=== PATIENT | female | born 1965 | race Caucasian/White ===

== ENCOUNTER 2020-12-08 13:04 | Emergency (ER) | payer SELFPAY ==
--- OUTSIDE RECORDS SUMMARY | 2020-12-08 13:06 | XMS REPORT | Continuity of Care Document ---
:1965 Author Organization [facility] t Address [address] [place] [address] Care Team Providers Name Role Phone Asked, Pcp Primary Care Physician Unavailable Doctor Unassigned, Name Attending Clinician Unavailable Terrence NULL, E Attending Clinician Aquiles NULL Attending Clinician Patricia FRANZ Attending Clinician Problems Condition Condition Condition Status Onset Resolution Last Treating Co mments Source Name Details Category Date Date Treatment Clinician Date Cirrhosis Cirrhosis Disease Active [facility] 8-14 [facility] 00:00: st 00 Hepatitis Hepatitis Disease Active [facility] B B 01-13 [facility] 00:00: st 00 Hepatitis Hepatitis Disease Active [facility] C C 01-13 [facility] 00:00: st 00 Right Right Disease Active [facility] lower lower 01-11 [facility] quadrant quadrant 00:00: st abdominal abdominal 00 pain pain Type 2 Type 2 Disease Active [facility] diabetes diabetes 01-11 [facility] i mellitus mellitus 00:00: st without without 00 complicati complicati on on Allergies, Adverse Reactions, Alerts This patient has no known allergies or adverse reactions. Social History Social Habit Start Date Stop Date Quantity Comments Source History of tobacco Cigarette Smoker [facility] use [facility] Cigarettes smoked 2016-01-12 2016-01-12 [facility] current (pack per 00:00:00 00:00:[address] ) - Reported Cigarette 2016-01-12 2016-01-12 [facility] pack-years 00:00:00 00:00:00 [facility] Alcohol intake 2016-01-12 2016-01-12 Current [facility] 00:00:00 00:00:00 non-drinker of [facility] alcohol (finding) Sex Ass[birth year] At [birth year] [facility] 00:00:00 00:00:00 [facility] Smoking Status Start Date Stop Date Source Current every day smoker 2016-01-12 00:00:00 Norman Lopezist Medications Ordered Filled Start Stop Current Ordering Indication Dosage Frequency Signature Comments Components Source Medication Medication Date Date Medication? Clinician (SIG) Name Name metFORMIN Yes 1000mg Q.5D Take 1,000 [place] (GLUCOPHAGE 8-14 mg by [facility] ) 1000 MG 11:59: mouth 2 st tablet 10 (two) times a day with meals. gabapentin Yes 300mg QD Take 300 [place] (NEURONTIN) 8-14 mg by [facility] 300 MG 11:59: mouth st capsule 10 daily. gabapentin Yes 600mg QD Take 600 [place] (NEURONTIN) 8-14 mg by [facility] 600 MG 11:59: mouth st tablet 10 nightly. methocarbam Yes 750mg Q.5D Take 750 [place] ol 8-14 mg by [facility] (ROBAXIN) 11:59: mouth 2 st 750 MG 10 (two) tablet times a day. insulin NPH Yes 40U Q.5D Inject 40 [place] and regular 8-14 Units [facility] human 11:59: under the st (HumuLIN 10 skin 2 70/30) 100 (two) unit/mL times a (70-30) day with injection meals. lactulose Yes 10g [id number] Take 10 g [place] 10 gram/15 8-14 [id number] by mouth 3 [facility] mL solution 11:59: 3D (three) st 10 times a day. omeprazole Yes 20mg QD Take 20 mg [place] (PriLOSEC) 8-14 by mouth Metho di 20 MG 11:59: daily. st capsule 10 multivitami 2015- Yes 1{tbl} QD Take 1 [place] n 8-14 tablet by [facility] (THERAGRAN) 11:59: mouth st tablet 10 daily. ibuprofen Yes 800mg Q6H Take 800 [facility] (ADVIL,MOTR 8-14 mg by [facility] IN) 800 MG 11:59: mouth st tablet 10 every 6 (six) hours as needed for mild pain. traMADol Yes 50mg Q6H Take 50 mg [facility] (ULTRAM) 50 8-14 by mouth Meth selin mg tablet 11:59: every 6 st 10 (six) hours as needed for moderate pain. UNKNOWN TO Yes 1{tbl} QD Take 1 [facility] PATIENT 8-14 tablet by [facility] 11:59: mouth st 10 nightly. Cholestero l Medication Immunizations Ordered Immunization Filled Immunization Date Status Commen ts Source Name Name [employer] SARS-CoV-2 2020-08-12 Completed MD And erson Vaccination 00:00:00 Procedures This patient has no known procedures. Plan of Care Planned Activity Planned Date Details Comments Source Future Scheduled 2020-12-31 INFLUENZA VACCINE [place] [facility] 00:00:00 [code = INFLUENZA VACCINE] Future Scheduled 2017-12-23 BREAST CANCER [facility] Test 00:00:00 SCREENING [code = BREAST CANCER SCREENING] Future Scheduled 2017-12-23 COLONOSCOPY SCREENING [place] [facility] Test 00:00:00 [code = COLONOSCOPY SCREENING] Future Scheduled 2017-12-23 SHINGLES VACCINES [place] [facility] 00:00:00 (#1) [code = SHINGLES VACCINES (#1)] Future Scheduled 1988-12-23 Screening for [facility] Test 00:00:00 malignant neoplasm of cervix (procedure) [code = 374603725] Future Scheduled 1979 COVID-19 VACCINE (1) [facility] Test 00:00:00 [code = COVID-19 VACCINE (1)] Encounters Start End Encounter Admission Attending Care Care Encounter Source Date/Time Date/Time Type Type Clinicians Facility Department ID 2020-12-01 2020-12-01 Orders Doctor ELODIA [id number] 00:00:00 00:00:00 Only Unassigned, MAGGIE [id number] [place] [facility] [id number] 2020-11-21 2020-11-21 [facility] [id number] 00:00:00 00:00:00 Management Jourdan E PRIMARY [id number] CARE [id number] [facility] [id number] 2020-11-19 2020-11-19 [facility] [id number] 08:18:00 08:50:00 Yazan Kapoor [id number] [place] [id number] [place] [id number] 2020-11-19 2020-11-19 Orders Doctor ELODIA [id number] 00:00:00 00:00:00 Only Unassigned, MAGGIE [id number] [place] [facility] [id number] 2020-11-18 2020-11-18 [facility] [id number] 00:00:00 00:00:00 Management Jourdan E PRIMARY [id number] CARE [id number] [facility] [id number] 2020-11-06 2020-11-06 Transition Erin Gomez [id number] 00:00:00 00:00:00 of Care Leti Sharma [id number] [place] [id number] 2020-08-12 2020-08-12 Outpatient [facility] [id number] 12:07:04 12:07:04 Fred o n Results This patient has no known results.
[2020-12-08 15:07] LABS: Basophils % 0.4 % (0-1.3); Hematocrit 27.4 % (36.0-45.0); Lymphocytes % 15.9 % (15.3-44.8); MPV 10.1 fL (7.6-11.3); RBC Red Blood Cell Count 3.36 M/uL (3.86-4.86)
[2020-12-08] MEDS ORDERED: MORPHINE 4 MG/ML SYR ONE ×2 (15:20→20:40)
[2020-12-08] MEDS ORDERED: ONDANSETRON 4 MG/2 ML VIAL ONE ×2 (15:20→16:32)
[2020-12-08] MEDS ORDERED: PANTOPRAZOLE 40 MG INJ ONE ×2 (15:21→16:52)
[2020-12-08 15:44] LABS: Albumin 3.4 g/dL (3.4-5.0); Bilirubin Direct 0.1 mg/dL (0-0.2); Bilirubin Total 0.4 mg/dL (0.2-1.0)
[2020-12-08 16:37] LABS: Anisocytosis 2+; Blood Morphology Comment NOTED (NOT SEEN); Platelet Estimate ADEQ; Polychromasia 1+; White Blood Cell Scan OK (OK)
[2020-12-08] MEDS ORDERED: NA CHLORIDE 0.9% 1,000 ML ONE (16:42)
[2020-12-08] MEDS ORDERED: NA CHLORIDE 0.9% 250 ML ONE ×2 (16:52→19:06)
--- NOTE | 2020-12-08 18:32 | EDPHYS ---
Physician Documentation [facility] Name: Cheeynne Mcgill Age: 54 yrs Sex: Female : 1965 Arrival Date: 12/08/2020 Time: 13:11 Bed 3 Private MD: ED Physician Michael Perkins HPI: 12/08 13:32 This 54 yrs old Female presents to ER via EMS with complaints of Vomiting - jmm blood. 13:32 The patient presents to the emergency department with nausea, vomiting. Onset: The jmm symptoms/episode began/occurred acutely, today. Possible causes: flare up of bowel problem. The symptoms are aggravated by nothing. The symptoms are alleviated by nothing. This is a 54 year old female with a history of DM, cirrhosis, that presents to the ED with an episode of vomiting blood. This has happened once before. Denies dark stool. Patient is also complains of lower back pain after the episode of vomiting. . Historical: - Allergies: 13:14 No Known Allergies; zb - Home Meds: 13:14 metformin 1,000 mg Oral tr24 2 tabs once daily [Active]; Humulin 70/30 100 unit/mL zb (70-30) Sub-Q susp 80 unit twice a day [Active]; - PMHx: 13:14 Diabetes - NIDDM; Hepatitis; low platelets; splenomegaly; Cirrhosis of liver; zb - Immunization history:: Adult Immunizations up to date, Client reports receiving the 2nd dose of the Covid vaccine, Date received: October 2020 Received [facility] . - Social history:: Smoking status: Reported history of juuling and/or vaping. ROS: 13:32 Constitutional: Negative for fever, chills, and weight loss, Cardiovascular: Negative jmm for chest pain, palpitations, and edema, Respiratory: Negative for shortness of breath, cough, wheezing, and pleuritic chest pain. 13:32 Abdomen/GI: Positive for vomiting, hematemesis. 13:32 Back: Positive for pain with movement. 13:32 All other systems are negative. Exam: 13:32 Constitutional: This is a well developed, well nourished patient who is awake, alert, jmm and in no acute distress. Head/Face: atraumatic. Eyes: EOMI, no conjunctival erythema appreciated ENT: Moist Mucus Membranes Neck: Trachea midline, Supple Chest/axilla: Normal chest wall appearance and motion. Cardiovascular: Regular rate and rhythm. No edema appreciated Respiratory: Normal respirations, no respiratory distress appreciated Abdomen/GI: Non distended, soft Back: Normal ROM Skin: General appearance color normal MS/ Extremity: Moves all extremities, no obvious deformities appreciated, no edema noted to the lower extremities Neuro: Awake and alert, normal gait Psych: Behavior is normal, Mood is normal, Patient is cooperative and pleasant Vital Signs: 13:11 BP 105 / 62; Pulse 82; Resp 18; Temp 97.2; Pulse Ox 100% on R/A; Weight 61.23 kg; zb Height 4 ft. 10 in. (147.32 cm); Pain 8/10; 13:30 BP 105 / 62; Pulse 81; Resp 18; Pulse Ox 100% on R/A; zb 14:30 BP 125 / 80; Pulse 84; Resp 18; Pulse Ox 100% on R/A; zb 15:20 BP 122 / 89; Pulse 87; Resp 16; Pulse Ox 100% ; zb 16:00 BP 96 / 69 Supine; Pulse 85; Resp 16; Pulse Ox 100% ; zb 16:04 BP 73 / 51 Sitting; Pulse 89; Resp 16; Pulse Ox 100% on R/A; zb 16:07 BP 80 / 64 Standing; Pulse 86; Resp 16; Pulse Ox 99% on R/A; zb 17:56 BP 99 / 88; Pulse 94; Resp 16; Pulse Ox 100% on R/A; zb 19:00 BP 149 / 99; Pulse 88; Resp 18; Pulse Ox 99% on R/A; zb 20:00 BP 114 / 83; Pulse 86; Resp 16; Pulse Ox 99% on R/A; zb 07/10 00:00 BP 119 / 86; Pulse 97; Resp 16; Pulse Ox 99% on R/A; rr5 01:06 BP 126 / 90; Pulse 89; Resp 16; Pulse Ox 98% on R/A; rr5 03:07 BP 117 / 66; Pulse 85; Resp 16; Pulse Ox 98% on R/A; ak2 06:07 BP 125 / 75; Pulse 93; Resp 14; Pulse Ox 97% on R/A; ak2 08:23 BP 113 / 63; Pulse 96; Resp 19; Pulse Ox 98% on R/A; ae4 10:51 BP 121 / 70; Pulse 95; Resp 14; Pulse Ox 98% on R/A; Pain 0/10; ap3 11:34 BP 112 / 85; Pulse 96; Pulse Ox 98% on R/A; ap3 12/08 13:11 Body Mass Index 28.21 (61.23 kg, 147.32 cm) zb Procedures: 12/08 18:33 Central Line: the site was prepped with Betadine, a triple lumen catheter was inserted, jackson in the right femoral vein, in 1 attempts. placement was verified, by blood return, the site was dressed with using sterile technique, the patient tolerated the procedure, well. MDM: 13:34 Patient medically screened. jackson 16:17 Data reviewed: vital signs, nurses notes. Counseling: I had a detailed discussion with jackson the patient and/or guardian regarding: the historical points, exam findings, and any diagnostic results supporting the discharge/admit diagnosis, lab results, the need to transfer to another facility. 18:30 ED course: I discussed the patient with Dr. Wilson whom accepted transfer. . [facility] 12/09 01:45 ED course: Transfer was initially accepted by Dr. Rivera out of [facility]. I jackson then received a call approx 3 hours later by another hospitalist Dr. Amos whom declined admission due to no nephrology. FORMERLY [facility], [facility], [facility], and [facility] ICU's. . 01:53 Transition of care: After a detail discussion of the patient's case, care is [facility] transferred to Michael Perkins MD. 02:27 ED course: Report given to Delfina Cardoza NP at [facility] in [address] Asked to initiate Bicarb drip which has been ordered. Now awaiting admin approval, then to arrange for transportation. . 12/08 13:26 Order name: Basic Metabolic Panel [facility] 12/08 13:26 Order name: CBC with Diff [facility] 12/08 13:26 Order name: Hepatic Function [facility] 12/08 13:26 Order name: Lipase [facility] 12/08 13:26 Order name: Type And Screen [facility] 12/08 13:27 Order name: Basic Metabolic Panel; Complete Time: 15:59 EDMS 12/08 13:27 Order name: Liver (Hepatic) Function; Complete Time: 15:59 EDMS 12/08 13:27 Order name: CBC with Automated Diff; Complete Time: 16:42 EDMS 12/08 13:27 Order name: Lipase; Complete Time: 15:59 EDMS 12/08 15:12 Order name: Guiac; Complete Time: 18:19 em1 12/08 16:37 Order name: CBC Smear Scan; Complete Time: 16:42 EDMS 12/08 17:48 Order name: Packed RBC Leukored EDTN 12/08 21:10 Order name: BMP; Complete Time: 22:34 m 12/08 21:42 Order name: SARS-COV-2 RT PCR; Complete Time: 21:48 EDMS 12/09 01:55 Order name: CBC with Diff; Complete Time: 06:17 rr5 12/09 02:20 Order name: CBC Smear Scan; Complete Time: 06:17 EDMS 12/09 05:37 Order name: CBC with Diff; Complete Time: 06:17 rr5 12/09 06:24 Order name: Chem 7; Complete Time: 07:43 em 12/09 07:48 Order name: Blood Culture Adult (2) jr8 12/08 13:26 Order name: IV Saline Lock; Complete Time: 14:57 [facility] 12/08 13:26 Order name: Labs collected and sent; Complete Time: 14:57 [facility] 12/08 13:26 Order name: Misc. Order: gown patient; Complete Time: 15:19 [facility] 12/08 15:46 Order name: Orthostatic Blood Pressure; Complete Time: 16:06 [facility] 12/08 17:28 Order name: Central Line Kit; Complete Time: 18:13 [facility] 12/08 17:37 Order name: Transfuse; Complete Time: 17:56 ss 12/09 02:27 Order name: NPO; Complete Time: 02:44 la1 Administered Medications: 12/08 15:11 Drug: morphine 4 mg {Note: RASS +1.} Route: IVP; Site: right wrist; zb 15:30 Follow up: Response: No adverse reaction; No change in condition; Pain is decreased; zb RASS: Alert and Calm (0) 15:11 Drug: Zofran (Ondansetron) 4 mg Route: IVP; Site: right wrist; zb 15:30 Follow up: Response: No adverse reaction; Marked relief of symptoms; Nausea is decreasedzb 15:11 Drug: ProTONIX (pantoprazole) 40 mg Route: IVP; Site: right wrist; zb 15:30 Follow up: Response: No adverse reaction; Marked relief of symptoms zb 16:24 Drug: NS 0.9% 1000 ml Route: IV; Rate: 1 bolus; Site: right wrist; zb 18:41 Follow up: Response: No adverse reaction; IV Status: Completed infusion; IV Intake: zb 1000ml 16:24 Drug: Zofran (Ondansetron) 4 mg Route: IVP; Site: right wrist; zb 16:55 Follow up: Response: No adverse reaction; Marked relief of symptoms; Nausea is decreasedzb 16:30 Drug: ProTONIX (pantoprazole) 8 mg/hr Route: IV; Rate: 25 ml/hr; Site: right wrist; zb 12/09 12:09 Follow up: IV Status: Infusion continued upon transfer ap3 12/08 20:21 Drug: morphine 4 mg {Note: RASS +1.} Route: IVP; Site: right femoral; zb 21:57 Follow up: Response: No adverse reaction; Marked relief of symptoms; Pain is decreased; zb RASS: Alert and Calm (0) 21:10 CANCELLED (Duplicate Order): Kayexalate (polystyrene) 60 grams PO once jmm 22:57 Drug: Calcium Gluconate 1 grams Route: IVPB; Infused Over: 60 mins; Site: right femoral;zb 12/09 00:01 Follow up: Response: No adverse reaction; IV Status: Completed infusion; IV Intake: 50mlzb 12/08 22:57 Drug: Albuterol 2.5 mg Route: Inhalation; zb 22:57 Drug: Insulin Regular Human 10 units {Co-Signature: em (Syed Portillo RN).} Route: IVP; zb Site: right femoral; 23:44 Follow up: Response: No adverse reaction zb 22:57 Drug: D50W 50 ml Route: IVP; Site: right femoral; zb 23:44 Follow up: Response: No adverse reaction zb 23:27 Drug: Kayexalate (polystyrene) 60 grams Route: PO; zb 23:44 Follow up: Response: No adverse reaction zb 07/10 00:02 Drug: Albuterol 2.5 mg Route: Inhalation; zb 00:02 Follow up: Response: No adverse reaction; No change in condition zb : Follow up: Response: No adverse reaction zb 00:02 Follow up: Response: No adverse reaction zb 00:02 Drug: Albuterol 2.5 mg Route: Inhalation; zb 00:20 Drug: Zofran (Ondansetron) 4 mg Route: IVP; Site: right femoral; em 01:29 Follow up: Response: No adverse reaction; Marked relief of symptoms; Pain is decreased em 02:05 Drug: Octreotide Infusion (50 mcg/hr) - (Octreotide 500 mcg, NS 0.9% 500 ml) Route: IV; ak2 Rate: 50 ml/hr; Site: right femoral; 02:05 Drug: Octreotide Infusion (50 mcg/hr) - (Octreotide 500 mcg, NS 0.9% 500 ml) Route: IV; ae4 Rate: 50 ml/hr; Site: right femoral; 12:09 Follow up: IV Status: Infusion continued upon transfer ap3 02:43 Drug: D5W 1000 ml, Sodium Bicarbonate 150 mEq Route: IV; Rate: 100 calculated rate; rr5 Site: right forearm; 03:06 Drug: Octreotide 50 mcg Route: IV; Rate: calculated rate; Site: right femoral; ak2 08:06 Drug: Rocephin (cefTRIAXone) 1 grams Route: IV; Rate: calculated rate; Site: right ap3 wrist; 08:07 Follow up: IV Status: Completed infusion ap3 Disposition: 12/10 00:03 Co-signature as Attending Physician, Michael Perkins MD. [email or web address] Disposition Summary: 12/08/20 18:31 Transfer Ordered Transfer Location: Other Acute Care Facility [facility] Reason: Higher level of care jmm Condition: Stable jmm Problem: new jmm Symptoms: are unchanged jmm Accepting Physician: Delfina Cardoza STRAIGHT LINE EDGER(12/09/20 12:09) ap3 Diagnosis - Hematemesis jmm - Acute Kidney Injury jmm Forms: - Medication Reconciliation Form jmm - SBAR form jmm Signatures: Dispatcher [employer] Andrew Alaniz PA PA jmm Munoz, Edgar, RN RN Elida Yanes RN RN ss Luis Aguilar PA PA jr8 Saurabh Mayes, [employer]-C [employer]-Cla1 Nancy Allen, RN RN ap3 Carlos Monge, RN RN rr5 Gabriel Gordillo, MARIA M RN ae4 Michael Perkins MD MD 7 Carolina Medina RN RN zb Aris Hargrove [facility] Syed Portillo RN em Corrections: (The following items were deleted from the chart) 12/08 17:48 17:33 PACKED RBC LEUKORED -1+BB.LAB.BRZ ordered. EDMS EDMS 17:48 17:33 ABO/RH typing ordered. EDMS EDMS 17:48 17:33 Antibody Screen ordered. EDMS EDMS 18:32 18:31 Dr. Sheik paz [facility] 18:38 18:30 PACKED RBC LEUKORED -1+BB.LAB.BRZ ordered. EDMS EDMS 18:38 18:30 ABO/RH typing ordered. EDMS EDMS 18:38 18:30 Antibody Screen ordered. EDMS EDMS 20:35 16:34 CORONAVIRUS+MR.LAB.BRZ ordered. EDMS EDMS 21:10 21:07 Kayexalate (polystyrene) 60 grams PO once ordered. jackson paz 12/09 01:39 01:32 PACKED RBC LEUKORED -1+BB.LAB.BRZ ordered. EDMS EDMS 01:39 01:32 ABO/RH typing ordered. EDMS EDMS 01:39 01:32 Antibody Screen ordered. EDMS EDMS 02:28 12/08 18:32 Dr. Sheik paz la1 12/09 12:09 02:28 Delfina Cardoza NP la1 ap3
--- NOTE | 2020-12-08 18:32 | ER ---
Nurse's Notes [facility] Name: Cheyenne Mcgill Age: 54 yrs Sex: Female : 1965 Arrival Date: 12/08/2020 Time: 13:11 Bed 3 Private MD: Diagnosis: Hematemesis;Acute Kidney Injury Presentation: 12/08 13:11 Chief complaint: EMS states: Patient started vomiting blood about 1 hours ago. Called [facility] EMS. patient states this has happen before unsure of what cause it before. Not currently vomiting at this time. Coronavirus screen: At this time, the client does not indicate any symptoms associated with coronavirus-19. Ebola Screen: No symptoms or risks identified at this time. Initial Sepsis Screen: Does the patient meet any 2 criteria? No. Patient's initial sepsis screen is negative. Does the patient have a suspected source of infection? No. Patient's initial sepsis screen is negative. Risk Assessment: Do you want to hurt yourself or someone else? Patient reports no desire to harm self or others. Onset of symptoms was December 08, 2020. 13:11 Acuity: ABDULKADIR 3 zb 13:11 Method Of Arrival: EMS: [facility] zb 13:23 Chief complaint: spoke to family patient has history of vomiting blood. patient is zb suppose to have an endoscopy next week for some time of banding. last episode of vomiting blood was a couple mths ago. Patient PCP is Dr. Jourdan Ocampo. 12/09 02:26 Acuity: ABDULKADIR 2 em Triage Assessment: 12/08 13:24 General: Appears in no apparent distress. uncomfortable, Behavior is calm, cooperative, zb appropriate for age. Pain: Complains of pain in back and abdomen Pain currently is 8 out of 10 on a pain scale. Quality of pain is described as aching, tender, Pain began 2-weeks ago Alleviated by nothing. EENT: No deficits noted. Neuro: Level of Consciousness is awake, alert, obeys commands, Oriented to person, place, time, situation. Cardiovascular: Patient's skin is warm and dry. Respiratory: Airway is patent. GI: Abdomen is round Bowel sounds present X 4 quads. Abdomen is tender to palpation in right upper quadrant and right lower quadrant Reports lower abdominal pain, upper abdominal pain, diarrhea, bloody stool, nausea, vomiting. : No signs and/or symptoms were reported regarding the genitourinary system. Derm: Bruising that is dark purple, on abdomen. Musculoskeletal: Range of motion: intact in all extremities. Historical: - Allergies: 13:14 No Known Allergies; zb - Home Meds: 13:14 metformin 1,000 mg Oral tr24 2 tabs once daily [Active]; Humulin 70/30 100 unit/mL zb (70-30) Sub-Q susp 80 unit twice a day [Active]; - PMHx: 13:14 Diabetes - NIDDM; Hepatitis; low platelets; splenomegaly; Cirrhosis of liver; zb - Immunization history:: Adult Immunizations up to date, Client reports receiving the 2nd dose of the Covid vaccine, Date received: October 2020 Received [employer] . - Social history:: Smoking status: Reported history of juuling and/or vaping. Screenin:26 Abuse screen: Denies threats or abuse. Denies injuries from another. Nutritional zb screening: No deficits noted. Tuberculosis screening: No symptoms or risk factors identified. Fall Risk None identified. Assessment: 14:00 Reassessment: Patient appears in no apparent distress at this time. Patient and/or zb family updated on plan of care and expected duration. Pain level reassessed. Patient is alert, oriented x 3, equal unlabored respirations, skin warm/dry/pink. 15:00 Reassessment: Patient appears in no apparent distress at this time. Patient and/or zb family updated on plan of care and expected duration. Pain level reassessed. Patient is alert, oriented x 3, equal unlabored respirations, skin warm/dry/pink. 16:00 Reassessment: Patient appears in no apparent distress at this time. Patient and/or zb family updated on plan of care and expected duration. Pain level reassessed. Patient is alert, oriented x 3, equal unlabored respirations, skin warm/dry/pink. family at bedside. 17:00 Reassessment: Patient appears in no apparent distress at this time. Patient and/or zb family updated on plan of care and expected duration. Pain level reassessed. Patient is alert, oriented x 3, equal unlabored respirations, skin warm/dry/pink. family at bedside. Reassessment: family at bedside. 17:57 Reassessment: Patient appears in no apparent distress at this time. Patient and/or zb family updated on plan of care and expected duration. Pain level reassessed. Patient is alert, oriented x 3, equal unlabored respirations, skin warm/dry/pink. family at bedside. ecp at bedside placing central line. patient signed consent for for blood and central line. 18:30 Reassessment: Patient appears in no apparent distress at this time. Patient and/or zb family updated on plan of care and expected duration. Pain level reassessed. Patient is alert, oriented x 3, equal unlabored respirations, skin warm/dry/pink. IV medication infusing. 19:31 Reassessment: Patient appears in no apparent distress at this time. Patient and/or zb family updated on plan of care and expected duration. Pain level reassessed. Patient is alert, oriented x 3, equal unlabored respirations, skin warm/dry/pink. IV medication and blood infusing at this time. 20:15 Reassessment: Patient appears in no apparent distress at this time. Patient and/or zb family updated on plan of care and expected duration. Pain level reassessed. Patient is alert, oriented x 3, equal unlabored respirations, skin warm/dry/pink. blood infusing c/o pain. notified ecp. medication given. 21:15 Reassessment: Patient appears in no apparent distress at this time. Patient and/or zb family updated on plan of care and expected duration. Pain level reassessed. Patient is alert, oriented x 3, equal unlabored respirations, skin warm/dry/pink. family at bedside. blood infusing. 22:30 Reassessment: Patient appears in no apparent distress at this time. Patient and/or zb family updated on plan of care and expected duration. Pain level reassessed. Patient is alert, oriented x 3, equal unlabored respirations, skin warm/dry/pink. family remains at bedside. 23:48 Reassessment: Patient appears in no apparent distress at this time. Patient and/or zb family updated on plan of care and expected duration. Pain level reassessed. Patient is alert, oriented x 3, equal unlabored respirations, skin warm/dry/pink. family remains at bedside. IV protonix drip continues to infuse. no c/o pain at this time. waiting for transfer. 12/09 00:15 Reassessment: pt had an episode of vomiting, dark blood noted, provider notified. em 01:20 Reassessment: Patient and/or family updated on plan of care and expected duration. Pain em level reassessed. Patient is alert, oriented x 3, equal unlabored respirations, skin warm/dry/pink. Patient states feeling better. 03:07 Reassessment: Patient and/or family updated on plan of care and expected duration. Pain ak2 level reassessed. 03:56 General: [facility], maria m bahena. ak2 05:35 Reassessment: charge nurse relayed the Hgb to hospitalist with order to hold for now rr5 the 2nd unit, will repeat the CBC 4 hours from the last CBC result. 06:07 Reassessment: Patient and/or family updated on plan of care and expected duration. Pain ak2 level reassessed. 08:28 Reassessment: nurse attempted report to receiving facility. Nurse spoke to MARIA M Cheema for ap3 the report. [place] through the report, the receiving nurse stated that they do not receive patients with femoral lines and would have to call me back. Charge nurse updated. 08:52 Reassessment: Nurse Piece Dyer[facility] called via telephone to report ae4 that "hopefully within the next 30 minutes" there will be a new room assignment for the patient and that she will call back when the room is assigned. 11:25 General: report called to [facility]. ap3 Vital Signs: 12/08 13:11 BP 105 / 62; Pulse 82; Resp 18; Temp 97.2; Pulse Ox 100% on R/A; Weight 61.23 kg; zb Height 4 ft. 10 in. (147.32 cm); Pain 8/10; 13:30 BP 105 / 62; Pulse 81; Resp 18; Pulse Ox 100% on R/A; zb 14:30 BP 125 / 80; Pulse 84; Resp 18; Pulse Ox 100% on R/A; zb 15:20 BP 122 / 89; Pulse 87; Resp 16; Pulse Ox 100% ; zb 16:00 BP 96 / 69 Supine; Pulse 85; Resp 16; Pulse Ox 100% ; zb 16:04 BP 73 / 51 Sitting; Pulse 89; Resp 16; Pulse Ox 100% on R/A; zb 16:07 BP 80 / 64 Standing; Pulse 86; Resp 16; Pulse Ox 99% on R/A; zb 17:56 BP 99 / 88; Pulse 94; Resp 16; Pulse Ox 100% on R/A; zb 19:00 BP 149 / 99; Pulse 88; Resp 18; Pulse Ox 99% on R/A; zb 20:00 BP 114 / 83; Pulse 86; Resp 16; Pulse Ox 99% on R/A; zb 12/09 00:00 BP 119 / 86; Pulse 97; Resp 16; Pulse Ox 99% on R/A; rr5 01:06 BP 126 / 90; Pulse 89; Resp 16; Pulse Ox 98% on R/A; rr5 03:07 BP 117 / 66; Pulse 85; Resp 16; Pulse Ox 98% on R/A; ak2 06:07 BP 125 / 75; Pulse 93; Resp 14; Pulse Ox 97% on R/A; ak2 08:23 BP 113 / 63; Pulse 96; Resp 19; Pulse Ox 98% on R/A; ae4 10:51 BP 121 / 70; Pulse 95; Resp 14; Pulse Ox 98% on R/A; Pain 0/10; ap3 11:34 BP 112 / 85; Pulse 96; Pulse Ox 98% on R/A; ap3 12/08 13:11 Body Mass Index 28.21 (61.23 kg, 147.32 cm) zb ED Course: 12/08 13:11 Patient arrived in ED. zb 13:14 Triage completed. zb 13:22 Andrew Ghotra PA is PHCP. [facility] 13:22 Juan A Lamb MD is Attending Physician. [facility] 13:26 Carolina Medina, MARIA M is Primary Nurse. zb 13:30 Patient has correct armband on for positive identification. Bed in low position. Call zb light in reach. Adult w/ patient. Pulse ox on. NIBP on. Door closed. Noise minimized. 14:45 Inserted saline lock: 22 gauge in right ,using aseptic technique. wrist/thumb Blood sv collected. Flushed right with 2 ml normal saline. 15:20 Arm band placed on. zb 15:45 Notified Nurse Practitioner and/or Physician Pelota Maker of a critical lab result(s), sv potassium-6.0, CO2-13, creatinine-7.21. 19:01 Isabelle from [facility] transfer center called to inform that this pt transfer is now on hold em1 and to not transport until contacted further. 21:[address] [facility] transfer center called and denied the transfer request due to not tt3 having services needed. 21:54 Initiated transfer at [facility] with Yariel Petty. Was informed the request would be tt3 denied due to capacity. 22:03 Initiated transfer at [facility]. Was informed the only campus with an ICU bed was [place] [address] but did not have the services needed ultimately. 22:25 Initiated transfer at [facility] with Sofía. Stated that the [facility], [address], [facility], [facility] and [place] were all at capacity and did not have the services needed pest control worker. 22:59 Initiated transfer at [facility]. Was informed the request would be denied due to holding tt3 in the ER. 23:22 Called [facility] to initiate transfer and was on hold. tt3 23:38 Connected with Patito Mariscal at [facility] and stated they are on ICU saturation so tt3 the request would be denied. 23:45 Sue Fregoso RN, Pump Mechanic, called [facility] to initiate transfer tt3 and was informed that they were at capacity. 23:47 Sue Fregoso RN, Pump Mechanic stated she would try [facility] tt3 Center. Waiting for results. 23:50 Sue Fregoso RN, Pump Mechanic passed on that [facility] had tt3 to deny due to not having GI services. 23:52 Sue Fregoso RN, Pump Mechanic spoke with and received information from MARIA M Hurd, tt3 Pump Mechanic with [facility] in [place] and stated they had beds available. Vannessa asked for pt demographics to be faxed to [phone]. 12/09 00:00 Sue Fregoso RN, Pump Mechanic tried to initiate transfer with [facility] in [address], was informed they were at capacity. 00:30 Faxed pt demographics and chart to [facility] to darrel Hurd RN, Pump Mechanic to per her request. Will follow up in 15-20 minutes to verify that she received the pts chart. 01:30 Followed up with Vannessa at [facility] and was informed she tt3 did not receive the fax. Fax was resent and Sue Fregoso RN, Pump Mechanic sent the fax as well. Sue stated her fax went through and discovered the fax from ER did not go through. 01:53 Attending Physician role handed off by Juan A Lamb MD [facility] 01:53 Michael Perkins MD is Attending Physician. [facility] 02:00 Called [facility] to initiate transfer. Spoke tt3 with MARIA M Maza, Pump Mechanic and was told they had no beds, that they were holding in the ER. 02:05 Tried to follow up with Vannessa at [facility] and got no tt3 answer. Voicemail was left and requested for her to call back at [phone]. 02:12 Vannessa called back and stated that she had the [employer] pest control worker's number and name for us to tt3 call for Doc to Doc. If accepted, Vannessa will call back with admin approval. 02:20 Saurabh Mayes NP, Hospitalist, called to do Doc to Doc with Delfina Cardoza NP. Was tt3 informed after consultation that they would call back with admin approval. 03:36 Vannessa called back and gave admin approval. The accepting provider is Delfina Cardoza, tt3 [employer]. Nani accepted at 02:52. Nurse to call report to . The pt is going to [facility] to [facility] Bed 2. 04:00 Called depict, informed by Francheska that they are not flying due to tt3 weather. 04:02 Spoke with Elida at [facility]. Was informed they were not flying due to weather. tt3 04:05 Per Richard with [facility] "would not have be able to until after 06:00.", per tt3 Duyen with [facility] "[place] and [place] trucks are out of service today.", per [facility] "they have no trucks available.". 04:12 Per Elida at [facility], they can recheck weather at 06:00. Provided [facility] tt3 number. When called, just constant ringing, no answer. Information was passed on to Sue Fregoso RN, Pump Mechanic. 04:21 Updated MARIA M Hurd, Pump Mechanic at [facility] on the tt3 delay of transfer due to no life flight services flying and no ground ems trucks available until around 06:00. Stated she would pass on the information to the day shift. Information passed on to Saurabh Mayes NP, Hospitalist. 05:53 Followed up and had [facility] and [facility] recheck weather to request tt3 flight. Both declined again due to weather. 06:23 Per [facility], the closest eta would be in between 08:00 - 09:00. Working on tt3 getting volunteers to keep all 3 trucks locally to send one out. If they aren't able to get volunteers to come in, then they will do what they can. 06:[address] [facility] Transfer Center called and stated that administration was tt3 involved with the transfer request. Stated she told RAMON Marques, pt provider to have someone call back if we had issues after initiating at [facility]. Staff was not informed of that. Isabelle re-initiated the transfer. 07:10 Yumiko Villalobos from [facility] transfer center called for updated vitals and lab values. em1 07:48 [facility] transfer center called to conduct doc to doc with our provider and their em1 hospitalist and product support manager; acceptance and admin approval given at this time also. 08:05 PHCP role handed off by Andrew Ghotra PA jr8 08:05 Luis Aguilar PA is PHCP. jr8 08:08 Primary Nurse role handed off by Carolina Medina, MARIA M jl7 08:08 Nancy Allen, MARIA M is Primary Nurse. jl7 08:45 report attempted with [facility]; reporting nurse told by receiving nurse that she was not em1 able to take this pt due to the central line access. [facility] transfer center notified, transfer center asks if we can continue to hold this pt until a more appropriate bed is arranged, approximately 1 to 2 hours. 12:08 No provider procedures requiring assistance completed. Patient transferred, IV remains ap3 in place. Administered Medications: 07/09 15:11 Drug: morphine 4 mg {Note: RASS +1.} Route: IVP; Site: right wrist; zb 15:30 Follow up: Response: No adverse reaction; No change in condition; Pain is decreased; zb RASS: Alert and Calm (0) 15:11 Drug: Zofran (Ondansetron) 4 mg Route: IVP; Site: right wrist; zb 15:30 Follow up: Response: No adverse reaction; Marked relief of symptoms; Nausea is decreasedzb 15:11 Drug: ProTONIX (pantoprazole) 40 mg Route: IVP; Site: right wrist; zb 15:30 Follow up: Response: No adverse reaction; Marked relief of symptoms zb 16:24 Drug: NS 0.9% 1000 ml Route: IV; Rate: 1 bolus; Site: right wrist; zb 18:41 Follow up: Response: No adverse reaction; IV Status: Completed infusion; IV Intake: zb 1000ml 16:24 Drug: Zofran (Ondansetron) 4 mg Route: IVP; Site: right wrist; zb 16:55 Follow up: Response: No adverse reaction; Marked relief of symptoms; Nausea is decreasedzb 16:30 Drug: ProTONIX (pantoprazole) 8 mg/hr Route: IV; Rate: 25 ml/hr; Site: right wrist; zb 12/09 12:09 Follow up: IV Status: Infusion continued upon transfer ap3 12/08 20:21 Drug: morphine 4 mg {Note: RASS +1.} Route: IVP; Site: right femoral; zb 21:57 Follow up: Response: No adverse reaction; Marked relief of symptoms; Pain is decreased; zb RASS: Alert and Calm (0) 21:10 CANCELLED (Duplicate Order): Kayexalate (polystyrene) 60 grams PO once jmm 22:57 Drug: Calcium Gluconate 1 grams Route: IVPB; Infused Over: 60 mins; Site: right femoral;zb 12/09 00:01 Follow up: Response: No adverse reaction; IV Status: Completed infusion; IV Intake: 50mlzb 12/08 22:57 Drug: Albuterol 2.5 mg Route: Inhalation; zb 22:57 Drug: Insulin Regular Human 10 units {Co-Signature: em (Syed Portillo RN).} Route: IVP; zb Site: right femoral; 23:44 Follow up: Response: No adverse reaction zb 22:57 Drug: D50W 50 ml Route: IVP; Site: right femoral; zb 23:44 Follow up: Response: No adverse reaction zb 23:27 Drug: Kayexalate (polystyrene) 60 grams Route: PO; zb 23:44 Follow up: Response: No adverse reaction zb 12/09 00:02 Drug: Albuterol 2.5 mg Route: Inhalation; zb 00:02 Follow up: Response: No adverse reaction; No change in condition zb 00:02 Follow up: Response: No adverse reaction zb 00:02 Follow up: Response: No adverse reaction zb 00:02 Drug: Albuterol 2.5 mg Route: Inhalation; zb 00:20 Drug: Zofran (Ondansetron) 4 mg Route: IVP; Site: right femoral; em 01:29 Follow up: Response: No adverse reaction; Marked relief of symptoms; Pain is decreased em 02:05 Drug: Octreotide Infusion (50 mcg/hr) - (Octreotide 500 mcg, NS 0.9% 500 ml) Route: IV; ak2 Rate: 50 ml/hr; Site: right femoral; 02:05 Drug: Octreotide Infusion (50 mcg/hr) - (Octreotide 500 mcg, NS 0.9% 500 ml) Route: IV; ae4 Rate: 50 ml/hr; Site: right femoral; 12:09 Follow up: IV Status: Infusion continued upon transfer ap3 02:43 Drug: D5W 1000 ml, Sodium Bicarbonate 150 mEq Route: IV; Rate: 100 calculated rate; rr5 Site: right forearm; 03:06 Drug: Octreotide 50 mcg Route: IV; Rate: calculated rate; Site: right femoral; ak2 08:06 Drug: Rocephin (cefTRIAXone) 1 grams Route: IV; Rate: calculated rate; Site: right ap3 wrist; 08:07 Follow up: IV Status: Completed infusion ap3 Intake: 12/08 18:41 IV: 1000ml; Total: 1000ml. zb 12/09 00:01 IV: 50ml; Total: 1050ml. zb Outcome: 12/08 18:31 ER care complete, transfer ordered by MD. paz 12/09 12:08 Transferred by ground EMS to [facility]. ap3 Condition: stable Instructed on the need for transfer, Demonstrated understanding of Transfer 12:09 Patient left the ED. ap3 Signatures: Kerry Ibrahim, RN Andrew Castillo PA PA jmm Munoz, Edgar, RN MARIA M em Isaac Gill em1 Luis Aguilar PA PA jr8 Daniel Bhakta RN RN jl7 Nancy Allen RN RN ap3 Carlos Monge RN RN rr5 Gabriel Gordillo RN RN ae4 Sachin Reddy tt3 Carolina Medina RN RN zAris Hayes2 Syed Portillo RN em Corrections: (The following items were deleted from the chart) 12/08 21:18 21:15 Reassessment: Patient appears in no apparent distress at this time. Patient zb and/or family updated on plan of care and expected duration. Pain level reassessed. Patient is alert, oriented x 3, equal unlabored respirations, skin warm/dry/pink. family at bedside. zb 21:18 20:15 Reassessment: Patient appears in no apparent distress at this time. Patient zb and/or family updated on plan of care and expected duration. Pain level reassessed. Patient is alert, oriented x 3, equal unlabored respirations, skin warm/dry/pink. zb 23:42 23:41 Connected with Patito Mariscal at [facility] and stated they are on ICU tt3 saturation so the request would be denied. tt3 12/09 03:59 03:56 General: report called to [facility] icu, rn. ak2 ak2 08:10 04:00 Octreotide Infusion (50 mcg/hr) - (Octreotide 500 mcg, NS 0.9% 500 ml) IV at 50 ae4 ml/hr in right femoral ae4 08:54 08:52 Reassessment: Nurse Piece Dyer called via telephone to report that "hopefully ae4 within the next 30 minutes" there will be a new room assignment for the patient and that she will call back when the room is assigned. ae4
[2020-12-08 22:26] LABS: Potassium 5.7 mmol/L (3.5-5.1)
[2020-12-08] MEDS ORDERED: ALBUTEROL 2.5 MG/3 ML NEB SOL ONE ×2 (23:07→23:10)
[2020-12-08] MEDS ORDERED: INSULIN -REGULAR HUMAN 50 UNIT/0.5 ML ML ONE (23:08)
[2020-12-08] MEDS ORDERED: D50W 25 GM/50 ML SYRINGE IV ONE (23:09)
[2020-12-08] MEDS ORDERED: CALCIUM GLUCONATE 1 GM IVPB 1 GM/50 ML BAG IV ONE (23:09)
[2020-12-08] MEDS ORDERED: SOD POLYSTYREN SUL 15 GM/60 ML UCUP ONE (23:09)
[2020-12-09] MEDS ORDERED: ONDANSETRON 4 MG/2 ML VIAL ONE ×2 (00:41→02:35)
[2020-12-09 02:12] LABS: Absolute Lymphocytes (CBC) 1.8 K/uL (0.7-4.9); Basophils % 0.3 % (0-1.3); Hematocrit 31.9 % (36.0-45.0); Lymphocytes % 15.6 % (15.3-44.8); MPV 9.9 fL (7.6-11.3); RBC Red Blood Cell Count 3.88 M/uL (3.86-4.86)
[2020-12-09] MEDS ORDERED: OCTREOTIDE ACETATE 100 MCG/ML ONE (02:21)
[2020-12-09] MEDS ORDERED: NA CHLORIDE 0.9% 500 ML ONE (02:21)
[2020-12-09] MEDS ORDERED: NA CHLORIDE 0.9% 250 ML ONE (02:26)
[2020-12-09] MEDS ORDERED: PANTOPRAZOLE 40 MG INJ ONE (02:26)
[2020-12-09 02:40] LABS: Anisocytosis 1+; Blood Morphology Comment NOTED (NOT SEEN); Hypochromasia 1+; Macrocytosis 1+; Platelet Estimate DECR; Polychromasia 1+; White Blood Cell Scan OK (OK)
[2020-12-09 02:41] LABS: Ovalocytes 1+
[2020-12-09] MEDS ORDERED: SODIUM BICARB 50 MEQ/50ML VIAL ONE (02:54)
[2020-12-09] MEDS ORDERED: D5W 1,000 ML IV ONE (02:54)
[2020-12-09] MEDS ORDERED: METOCLOPRAMIDE 10 MG/2mL INJ ONE (02:56)
[2020-12-09 06:07] LABS: Absolute Lymphocytes (CBC) 1.5 K/uL (0.7-4.9); Basophils % 0.1 % (0-1.3); Hematocrit 28.7 % (36.0-45.0); Lymphocytes % 13.6 % (15.3-44.8); MPV 9.1 fL (7.6-11.3); RBC Red Blood Cell Count 3.54 M/uL (3.86-4.86)
[2020-12-09 07:11] LABS: Potassium 4.3 mmol/L (3.5-5.1)
[2020-12-09] MEDS ORDERED: CEFTRIAXONE/SWI 1gm 1 GM/10 ML SYR ONE (08:19)
[2020-12-09 12:15] VITALS: TEMP 97.2
[2020-12-09 12:37] VITALS: O2SAT 98
[2020-12-09 12:40] VITALS: BP 112/85
--- NOTE | 2020-12-11 16:12 | EKG ---
Test Date: 2020-12-08 Test Time: 22:01:44 Cpc: ROZINA MEASUREMENT RESULTS: Intervals: Rate: 85 KS: 142 QRSD: 96 QT: 404 QTc: 480 [place]: P: 70 KS: 142 QRS: 69 T: 37 INTERPRETIVE STATEMENTS: Normal sinus rhythm Cannot rule out Anterior infarct, age undetermined Abnormal ECG Compared to ECG 01/10/2015 14:51:55 Myocardial infarct finding now present Sinus tachycardia no longer present Electronically Signed On 12-11-20 16:05:29 CDT by Misael Flores
== END 2020-12-09 12:09 ==
LOC: ER 13:04
PROC: 06HM33Z Insertion of Infusion Device into Right Femoral Vein, Percutaneous Approach (ICD-10-PCS; principal; 2020-12-09)
DX: N17.9 Acute kidney failure, unspecified (principal); E11.9 Type 2 diabetes mellitus without complications; K74.60 Unspecified cirrhosis of liver; Z79.4 Long term (current) use of insulin
CPT/HCPCS: 36415; 80048; 80076; 82272; 83690; 85025; 86850; 86900; 86901; 87040; 93005; 99285; C9113; J0610; J0696; J2354; J2405; J2765; J7030; J7040; J7050; P9016; U0003

== ENCOUNTER 2021-01-12 11:27 | Emergency (ER) | payer OTHER, SELFPAY ==
--- OUTSIDE RECORDS SUMMARY | 2021-01-12 11:34 | XMS REPORT | Continuity of Care Document ---
:1965 Author Organization [facility] t Address [address] [place] [address] Care Team Providers Name Role Phone Asked, Pcp Primary Care Physician Unavailable Tanya Lilly Attending Clinician Addison Muñiz Attending Clinician Unavailable ENRIQUE ANTON Attending Clinician Unavailable Enrique Anton MD Attending Clinician Otis NULL Attending Clinician Jessee Brewer MD Attending Clinician Rachel BERNARD Attending Clinician Timothy Spencer MD Attending Clinician Debbie Vila PA-C Attending Clinician Germán Attending Clinician Unavailable Alvino Smalls MD Attending Clinician ALVINO SMALLS Attending Clinician Unavailable Oracio NULL Attending Clinician Saba Ortiz Attending Clinician Unavailable KEITH Attending Clinician Unavailable Keith NULL Attending Clinician Jasmine Canseco MD Attending Clinician Halle NULL Attending Clinician Odilia NULL Attending Clinician Richard Hernandez MD Attending Clinician Adi NULL, Jojo Attending Clinician Nam Mcmahan MD Attending Clinician Madelin NULL, Cecilia Attending Clinician Sheikh CHAKA, Jessi Attending Clinician Lenin NULL Attending Clinician CIVUNLEATHANTPedro Admitting Clinician Unavailable JASMINE CANSECO Admitting Clinician Unavailable Payers Payer Name Policy Type Policy Effective Date Expiration Date Sour ce Number HUMANA - MEDICARE [id number] [address] [facility] CAREHUMANA 00:00:00 - Medical MEDICARE Center [id number] 021-PresentMaps Contracted Problems Condition Condition Condition Status Onset Resolution Last Treating Co mments Source Name Details Category Date Date Treatment Clinician Date 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[facility] hypertensi 12-28 [facility] on [facility] Medical 00 Center 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 12-28 [facility] - varices varices 00:00: Medical without without 00 Center bleeding bleeding Cirrhosis Cirrhosis Disease Active [facility] Anemia Anemia Disease Active [facility] 00 Center GI bleed GI bleed Disease [facility] - [facility] Medical 00 Center Hepatitis Hepatitis Disease Active [facility] C 12-22 [facility] - 00:00: Medical 00 Center Hematochez Hematochez Disease Active [facility] ia ia 12-21 [facility] - 00:00: Medical 00 Center Acute Acute Disease Active [facility] blood loss blood loss - [facility] - anemia anemia 00:00: Medical 00 Center Acute Acute Disease Active [facility] hepatic hepatic 12-10 [facility] - encephalop encephalop 00:00: Me dical athy athy 00 Center NATACHA (acute NATACHA (acute Disease Active [facility] kidney kidney 7-11 [facility] - injury) injury) 00:00: Medical 00 Center Gastrointe Gastrointe Disease Active [facility] stinal stinal 7-10 [facility] - hemorrhage hemorrhage 00:00: Me dical with with 00 Center hematemesi hematemesi s s Cirrhosis Cirrhosis Disease Active [facility] 00:[facility]: Hospita 00 l Hepatitis Hepatitis Disease Active [facility] B B [facility] 00:00: Hospita 00 l Hepatitis Hepatitis Disease Active [facility] C C [facility] 00:00: Hospita 00 l Right Right Disease Active [facility] lower lower 8-12 st quadrant quadrant 00:00: Hospit a abdominal abdominal 00 l pain pain Type 2 Type 2 Disease Active [facility] diabetes diabetes 812 st mellitus mellitus 00:00: Hospit a without without 00 l complicati complicati on on Allergies, Adverse Reactions, Alerts This patient has no known allergies or adverse reactions. Family History Family Member Diagnosis Comments Start Date Stop Date Source Natural father No Known Problem [facility] Natural mother No Known Problem [facility] Social History Social Habit Start Date Stop Date Quantity Comments Source History of tobacco Cigarette Smoker [facility] Sex Assigned At [facility] Exposure to Not sure [facility] - SARS-CoV-2 (event) [facility] Tobacco use and 2020-12-25 2020-12-25 Never used [facility] - exposure 00:00:00 00:00:00 [facility] Alcohol intake 2020-12-25 2020-12-25 Ex-drinker [facility] es - 00:00:00 00:00:00 (finding) [facility] Cigarettes smoked 2016-01-12 2016-01-[address] current (pack per 00:00:00 00:00:00 [facility] day) - Reported Cigarette 2016-01-12 2016-01-12 [facility] pack-years 00:00:00 00:00:00 Hospital Smoking Status Start Date Stop Date Source Current every day smoker 2020-12-25 00:00:[address] [facility] Medications Ordered Filled Start Stop Current Ordering Indication Dosage Frequency Signature Comments Components Source Medication Medication Date Date Medication? Clinician (SIG) Name Name rifAXIMin Yes 550mg Q.5D Take 1 [facility] Tab 8-09 tablet [facility] - 00:00: (550 mg Medical 00 total) by Center mouth 2 (two) times daily. simvastatin Yes 20mg QD Take [address] (ZOCOR) 20 7-25 by mouth [facility] - MG tablet 14:17: nightly. Medi iglesia 07 Center metFORMIN Yes 1000mg Take 1,[address] (GLUCOPHAGE 7-25 mg by [facility]ukes - ) 1000 MG 14:17: mouth 2 Medic al tablet 07 (two) Center times daily with breakfast and dinner. lactulose Yes 10g Q.[id number] Take [address] (CHRONULAC) 7-25 [id number] by mouth 3 [facility] - 10 gram/15 14:17: 3D (three) Medi iglesia mL (15 mL) 07 times Center solution daily. gabapentin Yes 300mg Q.37899016 Take [address] (NEURONTIN) 7-25 [id number] mg by L ukes - 300 MG 14:17: 3D mouth 3 Medical capsule 07 (three) Center times daily. propranoloL Yes 20mg Q.5D Take [address] (INDERAL) 7-25 by mouth 2 Luke s - 20 MG 14:17: (two) Medical tablet 07 times Center daily. FLUoxetine Yes 40mg QD Take [address] (PROzac) 40 7-25 by mouth Luke s - MG capsule 14:17: daily . Medi iglesia 07 Center diphenhydrA Yes 25mg Q.[id number] Take [address] MINE 7-25 [id number] by mouth 3 Tom es - (BENADRYL) 14:17: 3D (three) Medi iglesia 25 mg 07 times Center capsule daily. buPROPion Yes 100mg Q.5D Take [address] (WELLBUTRIN 7-25 mg by [facility]ukes - ) 100 MG 14:17: mouth 2 Medica l tablet 07 (two) Center times daily. promethazin Yes 25mg Take [address] e 7-25 by mouth [facility]ukes - (PHENERGAN) 14:17: every 6 Med ical 25 MG 07 (six) Center tablet hours as needed for Nausea. esomeprazol 2020- No 40mg QD Take [address] e (NexIUM) 12-24 by mouth Luke s - 40 MG 08:30: 00:00 daily. Medical capsule 42 :00 Center esomeprazol Yes 40mg QD Take [address] e (NexIUM) 12-24 capsule [facility]ukes - 40 MG 00:00: (40 mg Medical capsule 00 total) by Center mouth daily. traMADoL No 50mg Take [address] (ULTRAM) 50 12-24 tablet (50 L ukes - mg tablet 00:00: 23:59 mg total) Me dical 00 :00 by mouth Center every 6 (six) hours as needed for Pain for up to 10 days. Max Daily Amount: 200 mg rifAXIMin 2020- No 550mg Q.5D Take [address] 550 mg Tab 12-2109 tablet Lukes - 00:00: 00:00 (550 mg Medical 00 :00 total) by Center mouth 2 (two) times daily. cefdinir 2020- No 300mg Q.5D Take 1 [facility] (OMNICEF) 12-14 capsule [facility]ukes - 300 MG 00:00: 23:59 (300 mg Medical capsule 00 :00 total) by Center mouth 2 (two) times daily for 2 days Antibiotic s to prevent infection. furosemide 2020- No 40mg Q.5D Take [address] (LASIX) 40 12-13 by mouth 2 [facility] - MG tablet 14:30: 00:00 (two) Medica l 08 :00 times Center daily. spironolact 2020- No 50mg QD Take [address] one 12-13 by mouth [facility]ukes - (ALDACTONE) 14:30: 00:00 daily. Med ical 50 MG 08 :00 Center tablet bisacodyL 2020- No 5mg Take [address] (DULCOLAX) 12-13 by mouth 2 [facility] - 5 mg EC 14:26: 00:00 (two) Medical tablet 10 :00 times Center daily as needed for Constipati on. traMADoL 2020- No 50mg Take [address] (ULTRAM) 50 12-13 tablet (50 L ukes - mg tablet 00:00: 00:00 mg total) Me dical 00 :00 by mouth Center every 6 (six) hours as needed for Pain. Max Daily Amount: 200 mg rifAXIMin 2020- No 550mg Q.5D Take [address] 550 mg Tab 12-13 tablet Lukes - 00:00: 00:00 (550 mg Medical 00 :00 total) by Center mouth 2 (two) times daily To prevent confusion sec to liver disease. metFORMIN Yes 1000mg Q.5D Take 1,000 [facility] (GLUCOPHAGE 8-[address] ) 1000 MG 16:59: mouth 2 Hospi ta tablet 10 (two) l times a day with meals. gabapentin Yes 300mg QD Take 300 Me [facility]odi (NEURONTIN) 8-[address] 300 MG 16:59: mouth Hospita capsule 10 daily. l gabapentin 0 Yes 600mg QD Take 600 [facility] (NEURONTIN) 8-[address] 600 MG 16:59: mouth Hospita tablet 10 nightly. l methocarbam Yes 750mg Q.5D Take 750 M ethodi ol 8-[address] (ROBAXIN) 16:59: mouth 2 Hospi ta 750 MG 10 (two) l tablet times a day. insulin NPH Yes 40U Q.5D Inject 40 M ethodi and regular 8-[address] 16:59: under the Hospita (HumuLIN 10 skin 2 l 70/30) 100 (two) unit/mL times a (70-30) day with injection meals. lactulose 0 Yes 10g Q.[id number] Take 10 g [facility] 10 gram/15 [id number] mouth [address] mL solution 16:59: 3D (three) Hos iban 10 times a l day. omeprazole Yes 20mg QD Take 20 mg M ethodi (PriLOSEC) 8-[address] 20 MG 16:59: daily. Hospita capsule 10 l multivitami 2016-0 Yes 1{tbl} QD Take 1 Me thodi n 8-[address] (THERAGRAN) 16:59: mouth Hospi ta tablet 10 daily. l ibuprofen Yes 800mg Q6H Take 800 Met [facility]odi (ADVIL,MOTR 8-[address] IN) 800 MG 16:59: mouth Hospit a tablet 10 every 6 l (six) hours as needed for mild pain. traMADol Yes 50mg Q6H Take 50 mg Met [facility]odi (ULTRAM) 50 8-[address] mg tablet 16:59: every 6 Hospi ta 10 (six) l hours as needed for moderate pain. UNKNOWN TO Yes 1{tbl} QD Take 1 [facility] PATIENT 8-[address] 16:59: mouth Hospita 10 nightly. l Cholestero l Medication Immunizations Ordered Immunization Filled Immunization Date Status Commen ts Source Name Name [employer] SARS-CoV-2 2020-08-12 Completed MD And erson Vaccination 00:00:00 Vital Signs Vital Name Observation Time Observation Value Comments Source Systolic blood 2020 11:18:00 129 mm[Hg] [facility] Diastolic blood 2020 11:18:00 68 mm[Hg] [facility] Body temperature 2020 11:18:00 36.39 Mihaela [facility] Respiratory rate 2020 11:18:00 86 /min [facility] Oxygen saturation in 2020 11:18:00 99 /min [facility] Arterial blood by Medical Ce nter Pulse oximetry Heart rate 2020 07:22:00 93 /min [facility] Body height 2020-12-21 14:23:00 147.3 cm [facility] Body weight 2020-12-21 14:23:00 57.153 kg [facility] BMI 2020-12-21 14:23:00 26.33 kg/m2 [facility] Procedures Procedure Date / Time Performing Source Performed Clinician PREPARE LEUKO-REDUCED PLATELETS 2020 Marcelino Goyal [facility] - 23:54:00 [facility] PREPARE LEUKO-REDUCED RBC [address] [facility] - 14:17:00 [facility] CBC W/PLT COUNT & AUTO DIFFERENTIAL [address] [facility] - 05:50:00 [facility] COMPREHENSIVE METABOLIC PANEL [address] [facility] - 05:50:00 [facility] PROTHROMBIN TIME/INR [address] [facility] - 05:50:00 [facility] POCT-GLUCOSE METER 2020-12-23 [facility] - 21:16:00 [facility] POCT-GLUCOSE METER 2020[facility]12-[facility] - 16:20:00 [facility] REPORT OF PROCEDURE - ENDOSCOPY URL 2020-12-[address] [facility] - 15:42:28 [facility] REPORT OF PROCEDURE - ENDOSCOPY URL 2020-12-[address] [facility] - 15:19:48 [facility] COLONOSCOPY 2020-12-[address] [facility] - 13:35:00 [facility] ESOPHAGOGASTRODUODENOSCOPY 2020-12-[address] [facility] - (EGD),REMOVAL FOREIGN BODY 13:35:00 [facility] TRANSFUSE LEUKO-REDUCED PLATELETS 2020-12-[address] [facility] - 12:42:33 [facility] TYPE AND SCREEN, AUTOMATED 2020-12-23 Marcelino [facility]oyal [facility] - 08:04:00 [facility] HEMOGLOBIN AND HEMATOCRIT 2020-12-[address] [facility] - 05:00:00 [facility] CBC W/PLT COUNT & AUTO DIFFERENTIAL 2020-12-[address] [facility] - 05:00:00 [facility] COMPREHENSIVE METABOLIC PANEL 2020-12-[address] [facility] - 05:00:00 [facility] PROTHROMBIN TIME/INR 2020-12-[address] [facility] - 05:00:00 [facility] MAGNESIUM 2020-12-[address] [facility] - 05:00:00 [facility] HEMOGLOBIN AND HEMATOCRIT 2020-12-[address] [facility] - 18:17:00 [facility] POCT-GLUCOSE METER 2020-12-[address] [facility] - 05:27:00 [facility] SARS-COV2/RT-PCR ([facility] REF LABS) 2020-12-[address] [facility] - 05:26:00 [facility] CBC W/PLT COUNT & AUTO DIFFERENTIAL 2020-12-22 Tommie Garcia [facility] - 03:59:00 [facility] BASIC METABOLIC PANEL (7) 2020-12-22 Jose, Macey [facility] - 03:59:00 [facility] HEPATIC FUNCTION PANEL 2020-12-22 Jose, Macey ARCINIEGA [facility] - 03:59:00 [facility] PHOSPHORUS 2020-12-22 Jose, [facility] - 03:59:00 [facility] MAGNESIUM 2020-12-22 Jose, [facility] - 03:59:00 [facility] POCT-GLUCOSE METER 2020-12-[address] [facility] - 01:12:00 [facility] LACTIC ACID, VENOUS 2020-12-[address] [facility] - 19:03:00 [facility] PROTHROMBIN TIME/INR 2020-12-[address] [facility] - 19:03:00 [facility] APTT 2020-12-[address] [facility] - 19:03:00 [facility] AMMONIA 2020-12-[address] [facility] - 19:03:00 [facility] BLOOD CULTURE 2020-12-[address] [facility] - 19:02:00 [facility] BASIC METABOLIC PANEL (7) 2020-12-21 [facility] - 15:52:00 [facility] HEPATIC FUNCTION PANEL 2020-12-[address] [facility] - 15:52:00 [facility] CBC W/PLT COUNT & AUTO DIFFERENTIAL 2020-12-[address] [facility] - 15:52:00 [facility] BASIC METABOLIC PANEL (7) 2020-12-20 Plaza, Line [facility] - 11:59:00 [facility] HEPATIC FUNCTION PANEL 2020-12-20 Plaza, Line [facility] - 11:59:00 [facility] CBC W/PLT COUNT & AUTO DIFFERENTIAL 2020-12-[address] [facility] - 11:59:00 [facility] PROTHROMBIN TIME/INR 2020-12-20 Plaza, Line [facility] - 11:59:00 [facility] POCT-GLUCOSE METER 2020-12-[address] [facility] - 16:31:00 [facility] POCT-GLUCOSE METER 2020-12-[address] [facility] - 11:41:00 [facility] POCT-GLUCOSE METER 2020-12-13 Cleveland Nerig-Courtney [facility] - 07:14:00 [facility] CALCIUM, IONIZED 2020-12-[address] [facility] - 03:35:00 [facility] COMPREHENSIVE METABOLIC PANEL 2020-12-[address] [facility] - 03:35:00 [facility] MAGNESIUM 2020-12-[address] [facility] - 03:35:00 [facility] Center PHOSPHORUS 2020-12-[address] [facility] - 03:35:00 [facility] Center CBC W/PLT COUNT & AUTO DIFFERENTIAL 2020-12-[address] [facility] - 03:35:00 [facility] POCT-GLUCOSE METER 2020-12-[address] [facility] - 22:16:00 [facility] POCT-GLUCOSE METER 2020-12-[address] [facility] - 16:51:00 [facility] HEMOGLOBIN AND HEMATOCRIT 2020-12-[address] [facility] - 15:58:00 [facility] POCT-GLUCOSE METER 2020-12-[address] [facility] - 11:39:00 [facility] POCT-GLUCOSE METER 2020-12-[address] [facility] - 08:06:00 [facility] CALCIUM, IONIZED 2020-12-[address] [facility] - 03:34:00 [facility] COMPREHENSIVE METABOLIC PANEL 2020-12-[address] [facility] - 03[facility]34:00 Medical Center MAGNESIUM 2020-12-[address] [facility] - 03:34:00 [facility] Center PHOSPHORUS 2020-12-[address] [facility] - 03:34:00 [facility] CBC W/PLT COUNT & AUTO DIFFERENTIAL 2020-12-[address] [facility] - 03:34:00 [facility] PREPARE LEUKO-REDUCED RBC 2020-12-[address] [facility] - 23:54:00 [facility] PREPARE LEUKO-REDUCED PLATELETS 2020-12-[address] [facility] - 23:54:00 [facility] POCT-GLUCOSE METER 2020-12-[address] [facility] - 21:46:00 [facility] HEMOGLOBIN AND HEMATOCRIT 2020-12-[address] [facility] - 18:15:00 [facility] POCT-GLUCOSE METER 2020-12-[address] [facility] - 17:50:00 [facility] HEPATITIS B E ANTIGEN 2020-12-[address] [facility] - 14:50:00 [facility] HEPATITIS B E ANTIBODY 2020-12-[address] [facility] - 14:49:00 [facility] HEPATITIS B SURFACE ANTIBODY 2020-12-[address] [facility] - 14:49:00 [facility] POCT-GLUCOSE METER 2020-12-[address] [facility] - 12:02:00 [facility] POCT-GLUCOSE METER 2020-12-[address] [facility] - 07:59:00 [facility] ACTIN (SMOOTH MUSCLE) ANTIBODY, IGG 2020-12-[address] [facility] - 05:11:00 [facility] ANTI-MITOCHONDRIAL AB, REFLEX TO 2020-12-[address] [facility] - TITER 05:11:00 [facility] CALCIUM, IONIZED 2020-12-[address] [facility] - 05:11:00 [facility] COMPREHENSIVE METABOLIC PANEL 2020-12-[address] [facility] - 05:11:00 [facility] MAGNESIUM 2020-12-[address] [facility] - 05:11:00 [facility] PHOSPHORUS 2020-12-[address] [facility] - 05:11:00 [facility] CBC W/PLT COUNT & AUTO DIFFERENTIAL 2020-12-[address] [facility] - 05:11:00 [facility] MITOCHONDRIAL AB SCREEN 2020-12-[address] [facility] - 05:11:00 [facility] MITOCHONDRIAL AB TITER 2020-12-[address] [facility] - 05:11:00 [facility] TRANSFUSE LEUKO-REDUCED PLATELETS 2020-12-[address] [facility] - 01:55:57 [facility] PREPARE LEUKO-REDUCED PLATELETS 2020-12-[address] [facility] - 23:54:00 [facility] HEMOGLOBIN AND HEMATOCRIT 2020-12-[address] [facility] - 23:37:00 [facility] POCT-GLUCOSE METER 2020-12-[address] [facility] - 21:39:00 [facility] POCT-GLUCOSE METER 2020-12-[address] [facility] - 16:25:00 [facility] REPORT OF PROCEDURE - ENDOSCOPY URL 2020-12-[address] [facility] - 16:01:18 [facility] UPPER ENDOSCOPY,BANDING 2020-12-[address] [facility] - 15:28:00 [facility] CBC W/PLT COUNT & AUTO DIFFERENTIAL 2020-12-[address] [facility] - 13:31:00 [facility] TRANSFUSE LEUKO-REDUCED RED BLOOD 2020-12-[address] [facility] - CELLS 13:23:55 [facility] POCT-GLUCOSE METER 2020-12-[address] [facility] - 11:33:00 [facility] POCT-GLUCOSE METER 2020-12-[address] [facility] - 07:09:00 [facility] PROTHROMBIN TIME/INR 2020-12-[address] [facility] - 05:12:00 [facility] COMPREHENSIVE METABOLIC PANEL 2020-12-[address] [facility] - 05:12:00 [facility] HEMOGLOBIN A1C 2020-12-[address] [facility] - 05:12:00 [facility] CALCIUM, IONIZED 2020-12-[address] [facility] - 05:12:00 [facility] Center MAGNESIUM 2020-12-[address] [facility] - 05:12:00 [facility] Center PHOSPHORUS 2020-12-[address] [facility] - 05:12:00 [facility] Center CBC W/PLT COUNT & AUTO DIFFERENTIAL 2020-12-[address] [facility] - 05:12:00 [facility] Center TRANSFUSE LEUKO-REDUCED PLATELETS 2020-12-[address] [facility] - 01:43:15 [facility] POCT-GLUCOSE METER 2020-12-[address] [facility] - 23:28:00 [facility] US ABDOMINAL WITH DOPPLER 2020-12-[address] [facility] - 23:15:00 [facility] ABORH, MANUAL 2020-12-[address] [facility] - 20:12:00 [facility] HEMOGLOBIN AND HEMATOCRIT 2020-12-09 [facility] - 19:09[facility]00 [facility] Center TYPE AND SCREEN, AUTOMATED 2020-12-09 Amaliaagus, Asha [facility] - 19:01:00 [facility] BLOOD CULTURE 2020-12-09 Joesph, Garryi [facility] - 17:17:00 [facility] URINALYSIS W/ REFLEX URINE CULTURE 2020-12-09 Joesph, Garryi [facility] - 17:13:00 [facility] URINE CULTURE 2020-12-09 Joesph, Garryi [facility] - 17:13:00 [facility] AMMONIA 2020-12-09 Zindani, Asha [facility] - 17:10:00 [facility] HC LAB HIV-1 AG W/HIV-1&2 AB 2020-12-09 Joesph, Garryi [facility] - 17:09:00 [facility] [id number]\, SERUM 2020-12-09 Joesph, Garryi [facility] - 17:09:00 [facility] ANTI-NUCLEAR ANTIBODY (AARON) 2020-12-09 Joesph, Garryi [facility] - 17:09:00 [facility] HEPATITIS A ANTIBODY, IGG 2020-12-09 Joesph, Garryi [facility] - 17:09:00 [facility] BLOOD CULTURE 2020-12-09 Joesph, Garryi [facility] - 17:09:00 [facility] DRUG SCREEN, URINE, TRANSPLANT 2020-12-09 Joesph, Alisontanvi [facility] - 15:30:00 [facility] MISCELLANEOUS LAB ORDER 2020-12-[address] [facility] - 15:22:00 [facility] FERRITIN 2020-12-09 Joesph, Garryi [facility] - 15:21:00 [facility] ACETAMINOPHEN LEVEL 2020-12-09 Joesph, Tesfai [facility] - 15:21:00 [facility] ALPHA FETOPROTEIN (AFP), TUMOR 2020-12-09 Joesph, Alisondaniellei [facility] - MARKER 15:21:00 [facility] CARBOHYDRATE ANTIGEN 19-9 (CA 19-9) 2020-12-09 Joesph, Garry i [facility] - 15:21:00 [facility] VITAMIN D, 25-HYDROXY 2020-12-09 Joesph, Juan [facility]CIN[facility] - 15:21:00 [facility] ZINC 2020-12-09 Joesph, Tesfai [facility] - 15:21:00 [facility] IRON, TIBC, % SAT. (WITHOUT 2020-12-09 Joesph, Alisonfai [facility] - FERRITIN) 15:21:00 [facility] CBC W/PLT COUNT & AUTO DIFFERENTIAL 2020-12-[address] [facility] - 15:21:00 [facility] COMPREHENSIVE METABOLIC PANEL 2020-12-[address] [facility] - 15:21:00 [facility] HEPATITIS B CORE ANTIBODY, TOTAL 2020-12-09 Joesph, Juan [facility] - 15:21:00 [facility] HEPATITIS C PCR, QUANTITATIVE 2020-12-09 [address] [facility] - 15:21:00 [facility] HEPATITIS PANEL, ACUTE 2020-12-09 Joesph, Juan [facility]IN[facility] - 15:21:00 [facility] HEPATITIS B PCR, QUANTITATIVE 2020-12-[address] [facility] - 15:21:00 [facility] CARCINOEMBRYONIC ANTIGEN (CEA) 2020-12-09 [address]es[address] garrido[address] [facility] - 15:21:00 [facility] CERULOPLASMIN 2020-12-09 Joesph, Garryi [facility] - 15:21:00 [facility] COPPER 2020-12-09 Joesph, Tesfai [facility] - 15:21:00 [facility] Plan of Care Planned Activity Planned Date Details Comments Source Future Scheduled 2030-12-[address] [facility] - Test 00:00:00 malignant neoplasm of Medica l Center colon (procedure) [code = 702713901] Future Scheduled 2021-01-31 INFLUENZA VACCINE (#1) [facility] Test 00:00:00 [code = INFLUENZA Medical Ce nter VACCINE (#1)] Future Scheduled 2020-10-[address] [facility] - Test 00:00:00 (procedure) [code = [facility] [id number]] Future Scheduled 2020-09-30 Medicare IPPE (WELCOME [facility] - Test 00:00:00 TO MEDICARE) [code = Medical Center Medicare IPPE (WELCOME TO MEDICARE)] Future Scheduled 2017-12-23 SHINGLES VACCINES ([address] [facility] - Test 00:00:00 of 2) [code = SHINGLES Medic al Center VACCINES (1 of 2)] Future Scheduled 1988-12-[address] [facility] cervix (procedure) [code = 651053962] Future Scheduled 1986-12-23 DTAP/TDAP/TD [facility]ACCINES [facility] Test 00:[facility]:00 (1 - Tdap) [code = Medical C enter DTAP/TDAP/TD VACCINES (1 - Tdap)] Future Scheduled 1973-12-[address] [facility] - Test 00:00:00 0-64 YRS (1 of 1 - Medical C enter PPSV23) [code = PNEUMOCOCCAL VACCINE 0-64 YRS (1 of 1 - PPSV23)] Future Scheduled [address] [facility] Test 00:00:00 [facility] breast (procedure) [code = 037933482] Future Scheduled COVID-19 [facility]ACCINE (1) [facility] [code = COVID-19 VACCINE (1)] Future Scheduled Screening for [facility] Test malignant neoplasm of cervix (procedure) [code = 099346094] Future Scheduled BREAST CANCER [facility] Test SCREENING [code = BREAST CANCER SCREENING] Future Scheduled [facility] [code = COLONOSCOPY SCREENING] Future Scheduled SHINGLES [facility]ACCINES (#[facility]) [facility] [code = SHINGLES VACCINES (#1)] Future Scheduled [facility] [code = INFLUENZA VACCINE] Encounters Start End Encounter Admission Attending Care Care Encounter Source Date/Time Date/Time Type Type Clinicians Facility Department ID 2020-12-01 2020-12-01 MARLENA Drake [id number] 08:35:38 11:02:59 Visit Sp [address] [id number] [id number] [place] [id number] [facility] 2020-08-12 2020-08-12 Outpatient [facility] [id number] 774 12:07:04 12:07:04 Fred o n Results Test Description Test Time Test Comments Results Result Comments Source Blood Culture #2 2020-12-26 20:01:00 Test Item Value Reference Range Interpretation Comme nts Result (test code = 6463-4) No growth [facility] 5 days [id number] 20:01:00 Test Item Value Reference Range Interpretation Comments CULTURE (BEAKER) (test No growth in 5 days code = 1095) BLOOD [id number] 20:01:00 Test Item Value Reference Range Interpretation Comments CULTURE (BEAKER) (test No growth in 5 days code = 1095) Drug screen, urine, [id number] 14:34:00See scanned report[facility] HospitalPrepare Leuko-Red [id number] 23:54:00 Test Item Value Reference Range Interpretation Comments Unit ABO (test code = 3545398) A Pos UNIT NUMBER (test code = [id number] 934-0) Status (test code = 9014653) [place]_TIMEINCHART Blood Bank Product (test code PLATELETS = 2263) PRODUCT CODE (test code = J4999U30 933-2) [facility] [id number] 14:17:00 Test Item Value Reference Range Interpretation Comments CROSSMATCH (test code = COMPATIBLE 2264) Unit ABO (test code = A Pos 1595022) UNIT NUMBER (test code = [id number] 934-0) Status (test code = 4281074) WORK IN PROGRESS Blood Bank Product (test RED BLOOD CELLS code = 2263) PRODUCT CODE (test code = H2846U49 933-2) [facility] [id number] 06:58:00 Test Item Value Reference Range Interpretation Comments Protein, Total (test 6.1 See_Comment [Autom ated code = 2885-2) message] The system which generated this result transmit gaby reference range : 6.0 - 8.3 gm/dL . The reference range was not u sed to interpret th is result as normal/abnormal . Albumin (test code = 3.0 g/dL 3.5-5 L 05571-4) Alkaline Phosphatase 94 U/L 40-150 (test code = 6768-6) Total Bilirubin (test 0.5 mg/dL 0.2-1.2 code = 1974-2) Sodium (test code = 140 meq/L 546-836 3493-2) Potassium (test code 4.2 meq/L 3.5-5.1 = 2823-3) Chloride (test code = 107 meq/L 98-107 2075-0) CO2 (test code = 24 meq/L 22-29 2028-9) BUN (test code = 4 mg/dL 7-21 L 3094-0) Creatinine (test code 0.97 mg/dL 0.57-1.25 = 2160-0) Glucose (test code = 175 mg/dL 70-105 H 2345-7) Calcium (test code = 8.0 mg/dL 8.4-10.2 L 21292-9) AST (test code = 19 U/L 5-34 1920-8) ALT (test code = 16 U/L 6-55 1742-6) EGFR (test code = 60 mL/min/1.73 [place] [address]-6) NOT ACCURATE CREATININE CLEARANCE IN PREDICTING GLOMERULAR FILTRATION RATE . ESTIMATED GFR I S NOT APPLICABLE FOR DIALYSIS PATIEN JULIAN (test code = JULIAN) Rn Surgical Pcu ID - MARCUS W Lab Interpretation Abnormal (test code = 10730-0) [facility] [id number] 06:58:00 Test Item Value Reference Range Interpretation Comments TOTAL PROTEIN 6.1 gm/dL 6.0-8.3 (BEAKER) (test code = 770) ALBUMIN (BEAKER) 3.0 g/dL 3.5-5.0 L (test code = 1145) ALKALINE PHOSPHATASE 94 U/L 40-150 (BEAKER) (test code = 346) BILIRUBIN TOTAL 0.5 mg/dL 0.2-1.2 (BEAKER) (test code = 377) SODIUM (BEAKER) (test 140 meq/L 136-145 code = 381) POTASSIUM (BEAKER) 4.2 meq/L 3.5-5.1 (test code = 379) CHLORIDE (BEAKER) 107 meq/L 98-107 (test code = 382) CO2 (BEAKER) (test 24 meq/L 22-29 code = 355) BLOOD UREA NITROGEN 4 mg/dL 7-21 L (BEAKER) (test code = 354) CREATININE (BEAKER) 0.97 mg/dL 0.57-1.25 (test code = 358) GLUCOSE RANDOM 175 mg/dL 70-105 H (BEAKER) (test code = 652) CALCIUM (BEAKER) 8.0 mg/dL 8.4-10.2 L (test code = 697) AST (SGOT) (BEAKER) 19 U/L 5-34 (test code = 353) ALT (SGPT) (BEAKER) 16 U/L 6-55 (test code = 347) EGFR (BEAKER) (test 60 mL/min/1.73 ESTIMA GABY GFR IS code = 1092) sq m NOT ACCURATE CREATININE CLEARANCE IN PREDICTING GLOMERULAR FILTRATION RATE . ESTIMATED GFR I S NOT APPLICABLE FOR DIALYSIS PATIEN TS. Rn Surgical Pcu ID - MARCUS WProthrombin time/[id number] 06:30:00 Test Item Value Reference Interpretation Comments Range Protime (test code = 16.1 See_Comment H [Autom ated 3072-2) message] The system which generated this result transmitted reference range : 11.9 - 14.2 seconds. The reference range was not used to interpret this result as normal/abnormal . INR (test code = 1.31 See_Comment [Automated 8171-6) message] The system which generated this result transmitted reference range : <=5.90. The reference range was not used to interpret this result as normal/abnormal . JULIAN (test code = RECOMMENDED JULIAN) COUMADIN/WARFARIN INR THERAPY RANGESSTANDARD DOSE: 2.0 - 3.0 Includes: PROPHYLAXIS for venous thrombosis, systemic embolization; TREATMENT for venous thrombosis and/or pulmonary embolus.HIGH RISK: Target INR is 2.5-3.5 for patients with mechanical heart valves. Lab Interpretation Abnormal (test code = 67907-7) [facility]PROT[facility] TIME/[id number] 06:30:00 Test Item Value Reference Range Interpretation Comments PROTIME (BEAKER) 16.1 seconds 11.9-14.2 H (test code = 759) INR (BEAKER) (test 1.31 See_Comment [Automat ed message] code = 370) The system [employer] generated this result transmitted ref erence range: <=5.90. The reference range was not used to int erpret this result as normal/abnormal . RECOMMENDED COUMADIN/WARFARIN INR THERAPY RANGESSTANDARD DOSE: 2.0 - 3.0 Includes: PROPHYLAXIS forvenous thrombosis, systemic embolization; TREATMENT for venous thrombosis and/or pulmonary embolus.HIGH RISK: Target INR is 2.5-3.5 for patients with mechanical heart valves.CBC with platelet count + automated diff 2020 06:19:00 Test Item Value Reference Range Interpretation Comments WBC (test code = 6690-2) 3.0 See_Comment L [A utomated message] The system [employer] [facility] generated this result transmitted ref erence range: 3.5 - 10 .5 K/L. The refe rence range was not u sed to interpret this result as normal/abnor mal. RBC (test code = 789-8) 2.52 See_Comment L [Au tomated message] The system [employer] [facility] generated this result transmitted ref erence range: 3.93 - 5 .22 M/L. The refe rence range was not u sed to interpret this result as normal/abnor mal. MCHC (test code = 786-4) 31.0 See_Comment L [A utomated message] The system [employer] [facility] generated this result transmitted ref erence range: 32.2 - 3 5.5 GM/DL. The refe rence range was not u sed to interpret this result as normal/abnor mal. Hematocrit (test code = 22.6 % 34.1-44.9 L 4544-3) MCV (test code = 787-2) 89.7 fL 79.4-94.8 MCH (test code = 785-6) 27.8 pg 25.6-32.2 RDW (test code = 788-0) 19.5 % 11.7-14.4 H Platelets (test code = 50 See_Comment L [Aut omated message] 207-3) The system [employer] [facility] generated this result transmitted ref erence range: 150 - 45 0 K/CU MM. The referen ce range was not u sed to interpret this result as normal/abnor mal. MPV (test code = 11.3 fL 9.4-12.3 98905-7) nRBC (test code = 413) 0 See_Comment [Aut omated message] The system [employer] [facility] generated this result transmitted ref erence range: 0 - 0 /1 00 WBC. The refere nce range was not u sed to interpret this result as normal/abnor mal. % Neutros (test code = 63 % 429) % Lymphs (test code = 21 % 430) % Monos (test code = 12 % 431) % Eos (test code = 432) 4 % % Baso (test code = 437) 0 % # Neutros (test code = 1.87 See_Comment [Aut omated message] 670) The system [employer] generated this result transmitted ref erence range: 1.56 - 6 .13 K/L. The refe rence range was not u sed to interpret this result as normal/abnor mal. # Lymphs (test code = 0.62 See_Comment L [Auto mated message] 414) The system [employer] [facility] generated this result transmitted ref erence range: 1.18 - 3 .74 K/L. The refe rence range was not u sed to interpret this result as normal/abnor mal. # Monos (test code = 0.35 See_Comment [Autom ated message] 415) The system [employer] [facility] generated this result transmitted ref erence range: 0.24 - 0 .36 K/L. The refe rence range was not u sed to interpret this result as normal/abnor mal. # Eos (test code = 416) 0.11 See_Comment [Au tomated message] The system [employer] [facility] generated this result transmitted ref erence range: 0.04 - 0 .36 K/L. The refe rence range was not u sed to interpret this result as normal/abnor mal. # Baso (test code = 417) 0.01 See_Comment [A utomated message] The system [employer] [facility] generated this result transmitted ref erence range: 0.01 - 0 .08 K/L. The refe rence range was not u sed to interpret this result as normal/abnor mal. Immature 0 % 0-1 Granulocytes-Relative (test code = 2801) Lab Interpretation (test Abnormal code = 09705-5) [facility] W/PLT COUNT & AUTO [id number] 06:19:00 Test Item Value Reference Range Interpretation Comments WHITE BLOOD CELL COUNT (BEAKER) 3.0 K/ L 3.5-10.5 L (test code = 775) RED BLOOD CELL COUNT (BEAKER) 2.52 M/ L 3.93-5.22 L (test code = 761) HEMOGLOBIN (BEAKER) (test code = 7.0 GM/DL 11.2-15.7 L 410) HEMATOCRIT (BEAKER) (test code = 22.6 % 34.1-44.9 L 411) MEAN CORPUSCULAR VOLUME (BEAKER) 89.7 fL 79.4-94.8 (test code = 753) MEAN CORPUSCULAR HEMOGLOBIN 27.8 pg 25.6-32.2 (BEAKER) (test code = 751) MEAN CORPUSCULAR HEMOGLOBIN CONC 31.0 GM/DL 32.2-35.5 L (BEAKER) (test code = 752) RED CELL DISTRIBUTION WIDTH 19.5 % 11.7-14.4 H (BEAKER) (test code = 412) PLATELET COUNT (BEAKER) (test code 50 K/CU MM 150-450 L = 756) MEAN PLATELET VOLUME (BEAKER) 11.3 fL 9.4-12.3 (test code = 754) NUCLEATED RED BLOOD CELLS (BEAKER) 0 /100 WBC 0-0 (test code = 413) NEUTROPHILS RELATIVE PERCENT 63 % (BEAKER) (test code = 429) LYMPHOCYTES RELATIVE PERCENT 21 % (BEAKER) (test code = 430) MONOCYTES RELATIVE PERCENT 12 % (BEAKER) (test code = 431) EOSINOPHILS RELATIVE PERCENT 4 % (BEAKER) (test code = 432) BASOPHILS RELATIVE PERCENT 0 % (BEAKER) (test code = 437) NEUTROPHILS ABSOLUTE COUNT 1.87 K/ L 1.56-6.13 (BEAKER) (test code = 670) LYMPHOCYTES ABSOLUTE COUNT 0.62 K/ L 1.18-3.74 L (BEAKER) (test code = 414) MONOCYTES ABSOLUTE COUNT (BEAKER) 0.35 K/ L 0.24-0.36 (test code = 415) EOSINOPHILS ABSOLUTE COUNT 0.11 K/ L 0.04-0.36 (BEAKER) (test code = 416) BASOPHILS ABSOLUTE COUNT (AKER) 0.01 K/ L 0.01-0.08 (test code = 417) IMMATURE GRANULOCYTES-RELATIVE 0 % 0-1 PERCENT (AKER) (test code = 2801) POC-Glucose [id number] 21:39:00 Test Item Value Reference Range Interpretation Comments POC-Glucose Meter (test 319 mg/dL 70-110 H : TE STED AT [facility] code = 1538) [address] [facility], 770 30: Rn Surgical Pcu/Techni sanjeev ID = [id number] for OCTAVIA MAGAÑA Lab Interpretation (test Abnormal code = 28901-8) [facility] [id number] 21:39:00 Test Item Value Reference Range Interpretation Comments POC-GLUCOSE METER 319 mg/dL 70-110 H : [facility] (test code = [facility], 1538) [address]: Rn Surgical Pcu/Techni sanjeev ID = [id number] for OCTAVIA HOPKINS RA POCT-GLUCOSE [id number] 16:32:00 Test Item Value Reference Range Interpretation Comments POC-GLUCOSE METER 145 mg/dL 70-110 H : [facility] ([facility]) (test code = [facility], 1538) [address]: Rn Surgical Pcu/Techni sanjeev ID = [id number] for KE ITH (V), ROMINA Type and screen, [id number] 08:50:00 Test Item Value Reference Range Interpretation Comments ABO/RH AUTOMATED ([facility]) (test A POSITIVE code = 2260) Ab Scrn (test code = 890-4) NEGATIVE [facility] [id number] 06:07:00 Test Item Value Reference Range Interpretation Comments TOTAL PROTEIN 5.7 gm/dL 6.0-8.3 L ([facility]) (test code = 770) ALBUMIN ([facility]) 2.9 g/dL 3.5-5.0 L (test code = 1145) ALKALINE PHOSPHATASE 102 U/L 40-150 ([facility]) (test code = 346) BILIRUBIN TOTAL 0.5 mg/dL 0.2-1.2 (BEAKER) (test code = 377) SODIUM (BEAKER) (test 139 meq/L 136-145 code = 381) POTASSIUM (BEAKER) 4.6 meq/L 3.5-5.1 (test code = 379) CHLORIDE (BEAKER) 112 meq/L 98-107 H (test code = 382) CO2 (BEAKER) (test 20 meq/L 22-29 L code = 355) BLOOD UREA NITROGEN 5 mg/dL 7-21 L (BEAKER) (test code = 354) CREATININE (BEAKER) 0.92 mg/dL 0.57-1.25 (test code = 358) GLUCOSE RANDOM 177 mg/dL 70-105 H (BEAKER) (test code = 652) CALCIUM (BEAKER) 7.7 mg/dL 8.4-10.2 L (test code = 697) AST (SGOT) (BEAKER) 21 U/L 5-34 (test code = 353) ALT (SGPT) (BEAKER) 19 U/L 6-55 (test code = 347) EGFR (BEAKER) (test 64 mL/min/1.73 ESTIMA GABY GFR IS code = 1092) sq m NOT ACCURATE CREATININE CLEARANCE IN PREDICTING GLOMERULAR FILTRATION RATE . ESTIMATED GFR I S NOT APPLICABLE FOR DIALYSIS PATIEN TS. Rn Surgical Pcu YOSEF VELOZ [id number] 05:52:00 Test Item Value Reference Range Interpretation Comments Magnesium (test code = 1.4 mg/dL 1.6-2.6 L 45284-8) JULIAN (test code = JULIAN) Rn Surgical Pcu YOSEF VELOZ M Lab Interpretation (test Abnormal code = 04958-3) [id number] 05:52:00 Test Item Value Reference Range Interpretation Comments MAGNESIUM (BEAKER) (test code = 1.4 mg/dL 1.6-2.6 L 627) Rn Surgical Pcu YOSEF VELOZ MPROTHROMBIN TIME/[id number] 05:27:00 Test Item Value Reference Range Interpretation Comments PROTIME (BEAKER) 16.8 seconds 11.9-14.2 H (test code = 759) INR (BEAKER) (test 1.38 See_Comment [Automat ed message] code = 370) The system [employer] [facility] generated this result transmitted ref erence range: <=5.90. The reference range was not used to int erpret this result as normal/abnormal . RECOMMENDED COUMADIN/WARFARIN INR THERAPY RANGESSTANDARD DOSE: 2.0 - 3.0 Includes: PROPHYLAXIS forvenous thrombosis, systemic embolization; TREATMENT for venous thrombosis and/or pulmonary embolus.HIGH RISK: Target INR is 2.5-3.5 for patients with mechanical heart valves.Hemoglobin and [id number] 05:23:00 Test Item Value Reference Range Interpretation Comments Hemoglobin (test code = 7.0 See_Comment L [Au tomated message] 786-4) The system [facility] generated this result transmitted ref erence range: 11.2 - 1 5.7 GM/DL. The refe rence range was not u sed to interpret this result as normal/abnor mal. Hematocrit (test code = 23.8 % 34.1-44.9 L 4544-3) Lab Interpretation (test Abnormal code = 16145-0) [facility] W/PLT COUNT & AUTO [id number] 05:23:00 Test Item Value Reference Range Interpretation Comments WHITE BLOOD CELL COUNT (BEAKER) 3.4 K/ L 3.5-10.5 L (test code = 775) RED BLOOD CELL COUNT (BEAKER) 2.59 M/ L 3.93-5.22 L (test code = 761) HEMOGLOBIN (BEAKER) (test code = 7.0 GM/DL 11.2-15.7 L 410) HEMATOCRIT (BEAKER) (test code = 23.8 % 34.1-44.9 L 411) MEAN CORPUSCULAR VOLUME (BEAKER) 91.9 fL 79.4-94.8 (test code = 753) MEAN CORPUSCULAR HEMOGLOBIN 27.0 pg 25.6-32.2 (BEAKER) (test code = 751) MEAN CORPUSCULAR HEMOGLOBIN CONC 29.4 GM/DL 32.2-35.5 L (BEAKER) (test code = 752) RED CELL DISTRIBUTION WIDTH 19.6 % 11.7-14.4 H (BEAKER) (test code = 412) PLATELET COUNT (BEAKER) (test code 34 K/CU MM 150-450 L = 756) MEAN PLATELET VOLUME (BEAKER) 10.8 fL 9.4-12.3 (test code = 754) NUCLEATED RED BLOOD CELLS (BEAKER) 0 /100 WBC 0-0 (test code = 413) NEUTROPHILS RELATIVE PERCENT 66 % (BEAKER) (test code = 429) LYMPHOCYTES RELATIVE PERCENT 18 % (BEAKER) (test code = 430) MONOCYTES RELATIVE PERCENT 12 % (BEAKER) (test code = 431) EOSINOPHILS RELATIVE PERCENT 4 % (BEAKER) (test code = 432) BASOPHILS RELATIVE PERCENT 0 % (BEAKER) (test code = 437) NEUTROPHILS ABSOLUTE COUNT 2.25 K/ L 1.56-6.13 (BEAKER) (test code = 670) LYMPHOCYTES ABSOLUTE COUNT 0.63 K/ L 1.18-3.74 L (BEAKER) (test code = 414) MONOCYTES ABSOLUTE COUNT (BEAKER) 0.41 K/ L 0.24-0.36 H (test code = 415) EOSINOPHILS ABSOLUTE COUNT 0.12 K/ L 0.04-0.36 (BEAKER) (test code = 416) BASOPHILS ABSOLUTE COUNT (BEAKER) 0.01 K/ L 0.01-0.08 (test code = 417) IMMATURE GRANULOCYTES-RELATIVE 0 % 0-1 PERCENT (BEAKER) (test code = 2801) HEMOGLOBIN AND [id number] 05:23:00 Test Item Value Reference Range Interpretation Comments HEMOGLOBIN (BEAKER) (test code = 7.0 GM/DL 11.2-15.7 L 410) HEMATOCRIT (BEAKER) (test code = 23.8 % 34.1-44.9 L 411) HEMOGLOBIN AND [id number] 18:32:00 Test Item Value Reference Range Interpretation Comments HEMOGLOBIN (BEAKER) (test code = 8.5 GM/DL 11.2-15.7 L 410) HEMATOCRIT (BEAKER) (test code = 28.2 % 34.1-44.9 L 411) Rn Surgical Pcu ID - [id number]-CoV2/RT-PCR (Asymptomatic ONLY)2020-12-22 11:29:00 Test Item Value Reference Range Interpretation Comments SARS-COV2/RT-PCR Negative Not Detected, (test code = Negative, See 67001-1) external report for linked test SARS-COV-2 [facility] PERFORMING LAB (test code = 82906-9) JULIAN (test code = Negative result for this JULIAN) test determines that SARS-CoV-2 RNA was not present in the specimen above the Limit of Detection (LOD). However, Negative results do not preclude SARS-CoV-2 infection and should not be used as the sole basis for treatment or patient management decisions. Negative results must be combined with clinical observations, patient history, and epidemiological information. A false negative result may occur if a specimen is improperly collected, transported or handled. A false negative result should be considered if patient's recent exposures or clinical presentation indicate that COVID-19 (SARS-CoV-2) is likely and diagnostic tests for other causes of illness are negative. Re-testing should be considered in cases of suspected false negatives. The limit of detection for this assay is 800 copies/mL. This SARS CoV-2 test is a real-time RT-PCR test intended for the qualitative detection of nucleic acid from SARS-CoV-2 in a nasopharyngeal swab specimen collected from individuals suspected of COVID-19 by their healthcare provider. This test has not been Food and Drug Administration (FDA) cleared or approved. This is a modified version of an approved Emergency Use Authorization (EUA) and is in the process of review by the FDA. Once authorized by the FDA, the issued EUA will be effective until the declaration that circumstances exist justifying the authorization of the emergency use of in vitro diagnostic tests for detection and/or diagnosis of COVID-19 is terminated under Section 564(b)(2) of the Act or the EUA is revoked under Section 564(g) of the Act. Fact Sheet for Healthcare Providers:https://www.[employer]/sites/default/f raeann/product/documents/F act_Sheet_HC_Providers_L thw_WHCV-TxG-1.pdf Fact Sheet for Healthcare Patients:https://www.[employer]/sites/default/fi les/product/documents/Fa ct_Sheet_Patients_Lyra_S ARS-CoV-2.pdf Performing Laboratory:[facility] [place] [address] [facility])2020-12-22 11:29:00 Test Item Value Reference Range Interpretation Comments SARS-COV2/RT-PCR (test Negative Not Detected, Negative, code = 1825778) See external report for linked test SARS-COV-2 PERFORMING LAB [facility] (test code = 5050484) Negative result for this test determines that SARS-CoV-2 RNA was not present in the specimen above the Limit of Detection (LOD). However, Negative results do not preclude SARS-CoV-2 infection and should not be used as the sole basis for treatment or patient management decisions. Negative results mustbe combined with clinical observations, patient history, and epidemiological information. A false negative result may occur if a specimen is improperly collected, transported or handled. A false negative result should be considered if patient's recent exposures or clinical presentation indicate that COVID-19 (SARS-CoV-2) is likely and diagnostic tests for other causes of illness are negative. Re-testing should be considered in cases of suspected false negatives.The limit of detection for this assay is 800 copies/mL.This SARS CoV-2 test is a real-time RT-PCR test intended for the qualitative detection of nucleic acid from SARS-CoV-2 in a nasopharyngeal swab specimen collected from individuals susp ected of COVID-19 by their healthcare provider.This test has not been Food and Drug Administration (FDA) cleared or approved. This is a modified version of an approved Emergency Use Authorization (EUA) and is in the process of review by the FDA. Once authorized by the FDA, the issued EUA will be effective until the declaration that circumstances exist justifying the authorization of the emergency use of in vitro diagnostic tests for detection and/or diagnosis of COVID-19 is terminated under Section 564(b)(2) of the Act or the EUA is revoked under Section 564(g) of the Act.Fact Sheet for Healthcare Providers:https://www.[employer].com/sites/default/files/product/documents/Fact_Shee c_CO_Nxjvmgmik_Zlhi_HNVL-KxB-1.pdfFact Sheet for Healthcare Patients:https://www.[employer].com/sites/default/files/product/ documents/Akqz_Gxprj_Hptjvzal_Kftq_AQLX-GgL-9.pdfPerforming Laboratory:[facility], [place] [address]VZAQ-SMXWIQE METER 2020-12-22 05:38:00 Test Item Value Reference Range Interpretation Comments POC-GLUCOSE METER 142 mg/dL 70-110 H : TESTED A T [facility] 6720 (BEAKER) (test code = MICHEL [place], 1538) [address]: Rn Surgical Pcu/Techni sanjeev ID = [id number] for Kaylynn Dill Basic metabolic [id number] 04:34:00 Test Item Value Reference Range Interpretation Comments Sodium (test code = 137 meq/L 472-471 1645-2) Potassium (test code = 5.1 meq/L 3.5-5.1 2823-3) Chloride (test code = 111 meq/L 98-107 H 2075-0) CO2 (test code = 19 meq/L 22-29 L 2028-9) BUN (test code = 6 mg/dL 7-21 L 3094-0) Creatinine (test code 1.06 mg/dL 0.57-1.25 = 2160-0) Glucose (test code = 138 mg/dL 70-105 H 2345-7) Calcium (test code = 8.3 mg/dL 8.4-10.2 L 11563-8) EGFR (test code = 54 mL/min/1.73 [place] [address]-1) NOT ACCURATE CREATININE CLEARANCE IN PREDICTING GLOMERULAR FILTRATION RATE . ESTIMATED GFR I S NOT APPLICABLE FOR DIALYSIS PATIENTS. JULIAN (test code = JULIAN) Rn Surgical Pcu ID - MARCUS Niño Lab Interpretation Abnormal (test code = 88568-9) [facility] [id number] 04:34:00 Test Item Value Reference Range Interpretation Comments Protein, Total (test 6.2 See_Comment [Autom ated code = 2885-2) message] The system which generated this result transmit gaby reference range : 6.0 - 8.3 gm/dL . The reference range was not u sed to interpret th is result as normal/abnormal . Albumin (test code = 3.0 g/dL 3.5-5 L 08764-0) Total Bilirubin (test 0.7 mg/dL 0.2-1.2 code = 1974-2) Bilirubin, Direct 0.4 mg/dL 0.1-0.5 (test code = 1967-7) Alkaline Phosphatase 105 U/L 40-150 (test code = 6768-6) AST (test code = 34 U/L 5-34 1920-8) ALT (test code = 26 U/L 6-55 1742-6) JULIAN (test code = JULIAN) Rn Surgical Pcu ID Joaquin VELAZQUEZ W Lab Interpretation Abnormal (test code = 01099-6) [facility]00 Test Item Value Reference Range Interpretation Comments Phosphorus (test code = 3.3 mg/dL 2.3-4.7 2777-1) JULIAN (test code = JULIAN) Rn Surgical Pcu ID Joaquin VELAZQUEZ W Lab Interpretation (test Normal code = 92833-4) [facility] [id number] 04:34:00 Test Item Value Reference Range Interpretation Comments SODIUM (BEAKER) 137 meq/L 136-145 (test code = 381) POTASSIUM (BEAKER) 5.1 meq/L 3.5-5.1 (test code = 379) CHLORIDE (BEAKER) 111 meq/L 98-107 H (test code = 382) CO2 (BEAKER) (test 19 meq/L 22-29 L code = 355) BLOOD UREA NITROGEN 6 mg/dL 7-21 L (BEAKER) (test code = 354) CREATININE (BEAKER) 1.06 mg/dL 0.57-1.25 (test code = 358) GLUCOSE RANDOM 138 mg/dL 70-105 H (BEAKER) (test code = 652) CALCIUM (BEAKER) 8.3 mg/dL 8.4-10.2 L (test code = 697) EGFR (BEAKER) (test 54 mL/min/1.73 ESTIMA GABY GFR IS code = 1092) sq m NOT ACCURATE CREATININE CLEARANCE IN PREDICTING GLOMERULAR FILTRATION RATE . ESTIMATED GFR I S NOT APPLICABLE FOR DIALYSIS PATIEN TS. Rn Surgical Pcu ID - MARCUS [id number] 04:34:00 Test Item Value Reference Range Interpretation Comments MAGNESIUM (BEAKER) (test code = 1.3 mg/dL 1.6-2.6 L 627) Rn Surgical Pcu ID - MARCUS [id number] 04:34:00 Test Item Value Reference Range Interpretation Comments PHOSPHORUS (BEAKER) (test code = 3.3 mg/dL 2.3-4.7 604) Rn Surgical Pcu ID - MARCUS WHEPATIC FUNCTION [id number] 04:34:00 Test Item Value Reference Range Interpretation Comments TOTAL PROTEIN (BEAKER) (test code = 6.2 gm/dL 6.0-8.3 770) ALBUMIN (BEAKER) (test code = 1145) 3.0 g/dL 3.5-5.0 L BILIRUBIN TOTAL (BEAKER) (test code 0.7 mg/dL 0.2-1.2 = 377) BILIRUBIN DIRECT (BEAKER) (test 0.4 mg/dL 0.1-0.5 code = 706) ALKALINE PHOSPHATASE (BEAKER) (test 105 U/L 40-150 code = 346) AST (SGOT) (BEAKER) (test code = 34 U/L 5-34 353) ALT (SGPT) (BEAKER) (test code = 26 U/L 6-55 347) Rn Surgical Pcu ID - MARCUS WCBC W/PLT COUNT & AUTO [id number] 04:18:00 Test Item Value Reference Range Interpretation Comments WHITE BLOOD CELL COUNT (BEAKER) 3.7 K/ L 3.5-10.5 (test code = 775) RED BLOOD CELL COUNT (BEAKER) 2.67 M/ L 3.93-5.22 L (test code = 761) HEMOGLOBIN (BEAKER) (test code = 7.3 GM/DL 11.2-15.7 L 410) HEMATOCRIT (BEAKER) (test code = 23.6 % 34.1-44.9 L 411) MEAN CORPUSCULAR VOLUME (BEAKER) 88.4 fL 79.4-94.8 (test code = 753) MEAN CORPUSCULAR HEMOGLOBIN 27.3 pg 25.6-32.2 (BEAKER) (test code = 751) MEAN CORPUSCULAR HEMOGLOBIN CONC 30.9 GM/DL 32.2-35.5 L (BEAKER) (test code = 752) RED CELL DISTRIBUTION WIDTH 19.8 % 11.7-14.4 H (BEAKER) (test code = 412) PLATELET COUNT (BEAKER) (test code 31 K/CU MM 150-450 L = 756) MEAN PLATELET VOLUME (BEAKER) 11.4 fL 9.4-12.3 (test code = 754) NUCLEATED RED BLOOD CELLS (BEAKER) 0 /100 WBC 0-0 (test code = 413) NEUTROPHILS RELATIVE PERCENT 66 % (BEAKER) (test code = 429) LYMPHOCYTES RELATIVE PERCENT 18 % (BEAKER) (test code = 430) MONOCYTES RELATIVE PERCENT 12 % (BEAKER) (test code = 431) EOSINOPHILS RELATIVE PERCENT 3 % (BEAKER) (test code = 432) BASOPHILS RELATIVE PERCENT 0 % (BEAKER) (test code = 437) NEUTROPHILS ABSOLUTE COUNT 2.45 K/ L 1.56-6.13 (BEAKER) (test code = 670) LYMPHOCYTES ABSOLUTE COUNT 0.67 K/ L 1.18-3.74 L (BEAKER) (test code = 414) MONOCYTES ABSOLUTE COUNT (BEAKER) 0.45 K/ L 0.24-0.36 H (test code = 415) EOSINOPHILS ABSOLUTE COUNT 0.10 K/ L 0.04-0.36 (BEAKER) (test code = 416) BASOPHILS ABSOLUTE COUNT (BEAKER) 0.01 K/ L 0.01-0.08 (test code = 417) IMMATURE GRANULOCYTES-RELATIVE 0 % 0-1 PERCENT (BEAKER) (test code = 2801) POCT-GLUCOSE [id number] 01:24:00 Test Item Value Reference Range Interpretation Comments POC-GLUCOSE METER 121 mg/dL 70-110 H : TESTED A T [facility] 6720 (BEAKER) (test code = [place], 1538) [address]: Rn Surgical Pcu/Techni sanjeev ID = [id number] for Kaylynn Dill [id number] 19:21:00 Test Item Value Reference Range Interpretation Comments PTT (test code = 07968-7) 29.1 See_Comment [ Automated message] The system [employer] generated this result transmitted ref erence range: 22.5 - 3 6.0 seconds. The re ference range was not u sed to interpret this result as normal/abnor mal. Lab Interpretation (test Normal code = 44274-3) [facility] 19:21:00 Test Item Value Reference Range Interpretation Comments PARTIAL THROMBOPLASTIN TIME 29.1 seconds 22.5-36.0 (BEAKER) (test code = 760) Lactic acid, venous [id number] 19:20:00 Test Item Value Reference Range Interpretation Comments Lactate, Venous (test 1.18 mmol/L 0.5-2.2 Specim en code = 2872) markedly hemolyzed JULIAN (test code = JULIAN) Rn Surgical Pcu ID - DB Lab Interpretation Normal (test code = 46003-7) [facility]LACT[facility] ACID, [id number] 19:20:00 Test Item Value Reference Range Interpretation Comments LACTATE BLOOD VENOUS 1.18 mmol/L 0.50-2.20 Specime n markedly (2) (BEAKER) (test hemolyzed code = 2872) Rn Surgical Pcu ID - DBPROTHROMBIN TIME/[id number] 19:19:00 Test Item Value Reference Range Interpretation Comments PROTIME (BEAKER) 15.4 seconds 11.9-14.2 H (test code = 759) INR (BEAKER) (test 1.24 See_Comment [Automat ed message] code = 370) The system [facility] generated this result transmitted ref erence range: <=5.90. The reference range was not used to int erpret this result as normal/abnormal . RECOMMENDED COUMADIN/WARFARIN INR THERAPY RANGESSTANDARD DOSE: 2.0 - 3.0 Includes: PROPHYLAXIS forvenous thrombosis, systemic embolization; TREATMENT for venous thrombosis and/or pulmonary embolus.HIGH RISK: Target INR is 2.5-3.5 for patients with mechanical heart valves.[id number] 19:16:00 Test Item Value Reference Range Interpretation Comments Ammonia (test code = 21 See_[place] [address]-0) moderately hemolyzed [Automated message] The system which generated this result transmit gaby reference range : 18 - 72 mol/L . The reference range was not u sed to interpret th is result as normal/abnormal . JULIAN (test code = JULIAN) Rn Surgical Pcu ID - DB Lab Interpretation Normal (test code = 23805-2) [facility] 19:16:00 Test Item Value Reference Range Interpretation Comments AMMONIA (BEAKER) 21 mol/L 18-72 Specimen mo derately (test code = 348) hemolyzed Rn Surgical Pcu ID - DBBASIC METABOLIC [id number] 16:19:00 Test Item Value Reference Range Interpretation Comments SODIUM (BEAKER) 141 meq/L 136-145 (test code = 381) POTASSIUM (BEAKER) 4.9 meq/L 3.5-5.1 (test code = 379) CHLORIDE (BEAKER) 113 meq/L 98-107 H (test code = 382) CO2 (BEAKER) (test 18 meq/L 22-29 L code = 355) BLOOD UREA NITROGEN 7 mg/dL 7-21 (BEAKER) (test code = 354) CREATININE (BEAKER) 1.12 mg/dL 0.57-1.25 (test code = 358) GLUCOSE RANDOM 120 mg/dL 70-105 H (BEAKER) (test code = 652) CALCIUM (BEAKER) 8.6 mg/dL 8.4-10.2 (test code = 697) EGFR (BEAKER) (test 51 mL/min/1.73 ESTIMA GABY GFR IS code = 1092) sq m NOT ACCURATE CREATININE CLEARANCE IN PREDICTING GLOMERULAR FILTRATION RATE . ESTIMATED GFR I S NOT APPLICABLE FOR DIALYSIS PATIEN TS. Rn Surgical Pcu ID - DBHEPATIC FUNCTION [id number] 16:19:00 Test Item Value Reference Range Interpretation Comments TOTAL PROTEIN (BEAKER) (test code = 7.0 gm/dL 6.0-8.3 770) ALBUMIN (BEAKER) (test code = 1145) 3.5 g/dL 3.5-5.0 BILIRUBIN TOTAL (BEAKER) (test code 0.7 mg/dL 0.2-1.2 = 377) BILIRUBIN DIRECT (BEAKER) (test 0.4 mg/dL 0.1-0.5 code = 706) ALKALINE PHOSPHATASE (BEAKER) (test 124 U/L 40-150 code = 346) AST (SGOT) (BEAKER) (test code = 55 U/L 5-34 H 353) ALT (SGPT) (BEAKER) (test code = 36 U/L 6-55 347) Rn Surgical Pcu ID - DBCBC W/PLT COUNT & AUTO [id number] 16:00:00 Test Item Value Reference Range Interpretation Comments WHITE BLOOD CELL COUNT (BEAKER) 5.7 K/ L 3.5-10.5 (test code = 775) RED BLOOD CELL COUNT (BEAKER) 3.19 M/ L 3.93-5.22 L (test code = 761) HEMOGLOBIN (BEAKER) (test code = 8.6 GM/DL 11.2-15.7 L 410) HEMATOCRIT (BEAKER) (test code = 28.6 % 34.1-44.9 L 411) MEAN CORPUSCULAR VOLUME (BEAKER) 89.7 fL 79.4-94.8 (test code = 753) MEAN CORPUSCULAR HEMOGLOBIN 27.0 pg 25.6-32.2 (BEAKER) (test code = 751) MEAN CORPUSCULAR HEMOGLOBIN CONC 30.1 GM/DL 32.2-35.5 L (BEAKER) (test code = 752) RED CELL DISTRIBUTION WIDTH 19.9 % 11.7-14.4 H (BEAKER) (test code = 412) PLATELET COUNT (BEAKER) (test code 55 K/CU MM 150-450 L = 756) MEAN PLATELET VOLUME (BEAKER) 11.7 fL 9.4-12.3 (test code = 754) NUCLEATED RED BLOOD CELLS (BEAKER) 0 /100 WBC 0-0 (test code = 413) NEUTROPHILS RELATIVE PERCENT 73 % (BEAKER) (test code = 429) LYMPHOCYTES RELATIVE PERCENT 14 % (BEAKER) (test code = 430) MONOCYTES RELATIVE PERCENT 10 % (BEAKER) (test code = 431) EOSINOPHILS RELATIVE PERCENT 2 % (BEAKER) (test code = 432) BASOPHILS RELATIVE PERCENT 0 % (BEAKER) (test code = 437) NEUTROPHILS ABSOLUTE COUNT 4.12 K/ L 1.56-6.13 (BEAKER) (test code = 670) LYMPHOCYTES ABSOLUTE COUNT 0.79 K/ L 1.18-3.74 L (BEAKER) (test code = 414) MONOCYTES ABSOLUTE COUNT (BEAKER) 0.59 K/ L 0.24-0.36 H (test code = 415) EOSINOPHILS ABSOLUTE COUNT 0.13 K/ L 0.04-0.36 (BEAKER) (test code = 416) BASOPHILS ABSOLUTE COUNT (BEAKER) 0.02 K/ L 0.01-0.08 (test code = 417) IMMATURE GRANULOCYTES-RELATIVE 0 % 0-1 PERCENT (BEAKER) (test code = 2801) BASIC METABOLIC [id number] 14:31:00 Test Item Value Reference Range Interpretation Comments SODIUM (BEAKER) 141 meq/L 136-145 (test code = 381) POTASSIUM (BEAKER) 3.8 meq/L 3.5-5.1 (test code = 379) CHLORIDE (BEAKER) 110 meq/L 98-107 H (test code = 382) CO2 (BEAKER) (test 22 meq/L 22-29 code = 355) BLOOD UREA NITROGEN 6 mg/dL 7-21 L (BEAKER) (test code = 354) CREATININE (BEAKER) 1.19 mg/dL 0.57-1.25 (test code = 358) GLUCOSE RANDOM 122 mg/dL 70-105 H (BEAKER) (test code = 652) CALCIUM (BEAKER) 9.2 mg/dL 8.4-10.2 (test code = 697) EGFR (BEAKER) (test 48 mL/min/1.73 ESTIMA GABY GFR IS code = 1092) sq m NOT ACCURATE CREATININE CLEARANCE IN PREDICTING GLOMERULAR FILTRATION RATE . ESTIMATED GFR I S NOT APPLICABLE FOR DIALYSIS PATIEN TS. Rn Surgical Pcu ID - PIAYA LHEPATIC FUNCTION [id number] 14:31:00 Test Item Value Reference Range Interpretation Comments TOTAL PROTEIN (BEAKER) (test code = 7.0 gm/dL 6.0-8.3 770) ALBUMIN (BEAKER) (test code = 1145) 3.5 g/dL 3.5-5.0 BILIRUBIN TOTAL (BEAKER) (test code 0.5 mg/dL 0.2-1.2 = 377) BILIRUBIN DIRECT (BEAKER) (test 0.3 mg/dL 0.1-0.5 code = 706) ALKALINE PHOSPHATASE (BEAKER) (test 121 U/L 40-150 code = 346) AST (SGOT) (BEAKER) (test code = 38 U/L 5-34 H 353) ALT (SGPT) (BEAKER) (test code = 31 U/L 6-55 347) Rn Surgical Pcu ID - PIAYA LPROTHROMBIN TIME/[id number] 14:12:00 Test Item Value Reference Range Interpretation Comments PROTIME (BEAKER) 15.2 seconds 11.9-14.2 H (test code = 759) INR (BEAKER) (test 1.22 See_Comment [Automat ed message] code = 370) The system [facility] generated this result transmitted ref erence range: <=5.90. The reference range was not used to int erpret this result as normal/abnormal . RECOMMENDED COUMADIN/WARFARIN INR THERAPY RANGESSTANDARD DOSE: 2.0 - 3.0 Includes: PROPHYLAXIS forvenous thrombosis, systemic embolization; TREATMENT for venous thrombosis and/or pulmonary embolus.HIGH RISK: Target INR is 2.5-3.5 for patients with mechanical heart valves.CBC W/PLT COUNT & AUTO DIFFERENTIAL 2020-12-20 14:08:00 Test Item Value Reference Range Interpretation Comments WHITE BLOOD CELL COUNT (BEAKER) 4.4 K/ L 3.5-10.5 (test code = 775) RED BLOOD CELL COUNT (BEAKER) 3.05 M/ L 3.93-5.22 L (test code = 761) HEMOGLOBIN (BEAKER) (test code = 8.3 GM/DL 11.2-15.7 L 410) HEMATOCRIT (BEAKER) (test code = 26.7 % 34.1-44.9 L 411) MEAN CORPUSCULAR VOLUME (BEAKER) 87.5 fL 79.4-94.8 (test code = 753) MEAN CORPUSCULAR HEMOGLOBIN 27.2 pg 25.6-32.2 (BEAKER) (test code = 751) MEAN CORPUSCULAR HEMOGLOBIN CONC 31.1 GM/DL 32.2-35.5 L (BEAKER) (test code = 752) RED CELL DISTRIBUTION WIDTH 19.7 % 11.7-14.4 H (BEAKER) (test code = 412) PLATELET COUNT (BEAKER) (test code 42 K/CU MM 150-450 L = 756) MEAN PLATELET VOLUME (BEAKER) 12.8 fL 9.4-12.3 H (test code = 754) NUCLEATED RED BLOOD CELLS (BEAKER) 0 /100 WBC 0-0 (test code = 413) NEUTROPHILS RELATIVE PERCENT 64 % (BEAKER) (test code = 429) LYMPHOCYTES RELATIVE PERCENT 19 % (BEAKER) (test code = 430) MONOCYTES RELATIVE PERCENT 13 % (BEAKER) (test code = 431) EOSINOPHILS RELATIVE PERCENT 4 % (BEAKER) (test code = 432) BASOPHILS RELATIVE PERCENT 0 % (BEAKER) (test code = 437) NEUTROPHILS ABSOLUTE COUNT 2.84 K/ L 1.56-6.13 (BEAKER) (test code = 670) LYMPHOCYTES ABSOLUTE COUNT 0.83 K/ L 1.18-3.74 L (BEAKER) (test code = 414) MONOCYTES ABSOLUTE COUNT (BEAKER) 0.55 K/ L 0.24-0.36 H (test code = 415) EOSINOPHILS ABSOLUTE COUNT 0.16 K/ L 0.04-0.36 (BEAKER) (test code = 416) BASOPHILS ABSOLUTE COUNT (BEAKER) 0.01 K/ L 0.01-0.08 (test code = 417) IMMATURE GRANULOCYTES-RELATIVE 1 % 0-1 PERCENT (BEAKER) (test code = 2801) please check [id number] 12:14:00Scan ResultQUEST NON- INTERFACED LABCHI [facility] CenterZinc2021-07-17 19:10:00 Test Item Value Reference Interpretation Comments Range Zinc (test code = 47 See_Comment L This test was 4254220) developed and i ts analytical performance characteristics have been determined by [employer]. It has not been cleared or appr salty by theFDA. This assay has been validated pursu ant to the CLIA regulations and is used for clinic al purposes. [Auto mated message] The sy stem which generated this result transmit gaby reference range : 60 - 130 mcg/dL. T he reference range was not used to interpret this result as normal/abnormal . JULIAN (test code = Performing Lab JULIAN) *[employer] [place], [address] [place] [phone] Sheri Mccall MD Lab Interpretation Abnormal (test code = 46342-0) [facility] 11:43:00 Test Item Value Reference Range Interpretation Comments Copper (test 118 See_Comment This test was code = developed and i ts 7041493) analytical perf ormance characteristics have been determined by [employer] [facility]. It has not been cl eared or approved by theFDA. This assay has been validated pursu ant to the CLIA regula tions and is used for clinical purpos es. [Automated mess age] The system whic h generated this result transmitted ref erence range: 70 - 175 mcg/dL. The ref erence range was not u sed to interpret this result as normal/abnor mal. JULIAN (test code Performing Lab = JULIAN) *[employer] [employer] [place], [address] [place] [address] Sheri Mccall MD [facility] HospitalANTI-MITOCHONDRIAL AB, REFLEX TO [id number] 07:43:00 Test Item Value Reference Range Interpretation Comments SCAN RESULT (test code = 9728674) Anti-Mitochondrial Ab, reflex to [id number] 07:43:00Scan ResultQUEST DIAGNOSTIC INCORPORATEDCoalinga State HospitalHepatitis B e antibody 2020-12-14 20:25:00 Test Item Value Reference Range Interpretation Comments Hep Be NONREACTIVE REFERENCE RANG E: Ab(Anti-Hbe) NONREACTIVE For (test code = additional 7181278) information, pl ease refer tohttp://educat ion.3CLogic .BedyCasa/ faq/XFP977(This link is being provid ed for informational/e ducat ional purposes only.) JULIAN (test code Performing Lab = JULIAN) *[facility] [address] [place] [address] Chalo Burnham MD [facility] HospitalBLOOD [id number] 20:01:00 Test Item Value Reference Range Interpretation Comments CULTURE (BEAKER) (test No growth in 5 days code = 1095) BLOOD [id number] 20:01:00 Test Item Value Reference Range Interpretation Comments CULTURE (BEAKER) (test No growth in 5 days code = 1095) Mitochondrial Ab [id number] 12:49:00 Test Item Value Reference Range Interpretation Comments Anti-Mitocho NEGATIVE NEGATIVE This test was developed nd Abs (test and its analyti iglesia code = performance 5168210) characteristics havebeen determined by [employer] [facility].It h as not been cleared or approved by FDA. This as say has been validatedp ursuant to the CLIA reg ulations and is used for clinical purposes. JULIAN (test Performing Lab code = JULIAN) [facility] [address] [place] [address] Gab Mckeon MD, PhD, DEBI [facility] HospitalMitochondrial Ab [id number] 12:49:00 Test Item Value Reference Range Interpretation Comments Mitochondrial Ab TNP See_Comment Test Not Titer (test code = Performed . 1565772) Screening test Negative or Not Detected. Titer notperformed. [Automated message] The system which generated this result transmitted reference range : <1:20. The reference range was not used to interpret this result as normal/abnormal . JULIAN (test code = Performing Lab JULIAN) [facility] [place] [address] [place] [address] Gab Mckeon MD, PhD, DEBI [facility] HospitalActin (Smooth Muscle) Antibody, [id number] 22:22:00 Test Item Value Reference Range Interpretation Comments Anti-Smooth <20 See Note: U Reference Range :<20 Muscle Ab NEGATIVE> O R = 20 (test code = POSITIVE Antibo dies ) recognizing act in are the main compon entof smooth muscle antibodies asso ciated withautoimmune liver disease. Actin antibodies aref ound in approximatel y 75% of patients withautoimmune hepatitis (AIH) type 1, approximatel y65% of patients wit h autoimmune cholangitis,annabella roxima tely 30% of pat ients with primary biliarycirrhosi s, and approximately 2 % of healthy people. High values are clos rachel correlated with AIH type 1. JULIAN (test code Performing Lab = JULIAN) [facility] [employer] [facility] [address] [place] [address] Gab Mckeon MD, PhD, DEBI [facility] HospitalPOCT-GLUCOSE [id number] 16:42:00 Test Item Value Reference Range Interpretation Comments POC-GLUCOSE METER 195 mg/dL 70-110 H : TESTED A T [facility] 6720 (BEAKER) (test code [facility], = 1538) 10243: Rn Surgical Pcu/Techni sanjeev ID = [id number] for JAK S LATMARCELARIA Hepatitis B e [id number] 16:32:00 Test Item Value Reference Range Interpretation Comments Hep Be Ag NONREACTIVE REFERENCE RANG ES: (Antigen) NONREACTIVE For (test code = additional 2221167) information, pl ease refer tohttp://educat ion.3CLogic .BedyCasa/ faq/NST172(This link is being provid ed for informational/e ducat ional purposes only.) JULIAN (test code Performing Lab = JULIAN) *[facility] [address] [place] [address] Chalo Burnham MD [facility] HospitalCarbohydrate antigen 19-9 (CA 19-9)2020-12-13 14:29:00 Test Item Value Reference Range Interpretation Comments CA 19-9 26 U/mL <34 This test was (test code = performed using the 17268-2) Siemens Chemiluminescen t method.Values o btained from different assay methods cannot be used interchangeably .CA19-9 levels, regardl ess of value, should n ot be interpreted as absoluteevidenc e of the presence or abs ence of disease. JULIAN (test Performing Lab code = JULIAN) EZ [employer] [place] [address] [place] [address] Gab Mckeon MD, PhD, DEBI [facility] HospitalCeruloplasmin2021-07-14 14:13:00 Test Item Value Reference Range Interpretation Comments Ceruloplasmin (test code 28 mg/dL 18-53 = 6795187) JULIAN (test code = JULIAN) Performing Lab *MI[facility], [address] [place] [address] Sheri Mccall MD [facility] HospitalPOCT-GLUCOSE [id number] 11:53:00 Test Item Value Reference Range Interpretation Comments POC-GLUCOSE METER 308 mg/dL 70-110 H : TESTED A T [facility] 6720 (BEAKER) (test code [facility], = 1538) [address]: Rn Surgical Pcu/Techni sanjeev ID = [id number] for LEWI S, LATANDRIA POCT-GLUCOSE [id number] 07:27:00 Test Item Value Reference Range Interpretation Comments POC-GLUCOSE METER 271 mg/dL 70-110 H : TESTED A T [facility] 6720 (BEAKER) (test code [facility], = 1538) 585[address]: Rn Surgical Pcu/Techni sanjeev ID = [id number] for LEWI S, LATANDRI[place] Calcium, [id number] 05:41:00 Test Item Value Reference Range Interpretation Comments Calcium, Ion (test code = 1993-3) 1.09 mmol/L 1.12-1.27 L pH, Blood (test code = 11124-2) 7.40 Lab Interpretation (test code = Abnormal 44669-9) [facility] HospitalCALCIUM, [id number] 05:41:00 Test Item Value Reference Range Interpretation Comments CALCIUM IONIZED (BEAKER) (test 1.09 mmol/L 1.12-1.27 L code = 698) PH, BLOOD (BEAKER) (test code = 7.40 1810) COMPREHENSIVE METABOLIC [id number] 04:31:00 Test Item Value Reference Range Interpretation Comments TOTAL PROTEIN 5.8 gm/dL 6.0-8.3 L (BEAKER) (test code = 770) ALBUMIN (BEAKER) 3.0 g/dL 3.5-5.0 L (test code = 1145) ALKALINE PHOSPHATASE 61 U/L 40-150 (BEAKER) (test code = 346) BILIRUBIN TOTAL 0.5 mg/dL 0.2-1.2 (BEAKER) (test code = 377) SODIUM (BEAKER) (test 140 meq/L 136-145 code = 381) POTASSIUM (BEAKER) 3.2 meq/L 3.5-5.1 L (test code = 379) CHLORIDE (BEAKER) 109 meq/L 98-107 H (test code = 382) CO2 (BEAKER) (test 21 meq/L 22-29 L code = 355) BLOOD UREA NITROGEN 10 mg/dL 7-21 (BEAKER) (test code = 354) CREATININE (BEAKER) 1.11 mg/dL 0.57-1.25 (test code = 358) GLUCOSE RANDOM 201 mg/dL 70-105 H (BEAKER) (test code = 652) CALCIUM (BEAKER) 7.9 mg/dL 8.4-10.2 L (test code = 697) AST (SGOT) (BEAKER) 29 U/L 5-34 (test code = 353) ALT (SGPT) (BEAKER) 26 U/L 6-55 (test code = 347) EGFR (BEAKER) (test 52 mL/min/1.73 ESTIMA GABY GFR IS code = 1092) sq m NOT ACCURATE CREATININE CLEARANCE IN PREDICTING GLOMERULAR FILTRATION RATE . ESTIMATED GFR I S NOT APPLICABLE FOR DIALYSIS PATIEN TS. Rn Surgical Pcu ID - MAGDIEL [id number] 04:25:00 Test Item Value Reference Range Interpretation Comments MAGNESIUM (BEAKER) (test code = 1.5 mg/dL 1.6-2.6 L 627) Rn Surgical Pcu ID - MAGDIEL [id number] 04:25:00 Test Item Value Reference Range Interpretation Comments PHOSPHORUS (BEAKER) (test code = 2.4 mg/dL 2.3-4.7 604) [facility] ID - MAGDIEL MCBC W/PLT COUNT & AUTO [id number] 03:59:00 Test Item Value Reference Range Interpretation Comments WHITE BLOOD CELL COUNT (BEAKER) 2.9 K/ L 3.5-10.5 L (test code = 775) RED BLOOD CELL COUNT (BEAKER) 2.79 M/ L 3.93-5.22 L (test code = 761) HEMOGLOBIN (BEAKER) (test code = 7.6 GM/DL 11.2-15.7 L 410) HEMATOCRIT (BEAKER) (test code = 23.6 % 34.1-44.9 L 411) MEAN CORPUSCULAR VOLUME (BEAKER) 84.6 fL 79.4-94.8 (test code = 753) MEAN CORPUSCULAR HEMOGLOBIN 27.2 pg 25.6-32.2 (BEAKER) (test code = 751) MEAN CORPUSCULAR HEMOGLOBIN CONC 32.2 GM/DL 32.2-35.5 (BEAKER) (test code = 752) RED CELL DISTRIBUTION WIDTH 19.1 % 11.7-14.4 H (BEAKER) (test code = 412) PLATELET COUNT (BEAKER) (test code 34 K/CU MM 150-450 L = 756) MEAN PLATELET VOLUME (BEAKER) 9.7 fL 9.4-12.3 (test code = 754) NUCLEATED RED BLOOD CELLS (BEAKER) 1 /100 WBC 0-0 H (test code = 413) NEUTROPHILS RELATIVE PERCENT 63 % (BEAKER) (test code = 429) LYMPHOCYTES RELATIVE PERCENT 21 % (BEAKER) (test code = 430) MONOCYTES RELATIVE PERCENT 12 % (BEAKER) (test code = 431) EOSINOPHILS RELATIVE PERCENT 4 % (BEAKER) (test code = 432) BASOPHILS RELATIVE PERCENT 0 % (BEAKER) (test code = 437) NEUTROPHILS ABSOLUTE COUNT 1.81 K/ L 1.56-6.13 (BEAKER) (test code = 670) LYMPHOCYTES ABSOLUTE COUNT 0.60 K/ L 1.18-3.74 L (BEAKER) (test code = 414) MONOCYTES ABSOLUTE COUNT (BEAKER) 0.34 K/ L 0.24-0.36 (test code = 415) EOSINOPHILS ABSOLUTE COUNT 0.10 K/ L 0.04-0.36 (BEAKER) (test code = 416) BASOPHILS ABSOLUTE COUNT (BEAKER) 0.01 K/ L 0.01-0.08 (test code = 417) IMMATURE GRANULOCYTES-RELATIVE 1 % 0-1 PERCENT (BEAKER) (test code = 2801) POCT-GLUCOSE [id number] 22:27:00 Test Item Value Reference Range Interpretation Comments POC-GLUCOSE METER 329 mg/dL 70-110 H : TESTED A T BSC 6720 (BEAKER) (test code = [facility] [place] [facility], 1537) [id number]: Rn Surgical Pcu/Techni sanjeev ID = [id number] for JAMILA YOUNGER POCT-GLUCOSE [id number] 17:02:00 Test Item Value Reference Range Interpretation Comments POC-GLUCOSE METER 295 mg/dL 70-110 H : Notified RN/MD: ([facility]) (test code = TESTED AT [facility] 6720 1537) [facility], [address]: Rn Surgical Pcu/Techni sanjeev ID = [id number] for Ricco BUNDY HEMOGLOBIN AND [id number] 16:35:00 Test Item Value Reference Range Interpretation Comments HEMOGLOBIN (BEAKER) (test code = 7.9 GM/DL 11.2-15.7 L 410) HEMATOCRIT (BEAKER) (test code = 25.0 % 34.1-44.9 L 411) Rn Surgical Pcu ID - 6000POCT-GLUCOSE [id number] 11:51:00 Test Item Value Reference Range Interpretation Comments POC-GLUCOSE METER 300 mg/dL 70-110 H : TESTED A T [facility] 6720 (BEAKER) (test code [facility], = 1538) [address]: Rn Surgical Pcu/Techni sanjeev ID = [id number] for HEATHER DUNLAP POCT-GLUCOSE [id number] 08:17:00 Test Item Value Reference Range Interpretation Comments POC-GLUCOSE METER 229 mg/dL 70-110 H : TESTED A T [facility] 6720 (BEAKER) (test code [facility], = 1538) [address]: Rn Surgical Pcu/Techni sanjeev ID = [id number] for HEATHER DUNLAP [id number] 06:36:00 Test Item Value Reference Range Interpretation Comments PHOSPHORUS (BEAKER) (test code = 1.5 mg/dL 2.3-4.7 LL 604) Rn Surgical Pcu ID - MAGDIEL MOperator ID - DENA LCOMPREHENSIVE METABOLIC [id number] 04:26:00 Test Item Value Reference Range Interpretation Comments TOTAL PROTEIN 5.9 gm/dL 6.0-8.3 L (BEAKER) (test code = 770) ALBUMIN (BEAKER) 3.1 g/dL 3.5-5.0 L (test code = 1145) ALKALINE PHOSPHATASE 63 U/L 40-150 (BEAKER) (test code = 346) BILIRUBIN TOTAL 0.5 mg/dL 0.2-1.2 (BEAKER) (test code = 377) SODIUM (BEAKER) (test 142 meq/L 136-145 code = 381) POTASSIUM (BEAKER) 3.3 meq/L 3.5-5.1 L (test code = 379) CHLORIDE (BEAKER) 110 meq/L 98-107 H (test code = 382) CO2 (BEAKER) (test 22 meq/L 22-29 code = 355) BLOOD UREA NITROGEN 18 mg/dL 7-21 (BEAKER) (test code = 354) CREATININE (BEAKER) 1.28 mg/dL 0.57-1.25 H (test code = 358) GLUCOSE RANDOM 211 mg/dL 70-105 H (BEAKER) (test code = 652) CALCIUM (BEAKER) 8.0 mg/dL 8.4-10.2 L (test code = 697) AST (SGOT) (BEAKER) 29 U/L 5-34 (test code = 353) ALT (SGPT) (BEAKER) 26 U/L 6-55 (test code = 347) EGFR (BEAKER) (test 44 mL/min/1.73 ESTIMA GABY GFR IS code = 1092) sq m NOT ACCURATE CREATININE CLEARANCE IN PREDICTING GLOMERULAR FILTRATION RATE . ESTIMATED GFR I S NOT APPLICABLE FOR DIALYSIS PATIEN TS. Rn Surgical Pcu ID - MAGDIEL [id number] 04:26:00 Test Item Value Reference Range Interpretation Comments MAGNESIUM (BEAKER) (test code = 1.7 mg/dL 1.6-2.6 627) Rn Surgical Pcu ID - MAGDIEL MCALCIUM, [id number] 04:18:00 Test Item Value Reference Range Interpretation Comments CALCIUM IONIZED (BEAKER) (test 1.10 mmol/L 1.12-1.27 L code = 698) PH, BLOOD (BEAKER) (test code = 7.41 1810) CBC W/PLT COUNT & AUTO [id number] 03:57:00 Test Item Value Reference Range Interpretation Comments WHITE BLOOD CELL COUNT (BEAKER) 3.8 K/ L 3.5-10.5 (test code = 775) RED BLOOD CELL COUNT (BEAKER) 2.74 M/ L 3.93-5.22 L (test code = 761) HEMOGLOBIN (BEAKER) (test code = 7.4 GM/DL 11.2-15.7 L 410) HEMATOCRIT (BEAKER) (test code = 23.4 % 34.1-44.9 L 411) MEAN CORPUSCULAR VOLUME (BEAKER) 85.4 fL 79.4-94.8 (test code = 753) MEAN CORPUSCULAR HEMOGLOBIN 27.0 pg 25.6-32.2 (BEAKER) (test code = 751) MEAN CORPUSCULAR HEMOGLOBIN CONC 31.6 GM/DL 32.2-35.5 L (BEAKER) (test code = 752) RED CELL DISTRIBUTION WIDTH 18.6 % 11.7-14.4 H (BEAKER) (test code = 412) PLATELET COUNT (BEAKER) (test code 39 K/CU MM 150-450 L = 756) MEAN PLATELET VOLUME (BEAKER) 10.0 fL 9.4-12.3 (test code = 754) NUCLEATED RED BLOOD CELLS (BEAKER) 1 /100 WBC 0-0 H (test code = 413) NEUTROPHILS RELATIVE PERCENT 63 % (BEAKER) (test code = 429) LYMPHOCYTES RELATIVE PERCENT 24 % (BEAKER) (test code = 430) MONOCYTES RELATIVE PERCENT 11 % (BEAKER) (test code = 431) EOSINOPHILS RELATIVE PERCENT 1 % (BEAKER) (test code = 432) BASOPHILS RELATIVE PERCENT 0 % (BEAKER) (test code = 437) NEUTROPHILS ABSOLUTE COUNT 2.41 K/ L 1.56-6.13 (BEAKER) (test code = 670) LYMPHOCYTES ABSOLUTE COUNT 0.90 K/ L 1.18-3.74 L (BEAKER) (test code = 414) MONOCYTES ABSOLUTE COUNT (BEAKER) 0.41 K/ L 0.24-0.36 H (test code = 415) EOSINOPHILS ABSOLUTE COUNT 0.05 K/ L 0.04-0.36 (BEAKER) (test code = 416) BASOPHILS ABSOLUTE COUNT (BEAKER) 0.01 K/ L 0.01-0.08 (test code = 417) IMMATURE GRANULOCYTES-RELATIVE 1 % 0-1 PERCENT (BEAKER) (test code = 2801) POCT-GLUCOSE [id number] 21:58:00 Test Item Value Reference Range Interpretation Comments POC-GLUCOSE METER 139 mg/dL 70-110 H : TESTED A T [facility] 6720 (BEAKER) (test code = [place], 1538) [address]: Rn Surgical Pcu/Techni sanjeev ID = [id number] for ERIC FREGOSO Hepatitis B surface [id number] 18:57:00 Test Item Value Reference Range Interpretation Comments Hep B S Ab (test code <8.0 See_Comment [Auto mated = 11533-6) message] The system which generated this result transmit gaby reference range : <8.0 mIU/mL. Th e reference range was not used to interpret this result as normal/abnormal . JULIAN (test code = JULIAN) Rn Surgical Pcu ID - DB Lab Interpretation Normal (test code = 43953-7) [facility] [id number] 18:57:00 Test Item Value Reference Range Interpretation Comments HEPATITIS B SURFACE ANTIBODY < mIU/mL <8.0 (BEAKER) (test code = 647) Rn Surgical Pcu ID - DBHEMOGLOBIN AND [id number] 18:30:00 Test Item Value Reference Range Interpretation Comments HEMOGLOBIN (BEAKER) (test code = 7.6 GM/DL 11.2-15.7 L 410) HEMATOCRIT (BEAKER) (test code = 24.3 % 34.1-44.9 L 411) Rn Surgical Pcu ID - 6000Operator ID - 6000POCT-GLUCOSE [id number] 18:02:00 Test Item Value Reference Range Interpretation Comments POC-GLUCOSE METER 331 mg/dL 70-110 H : TESTED A T [facility] 6720 (BEAKER) (test code [facility], = 1538) [address]: Rn Surgical Pcu/Techni sanjeev ID = [id number] for HEATHER DUNLAP Hepatitis C PCR, [id number] 15:48:00 Test Item Value Reference Range Interpretation Comments HCV PCR, Quantitative HCV RNA not detected HCV RNA not (test code = 06454-2) detected JULIAN (test code = JULIAN) This test uses a Real-Time Polymerase Chain Reaction (RT-PCR) methodology and was performed using [employer] Ampliprep/KEZIA TaqMan HCV test kit version 2.0 ([employer] Reportable range for this assay is 15 - 100,000,000 IU per mL (1.18 - 8.00 Log IU/mL).This test uses a Real-Time Polymerase Chain Reaction (RT-PCR) methodology and was performed using [employer] Ampliprep/KEZIA TaqMan HCV test kit version 2.0 ([employer]). Reportable range for this assay is 15 - 100,000,000 IU per mL (1.18 - 8.00 Log IU/mL). Lab Interpretation Normal (test code = 67644-6) [facility], [id number] 15:48:00 Test Item Value Reference Range Interpretation Comments HCV RESULT COMPONENT HCV RNA not detected HCV RNA not detected (MITA) (test code = 2699) This test uses a Real-Time Polymerase Chain Reaction (RT-PCR) methodology and was performed using [employer] Ampliprep/KEZIA TaqMan HCV test kit version 2.0 ([employer]).Reportable range for this assay is 15 - 100,000,000 IU per mL (1.18 - 8.00 Log IU/mL).This test uses a Real-Time Poly merase Chain Reaction (RT-PCR) methodology and was performed using [employer] Ampliprep/KEZIA TaqMan HCV test kit version 2.0 ([employer]).Reportable range for this assay is 15 - 100,000,000 IU per mL (1.18 - 8.00 Log IU/mL).Hepatitis B PCR, [id number] 13:54:00 Test Item Value Reference Range Interpretation Comments HBV PCR, Quantitative HBV DNA not detected HBV DNA not (test code = 43960-7) detected JULIAN (test code = JULIAN) This test uses a Real-Time Polymerase Chain Reaction (RT-PCR) methodology and was performed using [employer] AmpliPrep/KEZIA TaqMan HBV Test, v2.0 ([employer] Reportable range for this assay is 20 - 170,000,000 IU per mL (1.30 - 8.23 Log IU/mL). Lab Interpretation Normal (test code = 84214-1) [facility], [id number] 13:54:00 Test Item Value Reference Range Interpretation Comments HBV RESULT COMPONENT HBV DNA not detected HBV DNA not detected (BEAKER) (test code = 2701) This test uses a Real-Time Polymerase Chain Reaction (RT-PCR) methodology and was performed using [employer] AmpliPrep/KEZIA TaqMan HBV Test, v2.0 ([employer]Reportable range for this assay is 20 - 170,000,000 IU per mL (1.30 - 8.23 Log IU/mL).POCT-GLUCOSE [id number] 12:15:00 Test Item Value Reference Range Interpretation Comments POC-GLUCOSE METER 195 mg/dL 70-110 H : TESTED A T [facility] 6720 (BEAKER) (test code [facility], = 1538) [address]: Rn Surgical Pcu/Techni sanjeev ID = [id number] for JAK Lopez PABLOOLINDA Anti-Nuclear Antibody (AARON)2020-12-11 10:19:00 Test Item Value Reference Range Interpretation Comments AARON (test code = 26566-8) Negative Negative JULIAN (test code = JULIAN) Test performed by IFA method.Test performed by IFA method. Lab Interpretation (test Normal code = 56141-3) [facility] (AARON)2020-12-11 10:19:00 Test Item Value Reference Range Interpretation Comments ANTI-NUCLEAR ANTIBODY (AARON) (BEAKER) Negative Negative (test code = 418) Test performed by IFA method.Test performed by IFA method.Urine culture 2020-12-11 08:28:00 Test Item Value Reference Range Interpretation Comments Result (test code = 6463-4) No growth [facility] [id number] 08:12:00 Test Item Value Reference Range Interpretation Comments POC-GLUCOSE METER 262 mg/dL 70-110 H : TESTED A T [facility] 6720 (BEAKER) (test code [facility], = 1538) [address]: Rn Surgical Pcu/Techni sanjeev ID = [id number] for HEATHER DUNLAP CALCIUM, [id number] 06:45:00 Test Item Value Reference Range Interpretation Comments CALCIUM IONIZED (BEAKER) (test 1.10 mmol/L 1.12-1.27 L code = 698) PH, BLOOD (BEAKER) (test code = 7.35 1810) COMPREHENSIVE METABOLIC [id number] 06:28:00 Test Item Value Reference Range Interpretation Comments TOTAL PROTEIN 6.4 gm/dL 6.0-8.3 (BEAKER) (test code = 770) ALBUMIN (BEAKER) 3.3 g/dL 3.5-5.0 L (test code = 1145) ALKALINE PHOSPHATASE 63 U/L 40-150 (BEAKER) (test code = 346) BILIRUBIN TOTAL 0.5 mg/dL 0.2-1.2 (BEAKER) (test code = 377) SODIUM (BEAKER) (test 146 meq/L 136-145 H code = 381) POTASSIUM (BEAKER) 3.5 meq/L 3.5-5.1 (test code = 379) CHLORIDE (BEAKER) 111 meq/L 98-107 H (test code = 382) CO2 (BEAKER) (test 22 meq/L 22-29 code = 355) BLOOD UREA NITROGEN 29 mg/dL 7-21 H (BEAKER) (test code = 354) CREATININE (BEAKER) 1.80 mg/dL 0.57-1.25 H (test code = 358) GLUCOSE RANDOM 295 mg/dL 70-105 H (BEAKER) (test code = 652) CALCIUM (BEAKER) 8.0 mg/dL 8.4-10.2 L (test code = 697) AST (SGOT) (BEAKER) 29 U/L 5-34 (test code = 353) ALT (SGPT) (BEAKER) 26 U/L 6-55 (test code = 347) EGFR (BEAKER) (test 30 mL/min/1.73 ESTIMA GABY GFR IS code = 1092) sq m NOT ACCURATE CREATININE CLEARANCE IN PREDICTING GLOMERULAR FILTRATION RATE . ESTIMATED GFR I S NOT APPLICABLE FOR DIALYSIS PATIEN TS. Rn Surgical Pcu ID - MARCUS [id number] 06:28:00 Test Item Value Reference Range Interpretation Comments MAGNESIUM (BEAKER) (test code = 1.5 mg/dL 1.6-2.6 L 627) Rn Surgical Pcu ID - MARCUS [id number] 06:28:00 Test Item Value Reference Range Interpretation Comments PHOSPHORUS (BEAKER) (test code = 2.6 mg/dL 2.3-4.7 604) Rn Surgical Pcu ID - MARCUS WCBC W/PLT COUNT & AUTO [id number] 05:30:00 Test Item Value Reference Range Interpretation Comments WHITE BLOOD CELL COUNT (BEAKER) 4.5 K/ L 3.5-10.5 (test code = 775) RED BLOOD CELL COUNT (BEAKER) 2.83 M/ L 3.93-5.22 L (test code = 761) HEMOGLOBIN (BEAKER) (test code = 7.6 GM/DL 11.2-15.7 L 410) HEMATOCRIT (BEAKER) (test code = 23.8 % 34.1-44.9 L 411) MEAN CORPUSCULAR VOLUME (BEAKER) 84.1 fL 79.4-94.8 (test code = 753) MEAN CORPUSCULAR HEMOGLOBIN 26.9 pg 25.6-32.2 (BEAKER) (test code = 751) MEAN CORPUSCULAR HEMOGLOBIN CONC 31.9 GM/DL 32.2-35.5 L (BEAKER) (test code = 752) RED CELL DISTRIBUTION WIDTH 18.3 % 11.7-14.4 H (BEAKER) (test code = 412) PLATELET COUNT (BEAKER) (test code 48 K/CU MM 150-450 L = 756) MEAN PLATELET VOLUME (BEAKER) 10.7 fL 9.4-12.3 (test code = 754) NUCLEATED RED BLOOD CELLS (BEAKER) 1 /100 WBC 0-0 H (test code = 413) NEUTROPHILS RELATIVE PERCENT 73 % (BEAKER) (test code = 429) LYMPHOCYTES RELATIVE PERCENT 17 % (BEAKER) (test code = 430) MONOCYTES RELATIVE PERCENT 9 % (BEAKER) (test code = 431) EOSINOPHILS RELATIVE PERCENT 0 % (BEAKER) (test code = 432) BASOPHILS RELATIVE PERCENT 0 % (BEAKER) (test code = 437) NEUTROPHILS ABSOLUTE COUNT 3.25 K/ L 1.56-6.13 (BEAKER) (test code = 670) LYMPHOCYTES ABSOLUTE COUNT 0.75 K/ L 1.18-3.74 L (BEAKER) (test code = 414) MONOCYTES ABSOLUTE COUNT (BEAKER) 0.42 K/ L 0.24-0.36 H (test code = 415) EOSINOPHILS ABSOLUTE COUNT 0.00 K/ L 0.04-0.36 L (BEAKER) (test code = 416) BASOPHILS ABSOLUTE COUNT (BEAKER) 0.00 K/ L 0.01-0.08 L (test code = 417) IMMATURE GRANULOCYTES-RELATIVE 1 % 0-1 PERCENT (BEAKER) (test code = 2801) HEMOGLOBIN AND [id number] 23:46:00 Test Item Value Reference Range Interpretation Comments HEMOGLOBIN (BEAKER) (test code = 7.9 GM/DL 11.2-15.7 L 410) HEMATOCRIT (BEAKER) (test code = 24.4 % 34.1-44.9 L 411) Rn Surgical Pcu ID - 6000POCT-GLUCOSE [id number] 21:51:00 Test Item Value Reference Range Interpretation Comments POC-GLUCOSE METER 330 mg/dL 70-110 H : TESTED A T [facility] 6720 (BEAKER) (test code = [facility], 153) [address]: Rn Surgical Pcu/Techni sanjeev ID = [id number] for ASHLYN ERIC POCT-GLUCOSE [id number] 16:37:00 Test Item Value Reference Range Interpretation Comments POC-GLUCOSE METER 215 mg/dL 70-110 H : TESTED A T [facility] 6720 (BEAKER) (test code = [facility], 153) [address]: Rn Surgical Pcu/Techni sanjeev ID = [id number] for Yolie Feliciano CBC W/PLT COUNT & AUTO [id number] 13:45:00 Test Item Value Reference Range Interpretation Comments WHITE BLOOD CELL COUNT (BEAKER) 4.3 K/ L 3.5-10.5 (test code = 775) RED BLOOD CELL COUNT (BEAKER) 2.90 M/ L 3.93-5.22 L (test code = 761) HEMOGLOBIN (BEAKER) (test code = 7.8 GM/DL 11.2-15.7 L 410) HEMATOCRIT (BEAKER) (test code = 24.1 % 34.1-44.9 L 411) MEAN CORPUSCULAR VOLUME (BEAKER) 83.1 fL 79.4-94.8 (test code = 753) MEAN CORPUSCULAR HEMOGLOBIN 26.9 pg 25.6-32.2 (BEAKER) (test code = 751) MEAN CORPUSCULAR HEMOGLOBIN CONC 32.4 GM/DL 32.2-35.5 (BEAKER) (test code = 752) RED CELL DISTRIBUTION WIDTH 18.3 % 11.7-14.4 H (BEAKER) (test code = 412) PLATELET COUNT (BEAKER) (test code 34 K/CU MM 150-450 L = 756) MEAN PLATELET VOLUME (BEAKER) 10.2 fL 9.4-12.3 (test code = 754) NUCLEATED RED BLOOD CELLS (BEAKER) 1 /100 WBC 0-0 H (test code = 413) NEUTROPHILS RELATIVE PERCENT 68 % (BEAKER) (test code = 429) LYMPHOCYTES RELATIVE PERCENT 19 % (BEAKER) (test code = 430) MONOCYTES RELATIVE PERCENT 12 % (BEAKER) (test code = 431) EOSINOPHILS RELATIVE PERCENT 1 % (BEAKER) (test code = 432) BASOPHILS RELATIVE PERCENT 0 % (BEAKER) (test code = 437) NEUTROPHILS ABSOLUTE COUNT 2.94 K/ L 1.56-6.13 (BEAKER) (test code = 670) LYMPHOCYTES ABSOLUTE COUNT 0.80 K/ L 1.18-3.74 L (BEAKER) (test code = 414) MONOCYTES ABSOLUTE COUNT (BEAKER) 0.50 K/ L 0.24-0.36 H (test code = 415) EOSINOPHILS ABSOLUTE COUNT 0.02 K/ L 0.04-0.36 L (BEAKER) (test code = 416) BASOPHILS ABSOLUTE COUNT (BEAKER) 0.01 K/ L 0.01-0.08 (test code = 417) IMMATURE GRANULOCYTES-RELATIVE 1 % 0-1 PERCENT (BEAKER) (test code = 2801) POCT-GLUCOSE [id number] 12:00:00 Test Item Value Reference Range Interpretation Comments POC-GLUCOSE METER 293 mg/dL 70-110 H : TESTED A T [facility] 6720 (BEAKER) (test code = [place], 1538) [address]: Rn Surgical Pcu/Techni sanjeev ID = [id number] for CLAUDOI FU Hemoglobin [id number] 07:57:00 Test Item Value Reference Range Interpretation Comments Hemoglobin A1C (test code = 4548-4) 7.7 % 4.3-6.1 H Lab Interpretation (test code = Abnormal 95087-2) [facility] [id number] 07:57:00 Test Item Value Reference Range Interpretation Comments HEMOGLOBIN A1C (BEAKER) (test code = 7.7 % 4.3-6.1 H 368) POCT-GLUCOSE [id number] 07:28:00 Test Item Value Reference Range Interpretation Comments POC-GLUCOSE METER 253 mg/dL 70-110 H : TESTED A T [facility] 6720 (BEAKER) (test code = [facility], 1538) [address]: Rn Surgical Pcu/Techni sanjeev ID = [id number] for CLAUDIO FU COMPREHENSIVE METABOLIC [id number] 06:23:00 Test Item Value Reference Range Interpretation Comments TOTAL PROTEIN 6.0 gm/dL 6.0-8.3 Specimen sligh tly (BEAKER) (test code = hemoly zed 770) ALBUMIN (BEAKER) 3.1 g/dL 3.5-5.0 L Specimen sl ightly (test code = 1145) hemolyzed ALKALINE PHOSPHATASE 60 U/L 40-150 (BEAKER) (test code = 346) BILIRUBIN TOTAL 0.6 mg/dL 0.2-1.2 Specimen sli ghtly (BEAKER) (test code = hemoly zed 377) SODIUM (BEAKER) (test 146 meq/L 136-145 H code = 381) POTASSIUM (BEAKER) 3.2 meq/L 3.5-5.1 L Specimen slightly (test code = 379) hemolyzed CHLORIDE (BEAKER) 111 meq/L 98-107 H (test code = 382) CO2 (BEAKER) (test 21 meq/L 22-29 L code = 355) BLOOD UREA NITROGEN 54 mg/dL 7-21 H (BEAKER) (test code = 354) CREATININE (BEAKER) 2.82 mg/dL 0.57-1.25 H Specimen slightly (test code = 358) hemolyzed GLUCOSE RANDOM 266 mg/dL 70-105 H (BEAKER) (test code = 652) CALCIUM (BEAKER) 7.2 mg/dL 8.4-10.2 L (test code = 697) AST (SGOT) (BEAKER) 33 U/L 5-34 Specimen slightly (test code = 353) hemolyzed ALT (SGPT) (BEAKER) 24 U/L 6-55 Specimen slightly (test code = 347) hemolyzed EGFR (BEAKER) (test 18 mL/min/1.73 ESTIMA GABY GFR IS code = 1092) sq m NOT ACCURATE CREATININE CLEARANCE IN PREDICTING GLOMERULAR FILTRATION RATE . ESTIMATED GFR I S NOT APPLICABLE FOR DIALYSIS PATIEN TS. Rn Surgical Pcu ID - MARCUS [id number] 06:12:00 Test Item Value Reference Range Interpretation Comments MAGNESIUM (BEAKER) 1.7 mg/dL 1.6-2.6 Specimen slightly (test code = 627) hemolyzed Rn Surgical Pcu ID - MARCUS [id number] 06:12:00 Test Item Value Reference Range Interpretation Comments PHOSPHORUS (BEAKER) 2.8 mg/dL 2.3-4.7 Specimen slightly (test code = 604) hemolyzed Rn Surgical Pcu ID - MARCUS WCBC W/PLT COUNT & AUTO [id number] 06:09:00 Test Item Value Reference Range Interpretation Comments WHITE BLOOD CELL COUNT 4.0 K/ L 3.5-10.5 (BEAKER) (test code = 775) RED BLOOD CELL COUNT 2.52 M/ L 3.93-5.22 L (BEAKER) (test code = 761) HEMOGLOBIN (BEAKER) 6.7 GM/DL 11.2-15.7 L Discorda nt result (test code = 410) compared t o previous result. Clinica l correlation req uired HEMATOCRIT (BEAKER) 20.9 % 34.1-44.9 L (test code = 411) MEAN CORPUSCULAR 82.9 fL 79.4-94.8 VOLUME (BEAKER) (test code = 753) MEAN CORPUSCULAR 26.6 pg 25.6-32.2 HEMOGLOBIN (BEAKER) (test code = 751) MEAN CORPUSCULAR 32.1 GM/DL 32.2-35.5 L HEMOGLOBIN CONC (BEAKER) (test code = 752) RED CELL DISTRIBUTION 19.0 % 11.7-14.4 H WIDTH (BEAKER) (test code = 412) PLATELET COUNT 38 K/CU MM 150-450 L (BEAKER) (test code = 756) MEAN PLATELET VOLUME 10.3 fL 9.4-12.3 (BEAKER) (test code = 754) NUCLEATED RED BLOOD 1 /100 WBC 0-0 H CELLS (BEAKER) (test code = 413) NEUTROPHILS RELATIVE 63 % PERCENT (BEAKER) (test code = 429) LYMPHOCYTES RELATIVE 24 % PERCENT (BEAKER) (test code = 430) MONOCYTES RELATIVE 12 % PERCENT (BEAKER) (test code = 431) EOSINOPHILS RELATIVE 1 % PERCENT (BEAKER) (test code = 432) BASOPHILS RELATIVE 0 % PERCENT (BEAKER) (test code = 437) NEUTROPHILS ABSOLUTE 2.52 K/ L 1.56-6.13 COUNT (BEAKER) (test code = 670) LYMPHOCYTES ABSOLUTE 0.94 K/ L 1.18-3.74 L COUNT (BEAKER) (test code = 414) MONOCYTES ABSOLUTE 0.47 K/ L 0.24-0.36 H COUNT (BEAKER) (test code = 415) EOSINOPHILS ABSOLUTE 0.04 K/ L 0.04-0.36 COUNT (BEAKER) (test code = 416) BASOPHILS ABSOLUTE 0.01 K/ L 0.01-0.08 COUNT (BEAKER) (test code = 417) IMMATURE 1 % 0-1 GRANULOCYTES-RELATIVE PERCENT (BEAKER) (test code = 2801) Patient actively bleeding as per NODPROTHROMBIN TIME/[id number] 06:00:00 Test Item Value Reference Range Interpretation Comments PROTIME (BEAKER) 16.5 seconds 11.9-14.2 H (test code = 759) INR (BEAKER) (test 1.35 See_Comment [Automat ed message] code = 370) The system [employer] generated this result transmitted ref erence range: <=5.90. The reference range was not used to int erpret this result as normal/abnormal . RECOMMENDED COUMADIN/WARFARIN INR THERAPY RANGESSTANDARD DOSE: 2.0 - 3.0 Includes: PROPHYLAXIS forvenous thrombosis, systemic embolization; TREATMENT for venous thrombosis and/or pulmonary embolus.HIGH RISK: Target INR is 2.5-3.5 for patients with mechanical heart valves.U/S, ABDOMINAL, WITH [id number] 05:50:00cirrhosis history with acute bleed. please check liver dopplers Reason for exam:->cirrhosis history with acute bleed. please check liver dopplers [facility]ENTER[facility]YLEEN GLEASON : 1965 Sex: FFINAL REPORT TECHNIQUE: Grayscale ultrasound of the abdomen with color Doppler and spectral Doppler ultrasound of the portal/hepatic vasculature. INDICATION: cirrhosis history with acute bleed. Please check liver dopplers. COMPARISON: None. FINDINGS: LIVER: Nodular liver contour. No focal liver lesions. HEPATIC VASCULATURE: Portal veins are patent with normal waveformand directionality. Flow velocity in the main portal vein is within normal limits. The hepatic arteries are patent with normal flow velocities, resistive indices, and waveforms. The hepatic veins and confluence are patent. The main portal vein measures 1.8 cm. BILIARY:Gallbladder: No gallstones or sludge. Trace pericholecystic fluid. No gallbladder wall thickening, or distention. Negative sonographicMurphy sign.Common bile duct measures 1.1 cm, slightly distended. No intrahepatic biliary ductal dilatation. PANCREAS: Incompletely visualized due to overlying bowel gas. SPLEEN: Mild splenomegaly. Thespleen measures 13.1 cm PERITONEUM: No free fluid. KIDNEYS: Normal in size bilaterally. No hydronephr osis. No sonographically evident solid mass lesion. MIDLINE VASCULATURE: The visualized inferior vena cava is unremarkable. The maximum visualized aortic diameter is 1.5 cm. Splenic artery and vein are patent. IMPRESSION: 1. Cirrhotic liver. 2. Trace pericholecystic fluid favored to be related to liver disease. Common bile duct is mildly distended. If concern for choledocholithiasis or other distal biliary obstruction, consider further evaluation with MRCP. 3. Normal patency and flow directionality of the hepatic and portal vasculature. Signed: Steven Green MDReport Verified Date/Time: 12/10/2020 05:50:47 US abdominal with [id number] 05:50:00Interface, External Ris In - 12/10/2020 5:53 AM CDTFINAL REPORT TECHNIQUE: Grayscale ultrasound of the abdomen with color Doppler and spectral Doppler ultrasound of the portal/hepatic vasculature. INDICATION: cirrhosis history with acute bleed. Please check liver dopplers. COMPARISON: None. FINDINGS: LIVER: Nodular liver contour. No focal liver lesions. HEPATIC VASCULATURE: Portal veins are patent with normal waveform and directionality. Flow velocity in the main portal vein is within normal limits. The hepatic arteries are patent with normal flow velocities, resistive indices, and waveforms. The hepatic veins and confluence are patent. The main portal vein measures 1.8 cm. BILIARY:Gallbladder: No gallstones or sludge. Trace pericholecystic fluid. No gallbladder wall thickening, or distention. Negative sonographic Tariq sign.Common bile duct measures 1.1 cm, slightly distended. No intrahepatic biliary ductal dilatation. PANCREAS: Incompletely visualized due to overlying bowel gas. SPLEEN: Mild splenomegaly. The spleen measures 13.1 cm PERITONEUM: No free fluid. KIDNEYS: Normal in size bilaterally. No hydronephrosis. No sonographically evident solid mass lesion. MIDLINE VASCULATURE: The visualized inferior vena cava is unremarkable. The maximum visualized aortic diameter is 1.5 cm. Splenic artery and vein are patent. IMPRESSION: 1. Cirrhotic liver. 2. Trace pericholecystic fluid favored to be related to liver disease. Common bile duct is mildly distended. If concern for choledocholithiasis or other distal biliary obstruction, consider further evaluation with MRCP. 3. Normal patency and flow directionality of the hepatic and portal vasculature. Signed: Steven Greenort Verified Date/Time: 12/10/2020 05:50:47 [facility], [id number] 05:36:00 Test Item Value Reference Range Interpretation Comments CALCIUM IONIZED (BEAKER) (test 0.96 mmol/L 1.12-1.27 L code = 698) PH, BLOOD (BEAKER) (test code = 7.39 1810) POCT-GLUCOSE [id number] 23:40:00 Test Item Value Reference Range Interpretation Comments POC-GLUCOSE METER 296 mg/dL 70-110 H : TESTED A T [facility] 6720 (BEAKER) (test code = [place], 1538) [address]: Rn Surgical Pcu/Techni sanjeev ID = [id number] for MICK BROWN, [id number] 20:39:00 Test Item Value Reference Range Interpretation Comments ABO Grouping (test code = 2588) A Rh Factor (test code = 2589) [facility] [id number] 19:15:00 Test Item Value Reference Range Interpretation Comments HEMOGLOBIN (BEAKER) (test code = 10.0 GM/DL 11.2-15.7 L 410) HEMATOCRIT (BEAKER) (test code = 31.1 % 34.1-44.9 L 411) Rn Surgical Pcu ID - 6000HIV-1 Antigen with HIV-1/2 [id number] 19:10:00 Test Item Value Reference Range Interpretation Comments HIV-1 Antigen with HIV 1&2 Nonreactive Nonreactive Antibody (test code = 83913-2) JULIAN (test code = JULIAN) Rn Surgical Pcu ID - EO Lab Interpretation (test Normal code = 53306-8) [facility], [id number] 19:10:00 Test Item Value Reference Range Interpretation Comments Hep A IgG (test code = Nonreactive Nonreactive 97316-3) JULIAN (test code = JULIAN) Rn Surgical Pcu ID - EO Lab Interpretation (test Normal code = 66629-8) [facility] ANTIGEN WITH HIV-1/2 [id number] 19:10:00 Test Item Value Reference Range Interpretation Comments HIV-1 ANTIGEN WITH HIV 1\T\2 Nonreactive Nonreactive ANTIBODY (2) (BEAKER) (test code = 2586) Rn Surgical Pcu ID - EOHEPATITIS A ANTIBODY, [id number] 19:10:00 Test Item Value Reference Range Interpretation Comments HEPATITIS A IGG ANTIBODY (BEAKER) Nonreactive Nonreactive (test code = 2797) Rn Surgical Pcu ID - EOHepatitis panel, [id number] 18:50:00 Test Item Value Reference Range Interpretation Comments Hep A IgM (test code = Nonreactive Nonreactive 60889-8) Hep B C IgM (test code = Nonreactive Nonreactive 20681-3) Hepatitis C Ab (test code = Reactive Nonreactive A 64172-7) HBsAg Screen (test code = Nonreactive Nonreactive 5195-3) JULIAN (test code = JULIAN) Rn Surgical Pcu ID - EO Lab Interpretation (test Abnormal code = 88206-7) [facility], [id number] 18:50:00 Test Item Value Reference Range Interpretation Comments HEPATITIS A IGM ANTIBODY (BEAKER) Nonreactive Nonreactive (test code = 498) HEPATITIS B CORE IGM ANTIBODY Nonreactive Nonreactive (BEAKER) (test code = 645) HEPATITIS C ANTIBODY (BEAKER) Reactive Nonreactive A (test code = 367) HEPATITIS B SURFACE ANTIGEN (2) Nonreactive Nonreactive (BEAKER) (test code = 2585) Rn Surgical Pcu ID - EOHepatitis B core antibody, [id number] 18:49:00 Test Item Value Reference Range Interpretation Comments Hep B Core Total Ab (test Reactive Nonreactive A code = 38139-5) JULIAN (test code = JULIAN) Rn Surgical Pcu ID - EO Lab Interpretation (test Abnormal code = 89803-8) [facility] CORE [facility]TIBODY, [id number] 18:49:00 Test Item Value Reference Range Interpretation Comments HEPATITIS B CORE TOTAL ANTIBODY Reactive Nonreactive A (BEAKER) (test code = 497) Rn Surgical Pcu ID - EOCarcinoembryonic Antigen (CEA)2020-12-09 18:42:00 Test Item Value Reference Range Interpretation Comments CEA, SERUM (test code = 11.8 ng/mL 0-5 H 2038-6) JULIAN (test code = JULIAN) Rn Surgical Pcu ID - EO Lab Interpretation (test Abnormal code = 53019-4) [facility] fet[facility] (AFP), tumor [id number] 18:42:00 Test Item Value Reference Range Interpretation Comments Alpha-Fetoprotein (test code 3.4 ng/mL <10.0 = 1834-1) JULIAN (test code = JULIAN) Rn Surgical Pcu ID - EO Lab Interpretation (test Normal code = 86640-9) [facility]CARCINOEMBRYONIC ANTIGEN (CEA)2020-12-09 18:42:00 Test Item Value Reference Range Interpretation Comments CARCINOEMBRYONIC ANTIGEN (BEAKER) 11.8 ng/mL 0.0-5.0 H (test code = 685) Rn Surgical Pcu ID - EOALPHA FETOPROTEIN (AFP), TUMOR [id number] 18:42:00 Test Item Value Reference Range Interpretation Comments ALPHA-FETOPROTEIN (BEAKER) (test 3.4 ng/mL <10.0 code = 1094) Rn Surgical Pcu ID - EOVitamin D, [id number] 18:39:00 Test Item Value Reference Range Interpretation Comments Vitamin D 25-Hydroxy 9.7 ng/mL 6.6-49.9 (test code = 2764) JULIAN (test code = JULIAN) Effective 03/12/2017: Reference Range ChangeNew: 6.6-49.9 ng/mL Previous: 13.0-47.8 ng/mL Recommended Vitamin D Target Range: 30.0-40.0 ng/mLOperator ID - EO Lab Interpretation (test Normal code = 27924-1) [facility]IT[facility] D, [id number] 18:39:00 Test Item Value Reference Range Interpretation Comments VITAMIN D 25-OH (BEAKER) (test code 9.7 ng/mL 6.6-49.9 = 2764) Effective 03/12/2017: Reference Range ChangeNew: 6.6-49.9 ng/mL Previous: 13.0-47.8 ng/mLRecommended Vitamin D Target Range: 30.0-40.0 ng/mLOperator ID - [id number] 18:22:00 Test Item Value Reference Range Interpretation Comments A-1 Antitrypsin (test code = 127.60 mg/dL 90-200 1825-9) JULIAN (test code = JULIAN) Rn Surgical Pcu ID - EO Lab Interpretation (test Normal code = 12781-7) [facility]ALPHA-1-[id number] 18:22:00 Test Item Value Reference Range Interpretation Comments ALPHA-1 ANTITRYPSIN (BEAKER) 127.60 mg/dL 90.00-200.00 (test code = 502) Rn Surgical Pcu ID - [id number] 17:32:00 Test Item Value Reference Range Interpretation Comments AMMONIA (BEAKER) (test code = 348) 97 mol/L 18-72 H Rn Surgical Pcu ID - DBUrinalysis w/Microscopic + Reflex to [id number] 17:27:00 Test Item Value Reference Range Interpretation Comments Color, UA (test code Light Yellow = 5778-6) Clarity, UA (test Clear code = 5767-9) Specific [place], UA 1.017 1.001-1.035 (test code = 5811-5) pH, UA (test code = 6.0 5.0-8.0 5803-2) Protein, UA (test 20 mg/dL Negative A code = 94763-0) Glucose, UA (test Negative Negative code = 365) Ketones, UA (test 10 mg/dL Negative A code = 2514-8) Bilirubin, UA (test Negative Negative code = 83474-2) Blood, UA (test code Moderate Negative A = 20005-3) Nitrite, UA (test Negative Negative code = 5802-4) Leukocytes, UA (test Moderate Negative A code = 5799-2) Urobilinogen, UA 0.2 mg/dL 0.2-1 (test code = 79526-0) RBC, UA (test code = 137 See_Comment [Autom ated 11357-4) message] The system which generated this result transmitted reference range : /HPF. The reference range was not used to interpret this result as normal/abnormal . WBC, UA (test code = 20 See_Comment [Autom ated 5821-4) message] The system which generated this result transmitted reference range : /HPF. The reference range was not used to interpret this result as normal/abnormal . Bacteria, UA (test Few code = 03032-2) Mucus (test code = Rare 8247-9) Squam Epithel, UA <1 See_Comment [Automate d (test code = 54919-4) messag e] The system which generated this result transmitted reference range : /HPF. The reference range was not used to interpret this result as normal/abnormal . Hyaline Casts, UA 4 See_Comment [Automate d (test code = 30222-8) messag e] The system which generated this result transmitted reference range : /LPF. The reference range was not used to interpret this result as normal/abnormal . Crystals, Urine (test Occasional code = 18578-0) Specimen Source (test code = 2795) JULIAN (test code = JULIAN) Rn Surgical Pcu ID - [auto]Rn Surgical Pcu ID - tech Lab Interpretation Abnormal (test code = 77548-3) [facility]/ [facility]FLEX URINE [id number] 17:27:00 Test Item Value Reference Range Interpretation Comments COLOR (BEAKER) (test code = 470) Light Yellow CLARITY (BEAKER) (test code = Clear 469) SPECIFIC GRAVITY UA (BEAKER) 1.017 1.001-1.035 (test code = 468) PH UA (BEAKER) (test code = 467) 6.0 5.0-8.0 PROTEIN UA (BEAKER) (test code = 20 mg/dL Negative A 464) GLUCOSE UA (BEAKER) (test code = Negative Negative 365) KETONES UA (BEAKER) (test code = 10 mg/dL Negative A 371) BILIRUBIN UA (BEAKER) (test code Negative Negative = 462) BLOOD UA (BEAKER) (test code = Moderate Negative A 461) NITRITE UA (BEAKER) (test code = Negative Negative 465) LEUKOCYTE ESTERASE UA (BEAKER) Moderate Negative A (test code = 466) UROBILINOGEN UA (BEAKER) (test 0.2 mg/dL 0.2-1.0 code = 463) RBC UA (BEAKER) (test code = 137 /HPF 519) WBC UA (BEAKER) (test code = 20 /HPF 520) BACTERIA (BEAKER) (test code = Few 517) MUCUS (BEAKER) (test code = Rare 1574) SQUAMOUS EPITHELIAL (BEAKER) < /HPF (test code = 516) HYALINE CASTS (BEAKER) (test 4 /LPF code = 514) CRYSTALS, URINE (BEAKER) (test Occasional code = 1521) SOURCE(BEAKER) (test code = 2795) Rn Surgical Pcu ID - [auto]Rn Surgical Pcu ID - [id number] 16:11:00 Test Item Value Reference Range Interpretation Comments Ferritin (test code = 30.15 ng/mL 5-275 2276-4) JULIAN (test code = JULIAN) Rn Surgical Pcu ID - DB Lab Interpretation (test Normal code = 53244-6) [id number] 16:11:00 Test Item Value Reference Range Interpretation Comments FERRITIN (BEAKER) (test code = 30.15 ng/mL 5.00-275.00 361) Rn Surgical Pcu ID - DBAcetaminophen [id number] 15:52:00 Test Item Value Reference Range Interpretation Comments Acetaminophen Level <5.7 10-30 L (test code = 3298-7) JULIAN (test code = JULIAN) Therapeutic Range: 10.0-30.0 g/mLToxic Levels: >200.0 g/mL Rn Surgical Pcu ID - DB Lab Interpretation (test Abnormal code = 33441-3) [facility]ACETAMINOPHEN [id number] 15:52:00 Test Item Value Reference Range Interpretation Comments ACETAMINOPHEN LEVEL (BEAKER) (test < ug/mL 10.0-30.0 L code = 344) Therapeutic Range: 10.0-30.0 g/mLToxic Levels: >200.0 g/mLOperator ID - DBCOMPREHENSIVE METABOLIC [id number] 15:52:00 Test Item Value Reference Range Interpretation Comments TOTAL PROTEIN 6.0 gm/dL 6.0-8.3 (BEAKER) (test code = 770) ALBUMIN (BEAKER) 3.2 g/dL 3.5-5.0 L (test code = 1145) ALKALINE PHOSPHATASE 64 U/L 40-150 (BEAKER) (test code = 346) BILIRUBIN TOTAL 0.3 mg/dL 0.2-1.2 (BEAKER) (test code = 377) SODIUM (BEAKER) (test 143 meq/L 136-145 code = 381) POTASSIUM (BEAKER) 3.5 meq/L 3.5-5.1 (test code = 379) CHLORIDE (BEAKER) 108 meq/L 98-107 H (test code = 382) CO2 (BEAKER) (test 17 meq/L 22-29 L code = 355) BLOOD UREA NITROGEN 69 mg/dL 7-21 H (BEAKER) (test code = 354) CREATININE (BEAKER) 4.61 mg/dL 0.57-1.25 H (test code = 358) GLUCOSE RANDOM 256 mg/dL 70-105 H (BEAKER) (test code = 652) CALCIUM (BEAKER) 7.1 mg/dL 8.4-10.2 L (test code = 697) AST (SGOT) (BEAKER) 29 U/L 5-34 (test code = 353) ALT (SGPT) (BEAKER) 25 U/L 6-55 (test code = 347) EGFR (BEAKER) (test 10 mL/min/1.73 ESTIMA GABY GFR IS code = 1092) sq m NOT ACCURATE CREATININE CLEARANCE IN PREDICTING GLOMERULAR FILTRATION RATE . ESTIMATED GFR I S NOT APPLICABLE FOR DIALYSIS PATIEN TS. Rn Surgical Pcu ID - DBIron, TIBC, % sat. (without ferritin)2020-12-09 15:51:00 Test Item Value Reference Range Interpretation Comments Iron (test code = 2498-4) 160.0 ug/dL 40-160 TIBC (test code = 2500-7) 355 ug/dL 250-450 Iron % Saturation (test code 45 % 20-55 = 2502-3) JULIAN (test code = JULIAN) Rn Surgical Pcu ID - DB Lab Interpretation (test Normal code = 43713-4) [facility]IR[facility], TIBC, % SAT. (WITHOUT FERRITIN)2020-12-09 15:51:00 Test Item Value Reference Range Interpretation Comments IRON (BEAKER) (test code = 547) 160.0 ug/dL 40.0-160.0 TOTAL IRON BINDING CAPACITY 355 ug/dL 250-450 (BEAKER) (test code = 769) IRON % SATURATION (2) (BEAKER) 45 % 20-55 (test code = 2590) Rn Surgical Pcu ID - DBCBC W/PLT COUNT & AUTO [id number] 15:32:00 Test Item Value Reference Range Interpretation Comments WHITE BLOOD CELL COUNT (BEAKER) 7.3 K/ L 3.5-10.5 (test code = 775) RED BLOOD CELL COUNT (BEAKER) 3.09 M/ L 3.93-5.22 L (test code = 761) HEMOGLOBIN (BEAKER) (test code = 8.1 GM/DL 11.2-15.7 L 410) HEMATOCRIT (BEAKER) (test code = 25.0 % 34.1-44.9 L 411) MEAN CORPUSCULAR VOLUME (BEAKER) 80.9 fL 79.4-94.8 (test code = 753) MEAN CORPUSCULAR HEMOGLOBIN 26.2 pg 25.6-32.2 (BEAKER) (test code = 751) MEAN CORPUSCULAR HEMOGLOBIN CONC 32.4 GM/DL 32.2-35.5 (BEAKER) (test code = 752) RED CELL DISTRIBUTION WIDTH 19.4 % 11.7-14.4 H (BEAKER) (test code = 412) PLATELET COUNT (BEAKER) (test code 28 K/CU MM 150-450 L = 756) MEAN PLATELET VOLUME (BEAKER) 11.0 fL 9.4-12.3 (test code = 754) NUCLEATED RED BLOOD CELLS (BEAKER) 0 /100 WBC 0-0 (test code = 413) NEUTROPHILS RELATIVE PERCENT 76 % (BEAKER) (test code = 429) LYMPHOCYTES RELATIVE PERCENT 13 % (BEAKER) (test code = 430) MONOCYTES RELATIVE PERCENT 10 % (BEAKER) (test code = 431) EOSINOPHILS RELATIVE PERCENT 0 % (BEAKER) (test code = 432) BASOPHILS RELATIVE PERCENT 0 % (BEAKER) (test code = 437) NEUTROPHILS ABSOLUTE COUNT 5.55 K/ L 1.56-6.13 (BEAKER) (test code = 670) LYMPHOCYTES ABSOLUTE COUNT 0.95 K/ L 1.18-3.74 L (BEAKER) (test code = 414) MONOCYTES ABSOLUTE COUNT (BEAKER) 0.76 K/ L 0.24-0.36 H (test code = 415) EOSINOPHILS ABSOLUTE COUNT 0.02 K/ L 0.04-0.36 L (BEAKER) (test code = 416) BASOPHILS ABSOLUTE COUNT (BEAKER) 0.01 K/ L 0.01-0.08 (test code = 417) IMMATURE GRANULOCYTES-RELATIVE 0 % 0-1 PERCENT (BEAKER) (test code = 9431)
[2021-01-12 15:12] LABS: Absolute Lymphocytes (CBC) 1.3 K/uL (0.7-4.9); Basophils % 0.5 % (0-1.3); Lymphocytes % 23.7 % (15.3-44.8); RBC Red Blood Cell Count 3.31 M/uL (3.86-4.86)
[2021-01-12 15:56] LABS: Albumin 3.5 g/dL (3.4-5.0); Bilirubin Direct 0.2 mg/dL (0-0.2); Bilirubin Total 0.4 mg/dL (0.2-1.0); Potassium 4.6 mmol/L (3.5-5.1); Protein, Total 7.5 g/dL (6.4-8.2)
[2021-01-12] MEDS ORDERED: NA CHLORIDE 0.9% 1,000 ML ONE (16:30)
[2021-01-12] MEDS ORDERED: ONDANSETRON 4 MG/2 ML VIAL ONE (16:30)
[2021-01-12] MEDS ORDERED: FENTANYL CITR 100 MCG/2 ML ONE (16:30)
--- NOTE | 2021-01-12 17:26 | RAD REPORT ---
EXAM DESCRIPTION: CTAbdomen Pelvis W Contrast - 01/12/2021 5:09 pm CLINICAL HISTORY: Abdominal pain. ABD PAIN COMPARISON: CTSTONE PROTOCOL dated 09/25/2013 TECHNIQUE: Biphasic CT imaging of the abdomen and pelvis was performed with 100 ml non-ionic IV cont rast. All CT scans are performed using dose optimization technique as appropriate and may include automated exposure control or mA/KV adjustment according to patient size. FINDINGS: The lung bases are clear. Cirrhotic liver morphology. There is a possible mass in the left hepatic lobe measuring 5.1 centimete rs. There is heterogeneous enhancement with areas of capsular retraction. Portal vein is patent. Chol elithiasis. Gallbladder wall thickening is nonspecific may be related underlying liver disease. Splen omegaly. Lower paraesophageal varices. The pancreas is unremarkable. No stones or hydronephrosis. No bowel obstruction is identified. The ascending colon through the proximal descending colon are thicke anatoliy and hyperenhancing. There is also some small bowel wall thickening centrally as well. Reactive si zed retroperitoneal lymph nodes. Atherosclerosis per Age indeterminate L1 and L3 compression fracture s. The L1 compression fracture has up to 90% loss of height centrally as well as a component of bony retropulsion. This results in at least mild central spinal stenosis. There is a mild inferior endplat e deformity at L3. IMPRESSION: 1. Colonic and small bowel wall thickening concerning for colitis and/or portal colopath y. 2. Cholelithiasis with gallbladder wall thickening that is probably related to underlying liver disea se. 3. Hypoattenuating area in the left hepatic lobe which may reflect focal fatty infiltration. A mass i s difficult to exclude. A nonemergent hepatic protocol MRI could better evaluate. 4. Age indeterminate L1 and L3 compression fractures.
[2021-01-12 17:27] LABS: Blood Morphology Comment NOT SEEN (NOT SEEN); Platelet Estimate DECR; White Blood Cell Scan OK (OK)
--- NOTE | 2021-01-12 18:45 | RAD REPORT ---
EXAM DESCRIPTION: US - Abdomen Exam Limited - 01/12/2021 6:31 pm CLINICAL HISTORY: ABD PAIN COMPARISON: Abdomen Pelvis W Contrast dated 01/12/2021 FINDINGS: Cholelithiasis noted. The gallbladder is contracted. The common bile duct is nondilated me asuring 2 millimeters. There is some trace pericholecystic fluid. Cirrhotic liver morphology. The liver demonstrates no findings of intrahepatic biliary dilatation. IMPRESSION: Cholelithiasis without sonographic evidence of acute cholecystitis. No biliary ductal di latation.
[2021-01-12] MEDS ORDERED: MORPHINE 4 MG/ML SYR ONE (18:55)
[2021-01-12 19:04] LABS: Hematocrit 24.8 % (36.0-45.0)
[2021-01-12] MEDS ORDERED: NA CHLORIDE 0.9% 250 ML ONE (20:09)
[2021-01-12] MEDS ORDERED: NA CHLORIDE 0.9% 500 ML ONE (20:09)
[2021-01-12 20:43] LABS: Protime INR 1.05
--- NOTE | 2021-01-12 20:46 | EDPHYS ---
[facility] Cheyenne [facility] Age: 55 yrs Sex: Female : 1965 Arrival Date: 01/12/2021 Time: 11:29 Bed 12 Private MD: ED Physician Juan A Lamb HPI: 01/12 18:07 This 55 yrs old Female presents to ER via EMS with complaints of GI Bleeding. kb 18:07 The patient presents to the emergency department vomiting blood, 2 times since symptom kb onset, with rectal bleeding. Onset: The symptoms/episode began/occurred yesterday. Abdominal pain: described as achy, located in the right upper quadrant and left upper quadrant, that does not radiate. Modifying factors: The symptoms are alleviated by nothing, the symptoms are aggravated by nothing. Associated signs and symptoms: The patient has no apparent associated signs or symptoms. Severity of symptoms: At their worst the symptoms were moderate in the emergency department the symptoms have improved. The patient has not experienced similar symptoms in the past. The patient has not recently seen a physician. 18:08 Patient states she vomited blood twice yesterday. Today she had some blood in her stool kb so she came in to be evaluated. Last symptoms happened was in November she was transferred to [facility] and had bands placed in the esophagus.. VENEER GLUER: 17:36 LMP N/A - Post-menopause ap3 Historical: - Allergies: 11:29 No Known Allergies; iw - Home Meds: 11:29 Humulin 70/30 100 unit/mL (70-30) Sub-Q susp 80 unit twice a day [Active]; metformin iw 1,000 mg Oral tr24 2 tabs once daily [Active]; - PMHx: 11:29 cirrhosis of liver; Diabetes - NIDDM; Hepatitis; low platelets; splenomegaly; iw - Immunization history:: Adult Immunizations up to date, Client reports receiving the 1st dose of the Covid vaccine, July 2020 J\T\J. - Social history:: Smoking status: Patient reports the use of cigarette tobacco products, smokes one-half pack cigarettes per day. ROS: 18:05 Constitutional: Negative for fever, chills, and weight loss. kb 18:05 Abdomen/GI: Positive for abdominal pain, hematemesis, rectal bleeding, Negative for diarrhea, constipation. 18:05 All other systems are negative. Exam: 18:06 Constitutional: This is a well developed, well nourished patient who is awake, alert, kb and in no acute distress. Head/Face: Normocephalic, atraumatic. ENT: Moist Mucous membranes Cardiovascular: Regular rate and rhythm with a normal S1 and S2. No gallops, murmurs, or rubs. No pulse deficits. Respiratory: Respirations even and unlabored. No increased work of breathing, no retractions or nasal flaring. Skin: Warm, dry with normal turgor. Normal color. MS/ Extremity: Pulses equal, no cyanosis. Neurovascular intact. Full, normal range of motion. Neuro: Awake and alert, GCS 15, oriented to person, place, time, and situation. Moves all extremities. Normal gait. Psych: Awake, alert, with orientation to person, place and time. Behavior, mood, and affect are within normal limits. 18:06 Abdomen/GI: Inspection: abdomen appears normal, Bowel sounds: normal, in all quadrants, Palpation: soft, in all quadrants, mild abdominal tenderness, in the right upper quadrant and left upper quadrant, Rectal exam: rectal tone normal, Stool: guaiac negative, hemorrhoid(s), external, with pain, tenderness. Vital Signs: 14:26 BP 126 / 81; Pulse 98; Resp 16; Temp 97.8; Pulse Ox 100% ; lm7 15:55 BP 116 / 81 Supine; Pulse 91; ap3 16:00 BP 125 / 74 Sitting; Pulse 89; ap3 16:04 BP 114 / 75 Standing; Pulse 92; ap3 17:35 BP 110 / 65; Pulse 85; Pulse Ox 100% on R/A; ap3 20:05 BP 111 / 71; Pulse 87; Resp 16; Pulse Ox 99% on R/A; em MDM: 14:51 Patient medically screened. 18:03 Data reviewed: vital signs, nurses notes. Data interpreted: Pulse oximetry: on room air kb is 100 %. Interpretation: normal. 18:27 ED course: Pt reports upper abd pain is chronic due to her liver. kb 19:33 ED course: Hgb 9.1 to 7.8. No episodes of bleeding since arrival. Transfer initiated to [facility]. 20:15 ED course: Dr Phelps, GI, accepts pt for consult at [facility].. kb 20:43 Counseling: I had a detailed discussion with the patient and/or guardian regarding: the kb historical points, exam findings, and any diagnostic results supporting the discharge/admit diagnosis, lab results, radiology results, the need to transfer to another facility. ED course: Dr Moore, hospitalist, accepts pt for transfer to [facility]. Requests Rocephin 1gm be given now.. 01/12 14:42 Order name: Basic Metabolic Panel ap3 01/12 14:42 Order name: CBC with Diff ap3 01/12 14:42 Order name: Hepatic Function; Complete Time: 15:58 ap3 01/12 14:42 Order name: Lipase; Complete Time: 15:58 ap3 01/12 14:42 Order name: Basic Metabolic Panel; Complete Time: 15:58 EDMS 01/12 14:51 Order name: Type And Screen kb 01/12 15:59 Order name: CT Abd/Pelvis - IV Contrast Only; Complete Time: 17:32 kb 01/12 17:27 Order name: CBC Smear Scan EDMS 01/12 17:40 Order name: Hematocrit; Complete Time: 19:15 kb 01/12 17:40 Order name: Hemoglobin; Complete Time: 19:15 kb 01/12 20:14 Order name: Protime (+inr); Complete Time: 20:58 kb 01/12 20:14 Order name: Ptt, Activated; Complete Time: 20:58 kb 01/12 22:33 Order name: SARS-COV-2 RT PCR EDGA 01/12 14:42 Order name: IV Saline Lock; Complete Time: 14:56 ap3 01/12 14:42 Order name: Labs collected and sent; Complete Time: 14:56 ap3 01/12 15:46 Order name: Orthostatics; Complete Time: 16:03 kb 01/12 17:33 Order name: US Abdomen Limited; Complete Time: 18:47 kb Administered Medications: 16:12 Drug: fentaNYL (PF) 25 mcg {Note: RASS0.} Route: IVP; Site: right antecubital; ap3 18:29 Follow up: Response: No adverse reaction ap3 16:12 Drug: Zofran (Ondansetron) 4 mg Route: IVP; Site: right antecubital; ap3 18:29 Follow up: Response: No adverse reaction ap3 16:12 Drug: NS 0.9% 1000 ml Route: IV; Rate: 1000 ml; Site: right antecubital; ap3 18:34 Drug: morphine 2 mg Route: IVP; Site: right antecubital; ap3 20:00 Drug: ProTONIX (pantoprazole) 80 mg Route: IVP; Site: right antecubital; em 20:00 Drug: ProTONIX (pantoprazole) 8 mg/hr Route: IV; Rate: 25 ml/hr; Site: right em antecubital; 20:03 Not Given (Physician Discretion): Octreotide 50 mcg IV at calculated rate once em 20:03 Drug: Octreotide Infusion (50 mcg/hr) - (Octreotide 500 mcg, NS 0.9% 500 ml) Route: IV; em Rate: 50 ml/hr; Site: right antecubital; 21:43 Drug: morphine 2 mg Route: IVP; Site: left forearm; em 21:43 Drug: Rocephin (cefTRIAXone) 1 grams Route: IV; Rate: calculated rate; Site: left em forearm; Disposition Summary: 01/12/21 20:45 Transfer Ordered Transfer Location: [facility] kb Reason: Higher level of care kb Condition: Stable kb Problem: new kb Symptoms: are unchanged kb Accepting Physician: Dr Moore(01/13/21 01:52) em Diagnosis - GI Bleed/ Gastrointestinal hemorrhage, unspecified kb Forms: - Medication Reconciliation Form kb - SBAR form kb Addendum: 01/15/2021 07:13 Co-signature as Attending Physician, Juan A Lamb MD I agree with the assessment and k dr plan of care. 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 Pt reported 2 episodes of kb vomiting with blood yesterday, as well as blood in stool today. No vomiting today. Pt is in no apparent distress. A\T\Ox3. Stool guiac negative. No rectal bleeding since arrival. Pt has GI at [facility] to follow up with. . kb 21:41 19:28 CORONAVIRUS+MR.LAB.BRZ ordered. EDMS EDMS 01/13 01:52 01/12 20:45 Dr Moore [facility]
--- NOTE | 2021-01-12 20:46 | ER ---
Nurse's Notes [facility] Name: Cheyenne Mcgill Age: 55 yrs Sex: Female : 1965 Arrival Date: 01/12/2021 Time: 11:29 Bed 12 Private MD: Diagnosis: GI Bleed/ Gastrointestinal hemorrhage, unspecified Presentation: 01/12 11:29 Chief complaint: EMS states: vomited blood yesterday and had blood in her stool this iw morning. Ebola Screen: Patient negative for fever greater than or equal to 101.5 degrees Fahrenheit, and additional compatible Ebola Virus Disease symptoms Patient denies exposure to infectious person. Patient denies travel to an Ebola-affected area in the 21 days before illness onset. No symptoms or risks identified at this time. Onset of symptoms was January 12, 2021. 11:29 Method Of Arrival: EMS: [facility] iw 11:29 Acuity: ABDULKADIR 3 iw 14:57 Coronavirus screen: At this time, the client does not indicate any symptoms associated ap3 with coronavirus-19. Initial Sepsis Screen: Does the patient meet any 2 criteria? No. Patient's initial sepsis screen is negative. Does the patient have a suspected source of infection? No. Patient's initial sepsis screen is negative. Risk Assessment: Do you want to hurt yourself or someone else? Patient reports no desire to harm self or others. HAND PACKER: 17:36 LMP N/A - Post-menopause ap3 Historical: - Allergies: 11:29 No Known Allergies; iw - Home Meds: 11:29 Humulin 70/30 100 unit/mL (70-30) Sub-Q susp 80 unit twice a day [Active]; metformin iw 1,000 mg Oral tr24 2 tabs once daily [Active]; - PMHx: 11:29 cirrhosis of liver; Diabetes - NIDDM; Hepatitis; low platelets; splenomegaly; iw - Immunization history:: Adult Immunizations up to date, Client reports receiving the 1st dose of the Covid vaccine, July 2020 J\T\J. - Social history:: Smoking status: Patient reports the use of cigarette tobacco products, smokes one-half pack cigarettes per day. Screenin:57 Abuse screen: Denies threats or abuse. Nutritional screening: No deficits noted. ap3 Tuberculosis screening: No symptoms or risk factors identified. Fall Risk None identified. Assessment: 14:56 General: Appears in no apparent distress. comfortable, Behavior is calm, cooperative, ap3 appropriate for age. Pain: Complains of pain in abdomen. Neuro: Level of Consciousness is awake, alert, obeys commands, Oriented to person, place, time, situation, Appropriate for age. Respiratory: Airway is patent Respiratory effort is even, unlabored, Respiratory pattern is regular, symmetrical. GI: Reports rectal bleeding, vomiting. : No signs and/or symptoms were reported regarding the genitourinary system. EENT: No signs and/or symptoms were reported regarding the EENT system. 20:05 Reassessment: Patient appears in no apparent distress at this time. Patient and/or em family updated on plan of care and expected duration. Pain level reassessed. Patient is alert, oriented x 3, equal unlabored respirations, skin warm/dry/pink. 23:55 Reassessment: report given to MARIA M Isaac at [facility], pending EMS transportation.em 01/13 01:41 Reassessment: report given to [facility] Cinder Snapper. em Vital Signs: 01/12 14:26 BP 126 / 81; Pulse 98; Resp 16; Temp 97.8; Pulse Ox 100% ; lm7 15:55 BP 116 / 81 Supine; Pulse 91; ap3 16:00 BP 125 / 74 Sitting; Pulse 89; ap3 16:04 BP 114 / 75 Standing; Pulse 92; ap3 17:35 BP 110 / 65; Pulse 85; Pulse Ox 100% on R/A; ap3 20:05 BP 111 / 71; Pulse 87; Resp 16; Pulse Ox 99% on R/A; em ED Course: 11:29 Patient arrived in ED. iw 11:29 Triage completed. iw 11:30 Arm band placed on. iw 14:41 Nancy Allen RN is Primary Nurse. ap3 14:51 Zina Muñiz FNP-C is PHCP. kb 14:51 Juan A Lamb MD is Attending Physician. kb 14:57 Inserted saline lock: 20 gauge in right antecubital area, using aseptic technique. ap3 Blood collected. 14:58 Patient has correct armband on for positive identification. Placed in gown. Pulse ox ap3 on. NIBP on. Door closed. Noise minimized. 17:09 CT Abd/Pelvis - IV Contrast Only In Process Unspecified. EDMS 18:31 US Abdomen Limited In Process Unspecified. EDMS 19:23 Initiated transfer at [facility] with Marta Blank. Stated she would check for beds tt3 and call back. DULCE Persaud, pt provider was informed. 20:11 Cynthia Delacruz called from [facility] transfer center with Dr. Phelps to speak with tt3 DULCE Persaud, provider of pt regarding the transfer request. 20:37 Cynthia Delacruz called from [facility] transfer center with Dr. Moore to speak with Zina ttDULCE Berrios, provider of pt regarding the transfer request. Was informed by Zina that the pt was accepted. Bed assignment and admin approval pending - waiting for covid result. 22:34 Updated [facility] Transfer Center on pt covid results. tt3 22:37 Marta Blank gave admin approval. The accepting physician is Dr. Moore. Dr. Moore tt3 accepted at 20:42. Nurse to call report to . Facesheet and covid results to be faxed to [phone]. 01/13 01:42 No provider procedures requiring assistance completed. Patient transferred, IV remains em in place. Administered Medications: 01/12 16:12 Drug: fentaNYL (PF) 25 mcg {Note: RASS0.} Route: IVP; Site: right antecubital; ap3 18:29 Follow up: Response: No adverse reaction ap3 16:12 Drug: Zofran (Ondansetron) 4 mg Route: IVP; Site: right antecubital; ap3 18:29 Follow up: Response: No adverse reaction ap3 16:12 Drug: NS 0.9% 1000 ml Route: IV; Rate: 1000 ml; Site: right antecubital; ap3 18:34 Drug: morphine 2 mg Route: IVP; Site: right antecubital; ap3 20:00 Drug: ProTONIX (pantoprazole) 80 mg Route: IVP; Site: right antecubital; em 20:00 Drug: ProTONIX (pantoprazole) 8 mg/hr Route: IV; Rate: 25 ml/hr; Site: right em antecubital; 20:03 Not Given (Physician Discretion): Octreotide 50 mcg IV at calculated rate once em 20:03 Drug: Octreotide Infusion (50 mcg/hr) - (Octreotide 500 mcg, NS 0.9% 500 ml) Route: IV; em Rate: 50 ml/hr; Site: right antecubital; 21:43 Drug: morphine 2 mg Route: IVP; Site: left forearm; em 21:43 Drug: Rocephin (cefTRIAXone) 1 grams Route: IV; Rate: calculated rate; Site: left em forearm; Outcome: 20:45 ER care complete, transfer ordered by MD. hrae 01/13 01:42 Transferred by ground EMS to [facility], [facility], Transfer form completed. em X-rays sent w/ patient. Condition: stable Instructed on the need for transfer, Demonstrated understanding of instructions. 01:52 Patient left the ED. em Signatures: Dispatcher [employer] Zina Rushing, BALANCE WHEEL ARM BURNISHER-C BALANCE WHEEL ARM BURNISHER-Syed Carrillo RN RN em Williams, Irene, RN RN iw Minter, Laura [id number] Nancy Allen RN RN ap3 Sachin Reddy tt3
[2021-01-12] MEDS ORDERED: MORPHINE 2 MG/ML SYR ONE (21:53)
[2021-01-12] MEDS ORDERED: CEFTRIAXONE/SWI 1gm 1 GM/10 ML SYR ONE (21:54)
[2021-01-13 01:59] VITALS: TEMP 97.8
[2021-01-13 02:06] VITALS: BP 111/71; O2SAT 99
== END 2021-01-13 01:52 | disposition short-term general hospital (02) ==
LOC: ER 11:27
DX: K92.2 Gastrointestinal hemorrhage, unspecified (principal); Z20.822 Contact with and (suspected) exposure to COVID-19; E11.9 Type 2 diabetes mellitus without complications; K74.60 Unspecified cirrhosis of liver; F17.210 Nicotine dependence, cigarettes, uncomplicated; Z79.4 Long term (current) use of insulin
CPT/HCPCS: 85025; 80048; 36415; 86900; 86850; 85610; 86901; 80076; 85730; 85018; 85014; 83690; 74177; 76705; 99285; U0003; Q9967; J3010; J2270; J0696; J7050; J7040; J7030; J2405

== ENCOUNTER 2021-06-12 19:22 | Emergency (ER) | payer MEDICARE, OTHER ==
--- OUTSIDE RECORDS SUMMARY | 2021-06-12 19:26 | XMS REPORT | Clinical Summary ---
:1965 Author Organization [facility] MD [facility] Address [address] [place] [id number] Care Team Providers Name Role Phone Unavailable Primary Care Provider Unavailable Allergies Not on File Medications Not on file Active Problems Not on file Encounters Date Type Specialty Care Team Description 08/12/2020 Immunization Infectious Diseases SARS-CoV -2 vaccination (Primary Dx) after 06/12/2020 Immunizations Name Administration Dates Next Due Feliz SARS-CoV-2 Vaccination 08/12/2020 Social History Tobacco Use Types Packs/Day Years Used Date Never Assessed Sex Assigned at Date Recorded Not on file Last Filed Vital Signs Not on file Plan of Treatment Not on file Results Not on fileafter 06/12/2020
--- OUTSIDE RECORDS SUMMARY | 2021-06-12 19:34 | XMS REPORT | Continuity of Care Document ---
:1965 Author Organization [facility] t Address [address] [place] [address] Care Team Providers Name Role Phone Asked, Pcp Primary Care Physician Unavailable JADE JAIN Attending Clinician Unavailable LENIN Attending Clinician Unavailable LUIS ENRIQUE Attending Clinician Unavailable KEITH Attending Clinician Unavailable MARIA A QUEVEDO Attending Clinician Unavailable ENRIQUE ANTON Attending Clinician Unavailable Leoncio WATTS Attending Clinician Unavailable Lele PRICE Attending Clinician Unavailable NICK HERNANDEZ Attending Clinician Unavailable PRIYANKA Attending Clinician Unavailable ROSE Attending Clinician Unavailable Lashell MTZ Attending Clinician Unavailable MARIAN MEDINA Attending Clinician Unavailable Lele CHOW Attending Clinician Unavailable PRATIK SCHAEFER Attending Clinician Unavailable Tanya Lilly Attending Clinician Addison Muñiz Attending Clinician Unavailable Enrique Anton MD Attending Clinician Crispin NULL Attending Clinician Jessee Brewer MD Attending Clinician Rachel BERNARD Attending Clinician Timothy Spencer MD Attending Clinician Cadence SANTOS, Debbie Attending Clinician Germán Attending Clinician Unavailable Serina NULL, Alvino Attending Clinician Oracio NULL Attending Clinician Saba Ortiz Attending Clinician Unavailable Keith NULL Attending Clinician Ajith NULL, Jasmine Attending Clinician Halle NULL Attending Clinician Odilia NULL Attending Clinician Nick Hernandez MD Attending Clinician Adi NULL, Jojo Attending Clinician Martir NULL, Nam Attending Clinician Madelin NULL, Cecilia Attending Clinician JEISON SPENCER Attending Clinician Unavailable Lenin NULL Attending Clinician KAMLA RASCON Attending Clinician Unavailable Lia INGRAM Attending Clinician Unavailable Jessica TELLES Attending Clinician Unavailable LANCE MARTIN Attending Clinician Unavailable MITZI Attending Clinician Unavailable Dinesh HURTADO Attending Clinician Unavailable JADE JAIN Admitting Clinician Unavailable LENIN Admitting Clinician Unavailable LUIS ENRIQUE Admitting Clinician Unavailable KEITH Admitting Clinician Unavailable PAULINA LOVE Admitting Clinician Unavailable JASMINE THOMPSON Admitting Clinician Unavailable MARIAN MEDINA Admitting Clinician Unavailable ROMERO BATEMAN Admitting Clinician Unavailable CRISPIN Admitting Clinician Unavailable JEISON SPENCER Admitting Clinician Unavailable URSULA RASCON Admitting Clinician Unavailable Lia INGRAM Admitting Clinician Unavailable LANCE MARTIN Admitting Clinician Unavailable MITZI Admitting Clinician Unavailable Dinesh HURTADO Admitting Clinician Unavailable Payers Payer Name Policy Type Policy Number Effective Date Expiration Date S nader [employer] MEDICARE [id number] 2020 ADV 00:00:00 [employer] MEDICARE [id number] 2020 00:00:00 MEDICAID SSI PENDING 2019 PENDING 00:00:00 MEDICARE A B [id number] 2020 00:00:00 MEDICAID 365 [id number] 2019 2019 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 00:00:00 00:00:00 Problems Condition Condition Condition Status Onset Resolution Last Treating Co mments Source Name Details Category Date Date Treatment Clinician Date 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[facility] hypertensi 7-29 [facility] - on on 00:[facility] 00 Center 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 7-29 [facility] - varices varices 00:00: Medical without without 00 Center bleeding bleeding Anemia Anemia Disease [facility] GI bleed GI bleed Disease [facility] Hepatitis Hepatitis Disease Active [facility] 00 Center Hematochez Hematochez Disease Active [facility] - [facility] Acute Acute Disease Active [facility] blood loss blood loss 7-11 N[facility] k[facility] - anemia anemia 00:00: Medical 00 Center Acute Acute Disease Active [facility] hepatic hepatic 7-11 [facility] - encephalop encephalop 00:00: Me dical athy athy 00 Center NATACHA (acute NATACHA (acute Disease Active [facility] kidney kidney 7-11 [facility] - injury) injury) 00:00: Medical 00 Center Gastrointe Gastrointe Disease Active [facility] stinal stinal 7-10 [facility] - hemorrhage hemorrhage 00:00: Me dical with with 00 Center hematemesi hematemesi s s M54.14 - Diagnosis Active 2021-01-11 M emoria RADICULOPA 11-29 15:43:00 l THY, M54.14 - 00:01: Abdi yoo THORACIC RADICULOPA 00 REGION THY, THORACIC REGION Active 11/29/[address] R41.3 - Diagnosis Active 2020-12-29 Me moria OTHER 11-16 15:43:00 l AMNESIA R41.3 - 00:01: Abdi n G25.3 - OTHER 00 MYOCLONUS AMNESIA G25.3 - MYOCLONUS Active 11/16/[address] R10.9 - Diagnosis Active 2020-10-12 Me moria UNSPECIFIE 08-30 15:27:00 l D R10.9 - 00:01: [place] ABDOMINAL UNSPECIFIE 00 PAIN M54.5 D ABDOMINAL PAIN M54.5 Active 08/30/[address] LOW BACK Diagnosis Active 2020-10-03 M emoria PAIN 08-29 15:31:00 l LOW BACK 08:00: Abdi n PAIN 00 Active 08/29/2020 [facility] Hepatitis Hepatitis Disease Active [facility] 00:00: Hospita 00 l Hepatitis Hepatitis Disease Active [facility] 00[facility]ospita 00 l Right Right Disease Active [facility] lower lower 8[facility] st quadrant quadrant 00:00: Hospit a abdominal abdominal 00 l pain pain Type 2 Type 2 Disease Active [facility] diabetes diabetes 812 st mellitus mellitus 00:00: Hospit a without without 00 l complicati complicati on on Transient Problem Resolve 2021-02-17 M emoria ischemic d 21:58:10 l attack [place] (disorder) Transient ischemic attack (disorder) Resolved Problem 02/17/2021 [facility], OPID Alma Rosa Cirrhosis Problem Active 2021-02-17 Me moria of liver 21:58:10 l (disorder) Abdi n Cirrhosis of liver (disorder) Active Problem 02/17/2021 [facility], OPID [place] Knee pain Problem Active 2021-02-17 Me moria (finding) 21:58:10 l Knee [place] pain (finding) Active Problem 02/17/2021 [facility] Neuro, OPID [place] Recurrent Problem Active 2021-02-17 Me moria falls 21:58:10 l (finding) García Recurrent falls (finding) Active Problem 02/17/2021 [facility], OPID [place] Abdominal Problem Active 2021-02-17 Me moria pain 21:58:10 l (finding) [place] Abdominal pain (finding) Active Problem 02/17/2021 [facility] her Neuro, OPID [place] Amnesia Problem Active 2021-02-17 José Miguel licha (finding) 21:58:10 l Amnesia García (finding) Active Problem 02/17/2021 [facility] her Neuro, OPID [place] Chronic Problem Active 2021-02-17 José Miguel licha hepatitis 21:58:10 l C Chronic García (disorder) hepatitis C (disorder) Active Problem 02/17/2021 [facility] her Neuro, OPID [place] Diabetes Problem Active 2021-02-17 Mem oria mellitus 21:58:10 l (disorder) Diabetes He rmann mellitus (disorder) Active Problem 02/17/2021 [facility] Neuro, OPID [place] Headache Problem Active 2021-02-17 Mem oria (finding) 21:58:10 l Headache Abdi n (finding) Active Problem 02/17/2021 [facility] Neuro, OPID [place] Hyperlipid Problem Active 2021-02-17 M emoria emia 21:58:10 l (disorder) Abdi n Hyperlipid emia (disorder) Active Problem 02/17/2021 [facility] her Neuro, OPID [place] Low back Problem Active 2021-02-17 Mem oria pain 21:58:10 l (disorder) Low back He rmann pain (disorder) Active Problem 02/17/2021 [facility] Neuro, OPID [place] Myoclonus Problem Active 2021-02-17 Me moria (finding) 21:58:10 l [place] Myoclonus (finding) Active Problem 02/17/2021 [facility] Neuro, OPID [place] Compressio Problem Active 2021-02-17 M emoria n fracture 21:58:10 l of [place] thoracic Compressio spine n fracture (disorder) of thoracic spine (disorder) Active Problem 02/17/2021 [facility] Neuro, OPID [place] Type II Problem Active 2021-02-17 José Miguel licha diabetes 21:58:10 l mellitus Type II Corine nn uncontroll diabetes ed mellitus (finding) uncontroll ed (finding) Active Problem 02/17/2021 Medical Group,[facility] her Neuro, [facility] Allergies, Adverse Reactions, Alerts Allergy Allergy Status Severity Reaction(s) Onset Inactive Treating Comm ents Source Name Type Date Date Clinician NO KNOWN Drug Active [facility] ALLERGIE Class it[facility] of [facility] NO KNOWN Allergy Active [facility] Family History Family Member Diagnosis Comments Start Date Stop Date Source Natural father No Known Problem [facility] Natural mother No Known Problem [facility] Social History Social Habit Start Date Stop Date Quantity Comments Source History of tobacco Cigarette Smoker [facility] use [facility] Exposure to Not sure [facility] - SARS-CoV-2 (event) [facility] Tobacco use and 2020-12-25 2020-12-25 Never used [facility] - exposure 00:00:00 00:00:00 [facility] Alcohol intake 2020-12-25 2020-12-25 Ex-drinker [facility]3] es - 00:00:00 00:00:00 (finding) [facility] Social History 2020-08-23 2020-08-[address] [facility] 20:12:29 20:12:29 Cigarettes smoked 2016-01-12 2016-01-[address] current (pack per 00:00:00 00:00:00 Hospita l day) - Reported Cigarette 2016-01-12 2016-01-12 [facility]ist pack-years 00:00:00 00:00:00 Hospital Sex Assigned At [birth year] MD Ibarra on 00:00:00 00:00:00 Smoking Status Start Date Stop Date Source Current every day smoker 2020-12-25 00:00:00 [facility] Medications Ordered Filled Start Stop Current Ordering Indication Dosage Frequency Signature Comments Components Source Medication Medication Date Date Medication? Clinician (SIG) Name Name Methocarbam Yes 750 mg = 1 Memoria ol 750 MG 8-23 tab, PO, l Oral Tablet 21:56: BID, PRN He rmann [Robaxin] 00 Spasms, X 30 day, # 60 tab, 2 Refill(s), Pharmacy: [facility], 136.32, cm, 12/27/20 11:32:00 CDT, Height, 54.545, kg, 12/27/20 11:32:00 CDT, Weight Methocarbam 2021-0 Yes 750 mg = 1 Memoria ol 750 MG 8-23 tab, PO, l Oral Tablet 21:56: BID, PRN He rmann [Robaxin] 00 Spasms, X 30 day, # 60 tab, 2 Refill(s), Pharmacy: [facility], 147.32, cm, 12/27/20 11:32:00 CDT, Height, 54.545, kg, 12/27/20 11:32:00 CDT, Weight Methocarbam 2021-0 Yes 750 mg = 1 Memoria ol 750 MG 8-23 tab, PO, l Oral Tablet 21:56: BID, PRN He rmann [Robaxin] 00 Spasms, X 30 day, # 60 tab, 2 Refill(s), Pharmacy: [facility], 147.32, cm, 12/27/20 11:32:00 CDT, Height, 54.545, kg, 12/27/20 11:32:00 CDT, Weight Hydroxyzine 2021-0 Yes 25 mg = 1 M emoria Hydrochlori 8-23 cap, PO, l de 25 MG 21:55: TID, PRN Corine nn Oral 00 Itching, X Capsule 10 day, # 30 cap, 2 Refill(s), Pharmacy: [facility], 147.32, cm, 12/27/20 11:32:00 CDT, Height, 54.545, kg, 12/27/20 11:32:00 CDT, Weight Hydroxyzine 2021-0 Yes 25 mg = 1 M emoria Hydrochlori 8-23 cap, PO, l de 25 MG 21:55: TID, PRN Corine nn Oral 00 Itching, X Capsule 10 day, # 30 cap, 2 Refill(s), Pharmacy: [facility], 147.32, cm, 12/27/20 11:32:00 CDT, Height, 54.545, kg, 12/27/20 11:32:00 CDT, Weight Hydroxyzine 2021-0 Yes 25 mg = 1 M emoria Hydrochlori 8-23 cap, PO, l de 25 MG 21:55: TID, PRN Corine nn Oral 00 Itching, X Capsule 10 day, # 30 cap, 2 Refill(s), Pharmacy: [facility], 147.32, cm, 12/27/20 11:32:00 CDT, Height, 54.545, kg, 12/27/20 11:32:00 CDT, Weight rifAXIMin 2020-0 Yes 550mg Q.5D Take 1 [facility] Tab 8-09 tablet [facility] - 00:00: (550 mg Medical 00 total) by Center mouth 2 (two) times daily. simvastatin 2020-0 Yes 20mg QD Take [address] (ZOCOR) 20 7-25 by mouth [facility] - MG tablet 14:17: nightly. Medi iglesia 07 Center metFORMIN 0 Yes 1000mg Take 1,[address] (GLUCOPHAGE 7-25 mg by [facility] - ) 1000 MG 14:17: mouth 2 Medic al tablet 07 (two) Center times daily with breakfast and dinner. lactulose 0 Yes 10g Q.[id number] Take [address] (CHRONULAC) 7-25 [id number] by mouth 3 [facility] - 10 gram/15 14:17: 3D (three) Medi iglesia mL (15 mL) 07 times Center solution daily. gabapentin 2020-0 Yes 300mg Q.[id number] Take [address] (NEURONTIN) 7-25 [id number] mg by L ukes - 300 MG 14:17: 3D mouth 3 Medical capsule 07 (three) Center times daily. propranoloL 2020-0 Yes 20mg Q.5D Take [address] (INDERAL) 7-25 by mouth 2 Luke s - 20 MG 14:17: (two) Medical tablet 07 times Center daily. FLUoxetine 2020-0 Yes 40mg QD Take [address] (PROzac) 40 7-25 by mouth Luke s - MG capsule 14:17: daily . Medi iglesia 07 Center diphenhydrA 2020-0 Yes 25mg Q.[id number] Take [address] MINE 7-25 [id number] by mouth 3 Tom es - (BENADRYL) [...] Take [address] e (NexIUM) 12-24-25 by mouth Luke s - 40 MG 08:30: 00:00 daily. Medical capsule 42 :00 Center esomeprazol Yes 40mg QD Take [address] e (NexIUM) -25 capsule [facility] - 40 MG 00:00: (40 mg Medical capsule 00 total) by Center mouth daily. traMADoL 2020- No 50mg Take [address] (ULTRAM) 50 12-2404 tablet (50 L ukes - mg tablet 00:00: 23:59 mg total) Me dical 00 :00 by mouth Center every 6 (six) hours as needed for Pain for up to 10 days. Max Daily Amount: 200 mg rifAXIMin 2020- No 550mg Q.5D Take [address] 550 mg Tab 12-21 08-09 tablet [facility] - 00:00: 00:00 (550 mg Medical 00 :00 total) by Center mouth 2 (two) times daily. cefdinir 2020- No 300mg Q.5D Take 1 [facility] (OMNICEF) 12-1417 capsule [facility] - 300 MG 00:00: 23:59 (300 mg Medical capsule 00 :00 total) by Center mouth 2 (two) times daily for 2 days Antibiotic s to prevent infection. furosemide 2020- No 40mg Q.5D Take [address] (LASIX) 40 12-13-14 by mouth 2 Ning kes - MG [...] To prevent confusion sec to liver disease. rifaximin 0 Yes 0 Memoria 550 MG Oral 6-16 Refill(s) l Tablet 15:08: García [XIFAXAN] rifaximin 0 Yes 0 Memoria 550 MG Oral 6-16 Refill(s) l Tablet 15:08: García [XIFAXAN] rifaximin 0 Yes 0 Memoria 550 MG Oral 6-16 Refill(s) l Tablet 15:08: García [XIFAXAN] rifaximin 0 Yes 0 Memoria 550 MG Oral 6-16 Refill(s) l Tablet 15:08: García [XIFAXAN] Methocarbam Yes 750 mg = 1 Memoria ol 750 MG 5-24 tab, PO, l Oral Tablet 19:24: BID, PRN He vianey [Robaxin] 00 Spasms, X 14 day, # 28 tab, 1 Refill(s), Pharmacy: [facility], 149.86, cm, 10/23/20 14:04:00 CDT, Height, 60.483, kg, 10/23/20 14:04:00 CDT, Weight Methocarbam 2020-0 Yes 750 mg = 1 Memoria ol 750 MG 5-24 tab, PO, l Oral Tablet 19:24: BID, PRN He rmann [Robaxin] 00 Spasms, X 14 day, # 28 tab, 1 Refill(s), Pharmacy: [facility], 149.86, cm, 10/23/20 14:04:00 CDT, Height, 60.483, kg, 10/23/20 14:04:00 CDT, Weight Methocarbam 2020-0 Yes 750 mg = 1 Memoria ol 750 MG 5-24 tab, PO, l Oral Tablet 19:24: BID, PRN He rmann [Robaxin] 00 Spasms, X 14 day, # 28 tab, 1 Refill(s), Pharmacy: [facility], 149.86, cm, 10/23/20 14:04:00 CDT, Height, 60.483, kg, 10/23/20 14:04:00 CDT, Weight Methocarbam 2020-0 Yes 750 mg = 1 Memoria ol 750 MG 5-24 tab, PO, l Oral Tablet 19:24: BID, PRN He rmann [Robaxin] 00 Spasms, X 14 day, # 28 tab, 1 Refill(s), Pharmacy: [facility], 149.86, cm, 10/23/20 14:04:00 CDT, Height, 60.483, kg, 10/23/20 14:04:00 CDT, Weight buPROPion 2020-0 Yes 100 mg = 1 Me moria 100 mg oral 3-29 tab, PO, l tablet 16:37: BID, # 180 Corine nn 00 tab, 0 Refill(s) Bisacodyl 5 2020-0 Yes 10 mg = 2 M emoria MG Enteric 3-29 tab, PO, l Coated 16:37: Daily, PRN Corine nn Tablet 00 Constipati [Dulcolax] on, # 20 tab, 0 Refill(s) buPROPion 2020-0 Yes 100 mg = 1 Me moria 100 mg oral 3-29 tab, PO, l tablet 16:37: BID, # 180 Corine nn 00 tab, 0 Refill(s) Bisacodyl 5 2020-0 Yes 10 mg = 2 M emoria MG Enteric 3-29 tab, PO, l Coated 16:37: Daily, PRN Corine nn Tablet 00 Constipati [Dulcolax] on, # 20 tab, 0 Refill(s) buPROPion 0 Yes 100 mg = 1 Me moria 100 mg oral 3-29 tab, PO, l tablet 16:37: BID, # 180 Corine nn 00 tab, 0 Refill(s) Bisacodyl 5 0 Yes 10 mg = 2 M emoria MG Enteric 3-29 tab, PO, l Coated 16:37: Daily, PRN Corine nn Tablet 00 Constipati [Dulcolax] on, # 20 tab, 0 Refill(s) buPROPion Yes 100 mg = 1 Me moria 100 mg oral 3-29 tab, PO, l tablet 16:37: BID, # 180 Corine nn 00 tab, 0 Refill(s) Bisacodyl 5 Yes 10 mg = 2 M emoria MG Enteric 3-29 tab, PO, l Coated 16:37: Daily, PRN Corine nn Tablet 00 Constipati [Dulcolax] on, # 20 tab, 0 Refill(s) Nexium 0 Yes PO, BID, 0 Memor ia 3-24 Refill(s) l 19:30: Benadryl 0 Yes 25 mg, PO, Mem oria 3-24 TID, 0 l 19:30: Refill(s) Nexium 2020-0 Yes PO, BID, 0 Memor ia 3-24 Refill(s) l 19:30: Benadryl 0 Yes 25 mg, PO, Mem oria 3-24 TID, 0 l 19:30: Refill(s) Nexium 2020-0 Yes PO, BID, 0 Memor ia 3-24 Refill(s) l 19:30: Benadryl 2020-0 Yes 25 mg, PO, Mem oria 3-24 TID, 0 l 19:30: Refill(s) Nexium 2020-0 Yes PO, BID, 0 Memor ia 3-24 Refill(s) l 19:30: Benadryl Yes 25 mg, PO, Mem oria 3-24 TID, 0 l 19:30: Refill(s) García 00 simvastatin Yes 20 mg = 1 M emoria 20 mg oral 2-25 tab, PO, l tablet 19:45: Bedtime, # Corine nn 00 90 tab, 1 Refill(s) Metformin Yes 1,000 mg, Mem oria 2-25 PO, BID, 0 l 19:45: Refill(s) García 00 gabapentin Yes 300 mg = 1 M emoria 300 MG Oral 2-25 cap, PO, l Capsule 19:45: TID, # 90 Coirne nn 00 cap, 0 Refill(s) Furosemide Yes 40 mg = 1 Me moria 40 MG Oral 2-25 tab, PO, l Tablet 19:45: BID, # 30 Abdi n 00 tab, 0 Refill(s) spironolact Yes 50 mg = 1 M emoria one 50 mg 2-25 tab, PO, l oral tablet 19:45: Daily, # He rmann 00 30 tab, 1 Refill(s) Omeprazole Yes 40 mg, PO, M emoria 2-25 Daily, 0 l 19:45: Refill(s) García 00 propranolol Yes 20 mg = 1 M emoria 20 mg oral 2-25 tab, PO, l tablet 19:45: BID, # 180 Corine nn 00 tab, 1 Refill(s) FLUoxetine Yes 20 mg = 1 Me moria 20 mg oral 2-25 tab, PO, l tablet 19:45: Daily, # [place] 00 90 tab, 0 Refill(s) Diphenhydra Yes 25 mg = 1 M emoria mine 2-25 tab, PO, l Hydrochlori 19:45: TID, 0 Herm derik de 25 MG 00 Refill(s) Oral Tablet [Benadryl] Methocarbam Yes 750 mg = 1 Memoria ol 750 MG 2-25 tab, PO, l Oral Tablet 19:45: Q8H, PRN He rmann [Robaxin] 00 Spasms, # 60 tab, 0 Refill(s) tramadol Yes 50 mg = 1 José Miguel licha hydrochlori 2-25 tab, PO, l de 50 MG 19:45: Q8H, PRN Corine nn Oral Tablet 00 Pain, # 60 tab, 0 Refill(s) lactulose Yes 0 Memoria 10 g/15 mL 2-25 Refill(s) l oral and 19:45: [place] rectal 00 liquid Amylases Yes 3 cap, PO, Mem oria 82619 UNT / 2-25 TID, 0 l Endopeptida 19:45: Refill(s) H ermann ses 11937 00 UNT / Lipase 07081 UNT Enteric Coated Capsule [Creon 12] simvastatin Yes 20 mg = 1 M emoria 20 mg oral 2-25 tab, PO, l tablet 19:45: Bedtime, # Corine nn 00 90 tab, 1 Refill(s) Metformin Yes 1,000 mg, Mem oria 2-25 PO, BID, 0 l 19:45: Refill(s) [place] 00 gabapentin Yes 300 mg = 1 M emoria 300 MG Oral 2-25 cap, PO, l Capsule 19:45: TID, # 90 Corine nn 00 cap, 0 Refill(s) Furosemide Yes 40 mg = 1 Me moria 40 MG Oral 2-25 tab, PO, l Tablet 19:45: BID, # 30 Abdi n 00 tab, 0 Refill(s) spironolact Yes 50 mg = 1 M emoria one 50 mg 2-25 tab, PO, l oral tablet 19:45: Daily, # He rmann 00 30 tab, 1 Refill(s) Omeprazole Yes 40 mg, PO, M emoria 2-25 Daily, 0 l 19:45: Refill(s) García 00 propranolol Yes 20 mg = 1 M emoria 20 mg oral 2-25 tab, PO, l tablet 19:45: BID, # 180 Corine nn 00 tab, 1 Refill(s) FLUoxetine Yes 20 mg = 1 Me moria 20 mg oral 2-25 tab, PO, l tablet 19:45: Daily, # García 00 90 tab, 0 Refill(s) Diphenhydra Yes 25 mg = 1 M emoria mine 2-25 tab, PO, l Hydrochlori 19:45: TID, 0 Herm derik de 25 MG 00 Refill(s) Oral Tablet [Benadryl] Methocarbam Yes 750 mg = 1 Memoria ol 750 MG 2-25 tab, PO, l Oral Tablet 19:45: Q8H, PRN He rmann [Robaxin] 00 Spasms, # 60 tab, 0 Refill(s) tramadol Yes 50 mg = 1 José Miguel licha hydrochlori 2-25 tab, PO, l de 50 MG 19:45: Q8H, PRN Corine nn Oral Tablet 00 Pain, # 60 tab, 0 Refill(s) lactulose Yes 0 Memoria 10 g/15 mL 2-25 Refill(s) l oral and 19:45: García rectal 00 liquid Amylases Yes 3 cap, PO, Mem oria 89514 UNT / 2-25 TID, 0 l Endopeptida 19:45: Refill(s) H ermann ses 05916 00 UNT / Lipase 42428 UNT Enteric Coated Capsule [Creon 12] simvastatin Yes 20 mg = 1 M emoria 20 mg oral 2-25 tab, PO, l tablet 19:45: Bedtime, # Corine nn 00 90 tab, 1 Refill(s) Metformin Yes 1,000 mg, Mem oria 2-25 PO, BID, 0 l 19:45: Refill(s) [place] 00 gabapentin Yes 300 mg = 1 M emoria 300 MG Oral 2-25 cap, PO, l Capsule 19:45: TID, # 90 Corine nn 00 cap, 0 Refill(s) Furosemide Yes 40 mg = 1 Me moria 40 MG Oral 2-25 tab, PO, l Tablet 19:45: BID, # 30 Abdi n 00 tab, 0 Refill(s) spironolact Yes 50 mg = 1 M emoria one 50 mg 2-25 tab, PO, l oral tablet 19:45: Daily, # He rmann 00 30 tab, 1 Refill(s) Omeprazole 2021-0 Yes 40 mg, PO, M emoria 2-25 Daily, 0 l 19:45: Refill(s) [place] 00 propranolol Yes 20 mg = 1 M emoria 20 mg oral 2-25 tab, PO, l tablet 19:45: BID, # 180 Corine nn 00 tab, 1 Refill(s) FLUoxetine Yes 20 mg = 1 Me moria 20 mg oral 2-25 tab, PO, l tablet 19:45: Daily, # García 00 90 tab, 0 Refill(s) Diphenhydra Yes 25 mg = 1 M emoria mine 2-25 tab, PO, l Hydrochlori 19:45: TID, 0 Herm derik de 25 MG 00 Refill(s) Oral Tablet [Benadryl] Methocarbam Yes 750 mg = 1 Memoria ol 750 MG 2-25 tab, PO, l Oral Tablet 19:45: Q8H, PRN rmann [Robaxin] 00 Spasms, # 60 tab, 0 Refill(s) tramadol Yes 50 mg = 1 José Miguel licha hydrochlori 2-25 tab, PO, l de 50 MG 19:45: Q8H, PRN Corine nn Oral Tablet 00 Pain, # 60 tab, 0 Refill(s) lactulose Yes 0 Memoria 10 g/15 mL 2-25 Refill(s) l oral and 19:45: García rectal 00 liquid Amylases Yes 3 cap, PO, Mem oria 68051 UNT / 2-25 TID, 0 l Endopeptida 19:45: Refill(s) H ermann ses 53095 00 UNT / Lipase 13381 UNT Enteric Coated Capsule [Creon 12] simvastatin Yes 20 mg = 1 M emoria 20 mg oral 2-25 tab, PO, l tablet 19:45: Bedtime, # Corine nn 00 90 tab, 1 Refill(s) Metformin Yes 1,000 mg, Mem oria 2-25 PO, BID, 0 l 19:45: Refill(s) [place] 00 gabapentin Yes 300 mg = 1 M emoria 300 MG Oral 2-25 cap, PO, l Capsule 19:45: TID, # 90 Corine nn 00 cap, 0 Refill(s) Furosemide Yes 40 mg = 1 Me moria 40 MG Oral 2-25 tab, PO, l Tablet 19:45: BID, # 30 Abdi n 00 tab, 0 Refill(s) spironolact Yes 50 mg = 1 M emoria one 50 mg 2-25 tab, PO, l oral tablet 19:45: Daily, # He rmann 00 30 tab, 1 Refill(s) Omeprazole Yes 40 mg, PO, M emoria 2-25 Daily, 0 l 19:45: Refill(s) [place] 00 propranolol Yes 20 mg = 1 M emoria 20 mg oral 2-25 tab, PO, l tablet 19:45: BID, # 180 Corine nn 00 tab, 1 Refill(s) FLUoxetine Yes 20 mg = 1 Me moria 20 mg oral 2-25 tab, PO, l tablet 19:45: Daily, # García 00 90 tab, 0 Refill(s) Diphenhydra Yes 25 mg = 1 M emoria mine 2-25 tab, PO, l Hydrochlori 19:45: TID, 0 Herm derik de 25 MG 00 Refill(s) Oral Tablet [Benadryl] Methocarbam Yes 750 mg = 1 Memoria ol 750 MG 2-25 tab, PO, l Oral Tablet 19:45: Q8H, PRN He rmann [Robaxin] 00 Spasms, # 60 tab, 0 Refill(s) tramadol Yes 50 mg = 1 José Miguel licha hydrochlori 2-25 tab, PO, l de 50 MG 19:45: Q8H, PRN Corine nn Oral Tablet 00 Pain, # 60 tab, 0 Refill(s) lactulose Yes 0 Memoria 10 g/15 mL 2-25 Refill(s) l oral and 19:45: García rectal 00 liquid Amylases Yes 3 cap, PO, Mem oria 71273 UNT / 2-25 TID, 0 l Endopeptida 19:45: Refill(s) H ermann ses 76666 00 UNT / Lipase 19250 UNT Enteric Coated Capsule [Creon 12] lactulose 2016-0 Yes 10g Q.17192414 Take 10 g Methodi 10 gram/15 8-14 [id number] mouth [address] mL solution 16:59: 3D (three) Hos iban 10 times a l day. omeprazole 2016-0 Yes 20mg QD Take 20 mg M ethodi (PriLOSEC) 8-[address] 20 MG 16:59: daily. Hospita capsule 10 l multivitami 2016-0 Yes 1{tbl} QD Take 1 Me thodi n 8-[address] (THERAGRAN) 16:59: mouth Hospi ta tablet 10 daily. l ibuprofen 2016-0 Yes 800mg Q6H Take 800 Met hodi (ADVIL,MOTR 8-[address] [place]) 800 MG 16:59: mouth Hospit a tablet 10 every 6 l (six) hours as needed for mild pain. traMADol 2015-0 Yes 50mg Q6H Take 50 mg Met hodi (ULTRAM) 50 8-[address] mg tablet 16:59: every 6 Hospi ta 10 (six) l hours [place]. [place] [address] Yes 1{tbl} QD Take 1 Met hodi PATIENT 8-[address] 16:59: mouth [facility]ospita 10 nightly. l Cholestero l Medication metFORMIN 2015-0 Yes 1000mg Q.5D Take 1,000 Methodi (GLUCOPHAGE 8-[address] ) 1000 MG 16:59: mouth 2 Hospi ta tablet 10 (two) l times a day with meals. gabapentin 2016-0 Yes 300mg QD Take 300 Me thodi (NEURONTIN) 8-[address] 300 MG 16:59: mouth [facility]ospita capsule 10 daily. l gabapentin 2016-0 Yes 600mg QD Take 600 Me th[facility] (NEURONTIN) 8-[address] 600 MG 16:59: mouth [facility]ospita tablet 10 nightly. l methocarbam 2016-0 Yes 750mg Q.5D Take 750 M ethodi ol 8-[address] (ROBAXIN) 16:59: mouth 2 Hospi ta 750 MG 10 (two) l tablet times a day. insulin NPH 2016-0 Yes 40U Q.5D Inject 40 M ethodi and regular 8-[address] human 16:59: under the Hospita (HumuLIN 10 skin 2 l 70/30) 100 (two) unit/mL times a (70-30) day with injection meals. Immunizations Ordered Immunization Filled Immunization Date Status Commen ts Source Name Name Feliz SARS-CoV-2 2020-08-12 Completed And tyrese Vaccination 00:00:00 Vital Signs Vital Name Observation Time Observation Value Comments Source HEIGHT 2021-04-12 22:00:00 147.3 cm WEIGHT 2021-04-12 22:00:00 57.153 kg HEIGHT 2021-04-12 16:10:00 147.3 cm WEIGHT 2021-04-12 16:10:00 56.7 kg HEIGHT 2021-04-12 22:00:00 147.3 cm WEIGHT 2021-04-12 22:00:00 57.153 kg HEIGHT 2021-04-12 16:10:00 147.3 cm WEIGHT 2021-04-12 16:10:00 56.7 kg HEIGHT 2021-04-11 11:40:00 148.8 cm WEIGHT 2021-04-11 11:40:00 56.7 kg HEIGHT 2021-04-11 08:02:00 148.8 cm WEIGHT 2021-04-11 08:02:00 56.745 kg HEIGHT 2021-03-23 20:05:00 147.3 cm WEIGHT 2021-03-23 20:05:00 57.607 kg HEIGHT 2021-03-23 13:34:00 147.3 cm WEIGHT 2021-03-23 13:34:00 58.06 kg HEIGHT 2021-03-23 20:05:00 147.3 cm WEIGHT 2021-03-23 20:05:00 57.607 kg HEIGHT 2021-03-23 13:34:00 147.3 cm WEIGHT 2021-03-23 13:34:00 58.06 kg WEIGHT 2021-03-23 11:41:00 58.151 kg HEIGHT 2021-03-07 17:18:00 147.3 cm WEIGHT 2021-03-07 17:18:00 58.968 kg HEIGHT 2021-03-07 17:18:00 147.3 cm WEIGHT 2021-03-07 17:18:00 58.968 kg WEIGHT 2021-02-07 15:41:00 58.605 kg HEIGHT 2020-12-21 14:23:00 147.3 cm WEIGHT 2020-12-21 14:23:00 57.153 kg HEIGHT 2020-12-21 14:23:00 147.3 cm WEIGHT 2020-12-21 14:23:00 57.153 kg HEIGHT 2020-12-20 10:37:00 147.3 cm WEIGHT 2020-12-20 10:37:00 57.153 kg HEIGHT 2020-12-20 10:37:00 147.3 cm WEIGHT 2020-12-20 10:37:00 57.153 kg Systolic (mm Hg) 2020-12-27 16:28:00 José Migueldaniel mendez García Diastolic (mm Hg) 2020-12-27 16:28:00 [facility] chandrakant García Heart Rate 2020-12-27 16:28:00 [facility] Respitory Rate 2020-12-27 16:28:00 Franciscogiovanna Swannann Height 2020-12-27 16:28:00 147.32 cm [facility] Weight 2020-12-27 16:28:00 [facility] BMI Calculated 2020-12-27 16:28:00 [facility] brendan Saltillo Systolic blood 2020 11:18:00 129 mm[Hg] [facility] Diastolic blood 2020 11:18:00 68 mm[Hg] [facility] Body temperature 2020 11:18:00 36.39 Mihaela [facility] Respiratory rate 2020 11:18:00 86 /min [facility] Oxygen saturation in 2020 11:18:00 99 /min [facility] - Arterial blood by Medical Ce nter Pulse oximetry Heart rate 2020 07:22:00 93 /min [facility] Body height 2020-12-21 14:23:00 147.3 cm [facility] Body weight 2020-12-21 14:23:00 57.153 kg [facility] BMI 2020-12-21 14:23:00 26.33 kg/m2 [facility] Systolic (mm Hg) 2020-11-15 15:02:00 José Migueldaniel mendez García Diastolic (mm Hg) 2020-11-15 15:02:00 Mem orial Saltillo Heart Rate 2020-11-15 15:02:00 [facility] Respitory Rate 2020-11-15 15:02:00 Mem[facility] al [facility] Height 2020-11-15 15:02:00 147.32 cm [facility] Weight 2020-11-15 15:02:00 [facility] BMI Calculated 2020-11-15 15:02:00 Memori al García Systolic (mm Hg) 2020-10-23 19:04:00 José Miguel rial Saltillo Diastolic (mm Hg) 2020-10-23 19:04:00 Mem o[facility] Heart Rate 2020-10-23 19:04:00 [facility] Height 2020-10-23 19:04:00 149.86 cm [facility] Weight 2020-10-23 19:04:00 [facility] BMI Calculated 2020-10-23 19:04:00 [facility] Height 2020-08-28 16:36:00 147.32 cm [facility] Weight 2020-08-28 16:36:00 [facility] BMI Calculated 2020-08-28 16:36:00 Memori al García Systolic (mm Hg) 2020-08-28 16:36:00 José Miguel rial Saltillo Diastolic (mm Hg) 2020-08-28 16:36:00 Mem orial García Heart Rate 2020-08-28 16:36:00 [facility] Systolic (mm Hg) 2020-08-23 19:19:00 José Migeul rial García Diastolic (mm Hg) 2020-08-23 19:19:00 Mem orial García Heart Rate 2020-08-23 19:19:00 [facility] Respitory Rate 2020-08-23 19:19:00 [facility]ori al [facility] Height 2020-08-23 19:19:00 147.32 cm [facility] Weight 2020-08-23 19:19:00 [facility] BMI Calculated 2020-08-23 19:19:00 Memori al [facility] Procedures Procedure Date / Time Performing Source Performed Clinician PREPARE LEUKO-REDUCED PLATELETS 2020 Marcelino Goyal [facility] - 23:54:00 [facility] PREPARE LEUKO-REDUCED RBC [address] [facility] - 14:17:00 [facility] CBC W/PLT COUNT & AUTO [address] [facility] - DIFFERENTIAL 05:50:00 [facility] COMPREHENSIVE METABOLIC PANEL [address] [facility] - 05:50:00 [facility] PROTHROMBIN TIME/INR [address] [facility] - 05:50:00 [facility] POCT-GLUCOSE METER 2020-12-[facility] - 21:16:00 [facility] POCT-GLUCOSE METER 2020-12-[address] [facility] [address] - 16:20:00 [facility] REPORT OF PROCEDURE - ENDOSCOPY 2020-12-[address] [facility] - URL 15:42:28 [facility] REPORT OF PROCEDURE - ENDOSCOPY 2020-12-[address] [facility] - URL 15:19:48 [facility] COLONOSCOPY 2020-12-[address] [facility] - 13:35:00 [facility] ESOPHAGOGASTRODUODENOSCOPY 2020-12-[address] [facility] - (EGD),REMOVAL FOREIGN BODY 13:35:00 [facility] TRANSFUSE LEUKO-REDUCED PLATELETS 2020-12-[address] [facility] - 12:42:33 [facility] TYPE AND SCREEN, AUTOMATED 2020-12-23 [facility] - 08:04:00 [facility] HEMOGLOBIN AND HEMATOCRIT 2020-12-[address] [facility] - 05:00:00 [facility] CBC W/PLT COUNT & AUTO 2020-12-[address] [facility] - DIFFERENTIAL 05:00:00 [facility] COMPREHENSIVE METABOLIC PANEL 2020-12-[address] [facility] - 05:00:00 [facility] PROTHROMBIN TIME/INR 2020-12-23 [facility] - 05:00:00 [facility] MAGNESIUM 2020-12-[address] [facility] - 05:00:00 [facility] HEMOGLOBIN AND HEMATOCRIT 2020-12-[address] [facility] - 18:17:00 [facility] POCT-GLUCOSE METER 2020-12-[address] [facility] - 05:27:00 [facility] SARS-COV2/RT-PCR ([facility]) 2020-12-[address] [facility] - 05:26:00 [facility] CBC W/PLT COUNT & AUTO 2020-12-22 Jose, [facility] - DIFFERENTIAL 03:59:00 [facility] BASIC METABOLIC PANEL (7) 2020-12-22 Jose[facility] - 03:59:00 [facility] HEPATIC FUNCTION PANEL 2020-12-22 Jose, [facility] - 03:59:00 [facility] PHOSPHORUS 2020-12-22 Jose[facility] - 03:59:00 [facility] MAGNESIUM 2020-12-22 Jose, [facility] - 03:59:00 [facility] POCT-GLUCOSE METER 2020-12-[address] [facility] - 01:12:00 [facility] LACTIC ACID, VENOUS 2020-12-[address] [facility] - 19:03:00 [facility] PROTHROMBIN TIME/INR 2020-12-[address] [facility] - 19:03:00 [facility] APTT 2020-12-[address] [facility] - 19:03:00 [facility] AMMONIA 2020-12-[address] [facility] - 19:03:00 [facility] BLOOD CULTURE 2020-12-[address] [facility] - 19:02:00 [facility] BASIC METABOLIC PANEL (7) 2020-12-21 [facility] - 15:52:00 [facility] HEPATIC FUNCTION PANEL 2020-12-[address] [facility] - 15:52:00 [facility] CBC W/PLT COUNT & AUTO 2020-12-[address] [facility] - DIFFERENTIAL 15:52:00 [facility] BASIC METABOLIC PANEL (7) 2020-12-20 Plaza, Line [facility] - 11:59:00 [facility] HEPATIC FUNCTION PANEL 2020-12-20 [facility] - 11:59:00 [facility] CBC W/PLT COUNT & AUTO 2020-12-20 [facility] - DIFFERENTIAL 11:59:00 [facility] PROTHROMBIN TIME/INR 2020-12-20 [facility] Line [facility] - 11:59:00 [facility] POCT-GLUCOSE METER 2020-12-13 [place] N[address]quinCourtney [facility] - 16:31:00 [facility] POCT-GLUCOSE METER 2020-12-[address] [facility] - 11:41:00 [facility] POCT-GLUCOSE METER 2020-12-[address] [facility] - 07:14:00 [facility] CALCIUM, IONIZED 2020-12-[address] [facility] - 03:35:00 [facility] COMPREHENSIVE METABOLIC PANEL 2020-12-[address] [facility] - 03:35:00 [facility] MAGNESIUM 2020-12-[address] [facility] - 03:35:00 [facility] PHOSPHORUS 2020-12-[address] [facility] - 03:35:00 [facility] CBC W/PLT COUNT & AUTO 2020-12-[address] [facility] - DIFFERENTIAL 03:35:00 [facility] POCT-GLUCOSE METER 2020-12-[address] [facility] - 22:16:00 [facility] POCT-GLUCOSE METER 2020-12-[address] [facility] - 16:51:00 [facility] HEMOGLOBIN AND HEMATOCRIT 2020-12-[address] [facility] - 15:58:00 [facility] POCT-GLUCOSE METER 2020-12-[address] [facility] - 11:39:00 [facility] POCT-GLUCOSE METER 2020-12-[address] [facility] - 08:06:00 [facility] CALCIUM, IONIZED 2020-12-[address] [facility] - 03:34:00 [facility] COMPREHENSIVE METABOLIC PANEL 2020-12-[address] [facility] - 03:34:00 [facility] MAGNESIUM 2020-12-[address] [facility] - 03:34:00 [facility] PHOSPHORUS 2020-12-[address] [facility] - 03:34:00 [facility] CBC W/PLT COUNT & AUTO 2020-12-[address] [facility] - DIFFERENTIAL 03:34:00 [facility] PREPARE LEUKO-REDUCED RBC 2020-12-[address] [facility] - 23:54:00 [facility] PREPARE LEUKO-REDUCED PLATELETS 2020-12-[address] [facility] - 23:54:00 [facility] POCT-GLUCOSE METER 2020-12-[address] [facility] - 21:46:00 [facility] HEMOGLOBIN AND HEMATOCRIT 2020-12-[address] [facility] - 18:15:00 [facility] POCT-GLUCOSE METER 2020-12-[address] [facility] - 17:50:00 [facility] HEPATITIS B E ANTIGEN 2020-12-[address] [facility] - 14:50:00 [facility] HEPATITIS B E ANTIBODY 2020-12-[address] [facility] - 14:49:00 [facility] HEPATITIS B SURFACE ANTIBODY 2020-12-[address] [facility] - 14:49:00 [facility] POCT-GLUCOSE METER 2020-12-[address] [facility] - 12:02:00 [facility] POCT-GLUCOSE METER 2020-12-[address] [facility] - 07:59:00 [facility] ACTIN (SMOOTH MUSCLE) ANTIBODY, 2020-12-[address] [facility] - IGG 05:11:00 [facility] ANTI-MITOCHONDRIAL AB, REFLEX TO 2020-12-[address] [facility] - TITER 05:11:00 [facility] CALCIUM, IONIZED 2020-12-[address] [facility] - 05:11:00 [facility] COMPREHENSIVE METABOLIC PANEL 2020-12-[address] [facility] - 05:11:00 [facility] MAGNESIUM 2020-12-[address] [facility] - 05:11:00 [facility] PHOSPHORUS 2020-12-[address] [facility] - 05:11:00 [facility] CBC W/PLT COUNT & AUTO 2020-12-[address] [facility] - DIFFERENTIAL 05:11:00 [facility] MITOCHONDRIAL AB SCREEN 2020-12-[address] [facility] - 05:11:00 [facility] MITOCHONDRIAL AB TITER 2020-12-[address] [facility] - 05:11:00 [facility] TRANSFUSE LEUKO-REDUCED PLATELETS 2020-12-[address] [facility] - 01:55:57 [facility] PREPARE LEUKO-REDUCED PLATELETS 2020-12-[address] [facility] - 23:54:00 [facility] HEMOGLOBIN AND HEMATOCRIT 2020-12-[address] [facility] - 23:37:00 [facility] POCT-GLUCOSE METER 2020-12-[address] [facility] - 21:39:00 [facility] POCT-GLUCOSE METER 2020-12-[address] [facility] - 16:25:00 [facility] REPORT OF PROCEDURE - ENDOSCOPY 2020-12-[address] [facility] - URL 16:01:18 [facility] UPPER ENDOSCOPY,BANDING 2020-12-[address] [facility] - 15:28:00 [facility] CBC W/PLT COUNT & AUTO 2020-12-[address] [facility] - DIFFERENTIAL 13:31:00 [facility] TRANSFUSE LEUKO-REDUCED RED BLOOD 2020-12-[address] [facility] - CELLS 13:23:55 [facility] POCT-GLUCOSE METER 2020-12-[address] [facility] - 11:33:00 [facility] POCT-GLUCOSE METER 2020-12-[address] [facility] - 07:09:00 [facility] PROTHROMBIN TIME/INR 2020-12-[address] [facility] - 05:12:00 [facility] COMPREHENSIVE METABOLIC PANEL 2020-12-[address] [facility] - 05:12:00 [facility] HEMOGLOBIN A1C 2020-12-[address] [facility] - 05:12:00 [facility] CALCIUM, IONIZED 2020-12-[address] [facility] - 05:12:00 [facility] MAGNESIUM 2020-12-[address] [facility] - 05:12:00 [facility] PHOSPHORUS 2020-12-[address] [facility] - 05:12:00 [facility] CBC W/PLT COUNT & AUTO 2020-12-[address] - DIFFERENTIAL 05:12:00 [facility] TRANSFUSE LEUKO-REDUCED PLATELETS 2020-12-[address] [facility] - 01:43:15 [facility] POCT-GLUCOSE METER 2020-12-[address] [facility] - 23:28:00 [facility] US ABDOMINAL WITH DOPPLER 2020-12-[address] [facility] - 23:15:00 [facility] ABORH, MANUAL 2020-12-[address] [facility] - 20:12:00 [facility] HEMOGLOBIN AND HEMATOCRIT 2020-12-09 [facility] - 19:09:00 [facility] TYPE AND SCREEN, AUTOMATED 2020-12-[address] [facility] - 19:01:00 [facility] BLOOD CULTURE 2020-12-09 Joesph, [facility] - 17:17:00 [facility] URINE CULTURE 2020-12-09 Joesph, Garryi [facility] - 17:13:00 [facility] URINALYSIS W/ REFLEX URINE CULTURE 2020-12-09 Joesph, [facility] - 17:13:00 [facility] AMMONIA 2020-12-09 Zindagus, Asha [facility] - 17:10:00 [facility] BLOOD CULTURE 2020-12-09 Joesph, Juan [facility] - 17:09:00 [facility] HC LAB HIV-1 AG W/HIV-1&2 AB 2020-12-09 Joesph, [facility] - 17:09:00 [facility] BTESC-0-ETUIYEHBLYO\, SERUM 2020-12-09 Joesph, [facility] - 17:09:00 [facility] ANTI-NUCLEAR ANTIBODY (AARON) 2020-12-09 Joesph, [facility] - 17:09:00 [facility] HEPATITIS A ANTIBODY, IGG 2020-12-09 Joesph, [facility] - 17:09:00 [facility] DRUG SCREEN, URINE, TRANSPLANT 2020-12-09 Joesph, Juan [facility] - 15:30:00 [facility] MISCELLANEOUS LAB ORDER 2020-12-09 Joesph, Juan [facility] - 15:22:00 [facility] CBC W/PLT COUNT & AUTO 2020-12-09 Odilia, Asha [facility] - DIFFERENTIAL 15:21:00 [facility] COMPREHENSIVE METABOLIC PANEL 2020-12-[address] [facility] - 15:21:00 [facility] HEPATITIS B CORE ANTIBODY, TOTAL 2020-12-09 Joesph, Juan [facility] - 15:21:00 [facility] HEPATITIS C PCR, QUANTITATIVE 2020-12-[address] [facility] - 15:21:00 [facility] HEPATITIS PANEL, ACUTE 2020-12-[address] [facility] - 15:21:00 [facility] HEPATITIS B PCR, QUANTITATIVE 2020-12-09 Joesph, Alisonfai [facility] - 15:21:00 [facility] CARCINOEMBRYONIC ANTIGEN (CEA) 2020-12-09 [address] [facility] - 15:21:00 [facility] CERULOPLASMIN 2020-12-09 Joesph, Tesfai [facility] - 15:21:00 [facility] COPPER 2020-12-09 Joesph, Tesfai [facility] - 15:21:00 [facility] FERRITIN 2020-12-09 Joesph, Tesfai [facility] - 15:21:00 [facility] ACETAMINOPHEN LEVEL 2020-12-09 Joesph, Tesfai [facility] - 15:21:00 [facility] ALPHA FETOPROTEIN (AFP), TUMOR 2020-12-09 [address] [facility] - MARKER 15:21:00 [facility] CARBOHYDRATE ANTIGEN 19-9 (CA 2020-12-09 Joesph, Tesfai [facility] - 19-9) 15:21:00 [facility] VITAMIN D, 25-HYDROXY 2020-12-09 Joesph, [facility]ryi [facility] - 15:21:00 [facility] ZINC 2020-12-09 Joesph, Tesfai [facility] - 15:21:00 [facility] IRON, TIBC, % SAT. (WITHOUT 2020-12-09 Joesph, Alisonfai [facility] - FERRITIN) 15:21:00 [facility] Arthroscopy [facility] section [facility] Plan of Care Planned Activity Planned Date Details Comments Source Future Scheduled 2030-12-[address] [facility] Test 00:00[facility]00 malignant ne[facility] colon (procedure) [code = 082586800] Future Scheduled 2021-01-31 INFLUENZA VACCINE (#1) [facility] Test 00:00:00 [code = INFLUENZA Medical Ce nter VACCINE (#1)] Future Scheduled 2020-10-[address] [facility] - Test 00:00:00 (procedure) [code = Medical Center 64407946] Future Scheduled 2020-09-30 Medicare IPPE (WELCOME C [...] Medica l Center cervix (procedure) [code = 477839281] Future Scheduled 1986-12-23 DTAP/TDAP/TD VACCINES [facility] I [...] es - Test 00:00:00 [facility] breast (procedure) [code = 670289692] Future Scheduled COVID-19 [facility]INE ([facility] [code = COVID-19 VACCINE (1)] Future Scheduled Screening for [facility] Test malignant neoplasm of cervix (procedure) [code = 173749346] Future Scheduled BREAST CANCER [facility] Test SCREENING [code = BREAST CANCER [...] Date/Time Type Type Clinicians Facility Department ID 2021-04-17 [facility] [id number] [facility] 09:20:49 [facility] 2021-04-02 Outpatient MARLENA FOREMAN [id number] [facility] 07:49:43 SP woods [facility] 2021-04-02 Emergency [facility] [id number] [facility] 02:23:15 ity of [facility] 2021-04-01 Emergency [facility] [id number] Univers 23:18:10 ity of [facility] 2021-04-01 Emergency [facility] [id number] Univers 19:20:57 ity of [facility] 2021-03-31 Emergency [facility] [id number] Univers 07:39:48 ity of [facility] 2021-03-31 Emergency [facility] [id number] Univers 06:08:00 ity [facility] 2021-03-11 Inpatient ER LUIS ENRIQUE [facility] Gastro [id number] [facility] 08:43:11 MERE 2020-12-09 Inpatient ER [facility] [id number] [facility] 13:19:00 LYNDSEY 2021-06-29 2021-06-29 Outpatient MHIE MHIE [id number] [facility] 15:00:00 15:00:00 12 l García 2021-04-12 2021-04-14 Outpatient ER EMY [facility] Emergency [id number] [facility] 17:00:00 13:56:00 URBAN 2021-04-12 2021-04-12 Outpatient [facility] [id number] [facility] 00:00:00 23:59:00 Mayte 2021-04-12 2021-04-12 Outpatient EL STEFANIE, [facility] [id number] [facility] 12:58:25 16:59:00 [facility] 2021-04-12 2021-04-12 Outpatient EL STEFANIE, [facility] [id number] [facility] 08:01:59 12:57:00 RISE 2021-04-12 2021-04-12 Outpatient EL STEFNAIE, [facility] [id number] [facility] 08:01:49 12:57:00 RISE 2021-04-12 2021-04-12 [id number] [facility] 08:01:39 12:57:00 RISE 2021-04-12 2021-04-12 [id number] [facility] 08:01:30 08:00:00 RISE 2021-04-11 2021-04-11 Outpatient EL STEFANIE, [facility] [id number] [facility] 12:47:22 23:59:00 RISE 2021-04-11 2021-04-11 Outpatient EL STEFANIE, [facility] [id number] [facility] 12:47:08 23:59:00 RISE 2021-04-11 2021-04-11 Outpatient EL DEE [facility] [id number] [facility] 11:37:08 11:37:08 ANNMARIE 2021-04-11 2021-04-11 Outpatient EL [facility] [id number] [facility] 11:19:24 11:19:24 2021-04-11 2021-04-11 Outpatient EL [facility] [id number] [facility] 07:15:14 07:15:14 2021-04-11 2021-04-11 Outpatient EL [facility] [id number] [facility] 07:14:55 07:14:55 2021-04-11 2021-04-11 Outpatient EL [facility] [id number] [facility] 07:14:31 07:14:31 2021-04-11 2021-04-11 Outpatient EL ELODIA HERNANDEZ [facility] [id number] [facility] 07:14:11 07:14:11 2021-04-11 2021-04-11 Outpatient EL [facility] [id number] [facility] 07:13:49 07:13:49 2021-04-11 2021-04-11 Outpatient EL STEFANIE, [facility] [id number] [facility] 00:00:00 00:00:00 RISE 2021-03-23 2021-03-25 Outpatient ER PRIYANKA, [facility] Emergency [id number] [facility] 13:26:00 11:59:00 BEV 2021-03-23 2021-03-23 Outpatient EL PRASHANTRACHEL, [facility] SLEH [id number] [facility] 11:33:16 11:33:16 ZAINAB 2021-03-07 2021-03-10 Inpatient ER ADAM, SLE Emergency [id number] [facility] 18:46:00 14:03:00 IGOR 2021-03-09 2021-03-09 Outpatient R LENIN, [facility] [id number] Univers 16:00:00 16[facility]00[facility]00 SP [id number] 2021-[facility] 2021-03-08 Outpatient EL [facility] [id number] SLE 00:00:00 00:00:00 2021-03-07 2021-03-07 Outpatient BCM [facility] [id number] [facility] 00:00:00 23:59:00 Elliot lofton of Medicin e 2021-03-07 2021-03-07 Outpatient EL SILVANO, [facility] [id number] SLE 12:14:44 18:45:00 ELODIA 2021-03-05 2021-03-05 Outpatient R [facility] [id number] [facility] 12:00:00 12:00:00 [id number] [facility] 2021-02-19 2021-02-19 [id number] 00:00:00 00:00:00 2021-02-14 2021-02-15 Between nullFlavo [facility] [id number] [facility] 18:53:37 18:53:37 Visit r Primary 03 l [facility] 2021-02-07 2021-02-07 [id number] 00:00:00 00:00:00 2021-01-30 2021-01-31 Between nullFlavo [facility] [id number] [facility] 21:46:37 21:46:37 Visit r Primary 02 l [facility] 2021-01-22 2021-01-23 Between nullFlavo [facility] [id number] [facility] 14:35:17 14:35:17 Visit r Primary 01 [facility] 2021-01-22 2021-01-23 Outpatient nullFlavo [facility] [id number] Memoria 21:00:00 04:59:59 r Primary 13 [facility] 2021-01-01 2021-01-03 Phone nullFlavo [facility] [id number] Memoria 17:46:17 04:59:59 Message r Primary 00 [facility] 2020-12-27 2020-12-28 Outpatient nullFlavo MNA [id number] Memoria 16:15:00 04:59:59 r Neurology 09 l Nela Mariano 2020-12-21 2020-12-21 Emergency ER [facility] Emergency [id number] SLE 14:14:00 14:14:00 2020-12-20 2020-12-21 Outpatient nullFlavo MNA [id number] Memoria 21:00:00 04:59:59 r Neurology 11 l eNla Mariano 2020-12-20 2020-12-20 Outpatient [facility] [id number] SLE 00:00:00 00:00:00 2020-12-08 2020-12-08 [facility] ICU [id number] [facility] 00:00:00 00:00:00 Encounter [facility] 2020-12-06 2020-12-07 Outpt Diag nullFlavo [facility] [id number] Memoria 22:19:00 04:59:00 Services r Outpatient 03 l Imaging [facility] 2020-12-06 2020-12-06 Ambulatory nullFlavo MNA [id number] Memoria 15:00:00 15:00:00 Pre-Reg r Neurology 10 l Nela García 2020-12-01 2020-12-01 [facility] [id number] 08:35:38 11:02:59 Visit Sp ARORA [id number] IAY [id number] [place] [id number] [facility] 2020-12-01 2020-12-01 Outpatient R [facility] [id number] Univers 08:45:00 08:45:00 [id number] 2020-12[facility]01 2020-12-01 Outpatient R [facility] [id number] Univers 08:45:00 08:45:00 [facility] 2020-11-15 2020-11-16 Outpatient nullFlavo MNA [id number] Memoria 14:30:00 04:59:59 r Neurology 08 l Nela Grigsbyann 2020-10-23 2020-10-24 Outpatient [facility] [id number] Memoria 19:00:00 04:59:59 r Primary 06 l [facility] 2020-10-18 2020-10-18 Ambulatory nullFlavo MNA [id number] Memoria 19:00:00 19:00:00 Pre-Reg r Neurology 07 l Nela Grigsbyann 2020-10-11 2020-10-11 Ambulatory nullFlavo MNA [id number] Memoria 19:15:00 19:15:00 Pre-Reg r Neurology 05 l Nela Grigsbyann 2020-09-06 2020-09-06 Ambulatory nullFlavo MNA [id number] Memoria 18:00:00 18:00:00 Pre-Reg r Neurology 04 l Nela Saltillo 2020-08-28 2020-08-29 Outpatient [facility] [id number] Memoria 16:30:00 04:59:59 r Primary 03 l [facility] 2020-08-26 2020-08-26 Outpatient [facility] [id number] Univers 00:00:00 00:00:00 [facility] 2020-08-23 2020-08-24 Outpatient nullFlavo MNA [id number] Memoria 19:15:00 04:59:59 r Neurology 02 l Nela Saltillo 2020-08-12 2020-08-12 Outpatient [facility] [id number] 12:07:04 12:07:04 Fred yoo 2020-07-27 2020-07-28 Outpatient [facility] [id number] Memoria 19:30:00 05:59:59 r Primary 01 l [facility] 2020-07-27 2020-07-27 Ambulatory [facility] [id number] Memoria 19:30:00 19:30:00 Pre-Reg r Primary 00 l [facility] 2019-07-16 2019-07-18 Outpatient Bronwyn [facility] [id number] Univers 13:36:00 12:15:00 VIC [facility] 2019-06-30 2019-07-04 Inpatient César INGRAM [facility] NO [id number] Univers 17:39:25 13:45:00 MARIVEL [facility] 2019-04-20 2019-04-21 Emergency X ELFEGO [facility] ERT [id number] Univers 19:26:38 00:10:00 NISHA [facility] 2019-02-14 2019-02-19 Inpatient X HASEEB MARTIN [facility] [place] [id number] Univers 13:52:02 12:14:00 [facility] 2019-01-21 2019-01-22 Outpatient X MITZI [facility] NO [id number] Univers 18:13:19 12:17:00 ISAAC [facility] 2018-09-05 2018-09-05 Emergency X GENESIS [facility] ERT [id number] Univers 15:33:18 23:07:00 STEVEN [facility] 2007-04-06 2007-04-06 Outpatient [facility] [id number] Univers 00:00:00 14:24:00 4 [facility] 2007-03-05 2007-03-05 Outpatient [facility] [id number] Univers 00:00:00 16:59:00 6 [facility] Results Test Description Test Time Test Comments Results Result Comments Source DRUG SCREEN, URINE, TRANSPLANT 2021-04-19 09:02:51 Test Item Value Reference Range Interpretation Comme nts SCAN RESULT (test code = 5607671) See scanned result See scanned resultMR, ABDOMEN, [id number] 14:20:00Unlisted Reason for Exam - Click Yes and Enter Reason Below->YesUnlisted Reason for Exam->cirrhosis [facility] A[facility]EN GLEASON : 1965 Sex: FFINAL REPORT TECHNIQUE: MRI of the abdomen WITHOUT and WITH intravenou s contrast. INDICATION: Unlisted Reason for Examcirrhosis. COMPARISON: CTs dating back to 01/14/2021FINDINGS: LOWER THORAX: Unremarkable. LIVER: Nodular, cirrhotic liver. There are a few scattered areas of arterial phase hyperenhancement the periphery of the liver. A couple of more rounded areas of arterial phase hyperenhancement the periphery of the liver measure up to 0.5 cm in segment on axialarterial phase image 57. LI-RADS 3. BILIARY: Sludge and/or stones in the gallbladder. The gallbladder wall is mildly thickened. The common bile duct is normal in diameter 0.5 cm. The common hepatic duct is dilated at 1.1 cm. No biliary ductal dilatation or filling defect.SPLEEN: 16.7 cm splenomegaly.PANCREAS: No focal masses or ductal dilatation. ADRENALS: No adrenal nodules.KIDNEYS/URETERS: No hydronephrosis or solid mass lesions. PERITONEUM/RETROPERITONEUM: Trace free fluid in the pelvis.LYMPH NODES: No lymphadenopathy. There are a few prominent left periaortic lymph nodes and what is likely a prominent celiac plexus in the left. The largest left retroperitoneal lymph node measures 0.9 cm and isunchanged from 03/07/2021 and 01/14/2021. VESSELS: The right hepatic artery originates directly from the celiac axis. The left hepatic artery originates from the common hepatic artery. The main portal vein is patent and measures 1.5 cm in diameter. Small esophageal varices. GI TRACT: No distention or wall thickening. BONES AND SOFT TISSUES: The compression deformity of the L1 vertebral body is unchanged. IMPRESSION: 1.No suspicious focal hepatic lesion. 2.A few arterially hyperenhancing observations without washout or pseudocapsule formation measure up to 0.5 cm. LI-RADS 3 3.Cirrhosis with sequelae of portal hypertension including splenomegaly and small esophageal varices 4.Sludge and/or stones in the gallbladder. The gallbladder wall thickening is nonspecific but most likely due to the portal hypertension. 5.The dilation of the common hepatic duct is similar to the CT from 01/14/2021. No definitedistal obstruction is seen. If the patient has an obstructive pattern of liver function tests, consider further evaluation with ERCP. Signed: Jesus Cormier MDReport Verified Date/Time: 04/18/2021 14:20:11 Reading Location: [facility] Diagnostic Imaging Reading Room - [place] [address] ELLANEOUS LAB [id number] 08:34:53 Test Item Value Reference Range Interpretation Comments SCAN RESULT (test code = see scanned result [id number]) see scanned resultPOCT-GLUCOSE [id number] 12:24:48 Test Item Value Reference Range Interpretation Comments POC-GLUCOSE METER 225 mg/dL 70-110 H : TESTED A T [facility] 6720 (BEAKER) (test code = [facility], 1538) [id number]: Shop Hand/Techni sanjeev ID = [id number] for KASSANDRA REGALADO POCT-GLUCOSE [id number] 07:31:47 Test Item Value Reference Range Interpretation Comments POC-GLUCOSE METER 254 mg/dL 70-110 H : TESTED A T [facility] 6720 (BEAKER) (test code = [facility], 1538) [id number]: Shop Hand/Techni sanjeev ID = [id number] for KASSANDRA REGALADO [id number] 05:54:17 Test Item Value Reference Range Interpretation Comments MAGNESIUM (BEAKER) (test code = 1.7 mg/dL 1.6-2.6 627) Shop Hand ID - ASTRID [id number] 05:54:17 Test Item Value Reference Range Interpretation Comments PHOSPHORUS (BEAKER) (test code = 3.3 mg/dL 2.3-4.7 604) Shop Hand ID - ASTRID GCOMPREHENSIVE METABOLIC [id number] 05:54:16 Test Item Value Reference Range Interpretation Comments TOTAL PROTEIN 6.6 gm/dL 6.0-8.3 (BEAKER) (test code = 770) ALBUMIN (BEAKER) 3.4 g/dL 3.5-5.0 L (test code = 1145) ALKALINE PHOSPHATASE 95 U/L 40-150 (BEAKER) (test code = 346) BILIRUBIN TOTAL 0.4 mg/dL 0.2-1.2 (BEAKER) (test code = 377) SODIUM (BEAKER) (test 137 meq/L 136-145 code = 381) POTASSIUM (BEAKER) 4.3 meq/L 3.5-5.1 (test code = 379) CHLORIDE (BEAKER) 107 meq/L 98-107 (test code = 382) CO2 (BEAKER) (test 20 meq/L 22-29 L code = 355) BLOOD UREA NITROGEN 14 mg/dL 7-21 (BEAKER) (test code = 354) CREATININE (BEAKER) 1.11 mg/dL 0.57-1.25 (test code = 358) GLUCOSE RANDOM 241 mg/dL 70-105 H (BEAKER) (test code = 652) CALCIUM (BEAKER) 8.6 mg/dL 8.4-10.2 (test code = 697) AST (SGOT) (BEAKER) 26 U/L 5-34 (test code = 353) ALT (SGPT) (BEAKER) 23 U/L 6-55 (test code = 347) EGFR (BEAKER) (test 51 mL/min/1.73 ESTIMA GABY GFR IS code = 1092) sq m NOT ACCURATE CREATININE CLEARANCE IN PREDICTING GLOMERULAR FILTRATION RATE . ESTIMATED GFR I S NOT APPLICABLE FOR DIALYSIS PATIEN TS. Shop Hand ID - ASTRID GPROTHROMBIN TIME/[id number] 05:24:25 Test Item Value Reference Range Interpretation Comments PROTIME (BEAKER) 15.5 seconds 11.9-14.2 H (test code = 759) INR (BEAKER) (test 1.25 See_Comment [Automat ed message] code = 370) The system [employer] generated this result transmitted ref erence range: <=5.90. The reference range was not used to int erpret this result as normal/abnormal . RECOMMENDED COUMADIN/WARFARIN INR THERAPY RANGESSTANDARD DOSE: 2.0 - 3.0 Includes: PROPHYLAXIS forvenous thrombosis, systemic embolization; TREATMENT for venous thrombosis and/or pulmonary embolus.HIGH RISK: Target INR is 2.5-3.5 for patients with mechanical heart valves.CBC W/PLT COUNT & AUTO DIFFERENTIAL 2021-04-14 05:13:34 Test Item Value Reference Range Interpretation Comments WHITE BLOOD CELL COUNT (BEAKER) 3.0 K/ L 3.5-10.5 L (test code = 775) RED BLOOD CELL COUNT (BEAKER) 3.52 M/ L 3.93-5.22 L (test code = 761) HEMOGLOBIN (BEAKER) (test code = 10.8 GM/DL 11.2-15.7 L 410) HEMATOCRIT (BEAKER) (test code = 33.1 % 34.1-44.9 L 411) MEAN CORPUSCULAR VOLUME (BEAKER) 94.0 fL 79.4-94.8 (test code = 753) MEAN CORPUSCULAR HEMOGLOBIN 30.7 pg 25.6-32.2 (BEAKER) (test code = 751) MEAN CORPUSCULAR HEMOGLOBIN CONC 32.6 GM/DL 32.2-35.5 (BEAKER) (test code = 752) RED CELL DISTRIBUTION WIDTH 15.0 % 11.7-14.4 H (BEAKER) (test code = 412) PLATELET COUNT (BEAKER) (test code 26 K/CU MM 150-450 L = 756) MEAN PLATELET VOLUME (BEAKER) 11.3 fL 9.4-12.3 (test code = 754) NUCLEATED RED BLOOD CELLS (BEAKER) 0 /100 WBC 0-0 (test code = 413) NEUTROPHILS RELATIVE PERCENT 55 % (BEAKER) (test code = 429) LYMPHOCYTES RELATIVE PERCENT 26 % (BEAKER) (test code = 430) MONOCYTES RELATIVE PERCENT 14 % (BEAKER) (test code = 431) EOSINOPHILS RELATIVE PERCENT 4 % (BEAKER) (test code = 432) BASOPHILS RELATIVE PERCENT 0 % (BEAKER) (test code = 437) NEUTROPHILS ABSOLUTE COUNT 1.67 K/ L 1.56-6.13 (BEAKER) (test code = 670) LYMPHOCYTES ABSOLUTE COUNT 0.78 K/ L 1.18-3.74 L (BEAKER) (test code = 414) MONOCYTES ABSOLUTE COUNT (BEAKER) 0.42 K/ L 0.24-0.36 H (test code = 415) EOSINOPHILS ABSOLUTE COUNT 0.13 K/ L 0.04-0.36 (BEAKER) (test code = 416) BASOPHILS ABSOLUTE COUNT (BEAKER) 0.01 K/ L 0.01-0.08 (test code = 417) IMMATURE GRANULOCYTES-RELATIVE 0 % 0-1 PERCENT (BEAKER) (test code = 2802) POCT-GLUCOSE [id number] 20:54:45 Test Item Value Reference Range Interpretation Comments POC-GLUCOSE METER 369 mg/dL 70-110 H : TESTED A T [facility] 6720 (BEAKER) (test code = [facility], 1538) [id number]: Shop Hand/Techni sanjeev ID = [id number] for Co Niki salter POCT-GLUCOSE [id number] 17:44:33 Test Item Value Reference Range Interpretation Comments POC-GLUCOSE METER 73 mg/dL 70-110 : TESTED A T [facility] 6720 (BEAKER) (test code = [facility], 1538) 82276: Shop Hand/Techni sanjeev ID = [id number] for FAIT Chalo QUETA POCT-GLUCOSE [id number] 12:23:38 Test Item Value Reference Range Interpretation Comments POC-GLUCOSE METER 175 mg/dL 70-110 H : TESTED A T [facility] 6720 (BEAKER) (test code = [facility], 1538) [id number]: Shop Hand/Techni sanjeev ID = [id number] for FA HANK QUETA POCT-GLUCOSE [id number] 08:14:03 Test Item Value Reference Range Interpretation Comments POC-GLUCOSE METER 173 mg/dL 70-110 H : TESTED A T [facility] 6720 (BEAKER) (test code = [facility], 1538) [id number]: Shop Hand/Techni sanjeev ID = [id number] for FA HANK, QUETA COMPREHENSIVE METABOLIC [id number] 04:34:04 Test Item Value Reference Range Interpretation Comments TOTAL PROTEIN 7.0 gm/dL 6.0-8.3 Specimen sligh tly (BEAKER) (test code = hemoly zed 770) ALBUMIN (BEAKER) 3.6 g/dL 3.5-5.0 Specimen sl ightly (test code = 1145) hemolyzed ALKALINE PHOSPHATASE 91 U/L 40-150 (BEAKER) (test code = 346) BILIRUBIN TOTAL 0.6 mg/dL 0.2-1.2 Specimen sli ghtly (BEAKER) (test code = hemoly zed 377) SODIUM (BEAKER) (test 135 meq/L 136-145 L code = 381) POTASSIUM (BEAKER) 5.1 meq/L 3.5-5.1 Specimen slightly (test code = 379) hemolyzed CHLORIDE (BEAKER) 106 meq/L 98-107 (test code = 382) CO2 (BEAKER) (test 20 meq/L 22-29 L code = 355) BLOOD UREA NITROGEN 13 mg/dL 7-21 (BEAKER) (test code = 354) CREATININE (BEAKER) 1.06 mg/dL 0.57-1.25 Specimen slightly (test code = 358) hemolyzed GLUCOSE RANDOM 208 mg/dL 70-105 H (BEAKER) (test code = 652) CALCIUM (BEAKER) 9.4 mg/dL 8.4-10.2 (test code = 697) AST (SGOT) (BEAKER) 32 U/L 5-34 Specimen slightly (test code = 353) hemolyzed ALT (SGPT) (BEAKER) 27 U/L 6-55 Specimen slightly (test code = 347) hemolyzed EGFR (BEAKER) (test 54 mL/min/1.73 ESTIMA GABY GFR IS code = 1092) sq m NOT ACCURATE CREATININE CLEARANCE IN PREDICTING GLOMERULAR FILTRATION RATE . ESTIMATED GFR I S NOT APPLICABLE FOR DIALYSIS PATIEN TS. Shop Hand ID - ASTRID [id number] 04:34:03 Test Item Value Reference Range Interpretation Comments MAGNESIUM (BEAKER) 1.7 mg/dL 1.6-2.6 Specimen slightly (test code = 627) hemolyzed Shop Hand ID - ASTRID [id number] 04:34:03 Test Item Value Reference Range Interpretation Comments PHOSPHORUS (BEAKER) 4.3 mg/dL 2.3-4.7 Specimen slightly (test code = 604) hemolyzed Shop Hand ID - ASTRID GPROTHROMBIN TIME/[id number] 04:23:20 Test Item Value Reference Range Interpretation Comments PROTIME (BEAKER) 14.9 seconds 11.9-14.2 H (test code = 759) INR (BEAKER) (test 1.18 See_Comment [Automat ed message] code = 370) The system [employer] generated this result transmitted ref erence range: <=5.90. The reference range was not used to int erpret this result as normal/abnormal . RECOMMENDED COUMADIN/WARFARIN INR THERAPY RANGESSTANDARD DOSE: 2.0 - 3.0 Includes: PROPHYLAXIS forvenous thrombosis, systemic embolization; TREATMENT for venous thrombosis and/or pulmonary embolus.HIGH RISK: Target INR is 2.5-3.5 for patients with mechanical heart valves.CBC W/PLT COUNT & AUTO DIFFERENTIAL 2021-04-13 04:08:50 Test Item Value Reference Range Interpretation Comments WHITE BLOOD CELL COUNT (BEAKER) 3.2 K/ L 3.5-10.5 L (test code = 775) RED BLOOD CELL COUNT (BEAKER) 3.62 M/ L 3.93-5.22 L (test code = 761) HEMOGLOBIN (BEAKER) (test code = 11.2 GM/DL 11.2-15.7 410) HEMATOCRIT (BEAKER) (test code = 33.9 % 34.1-44.9 L 411) MEAN CORPUSCULAR VOLUME (BEAKER) 93.6 fL 79.4-94.8 (test code = 753) MEAN CORPUSCULAR HEMOGLOBIN 30.9 pg 25.6-32.2 (BEAKER) (test code = 751) MEAN CORPUSCULAR HEMOGLOBIN CONC 33.0 GM/DL 32.2-35.5 (BEAKER) (test code = 752) RED CELL DISTRIBUTION WIDTH 15.0 % 11.7-14.4 H (BEAKER) (test code = 412) PLATELET COUNT (BEAKER) (test code 35 K/CU MM 150-450 L = 756) MEAN PLATELET VOLUME (BEAKER) 11.9 fL 9.4-12.3 (test code = 754) NUCLEATED RED BLOOD CELLS (BEAKER) 0 /100 WBC 0-0 (test code = 413) NEUTROPHILS RELATIVE PERCENT 62 % (BEAKER) (test code = 429) LYMPHOCYTES RELATIVE PERCENT 22 % (BEAKER) (test code = 430) MONOCYTES RELATIVE PERCENT 11 % (BEAKER) (test code = 431) EOSINOPHILS RELATIVE PERCENT 4 % (BEAKER) (test code = 432) BASOPHILS RELATIVE PERCENT 0 % (BEAKER) (test code = 437) NEUTROPHILS ABSOLUTE COUNT 2.00 K/ L 1.56-6.13 (BEAKER) (test code = 670) LYMPHOCYTES ABSOLUTE COUNT 0.72 K/ L 1.18-3.74 L (BEAKER) (test code = 414) MONOCYTES ABSOLUTE COUNT (BEAKER) 0.36 K/ L 0.24-0.36 (test code = 415) EOSINOPHILS ABSOLUTE COUNT 0.14 K/ L 0.04-0.36 (BEAKER) (test code = 416) BASOPHILS ABSOLUTE COUNT (BEAKER) 0.01 K/ L 0.01-0.08 (test code = 417) IMMATURE GRANULOCYTES-RELATIVE 0 % 0-1 PERCENT (BEAKER) (test code = 2801) POCT-GLUCOSE [id number] 22:28:39 Test Item Value Reference Range Interpretation Comments POC-GLUCOSE METER 133 mg/dL 70-110 H : TESTED A T [facility] 6720 (BEAKER) (test code = MIC[facility] [place], 1538) 46996: Shop Hand/Techni sanjeev ID = [id number] for CA ANGELINA BLACKBURN SARS-COV2/RT-PCR ([facility])2021-04-12 21:36:05 Test Item Value Reference Range Interpretation Comments SARS-COV2/RT-PCR Negative Negative The SARS-Co V-2 target (test code = nucleic acids a re not [id number]) detected in thi s specimen. Negative result s do not preclude SARS-C oV-2 infection and s hould not be used as the dinora e basis for patient managem ent decisions. Nega tive results must be combine d with clinical observ ations, patient history , and epidemiological information. A false negativ e result may occur if a spec imen is improperly ha ected, transported or handled. This SARS CoV-2 test is a rapid, real-sukhdev e RT-PCR test intended for th e qualitative detection of nu cleic acid from SARS-CoV-2 in a nasopharyngeal swab specimen collected from individuals suspected of CO VID-19 by their healthcar e provider. This test has been authorized by FDA under an EUA for use by authorized laboratories. This test is only authorized for the duration of the declaration that circumstances exist justifying the authorization of emergency use of in vitro diagnostic tests for detection and/or diagnosis of COVID-19 under Section 564(b)(1) of the Federal Food, Drug and Cosmetic Act, 21 U.S.C. 360bbb- 3(b)(1), unless the authorization is terminated or revoked sooner. Fact Sheet for Healthcare Providers: https://www.[employer].com/Documents/Xpert%20Xpress%20SARS%20CoV-2/Fact%20Sheets/302-3802%20SARS-COV -2%20HEALTHCARE%20PROVIDERS%20FACT%20SHEET.pdf Fact Sheet for Healthcare Patients: https://www.[employer]!/Documents/Xpert %20Xpress%20SARS%20CoV-2/Fact%20Sheets/302-3801%64UJXX-JRX-3%20PATIENT%20FACT%20 SHEET.pdfCOMPREHENSIVE METABOLIC [id number] 18:32:37 Test Item Value Reference Range Interpretation Comments TOTAL PROTEIN 7.3 gm/dL 6.0-8.3 Specimen sligh tly (BEAKER) (test code = hemoly zed 770) ALBUMIN (BEAKER) 3.8 g/dL 3.5-5.0 Specimen sl ightly (test code = 1145) hemolyzed ALKALINE PHOSPHATASE 98 U/L 40-150 (BEAKER) (test code = 346) BILIRUBIN TOTAL 0.7 mg/dL 0.2-1.2 Specimen sli ghtly (BEAKER) (test code = hemoly zed 377) SODIUM (BEAKER) (test 139 meq/L 136-145 code = 381) POTASSIUM (BEAKER) 3.8 meq/L 3.5-5.1 Specimen slightly (test code = 379) hemolyzed CHLORIDE (BEAKER) 109 meq/L 98-107 H (test code = 382) CO2 (BEAKER) (test 18 meq/L 22-29 L code = 355) BLOOD UREA NITROGEN 13 mg/dL 7-21 (BEAKER) (test code = 354) CREATININE (BEAKER) 0.99 mg/dL 0.57-1.25 Specimen slightly (test code = 358) hemolyzed GLUCOSE RANDOM 142 mg/dL 70-105 H (BEAKER) (test code = 652) CALCIUM (BEAKER) 10.0 mg/dL 8.4-10.2 (test code = 697) AST (SGOT) (BEAKER) 33 U/L 5-34 Specimen slightly (test code = 353) hemolyzed ALT (SGPT) (BEAKER) 30 U/L 6-55 Specimen slightly (test code = 347) hemolyzed EGFR (BEAKER) (test 59 mL/min/1.73 ESTIMA GABY GFR IS code = 1092) sq m NOT ACCURATE CREATININE CLEARANCE IN PREDICTING GLOMERULAR FILTRATION RATE . ESTIMATED GFR I S NOT APPLICABLE FOR DIALYSIS PATIEN TS. Shop Hand ID - DBOperator ID - DBHIGH SENSITIVITY TROPONIN [id number] 18:25:54 Test Item Value Reference Range Interpretation Comments HIGH SENSITIVITY < pg/ml See_Comment [Automated message] TROPONIN I (test code = The system which [id number]) generated this result transmitted ref erence range: <=17. Th e reference range was not used to interpr et this result as normal/abnormal . Shop Hand ID - DBThe CIRCULAR KNITTER HELPER STAT High Sensitivity Troponin-I results should be used in conjunctionwith other diagnostic information such as ECG, clinical observations and information, and patient symptoms to aid in the diagnosis of [place].[id number] 18:21:14 Test Item Value Reference Range Interpretation Comments LIPASE (BEAKER) (test code = 749) 102 U/L 8-78 H Shop Hand ID - DBPROTHROMBIN TIME/[id number] 18:16:11 Test Item Value Reference Range Interpretation Comments PROTIME (BEAKER) 15.2 seconds 11.9-14.2 H (test code = 759) INR (BEAKER) (test 1.22 See_Comment [Automat ed message] code = 370) The system whic h generated this result [...] heart valves.CBC W/PLT COUNT & AUTO DIFFERENTIAL 2021-04-12 18:02:09 Test Item Value Reference Range Interpretation Comments WHITE BLOOD CELL COUNT (BEAKER) 5.2 K/ L 3.5-10.5 (test code = 775) RED BLOOD CELL COUNT (BEAKER) 3.95 M/ L 3.93-5.22 (test code = 761) HEMOGLOBIN (BEAKER) (test code = 11.8 GM/DL 11.2-15.7 410) HEMATOCRIT (BEAKER) (test code = 36.2 % 34.1-44.9 411) MEAN CORPUSCULAR VOLUME (BEAKER) 91.6 fL 79.4-94.8 (test code = 753) MEAN CORPUSCULAR HEMOGLOBIN 29.9 pg 25.6-32.2 (BEAKER) (test code = 751) MEAN CORPUSCULAR HEMOGLOBIN CONC 32.6 GM/DL 32.2-35.5 (BEAKER) (test code = 752) RED CELL DISTRIBUTION WIDTH 15.1 % 11.7-14.4 H (BEAKER) (test code = 412) PLATELET COUNT (BEAKER) (test code 40 K/CU MM 150-450 L = 756) MEAN PLATELET VOLUME (BEAKER) 11.8 fL 9.4-12.3 (test code = 754) NUCLEATED RED BLOOD CELLS (BEAKER) 0 /100 WBC 0-0 (test code = 413) NEUTROPHILS RELATIVE PERCENT 63 % (BEAKER) (test code = 429) LYMPHOCYTES RELATIVE PERCENT 20 % (BEAKER) (test code = 430) MONOCYTES RELATIVE PERCENT 13 % (BEAKER) (test code = 431) EOSINOPHILS RELATIVE PERCENT 4 % (BEAKER) (test code = 432) BASOPHILS RELATIVE PERCENT 0 % (BEAKER) (test code = 437) NEUTROPHILS ABSOLUTE COUNT 3.26 K/ L 1.56-6.13 (BEAKER) (test code = 670) LYMPHOCYTES ABSOLUTE COUNT 1.04 K/ L 1.18-3.74 L (BEAKER) (test code = 414) MONOCYTES ABSOLUTE COUNT (BEAKER) 0.65 K/ L 0.24-0.36 H (test code = 415) EOSINOPHILS ABSOLUTE COUNT 0.22 K/ L 0.04-0.36 (BEAKER) (test code = 416) BASOPHILS ABSOLUTE COUNT (BEAKER) 0.02 K/ L 0.01-0.08 (test code = 417) IMMATURE GRANULOCYTES-RELATIVE 0 % 0-1 PERCENT (BEAKER) (test code = 2801) [facility], MULTI, PHARM, [id number] 16:04:00Unlisted Reason for Exam - Click Yes and Enter Reason Below->YesUnlisted Reason for Exam->[facility]iver [facility] AYLEEN GLEASON : 1965 Sex: FFINAL REPORT PROCEDURE: MYOCARDIAL PERFUSION SPECT IMAGING (Rest/Stres s)CPT CODE: 34582 INDICATION: Cardiac evaluation prior to liver transplant CARDIOVASCULAR PROFILE:CAD History: NoneRisk Factors: Diabetes, hyperlipidemiaBMI: 25.6Medications: propanolol STRESS PROTOCOL:Pharmacologic stress was achieved with a 10-second intravenous infusion of regadenoson 0.4 mg. The radiopharmaceutical was administered 30 seconds after the start of the regadenoson infusion. IMAGING PROTOCOL:10.5 mCi of Tc-99m sestamibi was injected intravenously at rest, and non-gated SPECT images were obtained. Then, 32.4 mCi of Tc-99m sestamibi was injected intravenously at peak stress, and gatedSPECT images were obtained. REST FINDINGS:HR: 66/minBP: 158/80 mmHgPrelim. EKG: Normal sinus rhythm.Perfusion: Normal. STRESS FINDINGS:HR: 94/min (56% of MPHR)BP: 153/77 mmHgPrelim. EKG: No ischemic changes.Symptoms: Nausea, shortness of breath (treated with aminophylline 125 mg IV).Perfusion: Normal.Wall Motion: Normal (LVEF 70%).LV Volume:Normal IMPRESSION:1. Normal study.2. Normal myocardial perfusion. 3. Normal LVEF with rest4. Normal extracardiac tracer distribution.5. There is no prior study for comparison. Signed: Ricky Hendrix MDReport Verified Date/Time: 04/12/2021 16:04:45 Reading Location: [address] Reading [facility] [id number] 10:43:26 Test Item Value Reference Range Interpretation Comments T3 TOTAL (BEAKER) (test code = 0.94 ng/mL 0.60-1.81 656) Shop Hand ID - [id number] 14:22:58 Test Item Value Reference Range Interpretation Comments RPR SCREEN (BEAKER) (test code = Nonreactive Nonreactive 420) CRYPTOCOCCAL [id number] 14:21:41 Test Item Value Reference Range Interpretation Comments CRYPTOCOCCAL ANTIGEN, SERUM Negative Negative, Interference (BEAKER) (test code = 1828) RAD, MANDIBLE, MIN 4 [id number] 13:53:00Reason for Exam:->[facility] 1965 Sex: FFINAL REPORT MANDIBLE 5 VIEWS HISTORY: Liver transplant evaluation COM PARISON: No comparison mandibular imaging FINDINGS: Mitul, PA, bilateral oblique, and lateral images of the mandible were obtained. No mandibular fracture is visualized. No bony destruction is visualized in the mandible. No periapical abscess or dental caries are visualized in the mandible. No mandibu lar molars are present. No air-fluid levels are visualized in the paranasal sinuses. Asymmetric opacity overlying the left maxillary antrum relative to the right on the Mitul view, nonspecific and possibly just due to overlying soft tissues. Signed: Urban Aparicio MDReport Verified Date/Time: 04/11/2021 13:53:12 Reading Location: [facility] Radiology Reading Room RUBELLA ANTIBODY, [id number] 13:46:29 Test Item Value Reference Range Interpretation Comments RUBELLA IGG QUANTITATION (BEAKER) 53.0 IU/mL <8.0 H (test code = 572) Rubella IgG Result Interpretation: </= 7.0 IU/mL Negative - Presumed non- immune 8.0 - 9.9 IU/mL Equivocal >= 10.0 IU/mL Positive - Presumed immune VARICELLA ZOSTER ANTIBODY, [id number] 13:46:29 Test Item Value Reference Range Interpretation Comments VARICELLA ZOSTER IGG (AL) (BEAKER) 5.6 (test code = 3197) VARICELLA ZOSTER RESULT INTERPRETATIONS: <=0.8 Al Nonreactive: Presumed non-immune to VZV 0.9-1.0 Al Equivocal >=1.1 Al Reactive: Presumed immune to VZVCYTOMEGALOVIRUS ANTIBODY, [id number] 13:46:22 Test Item Value Reference Range Interpretation Comments CYTOMEGALOVIRUS, IGG (BEAKER) Positive Negative, Equivocal A (test code = 3429) CMV IgG Result Interpretation: </= 0.8 Al Negative 0.9-1.0 Al Equivocal >/=1.1 Al PositiveEBV ANTIBODY, [id number] 13:46:22 Test Item Value Reference Range Interpretation Comments SHAYY LAMAS VIRAL CAPSID Positive Negative, Equivocal A ANTIGEN IGG (BEAKER) (test code = 3415) Shayy Lamas Viral Capsid Antigen IgG Result Interpretation: </= 0.8 Al Negative 0.9-1.0 Al Equivocal >/= 1.1 Al PositiveEBV ANTIBODY, IGM 2021-04-11 13:46:22 Test Item Value Reference Range Interpretation Comments SHAYY LAMAS VIRAL CAPSID Negative Negative, Equivocal ANTIGEN IGM (BEAKER) (test code = 3418) Shayy Lamas Viral Capsid Antigen IgM Result Interpretation: </= 0.8 Al Negative 0.9-1.0 Al Equivocal >/= 1.1 Al PositiveRAD, CHEST, 2 VIEWS 2021-04-11 13:37:00Reason for Exam:->[facility] 1965 Sex: FFINAL REPORT HISTORY: Liver transplant evaluation COMPARISON: Danna frankel reformatted images of the lumbar spine and lower thoracic spine from a CT abdomen and pelvis of 03/07/2021 FINDINGS: The lungs are clear. No pleural effusions or pneumothorax. The heart shadow is normal in size. The thoracic aorta is normal caliber. Severe chronic L1 compression fracture. Mild to mod erate T4 compression fracture. No comparison thoracic spine imaging is available to determine the acuity of this. IMPRESSION: 1. No evidence of acute cardiopulmonary disease. 2. T4 and L1 compression fractures. Signed: Urban Aparicio MDReport Verified Date/Time: 04/11/2021 13:37:16 Reading Location: [facility] Radiology Reading Room BLOOD GAS, [id number] 11:39:39 Test Item Value Reference Range Interpretation Comments PH ARTERIAL (BEAKER) (test code = 7.40 7.35-7.45 383) PCO2 ARTERIAL (BEAKER) (test code 41 mm Hg 35-45 = 384) PO2 ARTERIAL (BEAKER) (test code = 47 mm Hg 80-90 L 385) O2 SATURATION ARTERIAL (BEAKER) 83.1 % 96.0-97.0 L (test code = 386) HCO3 ARTERIAL (BEAKER) (test code 25 mmol/L 21-29 = 388) BASE EXCESS ARTERIAL (BEAKER) 0.0 mmol/L -2.0-3.0 (test code = 387) PATIENT TEMPERATURE (BEAKER) (test 37.0 code = 1818) FIO2 (BEAKER) (test code = 1819) 21.0 VITAMIN D, [id number] 10:29:34 Test Item Value Reference Range Interpretation Comments VITAMIN D 25-OH (BEAKER) (test 13.1 ng/mL 6.6-49.9 code = 2764) Effective 03/12/2017: Reference Range ChangeNew: 6.6-49.9 ng/mL Previous: 13.0-47.8 ng/mLRecommended Vitamin D Target Range: 30.0-40.0 ng/mLOperator ID - DENA LHEMOGLOBIN [id number] 10:20:10 Test Item Value Reference Range Interpretation Comments HEMOGLOBIN A1C (BEAKER) (test code = 6.7 % 4.3-6.1 H 368) CARCINOEMBRYONIC ANTIGEN (CEA)2021-04-11 10:03:38 Test Item Value Reference Range Interpretation Comments CARCINOEMBRYONIC ANTIGEN (BEAKER) 14.5 ng/mL 0.0-5.0 H (test code = 685) Shop Hand ID - DENA LALPHA FETOPROTEIN (AFP), TUMOR [id number] 10:03:38 Test Item Value Reference Range Interpretation Comments ALPHA-FETOPROTEIN (BEAKER) (test 5.4 ng/mL <10.0 code = 1094) Shop Hand ID - DENA LURINALYSIS W/ [id number] 09:49:36 Test Item Value Reference Range Interpretation Comments COLOR (BEAKER) (test code = 470) Yellow CLARITY (BEAKER) (test code = 469) Clear SPECIFIC GRAVITY UA (BEAKER) (test 1.022 1.001-1.035 code = 468) PH UA (BEAKER) (test code = 467) 5.5 5.0-8.0 PROTEIN UA (BEAKER) (test code = 20 mg/dL Negative A 464) GLUCOSE UA (BEAKER) (test code = Negative Negative 365) KETONES UA (BEAKER) (test code = Negative Negative 371) BILIRUBIN UA (BEAKER) (test code = Negative Negative 462) BLOOD UA (BEAKER) (test code = 461) Trace Negative A NITRITE UA (BEAKER) (test code = Negative Negative 465) LEUKOCYTE ESTERASE UA (BEAKER) Negative Negative (test code = 466) UROBILINOGEN UA (BEAKER) (test code 0.2 mg/dL 0.2-1.0 = 463) RBC UA (BEAKER) (test code = 519) 0 /HPF WBC UA (BEAKER) (test code = 520) 2 /HPF BACTERIA (BEAKER) (test code = 517) None Seen MUCUS (BEAKER) (test code = 1574) Rare SQUAMOUS EPITHELIAL (BEAKER) (test 5 /HPF code = 516) HYALINE CASTS (BEAKER) (test code = 2 /LPF 514) CRYSTALS, URINE (BEAKER) (test code None Seen = 1521) SOURCE(BEAKER) (test code = 2795) Shop Hand ID - [auto]Shop Hand ID - [id number] 09:08:39 Test Item Value Reference Range Interpretation Comments T4 TOTAL (BEAKER) (test code = 895) 5.9 ug/dL 4.9-11.7 Shop Hand ID - DENA [id number] 09:08:39 Test Item Value Reference Range Interpretation Comments THYROID STIMULATING HORMONE 2.023 uIU/mL 0.350-4.940 (BEAKER) (test code = 772) Shop Hand ID - DENA LPREGNANCY SCREEN, [id number] 08:59:02 Test Item Value Reference Range Interpretation Comments TEST URINE (BEAKER) (test Negative code = 583) [id number] 08:53:55 Test Item Value Reference Range Interpretation Comments TRANSFERRIN (BEAKER) (test code = 248 mg/dL 174-382 541) Shop Hand ID - DENA LBILIRUBIN, [id number] 08:50:00 Test Item Value Reference Range Interpretation Comments BILIRUBIN DIRECT (BEAKER) (test 0.3 mg/dL 0.1-0.5 code = 706) Shop Hand ID - DENA LGAMMA GLUTAMYL TRANSFERASE (GGT)2021-04-11 08:50:00 Test Item Value Reference Range Interpretation Comments GAMMA GLUTAMYL TRANSFERASE (BEAKER) 106 U/L 9-64 H (test code = 364) Shop Hand ID - DENA LURIC [id number] 08:49:55 Test Item Value Reference Range Interpretation Comments URIC ACID (BEAKER) (test code = 3.6 mg/dL 2.6-7.2 773) Shop Hand ID - PICRISTINA LLIPID [id number] 08:49:55 Test Item Value Reference Range Interpretation Comments TRIGLYCERIDES (BEAKER) (test code = 148 mg/dL 540) CHOLESTEROL (BEAKER) (test code = 173 mg/dL 631) HDL CHOLESTEROL (BEAKER) (test code 43 mg/dL = 976) LDL CHOLESTEROL CALCULATED (BEAKER) 100 mg/dL (test code = 633) Triglyceride Reference Range: Low Risk <150 Borderline 150-199 High Risk 200-499 Very High Risk >=500Cholesterol Reference Range: Low Risk <200 Borderline 200-239 High Risk >240HDL Cholesterol Reference Range: Low Risk >=60 High Risk <40LDL Cholesterol Reference Range: Optimal <100 Near Optimal 100-129 Borderline 130-159 High 160-189 Very High >=190 Shop Hand ID - PIAYALCOMPREHENSIVE METABOLIC [id number] 08:49:54 Test Item Value Reference Range Interpretation Comments TOTAL PROTEIN 7.2 gm/dL 6.0-8.3 (BEAKER) (test code = 770) ALBUMIN (BEAKER) 3.8 g/dL 3.5-5.0 (test code = 1145) ALKALINE PHOSPHATASE 109 U/L 40-150 (BEAKER) (test code = 346) BILIRUBIN TOTAL 0.8 mg/dL 0.2-1.2 (BEAKER) (test code = 377) SODIUM (BEAKER) (test 138 meq/L 136-145 code = 381) POTASSIUM (BEAKER) 4.0 meq/L 3.5-5.1 (test code = 379) CHLORIDE (BEAKER) 107 meq/L 98-107 (test code = 382) CO2 (BEAKER) (test 22 meq/L 22-29 code = 355) BLOOD UREA NITROGEN 15 mg/dL 7-21 (BEAKER) (test code = 354) CREATININE (BEAKER) 0.94 mg/dL 0.57-1.25 (test code = 358) GLUCOSE RANDOM 158 mg/dL 70-105 H (BEAKER) (test code = 652) CALCIUM (BEAKER) 9.7 mg/dL 8.4-10.2 (test code = 697) AST (SGOT) (BEAKER) 40 U/L 5-34 H (test code = 353) ALT (SGPT) (BEAKER) 35 U/L 6-55 (test code = 347) EGFR (BEAKER) (test 62 mL/min/1.73 ESTIMA GABY GFR IS code = 1092) sq m NOT ACCURATE CREATININE CLEARANCE IN PREDICTING GLOMERULAR FILTRATION RATE . ESTIMATED GFR I S NOT APPLICABLE FOR DIALYSIS PATIEN TS. Shop Hand ID - PIAYA [id number] 08:49:54 Test Item Value Reference Range Interpretation Comments MAGNESIUM (BEAKER) (test code = 1.8 mg/dL 1.6-2.6 627) Shop Hand ID - DENA [id number] 08:44:52 Test Item Value Reference Range Interpretation Comments ETHANOL (BEAKER) < mg/dL See_Comment [Automated message] The (test code = 400) system [employer] generated this result tra nsmitted reference range : <=10. The reference r mago was not used to int erpret this result as normal/abnormal . Shop Hand ID - DENA [id number] 08:32:06 Test Item Value Reference Range Interpretation Comments FIBRINOGEN LEVEL (BEAKER) (test 265 mg/dl 225-434 code = 658) [id number] 08:32:06 Test Item Value Reference Range Interpretation Comments PARTIAL THROMBOPLASTIN TIME 29.0 seconds 22.5-36.0 (BEAKER) (test code = 760) PROTHROMBIN [id number] 08:31:30 Test Item Value Reference Range Interpretation Comments PROTIME (BEAKER) 14.1 seconds 11.9-14.2 (test code = 759) INR (BEAKER) (test 1.11 See_Comment [Automat ed message] code = 370) The system [employer] h generated this result transmitted ref erence range: <=5.90. The reference range was not used to int erpret this result as normal/abnormal . RECOMMENDED COUMADIN/WARFARIN INR THERAPY RANGESSTANDARD DOSE: 2.0 - 3.0 Includes: PROPHYLAXIS forvenous thrombosis, systemic embolization; TREATMENT for venous thrombosis and/or pulmonary embolus.HIGH RISK: Target INR is 2.5-3.5 for patients with mechanical heart valves.CBC W/PLT COUNT & AUTO DIFFERENTIAL 2021-04-11 08:25:27 Test Item Value Reference Range Interpretation Comments WHITE BLOOD CELL COUNT (BEAKER) 3.5 K/ L 3.5-10.5 (test code = 775) RED BLOOD CELL COUNT (BEAKER) 3.85 M/ L 3.93-5.22 L (test code = 761) HEMOGLOBIN (BEAKER) (test code = 11.7 GM/DL 11.2-15.7 410) HEMATOCRIT (BEAKER) (test code = 35.8 % 34.1-44.9 411) MEAN CORPUSCULAR VOLUME (BEAKER) 93.0 fL 79.4-94.8 (test code = 753) MEAN CORPUSCULAR HEMOGLOBIN 30.4 pg 25.6-32.2 (BEAKER) (test code = 751) MEAN CORPUSCULAR HEMOGLOBIN CONC 32.7 GM/DL 32.2-35.5 (BEAKER) (test code = 752) RED CELL DISTRIBUTION WIDTH 15.2 % 11.7-14.4 H (BEAKER) (test code = 412) PLATELET COUNT (BEAKER) (test code 30 K/CU MM 150-450 L = 756) MEAN PLATELET VOLUME (BEAKER) 12.0 fL 9.4-12.3 (test code = 754) NUCLEATED RED BLOOD CELLS (BEAKER) 0 /100 WBC 0-0 (test code = 413) NEUTROPHILS RELATIVE PERCENT 61 % (BEAKER) (test code = 429) LYMPHOCYTES RELATIVE PERCENT 22 % (BEAKER) (test code = 430) MONOCYTES RELATIVE PERCENT 11 % (BEAKER) (test code = 431) EOSINOPHILS RELATIVE PERCENT 6 % (BEAKER) (test code = 432) BASOPHILS RELATIVE PERCENT 0 % (BEAKER) (test code = 437) NEUTROPHILS ABSOLUTE COUNT 2.15 K/ L 1.56-6.13 (BEAKER) (test code = 670) LYMPHOCYTES ABSOLUTE COUNT 0.76 K/ L 1.18-3.74 L (BEAKER) (test code = 414) MONOCYTES ABSOLUTE COUNT (BEAKER) 0.40 K/ L 0.24-0.36 H (test code = 415) EOSINOPHILS ABSOLUTE COUNT 0.20 K/ L 0.04-0.36 (BEAKER) (test code = 416) BASOPHILS ABSOLUTE COUNT (BEAKER) 0.01 K/ L 0.01-0.08 (test code = 417) IMMATURE GRANULOCYTES-RELATIVE 0 % 0-1 PERCENT (BEAKER) (test code = 2801) CALCIUM, [id number] 08:17:07 Test Item Value Reference Range Interpretation Comments CALCIUM IONIZED (BEAKER) (test 1.20 mmol/L 1.12-1.27 code = 698) PH, BLOOD (BEAKER) (test code = 7.38 1810) COMPREHENSIVE METABOLIC [id number] 09:52:02 Test Item Value Reference Range Interpretation Comments TOTAL PROTEIN 6.7 gm/dL 6.0-8.3 Specimen sligh tly (BEAKER) (test code = hemoly zed 770) ALBUMIN (BEAKER) 3.5 g/dL 3.5-5.0 Specimen sl ightly (test code = 1145) hemolyzed ALKALINE PHOSPHATASE 93 U/L 40-150 (BEAKER) (test code = 346) BILIRUBIN TOTAL 0.6 mg/dL 0.2-1.2 Specimen sli ghtly (BEAKER) (test code = hemoly zed 377) SODIUM (BEAKER) (test 138 meq/L 136-145 code = 381) POTASSIUM (BEAKER) 4.3 meq/L 3.5-5.1 Specimen slightly (test code = 379) hemolyzed CHLORIDE (BEAKER) 105 meq/L 98-107 (test code = 382) CO2 (BEAKER) (test 23 meq/L 22-29 code = 355) BLOOD UREA NITROGEN 11 mg/dL 7-21 (BEAKER) (test code = 354) CREATININE (BEAKER) 1.02 mg/dL 0.57-1.25 Specimen slightly (test code = 358) hemolyzed GLUCOSE RANDOM 156 mg/dL 70-105 H (BEAKER) (test code = 652) CALCIUM (BEAKER) 8.3 mg/dL 8.4-10.2 L (test code = 697) AST (SGOT) (BEAKER) 29 U/L 5-34 Specimen slightly (test code = 353) hemolyzed ALT (SGPT) (BEAKER) 26 U/L 6-55 Specimen slightly (test code = 347) hemolyzed EGFR (BEAKER) (test 57 mL/min/1.73 ESTIMA GABY GFR IS code = 1092) sq m NOT ACCURATE CREATININE CLEARANCE IN PREDICTING GLOMERULAR FILTRATION RATE . ESTIMATED GFR I S NOT APPLICABLE FOR DIALYSIS PATIEN TS. Shop Hand YOSEF - DENA NAVAS - DENA LPOCT-GLUCOSE [id number] 08:16:36 Test Item Value Reference Range Interpretation Comments POC-GLUCOSE METER 222 mg/dL 70-110 H : TESTED A T [facility] 67[facility] (BEAKER) (test code = [place], 1538) [id number]: Shop Hand/Techni sanjeev ID = [id number] for Bess Lares PROTHROMBIN [id number] 07:26:15 Test Item Value Reference Range Interpretation Comments PROTIME (BEAKER) 15.7 seconds 11.9-14.2 H (test code = 759) INR (BEAKER) (test 1.27 See_Comment [Automat ed message] code = 370) The system [employer] generated this result transmitted ref erence range: <=5.90. The reference range was not used to int erpret this result as normal/abnormal . RECOMMENDED COUMADIN/WARFARIN INR THERAPY RANGESSTANDARD DOSE: 2.0 - 3.0 Includes: PROPHYLAXIS forvenous thrombosis, systemic embolization; TREATMENT for venous thrombosis and/or pulmonary embolus.HIGH RISK: Target INR is 2.5-3.5 for patients with mechanical heart valves.CBC W/PLT COUNT & AUTO DIFFERENTIAL 2021-03-25 07:19:16 Test Item Value Reference Range Interpretation Comments WHITE BLOOD CELL COUNT (BEAKER) 3.1 K/ L 3.5-10.5 L (test code = 775) RED BLOOD CELL COUNT (BEAKER) 3.43 M/ L 3.93-5.22 L (test code = 761) HEMOGLOBIN (BEAKER) (test code = 10.5 GM/DL 11.2-15.7 L 410) HEMATOCRIT (BEAKER) (test code = 31.8 % 34.1-44.9 L 411) MEAN CORPUSCULAR VOLUME (BEAKER) 92.7 fL 79.4-94.8 (test code = 753) MEAN CORPUSCULAR HEMOGLOBIN 30.6 pg 25.6-32.2 (BEAKER) (test code = 751) MEAN CORPUSCULAR HEMOGLOBIN CONC 33.0 GM/DL 32.2-35.5 (BEAKER) (test code = 752) RED CELL DISTRIBUTION WIDTH 15.6 % 11.7-14.4 H (BEAKER) (test code = 412) PLATELET COUNT (BEAKER) (test code 34 K/CU MM 150-450 L = 756) MEAN PLATELET VOLUME (BEAKER) 12.3 fL 9.4-12.3 (test code = 754) NUCLEATED RED BLOOD CELLS (BEAKER) 0 /100 WBC 0-0 (test code = 413) NEUTROPHILS RELATIVE PERCENT 66 % (BEAKER) (test code = 429) LYMPHOCYTES RELATIVE PERCENT 20 % (BEAKER) (test code = 430) MONOCYTES RELATIVE PERCENT 10 % (BEAKER) (test code = 431) EOSINOPHILS RELATIVE PERCENT 4 % (BEAKER) (test code = 432) BASOPHILS RELATIVE PERCENT 0 % (BEAKER) (test code = 437) NEUTROPHILS ABSOLUTE COUNT 2.03 K/ L 1.56-6.13 (BEAKER) (test code = 670) LYMPHOCYTES ABSOLUTE COUNT 0.62 K/ L 1.18-3.74 L (BEAKER) (test code = 414) MONOCYTES ABSOLUTE COUNT (BEAKER) 0.31 K/ L 0.24-0.36 (test code = 415) EOSINOPHILS ABSOLUTE COUNT 0.11 K/ L 0.04-0.36 (BEAKER) (test code = 416) BASOPHILS ABSOLUTE COUNT (BEAKER) 0.01 K/ L 0.01-0.08 (test code = 417) IMMATURE GRANULOCYTES-RELATIVE 0 % 0-1 PERCENT (BEAKER) (test code = 2801) POCT-GLUCOSE [id number] 23:04:19 Test Item Value Reference Range Interpretation Comments POC-GLUCOSE METER 280 mg/dL 70-110 H : TESTED A T [facility] 6720 (BEAKER) (test code = [facility], 1538) [id number]: Shop Hand/Techni sanjeev ID = [id number] for ON UTRACY, JAROD POCT-GLUCOSE [id number] 16:00:21 Test Item Value Reference Range Interpretation Comments POC-GLUCOSE METER 166 mg/dL 70-110 H : TESTED A T [facility] 6720 (BEAKER) (test code = [facility], 1538) [id number]: Shop Hand/Techni sanjeev ID = [id number] for Bess Lares HEMOGLOBIN AND [id number] 13:22:38 Test Item Value Reference Range Interpretation Comments HEMOGLOBIN (BEAKER) (test code = 10.8 GM/DL 11.2-15.7 L 410) HEMATOCRIT (BEAKER) (test code = 32.9 % 34.1-44.9 L 411) Shop Hand ID - 6000HEMOGLOBIN [id number] 11:43:51 Test Item Value Reference Range Interpretation Comments HEMOGLOBIN A1C (BEAKER) (test code = 6.4 % 4.3-6.1 H 368) POCT-GLUCOSE [id number] 11:23:09 Test Item Value Reference Range Interpretation Comments POC-GLUCOSE METER 181 mg/dL 70-110 H : TESTED A T [facility] 6720 (BEAKER) (test code = [facility], 1538) [id number]: Shop Hand/Techni sanjeev ID = [id number] for Bess Lares POCT-GLUCOSE [id number] 07:28:05 Test Item Value Reference Range Interpretation Comments POC-GLUCOSE METER 189 mg/dL 70-110 H : TESTED A T [facility] 6720 (BEAKER) (test code = [facility], 1538) [id number]: Shop Hand/Techni sanjeev ID = [id number] for Bess Lares HEPATIC FUNCTION [id number] 06:10:18 Test Item Value Reference Range Interpretation Comments TOTAL PROTEIN (BEAKER) (test code = 6.5 gm/dL 6.0-8.3 770) ALBUMIN (BEAKER) (test code = 1145) 3.4 g/dL 3.5-5.0 L BILIRUBIN TOTAL (BEAKER) (test code 0.7 mg/dL 0.2-1.2 = 377) BILIRUBIN DIRECT (BEAKER) (test 0.4 mg/dL 0.1-0.5 code = 706) ALKALINE PHOSPHATASE (BEAKER) (test 101 U/L 40-150 code = 346) AST (SGOT) (BEAKER) (test code = 30 U/L 5-34 353) ALT (SGPT) (BEAKER) (test code = 26 U/L 6-55 347) Shop Hand ID - MAGDIEL [id number] 06:10:17 Test Item Value Reference Range Interpretation Comments MAGNESIUM (BEAKER) (test code = 1.5 mg/dL 1.6-2.6 L 627) Shop Hand ID - MAGDIEL MBASIC METABOLIC [id number] 06:10:16 Test Item Value Reference Range Interpretation Comments SODIUM (BEAKER) 136 meq/L 136-145 (test code = 381) POTASSIUM (BEAKER) 4.5 meq/L 3.5-5.1 (test code = 379) CHLORIDE (BEAKER) 107 meq/L 98-107 (test code = 382) CO2 (BEAKER) (test 24 meq/L 22-29 code = 355) BLOOD UREA NITROGEN 8 mg/dL 7-21 (BEAKER) (test code = 354) CREATININE (BEAKER) 1.07 mg/dL 0.57-1.25 (test code = 358) GLUCOSE RANDOM 180 mg/dL 70-105 H (BEAKER) (test code = 652) CALCIUM (BEAKER) 8.5 mg/dL 8.4-10.2 (test code = 697) EGFR (BEAKER) (test 54 mL/min/1.73 ESTIMA GABY GFR IS code = 1092) sq m NOT ACCURATE CREATININE CLEARANCE IN PREDICTING GLOMERULAR FILTRATION RATE . ESTIMATED GFR I S NOT APPLICABLE FOR DIALYSIS PATIEN TS. Shop Hand ID - MAGDIEL MPROTHROMBIN TIME/[id number] 05:40:00 Test Item Value Reference Range Interpretation Comments PROTIME (BEAKER) 15.9 seconds 11.9-14.2 H (test code = 759) INR (BEAKER) (test 1.30 See_Comment [Automat ed message] code = 370) The system [employer] generated this result transmitted ref erence range: <=5.90. The reference range was not used to int erpret this result as normal/abnormal . RECOMMENDED COUMADIN/WARFARIN INR THERAPY RANGESSTANDARD DOSE: 2.0 - 3.0 Includes: PROPHYLAXIS forvenous thrombosis, systemic embolization; TREATMENT for venous thrombosis and/or pulmonary embolus.HIGH RISK: Target INR is 2.5-3.5 for patients with mechanical heart valves.HEMOGLOBIN AND [id number] 05:35:58 Test Item Value Reference Range Interpretation Comments HEMOGLOBIN (BEAKER) (test code = 10.2 GM/DL 11.2-15.7 L 410) HEMATOCRIT (BEAKER) (test code = 32.0 % 34.1-44.9 L 411) CBC W/PLT COUNT & AUTO [id number] 05:35:56 Test Item Value Reference Range Interpretation Comments WHITE BLOOD CELL COUNT (BEAKER) 2.4 K/ L 3.5-10.5 L (test code = 775) RED BLOOD CELL COUNT (BEAKER) 3.37 M/ L 3.93-5.22 L (test code = 761) HEMOGLOBIN (BEAKER) (test code = 10.2 GM/DL 11.2-15.7 L 410) HEMATOCRIT (BEAKER) (test code = 32.0 % 34.1-44.9 L 411) MEAN CORPUSCULAR VOLUME (BEAKER) 95.0 fL 79.4-94.8 H (test code = 753) MEAN CORPUSCULAR HEMOGLOBIN 30.3 pg 25.6-32.2 (BEAKER) (test code = 751) MEAN CORPUSCULAR HEMOGLOBIN CONC 31.9 GM/DL 32.2-35.5 L (BEAKER) (test code = 752) RED CELL DISTRIBUTION WIDTH 15.9 % 11.7-14.4 H (BEAKER) (test code = 412) PLATELET COUNT (BEAKER) (test code 27 K/CU MM 150-450 L = 756) MEAN [...] (test code = 437) NEUTROPHILS ABSOLUTE COUNT 1.56 K/ L 1.56-6.13 (BEAKER) (test code = 670) LYMPHOCYTES ABSOLUTE COUNT 0.47 K/ L 1.18-3.74 L (BEAKER) (test code = 414) MONOCYTES ABSOLUTE COUNT (BEAKER) 0.27 K/ L 0.24-0.36 (test code = 415) EOSINOPHILS ABSOLUTE COUNT 0.10 K/ L 0.04-0.36 (BEAKER) (test code = 416) BASOPHILS ABSOLUTE COUNT (BEAKER) 0.01 K/ L 0.01-0.08 (test code = 417) IMMATURE GRANULOCYTES-RELATIVE 1 % 0-1 PERCENT (BEAKER) (test code = 2801) POCT-GLUCOSE [id number] 23:23:05 Test Item Value Reference Range Interpretation Comments POC-GLUCOSE METER 151 mg/dL 70-110 H : TESTED A T [facility] 6720 (BEAKER) (test code = MICHEL [place], 1538) [address]: Shop Hand/Techni sanjeev ID = [id number] for ON UOHA, JAROD HEMOGLOBIN AND [id number] 23:02:32 Test Item Value Reference Range Interpretation Comments HEMOGLOBIN (BEAKER) (test code = 10.9 GM/DL 11.2-15.7 L 410) HEMATOCRIT (BEAKER) (test code = 34.1 % 34.1-44.9 411) Shop Hand ID - [id number] [id number] 19:23:43 Test Item Value Reference Range Interpretation Comments POC-GLUCOSE METER 174 mg/dL 70-110 H : TESTED A T [facility] 6720 (BEAKER) (test code = MICHEL ENGEL [place], 1538) [address]: Shop Hand/Techni sanjeev ID = [id number] for Al Aisha diaz SARS-COV2/RT-PCR ([facility])2021-03-23 14:56:48 Test Item Value Reference Range Interpretation Comments SARS-COV2/RT-PCR Negative Negative The SARS-Co V-2 target (test code = nucleic acids a re not [id number]) detected in thi s specimen. Negative result s do not preclude SARS-C oV-2 infection and s hould not be used as the dinora e basis for patient managem ent decisions. Nega tive results must be combine d with clinical observ ations, patient history , and epidemiological information. A false negativ e result may occur if a spec imen is improperly ha ected, transported or handled. This SARS CoV-2 test is a rapid, real-sukhdev e RT-PCR test intended for th e qualitative detection of nu cleic acid from SARS-CoV-2 in a nasopharyngeal swab specimen collected from individuals suspected of CO VID-19 by their healthcar e provider. This test has been authorized by FDA under an EUA for use by authorized laboratories. This test is only authorized for the duration of the declaration that circumstances exist justifying the authorization of emergency use of in vitro diagnostic tests for detection and/or diagnosis of COVID-19 under Section 564(b)(1) of the Federal Food, Drug and Cosmetic Act, 21 U.S.C. 360bbb- 3(b)(1), unless the authorization is terminated or revoked sooner. Fact Sheet for Healthcare Providers: https://www.cephe id.com/Documents/Xpert%20Xpress%20SARS%20CoV-2/Fact%20Sheets/302-3802%20SARS-COV -2%20HEALTHCARE%20PROVIDERS%20FACT%20SHEET.pdf Fact Sheet for Healthcare Patients: https://www.[employer]Rec[employer]!/Documents/Xpert %20Xpress%20SARS%20CoV-2/Fact%20Sheets/302-3801%69GXBT-PUL-0%20PATIENT%20FACT%20 SHEET.[id number] 14:38:02 Test Item Value Reference Range Interpretation Comments LIPASE (BEAKER) (test code = 749) 89 U/L 8-78 H Shop Hand ID - EMERSONBASIC METABOLIC [id number] 14:38:01 Test Item Value Reference Range Interpretation Comments SODIUM (BEAKER) 143 meq/L 136-145 (test code = 381) POTASSIUM (BEAKER) 4.0 meq/L 3.5-5.1 (test code = 379) CHLORIDE (BEAKER) 112 meq/L 98-107 H (test code = 382) CO2 (BEAKER) (test 22 meq/L 22-29 code = 355) BLOOD UREA NITROGEN 9 mg/dL 7-21 (BEAKER) (test code = 354) CREATININE (BEAKER) 1.16 mg/dL 0.57-1.25 (test code = 358) GLUCOSE RANDOM 177 mg/dL 70-105 H (BEAKER) (test code = 652) CALCIUM (BEAKER) 9.2 mg/dL 8.4-10.2 (test code = 697) EGFR (BEAKER) (test 49 mL/min/1.73 ESTIMA GABY GFR IS code = 1092) sq m NOT ACCURATE CREATININE CLEARANCE IN PREDICTING GLOMERULAR FILTRATION RATE . ESTIMATED GFR I S NOT APPLICABLE FOR DIALYSIS PATIEN TS. Shop Hand ID - QuVISSONHEPATIC FUNCTION [id number] 14:38:01 Test Item Value Reference Range Interpretation Comments TOTAL PROTEIN (BEAKER) (test code = 6.9 gm/dL 6.0-8.3 770) ALBUMIN (BEAKER) (test code = 1145) 3.6 g/dL 3.5-5.0 BILIRUBIN TOTAL (BEAKER) (test code 0.6 mg/dL 0.2-1.2 = 377) BILIRUBIN DIRECT (BEAKER) (test 0.3 mg/dL 0.1-0.5 code = 706) ALKALINE PHOSPHATASE (BEAKER) (test 117 U/L 40-150 code = 346) AST (SGOT) (BEAKER) (test code = 35 U/L 5-34 H 353) ALT (SGPT) (BEAKER) (test code = 32 U/L 6-55 347) [facility] & AUTO [id number] 14:18:03 Test Item Value Reference Range Interpretation Comments WHITE BLOOD CELL COUNT 3.3 K/ L 3.5-10.5 L (BEAKER) (test code = 775) RED BLOOD CELL COUNT 3.75 M/ L 3.93-5.22 L (BEAKER) (test code = 761) HEMOGLOBIN (BEAKER) 11.3 GM/DL 11.2-15.7 (test code = 410) HEMATOCRIT (BEAKER) 34.8 % 34.1-44.9 (test code = 411) MEAN CORPUSCULAR VOLUME 92.8 fL 79.4-94.8 (BEAKER) (test code = 753) MEAN CORPUSCULAR 30.1 pg 25.6-32.2 HEMOGLOBIN (BEAKER) (test code = 751) MEAN CORPUSCULAR 32.5 GM/DL 32.2-35.5 HEMOGLOBIN CONC (BEAKER) (test code = 752) RED CELL DISTRIBUTION 15.9 % 11.7-14.4 H WIDTH (BEAKER) (test code = 412) PLATELET COUNT (BEAKER) 27 K/CU MM 150-450 L (test code = 756) MEAN PLATELET VOLUME Unable to report due (BEAKER) (test code = to abn ormal Platelet 754) population distribution. NUCLEATED RED BLOOD 0 /100 WBC 0-0 CELLS (BEAKER) (test code = 413) NEUTROPHILS RELATIVE 61 % PERCENT (BEAKER) (test code = 429) LYMPHOCYTES RELATIVE 21 % PERCENT (BEAKER) (test code = 430) MONOCYTES RELATIVE 12 % PERCENT (BEAKER) (test code = 431) EOSINOPHILS RELATIVE 5 % PERCENT (BEAKER) (test code = 432) BASOPHILS RELATIVE 0 % PERCENT (BEAKER) (test code = 437) NEUTROPHILS ABSOLUTE 2.02 K/ L 1.56-6.13 COUNT (BEAKER) (test code = 670) LYMPHOCYTES ABSOLUTE 0.70 K/ L 1.18-3.74 L COUNT (BEAKER) (test code = 414) MONOCYTES ABSOLUTE 0.41 K/ L 0.24-0.36 H COUNT (BEAKER) (test code = 415) EOSINOPHILS ABSOLUTE 0.16 K/ L 0.04-0.36 COUNT (BEAKER) (test code = 416) BASOPHILS ABSOLUTE 0.01 K/ L 0.01-0.08 COUNT (BEAKER) (test code = 417) IMMATURE 0 % 0-1 GRANULOCYTES-RELATIVE PERCENT (BEAKER) (test code = 2801) [id number] 14:12:16 Test Item Value Reference Range Interpretation Comments PROTIME (BEAKER) (test 15.4 seconds 11.9-14.2 H code = 759) INR (BEAKER) (test 1.24 See_Comment [Automat ed code = 370) message] The sy stem which generated this result transmitted reference range : <=5.90. The reference range was not used to interpret this result as normal/abnormal . PARTIAL THROMBOPLASTIN 29.0 seconds 22.5-36.0 TIME (BEAKER) (test code = 760) RECOMMENDED COUMADIN/WARFARIN INR THERAPY RANGESSTANDARD DOSE: 2.0 - 3.0 Includes: PROPHYLAXIS forvenous thrombosis, systemic embolization; TREATMENT for venous thrombosis and/or pulmonary embolus.HIGH RISK: Target INR is 2.5-3.5 for patients with mechanical heart valves.POCT-GLUCOSE [id number] 15:03:21 Test Item Value Reference Range Interpretation Comments POC-GLUCOSE METER 125 mg/dL 70-110 H : TESTED A T [facility] 6720 (BEAKER) (test code = [place]IN[place]UL [place], 1538) [address]: Shop Hand/Techni sanjeev ID = [id number] for [place] JOSEBIRDIESHELLEY BASIC METABOLIC [id number] 10:30:15 Test Item Value Reference Range Interpretation Comments SODIUM (BEAKER) 135 meq/L 136-145 L (test code = 381) POTASSIUM (BEAKER) 4.3 meq/L 3.5-5.1 (test code = 379) CHLORIDE (BEAKER) 103 meq/L 98-107 (test code = 382) CO2 (BEAKER) (test 24 meq/L 22-29 code = 355) BLOOD UREA NITROGEN 10 mg/dL 7-21 (BEAKER) (test code = 354) CREATININE (BEAKER) 0.88 mg/dL 0.57-1.25 (test code = 358) GLUCOSE RANDOM 183 mg/dL 70-105 H (BEAKER) (test code = 652) CALCIUM (BEAKER) 8.8 mg/dL 8.4-10.2 (test code = 697) EGFR (BEAKER) (test 67 mL/min/1.73 ESTIMA GABY GFR IS code = 1092) sq m NOT ACCURATE CREATININE CLEARANCE IN PREDICTING GLOMERULAR FILTRATION RATE . ESTIMATED GFR I S NOT APPLICABLE FOR DIALYSIS PATIEN TS. Shop Hand ID - PIAYA LCBC W/PLT COUNT & AUTO [id number] 10:18:28 Test Item Value Reference Range Interpretation Comments WHITE BLOOD CELL COUNT 3.0 K/ L 3.5-10.5 L (BEAKER) (test code = 775) RED BLOOD CELL COUNT 3.98 M/ L 3.93-5.22 (BEAKER) (test code = 761) HEMOGLOBIN (BEAKER) 11.9 GM/DL 11.2-15.7 (test code = 410) HEMATOCRIT (BEAKER) 34.1 % 34.1-44.9 (test code = 411) MEAN CORPUSCULAR VOLUME 85.7 fL 79.4-94.8 (BEAKER) (test code = 753) MEAN CORPUSCULAR 29.9 pg 25.6-32.2 HEMOGLOBIN (BEAKER) (test code = 751) MEAN CORPUSCULAR 34.9 GM/DL 32.2-35.5 HEMOGLOBIN CONC (BEAKER) (test code = 752) RED CELL DISTRIBUTION 16.2 % 11.7-14.4 H WIDTH (BEAKER) (test code = 412) PLATELET COUNT (BEAKER) 25 K/CU MM 150-450 L (test code = 756) MEAN PLATELET VOLUME Unable to report due (BEAKER) (test code = to abn ormal Platelet 754) population distribution. NUCLEATED RED BLOOD 0 /100 WBC 0-0 CELLS (BEAKER) (test code = 413) NEUTROPHILS RELATIVE 63 % PERCENT (BEAKER) (test code = 429) LYMPHOCYTES RELATIVE 22 % PERCENT (BEAKER) (test code = 430) MONOCYTES RELATIVE 12 % PERCENT (BEAKER) (test code = 431) EOSINOPHILS RELATIVE 3 % PERCENT (BEAKER) (test code = 432) BASOPHILS RELATIVE 0 % PERCENT (BEAKER) (test code = 437) NEUTROPHILS ABSOLUTE 1.87 K/ L 1.56-6.13 COUNT (BEAKER) (test code = 670) LYMPHOCYTES ABSOLUTE 0.64 K/ L 1.18-3.74 L COUNT (BEAKER) (test code = 414) MONOCYTES ABSOLUTE 0.35 K/ L 0.24-0.36 COUNT (BEAKER) (test code = 415) EOSINOPHILS ABSOLUTE 0.08 K/ L 0.04-0.36 COUNT (BEAKER) (test code = 416) BASOPHILS ABSOLUTE 0.01 K/ L 0.01-0.08 COUNT (BEAKER) (test code = 417) IMMATURE 0 % 0-1 GRANULOCYTES-RELATIVE PERCENT (BEAKER) (test code = 2801) CT, [id number] 18:39:00Unlisted Reason for Exam - Click Yes and Enter Reason Below->YesUnlisted Reason for Exam->TIPSplanningWill this procedure require oral contrast?->No [facility]LE[facility] : 1965 Sex: FFINAL REPORT ABDOMINAL AND PELVIS CT DATED 03/08/2021 COMPARISON: 2020 CLINICAL INFORMATION: Portal hypertensionTIPS planning TECHNIQUE: Axial images of the abdomen and pelvis were obtained from diaphragm to the pubic symphysis with intravenous contrast. This exam was performed according to our departmental dose-optimization program, which includes automated exposure control, adjustment of the mA and/or kV according to patient size and/or use of interactive reconstruction technique. COMMENT: Liver is cirrhotic in appearance with irregular margins. No abnormal enhancement or suspicious mass is seen in the liver. Spleen is enlarged measuring woimazgxajpji39.5 x 6.6 x 10.17. The splenic, spleen mesenteric, portal, and hepatic veins are patent. Main portal vein measures 1.7 cm. Gallbladder is distended. Several small gallstones are present. No biliary dilatation is noted. Pancreas and adrenals are unremarkable. Both kidneys are normal in size and functioning. No hydronephrosis, hydroureter, urolithiasis is seen. Diverticular disease is seen in the large bowel without diverticulitis. There is nonspecific wall thickening in the hepatic flexure and transverse colon secondary to nondistention. The small bowel is normal in caliber. Uterus is atrophic. The urinary bladder is contracted. No mass, adenopathy or ascites is present. IMPRESSION: 1. Cirrhosis with splenomegaly and portal hypertension.2. Cholelithiasis without biliary dilatation.3. Diverticulosis and nonspecific wall thickening in the hepatic flexure and transverse colon most likely secondary to nondistention. Signed: Steven Murilloeport Verified Date/Time: 03/08/2021 18:39:08 Reading Location: [address] Body Reading Room POCT-GLUCOSE [id number] 18:25:50 Test Item Value Reference Range Interpretation Comments POC-GLUCOSE METER 138 mg/dL 70-110 H : TESTED A [facility] 6720 (Sarta) (test code = [facility], 1538) [address]: Shop Hand/Techni sanjeev ID = [id number] for [place] LLIS, ANAYA POCT-GLUCOSE [id number] 14:11:45 Test Item Value Reference Range Interpretation Comments POC-GLUCOSE METER 207 mg/dL 70-110 H : TESTED A T [facility] 6720 (Sarta) (test code = [facility], 1538) [address]: Shop Hand/Techni sanjeev ID = [id number] for [place] LLIS, ANAYA CBC W/PLT COUNT & AUTO [id number] 05:09:37 Test Item Value Reference Range Interpretation Comments WHITE BLOOD CELL COUNT 2.9 K/ L 3.5-10.5 L (BEAKER) (test code = 775) RED BLOOD CELL COUNT 3.67 M/ L 3.93-5.22 L (BEAKER) (test code = 761) HEMOGLOBIN (BEAKER) 11.0 GM/DL 11.2-15.7 L (test code = 410) HEMATOCRIT (BEAKER) 33.6 % 34.1-44.9 L (test code = 411) MEAN CORPUSCULAR VOLUME 91.6 fL 79.4-94.8 (BEAKER) (test code = 753) MEAN CORPUSCULAR 30.0 pg 25.6-32.2 HEMOGLOBIN (BEAKER) (test code = 751) MEAN CORPUSCULAR 32.7 GM/DL 32.2-35.5 HEMOGLOBIN CONC (BEAKER) (test code = 752) RED CELL DISTRIBUTION 16.6 % 11.7-14.4 H WIDTH (BEAKER) (test code = 412) PLATELET COUNT (BEAKER) 19 K/CU MM 150-450 L (test code = 756) MEAN PLATELET VOLUME Unable to report due (BEAKER) (test code = to abn ormal Platelet 754) population distribution. NUCLEATED RED BLOOD 0 /100 WBC 0-0 CELLS (BEAKER) (test code = 413) NEUTROPHILS RELATIVE 64 % PERCENT (BEAKER) (test code = 429) LYMPHOCYTES RELATIVE 21 % PERCENT (BEAKER) (test code = 430) MONOCYTES RELATIVE 11 % PERCENT (BEAKER) (test code = 431) EOSINOPHILS RELATIVE 4 % PERCENT (BEAKER) (test code = 432) BASOPHILS RELATIVE 0 % PERCENT (BEAKER) (test code = 437) NEUTROPHILS ABSOLUTE 1.82 K/ L 1.56-6.13 COUNT (BEAKER) (test code = 670) LYMPHOCYTES ABSOLUTE 0.61 K/ L 1.18-3.74 L COUNT (BEAKER) (test code = 414) MONOCYTES ABSOLUTE 0.32 K/ L 0.24-0.36 COUNT (BEAKER) (test code = 415) EOSINOPHILS ABSOLUTE 0.10 K/ L 0.04-0.36 COUNT (BEAKER) (test code = 416) BASOPHILS ABSOLUTE 0.01 K/ L 0.01-0.08 COUNT (BEAKER) (test code = 417) IMMATURE 0 % 0-1 GRANULOCYTES-RELATIVE PERCENT (BEAKER) (test code = 2801) HEPATIC FUNCTION [id number] 05:06:54 Test Item Value Reference Range Interpretation Comments TOTAL PROTEIN (BEAKER) 6.8 gm/dL 6.0-8.3 Speci men slightly (test code = 770) hemolyzed ALBUMIN (BEAKER) (test 3.4 g/dL 3.5-5.0 L Speci men slightly code = 1145) hemolyzed BILIRUBIN TOTAL 0.6 mg/dL 0.2-1.2 Specimen sli ghtly (BEAKER) (test code = hemoly zed 377) BILIRUBIN DIRECT 0.2 mg/dL 0.1-0.5 Specimen sl ightly (BEAKER) (test code = hemoly zed 706) ALKALINE PHOSPHATASE 115 U/L 40-150 (BEAKER) (test code = 346) AST (SGOT) (BEAKER) 31 U/L 5-34 Specimen slightly (test code = 353) hemolyzed ALT (SGPT) (BEAKER) 30 U/L 6-55 Specimen slightly (test code = 347) hemolyzed Shop Hand ID - PIAYA LBASIC METABOLIC [id number] 05:06:53 Test Item Value Reference Range Interpretation Comments SODIUM (BEAKER) 133 meq/L 136-145 L (test code = 381) POTASSIUM (BEAKER) 4.4 meq/L 3.5-5.1 Specimen slightly (test code = 379) hemolyzed CHLORIDE (BEAKER) 106 meq/L 98-107 (test code = 382) CO2 (BEAKER) (test 20 meq/L 22-29 L code = 355) BLOOD UREA NITROGEN 9 mg/dL 7-21 (BEAKER) (test code = 354) CREATININE (BEAKER) 0.88 mg/dL 0.57-1.25 Specimen slightly (test code = 358) hemolyzed GLUCOSE RANDOM 191 mg/dL 70-105 H (BEAKER) (test code = 652) CALCIUM (BEAKER) 8.6 mg/dL 8.4-10.2 (test code = 697) EGFR (BEAKER) (test 67 mL/min/1.73 ESTIMA GABY GFR IS code = 1092) sq m NOT ACCURATE CREATININE CLEARANCE IN PREDICTING GLOMERULAR FILTRATION RATE . ESTIMATED GFR I S NOT APPLICABLE FOR DIALYSIS PATIEN TS. Shop Hand ID - PIAYA LPROTHROMBIN [id number] 04:58:22 Test Item Value Reference Range Interpretation Comments PROTIME (BEAKER) 14.7 seconds 11.9-14.2 H (test code = 759) INR (BEAKER) (test 1.17 See_Comment [Automat ed message] code = 370) The system [employer] generated this result transmitted ref erence range: <=5.90. The reference range was not used to int erpret this result as normal/abnormal . RECOMMENDED COUMADIN/WARFARIN INR THERAPY RANGESSTANDARD DOSE: 2.0 - 3.0 Includes: PROPHYLAXIS forvenous thrombosis, systemic embolization; TREATMENT for venous thrombosis and/or pulmonary embolus.HIGH RISK: Target INR is 2.5-3.5 for patients with mechanical heart valves.HIGH SENSITIVITY TROPONIN [id number] 22:25:04 Test Item Value Reference Range Interpretation Comments HIGH SENSITIVITY < pg/ml See_Comment [Automated message] TROPONIN I (test code = The system which [id number]) generated this result transmitted ref erence range: <=17. Th e reference range was not used to interpr et this result as normal/abnormal . Shop Hand ID - CDPThe CIRCULAR KNITTER HELPER STAT High Sensitivity Troponin-I results should be used in conjunction with other diagnostic information such as ECG, clinical observations and information, and patient symptoms to aid in the diagnosis of MN.RAD, CHEST, 1 VIEW, NON [id number] 22:13:00Reason for exam:->RECTAL BLEEDINGReason for exam:->HEMATEMESISShould this be performed [facility]?->Yes[facility] GLEASON : 1965 Sex: FFINAL REPORT Chest, 1 view. History: Rectal bleeding and hematemesis. Comparison: None available. Findings: The cardiomediastinal silhouette and pulmonary vasculature are within normal limits for a portable exam. The lungs are clear without evidence of consolidation oreffusion. The soft tissues and osseous structures are intact. IMPRESSION: No acute cardiopulmonaryabnormality. Signed: Violet Cook MDReport Verified Date/Time: 03/07/2021 22:13:00 [id number] 20:49:29 Test Item Value Reference Range Interpretation Comments AMMONIA (BEAKER) (test code = 348) 36 mol/L 18-72 Shop Hand ID - EMERSONSARS-COV2/RT-PCR ([facility])2021-03-07 20:32:21 Test Item Value Reference Range Interpretation Comments SARS-COV2/RT-PCR Negative Negative The SARS-Co V-2 target (test code = nucleic acids a re not [id number]) detected in thi s specimen. Negative result s do not preclude SARS-C oV-2 infection and s hould not be used as the dinora e basis for patient managem ent decisions. Nega tive results must be combine d with clinical observ ations, patient history , and epidemiological information. A false negativ e result may occur if a spec imen is improperly ha ected, transported or handled. This SARS CoV-2 test is a rapid, real-sukhdev e RT-PCR test intended for th e qualitative detection of nu cleic acid from SARS-CoV-2 in a nasopharyngeal swab specimen collected from individuals suspected of CO VID-19 by their healthcar e provider. This test has been authorized by FDA under an EUA for use by authorized laboratories. This test is only authorized for the duration of the declaration that circumstances exist justifying the authorization of emergency use of in vitro diagnostic tests for detection and/or diagnosis of COVID-19 under Section 564(b)(1) of the Federal Food, Drug and Cosmetic Act, 21 U.S.C. 360bbb- 3(b)(1), unless the authorization is terminated or revoked sooner. Fact Sheet for Healthcare Providers: https://www.cephe id.com/Documents/Xpert%20Xpress%20SARS%20CoV-2/Fact%20Sheets/302-3802%20SARS-COV -2%20HEALTHCARE%20PROVIDERS%20FACT%20SHEET.pdf Fact Sheet for Healthcare Patients: https://www.QReca!/Documents/Xpert %20Xpress%20SARS%20CoV-2/Fact%20Sheets/302-3801%04OYOG-JSH-8%20PATIENT%20FACT%20 SHEET.pdfCOMPREHENSIVE METABOLIC [id number] 19:51:17 Test Item Value Reference Range Interpretation Comments TOTAL PROTEIN 7.6 gm/dL 6.0-8.3 Specimen marksaba dly (BEAKER) (test code = hemoly zed 770) ALBUMIN (BEAKER) 3.7 g/dL 3.5-5.0 Specimen ma rkedly (test code = 1145) hemolyzed ALKALINE PHOSPHATASE 117 U/L 40-150 (BEAKER) (test code = 346) BILIRUBIN TOTAL 0.5 mg/dL 0.2-1.2 Specimen mar kedly (BEAKER) (test code = hemoly zed 377) SODIUM (BEAKER) (test 134 meq/L 136-145 L code = 381) POTASSIUM (BEAKER) 5.3 meq/L 3.5-5.1 H Specimen markedly (test code = 379) hemolyzed CHLORIDE (BEAKER) 107 meq/L 98-107 (test code = 382) CO2 (BEAKER) (test 19 meq/L 22-29 L code = 355) BLOOD UREA NITROGEN 11 mg/dL 7-21 (BEAKER) (test code = 354) CREATININE (BEAKER) 0.95 mg/dL 0.57-1.25 Specimen markedly (test code = 358) hemolyzed GLUCOSE RANDOM 118 mg/dL 70-105 H (BEAKER) (test code = 652) CALCIUM (BEAKER) 9.4 mg/dL 8.4-10.2 (test code = 697) AST (SGOT) (BEAKER) 55 U/L 5-34 H Specimen markedly (test code = 353) hemolyzed ALT (SGPT) (BEAKER) 39 U/L 6-55 Specimen markedly (test code = 347) hemolyzed EGFR (BEAKER) (test 62 mL/min/1.73 ESTIMA GABY GFR IS code = 1092) sq m NOT ACCURATE CREATININE CLEARANCE IN PREDICTING GLOMERULAR FILTRATION RATE . ESTIMATED GFR I S NOT APPLICABLE FOR DIALYSIS PATIEN TS. Shop Hand ID - [id number] 19:51:17 Test Item Value Reference Range Interpretation Comments LIPASE (BEAKER) (test code = 749) 120 U/L 8-78 H Shop Hand ID - EMERSONPT/[id number] 19:47:57 Test Item Value Reference Range Interpretation Comments PROTIME (BEAKER) (test 14.8 seconds 11.9-14.2 H code = 759) INR (BEAKER) (test 1.18 See_Comment [Automat ed code = 370) message] The sy stem which generated this result transmitted reference range : <=5.90. The reference range was not used to interpret this result as normal/abnormal . PARTIAL THROMBOPLASTIN 30.9 seconds 22.5-36.0 TIME (BEAKER) (test code = 760) RECOMMENDED COUMADIN/WARFARIN INR THERAPY RANGESSTANDARD DOSE: 2.0 - 3.0 Includes: PROPHYLAXIS forvenous thrombosis, systemic embolization; TREATMENT for venous thrombosis and/or pulmonary embolus.HIGH RISK: Target INR is 2.5-3.5 for patients with mechanical heart valves.CBC W/PLT COUNT & AUTO DIFFERENTIAL 2021-03-07 19:37:50 Test Item Value Reference Range Interpretation Comments WHITE BLOOD CELL COUNT 5.8 K/ L 3.5-10.5 (BEAKER) (test code = 775) RED BLOOD CELL COUNT 3.92 M/ L 3.93-5.22 L (BEAKER) (test code = 761) HEMOGLOBIN (BEAKER) 11.9 GM/DL 11.2-15.7 (test code = 410) HEMATOCRIT (BEAKER) 36.0 % 34.1-44.9 (test code = 411) MEAN CORPUSCULAR VOLUME 91.8 fL 79.4-94.8 (BEAKER) (test code = 753) MEAN CORPUSCULAR 30.4 pg 25.6-32.2 HEMOGLOBIN (BEAKER) (test code = 751) MEAN CORPUSCULAR 33.1 GM/DL 32.2-35.5 HEMOGLOBIN CONC (BEAKER) (test code = 752) RED CELL DISTRIBUTION 17.3 % 11.7-14.4 H WIDTH (BEAKER) (test code = 412) PLATELET COUNT (BEAKER) 34 K/CU MM 150-450 L (test code = 756) MEAN PLATELET VOLUME Unable to report due (BEAKER) (test code = to abn ormal Platelet 754) population distribution. NUCLEATED RED BLOOD 0 /100 WBC 0-0 CELLS (BEAKER) (test code = 413) NEUTROPHILS RELATIVE 71 % PERCENT (BEAKER) (test code = 429) LYMPHOCYTES RELATIVE 15 % PERCENT (BEAKER) (test code = 430) MONOCYTES RELATIVE 11 % PERCENT (BEAKER) (test code = 431) EOSINOPHILS RELATIVE 3 % PERCENT (BEAKER) (test code = 432) BASOPHILS RELATIVE 0 % PERCENT (BEAKER) (test code = 437) NEUTROPHILS ABSOLUTE 4.13 K/ L 1.56-6.13 COUNT (BEAKER) (test code = 670) LYMPHOCYTES ABSOLUTE 0.87 K/ L 1.18-3.74 L COUNT (BEAKER) (test code = 414) MONOCYTES ABSOLUTE 0.62 K/ L 0.24-0.36 H COUNT (BEAKER) (test code = 415) EOSINOPHILS ABSOLUTE 0.18 K/ L 0.04-0.36 COUNT (BEAKER) (test code = 416) BASOPHILS ABSOLUTE 0.01 K/ L 0.01-0.08 COUNT (BEAKER) (test code = 417) IMMATURE 0 % 0-1 GRANULOCYTES-RELATIVE PERCENT (BEAKER) (test code = 2801) [id number] 13:29:10 Test Item Value Reference Range Interpretation Comments POC-CREATININE 0.9 mg/dL 0.6-1.3 : [facility] (test [address], code = 1859) [facility] 7703 0: Shop Hand/Techni sanjeev ID = [id number] for Roasnna Edward POC-EGFR (BEAKER) 65 mL/min/1.73M2 (test code = 1860) POCT-GLUCOSE [id number] 12:21:00 Test Item Value Reference Range Interpretation Comments POC-GLUCOSE METER 259 mg/dL 70-110 H : TESTED A T [facility] 6720 (BEAKER) (test code = [facility], 1538) [address]: Shop Hand/Techni sanjeev ID = [id number] for ONELIA REGALADO BASIC METABOLIC [id number] 10:39:00 Test Item Value Reference Range Interpretation Comments SODIUM (BEAKER) 139 meq/L 136-145 (test code = 381) POTASSIUM (BEAKER) 4.3 meq/L 3.5-5.1 (test code = 379) CHLORIDE (BEAKER) 108 meq/L 98-107 H (test code = 382) CO2 (BEAKER) (test 22 meq/L 22-29 code = 355) BLOOD UREA NITROGEN 4 mg/dL 7-21 L (BEAKER) (test code = 354) CREATININE (BEAKER) 0.89 mg/dL 0.57-1.25 (test code = 358) GLUCOSE RANDOM 161 mg/dL 70-105 H (BEAKER) (test code = 652) CALCIUM (BEAKER) 8.5 mg/dL 8.4-10.2 (test code = 697) EGFR (BEAKER) (test 66 mL/min/1.73 ESTIMA GABY GFR IS code = 1092) sq m NOT ACCURATE CREATININE CLEARANCE IN PREDICTING GLOMERULAR FILTRATION RATE . ESTIMATED GFR I S NOT APPLICABLE FOR DIALYSIS PATIEN TS. Shop Hand ID - PIAYA LPOCT-GLUCOSE [id number] 07:22:00 Test Item Value Reference Range Interpretation Comments POC-GLUCOSE METER 208 mg/dL 70-110 H : TESTED A T [facility] 6720 (BEAKER) (test code = [facility], 1538) [address]: Shop Hand/Techni sanjeev ID = [id number] for ONELIA REGALADO PROTHROMBIN [id number] 06:25:00 Test Item Value Reference Range Interpretation Comments PROTIME (BEAKER) 16.9 seconds 11.9-14.2 H (test code = 759) INR (BEAKER) (test 1.40 See_Comment [Automat ed message] code = 370) The system [employer] generated this result transmitted ref erence range: <=5.90. The reference range was not used to int erpret this result as normal/abnormal . RECOMMENDED COUMADIN/WARFARIN INR THERAPY RANGESSTANDARD DOSE: 2.0 - 3.0 Includes: PROPHYLAXIS forvenous thrombosis, systemic embolization; TREATMENT for venous thrombosis and/or pulmonary embolus.HIGH RISK: Target INR is 2.5-3.5 for patients with mechanical heart valves.CBC W/PLT COUNT & AUTO DIFFERENTIAL 2021-01-16 06:18:00 Test Item Value Reference Range Interpretation Comments WHITE BLOOD CELL COUNT (BEAKER) 4.4 K/ L 3.5-10.5 (test code = 775) RED BLOOD CELL COUNT (BEAKER) 3.43 M/ L 3.93-5.22 L (test code = 761) HEMOGLOBIN (BEAKER) (test code = 9.3 GM/DL 11.2-15.7 L 410) HEMATOCRIT (BEAKER) (test code = 30.9 % 34.1-44.9 L 411) MEAN CORPUSCULAR VOLUME (BEAKER) 90.1 fL 79.4-94.8 (test code = 753) MEAN CORPUSCULAR HEMOGLOBIN 27.1 pg 25.6-32.2 (BEAKER) (test code = 751) MEAN CORPUSCULAR HEMOGLOBIN CONC 30.1 GM/DL 32.2-35.5 L (BEAKER) (test code = 752) RED CELL DISTRIBUTION WIDTH 17.5 % 11.7-14.4 H (BEAKER) (test code = 412) PLATELET COUNT (BEAKER) (test code 48 K/CU MM 150-450 L = 756) MEAN PLATELET VOLUME (BEAKER) 11.5 fL 9.4-12.3 (test code = 754) NUCLEATED RED BLOOD CELLS (BEAKER) 1 /100 WBC 0-0 H (test code = 413) NEUTROPHILS RELATIVE PERCENT 72 % (BEAKER) (test code = 429) LYMPHOCYTES RELATIVE PERCENT 13 % (BEAKER) (test code = 430) MONOCYTES RELATIVE PERCENT 11 % (BEAKER) (test code = 431) EOSINOPHILS RELATIVE PERCENT 3 % (BEAKER) (test code = 432) BASOPHILS RELATIVE PERCENT 0 % (BEAKER) (test code = 437) NEUTROPHILS ABSOLUTE COUNT 3.18 K/ L 1.56-6.13 (BEAKER) (test code = 670) LYMPHOCYTES ABSOLUTE COUNT 0.59 K/ L 1.18-3.74 L (BEAKER) (test code = 414) MONOCYTES ABSOLUTE COUNT (BEAKER) 0.49 K/ L 0.24-0.36 H (test code = 415) EOSINOPHILS ABSOLUTE COUNT 0.14 K/ L 0.04-0.36 (BEAKER) (test code = 416) BASOPHILS ABSOLUTE COUNT (BEAKER) 0.01 K/ L 0.01-0.08 (test code = 417) IMMATURE GRANULOCYTES-RELATIVE 1 % 0-1 PERCENT (AKER) (test code = 2801) POCT-GLUCOSE [id number] 21:27:00 Test Item Value Reference Range Interpretation Comments POC-GLUCOSE METER 308 mg/dL 70-110 H : Notified RN/MD: ([facility]) (test code = TESTED AT [facility] 6720 1538) [facility], [address]: Shop Hand/Techni sanjeev ID = [id number] for Kori flash Natasha POCT-GLUCOSE [id number] 18:07:00 Test Item Value Reference Range Interpretation Comments POC-GLUCOSE METER 294 mg/dL 70-110 H : [facility] ([facility] (test code = [facility], 153) [address]: Shop Hand/Techni sanjeev ID = [id number] for Jessica CABRERA POCT-GLUCOSE [id number] 13:24:00 Test Item Value Reference Range Interpretation Comments POC-GLUCOSE METER 156 mg/dL 70-110 H : [facility] ([facility]) (test code = [facility], 153) [address]: Shop Hand/Techni sanjeev ID = [id number] for RICK S DG CBC W/PLT COUNT & AUTO [id number] 06:50:00 Test Item Value Reference Range Interpretation Comments WHITE BLOOD CELL COUNT (BEAKER) 4.1 K/ L 3.5-10.5 (test code = 775) RED BLOOD CELL COUNT (BEAKER) 3.56 M/ L 3.93-5.22 L (test code = 761) HEMOGLOBIN (BEAKER) (test code = 9.9 GM/DL 11.2-15.7 L 410) HEMATOCRIT (BEAKER) (test code = 31.2 % 34.1-44.9 L 411) MEAN CORPUSCULAR VOLUME (BEAKER) 87.6 fL 79.4-94.8 (test code = 753) MEAN CORPUSCULAR HEMOGLOBIN 27.8 pg 25.6-32.2 (BEAKER) (test code = 751) MEAN CORPUSCULAR HEMOGLOBIN CONC 31.7 GM/DL 32.2-35.5 L (BEAKER) (test code = 752) RED CELL DISTRIBUTION WIDTH 17.5 % 11.7-14.4 H (BEAKER) (test code = 412) PLATELET COUNT (BEAKER) (test code 67 K/CU MM 150-450 L = 756) MEAN PLATELET VOLUME (BEAKER) 11.6 fL 9.4-12.3 (test code = 754) NUCLEATED RED BLOOD CELLS (BEAKER) 0 /100 WBC 0-0 (test code = 413) NEUTROPHILS RELATIVE PERCENT 63 % (BEAKER) (test code = 429) LYMPHOCYTES RELATIVE PERCENT 19 % (BEAKER) (test code = 430) MONOCYTES RELATIVE PERCENT 12 % (BEAKER) (test code = 431) EOSINOPHILS RELATIVE PERCENT 5 % (BEAKER) (test code = 432) BASOPHILS RELATIVE PERCENT 0 % (BEAKER) (test code = 437) NEUTROPHILS ABSOLUTE COUNT 2.58 K/ L 1.56-6.13 (BEAKER) (test code = 670) LYMPHOCYTES ABSOLUTE COUNT 0.79 K/ L 1.18-3.74 L (BEAKER) (test code = 414) MONOCYTES ABSOLUTE COUNT (BEAKER) 0.50 K/ L 0.24-0.36 H (test code = 415) EOSINOPHILS ABSOLUTE COUNT 0.20 K/ L 0.04-0.36 (BEAKER) (test code = 416) BASOPHILS ABSOLUTE COUNT (BEAKER) 0.01 K/ L 0.01-0.08 (test code = 417) IMMATURE GRANULOCYTES-RELATIVE 1 % 0-1 PERCENT (BEAKER) (test code = 2801) BASIC METABOLIC [id number] 06:20:00 Test Item Value Reference Range Interpretation Comments SODIUM (BEAKER) 136 meq/L 136-145 (test code = 381) POTASSIUM (BEAKER) 4.2 meq/L 3.5-5.1 (test code = 379) CHLORIDE (BEAKER) 105 meq/L 98-107 (test code = 382) CO2 (BEAKER) (test 22 meq/L 22-29 code = 355) BLOOD UREA NITROGEN 4 mg/dL 7-21 L (BEAKER) (test code = 354) CREATININE (BEAKER) 0.90 mg/dL 0.57-1.25 (test code = 358) GLUCOSE RANDOM 168 mg/dL 70-105 H (BEAKER) (test code = 652) CALCIUM (BEAKER) 8.7 mg/dL 8.4-10.2 (test code = 697) EGFR (BEAKER) (test 65 mL/min/1.73 ESTIMA GABY GFR IS code = 1092) sq m NOT ACCURATE CREATININE CLEARANCE IN PREDICTING GLOMERULAR FILTRATION RATE . ESTIMATED GFR I S NOT APPLICABLE FOR DIALYSIS PATIEN TS. Shop Hand ID - DBPROTHROMBIN TIME/[id number] 05:46:00 Test Item Value Reference Range Interpretation Comments PROTIME (BEAKER) 15.9 seconds 11.9-14.2 H (test code = 759) INR (BEAKER) (test 1.29 See_Comment [Automat ed message] code = 370) The system [employer] generated this result transmitted ref erence range: <=5.90. The reference range was not used to int erpret this result as normal/abnormal . RECOMMENDED COUMADIN/WARFARIN INR THERAPY RANGESSTANDARD DOSE: 2.0 - 3.0 Includes: PROPHYLAXIS forvenous thrombosis, systemic embolization; TREATMENT for venous thrombosis and/or pulmonary embolus.HIGH RISK: Target INR is 2.5-3.5 for patients with mechanical heart valves.POCT-GLUCOSE [id number] 05:45:00 Test Item Value Reference Range Interpretation Comments POC-GLUCOSE METER 179 mg/dL 70-110 H : TESTED A T [facility] 6720 (BEAKER) (test code = MICHEL Royal [place], 1538) [address]: Shop Hand/Techni sanjeev ID = [id number] for Nima avanidebpedro Brittni CT, [id number] 18:12:00Unlisted Reason for Exam - Click Yes and Enter Reason Below->NoWill this procedure require oral contrast?->No [facility]: JANETTE GLEASONPedro MARTIN : 1965 Sex: FFINAL REPORT CT of the abdomen and pelvis, without contrast Clinical H istory: Abdominal pain, acute, nonlocalized Technique: CT of the abdomen and pelvis is performed without intravenous contrast administration. This exam was performed according to our departmental doseoptimization program which includes automated exposure control, adjustment of the mA and/or kV according to patient's size and/or use of iterative reconstructive technique. Comparison Film: None Discussion: Visualized lower thorax is unremarkable. Liver is cirrhotic. No discrete liver lesion is identified on this noncontrast exam. There is vicariously excreted contrast within the gallbladder. Nonspecific gallbladder wall edema/thickening. A few small stones are also present. No ductal dilatation. Spleen is enlarged and measures 14.4 cm sagittally. The pancreas, and adrenal glands are normal. Kidneys demonstrate no hydronephrosis, contour deforming lesion, or radiopaque stone. No evidence of bowelobstruction, or abnormal bowel wall thickening. There is liquid content in colon which could reflectdiarrhea. Note bowel evaluation is suboptimal in the absence of IV and oral contrast. There is no pericecal inflammatory change. In the pelvis, the bladder, uterus and adnexa are unremarkable. There ismild vascular calcification. Increased number of upper abdomen lymph nodes are likely reactive. There is trace perihepatic ascites. No free air. There is a compression deformity of L1 vertebral body, with superior endplate retropulsion, age indeterminate. Impression: Liquid content in colon suggests diarrhea. Cirrhosis and splenomegaly. Trace ascites. Cholelithiasis. There is nonspecific gallbladder wall thickening, which could be related to portal hypertension, correlate clinically to exclude cholecystitis. Age indeterminate compression deformity of L1. Signed: Derik Gao Verified Date/Time: 01/14/2021 18:12:20 Reading Location: [facility] B1 [id number] Ortho Consult Reading Room POCT-GLUCOSE [id number] 17:52:00 Test Item Value Reference Range Interpretation Comments POC-GLUCOSE METER 239 mg/dL 70-110 H : [facility] (BEAKER) (test code = MICHEL Royal [place], 1538) [address]: Shop Hand/Techni sanjeev ID = [id number] for ONELIA REGALADO HEMOGLOBIN AND [id number] 13:32:00 Test Item Value Reference Range Interpretation Comments HEMOGLOBIN (BEAKER) (test code = 7.5 GM/DL 11.2-15.7 L 410) HEMATOCRIT (BEAKER) (test code = 24.7 % 34.1-44.9 L 411) Shop Hand ID - 6000Operator ID - 6000POCT-GLUCOSE [id number] 12:20:00 Test Item Value Reference Range Interpretation Comments POC-GLUCOSE METER 226 mg/dL 70-110 H : [facility] (MITA) (test code = MICHEL Royal [facility], 1538) [address]: Shop Hand/Techni sanjeev ID = [id number] for ONELIA REGALADO SARS-COV2/RT-PCR ([facility])2021-01-14 10:06:00 Test Item Value Reference Range Interpretation Comments SARS-COV2/RT-PCR (test Negative Not Detected, Negative, code = 4382388) See external report for linked test SARS-COV-2 PERFORMING LAB [facility] (test code = 6266514) Negative result for this test determines that [...] 564(g) of the Act.Fact Sheet for Healthcare Providers:https://www.TrackTik/sites/default/files/product/documents/Fact_Shee z_QK_Sznpdplbw_Exjo_QFLQ-LvF-8.pdfFact Sheet for Healthcare Patients:https://www.[employer]/sites/default/files/product/ documents/Qooz_Knfqd_Psnpshyr_Ccxj_FWHE-BfP-3.pdfPerforming Laboratory:[address], [place] [address]OPMP-DHCTPIG METER 2021-01-14 06:19:00 Test Item Value Reference Range Interpretation Comments POC-GLUCOSE METER 139 mg/dL 70-110 H : Notified RN/MD: (MITA) (test code = TESTED AT [facility] 6720 1538) [facility], [address]: Shop Hand/Techni sanjeev ID = [id number] for ANSON COSME [id number] 06:10:00 Test Item Value Reference Range Interpretation Comments FERRITIN (BEAKER) (test code = 14.20 ng/mL 5.00-275.00 361) Shop Hand ID - MAGDIEL MBASIC METABOLIC [id number] 05:50:00 Test Item Value Reference Range Interpretation Comments SODIUM (BEAKER) 135 meq/L 136-145 L (test code = 381) POTASSIUM (BEAKER) 4.2 meq/L 3.5-5.1 (test code = 379) CHLORIDE (BEAKER) 107 meq/L 98-107 (test code = 382) CO2 (BEAKER) (test 21 meq/L 22-29 L code = 355) BLOOD UREA NITROGEN 7 mg/dL 7-21 (BEAKER) (test code = 354) CREATININE (BEAKER) 0.78 mg/dL 0.57-1.25 (test code = 358) GLUCOSE RANDOM 128 mg/dL 70-105 H (BEAKER) (test code = 652) CALCIUM (BEAKER) 8.1 mg/dL 8.4-10.2 L (test code = 697) EGFR (BEAKER) (test 77 mL/min/1.73 ESTIMA GABY GFR IS code = 1092) sq m NOT ACCURATE CREATININE CLEARANCE IN PREDICTING GLOMERULAR FILTRATION RATE . ESTIMATED GFR I S NOT APPLICABLE FOR DIALYSIS PATIEN TS. Shop Hand ID - MAGDIEL DANTE, TIBC, % SAT. (WITHOUT FERRITIN)2021-01-14 05:49:00 Test Item Value Reference Range Interpretation Comments IRON (BEAKER) (test code = 547) 57.0 ug/dL 40.0-160.0 TOTAL IRON BINDING CAPACITY 351 ug/dL 250-450 (BEAKER) (test code = 769) IRON % SATURATION (2) (BEAKER) 16 % 20-55 L (test code = 2590) Shop Hand ID - MAGDIEL MCBC W/PLT COUNT & AUTO [id number] 05:25:00 Test Item Value Reference Range Interpretation Comments WHITE BLOOD CELL COUNT (BEAKER) 2.6 K/ L 3.5-10.5 L (test code = 775) RED BLOOD CELL COUNT (BEAKER) 2.62 M/ L 3.93-5.22 L (test code = 761) HEMOGLOBIN (BEAKER) (test code = 7.0 GM/DL 11.2-15.7 L 410) HEMATOCRIT (BEAKER) (test code = 23.4 % 34.1-44.9 L 411) MEAN CORPUSCULAR VOLUME (BEAKER) 89.3 fL 79.4-94.8 (test code = 753) MEAN CORPUSCULAR HEMOGLOBIN 26.7 pg 25.6-32.2 (BEAKER) (test code = 751) MEAN CORPUSCULAR HEMOGLOBIN CONC 29.9 GM/DL 32.2-35.5 L (BEAKER) (test code = 752) RED CELL DISTRIBUTION WIDTH 18.1 % 11.7-14.4 H (BEAKER) (test code = 412) PLATELET COUNT (BEAKER) (test code 38 K/CU MM 150-450 L = 756) MEAN PLATELET VOLUME (BEAKER) 11.4 fL 9.4-12.3 (test code = 754) NUCLEATED RED BLOOD CELLS (BEAKER) 0 /100 WBC 0-0 (test code = 413) NEUTROPHILS RELATIVE PERCENT 50 % (BEAKER) (test code = 429) LYMPHOCYTES RELATIVE PERCENT 31 % (BEAKER) (test code = 430) MONOCYTES RELATIVE PERCENT 13 % (BEAKER) (test code = 431) EOSINOPHILS RELATIVE PERCENT 5 % (BEAKER) (test code = 432) BASOPHILS RELATIVE PERCENT 0 % (BEAKER) (test code = 437) NEUTROPHILS ABSOLUTE COUNT 1.29 K/ L 1.56-6.13 L (BEAKER) (test code = 670) LYMPHOCYTES ABSOLUTE COUNT 0.79 K/ L 1.18-3.74 L (BEAKER) (test code = 414) MONOCYTES ABSOLUTE COUNT (BEAKER) 0.33 K/ L 0.24-0.36 (test code = 415) EOSINOPHILS ABSOLUTE COUNT 0.13 K/ L 0.04-0.36 (BEAKER) (test code = 416) BASOPHILS ABSOLUTE COUNT (BEAKER) 0.01 K/ L 0.01-0.08 (test code = 417) IMMATURE GRANULOCYTES-RELATIVE 0 % 0-1 PERCENT (BEAKER) (test code = 2801) POCT-GLUCOSE [id number] 00:46:00 Test Item Value Reference Range Interpretation Comments POC-GLUCOSE METER 197 mg/dL 70-110 H : TESTED A T [facility] 6720 (BEAKER) (test code = [facility], 1538) [address]: Shop Hand/Techni sanjeev ID = [id number] for ANSON COSME HEMOGLOBIN AND [id number] 20:51:00 Test Item Value Reference Range Interpretation Comments HEMOGLOBIN (BEAKER) (test code = 7.1 GM/DL 11.2-15.7 L 410) HEMATOCRIT (BEAKER) (test code = 23.7 % 34.1-44.9 L 411) Shop Hand ID - 6000Operator ID - 6000POCT-GLUCOSE [id number] 17:42:00 Test Item Value Reference Range Interpretation Comments POC-GLUCOSE METER 230 mg/dL 70-110 H : TESTED A T [facility] 6720 (BEAKER) (test code = [facility], 1538) [address]: Shop Hand/Techni sanjeev ID = [id number] for ONELIA REGALADO U/S, ABDOMINAL, [id number] 17:38:00Reason for exam:->cirrhosis, evaluate for ascites [facility] : 1965 Sex: FFINAL REPORT TECHNIQUE: Grayscale ultrasound of the four quadrants of the abdomen. INDICATION: cirrhosis, evaluate for ascites. COMPARISON: Ultrasound from 12/09/2020. FINDINGS: No ascites is visualized. Signed: Jesus Cormier Verified Date/Time: 01/13/2021 17:38:54 Reading Location: [address] Body Reading Room HEMOGLOBIN AND [id number] 14:37:00 Test Item Value Reference Range Interpretation Comments HEMOGLOBIN (BEAKER) (test code = 7.9 GM/DL 11.2-15.7 L 410) HEMATOCRIT (BEAKER) (test code = 26.0 % 34.1-44.9 L 411) Shop Hand ID - 6000POCT-GLUCOSE [id number] 12:56:00 Test Item Value Reference Range Interpretation Comments POC-GLUCOSE METER 175 mg/dL 70-110 H : TESTED A T [facility] 6720 (BEAKER) (test code = MICHEL [place], 1538) [address]: Shop Hand/Techni sanjeev ID = [id number] for ONELIA REGALADO POCT-GLUCOSE [id number] 11:47:00 Test Item Value Reference Range Interpretation Comments POC-GLUCOSE METER 176 mg/dL 70-110 H : TESTED A T [facility] 6720 (BEAKER) (test code SAMMY [place], = 1538) [address]: Shop Hand/Techni sanjeev ID = [id number] for Dianelys xiong (pca2)Arlette [id number] 07:14:00 Test Item Value Reference Range Interpretation Comments LIPASE (BEAKER) (test code = 749) 155 U/L 8-78 H Shop Hand ID - BSBASI METABOLIC [id number] 06:38:00 Test Item Value Reference Range Interpretation Comments SODIUM (BEAKER) 140 meq/L 136-145 (test code = 381) POTASSIUM (BEAKER) 5.0 meq/L 3.5-5.1 (test code = 379) CHLORIDE (BEAKER) 111 meq/L 98-107 H (test code = 382) CO2 (BEAKER) (test 21 meq/L 22-29 L code = 355) BLOOD UREA NITROGEN 8 mg/dL 7-21 (BEAKER) (test code = 354) CREATININE (BEAKER) 0.79 mg/dL 0.57-1.25 (test code = 358) GLUCOSE RANDOM 158 mg/dL 70-105 H (BEAKER) (test code = 652) CALCIUM (BEAKER) 7.7 mg/dL 8.4-10.2 L (test code = 697) EGFR (BEAKER) (test 76 mL/min/1.73 ESTIMA GABY GFR IS code = 1092) sq m NOT ACCURATE CREATININE CLEARANCE IN PREDICTING GLOMERULAR FILTRATION RATE . ESTIMATED GFR I S NOT APPLICABLE FOR DIALYSIS PATIEN TS. Shop Hand ID - MAGDIEL EPATIC FUNCTION [id number] 06:15:00 Test Item Value Reference Range Interpretation Comments TOTAL PROTEIN (BEAKER) (test code = 6.4 gm/dL 6.0-8.3 770) ALBUMIN (BEAKER) (test code = 1145) 3.3 g/dL 3.5-5.0 L BILIRUBIN TOTAL (BEAKER) (test code 0.5 mg/dL 0.2-1.2 = 377) BILIRUBIN DIRECT (BEAKER) (test 0.3 mg/dL 0.1-0.5 code = 706) ALKALINE PHOSPHATASE (BEAKER) (test 93 U/L 40-150 code = 346) AST (SGOT) (BEAKER) (test code = 28 U/L 5-34 353) ALT (SGPT) (BEAKER) (test code = 21 U/L 6-55 347) Shop Hand ID - MAGDIEL MPROTHROMBIN TIME/[id number] 05:42:00 Test Item Value Reference Range Interpretation Comments PROTIME (BEAKER) 15.2 seconds 11.9-14.2 H (test code = 759) INR (BEAKER) (test 1.22 See_Comment [Automat ed message] code = 370) The system [employer] / [employer] generated this result transmitted ref erence range: <=5.90. The reference range was not used to int erpret this result as normal/abnormal . RECOMMENDED COUMADIN/WARFARIN INR THERAPY RANGESSTANDARD DOSE: 2.0 - 3.0 Includes: PROPHYLAXIS forvenous thrombosis, systemic embolization; TREATMENT for venous thrombosis and/or pulmonary embolus.HIGH RISK: Target INR is 2.5-3.5 for patients with mechanical heart valves.CBC W/PLT COUNT & AUTO DIFFERENTIAL 2021-01-13 05:37:00 Test Item Value Reference Range Interpretation Comments WHITE BLOOD CELL COUNT (BEAKER) 4.3 K/ L 3.5-10.5 (test code = 775) RED BLOOD CELL COUNT (BEAKER) 2.97 M/ L 3.93-5.22 L (test code = 761) HEMOGLOBIN (BEAKER) (test code = 7.9 GM/DL 11.2-15.7 L 410) HEMATOCRIT (BEAKER) (test code = 26.2 % 34.1-44.9 L 411) MEAN CORPUSCULAR VOLUME (BEAKER) 88.2 fL 79.4-94.8 (test code = 753) MEAN CORPUSCULAR HEMOGLOBIN 26.6 pg 25.6-32.2 (BEAKER) (test code = 751) MEAN CORPUSCULAR HEMOGLOBIN CONC 30.2 GM/DL 32.2-35.5 L (BEAKER) (test code = 752) RED CELL DISTRIBUTION WIDTH 18.5 % 11.7-14.4 H (BEAKER) (test code = 412) PLATELET COUNT (BEAKER) (test code 26 K/CU MM 150-450 L = 756) MEAN PLATELET VOLUME (BEAKER) 11.9 fL 9.4-12.3 (test code = 754) NUCLEATED RED BLOOD CELLS (BEAKER) 0 /100 WBC 0-0 (test code = 413) NEUTROPHILS RELATIVE PERCENT 74 % (BEAKER) (test code = 429) LYMPHOCYTES RELATIVE PERCENT 13 % (BEAKER) (test code = 430) MONOCYTES RELATIVE PERCENT 11 % (BEAKER) (test code = 431) EOSINOPHILS RELATIVE PERCENT 2 % (BEAKER) (test code = 432) BASOPHILS RELATIVE PERCENT 0 % (BEAKER) (test code = 437) NEUTROPHILS ABSOLUTE COUNT 3.14 K/ L 1.56-6.13 (BEAKER) (test code = 670) LYMPHOCYTES ABSOLUTE COUNT 0.56 K/ L 1.18-3.74 L (BEAKER) (test code = 414) MONOCYTES ABSOLUTE COUNT (BEAKER) 0.45 K/ L 0.24-0.36 H (test code = 415) EOSINOPHILS ABSOLUTE COUNT 0.09 K/ L 0.04-0.36 (BEAKER) (test code = 416) BASOPHILS ABSOLUTE COUNT (BEAKER) 0.01 K/ L 0.01-0.08 (test code = 417) IMMATURE GRANULOCYTES-RELATIVE 0 % 0-1 PERCENT (BEAKER) (test code = 2801) Blood Culture # 20:01:00 Test Item Value Reference Range Interpretation Comments Result (test code = No growth in 5 days 6463-4) [facility] [id number] 20:01:00 Test Item Value Reference Range Interpretation Comments CULTURE (BEAKER) (test No growth in 5 days code = 1095) BLOOD [id number] 20:01:00 Test Item Value Reference Range Interpretation Comments CULTURE (BEAKER) (test No growth in 5 days code = 1095) Drug screen, urine, [id number] 14:34:00See scanned reportCHI Santa [facility] Cottage HospitalPrepare Leuko-Red [id number] 23:54:00 Test Item Value Reference Range Interpretation Comments Unit ABO (test code = 7805749) A Pos UNIT NUMBER (test code = [id number] 934-0) Status (test code = 4305645) [place]_TIMEINCHART Blood Bank Product (test code PLATELETS = 2263) PRODUCT CODE (test code = L3164B97 933-2) [facility] [id number] 14:17:00 Test Item Value Reference Range Interpretation Comments CROSSMATCH (test code = COMPATIBLE 2264) Unit ABO (test code = A Pos 3337187) UNIT NUMBER (test code = [id number] 934-0) Status (test code = 5044690) WORK IN PROGRESS Blood Bank Product (test RED BLOOD CELLS code = 2263) PRODUCT CODE (test code = N4194L94 933-2) [facility]Com[facility] [id number] 06:58:00 Test Item Value Reference Range Interpretation Comments Protein, Total (test 6.1 See_Comment [Autom ated code = 2885-2) message] The system which generated this result transmit gaby reference range : 6.0 - 8.3 gm/dL . The reference range was not u sed to interpret th is result as normal/abnormal . Albumin (test code = 3.0 g/dL 3.5-5 L 15609-7) Alkaline Phosphatase 94 U/L 40-150 (test code = 6768-6) Total Bilirubin (test 0.5 mg/dL 0.2-1.2 code = 1975-2) Sodium (test code = 140 meq/L 127-927 7836-2) Potassium (test code 4.2 meq/L 3.5-5.1 = 2823-3) Chloride (test code = 107 meq/L 98-107 2075-0) CO2 (test code = 24 meq/L 22-29 2028-9) BUN (test code = 4 mg/dL 7-21 L 3094-0) Creatinine (test code 0.97 mg/dL 0.57-1.25 = 2160-0) Glucose (test code = 175 mg/dL 70-105 H 2345-7) Calcium (test code = 8.0 mg/dL 8.4-10.2 L 69874-2) AST (test code = 19 U/L 5-34 1920-8) ALT (test code = 16 U/L 6-55 1742-6) EGFR (test code = 60 mL/min/1.73 [place] [address]-2) NOT ACCURATE CREATININE CLEARANCE IN PREDICTING GLOMERULAR FILTRATION RATE . ESTIMATED GFR I S NOT APPLICABLE FOR DIALYSIS PATIEN TS. JULIAN (test code = JULIAN) Shop Hand ID - MARCUS W Lab Interpretation Abnormal (test code = 70057-2) [facility] HospitalCOMPRE[facility]ENSIVE METABOLIC [id number] 06:58:00 Test Item Value Reference Range Interpretation [...] S NOT APPLICABLE FOR DIALYSIS PATIEN TS. Shop Hand ID Joaquin VELAZQUEZ WProthrombin time/[id number] 06:30:00 Test Item Value Reference Interpretation Comments Range Protime (test code = 16.1 See_Comment H [Autom ated 5902-2) message] The system which generated this result transmitted reference range : 11.9 - 14.2 seconds. The reference range was not used to interpret this result as normal/abnormal . INR (test code = 1.31 See_Comment [Automated 4411-6) message] The system which generated this result [...] valves. Lab Interpretation Abnormal (test code = 29041-1) [facility]/[id number] 06:30:00 Test Item Value Reference Range Interpretation Comments PROTIME (BEAKER) 16.1 seconds 11.9-14.2 H (test code = 759) INR (BEAKER) (test 1.31 See_Comment [Automat ed message] code = 370) The system [employer] / [employer] generated this result transmitted ref erence range: [...] See_Comment L [A utomated message] The system [employer] / [employer] generated this result transmitted ref erence range: 3.5 - 10 .5 K/L. The refe rence range was not u sed to interpret this result as normal/abnor mal. RBC (test code = 789-8) 2.52 See_Comment L [Au tomated message] The system [employer] / [employer] generated this result transmitted ref erence range: 3.93 - 5 .22 M/L. The refe rence range was not u sed to interpret this result as normal/abnor mal. MCHC (test code = 786-4) 31.0 See_Comment L [A utomated message] The system [employer] / [employer] generated this result transmitted ref erence range: [...] = 50 See_Comment L [Aut omated message] 777-3) The system [employer] / [employer] generated this result transmitted ref erence range: 150 - 45 0 K/CU MM. The referen ce range was not u sed to interpret this result as normal/abnor mal. MPV (test code = 11.3 fL 9.4-12.3 60688-0) nRBC (test code = 413) 0 See_Comment [Aut omated message] The system [employer] / [employer] generated this result transmitted ref erence range: [...] See_Comment [Aut omated message] 670) The system [employer] / [employer] generated this result transmitted ref erence range: 1.56 - 6 .13 K/L. The refe rence range was not u sed to interpret this result as normal/abnor mal. # Lymphs (test code = 0.62 See_Comment L [Auto mated message] 414) The system [employer] / [employer] generated this result transmitted ref erence range: 1.18 - 3 .74 K/L. The refe rence range was not u sed to interpret this result as normal/abnor mal. # Monos (test code = 0.35 See_Comment [Autom ated message] 415) The system [employer] / [employer] generated this result transmitted ref erence range: 0.24 - 0 .36 K/L. The refe rence range was not u sed to interpret this result as normal/abnor mal. # Eos (test code = 416) 0.11 See_Comment [Au tomated message] The system [employer] generated this result transmitted ref erence range: 0.04 - 0 .36 K/L. The refe rence range was not u sed to interpret this result as normal/abnor mal. # Baso (test code = 417) 0.01 See_Comment [A utomated message] The system [employer] generated this result transmitted ref erence range: 0.01 - 0 .08 K/L. The refe rence range was not u sed to interpret this result as normal/abnor mal. Immature 0 % 0-1 Granulocytes-Relative (test code = 2801) Lab Interpretation (test Abnormal code = 26394-8) [facility] W/PLT COUNT & AUTO [id number] 06:19:00 Test Item Value Reference Range Interpretation [...] 0-1 PERCENT (BEAKER) (test code = 2801) POC-Glucose [id number] 21:39:00 Test Item Value Reference Range Interpretation Comments POC-Glucose Meter (test 319 mg/dL 70-110 H : TE STED AT [facility] code = 1538) [address] [facility], [address]70 30: Shop Hand/Techni sanjeev ID = [id number] for OCTAVIA MAGAÑA Lab Interpretation (test Abnormal code = 53871-8) [facility] [id number] 21:39:00 Test Item Value Reference Range Interpretation Comments POC-GLUCOSE METER 319 mg/dL 70-110 H : [facility] (test code = [facility], 1538) [address]: Shop Hand/Techni sanjeev ID = [id number] for OCTAVIA HOPKINS RA POCT-GLUCOSE [id number] 16:32:00 Test Item Value Reference Range Interpretation Comments POC-GLUCOSE METER 145 mg/dL 70-110 H : [facility] [facility] (BEAKER) (test code = [facility], 1538) [address]: Shop Hand/Techni sanjeev ID = [id number] for NILDA MCKINNEY (V), NATASHA Type and screen, evaeqigfl4286-45-38 08:50:00 Test Item Value Reference Range Interpretation Comments ABO/RH AUTOMATED (BEAKER) (test A POSITIVE code = 2260) Ab Scrn (test code = 890-4) NEGATIVE [facility]COM[facility]OL[facility] [id number] 06:07:00 Test Item Value Reference Range Interpretation Comments TOTAL PROTEIN 5.7 gm/dL 6.0-8.3 L (BEAKER) (test code = 770) ALBUMIN (BEAKER) 2.9 g/dL 3.5-5.0 L (test code = 1145) ALKALINE PHOSPHATASE 102 U/L 40-150 (BEAKER) (test code = 346) [...] S NOT APPLICABLE FOR DIALYSIS PATIEN TS. Shop Hand ID - MAGDIEL YWejffxieo5642-08-49 05:52:00 Test Item Value Reference Range Interpretation Comments Magnesium (test code = 1.4 mg/dL 1.6-2.6 L 40252-8) JULIAN (test code = JULIAN) Shop Hand ID - MAGDIEL M Lab Interpretation (test Abnormal code = 29035-6) [facility] 05:52:00 Test Item Value Reference Range Interpretation Comments MAGNESIUM (BEAKER) (test code = 1.4 mg/dL 1.6-2.6 L 627) Shop Hand ID Joaquin VELOZ MPROTHROMBIN TIME/[id number] 05:27:00 Test Item Value Reference Range Interpretation Comments PROTIME (BEAKER) 16.8 seconds 11.9-14.2 H (test code = 759) INR (BEAKER) (test 1.38 See_Comment [Automat ed message] code = 370) The system [employer] / [employer] generated this result transmitted ref erence range: <=5.90. The reference range was not used to int erpret this result as normal/abnormal . RECOMMENDED COUMADIN/WARFARIN INR THERAPY RANGESSTANDARD DOSE: 2.0 - 3.0 Includes: PROPHYLAXIS forvenous thrombosis, systemic embolization; TREATMENT for venous thrombosis and/or pulmonary embolus.HIGH RISK: Target INR is 2.5-3.5 for patients with mechanical heart valves.Hemoglobin and mlllsqnwox9405-22-05 05:23:00 Test Item Value Reference Range Interpretation Comments Hemoglobin (test code = 7.0 See_Comment L [Au tomated message] 786-4) The system [employer] / [employer] generated this result transmitted ref erence range: 11.2 - 1 5.7 GM/DL. The refe rence range was not u sed to interpret this result as normal/abnor mal. Hematocrit (test code = 23.8 % 34.1-44.9 L 4544-3) Lab Interpretation (test Abnormal code = 21067-1) [facility]CBC [facility]T COUNT & AUTO [id number] 05:23:00 Test Item Value Reference Range Interpretation [...] (BEAKER) (test code = 2801) HEMOGLOBIN AND [id number] 05:23:00 Test Item Value Reference Range Interpretation Comments HEMOGLOBIN (BEAKER) (test code = 7.0 GM/DL 11.2-15.7 L 410) HEMATOCRIT (BEAKER) (test code = 23.8 % 34.1-44.9 L 411) HEMOGLOBIN AND [id number] 18:32:00 Test Item Value Reference Range Interpretation Comments HEMOGLOBIN (BEAKER) (test code = 8.5 GM/DL 11.2-15.7 L 410) HEMATOCRIT (BEAKER) (test code = 28.2 % 34.1-44.9 L 411) Shop Hand ID - [id number]-CoV2/RT-PCR (Asymptomatic ONLY)2020-12-22 11:29:00 Test Item Value Reference Range Interpretation Comments SARS-COV2/RT-PCR Negative Not Detected, (test code = Negative, See 28830-8) external report for linked test SARS-COV-2 [facility] (test code = 22501-6) JULIAN (test code = Negative result for [...] of the Act. Fact Sheet for Healthcare Providers:https://www.PaperShare.Melodeo/sites/default/f raeann/product/documents/F act_Sheet_HC_Providers_L ejt_QIRH-RxX-0.pdf Fact Sheet for Healthcare Patients:https://www.[employer]/sites/default/fi les/product/documents/Fa ct_Sheet_Patients_Lyra_S ARS-CoV-2.pdf Performing Laboratory:[facility] [place] [place] [address] [facility] ([facility])2020-12-22 11:29:00 Test Item Value Reference Range Interpretation Comments SARS-COV2/RT-PCR (test Negative Not Detected, Negative, code = 1722464) See external report for linked test SARS-COV-2 PERFORMING LAB [facility] GIN (test code = 8246502) Negative result for this test determines that [...] 564(g) of the Act.Fact Sheet for Healthcare Providers:https://www.TrackTik/sites/default/files/product/documents/Fact_Shee o_YR_Jtsmlmafv_Poxr_BJTI-OnU-1.pdfFact Sheet for Healthcare Patients:https://www.Track[employer]ik/sites/default/files/product/ documents/Pqyr_Lqwth_Zxqhyqku_Qyyq_RZQH-PoW-2.pdfPerforming Laboratory:[facility] [place], [place] [address]PDKG-CZZCKEQ METER 2020-12-22 05:38:00 Test Item Value Reference Range Interpretation Comments POC-GLUCOSE METER 142 mg/dL 70-110 H : TESTED A T [facility] 6720 (BEAKER) (test code = MICHEL Royal [facility], 1538) [address]: Shop Hand/Techni sanjeev ID = [id number] for Kaylynn Dill Basic metabolic wjwxd8941-08-21 04:34:00 Test Item Value Reference Range Interpretation Comments Sodium (test code = 137 meq/L 850-134 3588-2) Potassium (test code = 5.1 meq/L 3.5-5.1 2823-3) Chloride (test code = 111 meq/L 98-107 H 2075-0) CO2 (test code = 19 meq/L 22-29 L 2028-9) BUN (test code = 6 mg/dL 7-21 L 3094-0) Creatinine (test code 1.06 mg/dL 0.57-1.25 = 2160-0) Glucose (test code = 138 mg/dL 70-105 H 2345-7) Calcium (test code = 8.3 mg/dL 8.4-10.2 L 16455-2) EGFR (test code = 54 mL/min/1.73 [place] [address]-1) NOT ACCURATE CREATININE CLEARANCE IN PREDICTING GLOMERULAR FILTRATION RATE . ESTIMATED GFR I S NOT APPLICABLE FOR DIALYSIS PATIENTS. JULIAN (test code = JULIAN) Shop Hand ID - MARCUS Niño Lab Interpretation Abnormal (test code = 09989-2) [facility] HospitalHepatic function pgybj7903-79-92 04:34:00 Test Item Value Reference Range Interpretation Comments Protein, Total (test 6.2 See_Comment [Autom ated code = 2885-2) message] The system which generated this result transmit gaby reference range : 6.0 - 8.3 gm/dL . The reference range was not u sed to interpret th is result as normal/abnormal . Albumin (test code = 3.0 g/dL 3.5-5 L 51714-5) Total Bilirubin (test 0.7 mg/dL 0.2-1.2 code = 1975-2) Bilirubin, Direct 0.4 mg/dL 0.1-0.5 (test code = 1967-7) Alkaline Phosphatase 105 U/L 40-150 (test code = 6768-6) AST (test code = 34 U/L 5-34 1920-8) ALT (test code = 26 U/L 6-55 1742-6) JULIAN (test code = JULIAN) Shop Hand ID - MARCUS W Lab Interpretation Abnormal (test code = 11334-2) [facility] HospitalPhosphorus2021-07-23 04:34:00 Test Item Value Reference Range Interpretation Comments Phosphorus (test code = 3.3 mg/dL 2.3-4.7 2777-1) JULIAN (test code = JULIAN) Shop Hand ID - MARCUS W Lab Interpretation (test Normal code = 79175-2) [facility] HospitalBASIC METABOLIC [id number] 04:34:00 Test Item Value Reference Range Interpretation [...] S NOT APPLICABLE FOR DIALYSIS PATIEN TS. Shop Hand ID Joaquin VELAZQUEZ HQFHBUYKGE4518-53-56 04:34:00 Test Item Value Reference Range Interpretation Comments MAGNESIUM (BEAKER) (test code = 1.3 mg/dL 1.6-2.6 L 627) Shop Hand ID - MARCUS [id number] 04:34:00 Test Item Value Reference Range Interpretation Comments PHOSPHORUS (BEAKER) (test code = 3.3 mg/dL 2.3-4.7 604) Shop Hand ID Joaquin VELAZQUEZ WHEPATIC FUNCTION [id number] 04:34:00 Test Item Value Reference Range Interpretation [...] (test code = 26 U/L 6-55 347) Shop Hand ID Joaquin VELAZQUEZ WCBC W/PLT COUNT & AUTO [id number] 04:18:00 Test Item Value Reference Range Interpretation [...] PERCENT (BEAKER) (test code = 2801) POCT-GLUCOSE [id number] 01:24:00 Test Item Value Reference Range Interpretation Comments POC-GLUCOSE METER 121 mg/dL 70-110 H : TESTED Pedro Wade [facility] 6720 (BEAKER) (test code = MICHEL ENGEL [place], 1538) [address]: Shop Hand/Techni sanjeev ID = [id number] for Kaylynn Dill [id number] 19:21:00 Test Item Value Reference Range Interpretation Comments PTT (test code = 01801-6) 29.1 See_Comment [ Automated message] The system [employer] / [employer] generated this result transmitted ref erence range: 22.5 - 3 6.0 seconds. The re ference range was not u sed to interpret this result as normal/abnor mal. Lab Interpretation (test Normal code = 80495-9) [facility] HospitalAPTT2021-07-[facility] 19:21:00 Test Item Value Reference Range Interpretation Comments PARTIAL THROMBOPLASTIN TIME 29.1 seconds 22.5-36.0 (BEAKER) (test code = 760) Lactic acid, venous [id number] 19:20:00 Test Item Value Reference Range Interpretation Comments Lactate, Venous (test 1.18 mmol/L 0.5-2.2 Specim en code = 2872) markedly hemolyzed JULIAN (test code = JULIAN) Shop Hand ID - DB Lab Interpretation Normal (test code = 53273-9) [facility] HospitalLACTIC ACID, [id number] 19:20:00 Test Item Value Reference Range Interpretation Comments LACTATE BLOOD VENOUS 1.18 mmol/L 0.50-2.20 Specime n markedly (2) (BEAKER) (test hemolyzed code = 2872) Shop Hand ID - DBPROTHROMBIN TIME/[id number] 19:19:00 Test Item Value Reference Range Interpretation Comments PROTIME (BEAKER) 15.4 seconds 11.9-14.2 H (test code = 759) INR (BEAKER) (test 1.24 See_Comment [Automat ed message] code = 370) The system [employer] / [employer] generated this result transmitted ref erence range: <=5.90. The reference range was not used to int erpret this result as normal/abnormal . RECOMMENDED COUMADIN/WARFARIN INR THERAPY RANGESSTANDARD DOSE: 2.0 - 3.0 Includes: PROPHYLAXIS forvenous thrombosis, systemic embolization; TREATMENT for venous thrombosis and/or pulmonary embolus.HIGH RISK: Target INR is 2.5-3.5 for patients with mechanical heart valves.Nvvshqz3455-11-73 19:16:00 Test Item Value Reference Range Interpretation Comments Ammonia (test code = 21 See_Comment [place] n 52[address]-6) moderately hemolyzed [Automated message] The system which generated this result transmit gaby reference range : 18 - 72 mol/L . The reference range was not u sed to interpret th is result as normal/abnormal . JULIAN (test code = JULIAN) Shop Hand ID - DB Lab Interpretation Normal (test code = 36274-1) [facility] HospitalAMMONIA2021-07-22 19:16:00 Test Item Value Reference Range Interpretation Comments AMMONIA (BEAKER) 21 mol/L 18-72 Specimen mo derately (test code = 348) hemolyzed Shop Hand ID - DBBASIC METABOLIC [id number] 16:19:00 Test Item Value Reference Range Interpretation [...] S NOT APPLICABLE FOR DIALYSIS PATIEN TS. Shop Hand ID - DBHEPATIC FUNCTION [id number] 16:19:00 Test Item Value Reference Range Interpretation [...] (test code = 36 U/L 6-55 347) Shop Hand ID - DBCBC W/PLT COUNT & AUTO [id number] 16:00:00 Test Item Value Reference Range Interpretation [...] (BEAKER) (test code = 2801) BASIC METABOLIC [id number] 14:31:00 Test Item Value Reference Range Interpretation [...] S NOT APPLICABLE FOR DIALYSIS PATIEN TS. Shop Hand ID - PIAYA LHEPATIC FUNCTION [id number] 14:31:00 Test Item Value Reference Range Interpretation [...] (test code = 31 U/L 6-55 347) Shop Hand ID - DENA LPROTHROMBIN TIME/[id number] 14:12:00 Test Item Value Reference Range Interpretation Comments PROTIME (BEAKER) 15.2 seconds 11.9-14.2 H (test code = 759) INR (BEAKER) (test 1.22 See_Comment [Automat ed message] code = 370) The system [employer] / [employer] generated this result transmitted ref erence range: [...] (BEAKER) (test code = 2801) please check igjhgwnurgjvitzjcy4672-61-08 12:14:00Scan ResultQUEST NON- INTERFACED LABCHI [facility] HospitalZinc2021-07-17 19:10:00 Test Item Value Reference Interpretation Comments Range Zinc (test code = 47 See_Comment L This test was ) developed and i ts analytical performance characteristics have been determined by [facility] martha. It has not been cleared or appr [...] JULIAN (test code = Performing Lab JULIAN) *MIKE [employer] [facility], [address] [place] [address] Sheri Mccall MD Lab Interpretation Abnormal (test code = 40956-7) [facility] HospitalCopper2021-07-17 11:43:00 Test Item Value Reference Range Interpretation Comments Copper (test 118 See_Comment This test was code = developed and i ts ) analytical perf ormance characteristics have been determined by [employer]. It has not been cl eared or approved by theA. This assay has been validated pursu ant to the CLIA regula tions and is used for clinical purpos es. [Automated mess age] The system [employer] / [employer] generated this result transmitted ref erence range: 70 - 175 mcg/dL. The ref erence range was not u sed to interpret this result as normal/abnor mal. JULIAN (test code Performing Lab = JULIAN) *MIKE [employer] [facility], [address] [place] [id number] T Stefany NULL [facility] HospitalANTI-MITOCHONDRIAL AB, REFLEX TO [id number] 07:43:00 Test Item Value Reference Range Interpretation Comments SCAN RESULT (test code = 9835763) Anti-Mitochondrial Ab, reflex to [id number] 07:43:00Scan ResultQUEST DIAGNOSTIC INCORPORATEDLos [facility] Community HospitalHepatitis B e antibody 2020-12-14 20:25:00 Test Item Value Reference Range Interpretation Comments Hep Be NONREACTIVE REFERENCE RANG E: Ab(Anti-Hbe) NONREACTIVE For (test code = additional 5258354) information, pl ease refer tohttp://educat ion.q SyntensiaestMichelle Kaufmann Designss .Melodeo/ faq/YTK906(This link is being provid ed for informational/e ducat ional purposes only.) JULIAN (test code Performing Lab = JULIAN) *QDID [employer] [facility] [address] [place] [address] Chalo Burnham MD [facility] HospitalBLOOD [id number] 20:01:00 Test Item Value Reference Range Interpretation Comments CULTURE (BEAKER) (test No growth in 5 days code = 1095) BLOOD [id number] 20:01:00 Test Item Value Reference Range Interpretation Comments CULTURE (BEAKER) (test No growth in 5 days code = 1095) Mitochondrial Ab [id number] 12:49:00 Test Item Value Reference Range Interpretation Comments Anti-Mitocho NEGATIVE NEGATIVE This test was developed nd Abs (test and its analyti iglesia code = performance 4099781) characteristics havebeen determined by [facility] uaAntelope Valley Hospital Medical Centeristrsusan [facility]. [facility].It h as not been cleared or approved by FDA. This as say has been validatedp ursuant to the CLIA reg ulations and is used for clinical purposes. JULIAN (test Performing Lab code = JULIAN) EZ [employer] [facility] [address] [place] [address] Chip Mckeon MD, PhD, [facility] MedicineMitochondrial Ab [id number] 12:49:00 Test Item Value Reference Range Interpretation Comments Mitochondrial Ab TNP See_Comment Test Not Titer (test code = Performed . 3981211) Screening test Negative or Not Detected. Titer notperformed. [Automated message] The system which generated this result transmitted reference range : <1:20. The reference range was not used to interpret this result as normal/abnormal . JULIAN (test code = Performing Lab JULIAN) [employer] [facility] [address] [place] [address] Chip Mckeon MD, PhD, [facility] MedicineActin (Smooth Muscle) Antibody, [id number] 22:22:00 Test Item Value Reference Range Interpretation Comments Anti-Smooth <20 See Note: U Reference Range :<20 Muscle Ab NEGATIVE> O R = 20 (test code = POSITIVE Antibo dies 6245561) recognizing act in are the main compon [...] JULIAN (test code Performing Lab = JULIAN) [employer] [facility] [address] [place] [address] Chip Mckeon MD, PhD, [facility] MedicinePOCT-GLUCOSE [id number] 16:42:00 Test Item Value Reference Range Interpretation Comments POC-GLUCOSE METER 195 mg/dL 70-110 H : TESTED A T [facility] 6720 (BEAKER) (test code [facility], = 1538) [address]: Shop Hand/Techni sanjeev ID = [id number] for HEATHER DUNLAP Hepatitis B e [id number] 16:32:00 Test Item Value Reference Range Interpretation Comments Hep Be Ag NONREACTIVE REFERENCE RANG ES: (Antigen) NONREACTIVE For (test code = additional 9178399) information, pl ease refer tohttp://educat ion.Limecraft/ faq/HFA348(This link is being provid ed for informational/e ducat ional purposes only.) JULIAN (test code Performing Lab = JULIAN) *QDID [employer] [facility] [address] [place] [address] H Dinesh Burnham MD [facility] HospitalCarbohydrate antigen 19-9 (CA 19-9)2020-12-13 14:29:00 Test Item Value Reference Range Interpretation Comments CA 19-9 26 U/mL <34 This test was (test code = performed using the 92486-9) Siemens Chemiluminescen t method.Values o btained from different assay methods cannot be used interchangeably .CA19-9 levels, regardl ess of value, should n ot be interpreted as absoluteevidenc e of the presence or abs ence of disease. JULIAN (test Performing Lab code = JULIAN) EZ [facility] [employer] [facility] [address] [place] [address] Chip Mckeon MD, PhD, DEBI [facility] HospitalCeruloplasmin2021-07-14 14:13:00 Test Item Value Reference Range Interpretation Comments Ceruloplasmin (test code 28 mg/dL 18-53 = 4287129) JULIAN (test code = JULIAN) Performing Lab *MIKE [employer] [facility], [address] [place] [address] Sheri Mccall MD [facility] HospitalPOCT-GLUCOSE [id number] 11:53:00 Test Item Value Reference Range Interpretation Comments POC-GLUCOSE METER 308 mg/dL 70-110 H : TESTED A T [facility] 6720 (BEAKER) (test code [facility], = 1538) [address]: Shop Hand/Techni sanjeev ID = [id number] for JAK SBENEDICTORIA POCT-GLUCOSE [id number] 07:27:00 Test Item Value Reference Range Interpretation Comments POC-GLUCOSE METER 271 mg/dL 70-110 H : [facility] ([facility] (test code [facility], = 1538) [address]: Shop Hand/Techni sanjeev ID = [id number] for JAK SBENEDICTORIA Calcium, [id number] 05:41:00 Test Item Value Reference Range Interpretation Comments Calcium, Ion (test code = 1993-) 1.09 mmol/L 1.12-1.27 L pH, Blood (test code = 14777-3) 7.40 Lab Interpretation (test code = Abnormal 51463-9) [facility] HospitalCALCIUM, [id number] 05:41:00 Test Item Value Reference Range Interpretation Comments CALCIUM IONIZED (BEAKER) (test 1.09 mmol/L 1.12-1.27 L code = 698) PH, BLOOD (BEAKER) (test code = 7.40 1810) COMPREHENSIVE METABOLIC [id number] 04:31:00 Test Item Value Reference Range Interpretation [...] S NOT APPLICABLE FOR DIALYSIS PATIEN TS. Shop Hand ID - MAGDIEL [id number] 04:25:00 Test Item Value Reference Range Interpretation Comments MAGNESIUM (BEAKER) (test code = 1.5 mg/dL 1.6-2.6 L 627) Shop Hand ID - MAGDIEL [id number] 04:25:00 Test Item Value Reference Range Interpretation Comments PHOSPHORUS (BEAKER) (test code = 2.4 mg/dL 2.3-4.7 604) Shop Hand ID - MAGDIEL MCBC W/PLT COUNT & AUTO [id number] 03:59:00 Test Item Value Reference Range Interpretation [...] PERCENT (BEAKER) (test code = 2801) POCT-GLUCOSE [id number] 22:27:00 Test Item Value Reference Range Interpretation Comments POC-GLUCOSE METER 329 mg/dL 70-110 H : TESTED A T [facility] 67 ([facility]) (test code = [facility], 1537) [address]: Shop Hand/Techni sanjeev ID = [id number] for JAMILA YOUNGER POCT-GLUCOSE [id number] 17:02:00 Test Item Value Reference Range Interpretation Comments POC-GLUCOSE METER 295 mg/dL 70-110 H : Notified RN/MD: ([facility]) (test code = TESTED AT [place] [address] 1537) [facility], [address]: Shop Hand/Techni sanjeev ID = [id number] for Ricco BUNDY HEMOGLOBIN AND [id number] 16:35:00 Test Item Value Reference Range Interpretation Comments HEMOGLOBIN (AKER) (test code = 7.9 GM/DL 11.2-15.7 L 410) HEMATOCRIT (BEAKER) (test code = 25.0 % 34.1-44.9 L 411) Shop Hand ID - 6000POCT-GLUCOSE [id number] 11:51:00 Test Item Value Reference Range Interpretation Comments POC-GLUCOSE METER 300 mg/dL 70-110 H : TESTED A T [facility] 6720 (BEAKER) (test code [facility], = 1538) [address]: Shop Hand/Techni sanjeev ID = [id number] for LEWI S, LAT[place]RI[place] POCT-GLUCOSE [id number] 08:17:00 Test Item Value Reference Range Interpretation Comments POC-GLUCOSE METER 229 mg/dL 70-110 H : TESTED A T [facility] 6720 (BEAKER) (test code [facility], = 1538) [address]: Shop Hand/Techni sanjeev ID = [id number] for LEWI S, [place] [id number] 06:36:00 Test Item Value Reference Range Interpretation Comments PHOSPHORUS (BEAKER) (test code = 1.5 mg/dL 2.3-4.7 LL 604) Shop Hand ID - MAGDIEL MOperator ID - PIAYA LCOMPREHENSIVE METABOLIC [id number] 04:26:00 Test Item Value Reference Range Interpretation [...] S NOT APPLICABLE FOR DIALYSIS PATIEN TS. Shop Hand ID - MAGDIEL VGQGLZRUAQ0291-76-78 04:26:00 Test Item Value Reference Range Interpretation Comments MAGNESIUM (BEAKER) (test code = 1.7 mg/dL 1.6-2.6 627) Shop Hand ID - MAGDIEL MCALCIUM, [id number] 04:18:00 Test Item Value Reference Range Interpretation Comments CALCIUM IONIZED (BEAKER) (test 1.10 mmol/L 1.12-1.27 L code = 698) PH, BLOOD (BEAKER) (test code = 7.41 1810) CBC W/PLT COUNT & AUTO [id number] 03:57:00 Test Item Value Reference Range Interpretation [...] PERCENT (BEAKER) (test code = 2801) POCT-GLUCOSE [id number] 21:58:00 Test Item Value Reference Range Interpretation Comments POC-GLUCOSE METER 139 mg/dL 70-110 H : TESTED A T [facility] 6720 (BEAKER) (test code = MICHEL ENGEL [place], 1538) [address]: Shop Hand/Techni sanjeev ID = [id number] for ERIC FREGOSO Hepatitis B surface [id number] 18:57:00 Test Item Value Reference Range Interpretation Comments Hep B S Ab (test code <8.0 See_Comment [Auto mated = 87670-9) message] The system which generated this result transmit gaby reference range : <8.0 mIU/mL. e reference range was not used to interpret this result as normal/abnormal . JULIAN (test code = JULIAN) Shop Hand ID - DB Lab Interpretation Normal (test code = 49522-9) [facility]HE[facility] B SURFACE [id number] 18:57:00 Test Item Value Reference Range Interpretation Comments HEPATITIS B SURFACE ANTIBODY < mIU/mL <8.0 (PELONAKER) (test code = 647) Shop Hand ID - DBHEMOGLOBIN AND [id number] 18:30:00 Test Item Value Reference Range Interpretation Comments HEMOGLOBIN (BEAKER) (test code = 7.6 GM/DL 11.2-15.7 L 410) HEMATOCRIT (AKER) (test code = 24.3 % 34.1-44.9 L 411) Shop Hand ID - 6000Operator ID - 6000POCT-GLUCOSE [id number] 18:02:00 Test Item Value Reference Range Interpretation Comments POC-GLUCOSE METER 331 mg/dL 70-110 H : TESTED A T [facility] 6720 (MITA) (test code [facility], = 1538) [address]: Shop Hand/Techni sanjeev ID = [id number] for HEATHER DUNLAP Hepatitis C PCR, [id number] 15:48:00 Test Item Value Reference Range Interpretation Comments HCV PCR, Quantitative HCV RNA not detected HCV RNA not (test code = 20479-1) detected JULIAN (test code = JULIAN) This test uses a Real-Time Polymerase Chain Reaction (RT-PCR) methodology and was performed using [employer] Ampliprep/KEZIA TaqMan HCV test kit version 2.0 ([employer]). Reportable range for this assay is 15 - 100,000,000 IU per mL (1.18 - 8.00 Log IU/mL).This test uses a Real-Time Polymerase Chain Reaction (RT-PCR) methodology and was performed using [employer] Ampliprep/KE[employer]IA TaqMan HCV test kit version 2.0 ([employer]). Reportable range for this assay is 15 - 100,000,000 IU per mL (1.18 - 8.00 Log IU/mL). Lab Interpretation Normal (test code = 74713-4) [facility] C PCR, [id number] 15:48:00 Test Item Value Reference Range Interpretation Comments HCV RESULT COMPONENT HCV RNA not detected HCV RNA not detected (BEAKER) (test code = 2699) This test uses [...] TaqMan HCV test kit version 2.0 ([employer]).Reportable range for this assay is 15 - 100,000,000 IU per mL (1.18 - 8.00 Log IU/mL).Hepatitis B PCR, [id number] 13:54:00 Test Item Value Reference Range Interpretation Comments HBV PCR, Quantitative HBV DNA not detected HBV DNA not (test code = 76797-0) detected JULIAN (test code = JULIAN) This test uses a Real-Time Polymerase Chain Reaction (RT-PCR) methodology and was performed using [employer] AmpliPrep/KEZIA TaqMan HBV Test, v2.0 ([employer] Reportable range for this assay is 20 - 170,000,000 IU per mL (1.30 - 8.23 Log IU/mL). Lab Interpretation Normal (test code = 04893-2) [facility], [id number] 13:54:00 Test Item Value Reference Range Interpretation Comments HBV RESULT COMPONENT HBV DNA not detected HBV DNA not detected (BEAKER) (test code = 2701) This test uses a Real-Time Polymerase Chain Reaction (RT-PCR) methodology and was performed using [employer] AmpliPrep/KEZIA TaqMan HBV Test, v2.0 ([employer]Reportable range for this assay is 20 - 170,000,000 IU per mL (1.30 - 8.23 Log IU/mL).POCT-GLUCOSE [id number] 12:15:00 Test Item Value Reference Range Interpretation Comments POC-GLUCOSE METER 195 mg/dL 70-110 H : TESTED A T [facility] 6720 (BEAKER) (test code [facility], = 1538) 61777: Shop Hand/Techni sanjeev ID = [id number] for HEATHER DUNLAP Anti-Nuclear Antibody (AARON)2020-12-11 10:19:00 Test Item Value Reference Range Interpretation Comments AARON (test code = 01337-7) Negative Negative JULIAN (test code = JULIAN) Test performed by IFA method.Test performed by IFA method. Lab Interpretation (test Normal code = 36326-8) [facility] (AARON)2020-12-11 10:19:00 Test Item Value Reference Range Interpretation Comments ANTI-NUCLEAR ANTIBODY (AARON) (BEAKER) Negative Negative (test code = 418) Test performed by IFA method.Test performed by IFA method.Urine culture 2020-12-11 08:28:00 Test Item Value Reference Range Interpretation Comments Result (test code = 6463-4) No growth [facility] [id number] 08:12:00 Test Item Value Reference Range Interpretation Comments POC-GLUCOSE METER 262 mg/dL 70-110 H : TESTED A T [facility] 6720 (BEAKER) (test code [facility], = 1538) [address]393: Shop Hand/Techni sanjeev ID = [id number] for BENEDICTO DUNLAPRIA CALCIUM, [id number] 06:45:00 Test Item Value Reference Range Interpretation Comments CALCIUM IONIZED (BEAKER) (test 1.10 mmol/L 1.12-1.27 L code = 698) PH, BLOOD (BEAKER) (test code = 7.35 1810) COMPREHENSIVE METABOLIC [id number] 06:28:00 Test Item Value Reference Range Interpretation [...] S NOT APPLICABLE FOR DIALYSIS PATIEN TS. Shop Hand ID - MARCUS [id number] 06:28:00 Test Item Value Reference Range Interpretation Comments MAGNESIUM (BEAKER) (test code = 1.5 mg/dL 1.6-2.6 L 627) Shop Hand ID Joaquin VELAZQUEZ [id number] 06:28:00 Test Item Value Reference Range Interpretation Comments PHOSPHORUS (BEAKER) (test code = 2.6 mg/dL 2.3-4.7 604) Shop Hand ID Joaquin VELAZQUEZ WCBC W/PLT COUNT & AUTO [id number] 05:30:00 Test Item Value Reference Range Interpretation [...] (BEAKER) (test code = 2801) HEMOGLOBIN AND [id number] 23:46:00 Test Item Value Reference Range Interpretation Comments HEMOGLOBIN (BEAKER) (test code = 7.9 GM/DL 11.2-15.7 L 410) HEMATOCRIT (BEAKER) (test code = 24.4 % 34.1-44.9 L 411) Shop Hand ID - 6000POCT-GLUCOSE [id number] 21:51:00 Test Item Value Reference Range Interpretation Comments POC-GLUCOSE METER 330 mg/dL 70-110 H : TESTED A T [facility] 6720 (BEAKER) (test code = MICHEL [place], 1538) [address]: Shop Hand/Techni sanjeev ID = [id number] for ERIC FREGOSO POCT-GLUCOSE [id number] 16:37:00 Test Item Value Reference Range Interpretation Comments POC-GLUCOSE METER 215 mg/dL 70-110 H : TESTED A T [facility] 6720 (BEAKER) (test code = MICHEL Royal [place], 1538) 15661: Shop Hand/Techni sanjeev ID = [id number] for Yolie Feliciano CBC W/PLT COUNT & AUTO [id number] 13:45:00 Test Item Value Reference Range Interpretation [...] PERCENT (BEAKER) (test code = 2801) POCT-GLUCOSE [id number] 12:00:00 Test Item Value Reference Range Interpretation Comments POC-GLUCOSE METER 293 mg/dL 70-110 H : TESTED A T [facility] 6720 (BEAKER) (test code = [facility], 1538) 58049: Shop Hand/Techni sanjeev ID = [id number] for CLAUDIO FU Hemoglobin [id number] 07:57:00 Test Item Value Reference Range Interpretation Comments Hemoglobin A1C (test code = 4548-4) 7.7 % 4.3-6.1 H Lab Interpretation (test code = Abnormal 97883-3) [facility]MO[facility] [id number] 07:57:00 Test Item Value Reference Range Interpretation Comments HEMOGLOBIN A1C (BEAKER) (test code = 7.7 % 4.3-6.1 H 368) POCT-GLUCOSE [id number] 07:28:00 Test Item Value Reference Range Interpretation Comments POC-GLUCOSE METER 253 mg/dL 70-110 H : TESTED A T [facility] 6720 (BEAKER) (test code = [facility], 1538) 04847: Shop Hand/Techni sanjeev ID = [id number] for CLAUDIO FU COMPREHENSIVE METABOLIC [id number] 06:23:00 Test Item Value Reference Range Interpretation [...] S NOT APPLICABLE FOR DIALYSIS PATIEN TS. Shop Hand ID - MARCUS [id number] 06:12:00 Test Item Value Reference Range Interpretation Comments MAGNESIUM (BEAKER) 1.7 mg/dL 1.6-2.6 Specimen slightly (test code = 627) hemolyzed Shop Hand ID - MARCUS [id number] 06:12:00 Test Item Value Reference Range Interpretation Comments PHOSPHORUS (BEAKER) 2.8 mg/dL 2.3-4.7 Specimen slightly (test code = 604) hemolyzed Shop Hand ID - MARCUS WCBC W/PLT COUNT & AUTO [id number] 06:09:00 Test Item Value Reference Range Interpretation [...] 2801) Patient actively bleeding as per NODPROTHROMBIN TIME/[id number] 06:00:00 Test Item Value Reference Range Interpretation Comments PROTIME (MITA) 16.5 seconds 11.9-14.2 H (test code = 759) INR (MITA) (test 1.35 See_Comment [Automat ed message] code = 370) The system [employer] generated this result transmitted ref erence range: <=5.90. The reference range was not used to int erpret this result as normal/abnormal . RECOMMENDED COUMADIN/WARFARIN INR THERAPY RANGESSTANDARD DOSE: 2.0 - 3.0 Includes: PROPHYLAXIS forvenous thrombosis, systemic embolization; TREATMENT for venous thrombosis and/or pulmonary embolus.HIGH RISK: Target INR is 2.5-3.5 for patients with mechanical heart valves.U/S, ABDOMINAL, WITH [id number] 05:50:00cirrhosis history with acute bleed. please check liver dopplers Reason for exam:->cirrhosis history with acute bleed. please check liver dopplers [facility] CENTERName: AYLEEN GLEASON : 1965 [...] Verified Date/Time: 12/10/2020 05:50:47 US abdominal with [id number] 05:50:00Interface, External Ris In - 12/10/2020 5:53 [...] Steven Green MDReport Verified Date/Time: 12/10/2020 05:50:47 [facility] [id number] 05:36:00 Test Item Value Reference Range Interpretation Comments CALCIUM IONIZED (BEAKER) (test 0.96 mmol/L 1.12-1.27 L code = 698) PH, BLOOD (BEAKER) (test code = 7.39 1810) POCT-GLUCOSE [id number] 23:40:00 Test Item Value Reference Range Interpretation Comments POC-GLUCOSE METER 296 mg/dL 70-110 H : TESTED A T [facility] 6720 (BEAKER) (test code = [facility] Royal [facility], 1538) 69997: Shop Hand/Techni sanjeev ID = [id number] for MICK BROWN, [id number] 20:39:00 Test Item Value Reference Range Interpretation Comments ABO Grouping (test code = 2588) A Rh Factor (test code = 2589) POS [facility]HEMOGLOBIN AND [id number] 19:15:00 Test Item Value Reference Range Interpretation Comments HEMOGLOBIN (BEAKER) (test code = 10.0 GM/DL 11.2-15.7 L 410) HEMATOCRIT (BEAKER) (test code = 31.1 % 34.1-44.9 L 411) Shop Hand ID - 6000HIV-1 Antigen with HIV-1/2 Gsutsaic0191-11-31 19:10:00 Test Item Value Reference Range Interpretation Comments HIV-1 Antigen with HIV 1&2 Nonreactive Nonreactive Antibody (test code = 67410-7) JULIAN (test code = JULIAN) Shop Hand ID - EO Lab Interpretation (test Normal code = 07240-7) [facility] HospitalHepatitis A antibody, [id number] 19:10:00 Test Item Value Reference Range Interpretation Comments Hep A IgG (test code = Nonreactive Nonreactive 70614-9) JULIAN (test code = JULIAN) Shop Hand ID - EO Lab Interpretation (test Normal code = 77201-9) [facility]HIV[facility] ANTIGEN WITH HIV-1/2 [id number] 19:10:00 Test Item Value Reference Range Interpretation Comments HIV-1 ANTIGEN WITH HIV 1\T\2 Nonreactive Nonreactive ANTIBODY (2) (BEAKER) (test code = 2586) Shop Hand ID - EOHEPATITIS A ANTIBODY, [id number] 19:10:00 Test Item Value Reference Range Interpretation Comments HEPATITIS A IGG ANTIBODY (BEAKER) Nonreactive Nonreactive (test code = 2797) Shop Hand ID - [facility] hospitaltis [facility], [id number] 18:50:00 Test Item Value Reference Range Interpretation Comments Hep A IgM (test code = Nonreactive Nonreactive 49667-7) Hep B C IgM (test code = Nonreactive Nonreactive 00561-7) Hepatitis C Ab (test code = Reactive Nonreactive A 96686-3) HBsAg Screen (test code = Nonreactive Nonreactive 5195-3) JULIAN (test code = JULIAN) Shop Hand ID - EO Lab Interpretation (test Abnormal code = 15346-3) [facility]HEP[facility]IS PANEL, [id number] 18:50:00 Test Item Value Reference Range Interpretation Comments HEPATITIS A IGM ANTIBODY (BEAKER) Nonreactive Nonreactive (test code = 498) HEPATITIS B CORE IGM ANTIBODY Nonreactive Nonreactive (BEAKER) (test code = 645) HEPATITIS C ANTIBODY (BEAKER) Reactive Nonreactive A (test code = 367) HEPATITIS B SURFACE ANTIGEN (2) Nonreactive Nonreactive (BEAKER) (test code = 2585) Shop Hand ID - EOHepatitis B core antibody, [id number] 18:49:00 Test Item Value Reference Range Interpretation Comments Hep B Core Total Ab (test Reactive Nonreactive A code = 11196-6) JULIAN (test code = JULIAN) Shop Hand ID - EO Lab Interpretation (test Abnormal code = 25240-9) [facility] HospitalHEPAT[facility]IS [facility] CORE ANTIBODY, [id number] 18:49:00 Test Item Value Reference Range Interpretation Comments HEPATITIS B CORE TOTAL ANTIBODY Reactive Nonreactive A (BEAKER) (test code = 497) Shop Hand ID - EOCarcinoembryonic Antigen (CEA)2020-12-09 18:42:00 Test Item Value Reference Range Interpretation Comments CEA, SERUM (test code = 11.8 ng/mL 0-5 H 2038-) JULIAN (test code = JULIAN) Shop Hand ID - EO Lab Interpretation (test Abnormal code = 63137-5) [facility] HospitalAlpha fetoprotein (AFP), tumor [id number] 18:42:00 Test Item Value Reference Range Interpretation Comments Alpha-Fetoprotein (test code 3.4 ng/mL <10.0 = 1834-1) JULIAN (test code = JULIAN) Shop Hand ID - EO Lab Interpretation (test Normal code = 83114-4) [facility] HospitalCARCINOEMBRYONIC ANTIGEN (CEA)2020-12-09 18:42:00 Test Item Value Reference Range Interpretation Comments CARCINOEMBRYONIC ANTIGEN (BEAKER) 11.8 ng/mL 0.0-5.0 H (test code = 685) Shop Hand ID - EOALPHA FETOPROTEIN (AFP), TUMOR [id number] 18:42:00 Test Item Value Reference Range Interpretation Comments ALPHA-FETOPROTEIN (BEAKER) (test 3.4 ng/mL <10.0 code = 1094) Shop Hand ID - EOVitamin D, [id number] 18:39:00 Test Item Value Reference Range Interpretation Comments Vitamin D 25-Hydroxy 9.7 ng/mL 6.6-49.9 (test code = 2764) JUILAN (test code = JULIAN) Effective 03/12/2017: Reference Range ChangeNew: 6.6-49.9 ng/mL Previous: 13.0-47.8 ng/mL Recommended Vitamin D Target Range: 30.0-40.0 ng/mLOperator ID - EO Lab Interpretation (test Normal code = 70411-6) [facility] HospitalVITAMIN D, [id number] 18:39:00 Test Item Value Reference Range Interpretation Comments VITAMIN D 25-OH (BEAKER) (test code 9.7 ng/mL 6.6-49.9 = 2764) Effective 03/12/2017: Reference Range ChangeNew: 6.6-49.9 ng/mL Previous: 13.0-47.8 ng/mLRecommended Vitamin D Target Range: 30.0-40.0 ng/mLOperator ID - FXVgvdy-9-[id number] 18:22:00 Test Item Value Reference Range Interpretation Comments A-1 Antitrypsin (test code = 127.60 mg/dL 90-200 1825-9) JULIAN (test code = JULIAN) Shop Hand ID - EO Lab Interpretation (test Normal code = 15341-2) [facility] HospitalALPHA-1-[id number] 18:22:00 Test Item Value Reference Range Interpretation Comments ALPHA-1 ANTITRYPSIN (BEAKER) 127.60 mg/dL 90.00-200.00 (test code = 502) Shop Hand ID - [id number] 17:32:00 Test Item Value Reference Range Interpretation Comments AMMONIA (BEAKER) (test code = 348) 97 mol/L 18-72 H Shop Hand ID - DBUrinalysis w/Microscopic + Reflex to [id number] 17:27:00 Test Item Value Reference Range Interpretation Comments Color, UA (test code Light Yellow = 5778-6) Clarity, UA (test Clear code = 5767-9) Specific [place], UA 1.017 1.001-1.035 (test code = 5811-5) pH, UA (test code = 6.0 5.0-8.0 5803-2) Protein, UA (test 20 mg/dL Negative A code = 46549-3) Glucose, UA (test Negative Negative code = 365) Ketones, UA (test 10 mg/dL Negative A code = 2514-8) Bilirubin, UA (test Negative Negative code = 15584-1) Blood, UA (test code Moderate Negative A = 87769-0) Nitrite, UA (test Negative Negative code = 5802-4) Leukocytes, UA (test Moderate Negative A code = 5799-2) Urobilinogen, UA 0.2 mg/dL 0.2-1 (test code = 69543-2) RBC, UA (test code = 137 See_Comment [Autom ated 15252-9) message] The system which generated this result [...] . Bacteria, UA (test Few code = 34768-4) Mucus (test code = Rare 8247-9) Squam Epithel, UA <1 See_Comment [Automate d (test code = 19403-7) messag e] The system which generated this result transmitted reference range : /HPF. The reference range was not used to interpret this result as normal/abnormal . Hyaline Casts, UA 4 See_Comment [Automate d (test code = 29496-3) messag e] The system which generated this result transmitted reference range : /LPF. The reference range was not used to interpret this result as normal/abnormal . Crystals, Urine (test Occasional code = 06599-4) Specimen Source (test code = 2795) JULIAN (test code = JULIAN) Shop Hand ID - [auto]Shop Hand ID - tech Lab Interpretation Abnormal (test code = 62071-9) [facility] HospitalURINALYSIS W/ REFLEX URINE [id number] 17:27:00 Test Item Value Reference Range Interpretation [...] code = 1521) SOURCE(BEAKER) (test code = 4355) Shop Hand ID - [auto]Shop Hand ID - [id number] 16:11:00 Test Item Value Reference Range Interpretation Comments Ferritin (test code = 30.15 ng/mL 5-275 2276-4) JULINA (test code = JULIAN) Shop Hand ID - DB Lab Interpretation (test Normal code = 65091-1) [facility] HospitalFERRITIN2021-07-10 16:11:00 Test Item Value Reference Range Interpretation Comments FERRITIN (BEAKER) (test code = 30.15 ng/mL 5.00-275.00 361) Shop Hand ID - DBAcetaminophen [id number] 15:52:00 Test Item Value Reference Range Interpretation Comments Acetaminophen Level <5.7 10-30 L (test code = 3298-7) JULIAN (test code = JULIAN) Therapeutic Range: 10.0-30.0 g/mLToxic Levels: >200.0 g/mL Shop Hand ID - DB Lab Interpretation (test Abnormal code = 37567-4) [facility] HospitalACETAMINOPHEN [id number] 15:52:00 Test Item Value Reference Range Interpretation Comments ACETAMINOPHEN LEVEL (BEAKER) (test < ug/mL 10.0-30.0 L code = 344) Therapeutic Range: 10.0-30.0 g/mLToxic Levels: >200.0 g/mLOperator ID - DBCOMPREHENSIVE METABOLIC [id number] 15:52:00 Test Item Value Reference Range Interpretation [...] S NOT APPLICABLE FOR DIALYSIS PATIEN TS. Shop Hand ID - DBIron, TIBC, % sat. (without ferritin)2020-12-09 15:51:00 Test Item Value Reference Range Interpretation Comments Iron (test code = 2498-4) 160.0 ug/dL 40-160 TIBC (test code = 2500-7) 355 ug/dL 250-450 Iron % Saturation (test code 45 % 20-55 = 2502-3) JULIAN (test code = JULIAN) Shop Hand ID - DB Lab Interpretation (test Normal code = 24038-9) [facility] HospitalIRON, TIBC, % SAT. (WITHOUT FERRITIN)2020-12-09 15:51:00 Test Item Value Reference Range Interpretation Comments IRON (BEAKER) (test code = 547) 160.0 ug/dL 40.0-160.0 TOTAL IRON BINDING CAPACITY 355 ug/dL 250-450 (BEAKER) (test code = 769) IRON % SATURATION (2) (BEAKER) 45 % 20-55 (test code = 2590) Shop Hand ID - DBCBC W/PLT COUNT & AUTO [id number] 15:32:00 Test Item Value Reference Range Interpretation [...] 0-1 PERCENT (BEAKER) (test code = 2801) CHEM [id number] 19:53:39053Mngwzdyk HermannCHEM EMRWI7020-93-08 19:53:0018 [facility] QKWJD0355-70-32 19:53:001.37[facility]annCHEM PANEL 2020-10-23 19:53:0044[facility]annCHEM KDKWJ0151-50-06 19:53:0051[facility]annCHEM HWGWO0602-04-87 19:53:0013[facility]annCHEM [id number] 19:53:97606Dkhmjfzx HermannCHEM HMWCK1024-86-79 19:53:003.9[facility]annCHEM QGKLU6415-25-12 19:53:0099[facility]annCHEM CVFZX7343-52-17 19:53:0031 [facility]annCHEM EITKI5340-83-77 19:53:009.6[facility]annCHEM PANEL 2020-10-23 19:53:007.6[facility]annCHEM APPTR6668-90-51 19:53:003.9[facility]annCHEM IYCJN6623-86-05 19:53:003.7[facility]annCHEM KOTXM1005-98-92 19:53:001.1[facility]annCHEM CPATT2328-62-11 19:53:000.8[facility]annCHEM VGWLD0038-57-60 19:53:0095[facility]annCHEM BZTXM7398-05-28 19:53:0029 [facility]annCHEM SAMLZ4371-36-37 19:53:0027[facility]annCHEM PANEL 2020-10-23 19:53:26655Nsqloxzb HermannSPECIAL KJVILKBYK4394-30-89 19:53:009.5 [facility]annCHE[facility] ADRWW7267-43-39 19:53:99523Qniqstip HermannCHEM PANEL 2020-10-23 19:53:0018[facility] HermannCHEM OSKYL2742-93-94 19:53:001.37[facility]annCHEM UJIKD0366-77-57 19:53:0044[facility]annCHEM EANVE8610-35-30 19:53:0051[facility]annCHEM PJALM9479-32-60 19:53:0013[facility] HermannCHEM NSATO3489-51-94 19:53:79310Cqbioxag HermannCHEM OTDEW8857-63-48 19:53:003.9 [facility]annCHEM XIHNK7476-15-14 19:53:0099[facility]annCHEM PANEL 2020-10-23 19:53:0031[facility] HermannCHEM YUSTL7675-56-68 19:53:009.6[facility]annCHEM UNAEC8235-63-40 19:53:007.6[facility]annCHEM IMZVS4053-03-56 19:53:003.9[facility]annCHEM HZGCQ7933-80-68 19:53:003.7[facility]annCHEM YCSTN7744-08-00 19:53:001.1[facility]annCHEM UPYOU6867-90-74 19:53:000.8 [facility]annCHEM DDGZK6184-41-36 19:53:0095[facility]annCHEM PANEL 2020-10-23 19:53:0029[facility]annCHEM CXHRA4991-78-43 19:53:0027[facility]annCHEM CWHAA0051-18-00 19:53:16636Jzocoxha HermannSPECIAL CHEMISTRY 2020-10-23 19:53:009.5[facility]annCHEM SKHLG6666-89-51 19:53:98173Suixyeub HermannCHEM GAPKS3156-61-68 19:53:0018[facility]annCHEM IYCQH4501-40-67 19:53:001.37[facility]annCHEM WRIAX4045-60-66 19:53:0044[facility]annCHEM AJGBG9615-10-68 19:53:0051[facility]annCHEM ENOMU4521-21-47 19:53:0013 [facility]annCHEM MNCJB4121-49-66 19:53:45979Bixpsvqg HermannCHEM PANEL 2020-10-23 19:53:003.9[facility]annCHEM CSRUZ1464-77-08 19:53:0099[facility]annCHEM GXVKM5995-71-22 19:53:0031[facility]annCHEM TRIXH9621-39-40 19:53:009.6[facility]annCHEM VFXCU5019-04-95 19:53:007.6[facility]annCHEM NEBWF0340-81-37 19:53:003.9[facility]annCHEM NQZAO5283-83-08 19:53:003.7 [facility]annCHEM UYLUX1714-48-49 19:53:001.1[facility]annCHEM PANEL 2020-10-23 19:53:000.8[facility]annCHEM AGILE7628-68-47 19:53:0095[facility]annCHEM OAMJP2869-21-03 19:53:0029[facility]annCHEM FCMWL7230-09-61 19:53:0027[facility]annCHEM KGAYI5526-62-93 19:53:48621Vumjiyoy [place] SPECIAL KQYOXMBVV5180-81-21 19:53:009.5[facility] HermannCHEM HWYBN7098-41-32 19:53:63254Wmevedlu HermannCHEM NKOZO5512-26-64 19:53:0018[facility]annCHEM SDJBN4054-02-00 19:53:001.37[facility]annCHEM RJZMU4802-70-74 19:53:0044 [facility]annCHEM YESGF7260-01-61 19:53:0051[facility]annCHEM PANEL 2020-10-23 19:53:0013[facility] HermannCHEM GNIKR7647-68-23 19:53:02913Gpsudomc HermannCHEM HPPAF1318-03-11 19:53:003.9[facility]annCHEM XWYXG7294-26-07 19:53:0099[facility]annCHEM SGNKC6536-97-08 19:53:0031[facility]annCHEM XGTJC6347-09-95 19:53:009.6[facility]annCHEM PBGOB0363-52-37 19:53:007.6 [facility]annCHE[facility] YCDQC9889-65-11 19:53:003.9[facility]annCHEM PANEL 2020-10-23 19:53:003.7[facility]annCHEM VLVGL9691-60-49 19:53:001.1[facility]annCHEM YQEJD3926-35-66 19:53:000.8[facility]annCHEM DBGPG1092-94-97 19:53:0095[facility]annCHEM QOEQI5070-40-76 19:53:0029[facility]annCHEM KOGEA4644-44-42 19:53:0027[facility] HermannCHEM MTBVE0359-22-28 19:53:54553 [facility]annSPECIAL DCRMNISNP6713-51-33 19:53:009.5[facility] [place]
[2021-06-12 21:07] LABS: Absolute Lymphocytes (CBC) 0.9 K/uL (0.7-4.9); Hematocrit 34.8 % (36.0-45.0); Lymphocytes % 23.5 % (15.3-44.8); MPV 10.7 fL (7.6-11.3); RBC Red Blood Cell Count 3.73 M/uL (3.86-4.86)
[2021-06-12 21:08] LABS: Protime INR 1.1
[2021-06-12 21:21] LABS: Albumin 3.1 g/dL (3.4-5.0); Bilirubin Direct 0.1 mg/dL (0-0.2); Bilirubin Total 0.4 mg/dL (0.2-1.0); Potassium 4.6 mmol/L (3.5-5.1); Protein, Total 7.1 g/dL (6.4-8.2); Troponin High Sensitivity 5.6 pg/mL (<58.9)
[2021-06-12 22:17] LABS: Blood Morphology Comment NOT SEEN (NOT SEEN); Platelet Estimate DECR; White Blood Cell Scan OK (OK)
[2021-06-12] MEDS ORDERED: HYDROMORPHONE HCL 1 MG/ML INJ ONE (22:47)
[2021-06-12] MEDS ORDERED: ONDANSETRON 4 MG/2 ML VIAL ONE (22:47)
--- NOTE | 2021-06-12 23:43 | EDPHYS ---
Physician Documentation [facility] Name: Cheyenne Mcgill Age: 55 yrs Sex: Female : 1965 Arrival Date: 06/12/2021 Time: 19:26 Bed 24 Private MD: ED Physician Gregory Perez HPI: 06/12 20:01 This 55 yrs old Female presents to ER via Ambulatory with complaints of Numbness Of Arm sp3 - RIGHT, Back Pain, Rectal Bleeding, Mouth Problem - BLEEDING. 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 Patient also states that she had emesis x1 with "a blood tinge in it but nothing significant". Patient denies headache, neck pain, syncope, upper back pain, chest pain, shortness of breath, URI symptoms, cough, bleeding elsewhere including brushing teeth or urine, joint aches, rash, trauma, any other critical findings at this time.. Historical: - Allergies: 20:05 No Known Allergies; iw - PMHx: 20:05 cirrhosis of liver; Diabetes - NIDDM; Hepatitis; low platelets; splenomegaly; iw ROS: 20:18 Constitutional: Negative for fever, chills, and weight loss, Eyes: Negative for injury, sp3 pain, redness, and discharge, ENT: Negative for injury, pain, and discharge, Neck: Negative for injury, pain, and swelling, Cardiovascular: Negative for chest pain, palpitations, and edema, Respiratory: Negative for shortness of breath, cough, wheezing, and pleuritic chest pain, MS/Extremity: Negative for injury and deformity, Skin: Negative for injury, rash, and discoloration, Neuro: Negative for headache, weakness, numbness, tingling, and seizure, Psych: Negative for depression, anxiety, suicide ideation, homicidal ideation, and hallucinations, Allergy/Immunology: Negative for hives, rash, and allergies, Endocrine: Negative for neck swelling, polydipsia, polyuria, polyphagia, and marked weight changes. 20:18 All other systems are negative. Exam: 20:18 Constitutional: This is a well developed, well nourished patient who is awake, alert, sp3 and in no acute distress. Head/Face: Normocephalic, atraumatic. Eyes: Pupils equal round and reactive to light, extra-ocular motions intact. Lids and lashes normal. Conjunctiva and sclera are non-icteric and not injected. Cornea within normal limits. Periorbital areas with no swelling, redness, or edema. ENT: Nares patent. No nasal discharge, no septal abnormalities noted. External auditory canals are clear. Oropharynx with no redness, swelling, or masses, exudates, or evidence of obstruction, uvula midline. Mucous membranes moist. Neck: Trachea midline, no thyromegaly or masses palpated, and no cervical lymphadenopathy. Supple, full range of motion without nuchal rigidity, or vertebral point tenderness. No Meningismus. Chest/axilla: Normal chest wall appearance and motion. Nontender with no deformity. No lesions are appreciated. Cardiovascular: Regular rate and rhythm with a normal S1 and S2. No gallops, murmurs, or rubs. Normal PMI, no JVD. No pulse deficits. Respiratory: Lungs have equal breath sounds bilaterally, clear to auscultation and percussion. No rales, rhonchi or wheezes noted. No increased work of breathing, no retractions or nasal flaring. Back: No spinal tenderness. No costovertebral tenderness. Full range of motion. Skin: Warm, dry with normal turgor. Normal color with no rashes, no lesions, and no evidence of cellulitis. MS/ Extremity: Pulses equal, no cyanosis. Neurovascular intact. Full, normal range of motion. Neuro: Awake and alert, GCS 15, oriented to person, place, time, and situation. Cranial nerves II-XII grossly intact. Motor strength 5/5 in all extremities. Sensory grossly intact. Cerebellar exam normal. Normal gait. Psych: Awake, alert, with orientation to person, place and time. Behavior, mood, and affect are within normal limits. 20:18 Abdomen/GI: Abdomen is distended but at baseline per patient. No peritoneal signs or significant pain on palpation. Patient states mild discomfort on palpation. No CVA tenderness. Positive blood/melena on rectal exam.. 22:57 ECG was reviewed by the Attending Physician. EKG demonstrates normal sinus rhythm at 78 sp3 bpm normal intervals, normal QRS, normal axis, nonspecific diffuse ST/T changes without evidence of ischemia. Vital Signs: 19:57 BP 140 / 73; Pulse 78; Resp 16; Temp 98.5; Pulse Ox 98% ; Weight 68.04 kg; Height 4 ft. vc1 10 in. (147.32 cm); Pain 10/10; 21:02 BP 129 / 73; Pulse 77; Resp 16; Pulse Ox 98% on R/A; iw 22:26 BP 114 / 56; Pulse 74; Resp 16; Temp 98.7(O); Pulse Ox 97% ; iw 23:13 BP 141 / 85; Pulse 79; Resp 16; Pulse Ox 96% on R/A; iw 19:57 Body Mass Index 31.35 (68.04 kg, 147.32 cm) vc1 MDM: 20:08 Patient medically screened. sp3 20:19 Data reviewed: vital signs, nurses notes. ED course: 55-year-old female with possible sp3 probable GI bleed. Normal vital signs. Will assess with CT scan, laboratory values, and keep patient NPO. Disposition TBD based on data and patient course. At this time I am not highly suspicious for large GI hemorrhage, hemodynamic instability, shock, vascular compromise, mesenteric ischemia, bowel obstruction, SBP, sepsis, or any other critical findings at this time.. 23:41 ED course: CT scan shows mild inflammatory changes around the liver which are chronic sp3 and related to her cirrhosis. Laboratory values do not indicate any major abnormalities from her baseline including hemoglobin. There is no leukocytosis with left shift. Remainder of her labs are without significant abnormality. Pain appears to be her chronic symptoms and no acute intervention in the emergency department indicated at this time. Will discharge patient home to primary team follow-up as needed.. 06/12 20:08 Order name: Basic Metabolic Panel sp3 06/12 20:08 Order name: CBC with Diff 3 06/12 20:08 Order name: Hepatic Function; Complete Time: 21:46 sp3 06/12 20:08 Order name: Lipase; Complete Time: 21:46 sp3 06/12 20:08 Order name: PT-INR; Complete Time: 21:46 sp3 06/12 20:08 Order name: Type And Screen; Complete Time: 21:46 sp3 06/12 20:08 Order name: Troponin High Sensitivity; Complete Time: 21:46 sp3 06/12 20:08 Order name: Basic Metabolic Panel; Complete Time: 21:46 EDMS 06/12 20:08 Order name: CBC with Automated Diff; Complete Time: 23:41 EDMS 06/12 20:13 Order name: CT Abd/Pelvis - IV Contrast Only sp3 06/12 20:13 Order name: COVID-19 (Coronavirus) Document "Date of Onset" if Symptomatic sp3 06/12 20:14 Order name: CORONAVIRUS EDMS 06/12 21:11 Order name: CBC Smear Scan; Complete Time: 23:41 EDMS 06/12 20:08 Order name: IV Saline Lock; Complete Time: 20:39 sp3 06/12 20:08 Order name: Labs collected and sent; Complete Time: 20:39 sp3 06/12 20:08 Order name: NPO; Complete Time: 21:02 sp3 06/12 20:08 Order name: EKG - Nurse/Tech; Complete Time: 21:02 sp3 Administered Medications: 22:51 Drug: Dilaudid (HYDROmorphone) 1 mg Route: IVP; Site: right antecubital; iw 22:52 Drug: Zofran (Ondansetron) 4 mg Route: IVP; Site: right antecubital; iw Disposition Summary: 06/12/21 23:42 Discharge Ordered Location: Home sp3 Condition: Stable sp3 Diagnosis - Abdominal pain, Generalized sp3 Followup: sp3 - With: Private Physician - When: As needed - Reason: Continuance of care Discharge Instructions: - Discharge Summary Sheet sp3 - Abdominal Pain, Adult sp3 Forms: - Medication Reconciliation Form sp3 - Thank You Letter sp3 - Antibiotic Education sp3 - Prescription Opioid Use sp3 Prescriptions: - Zofran 4 mg Oral Tablet - take 1 tablet by ORAL route every 12 hours As needed; 20 tablet; Refills: 0, sp3 Product Selection Permitted Signatures: Dispatcher [employer] Miladis Ramsey RN RN Gregory Joya MD MD sp3
--- NOTE | 2021-06-12 23:43 | ER ---
Nurse's Notes [facility] Name: Cheyenne Mcgill Age: 55 yrs Sex: Female : 1965 Arrival Date: 06/12/2021 Time: 19:26 Bed 24 Private MD: Diagnosis: Abdominal pain, Generalized Presentation: 06/12 19:57 Chief complaint: Patient states: I'm having back back pain in two spots, I'm bleeding vc1 out my bottom and I threw up blood two times the day before yesterday. I was having tingling and pain down my right arm that started yesterday. Coronavirus screen: Vaccine status: Patient reports receiving the 2nd dose of the covid vaccine. Jaylen Client denies travel out of the [place] in the last 14 days. At this time, the client does not indicate any symptoms associated with coronavirus-19. Ebola Screen: No symptoms or risks identified at this time. Initial Sepsis Screen: Does the patient meet any 2 criteria? No. Patient's initial sepsis screen is negative. Does the patient have a suspected source of infection? No. Patient's initial sepsis screen is negative. Risk Assessment: Do you want to hurt yourself or someone else? Patient reports no desire to harm self or others. 19:57 Method Of Arrival: Ambulatory vc1 19:57 Acuity: ABDULKADIR 3 vc1 Triage Assessment: 21:00 General: Appears in no apparent distress. Behavior is calm, cooperative. Pain: iw Complains of pain in abdomen. Musculoskeletal: Range of motion: intact in all extremities. Historical: - Allergies: 20:05 No Known Allergies; iw - PMHx: 20:05 cirrhosis of liver; Diabetes - NIDDM; Hepatitis; low platelets; splenomegaly; iw Screenin/12 00:01 Abuse screen: Denies threats or abuse. Denies injuries from another. Nutritional iw screening: No deficits noted. Tuberculosis screening: No symptoms or risk factors identified. Fall Risk None identified. Assessment: 06/12 21:00 General: Appears in no apparent distress. Behavior is calm, cooperative. Pain: iw Complains of pain in abdomen. Neuro: Level of Consciousness is awake, alert, obeys commands, Oriented to person, place, time, situation, Appropriate for age. GI: Abdomen is distended. Derm: Skin is intact, is healthy with good turgor. 21:33 Reassessment: Patient appears in no apparent distress at this time. Patient and/or iw family updated on plan of care and expected duration. Pain level reassessed. Patient is alert, oriented x 3, equal unlabored respirations, skin warm/dry/pink. Vital Signs: 19:57 BP 140 / 73; Pulse 78; Resp 16; Temp 98.5; Pulse Ox 98% ; Weight 68.04 kg; Height 4 ft. vc1 10 in. (147.32 cm); Pain 10/10; 21:02 BP 129 / 73; Pulse 77; Resp 16; Pulse Ox 98% on R/A; iw 22:26 BP 114 / 56; Pulse 74; Resp 16; Temp 98.7(O); Pulse Ox 97% ; iw 23:13 BP 141 / 85; Pulse 79; Resp 16; Pulse Ox 96% on R/A; iw 19:57 Body Mass Index 31.35 (68.04 kg, 147.32 cm) vc1 ED Course: 19:26 Patient arrived in ED. wm 20:01 Triage completed. vc1 20:01 Gregory Perez MD is Attending Physician. sp3 20:12 Miladis Mcmahan, RN is Primary Nurse. iw 20:26 Inserted saline lock: 20 gauge in right antecubital area, using aseptic technique. iw 21:00 Arm band placed on. iw 21:11 Notified ED physician of a critical lab result(s). Plt 36 Dr Perez notified. bb 23:04 CT Abd/Pelvis - IV Contrast Only In Process Unspecified. EDMS 06/13 00:01 No provider procedures requiring assistance completed. IV discontinued, intact, iw bleeding controlled, No redness/swelling at site. Pressure dressing applied. Administered Medications: 06/12 22:51 Drug: Dilaudid (HYDROmorphone) 1 mg Route: IVP; Site: right antecubital; iw 22:52 Drug: Zofran (Ondansetron) 4 mg Route: IVP; Site: right antecubital; iw Outcome: 23:42 Discharge ordered by . sp3 06/13 00:01 Discharged to home with family. iw Condition: good Discharge instructions given to patient, Instructed on discharge instructions, follow up and referral plans. medication usage, Demonstrated understanding of instructions, follow-up care, medications, Prescriptions given X 1. 00:02 Patient left the ED. iw Signatures: Dispatcher [employer] EDMila Musa RN RN bb Williams, Irene, RN RN iw Marsh, Wendy wm Patel, Setul, MD MD sp3 CalcAide maldonado RN RN vc1
[2021-06-13 00:38] VITALS: TEMP 98.7
[2021-06-13 00:39] VITALS: BP 141/85; O2SAT 96
--- NOTE | 2021-06-13 07:47 | EKG ---
Test Date: 2021-06-12 Test Time: 20:58:46 Chief Compliance Officer: AMARA MEASUREMENT RESULTS: Intervals: Rate: 78 VA: 132 QRSD: 86 QT: 390 QTc: 444 [place]: P: 53 VA: 132 QRS: 68 T: 67 INTERPRETIVE STATEMENTS: Normal sinus rhythm Normal ECG Compared to ECG 12/08/2020 22:01:44 Myocardial infarct finding no longer present Electronically Signed On 06-13-21 07:45:37 CLINICAL INFORMATICS DIRECTOR by Misael Flores
--- NOTE | 2021-06-13 11:14 | RAD REPORT ---
EXAM DESCRIPTION: CT - Abdomen Pelvis W Contrast - 06/13/2021 6:01 am COMPARISON: CT abdomen pelvis January 12, 2021 CLINICAL HISTORY: Abdominal pain TECHNIQUE: Multiple helical axial images were obtained through the abdomen and pelvis using intraven ous contrast. Coronal and sagittal reformatted images were obtained. All CT scans at this facility use dose modulation, iterative reconstruction, and/or weight-based dosi ng when appropriate to reduce radiation dose to as low as reasonably achievable. FINDINGS: Lung bases: Appear unremarkable. Liver: Nodular contour is noted compatible with cirrhotic changes. Gallbladder/biliary: Small calcified stones in the dependent gallbladder are present. Gallbladder wal l appears mildly thickened. No evidence of localized pericholecystic inflammation. Mild nonspecific p rominence of the common bile duct is again noted appearing unchanged. Pancreas: Unremarkable. No evidence of ductal enlargement. Spleen: Appears enlarged measuring 14.5 cm longitudinally. Adrenals: Unremarkable. Kidneys and ureters: No evidence of hydronephrosis. Normal enhancement. Bladder: Unremarkable. Pelvic organs: Unremarkable. Bowel: Ascending colon and hepatic flexure of the colon appear mildly thickened with mild adjacent st randing. No evidence of bowel obstruction. Appendix appears unremarkable. Vasculature: Aortoiliac atherosclerosis is present. Paraesophageal varices are present. Varices in th e upper abdomen noted. Peritoneum: No free air. No significant free fluid. Lymph nodes: Mildly prominent nonspecific gastrohepatic ligament and retroperitoneal lymph nodes agai n noted. Soft tissues: Unremarkable. Bones: Chronic appearing compression fracture of L1 again noted with severe vertebral body height los s. IMPRESSION: 1. Mildly thickened appearance of the ascending colon and hepatic flexure which may be related to colitis versus edema related to cirrhosis. 2. Cirrhosis with splenomegaly and varices including periesophageal varices. 3. Cholelithiasis with nonspecific mild gallbladder wall thickening. Electronically signed by: Charles Fried MD 06/12/2021 11:34 PM CASINO FLOOR PERSON Due to temporary technical issues with the PACS/Fluency reporting system, reports are being signed by the in house radiologist without review as a courtesy to ensure prompt reporting. The interpreting r adiologist is fully responsible for the content of the report.
== END 2021-06-13 00:02 | disposition home or self-care (01) ==
LOC: ER 19:22
DX: R10.84 Generalized abdominal pain (principal); K74.60 Unspecified cirrhosis of liver; E11.9 Type 2 diabetes mellitus without complications; Z20.822 Contact with and (suspected) exposure to COVID-19
CPT/HCPCS: 36415; 74177; 80048; 80076; 83690; 84484; 85025; 85610; 86850; 86900; 86901; 93005; 96374; 96375; 99284; J1170; J2405; Q9967; U0002

== ENCOUNTER 2021-08-22 15:43 | Observation (INO) | payer BC ==
--- OUTSIDE RECORDS SUMMARY | 2021-08-22 15:45 | XMS REPORT | Clinical Summary ---
:1965 Author Organization [facility] MD [facility] Address [address] [place] [id number] Care Team Providers Name Role Phone Unavailable Primary Care Provider Unavailable Allergies Not on File Medications Not on file Active Problems Not on file Immunizations Name Administration Dates Next Due Feliz SARS-CoV-2 Vaccination 08/12/2020 Social History Tobacco Use Types Packs/Day Years Used Date Never Assessed Sex Assigned at Date Recorded Not on file Last Filed Vital Signs Not on file Plan of Treatment Not on file Results Not on fileafter 08/22/2020
--- OUTSIDE RECORDS SUMMARY | 2021-08-22 15:53 | XMS REPORT | Continuity of Care Document ---
:1965 Author Organization [facility] t Address [address] [place] [address] Care Team Providers Name Role Phone Asked, Pcp Primary Care Physician Unavailable Carlos Attending Clinician Unavailable JADE JAIN Attending Clinician Unavailable LENIN Attending Clinician Unavailable LUIS ENRIQUE Attending Clinician Unavailable KEITH Attending Clinician Unavailable MIKAYLA LITTLE Attending Clinician Unavailable MORELIA OSPINA Attending Clinician Unavailable JEB MEDRANO Attending Clinician Unavailable MARIA A QUEVEDO Attending [...] Clinician Unavailable Alvino Smalls MD Attending Clinician Oraico NULL Attending Clinician Saba Ortiz Attending Clinician Unavailable Keith NULL Attending Clinician Jasmine Thompson MD Attending Clinician Halle NULL Attending Clinician Odilia NULL Attending Clinician Nick Hernandez MD Attending Clinician Jojo Joshi MD Attending Clinician Nam Mcmahan MD Attending Clinician Cecilia Yusuf MD Attending Clinician JEISON SPENCER Attending Clinician Unavailable [...] Type Policy Number Effective Date Expiration Date Jessica doe [employer] MEDICARE [id number] 2020 ADV 00:00:00 [employer] MEDICARE [id number] 2020 00:00:00 MEDICAID SSI PENDING 2019 PENDING 00:00:00 BCBS MEDICARE [id number] 2021 ADVANTAGE 00:00:00 MEDICARE A B [id number] 2020 00:00:00 MEDICAID 365 [id number] 2019 2019 VENDOR 00:00:00 00:00:00 Problems Condition Condition Condition Status Onset Resolution Last Treating Co mments Source Name Details Category Date Date Treatment Clinician Date 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[facility]i hypertensi 12-28 [facility] - on on 00:00: Medical 00 [place] 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 -29 [facility] - varices varices 00:00: Medical without without 00 Center bleeding bleeding Anemia Anemia Disease [facility] 00 [place] GI bleed GI bleed Disease [facility] 00 [place] Hepatitis Hepatitis Disease Active [facility] 00:[facility]: Medical 00 [place] Hematochez Hematochez Disease Active [facility] ia 12[facility]21 [facility] - 00:00: Medical 00 [place] Acute Acute Disease Active [facility] blood [...] hematemesi s s M54.14 - Diagnosis Active 2021-0 2021-01-11 M emoria RADICULOPA 11-29 15:43:00 l THY, M54.14 - 00:01: Abdi yoo THORACIC RADICULOPA 00 REGION THY, THORACIC REGION Active 11/29/[address] R41.3 - Diagnosis Active 2020-12-29 Me moria OTHER 11-16 15:43:00 l AMNESIA R41.3 - 00:01: Abdi yoo G25.3 - OTHER 00 MYOCLONUS AMNESIA G25.3 - MYOCLONUS Active 11/16/[address] R10.9 - Diagnosis Active 2020-10-12 Me moria UNSPECIFIE 08-30 15:27:00 l D R10.9 - 00:01: García ABDOMINAL UNSPECIFIE 00 PAIN M54.5 D ABDOMINAL PAIN M54.5 Active 08/30/2020 [place]IO [place] LOW BACK Diagnosis Active 2020-10-03 M emoria PAIN 08-29 15:31:00 l LOW BACK 08:00: Abdi yoo PAIN 00 Active 08/29/2020 [facility] Hepatitis Hepatitis Disease Active [facility] 00:[facility] Hospita 00 l Hepatitis Hepatitis Disease Active [facility] 00[facility] Hospita 00 l Right Right Disease Active [facility] lower lower 8-12 st quadrant quadrant 00:00: Hospit a abdominal abdominal 00 l pain pain Type 2 Type 2 Disease Active [facility] diabetes diabetes 8-12 st mellitus mellitus 00:00: Hospit a without without 00 l complicati complicati on on Transient Problem Resolve 2021-02-17 M emoria ischemic d 21:58:10 l attack [place] (disorder) Transient ischemic attack (disorder) Resolved Problem 02/17/2021 [facility] her Neuro, [facility] [place] Cirrhosis Problem Active 2021-02-17 Me moria of liver 21:58:10 l (disorder) Abdi yoo Cirrhosis of liver (disorder) Active Problem 02/17/2021 [facility] her Neuro, [facility] [place] Knee pain Problem Active 2021-02-17 Me moria (finding) 21:58:10 l Knee García pain (finding) Active Problem 02/17/2021 Medical Group,[facility] her Neuro, [facility] [place] Recurrent Problem Active 2021-02-17 Me moria falls 21:58:10 l (finding) García Recurrent falls (finding) Active Problem 02/17/2021 Medical [facility] her Neuro, [facility] [place] Abdominal Problem Active 2021-02-17 Me moria pain 21:58:10 l (finding) [place] Abdominal pain (finding) Active Problem 02/17/2021 Medical Group,[facility] her Neuro, [facility] [place] Amnesia Problem Active 2021-02-17 José Miguel licha (finding) 21:58:10 l Amnesia [place] (finding) Active Problem 02/17/2021 Medical [facility] her Neuro, [facility] [place] Chronic Problem Active 2021-02-17 José Miguel licha hepatitis 21:58:10 l C Chronic [place] (disorder) hepatitis C (disorder) Active Problem 02/17/2021 Medical Group,[facility] her Neuro, [facility] [place] Diabetes Problem Active 2021-02-17 Mem oria mellitus 21:58:10 l (disorder) Diabetes He rmann mellitus (disorder) Active Problem 02/17/2021 Medical [facility] her Neuro, [facility] [place] Headache Problem Active 2021-02-17 Mem oria (finding) 21:58:10 l Headache Abdi n (finding) Active Problem 02/17/2021 Medical Group,[facility] her Neuro, [facility] [place] Hyperlipid Problem Active 2021-02-17 M emoria emia 21:58:10 l (disorder) Abdi n Hyperlipid emia (disorder) Active Problem 02/17/2021 Medical Group,[facility] her Neuro, [facility] [place] Low back Problem Active 2021-02-17 Mem oria pain 21:58:10 l (disorder) Low back He rmann pain (disorder) Active Problem 02/17/2021 Medical Group,[facility] her Neuro, [facility] [place] Myoclonus Problem Active 2021-02-17 Me moria (finding) 21:58:10 l García Myoclonus (finding) Active Problem 02/17/2021 Medical Group,[facility] her Neuro,[facility] [place] Compressio Problem Active 2021-02-17 M emoria n fracture 21:58:10 l of García thoracic Compressio spine n fracture (disorder) of thoracic spine (disorder) Active Problem 02/17/2021 Medical Group,[facility] her Neuro,[facility] [place] Type II Problem Active 2021-02-17 José Miguel licha diabetes 21:58:10 l mellitus Type II Corine nn uncontroll diabetes ed mellitus (finding) uncontroll ed (finding) Active Problem 02/17/2021 [facility] her Neuro, [facility] [place] Allergies, Adverse Reactions, Alerts Allergy Allergy Status Severity Reaction(s) Onset Inactive Treating Comm ents Source Name Type Date Date Clinician NO KNOWN Drug Active [facility] ALLERGIE Class ity of [facility] NO KNOWN Allergy Active [facility] Family History Family Member Diagnosis Comments Start Date Stop Date Source Natural father No Known Problem [facility] Natural mother No Known Problem [facility] Social History Social Habit Start Date Stop Date Quantity Comments Source History of tobacco Cigarette Smoker [facility] use [facility] Exposure to Not sure [facility] - SARS-CoV-2 (event) [facility] Tobacco use and 2020-12-25 2020-12-25 Never used [facility] - exposure 00:00:00 00:00:00 [facility] Alcohol intake 2020-12-25 2020-12-25 [facility]00 (finding) [facility] Social History 2020-08[facility]23 [facility] 20:12:29 Cigarettes smoked 2016-01-12 2016-01-[address] current (pack per 00:00:00 00:00:00 Hospita l day) - Reported Cigarette 2016-01-12 2016-01-12 [facility] pack-years 00:00:00 00:00:00 Hospital Sex Ass[birth year] At [birth year] MD Ibarra on 00:00:00 00:00:00 Smoking Status Start Date Stop Date Source Current every day smoker 2020-12-25 00:00:00 [facility] Medications Ordered Filled Start Stop Current Ordering Indication Dosage Frequency Signature Comments Components Source Medication Medication Date Date Medication? Clinician (SIG) Name Name Methocarbam 2020-0 Yes 750 mg = 1 Memoria ol 750 MG 8-23 tab, PO, l Oral Tablet 21:56: BID, PRN Delvis winters [Robaxin] 00 Spasms, X 30 day, # 60 tab, 2 Refill(s), Pharmacy: [facility], 147.32, cm, 12/27/20 11:32:00 CDT, Height, 54.545, kg, 12/27/20 11:32:00 CDT, Weight Methocarbam 2020-0 Yes 750 mg = 1 Memoria ol 750 MG 8-23 tab, PO, l Oral Tablet 21:56: BID, PRN Delvis vianey [Robaxin] 00 Spasms, X 30 day, # 60 tab, 2 Refill(s), Pharmacy: [facility], 147.32, cm, 12/27/20 11:32:00 CDT, Height, 54.545, kg, 12/27/20 11:32:00 CDT, Weight Methocarbam 2020-0 Yes 750 mg = 1 Memoria ol 750 MG 8-23 tab, PO, l Oral Tablet 21:56: BID, PRN Delvis vianey [Robaxin] 00 Spasms, X 30 day, # 60 tab, 2 Refill(s), Pharmacy: [facility], 147.32, cm, 12/27/20 11:32:00 CDT, Height, 54.545, kg, 12/27/20 11:32:00 CDT, Weight Hydroxyzine 2020-0 Yes 25 mg = 1 M emoria Hydrochlori 8-23 cap, PO, l de 25 MG 21:55: TID, PRN Corine nn Oral 00 Itching, X Capsule 10 day, # 30 cap, 2 Refill(s), Pharmacy: [facility], 147.32, cm, 12/27/20 11:32:00 CDT, Height, 54.545, kg, 12/27/20 11:32:00 CDT, Weight Hydroxyzine 1-0 Yes 25 mg = 1 M emoria Hydrochlori 8-23 cap, PO, l de 25 MG 21:55: TID, PRN Corine nn Oral 00 Itching, X Capsule 10 day, # 30 cap, 2 Refill(s), Pharmacy: [facility], 147.32, cm, 12/27/20 11:32:00 CDT, Height, 54.545, kg, 12/27/20 11:32:00 CDT, Weight Hydroxyzine 0 Yes 25 mg = 1 M emoria Hydrochlori 8-23 cap, PO, l de 25 MG 21:55: TID, PRN Corine nn Oral 00 Itching, X Capsule 10 day, # 30 cap, 2 Refill(s), Pharmacy: [facility], 147.32, cm, 12/27/20 11:32:00 CDT, Height, 54.545, kg, 12/27/20 11:32:00 CDT, Weight rifAXIMin 0 Yes 550mg Q.5D Take 1 [facility] 550 mg Tab 8-09 tablet [facility] - 00:00: (550 mg Medical 00 total) by Center mouth 2 (two) times daily. simvastatin 0 Yes 20mg QD Take [address] (ZOCOR) 20 7-25 by mouth [facility] - MG tablet 14:17: nightly. Medi iglesia 07 Center metFORMIN 0 Yes 1000mg Take 1,[address] (GLUCOPHAGE 7-25 mg by [facility] - ) 1000 MG 14:17: mouth 2 Medic al tablet 07 (two) Center times daily with breakfast and dinner. lactulose 0 Yes 10g Q.[id number] Take [address] (CHRONULAC) 7-25 [id number] by mouth 3 [facility] - 10 gram/15 14:17: 3D (three) Medi iglesia mL (15 mL) 07 times Center solution daily. gabapentin 2020-0 Yes 300mg Q.[id number] Take [address] (NEURONTIN) 7-25 [id number] mg by L ukes - 300 MG [...] Medi iglesia 07 Center diphenhydrA Yes 25mg Q.[id number] Take [address] MINE 7-25 [id number] by mouth 3 Tom es - (BENADRYL) [...] 50mg Take [address] (ULTRAM) 50 12-24-04 tablet (50 L ukes - mg tablet 00:00: 23:59 mg total) Me dical 00 :00 by mouth Center every 6 (six) hours as needed for Pain for up to 10 days. Max Daily Amount: 200 mg rifAXIMin 2020- No 550mg Q.5D Take [address] 550 mg Tab 12-21-09 tablet [facility] - 00:00: 00:00 (550 mg Medical 00 :00 total) by Center mouth 2 (two) times daily. cefdinir 2020- No 300mg Q.5D Take 1 [facility] (OMNICEF) -14 12- capsule [facility] - 300 MG 00:00: 23:59 [...] prevent confusion sec to liver disease. rifaximin Yes 0 Memoria 550 MG Oral 6-16 Refill(s) l Tablet 15:08: García [XIFAXAN] rifaximin Yes 0 Memoria 550 MG Oral 6-16 Refill(s) l Tablet 15:08: García [XIFAXAN] rifaximin 0 Yes 0 Memoria 550 MG Oral 6-16 Refill(s) l Tablet 15:08: García [XIFAXAN] rifaximin 0 Yes 0 Memoria 550 MG Oral 6-16 Refill(s) l Tablet 15:08: García [XIFAXAN] Methocarbam 2021-0 Yes 750 mg = 1 Memoria ol 750 MG 5-24 tab, PO, l Oral Tablet 19:24: BID, PRN He rmann [Robaxin] 00 Spasms, X 14 day, # 28 tab, 1 Refill(s), Pharmacy: [facility], 149.86, cm, 10/23/20 14:04:00 CDT, Height, 60.483, kg, 10/23/20 14:04:00 CDT, Weight Methocarbam 2020-0 Yes 750 mg = 1 Memoria ol 750 MG 5-24 tab, PO, l Oral Tablet 19:24: BID, PRN He rmann [Robaxin] 00 Spasms, X 14 day, # 28 tab, 1 Refill(s), Pharmacy: [facility], 149.86, cm, 10/23/20 14:04:00 CDT, Height, 60.483, kg, 10/23/20 14:04:00 CDT, Weight Methocarbam 2020-0 Yes 750 mg = 1 Memoria ol 750 MG 5-24 tab, PO, l Oral Tablet 19:24: BID, PRN He rmann [Robaxin] 00 Spasms, X 14 day, # 28 tab, 1 Refill(s), Pharmacy: [facility], 149.86, cm, 10/23/20 14:04:00 CDT, Height, 60.483, kg, 10/23/20 14:04:00 CDT, Weight Methocarbam 2020-0 Yes 750 mg = 1 Memoria ol 750 MG 5-24 tab, PO, l Oral Tablet 19:24: BID, PRN He rmann [Robaxin] 00 Spasms, X 14 day, # 28 tab, 1 Refill(s), Pharmacy: [facility], 149.86, cm, 10/23/20 14:04:00 CDT, [...] on, # 20 tab, 0 Refill(s) Nexium 2020-0 Yes PO, BID, 0 Memor ia 3-24 Refill(s) l 19:30: García Benadryl 2020-0 Yes 25 mg, PO, Mem oria 3-24 TID, 0 l 19:30: Refill(s) García Nexium 2020-0 Yes PO, BID, 0 Memor ia 3-24 Refill(s) l 19:30: García Benadryl 2020-0 Yes 25 mg, PO, Mem oria 3-24 TID, 0 l 19:30: Refill(s) García Nexium 0 Yes PO, BID, 0 Memor ia 3-24 Refill(s) l 19:30: Benadryl Yes 25 mg, PO, Mem oria 3-24 TID, 0 l 19:30: Refill(s) Nexium 0 Yes PO, BID, 0 Memor ia 3-24 Refill(s) l 19:30: Benadryl Yes 25 mg, PO, Mem oria 3-24 TID, 0 l 19:30: Refill(s) simvastatin Yes 20 mg = 1 M emoria 20 mg oral 2-25 tab, PO, l tablet 19:45: Bedtime, # Corine nn 00 90 tab, 1 Refill(s) Metformin Yes 1,000 mg, Mem oria 2-25 PO, BID, 0 l 19:45: Refill(s) gabapentin Yes 300 mg = 1 M [...] emoria 2-25 Daily, 0 l 19:45: Refill(s) propranolol Yes 20 mg = 1 M [...] mL 2-25 Refill(s) l oral and 19:45: [place] rectal 00 liquid Amylases Yes 3 cap, PO, Mem oria [id number] UNT / 2-25 TID, 0 l Endopeptida 19:45: Refill(s) [place] ermann [place] 36805 00 UNT / Lipase 68035 UNT Enteric Coated Capsule [Creon 12] simvastatin [...] mL 2-25 Refill(s) l oral and 19:45: [place] rectal 00 liquid Amylases Yes 3 cap, PO, Mem oria 64381 UNT / 2-25 TID, 0 l Endopeptida 19:45: Refill(s) H ermann [place] 35311 00 UNT / Lipase 45446 UNT Enteric Coated Capsule [Creon 12] simvastatin [...] Corine nn 00 cap, 0 Refill(s) Furosemide 2021-0 Yes 40 mg = 1 Me moria [...] emoria 2-25 Daily, 0 l 19:45: Refill(s) [place] 00 propranolol Yes 20 mg = 1 [...] Amylases Yes 3 cap, PO, Mem oria 58588 UNT / 2-25 TID, 0 l Endopeptida 19:45: Refill(s) H ermann [place] 30691 00 UNT / Lipase 89644 UNT Enteric Coated Capsule [Creon 12] simvastatin Yes 20 mg = 1 M emoria 20 mg oral 2-25 tab, PO, l tablet 19:45: Bedtime, # Corine nn 00 90 tab, 1 Refill(s) Metformin Yes 1,000 mg, Mem oria 2-25 PO, BID, 0 l 19:45: Refill(s) [place] 00 gabapentin Yes 300 mg = 1 [...] tab, PO, l tablet 19:45: Daily, # [place] 00 90 tab, 0 Refill(s) Diphenhydra Yes [...] mL 2-25 Refill(s) l oral and 19:45: [place] rectal 00 liquid Amylases Yes 3 cap, PO, Mem oria 12808 UNT / 2-25 TID, 0 l Endopeptida 19:45: Refill(s) H ermann [place] 52482 00 UNT / Lipase 13152 UNT Enteric Coated Capsule [Creon 12] metFORMIN 2015- Yes 1000mg Q.5D Take 1,000 Methodi (GLUCOPHAGE 8-[address] ) 1000 MG 16:59: mouth 2 Hospi ta tablet 10 (two) l times a day with meals. gabapentin Yes 300mg QD Take 300 Me thodi (NEURONTIN) 8-[address] 300 MG 16:59: mouth Hospita capsule 10 daily. l gabapentin 2015- Yes 600mg QD Take 600 Me thodi [...] day with injection meals. lactulose Yes 10g Q.52114643 Take 10 g [facility]i 10 gram/15 8-14 [id number] mouth [address] mL solution 16:59: 3D (three) Hos iban 10 times a l day. omeprazole 0 Yes 20mg QD Take 20 mg M ethodi (PriLOSEC) 8-[address] 20 MG 16:59: daily. Hospita capsule 10 l multivitami 0 Yes 1{tbl} QD Take 1 Me thodi n 8-[address] (THERAGRAN) 16:59: mouth Hospi ta tablet 10 daily. l ibuprofen 2015-0 Yes 800mg Q6H Take 800 Met hodi [...] Source Name Name Feliz SARS-CoV-2 2020-08-12 Completed MD And erson Vaccination 00:00:00 Vital Signs Vital Name Observation Time Observation Value Comments Source HEIGHT 2021-08-12 16:10:00 149.9 cm WEIGHT 2021-08-12 16:10:00 61.5 kg HEIGHT 2021-08-12 16:10:00 149.9 cm WEIGHT 2021-08-12 16:10:00 61.5 kg HEIGHT 2021-07-03 08:58:00 147.3 cm WEIGHT 2021-07-03 08:58:00 58.106 kg HEIGHT 2021-07-03 08:58:00 147.3 cm WEIGHT 2021-07-03 08:58:00 58.106 kg HEIGHT 2021-04-12 22:00:00 147.3 cm WEIGHT [...] kg Systolic (mm Hg) 2020-12-27 16:28:00 José Miguel Mariano Diastolic (mm Hg) 2020-12-27 16:28:00 Francisco stallings [place] Heart Rate 2020-12-27 16:28:00 [facility] García Respitory Rate 2020-12-27 16:28:00 Serg Chua Height 2020-12-27 16:28:00 147.32 cm [facility] García Weight 2020-12-27 16:28:00 Marta Mariano BMI Calculated 2020-12-27 16:28:00 Serg Chua Systolic blood 2020 11:18:00 129 mm[Hg] [facility] Diastolic blood 2020 11:18:00 68 mm[Hg] [facility] Body temperature 2020 11:18:00 36.39 Mihaela [facility] Respiratory rate 2020 11:18:00 86 /min [facility] Oxygen saturation in 2020 11:18:00 99 /min [facility] - Arterial blood by Medical Ce nter Pulse oximetry Heart rate 2020 07:22:00 93 /min [facility] Body height 2020-12-21 14:23:00 147.3 cm [facility] Body weight 2020-12-21 14:23:00 57.153 kg [facility] BMI 2020-12-21 14:23:00 26.33 kg/m2 [facility] Systolic (mm Hg) 2020-11-15 15:02:00 José Miguel rial García Diastolic (mm Hg) 2020-11-15 15:02:00 Mem orial [place] Heart Rate 2020-11-15 15:02:00 [facility] García Respitory Rate 2020-11-15 15:02:00 Memori al García Height 2020-11-15 15:02:00 147.32 cm [facility] [place] Weight 2020-11-15 15:02:00 [facility] García BMI Calculated 2020-11-15 15:02:00 Memori al García Systolic (mm Hg) 2020-10-23 19:04:00 José Miguel rial [place] Diastolic (mm Hg) 2020-10-23 19:04:00 Mem orial [place] Heart Rate 2020-10-23 19:04:00 [facility] García Height 2020-10-23 19:04:00 149.86 cm [facility] García Weight 2020-10-23 19:04:00 [facility] García BMI Calculated 2020-10-23 19:04:00 Memori al García Height 2020-08-28 16:36:00 147.32 cm [facility] [place] Weight 2020-08-28 16:36:00 [facility] [place] BMI Calculated 2020-08-28 16:36:00 Memori al [place] Systolic (mm Hg) 2020-08-28 16:36:00 José Miguel rial [place] Diastolic (mm Hg) 2020-08-28 16:36:00 Mem orial García Heart Rate 2020-08-28 16:36:00 [facility] García Systolic (mm Hg) 2020-08-23 19:19:00 José Miguel rial García Diastolic (mm Hg) 2020-08-23 19:19:00 [facility] orial [place] Heart Rate 2020-08-23 19:19:00 [facility] García Respitory Rate 2020-08-23 19:19:[facility] [place] Height 2020-08-23 19:19:00 147.32 cm [facility] [place] Weight 2020-08-23 19:19:00 [facility] García BMI Calculated 2020-08-23 19:19:00 [facility] Procedures Procedure Date / Time Performing Source Performed Clinician PREPARE LEUKO-REDUCED PLATELETS [address] [facility] - 23:54:00 [facility] PREPARE LEUKO-REDUCED RBC [address] [facility] - 14:17:00 [facility] CBC W/PLT COUNT & AUTO 2020 [facility] Ning kes - DIFFERENTIAL 05:50:00 [facility] COMPREHENSIVE METABOLIC PANEL [address] [facility] - 05:50:[address] [facility] PROTHROMBIN TIME/INR [address] [facility] - 05:[facility]:00 [facility] POCT-GLUCOSE METER 2020-12-23 [facility] - 21:[facility]:00 [facility] POCT-GLUCOSE [facility] REPORT OF PROCEDURE - ENDOSCOPY 2020-12-[address] [facility] - URL 15:42:28 [facility] REPORT OF PROCEDURE - ENDOSCOPY 2020-12-[address] [facility] - URL 15:19:48 [facility] COLONOSCOPY 2020-12-[address] [facility] - 13:35:00 [facility] ESOPHAGOGASTRODUODENOSCOPY 2020-12-23 Hernando [address] [facility] - (EGD),REMOVAL FOREIGN BODY 13:35:00 [facility] TRANSFUSE LEUKO-REDUCED PLATELETS 2020-12-[address] [facility] - 12:42:33 [facility] TYPE AND SCREEN, AUTOMATED 2020-12-23 [facility] - 08:04:00 [facility] HEMOGLOBIN AND HEMATOCRIT 2020-12-23 [facility]00 [facility] CBC W/PLT COUNT & AUTO 2020-12-[address] [facility] Ning kes - DIFFERENTIAL 05:00:00 [facility] COMPREHENSIVE METABOLIC PANEL 2020[facility]12-[facility]00 [facility] PROTHROMBIN TIME/INR 2020-12-23 [facility] - 05:00:00 [facility] MAGNESIUM 2020-12-23 [facility] - 05:00:00 [facility] HEMOGLOBIN AND HEMATOCRIT 2020-12-22 [facility] - 18:17:00 [facility] POCT-GLUCOSE METER 2020-12-[address] [facility] [address] [facility] - 05:27:00 [facility] SARS-COV2/RT-PCR ([facility]) 2020-12-22 Fransico Dudley [facility] - 05:26:00 [facility] CBC W/PLT COUNT & AUTO 2020-12-22 Jose, [facility] - DIFFERENTIAL 03:59:00 [facility] BASIC METABOLIC PANEL (7) 2020-12-22 Jose, [facility] - 03:59:00 [facility] HEPATIC FUNCTION PANEL 2020-12-22 Jose, [facility] N[facility] k[facility] - 03:59:00 [facility] PHOSPHORUS 2020-12-22 Jose, [facility] - 03:59:00 [facility] MAGNESIUM 2020-12-22 Jose, [place] [facility] - 03:59:00 [facility] POCT-GLUCOSE METER 2020-12-[address] [facility] - 01:12:00 [facility] LACTIC ACID, VENOUS 2020-12-[address] [facility] - 19:03:00 [facility] PROTHROMBIN TIME/INR 2020-12-[address] [facility] - 19:03:00 [facility] APTT 2020-12-[address] [facility] - 19:03:00 [facility] AMMONIA 2020-12-[address] [facility] - 19:03:00 [facility] BLOOD CULTURE 2020-12-[address] [facility] - 19:02:00 [facility] BASIC METABOLIC PANEL (7) 2020-12-21 [facility] - 15:52:00 [facility] HEPATIC FUNCTION PANEL 2020-12-[address] [facility] - 15:52:00 [facility] CBC W/PLT COUNT & AUTO 2020-12-[address] [facility] - DIFFERENTIAL 15:52:00 [facility] BASIC METABOLIC PANEL (7) 2020-12-20 Plaza, Line [facility] - 11:59:00 [facility] HEPATIC FUNCTION PANEL 2020-12-20 [facility] - 11:59:00 [facility] CBC W/PLT COUNT & AUTO 2020-12-20 [facility] - DIFFERENTIAL 11:59:00 [facility] PROTHROMBIN TIME/INR 2020-12-20 [facility] - 11:59:00 [facility] POCT-GLUCOSE METER 2020-12-[address] [facility] - 16:31:00 [facility] POCT-GLUCOSE METER 2020-12-[address] [facility] - 11:41:00 [facility] POCT-GLUCOSE METER 2020-12-[address] [facility] - 07:14:00 Medical Center CALCIUM, IONIZED 2020-12-[address] [facility] - 03:35:00 Medical Center COMPREHENSIVE METABOLIC PANEL 2020-12-[address] [facility] - 03:35:00 [facility] [place] MAGNESIUM 2020-12-[address] [facility] - 03:35:00 [facility] [place] PHOSPHORUS 2020-12-13 Dorian Junget [facility] - 03:35:00 [facility] CBC W/PLT COUNT & AUTO 2020-12-[address] [facility] - DIFFERENTIAL 03:35:00 [facility] POCT-GLUCOSE METER 2020-12-[address] [facility] - 22:16:00 [facility] POCT-GLUCOSE METER 2020-12-[address] [facility] - 16:51:00 [facility] HEMOGLOBIN AND HEMATOCRIT 2020-12-[address] [facility] - 15:58:00 [facility] POCT-GLUCOSE METER 2020-12-[address] [facility] - 11:39:00 [facility] POCT-GLUCOSE METER 2020-12-[address] [facility] - 08:06:00 [facility] CALCIUM, IONIZED 2020-12-[address] [facility] - 03:34:00 [facility] COMPREHENSIVE METABOLIC PANEL 2020-12-[address] [facility] MAGNESIUM 2020-12-[address] [facility] - 03:34:00 [facility] PHOSPHORUS 2020-12-[address] [facility] - 03:34:00 [facility] CBC W/PLT COUNT & AUTO 2020-12-[address] [facility] - DIFFERENTIAL 03:34:00 [facility] PREPARE LEUKO-REDUCED RBC 2020-12-[address] [facility] - 23:54:00 [facility] PREPARE LEUKO-REDUCED PLATELETS 2020-12-[address] [facility] - 23:54:00 [facility] POCT-GLUCOSE METER 2020-12-[address] [facility] - 21:46:00 [facility] HEMOGLOBIN AND HEMATOCRIT 2020-12-[address] [facility] - 18:15:00 [facility] POCT-GLUCOSE METER 2020-12-[address] [facility] - 17:50:00 [facility] HEPATITIS B E ANTIGEN 2020-12-[address] [facility] - 14:50:00 [facility] HEPATITIS B E ANTIBODY 2020-12-[address] [facility] - 14:49:00 [facility] HEPATITIS B SURFACE ANTIBODY 2020-12-[address] [facility] - 14:49:00 [facility] POCT-GLUCOSE METER 2020-12-[address] [facility] - 12:02:00 [facility] POCT-GLUCOSE METER 2020-12-[address] [facility] - 07:59:00 [facility] ACTIN (SMOOTH MUSCLE) ANTIBODY, 2020-12-[address] [facility] - IGG 05:11:00 [facility] ANTI-MITOCHONDRIAL AB, REFLEX TO 2020-12-[address] [facility] - TITER 05:11:00 [facility] CALCIUM, IONIZED 2020-12-[address] [facility] - 05:11:00 [facility] COMPREHENSIVE METABOLIC PANEL 2020-12-[address] [facility] - 05:11:00 [facility] MAGNESIUM 2020-12-[address] [facility] - 05:11:00 [facility] PHOSPHORUS 2020-12-[address] [facility] - 05:11:00 [facility] CBC W/PLT COUNT & AUTO 2020-12-[address] [facility] - DIFFERENTIAL 05:11:00 [facility] MITOCHONDRIAL AB SCREEN 2020-12-[address] [facility] - 05:11:00 [facility] MITOCHONDRIAL AB TITER 2020-12-11 Zindani[facility] Asha [facility] 05:11:00 [facility] TRANSFUSE LEUKO-REDUCED PLATELETS 2020-12-[address] [facility] - 01:55:57 [facility] PREPARE LEUKO-REDUCED PLATELETS 2020-12-[address] [facility] - 23:54:00 [facility] HEMOGLOBIN AND HEMATOCRIT 2020-12-[address] [facility] - 23:37:00 [facility] POCT-GLUCOSE METER 2020-12-[address] [facility] - 21:39:00 [facility] POCT-GLUCOSE METER 2020-12-[address] [facility] - 16:25:00 [facility] REPORT OF PROCEDURE - ENDOSCOPY 2020-12-[address] [facility] URL 16:01:18 [facility] UPPER ENDOSCOPY,BANDING 2020-12-[address] [facility] 15:28:00 [facility] CBC W/PLT COUNT & AUTO 2020-12-[address] [facility] [facility] - DIFFERENTIAL 13:31:00 [facility] TRANSFUSE LEUKO-REDUCED RED BLOOD 2020-12-[address] [facility] - CELLS 13:23:55 [facility] POCT-GLUCOSE METER 2020-12-[address] [facility] - 11:33:00 [facility] POCT-GLUCOSE METER 2020-12-[address] [facility] - 07:09:00 [facility] PROTHROMBIN TIME/INR 2020-12-[address] [facility] - 05:12:00 [facility] COMPREHENSIVE METABOLIC PANEL 2020-12-[address] [facility] - 05:12:00 [facility] HEMOGLOBIN A1C 2020-12-[address] [facility] - 05:12:00 [facility] CALCIUM, IONIZED 2020-12-[address] [facility] - 05:12:00 [facility] MAGNESIUM 2020-12-[address] [facility] - 05:12:00 [facility] PHOSPHORUS 2020-12-[address] [facility] - 05:12:00 [facility] CBC W/PLT COUNT & AUTO 2020-12-10 Erich Morgan [facility] - DIFFERENTIAL 05:12:00 [facility] TRANSFUSE LEUKO-REDUCED PLATELETS 2020-12-[address] [facility] - 01:43:15 [facility] POCT-GLUCOSE METER 2020-12-[address] [facility] - 23:28:00 [facility] US ABDOMINAL WITH DOPPLER 2020-12-09 Keith Lyndsey [facility] - 23:15:00 [facility] ABORH, MANUAL 2020-12-09 Doe Lucy [facility] - 20:12:00 [facility] HEMOGLOBIN AND HEMATOCRIT 2020-12-09 Odilia Asha [facility] - 19:09:00 [facility] TYPE AND SCREEN, AUTOMATED 2020-12-[address] [facility] - 19:01:00 [facility] BLOOD CULTURE 2020-12-09 Joesph, Juan [facility] - 17:17:00 [facility] URINE CULTURE 2020-12-09 Joesph, Juan [facility] - 17:13:00 [facility] URINALYSIS W/ REFLEX URINE CULTURE 2020-12-09 Joesph, Juan [facility] - 17:13:00 [facility] AMMONIA 2020-12-09 Odilia Asha [facility] - 17:10:00 [facility] BLOOD CULTURE 2020-12-09 [facility] 17:09[facility]00 [facility] HC LAB HIV-1 AG W/HIV-1&2 AB 2020-12-09 Joesph, Juan [facility] - 17:09:00 [facility] YORVL-7-BDZHDEMSBIO\, SERUM 2020-12-09 Joesph, Juan [facility] - 17:09:00 [facility] ANTI-NUCLEAR ANTIBODY (AARON) 2020-12-09 [facility]ph[facility] 17:09:00 [facility] HEPATITIS A ANTIBODY, IGG 2020-12-[address] [facility] - 17:09:00 [facility] DRUG SCREEN, URINE, TRANSPLANT 2020-12-[address] [facility] - 15:30:00 [facility] MISCELLANEOUS LAB ORDER 2020-12-[address] [facility] [facility] - 15:22:00 [facility] CBC W/PLT COUNT & AUTO 2020-12-[address] [facility] - DIFFERENTIAL 15:21:00 [facility] COMPREHENSIVE METABOLIC PANEL 2020-12-[address] [facility] - 15:21:00 [facility] HEPATITIS B CORE ANTIBODY, TOTAL 2020-12-[address] [facility] - 15:21:00 [facility] HEPATITIS C PCR, QUANTITATIVE 2020-12-[address] [facility] - 15:21:00 [facility] HEPATITIS PANEL, ACUTE 2020-12-[address] [facility] - 15:21:00 [facility] HEPATITIS B PCR, QUANTITATIVE 2020-12-09 Joesph[facility] - 15:21:00 [facility] CARCINOEMBRYONIC ANTIGEN (CEA) 2020-12-09 Jo[address] [facility] - 15:21:00 [facility] CERULOPLASMIN 2020-12-09 Joesph, Alisonfai [facility] - 15:21:00 [facility] COPPER 2020-12-09 Joesph, Alisonfai [facility] - 15:21:00 [facility] FERRITIN 2020-12-09 Joesph, Tesfai [facility] - 15:21:00 [facility] ACETAMINOPHEN LEVEL 2020-12-09 Joesph, Tesfai [facility] - 15:21:00 [facility] ALPHA FETOPROTEIN (AFP), TUMOR 2020-12-09 Joesph, Alisonfai [facility] - MARKER 15:21:00 [facility] CARBOHYDRATE ANTIGEN 19-9 (CA 2020-12-09 Joesph, Tesfai [facility] - 19-9) 15:21:00 [facility] VITAMIN D, 25-HYDROXY 2020-12-09 Joesph, Juan [facility] 15:21:00 [facility] ZINC 2020-12-09 Joesph, Alisonfai [facility] - 15:21:00 [facility] IRON, TIBC, % SAT. (WITHOUT 2020-12-09 Joesph, Alisonfai [facility] - FERRITIN) 15:21:00 [facility] Arthroscopy [facility] section [facility] Care Planned Activity Planned Date Details Comments Source Future Scheduled 2030-12-[address] [facility] Test 00:00:00 malignant neoplasm of Medica l Center colon (procedure) [code = 931435436] Future Scheduled 2021-01-31 INFLUENZA VACCINE (#1) [facility] 00:00:00 [code = INFLUENZA Medical Ce nter VACCINE (#1)] Future Scheduled 2020-10-[address] [facility] Test 00:00:00 (procedure) [code = [facility] [id number]] Future Scheduled 2020-09-30 Medicare IPPE (WELCOME [facility] Test 00:00:00 TO MEDICARE) [code = [facility] Medicare IPPE (WELCOME TO MEDICARE)] Future Scheduled 2017-12-23 SHINGLES VACCINES ([address] [facility] - Test 00:00:00 of 2) [code = SHINGLES Medic al Center VACCINES (1 of 2)] Future Scheduled 1988-12-[address] [facility] Test 00:00:00 [facility] cervix (procedure) [code = 421986990] Future Scheduled 1986-12-23 DTAP/TDAP/TD VACCINES [facility] I [...] Medica l Center breast (procedure) [code = 921738737] Future Scheduled COVID-19 [facility] ([facility] [code = COVID-19 VACCINE (1)] Future Scheduled Screening for [facility] Test malignant neoplasm of cervix (procedure) [code = 071196153] Future Scheduled BREAST CANCER [facility] Test SCREENING [code = BREAST CANCER [...] Date/Time Type Type Clinicians Facility Department ID 2021-08-14 [facility] [id number] 09[facility]17[facility]03 [facility] 2021-08-13 [facility] [id number] 15:16:01 Phylicia [id number] [facility] 2021-07-19 [facility] [id number] 17[facility]19:00 Phylicia 74461 [facility] 2021-07-18 [facility] [id number] 10[facility]01:04 Phylicia 91576 [facility] 2021-04-17 Outpatient SHAHID JAIN, [facility] Surgery [id number] [facility] 09:20:49 [facility] 2021-04-02 Outpatient Lele MAHMOOD [facility] GISaba [id number] Univers 07:49:43 SP ity o f [facility] 2021-04-02 Emergency [facility] [id number] Univers 02:23:15 ity [facility] 2021-04-01 Emergency [facility] [id number] Univers 23:18:10 ity [facility] 2021-04-01 Emergency [facility] [id number] Univers 19:20:57 ity [facility] 2021-03-31 Emergency [facility] [id number] Univers 07:39:48 ity [facility] 2021-03-31 Emergency [facility] [id number] Univers 06:08:00 ity [facility] 2021-03-11 Inpatient ER PHILLIP DUDLEY [facility] [id number] [facility] 08:43:11 MERE 2020-12-09 Inpatient ER PHILLIP PARKER [facility] [id number] [facility] 13:19:00 LYNDSEY 2021-10-02 2021-10-02 [id number] [facility] 00:00:00 00:00:00 2021-10-02 2021-10-02 Outpatient EL SIDNEY [facility] [id number] SLE 00:00:00 00:00:00 ANN 2021-08-15 2021-08-15 ambulatory [facility] [id number] [facility] 2021-08-15 2021-08-15 ambulatory [facility]LMLC [facility] [id number] [facility] 2021-08-12 2021-08-13 [facility] Emergency [id number] SLE 16:14:00 00:17:00 CJ 2021-08-12 2021-08-12 Outpatient BCM [facility] [id number] [facility] 00:00:00 23:59:00 Steven Medicin e 2021-08-10 2021-08-10 ambulatory [facility]LMLC [facility] [id number] [facility] 2021-07-18 2021-07-18 ambulatory [facility]LMLC [facility] [id number] [facility] 2021-07-03 2021-07-03 Outpatient EL [facility] [id number] SLE 11:04:13 11:04:13 2021-07-03 2021-07-03 Outpatient EL SIDNEY [facility] [id number] [facility] 08:52:29 08:52:29 ANN 2021-06-29 2021-06-29 [id number] Memoria 15:00:00 15:00:00 12 l García 2021-04-12 2021-04-14 Outpatient ER QUEVEDO, [facility] [id number] [facility] 17:00:00 13:56:00 URBAN 2021-04-12 2021-04-12 Outpatient [facility] [id number] [facility] 00:00:00 23:59:00 Steven Medicin saba 2021-04-12 2021-04-12 Outpatient EL STEFANIE, SLE SLE [id number] [facility] 12:58:25 16:59:00 RISE 2021-04-12 2021-04-12 Outpatient EL STEFANIE, [facility] SLE [id number] [facility] 08:01:59 12:57:00 RISE 2021-04-12 2021-04-12 Outpatient EL STEFANIE, [facility] SLE [id number] [facility] 08:01:49 12:57:00 RISE 2021-04-12 2021-04-12 Outpatient EL STEFANIE, [facility] SLE [id number] [facility] 08:01:39 12:57:00 RISE 2021-04-12 2021-04-12 Outpatient EL STEFANIE, [facility] SLE [id number] [facility] 08:01:30 08:00:00 RISE 2021-04-11 2021-04-11 Outpatient EL STEFANIE, [facility] SLE [id number] [facility] 12:47:22 23:59:00 RISE 2021-04-11 2021-04-11 Outpatient EL STEFANIE, [facility] SLE [id number] [facility] 12:47:08 23:59:00 RISE 2021-04-11 2021-04-11 Outpatient EL DEE, [facility] SLE [id number] [facility] 11:37:08 11:37:08 ANNMARIE 2021-04-11 2021-04-11 Outpatient EL SLEH [facility] [id number] [facility] 11:19:24 11:19:24 2021-04-11 2021-04-11 Outpatient EL [facility] SLE [id number] [facility] 07:15:14 07:15:14 2021-04-11 2021-04-11 Outpatient EL [facility]H [facility] [id number] [facility] 07:14:55 07:14:55 2021-04-11 2021-04-11 Outpatient EL SLEH [facility] [id number] [facility] 07:14:31 07:14:31 2021-04-11 2021-04-11 Outpatient EL ELODIA HERNANDEZ SLE [facility] [id number] [facility] 07:14:11 07:14:11 2021-04-11 2021-04-11 Outpatient EL SLE SLE [id number] [facility] 07:13:49 07:13:49 2021-04-11 2021-04-11 Outpatient EL STEFANIE SLE SLE [id number] [facility] 00:00:00 00:00:00 RISE 2021-03-23 2021-03-25 Outpatient ER PRIYANKA, [facility] Emergency [id number] [facility] 13:26:00 11:59:00 BEV 2021-03-23 2021-03-23 Outpatient EL BIBI [facility] SLE [id number] SLE[facility] 11:33:16 11:33:16 ZAINAB 2021-03-07 2021-03-10 Inpatient ER ADAM, [facility] Emergency 20 [id number] [facility] 18:46:00 14:03:00 IGOR 2021-03-09 2021-03-09 Outpatient R LENIN [facility] [id number] [facility] 16:00:00 16:00:00 SP [id number] [facility] 2021-03-08 2021-03-08 Outpatient EL SLE SLE [id number] SLE 00:00:00 00:00:00 2021-03-07 2021-03-07 Outpatient [facility] [id number] [facility] 00:00:00 23:59:00 Mayte 2021-03-07 2021-03-07 Outpatient EL SILVANO SLE SLE [id number] SLEH 12:14:44 18:45:00 ELODIA 2021-03-05 2021-03-05 Outpatient R [facility] [id number] Univers 12:00:00 12:00:00 [id number] ity of [facility] 2021-02-19 2021-02-19 Outpatient EL [facility] [id number] SLE 00:00:00 00:00:00 2021-02-14 2021-02-15 Between nullFlavo [facility] [id number] Memoria 18:53:37 18:53:37 Visit r Primary 03 [facility] 2021-02-07 2021-02-07 Outpatient [facility] [id number] SLE 00:00:00 00:00:00 2021-01-30 2021-01-31 Between nullFlavo MG [id number] Memoria 21:46:37 21:46:37 Visit r Primary 02 [facility] 2021-01-22 2021-01-23 Between nullFlavo [facility] [id number] Memoria 14:35:17 14:35:17 Visit r Primary 01 [facility] 2021-01-22 2021-01-23 [place] [id number] Memoria 21:00:00 04:59:59 r Primary 13 [facility] 2021-01-01 2021-01-03 Phone nullFlavo MG [id number] Memoria 17:46:17 04:59:59 Message r Primary 00 [facility] 2020-12-27 2020-12-28 Outpatient nullFlavo MNA [id number] Memoria 16:15:00 04:59:59 r Neurology 09 l Nela Mariano 2020-12-21 2020-12-21 Emergency ER [facility] Emergency [id number] SLE 14:14:00 14:14:00 2020-12-20 2020-12-21 Outpatient nullFlavo MNA [id number] Memoria 21:00:00 04:59:59 r Neurology 11 l Withams García 2020-12-20 2020-12-20 Outpatient [facility] [id number] SLE 00:00:00 00:00:00 2020-12-08 2020-12-08 [facility] ICU [id number] 00:00[facility]00 00:00:00 Encounter [facility] 2020-12-06 2020-12-07 Outpt Diag nullFlavo [facility] [id number] Memoria 22:19:00 04:59:00 Services r Outpatient 03 l Imaging [facility] 2020-12-06 2020-12-06 Ambulatory nullFlavo MNA [id number] Memoria 15:00:00 15:00:00 Pre-Reg r Neurology 10 l Nela Mariano 2020-12-01 2020-12-01 Office [facility], [facility] [id number] 08:35:38 11:02:59 Visit Sp ARORA [id number] IAY [id number] CENTER [id number] [facility] 2020-12-01 2020-12-01 Outpatient R [facility] [id number] Univers 08:45:00 08:45:00 [id number] [facility] 2020-12-01 2020-12-01 Outpatient R [facility] [id number] Univers 08:45:00 08:45:00 [facility] 2020-11-15 2020-11-16 Outpatient nullFlavo MNA [id number] Memoria 14:30:00 04:59:59 r Neurology 08 l Nela Mariano 2020-10-23 2020-10-24 Outpatient nullFlavo [facility] [id number] Memoria 19:00:00 04:59:59 r Primary 06 l [facility] 2020-10-18 2020-10-18 Ambulatory nullFlavo MNA [id number] Memoria 19:00:00 19:00:00 Pre-Reg r Neurology 07 l Nela Mariano 2020-10-11 2020-10-11 Ambulatory nullFlavo MNA [id number] Memoria 19:15:00 19:15:00 Pre-Reg r Neurology 05 l Nela Mariano 2020-09-06 2020-09-06 Ambulatory nullFlavo MNA [id number] Memoria 18:00:00 18:00:00 Pre-Reg r Neurology 04 l Nela aMriano 2020-08-28 2020-08-29 [place] [id number] Memoria 16:30:00 04:59:59 r Primary 03 l [facility] 2020-08-26 2020-08-26 [id number] 2020-08-24 Outpatient nullFlavo MNA [id number] Memoria 19:15:00 04:59:59 r Neurology 02 l [place] [place] 2020-08-12 2020-08-12 Outpatient EL MDA MDA [id number] MD 12:07:04 12:07:04 Fredyenny yoo 2020-07-27 2020-07-28 [place] [id number] Memoria 19:30:00 05:59:59 r Primary 01 l [facility] 2020-07-27 2020-07-27 [place] [id number] Memoria 19:30:00 19:30:00 Pre-Reg r Primary 00 l [facility] 2019-07-16 2019-07-18 Outpatient U TARAH [facility] NO [id number] Univers 13:36:00 12:15:00 VIC [facility] 2019-06-30 2019-07-04 Inpatient X JUAN JOSE [facility] NO [id number] Univers 17:39:25 13:45:00 MARIVEL [facility] 2019-04-20 2019-04-21 Emergency X ELFEGO [facility] ERT [id number] Univers 19:26:38 00:10:00 NISHA [facility] 2019-02-14 2019-02-19 Inpatient X MARIO HASEEB [facility] [place] [id number] Univers 13:52:02 12:14:00 [facility] 2019-01-21 2019-01-22 Outpatient X MITZI [facility] NO [id number] Univers 18:13:19 12:17:00 ISAAC [facility] 2018-09-05 2018-09-05 Emergency X GENESIS [facility] ERT [id number] Univers 15:33:18 23:07:00 STEVEN [facility] 2007-04-06 2007-04-06 Outpatient [facility] [id number] Univers 00:00:00 14:24:00 4 [facility] 2007-03-05 2007-03-05 Outpatient [facility] [id number] Univers 00:00:00 16:59:00 6 [facility] Results Test Description Test Time Test Comments Results Result Comments Source URINALYSIS W/ REFLEX URINE CULTURE 2021-08-12 21:37:32 Test Item Value Reference Range Interpretation Comme nts COLOR (BEAKER) (test code = 470) Light Yellow CLARITY (BEAKER) (test code = 469) Clear SPECIFIC GRAVITY UA (BEAKER) (test code = 468) 1.012 1.001-1 .035 PH UA (BEAKER) (test code = 467) 5.5 5.0-8.0 PROTEIN UA (BEAKER) (test code = 464) Negative Negative GLUCOSE UA (BEAKER) (test code = 365) Negative Negative KETONES UA (BEAKER) (test code = 371) Negative Negative BILIRUBIN UA (BEAKER) (test code = 462) Negative Negative BLOOD UA (BEAKER) (test code = 461) Negative Negative NITRITE UA (BEAKER) (test code = 465) Negative Negative LEUKOCYTE ESTERASE UA (BEAKER) (test code = 466) Negative Negat kimberly UROBILINOGEN UA (BEAKER) (test code = 463) 0.2 mg/dL 0.2-1.0 RBC UA (BEAKER) (test code = 519) 0 /HPF WBC UA (BEAKER) (test code = 520) 0 /HPF BACTERIA (BEAKER) (test code = 517) Rare SQUAMOUS EPITHELIAL (BEAKER) (test code = 516) < /HPF CRYSTALS, URINE (BEAKER) (test code = 1521) None Seen SOURCE(BEAKER) (test code = 2795) Water Pollution Control Inspector ID - [auto]Water Pollution Control Inspector ID - techCT, CHEST WITH IV CONTRAST- PE TEST DESIGN 2021-08-12 21:29:00Unlisted Reason for Exam - Click Yes and Enter Reason Below->NoSUZE [facility] : 1965 Sex: FFINAL REPORT CLINICAL HISTORY: PE suspected, intermediate prob, posit kimberly D-dimer FINDINGS: Multiple axial images of the chest were performed after the uncomplicated administration of IV contrast, utilizing a pulmonary embolism protocol. Post-processing coronal reformatswere created and interpreted. This exam was performed according to our departmental dose-optimization program, which includes automated exposure control, adjustment of the mA and/or kV according to patient size and/or use of the iterative reconstruction technique. Study quality:Adequate. Comparison:None. Pulmonary arteries: No pulmonary embolism. Lung parenchyma: No significant findings. Pleural effusion: None. Pneumothorax: None. Tracheobronchial tree: No significant findings. Pulmonary vasculature: No significant findings. Cardiac contours and great vessels: No significant findings. Mediastinum: No significant findings. Lymph Nodes: No adenopathy in the mediastinum or tom. Skeleton: Age indeterminant moderate compression deformity of the vertebral body of T4 Limited images of upper abdomen: Cirrhotic hepatic morphology. Partially visualized splenomegaly. IMPRESSION: No pulmonary embolism oracute cardiopulmonary abnormality. Age indeterminate moderate compression deformity of the vertebralbody of T4. Please correlate with clinical history. Cirrhotic hepatic morphology and partially visualized splenomegaly. Signed: Hi Crowley MDReport Verified Date/Time: 08/12/2021 21:29:40 HIGH SENSITIVITY TROPONIN [id number] 20:29:42 Test Item Value Reference Range Interpretation Comments HIGH SENSITIVITY < pg/ml See_Comment [Automated message] TROPONIN I (test code = The system which [id number]) generated this result transmitted ref erence range: <=17. Th e reference range was not used to interpr et this result as normal/abnormal . Water Pollution Control Inspector ID - [id number] ACCOUNTING GENERALIST STAT High Sensitivity Troponin-I results should be used in conjunctionwith other diagnostic information such as ECG, clinical observations and information, and patient symptoms to aid in the diagnosis of [place].SARS-COV2/RT-PCR ([facility])2021-08-12 18:48:38 Test Item Value Reference Range Interpretation Comments SARS-COV2/RT-PCR Negative Negative The SARS-Co V-2 target (test code = nucleic acids a re not [id number]) detected in thi s specimen. Negative result [...] revoked sooner. Fact Sheet for Healthcare Providers: https://www.[employer]/Documents/Xpert%20Xpress%20SARS%20CoV-2/Fact%20Sheets/236-4245%20SARS-COV -2%20HEALTHCARE%20PROVIDERS%20FACT%20SHEET.pdf Fact Sheet for Healthcare Patients: https://www.[employer]/Documents/Xpert %20Xpress%20SARS%20CoV-2/Fact%20Sheets/863-7010%85BAUX-GSF-1%20PATIENT%20FACT%20 SHEET.nviT-[id number] 17:19:51 Test Item Value Reference Range Interpretation Comments D-DIMER QUANTITATIVE (BEAKER) 3.72 MG/L FEU <0.50 H (test code = 671) Intended Use: The D-Dimer Assay can be used to aid in the diagnosis of Deep Vein Thrombosis (DVT) and Pulmonary Embolism Disease (PED).In patients with low pre- test probability, various studies concerning STA Liatest D-dimer test have reported that with a cutoff value of 0.50 MG/L FEU, the Negative Predictive Value (NPV) regarding the exclusion of thrombosis is within 95-100% range. PT/[id number] 17:17:52 Test Item Value Reference Range Interpretation Comments PROTIME (BEAKER) (test 14.5 seconds 11.9-14.2 H code = 759) INR (BEAKER) (test 1.15 See_Comment [Automat ed code = 370) message] The sy stem which generated this result transmitted reference range : <=5.90. The reference range was not used to interpret this result as normal/abnormal . PARTIAL THROMBOPLASTIN 29.1 seconds 22.5-36.0 TIME (BEAKER) (test code = 760) RECOMMENDED COUMADIN/WARFARIN INR THERAPY RANGESSTANDARD DOSE: 2.0 - 3.0 Includes: PROPHYLAXIS forvenous thrombosis, systemic embolization; TREATMENT for venous thrombosis and/or pulmonary embolus.HIGH RISK: Target INR is 2.5-3.5 for patients with mechanical heart valves.RAD, CHEST, 1 VIEW, NON [id number] 17:15:00Reason for exam:->CHEST PAINShould this be performed at the bedside?->YesSUZE [facility] : 1965 Sex: FFINAL REPORT INDICATION: CHEST PAIN COMPARISON: 04/11/21 TECHNIQUE: Si ngle frontal view of the chest. FINDINGS: Lungs and pleura: Clear lungs. No effusion.Heart and mediastinum: Normal heart size. Unremarkable mediastinal contours.Osseous structures: No acute abnormality.Other: None. IMPRESSION: No acute intrathoracic abnormality. Signed: Natasha Salamanca MDReport Verified Date/Time: 08/12/2021 17:15:07 B-TYPE NATRIURETIC FACTOR (BNP)2021-08-12 17:08:30 Test Item Value Reference Range Interpretation Comments B-TYPE NATRIURETIC PEPTIDE (BEAKER) 215 pg/mL 0-100 H (test code = 700) Water Pollution Control Inspector ID - PIAYA LHIGH SENSITIVITY TROPONIN [id number] 17:08:09 Test Item Value Reference Range Interpretation Comments HIGH SENSITIVITY < pg/ml See_Comment [Automated message] TROPONIN I (test code = The system which [id number]) generated this result transmitted ref erence range: <=17. Th e reference range was not used to interpr et this result as normal/abnormal . Water Pollution Control Inspector ID - PIAYA LThe ACCOUNTING GENERALIST STAT High Sensitivity Troponin-I results should be used in conjunction with other diagnostic information such as ECG, clinical observations and information, and patient symptoms to aid in the diagnosis of KS.COMPREHENSIVE METABOLIC [id number] 17:02:31 Test Item Value Reference Range Interpretation Comments TOTAL PROTEIN 7.3 gm/dL 6.0-8.3 (BEAKER) (test code = 770) ALBUMIN (BEAKER) 3.7 g/dL 3.5-5.0 (test code = 1145) ALKALINE PHOSPHATASE 104 U/L 40-150 (BEAKER) (test code = 346) BILIRUBIN TOTAL 0.5 mg/dL 0.2-1.2 (BEAKER) (test code = 377) SODIUM (BEAKER) (test 139 meq/L 136-145 code = 381) POTASSIUM (BEAKER) 4.4 meq/L 3.5-5.1 (test code = 379) CHLORIDE (BEAKER) 107 meq/L 98-107 (test code = 382) CO2 (BEAKER) (test 22 meq/L 22-29 code = 355) BLOOD UREA NITROGEN 16 mg/dL 7-21 (BEAKER) (test code = 354) CREATININE (BEAKER) 1.11 mg/dL 0.57-1.25 (test code = 358) GLUCOSE RANDOM 183 mg/dL 70-105 H (BEAKER) (test code = 652) CALCIUM (BEAKER) 9.6 mg/dL 8.4-10.2 (test code = 697) AST (SGOT) (BEAKER) 44 U/L 5-34 H (test code = 353) ALT (SGPT) (BEAKER) 31 U/L 6-55 (test code = 347) EGFR (BEAKER) (test 51 mL/min/1.73 ESTIMA GABY GFR IS code = 1092) sq m NOT ACCURATE CREATININE CLEARANCE IN PREDICTING GLOMERULAR FILTRATION RATE . ESTIMATED GFR I S NOT APPLICABLE FOR DIALYSIS PATIEN TS. Water Pollution Control Inspector ID - DENA [id number] 17:02:31 Test Item Value Reference Range Interpretation Comments MAGNESIUM (BEAKER) (test code = 1.7 mg/dL 1.6-2.6 627) Water Pollution Control Inspector ID - DENA [id number] 17:02:31 Test Item Value Reference Range Interpretation Comments LIPASE (BEAKER) (test code = 749) 119 U/L 8-78 H Water Pollution Control Inspector ID - DENA [id number] 16:59:45 Test Item Value Reference Range Interpretation Comments AMMONIA (BEAKER) 67 mol/L 18-72 Specimen sl ightly (test code = 348) hemolyzed Water Pollution Control Inspector ID - DENA LCBC W/PLT COUNT & AUTO [id number] 16:48:21 Test Item Value Reference Range Interpretation Comments WHITE BLOOD CELL COUNT (BEAKER) 3.1 K/ L 3.5-10.5 L (test code = 775) RED BLOOD CELL COUNT (BEAKER) 3.52 M/ L 3.93-5.22 L (test code = 761) HEMOGLOBIN (BEAKER) (test code = 10.4 GM/DL 11.2-15.7 L 410) HEMATOCRIT (BEAKER) (test code = 33.8 % 34.1-44.9 L 411) MEAN CORPUSCULAR VOLUME (BEAKER) 96.0 fL 79.4-94.8 H (test code = 753) MEAN CORPUSCULAR HEMOGLOBIN 29.5 pg 25.6-32.2 (BEAKER) (test code = 751) MEAN CORPUSCULAR HEMOGLOBIN CONC 30.8 GM/DL 32.2-35.5 L (BEAKER) (test code = 752) RED CELL DISTRIBUTION WIDTH 14.9 % 11.7-14.4 H (BEAKER) (test code = 412) PLATELET COUNT (BEAKER) (test code 37 K/CU MM 150-450 L = 756) MEAN PLATELET VOLUME (BEAKER) 12.1 fL 9.4-12.3 (test code = 754) NUCLEATED RED BLOOD CELLS (BEAKER) 0 /100 WBC 0-0 (test code = 413) NEUTROPHILS RELATIVE PERCENT 56 % (BEAKER) (test code = 429) LYMPHOCYTES RELATIVE PERCENT 19 % (BEAKER) (test code = 430) MONOCYTES RELATIVE PERCENT 14 % (BEAKER) (test code = 431) EOSINOPHILS RELATIVE PERCENT 10 % (BEAKER) (test code = 432) BASOPHILS RELATIVE PERCENT 0 % (BEAKER) (test code = 437) NEUTROPHILS ABSOLUTE COUNT 1.73 K/ L 1.56-6.13 (BEAKER) (test code = 670) LYMPHOCYTES ABSOLUTE COUNT 0.60 K/ L 1.18-3.74 L (BEAKER) (test code = 414) MONOCYTES ABSOLUTE COUNT (BEAKER) 0.43 K/ L 0.24-0.36 H (test code = 415) EOSINOPHILS ABSOLUTE COUNT 0.32 K/ L 0.04-0.36 (BEAKER) (test code = 416) BASOPHILS ABSOLUTE COUNT (BEAKER) 0.01 K/ L 0.01-0.08 (test code = 417) IMMATURE GRANULOCYTES-RELATIVE 0 % 0-1 PERCENT (BEAKER) (test code = 2801) CBC W/PLT COUNT & AUTO [id number] 13:19:26 Test Item Value Reference Range Interpretation Comments WHITE BLOOD CELL COUNT (BEAKER) 2.9 K/ L 3.5-10.5 L (test code = 775) RED BLOOD CELL COUNT (BEAKER) 3.87 M/ L 3.93-5.22 L (test code = 761) HEMOGLOBIN (BEAKER) (test code = 11.7 GM/DL 11.2-15.7 410) HEMATOCRIT (BEAKER) (test code = 36.0 % 34.1-44.9 411) MEAN CORPUSCULAR VOLUME (BEAKER) 93.0 fL 79.4-94.8 (test code = 753) MEAN CORPUSCULAR HEMOGLOBIN 30.2 pg 25.6-32.2 (BEAKER) (test code = 751) MEAN CORPUSCULAR HEMOGLOBIN CONC 32.5 GM/DL 32.2-35.5 (BEAKER) (test code = 752) RED CELL DISTRIBUTION WIDTH 14.4 % 11.7-14.4 (BEAKER) (test code = 412) PLATELET COUNT (BEAKER) (test code 26 K/CU MM 150-450 L = 756) MEAN PLATELET VOLUME (BEAKER) 12.5 fL 9.4-12.3 H (test code = 754) NUCLEATED RED BLOOD CELLS (BEAKER) 0 /100 WBC 0-0 (test code = 413) NEUTROPHILS RELATIVE PERCENT 60 % (BEAKER) (test code = 429) LYMPHOCYTES RELATIVE PERCENT 19 % (BEAKER) (test code = 430) MONOCYTES RELATIVE PERCENT 16 % (BEAKER) (test code = 431) EOSINOPHILS RELATIVE PERCENT 5 % (BEAKER) (test code = 432) BASOPHILS RELATIVE PERCENT 0 % (BEAKER) (test code = 437) NEUTROPHILS ABSOLUTE COUNT 1.75 K/ L 1.56-6.13 (BEAKER) (test code = 670) LYMPHOCYTES ABSOLUTE COUNT 0.55 K/ L 1.18-3.74 L (BEAKER) (test code = 414) MONOCYTES ABSOLUTE COUNT (BEAKER) 0.47 K/ L 0.24-0.36 H (test code = 415) EOSINOPHILS ABSOLUTE COUNT 0.14 K/ L 0.04-0.36 (BEAKER) (test code = 416) BASOPHILS ABSOLUTE COUNT (BEAKER) 0.00 K/ L 0.01-0.08 L (test code = 417) IMMATURE GRANULOCYTES-RELATIVE 0 % 0-1 PERCENT (BEAKER) (test code = 2801) BASIC METABOLIC [id number] 13:08:56 Test Item Value Reference Range Interpretation Comments SODIUM (BEAKER) 139 meq/L 136-145 (test code = 381) POTASSIUM (BEAKER) 4.2 meq/L 3.5-5.1 (test code = 379) CHLORIDE (BEAKER) 107 meq/L 98-107 (test code = 382) CO2 (BEAKER) (test 24 meq/L 22-29 code = 355) BLOOD UREA NITROGEN 14 mg/dL 7-21 (BEAKER) (test code = 354) CREATININE (BEAKER) 0.93 mg/dL 0.57-1.25 (test code = 358) GLUCOSE RANDOM 112 mg/dL 70-105 H (BEAKER) (test code = 652) CALCIUM (BEAKER) 9.9 mg/dL 8.4-10.2 (test code = 697) EGFR (BEAKER) (test 63 mL/min/1.73 ESTIMA GABY GFR IS code = 1092) sq m NOT ACCURATE CREATININE CLEARANCE IN PREDICTING GLOMERULAR FILTRATION RATE . ESTIMATED GFR I S NOT APPLICABLE FOR DIALYSIS PATIEN TS. Water Pollution Control Inspector ID Joaquin VELAZQUEZ WHEPATIC FUNCTION [id number] 13:08:56 Test Item Value Reference Range Interpretation Comments TOTAL PROTEIN (BEAKER) (test code = 7.4 gm/dL 6.0-8.3 770) ALBUMIN (BEAKER) (test code = 1145) 3.8 g/dL 3.5-5.0 BILIRUBIN TOTAL (BEAKER) (test code 0.9 mg/dL 0.2-1.2 = 377) BILIRUBIN DIRECT (BEAKER) (test 0.4 mg/dL 0.1-0.5 code = 706) ALKALINE PHOSPHATASE (BEAKER) (test 79 U/L 40-150 code = 346) AST (SGOT) (BEAKER) (test code = 38 U/L 5-34 H 353) ALT (SGPT) (BEAKER) (test code = 32 U/L 6-55 347) Water Pollution Control Inspector ID Joaquin VELAZQUEZ WPROTHROMBIN TIME/[id number] 13:08:35 Test Item Value Reference Range Interpretation Comments PROTIME (BEAKER) 14.9 seconds 11.9-14.2 H (test code = 759) INR (BEAKER) (test 1.19 See_Comment [Automat ed message] code = 370) The system [employer] generated this result transmitted ref erence range: <=5.90. The reference range was not used to int erpret this result as normal/abnormal . RECOMMENDED COUMADIN/WARFARIN INR THERAPY RANGESSTANDARD DOSE: 2.0 - 3.0 Includes: PROPHYLAXIS forvenous thrombosis, systemic embolization; TREATMENT for venous thrombosis and/or pulmonary embolus.HIGH RISK: Target INR is 2.5-3.5 for patients with mechanical heart valves.BLOOD GAS, [id number] 11:39:25 Test Item Value Reference Range Interpretation Comments PH ARTERIAL (BEAKER) (test code = 7.41 7.35-7.45 383) PCO2 ARTERIAL (BEAKER) (test code 38 mm Hg 35-45 = 384) PO2 ARTERIAL (BEAKER) (test code 86 mm Hg 80-90 = 385) O2 SATURATION ARTERIAL (BEAKER) 96.7 % 96.0-97.0 (test code = 386) HCO3 ARTERIAL (BEAKER) (test code 24 mmol/L 21-29 = 388) BASE EXCESS ARTERIAL (BEAKER) -0.5 mmol/L -2.0-3.0 (test code = 387) PATIENT TEMPERATURE (BEAKER) 37.0 (test code = 1818) FIO2 (BEAKER) (test code = 1819) 21.0 DRUG SCREEN, URINE, [id number] 09:02:51 Test Item Value Reference Range Interpretation Comments SCAN RESULT (test code = See scanned result [id number]) See scanned resultMR, ABDOMEN, [id number] 14:20:00Unlisted Reason for Exam - Click Yes and Enter Reason Below->YesUnlisted Reason for Exam->cirrhosis [facility] : 1965 Sex: FFINAL [...] further evaluation with ERCP. Signed: Jesus Cormier Verified Date/Time: 04/18/2021 14:20:11 Reading Location: [facility] Diagnostic Imaging Reading Room - [place] [address] ELLANEOUS LAB [id number] 08:34:53 Test Item Value Reference Range Interpretation Comments SCAN RESULT (test code = see scanned result [id number]) see scanned resultPOCT-GLUCOSE [id number] 12:24:48 Test Item Value Reference Range Interpretation Comments POC-GLUCOSE METER 225 mg/dL 70-110 H : TESTED A T [facility] 6720 (BEAKER) (test code = MICHEL Royal [facility], 1538) [address]: Water Pollution Control Inspector/Techni sanjeev ID = [id number] for KASSANDRA REGALADO POCT-GLUCOSE [id number] 07:31:47 Test Item Value Reference Range Interpretation Comments POC-GLUCOSE METER 254 mg/dL 70-110 H : TESTED A T [facility] 6720 (BEAKER) (test code = MICHEL Royal [facility], 1538) [address]: Water Pollution Control Inspector/Techni sanjeev ID = [id number] for KASSANDRA REGALADO [id number] 05:54:17 Test Item Value Reference Range Interpretation Comments MAGNESIUM (BEAKER) (test code = 1.7 mg/dL 1.6-2.6 627) Water Pollution Control Inspector ID - ASTRID [id number] 05:54:17 Test Item Value Reference Range Interpretation Comments PHOSPHORUS (BEAKER) (test code = 3.3 mg/dL 2.3-4.7 604) Water Pollution Control Inspector ID - ASTRID GCOMPREHENSIVE METABOLIC [id number] 05:54:16 Test Item Value Reference Range Interpretation [...] S NOT APPLICABLE FOR DIALYSIS PATIEN TS. Water Pollution Control Inspector ID - ASTRID GPROTHROMBIN TIME/[id number] 05:24:25 Test Item Value Reference Range Interpretation Comments PROTIME (BEAKER) 15.5 seconds 11.9-14.2 H (test code = 759) INR (BEAKER) (test 1.25 See_Comment [Automat ed message] code = 370) The system [employer] generated this result transmitted ref erence range: [...] PERCENT (BEAKER) (test code = 2801) POCT-GLUCOSE [id number] 20:54:45 Test Item Value Reference Range Interpretation Comments POC-GLUCOSE METER 369 mg/dL 70-110 H : TESTED Pedro T [facility] 6720 (BEAKER) (test code = MICHEL [place], 1538) 128[address]: Water Pollution Control Inspector/Techni sanjeev ID = [id number] for [place], Niki POCT-GLUCOSE [id number] 17:44:33 Test Item Value Reference Range Interpretation Comments POC-GLUCOSE METER 73 mg/dL 70-110 : TESTED A T [facility] 6720 (BEAKER) (test code = [facility], 1538) 25368: Water Pollution Control Inspector/Techni sanjeev ID = [id number] for FAQUETA MCKENNA POCT-GLUCOSE [id number] 12:23:38 Test Item Value Reference Range Interpretation Comments POC-GLUCOSE METER 175 mg/dL 70-110 H : TESTED A T [facility] 6720 (BEAKER) (test code = [facility], 1538) 677[address]: Water Pollution Control Inspector/Techni sanjeev ID = [id number] for FA QUETA MCKINNEY POCT-GLUCOSE [id number] 08:14:03 Test Item Value Reference Range Interpretation Comments POC-GLUCOSE METER 173 mg/dL 70-110 H : TESTED A T [facility] 6720 (BEAKER) (test code = [facility], 1538) 99586: Water Pollution Control Inspector/Techni sanjeev ID = [id number] for FA QUETA MCKINNEY COMPREHENSIVE METABOLIC [id number] 04:34:04 Test Item Value Reference Range Interpretation [...] S NOT APPLICABLE FOR DIALYSIS PATIEN TS. Water Pollution Control Inspector ID - ASTRID [id number] 04:34:03 Test Item Value Reference Range Interpretation Comments MAGNESIUM (BEAKER) 1.7 mg/dL 1.6-2.6 Specimen slightly (test code = 627) hemolyzed Water Pollution Control Inspector ID - ASTRID [id number] 04:34:03 Test Item Value Reference Range Interpretation Comments PHOSPHORUS (BEAKER) 4.3 mg/dL 2.3-4.7 Specimen slightly (test code = 604) hemolyzed Water Pollution Control Inspector ID - ASTRID GPROTHROMBIN TIME/[id number] 04:23:20 Test Item Value Reference Range Interpretation Comments PROTIME (BEAKER) 14.9 seconds 11.9-14.2 H (test code = 759) INR (BEAKER) (test 1.18 See_Comment [Automat ed message] code = 370) The system [employer] generated this result transmitted ref erence range: [...] PERCENT (BEAKER) (test code = 2801) POCT-GLUCOSE [id number] 22:28:39 Test Item Value Reference Range Interpretation Comments POC-GLUCOSE METER 133 mg/dL 70-110 H : TESTED Pedro Wade [facility] 6720 (MITA) (test code = MICHEL [place], 1538) [address]: Water Pollution Control Inspector/Techni sanjeev ID = [id number] for ANGELINA ROMERO SARS-COV2/RT-PCR ([facility])2021-04-12 21:36:05 Test Item Value Reference Range Interpretation Comments SARS-COV2/RT-PCR Negative Negative The SARS-Co V-2 target (test code = nucleic acids a re not [id number]) detected in thi s specimen. Negative result [...] revoked sooner. Fact Sheet for Healthcare Providers: https://www.[employer]/Documents/Xpert%20Xpress%20SARS%20CoV-2/Fact%20Sheets/860-0590%20SARS-COV -2%20HEALTHCARE%20PROVIDERS%20FACT%20SHEET.pdf Fact Sheet for Healthcare Patients: https://www.[employer]/Documents/Xpert %20Xpress%20SARS%20CoV-2/Fact%20Sheets/302-3801%38UYMX-ELI-8%20PATIENT%20FACT%20 SHEET.pdfCOMPREHENSIVE METABOLIC [id number] 18:32:37 Test Item Value Reference Range Interpretation [...] S NOT APPLICABLE FOR DIALYSIS PATIEN TS. Water Pollution Control Inspector ID - DBOperator ID - DBHIGH SENSITIVITY TROPONIN [id number] 18:25:54 Test Item Value Reference Range Interpretation Comments HIGH SENSITIVITY < pg/ml See_Comment [Automated message] TROPONIN I (test code = The system which [id number]) generated this result transmitted ref erence range: <=17. Th e reference range was not used to interpr et this result as normal/abnormal . Water Pollution Control Inspector ID - DBThe ACCOUNTING GENERALIST STAT High Sensitivity Troponin-I results should be used in conjunctionwith other diagnostic information such as ECG, clinical observations and information, and patient symptoms to aid in the diagnosis of KS.[id number] 18:21:14 Test Item Value Reference Range Interpretation Comments LIPASE (BEAKER) (test code = 749) 102 U/L 8-78 H Water Pollution Control Inspector ID - DBPROTHROMBIN TIME/[id number] 18:16:11 Test Item Value Reference Range Interpretation [...] code = 2801) MYOCARD IMAGING, MULTI, PHARM, [id number] 16:04:00Unlisted Reason for Exam - Click Yes and Enter Reason Below->YesUnlisted Reason for Exam->Liver [facility] 1965 Sex: FFINAL REPORT PROCEDURE: MYOCARDIAL PERFUSION SPECT IMAGING (Rest/Stres s)CPT CODE: 29923 INDICATION: Cardiac evaluation prior to liver transplant [...] MDReport Verified Date/Time: 04/12/2021 16:04:45 Reading Location: [address] Reading Room [id number] 10:43:26 Test Item Value Reference Range Interpretation Comments T3 TOTAL (MITA) (test code = 0.94 ng/mL 0.60-1.81 656) Water Pollution Control Inspector ID - [id number] 14:22:58 Test Item Value Reference Range Interpretation Comments RPR SCREEN (MITA) (test code = Nonreactive Nonreactive 420) CRYPTOCOCCAL [id number] 14:21:41 Test Item Value Reference Range Interpretation Comments CRYPTOCOCCAL ANTIGEN, SERUM Negative Negative, Interference (MITA) (test code = 1828) RAD, MANDIBLE, MIN 4 [id number] 13:53:00Reason for Exam:->Liver transplant evaluation [facility] : 1965 Sex: FFINAL [...] MDReport Verified Date/Time: 04/11/2021 13:53:12 Reading Location: [facility] Radiology Reading Room RUBELLA ANTIBODY, [id number] 13:46:29 Test Item Value Reference Range Interpretation Comments RUBELLA IGG QUANTITATION (MITA) 53.0 IU/mL <8.0 H (test code = 572) Rubella IgG Result Interpretation: </= 7.0 IU/mL Negative - Presumed non- immune 8.0 - 9.9 IU/mL Equivocal >= 10.0 IU/mL Positive - Presumed immune VARICELLA ZOSTER ANTIBODY, [id number] 13:46:29 Test Item Value Reference Range Interpretation Comments VARICELLA ZOSTER IGG (AL) (BEAKER) 5.6 (test code = 3197) VARICELLA ZOSTER RESULT INTERPRETATIONS: <=0.8 Al Nonreactive: Presumed non-immune to VZV 0.9-1.0 Al Equivocal >=1.1 Al Reactive: Presumed immune to VZVCYTOMEGALOVIRUS ANTIBODY, [id number] 13:46:22 Test Item Value Reference Range Interpretation Comments CYTOMEGALOVIRUS, IGG (BEAKER) Positive Negative, Equivocal A (test code = 3429) CMV IgG Result Interpretation: </= 0.8 Al Negative 0.9-1.0 Al Equivocal >/=1.1 Al PositiveEBV ANTIBODY, [id number] 13:46:22 Test Item Value Reference Range Interpretation [...] 2021-04-11 13:37:00Reason for Exam:->[facility] 1965 Sex: FFINAL [...] MDReport Verified Date/Time: 04/11/2021 13:37:16 Reading Location: [facility] Radiology Reading Room BLOOD GAS, [id number] 11:39:39 Test Item Value Reference Range Interpretation [...] (test code = 1819) 21.0 VITAMIN D, [id number] 10:29:34 Test Item Value Reference Range Interpretation Comments VITAMIN D 25-OH (BEAKER) (test 13.1 ng/mL 6.6-49.9 code = 2764) Effective 03/12/2017: Reference Range ChangeNew: 6.6-49.9 ng/mL Previous: 13.0-47.8 ng/mLRecommended Vitamin D Target Range: 30.0-40.0 ng/mLOperator ID - PIAYA LHEMOGLOBIN [id number] 10:20:10 Test Item Value Reference Range Interpretation Comments HEMOGLOBIN A1C (BEAKER) (test code = 6.7 % 4.3-6.1 H 368) CARCINOEMBRYONIC ANTIGEN (CEA)2021-04-11 10:03:38 Test Item Value Reference Range Interpretation Comments CARCINOEMBRYONIC ANTIGEN (BEAKER) 14.5 ng/mL 0.0-5.0 H (test code = 685) Water Pollution Control Inspector ID - DENA LALPHA FETOPROTEIN (AFP), TUMOR [id number] 10:03:38 Test Item Value Reference Range Interpretation Comments ALPHA-FETOPROTEIN (BEAKER) (test 5.4 ng/mL <10.0 code = 1094) Water Pollution Control Inspector ID - DENA LURINALYSIS W/ [id number] 09:49:36 Test Item Value Reference Range Interpretation [...] = 1521) SOURCE(BEAKER) (test code = 2795) Water Pollution Control Inspector ID - [auto]Water Pollution Control Inspector ID - [id number] 09:08:39 Test Item Value Reference Range Interpretation Comments T4 TOTAL (BEAKER) (test code = 895) 5.9 ug/dL 4.9-11.7 Water Pollution Control Inspector ID Joaquin FERNANDES [id number] 09:08:39 Test Item Value Reference Range Interpretation Comments THYROID STIMULATING HORMONE 2.023 uIU/mL 0.350-4.940 (BEAKER) (test code = 772) Water Pollution Control Inspector ID Joaquin FERNANDES LPREGNANCY SCREEN, [id number] 08:59:02 Test Item Value Reference Range Interpretation Comments TEST URINE (BEAKER) (test Negative code = 583) [id number] 08:53:55 Test Item Value Reference Range Interpretation Comments TRANSFERRIN (BEAKER) (test code = 248 mg/dL 174-382 541) Water Pollution Control Inspector ID Joaquin FERNANDES LBILIRUBIN, [id number] 08:50:00 Test Item Value Reference Range Interpretation Comments BILIRUBIN DIRECT (BEAKER) (test 0.3 mg/dL 0.1-0.5 code = 706) Water Pollution Control Inspector ID - DENA LGAMMA GLUTAMYL TRANSFERASE (GGT)2021-04-11 08:50:00 Test Item Value Reference Range Interpretation Comments GAMMA GLUTAMYL TRANSFERASE (BEAKER) 106 U/L 9-64 H (test code = 364) Water Pollution Control Inspector ID - DENA LURIC [id number] 08:49:55 Test Item Value Reference Range Interpretation Comments URIC ACID (BEAKER) (test code = 3.6 mg/dL 2.6-7.2 773) Water Pollution Control Inspector ID - DENA LLIPID [id number] 08:49:55 Test Item Value Reference Range Interpretation [...] Borderline 130-159 High 160-189 Very High >=190 Water Pollution Control Inspector ID - DENALCOMPREHENSIVE METABOLIC [id number] 08:49:54 Test Item Value Reference Range Interpretation [...] S NOT APPLICABLE FOR DIALYSIS PATIEN TS. Water Pollution Control Inspector ID - DENA [id number] 08:49:54 Test Item Value Reference Range Interpretation Comments MAGNESIUM (BEAKER) (test code = 1.8 mg/dL 1.6-2.6 627) Water Pollution Control Inspector ID - DENA [id number] 08:44:52 Test Item Value Reference Range Interpretation Comments ETHANOL (BEAKER) < mg/dL See_Comment [Automated message] The (test code = 400) system [employer] [facility] generated this result tra nsmitted reference range : <=10. The reference r mago was not used to int erpret this result as normal/abnormal . Water Pollution Control Inspector ID - PIAYA [id number] 08:32:06 Test Item Value Reference Range Interpretation Comments FIBRINOGEN LEVEL (BEAKER) (test 265 mg/dl 225-434 code = 658) [id number] 08:32:06 Test Item Value Reference Range Interpretation Comments PARTIAL THROMBOPLASTIN TIME 29.0 seconds 22.5-36.0 (BEAKER) (test code = 760) PROTHROMBIN [id number] 08:31:30 Test Item Value Reference Range Interpretation Comments PROTIME (BEAKER) 14.1 seconds 11.9-14.2 (test code = 759) INR (BEAKER) (test 1.11 See_Comment [Automat ed message] code = 370) The system [employer] [facility] generated this result transmitted ref erence [...] PERCENT (BEAKER) (test code = 2801) CALCIUM, [id number] 08:17:07 Test Item Value Reference Range Interpretation Comments CALCIUM IONIZED (BEAKER) (test 1.20 mmol/L 1.12-1.27 code = 698) PH, BLOOD (BEAKER) (test code = 7.38 1810) COMPREHENSIVE METABOLIC [id number] 09:52:02 Test Item Value Reference Range Interpretation [...] S NOT APPLICABLE FOR DIALYSIS PATIEN TS. Water Pollution Control Inspector ID - DENA Villedator ID Joaquin FERNANDES LPOCT-GLUCOSE [id number] 08:16:36 Test Item Value Reference Range Interpretation Comments POC-GLUCOSE METER 222 mg/dL 70-110 H : TESTED A T [facility] 6720 (BEAKER) (test code = MICHEL ENGEL [place], 1538) 15339: Water Pollution Control Inspector/Techni sanjeev ID = [id number] for Bess Lares PROTHROMBIN [id number] 07:26:15 Test Item Value Reference Range Interpretation Comments PROTIME (BEAKER) 15.7 seconds 11.9-14.2 H (test code = 759) INR (BEAKER) (test 1.27 See_Comment [Automat ed message] code = 370) The system Yopolis generated this result transmitted ref erence range: [...] PERCENT (BEAKER) (test code = 2801) POCT-GLUCOSE [id number] 23:04:19 Test Item Value Reference Range Interpretation Comments POC-GLUCOSE METER 280 mg/dL 70-110 H : TESTED A T [facility] 6720 (BEAKER) (test code = [facility], 1538) 48251: Water Pollution Control Inspector/Techni sanjeev ID = [id number] for ON UOHA, JAROD POCT-GLUCOSE [id number] 16:00:21 Test Item Value Reference Range Interpretation Comments POC-GLUCOSE METER 166 mg/dL 70-110 H : TESTED A T [facility] 6720 (BEAKER) (test code = [facility], 1538) 28939: Water Pollution Control Inspector/Techni sanjeev ID = [id number] for Bess Lares HEMOGLOBIN AND [id number] 13:22:38 Test Item Value Reference Range Interpretation Comments HEMOGLOBIN (BEAKER) (test code = 10.8 GM/DL 11.2-15.7 L 410) HEMATOCRIT (BEAKER) (test code = 32.9 % 34.1-44.9 L 411) Water Pollution Control Inspector ID - [id number] [id number] 11:43:51 Test Item Value Reference Range Interpretation Comments HEMOGLOBIN A1C (BEAKER) (test code = 6.4 % 4.3-6.1 H 368) POCT-GLUCOSE [id number] 11:23:09 Test Item Value Reference Range Interpretation Comments POC-GLUCOSE METER 181 mg/dL 70-110 H : TESTED A T [facility] 6720 (BEAKER) (test code = [facility], 1538) 40669: Water Pollution Control Inspector/Techni sanjeev ID = [id number] for Bess Lares POCT-GLUCOSE [id number] 07:28:05 Test Item Value Reference Range Interpretation Comments POC-GLUCOSE METER 189 mg/dL 70-110 H : TESTED Pedro T [facility] 6720 (BEAKER) (test code = MICHEL ENGEL [place], 1538) 883[address]: Water Pollution Control Inspector/Techni sanjeev ID = [id number] for Bess Lares HEPATIC FUNCTION [id number] 06:10:18 Test Item Value Reference Range Interpretation [...] (test code = 26 U/L 6-55 347) Water Pollution Control Inspector ID - MAGDIEL [id number] 06:10:17 Test Item Value Reference Range Interpretation Comments MAGNESIUM (BEAKER) (test code = 1.5 mg/dL 1.6-2.6 L 627) Water Pollution Control Inspector ID - MAGDIEL MBASIC METABOLIC [id number] 06:10:16 Test Item Value Reference Range Interpretation [...] S NOT APPLICABLE FOR DIALYSIS PATIEN TS. Water Pollution Control Inspector ID - MAGDIEL MPROTHROMBIN TIME/[id number] 05:40:00 Test Item Value Reference Range Interpretation Comments PROTIME (BEAKER) 15.9 seconds 11.9-14.2 H (test code = 759) INR (BEAKER) (test 1.30 See_Comment [Automat ed message] code = 370) The system Yopolis generated this result transmitted ref erence range: <=5.90. The reference range was not used to int erpret this result as normal/abnormal . RECOMMENDED COUMADIN/WARFARIN INR THERAPY RANGESSTANDARD DOSE: 2.0 - 3.0 Includes: PROPHYLAXIS forvenous thrombosis, systemic embolization; TREATMENT for venous thrombosis and/or pulmonary embolus.HIGH RISK: Target INR is 2.5-3.5 for patients with mechanical heart valves.HEMOGLOBIN AND [id number] 05:35:58 Test Item Value Reference Range Interpretation Comments HEMOGLOBIN (BEAKER) (test code = 10.2 GM/DL 11.2-15.7 L 410) HEMATOCRIT (BEAKER) (test code = 32.0 % 34.1-44.9 L 411) CBC W/PLT COUNT & AUTO [id number] 05:35:56 Test Item Value Reference Range Interpretation [...] PERCENT (BEAKER) (test code = 2801) POCT-GLUCOSE [id number] 23:23:05 Test Item Value Reference Range Interpretation Comments POC-GLUCOSE METER 151 mg/dL 70-110 H : TESTED A T [facility] 6720 (BEAKER) (test code = MICHEL ENGEL [place], 1538) 40122: Water Pollution Control Inspector/Techni sanjeev ID = [id number] for ON UOHA, JAROD HEMOGLOBIN AND [id number] 23:02:32 Test Item Value Reference Range Interpretation Comments HEMOGLOBIN (BEAKER) (test code = 10.9 GM/DL 11.2-15.7 L 410) HEMATOCRIT (BEAKER) (test code = 34.1 % 34.1-44.9 411) Water Pollution Control Inspector ID - [id number]-GLUCOSE [id number] 19:23:43 Test Item Value Reference Range Interpretation Comments POC-GLUCOSE METER 174 mg/dL 70-110 H : TESTED A T [facility] (MITA) (test code = MICHEL ENGEL [place], 1538) 12666: Water Pollution Control Inspector/Techni sanjeev ID = [id number] for Aisha Britt SARS-COV2/RT-PCR ([facility])2021-03-23 14:56:48 Test Item Value Reference Range Interpretation Comments SARS-COV2/RT-PCR Negative Negative The SARS-Co V-2 target (test code = nucleic acids a re not 9781488) detected in thi s specimen. Negative result [...] revoked sooner. Fact Sheet for Healthcare Providers: https://www.Vendavo.[employer]/Documents/Xpert%20Xpress%20SARS%20CoV-2/Fact%20Sheets/302-0888%20SARS-COV -2%20HEALTHCARE%20PROVIDERS%20FACT%20SHEET.pdf Fact Sheet for Healthcare Patients: https://www.[employer]/Documents/Xpert %20Xpress%20SARS%20CoV-2/Fact%20Sheets/302-3801%85DKVB-MCH-3%20PATIENT%20FACT%20 SHEET.[id number] 14:38:02 Test Item Value Reference Range Interpretation Comments LIPASE (BEAKER) (test code = 749) 89 U/L 8-78 H Water Pollution Control Inspector ID - EMERSONBASIC METABOLIC [id number] 14:38:01 Test Item Value Reference Range Interpretation [...] S NOT APPLICABLE FOR DIALYSIS PATIEN TS. Water Pollution Control Inspector ID - EMERSONHEPATIC FUNCTION [id number] 14:38:01 Test Item Value Reference Range Interpretation [...] (test code = 32 U/L 6-55 347) Water Pollution Control Inspector ID - NEDCBC W/PLT COUNT & AUTO [id number] 14:18:03 Test Item Value Reference Range Interpretation [...] GRANULOCYTES-RELATIVE PERCENT (BEAKER) (test code = 2801) [id number] 14:12:16 Test Item Value Reference Range Interpretation [...] 2.5-3.5 for patients with mechanical heart valves.POCT-GLUCOSE [id number] 15:03:21 Test Item Value Reference Range Interpretation Comments POC-GLUCOSE METER 125 mg/dL 70-110 H : TESTED A T [facility] 6720 (BEAKER) (test code = MICHEL Royal [place], 1538) 47774: Water Pollution Control Inspector/Techni sanjeev ID = [id number] for LASHELL SUTTON SHELLEY BASIC METABOLIC [id number] 10:30:15 Test Item Value Reference Range Interpretation [...] S NOT APPLICABLE FOR DIALYSIS PATIEN TS. Water Pollution Control Inspector ID - PIAYA LCBC W/PLT COUNT & AUTO [id number] 10:18:28 Test Item Value Reference Range Interpretation [...] PERCENT (BEAKER) (test code = 2801) CT, [id number] 18:39:00Unlisted Reason for Exam - Click Yes and Enter Reason Below->YesUnlisted Reason for Exam->TIPSplanningWill this procedure require oral contrast?->No [facility] 1965 Sex: FFINAL REPORT ABDOMINAL AND PELVIS CT DATED 03/08/2021 COMPARISON: [facility]2020 CLINICAL INFORMATION: Portal hypertensionTIPS planning TECHNIQUE: Axial [...] in the liver. Spleen is enlarged measuring tnpmvzvghorpq88.5 x 6.6 x 10.17. The splenic, spleen [...] most likely secondary to nondistention. Signed: Steven Murillo Verified Date/Time: 03/08/2021 18:39:08 Reading Location: [place] [id number] Body Reading Room POCT-GLUCOSE [id number] 18:25:50 Test Item Value Reference Range Interpretation Comments POC-GLUCOSE METER 138 mg/dL 70-110 H : TESTED A T [facility] 6720 ([facility]) (test code = [facility], 1538) 74004: Water Pollution Control Inspector/Techni sanjeev ID = [id number] for [place] LLIS, ANAYA POCT-GLUCOSE [id number] 14:11:45 Test Item Value Reference Range Interpretation Comments POC-GLUCOSE METER 207 mg/dL 70-110 H : TESTED A T [facility] 6720 ([employer]) (test code = [facility], 1538) 27519: Water Pollution Control Inspector/Techni sanjeev ID = [id number] for [place] LLIS, ANAYA CBC W/PLT COUNT & AUTO [id number] 05:09:37 Test Item Value Reference Range Interpretation Comments WHITE BLOOD CELL COUNT 2.9 K/ L 3.5-10.5 L ([facility]) (test code = 775) RED BLOOD CELL COUNT 3.67 M/ L 3.93-5.22 L ([facility]) (test code = 761) HEMOGLOBIN ([facility]) 11.0 GM/DL 11.2-15.7 L (test code = [...] (BEAKER) (test code = 2801) HEPATIC FUNCTION [id number] 05:06:54 Test Item Value Reference Range Interpretation [...] Specimen slightly (test code = 347) hemolyzed Water Pollution Control Inspector ID - PIAYA LBASIC METABOLIC [id number] 05:06:53 Test Item Value Reference Range Interpretation [...] S NOT APPLICABLE FOR DIALYSIS PATIEN TS. Water Pollution Control Inspector ID - PIAYA LPROTHROMBIN TIME/[id number] 04:58:22 Test Item Value Reference Range Interpretation [...] patients with mechanical heart valves.HIGH SENSITIVITY TROPONIN [id number] 22:25:04 Test Item Value Reference Range Interpretation Comments HIGH SENSITIVITY < pg/ml See_Comment [Automated message] TROPONIN I (test code = The system which 4291909) generated this result transmitted ref erence range: <=17. Th e reference range was not used to interpr et this result as normal/abnormal . Water Pollution Control Inspector ID - CDPThe ACCOUNTING GENERALIST STAT High Sensitivity Troponin-I results should be used in conjunction with other diagnostic information such as ECG, clinical observations and information, and patient symptoms to aid in the diagnosis of KS.RAD, CHEST, 1 VIEW, NON [id number] 22:13:00Reason for exam:->RECTAL BLEEDINGReason for exam:->HEMATEMESISShould this be performed at the [facility]?->[facility] : 1965 Sex: FFINAL REPORT Chest, 1 view. History: Rectal bleeding and hematemesis. Comparison: None available. Findings: The cardiomediastinal silhouette and pulmonary vasculature are within normal limits for a portable exam. The lungs are clear without evidence of consolidation oreffusion. The soft tissues and osseous structures are intact. IMPRESSION: No acute cardiopulmonaryabnormality. Signed: Violet Cook MDReport Verified Date/Time: 03/07/2021 22:13:00 [id number] 20:49:29 Test Item Value Reference Range Interpretation Comments AMMONIA (BEAKER) (test code = 348) 36 mol/L 18-72 Water Pollution Control Inspector ID - EMERSONSARS-COV2/RT-PCR ([facility])2021-03-07 20:32:21 Test Item Value Reference Range Interpretation Comments SARS-COV2/RT-PCR Negative Negative The SARS-Co V-2 target (test code = nucleic acids a re not 7302209) detected in thi s specimen. Negative result s do not preclude SARS-C oV-2 infection and s hould not be used as the dinroa e basis for patient managem ent decisions. [...] revoked sooner. Fact Sheet for Healthcare Providers: https://www.Vendavo.com/Documents/Xpert%20Xpress%20SARS%20CoV-2/Fact%20Sheets/302-4456%20SARS-COV -2%20HEALTHCARE%20PROVIDERS%20FACT%20SHEET.pdf Fact Sheet for Healthcare Patients: https://www.[employer]/Documents/Xpert %20Xpress%20SARS%20CoV-2/Fact%20Sheets/302-3801%26VHIH-XID-9%20PATIENT%20FACT%20 SHEET.pdfCOMPREHENSIVE METABOLIC [id number] 19:51:17 Test Item Value Reference Range Interpretation Comments TOTAL PROTEIN 7.6 gm/dL 6.0-8.3 Specimen stephon dly (BEAKER) (test code = hemoly zed 770) ALBUMIN (BEAKER) 3.7 g/dL 3.5-5.0 Specimen ma rkedly (test code = 1145) hemolyzed ALKALINE PHOSPHATASE 117 U/L 40-150 (BEAKER) (test code = 346) BILIRUBIN TOTAL 0.5 mg/dL 0.2-1.2 Specimen armen alcantara (BEAKER) (test code = hemoly zed 377) [...] S NOT APPLICABLE FOR DIALYSIS PATIEN TS. Water Pollution Control Inspector ID - [id number] 19:51:17 Test Item Value Reference Range Interpretation Comments LIPASE (BEAKER) (test code = 749) 120 U/L 8-78 H Water Pollution Control Inspector ID - KARINA/WFUJ1619-18-29 19:47:57 Test Item Value Reference Range Interpretation [...] GRANULOCYTES-RELATIVE PERCENT (BEAKER) (test code = 2801) [id number] 13:29:10 Test Item Value Reference Range Interpretation Comments POC-CREATININE 0.9 mg/dL 0.6-1.3 : TESTED AT [facility] (BEAKER) (test [address], code = 1859) [facility] 7703 0: Water Pollution Control Inspector/Techni sanjeev ID = [id number] for Rosanna Edward POC-EGFR (BEAKER) 65 mL/min/1.73M2 (test code = 1860) POCT-GLUCOSE [id number] 12:21:00 Test Item Value Reference Range Interpretation Comments POC-GLUCOSE METER 259 mg/dL 70-110 H : TESTED A T [facility] 6720 (BEAKER) (test code = MICHEL Royal [facility], 1538) 19367: Water Pollution Control Inspector/Techni sanjeev ID = [id number] for CHRISTINA ONELIA CRUZ BASIC METABOLIC [id number] 10:39:00 Test Item Value Reference Range Interpretation [...] S NOT APPLICABLE FOR DIALYSIS PATIEN TS. Water Pollution Control Inspector ID - PIAYA LPOCT-GLUCOSE [id number] 07:22:00 Test Item Value Reference Range Interpretation Comments POC-GLUCOSE METER 208 mg/dL 70-110 H : TESTED A T [facility] (BEAKER) (test code = MICHEL Royal [place], 1538) [address]: Water Pollution Control Inspector/Techni sanjeev ID = [id number] for ONELIA REGALADO PROTHROMBIN TIME/[id number] 06:25:00 Test Item Value Reference Range Interpretation Comments PROTIME (BEAKER) 16.9 seconds 11.9-14.2 H (test code = 759) INR (BEAKER) (test 1.40 See_Comment [Automat ed message] code = 370) The system Yopolis generated this result transmitted ref erence range: [...] PERCENT (BEAKER) (test code = 2801) POCT-GLUCOSE [id number] 21:27:00 Test Item Value Reference Range Interpretation Comments POC-GLUCOSE METER 308 mg/dL 70-110 H : Notified RN/MD: ([facility]) (test code = TESTED AT [place] [address] 1538) [facility], [address]: Water Pollution Control Inspector/Techni sanjeev ID = [id number] for Natasha Lomeli POCT-GLUCOSE [id number] 18:07:00 Test Item Value Reference Range Interpretation Comments POC-GLUCOSE METER 294 mg/dL 70-110 H : TESTED A [facility] 6720 ([facility]) (test code = [facility], 1538) 99878: Water Pollution Control Inspector/Techni sanjeev ID = [id number] for Jessica CABRERA POCT-GLUCOSE [id number] 13:24:00 Test Item Value Reference Range Interpretation Comments POC-GLUCOSE METER 156 mg/dL 70-110 H : TESTED A [place] [address]20 ([facility]) (test code = [facility], 1538) 76940: Water Pollution Control Inspector/Techni sanjeev ID = [id number] for Jessica CABRERA CBC W/PLT COUNT & AUTO [id number] 06:50:00 Test Item Value Reference Range Interpretation Comments WHITE BLOOD CELL COUNT (BEAKER) 4.1 K/ L 3.5-10.5 (test code = 775) RED BLOOD CELL COUNT (AKER) 3.56 M/ L 3.93-5.22 L (test code [...] (BEAKER) (test code = 2801) BASIC METABOLIC [id number] 06:20:00 Test Item Value Reference Range Interpretation [...] S NOT APPLICABLE FOR DIALYSIS PATIEN TS. Water Pollution Control Inspector ID - DBPROTHROMBIN TIME/[id number] 05:46:00 Test Item Value Reference Range Interpretation Comments PROTIME (MITA) 15.9 seconds 11.9-14.2 H (test code = 759) INR (MITA) (test 1.29 See_Comment [Automat ed message] code = 370) The system Yopolis generated this result transmitted ref erence range: <=5.90. The reference range was not used to int erpret this result as normal/abnormal . RECOMMENDED COUMADIN/WARFARIN INR THERAPY RANGESSTANDARD DOSE: 2.0 - 3.0 Includes: PROPHYLAXIS forvenous thrombosis, systemic embolization; TREATMENT for venous thrombosis and/or pulmonary embolus.HIGH RISK: Target INR is 2.5-3.5 for patients with mechanical heart valves.POCT-GLUCOSE [id number] 05:45:00 Test Item Value Reference Range Interpretation Comments POC-GLUCOSE METER 179 mg/dL 70-110 H : TESTED A T [facility] (BEAKER) (test code = MICHEL ENGEL [place], 1538) [address]: Water Pollution Control Inspector/Techni sanjeev ID = [id number] for Brittni Ly CT, [id number] 18:12:00Unlisted Reason for Exam - Click Yes and Enter Reason Below->NoWill this procedure require oral contrast?->No [facility] : 1965 Sex: FFINAL REPORT CT of [...] indeterminate compression deformity of L1. Signed: [facility] Verified Date/Time: 01/14/2021 18:12:20 Reading Location: [facility] B1 [id number] Ortho Consult Reading Room POCT-GLUCOSE [id number] 17:52:00 Test Item Value Reference Range Interpretation Comments POC-GLUCOSE METER 239 mg/dL 70-110 H : TESTED A T [facility] 6720 (BEAKER) (test code = MICHEL ENG[place], 1538) [address]: Water Pollution Control Inspector/Techni sanjeev ID = [id number] for ONELIA REGALADO HEMOGLOBIN AND [id number] 13:32:00 Test Item Value Reference Range Interpretation Comments HEMOGLOBIN ([facility]A) (test code = 7.5 GM/DL 11.2-15.7 L 410) HEMATOCRIT ([facility]) (test code = 24.7 % 34.1-44.9 L 411) Water Pollution Control Inspector ID - [id number] ID - [id number]-GLUCOSE [id number] 12:20:00 Test Item Value Reference Range Interpretation Comments POC-GLUCOSE METER 226 mg/dL 70-110 H : TESTED A T [facility] 6720 (MITA) (test code = EDVINPAUL [place], 1538) 186[address]: Water Pollution Control Inspector/Techni sanjeev ID = [id number] for ONELIA REGALADO SARS-COV2/RT-PCR ([facility])2021-01-14 10:06:00 Test Item Value Reference Range Interpretation Comments SARS-COV2/RT-PCR (test Negative Not Detected, Negative, code = 7821315) See external report for linked test SARS-COV-2 PERFORMING LAB [facility] GIN (test code = 7452346) Negative result for this test determines that [...] 564(g) of the Act.Fact Sheet for Healthcare Providers:https://www.[employer]/sites/default/files/product/documents/Fact_Shee z_CK_Knxdvdxxr_Lpej_XQSJ-ClR-2.pdfFact Sheet for Healthcare Patients:https://www.[employer]/sites/default/files/product/ documents/Ynfx_Wmfqi_Kubsqyba_Aqnq_EUQN-KhN-7.pdfPerforming Laboratory:[address] [address]FMYG-RTKKOXC METER 2021-01-14 06:19:00 Test Item Value Reference Range Interpretation Comments POC-GLUCOSE METER 139 mg/dL 70-110 H : Notified RN/MD: (MITA) (test code = TESTED AT [facility] 6720 1538) [facility], [address]: Water Pollution Control Inspector/Techni sanjeev ID = [id number] for ANSON COSME [id number] 06:10:00 Test Item Value Reference Range Interpretation Comments FERRITIN (BEAKER) (test code = 14.20 ng/mL 5.00-275.00 361) Water Pollution Control Inspector ID - MAGDIEL MBASIC METABOLIC [id number] 05:50:00 Test Item Value Reference Range Interpretation [...] S NOT APPLICABLE FOR DIALYSIS PATIEN TS. Water Pollution Control Inspector ID - MAGDIEL DANTE, TIBC, % SAT. (WITHOUT FERRITIN)2021-01-14 05:49:00 Test Item Value Reference Range Interpretation Comments IRON (BEAKER) (test code = 547) 57.0 ug/dL 40.0-160.0 TOTAL IRON BINDING CAPACITY 351 ug/dL 250-450 (BEAKER) (test code = 769) IRON % SATURATION (2) (BEAKER) 16 % 20-55 L (test code = 2590) Water Pollution Control Inspector ID - MAGDIEL MCBC W/PLT COUNT & AUTO [id number] 05:25:00 Test Item Value Reference Range Interpretation [...] PERCENT (BEAKER) (test code = 2801) POCT-GLUCOSE [id number] 00:46:00 Test Item Value Reference Range Interpretation Comments POC-GLUCOSE METER 197 mg/dL 70-110 H : TESTED A T [facility] 6720 (BEAKER) (test code = [facility], 1538) [address]656: Water Pollution Control Inspector/Techni sanjeev ID = [id number] for ANSON COSME HEMOGLOBIN AND [id number] 20:51:00 Test Item Value Reference Range Interpretation Comments HEMOGLOBIN (BEAKER) (test code = 7.1 GM/DL 11.2-15.7 L 410) HEMATOCRIT (BEAKER) (test code = 23.7 % 34.1-44.9 L 411) Water Pollution Control Inspector ID - [id number] ID - [id number]-GLUCOSE [id number] 17:42:00 Test Item Value Reference Range Interpretation Comments POC-GLUCOSE METER 230 mg/dL 70-110 H : TESTED A T [facility] 6720 (BEAKER) (test code = [facility], 1538) 38[address]: Water Pollution Control Inspector/Techni sanjeev ID = [id number] for ONELIA REGALADO U/S, ABDOMINAL, [id number] 17:38:00Reason for exam:->cirrhosis, evaluate for ascites [facility] : 1965 Sex: FFINAL REPORT TECHNIQUE: Grayscale ultrasound of the four quadrants of the abdomen. INDICATION: cirrhosis, evaluate for ascites. COMPARISON: Ultrasound from 12/09/2020. FINDINGS: No ascites is visualized. Signed: Jesus Cormier Verified Date/Time: 01/13/2021 17:38:54 Reading Location: [address] Body Reading Room HEMOGLOBIN AND [id number] 14:37:00 Test Item Value Reference Range Interpretation Comments HEMOGLOBIN (BEAKER) (test code = 7.9 GM/DL 11.2-15.7 L 410) HEMATOCRIT (BEAKER) (test code = 26.0 % 34.1-44.9 L 411) Water Pollution Control Inspector ID - [id number]-GLUCOSE [id number] 12:56:00 Test Item Value Reference Range Interpretation Comments POC-GLUCOSE METER 175 mg/dL 70-110 H : TESTED A T [facility] 6720 (BEAKER) (test code = MICHEL Royal [facility], 1538) [address]: Water Pollution Control Inspector/Techni sanjeev ID = [id number] for ONELIA REGALADO POCT-GLUCOSE [id number] 11:47:00 Test Item Value Reference Range Interpretation Comments POC-GLUCOSE METER 176 mg/dL 70-110 H : TESTED A T [facility] 6720 (BEAKER) (test code [facility], = 1538) [address]: Water Pollution Control Inspector/Techni sanjeev ID = [id number] for Dianelys xiong (pca2), Arlette [id number] 07:14:00 Test Item Value Reference Range Interpretation Comments LIPASE (BEAKER) (test code = 749) 155 U/L 8-78 H Water Pollution Control Inspector ID - BSBASIC METABOLIC [id number] 06:38:00 Test Item Value Reference Range Interpretation [...] S NOT APPLICABLE FOR DIALYSIS PATIEN TS. Water Pollution Control Inspector ID - MAGDIEL MHEPATIC FUNCTION [id number] 06:15:00 Test Item Value Reference Range Interpretation [...] (test code = 21 U/L 6-55 347) Water Pollution Control Inspector ID - MAGDIEL MPROTHROMBIN TIME/[id number] 05:42:00 Test Item Value Reference Range Interpretation Comments PROTIME (BEAKER) 15.2 seconds 11.9-14.2 H (test code = 759) INR (BEAKER) (test 1.22 See_Comment [Automat ed message] code = 370) The system [employer] generated this result transmitted ref erence range: [...] = No growth in 5 days 6463-4) [facility] [id number] 20:01:00 Test Item Value Reference Range Interpretation Comments CULTURE (BEAKER) (test No growth in 5 days code = 1095) BLOOD [id number] 20:01:00 Test Item Value Reference Range Interpretation Comments CULTURE (BEAKER) (test No growth in 5 days code = 1095) Drug screen, urine, [id number] 14:34:00See scanned reportKaiser Permanente San Francisco Medical CenterPrepare Leuko-Red [id number] 23:54:00 Test Item Value Reference Range Interpretation Comments Unit ABO (test code = 4985555) A Pos UNIT NUMBER (test code = [id number] 934-0) Status (test code = 4535754) TX_TIMEINCHART Blood Bank Product (test code PLATELETS = 2263) PRODUCT CODE (test code = M8475J35 933-2) [facility] CenterPrep[facility] Leuko-Red [id number] 14:17:00 Test Item Value Reference Range Interpretation Comments CROSSMATCH (test code = COMPATIBLE 2264) Unit ABO (test code = A Pos 4254095) UNIT NUMBER (test code = [id number] 934-0) Status (test code = 2099037) WORK IN PROGRESS Blood Bank Product (test RED BLOOD CELLS code = 2263) PRODUCT CODE (test code = T7934X70 933-2) [facility] CenterComprehensive metabolic [id number] 06:58:00 Test Item Value Reference Range Interpretation Comments Protein, Total (test 6.1 See_Comment [Autom ated code = 2885-2) message] The system which generated this result transmit gaby reference range : 6.0 - 8.3 gm/dL . The reference range was not u sed to interpret th is result as normal/abnormal . Albumin (test code = 3.0 g/dL 3.5-5 L 53001-6) Alkaline Phosphatase 94 U/L 40-150 (test code = 6768-6) Total Bilirubin (test 0.5 mg/dL 0.2-1.2 code = 1975-2) Sodium (test code = 140 meq/L 242-048 1049-2) Potassium (test code 4.2 meq/L 3.5-5.1 = 2823-3) Chloride (test code = 107 meq/L 98-107 2075-0) CO2 (test code = 24 meq/L 22-29 2028-9) BUN (test code = 4 mg/dL 7-21 L 3094-0) Creatinine (test code 0.97 mg/dL 0.57-1.25 = 2160-0) Glucose (test code = 175 mg/dL 70-105 H 2345-7) Calcium (test code = 8.0 mg/dL 8.4-10.2 L 13721-4) AST (test code = 19 U/L 5-34 1920-8) ALT (test code = 16 U/L 6-55 1742-6) EGFR (test code = 60 mL/min/1.73 [place] [address]-3) NOT ACCURATE CREATININE CLEARANCE IN PREDICTING GLOMERULAR FILTRATION RATE . ESTIMATED GFR I S NOT APPLICABLE FOR DIALYSIS PATIEN JULIAN (test code = JULIAN) Water Pollution Control Inspector ID - MARCUS Niño Lab Interpretation Abnormal (test code = 22899-4) [facility] CenterCOMPREHENSIVE METABOLIC [id number] 06:58:00 Test Item Value Reference Range Interpretation [...] S NOT APPLICABLE FOR DIALYSIS PATIEN TS. Water Pollution Control Inspector ID - MARCUS WProthrombin time/[id number] 06:30:00 Test Item Value Reference Interpretation Comments Range Protime (test code = 16.1 See_Comment H [Autom ated 7352-2) message] The system which generated this result transmitted reference range : 11.9 - 14.2 seconds. The reference range was not used to interpret this result as normal/abnormal . INR (test code = 1.31 See_Comment [Automated 4521-6) message] The system which generated this result [...] valves. Lab Interpretation Abnormal (test code = 95388-4) [facility] CenterPROTHROMBIN TIME/[id number] 06:30:00 Test Item Value Reference Range Interpretation Comments PROTIME (BEAKER) 16.1 seconds 11.9-14.2 H (test code = 759) INR (BEAKER) (test 1.31 See_Comment [Automat ed message] code = 370) The system [employer] generated this result transmitted ref erence range: [...] See_Comment L [A utomated message] The system [employer] generated this result transmitted ref erence range: 3.5 - 10 .5 K/L. The refe rence range was not u sed to interpret this result as normal/abnor mal. RBC (test code = 789-8) 2.52 See_Comment L [Au tomated message] The system [employer] generated this result transmitted ref erence range: 3.93 - 5 .22 M/L. The refe rence range was not u sed to interpret this result as normal/abnor mal. MCHC (test code = 786-4) 31.0 See_Comment L [A utomated message] The system [employer] generated this result transmitted ref erence range: [...] L [Aut omated message] 777-3) The system [employer] generated this result transmitted ref erence range: 150 - 45 0 K/CU MM. The referen ce range was not u sed to interpret this result as normal/abnor mal. MPV (test code = 11.3 fL 9.4-12.3 37352-9) nRBC (test code = 413) 0 See_Comment [Aut omated message] The system [employer] generated this result transmitted ref erence range: [...] See_Comment [Aut omated message] 670) The system [employer] generated this result transmitted ref erence range: 1.56 - 6 .13 K/L. The refe rence range was not u sed to interpret this result as normal/abnor mal. # Lymphs (test code = 0.62 See_Comment L [Auto mated message] 414) The system [employer] generated this result transmitted ref erence range: 1.18 - 3 .74 K/L. The refe rence range was not u sed to interpret this result as normal/abnor mal. # Monos (test code = 0.35 See_Comment [Autom ated message] 415) The system [employer] generated this result transmitted ref erence range: 0.24 - 0 .36 K/L. The refe rence range was not u sed to interpret this result as normal/abnor mal. # Eos (test code = 416) 0.11 See_Comment [Au tomated message] The system [employer] generated this result transmitted ref erence range: 0.04 - 0 .36 K/L. The refe rence range was not u sed to interpret this result as normal/abnor mal. # Baso (test code = 417) 0.01 See_Comment [A utomated message] The system [employer] generated this result transmitted ref erence range: 0.01 - 0 .08 K/L. The refe rence range was not u sed to interpret this result as normal/abnor mal. Immature 0 % 0-1 Granulocytes-Relative (test code = 2801) Lab Interpretation (test Abnormal code = 35901-8) [facility] W/PLT COUNT & AUTO [id number] 06:19:00 Test Item Value Reference Range Interpretation [...] PERCENT (BEAKER) (test code = 2801) POC-Glucose [id number] 21:39:00 Test Item Value Reference Range Interpretation Comments POC-Glucose Meter (test 319 mg/dL 70-110 H : TE STED AT [facility] code = 1538) [address] [facility], 770 30: Water Pollution Control Inspector/Techni sanjeev ID = [id number] for OCTAVIA MAGAÑA Lab Interpretation (test Abnormal code = 15962-2) [facility] CenterPOCT-GLUCOSE [id number] 21:39:00 Test Item Value Reference Range Interpretation Comments POC-GLUCOSE METER 319 mg/dL 70-110 H : [facility] ([facility]) (test code = [facility], 153) [address]: Water Pollution Control Inspector/Techni sanjeev ID = [id number] for OCTAVIA HOPKINS RA POCT-GLUCOSE [id number] 16:32:00 Test Item Value Reference Range Interpretation Comments POC-GLUCOSE METER 145 mg/dL 70-110 H : [facility] ([facility]) (test code = [facility], 153) [address]: Water Pollution Control Inspector/Techni sanjeev ID = [id number] for KE ITH (V), NATASHA Type and screen, [id number] 08:50:00 Test Item Value Reference Range Interpretation Comments ABO/RH AUTOMATED (BEAKER) (test A POSITIVE code = 2260) Ab Scrn (test code = 890-4) NEGATIVE [facility] CenterCOMPREHENSIVE METABOLIC [id number] 06:07:00 Test Item Value Reference Range Interpretation [...] S NOT APPLICABLE FOR DIALYSIS PATIEN TS. Water Pollution Control Inspector ID - MAGDIEL IKdesdhrhz2538-22-65 05:52:00 Test Item Value Reference Range Interpretation Comments Magnesium (test code = 1.4 mg/dL 1.6-2.6 L 80016-5) JULIAN (test code = JULIAN) Water Pollution Control Inspector ID - MAGDIEL M Lab Interpretation (test Abnormal code = 29368-6) [facility] CenterMAGNESIUM2021-07-24 05:52:00 Test Item Value Reference Range Interpretation Comments MAGNESIUM (BEAKER) (test code = 1.4 mg/dL 1.6-2.6 L 627) Water Pollution Control Inspector ID Joaquin VELOZ MPROTHROMBIN TIME/[id number] 05:27:00 Test Item Value Reference Range Interpretation Comments PROTIME (BEAKER) 16.8 seconds 11.9-14.2 H (test code = 759) INR (BEAKER) (test 1.38 See_Comment [Automat ed message] code = 370) The system [employer] generated this result transmitted ref erence range: <=5.90. The reference range was not used to int erpret this result as normal/abnormal . RECOMMENDED COUMADIN/WARFARIN INR THERAPY RANGESSTANDARD DOSE: 2.0 - 3.0 Includes: PROPHYLAXIS forvenous thrombosis, systemic embolization; TREATMENT for venous thrombosis and/or pulmonary embolus.HIGH RISK: Target INR is 2.5-3.5 for patients with mechanical heart valves.Hemoglobin and [id number] 05:23:00 Test Item Value Reference Range Interpretation Comments Hemoglobin (test code = 7.0 See_Comment L [Au tomated message] 786-4) The system [employer] generated this result transmitted ref erence range: 11.2 - 1 5.7 GM/DL. The refe rence range was not u sed to interpret this result as normal/abnor mal. Hematocrit (test code = 23.8 % 34.1-44.9 L 4544-3) Lab Interpretation (test Abnormal code = 89339-3) [facility] W/PLT COUNT & AUTO [id number] 05:23:00 Test Item Value Reference Range Interpretation [...] (BEAKER) (test code = 2801) HEMOGLOBIN AND [id number] 05:23:00 Test Item Value Reference Range Interpretation Comments HEMOGLOBIN (BEAKER) (test code = 7.0 GM/DL 11.2-15.7 L 410) HEMATOCRIT (BEAKER) (test code = 23.8 % 34.1-44.9 L 411) HEMOGLOBIN AND [id number] 18:32:00 Test Item Value Reference Range Interpretation Comments HEMOGLOBIN (BEAKER) (test code = 8.5 GM/DL 11.2-15.7 L 410) HEMATOCRIT (BEAKER) (test code = 28.2 % 34.1-44.9 L 411) Water Pollution Control Inspector ID - [id number]-CoV2/RT-PCR (Asymptomatic ONLY)2020-12-22 11:29:00 Test Item Value Reference Range Interpretation Comments SARS-COV2/RT-PCR Negative Not Detected, (test code = Negative, See 79997-3) external report for linked test SARS-COV-2 [facility] PERFORMING LAB (test code = 12814-8) JULIAN (test code = Negative result for [...] of the Act. Fact Sheet for Healthcare Providers:https://www.[employer]/sites/default/f raeann/product/documents/F act_Sheet_HC_Providers_L lzu_IYMX-LfL-0.pdf Fact Sheet for Healthcare Patients:https://www.ezNetPay.com/sites/default/fi les/product/documents/Fa ct_Sheet_Patients_Lyra_S ARS-CoV-2.pdf Performing Laboratory:[facility] [place] [address] [facility] ([facility])2020-12-22 11:29:00 Test Item Value Reference Range Interpretation Comments SARS-COV2/RT-PCR (test Negative Not Detected, Negative, code = 4233691) See external report for linked test SARS-COV-2 PERFORMING LAB [facility] GIN (test code = 4899256) Negative result for this test determines that [...] 564(g) of the Act.Fact Sheet for Healthcare Providers:https://www.[employer]/sites/default/files/product/documents/Fact_Shee v_RS_Nddpejgzh_Rcim_MSHH-ZrO-0.pdfFact Sheet for Healthcare Patients:https://www.[employer]/sites/default/files/product/ documents/Fhcx_Ohapm_Hcndrjhc_Uxsa_IIPC-LlM-4.pdfPerforming Laboratory:[facility], [place] [address]KFCD-MKNPCPT METER 2020-12-22 05:38:00 Test Item Value Reference Range Interpretation Comments POC-GLUCOSE METER 142 mg/dL 70-110 H : TESTED A T [facility] 67[address] (BEAKER) (test code = [facility], 1538) [address]: Water Pollution Control Inspector/Techni sanjeev ID = [id number] for Kaylynn Dill Basic metabolic [id number] 04:34:00 Test Item Value Reference Range Interpretation Comments Sodium (test code = 137 meq/L 115-090 7186-2) Potassium (test code = 5.1 meq/L 3.5-5.1 2823-3) Chloride (test code = 111 meq/L 98-107 H 2075-0) CO2 (test code = 19 meq/L 22-29 L 2028-9) BUN (test code = 6 mg/dL 7-21 L 3094-0) Creatinine (test code 1.06 mg/dL 0.57-1.25 = 2160-0) Glucose (test code = 138 mg/dL 70-105 H 2345-7) Calcium (test code = 8.3 mg/dL 8.4-10.2 L 29536-4) EGFR (test code = 54 mL/min/1.[place] [address]-7) NOT ACCURATE CREATININE CLEARANCE IN PREDICTING GLOMERULAR FILTRATION RATE . ESTIMATED GFR I S NOT APPLICABLE FOR DIALYSIS PATIENTS. JULIAN (test code = JULIAN) Water Pollution Control Inspector ID - MARCUS Niño Lab Interpretation Abnormal (test code = 82755-7) [facility] CenterHepatic function [id number] 04:34:00 Test Item Value Reference Range Interpretation Comments Protein, Total (test 6.2 See_Comment [Autom ated code = 2885-2) message] The system which generated this result transmit gaby reference range : 6.0 - 8.3 gm/dL . The reference range was not u sed to interpret th is result as normal/abnormal . Albumin (test code = 3.0 g/dL 3.5-5 L 14046-6) Total Bilirubin (test 0.7 mg/dL 0.2-1.2 code = 1974-2) Bilirubin, Direct 0.4 mg/dL 0.1-0.5 (test code = 1967-7) Alkaline Phosphatase 105 U/L 40-150 (test code = 6768-6) AST (test code = 34 U/L 5-34 1920-8) ALT (test code = 26 U/L 6-55 1742-6) JULIAN (test code = JULIAN) Water Pollution Control Inspector ID - MARCUS W Lab Interpretation Abnormal (test code = 59812-9) [facility] CenterPhosphorus2021-07-23 04:34:00 Test Item Value Reference Range Interpretation Comments Phosphorus (test code = 3.3 mg/dL 2.3-4.7 2777-1) JULIAN (test code = JULIAN) Water Pollution Control Inspector ID - MARCUS W Lab Interpretation (test Normal code = 57433-1) [facility] CenterBASIC METABOLIC [id number] 04:34:00 Test Item Value Reference Range Interpretation [...] S NOT APPLICABLE FOR DIALYSIS PATIEN TS. Water Pollution Control Inspector ID - MARCUS SEERKHEYTD2509-36-72 04:34:00 Test Item Value Reference Range Interpretation Comments MAGNESIUM (BEAKER) (test code = 1.3 mg/dL 1.6-2.6 L 627) Water Pollution Control Inspector ID - MARCUS [id number] 04:34:00 Test Item Value Reference Range Interpretation Comments PHOSPHORUS (BEAKER) (test code = 3.3 mg/dL 2.3-4.7 604) Water Pollution Control Inspector ID - MARCUS WHEPATIC FUNCTION [id number] 04:34:00 Test Item Value Reference Range Interpretation [...] (test code = 26 U/L 6-55 347) Water Pollution Control Inspector ID Joaquin VELAZQUEZ WCBC W/PLT COUNT & AUTO [id number] 04:18:00 Test Item Value Reference Range Interpretation [...] PERCENT (BEAKER) (test code = 2801) POCT-GLUCOSE [id number] 01:24:00 Test Item Value Reference Range Interpretation Comments POC-GLUCOSE METER 121 mg/dL 70-110 H : TESTED A T [facility] 6720 (BEAKER) (test code = [facility] [place], 1538) [address]: Water Pollution Control Inspector/Techni sanjeev ID = [id number] for Kaylynn Dill [id number] 19:21:00 Test Item Value Reference Range Interpretation Comments PTT (test code = 81684-8) 29.1 See_Comment [ Automated message] The system [employer] generated this result transmitted ref erence range: 22.5 - 3 6.0 seconds. The re ference range was not u sed to interpret this result as normal/abnor mal. Lab Interpretation (test Normal code = 06577-3) [facility] CenterAPTT2021-07-22 19:21:00 Test Item Value Reference Range Interpretation Comments PARTIAL THROMBOPLASTIN TIME 29.1 seconds 22.5-36.0 (BEAKER) (test code = 760) Lactic acid, venous [id number] 19:20:00 Test Item Value Reference Range Interpretation Comments Lactate, Venous (test 1.18 mmol/L 0.5-2.2 Specim en code = 2872) markedly hemolyzed JULIAN (test code = JULIAN) Water Pollution Control Inspector ID - DB Lab Interpretation Normal (test code = 70316-0) [facility] CenterLACTIC ACID, [id number] 19:20:00 Test Item Value Reference Range Interpretation Comments LACTATE BLOOD VENOUS 1.18 mmol/L 0.50-2.20 Specime n markedly (2) (BEAKER) (test hemolyzed code = 2872) Water Pollution Control Inspector ID - DBPROTHROMBIN TIME/[id number] 19:19:00 Test Item Value Reference Range Interpretation Comments PROTIME (BEAKER) 15.4 seconds 11.9-14.2 H (test code = 759) INR (BEAKER) (test 1.24 See_Comment [Automat ed message] code = 370) The system [employer] generated this result transmitted ref erence range: <=5.90. The reference range was not used to int erpret this result as normal/abnormal . RECOMMENDED COUMADIN/WARFARIN INR THERAPY RANGESSTANDARD DOSE: 2.0 - 3.0 Includes: PROPHYLAXIS forvenous thrombosis, systemic embolization; TREATMENT for venous thrombosis and/or pulmonary embolus.HIGH RISK: Target INR is 2.5-3.5 for patients with mechanical heart valves.[id number] 19:16:00 Test Item Value Reference Range Interpretation Comments Ammonia (test code = 21 See_Comment [place] n 74[address]-1) moderately hemolyzed [Automated message] The system which generated this result transmit gaby reference range : 18 - 72 mol/L . The reference range was not u sed to interpret th is result as normal/abnormal . JULIAN (test code = JULIAN) Water Pollution Control Inspector ID - DB Lab Interpretation Normal (test code = 24413-8) [facility] CenterAMMONIA2021-07-22 19:16:00 Test Item Value Reference Range Interpretation Comments AMMONIA (BEAKER) 21 mol/L 18-72 Specimen mo derately (test code = 348) hemolyzed Water Pollution Control Inspector ID - DBBASIC METABOLIC [id number] 16:19:00 Test Item Value Reference Range Interpretation [...] S NOT APPLICABLE FOR DIALYSIS PATIEN TS. Water Pollution Control Inspector ID - DBHEPATIC FUNCTION [id number] 16:19:00 Test Item Value Reference Range Interpretation [...] (test code = 36 U/L 6-55 347) Water Pollution Control Inspector ID - DBCBC W/PLT COUNT & AUTO [id number] 16:00:00 Test Item Value Reference Range Interpretation [...] (BEAKER) (test code = 2801) BASIC METABOLIC [id number] 14:31:00 Test Item Value Reference Range Interpretation [...] S NOT APPLICABLE FOR DIALYSIS PATIEN TS. Water Pollution Control Inspector ID - DENA LHEPATIC FUNCTION [id number] 14:31:00 Test Item Value Reference Range Interpretation [...] (test code = 31 U/L 6-55 347) Water Pollution Control Inspector ID - DENA LPROTHROMBIN TIME/[id number] 14:12:00 Test Item Value Reference Range Interpretation Comments PROTIME (BEAKER) 15.2 seconds 11.9-14.2 H (test code = 759) INR (BEAKER) (test 1.22 See_Comment [Automat ed message] code = 370) The system [employer] generated this result transmitted ref erence range: [...] (BEAKER) (test code = 2801) please check [id number] 12:14:00Scan ResultQUEST NON- INTERFACED LABCHI [facility] CenterZinc2021-07-17 19:10:00 Test Item Value Reference Interpretation Comments Range Zinc (test code = 47 See_Comment L This test was 1584650) developed and i ts analytical performance characteristics have been determined by [employer]. It has not been cleared or appr [...] (test code = Performing Lab JULIAN) *MIKE [employer] [facility], [address] [place] [phone] Sheri Mccall MD Lab Interpretation Abnormal (test code = 47051-4) [facility] CenterCopper2021-07-17 11:43:00 Test Item Value Reference Range Interpretation Comments Copper (test 118 See_Comment This test was code = developed and i ts 1928059) analytical perf ormance characteristics have been determined by [employer]. It has not been cl eared or approved by theFDA. This assay has been validated pursu ant to the CLIA regula tions and is used for clinical purpos es. [Automated mess age] The system [employer] generated this result transmitted ref erence range: 70 - 175 mcg/dL. The ref erence range was not u sed to interpret this result as normal/abnor mal. JULIAN (test code Performing Lab = JULIAN) *MIKE [employer] [facility], [address] [place] [phone] Sheri Mccall MD [facility] CenterANTI-MITOCHONDRIAL AB, REFLEX TO [id number] 07:43:00 Test Item Value Reference Range Interpretation Comments SCAN RESULT (test code = 2826734) Anti-Mitochondrial Ab, reflex to [id number] 07:43:00Scan ResultQUEST DIAGNOSTIC INCORPORATEDK[facility] CenterHepatitis B e antibody 2020-12-14 20:25:00 Test Item Value Reference Range Interpretation Comments Hep Be NONREACTIVE REFERENCE RANG E: Ab(Anti-Hbe) NONREACTIVE For (test code = additional 2729493) information, pl ease refer tohttp://educat ion.[employer] .[employer]/ faq/FXZ041(This link is being provid ed for informational/e ducat ional purposes only.) JULIAN (test code Performing Lab = JULIAN) *QDID [employer] [facility] [address] [place] [phone] Chalo Burnham MD [facility] CenterBLOOD [id number] 20:01:00 Test Item Value Reference Range Interpretation Comments CULTURE (BEAKER) (test No growth in 5 days code = 1095) BLOOD [id number] 20:01:00 Test Item Value Reference Range Interpretation Comments CULTURE (BEAKER) (test No growth in 5 days code = 1095) Mitochondrial Ab [id number] 12:49:00 Test Item Value Reference Range Interpretation Comments Anti-Mitocho NEGATIVE NEGATIVE This test was developed nd Abs (test and its analyti iglesia code = performance 9069895) characteristics havebeen determined by [facility].It h as not been cleared or approved by FDA. This as say has been validatedp ursuant to the CLIA reg ulations and is used for clinical purposes. JULIAN (test Performing Lab code = JULIAN) [employer] [place] [address] [place] [address] Gab Mckeon MD, PhD, [facility] HospitalMitochondrial Ab [id number] 12:49:00 Test Item Value Reference Range Interpretation Comments Mitochondrial Ab TNP See_Comment Test Not Titer (test code = Performed . 7423378) Screening test Negative or Not Detected. Titer notperformed. [Automated message] The system which generated this result transmitted reference range : <1:20. The reference range was not used to interpret this result as normal/abnormal . JULIAN (test code = Performing Lab JULIAN) [facility] [facility] [address] [place] [address] Gab Mckeon MD, PhD, [facility] HospitalActin (Smooth Muscle) Antibody, [id number] 22:22:00 Test Item Value Reference Range Interpretation [...] JULIAN (test code Performing Lab = JULIAN) [employer] [place] [address] [place] [address] Gab Mckeon MD, PhD, [facility] HospitalPOCT-GLUCOSE [id number] 16:42:00 Test Item Value Reference Range Interpretation Comments POC-GLUCOSE METER 195 mg/dL 70-110 H : TESTED A T [facility] 67[address] (BEAKER) (test code [facility], = 1538) [address]: Water Pollution Control Inspector/Techni sanjeev ID = [id number] for JOHNI S LATMARCELARIA Hepatitis B e [id number] 16:32:00 Test Item Value Reference Range Interpretation Comments Hep Be Ag NONREACTIVE REFERENCE RANG ES: (Antigen) NONREACTIVE For (test code = additional 3501971) information, pl ease refer tohttp://educat ion.TheReadingRoom/ faq/IXX214(This link is being provid ed for informational/e ducat ional purposes only.) JULIAN (test code Performing Lab = JULIAN) *QDID [employer] [facility] [address] [place] [address] H Dinesh Burnham MD [facility] CenterCarbohydrate antigen 19-9 (CA 19-9)2020-12-13 14:29:00 Test Item Value Reference Range Interpretation Comments CA 19-9 26 U/mL <34 This test was (test code = performed using the 31247-2) Siemens Chemiluminescen t method.Values o btained from different assay methods cannot be used interchangeably .CA19-9 levels, regardl ess of value, should n ot be interpreted as absoluteevidenc e of the presence or abs ence of disease. JULIAN (test Performing Lab code = JULIAN) [facility] [address] [place] [address] Gab Mckeon MD, PhD, DEBI [facility] CenterCeruloplasmin2021-07-14 14:13:00 Test Item Value Reference Range Interpretation Comments Ceruloplasmin (test code 28 mg/dL 18-53 = 4042847) JULIAN (test code = JULIAN) Performing Lab *MIKE [facility], [address] [place] [phone] Sheri Mccall MD [facility] CenterPOCT-GLUCOSE [id number] 11:53:00 Test Item Value Reference Range Interpretation Comments POC-GLUCOSE METER 308 mg/dL 70-110 H : TESTED A T [facility] 6720 (BEAKER) (test code [facility], = 1538) [address]: Water Pollution Control Inspector/Techni sanjeev ID = [id number] for HEATHER DUNLAP POCT-GLUCOSE [id number] 07:27:00 Test Item Value Reference Range Interpretation Comments POC-GLUCOSE METER 271 mg/dL 70-110 H : TESTED A T [facility] 6720 (BEAKER) (test code [facility], = 1538) [address]: Water Pollution Control Inspector/Techni sanjeev ID = [id number] for HEATHER DUNLAP Calcium, [id number] 05:41:00 Test Item Value Reference Range Interpretation Comments Calcium, Ion (test code = 1993-) 1.09 mmol/L 1.12-1.27 L pH, Blood (test code = 74110-6) 7.40 Lab Interpretation (test code = Abnormal 89717-5) [facility] CenterCALCIUM, [id number] 05:41:00 Test Item Value Reference Range Interpretation Comments CALCIUM IONIZED (BEAKER) (test 1.09 mmol/L 1.12-1.27 L code = 698) PH, BLOOD (BEAKER) (test code = 7.40 1810) COMPREHENSIVE METABOLIC [id number] 04:31:00 Test Item Value Reference Range Interpretation [...] S NOT APPLICABLE FOR DIALYSIS PATIEN TS. Water Pollution Control Inspector ID - MAGDIEL [id number] 04:25:00 Test Item Value Reference Range Interpretation Comments MAGNESIUM (BEAKER) (test code = 1.5 mg/dL 1.6-2.6 L 627) Water Pollution Control Inspector ID - MAGDIEL [id number] 04:25:00 Test Item Value Reference Range Interpretation Comments PHOSPHORUS (BEAKER) (test code = 2.4 mg/dL 2.3-4.7 604) Water Pollution Control Inspector ID - MAGDIEL MCBC W/PLT COUNT & AUTO [id number] 03:59:00 Test Item Value Reference Range Interpretation [...] PERCENT (BEAKER) (test code = 2801) POCT-GLUCOSE [id number] 22:27:00 Test Item Value Reference Range Interpretation Comments POC-GLUCOSE METER 329 mg/dL 70-110 H : TESTED A T [facility] ([facility]) (test code = [facility], 153) [address]: Water Pollution Control Inspector/Techni sanjeev ID = [id number] for JAMILA YOUNGER POCT-GLUCOSE [id number] 17:02:00 Test Item Value Reference Range Interpretation Comments POC-GLUCOSE METER 295 mg/dL 70-110 H : Notified RN/MD: ([facility]) (test code = TESTED AT [place] [address] 1538) [facility], [address]: Water Pollution Control Inspector/Techni sanjeev ID = [id number] for Ricco BUNDY EUGENIOJANE HEMOGLOBIN AND [id number] 16:35:00 Test Item Value Reference Range Interpretation Comments HEMOGLOBIN (BEAKER) (test code = 7.9 GM/DL 11.2-15.7 L 410) HEMATOCRIT (BEAKER) (test code = 25.0 % 34.1-44.9 L 411) Water Pollution Control Inspector ID - 6000POCT-GLUCOSE [id number] 11:51:00 Test Item Value Reference Range Interpretation Comments POC-GLUCOSE METER 300 mg/dL 70-110 H : TESTED A T [facility] 6720 (BEAKER) (test code [facility], = 1538) [address]: Water Pollution Control Inspector/Techni sanjeev ID = [id number] for HEATHER DUNLAP POCT-GLUCOSE [id number] 08:17:00 Test Item Value Reference Range Interpretation Comments POC-GLUCOSE METER 229 mg/dL 70-110 H : TESTED A T [facility] 6720 (BEAKER) (test code [facility], = 1538) [address]: Water Pollution Control Inspector/Techni sanjeev ID = [id number] for HEATHER DUNLAP [id number] 06:36:00 Test Item Value Reference Range Interpretation Comments PHOSPHORUS (BEAKER) (test code = 1.5 mg/dL 2.3-4.7 LL 604) Water Pollution Control Inspector ID - MAGDIEL MOperator ID - DENA LCOMPREHENSIVE METABOLIC [id number] 04:26:00 Test Item Value Reference Range Interpretation [...] S NOT APPLICABLE FOR DIALYSIS PATIEN TS. Water Pollution Control Inspector ID - MAGDIEL [id number] 04:26:00 Test Item Value Reference Range Interpretation Comments MAGNESIUM (BEAKER) (test code = 1.7 mg/dL 1.6-2.6 627) Water Pollution Control Inspector ID - MAGDIEL MCALCIUM, [id number] 04:18:00 Test Item Value Reference Range Interpretation Comments CALCIUM IONIZED (BEAKER) (test 1.10 mmol/L 1.12-1.27 L code = 698) PH, BLOOD (BEAKER) (test code = 7.41 1810) CBC W/PLT COUNT & AUTO [id number] 03:57:00 Test Item Value Reference Range Interpretation [...] PERCENT (BEAKER) (test code = 2801) POCT-GLUCOSE [id number] 21:58:00 Test Item Value Reference Range Interpretation Comments POC-GLUCOSE METER 139 mg/dL 70-110 H : TESTED A T [facility] (BEAKER) (test code = [facility], 1538) [address]: Water Pollution Control Inspector/Techni sanjeev ID = [id number] for ERIC FREGOSO Hepatitis B surface [id number] 18:57:00 Test Item Value Reference Range Interpretation Comments Hep B S Ab (test code <8.0 See_Comment [Auto mated = 04853-1) message] The system which generated this result transmit gaby reference range : <8.0 mIU/mL. e reference range was not used to interpret this result as normal/abnormal . JULIAN (test code = JULIAN) Water Pollution Control Inspector ID - DB Lab Interpretation Normal (test code = 17165-3) [facility] SURFACE [id number] 18:57:00 Test Item Value Reference Range Interpretation Comments HEPATITIS B SURFACE ANTIBODY < mIU/mL <8.0 (BEAKER) (test code = 647) Water Pollution Control Inspector ID - DBHEMOGLOBIN AND [id number] 18:30:00 Test Item Value Reference Range Interpretation Comments HEMOGLOBIN (MITA) (test code = 7.6 GM/DL 11.2-15.7 L 410) HEMATOCRIT (MITA) (test code = 24.3 % 34.1-44.9 L 411) Water Pollution Control Inspector ID - [id number] ID - 6000POCT-GLUCOSE [id number] 18:02:00 Test Item Value Reference Range Interpretation Comments POC-GLUCOSE METER 331 mg/dL 70-110 H : TESTED A T [facility] (MITA) (test [facility], = 1538) [address]: Water Pollution Control Inspector/Techni sanjeev ID = [id number] for HEATHER DUNLAP Hepatitis C PCR, [id number] 15:48:00 Test Item Value Reference Range Interpretation Comments HCV PCR, Quantitative HCV RNA not detected HCV RNA not (test code = 01120-7) detected JULIAN (test code = JULIAN) This test uses a Real-Time Polymerase Chain Reaction (RT-PCR) methodology and was performed using KE[employer]IA Ampliprep/KEZIA TaqMan HCV test kit version 2.0 ([employer] Reportable range for this assay is 15 - 100,000,000 IU per mL (1.18 - 8.00 Log IU/mL).This test uses a Real-Time Polymerase Chain Reaction (RT-PCR) methodology and was performed using [employer] Ampliprep/KEZIA TaqMan HCV test kit version 2.0 ([employer]). Reportable range for this assay is 15 - 100,000,000 IU per mL (1.18 - 8.00 Log IU/mL). Lab Interpretation Normal (test code = 47878-6) [facility] CenterHEPAT[facility]IS C PCR, [id number] 15:48:00 Test Item Value Reference Range Interpretation Comments HCV RESULT COMPONENT HCV RNA not detected HCV RNA not detected (MITA) (test code = 2699) This test uses a Real-Time Polymerase Chain Reaction (RT-PCR) methodology and was performed using [employer] Ampliprep/KEZIA TaqMan HCV test kit version 2.0 ([employer]).Reportable range for this assay is 15 - 100,000,000 IU per mL (1.18 - 8.00 Log IU/mL).This test uses a Real-Time Poly merase Chain Reaction (RT-PCR) methodology and was performed using [employer] Ampliprep/KEZIA TaqMan HCV test kit version 2.0 ([employer]).Reportable range for this assay is 15 - 100,000,000 IU per mL (1.18 - 8.00 Log IU/mL).Hepatitis B PCR, [id number] 13:54:00 Test Item Value Reference Range Interpretation Comments HBV PCR, Quantitative HBV DNA not detected HBV DNA not (test code = 39657-5) detected JULIAN (test code = JULIAN) This test uses a Real-Time Polymerase Chain Reaction (RT-PCR) methodology and was performed using [employer] AmpliPrep/KEZIA TaqMan HBV Test, v2.0 ([employer] Reportable range for this assay is 20 - 170,000,000 IU per mL (1.30 - 8.23 Log IU/mL). Lab Interpretation Normal (test code = 49252-8) [facility] CenterHEPAT[facility]IS B PCR, [id number] 13:54:00 Test Item Value Reference Range Interpretation Comments HBV RESULT COMPONENT HBV DNA not detected HBV DNA not detected (BEAKER) (test code = 2701) This test uses a Real-Time Polymerase Chain Reaction (RT-PCR) methodology and was performed using [employer] AmpliPrep/KEZIA TaqMan HBV Test, v2.0 ([employer]Reportable range for this assay is 20 - 170,000,000 IU per mL (1.30 - 8.23 Log IU/mL).POCT-GLUCOSE [id number] 12:15:00 Test Item Value Reference Range Interpretation Comments POC-GLUCOSE METER 195 mg/dL 70-110 H : TESTED A T [facility] 67[facility] (BEAKER) (test code [facility], = 1538) [address]: Water Pollution Control Inspector/Techni sanjeev ID = [id number] for HEATHER DUNLAP Anti-Nuclear Antibody (AARON)2020-12-11 10:19:00 Test Item Value Reference Range Interpretation Comments AARON (test code = 81442-3) Negative Negative JULIAN (test code = JULIAN) Test performed by IFA method.Test performed by IFA method. Lab Interpretation (test Normal code = 03951-6) [facility] CenterANTI-NUCLEAR ANTIBODY (AARON)2020-12-11 10:19:00 Test Item Value Reference Range Interpretation Comments ANTI-NUCLEAR ANTIBODY (AARON) (BEAKER) Negative Negative (test code = 418) Test performed by IFA method.Test performed by IFA method.Urine culture 2020-12-11 08:28:00 Test Item Value Reference Range Interpretation Comments Result (test code = 6463-4) No growth [facility] Center[facility] [id number] 08:12:00 Test Item Value Reference Range Interpretation Comments POC-GLUCOSE METER 262 mg/dL 70-110 H : TESTED A T [facility] (BEAKER) ([facility], = 1538) [address]: Water Pollution Control Inspector/Techni sanjeev ID = [id number] for HEATHER DUNLAP CALCIUM, [id number] 06:45:00 Test Item Value Reference Range Interpretation Comments CALCIUM IONIZED (BEAKER) (test 1.10 mmol/L 1.12-1.27 L code = 698) PH, BLOOD (BEAKER) (test code = 7.35 1810) COMPREHENSIVE METABOLIC [id number] 06:28:00 Test Item Value Reference Range Interpretation [...] S NOT APPLICABLE FOR DIALYSIS PATIEN TS. Water Pollution Control Inspector ID - MARCUS [id number] 06:28:00 Test Item Value Reference Range Interpretation Comments MAGNESIUM (BEAKER) (test code = 1.5 mg/dL 1.6-2.6 L 627) Water Pollution Control Inspector ID Joaquin VELAZQUEZ [id number] 06:28:00 Test Item Value Reference Range Interpretation Comments PHOSPHORUS (BEAKER) (test code = 2.6 mg/dL 2.3-4.7 604) Water Pollution Control Inspector ID - MARCUS WCBC W/PLT COUNT & AUTO [id number] 05:30:00 Test Item Value Reference Range Interpretation [...] (BEAKER) (test code = 2801) HEMOGLOBIN AND [id number] 23:46:00 Test Item Value Reference Range Interpretation Comments HEMOGLOBIN (BEAKER) (test code = 7.9 GM/DL 11.2-15.7 L 410) HEMATOCRIT (BEAKER) (test code = 24.4 % 34.1-44.9 L 411) Water Pollution Control Inspector ID - [id number]-GLUCOSE [id number] 21:51:00 Test Item Value Reference Range Interpretation Comments POC-GLUCOSE METER 330 mg/dL 70-110 H : TESTED A T [facility] 6720 (BEAKER) (test code = [facility], 1538) [address]: Water Pollution Control Inspector/Techni sanjeev ID = [id number] for ERIC FREGOSO POCT-GLUCOSE [id number] 16:37:00 Test Item Value Reference Range Interpretation Comments POC-GLUCOSE METER 215 mg/dL 70-110 H : TESTED A T [facility] 6720 (BEAKER) (test code = [facility], 1538) [address]: Water Pollution Control Inspector/Techni sanjeev ID = [id number] for Yolie Feliciano CBC W/PLT COUNT & AUTO [id number] 13:45:00 Test Item Value Reference Range Interpretation [...] PERCENT (BEAKER) (test code = 2801) POCT-GLUCOSE [id number] 12:00:00 Test Item Value Reference Range Interpretation Comments POC-GLUCOSE METER 293 mg/dL 70-110 H : TESTED A T [facility] 6720 (BEAKER) (test code = [facility], 153) [address]: Water Pollution Control Inspector/Techni sanjeev ID = [id number] for CLAUDIO FU Hemoglobin [id number] 07:57:00 Test Item Value Reference Range Interpretation Comments Hemoglobin A1C (test code = 4548-4) 7.7 % 4.3-6.1 H Lab Interpretation (test code = Abnormal 49574-0) [facility] CenterHEMOGLOBIN [id number] 07:57:00 Test Item Value Reference Range Interpretation Comments HEMOGLOBIN A1C (BEAKER) (test code = 7.7 % 4.3-6.1 H 368) POCT-GLUCOSE [id number] 07:28:00 Test Item Value Reference Range Interpretation Comments POC-GLUCOSE METER 253 mg/dL 70-110 H : TESTED A T [facility] 6720 (BEAKER) (test code = [facility], 153) [address]: Water Pollution Control Inspector/Techni sanjeev ID = [id number] for CLAUDIO FU COMPREHENSIVE METABOLIC [id number] 06:23:00 Test Item Value Reference Range Interpretation [...] S NOT APPLICABLE FOR DIALYSIS PATIEN TS. Water Pollution Control Inspector ID - MARCUS [id number] 06:12:00 Test Item Value Reference Range Interpretation Comments MAGNESIUM (BEAKER) 1.7 mg/dL 1.6-2.6 Specimen slightly (test code = 627) hemolyzed Water Pollution Control Inspector ID - MARCUS [id number] 06:12:00 Test Item Value Reference Range Interpretation Comments PHOSPHORUS (BEAKER) 2.8 mg/dL 2.3-4.7 Specimen slightly (test code = 604) hemolyzed Water Pollution Control Inspector ID - MARCUS WCBC W/PLT COUNT & AUTO [id number] 06:09:00 Test Item Value Reference Range Interpretation [...] 2801) Patient actively bleeding as per NODPROTHROMBIN TIME/[id number] 06:00:00 Test Item Value Reference Range Interpretation Comments PROTIME (BEAKER) 16.5 seconds 11.9-14.2 H (test code = 759) INR (MITA) (test 1.35 See_Comment [Automat ed message] code = 370) The system [employer] generated this result transmitted ref erence range: <=5.90. The reference range was not used to int erpret this result as normal/abnormal . RECOMMENDED COUMADIN/WARFARIN INR THERAPY RANGESSTANDARD DOSE: 2.0 - 3.0 Includes: PROPHYLAXIS forvenous thrombosis, systemic embolization; TREATMENT for venous thrombosis and/or pulmonary embolus.HIGH RISK: Target INR is 2.5-3.5 for patients with mechanical heart valves.U/S, ABDOMINAL, WITH [id number] 05:50:00cirrhosis history with acute bleed. please check liver dopplers Reason for exam:->cirrhosis history with acute bleed. please check liver dopplers [facility] CENTERName: AYLEEN GLEASON : 1965 Sex: [...] Verified Date/Time: 12/10/2020 05:50:47 US abdominal with [id number] 05:50:00Interface, External Ris In - 12/10/2020 5:53 [...] Steven Green MDReport Verified Date/Time: 12/10/2020 05:50:47 [facility] [id number] 05:36:00 Test Item Value Reference Range Interpretation Comments CALCIUM IONIZED (BEAKER) (test 0.96 mmol/L 1.12-1.27 L code = 698) PH, BLOOD (BEAKER) (test code = 7.39 1810) POCT-GLUCOSE [id number] 23:40:00 Test Item Value Reference Range Interpretation Comments POC-GLUCOSE METER 296 mg/dL 70-110 H : TESTED A T [facility] 67[facility] (BEAKER) (test code = [facility] [place], 1538) [address]: Water Pollution Control Inspector/Techni sanjeev ID = [id number] for MICK BROWN, [id number] 20:39:00 Test Item Value Reference Range Interpretation Comments ABO Grouping (test code = 2588) A Rh Factor (test code = 2589) POS [facility] CenterHEMOGLOBIN AND [id number] 19:15:00 Test Item Value Reference Range Interpretation Comments HEMOGLOBIN (BEAKER) (test code = 10.0 GM/DL 11.2-15.7 L 410) HEMATOCRIT (BEAKER) (test code = 31.1 % 34.1-44.9 L 411) Water Pollution Control Inspector ID - [id number]-1 Antigen with HIV-1/2 [id number] 19:10:00 Test Item Value Reference Range Interpretation Comments HIV-1 Antigen with HIV 1&2 Nonreactive Nonreactive Antibody (test code = 00826-7) JULIAN (test code = JULIAN) Water Pollution Control Inspector ID - EO Lab Interpretation (test Normal code = 82795-3) [facility] CenterHepatitis A antibody, [id number] 19:10:00 Test Item Value Reference Range Interpretation Comments Hep A IgG (test code = Nonreactive Nonreactive 20879-2) JULIAN (test code = JULIAN) Water Pollution Control Inspector ID - EO Lab Interpretation (test Normal code = 85275-6) [facility] CenterHIV-1 ANTIGEN WITH HIV-1/2 [id number] 19:10:00 Test Item Value Reference Range Interpretation Comments HIV-1 ANTIGEN WITH HIV 1\T\2 Nonreactive Nonreactive ANTIBODY (2) (BEAKER) (test code = 2586) Water Pollution Control Inspector ID - EOHEPATITIS A ANTIBODY, [id number] 19:10:00 Test Item Value Reference Range Interpretation Comments HEPATITIS A IGG ANTIBODY (BEAKER) Nonreactive Nonreactive (test code = 2797) Water Pollution Control Inspector ID - EOHepatitis panel, [id number] 18:50:00 Test Item Value Reference Range Interpretation Comments Hep A IgM (test code = Nonreactive Nonreactive 00588-5) Hep B C IgM (test code = Nonreactive Nonreactive 43993-8) Hepatitis C Ab (test code = Reactive Nonreactive A 85459-7) HBsAg Screen (test code = Nonreactive Nonreactive 5195-3) JULIAN (test code = JULIAN) Water Pollution Control Inspector ID - EO Lab Interpretation (test Abnormal code = 09645-9) [facility] CenterHEPATITIS PANEL, [id number] 18:50:00 Test Item Value Reference Range Interpretation Comments HEPATITIS A IGM ANTIBODY (BEAKER) Nonreactive Nonreactive (test code = 498) HEPATITIS B CORE IGM ANTIBODY Nonreactive Nonreactive (BEAKER) (test code = 645) HEPATITIS C ANTIBODY (BEAKER) Reactive Nonreactive A (test code = 367) HEPATITIS B SURFACE ANTIGEN (2) Nonreactive Nonreactive (BEAKER) (test code = 2585) Water Pollution Control Inspector ID - EOHepatitis B core antibody, [id number] 18:49:00 Test Item Value Reference Range Interpretation Comments Hep B Core Total Ab (test Reactive Nonreactive A code = 70325-5) JULIAN (test code = JULIAN) Water Pollution Control Inspector ID - EO Lab Interpretation (test Abnormal code = 61295-7) [facility] CenterHEPATITIS B CORE ANTIBODY, [id number] 18:49:00 Test Item Value Reference Range Interpretation Comments HEPATITIS B CORE TOTAL ANTIBODY Reactive Nonreactive A (BEAKER) (test code = 497) Water Pollution Control Inspector ID - EOCarcinoembryonic Antigen (CEA)2020-12-09 18:42:00 Test Item Value Reference Range Interpretation Comments CEA, SERUM (test code = 11.8 ng/mL 0-5 H 2038-10) JULIAN (test code = JULIAN) Water Pollution Control Inspector ID - EO Lab Interpretation (test Abnormal code = 52706-9) [facility] CenterAlpha fetoprotein (AFP), tumor [id number] 18:42:00 Test Item Value Reference Range Interpretation Comments Alpha-Fetoprotein (test code 3.4 ng/mL <10.0 = 1834-1) JULIAN (test code = JULIAN) Water Pollution Control Inspector ID - EO Lab Interpretation (test Normal code = 17030-4) [facility] CenterCARCINOEMBRYONIC ANTIGEN (CEA)2020-12-09 18:42:00 Test Item Value Reference Range Interpretation Comments CARCINOEMBRYONIC ANTIGEN (BEAKER) 11.8 ng/mL 0.0-5.0 H (test code = 685) Water Pollution Control Inspector ID - EOALPHA FETOPROTEIN (AFP), TUMOR [id number] 18:42:00 Test Item Value Reference Range Interpretation Comments ALPHA-FETOPROTEIN (BEAKER) (test 3.4 ng/mL <10.0 code = 1094) Water Pollution Control Inspector ID - EOVitamin D, [id number] 18:39:00 Test Item Value Reference Range Interpretation Comments Vitamin D 25-Hydroxy 9.7 ng/mL 6.6-49.9 (test code = 2764) JULIAN (test code = JULIAN) Effective 03/12/2017: Reference Range ChangeNew: 6.6-49.9 ng/mL Previous: 13.0-47.8 ng/mL Recommended Vitamin D Target Range: 30.0-40.0 ng/mLOperator ID - EO Lab Interpretation (test Normal code = 55327-0) [facility] CenterVITAMIN D, [id number] 18:39:00 Test Item Value Reference Range Interpretation Comments VITAMIN D 25-OH (BEAKER) (test code 9.7 ng/mL 6.6-49.9 = 2764) Effective 03/12/2017: Reference Range ChangeNew: 6.6-49.9 ng/mL Previous: 13.0-47.8 ng/mLRecommended Vitamin D Target Range: 30.0-40.0 ng/mLOperator ID - TXHryjm-6-yplwyqkquoo5068-07-10 18:22:00 Test Item Value Reference Range Interpretation Comments A-1 Antitrypsin (test code = 127.60 mg/dL 90-200 1825-9) JULIAN (test code = JULIAN) Water Pollution Control Inspector ID - EO Lab Interpretation (test Normal code = 14171-7) [facility] CenterALPHA-1-[id number] 18:22:00 Test Item Value Reference Range Interpretation Comments ALPHA-1 ANTITRYPSIN (BEAKER) 127.60 mg/dL 90.00-200.00 (test code = 502) Water Pollution Control Inspector ID - [id number] 17:32:00 Test Item Value Reference Range Interpretation Comments AMMONIA (BEAKER) (test code = 348) 97 mol/L 18-72 H Water Pollution Control Inspector ID - DBUrinalysis w/Microscopic + Reflex to [id number] 17:27:00 Test Item Value Reference Range Interpretation Comments Color, UA (test code Light Yellow = 5778-6) Clarity, UA (test Clear code = 5767-9) Specific [place], UA 1.017 1.001-1.035 (test code = 5811-5) pH, UA (test code = 6.0 5.0-8.0 5803-2) Protein, UA (test 20 mg/dL Negative A code = 56125-0) Glucose, UA (test Negative Negative code = 365) Ketones, UA (test 10 mg/dL Negative A code = 2514-8) Bilirubin, UA (test Negative Negative code = 09288-7) Blood, UA (test code Moderate Negative A = 53155-5) Nitrite, UA (test Negative Negative code = 5802-4) Leukocytes, UA (test Moderate Negative A code = 5799-2) Urobilinogen, UA 0.2 mg/dL 0.2-1 (test code = 30451-1) RBC, UA (test code = 137 See_Comment [Autom ated 28243-1) message] The system which generated this result [...] . Bacteria, UA (test Few code = 82130-0) Mucus (test code = Rare 8247-9) Squam Epithel, UA <1 See_Comment [Automate d (test code = 89128-7) messag e] The system which generated this result transmitted reference range : /HPF. The reference range was not used to interpret this result as normal/abnormal . Hyaline Casts, UA 4 See_Comment [Automate d (test code = 46411-1) messag e] The system which generated this result transmitted reference range : /LPF. The reference range was not used to interpret this result as normal/abnormal . Crystals, Urine (test Occasional code = 38313-8) Specimen Source (test code = 2795) JULIAN (test code = JULIAN) Water Pollution Control Inspector ID - [auto]Water Pollution Control Inspector ID - tech Lab Interpretation Abnormal (test code = 00181-7) [facility] CenterURINALYSIS W/ REFLEX URINE [id number] 17:27:00 Test Item Value Reference Range Interpretation [...] code = 1521) SOURCE(BEAKER) (test code = 9815) Water Pollution Control Inspector ID - [auto]Water Pollution Control Inspector ID - [id number] 16:11:00 Test Item Value Reference Range Interpretation Comments Ferritin (test code = 30.15 ng/mL 5-275 2276-4) JULIAN (test code = JULIAN) Water Pollution Control Inspector ID - DB Lab Interpretation (test Normal code = 18354-7) [facility] [id number] 16:11:00 Test Item Value Reference Range Interpretation Comments FERRITIN (BEAKER) (test code = 30.15 ng/mL 5.00-275.00 361) Water Pollution Control Inspector ID - DBAcetaminophen [id number] 15:52:00 Test Item Value Reference Range Interpretation Comments Acetaminophen Level <5.7 10-30 L (test code = 3298-7) JULIAN (test code = JULIAN) Therapeutic Range: 10.0-30.0 g/mLToxic Levels: >200.0 g/mL Water Pollution Control Inspector ID - DB Lab Interpretation (test Abnormal code = 55883-8) [facility] CenterACETAMINOPHEN [id number] 15:52:00 Test Item Value Reference Range Interpretation Comments ACETAMINOPHEN LEVEL (BEAKER) (test < ug/mL 10.0-30.0 L code = 344) Therapeutic Range: 10.0-30.0 g/mLToxic Levels: >200.0 g/mLOperator ID - DBCOMPREHENSIVE METABOLIC [id number] 15:52:00 Test Item Value Reference Range Interpretation [...] S NOT APPLICABLE FOR DIALYSIS PATIEN TS. Water Pollution Control Inspector ID - DBIron, TIBC, % sat. (without ferritin)2020-12-09 15:51:00 Test Item Value Reference Range Interpretation Comments Iron (test code = 2498-4) 160.0 ug/dL 40-160 TIBC (test code = 2500-7) 355 ug/dL 250-450 Iron % Saturation (test code 45 % 20-55 = 2502-3) JULIAN (test code = JULIAN) Water Pollution Control Inspector ID - DB Lab Interpretation (test Normal code = 93458-2) [facility] CenterIRON, TIBC, % SAT. (WITHOUT FERRITIN)2020-12-09 15:51:00 Test Item Value Reference Range Interpretation Comments IRON (BEAKER) (test code = 547) 160.0 ug/dL 40.0-160.0 TOTAL IRON BINDING CAPACITY 355 ug/dL 250-450 (BEAKER) (test code = 769) IRON % SATURATION (2) (BEAKER) 45 % 20-55 (test code = 2590) Water Pollution Control Inspector ID - DBCBC W/PLT COUNT & AUTO [id number] 15:32:00 Test Item Value Reference Range Interpretation [...] 417) IMMATURE GRANULOCYTES-RELATIVE 0 % 0-1 PERCENT (MITA) (test code = 2801) CHEM [id number] 19:53:00005Chknnoms HermannCHEM [id number] 19:53:0018 [facility]annCHEM [id number] 19:53:001.37[facility] HermannCHEM PANEL 2020-10-23 19:53:0044[facility] HermannCHEM [id number] 19:53:0051[facility] HermannCHEM [id number] 19:53:0013[facility] HermannCHEM [id number] 19:53:30861Ignyiyib HermannCHEM [id number] 19:53:003.9[facility]annCHEM [id number] 19:53:0099[facility]annCHEM [id number] 19:53:0031 [facility]ann[facility] [id number] 19:53:009.6[facility]annCHEM PANEL 2020-10-23 19:53:007.6[facility]annCHEM [id number] 19:53:003.9[facility]annCHEM [id number] 19:53:003.7[facility]annCHEM [id number] 19:53:001.1[facility]annCHEM [id number] 19:53:000.8[facility]annCHEM [id number] 19:53:0095[facility]annCHEM [id number] 19:53:0029 [facility] [id number] 19:53:0027[facility]annCHEM PANEL 2020-10-23 19:53:54150Mecfjvwp HermannSPECIAL DUUCCLKFB6818-51-75 19:53:009.5 [facility] [id number] 19:53:16668Aflnitjm HermannCHEM PANEL 2020-10-23 19:53:0018[facility]annCHEM [id number] 19:53:001.37[facility]annCHEM [id number] 19:53:0044[facility]annCHEM [id number] 19:53:0051[facility]annCHEM [id number] 19:53:0013[facility]annCHEM [id number] 19:53:69788Lgeayagc HermannCHEM KTQPI1900-24-09 19:53:003.9 [facility] [id number] 19:53:0099[facility]annCHEM PANEL 2020-10-23 19:53:0031[facility]annCHEM [id number] 19:53:009.6[facility]annCHEM [id number] 19:53:007.6[facility]ann[facility] [id number] 19:53:003.9[facility]annCHEM [id number] 19:53:003.7[facility]annCHEM [id number] 19:53:001.1[facility]ann[facility] ZJJOX0346-29-78 19:53:000.8 [facility] [id number] 19:53:0095[facility]annCHEM PANEL 2020-10-23 19:53:0029[facility]annCHEM UZBEC0713-08-09 19:53:0027[facility]ann[facility]M [id number] 19:53:00201Iotkopbd HermannSPECIAL CHEMISTRY 2020-10-23 19:53:009.5[facility]annCHEM [id number] 19:53:92669Xvpwiwra HermannCHEM [id number] 19:53:0018[facility]ann[facility] [id number] 19:53:001.37[facility]annCHEM [id number] 19:53:0044[facility]annCHEM [id number] 19:53:0051[facility]annCHEM [id number] 19:53:0013 [facility] LPLSZ5573-21-02 19:53:26071Xxqncrvq HermannCHEM PANEL 2020-10-23 19:53:003.9[facility]annCHEM CWUHP0280-90-12 19:53:0099[facility]ann[facility]M [id number] 19:53:0031[facility]annCHE[facility] [id number] 19:53:009.6[facility]annCHEM TRITZ6996-64-12 19:53:007.6[facility] HFOZS6471-05-35 19:53:003.9[facility]annCHEM VYBGY1175-41-34 19:53:003.7 [facility] [id number] 19:53:001.1[facility]annCHEM PANEL 2020-10-23 19:53:000.8[facility]annCHEM [id number] 19:53:0095[facility]annCHEM [id number] 19:53:0029[facility]annCHEM [id number] 19:53:0027[facility]annCHEM [id number] 19:53:37150Ptglkcul García SPECIAL PKSTETHXO8766-14-56 19:53:009.5[facility]annCHEM [id number] 19:53:000.8[facility]annCHEM PZQRT0050-14-45 19:53:0095[facility]annCHEM [id number] 19:53:0029[facility]annCHEM [id number] 19:53:0027 [facility]annCHEM [id number] 19:53:82190Lttojduo HermannSPECIAL BARADLTQC0400-42-44 19:53:009.5[facility]annCHEM [id number] 19:53:55560 [facility]CHE[facility] [id number] 19:53:0018[facility]annCHEM PANEL 2020-10-23 19:53:001.37[facility]annCHEM [id number] 19:53:0044[facility]annCHEM [id number] 19:53:0051[facility]annCHEM [id number] 19:53:0013[facility]annCHEM [id number] 19:53:64177Rpanrndj HermannCHEM DPHNV0008-52-21 19:53:003.9[facility]annCHEM [id number] 19:53:0099 [facility] [id number] 19:53:0031[facility]annCHEM PANEL 2020-10-23 19:53:009.6[facility]annCHEM [id number] 19:53:007.6[facility]annCHEM OQZJD5506-97-65 19:53:003.9[facility] HermannCHEM [id number] 19:53:003.7[facility] HermannCHEM [id number] 19:53:001.1[facility]ía
[2021-08-22] MEDS ORDERED: HYDROCORTISONE SUC 100 MG INJ ONE (17:25)
[2021-08-22 17:53] LABS: Absolute Lymphocytes (CBC) 0.8 K/uL (0.7-4.9); Hematocrit 31.7 % (36.0-45.0); Lymphocytes % 17.9 % (15.3-44.8); MPV 9.1 fL (7.6-11.3); RBC Red Blood Cell Count 3.55 M/uL (3.86-4.86)
[2021-08-22] MEDS ORDERED: HYDROCORTISONE SUC 100 MG INJ IV SCH (18:00)
[2021-08-22] MEDS ORDERED: WATER FOR INJ,STERILE 10 ML IV SCH (18:00)
[2021-08-22 18:02] LABS: Protime INR 1.13
[2021-08-22 18:23] LABS: Blood Morphology Comment NOT SEEN (NOT SEEN); Platelet Estimate DECR; White Blood Cell Scan OK (OK)
[2021-08-22 18:39] LABS: Albumin 3.3 g/dL (3.4-5.0); Bilirubin Direct 0.2 mg/dL (0-0.2); Bilirubin Total 0.7 mg/dL (0.2-1.0); Potassium 3.8 mmol/L (3.5-5.1); Protein, Total 7.5 g/dL (6.4-8.2)
--- NOTE | 2021-08-22 18:42 | ER ---
Nurse's Notes [facility] Name: Cheyenne Mcgill Age: 55 yrs Sex: Female : 1965 Arrival Date: 08/22/2021 Time: 16:01 Bed 13 Private MD: Diagnosis: Hypoglycemia, unspecified;Unspecified cirrhosis of liver Presentation: 08/22 16:01 Chief complaint: Patient states: AMD, blood glucose was initially 53. Coronavirus cb5 screen: Client denies travel out of the [place] in the last 14 days. At this time, the client does not indicate any symptoms associated with coronavirus-19. Ebola Screen: Patient denies travel to an Ebola-affected area in the 21 days before illness onset. Initial Sepsis Screen: Does the patient meet any 2 criteria? No. Patient's initial sepsis screen is negative. Does the patient have a suspected source of infection? No. Patient's initial sepsis screen is negative. Risk Assessment: Do you want to hurt yourself or someone else? Patient reports no desire to harm self or others. 16:01 Method Of Arrival: EMS: [facility] cb5 16:01 Acuity: ABDULKADIR 3 cb5 20:19 Onset of symptoms was August 22, 2021. ke1 Triage Assessment: 16:01 General: Appears comfortable, Behavior is calm, cooperative, appropriate for age. Pain: cb5 Denies pain. Historical: - PMHx: 16:10 cirrhosis of liver; Diabetes - NIDDM; Hepatitis; low platelets; splenomegaly; cb5 - Immunization history:: Adult Immunizations up to date. - Social history:: Smoking status: . - Family history:: not pertinent. - Hospitalizations: : No recent hospitalization is reported. Screenin:10 Abuse screen: Denies threats or abuse. Denies injuries from another. Nutritional cb5 screening: No deficits noted. Tuberculosis screening: No symptoms or risk factors identified. 16:14 Fall Risk None identified. cb5 Assessment: 16:12 General: Appears in no apparent distress. Behavior is calm, cooperative, appropriate cb5 for age. Pain: Denies pain. Neuro: Level of Consciousness is awake, alert, obeys commands, Oriented to person, place, time, situation, Appropriate for age. Cardiovascular: No deficits noted. Respiratory: No deficits noted. GI: Abdomen is noted to have ascites, bruised on right lower quadrant and left lower quadrant Bowel sounds present X 4 quads. : No deficits noted. EENT: No deficits noted. Derm: No deficits noted. Musculoskeletal: No deficits noted. 16:30 General: two nurses called lab and requested they obtain blood specimens.. cb5 17:25 General: mobile home technician is attempting to obtain blood specimens. cb5 20:18 Reassessment:. General: Appears in no apparent distress. comfortable, Behavior is calm, ke1 cooperative. Pain: Denies pain. Neuro: Level of Consciousness is awake, alert, obeys commands, Oriented to person, place, time, situation. Cardiovascular: Capillary refill < 3 seconds Patient's skin is warm and dry. Respiratory: Airway is patent Respiratory effort is even, unlabored. GI: Abdomen is obese, Bowel sounds present X 4 quads. : No deficits noted. EENT: No deficits noted. Derm: No deficits noted. Musculoskeletal: No deficits noted. 20:45 Reassessment: Called for report but nurse is passing meds, will call back. ke1 21:07 Reassessment: Report given to Isabelle FRANZ. ke1 Vital Signs: 16:01 BP 131 / 88; Pulse 84; Resp 16; Temp 98.4; Pulse Ox 99% ; Weight 86.18 kg; Height 5 ft. cb5 5 in. (165.10 cm); Pain 0/10; 20:15 BP 127 / 72; Pulse 83; Resp 16; Pulse Ox 98% on R/A; ke1 16:01 Body Mass Index 31.62 (86.18 kg, 165.10 cm) cb5 ED Course: 16:01 Patient arrived in ED. cb5 16:01 Tika Hdez, RN is Primary Nurse. cb5 16:07 Simón Washburn MD is Attending Physician. rn 16:08 Triage completed. cb5 16:10 Arm band placed on. cb5 16:10 No provider procedures requiring assistance completed. cb5 16:13 Bed in low position. Side rails up X2. cb5 17:02 CBC with Diff Sent. cb5 17:45 Initial lab(s) drawn, by me, sent to lab. em1 18:41 Damion Purcell is Hospitalizing Provider. rn 19:25 Report given to Kiet Jaime 5 19:29 COVID-19 SARS RT PCR (Document "Date of Onset" if Symptomatic) Sent. cs9 21:07 Patient admitted, IV remains in place. ke1 Administered Medications: 17:10 Drug: HydroCORTISONE 100 mg Route: IVP; Site: left hand; cb5 21:09 Follow up: Response: Marked relief of symptoms ke1 18:45 Drug: D5-1/2 NS 1000 ml Route: IV; Rate: 150 ml/hr; Site: left hand; ke1 18:55 Drug: traMADol 50 mg Route: PO; ke1 21:09 Follow up: Response: Marked relief of symptoms ke1 18:55 Drug: D50W 50 ml Route: IVP; Site: left antecubital; ke1 21:09 Follow up: Response: Marked relief of symptoms ke1 Outcome: 18:41 Decision to Hospitalize by Provider. rn 21:06 Admitted to Med/surg accompanied by tech. ke1 21:06 Condition: good 21:06 Instructed on the need for admit. 21:08 Patient left the ED. [facility] Signatures: Simón Washburn MD MD rn Martinez, Eric em1 Stanford, Christine cs9 Tika Hdez RN RN cb5 Addison Peraza RN RN ke1 Corrections: (The following items were deleted from the chart) 19:23 19:15 Report given to MARIA M Jaime ke1 ke1
--- NOTE | 2021-08-22 18:42 | EDPHYS ---
Physician Documentation [facility] Name: Cheyenne Mcgill Age: 55 yrs Sex: Female : 1965 Arrival Date: 08/22/2021 Time: 16:01 Bed 13 Private MD: ED Physician Simón Washburn HPI: 08/22 18:00 This 55 yrs old Female presents to ER via EMS with complaints of low blood sugar. rn 18:00 The patient or guardian reports hypoglycemia, that was potentially precipitated by no rn particular event. 18:02 Onset: The symptoms/episode began/occurred just prior to arrival. Associated signs and rn symptoms: Pertinent positives: None. Pertinent negatives: constipation, diarrhea, seizure activity, vomiting. Current symptoms: In the emergency department the patient's symptoms have improved. The patient has experienced similar episodes in the past. The patient has been recently seen by a physician:. EMS reports called out for AMS, noted to have low blood glucose, given glucose with resolution of symptoms, now back to baseline. Patient reports takes 3 diabetic medication including insulin and has had problems with high and low blood glucose numerous times in past. Reports sometimes compliant with her medication, and has not been taking her lactulose more than once a day. No head injury or syncope. No seizure activity. NO chest pain/abd pain.. Historical: - PMHx: 16:10 cirrhosis of liver; Diabetes - NIDDM; Hepatitis; low platelets; splenomegaly; cb5 - Immunization history:: Adult Immunizations up to date. - Social history:: Smoking status: . - Family history:: not pertinent. - Hospitalizations: : No recent hospitalization is reported. ROS: 18:05 Constitutional: Negative for fever, chills, and weight loss, Eyes: Negative for injury, rn pain, redness, and discharge, Neck: Negative for injury, pain, and swelling, Cardiovascular: Negative for chest pain, palpitations, and edema, Respiratory: Negative for shortness of breath, cough, wheezing, and pleuritic chest pain, Abdomen/GI: Negative for nausea, vomiting, diarrhea Back: Negative for injury and pain, : Negative for injury, bleeding, discharge, and swelling, MS/Extremity: Negative for injury and deformity, Skin: Negative for injury, rash, and discoloration, Neuro: Negative for headache, numbness, tingling, and seizure. Exam: 18:05 Constitutional: Patient who is awake, alert, and in no acute distress. Head/Face: rn Normocephalic, atraumatic. Eyes: Periorbital areas with no swelling, redness, or edema. ENT: MMM Cardiovascular: Regular rate and rhythm. No pulse deficits. Respiratory: No increased work of breathing, no retractions or nasal flaring. Abdomen/GI: soft, non-tender Skin: Warm, dry, no cyanosis or cellulitis MS/ Extremity: Pulses equal, no cyanosis. Neurovascular intact. Full, normal range of motion. Equal circumference. Neuro: Awake and alert, GCS 15, oriented to person, place, time, and situation. Cranial nerves II-XII grossly intact. Motor strength 5/5 in all extremities. Sensory grossly intact. Cerebellar exam normal. Vital Signs: 16:01 BP 131 / 88; Pulse 84; Resp 16; Temp 98.4; Pulse Ox 99% ; Weight 86.18 kg; Height 5 ft. cb5 5 in. (165.10 cm); Pain 0/10; 20:15 BP 127 / 72; Pulse 83; Resp 16; Pulse Ox 98% on R/A; ke1 16:01 Body Mass Index 31.62 (86.18 kg, 165.10 cm) cb5 MDM: 16:07 Patient medically screened. rn 18:39 Differential diagnosis: hypoglycemic episode. Data reviewed: vital signs, nurses notes, new grad rn test result(s), and as a result, I will admit patient. Counseling: I had a detailed discussion with the patient and/or guardian regarding: the historical points, exam findings, and any diagnostic results supporting the discharge/admit diagnosis, lab results, the need for further work-up and treatment in the hospital. Response to treatment: the patient's symptoms have mildly improved after treatment, and as a result, I will admit patient. Admission orders: after a detailed discussion of the patient's condition and case, the admit orders are written by me. ED course: Pt still with hypoglycemia, is 46 despite glucose administration by EMS. In addition, patient states did not take insulin today and ate chicken fried steak and macaroni and cheese. Ammonia normal. Will admit for observation.. 08/22 16:14 Order name: Basic Metabolic Panel; Complete Time: 18:43 rn 08/22 16:14 Order name: Protime (+inr); Complete Time: 18:02 rn 08/22 16:14 Order name: Ptt, Activated; Complete Time: 18:02 rn 08/22 16:14 Order name: LFT's; Complete Time: 18:43 rn 08/22 16:15 Order name: AMMONIA; Complete Time: 18:05 rn 08/22 16:15 Order name: CBC with Diff; Complete Time: 18:38 rn 08/22 18:24 Order name: CBC Smear Scan; Complete Time: 18:38 EDDC 08/22 19:20 Order name: COVID-19 SARS RT PCR (Document "Date of Onset" if Symptomatic) 08/22 20:19 Order name: SARS-COV-2 RT PCR EDDC 08/22 20:48 Order name: Glucose, Ancillary Testing EDDC 08/22 16:14 Order name: IV Start; Complete Time: 16:42 rn 08/22 16:15 Order name: Glucose Level; Complete Time: 17:02 rn Administered Medications: 17:10 Drug: HydroCORTISONE 100 mg Route: IVP; Site: left hand; cb5 21:09 Follow up: Response: Marked relief of symptoms ke1 18:45 Drug: D5-1/2 NS 1000 ml Route: IV; Rate: 150 ml/hr; Site: left hand; ke1 18:55 Drug: traMADol 50 mg Route: PO; ke1 21:09 Follow up: Response: Marked relief of symptoms ke1 18:55 Drug: D50W 50 ml Route: IVP; Site: left antecubital; ke1 21:09 Follow up: Response: Marked relief of symptoms ke1 Disposition Summary: 08/22/21 18:41 Hospitalization Ordered Hospitalization Status: Observation rn Provider: Damion Purcell rn Location: Telemetry/MedSurg (observation) rn Condition: Stable rn Problem: new rn Symptoms: have improved rn Bed/Room Type: Standard rn Room Assignment: 228(08/22/21 20:26) cg Diagnosis - Hypoglycemia, unspecified rn - Unspecified cirrhosis of liver rn Forms: - Medication Reconciliation Form rn - SBAR form rn Signatures: Dispatcher [employer] EDSimón Redd MD MD rn Garcia, Cindy, RN RN cg Boman, Colleen, RN RN Addison Zapien RN RN ke1 Corrections: (The following items were deleted from the chart) 20:26 18:41 rn cg
[2021-08-22] MEDS ORDERED: TRAMADOL HCL 50 MG TAB ONE (18:59)
[2021-08-22] MEDS ORDERED: D5 0.45 NS 1,000 ML IV ONE (19:01)
[2021-08-22] MEDS ORDERED: D10W 250 ML IV ONE (19:05)
--- NOTE | 2021-08-22 19:21 | P.HP ---
Certification for Inpatient Patient admitted to: Observation With expected LOS: <2 Midnights Patient will require the following post-hospital care: None Practitioner: I am a practitioner with admitting privileges, knowledge of patient current condition, hospital course, and medical plan of care. Services: Services provided to patient in accordance with Admission requirements found in Title 42 Section 412.3 of the Code of Federal Regulations Patient History Date of Service: 08/22/21 Primary Care Provider: Dr. Dubon Reason for admission: Hypoglycemia History of Present Illness: Patient is 37 year-old female with type 2 diabetesinsulin-dependent, cirrhosis, hepatitis, splenomegaly and chronic thrombocytopenia who presented to the ED via EMS after experiencing altered mental status secondary to hypoglycemia. Per patient's daughter, patient started acting very agitated, confused, and restless this afternoon. She thought her ammonia was elevated and called EMS because she could not get her to the hospital on her own. EMS checked her sugar and it was 53. They gave her glucose in route. In the ED, blood sugar on CMP was 46 despite glucose administration. Her ammonia was 45. Other labs within normal limits. Patient's daughter states that about 2 weeks ago her PCP changed insulin dose (humulin) in addition to her glipizide. Patient states her blood sugar has been running in the 50s the past couple of days despite eating regularly. She received 100 of hydrocortisone in the ED and was started on a D5 half NS drip. Upon my assessment, patient's daughter states she is acting appropriately and patient denies feeling abnormal. She is alert and oriented x4. We will admit for observation for further treatment of hypoglycemia. Allergies No Known Drug Allergies Allergy (Verified 09/28/14 22:06) Unknown No Known Allergies Allergy (Uncoded 08/10/15 02:19) Unknown Home medications list reviewed: Yes Home Medications: Biotin 1 tab PO DAILY 09/28/14 Gabapentin [Neurontin] 700 mg PO BEDTIME 09/28/14 Ibuprofen [Advil] 2 tab PO BID 09/28/14 Insulin 70/30 NPH/Reg Human [Novolin 70/30*] 30 unit SQ BID 09/28/14 Lactulose 10 gr PO DAILY 09/28/14 Metformin HCl [Glucophage] 1 tab PO DAILY 09/28/14 Multivitamin [Daily Multivitamin] 1 tab PO DAILY 09/28/14 Rifaximin [Xifaxan] 1 tab PO DAILY 09/28/14 Aspirin [Aspirin EC] 81 mg PO DAILY #30 tablet. 09/29/14 Atorvastatin Calcium [Lipitor] 10 mg PO BEDTIME #30 tab 09/29/14 Lactulose 20 gm PO DAILY #1000 ml 09/29/14 - Past Medical/Surgical History Diabetic: Yes -: DM -: PNEUMONIA -: HEP B -: HEP C -: DIABETES WITH HYPERGLYCEMIA -: ATYPICAL CHEST PAIN -: DEPENDENT EDEMA -: THROMBOCYTOPENIA -: KNEE SURGERY -: Psychosocial/ Personal History: Patient lives at home with her daughter. - Family History Father -: Heart disease Notes: heart attack Mother -: Diabetes, Stroke, Other (see notes) Notes: diverticulitis Sister -: Diabetes - Social History Smoking Status: Current every day smoker Alcohol use: No CD- Drugs: No Caffeine use: Yes Place of Residence: Home Review of Systems 10-point ROS is otherwise unremarkable Physical Examination - Physical Exam General: Alert, In no apparent distress, Oriented x3 HEENT: Atraumatic, PERRLA, Mucous membr. moist/pink, EOMI, Sclerae nonicteric Neck: Supple, 2+ carotid pulse no bruit, No LAD, Without JVD or thyroid abnormality Respiratory: Clear to auscultation bilaterally, Normal air movement Cardiovascular: Regular rate/rhythm, Normal S1 S2 Gastrointestinal: Normal bowel sounds, No tenderness Musculoskeletal: No tenderness Integumentary: No rashes Neurological: Normal speech, Normal strength at 5/5 x4 extr, Normal tone, Normal affect - Studies Laboratory Data (last 24 hrs) 08/22/21 17:40: WBC 4.40, Hgb 10.6 L, Hct 31.7 L, Plt Count 48 L* 08/22/21 17:40: PT 12.5, INR 1.13, APTT 25.8 08/22/21 17:40: Sodium 140, Potassium 3.8, BUN 13, Creatinine 1.01, Glucose 46 L*, Total Bilirubin 0.7, AST 41 H, ALT 37, Alkaline Phosphatase 92 Assessment and Plan - Problems (Diagnosis) (1) Type 2 diabetes mellitus with hypoglycemia Current Visit: Yes Status: Acute Qualifiers: Diabetes mellitus snf insulin use: with termite inspector use Diabetes mellitus complication detail: without coma Qualified Code(s): E11.649 - Type 2 diabetes mellitus with hypoglycemia without coma; Z79.4 - termite exterminator helper (current) use of insulin (2) Cirrhosis of liver Current Visit: Yes Status: Chronic Qualifiers: Hepatic cirrhosis type: unspecified hepatic cirrhosis Ascites presence: without ascites Qualified Code(s): K74.60 - Unspecified cirrhosis of liver (3) Hepatitis B Current Visit: Yes Status: Chronic Qualifiers: Viral hepatitis chronicity: chronic Hepatic coma status: without hepatic coma Hepatitis delta agent presence: without delta-agent Qualified Code(s): B18.1 - Chronic viral hepatitis B without delta-agent (4) Hepatitis C Current Visit: Yes Status: Chronic Qualifiers: Viral hepatitis chronicity: chronic Hepatic coma status: without hepatic coma Qualified Code(s): B18.2 - Chronic viral hepatitis C (5) Thrombocytopenia Current Visit: Yes Status: Chronic - Plan -Patient's hypoglycemia secondary to insulin use. Patient will likely need insulin dose adjusted and insulin education. -We will continue patient on D5 half NS at 100 mils an hour overnight -Blood sugar checks every 4 hours with mild sliding scale insulin if needed -Patient has cirrhosis. Ammonia was 45 in the ED. Will recheck in the morning. We will continue lactulose. -Patient reports feeling at her baseline and vitals have remained stable. We will continue to monitor overnight. DVT PPx: Lovenox Code: Full Discharge Plan: Home Plan to discharge in: 24 Hours - Advance Directives Does patient have a Living Will: No Does patient have a Durable POA for Healthcare: No - Code Status/Comfort Care Code Status Assessed: Yes (Full) Critical Care: No Time Spent Managing Pts Care (In Minutes): 70
[2021-08-22 21:14] VITALS: O2SAT 98
[2021-08-22] MEDS ORDERED: D5 0.45 NS 1,000 ML IV SCH (21:28)
[2021-08-22] MEDS ORDERED: DIPHENHYDRAMINE 25 MG TAB/CAP PO PRN (21:28)
[2021-08-22] MEDS ORDERED: ONDANSETRON 4 MG/2 ML VIAL IV PRN (21:28)
[2021-08-22] MEDS: INSULIN -REGULAR HUMAN 50 UNIT/0.5 ML ML SQ SCH (22:11)
[2021-08-23 04:27] LABS: Absolute Lymphocytes (CBC) 0.7 K/uL (0.7-4.9); Hematocrit 27.3 % (36.0-45.0); Lymphocytes % 21.6 % (15.3-44.8); MPV 9.2 fL (7.6-11.3); RBC Red Blood Cell Count 3.01 M/uL (3.86-4.86)
[2021-08-23 04:47] LABS: Albumin 2.8 g/dL (3.4-5.0); Bilirubin Total 0.4 mg/dL (0.2-1.0); Magnesium 1.7 mg/dL (1.8-2.4); Phosphorus 2.4 mg/dL (2.5-4.9); Potassium 3.7 mmol/L (3.5-5.1); Protein, Total 6.4 g/dL (6.4-8.2); Thyroid Stimulating Hormone 1.63 uIU/mL (0.360-3.740)
[2021-08-23] MEDS ORDERED: MAGNESIUM SULFATE 1 gm IVPB 1 GM/100 ML BAG IV ONE (05:43)
[2021-08-23] MEDS: D5 0.45 NS 1,000 ML IV SCH ×2 (06:00→18:16)
[2021-08-23 06:40] VITALS: BMI 27.0
[2021-08-23] MEDS: INSULIN -REGULAR HUMAN 50 UNIT/0.5 ML ML SQ SCH ×3 (07:30→16:30)
[2021-08-23] MEDS ORDERED: POTASSIUM PHOS IN 0.9 % NACL 15 MMOL/250 ML BAG IV ONE (09:00)
[2021-08-23] MEDS ORDERED: ENOXAPARIN 40 MG/0.4 ML SQ SCH (09:00)
[2021-08-23] MEDS ORDERED: CALCIUM CARB 500MG/VIT D 200 IU TAB PO SCH (09:00)
[2021-08-23] MEDS: ACETAMINOPHEN 500 MG TAB PO PRN ×2 (11:18→19:01)
--- NOTE | 2021-08-23 14:18 | P.DS ---
Admission Date: 08/22/21 Discharge Date: 08/23/21 Primary Care Provider: Dr. Dubon Disposition: DC HOME/HOME HEALTH CARE Discharge Condition: FAIR Reason for Admission: Hypoglycemia - Problems (1) Type 2 diabetes mellitus with hypoglycemia Current Visit: Yes Status: Acute Qualifiers: Diabetes mellitus technician terminal and repeater insulin use: with intermediate use Diabetes mellitus complication detail: without coma Qualified Code(s): E11.649 - Type 2 diabetes mellitus with hypoglycemia without coma; Z79.4 - intermodal dispatcher (current) use of insulin (2) Cirrhosis of liver Current Visit: Yes Status: Chronic Qualifiers: Hepatic cirrhosis type: unspecified hepatic cirrhosis Ascites presence: without ascites Qualified Code(s): K74.60 - Unspecified cirrhosis of liver (3) Hepatitis B Current Visit: Yes Status: Chronic Qualifiers: Viral hepatitis chronicity: chronic Hepatic coma status: without hepatic coma Hepatitis delta agent presence: without delta-agent Qualified Code(s): B18.1 - Chronic viral hepatitis B without delta-agent (4) Hepatitis C Current Visit: Yes Status: Chronic Qualifiers: Viral hepatitis chronicity: chronic Hepatic coma status: without hepatic coma Qualified Code(s): B18.2 - Chronic viral hepatitis C (5) Thrombocytopenia Current Visit: Yes Status: Chronic Brief History of Present Illness: Patient is 37 year-old female with type 2 diabetesinsulin-dependent, cirrhosis, hepatitis, splenomegaly and chronic thrombocytopenia who presented to the ED via EMS after experiencing altered mental status secondary to hypoglycemia. Per patient's daughter, patient started acting very agitated, confused, and restless this afternoon. She thought her ammonia was elevated and called EMS because she could not get her to the hospital on her own. EMS checked her sugar and it was 53. They gave her glucose in route. In the ED, blood sugar on CMP was 46 despite glucose administration. Her ammonia was 45. Other labs within normal limits. Patient's daughter states that about 2 weeks ago her PCP changed insulin dose (humulin) in addition to her glipizide. Patient states her blood sugar has been running in the 50s the past couple of days despite eating regularly. She received 100 of hydrocortisone in the ED and was started on a D5 half NS drip. Upon my assessment, patient's daughter states she is acting appropriately and patient denies feeling abnormal. She is alert and oriented x4. We will admit for observation for further treatment of hypoglycemia. Hospital Course: Patient placed on observation on the medical floor. NPH insulin and glipizide held. Patient treated with D5 half-normal saline briefly. Her blood glucose was stable during the hospital stay, mental status was at baseline. Patient tolerated her meals. Her blood glucose has been stable. Patient is deemed stable for discharge. Vital Signs/Physical Exam: Temp Pulse Resp BP Pulse Ox 98.7 F 86 22 H 107/51 L 96 08/23/21 12:00 08/23/21 12:00 08/23/21 12:00 08/23/21 12:00 08/23/21 12:00 General: Alert, In no apparent distress, Oriented x3 HEENT: Mucous membr. moist/pink Neck: JVD not distended Respiratory: Clear to auscultation bilaterally, Normal air movement Cardiovascular: No edema, Regular rate/rhythm, Normal S1 S2 Gastrointestinal: Normal bowel sounds, Soft and benign, Non-distended Musculoskeletal: No swelling Integumentary: No rashes, No cyanosis Neurological: Normal strength at 5/5 x4 extr Laboratory Data at Discharge: WBC 3.10 K/uL (4.3-10.9) L D 08/23/21 04:11 Hgb 9.1 g/dL (12.0-15.0) L 08/23/21 04:11 Hct 27.3 % (36.0-45.0) L 08/23/21 04:11 Plt Count 38 K/uL (152-406) L* D 08/23/21 04:11 PT 12.5 SECONDS (9.5-12.5) 08/22/21 17:40 INR 1.13 08/22/21 17:40 APTT 25.8 SECONDS (24.3-36.9) 08/22/21 17:40 Sodium 137 mmol/L (136-145) 08/23/21 04:11 Potassium 3.7 mmol/L (3.5-5.1) 08/23/21 04:11 BUN 12 mg/dL (7-18) 08/23/21 04:11 Creatinine 0.99 mg/dL (0.55-1.3) 08/23/21 04:11 Glucose 177 mg/dL (74-106) H 08/23/21 04:11 Phosphorus 2.4 mg/dL (2.5-4.9) L 08/23/21 04:11 Magnesium 1.7 mg/dL (1.8-2.4) L 08/23/21 04:11 Total Bilirubin 0.4 mg/dL (0.2-1.0) 08/23/21 04:11 AST 29 U/L (15-37) 08/23/21 04:11 ALT 30 U/L (12-78) 08/23/21 04:11 Alkaline Phosphatase 77 U/L (45-117) 08/23/21 04:11 Triglycerides 135 mg/dL (<150) 08/23/21 04:11 Cholesterol 143 mg/dL (<200) 08/23/21 04:11 HDL Cholesterol 31 mg/dL (40-60) L 08/23/21 04:11 Cholesterol/HDL Ratio 4.61 08/23/21 04:11 Home Medications: Biotin 1 tab PO DAILY 09/28/14 Gabapentin [Neurontin] 700 mg PO BEDTIME 09/28/14 Lactulose 10 gr PO DAILY 09/28/14 Metformin HCl [Glucophage] 1 tab PO DAILY 09/28/14 Multivitamin [Daily Multivitamin] 1 tab PO DAILY 09/28/14 Rifaximin [Xifaxan] 1 tab PO DAILY 09/28/14 Aspirin [Aspirin EC 81 MG] 81 mg PO DAILY #30 tablet. 09/29/14 Atorvastatin Calcium [Lipitor*] 10 mg PO BEDTIME #30 tab 09/29/14 Calcium Carbonate/Vitamin D3 [Oscal 500 + Vit D 200 Iu Tab*] 1 tab PO BID #60 tab 08/23/21 Insulin -Regular Human [Novolin -R*] See Protocol SQ ACHS #10 ml 08/23/21 New Medications: Insulin -Regular Human [Novolin -R*] See Protocol SQ ACHS #10 ml Calcium Carbonate/Vitamin D3 [Oscal 500 + Vit D 200 Iu Tab*] 1 tab PO BID #60 tab Diet: ADA Activity: Ad ilda Followup: NONE,NONE [Primary Care Provider] - 1 Week
[2021-08-23 17:28] VITALS: BP 119/70; TEMP 99.4
== END 2021-08-23 21:15 | disposition home health service (06) ==
LOC: ER 15:43 → ERHOLD 19:09 → 2ND 21:11
PROVIDERS: ADMIT Internal Medicine; ATTEND Internal Medicine
DX: E11.649 Type 2 diabetes mellitus with hypoglycemia without coma (principal); D69.6 Thrombocytopenia, unspecified; K74.60 Unspecified cirrhosis of liver; B18.1 Chronic viral hepatitis B without delta-agent; B18.2 Chronic viral hepatitis C; R16.1 Splenomegaly, not elsewhere classified; R60.9 Edema, unspecified; F17.200 Nicotine dependence, unspecified, uncomplicated; Z20.822 Contact with and (suspected) exposure to COVID-19; Z79.4 Long term (current) use of insulin; Z79.82 Long term (current) use of aspirin; Z79.899 Other long term (current) drug therapy; Z87.01 Personal history of pneumonia (recurrent); Z82.49 Family history of ischemic heart disease and other diseases of the circulatory system; Z83.3 Family history of diabetes mellitus; Z82.3 Family history of stroke; Z83.79 Family history of other diseases of the digestive system
CPT/HCPCS: 36415; 80048; 80053; 80061; 80076; 82140; 82947; 83540; 83735; 84100; 84439; 84443; 84466; 85025; 85610; 85730; 99285; G0378; J1720; J3475; J7799; U0003

== ENCOUNTER 2023-01-25 20:27 | Inpatient (IN) | payer BC ==
--- OUTSIDE RECORDS SUMMARY | 2023-01-25 20:31 | XMS REPORT | Clinical Summary ---
:1965 Author Organization [facility] Address [address] [place] [id number] Care Team Providers Name Role Phone Unavailable Primary Care Provider Unavailable Allergies Not on File Medications Not on file Active Problems Not on file Immunizations Name Administration Dates Next Due Feliz SARS-CoV-2 Vaccination 08/12/2020 Social History Tobacco Use Types Packs/Day Years Used Date Smoking Tobacco: Never Assessed Sex Assigned at Date Recorded Not on file Last Filed Vital Signs Not on file Plan of Treatment Not on file Results Not on fileafter 01/25/2022
--- OUTSIDE RECORDS SUMMARY | 2023-01-25 20:41 | XMS REPORT | Continuity of Care Document ---
:1965 Author Organization [facility] t Address [address] [place] [address] Care Team Providers Name Role Phone Asked, No Pcp Primary Care Physician Unavailable Phylicia Gonzalez Attending Clinician Unavailable KOMAL OWEN Attending Clinician Unavailable OLGA JIAN Attending Clinician Unavailable SP PHELPS Attending Clinician Unavailable MERE DONG Attending Clinician Unavailable LYNDSEY PARKER Attending Clinician Unavailable KHOI KWAN Attending Clinician Unavailable Khoi Kwan MD Attending Clinician Doctor Unassigned, [place] Attending Clinician Unavailable Haseeb Siddiqui MD Attending Clinician HASEEB SIDDIQUI Attending Clinician Unavailable Lauren Ortiz Attending Clinician Unavailable Michelle Medina Attending Clinician Unavailable Mason NULL, [place] Attending Clinician EVERTON CUEVAS Attending Clinician Unavailable Marcus Collins RN Attending Clinician Unavailable PAUL HARGROVE Attending Clinician Unavailable Zeynep Mcmahan DO Attending Clinician Hanny NULL, Paul Attending Clinician PERRI RODRIGUEZ Attending Clinician Unavailable Michael NULL, Perri Cotton Attending Clinician Brayden NULL, Komal Wood Attending Clinician [phone] Timothy NULL, Leonardo García Attending Clinician Raúl NULL, Kalia Royal Attending Clinician Reji NULL, Wendy Elizabeth Attending Clinician [phone] Verito NULL, Neela Smyth Attending Clinician Roseann Luna CRNA Attending Clinician ERNESTO ARIAS Attending Clinician Unavailable IRENE WATTS Attending Clinician Unavailable NAJMA COFFMAN Attending Clinician Unavailable ANN LITTLE Attending Clinician Unavailable ERIC MARTINEZ Attending Clinician Unavailable HAVEN DOLAN Attending Clinician Unavailable ROMINA ROBLES Attending Clinician Unavailable CJ OSPINA Attending Clinician Unavailable You Gordillo Attending Clinician ROSE MARIE MEDRANO Attending Clinician Unavailable URBAN QUEVEDO Attending Clinician Unavailable RACHEL SILVER Attending Clinician Unavailable ANNMARIE PRICE Attending Clinician Unavailable JAMEL HERNANDEZ Attending Clinician Unavailable BEV MATHEW Attending Clinician Unavailable DEBBIE ROSE Attending Clinician Unavailable ZAINAB MTZ Attending Clinician Unavailable IGOR MEDINA Attending Clinician Unavailable ALLAN CHOW Attending Clinician Unavailable JAMEL SCHAEFER Attending Clinician Unavailable Adela Jacobsen Attending Clinician Emily Lilly Attending Clinician [phone] Conchita Muñiz Attending Clinician Unavailable Sloane NULL, Rachel Page Attending Clinician [phone] Otis NULL, Bill Attending Clinician Osman NULL, Gunnar Hooks Attending Clinician [phone] Lawrence Ramos CRNA Attending Clinician Sheikh CHAKA, Hernando Aguirre Attending Clinician Cadence SANTOS, Yeni Lewis Attending Clinician [phone] José Luis Dunlap Attending Clinician Unavailable Serina NULL, Vandana De Oliveira Attending Clinician Oracio NULL, Zaida Attending Clinician Keith NULL, Lyndsey Attending Clinician Ajith NULL, Georgina Ferraro Attending Clinician [phone] Cinthia Neri MD Attending Clinician Odilia NULL, Asha Attending Clinician Jamel Hernandez MD Attending Clinician Adi NULL, Misael Uribe Attending Clinician [phone] Martir NULL, Maddy Browning Attending Clinician [phone] Rosa Elena Yusuf MD Attending Clinician [phone] GEORGE SPENCER Attending Clinician Unavailable Sp Phelps MD Attending Clinician VIC RASCON Attending Clinician Unavailable MARIVEL INGRAM Attending Clinician Unavailable NISHA TELLES Attending Clinician Unavailable HASEEB MARTIN Attending Clinician Unavailable ISAAC CARTAGENA Attending Clinician Unavailable STEVEN HURTADO Attending Clinician Unavailable KOMAL OWEN Admitting Clinician Unavailable OLGA JAIN Admitting Clinician Unavailable SP PHELPS Admitting Clinician Unavailable MERE DONG Admitting Clinician Unavailable LYNDSEY PARKER Admitting Clinician Unavailable KHOI KWAN Admitting Clinician Unavailable PAUL HARGROVE Admitting Clinician Unavailable Paul Hargrove MD Admitting Clinician NAJMA COFFMAN Admitting Clinician Unavailable HAVEN DOLAN Admitting Clinician Unavailable GREGORIO LOVE Admitting Clinician Unavailable GEORGINA THOMPSON Admitting Clinician Unavailable IGOR MEDINA MURALINJOSE F Admitting Clinician Unavailable KIM BATEMAN Admitting Clinician Unavailable BILL ROA Admitting Clinician Unavailable GEORGE SPENCER Admitting Clinician Unavailable JAC RASCON Admitting Clinician Unavailable MARIVEL INGRAM Admitting Clinician Unavailable HASEEB MARTIN Admitting Clinician Unavailable ISAAC CARTAGENA Admitting Clinician Unavailable STEVEN HURTADO Admitting Clinician Unavailable Payers Payer Name Policy Type Policy Number Effective Date Expiration Date S nader BC MEDICARE [id number] 2021 ADVANTAGE 00:00:00 [employer] MEDICARE [id number] 2020 ADV 00:00:00 [employer] MEDICARE [id number] 2020 00:00:00 MEDICAID SSI PENDING 2019 PENDING 00:00:00 [facility] [id number] 2021 MEDICARE ADV 00:00:00 [facility] 111 [id number] 2021 Common S pirit Advantage O 00:00:00 - [facility] MEDICARE A B [id number] 2020 00:00:00 MEDICAID 365 [id number] 2019 2019 VENDOR 00:00:00 00:00:00 Problems Condition Condition Condition Status Onset Resolution Last Treating Co mments Source Name Details Category Date Date Treatment Clinician Date Fall, Fall, Disease Active Univers initial initial 02-07 [place] Closed Closed Disease Active Univers fracture fracture 02-07 [place] of 00 Medical lumbar lumbar Branch spine, spine, sequela sequela Abdomen Abdomen Disease Active 2022-[address] [facility] firm on firm on 01-28 [facility] palpation palpation 00:00: [facility] 00 Center Screening Screening Disease Active [facility] for colon for colon 8 [facility] cancer cancer 00:00: Medical 00 [place] Abnormal Abnormal Disease Active [facility] liver liver 8 [facility] diagnostic diagnostic 00:00: Ia dical imaging imaging 00 Center Common Common Disease Active [facility] bile duct bile duct 6 [facility] stone stone 00:00: Medical Center Hepatitis Hepatitis Disease Active [facility] C virus C virus 5-10 [facility] infection infection 00:00: [facility] cured cured 00 Center after after antiviral antiviral drug drug therapy therapy Hematemesi Hematemesi Disease Active [facility] s with s with 4-07 [facility] nausea nausea 00:00: Medical 00 [place] Flank pain Flank pain Disease Active [facility] 4-06 [facility] 00:00: Medical 00 [place] Decompensa Decompensa Disease Recurre 2020-[address] gaby HCV gaby HCV nce 0-08 [facility] cirrhosis cirrhosis 00:00: [facility] 00 [place] Thrombocyt Thrombocyt Disease Recurre 2020-[address] openia openia nce 0-06 [facility] 00:00: Medical 00 [place] Rectal Rectal Disease Active 2020-[address] bleeding bleeding 0-06 [facility] 00:00: Medical 00 Center Portal Portal Disease Recurre [facility] hypertensi hypertensi nce 7-29 [facility] on on 00:00: Medical 00 Center Secondary Secondary Disease Recurre [facility] esophageal esophageal nce 7-29 [facility] varices varices 00:00: Medical without without 00 Center bleeding bleeding GI bleed GI bleed Disease Active [facility] 00:[facility]: Medical 00 Center Hepatitis Hepatitis Disease Active [facility] C 7-23 [facility] 00[facility]: Medical 00 Center Anemia Anemia Disease Active [facility] 7[facility]23 [facility] 00:[facility] Medical 00 Center Hematochez Hematochez Disease Active [facility] ia ia 7-22 [facility] 00:[facility]: Medical 00 Center Acute Acute Disease Active [facility] blood loss blood loss 7-11 [facility]es anemia anemia 00:00: Medical 00 Center Hepatic Hepatic Disease Recurre [facility] encephalop encephalop nce 12-10 [facility]es athy athy 00:00: Medical 00 Center NATACHA (acute NATACHA (acute Disease Recurre [facility] kidney kidney gae 12-10 [facility] injury) injury) 00:00: Medical 00 Center Gastrointe Gastrointe Disease Active C [facility] stinal stinal 12-09 [facility] hemorrhage hemorrhage 00:00: Me dical with with 00 Center hematemesi hematemesi s s Portal Portal Disease Active Overview: Univer s hypertensi hypertensi 12-04 Formattin ity of on on 00:00: g of this [place] 00 note Medical might be Branch different from the original. Added automatic ally from request for surgery [id number] Esophageal Esophageal Disease Active Overview : Univers varices varices 12-04 Formattin ity o f without without 00:00: g of this [place] bleeding, bleeding, 00 note Medi iglesia unspecifie unspecifie might be Branch d d different esophageal esophageal from the varices varices original. type type Added automatic ally from request for surgery [id number] Encounter Encounter Disease Active Overview: Univers for for 12-04 Formattin ity of screening screening 00:00: [place] other for other 00 note Medi iglesia viral viral might be Branch diseases diseases different from the original. Added automatic ally from request for surgery [id number] Other Other Disease Active Overview: Univer s abnormal abnormal 12-04 Formattin ity of tumor tumor 00:00: g of this [place] markers markers 00 note Medical might be Branch different from the original. 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 OPID [place] Acute Acute Disease Active Univers hepatic hepatic 6-04 ity of encephalop encephalop [place] at[place] Medical [place] Anxiety Anxiety Disease Active Univers 5-29 ity of 00:00: Medical Branch Pancreatic Pancreatic Disease Active U nivers insufficie insufficie 5-29 it y of ncy ncy 00:00: Medical Branch Hyperlipid Hyperlipid Disease Active U nivers emia emia 5-29 ity of associated associated [place] with type with type 00 Medi iglesia 2 diabetes 2 diabetes Br anch mellitus mellitus Hyperlipid Hyperlipid Disease Active U nivers emia emia 10-28 ity of associated associated [place] with type with type 00 Medi iglesia 2 diabetes 2 diabetes Br anch mellitus mellitus R10.9 - R10.9 - Diagnosis Active 2020-10-12 Memoria UNSPECIFIE UNSPECIFIE 3-31 15:27:00 l D D 00:01: García ABDOMINAL ABDOMINAL 00 PAIN M54.5 PAIN M54.5 Active 08/30/2020 OPILashell [place] LOW BACK LOW BACK Diagnosis Active 2020-10-03 Memoria PAIN PAIN 3-30 15:31:00 l Active 08:00: García 08/29/2020 00 SMR [facility] Periodonta Periodonta Disease Active 2019-0 U nivers l abscess l abscess 2-16 ity of 00:00: Medical Branch Hypokalemi Hypokalemi Disease Active 2019-0 U nivers a a 1-30 ity of 00:00: Medical Branch Lethargy Lethargy Disease Active 2019- Unive rs 1-29 ity of 00:00: Medical Branch Hematochez Hematochez Disease Active U nivers ia ia 9-15 ity of 00:00: Medical Branch Lower GI Lower GI Disease Active Overview: Un connor bleeding bleeding 9-15 Formattin ity of 00:00: g of this 00 note Medical might be Branch different from the original. Added automatic ally from request for surgery [id number] Gastrointe Gastrointe Disease Active Overview : Univers stinal stinal 9-15 Formattin ity of hemorrhage hemorrhage 00:00: g of this [place] , , 00 note Medical unspecifie unspecifie might be Branch d d different gastrointe gastrointe from the stinal stinal original. hemorrhage hemorrhage Added type type automatic ally from request for surgery [id number] Cirrhosis, Cirrhosis, Disease Active U nivers non-alcoho non-alcoho 3-12 it y of lic lic 00:00: [place] [facility] Altered Altered Disease Active Univers mental mental 6-06 ity of state state 00:00: [place] 00 Medical Branch Intractabl Intractabl Disease Active U nivers e nausea e nausea 1-20 ity of and and 00:00: [place] vomiting vomiting 00 Medica l Branch Nausea and Nausea and Disease Active Overview : Univers vomiting, vomiting, 1-20 Formattin i ty of intractabi intractabi 00:00: g of this [place] lity of lity of 00 note Medical vomiting vomiting might be Bran ch not not different specified, specified, from the unspecifie unspecifie original. d vomiting d vomiting Added type type automatic ally from request for surgery [id number] Hyperglyce Hyperglyce Disease Active U nivers socorro socorro 8-08 ity of 00:00: [place] 00 [facility] Branch Abdominal Abdominal Disease Active Uni vers pain pain 5-31 ity of 00:00: [place] 00 [facility] Branch Gallstone Gallstone Disease Active Uni vers pancreatit pancreatit 4-16 it y of is is 00:00: [place] 00 [facility] Branch Decompensa Decompensa Disease Active 2015-06 U anshu gaby gaby 0-29 ity of hepatic hepatic 00:00: [place] cirrhosis cirrhosis 00 [facility] Branch Type 2 Type 2 Disease Active 2015-06 Univers diabetes diabetes 0-06 ity of mellitus mellitus 00:00: [place] without without 00 Medical complicati complicati Br anch on on Chronic Chronic Disease Active 2015-06 Univers abdominal abdominal 0-06 ity of pain pain 00:00: [place] 00 Medical Branch 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 0-06 ity of 00:00: [place] 00 [facility] Branch Hepatitis Hepatitis Disease Active Uni vers C C 8-24 ity of 00:00: [place] 00 Medical Branch Hepatosple Hepatosple Disease Active U nivers nomegaly nomegaly 8 ity of 00:: Medical Branch Thrombocyt Thrombocyt Disease Active U nivers openia openia 824 ity of 00:00: [place] [facility] Cirrhosis Cirrhosis Disease Active [facility] 01-13 [facility] 00:00: Hospita 00 l Hepatitis Hepatitis Disease Active [facility] B B 01-13 st 00:00: Hospita 00 l Hepatitis Hepatitis Disease Active [facility] C C 01-13 st 00:00: Hospita 00 l Right Right Disease Active Methodi lower lower 01-11 st quadrant quadrant 00:00: Hospit a abdominal abdominal 00 l pain pain Type 2 Type 2 Disease Active [facility] diabetes diabetes 01-11 st mellitus mellitus 00:00: Hospit a without without 00 l complicati complicati on on [id number] Thrombocyt Problem Co mmon openia Spirit - [facility] [id number] Anemia in Problem Com mon other Spirit chronic - CHI diseases [facility] [id number] Mixed Problem Common hyperlipid Spirit emia - [facility] [id number] Esophageal Problem Com mon varices Spirit determined - [facility]I by [facility] [id number] Type 2 Problem Commo n 9102 diabetes Spirit mellitus - CHI with other [facility] kidney Medical complicati Center on Chronic Chronic Problem Common viral viral Spirit hepatitis hepatitis - CH I B without B without delta-agen delta [facility] t agent and Medical without Center coma [id number] Major Problem Common depression Spirit , - CHI recurrent, [facility] Tobacco Smokes 1 Problem Common user pack of Spirit cigarettes - CHI per day [facility] [id number] Other Problem Common chronic Spirit pain - [facility] Transient Transient Problem Resolve 2021-08-12 Memoria ischemic ischemic d 22:06:52 l attack attack García (disorder) (disorder) Resolved Problem 08/12/2021 Medical Group,Misc her Neuro, OPID Alma Rosa R41.3 - R41.3 - Diagnosis Active 2021-08-02 Memoria OTHER OTHER 11:26:00 l AMNESIA AMNESIA García K74.60 - K74.60 - UNSPECIFI UNSPECIFI Active [facility] [place] Knee pain Knee pain Problem Active 2021-08-12 Memoria (finding) (finding) 22:06:52 l Active [facility] Problem 08/12/2021 Medical Group,[facility] her Neuro, OPID [place] Recurrent Recurrent Problem Active 2021-08-12 Memoria falls falls 22:06:52 l (finding) (finding) Herm omid Active Problem 08/12/2021 Medical [facility] her Neuro, [facility] [place] Amnesia Amnesia Problem Active 2021-08-12 M emoria (finding) (finding) 22:06:52 l Active García Problem 08/12/2021 [facility] her Neuro, OP[facility] [place] Chronic Chronic Problem Active 2021-08-12 Me moria hepatitis hepatitis 22:06:52 l C C [facility] (disorder) (disorder) Active Problem 08/12/2021 [facility] her Neuro, [facility] [place] Headache Headache Problem Active 2021-08-12 Memoria (finding) (finding) 22:06:52 l Active [facility] Problem 08/12/2021 Medical [facility] her Neuro, [facility] [place] Low back Low back Problem Active 2021-08-12 Memoria pain pain 22:06:52 l (disorder) (disorder) He rmann Active Problem 08/12/2021 [facility] her Neuro, [facility] [place] Myoclonus Myoclonus Problem Active 2021-08-12 Memoria (finding) (finding) 22:06:52 l Active [facility] Problem 08/12/2021 Medical [facility] her Neuro, OPID [place] Compressio Compressi Problem Active 2021-08-12 Memoria n fracture on 22:06:52 l of fracture García thoracic of spine thoracic (disorder) spine (disorder) Active Problem 08/12/2021 [facility] her Neuro, [facility] [place] Type II Type II Problem Active 2021-08-12 Me moria diabetes diabetes 22:06:52 l mellitus mellitus Abdi n uncontroll uncontroll ed ed (finding) (finding) Active Problem 08/12/2021 [facility] her Neuro, OPID [place] Diabetes Diabetes Disease Recurre [facility] mellitus, mellitus, nce Lu s type 2 type 2 Medical Center Hepatitis Hepatitis Disease Active [facility] B core B core [facility] antibody antibody Medica l positive positive Center Smoking Smoking Disease Active [facility] Esophageal Esophageal Disease Active U nivers reflux reflux [facility] Diabetes Diabetes Disease Active Unive rs mellitus mellitus [facility] Depression Depression [facility] Marijuana Marijuana Disease Active Uni [facility] Allergies, Adverse Reactions, Alerts Allergy Allergy Status Severity Reaction(s) Onset Inactive Treating Comm ents Source Name Type Date Date Clinician NO KNOWN Allergy Active [facility] ALLERGIE [place] [facility] NO KNOWN Drug Active Univers ALLERGIE Class [facility] Family History Family Member Diagnosis Comments Start Date Stop Date Source Natural father No Known Problem [facility] Natural father Heart disease [facility] Natural mother No Known Problem [facility] Natural mother Diabetes [facility] Natural mother Pancreatitis [facility] Natural sister Diabetes [facility] Social History Social Habit Start Date Stop Date Quantity Comments Source History of Tobacco Current Smoker Co mmon Spirit - Use [facility] Gender identity [facility] Sexual orientation [facility] History [facility] Medical Ce nter Lived History [facility] o f Alcohol Frequency [facility] History [facility] o f Alcohol Std Drinks Formerly [facility] History [facility] o f Alcohol Binge [facility] Exposure to 2022-08-19 2022-08-29 Not sure University of SARS-CoV-2 (event) 00:00:00 11:52:00 [facility]ly [facility] Alcohol intake 2022-06-29 2022-06-29 Ex-drinker [facility] (finding) Medical Center History [facility] 2022-01-29 2022-01-29 2 [facility] Transport Med 00:00:00 00:00:[address] History [facility] 2022-01-29 2022-01-29 2 [facility] Unable to 00:00:00 00:00:00 Medical Center Pay History [facility] 2022-01-29 2022-01-29 2 [facility] [place] [facility] Homeless 00:00:00 00:00:00 Medical Center Last Year Tobacco use and 2021-07-03 2021-07-03 Smokeless tobacco [facility] [place] exposure 00:00:00 00:00:00 non-user [facility] Tobacco Comment 2021-07-03 2021-07-03 She states that [facility] [place] 00:00:00 00:00:00 she smokes 4 [facility] er cigarettes daily Education 2020-11-03 2020-11-[address] [place] [address] 00:00:00 00:00:00 [facility] Social History 2020-08-23 2020-08-23 [facility] [place] [facility] 20:12:29 20:12:29 Alcohol Comment 2016-01-24 2016-01-24 former Universit y of 00:00:00 00:00:00 [facility] Cigarettes smoked 2016-01-12 2016-01-[address] current (pack per 00:00:00 00:00:00 Hospita l day) - Reported Cigarette 2016-01-12 2016-01-12 Religious pack-years 00:00:00 00:00:00 Hospital History of Social 2016-01-11 2016-01-[address] function 00:00:00 00:00:00 Hospital Sex Ass[birth year] At [birth year] Universit y of 00:00:00 00:00:00 [place] [facility] Smoking Status Start Date Stop Date Source Smokes tobacco daily 2021-07-03 00:00:00 [facility] Medications Ordered Filled Start Stop Current Ordering Indication Dosage Frequency Signature Comments Components Source Medication Medication Date Date Medication? Clinician (SIG) Name Name NaCl 0.9% 2022- No 1000mL at 999 Uni vers (NS) bolus 3-30 03-30 mL/hr, ity of infusion 21:15: 21:36 1,000 mL, Shaun as 1,000 mL 00 :00 IV Medical Infusion, Branch ONCE, 1 dose, On Mirella 08/29/22 at 1615, STAT ondansetron 2022- No 4mg 4 mg, Slow Univers (ZOFRAN 3-30 03-30 IV Push, ity of (PF)) 18:30: 18:25 ONCE, 1 [place] injection 4 00 :00 dose, On iglesia mg Mirella Branch 08/29/22 at 1330, LILLI NaCl 0.9% 0 2022- No 1000mL at 999 Uni vers (NS) bolus 3-30 03-30 mL/hr, ity of infusion 18:30: 20:41 1,000 mL, Shaun as 1,000 mL 00 :00 IV Medical Infusion, Branch ONCE, 1 dose, On Mirella 08/29/22 at 1330, STAT ondansetron 0 Yes [id number] 4mg Take 1 Univers 4 mg 3-30 tablet by ity of disintegrat 00:00: mouth [place] ing tablet 00 every 4 Medica l (four) Branch hours as needed for Nausea and Vomiting (N/V). polyethylen 0 Yes [id number] 1{packe Take 1 Univers e glycol 3-30 t} Packet by ity of 3350 00:00: mouth [place] (MIRALAX) 00 every 24 Medica l 17 gram (twenty-fo Branch powder ur) hours as needed for Constipati on. magnesium 0 2022- No [id number] 300mL Take 300 Univers citrate 3-30 03-31 mL by ity of solution 00:00: 04:59 mouth [place] 00 :00 now for 1 Medical dose. Branch magnesium 0 Yes [id number] 400mg Take 400 Univers oxide 420 9-11 mg by ity of mg Tab 00:00: mouth [place] 00 daily. Medical Branch magnesium 2021-0 Yes [id number] 400mg Take 400 Univers oxide 420 9-11 mg by ity of mg Tab 00:00: mouth [place] 00 daily. Medical Branch magnesium 2021-0 Yes [id number] 400mg Take 400 Univers oxide 420 9-11 mg by ity of mg Tab 00:00: mouth [place] 00 daily. Medical Branch omeprazole 2021-0 Yes 20mg Take 20 mg U nivers 20 mg 9-10 by mouth ity of capsule 17:29: [place]. [place] 05 [place] traMADoL 50 2021-0 Yes 50mg Take 50 mg Univers mg tablet 9-10 by mouth ity of 17:29: as needed. [place] 05 Medical Branch methocarbam 2021-0 Yes 750mg Take 750 U nivers oL 750 mg 9-10 mg by ity of tablet 17:29: mouth as [place] 05 needed. Medical Branch lactulose 0 Yes 10g Take 10 g Uni vers 10 gram/15 9-10 by mouth. ity of mL solution 17:29: [place] [address] Medical Branch omeprazole 0 Yes 20mg Take 20 mg U nivers 20 mg 9-10 by mouth ity of capsule 17:29: as needed. [address] Branch traMADoL 50 0 Yes 50mg Take 50 mg [facility] mg tablet 9-10 by mouth ity of 17:29: as needed. [place] [address] Medical Branch methocarbam 0 Yes 750mg Take 750 U nivers oL 750 mg 9-10 mg by ity of tablet 17:29: mouth as [place] [address] needed. Medical Branch lactulose 0 Yes 10g Take 10 g Uni vers 10 gram/15 9-10 by mouth. ity of mL solution 17:29: [address] Branch omeprazole 0 Yes 20mg Take 20 mg U nivers 20 mg 9-10 by mouth ity of capsule 17:29: as needed. [address] Branch traMADoL 50 0 Yes 50mg Take 50 mg [facility] mg tablet 9-10 by mouth ity of 17:29: as needed. [address] Branch methocarbam 0 Yes 750mg Take 750 U nivers oL 750 mg 9-10 mg by ity of tablet 17:29: mouth as [place] [address] needed. Medical Branch lactulose 0 Yes 10g Take 10 g Uni vers 10 gram/15 9-10 by mouth. ity of mL solution 17:29: [address] Branch baclofen 5 2021-0 Yes [id number] 5mg Take 1 [facility] mg tablet 9-10 tablet by ity o f 00:00: mouth in [place] 00 the Medical morning Branch and 1 tablet at noon and 1 tablet in the evening. gabapentin 2021-0 Yes [id number] 300mg Take 1 [facility] 300 mg 9-10 capsule by ity of capsule 00:00: mouth [place] 00 every 8 Medical (eight) Branch hours. lidocaine 5 2021-0 Yes [id number] 1{patch Apply 1 [facility] % (700 9-10 } Patch to ity of mg/patch) 00:00: area(s) in [place] patch 00 the Medical morning. Branch 12 hours on, 12 hours off baclofen 5 2021-0 Yes [id number] 5mg Take 1 [facility] mg tablet 9-10 tablet by ity o f 00:00: mouth in [place] 00 the Medical morning Branch and 1 tablet at noon and 1 tablet in the evening. gabapentin 2-0 Yes [id number] 300mg Take 1 [facility] 300 mg 9-10 capsule by ity of capsule 00:00: mouth [place] 00 every 8 Medical (eight) Branch hours. lidocaine 5 2021-0 Yes [id number] 1{patch Apply 1 [facility] % (700 9-10 } Patch to ity of mg/patch) 00:00: area(s) in [place] patch 00 the Medical morning. Branch 12 hours on, 12 hours off baclofen 5 2021-0 Yes [id number] 5mg Take 1 [facility] mg tablet 9-10 tablet by ity o f 00:00: mouth in [place] 00 the Medical morning Branch and 1 tablet at noon and 1 tablet in the evening. gabapentin 2021-0 Yes [id number] 300mg Take 1 [facility] 300 mg 9-10 capsule by ity of capsule 00:00: mouth [place] [address] every 8 Medical (eight) Branch hours. lidocaine 5 2021-0 Yes [id number] 1{patch Apply 1 [facility] % (700 9-10 } Patch to ity of mg/patch) 00:00: area(s) in [place] patch 00 the Medical morning. Branch 12 hours on, 12 hours off lactulose 2021-0 Yes 20g Q.[id number] Take [address] [facility] (CHRONULAC) 02-01 [id number] by mouth 3 [facility] 10 gram/15 11:14: 3D (three) Medi iglesia mL (15 mL) 18 times Center solution daily. gabapentin 2021-0 Yes 300mg Q.[id number] Take [address] [facility] (NEURONTIN) 02-01 [id number] mg by L ukes 300 MG 11:14: 3D mouth 3 Medical capsule 18 (three) Center times daily. hydrOXYzine 2-0 Yes 25mg Take [address] [facility] (ATARAX) 25 02 by mouth 3 Ning kes MG tablet 11:14: (three) Medic al 18 times Center daily as needed for Itching. traMADoL 2021-0 Yes 50mg Take [address] [facility] (ULTRAM) 50 9-02 by mouth Luke [facility] mg tablet 11:14: every 6 Medic al 18 (six) Center hours as needed for Pain. methocarbam Yes 750mg Take [address] oL 9-02 mg by [facility] (Robaxin-75 11:14: mouth 2 Med ical 0) 750 MG 18 (two) Center tablet times daily as needed (Spasms). diphenhydrA Yes 25mg Take [address] [facility] MINE 9-02 by mouth [facility] (BENADRYL) 11:14: every Medica l 25 mg 18 night as Center tablet needed for Sleep. cholecalcif Yes 2000U QD Take 2,[address] [facility], 9-02 Units by [facility] vitamin D3, 11:14: mouth Medic al 2,000 unit 18 daily. Center Tab hydrocortis 0 2022- No Q.5D Place [facility] one 9- 09-12 rectally 2 [facility] (ANUSOL-HC) 00:00: 23:59 (two) Medi iglesia 2.5 % 00 :00 times Center rectal daily for cream 10 days. lisinopriL Yes 5mg QD Take [address] [facility] [address] [facility] (PRINIVIL,Z 6-16 by mouth Luke s ESTRIL) 5 00:00: daily. Medica l MG tablet 00 Center Cephalexin Cephalexin 2021- No 1{capsu BID Cephalexin 500 MG 500 MG 10-12 05-18 le} 500 MG 00:00: 00:00 00 :00 propranoloL 2021- Yes 20mg Q.5D Take [address] [facility] (INDERAL) 2-16 by mouth 2 Luke [facility] 20 MG 00:00: (two) Medical tablet 00 times Center daily. pantoprazol Yes 40mg Q.5D Take [address] [facility] e 2-16 by mouth 2 [facility] (PROTONIX) 00:00: (two) Medica l 40 MG 00 times Center tablet daily. glipiZIDE glipiZIDE 0 No 1{table BID glipiZIDE ER 10 MG ER 10 MG 2-16 t_with_ ER 10 MG 00:00: breakfa 00 st} traMADol traMADol 0 No 1{table QD traMADol HCl 50 MG HCl 50 MG 2-16 t_as_ne HCl 50 MG 00:00: eded} 00 HumuLIN HumuLIN No BID HumuLIN 70/30 70/30 2-16 70/30 KwikPen KwikPen 00:00: KwikPen (70-30) 100 (70-30) 100 00 (70-30) UNIT/ML UNIT/ML 100 UNIT/ML glipiZIDE glipiZIDE No 1{table BID glipiZIDE ER 10 MG ER 10 MG -16 t_with_ ER 10 MG 00:00: breakfa 00 st} traMADol traMADol No 1{table QD traMADol HCl 50 MG HCl 50 MG 2-16 t_as_ne HCl 50 MG 00:00: eded} 00 HumuLIN HumuLIN No BID HumuLIN 70/30 70/30 2-16 70/30 KwikPen KwikPen 00:00: KwikPen (70-30) 100 (70-30) 100 00 (70-30) UNIT/ML UNIT/ML 100 UNIT/ML rifAXIMin Yes Decompensat 550mg Q.5D Take [address] [facility] 550 mg Tab 2-01 ed hepatic tablet L ukes 00:00: cirrhosis (550 mg Medic al 00 (HCC) total) by Center mouth 2 (two) times daily. FLUoxetine Yes 40mg QD Take [address] (PROzac) 40 1-16 by mouth Luke s MG capsule 00:00: daily . Medi iglesia 00 Center hydrocortis 2020-06 Yes 1{appli Place [address] [facility] one 1-13 cation} applicatio Donna (Pro[employer] 00:00: n rectally Medical ) 1 % crpe 00 2 (two) Center rectal times cream daily as needed (for pain from hemorrhoid s). Methocarbam Yes 750 mg = 1 Memoria ol 750 MG 8-23 tab, PO, l Oral Tablet 21:56: BID, PRN He v[place]ey [Robaxin] 00 Spasms, X 30 day, # 60 tab, 2 Refill(s), Pharmacy: [facility], 147.32, cm, 12/27/20 11:32:00 CDT, Height, 54.545, kg, 12/27/20 11:32:00 CDT, Weight Methocarbam Yes 750 mg = 1 Memoria ol 750 MG 8-23 tab, PO, l Oral Tablet 21:56: BID, PRN Delvis winters [Robaxin] 00 Spasms, X 30 day, # 60 tab, 2 Refill(s), Pharmacy: [facility], 147.32, cm, 12/27/20 11:32:00 CDT, Height, 54.545, kg, 12/27/20 11:32:00 CDT, Weight Hydroxyzine Yes 25 mg = 1 M emoria Hydrochlori 8-23 cap, PO, l de 25 MG 21:55: TID, PRN Corine nn Oral 00 Itching, X Capsule 10 day, # 30 cap, 2 Refill(s), Pharmacy: [facility], 147.32, cm, 12/27/20 11:32:00 CDT, Height, 54.545, kg, 12/27/20 11:32:00 CDT, Weight Hydroxyzine Yes 25 mg = 1 M emoria Hydrochlori 8-23 cap, PO, l de 25 MG 21:55: TID, PRN Corine nn Oral 00 Itching, X Capsule 10 day, # 30 cap, 2 Refill(s), Pharmacy: [facility], 147.32, cm, 12/27/20 11:32:00 CDT, Height, 54.545, kg, 12/27/20 11:32:00 CDT, Weight rifAXIMin Yes 550mg Q.5D Take 1 [facility] mg Tab 8-09 tablet [facility] 00:00: (550 mg Medical 00 total) by Center mouth 2 (two) times daily. FLUOXETINE Yes [id number] Take 2 U nivers 20 mg 7-28 tablets by ity of tablet 00:00: mouth once [place] [address] daily Medical Branch FLUOXETINE Yes [id number] Take 2 U nivers 20 mg 7-28 tablets by ity of tablet 00:00: mouth once [place] [address] daily Medical Branch FLUOXETINE Yes [id number] Take 2 U nivers 20 mg 7-28 tablets by ity of tablet 00:00: mouth once [place] [address] daily Medical Branch simvastatin 2021-0 Yes 20mg QD Take [address] [facility] (ZOCOR) 20 7-25 by mouth [facility] MG tablet 14:17: nightly. Medi iglesia 07 Center metFORMIN 2020-0 Yes 1000mg Take 1,[address] [facility] (GLUCOPHAGE 7-25 mg by [facility] ) 1000 MG 14:17: mouth 2 Medic al tablet 07 (two) Center times daily with breakfast and dinner. lactulose 0 Yes 10g Q.[id number] Take [address] [facility] (CHRONULAC) 7-25 [id number] by mouth 3 [facility] 10 gram/15 14:17: 3D (three) Medi iglesia mL (15 mL) 07 times Center solution daily. gabapentin 0 Yes 300mg Q.[id number] Take [address] [facility] [address] (NEURONTIN) 7-25 [id number] mg by L ukes 300 MG 14:17: 3D mouth 3 Medical capsule 07 (three) Center times daily. propranoloL Yes 20mg Q.5D Take [address] [facility] (INDERAL) 7-25 by mouth 2 Luke s 20 MG 14:17: (two) Medical tablet 07 times Center daily. FLUoxetine Yes 40mg QD Take [address] (PROzac) 40 7-25 by mouth Luke s MG capsule 14:17: daily . Medi iglesia 07 [place] diphenhydrA 0 Yes 25mg Q.[id number] Take [address] [facility] MINE 7-25 [id number] by mouth 3 [place] es (BENADRYL) 14:17: 3D (three) Medi iglesia 25 mg 07 times Center capsule daily. buPROPion 0 Yes 100mg Q.5D Take [address] [facility] (WELLBUTRIN 7-25 mg by [facility] ) 100 MG 14:17: mouth 2 Medica l tablet 07 (two) Center times daily. promethazin 2020-0 Yes 25mg Take [address] [facility] e 7-25 by mouth [facility] (PHENERGAN) 14:17: every 6 Med ical 25 MG 07 (six) Center tablet hours as needed for Nausea. esomeprazol 2020-0 2021- No 40mg QD Take [address] [facility] e (NexIUM) 7-25 07-25 by mouth Luke s 40 MG 08:30: 00:00 daily. Medical capsule 42 :00 Center esomeprazol Yes 40mg QD Take [address] [facility] (NexIUM) - capsule [facility] 40 MG 00:00: (40 mg Medical capsule 00 total) by Center mouth daily. traMADoL 2020- No 50mg Take [address] [facility] (ULTRAM) 50 - 08-04 tablet (50 L ukes mg tablet 00:00: 23:59 mg total) Me dical 00 :00 by mouth Center every 6 (six) hours as needed for Pain for up to 10 days. Max Daily Amount: 200 mg rifAXIMin 2020- No 550mg Q.5D Take [address] [facility] 550 mg Tab 12-2109 tablet [facility] 00:00: 00:00 (550 mg Medical 00 :00 total) by Center mouth 2 (two) times daily. cefdinir 2020- No 300mg Q.5D Take 1 [facility] (OMNICEF) 12-14 capsule [facility] 300 MG 00:00: 23:59 (300 mg Medical capsule 00 :00 total) by Center mouth 2 (two) times daily for 2 days Antibiotic s to prevent infection. furosemide 2020- No 40mg Q.5D Take [address] [facility] (LASIX) 40 12-13 by mouth 2 Ning kes MG tablet 14:30: 00:00 (two) Medica l 08 :00 times Center daily. spironolact 2020- No 50mg QD Take [address] [facility] one 12-13 by mouth [facility] (ALDACTONE) 14:30: 00:00 daily. Med ical 50 MG 08 :00 Center tablet bisacodyL 2020- No 5mg Take [address] [facility] [address] [facility] (DULCOLAX) 12-13-14 by mouth 2 Ning kes 5 mg EC 14:26: 00:00 (two) Medical tablet 10 :00 times Center daily as needed for Constipati on. traMADoL 2020- No 50mg Take [address] [facility] (ULTRAM) 50 -13 12-25 tablet (50 L ukes mg tablet 00:00: 00:00 mg total) Me dical 00 :00 by mouth Center every 6 (six) hours as needed for Pain. Max Daily Amount: 200 mg rifAXIMin 2020-0 2021- No 550mg Q.5D Take [address] [facility] 550 mg Tab 714 -22 tablet [facility] 00:00: 00:00 (550 mg Medical 00 :00 total) by Center mouth 2 (two) times daily To prevent confusion sec to liver disease. SIMVASTATIN 2020-0 Yes [id number] 20mg TAKE 1 [facility] 20 mg 6-22 2 TABLET BY ity of tablet 00:00: MOUTH AT [place] [address] BEDTIME Medical Branch SIMVASTATIN 2020-0 Yes [id number] 20mg TAKE 1 [facility] 20 mg 6-22 TABLET BY ity of tablet 00:00: MOUTH AT [place] BEDTIME Medical Branch SIMVASTATIN 2020-0 Yes [id number] 20mg TAKE 1 [facility] 20 mg 6-22 TABLET BY ity of tablet 00:00: [address] [facility] ibuprofen 2020-0 Yes [id number] 600mg Take 1 [facility] 600 mg 6-20 tablet by ity of tablet 00:00: mouth [place] 00 every 6 Medical (six) Branch hours as needed for Pain (scale 4-6). diazePAM 0 Yes [id number] 5mg Take 1 [facility] (VALIUM) 5 6-20 tablet by ity of mg tablet 00:00: mouth [place] (three) Medical times Branch daily as needed for Muscle Spasms. ibuprofen 2020-0 Yes [id number] 600mg Take 1 [facility] 600 mg 6-20 tablet by ity of tablet 00:00: mouth [place] 00 every 6 Medical (six) Branch hours as needed for Pain (scale 4-6). diazePAM 2020-0 Yes [id number] 5mg Take 1 [facility] (VALIUM) 5 6-20 tablet by ity of mg tablet 00:00: mouth 3 [place] (three) Medical times Branch daily as needed for Muscle Spasms. ibuprofen 2020-0 Yes [id number] 600mg Take 1 [facility] 600 mg 6-20 tablet by ity of tablet 00:00: mouth [place] 00 every 6 Medical (six) Branch hours as needed for Pain (scale 4-6). diazePAM 2020-0 Yes [id number] 5mg Take 1 [facility] (VALIUM) 5 6-20 tablet by ity of mg tablet 00:00: mouth 3 [place] (three) Medical times Branch daily as needed for Muscle Spasms. rifaximin 0 Yes 0 Memoria 550 MG Oral 6-16 Refill(s) l Tablet 15:08: García [XIFAXAN] 00 rifaximin 0 Yes 0 Memoria 550 MG Oral 6-16 Refill(s) l Tablet 15:08: [facility] [XIFAXAN] metFORMIN [address] [facility] (GLUCOPHAGE 5-29 [facility] ) 1000 MG 00:00: Medical tablet 00 Center hydrOXYzine 0 Yes [id number] 50mg Take 1 Univ ers 50 mg 5-29 capsule by ity of capsule 00:00: mouth as [place] 00 needed for Medical Other Branch (nausea). Indication s: nausea spironolact 0 Yes [id number] 50mg Take 1 [facility] one 50 mg 5-29 tablet by ity o f tablet 00:00: mouth [place] 00 daily. Medical Branch metFORMIN 2020-0 Yes [id number] 1000mg Take 1 [facility] 1,000 mg 5-29 tablet by ity of tablet 00:00: mouth 2 (two) Medical times Branch daily with meals. esomeprazol 0 Yes [id number] 40mg Take 1 [facility] e 40 mg 5-29 capsule by ity of capsule 00:00: mouth [place] 00 daily with Medical breakfast. Branch hydrOXYzine 0 Yes [id number] 50mg Take 1 Univ ers 50 mg 5-29 capsule by ity of capsule 00:00: mouth as [place] 00 needed for Medical Other Branch (nausea). Indication s: nausea spironolact 2020-0 Yes [id number] 50mg Take 1 [facility] one 50 mg 5-29 tablet by ity o f tablet 00:00: mouth [place] 00 daily. Medical Branch metFORMIN 2020-0 Yes [id number] 1000mg Take 1 [facility] 1,000 mg 5-29 tablet by ity of tablet 00:00: mouth 2 [place] 00 (two) Medical times Branch daily with meals. esomeprazol 2020-0 Yes [id number] 40mg Take 1 [facility] e 40 mg 5-29 capsule by ity of capsule 00:00: mouth [place] 00 daily with Medical breakfast. Branch hydrOXYzine 2020-0 Yes [id number] 50mg Take 1 Univ ers 50 mg 5-29 capsule by ity of capsule 00:00: mouth as [place] 00 needed for Medical Other Branch (nausea). Indication s: nausea spironolact Yes [id number] 50mg Take 1 [facility] one 50 mg 5-29 tablet by ity o f tablet 00:00: mouth 00 daily. Medical Branch metFORMIN Yes [id number] 1000mg Take 1 [facility] 1,000 mg 5-29 tablet by ity of tablet 00:00: mouth 2 (two) Medical times Branch daily with meals. esomeprazol Yes [id number] 40mg Take 1 [facility] e 40 mg 5-29 capsule by ity of capsule 00:00: mouth 00 daily with Medical breakfast. Branch Methocarbam Yes 750 mg = 1 Memoria ol 750 MG 5-24 tab, PO, l Oral Tablet 19:24: BID, PRN He rmann [Robaxin] 00 Spasms, X 14 day, # 28 tab, 1 Refill(s), Pharmacy: [facility], 149.86, cm, 10/23/20 14:04:00 CDT, Height, 60.483, kg, 10/23/20 14:04:00 CDT, Weight Methocarbam Yes 750 mg = 1 Memoria ol 750 MG 5-24 tab, PO, l Oral Tablet 19:24: BID, PRN He rmann [Robaxin] 00 Spasms, X 14 day, # 28 tab, 1 Refill(s), Pharmacy: [facility] 527, 149.86, cm, 10/23/20 14:04:00 CDT, Height, 60.483, kg, 10/23/20 14:04:00 CDT, Weight furosemide 0 Yes [id number] 40mg Take 1 U nivers (LASIX) 40 5-14 tablet by ity of mg tablet 00:00: mouth 00 every Medical morning Branch and evening. furosemide Yes [id number] 40mg Take 1 U nivers (LASIX) 40 5-14 tablet by ity of mg tablet 00:00: mouth 00 every Medical morning Branch and evening. furosemide Yes [id number] 40mg Take 1 U nivers (LASIX) 40 5-14 tablet by ity of mg tablet 00:00: mouth 00 every Medical morning Branch and evening. simvastatin Yes 1{tbl} Take [address] (ZOCOR) 20 4-10 tablet by Luke s MG tablet 00:00: mouth. Medica l 00 Center buPROPion Yes 100 mg = 1 Me [...] # 20 tab, 0 Refill(s) buPROPion Yes [id number] 100mg Take 1 U nivers 100 mg 3-27 tablet by ity of tablet 00:00: mouth [facility] Medical times Branch daily. propranoloL Yes [id number] 20mg Take 1 [facility] 20 mg 3-27 tablet by ity of tablet 00:00: mouth (two) Medical times Branch daily. buPROPion Yes [id number] 100mg Take 1 U nivers 100 mg 3-27 tablet by ity of tablet 00:00: mouth (two) Medical times Branch daily. propranoloL Yes [id number] 20mg Take 1 [facility] 20 mg 3-27 tablet by ity of tablet 00:00: mouth (two) Medical times Branch daily. buPROPion Yes [id number] 100mg Take 1 U nivers 100 mg 3-27 tablet by ity of tablet 00:00: mouth 2 (two) Medical times Branch daily. propranoloL Yes [id number] 20mg Take 1 [facility] 20 mg 3-27 tablet by ity of tablet 00:00: mouth 2 [place] 00 (two) Medical times Branch daily. Nexium 0 Yes PO, BID, 0 Memor ia 3-24 Refill(s) l 19:30: [facility] Benadryl 0 Yes 25 mg, PO, Mem oria 3-24 TID, 0 l 19:30: Refill(s) [facility] 00 Nexium 0 Yes PO, BID, 0 Memor ia 3-24 Refill(s) l 19:30: García Benadryl Yes 25 mg, PO, Mem oria 3-24 TID, 0 l 19:30: Refill(s) [facility] 00 buPROPion Yes Oral for [facility] (WELLBUTRIN 3-12 90 [facility] ) 100 MG 00:00: Medical tablet 00 Center gabapentin Yes 300 mg = 1 M [...] emoria 2-25 Daily, 0 l 19:45: Refill(s) [facility] 00 propranolol Yes 20 mg = 1 [...] PO, l Hydrochlori 19:45: TID, 0 Herm omid de 25 MG 00 Refill(s) Oral Tablet [...] mL 2-25 Refill(s) l oral and 19:45: [facility] rectal 00 liquid Amylases Yes 3 cap, PO, Mem oria [id number] UNT / 2-25 TID, 0 l Endopeptida 19:45: Refill(s) [place] [id number] 00 UNT / Lipase [id number] UNT Enteric Coated Capsule [Creon 12] simvastatin [...] PO, l Hydrochlori 19:45: TID, 0 Herm omid de 25 MG 00 Refill(s) Oral Tablet [...] Amylases Yes 3 cap, PO, Mem oria [id number] UNT / 2-25 TID, 0 l Endopeptida 19:45: Refill(s) [place] ses 96730 00 UNT / Lipase [id number] UNT Enteric Coated Capsule [Creon 12] simvastatin Yes 20 mg = 1 M emoria 20 mg oral 2-25 tab, PO, l tablet 19:45: Bedtime, # Corine nn 00 90 tab, 1 Refill(s) Metformin Yes 1,000 mg, Mem oria 2-25 PO, BID, 0 l 19:45: Refill(s) [facility] 00 lipase-prot Yes [id number] 1{capsu Take 1 [facility] ease-amylas 9-23 le} capsule by it y of e (CREON) 00:00: mouth 3 [place] 12,000-38,0 00 (three) Medic al 00 -60,000 times Branch unit daily with capsule meals. lipase-prot Yes [id number] 1{capsu Take 1 [facility] ease-amylas 9-23 le} capsule by it y of e (CREON) 00:00: mouth 3 [place] 12,000-38,0 00 (three) Medic al 00 -60,000 times Branch unit daily with capsule meals. lipase-prot Yes [id number] 1{capsu Take 1 [facility] ease-amylas 9-23 le} capsule by it y of e (CREON) 00:00: mouth 3 [place] 12,000-38,0 00 (three) Medic al 00 -60,000 times Branch unit daily with capsule meals. ibuprofen Yes 800mg Q6H Take 800 Met [...] 10 nightly. l Cholestero l Medication metFORMIN Yes 1000mg Q.5D Take 1,000 Methodi [...] mouth Hospita tablet 10 nightly. l methocarbam 0 Yes 750mg Q.5D Take 750 M ethodi ol 8-[address] (ROBAXIN) 16:59: mouth 2 Hospi ta 750 MG 10 (two) l tablet times a day. insulin NPH Yes 40U Q.5D Inject 40 M ethodi and regular 8-[address] human 16:59: under the Hospita (HumuLIN 10 skin 2 l 70/30) 100 (two) unit/mL times a (70-30) day with injection meals. lactulose 2016-0 Yes 10g Q.[id number] Take 10 g Methodi 10 gram/15 8-[id number] mL solution 16:59: 3D (three) Hos iban 10 times a l day. omeprazole 2016-0 Yes 20mg QD Take 20 mg M ethodi (PriLOSEC) 8-[address] 20 MG 16:59: daily. Hospita capsule 10 l multivitami 2016-0 Yes 1{tbl} QD Take 1 Me thodi n 8-[address] (THERAGRAN) 16:59: mouth Hospi ta tablet 10 daily. l metFORMIN 2016-0 Yes 1000mg Q.5D Take 1,000 Methodi (GLUCOPHAGE 8-[address] ) 1000 MG 11:59: mouth 2 Hospi ta tablet 10 (two) l times a day with meals. gabapentin 2016-0 Yes 300mg QD Take 300 Me thodi (NEURONTIN) 8-[address] 300 MG 11:59: mouth [facility]ospita capsule 10 daily. l gabapentin 2016-0 Yes 600mg QD Take 600 Me thodi (NEURONTIN) 8-[address] 600 MG 11:59: mouth [facility]osp[facility] tablet 10 nightly. l methocarbam 2015-0 Yes 750mg Q.5D Take 750 M ethodi ol 8-[address] (ROBAXIN) 11:59: mouth 2 Hospi ta 750 MG 10 (two) l tablet times a day. insulin NPH 2015-0 Yes 40U Q.5D Inject 40 M ethodi and regular 8-[address] human 11:59: under the Hospita (HumuLIN 10 skin 2 l 70/30) 100 (two) unit/mL times a (70-30) day with injection meals. lactulose 2016-0 Yes 10g Q.[id number] Take 10 g Methodi 10 gram/15 8-[id number] mouth [address] mL solution 11:59: 3D (three) Hos iban 10 times a l day. omeprazole 2016-0 Yes 20mg QD Take 20 mg M ethodi (PriLOSEC) 8-[address] 20 MG 11:59: daily. Hospita capsule 10 l multivitami 2016-0 Yes 1{tbl} QD Take 1 Me thodi n 8-[address] (THERAGRAN) 11:59: mouth Hospi ta tablet 10 daily. l ibuprofen Yes 800mg Q6H Take 800 Met hodi (ADVIL,MOTR 8-[address] IN) 800 MG 11:59: mouth Hospit a tablet 10 every 6 l (six) hours as needed for mild pain. traMADol Yes 50mg Q6H Take 50 mg Met hodi (ULTRAM) 50 8-[address] mg tablet 11:59: every 6 Hospi ta 10 (six) l hours as needed for moderate pain. UNKNOWN TO Yes 1{tbl} QD Take 1 Met hodi PATIENT 8-[address] 11:59: mouth Hospita 10 nightly. l Cholestero l Medication FLUoxetine FLUoxetine No 1{capsu QD FLUoxetine HCl 40 MG HCl 40 MG le} HCl 40 MG Pantoprazol Pantoprazol No Pantoprazo e Sodium 40 e Sodium 40 le Sodium MG MG 40 MG Methocarbam Methocarbam No Methocarba ol 750 MG ol 750 MG mol 750 MG hydrOXYzine hydrOXYzine No QD hydrOXYzin Pamoate 25 Pamoate 25 e Pamoate MG MG 25 MG metFORMIN metFORMIN No metFORMIN HCl 1000 MG HCl 1000 MG HCl 1000 MG Lisinopril Lisinopril No Lisinopril 5 MG 5 MG 5 MG traMADol traMADol No 1{table QD traMADol HCl 50 MG HCl 50 MG t_as_ne HCl 50 MG eded} glipiZIDE glipiZIDE No 1{table QD glipiZIDE ER 10 MG ER 10 MG t_with_ ER [address]} Simvastatin Simvastatin No Simvastati 20 MG 20 MG n 20 MG hydrOXYzine hydrOXYzine No QD hydrOXYzin Pamoate 25 Pamoate 25 e Pamoate MG MG 25 MG MagOx 400 MagOx 400 No 1{table QD MagOx 400 400 (240 400 (240 t_with_ 400 (240 Mg) MG Mg) MG food} Mg) MG Gabapentin Gabapentin No Gabapentin 300 MG 300 MG 300 MG Lisinopril Lisinopril No 1{table QD Lisinopril 5 MG 5 MG t} 5 MG Lactulose Lactulose No 15{ml_a QD Lactulose 10 GM/15ML 10 GM/15ML s_neede 10 GM/15ML d} Propranolol Propranolol No 1{table BID Propranolo HCl 20 MG HCl 20 MG t} l HCl 20 MG buPROPion buPROPion No 1{table BID buPROPion HCl 100 MG HCl 100 MG t} HCl 100 MG FLUoxetine FLUoxetine No FLUoxetine HCl 40 MG HCl 40 MG HCl 40 MG glipiZIDE glipiZIDE No 1{table QD glipiZIDE ER 10 MG ER 10 MG t_with_ ER [address]} traMADol traMADol No 1{table QD traMADol HCl 50 MG HCl 50 MG t_as_ne HCl 50 MG eded} Methocarbam Methocarbam No Methocarba ol 750 MG ol 750 MG mol 750 MG Lisinopril Lisinopril No Lisinopril 5 MG 5 MG 5 MG Pantoprazol Pantoprazol No Pantoprazo e Sodium 40 e Sodium 40 le Sodium MG MG 40 MG metFORMIN metFORMIN No 1{table BID metFORMIN HCl 1000 MG HCl 1000 MG t_with_ HCl 1000 a_meal} MG FLUoxetine FLUoxetine No FLUoxetine HCl 40 MG HCl 40 MG HCl 40 MG Methocarbam Methocarbam No Methocarba ol 750 MG ol 750 MG mol 750 MG Simvastatin Simvastatin No QD Simvastati 20 MG 20 MG n 20 MG Lactulose Lactulose No 15{ml_a QD Lactulose 10 GM/15ML 10 GM/15ML s_neede 10 GM/15ML d} Gabapentin Gabapentin No Gabapentin 300 MG 300 MG 300 MG Lisinopril Lisinopril No Lisinopril 5 MG 5 MG 5 MG hydrOXYzine hydrOXYzine No QD hydrOXYzin Pamoate 25 Pamoate 25 e Pamoate MG MG 25 MG traMADol traMADol No 1{table QD traMADol HCl 50 MG HCl 50 MG t_as_ne HCl 50 MG eded} buPROPion buPROPion No 1{table BID buPROPion HCl 100 MG HCl 100 MG t} HCl 100 MG metFORMIN metFORMIN No 1{table BID metFORMIN HCl 1000 MG HCl 1000 MG t_with_ HCl 1000 a_meal} MG MagOx 400 MagOx 400 No 1{table QD MagOx 400 400 (240 400 (240 t_with_ 400 (240 Mg) MG Mg) MG food} Mg) MG glipiZIDE glipiZIDE No 1{table QD glipiZIDE ER 10 MG ER 10 MG t_with_ ER [address]} Propranolol Propranolol No 1{table BID Propranolo HCl 20 MG HCl 20 MG t} l HCl 20 MG Lisinopril Lisinopril No 1{table QD Lisinopril 5 MG 5 MG t} 5 MG Pantoprazol Pantoprazol No Pantoprazo e Sodium 40 e Sodium 40 le Sodium MG MG 40 MG FLUoxetine FLUoxetine No 1{capsu QD FLUoxetine HCl 40 MG HCl 40 MG le} HCl 40 MG glipiZIDE glipiZIDE No 1{table QD glipiZIDE ER 10 MG ER 10 MG t_with_ ER [address]} Lisinopril Lisinopril No Lisinopril 5 MG 5 MG 5 MG Lisinopril Lisinopril No 1{table QD Lisinopril 5 MG 5 MG t} 5 MG FLUoxetine FLUoxetine No FLUoxetine HCl 40 MG HCl 40 MG HCl 40 MG Gabapentin Gabapentin No TID Gabapentin 300 MG 300 MG 300 MG traMADol traMADol No 1{table QD traMADol HCl 50 MG HCl 50 MG t_as_ne HCl 50 MG eded} hydrOXYzine hydrOXYzine No 1{capsu hydrOXYzin Pamoate 25 Pamoate 25 le} e Pamoate MG MG 25 MG Methocarbam Methocarbam No Methocarba ol 750 MG ol 750 MG mol 750 MG metFORMIN metFORMIN No 1{table BID metFORMIN HCl 1000 MG HCl 1000 MG t_with_ HCl 1000 a_meal} MG Simvastatin Simvastatin No QD Simvastati 20 MG 20 MG n 20 MG Propranolol Propranolol No 1{table BID Propranolo HCl 20 MG HCl 20 MG t} l HCl 20 MG Pantoprazol Pantoprazol No 1{table QD Pantoprazo e Sodium 40 e Sodium 40 t} le Sodium MG MG 40 MG buPROPion buPROPion No 1{table BID buPROPion HCl 100 MG HCl 100 MG t} HCl 100 MG Simvastatin Simvastatin No QD Simvastati 20 MG 20 MG n 20 MG metFORMIN metFORMIN No 1{table BID metFORMIN HCl 1000 MG HCl 1000 MG t_with_ HCl 1000 a_meal} MG hydrOXYzine hydrOXYzine No 1{capsu hydrOXYzin Pamoate 25 Pamoate 25 le} e Pamoate MG MG 25 MG Pantoprazol Pantoprazol No 1{table QD Pantoprazo e Sodium 40 e Sodium 40 t} le Sodium MG MG 40 MG Lisinopril Lisinopril No 1{table QD Lisinopril 5 MG 5 MG t} 5 MG buPROPion buPROPion No 1{table BID buPROPion HCl 100 MG HCl 100 MG t} HCl 100 MG Methocarbam Methocarbam No Methocarba ol 750 MG ol 750 MG mol 750 MG glipiZIDE glipiZIDE No 1{table QD glipiZIDE ER 10 MG ER 10 MG t_with_ ER [address]} FLUoxetine FLUoxetine No FLUoxetine HCl 40 MG HCl 40 MG HCl 40 MG Gabapentin Gabapentin No TID Gabapentin 300 MG 300 MG 300 MG FLUoxetine FLUoxetine No 1{capsu QD FLUoxetine HCl 40 MG HCl 40 MG le} HCl 40 MG Propranolol Propranolol No 1{table BID Propranolo HCl 20 MG HCl 20 MG t} l HCl 20 MG traMADol traMADol No 1{table QD traMADol HCl 50 MG HCl 50 MG t_as_ne HCl 50 MG eded} Lisinopril Lisinopril No Lisinopril 5 MG 5 MG 5 MG Simvastatin Simvastatin No Simvastati 20 MG 20 MG n 20 MG buPROPion buPROPion No 1{table BID buPROPion HCl 100 MG HCl 100 MG t} HCl 100 MG MagOx 400 MagOx 400 No 1{table QD MagOx 400 400 (240 400 (240 t_with_ 400 (240 Mg) MG Mg) MG food} Mg) MG Gabapentin Gabapentin No Gabapentin 300 MG 300 MG 300 MG Lisinopril Lisinopril No 1{table QD Lisinopril 5 MG 5 MG t} 5 MG Lactulose Lactulose No 15{ml_a QD Lactulose 10 GM/15ML 10 GM/15ML s_neede 10 GM/15ML d} Propranolol Propranolol No 1{table BID Propranolo HCl 20 MG HCl 20 MG t} l HCl 20 MG FLUoxetine FLUoxetine No 1{capsu QD FLUoxetine HCl 40 MG HCl 40 MG le} HCl 40 MG Pantoprazol Pantoprazol No Pantoprazo e Sodium 40 e Sodium 40 le Sodium MG MG 40 MG Methocarbam Methocarbam No Methocarba ol 750 MG ol 750 MG mol 750 MG hydrOXYzine hydrOXYzine No QD hydrOXYzin Pamoate 25 Pamoate 25 e Pamoate MG MG 25 MG metFORMIN metFORMIN No metFORMIN HCl 1000 MG HCl 1000 MG HCl 1000 MG Lisinopril Lisinopril No Lisinopril 5 MG 5 MG 5 MG traMADol traMADol No 1{table QD traMADol HCl 50 MG HCl 50 MG t_as_ne HCl 50 MG eded} glipiZIDE glipiZIDE No 1{table QD glipiZIDE ER 10 MG ER 10 MG t_with_ ER [address]} Simvastatin Simvastatin No Simvastati 20 MG 20 MG n 20 MG buPROPion buPROPion No 1{table BID buPROPion HCl 100 MG HCl 100 MG t} HCl 100 MG MagOx 400 MagOx 400 No 1{table QD MagOx 400 400 (240 400 (240 t_with_ 400 (240 Mg) MG Mg) MG food} Mg) MG Gabapentin Gabapentin No Gabapentin 300 MG 300 MG 300 MG Lisinopril Lisinopril No 1{table QD Lisinopril 5 MG 5 MG t} 5 MG Lactulose Lactulose No 15{ml_a QD Lactulose 10 GM/15ML 10 GM/15ML s_neede 10 GM/15ML d} Propranolol Propranolol No 1{table BID Propranolo HCl 20 MG HCl 20 MG t} l HCl 20 MG FLUoxetine FLUoxetine No 1{capsu QD FLUoxetine HCl 40 MG HCl 40 MG le} HCl 40 MG Pantoprazol Pantoprazol No Pantoprazo e Sodium 40 e Sodium 40 le Sodium MG MG 40 MG Methocarbam Methocarbam No Methocarba ol 750 MG ol 750 MG mol 750 MG hydrOXYzine hydrOXYzine No QD hydrOXYzin Pamoate 25 Pamoate 25 e Pamoate MG MG 25 MG metFORMIN metFORMIN No metFORMIN HCl 1000 MG HCl 1000 MG HCl 1000 MG Lisinopril Lisinopril No Lisinopril 5 MG 5 MG 5 MG traMADol traMADol No 1{table QD traMADol HCl 50 MG HCl 50 MG t_as_ne HCl 50 MG eded} glipiZIDE glipiZIDE No 1{table QD glipiZIDE ER 10 MG ER 10 MG t_with_ ER [address]} Gabapentin Gabapentin No 1{capsu TID Gabapentin 300 MG 300 MG le} 300 MG metFORMIN metFORMIN No metFORMIN HCl 1000 MG HCl 1000 MG HCl 1000 MG Propranolol Propranolol No 1{table BID Propranolo HCl 20 MG HCl 20 MG t} l HCl 20 MG Methocarbam Methocarbam No 1{table BID Methocarba ol 750 MG ol 750 MG t} mol 750 MG FLUoxetine FLUoxetine No 1{capsu QD FLUoxetine HCl 40 MG HCl 40 MG le} HCl 40 MG hydrOXYzine hydrOXYzine No 1{capsu TID hydrOXYzin Pamoate 25 Pamoate 25 le_as_n e Pamoate MG MG eeded} 25 MG Hydrocortis Hydrocortis No 1{appli QD Hydrocorti one 1 % one 1 % cation} sone 1 % Pantoprazol Pantoprazol No 1{table BID Pantoprazo e Sodium 40 e Sodium 40 t} le Sodium MG MG 40 MG Ondansetron Ondansetron No 1{table QD Ondansetro HCl 4 MG HCl 4 MG t} n HCl 4 MG buPROPion buPROPion No buPROPion HCl 100 MG HCl 100 MG HCl 100 MG Gabapentin Gabapentin No 1{capsu TID Gabapentin 300 MG 300 MG le} 300 MG metFORMIN metFORMIN No metFORMIN HCl 1000 MG HCl 1000 MG HCl 1000 MG Propranolol Propranolol No 1{table BID Propranolo HCl 20 MG HCl 20 MG t} l HCl 20 MG Methocarbam Methocarbam No 1{table BID Methocarba ol 750 MG ol 750 MG t} mol 750 MG FLUoxetine FLUoxetine No 1{capsu QD FLUoxetine HCl 40 MG HCl 40 MG le} HCl 40 MG hydrOXYzine hydrOXYzine No 1{capsu TID hydrOXYzin Pamoate 25 Pamoate 25 le_as_n e Pamoate MG MG eeded} 25 MG Hydrocortis Hydrocortis No 1{appli QD Hydrocorti one 1 % one 1 % cation} sone 1 % Pantoprazol Pantoprazol No 1{table BID Pantoprazo e Sodium 40 e Sodium 40 t} le Sodium MG MG 40 MG Ondansetron Ondansetron No 1{table QD Ondansetro HCl 4 MG HCl 4 MG t} n HCl 4 MG buPROPion buPROPion No buPROPion HCl 100 MG HCl 100 MG HCl 100 MG traMADol traMADol No 1{table QD traMADol HCl 50 MG HCl 50 MG t_as_ne HCl 50 MG eded} Xifaxan 550 Xifaxan 550 No Xifaxan MG MG 550 MG FLUoxetine FLUoxetine No 1{capsu QD FLUoxetine HCl 40 MG HCl 40 MG le} HCl 40 MG Gabapentin Gabapentin No 1{capsu TID Gabapentin 300 MG 300 MG le} 300 MG Pantoprazol Pantoprazol No 1{table BID Pantoprazo e Sodium 40 e Sodium 40 t} le Sodium MG MG 40 MG HumuLIN HumuLIN No BID HumuLIN 70/30 70/30 70/30 KwikPen KwikPen KwikPen (70-30) 100 (70-30) 100 (70-30) UNIT/ML UNIT/ML 100 UNIT/ML glipiZIDE glipiZIDE No 1{table BID glipiZIDE ER 10 MG ER 10 MG t_with_ ER [address]} metFORMIN metFORMIN No metFORMIN HCl 1000 MG HCl 1000 MG HCl 1000 MG Propranolol Propranolol No 1{table BID Propranolo HCl 20 MG HCl 20 MG t} l HCl 20 MG traMADol traMADol No 1{table QD traMADol HCl 50 MG HCl 50 MG t_as_ne HCl 50 MG eded} Xifaxan 550 Xifaxan 550 No Xifaxan MG MG 550 MG FLUoxetine FLUoxetine No 1{capsu QD FLUoxetine HCl 40 MG HCl 40 MG le} HCl 40 MG Gabapentin Gabapentin No 1{capsu TID Gabapentin 300 MG 300 MG le} 300 MG Pantoprazol Pantoprazol No 1{table BID Pantoprazo e Sodium 40 e Sodium 40 t} le Sodium MG MG 40 MG HumuLIN HumuLIN No BID HumuLIN 70/30 70/30 70/30 KwikPen KwikPen KwikPen (70-30) 100 (70-30) 100 (70-30) UNIT/ML UNIT/ML 100 UNIT/ML glipiZIDE glipiZIDE No 1{table BID glipiZIDE ER 10 MG ER 10 MG t_with_ ER [address]} metFORMIN metFORMIN No metFORMIN HCl 1000 MG HCl 1000 MG HCl 1000 MG Propranolol Propranolol No 1{table BID Propranolo HCl 20 MG HCl 20 MG t} l HCl 20 MG traMADol traMADol No 1{table QD traMADol HCl 50 MG HCl 50 MG t_as_ne HCl 50 MG eded} Xifaxan 550 Xifaxan 550 No Xifaxan MG MG 550 MG FLUoxetine FLUoxetine No 1{capsu QD FLUoxetine HCl 40 MG HCl 40 MG le} HCl 40 MG Gabapentin Gabapentin No 1{capsu TID Gabapentin 300 MG 300 MG le} 300 MG Pantoprazol Pantoprazol No 1{table BID Pantoprazo e Sodium 40 e Sodium 40 t} le Sodium MG MG 40 MG HumuLIN HumuLIN No BID HumuLIN 70/30 70/30 70/30 KwikPen KwikPen KwikPen (70-30) 100 (70-30) 100 (70-30) UNIT/ML UNIT/ML 100 UNIT/ML glipiZIDE glipiZIDE No 1{table BID glipiZIDE ER 10 MG ER 10 MG t_with_ ER [address]} metFORMIN metFORMIN No metFORMIN HCl 1000 MG HCl 1000 MG HCl 1000 MG Propranolol Propranolol No 1{table BID Propranolo HCl 20 MG HCl 20 MG t} l HCl 20 MG traMADol traMADol No 1{table QD traMADol HCl 50 MG HCl 50 MG t_as_ne HCl 50 MG eded} Propranolol Propranolol No 1{table BID Propranolo HCl 20 MG HCl 20 MG t} l HCl 20 MG glipiZIDE glipiZIDE No 1{table QD glipiZIDE ER 10 MG ER 10 MG t_with_ ER [address]} metFORMIN metFORMIN No metFORMIN HCl 1000 MG HCl 1000 MG HCl 1000 MG Pantoprazol Pantoprazol No Pantoprazo e Sodium 40 e Sodium 40 le Sodium MG MG 40 MG hydrOXYzine hydrOXYzine No QD hydrOXYzin Pamoate 25 Pamoate 25 e Pamoate MG MG 25 MG FLUoxetine FLUoxetine No 1{capsu QD FLUoxetine HCl 40 MG HCl 40 MG le} HCl 40 MG Gabapentin Gabapentin No Gabapentin 300 MG 300 MG 300 MG Gabapentin Gabapentin No Gabapentin 300 MG 300 MG 300 MG Propranolol Propranolol No 1{table BID Propranolo HCl 20 MG HCl 20 MG t} l HCl 20 MG metFORMIN metFORMIN No metFORMIN HCl 1000 MG HCl 1000 MG HCl 1000 MG FLUoxetine FLUoxetine No 1{capsu QD FLUoxetine HCl 40 MG HCl 40 MG le} HCl 40 MG Pantoprazol Pantoprazol No Pantoprazo e Sodium 40 e Sodium 40 le Sodium MG MG 40 MG traMADol traMADol No 1{table QD traMADol HCl 50 MG HCl 50 MG t_as_ne HCl 50 MG eded} hydrOXYzine hydrOXYzine No QD hydrOXYzin Pamoate 25 Pamoate 25 e Pamoate MG MG 25 MG glipiZIDE glipiZIDE No 1{table QD glipiZIDE ER 10 MG ER 10 MG t_with_ ER [address]} Propranolol Propranolol No 1{table BID Propranolo HCl 20 MG HCl 20 MG t} l HCl 20 MG Gabapentin Gabapentin No Gabapentin 300 MG 300 MG 300 MG FLUoxetine FLUoxetine No 1{capsu QD FLUoxetine HCl 40 MG HCl 40 MG le} HCl 40 MG traMADol traMADol No 1{table QD traMADol HCl 50 MG HCl 50 MG t_as_ne HCl 50 MG eded} glipiZIDE glipiZIDE No 1{table QD glipiZIDE ER 10 MG ER 10 MG t_with_ ER [address]} metFORMIN metFORMIN No metFORMIN HCl 1000 MG HCl 1000 MG HCl 1000 MG hydrOXYzine hydrOXYzine No QD hydrOXYzin Pamoate 25 Pamoate 25 e Pamoate MG MG 25 MG Pantoprazol Pantoprazol No Pantoprazo e Sodium 40 e Sodium 40 le Sodium MG MG 40 MG Propranolol Propranolol No 1{table BID Propranolo HCl 20 MG HCl 20 MG t} l HCl 20 MG Pantoprazol Pantoprazol No Pantoprazo e Sodium 40 e Sodium 40 le Sodium MG MG 40 MG FLUoxetine FLUoxetine No 1{capsu QD FLUoxetine HCl 40 MG HCl 40 MG le} HCl 40 MG Gabapentin Gabapentin No Gabapentin 300 MG 300 MG 300 MG glipiZIDE glipiZIDE No 1{table QD glipiZIDE ER 10 MG ER 10 MG t_with_ ER [address]} metFORMIN metFORMIN No metFORMIN HCl 1000 MG HCl 1000 MG HCl 1000 MG hydrOXYzine hydrOXYzine No QD hydrOXYzin Pamoate 25 Pamoate 25 e Pamoate MG MG 25 MG traMADol traMADol No 1{table QD traMADol HCl 50 MG HCl 50 MG t_as_ne HCl 50 MG eded} Propranolol Propranolol No 1{table BID Propranolo HCl 20 MG HCl 20 MG t} l HCl 20 MG Methocarbam Methocarbam No Methocarba ol 750 MG ol 750 MG mol 750 MG Pantoprazol Pantoprazol No Pantoprazo e Sodium 40 e Sodium 40 le Sodium MG MG 40 MG FLUoxetine FLUoxetine No 1{capsu QD FLUoxetine HCl 40 MG HCl 40 MG le} HCl 40 MG Gabapentin Gabapentin No Gabapentin 300 MG 300 MG 300 MG glipiZIDE glipiZIDE No 1{table QD glipiZIDE ER 10 MG ER 10 MG t_with_ ER [address]} metFORMIN metFORMIN No metFORMIN HCl 1000 MG HCl 1000 MG HCl 1000 MG hydrOXYzine hydrOXYzine No QD hydrOXYzin Pamoate 25 Pamoate 25 e Pamoate MG MG 25 MG traMADol traMADol No 1{table QD traMADol HCl 50 MG HCl 50 MG t_as_ne HCl 50 MG eded} traMADol traMADol No 1{table QD traMADol HCl 50 MG HCl 50 MG t_as_ne HCl 50 MG eded} glipiZIDE glipiZIDE No 1{table QD glipiZIDE ER 10 MG ER 10 MG t_with_ ER [address]} Methocarbam Methocarbam No Methocarba ol 750 MG ol 750 MG mol 750 MG metFORMIN metFORMIN No metFORMIN HCl 1000 MG HCl 1000 MG HCl 1000 MG Propranolol Propranolol No 1{table BID Propranolo HCl 20 MG HCl 20 MG t} l HCl 20 MG Simvastatin Simvastatin No Simvastati 20 MG 20 MG n 20 MG Pantoprazol Pantoprazol No Pantoprazo e Sodium 40 e Sodium 40 le Sodium MG MG 40 MG hydrOXYzine hydrOXYzine No QD hydrOXYzin Pamoate 25 Pamoate 25 e Pamoate MG MG 25 MG Lisinopril Lisinopril No 1{table QD Lisinopril 5 MG 5 MG t} 5 MG FLUoxetine FLUoxetine No 1{capsu QD FLUoxetine HCl 40 MG HCl 40 MG le} HCl 40 MG Gabapentin Gabapentin No Gabapentin 300 MG 300 MG 300 MG traMADol traMADol No 1{table QD traMADol HCl 50 MG HCl 50 MG t_as_ne HCl 50 MG eded} Pantoprazol Pantoprazol No Pantoprazo e Sodium 40 e Sodium 40 le Sodium MG MG 40 MG metFORMIN metFORMIN No metFORMIN HCl 1000 MG HCl 1000 MG HCl 1000 MG glipiZIDE glipiZIDE No 1{table QD glipiZIDE ER 10 MG ER 10 MG t_with_ ER [address]} Methocarbam Methocarbam No Methocarba ol 750 MG ol 750 MG mol 750 MG Simvastatin Simvastatin No Simvastati 20 MG 20 MG n 20 MG Gabapentin Gabapentin No Gabapentin 300 MG 300 MG 300 MG hydrOXYzine hydrOXYzine No QD hydrOXYzin Pamoate 25 Pamoate 25 e Pamoate MG MG 25 MG Lisinopril Lisinopril No 1{table QD Lisinopril 5 MG 5 MG t} 5 MG FLUoxetine FLUoxetine No 1{capsu QD FLUoxetine HCl 40 MG HCl 40 MG le} HCl 40 MG Propranolol Propranolol No 1{table BID Propranolo HCl 20 MG HCl 20 MG t} l HCl 20 MG traMADol traMADol No 1{table QD traMADol HCl 50 MG HCl 50 MG t_as_ne HCl 50 MG eded} Pantoprazol Pantoprazol No Pantoprazo e Sodium 40 e Sodium 40 le Sodium MG MG 40 MG metFORMIN metFORMIN No metFORMIN HCl 1000 MG HCl 1000 MG HCl 1000 MG glipiZIDE glipiZIDE No 1{table QD glipiZIDE ER 10 MG ER 10 MG t_with_ ER [address]} Simvastatin Simvastatin No Simvastati 20 MG 20 MG n 20 MG FLUoxetine FLUoxetine No 1{capsu QD FLUoxetine HCl 40 MG HCl 40 MG le} HCl 40 MG Propranolol Propranolol No 1{table BID Propranolo HCl 20 MG HCl 20 MG t} l HCl 20 MG hydrOXYzine hydrOXYzine No QD hydrOXYzin Pamoate 25 Pamoate 25 e Pamoate MG MG 25 MG Lisinopril Lisinopril No 1{table QD Lisinopril 5 MG 5 MG t} 5 MG Gabapentin Gabapentin No Gabapentin 300 MG 300 MG 300 MG Methocarbam Methocarbam No Methocarba ol 750 MG ol 750 MG mol 750 MG glipiZIDE glipiZIDE No 1{table QD glipiZIDE ER 10 MG ER 10 MG t_with_ ER [address]} Lisinopril Lisinopril No 1{table QD Lisinopril 5 MG 5 MG t} 5 MG Simvastatin Simvastatin No Simvastati 20 MG 20 MG n 20 MG Methocarbam Methocarbam No Methocarba ol 750 MG ol 750 MG mol 750 MG hydrOXYzine hydrOXYzine No QD hydrOXYzin Pamoate 25 Pamoate 25 e Pamoate MG MG 25 MG FLUoxetine FLUoxetine No 1{capsu QD FLUoxetine HCl 40 MG HCl 40 MG le} HCl 40 MG Pantoprazol Pantoprazol No Pantoprazo e Sodium 40 e Sodium 40 le Sodium MG MG 40 MG Propranolol Propranolol No 1{table BID Propranolo HCl 20 MG HCl 20 MG t} l HCl 20 MG Gabapentin Gabapentin No Gabapentin 300 MG 300 MG 300 MG Lisinopril Lisinopril No Lisinopril 5 MG 5 MG 5 MG metFORMIN metFORMIN No metFORMIN HCl 1000 MG HCl 1000 MG HCl 1000 MG traMADol traMADol No 1{table QD traMADol HCl 50 MG HCl 50 MG t_as_ne HCl 50 MG eded} Simvastatin Simvastatin No Simvastati 20 MG 20 MG n 20 MG buPROPion buPROPion No 1{table BID buPROPion HCl 100 MG HCl 100 MG t} HCl 100 MG MagOx 400 MagOx 400 No 1{table QD MagOx 400 400 (240 400 (240 t_with_ 400 (240 Mg) MG Mg) MG food} Mg) MG Gabapentin Gabapentin No Gabapentin 300 MG 300 MG 300 MG Lisinopril Lisinopril No 1{table QD Lisinopril 5 MG 5 MG t} 5 MG Lactulose Lactulose No 15{ml_a QD Lactulose 10 GM/15ML 10 GM/15ML s_neede 10 GM/15ML d} Propranolol Propranolol No 1{table BID Propranolo HCl 20 MG HCl 20 MG t} l HCl 20 MG FLUoxetine FLUoxetine No 1{capsu QD FLUoxetine HCl 40 MG HCl 40 MG le} HCl 40 MG Pantoprazol Pantoprazol No Pantoprazo e Sodium 40 e Sodium 40 le Sodium MG MG 40 MG Methocarbam Methocarbam No Methocarba ol 750 MG ol 750 MG mol 750 MG hydrOXYzine hydrOXYzine No QD hydrOXYzin Pamoate 25 Pamoate 25 e Pamoate MG MG 25 MG metFORMIN metFORMIN No metFORMIN HCl 1000 MG HCl 1000 MG HCl 1000 MG Lisinopril Lisinopril No Lisinopril 5 MG 5 MG 5 MG traMADol traMADol No 1{table QD traMADol HCl 50 MG HCl 50 MG t_as_ne HCl 50 MG eded} glipiZIDE glipiZIDE No 1{table QD glipiZIDE ER 10 MG ER 10 MG t_with_ ER [address]} Simvastatin Simvastatin No Simvastati 20 MG 20 MG n 20 MG buPROPion buPROPion No 1{table BID buPROPion HCl 100 MG HCl 100 MG t} HCl 100 MG MagOx 400 MagOx 400 No 1{table QD MagOx 400 400 (240 400 (240 t_with_ 400 (240 Mg) MG Mg) MG food} Mg) MG Gabapentin Gabapentin No Gabapentin 300 MG 300 MG 300 MG Lisinopril Lisinopril No 1{table QD Lisinopril 5 MG 5 MG t} 5 MG Lactulose Lactulose No 15{ml_a QD Lactulose 10 GM/15ML 10 GM/15ML s_neede 10 GM/15ML d} Propranolol Propranolol No 1{table BID Propranolo HCl 20 MG HCl 20 MG t} l HCl 20 MG Lactulose Lactulose 2022- No 15{ml_a QD Lactulose 10 GM/15ML 10 GM/15ML 06-05 s_neede 10 GM/15ML 00:00 d} :00 MagOx 400 MagOx 400 2022- No 1{table QD MagOx 400 400 (240 400 (240 06-05 t_with_ 400 (240 Mg) MG Mg) MG 00:00 food} Mg) MG :00 Methocarbam Methocarbam 2022- No BID Methocarba ol 750 MG ol 750 MG 04 mol 750 MG 00:00 :00 Xifaxan 550 Xifaxan 550 2021- No Xifaxan MG MG -17 550 MG 00:00 :00 Xifaxan 550 Xifaxan 550 2021- No Xifaxan MG MG -17 550 MG 00:00 :00 Methocarbam Methocarbam 2021- No Methocarba ol 750 MG ol 750 MG 0512 mol 750 MG 00:00 :00 Methocarbam Methocarbam 2021- No Methocarba ol 750 MG ol 750 MG 05-12 mol 750 MG 00:00 :00 Immunizations Ordered Filled Immunization Date Status Comments [facility] e Immunization Name Name Flucelvax - Flucelvax - 2021-08-15 Completed [facility]ose [facility] multidose vial 14:35:00 [facility] Flucelvax - Flucelvax - 2021-08-15 Completed [facility] multidose vial multidose vial 14:35:00 [facility] Flucelvax - Flucelvax - 2021-08-15 Completed [facility] - multidose vial multidose vial 14:35:00 [facility] Flucelvax - Flucelvax - 2021-08-15 Completed [facility] - multidose vial multidose vial 14:35:00 [facility] Flucelvax - Flucelvax - 2021-08-15 Completed [facility] - multidose vial multidose vial 14:35:00 [facility] Flucelvax - Flucelvax - 2021-08-15 Completed [facility] - multidose vial multidose vial 14:35:00 [facility] Flucelvax - Flucelvax - 2021-08-15 Completed [facility] - multidose vial multidose vial 14:35:00 [facility] Flucelvax - Flucelvax - 2021-08-15 Completed [facility] - multidose vial multidose vial 14:35:00 [facility] Flucelvax - Flucelvax - 2021-08-15 Completed [facility] - multidose vial multidose vial 14:35:00 [facility] Flucelvax - Flucelvax - 2021-08-15 Completed [facility] - multidose vial multidose vial 14:35:00 [facility] Flucelvax - Flucelvax - 2021-08-15 Completed [facility] - multidose vial multidose vial 14:35:00 [facility] Flucelvax - Flucelvax - 2021-08-15 Completed [facility] - multidose vial multidose vial 14:35:00 [facility] Flucelvax - Flucelvax - 2021-08-15 Completed [facility] - multidose vial multidose vial 14:35:00 [facility] Flucelvax - Flucelvax - 2021-08-15 Completed [facility] - multidose vial multidose vial 14:35:00 [facility] Flucelvax - Flucelvax - 2021-08-15 Completed [facility] - multidose vial multidose vial 14:35:00 [facility] Flucelvax - Flucelvax - 2021-08-15 Completed [facility] - multidose vial multidose vial 14:35:00 [facility] Flucelvax - Flucelvax - 2021-08-15 Completed [facility] - multidose vial multidose vial 14:35:00 [facility] Flucelvax - Flucelvax - 2021-08-15 Completed [facility] - multidose vial multidose vial 14:35:00 [facility] Flucelvax - Flucelvax - 2021-08-15 Completed [facility] - multidose vial multidose vial 14:35:00 [facility] Flucelvax - Flucelvax - 2021-08-15 Completed [facility] - multidose vial multidose vial 14:35:00 [facility] Feliz SARS-CoV-2 2020-08-12 Completed [facility]-19 2020-08-12 Completed Unive rsity of FELIZ/J&J VACCINE 00:00:00 [facility] SARS-COV-2 COVID-19 2020-08-12 Completed Unive rsity of FELIZ/J&J VACCINE 00:00:00 [facility] SARS-COV-2 COVID-19 2020-08-12 Completed Unive rsity of FELIZ/J&J VACCINE 00:00:00 [facility] Influenza Virus 2016-02-15 Completed Universit y of Vaccine Quad IM 3+ 00:00:00 [facility] Influenza Virus 2016-02-15 Completed [facility]it y of Vaccine Quad IM 3+ 00:00:00 [facility] Influenza Virus 2016-02-15 Completed [facility]it y of Vaccine Quad IM 3+ 00:00:00 [facility] Branch Pneumococcal 13 2016-01-26 Completed Universit y of Conjugate, PCV13 00:00:[address] [facility] dical (Prevnar 13) Branch Pneumococcal 13 2016-01-26 Completed Universit y of Conjugate, PCV13 00:00:[address] [facility] dical (Prevnar 13) Branch Pneumococcal 13 2016-01-26 Completed Universit y of Conjugate, PCV13 00:00:[address] [facility] dical (Prevnar 13) Branch Vital Signs Vital Name Observation Time Observation Value Comments Source HEIGHT 2022-01-28 17:01:00 160 cm WEIGHT 2022-01-28 17:01:00 59.875 kg Systolic blood 2022-08-29 20:30:00 145 mm[Hg] Univer [facility]ity of pressure [facility] Diastolic blood 2022-08-29 20:30:00 88 mm[Hg] Unive rsity of pressure [facility] Heart rate 2022-08-29 20:30:00 75 /min [facility] Respiratory rate 2022-08-29 20:30:00 23 /min [facility] Oxygen saturation in 2022-08-29 20:30:00 99 /min [facility] Arterial blood by [facility] Pulse oximetry Branch Body temperature 2022-08-29 16:53:00 37.39 Mihaela [facility] height 2022-05-22 11:40:00 57.5 [in_i] [facility] weight 2022-05-22 11:40:00 132.6 [lb_av] [facility] temperature 2022-05-22 11:40:00 97.5 [degF] Common [facility] bmi 2022-05-22 11:40:00 28.19 kg/m2 [facility] oximetry 2022-05-22 11:40:00 94 % [facility] respiratory rate 2022-05-22 11:40:00 16 /min [facility] blood pressure 2022-05-22 11:40:00 123 mm[Hg] Common [facility] - systolic [facility] blood pressure 2022-05-22 11:40:00 78 mm[Hg] Common [facility] - diastolic [facility] height 2022-02-20 13:20:00 57.5 [in_i] [facility] weight 2022-02-20 13:20:00 132 [lb_av] [facility] temperature 2022-02-20 13:20:00 98.5 [degF] [facility] bmi 2022-02-20 13:20:00 28.07 kg/m2 [facility] oximetry 2022-02-20 13:20:00 96 % [facility] respiratory rate 2022-02-20 13:20:00 16 /min [facility] blood pressure 2022-02-20 13:20:00 126 mm[Hg] Common [facility] - systolic [facility] blood pressure 2022-02-20 13:20:00 72 mm[Hg] Common [facility] - diastolic [facility] HEIGHT 2022-01-28 17:01:00 160 cm WEIGHT 2022-01-28 17:01:00 59.875 kg HEIGHT 2022-01-28 17:01:00 160 cm WEIGHT 2022-01-28 17:01:00 59.875 kg height 2021-11-15 10:00:00 58 [in_i] [facility] weight 2021-11-15 10:00:00 134 [lb_av] [facility] temperature 2021-11-15 10:00:00 97.4 [degF] Common [facility] bmi 2021-11-15 10:00:00 28 kg/m2 [facility] oximetry 2021-11-15 10:00:00 97 % [facility] respiratory rate 2021-11-15 10:00:00 16 /min [facility] blood pressure 2021-11-15 10:00:00 126 mm[Hg] Common [facility] - systolic [facility] blood pressure 2021-11-15 10:00:00 70 mm[Hg] Common [facility] - diastolic [facility] height 2021-10-12 16:20:00 58 [in_i] Common [facility] weight 2021-10-12 16:20:00 128.8 [lb_av] [facility] temperature 2021-10-12 16:20:00 98.3 [degF] Common [facility] bmi 2021-10-12 16:20:00 26.92 kg/m2 [facility] oximetry 2021-10-12 16:20:00 96 % [facility] respiratory rate 2021-10-12 16:20:00 16 /min Comm on [facility] blood pressure 2021-10-12 16:20:00 128 mm[Hg] Common [facility] - systolic [facility] blood pressure 2021-10-12 16:20:00 62 mm[Hg] Common [facility] - diastolic [facility] HEIGHT 2021-10-02 10:40:00 147.3 cm WEIGHT 2021-10-02 10:40:00 60.238 kg HEIGHT 2021-10-02 10:40:00 147.3 cm WEIGHT 2021-10-02 10:40:00 60.238 kg height 2021-09-11 15:00:00 58 [in_i] [facility] weight 2021-09-11 15:00:00 135.8 [lb_av] Common [facility] temperature 2021-09-11 15:00:00 97.5 [degF] Common S pirit [facility] bmi 2021-09-11 15:00:00 28.38 kg/m2 Common S [facility] oximetry 2021-09-11 15:00:00 98 % [facility] 2021-09-11 15:00:00 16 /min [facility] blood pressure 2021-09-11 15:00:00 121 mm[Hg] Common [facility] - systolic [facility] blood pressure 2021-09-11 15:00:00 67 mm[Hg] Common [facility] - diastolic [facility] HEIGHT 2021-09-04 22:09:00 149.9 cm WEIGHT 2021-09-04 22:09:00 58.968 kg HEIGHT 2021-09-04 22:09:00 149.9 cm WEIGHT 2021-09-04 22:09:00 58.968 kg height 2021-08-15 13:00:00 58 [in_i] [facility] weight 2021-08-15 13:00:00 136.2 [lb_av] [facility] temperature 2021-08-15 13:00:00 97.8 [degF] Common [facility] bmi 2021-08-15 13:00:00 28.46 kg/m2 [facility] oximetry 2021-08-15 13:00:00 95 % Common S [facility] respiratory rate 2021-08-15 13:00:00 16 /min [facility] blood pressure 2021-08-15 13:00:00 126 mm[Hg] Common [facility] - systolic [facility] blood pressure 2021-08-15 13:00:00 67 mm[Hg] Common [facility] - diastolic [facility] height 2021-08-15 13:40:00 58 [in_i] [facility] weight 2021-08-15 13:40:00 136.2 [lb_av] Common [facility] temperature 2021-08-15 13:40:00 97.8 [degF] [facility] bmi 2021-08-15 13:40:00 28.46 kg/m2 [facility] blood pressure 2021-08-15 13:40:00 126 mm[Hg] Common [facility] - systolic [facility] blood pressure 2021-08-15 13:40:00 67 mm[Hg] Common [facility] - diastolic [facility] HEIGHT 2021-08-12 16:10:00 149.9 cm WEIGHT 2021-08-12 16:10:00 61.5 kg HEIGHT 2021-08-12 16:10:00 149.9 cm WEIGHT 2021-08-12 16:10:00 61.5 kg height 2021-07-18 10:40:00 58 [in_i] [facility] weight 2021-07-18 10:40:00 129.4 [lb_av] [facility] temperature 2021-07-18 10:40:00 97.2 [degF] [facility] bmi 2021-07-18 10:40:00 27.04 kg/m2 [facility] oximetry 2021-07-18 10:40:00 97 % [facility] respiratory rate 2021-07-18 10:40:00 18 /min [facility] blood pressure 2021-07-18 10:40:00 142 mm[Hg] Common [facility] - systolic [facility] blood pressure 2021-07-18 10:40:00 84 mm[Hg] Common [facility] - diastolic [facility] HEIGHT 2021-07-03 08:58:00 147.3 cm WEIGHT 2021-07-03 [...] cm WEIGHT 2020-12-20 10:37:00 57.153 kg Systolic blood 2022-06-29 19:30:00 120 mm[Hg] [facility] Diastolic blood 2022-06-29 19:30:00 92 mm[Hg] [facility] Heart rate 2022-06-29 19:30:00 87 /min [facility] Respiratory rate 2022-06-29 19:30:00 14 /min [facility] Oxygen saturation in 2022-06-29 19:30:00 97 /min [facility] Arterial blood by Medical Ce nter Pulse oximetry Body temperature 2022-06-29 14:50:00 36.94 Mihaela [facility] Body height 2022-06-29 14:50:00 149.9 cm [facility] Body weight 2022-06-29 14:50:00 61.236 kg [facility] BMI 2022-06-29 14:50:00 27.27 kg/m2 [facility] Systolic (mm Hg) 2021-06-29 20:55:00 José Miguel rial García Diastolic (mm Hg) 2021-06-29 20:55:00 [facility] Heart Rate 2021-06-29 20:55:00 [facility] Respitory Rate 2021-06-29 20:55:00 [facility] Height 2021-06-29 20:55:00 147.32 cm [facility] Weight 2021-06-29 20:55:00 [facility] BMI Calculated 2021-06-29 20:55:00 Mem[facility] al [facility] Systolic (mm Hg) 2020-12-27 16:28:00 José Miguel rial [facility] Diastolic (mm Hg) 2020-12-27 16:28:00 Mem [facility] Heart Rate 2020-12-27 16:28:00 [facility] Respitory Rate 2020-12-27 16:28:00 [facility] Height 2020-12-27 16:28:00 147.32 cm [facility] Weight 2020-12-27 16:28:00 [facility] BMI Calculated 2020-12-27 16:28:00 Memori al García Systolic blood 2020 11:18:00 129 mm[Hg] [facility] Diastolic blood 2020 11:18:00 68 mm[Hg] [facility] Body temperature 2020 11:18:00 36.39 Mihaela [facility] Respiratory rate 2020 11:18:00 86 /min [facility] Oxygen saturation in 2020 11:18:00 99 /min [facility] Arterial blood by Medical Ce [facility] Pulse oximetry Heart rate 2020 07:22:00 93 /min [facility] Body height 2020-12-21 14:23:00 147.3 cm [facility] Body weight 2020-12-21 14:23:00 57.153 kg [facility] BMI 2020-12-21 14:23:00 26.33 kg/m2 [facility] Systolic (mm Hg) 2020-11-15 15:02:00 José Miguel [facility] Diastolic (mm Hg) 2020-11-15 15:02:00 Mem [facility] Heart Rate 2020-11-15 15:02:00 [facility] Respitory Rate 2020-11-15 15:02:00 [facility] Height 2020-11-15 15:02:00 147.32 cm [facility] Weight 2020-11-15 15:02:00 [facility] BMI Calculated 2020-11-15 15:02:00 [facility] Systolic (mm Hg) 2020-10-23 19:04:00 José Miguel rial [facility] Diastolic (mm Hg) 2020-10-23 19:04:00 [facility] Heart Rate 2020-10-23 19:04:00 [facility] Height 2020-10-23 19:04:00 149.86 cm [facility] Weight 2020-10-23 19:04:00 [facility] BMI Calculated 2020-10-23 19:04:00 [facility] Height 2020-08-28 16:36:00 147.32 cm [facility] Weight 2020-08-28 16:36:00 [facility] BMI Calculated 2020-08-28 16:36:00 [facility] Systolic (mm Hg) 2020-08-28 16:36:00 José Miguel [facility] Diastolic (mm Hg) 2020-08-28 16:36:00 [facility] Heart Rate 2020-08-28 16:36:00 [facility] Systolic (mm Hg) 2020-08-23 19:19:00 José Miguel [facility] Diastolic (mm Hg) 2020-08-23 19:19:00 [facility] Heart Rate 2020-08-23 19:19:00 [facility] Respitory Rate 2020-08-23 19:19:00 [facility] Height 2020-08-23 19:19:00 147.32 cm [facility] Weight 2020-08-23 19:19:00 [facility] BMI Calculated 2020-08-23 19:19:00 [facility] Procedures Procedure Date / Time Performing Source Performed Clinician AC PANEL 21 + LACTIC ACID 2022-08-29 Khoi Kwan [facility] sity of 17:40:00 [facility] LIPASE 2022-08-29 Khoi Kwan [place] of 17:38:00 [facility] COMP. METABOLIC PANEL (78610) 2022-08-29 Khoi Kwan iversity of 17:38:00 [facility] CBC WITH DIFF 2022-08-29 Khoi Kwan [place] of 17:38:00 [facility] URINALYSIS 2022-08-29 Khoi Kwan [place] of 17:38:00 [facility] URINE DRUG (IMMUNOASSAY) - 2022-08-29 Khoi Kwan [facility] rsity of COMPREHENSIVE DRUG SCREEN W/O 17:38:00 Te [facility] CONSENT/REFUSAL FOR DIAGNOSIS AND 2022-08-29 [facility] 16:44:59 Unassigned, No [facility] COMPREHENSIVE METABOLIC PANEL 2022-06-29 [facility]iddiqui [facility]00 [facility] CBC W/PLT COUNT & AUTO 2022-06-[address] [facility] DIFFERENTIAL 16:28:00 [facility] PT/APTT 2022-06-29 Artur, Haseeb [facility] 16:28:00 [facility] CBC W/PLT COUNT & AUTO 2022-06-[address] [facility] DIFFERENTIAL 16:28:00 [facility] XR FOOT 3 VIEWS LEFT 2022-02-[address] [facility] 19:25:00 [facility] BASIC METABOLIC PANEL 2022-02-[address] [facility] 18:46:00 [facility] CBC W/PLT COUNT & AUTO 2022-02-[address] [facility] DIFFERENTIAL 18:46:00 [facility] B-TYPE NATRIURETIC FACTOR (BNP) 2022-02-[address] [facility] 18:46:00 [facility] HIGH SENSITIVITY TROPONIN I 2022-02-[address] [facility] 18:46:00 [facility] LIPASE 2022-02-[address] [facility] 18:46:00 [facility] HEPATIC FUNCTION PANEL 2022-02-[address] [facility] 18:46:00 [facility] PT/APTT 2022-02-[address] [facility] 18:46:00 [facility] PROTHROMBIN TIME/INR 2022-02-[address] [facility] 18:46:00 [facility] CBC W/PLT COUNT & AUTO 2022-02-[address] [facility] DIFFERENTIAL 18:46:00 [facility] ECG 12-LEAD 2022-02-[address] [facility] 18:39:22 [facility] EKG-SCANNED 2022-02-[address] [facility] 00:00:00 Scanning [facility] CBC W/PLT COUNT & AUTO 2022-02-01 Bassamio Titilola R [facility] DIFFERENTIAL 04:09:00 [facility] HEMOGLOBIN A1C 2022-02-01 Damian Olsenilbrown R [facility] 04:09:00 [facility] CBC W/PLT COUNT & AUTO 2022-02-01 Adsarbjit Titilola R [facility] DIFFERENTIAL 04:09:00 [facility] POCT-GLUCOSE METER 2022-01-[address] [facility] 22:09:00 [facility] CBC W/PLT COUNT & AUTO 2022-01-31 Adio, Titilola R [facility] DIFFERENTIAL 15:45:00 [facility] CBC W/PLT COUNT & AUTO 2022-01-31 Adio, Titilola R [facility] DIFFERENTIAL 15:45:00 [facility] REPORT OF PROCEDURE - ENDOSCOPY 2022-01-[address] [facility] URL 10:59:58 [facility] REPORT OF PROCEDURE - ENDOSCOPY 2022-01-[address] [facility] URL 10:50:17 [facility] EGD, WITH VARICEAL BANDING 2022-01-31 [facility] Wendy [facility] 09:53:00 [facility] SIGMOIDOSCOPY 2022-01-31 [facility] Wendy [facility] 09:53:00 [facility] POCT-GLUCOSE METER 2022-01-31 Raúl, Mcola R [facility] 09:52:00 [facility] US ABDOMEN LIMITED 2022-01-30 Ali, Hiba Ricky [facility] 15:44:00 [facility] CBC W/PLT COUNT & AUTO 2022-01-30 Ali, Hiba Ricky [facility] 04:56:00 [facility] COMPREHENSIVE METABOLIC PANEL 2022-01-30 Ali, Hiba Ricky [facility] 04:56:00 [facility] PROTHROMBIN TIME/INR 2022-01-30 Ali, Hiba [facility] 04:56:00 [facility] CBC W/PLT COUNT & AUTO 2022-01-30 Ali, Hiba Ricky [facility] DIFFER[facility] 04:56:00 [facility] BLOOD CULTURE 2022-01-29 Dadlani, Apaar [facility] 20:03:00 [facility] BLOOD CULTURE 2022-01-29 Dadlani, Apaar [facility] 19:50:00 [facility] XR CHEST 1 VIEW PORTABLE / BEDSIDE 2022-01-29 Dadlani, Apaa r [facility] 17:23:00 [facility] CTA ABDOMEN & PELVIS 2022-01-[address] [facility] 13:20:00 [facility] IRON, TIBC, % SAT. (WITHOUT 2022-01-29 Aris Goodwin [facility] 04:44:00 [facility] FERRITIN 2022-01-[address] [facility] 04:44:00 [facility] VITAMIN B12 2022-01-[address] [facility] 04:44:00 [facility] CBC W/PLT COUNT & AUTO 2022-01-[address] [facility] DIFFER[facility] 04:44:00 [facility] BASIC METABOLIC PANEL 2022-01-29 [facility] 04:44:00 [facility] CBC W/PLT COUNT & AUTO 2022-01-[address] [facility] DIFFERENTIAL 04:44:00 [facility] SARS-COV2/RT-PCR ([facility]) 2022-01-[address] [facility] 20:39:00 [facility] LACTIC ACID, VENOUS 2022-01-[address] [facility] 20:38:00 [facility] BLOOD CULTURE 2022-01-[address] [facility] 17:22:00 [facility] CBC W/PLT COUNT & AUTO 2022-01-[address] [facility] DIFFERENTIAL 17:20:00 [facility] CBC W/PLT COUNT & AUTO 2022-01-[address] [facility] DIFFERENTIAL 17:20:00 [facility] LACTIC ACID, VENOUS 2022-01-[address] [facility] 17:20:00 [facility] COMPREHENSIVE METABOLIC PANEL 2022-01-28 [facility] 17:20:00 [facility] PROTHROMBIN TIME/INR 2022-01-[address] [facility] 17:20:00 [facility] APTT 2022-01-[address] [facility] 17:20:00 [facility] PREPARE LEUKO-REDUCED PLATELETS [address] [facility] 23:54:00 [facility] PREPARE LEUKO-REDUCED RBC [address] [facility] 14:17:00 [facility] CBC W/PLT COUNT & AUTO 2020 Civ[place]unta, [facility]FFER[facility] 05:50:00 [facility] COMPREHENSIVE METABOLIC PANEL [address] [facility] [address] [facility] 05:50:00 [facility] PROTHROMBIN TIME/INR [address] [facility] 05:50:00 [facility] POCT-GLUCOSE METER 2020-12-[address] [facility] 21:16:00 [facility] POCT-GLUCOSE METER 2020-12-[address] [facility] 16:20:00 [facility] REPORT OF PROCEDURE - ENDOSCOPY 2020-12-[address] [facility] 15:42:28 [facility] REPORT OF PROCEDURE - ENDOSCOPY 2020-12-[address] [facility] 15:19:48 [facility] COLONOSCOPY 2020-12-23 [facility] 13:35:00 [facility] ESOPHAGOGASTRODUODENOSCOPY 2020-12-23 Sheikh [facility] (EGD),REMOVAL FOREIGN BODY 13:35:00 [facility] TRANSFUSE LEUKO-REDUCED PLATELETS 2020-12-[address] [facility] 12:42:33 [facility] TYPE AND SCREEN, AUTOMATED 2020-12-23 Marcelino [facility] 08:04:00 [facility] HEMOGLOBIN AND HEMATOCRIT 2020-12-[address] [facility] 05:00:00 [facility] CBC W/PLT COUNT & AUTO 2020-12-[address] [facility] 05:00:00 [facility] COMPREHENSIVE METABOLIC PANEL 2020-12-[address] [facility] 05:00:00 [facility] PROTHROMBIN TIME/INR 2020-12-23 Otis, [facility] 05:00:00 [facility] MAGNESIUM 2020-12-23 Otis, [facility] 05:00:00 [facility] HEMOGLOBIN AND HEMATOCRIT 2020-12-22 Anitraa, [facility] 18:17:00 [facility] POCT-GLUCOSE METER 2020-12-[address] [facility] 05:27:00 [facility] SARS-COV2/RT-PCR ([facility]) 2020-12-[address] [facility] 05:26:00 [facility] CBC W/PLT COUNT & AUTO 2020-12-22 Jose, [facility] 03:59:00 [facility] BASIC METABOLIC PANEL (7) 2020-12-22 [facility] 03:59:00 [facility] HEPATIC FUNCTION PANEL 2020-12-22 Jose, [facility] 03:59:00 [facility] PHOSPHORUS 2020-12-22 Jose, [facility] 03:59:00 [facility] MAGNESIUM 2020-12-22 Jose, [facility] 03:59:00 [facility] POCT-GLUCOSE METER 2020-12-[address] [facility] 01:12:00 [facility] LACTIC ACID, VENOUS 2020-12-[address] [facility] 19:03:00 [facility] PROTHROMBIN TIME/INR 2020-12-[address] [facility] [facility] 19:03:00 [facility] APTT 2020-12-[address] [facility] 19:03:00 [facility] AMMONIA 2020-12-[address] [facility] 19:03:00 [facility] BLOOD CULTURE 2020-12-[address] [facility] 19:02:00 [facility] BASIC METABOLIC PANEL (7) 2020-12-21 Sloane [facility] 15:52:00 [facility] HEPATIC FUNCTION PANEL 2020-12-[address] [facility] 15:52:00 [facility] CBC W/PLT COUNT & AUTO 2020-12-[address] [facility] 15:52:00 [facility] BASIC METABOLIC PANEL (7) 2020-12-20 Plaza, Line [facility] 11:59:00 [facility] HEPATIC FUNCTION PANEL 2020-12-20 Bola, Line [facility] 11:59:00 [facility] CBC W/PLT COUNT & AUTO 2020-12-20 Bola, Line [facility] DIFFERENTIAL 11:59:00 [facility] PROTHROMBIN TIME/INR 2020-12-[address] [facility] 11:59:00 [facility] POCT-GLUCOSE METER 2020-12-13 Halle Kaela-Courtney [facility] 16:31:00 [facility] POCT-GLUCOSE METER 2020-12-13 Halle Fang-Courtney [facility] 11:41:00 [facility] POCT-GLUCOSE METER 2020-12-13 Halle Kaela-Courtney [facility] 07:14:00 [facility] CALCIUM, IONIZED 2020-12-[address] [facility] 03:35:00 [facility] COMPREHENSIVE METABOLIC PANEL 2020-12-[address] [facility] 03:35:00 [facility] MAGNESIUM 2020-12-[address] [facility] 03:35:00 [facility] PHOSPHORUS 2020-12-[address] [facility] 03:35:00 [facility] CBC W/PLT COUNT & AUTO 2020-12-[address] [facility] 03:35:00 [facility] POCT-GLUCOSE METER 2020-12-[address] [facility] 22:16:00 [facility] POCT-GLUCOSE METER 2020-12-12 Ajith, Nejmudin [facility] 16:51:00 [facility] HEMOGLOBIN AND HEMATOCRIT 2020-12-12 Ajith, Nejmudin [facility] 15:58:00 [facility] POCT-GLUCOSE METER 2020-12-12 Ajith, Nejmudin [facility] 11:39:00 [facility] POCT-GLUCOSE METER 2020-12-12 Ajith, Nejmudin [facility] 08:06:00 [facility] CALCIUM, IONIZED 2020-12-[address] [facility] 03:34:00 [facility] COMPREHENSIVE METABOLIC PANEL 2020-12-[address] [facility] 03:34:00 [facility] MAGNESIUM 2020-12-[address] [facility] 03:34:00 [facility] PHOSPHORUS 2020-12-[address] [facility] 03:34:00 [facility] CBC W/PLT COUNT & AUTO 2020-12-[address] [facility] 03:34:00 [facility] PREPARE LEUKO-REDUCED RBC 2020-12-[address] [facility] 23:54:00 [facility] PREPARE LEUKO-REDUCED PLATELETS 2020-12-[address] [facility] 23:54:00 [facility] POCT-GLUCOSE METER 2020-12-[address] [facility] 21:46:00 [facility] HEMOGLOBIN AND HEMATOCRIT 2020-12-[address] [facility] 18:15:00 [facility] POCT-GLUCOSE METER 2020-12-[address] [facility] 17:50:00 [facility] HEPATITIS B E ANTIGEN 2020-12-11 Joesph, Tesdaniellei [facility] 14:50:00 [facility] HEPATITIS B E ANTIBODY 2020-12-11 Joesph, Tesfai [facility] 14:49:00 [facility] HEPATITIS B SURFACE ANTIBODY 2020-12-[address] [facility] 14:49:00 [facility] POCT-GLUCOSE METER 2020-12-[address] [facility] 12:02:00 [facility] POCT-GLUCOSE METER 2020-12-[address] [facility] 07:59:00 [facility] ACTIN (SMOOTH MUSCLE) ANTIBODY, 2020-12-[address] [facility] IGG 05:11:00 [facility] ANTI-MITOCHONDRIAL AB, REFLEX TO 2020-12-[address] [facility] TITER 05:11:00 [facility] CALCIUM, IONIZED 2020-12-[address] [facility] 05:11:00 [facility] COMPREHENSIVE METABOLIC PANEL 2020-12-[address] [facility] 05:11:00 [facility] MAGNESIUM 2020-12-[address] [facility] 05:11:00 [facility] PHOSPHORUS 2020-12-[address] [facility] 05:11:00 [facility] CBC W/PLT COUNT & AUTO 2020-12-[address] [facility] 05:11:00 [facility] MITOCHONDRIAL AB SCREEN 2020-12-[address] [facility] 05:11:00 [facility] MITOCHONDRIAL AB TITER 2020-12-[address] [facility] [facility] 05:11:00 [facility] TRANSFUSE LEUKO-REDUCED PLATELETS 2020-12-[address] [facility] 01:55:57 [facility] PREPARE LEUKO-REDUCED PLATELETS 2020-12-[address] [facility] 23:54:00 [facility] HEMOGLOBIN AND HEMATOCRIT 2020-12-[address] [facility] 23:37:00 [facility] POCT-GLUCOSE METER 2020-12-[address] [facility] 21:39:00 [facility] POCT-GLUCOSE METER 2020-12-[address] [facility] 16:25:00 [facility] REPORT OF PROCEDURE - ENDOSCOPY 2020-12-[address] [facility] URL 16:01:18 [facility] UPPER ENDOSCOPY,BANDING 2020-12-[address] [facility] 15:28:00 [facility] CBC W/PLT COUNT & AUTO 2020-12-[address] [facility] DIFFERENTIAL 13:31:00 [facility] TRANSFUSE LEUKO-REDUCED RED BLOOD 2020-12-10 Miguel Thompson n [facility] CELLS 13:23:55 [facility] POCT-GLUCOSE METER 2020-12-[address] [facility] 11:33:00 [facility] POCT-GLUCOSE METER 2020-12-[address] [facility] 07:09:00 [facility] PROTHROMBIN TIME/INR 2020-12-[address] [facility] 05:12:00 [facility] COMPREHENSIVE METABOLIC PANEL 2020-12-[address] [facility] 05:12:00 [facility] HEMOGLOBIN A1C 2020-12-[address] [facility] 05:12:00 [facility] CALCIUM, IONIZED 2020-12-[address] [facility] 05:12:00 [facility] MAGNESIUM 2020-12-[address] [facility] 05:12:00 [facility] PHOSPHORUS 2020-12-[address] [facility] 05:12:00 [facility] CBC W/PLT COUNT & AUTO 2020-12-[address] [facility] DIFFERENTIAL 05:12:00 [facility] TRANSFUSE LEUKO-REDUCED PLATELETS 2020-12-[address] [facility] 01:43:15 [facility] POCT-GLUCOSE METER 2020-12-[address] [facility] 23:28:00 [facility] US ABDOMINAL WITH DOPPLER 2020-12-[address] [facility] 23:15:00 [facility] ABORH, MANUAL 2020-12-[address] [facility] 20:12:00 [facility] HEMOGLOBIN AND HEMATOCRIT 2020-12-09 [facility] 19:09:00 [facility] TYPE AND SCREEN, AUTOMATED 2020-12-[address] [facility] 19:01:00 [facility] BLOOD CULTURE 2020-12-09 Joesph, Tesfai [facility] 17:17:00 [facility] URINE CULTURE 2020-12-09 Joesph, Tesfai [facility] 17:13:00 [facility] URINALYSIS W/ REFLEX URINE CULTURE 2020-12-09 Joesph, Tesfai [facility] 17:13:00 [facility] AMMONIA 2020-12-[address] [facility] 17:10:00 [facility] BLOOD CULTURE 2020-12-09 Joesph, Tesfai [facility] 17:09:00 [facility] HC LAB HIV-1 AG W/HIV-1&2 AB 2020-12-09 Joesph, Tesfai [facility] 17:09:00 [facility] PULYL-6-WWGVPLWQRMY\\, SERUM 2020-12-09 Joesph, Tesfai [facility] 17:09:00 [facility] ANTI-NUCLEAR ANTIBODY (AARON) 2020-12-09 Joesph, Tesfai [facility] 17:09:00 [facility] HEPATITIS A ANTIBODY, IGG 2020-12-09 Joesph, Tesfai [facility] 17:09:00 [facility] DRUG SCREEN, URINE, TRANSPLANT 2020-12-09 Joesph Alisondaniellei [facility] 15:30:00 [facility] MISCELLANEOUS LAB ORDER 2020-12-[address] [facility] 15:22:00 [facility] CBC W/PLT COUNT & AUTO 2020-12-[address] [facility] DIFFERENTIAL 15:21:00 [facility] COMPREHENSIVE METABOLIC PANEL 2020-12-[address] [facility] 15:21:00 [facility] HEPATITIS B CORE ANTIBODY, TOTAL 2020-12-09 Joesph, Tesfai [facility] 15:21:00 [facility] HEPATITIS C PCR, QUANTITATIVE 2020-12-09 Joesph, Tesfai [facility] 15:21:00 [facility] HEPATITIS PANEL, ACUTE 2020-12-09 Joesph, [facility]ai [facility] 15:21:00 [facility] HEPATITIS B PCR, QUANTITATIVE 2020-12-09 Joesph, Tesfai [facility] 15:21:00 [facility] CARCINOEMBRYONIC ANTIGEN (CEA) 2020-12-09 Joesph, Alisonfai [facility] 15:21:00 [facility] CERULOPLASMIN 2020-12-09 Joesph, Tesfai [facility] 15:21:00 [facility] COPPER 2020-12-09 Joesph, Tesfai [facility] 15:21:00 [facility] FERRITIN 2020-12-09 Joesph, Tesfai [facility] 15:21:00 [facility] ACETAMINOPHEN LEVEL 2020-12-09 Joesph, Tesfai [facility] 15:21:00 [facility] ALPHA FETOPROTEIN (AFP), TUMOR 2020-12-09 Joesph Alisontanvi [facility] MARKER 15:21:00 [facility] CARBOHYDRATE ANTIGEN 19-9 (CA 2020-12-[address] [facility] 19-9) 15:21:00 [facility] VITAMIN D, 25-HYDROXY 2020-12-[address] [facility] 15:21:00 [facility] ZINC 2020-12-09 Joesph, Tesfai [facility] 15:21:00 [facility] IRON, TIBC, % SAT. (WITHOUT 2020-12-09 Joesph, Alisonfai [facility] FERRITIN) 15:21:00 [facility] Arthroscopy [facility] section [facility] Plan of Care Planned Activity Planned Date Details Comments Source Future Scheduled 2030-12-[address] [facility] 00:00[facility]00 malignant ne[facility] of [facility] colon (procedure) [code = 441524724] Future Scheduled 2030-12-[address] [facility] 00:00:00 [facility] colon (procedure) [code = 594245373] Future Scheduled 2030-12-[address] [facility] 00:00:00 malignant ne[facility] colon (procedure) [code = 266294753] Future Scheduled 2024-04-[address] [facility] Test 00:00:00 (procedure) [code = [facility] 16658253] Future Scheduled 2023-01-31 Influenza Vaccine (#1) [facility] 00:00:00 [code = Influenza Medical nter Vaccine (#1)] Future Scheduled 2023-01-01 [facility] 21:32:06 malignant neoplasm of colon (procedure) [code = 432369585] Future Scheduled 2023-01-01 [facility] 21:32:06 malignant neoplasm of colon (procedure) [code = 814375796] Future Scheduled 2023-01-01 [facility] 21:32:06 malignant neoplasm of colon (procedure) [code = 958012756] Future Scheduled 2023-01-01 COVID-19 VACCINE (#1) [facility] Test 21:32:06 [code = COVID-19 VACCINE (#1)] Future Scheduled 2023-01-01 [facility] Test 21:32:06 malignant neoplasm of cervix (procedure) [code = 869489415] Future Scheduled 2023-01-01 BREAST CANCER [facility] Test 21:32:06 SCREENING [code = BREAST CANCER SCREENING] Future Scheduled 2023-01-01 [facility] Test 21:32:06 malignant neoplasm of colon (procedure) [code = 902692201] Future Scheduled 2023-01-01 [facility] Test 21:32:06 malignant neoplasm of colon (procedure) [code = 991034429] Future Scheduled 2023-01-01 SHINGLES VACCINES (1 Met [facility] Test 21:32:06 of 2) [code = SHINGLES VACCINES (1 of 2)] Future Scheduled 2023-01-[address] [facility] Test 21:32:06 [code = ZZZ INFLUENZA VACCINE] Future Scheduled 2022-06-[address] [facility] Test 00:00:00 (12+) [code = [facility] DEPRESSION SCREENING (12+)] Future Scheduled 2021-10-[address] [facility] 00:[facility]00 [facility] (procedure) [code = 73147827] Future Scheduled 2021-10-[address] [facility] Test 00:00:00 WELLNESS (YEAR 2 or Medical Center FIRST YEAR if no IPPE) [code = MEDICARE ANNUAL WELLNESS (YEAR 2 or FIRST YEAR if no IPPE)] Future Scheduled 2021-08-[address] [facility] Test 00:00:00 Counseling and Medical Cente r Screening (12+) [code = Tobacco Cessation Counseling and Screening (12+)] Future Scheduled 2021-01-31 INFLUENZA VACCINE (#1) [facility] 00:00:00 [code = INFLUENZA Medical Ce nter VACCINE (#1)] Future Scheduled 2020-10-[address] [facility] Test 00:00:00 (procedure) [code = [facility] 74854201] Future Scheduled 2020-10-07 COVID-19 VACCINE (2 - [facility] 00:00:00 Booster for [facility] Center series) [code = COVID-19 VACCINE (2 - Booster for Feliz series)] Future Scheduled 2020-09-30 Medicare IPPE (WELCOME [facility] 00:00:00 TO MEDICARE) [code = Medical Center Medicare IPPE (WELCOME TO MEDICARE)] Future Scheduled 2017-12-23 SHINGLES VACCINES ([address] [facility] Test 00:00:00 of 2) [code = SHINGLES Medic al Center VACCINES (1 of 2)] Future Scheduled 2017-12-23 SHINGLES VACCINES ([address] [facility] Test 00:00:00 of 2) [code = SHINGLES Medic al Center VACCINES (1 of 2)] Future Scheduled 2016-03-22 Pneumococcal Vaccine: [facility] Test 00:00:00 0-64 Years (2 - PPSV23 Medic al Center if available, else PCV20) [code = Pneumococcal Vaccine: 0-64 Years (2 - PPSV23 if available, else PCV20)] Future Scheduled 1988-12-[address] [facility] 00:00:00 malignant neoplasm of Medica [facility] Center cervix (procedure) [code = 856014172] Future Scheduled 1988-12-[address] [facility] Test 00:00:00 malignant neoplasm of [facility] Center cervix (procedure) [code = 495485838] Future Scheduled 1986-12-23 DTAP/TDAP/TD VACCINES [facility] Test 00:00:00 (1 - Tdap) [code = Medical C enter DTAP/TDAP/TD VACCINES (1 - Tdap)] Future Scheduled 1986-12-23 DTAP/TDAP/TD VACCINES [facility] Test 00:00:00 (1 - Tdap) [code = Medical C enter DTAP/TDAP/TD VACCINES (1 - Tdap)] Future Scheduled 1977-12-[address] EXAM [facility] Test 00:00:00 [code = DIABETIC EYE Medical Center EXAM] Future Scheduled 1977-12-[address] [facility] Test 00:00:00 examination Medical Center (regime/therapy) [code = 986197952] Future Scheduled 1977-12-23 Urine screening for [facility] Test 00:00:00 protein (procedure) [facility] [code = 023592034] Future Scheduled 1973-12-[address] [facility] Test 00:00:00 0-64 YRS (1 of 1 - Medical C enter PPSV23) [code = PNEUMOCOCCAL VACCINE 0-64 YRS (1 of 1 - PPSV23)] Future Scheduled [address] [facility] Test 00:00:00 malignant neoplasm of [facility] breast (procedure) [code = 572064723] Future Scheduled [address] [facility] Test 00:00:00 malignant neoplasm of Medica l Center breast (procedure) [code = 787374817] Future Scheduled [address] [facility] Test 00:00:00 (combo) [code = CT Medical C enter Colonography (combo)] Future Scheduled [address] [facility] Test 00:00:00 malignant ne[facility] of [facility] colon (procedure) [code = 067055185] Future Scheduled [address] [facility] Test 00:00:00 malignant ne[facility] of [facility] colon (procedure) [code = 063983109] Future Scheduled 1965 Sigmoidoscopy [code [facility] [code = COVID-19 VACCINE (1)] [facility] malignant neoplasm of cervix (procedure) [code = 595736007] Future Scheduled [facility] SCREENING [code = BREAST CANCER [...] Date/Time Type Type Clinicians Facility Department ID 2022-11-[address] [facility] [id number] Common 14:35:01 Phylicia [id number] [facility] 2022-08-23 Outpatient Gonzalez, STLMLC STLMLC [id number] Common 13:15:01 Phylicia [facility] 2022-08-22 Outpatient Gonzalez, STLMLC STLMLC [id number] Common 10:57:01 Phylicia [facility] 2022-06-21 Outpatient Gonzalez, STLMLC STLMLC [id number] Common 11:23:01 Phylicia [facility] 2022-05-21 Outpatient Gonzalez, STLMLC STLMLC [id number] Common 12:53:01 [facility] 2022-05-20 Outpatient Gonzalez, STLMLC STLMLC [id number] Common 14:50:01 [facility] 2022-02-18 Outpatient Gonzalez, STLMLC STLMLC [id number] Common 09:46:01 [facility] 2022-02-07 Outpatient Gonzalez, STLMLC STLMLC [id number] Common 16:35:01 [facility] 2022-01-28 Inpatient ER BRANN, SLE Emergency [id number] [facility] 18:34:00 [facility] 2022-01-21 Outpatient Gonzalez, STLMLC STLMLC [id number] Common 15:59:02 [facility] 2021-11-12 Outpatient Gonzalez, STLMLC STLMLC [id number] Common 13:28:03 Phylicia [facility] 2021-11-07 Outpatient Gonzalez, STLMLC STLMLC [id number] Common 09:53:04 Phylicia [facility] 2021-10-12 Outpatient Gonzalez, STLMLC STLMLC [id number] Common 14:40:01 Phylicia [facility] 2021-08-14 Outpatient Gonzalez, STLMLC STLMLC [id number] Common 09:17:03 Phylicia [facility] 2021-08-13 [facility] [id number] Common 15:16:01 Phylicia [facility] 2021-07-19 Outpatient [facility], [facility] [id number] Common 17:19:00 Phylicia [facility] 2021-07-18 Outpatient Gonzalez, [facility] [id number] Common 10:01:04 Phylicia [facility] 2021-04-17 Outpatient SHAHID JAIN, [facility] Surgery [id number] SLEH 09:20:49 OLGA 2021-04-02 Outpatient Krystal PHELPS [facility] GISaba [id number] Univers 07:49:43 SP ity o f [facility] 2021-04-02 Emergency [facility] [id number] Univers 02:23:15 ity [facility] 2021-04-01 Emergency [facility] [id number] Univers 23:18:10 ity [facility] 2021-04-01 Emergency [facility] [id number] Univers 19:20:57 ity of [facility] 2021-03-31 Emergency [facility] [id number] Univers 07:39:48 ity of [facility] 2021-03-31 Emergency [facility] [id number] Univers 06:08:00 ity [facility] 2021-03-11 Inpatient ER LUIS ENRIQUE, [facility]H Gastro [id number] SLEH 08:43:11 MAHMOUD 2020-12-09 Inpatient ER KEITH, [facility] Gastro [id number] SLEH 13:19:00 LYNDSEY 2022-08-29 2022-08-29 Emergency X AQUILES [facility] ERT [id number] Univers 11:54:00 16:40:00 KHOI urbina [facility] 2022-08-29 2022-08-29 [facility] [id number] Univers 11:54:00 16:40:[address]ER [id number] i [id number] [id number] [facility] [address] 2022-08-29 2022-08-29 Orders Doctor JAMEL [id number] Univers 00:00:00 00:00:00 Only Unassigned, MAGGIE [id number] ity of [place] [facility] [id number] Shaun [id number] [facility] [address] 2022-06-29 2022-06-29 Emergency Haseeb Siddiqui [facility] [id number] 14:51:00 20:24:00 [facility] 2022-06-29 2022-06-[address] [facility] [id number] [facility] 00:[facility]00 00:00:00 [facility] 2022-05-30 2022-05-30 [facility] [id number] Co mmon 00:00:00 00:00:00 [facility] 2022-05-22 2022-05-22 [facility] [id number] Co mmon 00:00:00 00:00:00 VISIT [facility] PT - CHI LEVEL 4 [facility] 2022-04-26 2022-04-26 Telephone Diana [facility] [id number] 00:00:00 00:00:00 [facility] 2022-04-23 2022-04-23 [facility]EL[facility] [id number] Co mmon 00:00:00 00:00:00 [facility] 2022-04-04 2022-04-04 [facility] [id number] Co mmon 00:00:00 00:00:00 [facility] - [facility] 2022-02-28 2022-02-28 Documentat Diana [facility] [id number] [facility] 00:00:00 00:00:00 ion [facility] 2022-02-27 2022-02-27 Documentat Adam [facility] [id number] 00:00:00 00:00:00 [facility] 2022-02-25 2022-02-25 Documentat Adam [facility] [id number] 00:00:00 00:00:00 [facility] 2022-02-25 2022-02-25 Telephone Diana [facility] [id number] 00:00:00 00:00:00 [facility] 2022-02-22 2022-02-22 Telephone Diana [facility] [id number] 00:00:00 00:00:00 [facility] 2022-02-21 2022-02-21 (TEL) [facility] [id number] Co mmon 00:00:00 00:00:00 [facility] 2022-02-20 2022-02-[address] [facility] [id number] Co mmon 00:00:00 00:00:00 VISIT [facility] LEVEL 4 [facility] 2022-02-15 2022-02-15 Emergency Santhakumar [facility] [id number] 17:52:00 22:30:00 , [facility] 2022-02-15 2022-02-15 Emergency ER SLE Emergency [id number] SLEH 17:52:00 17:52:00 2022-02-15 2022-02-[address] [facility] [id number] [facility] 00:[facility]00 00:00:00 [employer] 2022-02-15 2022-02-15 (TEL) [facility] [id number] Co mmon 00:00:00 00:00:00 [facility] 2022-02-11 2022-02-11 Transition ROEL Collins [id number] [id number] Univers 00:00:00 00:00:00 of Care Marcus SERRANO [id number] it [id number] [id number] [facility] [address] 2022-02-06 2022-02-09 Inpatient X HARGROVE, [facility] NO [id number] Univers 20:05:00 17:28:00 PAUL urbina [facility] 2022-02-06 2022-02-09 Hospital Zeynep Mcmahan [facility] 1.2.84 0.114 [id number] Univers 20:05:00 17:28:00 Encounter Paul Hargrove 350.1.13.10 ity of [place] [id number] Barbie COOK [id number] [facility] [address] (CLC) 2022-02-06 2022-02-09 Inpatient X HARGROVE, [facility] NO [id number] Univers 20:05:00 17:28:00 PAUL [facility] 2022-02-07 2022-02-07 Telephone Diana [facility] [id number] 00:00:00 00:00:00 [facility] 2022-01-28 2022-02-01 Hospital Perri Rodriguez [facility] [id number] 18:34:00 11:14:00 Encounter [facility] 2022-01-31 2022-01-31 Surgery Reji [facility] [id number] 10:00:00 11:00:00 Wendy [facility] 2022-01-31 2022-01-31 Anesthesia Neela Sellers [facility] [id number] 10:03:00 10:55:00 Event Roseann Luna [facility] 2022-01-02 2022-01-02 Outpatient EL SLEH SLEH [id number] [facility]H 00:00:00 00:00:00 2021-12-28 2021-12-28 [facility] [id number] Co mmon 00:00:00 00:00:00 [facility] 2021-12-17 2021-12-17 (TEL) STLMLC STLMLC [id number] Co mmon 00:00:00 00:00:00 [facility] 2021-11-26 2021-11-26 Outpatient EL STEFANIE, SLEH SLEH [id number] SLEH 16:36:52 16:36:52 RISE 2021-11-20 2021-11-20 Outpatient EL STEFANIE SLEH SLEH [id number] SLEH 00:00:00 00:00:00 RISE 2021-11-15 2021-11-15 OFFICE STLMLC STLMLC [id number] Co mmon 00:00:00 00:00:00 VISIT Spirit [facility] PT - [facility] LEVEL 4 [facility] 2021-11-14 2021-11-14 Outpatient EL MEGHNA, SLE Surgery [id number] SLEH 10:33:00 12:55:00 SUNEAL 2021-11-08 2021-11-08 (TEL) STLMLC STLMLC [id number] Co mmon 00:00:00 00:00:00 [facility] 2021-11-07 2021-11-07 [id number] [facility] 08:08:14 08:08:14 RISE 2021-10-12 2021-10-12 OFFICE STLMLC STLMLC [id number] Co mmon 00:00:00 00:00:00 VISIT EST Spir it PT LEVEL 3 - [facility] 2021-10-03 2021-10-03 (TEL) STLMLC STLMLC [id number] Co mmon 00:00:00 00:00:00 [facility] 2021-10-02 2021-10-02 Outpatient EL SIDNEY, SLE SLEH [id number] SLEH 07:55:01 23:59:00 ANN 2021-10-02 2021-10-02 Outpatient EL MICHELLE, SLEH SLEH [id number] SLEH 10:31:31 10:31:31 ERIC 2021-10-02 2021-10-02 Outpatient EL SLEH SLEH [id number] SLEH 00:00:00 00:00:00 2021-09-18 2021-09-18 (TEL) STLMLC STLMLC [id number] Co mmon 00:00:00 00:00:00 [facility] 2021-09-11 2021-09-11 OFFICE STLMLC STLMLC [id number] Co mmon 00:00:00 00:00:00 VISIT Spirit ESTAB PT - CHI LEVEL 4 [facility] 2021-09-04 2021-09-06 Inpatient ER SHAY-SUSIE, [facility] Emergency [id number] SLE 22:14:00 18:01:00 SUNG 2021-08-28 2021-08-28 (TEL) STLMLC STLMLC [id number] Co mmon 00:00:00 00:00:00 [facility] 2021-08-15 2021-08-15 OFFICE STLMLC STLMLC [id number] Co mmon 00:00:00 00:00:00 VISIT Spirit ESTAB PT - CHI LEVEL 4 [facility] 2021-08-15 2021-08-15 SUB ANNUAL STLMLC STLMLC [id number] Common 00:00:00 00:00:00 MCR Spirit WELLNESS - CHI VISIT [facility] 2021-08-12 2021-08-13 Emergency ER BHAVESH, [facility] Emergency [id number] SLE 16:14:00 00:17:00 CJ 2021-08-10 2021-08-10 Ambulatory nullFlavo MNA [id number] Memoria 20:45:00 20:45:00 Pre-Reg r Neurology 14 l Nela Mariano 2021-08-10 2021-08-10 Ambulatory nullFlavo MNA [id number] Memoria 20:45:00 20:45:00 Pre-Reg r Neurology 14 l Nela Mariano 2021-08-10 2021-08-10 Outpatient MHIE MHIE [id number] Memoria 14:45:00 14:45:00 14 l García 2021-08-10 2021-08-10 Outpatient JALYN GordilloSCHER [id number] 14:45:00 14:45:00 You Bowden 2021-08-10 2021-08-10 (TEL) STLMLC STLMLC [id number] Co mmon 00:00:00 00:00:00 [facility] 2021-07-23 2021-07-24 Outpt Diag nullFlavo [facility] [id number] Memoria 16:22:00 05:59:00 Services r Outpatient 04 jostin [facility] 2021-07-23 2021-07-24 Outpt Diag nullFlavo [facility] [id number] Memoria 16:22:00 05:59:00 Services r Outpatient 04 l [facility] 2021-07-23 2021-07-23 Outpatient CARSON Gordillo MHOIP [id number] 10:22:00 23:59:00 You See Bowden 2021-07-18 2021-07-[address] [facility] [facility] [id number] Co mmon 00:00:00 00:00:00 VISIT NEW [facility] PT LEVEL 5 - [facility] 2021-07-03 2021-07-03 Outpatient EL SLE SLE [id number] SLEH 11:04:13 11:04:13 2021-07-03 2021-07-03 Outpatient EL SIDNEY, SLE SLE [id number] SLEH 08:52:29 08:52:29 ANN 2021-06-29 2021-06-30 Outpatient nullFlavo MNA [id number] Memoria 21:00:00 05:59:59 r Neurology 12 l [facility] 2021-06-29 2021-06-30 Outpatient nullFlavo MNA [id number] Memoria 21:00:00 05:59:59 r Neurology 12 l [facility] 2021-06-29 2021-06-29 Outpatient JOIE GordilloSCHER MHMISCHER [id number] 15:00:00 23:59:59 You Vika Kal 2021-06-29 2021-06-29 Outpatient STONE RITTER [id number] Memoria 15:00:00 15:00:00 Vika [facility] 2021-05-10 2021-05-12 Phone nullFlavo [facility] [id number] Memoria 21:22:16 05:59:59 Message r Primary 01 [facility] 2021-05-10 2021-05-12 Phone nullFlavo [facility] [id number] Memoria 21:22:16 05:59:59 Message r [address] 2021-05-10 2021-05-11 Outpatient [facility] [id number] 15:22:16 23:59:59 2021-04-12 2021-04-14 Outpatient ER QUEVEDO, SLEH Emergency [id number] SLEH 17:00:00 13:56:00 CLARIDGE 2021-04-12 2021-04-12 Outpatient EL STEFANIE, SLEH SLE [id number] SLEH 12:58:25 16:59:00 RISE 2021-04-12 2021-04-12 Outpatient EL STFEANIE, SLEH SLE [id number] SLEH 08:01:59 12:57:00 RISE 2021-04-12 2021-04-12 Outpatient EL STEFANIE, SLEH SLE [id number] SLEH 08:01:49 12:57:00 RISE 2021-04-12 2021-04-12 Outpatient EL STEFANIE, SLEH SLE [id number] SLEH 08:01:39 12:57:00 RISE 2021-04-12 2021-04-12 Outpatient EL STEFANIE, SLEH SLE [id number] SLEH 08:01:30 08:00:00 RISE 2021-04-11 2021-04-11 Outpatient EL STEFANIE, SLEH SLE [id number] SLEH 12:47:22 23:59:00 RISE 2021-04-11 2021-04-11 Outpatient EL STEFANIE, SLEH SLE [id number] SLEH 12:47:08 23:59:00 RISE 2021-04-11 2021-04-11 Outpatient EL DEE, SLEH SLE [id number] SLEH 11:37:08 11:37:08 ANNMARIE 2021-04-11 2021-04-11 Outpatient EL SLEH SLEH [id number] SLEH 11:19:24 11:19:24 2021-04-11 2021-04-11 Outpatient EL SLEH SLEH [id number] SLEH 07:15:14 07:15:14 2021-04-11 2021-04-11 Outpatient EL SLE SLE [id number] SLEH 07:14:55 07:14:55 2021-04-11 2021-04-11 Outpatient EL SLEH SLEH [id number] SLEH 07:14:31 07:14:31 2021-04-11 2021-04-11 Outpatient EL JAMEL HERNANDEZ SLE SLEH [id number] SLEH 07:14:11 07:14:11 2021-04-11 2021-04-11 Outpatient EL SLE SLE [id number] [facility] 07:13:49 07:13:49 2021-04-11 2021-04-11 Outpatient EL STEFANIE SLE SLE [id number] [facility] 00:00:00 00:00:00 RISE 2021-04-05 2021-04-06 Between nullFlavo [facility] [id number] Memoria 15:08:27 15:08:27 Visit r Primary 04 l Care [facility] 2021-04-05 2021-04-06 Between nullFlavo [facility] [id number] Memoria 15:08:27 15:08:27 Visit r Primary 04 l [facility] 2021-04-05 2021-04-06 Outpatient MG MG [id number] 10:08:27 10:08:27 04 2021-03-23 2021-03-25 Outpatient ER PRIYANKA, [facility] Emergency [id number] [facility] 13:26:00 11:59:00 BEV 2021-03-23 2021-03-23 Outpatient EL BIBI [facility] SLE [id number] [facility] 11:33:16 11:33:16 ZAINAB 2021-03-07 2021-03-10 Inpatient ER GADKAMILLEERLA, [facility] Emergency 20 [id number] [facility] 18:46:00 14:03:00 IGOR 2021-03-08 2021-03-08 Outpatient EL SLE SLE [id number] SLEH 00:00:00 00:00:00 2021-03-07 2021-03-07 Outpatient EL SILVANO SLE SLE [id number] SLEH 12:14:44 18:45:00 JAMEL 2021-02-19 2021-02-19 Outpatient EL [facility] [id number] SLEH 00:00:00 00:00:00 2021-02-14 2021-02-15 Between nullFlavo [facility] [id number] Memoria 18:53:37 18:53:37 Visit r Primary 03 [facility] 2021-02-14 2021-02-15 Between nullFlavo MHMG [id number] Memoria 18:53:37 18:53:37 Visit r Primary 03 [facility] 2021-02-14 2021-02-15 Outpatient MHMG MHMG [id number] 13:53:37 13:53:37 03 2021-02-07 2021-02-07 Outpatient [facility] [id number] SLE 00:00:00 00:00:00 2021-01-30 2021-01-31 Between nullFlavo MHMG [id number] Memoria 21:46:37 21:46:37 Visit r Primary 02 [facility] 2021-01-30 2021-01-31 Between nullFlavo MG [id number] Memoria 21:46:37 21:46:37 Visit r Primary 02 [facility] 2021-01-30 2021-01-31 Outpatient MHMG MG [id number] 16:46:37 16:46:37 02 2021-01-22 2021-01-23 Between nullFlavo MHMG [id number] Memoria 14:35:17 14:35:17 Visit r Primary 01 [facility] 2021-01-22 2021-01-23 Between nullFlavo MHMG [id number] Memoria 14:35:17 14:35:17 Visit r Primary 01 [facility] 2021-01-22 2021-01-23 Outpatient MHMG MHMG [id number] 09:35:17 09:35:17 2021-01-22 2021-01-23 Outpatient nullFlavo MHMG [id number] Memoria 21:00:00 04:59:59 r Primary 13 [facility] 2021-01-22 2021-01-23 Outpatient nullFlavo MHMG [id number] Memoria 21:00:00 04:59:59 r Primary 13 l [facility] 2021-01-22 2021-01-22 Outpatient Skylar-Will MHMG MG [id number] 16:00:00 23:59:59 isAdela 13 2021-01-22 2021-01-22 Outpatient MHIE MHIE [id number] Memoria 16:00:00 16:00:00 13 [facility] 2021-01-01 2021-01-03 Phone nullFlavo MG [id number] Memoria 17:46:17 04:59:59 Message r Primary 00 l [facility] 2021-01-01 2021-01-03 Phone nullFlavo MG [id number] Memoria 17:46:17 04:59:59 Message r Primary 00 l [facility] 2021-01-01 2021-01-02 Outpatient MG MG [id number] 12:46:17 23:59:59 00 2020-12-27 2020-12-28 Outpatient nullFlavo MNA [id number] Memoria 16:15:00 04:59:59 r Neurology 09 l [facility] 2020-12-27 2020-12-28 Outpatient nullFlavo MNA [id number] Memoria 16:15:00 04:59:59 r Neurology 09 l Nela García 2020-12-27 2020-12-27 [id number] 11:15:00 23:59:59 You 09 Kal 2020-12-27 2020-12-27 Outpatient MHIE MHIE [id number] Memoria 11:15:00 11:15:00 09 jostin [facility] 2020-12-21 2020-12-21 Emergency ER SLEH Emergency [id number] SLEH 14:14:00 14:14:00 2020-12-20 2020-12-21 Outpatient nullFlavo MNA [id number] Memoria 21:00:00 04:59:59 r Neurology 11 l Nela Grigsbyann 2020-12-20 2020-12-21 Outpatient nullFlavo MNA [id number] Memoria 21:00:00 04:59:59 r Neurology 11 l Nela Mariano 2020-12-20 2020-12-20 Outpatient JALYN Gordillo IJEOMA [id number] 16:00:00 23:59:59 You 11 Kal 2020-12-20 2020-12-20 Outpatient MHIE MHIE [id number] Memoria 16:00:00 16:00:00 11 jostin Mariano 2020-12-20 2020-12-20 Outpatient SLEH SLEH [id number] SLEH 00:00:00 00:00:00 2020-12-08 2020-12-08 [facility] Medical ICU [id number] CHI 00:00:00 00:00:00 Encounter [facility] 2020-12-06 2020-12-07 Outpt Diag nullFlavo [facility] [id number] Memoria 22:19:00 04:59:00 Services r Outpatient [address] 2020-12-06 2020-12-07 Outpt Diag nullFlavo [facility] [id number] Memoria 22:19:00 04:59:00 Services r Outpatient [address] 2020-12-06 2020-12-06 Outpatient SARAH GordilloOIP MHOIP [id number] 17:19:00 23:59:00 You 03 Kal 2020-12-06 2020-12-06 Ambulatory nullFlavo MNA [id number] Memoria 15:00:00 15:00:00 Pre-Reg r Neurology 10 l Nela Mariano 2020-12-06 2020-12-06 Ambulatory nullFlavo MNA [id number] Memoria 15:00:00 15:00:00 Pre-Reg r Neurology 10 l Nela Mariano 2020-12-06 2020-12-06 Outpatient MHIE MHIE [id number] Memoria 10:00:00 10:00:00 10 jostin Mariano 2020-12-06 2020-12-06 Outpatient JALYN GordilloMISCHANDRÉS [id number] 10:00:00 10:00:00 You Janell Bowden 2020-12-01 2020-12-01 Office NIKOS PhelpsMB [id number] 08:35:38 11:02:59 Visit Kimharikarudykrystal AROR[address] [id number] [id number] [place] [id number] [facility] 2020-12-01 2020-12-01 Outpatient R [facility] [id number] Univers 08:45:00 08:45:00 [facility] 2020-11-15 2020-11-16 Outpatient nullFlavo MNA [id number] Memoria 14:30:00 04:59:59 r Neurology 08 l Nela Mariano 2020-11-15 2020-11-16 Outpatient nullFlavo MNA [id number] Memoria 14:30:00 04:59:59 r Neurology 08 l Nela Mariano 2020-11-15 2020-11-15 Outpatient JALYN GordilloSCHANDRÉS [id number] 09:30:00 23:59:59 You Mickie Bowden 2020-11-15 2020-11-15 Outpatient MHIE MHIE [id number] Memoria 09:30:00 09:30:00 08 jostin García 2020-10-23 2020-10-24 Outpatient nullFlavo MHMG [id number] Memoria 19:00:00 04:59:59 r Primary 06 l [facility] 2020-10-23 2020-10-24 Outpatient nullFlavo MHMG [id number] Memoria 19:00:00 04:59:59 r Primary 06 l [facility] 2020-10-23 2020-10-23 Outpatient Skylar-Will MHMG MHMG [id number] 14:00:00 23:59:59 is, Adela 06 2020-10-23 2020-10-23 Outpatient MHIE MHIE [id number] Memoria 14:00:00 14:00:00 06 jostin García 2020-10-18 2020-10-18 Ambulatory nullFlavo MNA [id number] Memoria 19:00:00 19:00:00 Pre-Reg r Neurology 07 l Nela Mariano 2020-10-18 2020-10-18 Ambulatory nullFlavo MNA [id number] Memoria 19:00:00 19:00:00 Pre-Reg r Neurology 07 l Nela Mariano 2020-10-18 2020-10-18 Outpatient MHIE MHIE [id number] Memoria 14:00:00 14:00:00 07 jostin Mariano 2020-10-18 2020-10-18 [id number] 14:00:00 14:00:00 You Santiago Bowden 2020-10-15 2020-10-15 Emergency X KWAN, [facility] ERT [id number] Univers 13:49:00 18:07:00 [facility] 2020-10-11 2020-10-11 Ambulatory nullFlavo MNA [id number] Memoria 19:15:00 19:15:00 Pre-Reg r Neurology 05 l Nela Mariano 2020-10-11 2020-10-11 Ambulatory nullFlavo MNA [id number] Memoria 19:15:00 19:15:00 Pre-Reg r Neurology 05 l Nela Mariano 2020-10-11 2020-10-11 Outpatient MHIE MHIE [id number] Memoria 14:15:00 14:15:00 05 jostin Mariano 2020-10-11 2020-10-11 Outpatient [id number] 14:15:00 14:15:00 You Rafal Bowden 2020-09-06 2020-09-06 Ambulatory nullFlavo MNA [id number] Memoria 18:00:00 18:00:00 Pre-Reg r Neurology 04 l Nela Mariano 2020-09-06 2020-09-06 Ambulatory nullFlavo MNA [id number] Memoria 18:00:00 18:00:00 Pre-Reg r Neurology 04 l Nela Mariano 2020-09-06 2020-09-06 Outpatient MHIE MHIE [id number] Memoria 13:00:00 13:00:00 04 jostin Mariano 2020-09-06 2020-09-06 Outpatient [id number] 13:00:00 13:00:00 You See Bowden 2020-08-28 2020-08-29 Outpatient nullFlavo MHMG [id number] Memoria 16:30:00 04:59:59 r Primary 03 [facility] 2020-08-28 2020-08-29 Outpatient nullFlavo MHMG [id number] Memoria 16:30:00 04:59:59 r Primary 03 [facility] 2020-08-28 2020-08-28 Outpatient Skylar-Will MHMG MHMG [id number] 11:30:00 23:59:59 is, Adela 03 2020-08-28 2020-08-28 Outpatient MHIE MHIE [id number] Memoria 11:30:00 11:30:00 03 jostin Mariano 2020-08-26 2020-08-26 Outpatient [facility] [id number] Univers 00:00:00 00:00:00 [facility] 2020-08-23 2020-08-24 Outpatient nullFlavo MNA [id number] Memoria 19:15:00 04:59:59 r Neurology 02 l Nela Mariano 2020-08-23 2020-08-24 Outpatient nullFlavo MNA [id number] Memoria 19:15:00 04:59:59 r Neurology 02 l Nela Mariano 2020-08-23 2020-08-23 Outpatient JALYN Gordillo MHMISCHER [id number] 14:15:00 23:59:59 You Krystal Bowden 2020-08-23 2020-08-23 Outpatient MHIE MHIE [id number] Memoria 14:15:00 14:15:00 02 jostin Mariano 2020-08-12 2020-08-12 Outpatient EL MDA ARA [id number] MD 12:07:04 12:07:04 Fred yoo 2020-07-27 2020-07-28 Outpatient nullFlavo MHMG [id number] Memoria 19:30:00 05:59:59 r Primary 01 [facility] 2020-07-27 2020-07-28 Outpatient nullFlavo MHMG [id number] Memoria 19:30:00 05:59:59 r Primary 01 [facility] 2020-07-27 2020-07-27 Outpatient Skylar-Will MHMG MHMG [id number] 13:30:00 23:59:59 Adela brewer 2020-07-27 2020-07-27 Ambulatory nullFlavo MHMG [id number] Memoria 19:30:00 19:30:00 Pre-Reg r Primary 00 l [facility] 2020-07-27 2020-07-27 Ambulatory nullFlavo MHMG [id number] Memoria 19:30:00 19:30:00 Pre-Reg r Primary 00 l [facility] 2020-07-27 2020-07-27 Outpatient MHIE MHIE [id number] Memoria 13:30:00 13:30:00 01 l [facility] 2020-07-27 2020-07-27 Outpatient Skylar-Will MHMG MHMG [id number] 13:30:00 13:30:00 Adela brewer 2019-07-16 2019-07-18 Outpatient U TARAH [facility] NO [id number] Univers 13:36:00 12:15:00 VIC [facility] 2019-06-30 2019-07-04 Inpatient X JUAN JOSE [facility] NO [id number] Univers 17:39:25 13:45:00 MARIVEL [facility] 2019-04-20 2019-04-21 Emergency X ELFEGO [facility] ERT [id number] Univers 19:26:38 00:10:00 NISHA [facility] 2019-02-14 2019-02-19 Inpatient X HASEEB MARTIN [facility] [place] [place] [id number] Univers 13:52:02 12:14:00 [facility] 2019-01-21 2019-01-22 Outpatient X MITZI [facility] NO [id number] Univers 18:13:19 12:17:00 ISAAC [facility] 2018-09-05 2018-09-05 Emergency X GENESIS [facility] ERT [id number] Univers 15:33:18 23:07:00 STEVEN [facility] 2007-04-06 2007-04-06 Outpatient [facility] [id number] Univers 00:00:00 14:24:00 Suman [facility] 2007-03-05 2007-03-05 Outpatient [facility] [id number] Univers 00:00:00 16:59:00 6 [facility] Results Test Description Test Time Test Comments Results Result Comments Source CBC WITH DIFF 2022-08-29 19:15:51 Test Item Value Reference Range Interpretation Comme nts WBC (test code = 6690-2) 5.30 See_Comment [A utomated message] The system which ge nerated this result transmit gaby reference range: 4.30 - 1 1.10 10*3/?L. The reference r mago was not used to interpr et this result as normal/abnor mal. RBC (test code = 789-8) 3.67 See_Comment L [Au tomated message] The system which ge nerated this result transmit gaby reference range: 3.93 - 5 .25 10*6/?L. The reference r mago was not used to interpr et this result as normal/abnor mal. HGB (test code = 718-7) 10.1 g/dL 11.6-15.0 L HCT (test code = 4544-3) 31.6 % 35.7-45.2 L MCV (test code = 787-2) 86.1 fL 80.6-95.5 MCH (test code = 785-6) 27.5 pg 25.9-32.8 MCHC (test code = 786-4) 32.0 g/dL 31.6-35.1 RDW-SD (test code = 95852-2) 50.4 fL 39.0-49.9 H RDW-CV (test code = 788-0) 16.0 % 12.0-15.5 H PLT (test code = 777-3) 45 See_Comment LL [Au tomated message] The system which ge nerated this result transmit gaby reference range: 166 - 35 8 10*3/?L. The reference range was not used to interpret th is result as normal/abnormal . MPV (test code = 68981-3) No t Measured IPF % (test code = 6.6 % 1.3-7.7 Platelet count measured by 8736896219) fluorescence me thod. NRBC/100 WBC (test code = 0.0 See_Comment [ Automated message] The 9221396207) system which Wavesat nerated this result transmit gaby reference range: 0.0 - 10 .0 /100 WBCs. The reference r mago was not used to interpr et this result as normal/abnor mal. NRBC x10^3 (test code = See_Comment [Au tomated message] The 5972864317) system which Wavesat nerated this result transmit gaby reference range: 10*3/?L. The reference range was not u sed to interpret this result as normal/abnormal . GRAN MAT (NEUT) % (test code 66.1 % = 770-8) IMM GRAN % (test code = 0.80 % 6846375211) LYMPH % (test code = 736-9) 21.7 % MONO % (test code = 5905-5) 9.1 % EOS % (test code = 713-8) 2.1 % BASO % (test code = 706-2) 0.2 % GRAN MAT x10^3(ANC) (test 3.51 10*3/uL 1.88-7.09 code = 8604852027) IMM GRAN x10^3 (test code = 0.04 10*3/uL 0.00-0.06 6919189419) LYMPH x10^3 (test code = 1.15 10*3/uL 1.32-3.29 L 731-0) MONO x10^3 (test code = 0.48 10*3/uL 0.33-0.92 742-7) EOS x10^3 (test code = 0.11 10*3/uL 0.03-0.39 711-2) BASO x10^3 (test code = 0.01-0.07 704-7) ELLIPTO/OVAL (test code = 2+ See_Comment A [ Automated message] The 28008-6) system which Wavesat nerated this result transmit gaby reference range: (none). The reference range was not u sed to interpret this result as normal/abnormal . POLYCHROMASIA (test code = 2+ See_Comment [Automated message] The 67684-4) system which Wavesat nerated this result transmit gaby reference range: 2+. The reference range was not u sed to interpret this result as normal/abnormal . SCHISTOCYTES (test code = 1+ A 800-3) SPHEROCYTES (test code = 1+ A 802-9) Lab Interpretation (test Abnormal code = 27744-9) [facility]. METABOLIC PANEL (44400)2022-08-29 19:03:20 Test Item Value Reference Range Interpretation Comments NA (test code = 142 mmol/L 135-145 8604533409) K (test code = 4.2 mmol/L 3.5-5.0 5823717991) CL (test code = 107 mmol/L 98-108 4332336984) CO2 TOTAL (test code = 25 mmol/L 23-31 8948831021) AGAP (test code = 10 2-16 0080092502) BUN (test code = 8 mg/dL 7-23 9510440200) GLUCOSE (test code = 222 mg/dL 70-110 H 2296251011) CREATININE (test code = 0.62 mg/dL 0.50-1.04 1017091851) TOTAL BILI (test code = 1.3 mg/dL 0.1-1.1 H 6504249011) CALCIUM (test code = 9.1 mg/dL 8.6-10.6 0445047172) T PROTEIN (test code = 7.7 g/dL 6.3-8.2 7884011838) ALBUMIN (test code = 4.2 g/dL 3.5-5.0 8418304630) ALK PHOS (test code = 65 U/L 34-122 4388278266) ALTv (test code = 36 U/L 5-35 H 1742-6) AST(SGOT) (test code = 59 U/L 13-40 H 1527422772) eGFR (test code = 100.3 mL/min/1.73m2 5587438551) JULIAN (test code = JULIAN) Association of Glomerular Filtration Rate (GFR) and Staging of Kidney Disease* + --+ --+ ------+| GFR (mL/min/1.73 m2) ?| With Kidney Damage ?| ?Without Kidney Damage+ --------+ --------+ +| ?>90 ?| ?Stage one ?| ? Normal ?+ ---+ ---+ -------+| ?60-89 ?| ?Stage two ?| ? Decreased GFR ? + --+ --+ ------+| ?30-59 ?| ?Stage three ?| ? Stage three ? + --+ --+ ------+| ?15-29 ?| ?Stage four ? | ? Stage four ?+ ---+ ---+ -------+| ?<15 (or dialysis) ? ?| ?Stage five ? | ? Stage five ?+ ---+ ---+ -------+ *Each stage assumes the associated GFR level has been in effect for at least three months. ?Stages 1 to 5, with or without kidney disease, indicate chronic kidney disease. Notes: Determination of stages one and two (with eGFR >59mL/min/1.73 m2) requires estimation of kidney damage for at least three months as defined by structural or functional abnormalities of the kidney, manifested by either:Pathological abnormalities or Markers of kidney damage (including abnormalities in the composition of the blood or urine or abnormalities in imaging tests). Lab Interpretation Abnormal (test code = 32186-2) [facility] Test Item Value Reference Range Interpretation Comments LIPASE (test code = 8975652366) 298 U/L 0-220 H Lab Interpretation (test code = Abnormal 49322-4) [facility] + LACTIC [id number] 18:03:45 Test Item Value Reference Range Interpretation Comments PH (test code = 7.40 7.32-7.42 3921240583) PCO2 TEDDY (test code = 39 See_Comment L [Auto mated 9488421925) message] The sy stem which generated this result transmitted reference range : 41 - 51 mmHg. The reference range was not used to interpret this result as normal/abnormal . PO2 TEDDY (test code = 38 See_Comment [Autom ated 7878974794) message] The sy stem which generated this result transmitted reference range : 25 - 40 mmHg. The reference range was not used to interpret this result as normal/abnormal . HCO3 TEDDY (test code = 24 See_Comment [Auto mated 9420396998) message] The sy stem which generated this result transmitted reference range : 24 - 28 mEq/L. The reference range was not used to interpret this result as normal/abnormal . AC VBE(BEAKER) (test -0.5 mEq/L code = 2728901053) THB TEDDY (test code = 8.6 g/dL 12.0-16.0 L 0931495042) %O2HB TEDDY (test code = 82.3 % 52.0-63.0 H 8888163407) %COHB TEDDY (test code = 0.6 % 0.0-1.5 2259262298) %METHB TEDDY (test code = 0.1 % 0.4-1.5 L 3670088569) VOL%O2 TEDDY (test code = Not resulted. 2190298292) NA (test code = 143 mmol/L 135-145 1749384885) K+ (test code = 3.8 mmol/L 3.5-5.0 1658076834) AC CA IONZ (test code = 4.90 mg/dL 4.50-5.30 8245771514) GLUCOSE (test code = 230 mg/dL 70-110 H 1324476931) LACTIC ACID (test code 2.35 mmol/L 0.50-2.20 H COOXE RR = 0206931688) Lab Interpretation Abnormal (test code = 95156-6) [facility] [id number] 18:17:00 Test Item Value Reference Range Interpretation Comments TOTAL PROTEIN 6.9 gm/dL 6.0-8.3 Specimen sligh tly (BEAKER) (test hemolyzed code = 770) ALBUMIN (BEAKER) 3.5 g/dL 3.5-5.0 Specimen sl ightly (test code = 1145) hemolyzed ALKALINE 86 U/L 40-150 PHOSPHATASE (BEAKER) (test code = 346) BILIRUBIN TOTAL 0.4 mg/dL 0.2-1.2 Specimen sli ghtly (BEAKER) (test hemolyzed code = 377) SODIUM (BEAKER) 142 meq/L 136-145 (test code = 381) POTASSIUM (BEAKER) 4.4 meq/L 3.5-5.1 Specimen slightly (test code = 379) hemolyzed CHLORIDE (BEAKER) 112 meq/L 98-107 H (test code = 382) CO2 (BEAKER) (test 19 meq/L 22-29 L code = 355) BLOOD UREA 11 mg/dL 7-21 NITROGEN (BEAKER) (test code = 354) CREATININE 1.09 mg/dL 0.57-1.25 Specimen slight ly (BEAKER) (test hemolyzed code = 358) GLUCOSE RANDOM 64 mg/dL 70-105 L (BEAKER) (test code = 652) CALCIUM (BEAKER) 9.0 mg/dL 8.4-10.2 (test code = 697) AST (SGOT) 29 U/L 5-34 Specimen slight ly (BEAKER) (test hemolyzed code = 353) ALT (SGPT) 20 U/L 6-55 Specimen slight ly (BEAKER) (test hemolyzed code = 347) EGFR (BEAKER) 60 Interpretatio n of eGFR (test code = 1092) mL/min/1.[address] age Description sq m Result G1 Norm al or high >=90 G2 Mildly decreased 60-89 G3a Mildl y to moderately 45-5 9 G3b Moderately to s everely 30-44 G4 Severl y decreased 15-29 G5 Kidne y failure <15Reported eGF R is based on the CKD-EPI 2020 equation that d oes not use a race coefficientEsti mated GFR is not as accur ate as Creatinine Julieta jayden in predicting glom erular filtration rate . Estimated GFR is not appl icable for dialysis patien ts [employer] Chamber Technician ID - ADMINPT/[id number] 16:56:46 Test Item Value Reference Range Interpretation Comments PROTIME (BEAKER) (test 14.8 seconds 11.9-14.2 H code = 759) INR (BEAKER) (test 1.23 See_Comment [Automat ed code = 370) message] The sy stem which generated this result transmitted reference range : <=5.90. The reference range was not used to interpret this result as normal/abnormal . PARTIAL THROMBOPLASTIN 27.6 seconds 22.5-36.0 TIME (BEAKER) (test code = 760) RECOMMENDED COUMADIN/WARFARIN INR THERAPY RANGESSTANDARD DOSE: 2.0 - 3.0 Includes: PROPHYLAXIS for venous thrombosis, systemic embolization; TREATMENT for venous thrombosis and/or pulmonary embolus.HIGH RISK: Target INR is 2.5-3.5 for patients with mechanical heart valves.CBC W/PLT COUNT & AUTO [id number] 16:45:03 Test Item Value Reference Range Interpretation Comments WHITE BLOOD CELL COUNT (BEAKER) 3.8 K/ L 3.5-10.5 (test code = 775) RED BLOOD CELL COUNT (BEAKER) 3.34 M/ L 3.93-5.22 L (test code = 761) HEMOGLOBIN (BEAKER) (test code = 10.0 GM/DL 11.2-15.7 L 410) HEMATOCRIT (BEAKER) (test code = 30.6 % 34.1-44.9 L 411) MEAN CORPUSCULAR VOLUME (BEAKER) 92 fL 79-95 (test code = 753) MEAN CORPUSCULAR HEMOGLOBIN [...] (test code = 437) NEUTROPHILS ABSOLUTE COUNT 2.13 K/ L 1.56-6.13 (BEAKER) (test code = 670) LYMPHOCYTES ABSOLUTE COUNT 0.92 K/ L 1.18-3.74 L (BEAKER) (test code = 414) MONOCYTES ABSOLUTE COUNT (BEAKER) 0.50 K/ L 0.24-0.36 H (test code = 415) EOSINOPHILS ABSOLUTE COUNT 0.22 K/ L 0.04-0.36 (BEAKER) (test code = 416) BASOPHILS ABSOLUTE COUNT (BEAKER) 0.01 K/ L 0.01-0.08 (test code = 417) IMMATURE GRANULOCYTES-RELATIVE 0.30 % 0.00-1.00 PERCENT (BEAKER) (test code = 2801) RAD, FOOT, MIN 3 VIEWS, [id number] 20:02:00Reason for exam:->ABNORMAL LAB [facility] CENTERName: CHEYENNE GLEASON : 1965 Sex: FFINALREPORT CLINICAL HISTORY: Abnormal lab 3 images of the left foot are submitted without comparison. There is no acute fracture or malalignment. No destructive osseous lesion or radiopaque foreign body is present. Signed: Hi Crowley MDReport Verified Date/Time: 02/15/2022 20:02:45 HIGH SENSITIVITY TROPONIN [id number] 19:45:17 Test Item Value Reference Range Interpretation Comments HIGH SENSITIVITY < pg/ml See_Comment [Automated message] TROPONIN I (test code = The system which 3168576) generated this result transmitted ref erence range: <=17. Th e reference range was not used to interpr et this result as normal/abnormal . [employer] Chamber Technician ID - BSThe CRAFT RECRUITER STAT High Sensitivity Troponin-I results should be used in conjunctionwith other diagnostic information such as ECG, clinical observations and information, and patient symptoms to aid in the diagnosis of SC.B-TYPE NATRIURETIC FACTOR (BNP)2022-02-15 19:45:16 Test Item Value Reference Range Interpretation Comments B-TYPE NATRIURETIC PEPTIDE (BEAKER) 64 pg/mL 0-100 (test code = 700) [facility] Chamber Technician ID - BSBASIC METABOLIC [id number] 19:41:54 Test Item Value Reference Range Interpretation Comments SODIUM (BEAKER) 139 meq/L 136-145 (test code = 381) POTASSIUM 4.5 meq/L 3.5-5.1 (BEAKER) (test code = 379) CHLORIDE (BEAKER) 108 meq/L 98-107 H (test code = 382) CO2 (BEAKER) 21 meq/L 22-29 L (test code = 355) BLOOD UREA 23 mg/dL 7-21 H NITROGEN (BEAKER) (test code = 354) CREATININE 1.43 mg/dL 0.57-1.25 H (BEAKER) (test code = 358) GLUCOSE RANDOM 252 mg/dL 70-105 H (BEAKER) (test code = 652) CALCIUM (BEAKER) 9.5 mg/dL 8.4-10.2 (test code = 697) EGFR (BEAKER) 44 Interpretatio n of eGFR (test code = mL/min/1.73 values Stage De scription 1092) sq m Result G1 Hortensia l or high >=90 G2 Mildly decreased 60-89 G3a Mildl y to moderately 45-5 9 G3b Moderately to s everely 30-44 G4 Severl y decreased 15-29 G5 Kidney failure <15Reported eGF R is based on the CKD-EPI 2020 equation that d oes not use a race coefficientEsti mated GFR is not as accur ate as Creatinine Julieta jayden in predicting glom erular filtration rate . Estimated GFR is not appl icable for dialysis patien ts [employer] [facility] Technician ID - BSHEPATIC FUNCTION [id number] 19:41:54 Test Item Value Reference Range Interpretation Comments TOTAL PROTEIN (BEAKER) (test code = 7.4 gm/dL 6.0-8.3 770) ALBUMIN (BEAKER) (test code = 1145) 3.5 g/dL 3.5-5.0 BILIRUBIN TOTAL (BEAKER) (test code 0.7 mg/dL 0.2-1.2 = 377) BILIRUBIN DIRECT (BEAKER) (test 0.4 mg/dL 0.1-0.5 code = 706) ALKALINE PHOSPHATASE (BEAKER) (test 111 U/L 40-150 code = 346) AST (SGOT) (BEAKER) (test code = 41 U/L 5-34 H 353) ALT (SGPT) (BEAKER) (test code = 98 U/L 6-55 H 347) [facility] Technician ID - [id number] 19:41:54 Test Item Value Reference Range Interpretation Comments LIPASE (BEAKER) (test code = 749) 81 U/L 8-78 H [facility] Technician ID - [id number] 19:31:34 Test Item Value Reference Range Interpretation Comments PROTIME (BEAKER) (test 15.3 seconds 11.9-14.2 H code = 759) INR (BEAKER) (test 1.28 See_Comment [Automat ed code = 370) message] The sy stem which generated this result transmitted reference range : <=5.90. The reference range was not used to interpret this result as normal/abnormal . PARTIAL THROMBOPLASTIN 28.8 seconds 22.5-36.0 TIME (BEAKER) (test code = 760) RECOMMENDED COUMADIN/WARFARIN INR THERAPY RANGESSTANDARD DOSE: 2.0 - 3.0 Includes: PROPHYLAXIS for venous thrombosis, systemic embolization; TREATMENT for venous thrombosis and/or pulmonary embolus.HIGH RISK: Target INR is 2.5-3.5 for patients with mechanical heart valves.PROTHROMBIN TIME/[id number] 19:30:50 Test Item Value Reference Range Interpretation Comments PROTIME (BEAKER) 15.3 seconds 11.9-14.2 H (test code = 759) INR (BEAKER) (test 1.28 See_Comment [Automat ed message] code = 370) The system [employer] generated this result transmitted ref erence range: <=5.90. The reference range was not used to int erpret this result as normal/abnormal . RECOMMENDED COUMADIN/WARFARIN INR THERAPY RANGESSTANDARD DOSE: 2.0 - 3.0 Includes: PROPHYLAXIS for venous thrombosis, systemic embolization; TREATMENT for venous thrombosis and/or pulmonary embolus.HIGH RISK: Target INR is 2.5-3.5 for patients with mechanical heart valves.CBC W/PLT COUNT & AUTO [id number] 19:23:47 Test Item Value Reference Range Interpretation Comments WHITE BLOOD CELL COUNT 4.9 K/ L 3.5-10.5 (BEAKER) (test code = 775) RED BLOOD CELL COUNT 3.63 M/ L 3.93-5.22 L (BEAKER) (test code = 761) HEMOGLOBIN (BEAKER) 10.2 GM/DL 11.2-15.7 L (test code = 410) HEMATOCRIT (BEAKER) 32.7 % 34.1-44.9 L (test code = 411) MEAN CORPUSCULAR VOLUME 90.1 fL 79.4-94.8 (BEAKER) (test code = 753) MEAN CORPUSCULAR 28.1 pg 25.6-32.2 HEMOGLOBIN (BEAKER) (test code = 751) MEAN CORPUSCULAR 31.2 GM/DL 32.2-35.5 L HEMOGLOBIN CONC (BEAKER) (test code = 752) RED CELL DISTRIBUTION 20.4 % 11.7-14.4 H WIDTH (BEAKER) (test code = 412) PLATELET COUNT (BEAKER) 33 K/CU MM 150-450 L (test code = 756) MEAN PLATELET VOLUME Unable to report due (BEAKER) (test code = to abn ormal Platelet 754) population distribution. NUCLEATED RED BLOOD 0 /100 WBC 0-0 CELLS (BEAKER) (test code = 413) NEUTROPHILS RELATIVE 68 % PERCENT (BEAKER) (test code = 429) LYMPHOCYTES RELATIVE 15 % PERCENT (BEAKER) (test code = 430) MONOCYTES RELATIVE 14 % PERCENT (BEAKER) (test code = 431) EOSINOPHILS RELATIVE 3 % PERCENT (BEAKER) (test code = 432) BASOPHILS RELATIVE 0 % PERCENT (BEAKER) (test code = 437) NEUTROPHILS ABSOLUTE 3.31 K/ L 1.56-6.13 COUNT (BEAKER) (test code = 670) LYMPHOCYTES ABSOLUTE 0.73 K/ L 1.18-3.74 L COUNT (BEAKER) (test code = 414) MONOCYTES ABSOLUTE 0.69 K/ L 0.24-0.36 H COUNT (BEAKER) (test code = 415) EOSINOPHILS ABSOLUTE 0.13 K/ L 0.04-0.36 COUNT (BEAKER) (test code = 416) BASOPHILS ABSOLUTE 0.01 K/ L 0.01-0.08 COUNT (BEAKER) (test code = 417) IMMATURE 0 % 0-1 GRANULOCYTES-RELATIVE PERCENT (BEAKER) (test code = 2801) BLOOD [id number] 21:00:55 Test Item Value Reference Range Interpretation Comments CULTURE (BEAKER) (test No growth in 5 days code = 1095) The specimen volume collected for this blood culture was below the optimum (10 mL per bottle or 20 mL total). Use of lower volumes may adversely affect recovery and/or detection times of some organisms.BLOOD [id number] 21:00:55 Test Item Value Reference Range Interpretation Comments CULTURE (BEAKER) (test No growth in 5 days code = 1095) BLOOD [id number] 18:00:48 Test Item Value Reference Range Interpretation Comments CULTURE (BEAKER) (test No growth in 5 days code = 1095) The specimen volume collected for this blood culture was below the optimum (10 mL per bottle or 20 mL total). Use of lower volumes may adversely affect recovery and/or detection times of some organisms.BLOOD [id number] 18:00:48 Test Item Value Reference Range Interpretation Comments CULTURE (BEAKER) (test No growth in 5 days code = 1095) The specimen volume collected for this blood culture was below the optimum (10 mL per bottle or 20 mL total). Use of lower volumes may adversely affect recovery and/or detection times of some organisms.HEMOGLOBIN [id number] 08:29:58 Test Item Value Reference Range Interpretation Comments HEMOGLOBIN A1C 7.3 % See_Comment H [Automated m essage] ELECTROPHORESIS (BEAKER) The system which (test code = 3811) generated this result transmitted ref erence range: <=5.6%. The reference range was not used to int erpret this result as normal/abnormal . "The A1c is measured using a [facility]-certified method. HbA1c value equal to or greater than 6.5% as thediagnosis cutoff for diabetes. An HbA1c value of 5.7- 6.4% indicates increased risk for diabetes (prediabetes)."Altitude Chamber Technician ID - ADMCBC W/PLT COUNT & AUTO [id number] 04:43:44 Test Item Value Reference Range Interpretation Comments WHITE BLOOD CELL COUNT (BEAKER) 3.9 K/ L 3.5-10.5 (test code = 775) RED BLOOD CELL COUNT (BEAKER) 3.23 M/ L 3.93-5.22 L (test code = 761) HEMOGLOBIN (BEAKER) (test code = 8.6 GM/DL 11.2-15.7 L 410) HEMATOCRIT (BEAKER) (test code = 27.5 % 34.1-44.9 L 411) MEAN CORPUSCULAR VOLUME (BEAKER) 85.1 fL 79.4-94.8 (test code = 753) MEAN CORPUSCULAR HEMOGLOBIN 26.6 pg 25.6-32.2 (BEAKER) (test code = 751) MEAN CORPUSCULAR HEMOGLOBIN CONC 31.3 GM/DL 32.2-35.5 L (BEAKER) (test code = 752) RED CELL DISTRIBUTION WIDTH 17.2 % 11.7-14.4 H (BEAKER) (test code = 412) PLATELET COUNT (BEAKER) (test code 37 K/CU MM 150-450 L = 756) MEAN PLATELET VOLUME (BEAKER) 10.6 fL 9.4-12.3 (test code = 754) NUCLEATED [...] (test code = 437) NEUTROPHILS ABSOLUTE COUNT 2.34 K/ L 1.56-6.13 (BEAKER) (test code = 670) LYMPHOCYTES ABSOLUTE COUNT 0.91 K/ L 1.18-3.74 L (BEAKER) (test code = 414) MONOCYTES ABSOLUTE COUNT (BEAKER) 0.53 K/ L 0.24-0.36 H (test code = 415) EOSINOPHILS ABSOLUTE COUNT 0.08 K/ L 0.04-0.36 (BEAKER) (test code = 416) BASOPHILS ABSOLUTE COUNT (BEAKER) 0.01 K/ L 0.01-0.08 (test code = 417) IMMATURE GRANULOCYTES-RELATIVE 0 % 0-1 PERCENT (BEAKER) (test code = 2801) POC-Glucose [id number] 22:21:07 Test Item Value Reference Range Interpretation Comments POC-Glucose Meter (test 214 mg/dL 70-110 H : TE STED AT [facility] code = 1538) [address] [facility] [place] [address]: Altitude Chamber Technician/Techni sanjeev ID = [id number] for BRANDAN CARBAJAL EY Lab Interpretation (test Abnormal code = 03772-4) [facility] [id number] 22:21:07 Test Item Value Reference Range Interpretation Comments POC-GLUCOSE METER 214 mg/dL 70-110 H : TESTED A T [facility] [address] (BEAKER) (test code = MIC[place], 1538) [address]: Altitude Chamber Technician/Techni sanjeev ID = [id number] for NGOZI HAYNES CBC W/PLT COUNT & AUTO [id number] 15:54:31 Test Item Value Reference Range Interpretation Comments WHITE BLOOD CELL COUNT (BEAKER) 3.4 K/ L 3.5-10.5 L (test code = 775) RED BLOOD CELL COUNT (BEAKER) 3.51 M/ L 3.93-5.22 L (test code = 761) HEMOGLOBIN (BEAKER) (test code = 9.1 GM/DL 11.2-15.7 L 410) HEMATOCRIT (BEAKER) (test code = 29.2 % 34.1-44.9 L 411) MEAN CORPUSCULAR VOLUME (BEAKER) 83.2 fL 79.4-94.8 (test code = 753) MEAN CORPUSCULAR HEMOGLOBIN 25.9 pg 25.6-32.2 (BEAKER) (test code = 751) MEAN CORPUSCULAR HEMOGLOBIN CONC 31.2 GM/DL 32.2-35.5 L (BEAKER) (test code = 752) RED CELL DISTRIBUTION WIDTH 17.5 % 11.7-14.4 H (BEAKER) (test code = 412) PLATELET COUNT (BEAKER) (test code 35 K/CU MM 150-450 L = 756) MEAN PLATELET VOLUME (BEAKER) 10.4 fL 9.4-12.3 (test code = 754) NUCLEATED [...] (test code = 670) LYMPHOCYTES ABSOLUTE COUNT 0.88 K/ L 1.18-3.74 L (BEAKER) (test code = 414) MONOCYTES ABSOLUTE COUNT (BEAKER) 0.39 K/ L 0.24-0.36 H (test code = 415) EOSINOPHILS ABSOLUTE COUNT 0.05 K/ L 0.04-0.36 (BEAKER) (test code = 416) BASOPHILS ABSOLUTE COUNT (BEAKER) 0.01 K/ L 0.01-0.08 (test code = 417) IMMATURE GRANULOCYTES-RELATIVE 1 % 0-1 PERCENT (BEAKER) (test code = 2801) CT, CTA [id number] 11:04:00GI protocolUnlisted Reason for Exam - Click Yes and Enter Reason Below->YesUnlisted Reason for Exam->Abdominal pain [facility]NE [facility]LE[facility]ON : 1965 Sex: FFINALREPORT TECHNIQUE: CT of the abdomen and pelvis WITHOUT and WITH intravenous contrast and WITHOUT oral contrast. Dose modulation, iterative reconstruction, and/or weight-based adjustment of the mA/kV was utilized to reduce the radiation dose to as low as reasonably achievable. INDICATION: Unlisted Reason for ExamAbdominal pain. COMPARISON: CT is dating back to 03/07/2021. MRI from 10/02/2021. FINDINGS: LOWER THORAX: The fluid and the heart is lower density than the myocardium, consistent with anemia. HEPATOBILIARY: The liver is nodular and cirrhotic. There is volume loss and hypoenhancement in segment IV, consistent with focal fibrosis. Several stones layer in the gallbladder. Thegallbladder wall thickening is similar to prior examinations and likely related to liver disease. Nobiliary ductal dilatation.SPLEEN: 15.5 cm splenomegaly.PANCREAS: No focal masses or ductal dilatation. ADRENALS: No adrenal nodules.KIDNEYS/URETERS: No hydronephrosis, stones, or masses.PELVIC ORGANS/BLADDER: Unremarkable. PERITONEUM/RETROPERITONEUM: No free air or fluid.LYMPH NODES: There are severalenlarged retroperitoneal lymph nodes which measure up to 1 cm in short axis dimension in the aortocaval region on axial image 78, unchanged from 03/07/2021.VESSELS: Moderate aortoiliac calcification. The right hepatic artery originates directly from the celiac axis. Moderate aortoiliac atherosclerosis.The main portal vein is patent and measures 1.7 cm in diameter. GI TRACT: The cecum is thickened. Diffuse thickening of the gastric, duodenal, and proximal jejunal asif. BONES AND SOFT TISSUES: Old, healed right posterior 10th rib fracture. Subacute, healing right posterior 11th and 12th rib fractures. There is near-complete compression deformity of the L1 vertebral body with moderate retropulsion, unchanged from prior examinations. IMPRESSION: 1.No active extravasation of contrast to suggest active gastrointestinal hemorrhage. 2.The cecum is thickened. This is from an indeterminate cause. This could be due to portal hypertension, but a cecal mass and cecal colitis cannot be entirely excluded. Ifthe patient has not had a recent colonoscopy, one should be considered. 3.The diffuse thickening of the, duodenal, and proximal jejunal asif is most likely due to portal hypertension. 4.Cirrhosis withsequelae of portal hypertension including splenomegaly and moderate sized esophageal varices. 5.The enlarged retroperitoneal lymph nodes are unchanged from 03/07/2021. These are most likely reactive given the stability. 6.Cholelithiasis Signed: Damon Cormier MDReport Verified Date/Time: 01/31/2022 11:04:04 Reading Location: [facility] C013Y CT Body Reading Room POCT-GLUCOSE [id number] 10:05:22 Test Item Value Reference Range Interpretation Comments POC-GLUCOSE METER 189 mg/dL 70-110 H : TESTED A T [facility] 6720 (BEAKER) (test code = [place]BAI[place], 1538) [address]: Altitude Chamber Technician/Techni sanjeev ID = [id number] for TO RREG, SEPTEMBER U/S, ABDOMINAL, [id number] 09:27:00Labs to be ordered:->Body Fluid Culture (w/Gram Stain, C\\T\\S) Labs to be ordered:->Cell Count Reason for exam:->abdominal distention, fever, cirrhosis [facility] : 1965 Sex: FFINALREPORT History: Ascites. PROCEDURE: Limited sonographic examination of the abdomen was performed in preparation for planned ultrasound-guided paracentesis. Limited sonographic examination of the abdomen showed only a trace amount of fluid, primarily in the right lower quadrant. Therefore, paracentesis was not performed. IMPRESSION: 1. Trace ascites, not enough for planned paracentesis. Signed: Beto Villafana Verified Date/Time: 01/31/2022 09:27:38 Reading Location: [address] Ultrasound Reading Room COMPREHENSIVE METABOLIC [id number] 06:48:48 Test Item Value Reference Range Interpretation Comments TOTAL PROTEIN 7.0 gm/dL 6.0-8.3 (BEAKER) (test code = 770) ALBUMIN (BEAKER) 3.6 g/dL 3.5-5.0 (test code = 1145) ALKALINE 87 U/L 40-150 PHOSPHATASE (BEAKER) (test code = 346) BILIRUBIN TOTAL 0.6 mg/dL 0.2-1.2 (BEAKER) (test code = 377) SODIUM (BEAKER) 138 meq/L 136-145 (test code = 381) POTASSIUM (BEAKER) 4.1 meq/L 3.5-5.1 (test code = 379) CHLORIDE (BEAKER) 109 meq/L 98-107 H (test code = 382) CO2 (BEAKER) (test 22 meq/L 22-29 code = 355) BLOOD UREA 7 mg/dL 7-21 NITROGEN (BEAKER) (test code = 354) CREATININE 0.94 mg/dL 0.57-1.25 (BEAKER) (test code = 358) GLUCOSE RANDOM 110 mg/dL 70-105 H (BEAKER) (test code = 652) CALCIUM (BEAKER) 9.4 mg/dL 8.4-10.2 (test code = 697) AST (SGOT) 29 U/L 5-34 (BEAKER) (test code = 353) ALT (SGPT) 29 U/L 6-55 (BEAKER) (test code = 347) EGFR (BEAKER) 72 Interpretatio n of eGFR (test code = 1092) mL/min/1.[address] age Description sq m Result G1 Norm al or high >=90 G2 Mildly decreased 60-89 G3a Mildl y to moderately 45-5 9 G3b Moderately to s everely 30-44 G4 Severl y decreased 15-29 G5 Kidney failure <15Reported eGF R is based on the CKD-EPI 202 equation that d oes not use a race coefficientEsti mated GFR is not as accur ate as Creatinine Julieta carpenter in predicting glom erular filtration rate . Estimated GFR is not appl icable for dialysis patien ts Altitude Chamber Technician ID - MAGDIEL MPROTHROMBIN TIME/[id number] 05:27:08 Test Item Value Reference Range Interpretation Comments PROTIME (BEAKER) 16.0 seconds 11.9-14.2 H (test code = 759) INR (BEAKER) (test 1.30 See_Comment [Automat ed message] code = 370) The system [employer] generated this result transmitted ref erence range: <=5.90. The reference range was not used to int erpret this result as normal/abnormal . RECOMMENDED COUMADIN/WARFARIN INR THERAPY RANGESSTANDARD DOSE: 2.0 - 3.0 Includes: PROPHYLAXIS for venous thrombosis, systemic embolization; TREATMENT for venous thrombosis and/or pulmonary embolus.HIGH RISK: Target INR is 2.5-3.5 for patients with mechanical heart valves.CBC W/PLT COUNT & AUTO [id number] 05:24:23 Test Item Value Reference Range Interpretation Comments WHITE BLOOD CELL COUNT (BEAKER) 3.9 K/ L 3.5-10.5 (test code = 775) RED BLOOD CELL COUNT (BEAKER) 3.49 M/ L 3.93-5.22 L (test code = 761) HEMOGLOBIN (BEAKER) (test code = 8.9 GM/DL 11.2-15.7 L 410) HEMATOCRIT (BEAKER) (test code = 29.7 % 34.1-44.9 L 411) MEAN CORPUSCULAR VOLUME (BEAKER) 85.1 fL 79.4-94.8 (test code = 753) MEAN CORPUSCULAR HEMOGLOBIN 25.5 pg 25.6-32.2 L (BEAKER) (test code = 751) MEAN CORPUSCULAR HEMOGLOBIN CONC 30.0 GM/DL 32.2-35.5 L (BEAKER) (test code = 752) RED CELL DISTRIBUTION WIDTH 17.5 % 11.7-14.4 H (BEAKER) (test code = 412) PLATELET COUNT (BEAKER) (test code 34 K/CU MM 150-450 L = 756) MEAN PLATELET VOLUME (BEAKER) 10.9 fL 9.4-12.3 (test code = 754) NUCLEATED [...] (test code = 437) NEUTROPHILS ABSOLUTE COUNT 2.33 K/ L 1.56-6.13 (BEAKER) (test code = 670) LYMPHOCYTES ABSOLUTE COUNT 0.82 K/ L 1.18-3.74 L (BEAKER) (test code = 414) MONOCYTES ABSOLUTE COUNT (BEAKER) 0.52 K/ L 0.24-0.36 H (test code = 415) EOSINOPHILS ABSOLUTE COUNT 0.17 K/ L 0.04-0.36 (BEAKER) (test code = 416) BASOPHILS ABSOLUTE COUNT (BEAKER) 0.01 K/ L 0.01-0.08 (test code = 417) IMMATURE GRANULOCYTES-RELATIVE 1 % 0-1 PERCENT (BEAKER) (test code = 2801) RAD, CHEST, 1 VIEW, NON [id number] 22:17:00Reason for exam:->feverShould this be performed at the bedside?->Yes [facility] : 1965 Sex: FFINALREPORT TECHNIQUE: Frontal view of the chest. INDICATION: fever. COMPARISON: 09/04/2021. FINDINGS: LINES/TUBES: None. HEART AND MEDIASTINUM: Cardiomediastinal contour is within normallimits. LUNGS: The lungs are well inflated and clear. No consolidation or pulmonary edema. PLEURA: No pneumothorax. No significant pleural effusion. SOFT TISSUES AND BONES: Unremarkable. IMPRESSION:No acute cardiopulmonary process. Signed: Jose Alberto Catalan MDReport Verified Date/Time: 01/29/2022 22:17:14 VITAMIN [id number] 06:18:30 Test Item Value Reference Range Interpretation Comments VITAMIN B12 (BEAKER) (test code = 430 pg/mL [id number] 774) Altitude Chamber Technician ID - DENA [id number] 06:18:30 Test Item Value Reference Range Interpretation Comments FERRITIN (BEAKER) (test code = 11.30 ng/mL 5.00-275.00 361) Altitude Chamber Technician ID - DENA LBASIC METABOLIC [id number] 06:10:41 Test Item Value Reference Range Interpretation Comments SODIUM (BEAKER) 140 meq/L 136-145 (test code = 381) POTASSIUM 4.0 meq/L 3.5-5.1 (BEAKER) (test code = 379) CHLORIDE (BEAKER) 111 meq/L 98-107 H (test code = 382) CO2 (BEAKER) 20 meq/L 22-29 L (test code = 355) BLOOD UREA 10 mg/dL 7-21 NITROGEN (BEAKER) (test code = 354) CREATININE 1.08 mg/dL 0.57-1.25 (BEAKER) (test code = 358) GLUCOSE RANDOM 151 mg/dL 70-105 H (BEAKER) (test code = 652) CALCIUM (BEAKER) 9.2 mg/dL 8.4-10.2 (test code = 697) EGFR (BEAKER) 61 Interpretatio n of eGFR (test code = mL/min/1.73 values Stage De scription 1092) sq m Result G1 Hortensia l or high >=90 G2 Mildly decreased 60-89 G3a Mildl y to moderately 45-5 9 G3b Moderately to s everely 30-44 G4 Severl y decreased 15-29 G5 Kidney failure <15Reported eGF R is based on the CKD-EPI 2020 equation that d oes not use a race coefficientEsti mated GFR is not as accur ate as Creatinine Julieta jayden in predicting glom erular filtration rate . Estimated GFR is not appl icable for dialysis patien ts Altitude Chamber Technician ID Joaquin ROMAN, TIBC, % SAT. (WITHOUT FERRITIN)2022-01-29 06:04:58 Test Item Value Reference Range Interpretation Comments IRON (BEAKER) (test code = 547) 49.0 ug/dL 40.0-160.0 TOTAL IRON BINDING CAPACITY 398 ug/dL 250-450 (BEAKER) (test code = 769) IRON % SATURATION (2) (BEAKER) 12 % 20-55 L (test code = 2590) Altitude Chamber Technician YOSEF FERNANDES LCBC W/PLT COUNT & AUTO [id number] 05:35:36 Test Item Value Reference Range Interpretation Comments WHITE BLOOD CELL COUNT 3.4 K/ L 3.5-10.5 L (BEAKER) (test code = 775) RED BLOOD CELL COUNT 3.27 M/ L 3.93-5.22 L (BEAKER) (test code = 761) HEMOGLOBIN (BEAKER) 8.7 GM/DL 11.2-15.7 L (test code = 410) HEMATOCRIT (BEAKER) 27.8 % 34.1-44.9 L (test code = 411) MEAN CORPUSCULAR VOLUME 85.0 fL 79.4-94.8 (BEAKER) (test code = 753) MEAN CORPUSCULAR 26.6 pg 25.6-32.2 HEMOGLOBIN (BEAKER) (test code = 751) MEAN CORPUSCULAR 31.3 GM/DL 32.2-35.5 L HEMOGLOBIN CONC (BEAKER) (test code = 752) RED CELL DISTRIBUTION 17.7 % 11.7-14.4 H WIDTH (BEAKER) (test code = 412) PLATELET COUNT (BEAKER) 30 K/CU MM 150-450 L (test code = 756) MEAN PLATELET VOLUME Unable to report due (BEAKER) (test code = to abn ormal Platelet 754) population distribution. NUCLEATED RED BLOOD 0 /100 WBC 0-0 CELLS (BEAKER) (test code = 413) NEUTROPHILS RELATIVE 60 % PERCENT (BEAKER) (test code = 429) LYMPHOCYTES RELATIVE 25 % PERCENT (BEAKER) (test code = 430) MONOCYTES RELATIVE 12 % PERCENT (BEAKER) (test code = 431) EOSINOPHILS RELATIVE 4 % PERCENT (BEAKER) (test code = 432) BASOPHILS RELATIVE 0 % PERCENT (BEAKER) (test code = 437) NEUTROPHILS ABSOLUTE 2.04 K/ L 1.56-6.13 COUNT (BEAKER) (test code = 670) LYMPHOCYTES ABSOLUTE 0.84 K/ L 1.18-3.74 L COUNT (BEAKER) (test code = 414) MONOCYTES ABSOLUTE 0.40 K/ L 0.24-0.36 H COUNT (BEAKER) (test code = 415) EOSINOPHILS ABSOLUTE 0.12 K/ L 0.04-0.36 COUNT (BEAKER) (test code = 416) BASOPHILS ABSOLUTE 0.01 K/ L 0.01-0.08 COUNT (BEAKER) (test code = 417) IMMATURE 0 % 0-1 GRANULOCYTES-RELATIVE PERCENT (BEAKER) (test code = 2801) SARS-CoV2/RT-PCR (Asymptomatic ONLY)2022-01-28 22:48:12 Test Item Value Reference Interpretation Comments Range SARS-COV2/RT-PCR Negative Negative The SARS-Co V-2 (test code = target nucleic 05598-8) acids are not detected in thi s specimen. Negat kimberly results do not preclude SARS-C oV-2 infection and should not be u sed as the sole bas is for patient management decisions. Nega tive results must be combined with clinical observations, patient history , and epidemiolog ical information. A false negative result may occu r if a specimen is improperly collected, transported or handled. This S ARS CoV-2 test is a rapid, real-sukhdev e RT-PCR test intended for e qualitative detection of nucleic acid fr om SARS-CoV-2 in a nasopharyngeal swab specimen collec gaby from individual s suspected of COVID-19 by the ir healthcare provider. JULIAN (test code = This test has been JULIAN) authorized by FDA under an EUA for use by authorized laboratories. This test is only authorized for the duration of the declaration that circumstances exist justifying the authorization of emergency use of in vitro diagnostic tests for detection and/or diagnosis of COVID-19 under Section 564(b)(1) of the Federal Food, Drug and Cosmetic Act, 21 U.S.C. 360bbb-3(b)(1), unless the authorization is terminated or revoked sooner. Fact Sheet for Healthcare Providers: https://www.[employer]/Documents/Xp ert%20Xpress%20SAR S%20CoV-2/Fact%20S heets/3023802%20S ARS-COV-2%20HEALTH CARE%20PROVIDERS%2 0FACT%20SHEET.pdf Fact Sheet for Healthcare Patients: https://www.[employer]/Documents/Xp ert%20Xpress%20SAR S%20CoV-2/Fact%20S heets/302-3801%20S ARS-COV-2%20PATIEN T%20FACT%20SHEET.p df Lab Interpretation Normal (test code = 13772-3) [facility] ([facility])2022-01-28 22:48:12 Test Item Value Reference Range Interpretation Comments SARS-COV2/RT-PCR Negative Negative The SARS-Co V-2 target (test code = nucleic acids a re not [id number]) detected in thi s specimen. Negative result [...] This SARS CoV-2 test is a rapid, real-time RT-PC R test intended for th e qualitative detection of nu cleic acid from SARS-CoV-2 in a nasopharyngeal swab specimen collected from individuals suspected of CO VID-19 [facility]. This test has been authorized by FDA under an EUA for use by authorized laboratories. This test is only authorized for the duration of the declaration that circumstances exist justifying the authorization of emergency use of in vitro diagnostic tests for detection and/or diagnosis of COVID-19 under Section 564(b)(1) of the Federal Food, Drug and Cosmetic Act, 21 U.S.C. 360bbb-3(b)(1), unless the authorization is terminated or revoked sooner. Fact Sheet for Healthcare Providers: https://www.[employer], [employer] m/Documents/Xpert%20Xpress%20SARS%20CoV-2/Fact%20Sheets/302-3802%54YGBA-XNL-3%20 HEALTHCARE%20PROVIDERS%20FACT%20SHEET.pdf Fact Sheet for Healthcare Patients: https://www.[employer]/Documents/Xpert%20Xp ress%20SARS%20CoV-2/Fact%20Sheets/302-3801%99VFCM-MZN-1%20PATIENT%20FACT%20SHEET .pdfLACTIC ACID, [id number] 21:19:53 Test Item Value Reference Range Interpretation Comments LACTATE BLOOD VENOUS (2) (BEAKER) 2.20 mmol/L 0.50-2.20 (test code = 2872) Altitude Chamber Technician ID - BSCOMPREHENSIVE METABOLIC [id number] 18:06:50 Test Item Value Reference Range Interpretation Comments TOTAL PROTEIN 7.4 gm/dL 6.0-8.3 (BEAKER) (test code = 770) ALBUMIN (BEAKER) 3.8 g/dL 3.5-5.0 (test code = 1145) ALKALINE 91 U/L 40-150 PHOSPHATASE (BEAKER) (test code = 346) BILIRUBIN TOTAL 0.5 mg/dL 0.2-1.2 (BEAKER) (test code = 377) SODIUM (BEAKER) 139 meq/L 136-145 (test code = 381) POTASSIUM (BEAKER) 4.7 meq/L 3.5-5.1 (test code = 379) CHLORIDE (BEAKER) 112 meq/L 98-107 H (test code = 382) CO2 (BEAKER) (test 19 meq/L 22-29 L code = 355) BLOOD UREA 11 mg/dL 7-21 NITROGEN (BEAKER) (test code = 354) CREATININE 1.06 mg/dL 0.57-1.25 (BEAKER) (test code = 358) GLUCOSE RANDOM 131 mg/dL 70-105 H (BEAKER) (test code = 652) CALCIUM (BEAKER) 9.3 mg/dL 8.4-10.2 (test code = 697) AST (SGOT) 44 U/L 5-34 H (BEAKER) (test code = 353) ALT (SGPT) 39 U/L 6-55 (BEAKER) (test code = 347) EGFR (BEAKER) 62 Interpretatio n of eGFR (test code = 1092) mL/min/1.[address] age Description sq m Result G1 Hortensia l or high >=90 G2 Mildly decreased 60-89 G3a Mildl y to moderately 45-5 9 G3b Moderately to s everely 30-44 G4 Severl y decreased 15-29 G5 Kidney failure <15Reported eGF R is based on the CKD-EPI 2021 equation that d oes not use a race coefficientEsti mated GFR is not as accur ate as Creatinine Julieta jayden in predicting glom erular filtration rate . Estimated GFR is not appl icable for dialysis patien ts [employer] Chamber Technician ID - BSLACTIC ACID, [id number] 18:01:50 Test Item Value Reference Range Interpretation Comments LACTATE BLOOD VENOUS 2.25 mmol/L 0.50-2.20 H Specime n moderately (2) (BEAKER) (test hemolyzed code = 8969) [facility] Technician ID - BSCBC W/PLT COUNT & AUTO [id number] 17:47:02 Test Item Value Reference Range Interpretation Comments WHITE BLOOD CELL COUNT 4.3 K/ L 3.5-10.5 (BEAKER) (test code = 775) RED BLOOD CELL COUNT 3.44 M/ L 3.93-5.22 L (BEAKER) (test code = 761) HEMOGLOBIN (BEAKER) 9.1 GM/DL 11.2-15.7 L (test code = 410) HEMATOCRIT (BEAKER) 29.4 % 34.1-44.9 L (test code = 411) MEAN CORPUSCULAR VOLUME 85.5 fL 79.4-94.8 (BEAKER) (test code = 753) MEAN CORPUSCULAR 26.5 pg 25.6-32.2 HEMOGLOBIN (BEAKER) (test code = 751) MEAN CORPUSCULAR 31.0 GM/DL 32.2-35.5 L HEMOGLOBIN CONC (BEAKER) (test code = 752) RED CELL DISTRIBUTION 17.7 % 11.7-14.4 H WIDTH (BEAKER) (test code = 412) PLATELET COUNT (BEAKER) 59 K/CU MM 150-450 L (test code = 756) MEAN PLATELET VOLUME Unable to report due (BEAKER) (test code = to abn ormal Platelet 754) population distribution. NUCLEATED RED BLOOD 0 /100 WBC 0-0 CELLS (BEAKER) (test code = 413) NEUTROPHILS RELATIVE 56 % PERCENT (BEAKER) (test code = 429) LYMPHOCYTES RELATIVE 28 % PERCENT (BEAKER) (test code = 430) MONOCYTES RELATIVE 11 % PERCENT (BEAKER) (test code = 431) EOSINOPHILS RELATIVE 6 % PERCENT (BEAKER) (test code = 432) BASOPHILS RELATIVE 0 % PERCENT (BEAKER) (test code = 437) NEUTROPHILS ABSOLUTE 2.38 K/ L 1.56-6.13 COUNT (BEAKER) (test code = 670) LYMPHOCYTES ABSOLUTE 1.20 K/ L 1.18-3.74 COUNT (BEAKER) (test code = 414) MONOCYTES ABSOLUTE 0.45 K/ L 0.24-0.36 H COUNT (BEAKER) (test code = 415) EOSINOPHILS ABSOLUTE 0.24 K/ L 0.04-0.36 COUNT (BEAKER) (test code = 416) BASOPHILS ABSOLUTE 0.01 K/ L 0.01-0.08 COUNT (BEAKER) (test code = 417) IMMATURE 0 % 0-1 GRANULOCYTES-RELATIVE PERCENT (BEAKER) (test code = 2801) [id number] 17:40:44 Test Item Value Reference Range Interpretation Comments PARTIAL THROMBOPLASTIN TIME 31.5 seconds 22.5-36.0 (BEAKER) (test code = 760) PROTHROMBIN [id number] 17:39:43 Test Item Value Reference Range Interpretation Comments PROTIME (BEAKER) 15.1 seconds 11.9-14.2 H (test code = 759) INR (BEAKER) (test 1.21 See_Comment [Automat ed message] code = 370) The system [employer] generated this result transmitted ref erence range: <=5.90. The reference range was not used to int erpret this result as normal/abnormal . RECOMMENDED COUMADIN/WARFARIN INR THERAPY RANGESSTANDARD DOSE: 2.0 - 3.0 Includes: PROPHYLAXIS for venous thrombosis, systemic embolization; TREATMENT for venous thrombosis and/or pulmonary embolus.HIGH RISK: Target INR is 2.5-3.5 for patients with mechanical heart valves.BASIC METABOLIC [id number] 13:59:19 Test Item Value Reference Range Interpretation Comments SODIUM (BEAKER) 141 meq/L 136-145 (test code = 381) POTASSIUM 4.4 meq/L 3.5-5.1 (BEAKER) (test code = 379) CHLORIDE (BEAKER) 110 meq/L 98-107 H (test code = 382) CO2 (BEAKER) 23 meq/L 22-29 (test code = 355) BLOOD UREA 15 mg/dL 7-21 NITROGEN (BEAKER) (test code = 354) CREATININE 1.11 mg/dL 0.57-1.25 (BEAKER) (test code = 358) GLUCOSE RANDOM 130 mg/dL 70-105 H (BEAKER) (test code = 652) CALCIUM (BEAKER) 9.8 mg/dL 8.4-10.2 (test code = 697) EGFR (BEAKER) 59 Interpretatio n of eGFR (test code = mL/min/1.73 values Stage De scription 1092) sq m Result G1 Hortensia l or high >=90 G2 Mildly decreased 60-89 G3a Mildl y to moderately 45-5 9 G3b Moderately to s everely 30-44 G4 Severl y decreased 15-29 G5 Kidney failure <15Reported eGF R is based on the CKD-EPI 2020 equation that d oes not use a race coefficientEsti mated GFR is not as accur ate as Creatinine Julieta jayden in predicting glom erular filtration rate . Estimated GFR is not appl icable for dialysis patien ts [facility] Technician ID - ASTRID GHEPATIC FUNCTION [id number] 13:59:19 Test Item Value Reference Range Interpretation Comments TOTAL PROTEIN (BEAKER) (test code = 7.6 gm/dL 6.0-8.3 770) ALBUMIN (BEAKER) (test code = 1145) 3.9 g/dL 3.5-5.0 BILIRUBIN TOTAL (BEAKER) (test code 0.6 mg/dL 0.2-1.2 = 377) BILIRUBIN DIRECT (BEAKER) (test 0.3 mg/dL 0.1-0.5 code = 706) ALKALINE PHOSPHATASE (BEAKER) (test 95 U/L 40-150 code = 346) AST (SGOT) (BEAKER) (test code = 44 U/L 5-34 H 353) ALT (SGPT) (BEAKER) (test code = 31 U/L 6-55 347) [facility] Technician ID - ASTRID GPROTHROMBIN [id number] 13:30:02 Test Item Value Reference Range Interpretation Comments PROTIME (BEAKER) 15.4 seconds 11.9-14.2 H (test code = 759) INR (BEAKER) (test 1.30 See_Comment [Automat ed message] code = 370) The system [employer] generated this result transmitted ref erence range: <=5.90. The reference range was not used to int erpret this result as normal/abnormal . RECOMMENDED COUMADIN/WARFARIN INR THERAPY RANGESSTANDARD DOSE: 2.0 - 3.0 Includes: PROPHYLAXIS for venous thrombosis, systemic embolization; TREATMENT for venous thrombosis and/or pulmonary embolus.HIGH RISK: Target INR is 2.5-3.5 for patients with mechanical heart valves.CBC W/PLT COUNT & AUTO [id number] 13:26:02 Test Item Value Reference Range Interpretation Comments WHITE BLOOD CELL COUNT (BEAKER) 3.8 K/ L 3.5-10.5 (test code = 775) RED BLOOD CELL COUNT (BEAKER) 3.81 M/ L 3.93-5.22 L (test code = 761) HEMOGLOBIN (BEAKER) (test code = 9.8 GM/DL 11.2-15.7 L 410) HEMATOCRIT (BEAKER) (test code = 32.5 % 34.1-44.9 L 411) MEAN CORPUSCULAR VOLUME (BEAKER) 85.3 fL 79.4-94.8 (test code = 753) MEAN CORPUSCULAR HEMOGLOBIN 25.7 pg 25.6-32.2 (BEAKER) (test code = 751) MEAN CORPUSCULAR HEMOGLOBIN CONC 30.2 GM/DL 32.2-35.5 L (BEAKER) (test code = 752) RED CELL DISTRIBUTION WIDTH 16.7 % 11.7-14.4 H (BEAKER) (test code = 412) PLATELET COUNT (BEAKER) (test code 30 K/CU MM 150-450 L = 756) MEAN PLATELET VOLUME (BEAKER) 11.2 fL 9.4-12.3 (test code = 754) NUCLEATED RED BLOOD CELLS (BEAKER) 0 /100 WBC 0-0 (test code = 413) NEUTROPHILS RELATIVE PERCENT 60 % (BEAKER) (test code = 429) LYMPHOCYTES RELATIVE PERCENT 25 % (BEAKER) (test code = 430) MONOCYTES RELATIVE PERCENT 10 % (BEAKER) (test code = 431) EOSINOPHILS RELATIVE PERCENT 4 % (BEAKER) (test code = 432) BASOPHILS RELATIVE PERCENT 1 % (BEAKER) (test code = 437) NEUTROPHILS ABSOLUTE COUNT 2.28 K/ L 1.56-6.13 (BEAKER) (test code = 670) LYMPHOCYTES ABSOLUTE COUNT 0.97 K/ L 1.18-3.74 L (BEAKER) (test code = 414) MONOCYTES ABSOLUTE COUNT (BEAKER) 0.39 K/ L 0.24-0.36 H (test code = 415) EOSINOPHILS ABSOLUTE COUNT 0.15 K/ L 0.04-0.36 (BEAKER) (test code = 416) BASOPHILS ABSOLUTE COUNT (BEAKER) 0.02 K/ L 0.01-0.08 (test code = 417) IMMATURE GRANULOCYTES-RELATIVE 0 % 0-1 PERCENT (BEAKER) (test code = 2801) POCT-GLUCOSE [id number] 11:38:23 Test Item Value Reference Range Interpretation Comments POC-GLUCOSE METER 161 mg/dL 70-110 H : TESTED A T [facility] 7200 (MITA) (test code DANIA Walter BLMICHELLE A, = 1538) [facility] 7703 0: [facility] Chamber Technician/Techni sanjeev ID = [id number] for DEON ASH MR, ABDOMEN, [id number] 15:19:00with liver protocolwith liver protocolUnlisted Reason for Exam - Click Yes and Enter Reason Below-&gt ;YesUnlisted Reason for Exam->Cirrhosis, evaluate liver, rule out liver mass, lesion. Please do with liver protocolwith liver protocol [facility] 1965 Sex: FFINALREPORT TECHNIQUE: MRI of the abdomen WITHOUT and WITH intravenous contrast. INDICATION: Unlisted Reason for ExamCirrhosis, evaluate liver, rule out liver mass, lesion. Please do with liver protocol. COMPARISON: MRI from 04/12/2021. Ultrasound from 09/05/2021. FINDINGS: LOWER THORAX:Unremarkable. LIVER: Nodular, cirrhotic liver. No focal hepatic lesions. BILIARY: There are likely stones and sludge in the gallbladder. Mild gallbladder wall thickening without gallbladder distention.The common bile duct measures 0.8 cm in diameter and has a questionable filling defect as seen on series 3 image 14. SPLEEN: 16.6 cm splenomegaly.PANCREAS: No focal masses or ductal dilatation. ADRENALS: No adrenal nodules.KIDNEYS/URETERS: No hydronephrosis or solid mass lesions. PERITONEUM/RETROPERITONEUM: No free fluid.LYMPH NODES: No lymphadenopathy.VESSELS: The arterial vasculature was suboptimally evaluated due to motion artifact. The main portal vein is dilated at 1.7 cm in diameter. Small esophageal varices. GI TRACT: No distention or wall thickening. BONES AND SOFT TISSUES: There is an unchanged, near-complete compression deformity of the L1 vertebral body. IMPRESSION: No precontrast T1 fat-saturated imaging was provided. If this is provided, an addendum can be made. 1.No suspicious liver lesion 2.The common bile duct is mildly dilated and has a filling defect which is concerning for a stone. 3.Cirrhosis with sequelae of portal hypertension including splenomegaly and small esophageal varices 4.Cholelithiasis with mild gallbladder wall thickening. There is no gallbladder distention. Acute with ascites is considered unlikely. Signed: Damon Cormier MDReport Verified Date/Time: 10/04/2021 15:19:15 Reading Location: [facility] Diagnostic Imaging Reading Room - [place] [address] ALPHA FETOPROTEIN (AFP), TUMOR [id number] 13:11:37 Test Item Value Reference Range Interpretation Comments ALPHA-FETOPROTEIN (BEAKER) (test 3.3 ng/mL <10.0 code = 1094) [facility] Technician ID - DBBASIC METABOLIC [id number] 12:58:54 Test Item Value Reference Range Interpretation Comments SODIUM (BEAKER) 141 meq/L 136-145 (test code = 381) POTASSIUM (BEAKER) 4.3 meq/L 3.5-5.1 (test code = 379) CHLORIDE (BEAKER) 109 meq/L 98-107 H (test code = 382) CO2 (BEAKER) (test 23 meq/L 22-29 code = 355) BLOOD UREA NITROGEN 24 mg/dL 7-21 H (BEAKER) (test code = 354) CREATININE (BEAKER) 1.09 mg/dL 0.57-1.25 (test code = 358) GLUCOSE RANDOM 147 mg/dL 70-105 H (BEAKER) (test code = 652) CALCIUM (BEAKER) 10.4 mg/dL 8.4-10.2 H (test code = 697) EGFR (BEAKER) (test 53 mL/min/1.73 ESTIMA GABY GFR IS code = 1092) sq m NOT ACCURATE CREATININE CLEARANCE IN PREDICTING GLOMERULAR FILTRATION RATE . ESTIMATED GFR I S NOT APPLICABLE FOR DIALYSIS PATIEN TS. [facility] Technician ID - BRADY CHEPATIC FUNCTION [id number] 12:58:54 Test Item Value Reference Range Interpretation Comments TOTAL PROTEIN (BEAKER) (test code = 7.1 gm/dL 6.0-8.3 770) ALBUMIN (BEAKER) (test code = 1145) 3.6 g/dL 3.5-5.0 BILIRUBIN TOTAL (BEAKER) (test code 0.4 mg/dL 0.2-1.2 = 377) BILIRUBIN DIRECT (BEAKER) (test 0.2 mg/dL 0.1-0.5 code = 706) ALKALINE PHOSPHATASE (BEAKER) (test 79 U/L 40-150 code = 346) AST (SGOT) (BEAKER) (test code = 28 U/L 5-34 353) ALT (SGPT) (BEAKER) (test code = 21 U/L 6-55 347) [facility] Technician ID - BRADY CPROTHROMBIN [id number] 12:49:27 Test Item Value Reference Range Interpretation Comments PROTIME (BEAKER) 14.9 seconds 11.9-14.2 H (test code = 759) INR (BEAKER) (test 1.19 See_Comment [Automat ed message] code = 370) The system [employer] generated this result transmitted ref erence range: <=5.90. The reference range was not used to int erpret this result as normal/abnormal . RECOMMENDED COUMADIN/WARFARIN INR THERAPY RANGESSTANDARD DOSE: 2.0 - 3.0 Includes: PROPHYLAXIS for venous thrombosis, systemic embolization; TREATMENT for venous thrombosis and/or pulmonary embolus.HIGH RISK: Target INR is 2.5-3.5 for patients with mechanical heart valves.CBC W/PLT COUNT & AUTO [id number] 12:45:28 Test Item Value Reference Range Interpretation Comments WHITE BLOOD CELL COUNT (BEAKER) 3.0 K/ L 3.5-10.5 L (test code = 775) RED BLOOD CELL COUNT (BEAKER) 3.06 M/ L 3.93-5.22 L (test code = 761) HEMOGLOBIN (BEAKER) (test code = 9.2 GM/DL 11.2-15.7 L 410) HEMATOCRIT (BEAKER) (test code = 28.1 % 34.1-44.9 L 411) MEAN CORPUSCULAR VOLUME (BEAKER) 91.8 fL 79.4-94.8 (test code = 753) MEAN CORPUSCULAR HEMOGLOBIN 30.1 pg 25.6-32.2 (BEAKER) (test code = 751) MEAN CORPUSCULAR HEMOGLOBIN CONC 32.7 GM/DL 32.2-35.5 (BEAKER) (test code = 752) RED CELL DISTRIBUTION WIDTH 15.1 % 11.7-14.4 H (BEAKER) (test code = 412) PLATELET COUNT (BEAKER) (test code 33 K/CU MM 150-450 L = 756) MEAN PLATELET VOLUME (BEAKER) 11.1 fL 9.4-12.3 (test code = 754) NUCLEATED RED BLOOD CELLS (BEAKER) 0 /100 WBC 0-0 (test code = 413) NEUTROPHILS RELATIVE PERCENT 59 % (BEAKER) (test code = 429) LYMPHOCYTES RELATIVE PERCENT 24 % (BEAKER) (test code = 430) MONOCYTES RELATIVE PERCENT 12 % (BEAKER) (test code = 431) EOSINOPHILS RELATIVE PERCENT 5 % (BEAKER) (test code = 432) BASOPHILS RELATIVE PERCENT 0 % (BEAKER) (test code = 437) NEUTROPHILS ABSOLUTE COUNT 1.77 K/ L 1.56-6.13 (BEAKER) (test code = 670) LYMPHOCYTES ABSOLUTE COUNT 0.71 K/ L 1.18-3.74 L (BEAKER) (test code = 414) MONOCYTES ABSOLUTE COUNT (BEAKER) 0.35 K/ L 0.24-0.36 (test code = 415) EOSINOPHILS ABSOLUTE COUNT 0.14 K/ L 0.04-0.36 (BEAKER) (test code = 416) BASOPHILS ABSOLUTE COUNT (BEAKER) 0.01 K/ L 0.01-0.08 (test code = 417) IMMATURE GRANULOCYTES-RELATIVE 0 % 0-1 PERCENT (BEAKER) (test code = 2801) BLOOD [id number] 01:01:00 Test Item Value Reference Range Interpretation Comments CULTURE (BEAKER) (test No growth in 5 days code = 1095) The specimen volume collected for this blood culture was below the optimum (10 mL per bottle or 20 mL total). Use of lower volumes may adversely affect recovery and/or detection times of some organisms.BLOOD [id number] 01:01:00 Test Item Value Reference Range Interpretation Comments CULTURE (BEAKER) (test No growth in 5 days code = 1095) The specimen volume collected for this blood culture was below the optimum (10 mL per bottle or 20 mL total). Use of lower volumes may adversely affect recovery and/or detection times of some organisms.POCT-GLUCOSE [id number] 09:58:16 Test Item Value Reference Range Interpretation Comments POC-GLUCOSE METER 170 mg/dL 70-110 H : TESTED A T [facility] 6720 (BEAKER) (test code = MICHEL ENGEL [place], 1538) [address]: [facility] Chamber Technician/Techni sanjeev ID = [id number] for Renetta Auguste COMPREHENSIVE METABOLIC [id number] 07:04:36 Test Item Value Reference Range Interpretation Comments TOTAL PROTEIN 6.7 gm/dL 6.0-8.3 (BEAKER) (test code = 770) ALBUMIN (BEAKER) 3.3 g/dL 3.5-5.0 L (test code = 1145) ALKALINE PHOSPHATASE 76 U/L 40-150 (BEAKER) (test code = 346) BILIRUBIN TOTAL 0.4 mg/dL 0.2-1.2 (BEAKER) (test code = 377) SODIUM (BEAKER) (test 135 meq/L 136-145 L code = 381) POTASSIUM (BEAKER) 4.0 meq/L 3.5-5.1 (test code = 379) CHLORIDE (BEAKER) 101 meq/L 98-107 (test code = 382) CO2 (BEAKER) (test 24 meq/L 22-29 code = 355) BLOOD UREA NITROGEN 15 mg/dL 7-21 (BEAKER) (test code = 354) CREATININE (BEAKER) 1.13 mg/dL 0.57-1.25 (test code = 358) GLUCOSE RANDOM 254 mg/dL 70-105 H (BEAKER) (test code = 652) CALCIUM (BEAKER) 8.8 mg/dL 8.4-10.2 (test code = 697) AST (SGOT) (BEAKER) 27 U/L 5-34 (test code = 353) ALT (SGPT) (BEAKER) 22 U/L 6-55 (test code = 347) EGFR (BEAKER) (test 50 mL/min/1.73 ESTIMA GABY GFR IS code = 1092) sq m NOT ACCURATE CREATININE CLEARANCE IN PREDICTING GLOMERULAR FILTRATION RATE . ESTIMATED GFR I S NOT APPLICABLE FOR DIALYSIS PATIEN TS. [facility] Technician ID - [id number] 07:04:36 Test Item Value Reference Range Interpretation Comments MAGNESIUM (BEAKER) (test code = 1.6 mg/dL 1.6-2.6 627) [facility] Technician ID - BSPROTHROMBIN [id number] 06:50:36 Test Item Value Reference Range Interpretation Comments PROTIME (BEAKER) 15.9 seconds 11.9-14.2 H (test code = 759) INR (BEAKER) (test 1.29 See_Comment [Automat ed message] code = 370) The system [employer] generated this result transmitted ref erence range: <=5.90. The reference range was not used to int erpret this result as normal/abnormal . RECOMMENDED COUMADIN/WARFARIN INR THERAPY RANGESSTANDARD DOSE: 2.0 - 3.0 Includes: PROPHYLAXIS for venous thrombosis, systemic embolization; TREATMENT for venous thrombosis and/or pulmonary embolus.HIGH RISK: Target INR is 2.5-3.5 for patients with mechanical heart valves.CBC (HEMOGRAM ONLY)2021-09-06 06:40:57 Test Item Value Reference Range Interpretation Comments WHITE BLOOD CELL COUNT (BEAKER) 3.7 K/ L 3.5-10.5 (test code = 775) RED BLOOD CELL COUNT (BEAKER) 3.23 M/ L 3.93-5.22 L (test code = 761) HEMOGLOBIN (BEAKER) (test code = 9.4 GM/DL 11.2-15.7 L 410) HEMATOCRIT (BEAKER) (test code = 29.5 % 34.1-44.9 L 411) MEAN CORPUSCULAR VOLUME (BEAKER) 91.3 fL 79.4-94.8 (test code = 753) MEAN CORPUSCULAR HEMOGLOBIN 29.1 pg 25.6-32.2 (BEAKER) (test code = 751) MEAN CORPUSCULAR HEMOGLOBIN CONC 31.9 GM/DL 32.2-35.5 L (BEAKER) (test code = 752) RED CELL DISTRIBUTION WIDTH 14.7 % 11.7-14.4 H (BEAKER) (test code = 412) PLATELET COUNT (BEAKER) (test code 38 K/CU MM 150-450 L = 756) MEAN PLATELET VOLUME (BEAKER) 12.9 fL 9.4-12.3 H (test code = 754) NUCLEATED RED BLOOD CELLS (BEAKER) 0 /100 WBC 0-0 (test code = 413) U/S, ABDOMINAL, [id number] 17:55:00Abdomen limited area? Add comment if clarification is needed.->LiverReason for exam:->perform with doppler to evaluate portal vein patency; evaluating for possible portal cholangiopathy and related thrombosis [facility] : 1965 Sex: FFINALREPORT CLINICAL HISTORY: perform with doppler to evaluate portal vein patency; evaluating for possible portal cholangiopathy and related thrombosis COMPARISON: Same day CT abdomen pelvis with IV contrast TECHNIQUE: Real time grayscale and color Doppler images of the abdominal organs were obtained using a curved transducer. Spectral Doppler images of the hepatic vasculature were also obtained. FINDINGS: Pancreas: Partially visualized and unremarkable. Liver: Coarsened in echotexture with nodular contour. Focal liver lesions: None sonographically detectable. Portal veins: Normal,hepatopetal flow. Mildly dilated main portal vein 1.5 cm in diameter, with peak velocity of 20 cm/s H epatic arteries and veins: Patent with appropriate waveforms. Hepatic artery resistive indices are 0.7 on the left, 0.7 on the right, and 0.6 in the proper hepatic artery. Normal acceleration time in the proper hepatic artery. Bile ducts: Top normal diameter common bile duct. Gallbladder: Cholelithiasis without gallbladder wall thickening, top normal distention of the gallbladder, no pericholecystic edema. No sonographic Tariq sign reported. Kidneys: No hydronephrosis. No solid renal mass. Spleen: Mildly enlarged. Patent splenic artery and vein. Ascites: None in the upper abdomen. Visualized aortaand IVC: Unremarkable. MEASUREMENTS:Liver: 15.8 cm Common Duct: 6.6 mm Right Kidney: 10.8 cm Left Kidney: 10.5 cm Spleen: 12.5 cm Aorta: 1.6 cm IMPRESSION: Cirrhosis with mild splenomegaly and patent hepatic vasculature. Cholelithiasis without sonographic evidence for acute cholecystitis. Signed: Isaac Mccauley Verified Date/Time: 09/05/2021 17:55:29 U/S, DUPLEX, [id number] 17:55:00Reason for exam:->perform with doppler to evaluate portal vein patency; evaluating for possible portal cholangiopathy and related thrombosis [facility] : 1965 Sex: FFINALREPORT CLINICAL HISTORY: perform with doppler to evaluate portal vein patency; evaluating for possible portal cholangiopathy and related thrombosis COMPARISON: Same day CT abdomen pelvis with IV contrast TECHNIQUE: Real time grayscale and color Doppler images of the abdominal organs were obtained using a curved transducer. Spectral Doppler images of the hepatic vasculature were also obtained. FINDINGS: Pancreas: Partially visualized and unremarkable. Liver: Coarsened in echotexture with nodular contour. Focal liver lesions: None sonographically detectable. Portal veins: Normal,hepatopetal flow. Mildly dilated main portal vein 1.5 cm in diameter, with peak velocity of 20 cm/s H epatic arteries and veins: Patent with appropriate waveforms. Hepatic artery resistive indices are 0.7 on the left, 0.7 on the right, and 0.6 in the proper hepatic artery. Normal acceleration time in the proper hepatic artery. Bile ducts: Top normal diameter common bile duct. Gallbladder: Cholelithiasis without gallbladder wall thickening, top normal distention of the gallbladder, no pericholecystic edema. No sonographic Tariq sign reported. Kidneys: No hydronephrosis. No solid renal mass. Spleen: Mildly enlarged. Patent splenic artery and vein. Ascites: None in the upper abdomen. Visualized aortaand IVC: Unremarkable. MEASUREMENTS:Liver: 15.8 cm Common Duct: 6.6 mm Right Kidney: 10.8 cm Left Kidney: 10.5 cm Spleen: 12.5 cm Aorta: 1.6 cm IMPRESSION: Cirrhosis with mild splenomegaly and patent hepatic vasculature. Cholelithiasis without sonographic evidence for acute cholecystitis. Signed: Isaac Mccauley MDRcarla Verified Date/Time: 09/05/2021 17:55:29 HEPATOBILIARY [id number] 17:15:00Unlisted Reason for Exam - Click Yes and Enter Reason Below->YesUnlisted Reason for Exam->Evalfor cholecystitis [facility] : 1965 Sex: FFINALREPORT PROCEDURE: HEPATOBILIARY SCAN ([facility]) CPT CODE: 30792 INDICATION:Abdominal pain PROTOCOL: 5.4 mCi of Tc-99m mebrofenin was injected intravenously. Images of the upper abdomen were obtained for approximately 70 minutes after tracer injection. FINDINGS: Initial traceruptake into the liver is physiological. Subsequent tracer clearance from the liver is mildly delayed. There is good visualization of the extrahepatic biliary duct and the gallbladder, and the tracer appears appropriately in the small bowel. IMPRESSION:1. Diffuse hepatocellular dysfunction.2. Otherwisenormal hepatobiliary scan. No evidence of acute cholecystitis. Signed: Ricky Hendrix MDReport Verified Date/Time: 09/05/2021 17:15:06 URINALYSIS W/ REFLEX URINE [id number] 15:47:29 Test Item Value Reference Range Interpretation Comments COLOR (BEAKER) (test code = 470) Light Yellow CLARITY (BEAKER) (test code = Clear 469) SPECIFIC GRAVITY UA (BEAKER) 1.050 1.001-1.035 H (test code = 468) PH UA (BEAKER) (test code = 467) 5.0 5.0-8.0 PROTEIN UA (BEAKER) (test code = Negative Negative 464) GLUCOSE UA (BEAKER) (test code = Negative Negative 365) KETONES UA (BEAKER) (test code = Negative Negative 371) BILIRUBIN UA (BEAKER) (test code Negative Negative = 462) BLOOD UA (BEAKER) (test code = Negative Negative 461) NITRITE UA (BEAKER) (test code = Negative Negative 465) LEUKOCYTE ESTERASE UA (BEAKER) Negative Negative (test code = 466) UROBILINOGEN UA (BEAKER) (test 0.2 mg/dL 0.2-1.0 code = 463) RBC UA (BEAKER) (test code = < /HPF 519) WBC UA (BEAKER) (test code = 1 /HPF 520) BACTERIA (BEAKER) (test code = None Seen 517) SQUAMOUS EPITHELIAL (BEAKER) 2 /HPF (test code = 516) CRYSTALS, URINE (BEAKER) (test None Seen code = 1521) SOURCE(BEAKER) (test code = 2795) [facility] Chamber Technician ID - [auto]Alt[facility] Chamber Technician ID - techCT, CHEST WITH IV CONTRAST- PE TEST DESIGN 2021-09-05 03:12:00Unlisted Reason for Exam - Click Yes and Enter Reason Below->NoSUZE [facility] : 1965 Sex: FFINALREPORT Comparison: CTPA dated 08/12/2021 Indication: 55-year-old female with acute chest pain, hypoxia, and shortness of breath clinically suspicious for acute pulmonary embolism. Technique: Postcontrast axial images of the chest were obtained from above the arch level to the lowerchest at maximum enhancement of the pulmonary artery. Delayed axial images of the abdomen and pelviswere obtained subsequently. This exam was performed according to the departmental dose optimization program which includes automated exposure control, adjustment of the mA and/or kV according to the patient size, and/or use of an iterative reconstruction technique. Findings: Vascular: The study is diagnostic to the level of the subsegmental pulmonary arteries. Pulmonary arteries: No evidence of acuteor chronic pulmonary embolism. Specifically, the pulmonary arteries are widely patent, without evidence for filling defect or vascular cutoff. The pulmonary arteries are normal in size. Thoracic aorta:Normal in size. No acute aortic pathology. The arch vessel branching pattern is normal, and the origins of the arch branch vessels are all widely patent. Pulmonary veins: Normal configuration. Coronaryarteries: Normal configuration with mild atherosclerotic calcifications. Systemic veins: No identified thrombus. Chest: Lungs/pleura: Minimal lower lobe dependent atelectasis. No pleural effusion or pneumothorax. No suspicious pulmonary nodules. Calcified granuloma in the left upper lobe. No focal consolidation. Mediastinum/tom: No pathologically enlarged lymph nodes. The thyroid gland is unremarkable. The esophagus is normal in caliber however with wall thickening distally likely related to esophageal varices.. Small hiatal hernia. Multiple prominent mediastinal lymph nodes are again noted, for example the right lower paratracheal lymph node measuring 1.0 cm in short axis. Heart: The cardiac chambers demonstrate normal atrioventricular and ventriculoarterial concordance, and systemic and pulmonary venous return. The cardiac chamber sizes are normal. No pericardial effusion. No thrombus identifi ed within the cardiac chambers. Axillae/subcutaneous soft tissues: No pathologically enlarged axillary lymph nodes. No suspicious subcutaneous nodules or fluid collections. Bones: No aggressive osseouslesions or acute fractures. Multilevel degenerative changes in thoracic spine. Unchanged height lossof the T1, T3, T4 vertebral bodies Abdomen/pelvis:Liver: Nodular contour of the liver is consistent with cirrhosis. Ill-defined hypoattenuating area in the left hepatic lobe with intervening vessels, unchanged over multiple prior studies likely related to fibrosis.Gallbladder and biliary tree: Cholelithiasis without gallbladder wall thickening and pericholecystic fluid, nonspecific in the setting of cirrhosis. No ductal dilatation.Pancreas: No acute findings.Spleen: Splenomegaly.Adrenal Glands: No acute findings.Kidneys and ureters: No hydronephrosis or nephrolithiasis.Bladder and reproductive organs: Unremarkable. Stomach and Duodenum: No significant findings.Small and large intestine: Normal calibers. Thickening of the cecum is nonspecific in the setting of cirrhosis and likely related to portal hypertension.Appendix: Normal. Major vascular structures: Normal aortic caliber.Peritoneum and retroperitoneum: Multiple enlarged epigastric and portacaval lymph nodes, unchanged in the interval. No dr ainable fluid collection or pneumoperitoneum. Skeleton: Unchanged compression deformity of the L1 vertebral body with retropulsion of posterior fracture fragments into the canal resulting in at least mild spinal canal stenosis.Additional findings: None. Impression: No evidence for acute or chronic pulmonary embolism. Prominent mediastinal lymph nodes, nonspecific and possibly reactive however recommend continued close attention on follow-up imaging. Morphologic changes of cirrhosis with sequela of portal hypertension including splenomegaly and esophageal varices. Cholelithiasis with gallbladder wall thickening similar over multiple prior studies likely related to cirrhosis. If there is concern foracute cholecystitis recommend further evaluation with HIDA scan. Signed: Gregorio Cook [facility] Verified Date/Time: 09/05/2021 03:12:52 CT, [id number] 03:12:00Unlisted Reason for Exam - Click Yes and Enter Reason Below->NoIs this for enterography?->NoWill this procedure require oral contrast?->No [facility] CHEYENNE GLEASON : 1965 Sex: FFINALREPORT Comparison: CTPA dated 08/12/2021 Indication: 55-year-old female with acute chest pain, hypoxia, and shortness of breath clinically suspicious for acute pulmonary embolism. Technique: Postcontrast axial images of the chest were obtained from above the arch level to the lowerchest at maximum enhancement of the pulmonary artery. Delayed axial images of the abdomen and pelviswere obtained subsequently. This exam was performed according to the departmental dose optimization program which includes automated exposure control, adjustment of the mA and/or kV according to the patient size, and/or use of an iterative reconstruction technique. Findings: Vascular: The study is diagnostic to the level of the subsegmental pulmonary arteries. Pulmonary arteries: No evidence of acute or chronic pulmonary embolism. Specifically, the pulmonary arteries are widely patent, without evidence for filling defect or vascular cutoff. The pulmonary arteries are normal in size. Thoracic aorta: Normal in size. No acute aortic pathology. The arch vessel branching pattern is normal, and the origins of the arch branch vessels are all widely patent. Pulmonary veins: Normal configuration. Coronary arteries: Normal configuration with mild atherosclerotic calcifications. Systemic veins: No identified thrombus. Chest: Lungs/pleura: Minimal lower lobe dependent atelectasis. No pleural effusion or pneumothorax. No suspicious pulmonary nodules. Calcified granuloma in the left upper lobe. No focal consolidation. Mediastinum/tom: No pathologically enlarged lymph nodes. The thyroid gland is unremarkable. The esophagus is normal in caliber however with wall thickening distally likely related to esophageal varices.. Small hiatal hernia. Multiple prominent mediastinal lymph nodes are again noted, for e xample the right lower paratracheal lymph node measuring 1.0 cm in short axis. Heart: The cardiac chambers demonstrate normal atrioventricular and ventriculoarterial concordance, and systemic and pulmonary venous return. The cardiac chamber sizes are normal. No pericardial effusion. No thrombus identif ied within the cardiac chambers. Axillae/subcutaneous soft tissues: No pathologically enlarged axillary lymph nodes. No suspicious subcutaneous nodules or fluid collections. Bones: No aggressive osseous lesions or acute fractures. Multilevel degenerative changes in thoracic spine. Unchanged height loss of the T1, T3, T4 vertebral bodies Abdomen/pelvis:Liver: Nodular contour of the liver is consistentwith cirrhosis. Ill-defined hypoattenuating area in the left hepatic lobe with intervening vessels, unchanged over multiple prior studies likely related to fibrosis.Gallbladder and biliary tree: Cholelithiasis without gallbladder wall thickening and pericholecystic fluid, nonspecific in the setting ofcirrhosis. No ductal dilatation.Pancreas: No acute findings.Spleen: Splenomegaly.Adrenal Glands: No acute findings.Kidneys and ureters: No hydronephrosis or nephrolithiasis.Bladder and reproductive organs: Unremarkable. Stomach and Duodenum: No significant findings.Small and large intestine: Normal calibers. Thickening of the cecum is nonspecific in the setting of cirrhosis and likely related to portal hypertension.Appendix: Normal. Major vascular structures: Normal aortic caliber.Peritoneum and retroperitoneum: Multiple enlarged epigastric and portacaval lymph nodes, unchanged in the interval. No d rainable fluid collection or pneumoperitoneum. Skeleton: Unchanged compression deformity of the L1 vertebral body with retropulsion of posterior fracture fragments into the canal resulting in at least mild spinal canal stenosis.Additional findings: None. Impression: No evidence for acute or chronic pulmonary embolism. Prominent mediastinal lymph nodes, nonspecific and possibly reactive however recommend continued close attention on follow-up imaging. Morphologic changes of cirrhosis with sequela of portal hypertension including splenomegaly and esophageal varices. Cholelithiasis with gallbladder wall thickening similar over multiple prior studies likely related to cirrhosis. If there is concern for acute cholecystitis recommend further evaluation with HIDA scan. Signed: Gregorio Cook Verified Date/Time: 09/05/2021 03:12:52 SARS-COV2/RT-PCR ([facility])2021-09-05 01:09:11 Test Item Value Reference Range Interpretation Comments SARS-COV2/RT-PCR Negative Negative The SARS-Co V-2 target (test code = nucleic acids a re not 2280546) detected in thi s specimen. Negative result [...] This SARS CoV-2 test is a rapid, real-time RT-PC R test intended for th e qualitative detection [...] Food, Drug and Cosmetic Act, 21 U.S.C. 360bbb-3(b)(1), unless the authorization is terminated or revoked sooner. Fact Sheet for Healthcare Providers: https://www.[employer], [employer] m/Documents/Xpert%20Xpress%20SARS%20CoV-2/Fact%20Sheets/3023802%16RKPG-UCG-3%20 HEALTHCARE%20PROVIDERS%20FACT%20SHEET.pdf Fact Sheet for Healthcare Patients: https://www.[employer]/Documents/Xpert%20Xp ress%20SARS%20CoV-2/Fact%20Sheets/3023801%21FYEC-HRT-3%20PATIENT%20FACT%20SHEET .pdfTSH/FREE T4 IF [id number] 00:56:26 Test Item Value Reference Range Interpretation Comments THYROID STIMULATING HORMONE 3.139 uIU/mL 0.350-4.940 (BEAKER) (test code = 772) [employer] Technician ID - BSHIGH SENSITIVITY TROPONIN [id number] 00:41:40 Test Item Value Reference Range Interpretation Comments HIGH SENSITIVITY < pg/ml See_Comment [Automated message] TROPONIN I (test code = The system which [id number]) generated this result transmitted ref erence range: <=17. Th e reference range was not used to interpr et this result as normal/abnormal . [employer] Chamber Technician ID - BSThe CRAFT RECRUITER STAT High Sensitivity Troponin-I results should be used in conjunctionwith other diagnostic information such as ECG, clinical observations and information, and patient symptoms to aid in the diagnosis of SC.B-TYPE NATRIURETIC FACTOR (BNP)2021-09-05 00:40:21 Test Item Value Reference Range Interpretation Comments B-TYPE NATRIURETIC PEPTIDE (BEAKER) 30 pg/mL 0-100 (test code = 700) [employer] Chamber Technician ID - [id number] 00:36:01 Test Item Value Reference Range Interpretation Comments LIPASE (BEAKER) (test code = 749) 112 U/L 8-78 H [employer] Technician ID - BSCOMPREHENSIVE METABOLIC [id number] 00:36:00 Test Item Value Reference Range Interpretation Comments TOTAL PROTEIN 7.6 gm/dL 6.0-8.3 (BEAKER) (test code = 770) ALBUMIN (BEAKER) 3.9 g/dL 3.5-5.0 (test code = 1145) ALKALINE PHOSPHATASE 89 U/L 40-150 (BEAKER) (test code = 346) BILIRUBIN TOTAL 0.5 mg/dL 0.2-1.2 (BEAKER) (test code = 377) SODIUM (BEAKER) (test 139 meq/L 136-145 code = 381) POTASSIUM (BEAKER) 3.8 meq/L 3.5-5.1 (test code = 379) CHLORIDE (BEAKER) 104 meq/L 98-107 (test code = 382) CO2 (BEAKER) (test 26 meq/L 22-29 code = 355) BLOOD UREA NITROGEN 19 mg/dL 7-21 (BEAKER) (test code = 354) CREATININE (BEAKER) 1.38 mg/dL 0.57-1.25 H (test code = 358) GLUCOSE RANDOM 160 mg/dL 70-105 H (BEAKER) (test code = 652) CALCIUM (BEAKER) 10.1 mg/dL 8.4-10.2 (test code = 697) AST (SGOT) (BEAKER) 43 U/L 5-34 H (test code = 353) ALT (SGPT) (BEAKER) 31 U/L 6-55 (test code = 347) EGFR (BEAKER) (test 40 mL/min/1.73 ESTIMA GABY GFR IS code = 1092) sq m NOT ACCURATE CREATININE CLEARANCE IN PREDICTING GLOMERULAR FILTRATION RATE . ESTIMATED GFR I S NOT APPLICABLE FOR DIALYSIS PATIEN TS. [employer] Chamber Technician ID - [id number] 00:36:00 Test Item Value Reference Range Interpretation Comments MAGNESIUM (BEAKER) (test code = 1.6 mg/dL 1.6-2.6 627) [facility] Chamber Technician ID - BSLACTIC ACID, [id number] 00:28:36 Test Item Value Reference Range Interpretation Comments LACTATE BLOOD VENOUS (2) (BEAKER) 1.31 mmol/L 0.50-2.20 (test code = 2872) [employer] Technician ID - [id number]-[id number] 00:11:19 Test Item Value Reference Range Interpretation Comments D-DIMER QUANTITATIVE (BEAKER) 1.29 MG/L FEU <0.50 H (test code = [...] the exclusion of thrombosis is within 95-100% range.RAD, CHEST, 1 VIEW, NON [id number] 00:10:00Reason for exam:->ABDOMINAL PAINReason for exam:->RECTAL BLEEDINGShould this be performed at the bedside?->Yes[facility]LE[facility]ON : 1965 Sex: FFINALREPORT RAD, CHEST, 1 VIEW, NON DEPT CLINICAL HISTORY: ABDOMINAL PAINRECTAL BLEEDING TECHNIQUE: Single view of the chest. COMPARISON: August 12, 2021 IMPRESSION: There are no focal infiltrates or effusions. No pneumothorax. The cardiomediastinal silhouette is unremarkable for AP technique. The osseous structures appear intact. Signed: Tre Cooper Verified Date/Time: 09/05/2021 00:10:29 PROTHROMBIN TIME/[id number] 00:08:40 Test Item Value Reference Range Interpretation Comments PROTIME (BEAKER) 15.5 seconds 11.9-14.2 H (test code = 759) INR (BEAKER) (test 1.25 See_Comment [Automat ed message] code = 370) The system [employer] generated this result transmitted ref erence range: <=5.90. The reference range was not used to int erpret this result as normal/abnormal . RECOMMENDED COUMADIN/WARFARIN INR THERAPY RANGESSTANDARD DOSE: 2.0 - 3.0 Includes: PROPHYLAXIS for venous thrombosis, systemic embolization; TREATMENT for venous thrombosis and/or pulmonary embolus.HIGH RISK: Target INR is 2.5-3.5 for patients with mechanical heart valves.CBC W/PLT COUNT & AUTO [id number] 00:03:36 Test Item Value Reference Range Interpretation Comments WHITE BLOOD CELL COUNT (BEAKER) 5.9 K/ L 3.5-10.5 (test code = 775) RED BLOOD CELL COUNT (BEAKER) 3.74 M/ L 3.93-5.22 L (test code = 761) HEMOGLOBIN (BEAKER) (test code = 10.8 GM/DL 11.2-15.7 L 410) HEMATOCRIT (BEAKER) (test code = 34.7 % 34.1-44.9 411) MEAN CORPUSCULAR VOLUME (BEAKER) 92.8 fL 79.4-94.8 (test code = 753) MEAN CORPUSCULAR HEMOGLOBIN 28.9 pg 25.6-32.2 (BEAKER) (test code = 751) MEAN CORPUSCULAR HEMOGLOBIN CONC 31.1 GM/DL 32.2-35.5 L (BEAKER) (test code = 752) RED CELL DISTRIBUTION WIDTH 15.1 % 11.7-14.4 H (BEAKER) (test code = 412) PLATELET COUNT (BEAKER) (test code 41 K/CU MM 150-450 L = 756) MEAN [...] (test code = 437) NEUTROPHILS ABSOLUTE COUNT 3.74 K/ L 1.56-6.13 (BEAKER) (test code = 670) LYMPHOCYTES ABSOLUTE COUNT 1.17 K/ L 1.18-3.74 L (BEAKER) (test code = 414) MONOCYTES ABSOLUTE COUNT (BEAKER) 0.77 K/ L 0.24-0.36 H (test code = 415) EOSINOPHILS ABSOLUTE COUNT 0.21 K/ L 0.04-0.36 (BEAKER) (test code = 416) BASOPHILS ABSOLUTE COUNT (BEAKER) 0.01 K/ L 0.01-0.08 (test code = 417) IMMATURE GRANULOCYTES-RELATIVE 0 % 0-1 PERCENT (BEAKER) (test code = 2801) URINALYSIS W/ REFLEX URINE [id number] 21:37:32 Test Item Value Reference Range Interpretation Comments COLOR (BEAKER) (test code = 470) Light Yellow CLARITY (BEAKER) (test code = Clear 469) SPECIFIC GRAVITY UA (BEAKER) 1.012 1.001-1.035 (test code = 468) PH UA (BEAKER) (test code = 467) 5.5 5.0-8.0 PROTEIN UA (BEAKER) (test code = Negative Negative 464) GLUCOSE UA (BEAKER) (test code = Negative Negative 365) KETONES UA (BEAKER) (test code = Negative Negative 371) BILIRUBIN UA (BEAKER) (test code Negative Negative = 462) BLOOD UA (BEAKER) (test code = Negative Negative 461) NITRITE UA (BEAKER) (test code = Negative Negative 465) LEUKOCYTE ESTERASE UA (BEAKER) Negative Negative (test code = 466) UROBILINOGEN UA (BEAKER) (test 0.2 mg/dL 0.2-1.0 code = 463) RBC UA (BEAKER) (test code = 0 /HPF 519) WBC UA (BEAKER) (test code = 0 /HPF 520) BACTERIA (BEAKER) (test code = Rare 517) SQUAMOUS EPITHELIAL (BEAKER) < /HPF (test code = 516) CRYSTALS, URINE (BEAKER) (test None Seen code = 1521) SOURCE(BEAKER) (test code = 2795) [employer] Chamber Technician ID - [auto]Altitude Chamber Technician ID - techCT, CHEST WITH IV CONTRAST- PE TEST DESIGN 2021-08-12 21:29:00Unlisted Reason for Exam - Click Yes and Enter Reason Below->No[facility] : 1965 Sex: FFINALREPORT CLINICAL HISTORY: PE suspected, intermediate prob, positive D- dimer FINDINGS: Multiple axial images of the chest were performed after the uncomplicated administration of IV contrast, utilizing a pulmonary embolism protocol. Post-processing coronal reformats were created andinterpreted. This exam was performed according to our [...] mediastinum or tom. Skeleton: Age indeterminant moderate co mpression deformity of the vertebral body of T4 Limited images of upper abdomen: Cirrhotic hepatic morphology. Partially visualized splenomegaly. IMPRESSION: No pulmonary embolism or acute cardiopulmonary abnormality. Age indeterminate moderate compression deformity of the vertebral body of T4. Pleasecorrelate with clinical history. Cirrhotic hepatic morphology and partially visualized splenomegaly.Signed: Hi Crowley MDReport Verified Date/Time: 08/12/2021 21:29:40 SENSITIVITY TROPONIN [id number] 20:29:42 Test Item Value Reference Range Interpretation Comments HIGH SENSITIVITY < pg/ml See_Comment [Automated message] TROPONIN I (test code = The system which [id number]) generated this result transmitted ref erence range: <=17. Th e reference range was not used to interpr et this result as normal/abnormal . Altitude Chamber Technician ID - DBThe CRAFT RECRUITER STAT High Sensitivity Troponin-I results should be used in conjunctionwith other diagnostic information such as ECG, clinical observations and information, and patient symptoms to aid in the diagnosis of SC.SARS-COV2/RT-PCR ([facility])2021-08-12 18:48:38 Test Item Value Reference Range Interpretation Comments SARS-COV2/RT-PCR Negative Negative The SARS-Co V-2 target (test code = nucleic acids a re not [id number]) detected in thi s specimen. Negative result [...] This SARS CoV-2 test is a rapid, real-time RT-PC R test intended for th e qualitative detection [...] Food, Drug and Cosmetic Act, 21 U.S.C. 360bbb-3(b)(1), unless the authorization is terminated or revoked sooner. Fact Sheet for Healthcare Providers: https://www.[employer], [employer] m/Documents/Xpert%20Xpress%20SARS%20CoV-2/Fact%20Sheets/302-3802%39XOQB-FNQ-8%20 HEALTHCARE%20PROVIDERS%20FACT%20SHEET.pdf Fact Sheet for Healthcare Patients: https://www.[employer]/Documents/Xpert%20Xp ress%20SARS%20CoV-2/Fact%20Sheets/3023801%21AJTB-MHN-3%20PATIENT%20FACT%20SHEET .boaO-[id number] 17:19:51 Test Item Value Reference Range Interpretation [...] exclusion of thrombosis is within 95-100% range. PT/[id number] 17:17:52 Test Item Value Reference Range Interpretation [...] mechanical heart valves.RAD, CHEST, 1 VIEW, NON [id number] 17:15:00Reason for exam:->CHEST PAINShould this be performed at the bedside?->Yes[facility]LE[facility] : 1965 Sex: FFINALREPORT INDICATION: CHEST PAIN COMPARISON: 04/11/21 TECHNIQUE: Single frontal view of the chest. FINDINGS: Lungs and pleura: Clear lungs. No effusion.Heart and mediastinum: Normal heart size. Unremarkable mediastinal contours.Osseous structures: No acute abnormality.Other: None. IMPRESSION: No acute intrathoracic abnormality. Signed: Romina Salamanca [facility] Verified Date/Time: 08/12/2021 17:15:07 B-TYPE NATRIURETIC FACTOR (BNP)2021-08-12 17:08:30 Test Item Value Reference Range Interpretation Comments B-TYPE NATRIURETIC PEPTIDE (PELONAKER) 215 pg/mL 0-100 H (test code = 700) [facility] Chamber Technician ID - PIAYA LHIGH SENSITIVITY TROPONIN [id number] 17:08:09 Test Item Value Reference Range Interpretation Comments HIGH SENSITIVITY < pg/ml See_Comment [Automated message] TROPONIN I (test code = The system which [id number]) generated this result transmitted ref erence range: <=17. Th e reference range was not used to interpr et this result as normal/abnormal . [facility] Chamber Technician ID - PIAYA LThe CRAFT RECRUITER STAT High Sensitivity Troponin-I results should be used in conjunction with other diagnostic information such as ECG, clinical observations and information, and patient symptoms to aid in the diagnosis of SC.COMPREHENSIVE METABOLIC [id number] 17:02:31 Test Item Value Reference Range Interpretation [...] S NOT APPLICABLE FOR DIALYSIS PATIEN TS. Alt[facility] Chamber Technician ID - PIAYA [id number] 17:02:31 Test Item Value Reference Range Interpretation Comments MAGNESIUM (BEAKER) (test code = 1.7 mg/dL 1.6-2.6 627) Alt[facility] Chamber Technician ID - DENA [id number] 17:02:31 Test Item Value Reference Range Interpretation Comments LIPASE (BEAKER) (test code = 749) 119 U/L 8-78 H [facility] Chamber Technician ID - DENA [id number] 16:59:45 Test Item Value Reference Range Interpretation Comments AMMONIA (BEAKER) (test 67 mol/L 18-72 Speci men slightly code = 348) hemolyzed Alt[employer] Chamber Technician ID - DENA LCBC W/PLT COUNT & AUTO [id number] 16:48:21 Test Item Value Reference Range Interpretation [...] = 2801) CBC W/PLT COUNT & AUTO [id number] 13:19:26 Test Item Value Reference Range Interpretation [...] (BEAKER) (test code = 2801) BASIC METABOLIC [id number] 13:08:56 Test Item Value Reference Range Interpretation [...] S NOT APPLICABLE FOR DIALYSIS PATIEN TS. Alt[facility] Chamber Technician ID - MARCUS WHEPATIC FUNCTION [id number] 13:08:56 Test Item Value Reference Range Interpretation [...] (test code = 32 U/L 6-55 347) Alt[facility] Chamber Technician ID - MARCUS WPROTHROMBIN TIME/[id number] 13:08:35 Test Item Value Reference Range Interpretation Comments PROTIME (BEAKER) 14.9 seconds 11.9-14.2 H (test code = 759) INR (BEAKER) (test 1.19 See_Comment [Automat ed message] code = 370) The system [employer] generated this result transmitted ref erence range: <=5.90. The reference range was not used to int erpret this result as normal/abnormal . RECOMMENDED COUMADIN/WARFARIN INR THERAPY RANGESSTANDARD DOSE: 2.0 - 3.0 Includes: PROPHYLAXIS for venous thrombosis, systemic embolization; TREATMENT for venous thrombosis and/or pulmonary embolus.HIGH RISK: Target INR is 2.5-3.5 for patients with mechanical heart valves.BLOOD GAS, [id number] 11:39:25 Test Item Value Reference Range Interpretation [...] code = 1819) 21.0 DRUG SCREEN, URINE, [id number] 09:02:51 Test Item Value Reference Range Interpretation Comments SCAN RESULT (test code = See scanned result [id number]) See scanned resultMR, ABDOMEN, [id number] 14:20:00Unlisted Reason for Exam - Click Yes and Enter Reason Below->YesUnlisted Reason for Exam->cirrhosis [facility] : 1965 Sex: FFINAL REPORT TECHNIQUE: MRI of the abdomen WITHOUT and WITH intravenous contrast. INDICATION: Unlisted Reason for Examcirrhosis. COMPARISON: CTs dating back to 01/14/2021 FINDINGS: LOWERTHORAX: Unremarkable. LIVER: Nodular, cirrhotic liver. There are a few scattered areas of arterial phase hyperenhancement the periphery of the liver. A couple of more rounded areas of arterial phase hyp erenhancement the periphery of the liver measure up to 0.5 cm in segment on axial arterial phase image 57. LI-RADS 3. BILIARY: Sludge and/or stones in the gallbladder. The gallbladder wall is mildlythickened. The common bile duct is normal in [...] retroperitoneal lymph node measures 0.9 cm and is unchanged from 03/07/2021 and 01/14/2021. VESSELS: The right hepatic artery originates directly from the celiac axis. The left hepatic artery originates from the common hepatic artery. The main portal vein is patent andmeasures 1.5 cm in diameter. Small esophageal varices. [...] similar to the CT from 01/14/2021. No definite distal obstruction is seen. If the patient has an obstructive pattern of liver function tests, consider further evaluation with ERCP. Signed: Damon Cormier Verified Date/Time: 04/18/2021 14:20:11 Reading Location: [facility] Diagnostic Imaging Reading Room - [place] [address] ELLANEOUS LAB [id number] 08:34:53 Test Item Value Reference Range Interpretation Comments SCAN RESULT (test code = see scanned result [id number]) see scanned resultPOCT-GLUCOSE [id number] 12:24:48 Test Item Value Reference Range Interpretation Comments POC-GLUCOSE METER 225 mg/dL 70-110 H : TESTED A T [facility] 6720 ([place]) (test code = [facility], 1538) 41234: Altitude Chamber Technician/Techni sanjeev ID = [id number] for MA RTINEZ, KASSANDRA POCT-GLUCOSE [id number] 07:31:47 Test Item Value Reference Range Interpretation Comments POC-GLUCOSE METER 254 mg/dL 70-110 H : TESTED A T [facility] 67[address] (BEAKER) (test code = [facility], 1538) 14816: Altitude Chamber Technician/Techni sanjeev ID = [id number] for MA RTINEZ, KASSANDRA [id number] 05:54:17 Test Item Value Reference Range Interpretation Comments MAGNESIUM (BEAKER) (test code = 1.7 mg/dL 1.6-2.6 627) Altitude Chamber Technician ID - ASTRID [id number] 05:54:17 Test Item Value Reference Range Interpretation Comments PHOSPHORUS (BEAKER) (test code = 3.3 mg/dL 2.3-4.7 604) Altitude Chamber Technician ID - ASTRID GCOMPREHENSIVE METABOLIC [id number] 05:54:16 Test Item Value Reference Range Interpretation [...] S NOT APPLICABLE FOR DIALYSIS PATIEN TS. Altitude Chamber Technician ID - ASTRID GPROTHROMBIN TIME/[id number] 05:24:25 Test Item Value Reference Range Interpretation Comments PROTIME (BEAKER) 15.5 seconds 11.9-14.2 H (test code = 759) INR (BEAKER) (test 1.25 See_Comment [Automat ed message] code = 370) The system [employer] generated this result transmitted ref erence range: <=5.90. The reference range was not used to int erpret this result as normal/abnormal . RECOMMENDED COUMADIN/WARFARIN INR THERAPY RANGESSTANDARD DOSE: 2.0 - 3.0 Includes: PROPHYLAXIS for venous thrombosis, systemic embolization; TREATMENT for venous thrombosis and/or pulmonary embolus.HIGH RISK: Target INR is 2.5-3.5 for patients with mechanical heart valves.CBC W/PLT COUNT & AUTO [id number] 05:13:34 Test Item Value Reference Range Interpretation [...] PERCENT (BEAKER) (test code = 2801) POCT-GLUCOSE [id number] 20:54:45 Test Item Value Reference Range Interpretation Comments POC-GLUCOSE METER 369 mg/dL 70-110 H : TESTED A T [facility] 6720 (BEAKER) (test code = [facility], [employer]) [address]99[address]: Altitude Chamber Technician/Techni sanjeev ID = [id number] for Co ok, Niki POCT-GLUCOSE [id number] 17:44:33 Test Item Value Reference Range Interpretation Comments POC-GLUCOSE METER 73 mg/dL 70-110 : TESTED A T [facility] 6720 (BEAKER) (test code = [facility], [facility]8) [address]: Altitude Chamber Technician/Techni sanjeev ID = [id number] for FAIT H, QUETA POCT-GLUCOSE [id number] 12:23:38 Test Item Value Reference Range Interpretation Comments POC-GLUCOSE METER 175 mg/dL 70-110 H : TESTED A T [facility] 6720 (BEAKER) (test code = [facility], [facility]8) [address]38[address]: Altitude Chamber Technician/Techni sanjeev ID = [id number] for FA ITH, QUETA POCT-GLUCOSE [id number] 08:14:03 Test Item Value Reference Range Interpretation Comments POC-GLUCOSE METER 173 mg/dL 70-110 H : TESTED A T [facility] 6720 (BEAKER) (test code = [facility], [facility]8) [address]89[address]: Altitude Chamber Technician/Techni sanjeev ID = [id number] for QUETA VILLASEÑOR COMPREHENSIVE METABOLIC [id number] 04:34:04 Test Item Value Reference Range Interpretation [...] S NOT APPLICABLE FOR DIALYSIS PATIEN TS. Altitude Chamber Technician ID - ASTRID [id number] 04:34:03 Test Item Value Reference Range Interpretation Comments MAGNESIUM (BEAKER) 1.7 mg/dL 1.6-2.6 Specimen slightly (test code = 627) hemolyzed Altitude Chamber Technician ID - ASTRID [id number] 04:34:03 Test Item Value Reference Range Interpretation Comments PHOSPHORUS (BEAKER) 4.3 mg/dL 2.3-4.7 Specimen slightly (test code = 604) hemolyzed [employer] Chamber Technician ID - ASTRID GPROTHROMBIN TIME/[id number] 04:23:20 Test Item Value Reference Range Interpretation Comments PROTIME (BEAKER) 14.9 seconds 11.9-14.2 H (test code = 759) INR (BEAKER) (test 1.18 See_Comment [Automat ed message] code = 370) The system [employer] generated this result transmitted ref erence range: <=5.90. The reference range was not used to int erpret this result as normal/abnormal . RECOMMENDED COUMADIN/WARFARIN INR THERAPY RANGESSTANDARD DOSE: 2.0 - 3.0 Includes: PROPHYLAXIS for venous thrombosis, systemic embolization; TREATMENT for venous thrombosis and/or pulmonary embolus.HIGH RISK: Target INR is 2.5-3.5 for patients with mechanical heart valves.CBC W/PLT COUNT & AUTO [id number] 04:08:50 Test Item Value Reference Range Interpretation [...] PERCENT (BEAKER) (test code = 2801) POCT-GLUCOSE [id number] 22:28:39 Test Item Value Reference Range Interpretation Comments POC-GLUCOSE METER 133 mg/dL 70-110 H : TESTED A T [facility] 6720 (BEAKER) (test code = [facility], 1538) 88125: Altitude Chamber Technician/Techni sanjeev ID = [id number] for [place] RBAJAL, ANGELINA SARS-COV2/RT-PCR ([facility])2021-04-12 21:36:05 Test Item Value Reference Range Interpretation Comments SARS-COV2/RT-PCR Negative Negative The SARS-Co V-2 target (test code = nucleic acids a re not [id number]) detected in thi s specimen. Negative result [...] This SARS CoV-2 test is a rapid, real-time RT-PC R test intended for th e qualitative detection [...] Food, Drug and Cosmetic Act, 21 U.S.C. 360bbb-3(b)(1), unless the authorization is terminated or revoked sooner. Fact Sheet for Healthcare Providers: https://www.[employer], [employer]icios para propietarios m/Documents/Xpert%20Xpress%20SARS%20CoV-2/Fact%20Sheets/3023802%94PYXN-UBG-6%20 HEALTHCARE%20PROVIDERS%20FACT%20SHEET.pdf Fact Sheet for Healthcare Patients: https://www.[employer]/Documents/Xpert%20Xp ress%20SARS%20CoV-2/Fact%20Sheets/3023801%85YRNM-DWB-2%20PATIENT%20FACT%20SHEET .pdfCOMPREHENSIVE METABOLIC [id number] 18:32:37 Test Item Value Reference Range Interpretation [...] S NOT APPLICABLE FOR DIALYSIS PATIEN TS. Alt[employer] Chamber Technician ID - DBOperator ID - DBHIGH SENSITIVITY TROPONIN [id number] 18:25:54 Test Item Value Reference Range Interpretation Comments HIGH SENSITIVITY < pg/ml See_Comment [Automated message] TROPONIN I (test code = The system which 2484006) generated this result transmitted ref erence range: <=17. Th e reference range was not used to interpr et this result as normal/abnormal . Altitude Chamber Technician ID - DBThe CRAFT RECRUITER STAT High Sensitivity Troponin-I results should be used in conjunctionwith other diagnostic information such as ECG, clinical observations and information, and patient symptoms to aid in the diagnosis of SC.[id number] 18:21:14 Test Item Value Reference Range Interpretation Comments LIPASE (BEAKER) (test code = 749) 102 U/L 8-78 H Altitude Chamber Technician ID - DBPROTHROMBIN TIME/[id number] 18:16:11 Test Item Value Reference Range Interpretation [...] mechanical heart valves.CBC W/PLT COUNT & AUTO [id number] 18:02:09 Test Item Value Reference Range Interpretation [...] code = 2801) MYOCARD IMAGING, MULTI, PHARM, [id number] 16:04:00Unlisted Reason for Exam - Click Yes and Enter Reason Below->YesUnlisted Reason for Exam->[facility] 1965 Sex: FFINALREPORT PROCEDURE: MYOCARDIAL PERFUSION SPECT IMAGING (Rest/Stress)CPT CODE: 35511 INDICATION: Cardiac evaluation prior to liver transplant CARDIOVASCULAR PROFILE:CAD History: NoneRisk Factors: Diabetes, hyperlipidemiaBMI: 25.6Medications: propanolol STRESS PROTOCOL:Pharmacologic st ress was achieved with a 10-second intravenous infusion of regadenoson 0.4 mg. The radiopharmaceutical was administered 30 seconds after the start of the regadenoson infusion. IMAGING PROTOCOL:10.5 mCiof Tc-99m sestamibi was injected intravenously at rest, and non-gated SPECT images were obtained. Then, 32.4 mCi of Tc-99m sestamibi was injected intravenously at peak stress, and gated SPECT images were obtained. REST FINDINGS:HR: 66/minBP: 158/80 [...] MDReport Verified Date/Time: 04/12/2021 16:04:45 Reading Location: [address] Reading Room [id number] 10:43:26 Test Item Value Reference Range Interpretation Comments T3 TOTAL (BEAKER) (test code = 0.94 ng/mL 0.60-1.81 656) Altitude Chamber Technician ID - [id number] 14:22:58 Test Item Value Reference Range Interpretation Comments RPR SCREEN (BEAKER) (test code = Nonreactive Nonreactive 420) CRYPTOCOCCAL [id number] 14:21:41 Test Item Value Reference Range Interpretation Comments CRYPTOCOCCAL ANTIGEN, SERUM Negative Negative, Interference (BEAKER) (test code = 1828) RAD, MANDIBLE, MIN 4 [id number] 13:53:00Reason for Exam:->[facility] : 1965 Sex: FFINALREPORT MANDIBLE 5 VIEWS HISTORY: Liver transplant evaluation COMPARISON: No comparison mandibular imaging FINDINGS: Mitul, PA, bilateral oblique, and lateral images of the mandible were obtained. No mandibular fracture is visualized. No bony destruction is visualized in the mandible. No periapical abscess or dental caries are visualized in the mandible. No mandibular molars are present. No air-fluid levels are visualized in the paranasal sinuses. Asymmetric opacity overlying the left maxillary antrum relative to the right on the Mitul view, nonspecific and possibly just due to overlying soft tissues. Signed: Urban Aparicio MDReport Verified Date/Time: 04/11/2021 13:53:12 Reading Location: [facility] Radiology Reading Room RUBELLA ANTIBODY, [id number] 13:46:29 Test Item Value Reference Range Interpretation Comments RUBELLA IGG QUANTITATION (BEAKER) 53.0 IU/mL <8.0 H (test code = 572) Rubella IgG Result Interpretation: </= 7.0 IU/mL Negative - Presumed non- immune 8.0 - 9.9 IU/mL Equivocal >= 10.0 IU/mL Positive - Presumed immune VARICELLA ZOSTER ANTIBODY, [id number] 13:46:29 Test Item Value Reference Range Interpretation Comments VARICELLA ZOSTER IGG (AL) (BEAKER) 5.6 (test code = 3197) VARICELLA ZOSTER RESULT INTERPRETATIONS: <=0.8 Al Nonreactive: Presumed non- immune to VZV 0.9-1.0Al Equivocal >=1.1 Al Reactive: Presumed immune to VZV CYTOMEGALOVIRUS ANTIBODY, [id number] 13:46:22 Test Item Value Reference Range Interpretation Comments CYTOMEGALOVIRUS, IGG (BEAKER) Positive Negative, Equivocal A (test code = 3429) CMV IgG Result Interpretation: </= 0.8 Al Negative 0.9-1.0 Al Equivocal >/=1.1 Al PositiveEBV ANTIBODY, [id number] 13:46:22 Test Item Value Reference Range Interpretation Comments SHAYY LAMAS VIRAL CAPSID Positive Negative, Equivocal A ANTIGEN IGG (BEAKER) (test code = 3415) Shayy Lamas Viral Capsid Antigen IgG Result Interpretation: </= 0.8 Al Negative 0.9-1.0 Al Equivocal >/= 1.1 Al PositiveEBV ANTIBODY, [id number] 13:46:22 Test Item Value Reference Range Interpretation Comments SHAYY LAMAS VIRAL CAPSID Negative Negative, Equivocal ANTIGEN IGM (BEAKER) (test code = 3418) Shayy Lamas Viral Capsid Antigen IgM Result Interpretation: </= 0.8 Al Negative 0.9-1.0 Al Equivocal >/= 1.1 Al PositiveRAD, CHEST, 2 VIEWS 2021-04-11 13:37:00Reason for Exam:->[facility]iver [facility] : 1965 Sex: FFINALREPORT HISTORY: Liver transplant evaluation COMPARISON: Sagittal reformatted images of the lumbar spine and lower thoracic spine from a CT abdomen and pelvis of 03/07/2021 FINDINGS:The lungs are clear. No pleural effusions or pneumothorax. The heart shadow is normal in size. The thoracic aorta is normal caliber. Severe chronic L1 compression fracture. Mild to moderate T4 compression fracture. No comparison thoracic spine imaging is available to determine the acuity of this. IMPRESSION: 1. No evidence of acute cardiopulmonary disease. 2. T4 and L1 compression fractures. Signed: Urban Aparicio MDReport Verified Date/Time: 04/11/2021 13:37:16 Reading Location: [facility] Radiology Reading Room BLOOD GAS, [id number] 11:39:39 Test Item Value Reference Range Interpretation [...] (test code = 1819) 21.0 VITAMIN D, [id number] 10:29:34 Test Item Value Reference Range Interpretation Comments VITAMIN D 25-OH (BEAKER) (test 13.1 ng/mL 6.6-49.9 code = 2764) Effective 03/12/2017: Reference Range ChangeNew: 6.6-49.9 ng/mL Previous: 13.0- 47.8 ng/mLRecommendedVitamin D Target Range: 30.0-40.0 ng/mLOperator ID - DENA LHEMOGLOBIN [id number] 10:20:10 Test Item Value Reference Range Interpretation Comments HEMOGLOBIN A1C (BEAKER) (test code = 6.7 % 4.3-6.1 H 368) CARCINOEMBRYONIC ANTIGEN (CEA)2021-04-11 10:03:38 Test Item Value Reference Range Interpretation Comments CARCINOEMBRYONIC ANTIGEN (BEAKER) 14.5 ng/mL 0.0-5.0 H (test code = 685) Altitude Chamber Technician ID - DENA LALPHA FETOPROTEIN (AFP), TUMOR [id number] 10:03:38 Test Item Value Reference Range Interpretation Comments ALPHA-FETOPROTEIN (BEAKER) (test 5.4 ng/mL <10.0 code = 1094) Altitude Chamber Technician ID - DENA LURINALYSIS W/ [id number] 09:49:36 Test Item Value Reference Range Interpretation [...] = 1521) SOURCE(BEAKER) (test code = 2795) Altitude Chamber Technician ID - [auto]Altitude Chamber Technician ID - [id number] 09:08:39 Test Item Value Reference Range Interpretation Comments T4 TOTAL (BEAKER) (test code = 895) 5.9 ug/dL 4.9-11.7 Altitude Chamber Technician ID - DENA [id number] 09:08:39 Test Item Value Reference Range Interpretation Comments THYROID STIMULATING HORMONE 2.023 uIU/mL 0.350-4.940 (BEAKER) (test code = 772) Altitude Chamber Technician ID - DENA LPREGNANCY SCREEN, [id number] 08:59:02 Test Item Value Reference Range Interpretation Comments TEST URINE (BEAKER) (test Negative code = 583) [id number] 08:53:55 Test Item Value Reference Range Interpretation Comments TRANSFERRIN (BEAKER) (test code = 248 mg/dL 174-382 541) Altitude Chamber Technician ID - DENA LBILIRUBIN, [id number] 08:50:00 Test Item Value Reference Range Interpretation Comments BILIRUBIN DIRECT (BEAKER) (test 0.3 mg/dL 0.1-0.5 code = 706) Altitude Chamber Technician ID Joaquin FERNANDES LGAMMA GLUTAMYL TRANSFERASE (GGT)2021-04-11 08:50:00 Test Item Value Reference Range Interpretation Comments GAMMA GLUTAMYL TRANSFERASE (BEAKER) 106 U/L 9-64 H (test code = 364) Altitude Chamber Technician ID - DENA LURIC [id number] 08:49:55 Test Item Value Reference Range Interpretation Comments URIC ACID (BEAKER) (test code = 3.6 mg/dL 2.6-7.2 773) Altitude Chamber Technician ID - DENA LLIPID [id number] 08:49:55 Test Item Value Reference Range Interpretation Comments TRIGLYCERIDES (BEAKER) (test code = 148 mg/dL 540) CHOLESTEROL (BEAKER) (test code = 173 mg/dL 631) HDL CHOLESTEROL (BEAKER) (test code 43 mg/dL = 976) LDL CHOLESTEROL CALCULATED (BEAKER) 100 mg/dL (test code = 633) Triglyceride Reference Range: Low Risk <150 Borderline 150-199 High Risk 200- 499 Very High Risk >=500Cholesterol Reference Range: Low Risk <200 Borderline 200-239 High Risk >240HDL Cholesterol Reference Range: Low Risk >=60 High Risk <40LDL Cholesterol Reference Range: Optimal <100 Near Optimal 100-129 Borderline 130-159 High 160-189 Very High >=190 Altitude Chamber Technician ID - DENA LCOMPREHENSIVE METABOLIC [id number] 08:49:54 Test Item Value Reference Range Interpretation [...] S NOT APPLICABLE FOR DIALYSIS PATIEN TS. Altitude Chamber Technician ID - DENA [id number] 08:49:54 Test Item Value Reference Range Interpretation Comments MAGNESIUM (BEAKER) (test code = 1.8 mg/dL 1.6-2.6 627) Altitude Chamber Technician ID - DENA [id number] 08:44:52 Test Item Value Reference Range Interpretation Comments ETHANOL (BEAKER) < mg/dL See_Comment [Automated message] The (test code = 400) system [employer] generated this result tra nsmitted reference range : <=10. The reference r mago was not used to int erpret this result as normal/abnormal . Altitude Chamber Technician ID - DENA [id number] 08:32:06 Test Item Value Reference Range Interpretation Comments FIBRINOGEN LEVEL (BEAKER) (test 265 mg/dl 225-434 code = 658) [id number] 08:32:06 Test Item Value Reference Range Interpretation Comments PARTIAL THROMBOPLASTIN TIME 29.0 seconds 22.5-36.0 (BEAKER) (test code = 760) PROTHROMBIN [id number] 08:31:30 Test Item Value Reference Range Interpretation Comments PROTIME (BEAKER) 14.1 seconds 11.9-14.2 (test code = 759) INR (BEAKER) (test 1.11 See_Comment [Automat ed message] code = 370) The system [employer] generated this result transmitted ref erence range: <=5.90. The reference range was not used to int erpret this result as normal/abnormal . RECOMMENDED COUMADIN/WARFARIN INR THERAPY RANGESSTANDARD DOSE: 2.0 - 3.0 Includes: PROPHYLAXIS for venous thrombosis, systemic embolization; TREATMENT for venous thrombosis and/or pulmonary embolus.HIGH RISK: Target INR is 2.5-3.5 for patients with mechanical heart valves.CBC W/PLT COUNT & AUTO [id number] 08:25:27 Test Item Value Reference Range Interpretation [...] PERCENT (BEAKER) (test code = 2801) CALCIUM, [id number] 08:17:07 Test Item Value Reference Range Interpretation Comments CALCIUM IONIZED (BEAKER) (test 1.20 mmol/L 1.12-1.27 code = 698) PH, BLOOD (BEAKER) (test code = 7.38 1810) COMPREHENSIVE METABOLIC [id number] 09:52:02 Test Item Value Reference Range Interpretation [...] S NOT APPLICABLE FOR DIALYSIS PATIEN TS. Altitude Chamber Technician ID - DENA LOperator ID - JAHAIRACRISTINA LPOCT-GLUCOSE [id number] 08:16:36 Test Item Value Reference Range Interpretation Comments POC-GLUCOSE METER 222 mg/dL 70-110 H : TESTED A T [facility]20 (BEAKER) (test code = [facility] [place], 1538) [address]: Altitude Chamber Technician/Techni sanjeev ID = [id number] for Bess Lares PROTHROMBIN TIME/[id number] 07:26:15 Test Item Value Reference Range Interpretation Comments PROTIME (BEAKER) 15.7 seconds 11.9-14.2 H (test code = 759) INR (BEAKER) (test 1.27 See_Comment [Automat ed message] code = 370) The system [employer] generated this result transmitted ref erence range: <=5.90. The reference range was not used to int erpret this result as normal/abnormal . RECOMMENDED COUMADIN/WARFARIN INR THERAPY RANGESSTANDARD DOSE: 2.0 - 3.0 Includes: PROPHYLAXIS for venous thrombosis, systemic embolization; TREATMENT for venous thrombosis and/or pulmonary embolus.HIGH RISK: Target INR is 2.5-3.5 for patients with mechanical heart valves.CBC W/PLT COUNT & AUTO [id number] 07:19:16 Test Item Value Reference Range Interpretation [...] PERCENT (BEAKER) (test code = 2801) POCT-GLUCOSE [id number] 23:04:19 Test Item Value Reference Range Interpretation Comments POC-GLUCOSE METER 280 mg/dL 70-110 H : TESTED A T [facility] 6720 (BEAKER) (test code = [facility] [place], 1538) [address]: Altitude Chamber Technician/Techni sanjeev ID = [id number] for ON UOHA, JAROD POCT-GLUCOSE [id number] 16:00:21 Test Item Value Reference Range Interpretation Comments POC-GLUCOSE METER 166 mg/dL 70-110 H : TESTED A T [facility] 6720 (BEAKER) (test code = [facility], 1538) 23627: Altitude Chamber Technician/Techni sanjeev ID = [id number] for Bess Lares HEMOGLOBIN AND [id number] 13:22:38 Test Item Value Reference Range Interpretation Comments HEMOGLOBIN (BEAKER) (test code = 10.8 GM/DL 11.2-15.7 L 410) HEMATOCRIT (BEAKER) (test code = 32.9 % 34.1-44.9 L 411) Altitude Chamber Technician ID - [id number] [id number] 11:43:51 Test Item Value Reference Range Interpretation Comments HEMOGLOBIN A1C (BEAKER) (test code = 6.4 % 4.3-6.1 H 368) POCT-GLUCOSE [id number] 11:23:09 Test Item Value Reference Range Interpretation Comments POC-GLUCOSE METER 181 mg/dL 70-110 H : TESTED A T [facility] 6720 (BEAKER) (test code = [facility], 1538) 00802: Altitude Chamber Technician/Techni sanjeev ID = [id number] for Bess Lares POCT-GLUCOSE [id number] 07:28:05 Test Item Value Reference Range Interpretation Comments POC-GLUCOSE METER 189 mg/dL 70-110 H : TESTED A T [facility] 6720 (BEAKER) (test code = [facility], 1538) 6[address]: Altitude Chamber Technician/Techni sanjeev ID = [id number] for Bess Lares HEPATIC FUNCTION [id number] 06:10:18 Test Item Value Reference Range Interpretation [...] (test code = 26 U/L 6-55 347) Altitude Chamber Technician YOSEF VELOZ [id number] 06:10:17 Test Item Value Reference Range Interpretation Comments MAGNESIUM (BEAKER) (test code = 1.5 mg/dL 1.6-2.6 L 627) Altitude Chamber Technician ID - MAGDIEL MBASIC METABOLIC [id number] 06:10:16 Test Item Value Reference Range Interpretation [...] S NOT APPLICABLE FOR DIALYSIS PATIEN TS. Altitude Chamber Technician ID Joaquin VELOZ MPROTHROMBIN TIME/[id number] 05:40:00 Test Item Value Reference Range Interpretation Comments PROTIME (BEAKER) 15.9 seconds 11.9-14.2 H (test code = 759) INR (BEAKER) (test 1.30 See_Comment [Automat ed message] code = 370) The system [employer] generated this result transmitted ref erence range: <=5.90. The reference range was not used to int erpret this result as normal/abnormal . RECOMMENDED COUMADIN/WARFARIN INR THERAPY RANGESSTANDARD DOSE: 2.0 - 3.0 Includes: PROPHYLAXIS for venous thrombosis, systemic embolization; TREATMENT for venous thrombosis and/or pulmonary embolus.HIGH RISK: Target INR is 2.5-3.5 for patients with mechanical heart valves.HEMOGLOBIN AND [id number] 05:35:58 Test Item Value Reference Range Interpretation Comments HEMOGLOBIN (BEAKER) (test code = 10.2 GM/DL 11.2-15.7 L 410) HEMATOCRIT (BEAKER) (test code = 32.0 % 34.1-44.9 L 411) CBC W/PLT COUNT & AUTO [id number] 05:35:56 Test Item Value Reference Range Interpretation [...] PERCENT (BEAKER) (test code = 2801) POCT-GLUCOSE [id number] 23:23:05 Test Item Value Reference Range Interpretation Comments POC-GLUCOSE METER 151 mg/dL 70-110 H : TESTED A T [facility] 6720 (BEAKER) (test code = [facility], 1538) 46657: Altitude Chamber Technician/Techni sanjeev ID = [id number] for ON UOHA, JAROD HEMOGLOBIN AND [id number] 23:02:32 Test Item Value Reference Range Interpretation Comments HEMOGLOBIN (BEAKER) (test code = 10.9 GM/DL 11.2-15.7 L 410) HEMATOCRIT (BEAKER) (test code = 34.1 % 34.1-44.9 411) Altitude Chamber Technician ID - 6000POCT-GLUCOSE [id number] 19:23:43 Test Item Value Reference Range Interpretation Comments POC-GLUCOSE METER 174 mg/dL 70-110 H : TESTED A T [facility] 6720 (BEAKER) (test code = [facility], 1538) 91320: Altitude Chamber Technician/Techni sanjeev ID = [id number] for Aisha Britt SARS-COV2/RT-PCR ([facility])2021-03-23 14:56:48 Test Item Value Reference Range Interpretation Comments SARS-COV2/RT-PCR Negative Negative The SARS-Co V-2 target (test code = nucleic acids a re not [id number]) detected in thi s specimen. Negative result [...] This SARS CoV-2 test is a rapid, real-time RT-PC R test intended for th e qualitative detection [...] Food, Drug and Cosmetic Act, 21 U.S.C. 360bbb-3(b)(1), unless the authorization is terminated or revoked sooner. Fact Sheet for Healthcare Providers: https://www.[employer], [employer] m/Documents/Xpert%20Xpress%20SARS%20CoV-2/Fact%20Sheets/302-3802%13PHOK-YXB-8%20 HEALTHCARE%20PROVIDERS%20FACT%20SHEET.pdf Fact Sheet for Healthcare Patients: https://www.[employer]/Documents/Xpert%20Xp ress%20SARS%20CoV-2/Fact%20Sheets/302-3801%72ORDE-PWY-2%20PATIENT%20FACT%20SHEET .[id number] 14:38:02 Test Item Value Reference Range Interpretation Comments LIPASE (BEAKER) (test code = 749) 89 U/L 8-78 H Altitude Chamber Technician ID - EMERSONBASIC METABOLIC [id number] 14:38:01 Test Item Value Reference Range Interpretation [...] S NOT APPLICABLE FOR DIALYSIS PATIEN TS. Altitude Chamber Technician ID - KATEDGARHEPATIC FUNCTION [id number] 14:38:01 Test Item Value Reference Range Interpretation [...] (test code = 32 U/L 6-55 347) Altitude Chamber Technician ID - KATEDGARCBC W/PLT COUNT & AUTO [id number] 14:18:03 Test Item Value Reference Range Interpretation [...] GRANULOCYTES-RELATIVE PERCENT (BEAKER) (test code = 2801) [id number] 14:12:16 Test Item Value Reference Range Interpretation [...] 2.5-3.5 for patients with mechanical heart valves.POCT-GLUCOSE [id number] 15:03:21 Test Item Value Reference Range Interpretation Comments POC-GLUCOSE METER 125 mg/dL 70-110 H : TESTED A T [facility] (BEAKER) (test code = [facility] [place], 1538) 23494: Altitude Chamber Technician/Techni sanjeev ID = [id number] for [place] SHELLEY SUTTON BASIC METABOLIC [id number] 10:30:15 Test Item Value Reference Range Interpretation [...] S NOT APPLICABLE FOR DIALYSIS PATIEN TS. Altitude Chamber Technician ID - PIAYA LCBC W/PLT COUNT & AUTO [id number] 10:18:28 Test Item Value Reference Range Interpretation [...] PERCENT (BEAKER) (test code = 2801) CT, [id number] 18:39:00Unlisted Reason for Exam - Click Yes and Enter Reason Below->YesUnlisted Reason for Exam->TIPSplanningWill this procedure require oral contrast?->No [facility] : 1965 Sex: FFINAL REPORT ABDOMINAL AND PELVIS CT DATED 03/08/2021 COMPARISON: January 14, 2021 CLINICAL INFORMATION: Portal hypertensionTIPS planning TECHNIQUE: Axial images of the abdomen and pelviswere obtained from diaphragm to the pubic symphysis [...] in the liver. Spleen is enlarged measuring approximately 14.5 x 6.6 x 10.17. The splenic, spleen mesenteric, portal, and hepatic veins are patent. Main portal vein measures 1.7 cm. Gallbladder is distended. Several small gallstones are present. No biliary dilatation is noted.Pancreas and adrenals are unremarkable. Both kidneys are [...] hypertension.2. Cholelithiasis without biliary dilatation.3. Diverticulosis and nonspecificwall thickening in the hepatic flexure and transverse colon most likely secondary to nondistention. Signed: Steven Murillo Verified Date/Time: 03/08/2021 18:39:08 Reading Location: [address] Body Reading Room POCT-GLUCOSE [id number] 18:25:50 Test Item Value Reference Range Interpretation Comments POC-GLUCOSE METER 138 mg/dL 70-110 H : TESTED A T [facility] 6720 (BEAKER) (test code = [facility], 1538) [address]: Altitude Chamber Technician/Techni sanjeev ID = [id number] for [place] LLIS, ANAYA POCT-GLUCOSE [id number] 14:11:45 Test Item Value Reference Range Interpretation Comments POC-GLUCOSE METER 207 mg/dL 70-110 H : TESTED A T [facility] 6720 (BEAKER) (test code = [facility], 1538) [address]: Altitude Chamber Technician/Techni sanjeev ID = [id number] for [place] LLIS, ANAYA CBC W/PLT COUNT & AUTO [id number] 05:09:37 Test Item Value Reference Range Interpretation [...] (BEAKER) (test code = 2801) HEPATIC FUNCTION [id number] 05:06:54 Test Item Value Reference Range Interpretation [...] Specimen slightly (test code = 347) hemolyzed Altitude Chamber Technician ID - JAHAIRAAYA LBASIC METABOLIC [id number] 05:06:53 Test Item Value Reference Range Interpretation [...] S NOT APPLICABLE FOR DIALYSIS PATIEN TS. Altitude Chamber Technician ID - PIAYA LPROTHROMBIN TIME/[id number] 04:58:22 Test Item Value Reference Range Interpretation Comments PROTIME (BEAKER) 14.7 seconds 11.9-14.2 H (test code = 759) INR (BEAKER) (test 1.17 See_Comment [Automat ed message] code = 370) The system [employer] generated this result transmitted ref erence range: <=5.90. The reference range was not used to int erpret this result as normal/abnormal . RECOMMENDED COUMADIN/WARFARIN INR THERAPY RANGESSTANDARD DOSE: 2.0 - 3.0 Includes: PROPHYLAXIS for venous thrombosis, systemic embolization; TREATMENT for venous thrombosis and/or pulmonary embolus.HIGH RISK: Target INR is 2.5-3.5 for patients with mechanical heart valves.HIGH SENSITIVITY TROPONIN [id number] 22:25:04 Test Item Value Reference Range Interpretation Comments HIGH SENSITIVITY < pg/ml See_Comment [Automated message] TROPONIN I (test code = The system which [id number]) generated this result transmitted ref erence range: <=17. Th e reference range was not used to interpr et this result as normal/abnormal . Altitude Chamber Technician ID - CDPThe CRAFT RECRUITER STAT High Sensitivity Troponin-I results should be used in conjunction with other diagnostic information such as ECG, clinical observations and information, and patient symptoms to aid in the diagnosis of SC.RAD, CHEST, 1 VIEW, NON [id number] 22:13:00Reason for exam:->RECTAL BLEEDINGReason for exam:->HEMATEMESISShould [facility]?->Yes[facility]LE[facility] : 1965 Sex: FFINALREPORT Chest, 1 view. History: Rectal bleeding and hematemesis. Comparison: None available. Findings: The cardiomediastinal silhouette and pulmonary vasculature are within normal limits for a portable exam. The lungs are clear without evidence of consolidation or effusion. The soft tissues and osseous structures are intact. IMPRESSION: No acute cardiopulmonary abnormality. Signed: Gregorio Cook MDRepcarla Verified Date/Time: 03/07/2021 22:13:00 [id number] 20:49:29 Test Item Value Reference Range Interpretation Comments AMMONIA (BEAKER) (test code = 348) 36 mol/L 18-72 Altitude Chamber Technician ID - EMERSONSARS-COV2/RT-PCR ([facility])2021-03-07 20:32:21 Test Item Value Reference Range Interpretation Comments SARS-COV2/RT-PCR Negative Negative The SARS-Co V-2 target (test code = nucleic acids a re not 8335526) detected in thi s specimen. Negative result [...] This SARS CoV-2 test is a rapid, real-time RT-PC R test intended for th e qualitative detection [...] Food, Drug and Cosmetic Act, 21 U.S.C. 360bbb-3(b)(1), unless the authorization is terminated or revoked sooner. Fact Sheet for Healthcare Providers: https://www.[employer], [employer] m/Documents/Xpert%20Xpress%20SARS%20CoV-2/Fact%20Sheets/3023802%54VIZF-LGF-3%20 HEALTHCARE%20PROVIDERS%20FACT%20SHEET.pdf Fact Sheet for Healthcare Patients: https://www.[employer]/Documents/Xpert%20Xp ress%20SARS%20CoV-2/Fact%20Sheets/3023801%44TJJS-ATQ-5%20PATIENT%20FACT%20SHEET .pdfCOMPREHENSIVE METABOLIC [id number] 19:51:17 Test Item Value Reference Range Interpretation Comments TOTAL PROTEIN 7.6 gm/dL 6.0-8.3 Specimen marke dly (BEAKER) (test code = hemoly zed [...] S NOT APPLICABLE FOR DIALYSIS PATIEN TS. Altitude Chamber Technician ID - [id number] 19:51:17 Test Item Value Reference Range Interpretation Comments LIPASE (BEAKER) (test code = 749) 120 U/L 8-78 H Altitude Chamber Technician ID - EMERSONPT/[id number] 19:47:57 Test Item Value Reference Range Interpretation Comments PROTIME (BEAKER) (test 14.8 seconds 11.9-14.2 H code = 759) INR (BEAKER) (test 1.18 See_Comment [Automat ed code = 370) message] The CIRQ[employer] stem which generated this result transmitted reference [...] mechanical heart valves.CBC W/PLT COUNT & AUTO [id number] 19:37:50 Test Item Value Reference Range Interpretation [...] GRANULOCYTES-RELATIVE PERCENT (BEAKER) (test code = 2801) [id number] 13:29:10 Test Item Value Reference Range Interpretation Comments POC-CREATININE 0.9 mg/dL 0.6-1.3 : TESTED AT [facility] (BEAKER) (test [address], code = 1859) [facility] 7703 0: Altitude Chamber Technician/Techni sanjeev ID = [id number] for Rosanna Edward POC-EGFR (BEAKER) 65 mL/min/1.73M2 (test code = 1860) POCT-GLUCOSE [id number] 12:21:00 Test Item Value Reference Range Interpretation Comments POC-GLUCOSE METER 259 mg/dL 70-110 H : TESTED A T [facility] 6720 (BEAKER) (test code = MIC[facility] R [facility], 1538) [address]: Altitude Chamber Technician/Techni sanjeev ID = [id number] for CHRISTINA CRISTIANONELIA Ortiz BASIC METABOLIC [id number] 10:39:00 Test Item Value Reference Range Interpretation [...] S NOT APPLICABLE FOR DIALYSIS PATIEN TS. Altitude Chamber Technician ID - PIAYA LPOCT-GLUCOSE [id number] 07:22:00 Test Item Value Reference Range Interpretation Comments POC-GLUCOSE METER 208 mg/dL 70-110 H : TESTED A T [facility] 6720 (BEAKER) (test code = [facility] [place], 1538) [address]: Altitude Chamber Technician/Techni sanjeev ID = [id number] for ONELIA REGALADO PROTHROMBIN TIME/[id number] 06:25:00 Test Item Value Reference Range Interpretation Comments PROTIME (BEAKER) 16.9 seconds 11.9-14.2 H (test code = 759) INR (BEAKER) (test 1.40 See_Comment [Automat ed message] code = 370) The system [employer] generated this result transmitted ref erence range: <=5.90. The reference range was not used to int erpret this result as normal/abnormal . RECOMMENDED COUMADIN/WARFARIN INR THERAPY RANGESSTANDARD DOSE: 2.0 - 3.0 Includes: PROPHYLAXIS for venous thrombosis, systemic embolization; TREATMENT for venous thrombosis and/or pulmonary embolus.HIGH RISK: Target INR is 2.5-3.5 for patients with mechanical heart valves.CBC W/PLT COUNT & AUTO [id number] 06:18:00 Test Item Value Reference Range Interpretation [...] PERCENT (BEAKER) (test code = 2801) POCT-GLUCOSE [id number] 21:27:00 Test Item Value Reference Range Interpretation Comments POC-GLUCOSE METER 308 mg/dL 70-110 H : Notified RN/MD: ([facility]) (test code = TESTED AT [place] [address] 1537) [facility], [address]: Altitude Chamber Technician/Techni sanjeev ID = [id number] for Romina Lomeli POCT-GLUCOSE [id number] 18:07:00 Test Item Value Reference Range Interpretation Comments POC-GLUCOSE METER 294 mg/dL 70-110 H : TESTED A T [facility] 6720 ([facility]) (test code = [facility], 153) [address]: Altitude Chamber Technician/Techni sanjeev ID = [id number] for Jessica CABRERA POCT-GLUCOSE [id number] 13:24:00 Test Item Value Reference Range Interpretation Comments POC-GLUCOSE METER 156 mg/dL 70-110 H : TESTED A T [facility] 6720 ([facility]) (test code = [facility], 153) [address]: Altitude Chamber Technician/Techni sanjeev ID = [id number] for Jessica CABRERA CBC W/PLT COUNT & AUTO [id number] 06:50:00 Test Item Value Reference Range Interpretation [...] (BEAKER) (test code = 2801) BASIC METABOLIC [id number] 06:20:00 Test Item Value Reference Range Interpretation [...] S NOT APPLICABLE FOR DIALYSIS PATIEN TS. Altitude Chamber Technician ID - DBPROTHROMBIN TIME/[id number] 05:46:00 Test Item Value Reference Range Interpretation Comments PROTIME (BEAKER) 15.9 seconds 11.9-14.2 H (test code = 759) INR (BEAKER) (test 1.29 See_Comment [Automat ed message] code = 370) The system [employer] generated this result transmitted ref erence range: <=5.90. The reference range was not used to int erpret this result as normal/abnormal . RECOMMENDED COUMADIN/WARFARIN INR THERAPY RANGESSTANDARD DOSE: 2.0 - 3.0 Includes: PROPHYLAXIS for venous thrombosis, systemic embolization; TREATMENT for venous thrombosis and/or pulmonary embolus.HIGH RISK: Target INR is 2.5-3.5 for patients with mechanical heart valves.POCT-GLUCOSE [id number] 05:45:00 Test Item Value Reference Range Interpretation Comments POC-GLUCOSE METER 179 mg/dL 70-110 H : TESTED Pedro Wade [facility] 6720 (MITA) (test code = [facility] [place], 1538) [address]: Altitude Chamber Technician/Techni sanjeev ID = [id number] for Brittni Ly CT, [id number] 18:12:00Unlisted Reason for Exam - Click Yes and Enter Reason Below->NoWill this procedure require oral contrast?->No [facility] CHE[facility]LE[facility] : 1965 Sex: FFINALREPORT CT of the abdomen and pelvis, without contrast Clinical History: Abdominal pain, acute, nonlocalized Technique: CT of the abdomen and pelvis is performed without intravenouscontrast administration. This exam was performed according to our departmental dose optimization program which includes automated exposure control, adjustment of the mA and/or kV according to patient'ssize and/or use of iterative reconstructive technique. Comparison Film: None Discussion: Visualized lower thorax is unremarkable. Liver is cirrhotic. No discrete liver lesion is identified on this noncontrast exam. There is vicariously excreted contrast within the gallbladder. Nonspecific gallbladder w all edema/thickening. A few small stones are also present. No ductal dilatation. Spleen is enlarged and measures 14.4 cm sagittally. The pancreas, and adrenal glands are normal. Kidneys demonstrate no hydronephrosis, contour deforming lesion, or radiopaque stone. No evidence of bowel obstruction, or abnormal bowel wall thickening. There is liquid content in colon which could reflect diarrhea. Note bowel evaluation is suboptimal in the absence of IV and oral contrast. There is no pericecal inflammatory change. In the pelvis, the bladder, uterus and adnexa are unremarkable. There is mild vascular calcification. Increased number of upper abdomen lymph nodes are likely reactive. There is trace perihepa tic ascites. No free air. There is a compression deformity of L1 vertebral body, with superior endplate retropulsion, age indeterminate. Impression: Liquid content in colon suggests diarrhea. Cirrhosisand splenomegaly. Trace ascites. Cholelithiasis. There is nonspecific gallbladder wall thickening, which could be related to portal hypertension, correlate clinically to exclude cholecystitis. Age indeterminate compression deformity of L1. Signed: Omid Gao Verified Date/Time: 01/14/2021 18:12:20 Reading Location: [facility] B1 C013X Ortho Consult Reading Room POCT-GLUCOSE [id number] 17:52:00 Test Item Value Reference Range Interpretation Comments POC-GLUCOSE METER 239 mg/dL 70-110 H : [facility] (test code = [facility], 1538) [address]: Altitude Chamber Technician/Techni sanjeev ID = [id number] for ONELIA REGALADO HEMOGLOBIN AND [id number] 13:32:00 Test Item Value Reference Range Interpretation Comments HEMOGLOBIN (BEAKER) (test code = 7.5 GM/DL 11.2-15.7 L 410) HEMATOCRIT (BEAKER) (test code = 24.7 % 34.1-44.9 L 411) Altitude Chamber Technician ID - [id number] ID - [id number]-GLUCOSE [id number] 12:20:00 Test Item Value Reference Range Interpretation Comments POC-GLUCOSE METER 226 mg/dL 70-110 H : TESTED A T [facility] 6720 (BEAKER) (test code = [facility], 1538) [address]: Altitude Chamber Technician/Techni sanjeev ID = [id number] for ONELIA REGALADO SARS-COV2/RT-PCR ([facility])2021-01-14 10:06:00 Test Item Value Reference Range Interpretation Comments SARS-COV2/RT-PCR (test Negative Not Detected, Negative, code = 8450873) See external report for linked test SARS-COV-[address] [facility] GIN (test code = 2202593) Negative result for this test determines that [...] individuals suspected of COVID-19 by their healthcare provider.This test [...] justifying the authorization of the emergency use ofin vitro diagnostic tests for detection and/or diagnosis of COVID-19 is terminated under Section 564(b)(2) of the Act or the EUA is revoked under Section 564(g) of the Act.Fact Sheet for Healthcare Prov iders:https://www.pocketfungames.BNI Video/sites/default/files/product/documents/Fact_Sheet_HC _Iaihmsiqt_Xdzb_GJKC-TeO-8.pdfFact Sheet for Healthcare Patients:https://www.pocketfungames.BNI Video/sites/default/files/product/docume nts/Osyu_Jzrjr_Xbqpuvpn_Lsbs_UMDJ-GcH-4.pdfPerforming Laboratory:[facility], [place] [address]CTBS-CBQRQNG METER 2021-01-14 06:19:00 Test Item Value Reference Range Interpretation Comments POC-GLUCOSE METER 139 mg/dL 70-110 H : Notified RN/: (MITA) (test code = TESTED AT [facility] 6720 1538) [facility], [address]: Altitude Chamber Technician/Techni sanjeev ID = [id number] for ANSON COSME [id number] 06:10:00 Test Item Value Reference Range Interpretation Comments FERRITIN (BEAKER) (test code = 14.20 ng/mL 5.00-275.00 361) Altitude Chamber Technician ID - MAGDIEL MBASIC METABOLIC [id number] 05:50:00 Test Item Value Reference Range Interpretation [...] S NOT APPLICABLE FOR DIALYSIS PATIEN TS. Altitude Chamber Technician ID - MAGDIEL HOWELL, TIBC, % SAT. (WITHOUT FERRITIN)2021-01-14 05:49:00 Test Item Value Reference Range Interpretation Comments IRON (BEAKER) (test code = 547) 57.0 ug/dL 40.0-160.0 TOTAL IRON BINDING CAPACITY 351 ug/dL 250-450 (BEAKER) (test code = 769) IRON % SATURATION (2) (BEAKER) 16 % 20-55 L (test code = 2590) Altitude Chamber Technician ID - MAGDIEL MCBC W/PLT COUNT & AUTO [id number] 05:25:00 Test Item Value Reference Range Interpretation [...] PERCENT (BEAKER) (test code = 2801) POCT-GLUCOSE [id number] 00:46:00 Test Item Value Reference Range Interpretation Comments POC-GLUCOSE METER 197 mg/dL 70-110 H : TESTED A T [facility] 6720 (BEAKER) (test code = MICHEL [facility], 1538) [address]: Altitude Chamber Technician/Techni sanjeev ID = [id number] for ANSON COSME HEMOGLOBIN AND [id number] 20:51:00 Test Item Value Reference Range Interpretation Comments HEMOGLOBIN (BEAKER) (test code = 7.1 GM/DL 11.2-15.7 L 410) HEMATOCRIT (BEAKER) (test code = 23.7 % 34.1-44.9 L 411) Altitude Chamber Technician ID - [id number] ID - [id number]-GLUCOSE [id number] 17:42:00 Test Item Value Reference Range Interpretation Comments POC-GLUCOSE METER 230 mg/dL 70-110 H : TESTED A T [facility] 6720 (BEAKER) (test code = [facility], 1538) [address]: Altitude Chamber Technician/Techni sanjeev ID = [id number] for ONELIA REGALADO U/S, ABDOMINAL, [id number] 17:38:00Reason for exam:->cirrhosis, evaluate for ascites [facility] : 1965 Sex: FFINALREPORT TECHNIQUE: Grayscale ultrasound of the four quadrants of the abdomen. INDICATION: cirrhosis, evaluate for ascites. COMPARISON: Ultrasound from 12/09/2020. FINDINGS: No ascites is visualized. Signed: Damon Cormier Verified Date/Time: 01/13/2021 17:38:54 Reading Location: [address] Body Reading Room GLOBIN AND [id number] 14:37:00 Test Item Value Reference Range Interpretation Comments HEMOGLOBIN (BEAKER) (test code = 7.9 GM/DL 11.2-15.7 L 410) HEMATOCRIT (BEAKER) (test code = 26.0 % 34.1-44.9 L 411) Altitude Chamber Technician ID - [id number]-GLUCOSE [id number] 12:56:00 Test Item Value Reference Range Interpretation Comments POC-GLUCOSE METER 175 mg/dL 70-110 H : TESTED A T [facility] 6720 (BEAKER) (test code = [facility], 1538) [address]: Altitude Chamber Technician/Techni sanjeev ID = [id number] for ONELIA REGALADO POCT-GLUCOSE [id number] 11:47:00 Test Item Value Reference Range Interpretation Comments POC-GLUCOSE METER 176 mg/dL 70-110 H : TESTED A T [facility] 6720 (BEAKER) (test code [facility], = 1538) [address]: Altitude Chamber Technician/Techni sanjeev ID = [id number] for Dianelys xiong (pca2), Arlette [id number] 07:14:00 Test Item Value Reference Range Interpretation Comments LIPASE (BEAKER) (test code = 749) 155 U/L 8-78 H Altitude Chamber Technician ID - BSBASIC METABOLIC [id number] 06:38:00 Test Item Value Reference Range Interpretation [...] S NOT APPLICABLE FOR DIALYSIS PATIEN TS. Altitude Chamber Technician ID - MAGDIEL MHEPATIC FUNCTION [id number] 06:15:00 Test Item Value Reference Range Interpretation [...] (test code = 21 U/L 6-55 347) Altitude Chamber Technician ID - MAGDIEL MPROTHROMBIN TIME/[id number] 05:42:00 Test Item Value Reference Range Interpretation Comments PROTIME (BEAKER) 15.2 seconds 11.9-14.2 H (test code = 759) INR (BEAKER) (test 1.22 See_Comment [Automat ed message] code = 370) The system [employer] generated this result transmitted ref erence range: <=5.90. The reference range was not used to int erpret this result as normal/abnormal . RECOMMENDED COUMADIN/WARFARIN INR THERAPY RANGESSTANDARD DOSE: 2.0 - 3.0 Includes: PROPHYLAXIS for venous thrombosis, systemic embolization; TREATMENT for venous thrombosis and/or pulmonary embolus.HIGH RISK: Target INR is 2.5-3.5 for patients with mechanical heart valves.CBC W/PLT COUNT & AUTO [id number] 05:37:00 Test Item Value Reference Range Interpretation [...] = No growth in 5 days 6463-4) [facility] Angeles[facility] [id number] 20:01:00 Test Item Value Reference Range Interpretation Comments CULTURE (BEAKER) (test No growth in 5 days code = 1095) BLOOD [id number] 20:01:00 Test Item Value Reference Range Interpretation Comments CULTURE (BEAKER) (test No growth in 5 days code = 1095) Drug screen, urine, [id number] 14:34:00See scanned reportChildren's Hospital Los AngelesPrepare Leuko-Red [id number] 23:54:00 Test Item Value Reference Range Interpretation Comments Unit ABO (test code = 8341956) A Pos UNIT NUMBER (test code = [id number] 934-0) Status (test code = 7333813) TX_TIMEINCHART Blood Bank Product (test code PLATELETS = 2263) PRODUCT CODE (test code = N4929B55 933-2) [facility] AngelesPrepar Leuko-Red [id number] 14:17:00 Test Item Value Reference Range Interpretation Comments CROSSMATCH (test code = COMPATIBLE 2264) Unit ABO (test code = A Pos 8848339) UNIT NUMBER (test code = [id number] 934-0) Status (test code = 3137907) WORK IN PROGRESS Blood Bank Product (test RED BLOOD CELLS code = 2263) PRODUCT CODE (test code = V4060M55 933-2) [facility] AngelesComprehensive metabolic [id number] 06:58:00 Test Item Value Reference Range Interpretation Comments Protein, Total (test 6.1 See_Comment [Autom ated code = 2885-2) message] The system which generated this result transmit gaby reference range : 6.0 - 8.3 gm/dL . The reference range was not u sed to interpret th is result as normal/abnormal . Albumin (test code = 3.0 g/dL 3.5-5 L 14446-5) Alkaline Phosphatase 94 U/L 40-150 (test code = 6768-6) Total Bilirubin (test 0.5 mg/dL 0.2-1.2 code = 1975-2) Sodium (test code = 140 meq/L 070-345 1984-2) Potassium (test code 4.2 meq/L 3.5-5.1 = 2823-3) Chloride (test code = 107 meq/L 98-107 5-0) CO2 (test code = 24 meq/L 22-29 8-9) BUN (test code = 4 mg/dL 7-21 L 3094-0) Creatinine (test code 0.97 mg/dL 0.57-1.25 = 2160-0) Glucose (test code = 175 mg/dL 70-105 H 2345-7) Calcium (test code = 8.0 mg/dL 8.4-10.2 L 76826-0) AST (test code = 19 U/L 5-34 1920-8) ALT (test code = 16 U/L 6-55 1742-6) EGFR (test code = 60 mL/min/1.73 [place] [address]-3) NOT ACCURATE CREATININE CLEARANCE IN PREDICTING GLOMERULAR FILTRATION RATE . ESTIMATED GFR I S NOT APPLICABLE FOR DIALYSIS PATIEN JULIAN (test code = JULIAN) Altitude Chamber Technician ID - MARCUS W Lab Interpretation Abnormal (test code = 73498-9) [facility] AngelesCOMPREHENSIVE METABOLIC [id number] 06:58:00 Test Item Value Reference Range Interpretation [...] S NOT APPLICABLE FOR DIALYSIS PATIEN TS. Altitude Chamber Technician ID - MARCUS WProthrombin time/[id number] 06:30:00 Test Item Value Reference Interpretation Comments Range Protime (test code = 16.1 See_Comment H [Autom ated 2903-2) message] The system which generated this result transmitted reference range : 11.9 - 14.2 seconds. The reference range was not used to interpret this result as normal/abnormal . INR (test code = 1.31 See_Comment [Automated 2702-6) message] The system which generated this result [...] valves. Lab Interpretation Abnormal (test code = 76414-7) [facility] AngelesPROTHROMBIN TIME/[id number] 06:30:00 Test Item Value Reference Range Interpretation Comments PROTIME (BEAKER) 16.1 seconds 11.9-14.2 H (test code = 759) INR (BEAKER) (test 1.31 See_Comment [Automat ed message] code = 370) The system [employer] generated this result transmitted ref erence range: <=5.90. The reference range was not used to int erpret this result as normal/abnormal . RECOMMENDED COUMADIN/WARFARIN INR THERAPY RANGESSTANDARD DOSE: 2.0 - 3.0 Includes: PROPHYLAXIS for venous thrombosis, systemic embolization; TREATMENT for venous thrombosis and/or pulmonary embolus.HIGH RISK: Target INR is 2.5-3.5 for patients with mechanical heart valves.CBC with platelet count + automated [id number] 06:19:00 Test Item Value Reference Range Interpretation Comments WBC (test code = 6690-2) 3.0 See_Comment L [A utomated message] The system [employer] generated this result transmitted ref erence range: 3.5 - 10 .5 K/L. The refe rence range was not u sed to interpret this result as normal/abnor mal. RBC (test code = 789-8) 2.52 See_Comment L [Au tomated message] The system [employer] generated this result transmitted ref erence range: 3.93 - 5 .22 M/L. The refe rence range was not u sed to interpret this result as normal/abnor mal. MCHC (test code = 786-4) 31.0 See_Comment L [A utomated message] The system [employer] generated this result transmitted ref erence range: [...] L [Aut omated message] 777-3) The system [employer] generated this result transmitted ref erence range: 150 - 45 0 K/CU MM. The referen ce range was not u sed to interpret this result as normal/abnor mal. MPV (test code = 11.3 fL 9.4-12.3 88160-3) nRBC (test code = 413) 0 See_Comment [Aut omated message] The system [employer] generated this result transmitted ref erence range: [...] See_Comment [Aut omated message] 670) The system [employer] generated this result transmitted ref erence range: 1.56 - 6 .13 K/L. The refe rence range was not u sed to interpret this result as normal/abnor mal. # Lymphs (test code = 0.62 See_Comment L [Auto mated message] 414) The system [employer] generated this result transmitted ref erence range: 1.18 - 3 .74 K/L. The refe rence range was not u sed to interpret this result as normal/abnor mal. # Monos (test code = 0.35 See_Comment [Autom ated message] 415) The system [employer] generated this result transmitted ref erence range: 0.24 - 0 .36 K/L. The refe rence range was not u sed to interpret this result as normal/abnor mal. # Eos (test code = 416) 0.11 See_Comment [Au tomated message] The system [employer] generated this result transmitted ref erence range: 0.04 - 0 .36 K/L. The refe rence range was not u sed to interpret this result as normal/abnor mal. # Baso (test code = 417) 0.01 See_Comment [A utomated message] The system [employer] generated this result transmitted ref erence range: 0.01 - 0 .08 K/L. The refe rence range was not u sed to interpret this result as normal/abnor mal. Immature 0 % 0-1 Granulocytes-Relative (test code = 2801) Lab Interpretation (test Abnormal code = 71315-4) [facility] W/PLT COUNT & AUTO [id number] 06:19:00 Test Item Value Reference Range Interpretation [...] PERCENT (BEAKER) (test code = 2801) POC-Glucose [id number] 21:39:00 Test Item Value Reference Range Interpretation Comments POC-Glucose Meter (test 319 mg/dL 70-110 H : TE STED AT [facility] code = 1538) [address] [facility], 770 30: Altitude Chamber Technician/Techni sanjeev ID = [id number] for OCTAVIA MAGAÑA Lab Interpretation (test Abnormal code = 23502-5) [facility] Angeles[facility]CT-[facility]SE [id number] 21:39:00 Test Item Value Reference Range Interpretation Comments POC-GLUCOSE METER 319 mg/dL 70-110 H : TESTED A T [facility] 6720 (BEAKER) (test code = [facility], 1538) [address]: Altitude Chamber Technician/Techni sanjeev ID = [id number] for OCTAVIA HOPKINS RA POCT-GLUCOSE [id number] 16:32:00 Test Item Value Reference Range Interpretation Comments POC-GLUCOSE METER 145 mg/dL 70-110 H : TESTED A T [facility] 6720 (BEAKER) (test code = [facility], 153) [address]: Altitude Chamber Technician/Techni sanjeev ID = [id number] for KE ITH (V), ROMINA Type and screen, [id number] 08:50:00 Test Item Value Reference Range Interpretation Comments ABO/RH AUTOMATED (BEAKER) (test A POSITIVE code = 2260) Ab Scrn (test code = 890-4) NEGATIVE [facility] AngelesCOMPREHENSIVE METABOLIC [id number] 06:07:00 Test Item Value Reference Range Interpretation [...] 347) EGFR (BEAKER) (test 64 mL/min/1.73 ESTIMA GBAY GFR IS code = 1092) sq m NOT ACCURATE CREATININE CLEARANCE IN PREDICTING GLOMERULAR FILTRATION RATE . ESTIMATED GFR I S NOT APPLICABLE FOR DIALYSIS PATIEN TS. Altitude Chamber Technician ID - MAGDIEL [id number] 05:52:00 Test Item Value Reference Range Interpretation Comments Magnesium (test code = 1.4 mg/dL 1.6-2.6 L 62738-2) JULIAN (test code = JULIAN) Altitude Chamber Technician ID - MAGDIEL M Lab Interpretation (test Abnormal code = 45764-7) [facility] Angeles[facility]IUM2021-07-24 05:52:00 Test Item Value Reference Range Interpretation Comments MAGNESIUM (BEAKER) (test code = 1.4 mg/dL 1.6-2.6 L 627) Altitude Chamber Technician ID - MAGDIEL MPROTHROMBIN TIME/[id number] 05:27:00 Test Item Value Reference Range Interpretation Comments PROTIME (BEAKER) 16.8 seconds 11.9-14.2 H (test code = 759) INR (BEAKER) (test 1.38 See_Comment [Automat ed message] code = 370) The system [employer] generated this result transmitted ref erence range: <=5.90. The reference range was not used to int erpret this result as normal/abnormal . RECOMMENDED COUMADIN/WARFARIN INR THERAPY RANGESSTANDARD DOSE: 2.0 - 3.0 Includes: PROPHYLAXIS for venous thrombosis, systemic embolization; TREATMENT for venous thrombosis and/or pulmonary embolus.HIGH RISK: Target INR is 2.5-3.5 for patients with mechanical heart valves.Hemoglobin and [id number] 05:23:00 Test Item Value Reference Range Interpretation Comments Hemoglobin (test code = 7.0 See_Comment L [Au tomated message] 786-4) The system [employer] generated this result transmitted ref erence range: 11.2 - 1 5.7 GM/DL. The refe rence range was not u sed to interpret this result as normal/abnor mal. Hematocrit (test code = 23.8 % 34.1-44.9 L 4544-3) Lab Interpretation (test Abnormal code = 77170-2) [facility] W/PLT COUNT & AUTO [id number] 05:23:00 Test Item Value Reference Range Interpretation [...] (BEAKER) (test code = 2801) HEMOGLOBIN AND [id number] 05:23:00 Test Item Value Reference Range Interpretation Comments HEMOGLOBIN (BEAKER) (test code = 7.0 GM/DL 11.2-15.7 L 410) HEMATOCRIT (BEAKER) (test code = 23.8 % 34.1-44.9 L 411) HEMOGLOBIN AND [id number] 18:32:00 Test Item Value Reference Range Interpretation Comments HEMOGLOBIN (BEAKER) (test code = 8.5 GM/DL 11.2-15.7 L 410) HEMATOCRIT (BEAKER) (test code = 28.2 % 34.1-44.9 L 411) Altitude Chamber Technician ID - [id number]-CoV2/RT-PCR (Asymptomatic ONLY)2020-12-22 11:29:00 Test Item Value Reference Range Interpretation Comments SARS-COV2/RT-PCR Negative Not Detected, (test code = Negative, See 01604-0) external report for linked test [facility]COV-2 [facility] (test code = 27686-4) JULIAN (test code = Negative result for [...] of the Act. Fact Sheet for Healthcare Providers:https://www.[employer]/sites/default/f raeann/product/documents/F act_Sheet_HC_Providers_L iki_BWWZ-JhW-8.pdf Fact Sheet for Healthcare Patients:https://www.[employer]/sites/default/fi les/product/documents/Fa ct_Sheet_Patients_Lyra_S ARS-CoV-2.pdf Performing Laboratory:[facility] [place], [place] [address].[place], [place] [address] [place], [place] [address]ARS-COV2/RT-PCR ([facility])2020-12-22 11:29:00 Test Item Value Reference Range Interpretation Comments SARS-COV2/RT-PCR (test Negative Not Detected, Negative, code = 0895724) See external report for linked test SARS-COV-[address] [facility] GIN (test code = 3765545) Negative result for this test determines that [...] individuals suspected of COVID-19 by their healthcare provider.This test [...] justifying the authorization of the emergency use ofin vitro diagnostic tests for detection and/or diagnosis of COVID-19 is terminated under Section 564(b)(2) of the Act or the EUA is revoked under Section 564(g) of the Act.Fact Sheet for Healthcare Prov iders:https://www.[employer]/sites/default/files/product/documents/Fact_Sheet_HC _Dyuihcxvs_Gdbu_JUEV-JbZ-1.pdfFact Sheet for Healthcare Patients:https://www.[employer]/sites/default/files/product/docume nts/Jmvp_Zvrok_Unqibdky_Bacb_AANJ-ZxQ-8.pdfPerforming Laboratory:[facility], [place] [address]VIEH-WLOXROT METER 2020-12-22 05:38:00 Test Item Value Reference Range Interpretation Comments POC-GLUCOSE METER 142 mg/dL 70-110 H : TESTED A T [facility] 6720 (MITA) (test code = [facility], 1538) [address]: Altitude Chamber Technician/Techni sanjeev ID = [id number] for Kaylynn Dill Basic metabolic [id number] 04:34:00 Test Item Value Reference Range Interpretation Comments Sodium (test code = 137 meq/L 913-167 6498-2) Potassium (test code = 5.1 meq/L 3.5-5.1 2823-3) Chloride (test code = 111 meq/L 98-107 H 2075-0) CO2 (test code = 19 meq/L 22-29 L 2028-9) BUN (test code = 6 mg/dL 7-21 L 3094-0) Creatinine (test code 1.06 mg/dL 0.57-1.25 = 2160-0) Glucose (test code = 138 mg/dL 70-105 H 2345-7) Calcium (test code = 8.3 mg/dL 8.4-10.2 L 80203-3) EGFR (test code = 54 mL/min/1.73 [place] [address]-7) NOT ACCURATE CREATININE CLEARANCE IN PREDICTING GLOMERULAR FILTRATION RATE . ESTIMATED GFR I S NOT APPLICABLE FOR DIALYSIS PATIENTS. JULIAN (test code = JULIAN) Altitude Chamber Technician ID - MARCUS W Lab Interpretation Abnormal (test code = 61162-0) [facility] AngelesHepatic function [id number] 04:34:00 Test Item Value Reference Range Interpretation Comments Protein, Total (test 6.2 See_Comment [Autom ated code = 2885-2) message] The system which generated this result transmit gaby reference range : 6.0 - 8.3 gm/dL . The reference range was not u sed to interpret th is result as normal/abnormal . Albumin (test code = 3.0 g/dL 3.5-5 L 63142-6) Total Bilirubin (test 0.7 mg/dL 0.2-1.2 code = 1975-2) Bilirubin, Direct 0.4 mg/dL 0.1-0.5 (test code = 1968-7) Alkaline Phosphatase 105 U/L 40-150 (test code = 6768-6) AST (test code = 34 U/L 5-34 1920-8) ALT (test code = 26 U/L 6-55 1742-6) JULIAN (test code = JULIAN) Altitude Chamber Technician ID - MARCUS W Lab Interpretation Abnormal (test code = 07138-6) [facility] AngelesPhosphorus2021-07-23 04:34:00 Test Item Value Reference Range Interpretation Comments Phosphorus (test code = 3.3 mg/dL 2.3-4.7 2777-1) JULIAN (test code = JULIAN) Altitude Chamber Technician ID - MARCUS W Lab Interpretation (test Normal code = 29607-6) [facility] AngelesBASIC METABOLIC [id number] 04:34:00 Test Item Value Reference Range Interpretation [...] S NOT APPLICABLE FOR DIALYSIS PATIEN TS. Altitude Chamber Technician ID Joaquin VELAZQUEZ [id number] 04:34:00 Test Item Value Reference Range Interpretation Comments MAGNESIUM (BEAKER) (test code = 1.3 mg/dL 1.6-2.6 L 627) Altitude Chamber Technician ID Joaquin VELAZQUEZ [id number] 04:34:00 Test Item Value Reference Range Interpretation Comments PHOSPHORUS (BEAKER) (test code = 3.3 mg/dL 2.3-4.7 604) Altitude Chamber Technician ID Joaquin VELAZQUEZ WHEPATIC FUNCTION [id number] 04:34:00 Test Item Value Reference Range Interpretation [...] (test code = 26 U/L 6-55 347) Altitude Chamber Technician YOSEF VELAZQUEZ WCBC W/PLT COUNT & AUTO [id number] 04:18:00 Test Item Value Reference Range Interpretation [...] PERCENT (BEAKER) (test code = 2801) POCT-GLUCOSE [id number] 01:24:00 Test Item Value Reference Range Interpretation Comments POC-GLUCOSE METER 121 mg/dL 70-110 H : TESTED A T [facility] 6720 (BEAKER) (test code = [facility] [place], 1538) [address]: Altitude Chamber Technician/Techni sanjeev ID = [id number] for Kaylynn Dill [id number] 19:21:00 Test Item Value Reference Range Interpretation Comments PTT (test code = 17073-1) 29.1 See_Comment [ Automated message] The system [employer] generated this result transmitted ref erence range: 22.5 - 3 6.0 seconds. The re ference range was not u sed to interpret this result as normal/abnor mal. Lab Interpretation (test Normal code = 05323-1) [facility] AngelesAPTT2021-07-22 19:21:00 Test Item Value Reference Range Interpretation Comments PARTIAL THROMBOPLASTIN TIME 29.1 seconds 22.5-36.0 (BEAKER) (test code = 760) Lactic acid, venous [id number] 19:20:00 Test Item Value Reference Range Interpretation Comments Lactate, Venous (test 1.18 mmol/L 0.5-2.2 Specim en code = 2872) markedly hemolyzed JULIAN (test code = JULIAN) Altitude Chamber Technician ID - DB Lab Interpretation Normal (test code = 81792-4) [facility] AngelesLACTIC ACID, [id number] 19:20:00 Test Item Value Reference Range Interpretation Comments LACTATE BLOOD VENOUS 1.18 mmol/L 0.50-2.20 Specime n markedly (2) (BEAKER) (test hemolyzed code = 2872) Altitude Chamber Technician ID - DBPROTHROMBIN TIME/[id number] 19:19:00 Test Item Value Reference Range Interpretation Comments PROTIME (BEAKER) 15.4 seconds 11.9-14.2 H (test code = 759) INR (BEAKER) (test 1.24 See_Comment [Automat ed message] code = 370) The system [employer] generated this result transmitted ref erence range: <=5.90. The reference range was not used to int erpret this result as normal/abnormal . RECOMMENDED COUMADIN/WARFARIN INR THERAPY RANGESSTANDARD DOSE: 2.0 - 3.0 Includes: PROPHYLAXIS for venous thrombosis, systemic embolization; TREATMENT for venous thrombosis and/or pulmonary embolus.HIGH RISK: Target INR is 2.5-3.5 for patients with mechanical heart valves.[id number] 19:16:00 Test Item Value Reference Range Interpretation Comments Ammonia (test code = 21 See_[place] n 9[address]-6) moderately hemolyzed [Automated message] The system which generated this result transmit gaby reference range : 18 - 72 mol/L . The reference range was not u sed to interpret th is result as normal/abnormal . JULIAN (test code = JULIAN) Altitude Chamber Technician ID - DB Lab Interpretation Normal (test code = 70341-3) [facility] AngelesAMMONIA2021-07-22 19:16:00 Test Item Value Reference Range Interpretation Comments AMMONIA (BEAKER) 21 mol/L 18-72 Specimen mo derately (test code = 348) hemolyzed Altitude Chamber Technician ID - DBBASIC METABOLIC [id number] 16:19:00 Test Item Value Reference Range Interpretation [...] S NOT APPLICABLE FOR DIALYSIS PATIEN TS. Altitude Chamber Technician ID - DBHEPATIC FUNCTION [id number] 16:19:00 Test Item Value Reference Range Interpretation [...] (test code = 36 U/L 6-55 347) Altitude Chamber Technician ID - DBCBC W/PLT COUNT & AUTO [id number] 16:00:00 Test Item Value Reference Range Interpretation [...] (BEAKER) (test code = 2801) BASIC METABOLIC [id number] 14:31:00 Test Item Value Reference Range Interpretation [...] S NOT APPLICABLE FOR DIALYSIS PATIEN TS. Altitude Chamber Technician ID - PIAYA LHEPATIC FUNCTION [id number] 14:31:00 Test Item Value Reference Range Interpretation [...] (test code = 31 U/L 6-55 347) Altitude Chamber Technician ID - PIAYA LPROTHROMBIN TIME/[id number] 14:12:00 Test Item Value Reference Range Interpretation Comments PROTIME (BEAKER) 15.2 seconds 11.9-14.2 H (test code = 759) INR (BEAKER) (test 1.22 See_Comment [Automat ed message] code = 370) The system [employer] generated this result transmitted ref erence range: <=5.90. The reference range was not used to int erpret this result as normal/abnormal . RECOMMENDED COUMADIN/WARFARIN INR THERAPY RANGESSTANDARD DOSE: 2.0 - 3.0 Includes: PROPHYLAXIS for venous thrombosis, systemic embolization; TREATMENT for venous thrombosis and/or pulmonary embolus.HIGH RISK: Target INR is 2.5-3.5 for patients with mechanical heart valves.CBC W/PLT COUNT & AUTO [id number] 14:08:00 Test Item Value Reference Range Interpretation [...] (BEAKER) (test code = 2801) please check [id number] 12:14:00Scan ResultQUEST NON- INTERFACED HARITHAChildren's Hospital Los AngelesZinc2021-07-17 19:10:00 Test Item Value Reference Interpretation Comments Range Zinc (test code = 47 See_Comment L This test was ) developed and i ts analytical performance characteristics have been determined by [employer]. It has not been cleared or appr [...] (test code = Performing Lab JULIAN) *MIKE [facility], [address] [place] [address] Sheri Mccall MD Lab Interpretation Abnormal (test code = 66754-5) [facility] AngelesCopper2021-07-17 11:43:00 Test Item Value Reference Range Interpretation Comments Copper (test 118 See_Comment This test was code = developed and i ts 6778029) analytical perf ormance characteristics have been determined by [employer]. It has not been cl eared or approved by theFDA. This assay has been validated pursu ant to the CLIA regula tions and is used for clinical purpos es. [Automated mess age] The system [employer] h generated this result transmitted ref erence range: 70 - 175 mcg/dL. The ref erence range was not u sed to interpret this result as normal/abnor mal. JULIAN (test code Performing Lab = JULIAN) *MIKE [facility], [address] [place] [address] Sheri Mccall MD [facility] AngelesANTI-MITOCHONDRIAL AB, REFLEX TO [id number] 07:43:00 Test Item Value Reference Range Interpretation Comments SCAN RESULT (test code = 5682632) Anti-Mitochondrial Ab, reflex to [id number] 07:43:00Scan ResultQUEST DIAGNOSTIC INCORPORATEDChildren's Hospital Los AngelesHepatitis B e antibody 2020-12-14 20:25:00 Test Item Value Reference Range Interpretation Comments Hep Be NONREACTIVE REFERENCE RANG E: Ab(Anti-Hbe) NONREACTIVE For (test code = additional 3577814) information, pl ease refer tohttp://educat ion.[employer] .BNI Video/ faq/QAQ361(This link is being provid ed for informational/e ducat ional purposes only.) JULIAN (test code Performing Lab *QDID = JULIAN) [facility] [address] [place] [address] Chlao Burnham MD [facility] AngelesBLOOD [id number] 20:01:00 Test Item Value Reference Range Interpretation Comments CULTURE (BEAKER) (test No growth in 5 days code = 1095) BLOOD [id number] 20:01:00 Test Item Value Reference Range Interpretation Comments CULTURE (BEAKER) (test No growth in 5 days code = 1095) Mitochondrial Ab [id number] 12:49:00 Test Item Value Reference Range Interpretation Comments Anti-Mitocho NEGATIVE NEGATIVE This test was developed nd Abs (test and its analyti iglesia code = performance 8359612) characteristics havebeen determined by [employer] [facility].It h as not been cleared or approved by FDA. This as say has been validatedp ursuant to the CLIA reg ulations and is used for clinical purposes. JULIAN (test Performing Lab EZ code = JULAIN) [facility] [address] [place] [address] Gab Mckeon MD, PhD, DEBI [facility] AngelesMitochondrial Ab [id number] 12:49:00 Test Item Value Reference Range Interpretation Comments Mitochondrial Ab TNP See_Comment Test Not Titer (test code = Performed . 6276106) Screening test Negative or Not Detected. Titer notperformed. [Automated message] The system which generated this result transmitted reference range : <1:20. The reference range was not used to interpret this result as normal/abnormal . JULIAN (test code = Performing Lab EZ JULIAN) [facility] [address] [place] [address] Gab Mckeon MD, PhD, DEBI [facility] AngelesActin (Smooth Muscle) Antibody, [id number] 22:22:00 Test Item Value Reference Range Interpretation Comments Anti-Smooth <20 See Note: U Reference Range :<20 Muscle Ab NEGATIVE> OR = 20 (test code = POSITIVE Antibo [...] type 1. JULIAN (test code Performing Lab EZ = JULIAN) [facility] [address] [place] [address] Gab Mckeon MD, PhD, DEBI [facility] AngelesPOCT-GLUCOSE [id number] 16:42:00 Test Item Value Reference Range Interpretation Comments POC-GLUCOSE METER 195 mg/dL 70-110 H : TESTED A T [facility] 6720 (PELONAKER) (test code [facility], = 1538) [address]: Altitude Chamber Technician/Techni sanjeev ID = [id number] for HEATHER DUNLAP Hepatitis B e [id number] 16:32:00 Test Item Value Reference Range Interpretation Comments Hep Be Ag NONREACTIVE REFERENCE RANG ES: (Antigen) NONREACTIVE For (test code = additional 5809583) information, pl ease refer tohttp://educat ion.[employer] .BNI Video/ faq/XSH208(This link is being provid ed for informational/e ducat ional purposes only.) JULIAN (test code Performing Lab *QDID = JULIAN) [facility] [address] [place] [address] hCalo Burnham MD [facility] AngelesCarbohydrate antigen 19-9 (CA 19-9)2020-12-13 14:29:00 Test Item Value Reference Range Interpretation Comments CA 19-9 26 U/mL <34 This test was (test code = performed using the 51078-3) Siemens Chemiluminescen t method.Values o btained from different assay methods cannot be used interchangeably .CA19-9 levels, regardl ess of value, should n ot be interpreted as absoluteevidenc e of the presence or abs ence of disease. JULIAN (test Performing Lab EZ code = JULIAN) [facility] [address] [place] [address] Gab Mckeon MD, PhD, DEBI [facility] An[id number] 14:13:00 Test Item Value Reference Range Interpretation Comments Ceruloplasmin (test code 28 mg/dL 18-53 = 1230543) JULIAN (test code = JULIAN) Performing Lab *MIKE [facility], [address] [place] [address] Sheri Mccall MD [facility] AngelesPOCT-GLUCOSE [id number] 11:53:00 Test Item Value Reference Range Interpretation Comments POC-GLUCOSE METER 308 mg/dL 70-110 H : TESTED A T [facility] 6720 (BEAKER) (test code [facility], = 1538) [address]: Altitude Chamber Technician/Techni sanjeev ID = [id number] for LEWI S, [place] POCT-GLUCOSE [id number] 07:27:00 Test Item Value Reference Range Interpretation Comments POC-GLUCOSE METER 271 mg/dL 70-110 H : TESTED A T [facility] 6720 (BEAKER) (test code [facility], = 1538) [address]: Altitude Chamber Technician/Techni sanjeev ID = [id number] for LEWI S, [place] Calcium, [id number] 05:41:00 Test Item Value Reference Range Interpretation Comments Calcium, Ion (test code = 1994-3) 1.09 mmol/L 1.12-1.27 L pH, Blood (test code = 39890-8) 7.40 Lab Interpretation (test code = Abnormal 57810-0) [facility] AngelesCALCIUM, [id number] 05:41:00 Test Item Value Reference Range Interpretation Comments CALCIUM IONIZED (BEAKER) (test 1.09 mmol/L 1.12-1.27 L code = 698) PH, BLOOD (BEAKER) (test code = 7.40 1810) COMPREHENSIVE METABOLIC [id number] 04:31:00 Test Item Value Reference Range Interpretation [...] S NOT APPLICABLE FOR DIALYSIS PATIEN TS. Altitude Chamber Technician ID - MAGDIEL [id number] 04:25:00 Test Item Value Reference Range Interpretation Comments MAGNESIUM (BEAKER) (test code = 1.5 mg/dL 1.6-2.6 L 627) Altitude Chamber Technician ID - MAGDIEL [id number] 04:25:00 Test Item Value Reference Range Interpretation Comments PHOSPHORUS (BEAKER) (test code = 2.4 mg/dL 2.3-4.7 604) Altitude Chamber Technician ID - MAGDIEL MCBC W/PLT COUNT & AUTO [id number] 03:59:00 Test Item Value Reference Range Interpretation [...] PERCENT (BEAKER) (test code = 2801) POCT-GLUCOSE [id number] 22:27:00 Test Item Value Reference Range Interpretation Comments POC-GLUCOSE METER 329 mg/dL 70-110 H : TESTED A T [facility] 6720 (BEAKER) (test code = MICHEL [place], 1538) [address]: Altitude Chamber Technician/Techni sanjeev ID = [id number] for JAMILA YOUNGER POCT-GLUCOSE [id number] 17:02:00 Test Item Value Reference Range Interpretation Comments POC-GLUCOSE METER 295 mg/dL 70-110 H : Notified RN/MD: (BEAKER) (test code = TESTED AT [facility] 6720 1538) [facility], [address]: Altitude Chamber Technician/Techni sanjeev ID = [id number] for Ricco BUNDY HEMOGLOBIN AND [id number] 16:35:00 Test Item Value Reference Range Interpretation Comments HEMOGLOBIN (BEAKER) (test code = 7.9 GM/DL 11.2-15.7 L 410) HEMATOCRIT (BEAKER) (test code = 25.0 % 34.1-44.9 L 411) Altitude Chamber Technician ID - 6000POCT-GLUCOSE [id number] 11:51:00 Test Item Value Reference Range Interpretation Comments POC-GLUCOSE METER 300 mg/dL 70-110 H : TESTED A T [facility] 6720 (BEAKER) (test code [facility], = 1538) [address]: Altitude Chamber Technician/Techni sanjeev ID = [id number] for LEWI S, [place] POCT-GLUCOSE [id number] 08:17:00 Test Item Value Reference Range Interpretation Comments POC-GLUCOSE METER 229 mg/dL 70-110 H : TESTED A T [facility] 6720 (BEAKER) (test code [facility], = 1538) [address]: Altitude Chamber Technician/Techni sanjeev ID = [id number] for LEWI S, [place] [id number] 06:36:00 Test Item Value Reference Range Interpretation Comments PHOSPHORUS (BEAKER) (test code = 1.5 mg/dL 2.3-4.7 LL 604) [facility] Technician ID - MAGDIEL Hernandez ID - PIAYA LCOMPREHENSIVE METABOLIC [id number] 04:26:00 Test Item Value Reference Range Interpretation [...] S NOT APPLICABLE FOR DIALYSIS PATIEN TS. [facility] Technician ID - MAGDIEL [id number] 04:26:00 Test Item Value Reference Range Interpretation Comments MAGNESIUM (BEAKER) (test code = 1.7 mg/dL 1.6-2.6 627) [facility] Technician ID - MAGDIEL MCALCIUM, [id number] 04:18:00 Test Item Value Reference Range Interpretation Comments CALCIUM IONIZED (BEAKER) (test 1.10 mmol/L 1.12-1.27 L code = 698) PH, BLOOD (BEAKER) (test code = 7.41 1810) CBC W/PLT COUNT & AUTO [id number] 03:57:00 Test Item Value Reference Range Interpretation [...] PERCENT (BEAKER) (test code = 2801) POCT-GLUCOSE [id number] 21:58:00 Test Item Value Reference Range Interpretation Comments POC-GLUCOSE METER 139 mg/dL 70-110 H : TESTED A T [facility] 6720 (BEAKER) (test code = [facility], 1538) [address]: [facility] Chamber Technician/Techni sanjeev ID = [id number] for ERIC FREGOSO Hepatitis B surface [id number] 18:57:00 Test Item Value Reference Range Interpretation Comments Hep B S Ab (test code <8.0 See_Comment [Auto mated = 46410-4) message] The system which generated this result transmit gaby reference range : <8.0 mIU/mL. e reference range was not used to interpret this result as normal/abnormal . JULIAN (test code = JULIAN) [facility] Chamber Technician ID - DB Lab Interpretation Normal (test code = 45458-3) [facility] SURFACE [id number] 18:57:00 Test Item Value Reference Range Interpretation Comments HEPATITIS B SURFACE ANTIBODY < mIU/mL <8.0 (BEAKER) (test code = 647) [facility] Technician ID - DBHEMOGLOBIN AND [id number] 18:30:00 Test Item Value Reference Range Interpretation Comments HEMOGLOBIN (BEAKER) (test code = 7.6 GM/DL 11.2-15.7 L 410) HEMATOCRIT (BEAKER) (test code = 24.3 % 34.1-44.9 L 411) [facility] Technician ID - [id number] ID - 6000POCT-GLUCOSE [id number] 18:02:00 Test Item Value Reference Range Interpretation Comments POC-GLUCOSE METER 331 mg/dL 70-110 H : TESTED A T [facility] 6720 (BEAKER) (test code [facility], = 1538) [address]: [facility] Chamber Technician/Techni sanjeev ID = [id number] for HEATHER DUNLAP Hepatitis C PCR, [id number] 15:48:00 Test Item Value Reference Range Interpretation Comments HCV PCR, Quantitative HCV RNA not detected HCV RNA not (test code = 08794-3) detected JULIAN (test code = JULIAN) This test uses a Real-Time Polymerase Chain Reaction (RT-PCR) methodology and was performed using KE[employer] Ampliprep/KEZIA TaqMan HCV test kit version 2.0 ([employer] Reportable range for this assay is 15 - 100,000,000 IU per mL (1.18 - 8.00 Log IU/mL).This test uses a Real-Time Polymerase Chain Reaction (RT-PCR) methodology and was performed using [employer] Ampliprep/KEZIA TaqMan HCV test kit version 2.0 ([employer]). Reportable range for this assay is 15 - 100,000,000 IU per mL (1.18 - 8.00 Log IU/mL). Lab Interpretation Normal (test code = 95311-3) [facility] PCR, [id number] 15:48:00 Test Item Value Reference Range Interpretation Comments HCV RESULT COMPONENT HCV RNA not detected HCV RNA not detected (BEAKER) (test code = 2699) This test uses a Real-Time Polymerase Chain Reaction (RT-PCR) methodology and was performed using [employer] Ampliprep/KEZIA TaqMan HCV test kit version 2.0 ([employer]Reportable range for this assay is 15 - 100,000,000 IU per mL (1.18 - 8.00 Log IU/mL).This test uses a Real-Time Polymerase Chain Reaction (RT-PCR) methodology and was performed using [employer] Ampliprep/KEZIA TaqMan HCV test kit version 2.0 ([employer]).Reportable range for this assay is 15 - 100,000,000 IU per mL (1.18 - 8.00 Log IU/mL).Hepatitis B PCR, [id number] 13:54:00 Test Item Value Reference Range Interpretation Comments HBV PCR, Quantitative HBV DNA not detected HBV DNA not (test code = 62677-2) detected JULIAN (test code = JLUIAN) This test uses a Real-Time Polymerase Chain Reaction (RT-PCR) methodology and was performed using [employer] AmpliPrep/KEZIA TaqMan HBV Test, v2.0 ([employer] Reportable range for this assay is 20 - 170,000,000 IU per mL (1.30 - 8.23 Log IU/mL). Lab Interpretation Normal (test code = 65053-4) [facility] B PCR, [id number] 13:54:00 Test Item Value Reference Range Interpretation Comments HBV RESULT COMPONENT HBV DNA not detected HBV DNA not detected (BEAKER) (test code = 2701) This test uses a Real-Time Polymerase Chain Reaction (RT-PCR) methodology and was performed using [employer] AmpliPrep/KEZIA TaqMan HBV Test, v2.0 ([employer]Reportable range for this assay is 20 - 170,000,000 IU per mL (1.30 - 8.23 Log IU/mL).POCT-GLUCOSE [id number] 12:15:00 Test Item Value Reference Range Interpretation Comments POC-GLUCOSE METER 195 mg/dL 70-110 H : TESTED A T [facility] 6720 (BEAKER) (test code [facility], = 1538) [address]: [facility] Chamber Technician/Techni sanjeev ID = [id number] for LEWI S, [place] Anti-Nuclear Antibody (AARON)2020-12-11 10:19:00 Test Item Value Reference Range Interpretation Comments AARON (test code = 35399-9) Negative Negative JULIAN (test code = JULIAN) Test performed by IFA method.Test performed by IFA method. Lab Interpretation (test Normal code = 00592-6) [facility] Angeles[facility]I-NUCLEAR ANTIBODY (AARON)2020-12-11 10:19:00 Test Item Value Reference Range Interpretation Comments ANTI-NUCLEAR ANTIBODY (AARON) (BEAKER) Negative Negative (test code = 418) Test performed by IFA method.Test performed by IFA method.Urine culture 2020-12-11 08:28:00 Test Item Value Reference Range Interpretation Comments Result (test code = 6463-4) No growth [facility] Angeles[facility]CT[facility] [id number] 08:12:00 Test Item Value Reference Range Interpretation Comments POC-GLUCOSE METER 262 mg/dL 70-110 H : TESTED A T [facility] 6720 (BEAKER) (test code [facility], = 1538) 97[address]: [facility] Technician/Techni sanjeev ID = [id number] for LEWI S, [place] CALCIUM, [id number] 06:45:00 Test Item Value Reference Range Interpretation Comments CALCIUM IONIZED (BEAKER) (test 1.10 mmol/L 1.12-1.27 L code = 698) PH, BLOOD (AKER) (test code = 7.35 1810) COMPREHENSIVE METABOLIC [id number] 06:28:00 Test Item Value Reference Range Interpretation [...] S NOT APPLICABLE FOR DIALYSIS PATIEN TS. [facility] Technician ID - MARCUS [id number] 06:28:00 Test Item Value Reference Range Interpretation Comments MAGNESIUM (BEAKER) (test code = 1.5 mg/dL 1.6-2.6 L 627) [facility] Technician ID - MARCUS [id number] 06:28:00 Test Item Value Reference Range Interpretation Comments PHOSPHORUS (BEAKER) (test code = 2.6 mg/dL 2.3-4.7 604) [facility] Technician ID - MARCUS WCBC W/PLT COUNT & AUTO [id number] 05:30:00 Test Item Value Reference Range Interpretation [...] (BEAKER) (test code = 2801) HEMOGLOBIN AND [id number] 23:46:00 Test Item Value Reference Range Interpretation Comments HEMOGLOBIN (BEAKER) (test code = 7.9 GM/DL 11.2-15.7 L 410) HEMATOCRIT (BEAKER) (test code = 24.4 % 34.1-44.9 L 411) [facility] Technician ID - 6000POCT-GLUCOSE [id number] 21:51:00 Test Item Value Reference Range Interpretation Comments POC-GLUCOSE METER 330 mg/dL 70-110 H : TESTED A T [facility] 6720 (BEAKER) (test code = [facility], 1538) [address]: [facility] Chamber Technician/Techni sanjeev ID = [id number] for ERIC FREGOSO POCT-GLUCOSE [id number] 16:37:00 Test Item Value Reference Range Interpretation Comments POC-GLUCOSE METER 215 mg/dL 70-110 H : TESTED A T [facility] 6720 (BEAKER) (test code = [facility], 1538) 99508: [facility] Chamber Technician/Techni sanjeev ID = [id number] for Yolie Feliciano CBC W/PLT COUNT & AUTO [id number] 13:45:00 Test Item Value Reference Range Interpretation [...] PERCENT (BEAKER) (test code = 2801) POCT-GLUCOSE [id number] 12:00:00 Test Item Value Reference Range Interpretation Comments POC-GLUCOSE METER 293 mg/dL 70-110 H : TESTED A T [facility] 6720 (BEAKER) (test code = [facility] [place], 1538) [address]: [facility] Chamber Technician/Techni sanjeev ID = [id number] for CLAUDIO FU Hemoglobin [id number] 07:57:00 Test Item Value Reference Range Interpretation Comments Hemoglobin A1C (test code = 4548-4) 7.7 % 4.3-6.1 H Lab Interpretation (test code = Abnormal 23987-2) [facility] Angeles[facility]MOGLOB[facility] [id number] 07:57:00 Test Item Value Reference Range Interpretation Comments HEMOGLOBIN A1C (BEAKER) (test code = 7.7 % 4.3-6.1 H 368) POCT-GLUCOSE [id number] 07:28:00 Test Item Value Reference Range Interpretation Comments POC-GLUCOSE METER 253 mg/dL 70-110 H : [facility] (test code = [facility], 1538) 550[address]: [facility] Chamber Technician/Techni sanjeev ID = [id number] for CLAUDIO FU COMPREHENSIVE METABOLIC [id number] 06:23:00 Test Item Value Reference Range Interpretation [...] S NOT APPLICABLE FOR DIALYSIS PATIEN TS. [facility] Technician ID - MARCUS [id number] 06:12:00 Test Item Value Reference Range Interpretation Comments MAGNESIUM (BEAKER) 1.7 mg/dL 1.6-2.6 Specimen slightly (test code = 627) hemolyzed [facility] Technician YOSEF VELAZQUEZ [id number] 06:12:00 Test Item Value Reference Range Interpretation Comments PHOSPHORUS (BEAKER) 2.8 mg/dL 2.3-4.7 Specimen slightly (test code = 604) hemolyzed [facility] Technician YOSEF VELAZQUEZ WCBC W/PLT COUNT & AUTO [id number] 06:09:00 Test Item Value Reference Range Interpretation [...] 2801) Patient actively bleeding as per NODPROTHROMBIN TIME/[id number] 06:00:00 Test Item Value Reference Range Interpretation Comments PROTIME (BEAKER) 16.5 seconds 11.9-14.2 H (test code = 759) INR (BEAKER) (test 1.35 See_Comment [Automat ed message] code = 370) The system [employer] generated this result transmitted ref erence range: <=5.90. The reference range was not used to int erpret this result as normal/abnormal . RECOMMENDED COUMADIN/WARFARIN INR THERAPY RANGESSTANDARD DOSE: 2.0 - 3.0 Includes: PROPHYLAXIS for venous thrombosis, systemic embolization; TREATMENT for venous thrombosis and/or pulmonary embolus.HIGH RISK: Target INR is 2.5-3.5 for patients with mechanical heart valves.U/S, ABDOMINAL, WITH [id number] 05:50:00cirrhosis history with acute bleed. please check liver dopplers Reason for exam:->cirrhosis history with acute bleed. please check liver dopplers [facility] GLEASON : 1965 Sex: FFINALREPORT TECHNIQUE: Grayscale ultrasound of the abdomen with color Doppler and spectral Doppler ultrasound of the portal/hepatic vasculature. INDICATION: cirrhosis history with acutebleed. Please check liver dopplers. COMPARISON: None. FINDINGS: [...] cm. BILIARY:Gallbladder: No gallstones or sludge. Trace perichol ecystic fluid. No gallbladder wall thickening, or distention. Negative sonographic Tariq sign.Common bile duct measures 1.1 cm, slightly distended. No intrahepatic biliary ductal dilatation. PANCREAS:Incompletely visualized due to overlying bowel gas. SPLEEN: [...] patency and flow directionality of the hepatic andportal vasculature. Signed: Steven Green MDReport Verified Date/Time: 12/10/2020 05:50:47 US abdominal with [id number] 05:50:00Interface, External Ris In - 12/10/2020 5:53 [...] are patent with normal flow velocities, resistive indices,and waveforms. The hepatic veins and confluence are patent. The main portal vein measures 1.8 cm. BILIARY:Gallbladder: No gallstones or sludge. Trace pericholecystic fluid. No gallbladder wall thickenin g, or distention. Negative sonographic Tariq sign.Common bile [...] cava is unremarkable. The maximum visualized aortic diameteris 1.5 cm. Splenic artery and vein are patent. IMPRESSION: 1. Cirrhotic liver. 2. Trace pericholecystic fluid favored to be related to liver disease. Common bile duct is mildly distended. If concern for choledocholithiasis or other distal biliary obstruction, consider further evaluation with MRCP. 3. Normal patency and flow directionality of the hepatic and portal vasculature. Signed: Steven Green MDReport Verified Date/Time: 12/10/2020 05:50:47 [facility] [id number] 05:36:00 Test Item Value Reference Range Interpretation Comments CALCIUM IONIZED (BEAKER) (test 0.96 mmol/L 1.12-1.27 L code = 698) PH, BLOOD (BEAKER) (test code = 7.39 1810) POCT-GLUCOSE [id number] 23:40:00 Test Item Value Reference Range Interpretation Comments POC-GLUCOSE METER 296 mg/dL 70-110 H : TESTED A T [facility] 6720 (BEAKER) (test code = [facility] [place], 1538) 12[address]: [facility] Chamber Technician/Techni sanjeev ID = [id number] for LADI NORRISMICK manual2021-07-10 20:39:00 Test Item Value Reference Range Interpretation Comments ABO Grouping (test code = 2588) A Rh Factor (test code = 2589) POS [facility] AngelesHEMOGLOBIN AND [id number] 19:15:00 Test Item Value Reference Range Interpretation Comments HEMOGLOBIN (BEAKER) (test code = 10.0 GM/DL 11.2-15.7 L 410) HEMATOCRIT (BEAKER) (test code = 31.1 % 34.1-44.9 L 411) [facility] Chamber Technician ID - [id number]-1 Antigen with HIV-1/2 [id number] 19:10:00 Test Item Value Reference Range Interpretation Comments HIV-1 Antigen with HIV 1&2 Nonreactive Nonreactive Antibody (test code = 67336-7) JULIAN (test code = JULIAN) [facility] Chamber Technician ID - EO Lab Interpretation (test Normal code = 77856-1) [facility] Angeles[facility]atitis A antibody, [id number] 19:10:00 Test Item Value Reference Range Interpretation Comments Hep A IgG (test code = Nonreactive Nonreactive 12169-6) JULIAN (test code = JULIAN) [facility] Chamber Technician ID - EO Lab Interpretation (test Normal code = 70958-5) [facility] ANTIGEN WITH HIV-1/2 [id number] 19:10:00 Test Item Value Reference Range Interpretation Comments HIV-1 ANTIGEN WITH HIV 1\\T\\2 Nonreactive Nonreactive ANTIBODY (2) (BEAKER) (test code = 2586) [facility] Technician ID - EOHEPATITIS A ANTIBODY, [id number] 19:10:00 Test Item Value Reference Range Interpretation Comments HEPATITIS A IGG ANTIBODY (BEAKER) Nonreactive Nonreactive (test code = 2797) [facility] Chamber Technician ID - EOHepatitis panel, [id number] 18:50:00 Test Item Value Reference Range Interpretation Comments Hep A IgM (test code = Nonreactive Nonreactive 02063-9) Hep B C IgM (test code = Nonreactive Nonreactive 19873-4) Hepatitis C Ab (test code = Reactive Nonreactive A 47116-5) HBsAg Screen (test code = Nonreactive Nonreactive 5195-3) JULIAN (test code = JULIAN) [facility] Chamber Technician ID - EO Lab Interpretation (test Abnormal code = 62689-9) [facility] Angeles[facility]AT[facility]IS PANEL, [id number] 18:50:00 Test Item Value Reference Range Interpretation Comments HEPATITIS A IGM ANTIBODY (BEAKER) Nonreactive Nonreactive (test code = 498) HEPATITIS B CORE IGM ANTIBODY Nonreactive Nonreactive (BEAKER) (test code = 645) HEPATITIS C ANTIBODY (BEAKER) Reactive Nonreactive A (test code = 367) HEPATITIS B SURFACE ANTIGEN (2) Nonreactive Nonreactive (BEAKER) (test code = 2585) [facility] Chamber Technician ID - EOHepatitis B core antibody, [id number] 18:49:00 Test Item Value Reference Range Interpretation Comments Hep B Core Total Ab (test Reactive Nonreactive A code = 89970-7) JULIAN (test code = JULIAN) [facility] Chamber Technician ID - EO Lab Interpretation (test Abnormal code = 76125-9) [facility] Angeles[facility]AT[facility]IS B CORE ANTIBODY, [id number] 18:49:00 Test Item Value Reference Range Interpretation Comments HEPATITIS B CORE TOTAL ANTIBODY Reactive Nonreactive A (BEAKER) (test code = 497) [facility] Chamber Technician ID - EOCarcinoembryonic Antigen (CEA)2020-12-09 18:42:00 Test Item Value Reference Range Interpretation Comments CEA, SERUM (test code = 11.8 ng/mL 0-5 H 2038-) JULIAN (test code = JULIAN) [facility] Chamber Technician ID - EO Lab Interpretation (test Abnormal code = 89444-0) [facility] Angeles[facility] fetoprotein (AFP), tumor [id number] 18:42:00 Test Item Value Reference Range Interpretation Comments Alpha-Fetoprotein (test code 3.4 ng/mL <10.0 = 1834-1) JULIAN (test code = JULIAN) [facility] Chamber Technician ID - EO Lab Interpretation (test Normal code = 40633-8) [facility] AngelesCARCINOEMBRYONIC ANTIGEN (CEA)2020-12-09 18:42:00 Test Item Value Reference Range Interpretation Comments CARCINOEMBRYONIC ANTIGEN (BEAKER) 11.8 ng/mL 0.0-5.0 H (test code = 685) [facility] Chamber Technician ID - EOALPHA FETOPROTEIN (AFP), TUMOR [id number] 18:42:00 Test Item Value Reference Range Interpretation Comments ALPHA-FETOPROTEIN (BEAKER) (test 3.4 ng/mL <10.0 code = 1094) [facility] Chamber Technician ID - EOVitamin D, 87-[id number] 18:39:00 Test Item Value Reference Range Interpretation Comments Vitamin D 25-Hydroxy 9.7 ng/mL 6.6-49.9 (test code = 2764) JULIAN (test code = JULIAN) Effective 03/12/2017: Reference Range ChangeNew: 6.6-49.9 ng/mL Previous: 13.0-47.8 ng/mL Recommended Vitamin D Target Range: 30.0-40.0 ng/mLOperator ID - EO Lab Interpretation (test Normal code = 14710-6) [facility] AngelesVITAMIN D, [id number] 18:39:00 Test Item Value Reference Range Interpretation Comments VITAMIN D 25-OH (BEAKER) (test code 9.7 ng/mL 6.6-49.9 = 2764) Effective 03/12/2017: Reference Range ChangeNew: 6.6-49.9 ng/mL Previous: 13.0- 47.8 ng/mLRecommendedVitamin D Target Range: 30.0-40.0 ng/mLOperator ID - EO Fjfbm-3-kgwpsgjacdi6733-07-10 18:22:00 Test Item Value Reference Range Interpretation Comments A-1 Antitrypsin (test code = 127.60 mg/dL 90-200 1825-9) JULIAN (test code = JULIAN) [facility]itude Chamber Technician ID - EO Lab Interpretation (test Normal code = 76727-7) [facility] AngelesSmzsleGSUMH-2-[id number] 18:22:00 Test Item Value Reference Range Interpretation Comments ALPHA-1 ANTITRYPSIN (BEAKER) 127.60 mg/dL 90.00-200.00 (test code = 502) [facility] Chamber Technician ID - [id number] 17:32:00 Test Item Value Reference Range Interpretation Comments AMMONIA (BEAKER) (test code = 348) 97 mol/L 18-72 H [facility] Chamber Technician ID - DBUrinalysis w/Microscopic + Reflex to [id number] 17:27:00 Test Item Value Reference Range Interpretation Comments Color, UA (test code Light Yellow = 5778-6) Clarity, UA (test Clear code = 5767-9) Specific [place], UA 1.017 1.001-1.035 (test code = 5811-5) pH, UA (test code = 6.0 5.0-8.0 5803-2) Protein, UA (test 20 mg/dL Negative A code = 63772-5) Glucose, UA (test Negative Negative code = 365) Ketones, UA (test 10 mg/dL Negative A code = 2514-8) Bilirubin, UA (test Negative Negative code = 91730-6) Blood, UA (test code Moderate Negative A = 91361-4) Nitrite, UA (test Negative Negative code = 5802-4) Leukocytes, UA (test Moderate Negative A code = 5799-2) Urobilinogen, UA 0.2 mg/dL 0.2-1 (test code = 18218-4) RBC, UA (test code = 137 See_Comment [Autom ated 17008-7) message] The system which generated this result [...] . Bacteria, UA (test Few code = 20181-9) Mucus (test code = Rare 8247-9) Squam Epithel, UA <1 See_Comment [Automate d (test code = 81222-0) messag e] The system which generated this result transmitted reference range : /HPF. The reference range was not used to interpret this result as normal/abnormal . Hyaline Casts, UA 4 See_Comment [Automate d (test code = 09503-5) messag e] The system which generated this result transmitted reference range : /LPF. The reference range was not used to interpret this result as normal/abnormal . Crystals, Urine (test Occasional code = 05211-3) Specimen Source (test code = 2795) JULIAN (test code = JULIAN) [facility] Chamber Technician ID - [auto]Altitude Chamber Technician ID - tech Lab Interpretation Abnormal (test code = 47439-2) [facility] AngelesURINALYSIS W/ REFLEX URINE [id number] 17:27:00 Test Item Value Reference Range Interpretation [...] code = 1521) SOURCE(BEAKER) (test code = 2725) Altitude Chamber Technician ID - [auto][facility] Chamber Technician ID - wjrnKphlrqbt2880-63-27 16:11:00 Test Item Value Reference Range Interpretation Comments Ferritin (test code = 30.15 ng/mL 5-275 2276-4) JULIAN (test code = JULIAN) [facility] Chamber Technician ID - DB Lab Interpretation (test Normal code = 39839-1) [facility] AngelesFERRITIN2021-07-10 16:11:00 Test Item Value Reference Range Interpretation Comments FERRITIN (BEAKER) (test code = 30.15 ng/mL 5.00-275.00 361) [facility] Chamber Technician ID - DBAcetaminophen [id number] 15:52:00 Test Item Value Reference Range Interpretation Comments Acetaminophen Level <5.7 10-30 L (test code = 3298-7) JULIAN (test code = JULIAN) Therapeutic Range: 10.0-30.0 g/mLToxic Levels: >200.0 g/mL Altitude Chamber Technician ID - DB Lab Interpretation (test Abnormal code = 89263-0) [facility] AngelesACETAMINOPHEN [id number] 15:52:00 Test Item Value Reference Range Interpretation Comments ACETAMINOPHEN LEVEL (BEAKER) (test < ug/mL 10.0-30.0 L code = 344) Therapeutic Range: 10.0-30.0 g/mLToxic Levels: >200.0 g/mLOperator ID - DB COMPREHENSIVE METABOLIC [id number] 15:52:00 Test Item Value Reference Range Interpretation [...] S NOT APPLICABLE FOR DIALYSIS PATIEN TS. [facility] Chamber Technician ID - DBIron, TIBC, % sat. (without ferritin)2020-12-09 15:51:00 Test Item Value Reference Range Interpretation Comments Iron (test code = 2498-4) 160.0 ug/dL 40-160 TIBC (test code = 2500-7) 355 ug/dL 250-450 Iron % Saturation (test code 45 % 20-55 = 2502-3) JULIAN (test code = JULIAN) [facility]itude Chamber Technician ID - DB Lab Interpretation (test Normal code = 30850-8) [facility] AngelesIRON, TIBC, % SAT. (WITHOUT FERRITIN)2020-12-09 15:51:00 Test Item Value Reference Range Interpretation Comments IRON (BEAKER) (test code = 547) 160.0 ug/dL 40.0-160.0 TOTAL IRON BINDING CAPACITY 355 ug/dL 250-450 (BEAKER) (test code = 769) IRON % SATURATION (2) (BEAKER) 45 % 20-55 (test code = 2590) [facility] Chamber Technician ID - DBCBC W/PLT COUNT & AUTO [id number] 15:32:00 Test Item Value Reference Range Interpretation [...] PERCENT (BEAKER) (test code = 2801) CHEM [id number] 19:53:00 Test Item Value Reference Range Interpretation Comments ALANINE AMINOTRANSFERASE (test code = 27 6-29 ALANINE AMINOTRANSFERASE) [facility] [id number] 19:53:00 Test Item Value Reference Range Interpretation Comments Ammonia (test code = Ammonia) 114 [facility] [id number] 19:53:00 Test Item Value Reference Range Interpretation Comments Hgb A1C (test code = Hgb A1C) 9.5 [facility] [id number] 19:53:00 Test Item Value Reference Range Interpretation Comments Glucose Lvl (test code = Glucose Lvl) 223 65-139 [facility] [id number] 19:53:00 Test Item Value Reference Range Interpretation Comments BUN (test code = BUN) 18 7-25 [facility] CenterCHE[facility] [id number] 19:53:00 Test Item Value Reference Range Interpretation Comments Creatinine Lvl (test code = Creatinine 1.37 0.50-1.05 Lvl) [facility] [id number] 19:53:00 Test Item Value Reference Range Interpretation Comments eGFR NON-AFR. [place]IZ[place] (test code = 44 eGFR NON-AFR. [place]IZ[place]) [facility]2021-05-24 19:53:00 Test Item Value Reference Range Interpretation Comments eGFR (test code = eGFR 51 ) [facility]2021-05-24 19:53:00 Test Item Value Reference Range Interpretation Comments B/C Ratio (test code = B/C Ratio) 13 6-22 [place] [id number] 19:53:00 Test Item Value Reference Range Interpretation Comments Sodium Lvl (test code = Sodium Lvl) 141 135-146 [facility]2021-05-24 19:53:00 Test Item Value Reference Range Interpretation Comments Potassium Lvl (test code = Potassium 3.9 3.5-5.3 Lvl) [facility]2021-05-24 19:53:00 Test Item Value Reference Range Interpretation Comments Chloride Lvl (test code = Chloride Lvl) 99 98-110 [facility]2021-05-24 19:53:00 Test Item Value Reference Range Interpretation Comments CO2 (test code = CO2) 31 20-32 [facility]2021-05-24 19:53:00 Test Item Value Reference Range Interpretation Comments Calcium Lvl (test code = Calcium Lvl) 9.6 8.6-10.4 [facility]2021-05-24 19:53:00 Test Item Value Reference Range Interpretation Comments Total Protein (test code = Total 7.6 6.1-8.1 Protein) [facility]2021-05-24 19:53:00 Test Item Value Reference Range Interpretation Comments Albumin Lvl (test code = Albumin Lvl) 3.9 3.6-5.1 [facility]2021-05-24 19:53:00 Test Item Value Reference Range Interpretation Comments Globulin (test code = Globulin) 3.7 1.9-3.7 [place] [id number] 19:53:00 Test Item Value Reference Range Interpretation Comments A/G Ratio (test code = A/G Ratio) 1.1 1.0-2.5 [place] [id number] 19:53:00 Test Item Value Reference Range Interpretation Comments Bili Total (test code = Bili Total) 0.8 0.2-1.2 [place] [id number] 19:53:00 Test Item Value Reference Range Interpretation Comments Alk Phos (test code = Alk Phos) 95 37-153 [facility]2021-05-24 19:53:00 Test Item Value Reference Range Interpretation Comments ASPARTATE TRANSAMINASE (test code = 29 10-35 ASPARTATE TRANSAMINASE) [facility]2021-05-24 19:53:00 Test Item Value Reference Range Interpretation Comments Glucose Lvl (test code = Glucose Lvl) 223 65-139 [facility]2021-05-24 19:53:00 Test Item Value Reference Range Interpretation Comments BUN (test code = BUN) 18 12-24 [place] [id number] 19:53:00 Test Item Value Reference Range Interpretation Comments Creatinine Lvl (test code = Creatinine 1.37 0.50-1.05 Lvl) [facility]2021-05-24 19:53:00 Test Item Value Reference Range Interpretation Comments eGFR NON-AFR. [place] (test code = 44 eGFR NON-AFR. [place]IZ[place] [facility]2021-05-24 19:53:00 Test Item Value Reference Range Interpretation Comments eGFR (test code = eGFR 51 ) [facility]2021-05-24 19:53:00 Test Item Value Reference Range Interpretation Comments B/C Ratio (test code = B/C Ratio) 13 11-21 [facility]2021-05-24 19:53:00 Test Item Value Reference Range Interpretation Comments Sodium Lvl (test code = Sodium Lvl) 141 135-146 [facility]2021-05-24 19:53:00 Test Item Value Reference Range Interpretation Comments Potassium Lvl (test code = Potassium 3.9 3.5-5.3 Lvl) [place] [id number] 19:53:00 Test Item Value Reference Range Interpretation Comments Chloride Lvl (test code = Chloride Lvl) 99 98-110 [facility]2021-05-24 19:53:00 Test Item Value Reference Range Interpretation Comments CO2 (test code = CO2) 31 20-32 [place] [id number] 19:53:00 Test Item Value Reference Range Interpretation Comments Calcium Lvl (test code = Calcium Lvl) 9.6 8.6-10.4 [place] [id number] 19:53:00 Test Item Value Reference Range Interpretation Comments Total Protein (test code = Total 7.6 6.1-8.1 Protein) [facility] [id number] 19:53:00 Test Item Value Reference Range Interpretation Comments Albumin Lvl (test code = Albumin Lvl) 3.9 3.6-5.1 [facility] [id number] 19:53:00 Test Item Value Reference Range Interpretation Comments Globulin (test code = Globulin) 3.7 1.9-3.7 [facility] [id number] 19:53:00 Test Item Value Reference Range Interpretation Comments A/G Ratio (test code = A/G Ratio) 1.1 1.0-2.5 [facility]2021-05-24 19:53:00 Test Item Value Reference Range Interpretation Comments Bili Total (test code = Bili Total) 0.8 0.2-1.2 [facility]2021-05-24 19:53:00 Test Item Value Reference Range Interpretation Comments Alk Phos (test code = Alk Phos) 95 37-153 [facility] [id number] 19:53:00 Test Item Value Reference Range Interpretation Comments ASPARTATE TRANSAMINASE (test code = 29 10-35 ASPARTATE TRANSAMINASE) [facility]2021-05-24 19:53:00 Test Item Value Reference Range Interpretation Comments ALANINE AMINOTRANSFERASE (test code = 27 6-29 ALANINE AMINOTRANSFERASE) [facility] [id number] 19:53:00 Test Item Value Reference Range Interpretation Comments Ammonia (test code = Ammonia) [id number] 19:53:00 Test Item Value Reference Range Interpretation Comments Hgb A1C (test code = Hgb A1C) 9.5 [facility] Notes Date/Time Note Provider Source 2021-07-23 11:02:59-00:00 PROCEDURE INFORMATION: [facility] Exam: MR Head Without Contrast Exam date and time: 07/23/2021 11:05 AM Age: 55 years old Clinical indication: /memory loss TECHNIQUE: Imaging protocol: MR of the head without contras t. COMPARISON: BRAIN WO CONTRAST MRI 12/06/2020 5:57 PM FINDINGS: Brain: No abnormal restricted diffusion or gradi ent susceptibility artifact. Few scattered areas of T2/FLAIR signal abnormali ty are present in the supratentorial white matter. Cerebral ventricles: Normal. No ventriculomegaly . Bones/joints: Unremarkable. Paranasal sinuses: Mucosal thickening in the rig ht maxillary sinus. Mastoid air cells: Minimal fluid in the right in ferior mastoid air cells. Orbital cavity: Unremarkable. Soft tissues: Unremarkable. IMPRESSION: 1. No significant interval change from prior exa mination. 2. Minimal chronic microangiopathic changes. Emeterio Marie MD On 07/23/2021 12:49:12; [id number] 2020-12-06 17:55:58-00:00 PROCEDURE INFORMATION: [facility] Exam: MR Head Without Contrast Exam date and time: 12/06/2020 5:57 PM Age: 54 years old Clinical indication: Other amnesia; Additional i nfo: /memory loss TECHNIQUE: Imaging protocol: MR of the head without contras t. COMPARISON: No relevant prior studies available. FINDINGS: The study is degraded by patient tanika yoo. Brain: There is no acute cortical infarct, paren chymal hemorrhage or an intra-axial mass. Sellar and parasellar structur es are normal. There is no cerebellar tonsillar ectopia. There is minimal s ubcortical areas of gliosis. There is flow in the 4th portions of both verteb ral arteries, the basilar artery and intracranial carotid arteries. The co chlear, vestibule and 7th and 8th nerve fascicles are normal. There is minimal cortical atrophy and mesial temporal lobe involvement. Cerebral ventricles: Normal. No ventriculomegaly . Bones/joints: Unremarkable. Paranasal sinuses: There is a 5 mm mucous retent ion cyst in the right lateral sphenoid sinus. Mastoid air cells: Normal as visualized. No mast oid effusion. Orbital cavity: Unremarkable. Soft tissues: Unremarkable. IMPRESSION: There is minimal subcortical gliosis. There is n o acute cortical infarct, parenchymal hemorrhage or an intra-axial mass. T here is minimal mesial temporal lobe atrophy. Javier Hong MD On 12/06/2020 19:35:38; MEDHATBB [id number]
[2023-01-25] MEDS ORDERED: FUROSEMIDE 20 MG/ 2ML VIAL ONE (21:22)
[2023-01-25 21:25] LABS: Absolute Lymphocytes (CBC) 0.9 K/uL (0.7-4.9); Lymphocytes % 15.7 % (15.3-44.8); MCV 83.2 fL (80-100); MPV 10.1 fL (7.6-11.3); Platelets 52 thou/uL (152-406)
[2023-01-25 21:42] LABS: Albumin 2.7 g/dL (3.4-5.0); Bilirubin Total 0.9 mg/dL (0.2-1.0); Potassium 3.7 mEq/L (3.5-5.1); Protein, Total 6.6 g/dL (6.4-8.2)
[2023-01-25 22:07] LABS: Anisocytosis 1+; Blood Morphology Comment NOTED (NOT SEEN); Platelet Estimate DECR; Platelets, Giant FEW PRESENT; Polychromasia 1+; White Blood Cell Scan OK (OK)
[2023-01-25 22:58] LABS: Specific Gravity 1.006 (1.005-1.030); Urine Bilirubin NEGATIVE (Negative); Urine Blood Negative (Negative); Urine Clarity Clear (Clear); Urine Color Colorless (Yellow); Urine Glucose NEGATIVE (Negative); Urine Protein NEGATIVE (Negative); Urine Urobilinogen Normal (Normal)
[2023-01-25 23:01] LABS: Protime INR 1.26
[2023-01-25] MEDS ORDERED: MORPHINE 4 MG/ML SYR ONE (23:15)
--- NOTE | 2023-01-25 23:39 | EDPHYS ---
Physician Documentation [facility] Name: Cheyenne Mcgill Age: 57 yrs Sex: Female : 1965 Arrival Date: 01/25/2023 Time: 20:27 Bed 9 Private MD: ED Physician Mingo Mcgill HPI: 01/25 23:51 This 57 yrs old Female presents to ER via Wheelchair with complaints of Swelling of ms3 Lower Extremity, Back Pain. 23:51 57-year-old female with past medical history of liver cirrhosis, diabetes, hepatitis, ms3 thrombocytopenia presents for lower extremity swelling, abdominal swelling that began 1 and half weeks prior to arrival. Patient states her lower extremity pain is an 8/10 and described as burning. Patient denies nausea, vomiting, shortness of breath, fevers, chills. Patient denies alleviating or inciting factors. 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 ap3 Historical: - Allergies: 20:40 No Known Allergies; ap3 - Home Meds: 20:40 Wellbutrin Oral 100 mg [Active]; fluoxetine 40 mg Oral capsule [Active]; gabapentin 300 ap3 mg oral capsule [Active]; hydroxyzine HCl 25 mg Oral tablet [Active]; lactulose 10 gram/15 mL Oral solution [Active]; metformin 1,000 mg Oral tablet [Active]; pantoprazole 40 mg oral tablet, delayed release (enteric coated) [Active]; propranolol 20 mg Oral tablet [Active]; rifaximin 550 mg oral tablet [Active]; lisinopril 5 mg Oral tablet [Active]; Robaxin Oral 750 mg [Active]; tramadol 50 mg Oral tablet [Active]; simvastatin 20 mg Oral tablet [Active]; - PMHx: 20:40 cirrhosis of liver; Diabetes - NIDDM; Hepatitis; low platelets; splenomegaly; ap3 - Immunization history:: Client reports receiving the 2nd dose of the Covid vaccine. - Social history:: Smoking status: Patient reports the use of cigarette tobacco products, smokes one-half pack cigarettes per day. ROS: 01/26 00:20 Constitutional: Negative for fever, and chills. Neck: Negative for injury, pain, and ms3 swelling, Cardiovascular: Negative for chest pain, and palpitations. Respiratory: Negative for shortness of breath, cough, wheezing, and pleuritic chest pain. Abdomen/GI: Positive for Swelling. MS/extremity: Positive for swelling. All other systems are negative. Exam: 00:20 Constitutional: This is a well developed, well nourished patient who is awake, alert, ms3 and in no acute distress. Head/Face: Normocephalic, atraumatic. Neck: Trachea midline, no cervical lymphadenopathy. Supple, full range of motion without nuchal rigidity, or vertebral point tenderness. No Meningismus. Chest/axilla: Normal chest wall appearance and motion. Nontender with no deformity. Cardiovascular: Regular rate and rhythm with a normal S1 and S2. No gallops, murmurs, or rubs. Normal PMI, no JVD. No pulse deficits. Respiratory: Lungs have equal breath sounds bilaterally, clear to auscultation and percussion. No rales, rhonchi or wheezes noted. No increased work of breathing, no retractions or nasal flaring. 00:20 Abdomen/GI: Inspection: distension, that is moderate, Bowel sounds: normal, Palpation: nontender, Edema present in the lower half. 00:20 Musculoskeletal/extremity: Extremities: 4+ pitting edema bilateral lower extremities. Vital Signs: 01/25 20:38 BP 125 / 69; Pulse 93; Resp 17; Temp 98.5; Pulse Ox 96% ; Weight 61.23 kg; Pain 8/10; ap3 23:58 BP 130 / 85; Pulse 92; Resp 20; Pulse Ox 98% ; kl 20:38 Pain Scale: Adult ap3 MDM: 21:10 Patient medically screened. ms3 01/26 00:20 Differential diagnosis: Liver failure vs Nephrotic syndrome vs Heart failure. Data ms3 reviewed: vital signs, nurses notes, lab test result(s), radiologic studies, ultrasound, and as a result, I will admit patient. Consideration of Admission/Observation Patient was admitted/placed on observation. Management of patient was discussed with the following: Hospitalist: Dr Sellers. I considered the following discharge prescriptions or medication management in the emergency department Medications were administered in the Emergency Department. See MAR. Independent interpretation of the following test(s) in the Emergency Department. Historians other than the Patient: Parent: Patient's mother. Care significantly affected by the following Social Determinants of Health: Poor access to healthcare and/or lack of insurance. Counseling: I had a detailed discussion with the patient and/or guardian regarding the historical points, exam findings, and any diagnostic results supporting the discharge/admit diagnosis, lab results, radiology results, the need for further work-up and treatment in the hospital. ED course: Discussed case with Dr Sellers and he accepts patient. Discussed plan for admission with patient and her mother.. 01/25 21:10 Order name: CBC with Diff; Complete Time: 22:16 ms3 01/25 21:10 Order name: CMP; Complete Time: 22:16 ms3 01/25 21:30 Order name: CBC Smear Scan; Complete Time: 22:16 EDMS 01/25 22:20 Order name: Urinalysis w/ reflexes; Complete Time: 23:37 ms3 01/25 22:20 Order name: PT-INR; Complete Time: 23:37 ms3 01/25 22:26 Order name: Acute Hepatitis Panel EDMS 01/25 22:26 Order name: Acute Hepatitis Panel EDMS 01/25 22:26 Order name: Hepatitis C RNA, Quant (PCR) EDMS 01/25 22:26 Order name: Hepatitis C RNA, Quant (PCR) EDMS 01/25 22:26 Order name: HIV AG/AB, 4th Gen W/ Reflex EDMS 01/25 22:26 Order name: HIV AG/AB, 4th Gen W/ Reflex EDMS 01/25 23:50 Order name: Urinalysis w/ reflexes EDMS 01/25 23:50 Order name: CBC with Automated Diff EDMS 01/25 23:50 Order name: CBC with Automated Diff EDMS 01/25 23:50 Order name: CBC with Automated Diff EDMS 01/25 23:50 Order name: CBC with Automated Diff EDMS 01/25 23:50 Order name: Comprehensive Metabolic Panel EDMS 01/25 23:50 Order name: Comprehensive Metabolic Panel EDMS 01/25 23:50 Order name: Comprehensive Metabolic Panel EDMS 01/25 23:50 Order name: Comprehensive Metabolic Panel EDMS 01/25 23:50 Order name: Magnesium EDMS 01/25 23:50 Order name: Magnesium EDMS 01/25 23:50 Order name: Magnesium EDMS 01/25 23:50 Order name: Magnesium EDMS 01/25 23:50 Order name: Protime (+INR) EDMS 01/25 23:50 Order name: Protime (+INR) EDMS 01/25 22:21 Order name: Abdomen Complete US ms3 01/25 22:27 Order name: CONS Physician Consult EDMS 01/25 22:27 Order name: CONS Physician Consult EDMS 01/25 23:50 Order name: Regular EDMS 01/25 21:10 Order name: IV Saline Lock; Complete Time: 21:20 ms3 01/25 21:10 Order name: Labs collected and sent; Complete Time: 21:20 ms3 Administered Medications: 01/25 21:20 Drug: Furosemide IVP 20 mg Route: IVP; Site: right antecubital; ap3 22:48 Follow up: Response: No adverse reaction ap3 23:07 Drug: morphine IVP or IV 4 mg Route: IVP; Infused Over: 4 mins; Site: right antecubital;kl 23:20 Follow up: Response: No adverse reaction; Marked relief of symptoms kl Disposition Summary: 01/25/23 23:39 Hospitalization Ordered Hospitalization Status: Inpatient Admission ms3 Provider: Jim Sellers ms3 Location: Telemetry/MedSur (Inpatient) ms3 Condition: Stable ms3 Problem: new ms3 Symptoms: are unchanged ms3 Bed/Room Type: Standard ms3 Room Assignment: 205(01/26/23 00:03) kl Diagnosis - Other cirrhosis of liver ms3 - Thrombocytopenia, unspecified ms3 - Anasarca ms3 - Ascities ms3 Forms: - Medication Reconciliation Form ms3 - SBAR form ms3 - Leadership Thank You Letter ms3 Signatures: Dispatcher [employer] [facility] Sulema Jose RN RN kl Webb, Martha, RN RN mw Prokisch, Amanda, RN RN ap3 Mingo Mcgill DO DO ms3 Corrections: (The following items were deleted from the chart) 23:49 23:39 ms3 mw 01/26 00:03 01/25 23:49 218 mw kl
--- NOTE | 2023-01-25 23:39 | ER ---
Nurse's Notes [facility] Name: Cheyenne Mcgill Age: 57 yrs Sex: Female : 1965 Arrival Date: 01/25/2023 Time: 20:27 Bed 9 Private MD: Diagnosis: Other cirrhosis of liver;Thrombocytopenia, unspecified;Anasarca;Ascities Presentation: 01/25 20:38 Chief complaint: Patient states: she has been having swelling of her legs for approx ap3 1.5 weeks, patient is also complaining of lower back pain. patient currently rates her pain as a 8/10 on the pain scale. Coronavirus screen: At this time, the client does not indicate any symptoms associated with coronavirus-19. Ebola Screen: No symptoms or risks identified at this time. Initial Sepsis Screen: Does the patient meet any 2 criteria? No. Patient's initial sepsis screen is negative. Does the patient have a suspected source of infection? No. Patient's initial sepsis screen is negative. Risk Assessment: Do you want to hurt yourself or someone else? Patient reports no desire to harm self or others. Onset of symptoms was January 14, 2023. 20:38 Method Of Arrival: Wheelchair ap3 20:38 Acuity: ABDULKADIR 3 ap3 Triage Assessment: 20:45 General: Appears in no apparent distress. Behavior is calm, cooperative. Pain: ap3 Complains of pain in low back area. Neuro: Level of Consciousness is awake, alert, obeys commands, Oriented to person, place, time, situation. Cardiovascular: Cardiovascular: Patient's skin is warm and dry. Respiratory: Airway is patent Respiratory effort is even, unlabored, Respiratory pattern is regular, symmetrical. Musculoskeletal: Range of motion: intact in all extremities. 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 ap3 Historical: - Allergies: 20:40 No Known Allergies; ap3 - Home Meds: 20:40 Wellbutrin Oral 100 mg [Active]; fluoxetine 40 mg Oral capsule [Active]; gabapentin 300 ap3 mg oral capsule [Active]; hydroxyzine HCl 25 mg Oral tablet [Active]; lactulose 10 gram/15 mL Oral solution [Active]; metformin 1,000 mg Oral tablet [Active]; pantoprazole 40 mg oral tablet, delayed release (enteric coated) [Active]; propranolol 20 mg Oral tablet [Active]; rifaximin 550 mg oral tablet [Active]; lisinopril 5 mg Oral tablet [Active]; Robaxin Oral 750 mg [Active]; tramadol 50 mg Oral tablet [Active]; simvastatin 20 mg Oral tablet [Active]; - PMHx: 20:40 cirrhosis of liver; Diabetes - NIDDM; Hepatitis; low platelets; splenomegaly; ap3 - Immunization history:: Client reports receiving the 2nd dose of the Covid vaccine. - Social history:: Smoking status: Patient reports the use of cigarette tobacco products, smokes one-half pack cigarettes per day. Screenin:45 Abuse screen: Denies threats or abuse. Nutritional screening: No deficits noted. ap3 Tuberculosis screening: No symptoms or risk factors identified. 01/26 00:23 [facility] ED Fall Risk Assessment (Adult) History of falling in the last 3 months, kl including since admission No falls in past 3 months (0 pts) Confusion or Disorientation No (0 pts) Intoxicated or Sedated No (0 pts) Impaired Gait No (0 pts) Mobility Assist Device Used No (0 pt) Altered Elimination No (0 pt) Score/Fall Risk Level 0 - 2 = Low Risk Oriented to surroundings, Maintained a safe environment. Assessment: 01/25 23:58 Reassessment: Patient appears in no apparent distress at this time. Patient states kl feeling better. Patient states symptoms have improved. Neuro: Level of Consciousness is awake, alert, obeys commands, Oriented to person, place, time, situation, Speech is normal, Facial symmetry appears normal. Vital Signs: 20:38 BP 125 / 69; Pulse 93; Resp 17; Temp 98.5; Pulse Ox 96% ; Weight 61.23 kg; Pain 8/10; ap3 23:58 BP 130 / 85; Pulse 92; Resp 20; Pulse Ox 98% ; kl 20:38 Pain Scale: Adult ap3 ED Course: 20:29 Patient arrived in ED. [id number] 20:29 Mingo Mcgill DO is Attending Physician. ms3 20:40 Triage completed. ap3 20:45 Arm band placed on left wrist. ap3 21:10 Nancy Allen, MARIA M is Primary Nurse. ap3 21:20 Initial lab(s) drawn, by me, sent to lab. Inserted saline lock: 22 gauge in right ap3 antecubital area, using aseptic technique. 21:20 CBC with Diff Sent. ap3 21:20 CMP Sent. ap3 21:23 Patient has correct armband on for positive identification. Bed in low position. Call ap3 light in reach. Side rails up X 1. Adult w/ patient. 21:23 Provided Education on: medications prior to administration. ap3 22:33 PT-INR Sent. kl 22:38 ultrasound at bedside. ap3 22:45 Urinalysis w/ reflexes Sent. kl 22:57 Abdomen Complete US In Process Unspecified. EDMS 23:38 Jim Sellers MD is Hospitalizing Provider. ms3 23:58 No provider procedures requiring assistance completed. Patient admitted, IV remains in kl place. Administered Medications: 21:20 Drug: Furosemide IVP 20 mg Route: IVP; Site: right antecubital; ap3 22:48 Follow up: Response: No adverse reaction ap3 23:07 Drug: morphine IVP or IV 4 mg Route: IVP; Infused Over: 4 mins; Site: right antecubital;kl 23:20 Follow up: Response: No adverse reaction; Marked relief of symptoms kl Medication: 21:23 VIS not applicable for this client. ap3 Outcome: 23:39 Decision to Hospitalize by Provider. ms3 01/26 00:23 Admitted to Med/surg accompanied by nurse, room 205, Report called to [place] Condition: stable Discharge instructions given to patient, Instructed on the need for admit, Demonstrated understanding of instructions. 00:24 Patient left the ED. Signatures: [facility] Sulema Jose RN RN kl Prokisch, Amanda, RN RN ap3 Mingo Mcgill DO DO ms3 Charla Martin [email or web address]
--- NOTE | 2023-01-25 23:44 | P.HP ---
Certification for Inpatient Patient admitted to: Inpatient With expected LOS: <2 Midnights Patient will require the following post-hospital care: None Practitioner: I am a practitioner with admitting privileges, knowledge of patient current condition, hospital course, and medical plan of care. Services: Services provided to patient in accordance with Admission requirements found in Title 42 Section 412.3 of the Code of Federal Regulations Patient History Date of Service: 01/26/23 History of Present Illness: 57-year-old female with a past medical history of cirrhosis, hepatitis C, diabetes, thrombocytopenia presents urgency room with abdominal swelling. She reports abdominal swelling over the last week has progressively gotten worse. She reports being hospitalized in [place] about 1 month ago she denies a history of paracentesis. She reports she did not follow-up with GI after discharge. She reports medication noncompliance with lactulose over the past 6 months. She reports previous EGD about 1 year ago with esophageal varices with banding. She reports rectal hemorrhoids with rectal bleeding with occasional stools. She reports abdominal tenderness to the left quadrant, she denies shortness of breath, fever, chills, cough, chest pain, leg swelling. She reports peripheral neuropathy with a leg tingling and pain. Plan to admit for - Other cirrhosis of liver, Thrombocytopenia, unspecified, Anasarca, Ascities ER evaluation 8 BP 125 / 69; Pulse 93; Resp 17; Temp 98.5; Pulse Ox 96% ; Weight 61.23 kg; Pain 8/10; ap3 23:58 BP 130 / 85; Pulse 92; Resp 20; Pulse Ox 98% ; CBC WBCs within normal limits 6.0, anemia 8.0, 25.0, acute kidney injury BUN 13 creatinine 1.50, likely due to prerenal, hypoalbumin 2.7, UA normal, abdominal ultrasound ordered pen ding report. Allergies No Known Drug Allergies Allergy (Verified 09/28/14 22:06) Unknown No Known Allergies Allergy (Uncoded 08/10/15 02:19) Unknown Home Medications: Gabapentin [Neurontin] 300 mg PO TID 09/28/14 Rifaximin [Xifaxan] 1 tab PO BID 09/28/14 Acetaminophen [Tylenol Extra Strength] 500 mg PO Q6HP PRN 01/26/23 Cholecalciferol (Vitamin D3) [Vitamin D3] 2,000 unit PO DAILY 01/26/23 Diphenhydramine [Benadryl Tab/Cap] 25 mg PO Q6HP PRN 01/26/23 Fluoxetine HCl [Prozac] 40 mg PO DAILY 01/26/23 Lactulose 10 gm PO DAILY 01/26/23 Lisinopril [Zestril] 5 mg PO DAILY 01/26/23 Magnesium Oxide [Mag 0X Tab] 400 mg PO DAILY 01/26/23 Metformin HCl 1,000 mg PO BID 01/26/23 Pantoprazole [Protonix Tab] 40 mg PO BID 01/26/23 Propranolol HCl 20 mg PO BID 01/26/23 Simvastatin 80 mg PO DAILY 01/26/23 Tramadol HCl [Ultram] 50 mg PO Q4HP PRN 01/26/23 buPROPion HCL [Wellbutrin] 100 mg PO BID 01/26/23 hydrOXYzine HCL [Atarax] 25 mg PO TID 01/26/23 methocarbamoL [Robaxin] 750 mg PO BIDP PRN 01/26/23 - Past Medical/Surgical History Diabetic: Yes -: DM -: PNEUMONIA -: HEP B -: HEP C -: DIABETES WITH HYPERGLYCEMIA -: ATYPICAL CHEST PAIN -: DEPENDENT EDEMA -: THROMBOCYTOPENIA -: KNEE SURGERY -: Psychosocial/ Personal History: Patient lives at home with her daughter. - Family History Father -: Heart disease Notes: heart attack Mother -: Diabetes, Stroke, Other (see notes) Notes: diverticulitis Sister -: Diabetes - Social History Alcohol use: No CD- Drugs: No Caffeine use: Yes Review of Systems 10-point ROS is otherwise unremarkable Physical Examination - Physical Exam General: Alert, In no apparent distress, Oriented x3 HEENT: Atraumatic, Normocephalic, PERRLA Neck: Supple, 2+ carotid pulse no bruit Respiratory: Clear to auscultation bilaterally, Normal air movement Cardiovascular: No edema, Normal pulses, Regular rate/rhythm, Normal S1 S2 Capillary refill: <2 Seconds Gastrointestinal: Normal bowel sounds, Ascites (LUQ tendernes, large volume acsites) Musculoskeletal: No clubbing, No swelling Integumentary: No rashes, No breakdown Neurological: Normal gait, Normal speech, Normal strength at 5/5 x4 extr - Studies Laboratory Data (last 24 hrs) 01/25/23 01/25/23 01/25/23 22:20 21:18 21:18 WBC 6.00 Hgb 8.0 L Hct 25.0 L Plt Count 52 L PT 13.9 H INR 1.26 Sodium 141 Potassium 3.7 BUN 13 Creatinine 1.25 H Glucose 119 H Total Bilirubin 0.9 AST 25 ALT 23 Alkaline Phosphatase 108 Assessment and Plan - Plan Assessment plan decompensated liver disease other cirrhosis of liver Thrombocytopenia secondary to splenomegaly unspecified, Anasarca Large volume ascities Protein calorie malnutrition Medication noncompliance History of hepatitis C History of esophageal varices Acute kidney injury likely secondary to prerenal Rectal hemorrhoids Anemia Diabetes type II DVT prophylaxis SCD Assessment plan decompensated liver disease other cirrhosis of liver likely secondary from history of hepatitis C History of hepatitis C Thrombocytopenia secondary to splenomegaly unspecified, Anasarca Large volume ascities History of esophageal varices Rectal hemorrhoids GI consult, propranolol, Lasix, Daily weight, IO, ceftriaxone first empiric SPB 125 / 69; Pulse 93; Resp 17; Temp 98.5; Pulse Ox 96% ; Weight 61.23 kg; abdominal ultrasound ordered pending report. CBC WBCs within normal limits 6.0, anemia 8.0, 25.0, hypoalbumin 2.7, UA normal, Resume appropriate home meds Acute kidney injury likely secondary to prerenal acute kidney injury BUN 13 creatinine 1.50, likely due to prerenal, Medication noncompliance Refuses to take lactulose, Resume appropriate home meds Diabetes type II Accu-Chek, sliding scale insulin level 1, Anemia Trend H&H anemia 8.0, 25.0, Protein calorie malnutrition Low-sodium diet, recommending small frequent meals DVT prophylaxis SCD Cardiac diet Full code Discharge Plan: Home Plan to discharge in: 48 Hours - Advance Directives Does patient have a Living Will: No Does patient have a Durable POA for Healthcare: No - Code Status/Comfort Care Code Status: Full Code Physician Review: Patient Assessed, Agree with Above Assessment and Plan Critical Care: No Time Spent Managing Pts Care (In Minutes): 50
[2023-01-25] MEDS ORDERED: ACETAMINOPHEN 500 MG TAB PO PRN (23:48)
[2023-01-26] MEDS ORDERED: TRAMADOL HCL 50 MG TAB PO PRN (01:09)
[2023-01-26] MEDS ORDERED: DIPHENHYDRAMINE 25 MG TAB/CAP PO PRN (01:09)
[2023-01-26] MEDS ORDERED: methocarbamoL 750 MG TAB PO PRN (01:09)
[2023-01-26] MEDS ORDERED: D50W 25 GM/50 ML SYRINGE IV PRN (01:11)
[2023-01-26] MEDS ORDERED: GLUCAGON 1 MG/VIAL IM PRN (01:11)
[2023-01-26] MEDS: CEFTRIAXONE 1,000 MG in NA CHLORIDE 0.9% 50 ML IVPB SCH ×2 (01:52→20:48)
[2023-01-26 04:50] LABS: Protime INR 1.34
[2023-01-26 04:55] LABS: Absolute Lymphocytes (CBC) 0.7 K/uL (0.7-4.9); Hematocrit 19.2 % (36.0-45.0); Lymphocytes % 20.7 % (15.3-44.8); MCV 83.5 fL (80-100); Platelets 31 thou/uL (152-406)
[2023-01-26 04:56] LABS: Albumin 2.2 g/dL (3.4-5.0); Bilirubin Total 0.6 mg/dL (0.2-1.0); Magnesium 1.9 mg/dL (1.6-2.4); Potassium 3.6 mEq/L (3.5-5.1); Protein, Total 5.5 g/dL (6.4-8.2)
[2023-01-26] MEDS: INSULIN -REGULAR HUMAN 50 UNIT/0.5 ML ML SQ SCH ×4 (07:30→21:00)
[2023-01-26 08:18] LABS: Hematocrit 18.4 % (36.0-45.0)
[2023-01-26] MEDS: PANTOPRAZOLE 40MG TABLET PO SCH ×2 (08:50→20:48)
[2023-01-26] MEDS: LACTULOSE 20 GM/30 ML UCUP PO SCH (09:00)
[2023-01-26] MEDS ORDERED: Rifaximin 550 MG Tab PO SCH (09:00)
[2023-01-26] MEDS ORDERED: POTASSIUM CL SA 10 MEQ TAB PO ONE (09:00)
[2023-01-26] MEDS: PROPRANOLOL HCL 10 MG TAB PO SCH ×2 (09:00→20:47)
[2023-01-26] MEDS: ATORVASTATIN 40 MG TAB PO SCH (09:00)
[2023-01-26] MEDS: hydrOXYzine HCL 25 MG TAB PO SCH ×3 (09:00→20:48)
[2023-01-26] MEDS: buPROPion HCL 100 MG TAB PO SCH ×2 (09:00→20:47)
[2023-01-26] MEDS ORDERED: NA CHLORIDE 0.9% 100 ML ONE ×3 (10:05→16:03)
[2023-01-26] MEDS ORDERED: ALBUMIN HUMAN 25% 100 ML IV ONE ×2 (12:00→23:45)
[2023-01-26] MEDS: FENTANYL CITR 100 MCG/2 ML IV PRN ×2 (13:30→22:18)
--- NOTE | 2023-01-26 15:18 | CON ---
Date of Consultation: 01/26/2023 Reason For Consultation: Anasarca, proteinuria. History Of Present Illness: This is a 57-year-old female with significant past medical history of he p C since 1993 complicated with cirrhosis with recurrent paracentesis and portal hypertension with up per GI bleed, diabetes, diagnosis in 2017 complicated with retinopathy no neuropathy, thrombocytopeni a, the patient came to the hospital with anasarca, increased leg swelling and increased abdominal dis tention, found to have significant anemia and elevation in BUN and creatinine. The patient denied ta stevan any nonsteroidal. No IV contrast. The patient has been on lisinopril and diuresis as outpatien t. The patient received transfusion today and planned for another unit and EGD today. Past Medical History: Includes; 1.Cirrhosis secondary to hep C since 1993. 2.Diabetes since 2016 complicated with retinopathy, no neuropathy. 3.Thrombocytopenia secondary to cirrhosis. Past Surgical History: Includes; 1.Paracentesis. 2.. 3.Knee surgery. Allergies: NO KNOWN DRUGS ALLERGY. Home Medications: Include gabapentin, rifaximin, Tylenol, cholecalciferol, fluoxetine, lisinopril, m etformin, pantoprazole, propranolol, simvastatin, tramadol, . Family History: Positive for diabetes and hypertension. Social History: Denied smoking, denied drinking, denied drugs abuse. Review of Systems: Head and Neck: No red eye. No ear pain. GI: Increased abdominal girth. Has black stool. : No polyuria. No dysuria. No hematuria. 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 Respiratory: No shortness of breath. Cardiovascular: Has leg swelling. Endocrine: No polydipsia. Skin: No rash. Neuro: No neuropathy. No weakness. Has fatigue. Musculoskeletal: Generalized fatigue. Physical Examination: Vital Signs: When I saw the patient; blood pressure 114/62, pulse of 88. Chest: Clear to auscultation. Heart: S1, S2. Systolic murmur. Abdomen: Ascites. Extremity: +2 edema. Neurologic: Alert, oriented x3. No tremor. Laboratory Data: Hemoglobin 5.7. Sodium 141, potassium 3.6, bicarb 26, BUN 14, creatinine 1.2, GFR of 52, calcium 7.7, albumin 2.2, corrected calcium is 9.3. Current Medications: The patient on include; 1.Ceftriaxone. 2.Rifaximin. 3. . 4.Atorvastatin. 5.Bupropion. 6.Pantoprazole. 7.Tramadol. Assessment And Plan: 1.Acute kidney injury, the patient used to have normal kidney function before, mostly secondary to h epatorenal, peripheral edema without any respiratory symptoms. I am going to go ahead and get renal ultrasound to evaluate the kidney function. We will quantify the proteinuria. The patient already s tarted on albumin and going to receive blood transfusion. We will continue on that and we will follo w up the patient. I am going to go ahead and give the patient Lasix after the transfusion and we rip l monitor. Hold metformin. Hold lisinopril. We will monitor. 2.Hypertension, controlled currently on the lower side. Hold lisinopril with the presence of acute kidney injury. 3.Hypokalemia. We will supplement. 4.Anasarca mostly secondary to hypoalbuminemia secondary to cirrhosis. Given the history of hep C t o rule out any autoimmune disease, I am going to go ahead and send for serology. 5.Anemia mostly secondary to GI loss. The patient is going to receive transfusion. We will send fo r anemia workup and we will send for protein electrophoresis. 6.GI bleed as by primary and GI. CHRISTINA/CAROLINA Voice ID: [id number] Report ID: [id number]
--- NOTE | 2023-01-26 15:45 | RAD REPORT ---
EXAM DESCRIPTION: Corat Single View01/26/2023 3:03 pm CLINICAL HISTORY: COPD COMPARISON: Chest Single View dated 08/06/2016; CHEST SINGLE VIEW dated 08/10/2015; CHEST SINGLE VIEW d ated 01/10/2015; CHEST SINGLE VIEW dated 09/28/2014 TECHNIQUE: Portable AP view of the chest. FINDINGS: The lungs show patchy central airspace opacities more prominent on the left. No pneumothor ax or effusion. The cardiomediastinal contours are unremarkable. IMPRESSION: Patchy central airspace opacities more prominent on the left, suggesting multifocal airs pace disease.
[2023-01-26] MEDS ORDERED: FUROSEMIDE 40 MG/4 ML VIAL IV ONE (18:00)
[2023-01-26] MEDS ORDERED: NA CHLORIDE 0.9% 1,000 ML ONE (19:03)
[2023-01-26] MEDS ORDERED: EPINEPHRINE/PF 1 MG/ML AMP ONE (19:22)
[2023-01-26] MEDS ORDERED: propofoL 200 MG/20 ML VIAL IV ONE (19:24)
[2023-01-26] MEDS ORDERED: LIDOCAINE 1% MPF 5 ML VIAL ONE (19:24)
[2023-01-26 21:23] LABS: Absolute Lymphocytes (CBC) 0.5 K/uL (0.7-4.9); Hematocrit 28.5 % (36.0-45.0); MCV 83.4 fL (80-100); RBC Red Blood Cell Count 3.42 M/uL (3.86-4.86)
[2023-01-26 21:55] LABS: Lymphocytes % 14.5 % (15.3-44.8); Platelets 28 thou/uL (152-406)
[2023-01-26 22:27] LABS: Specific Gravity 1.006 (1.005-1.030); Urine Bilirubin NEGATIVE (Negative); Urine Blood Negative (Negative); Urine Clarity Clear (Clear); Urine Color Colorless (Yellow); Urine Glucose NEGATIVE (Negative); Urine Protein NEGATIVE (Negative); Urine Urobilinogen Normal (Normal)
[2023-01-26 22:49] LABS: UR CREAT < 13.0 mg/dL (20-320); UR PROTEIN < 5.0 mg/dL (<11.9); Urine Protein/Creatinine Ratio ND ratio (<0.15)
--- NOTE | 2023-01-26 23:43 | P.PN ---
Subjective Date of Service: 01/26/23 Patient is doing well. Patient with ascites and GI bleed. Patient with lower GI bleed. Continue monitoring H&H. Transfuse 2 units of packed red blood cells. Also transfuse 1 unit of platelets. Try to get paracentesis in a.m.. Had a long talk with patient and she has been following up with hepatology at the medical center. However, after attempting to get pt a transplant for extended period they realized that they were not able to afford a liver transplant. Patient wants to proceed with medical management. Patient does not want to be resuscitated and she has made herself ATN AR. She does not want to be on a ventilator nor does she want chest compressions or cardioversion. Continue with aggressive medical care at this time. Review of Systems 10-point ROS is otherwise unremarkable Physical Examination - Vital Signs Temperature: 98.3 F Blood Pressure: 144/81 Pulse: 89 Respirations: 13 Pulse Ox (%): 99 - Physical Exam General: Alert, In no apparent distress, Oriented x3 Respiratory: Clear to auscultation bilaterally, Normal air movement Cardiovascular: Regular rate/rhythm, Normal S1 S2, Systolic murmur Gastrointestinal: Normal bowel sounds, Soft and benign, No rebound, No guarding, Distended, Tenderness Musculoskeletal: No clubbing, No swelling, No tenderness Integumentary: No rashes Neurological: Sensation intact, Cranial nerves 3-12 intact - Studies Medications List Reviewed: Yes Assessment & Plan - Problems (Diagnosis) (1) Ascites Current Visit: Yes Status: Acute (2) CKD (chronic kidney disease), stage III Current Visit: Yes Status: Acute (3) Cirrhosis of liver Current Visit: No Status: Chronic Qualifiers: Hepatic cirrhosis type: unspecified hepatic cirrhosis Ascites presence: without ascites Qualified Code(s): K74.60 - Unspecified cirrhosis of liver (4) Hepatitis C Current Visit: No Status: Chronic Qualifiers: Viral hepatitis chronicity: chronic Hepatic coma status: without hepatic coma Qualified Code(s): B18.2 - Chronic viral hepatitis C (5) Thrombocytopenia Current Visit: No Status: Chronic - Plan 1. Continue with IV hydration and PPI drip/octreotide drip 2. Continue with IV antibiotics 3. Continue with pain control 4. NPO 5. GI consultation 6. Monitor LFTs and coags along with electrolytes and serial H&H. Alpha-FP pending. 7. US guided paracentesis pending 8. GI and DVT prophylaxis Discharge Plan: Home Plan to discharge in: Greater than 2 days - Advance Directives Does patient have a Living Will: No Does patient have a Durable POA for Healthcare: No - Code Status/Comfort Care Code Status: Full Code Physician Review: Patient Assessed, Agree with Above Assessment and Plan Critical Care: Yes Time Spent Managing PTS Care (In Minutes): 45
[2023-01-27 05:43] VITALS: BMI 27.2
[2023-01-27 06:48] LABS: Hepatitis B Core IgM Nonreactive (Nonreactive); Hepatitis B surface AG Interp. Nonreactive (Nonreactive); Hepatitis C Virus Ab Reactive (Nonreactive)
[2023-01-27] MEDS: INSULIN -REGULAR HUMAN 50 UNIT/0.5 ML ML SQ SCH ×4 (07:30→20:25)
[2023-01-27 07:34] LABS: Absolute Lymphocytes (CBC) 0.5 K/uL (0.7-4.9); Hematocrit 22.9 % (36.0-45.0); Lymphocytes % 19.3 % (15.3-44.8); MCV 83.7 fL (80-100); Platelets 25 thou/uL (152-406); RBC Red Blood Cell Count 2.74 M/uL (3.86-4.86)
[2023-01-27 07:39] LABS: Protime INR 1.38
[2023-01-27 08:37] LABS: Bilirubin Total 1.3 mg/dL (0.2-1.0); Ferritin 23.1 ng/mL (8-388); Magnesium 1.4 mg/dL (1.6-2.4); Phosphorus 2.9 mg/dL (2.5-4.9); Potassium 3.1 mEq/L (3.5-5.1); Uric Acid 3.2 mg/dL (2.6-6.0)
[2023-01-27] MEDS ORDERED: Magnesium Sulfate 2gm IVPB 2 G/50 ML BAG IV ONE (09:14)
[2023-01-27] MEDS ORDERED: POTASSIUM CL SA 10 MEQ TAB PO ONE (09:14)
[2023-01-27 09:19] LABS: Rheumatoid Factor POS (NEG)
[2023-01-27 09:35] LABS: Platelet Estimate DECR; White Blood Cell Scan OK (OK)
[2023-01-27] MEDS: ATORVASTATIN 40 MG TAB PO SCH (09:35)
[2023-01-27 09:36] LABS: Blood Morphology Comment NOT SEEN (NOT SEEN)
[2023-01-27] MEDS: hydrOXYzine HCL 25 MG TAB PO SCH ×3 (09:36→20:37)
[2023-01-27] MEDS: PROPRANOLOL HCL 10 MG TAB PO SCH ×2 (09:36→20:37)
[2023-01-27] MEDS: PANTOPRAZOLE 40MG TABLET PO SCH ×2 (09:36→20:37)
[2023-01-27] MEDS: buPROPion HCL 100 MG TAB PO SCH ×2 (09:37→20:37)
[2023-01-27] MEDS: LACTULOSE 20 GM/30 ML UCUP PO SCH (09:37)
--- NOTE | 2023-01-27 09:37 | RAD REPORT ---
EXAM DESCRIPTION: US - Abdomen Exam Complete - 01/25/2023 10:56 pm CLINICAL HISTORY: The patient is 57 years old and is Female; Anasarca; Hx Cirrhosis TECHNIQUE: Real-time ultrasound of the abdomen with image documentation. COMPARISON: No relevant prior studies available. FINDINGS: LIVER: The liver is cirrhotic with a nodular contour and heterogeneous in appearance. Th ere is normal hepatopedal flow. GALLBLADDER: The gallbladder is distended. No gallstones are noted. COMMON BILE DUCT: Unremarkable as visualized. No stones. No dilation. PANCREAS: The pancreas is not visualized secondary to bowel gas. KIDNEYS: Unremarkable. No stones. No solid mass. No hydronephrosis. SPLEEN: The spleen is enlarged and homogeneous. AORTA: Unremarkable. No aneurysm. INFERIOR VENA CAVA: Unremarkable. FREE FLUID: Moderate volume ascites is present throughout the visualized abdomen. IMPRESSION: Cirrhotic liver, splenomegaly, and ascites. Electronically signed by: Alise Haas MD 01/25/2023 11:25 PM CDT Due to temporary technical issues with the PACS/Fluency reporting system, reports are being signed by the in house radiologist without review as a courtesy to ensure prompt reporting. The interpreting r adiologist is fully responsible for the content of the report.
[2023-01-27] MEDS: FENTANYL CITR 100 MCG/2 ML IV PRN ×3 (09:38→21:02)
--- NOTE | 2023-01-27 10:24 | P.PN ---
Subjective Date of Service: 01/27/23 No acute events overnight. She reports abdominal distention/bloating. Plan for paracentesis today, but was rescheduled to tomorrow given thrombocytopenia. She denies any chest pain, palpitations, or shortness of breath. She denies any hematemesis, hematochezia, or melena. Review of Systems 10-point ROS is otherwise unremarkable Gastrointestinal: Distention Physical Examination - Vital Signs Temperature: 98.5 F Blood Pressure: 123/57 Pulse: 83 Respirations: 19 Pulse Ox (%): 95 - Physical Exam General: Alert, In no apparent distress, Oriented x3 HEENT: Atraumatic, Mucous membr. moist/pink, Sclerae nonicteric Neck: JVD not distended Respiratory: Diminished, Crackles/rales (bibasilar) Cardiovascular: Regular rate/rhythm, Normal S1 S2, No gallops, No rubs, No murmurs, Edema (1+ BLE) Gastrointestinal: Normal bowel sounds, Soft and benign, No tenderness, No rebound, No guarding, Distended Musculoskeletal: No clubbing Integumentary: No rashes Neurological: Normal speech, Normal affect - Studies Medications List Reviewed: Yes Assessment And Plan - Plan # Ascites and Anasarca secondary to Acute Decompensated Liver Disease from Hepatitis C Cirrhosis # Pancytopenia secondary to Cirrhosis - Consulted Gastroenterology and spoke with Dr. Mathias - recommendations appreciated - Plan for paracentesis today once platelets > 50,000 - Transfuse for platelets < 50,000 - Chest x-ray = "patchy central airspace opacities more prominent on the left, suggesting multifocal airspace disease." - Suspect pulmonary edema from anasarca - US abdomen = "cirrhotic liver, splenomegaly, and ascites." # Acute Blood Loss Anemia suspect due to above # Hepatitis C Cirrhosis complicated by Esophageal Varices - Consulted Gastroenterology and spoke with Dr. Mathias - recommendations appreciated - S/P EGD on 01/26 = "grade I varices (small, barely visible varices) were present in the distal esophagus. The varices had 3 columns. Moderate diffuse chronic gastritis was seen in the fundus and in the body of the stomach. The gastritis had the following change: portal hypertensive. Moderate diffuse acute gastritis was seen in the antrum. There was no mucosal bleeding. Two cold forceps biopsies were taken from the body and antrum." - Type & Screen - Serial H&H - Hgb: 8.0 -> 6.1 -> 5.7 -> 9.3 -> 7.6 - Transfuse for Hgb < 7.0 - 2 large bore IVs - Continue home ceftriaxone, pantoprazole, rifaximin, lactulose, propanolol - Clear liquid diet - advance as tolerated # Hypokalemia # Hypomagnesemia - Replace as needed Jourdan Montalvo M.D.
[2023-01-27] MEDS ORDERED: NA CHLORIDE 0.9% 250 ML ONE ×2 (12:10→22:50)
[2023-01-27] MEDS ORDERED: D10W 125 ML IV PRN (13:15)
--- NOTE | 2023-01-27 13:18 | CON ---
Date of Consultation: 01/26/2023 Reason For Consultation: GI bleed with hematochezia 4 months, end-stage liver disease, cirrhosis sec ondary to hepatitis C, ascites. History Of Present Illness: Patient is a 57-year-old female with history of hepatitis C ind uced cirrhosis of the liver secondary to ascites. Patient presented to the hospital with anasarca an d proteinuria, but found to have hematochezia. She reports she has been having 5-6 stools per day th at are formed, on Lactulose therapy, but has had seen blood in each stool over the past 4 months. Th e patient also has a history of ascites with recurrent ultrasound-guided paracenteses. She states sh e has taken care of by Dr. Jourdan Ocampo in [facility] for her hepatitis C induced cirrhosis of th e liver with ascites. Past Surgical History: Significant for cirrhosis of liver secondary to hepatitis C, diabetes, thromb ocytopenia, splenomegaly. Past Surgical History: Includes her recurrent ultrasound-guided paracenteses, C-sections, and knee s urgery. Medications: Gabapentin, Xifaxan, Tylenol, cholecalciferol which is vitamin D, fluoxetine, lisinopri l, metformin, Protonix, propranolol, simvastatin, tramadol. Allergies: NKDA. Social History: She is . Two daughters. She smokes about a quarter pack of cigarettes per d ay. No alcohol. States she has never had any alcohol. Family History: Father is alive with diabetes, hypertension, coronary artery disease. He has had so me type of valvular replacement and hyperlipidemia, lives in [place]. Mother is alive with diabetes and appears to have pancreas disorder of some type, she is not sure. Review of Systems: The patient has about 6 stools per day that are formed with Lactulose therapy, but she is noted to velazquez ve hematochezia with this for the past 4 months. She has had recurrent abdominal ascites, distention . She reports generalized abdominal pain is mild, but no fevers, chills, night sweats, melena, hemat emesis, coffee-ground emesis, epistaxis, hematuria, dysuria, polyuria, polydipsia, chest pain, shortn ess of breath, seizure, syncope, depression, anxiety. Physical Examination: Vital Signs: She is 4 feet 11 inches, 135 pounds, BMI of 27.3 kg/sq m. She has temperature of 98.9 degrees Fahrenheit, pulse 86, respirations 24, blood pressure 147/92, O2 saturation 100%. General: She is a thin female, lying in bed, no acute distress with a protuberant abdomen. HEENT: Normocephalic, atraumatic. Anicteric. Pupils equal, round, and reactive to light. Anicteri c. Oropharynx clear. Neck: Supple. No masses. Respirations: Clear to auscultation bilaterally. Cardiac: Regular rate and rhythm. No gallops or rubs. Abdomen: Positive bowel sounds. Soft. She is distended with ascites. Positive fluid wa ve, dullness in the flanks. Generalized abdominal tenderness, but no peritoneal or Tariq signs. Extremities: No clubbing, cyanosis. She did have 1+ lower extremity edema, left greater than right. Neuro: Alert and oriented x3. Able to move all extremities well. Sensation intact to light touch. Laboratory Data: Patient has white count of 3.2 today, down from 6.0 yesterday. Hemoglobin is 6.1, which decreased to 5.7 by 8 o'clock this morning. Hematocrit 18.4, MCV of 84, platelet count of ____ yesterday, polys of 52%, lymphs 21%, monocytes 15%, eosinophils 2%. The patient has PT of 14. 7, INR of 1.34. Sodium 140, potassium 3.6, chloride 112, bicarb 26, BUN of 14, creatinine of 1.22, g lucose 186, calcium of 7.7, magnesium 1.9, total bilirubin 0.6, AST of 20, ALT of 19, alkaline phosph atase 83, total protein 5.5, albumin 3.2. UA was unremarkable. COVID-19 testing was negative. She had ultrasound of abdomen, which is pending at this time. Impression: 1.Gastrointestinal bleed with symptomatic hematochezia x4 months with 5-6 stools per day with Lactul ose therapy. 2.Anemia. Hemoglobin down to 5.7 on this admission. We need to investigate with esophagogastroduod enoscopy and colonoscopy . 3.End-stage liver disease cirrhosis secondary to hepatitis C. The patient states she got it with po ssibly from her 's IVD use by her history, though she has poor memory at this time. 4.Hepatic encephalopathy . 5.Ascites with generalized abdominal pain, mild. We will need to proceed with ultrasound-guided par acentesis and fluid studies. 6.History of cirrhosis secondary to hepatitis C, diabetes, thrombocytopenia, splenomegaly, ultrasoun d paracentesis, section, and knee surgery. Recommendation: 1.We will proceed with EGD, colonoscopy, serial H and H and transfuse p.r.n. Goal of hemoglobin 7-8 . 2.IV Protonix. 3.IV octreotide and ceftriaxone. 4.Ultrasound of abdomen, paracentesis, and fluid studies. 5.Outpatient hepatitis C therapy, possibly with her followup with [facility] per [facility] [employer] [facility]. 6.Check viral hepatitis panel. Hepatitis C RNA, PCR, HIV, and alpha fetoprotein level at this time. 7.Liver imaging is pending with ultrasound of abdomen done early today with report pending at this t vin. Assess for ascites. Also possible masses in liver with history of cirrhosis. PHILIP/CAROLINA Voice ID: [id number] Report ID: [id number]
[2023-01-27 16:06] LABS: Absolute Lymphocytes (CBC) 0.4 K/uL (0.7-4.9); Hematocrit 24.8 % (36.0-45.0); MCV 83.5 fL (80-100); MPV 8.1 fL (7.6-11.3); Platelets 40 thou/uL (152-406); RBC Red Blood Cell Count 2.97 M/uL (3.86-4.86)
--- NOTE | 2023-01-27 20:30 | P.PN ---
Subjective Date of Service: 01/27/23 Chief Complaint: Hematochezia, HCV cirrhosis, ascites Subjective: New changes (U/S abdomen not done because platelets below 50K, despite 1 packet of platelets transfusion (up to 40k from ~ 20k).) Review of Systems 10-point ROS is otherwise unremarkable General: Weakness, Malaise Gastrointestinal: Abdominal Pain, Distention (Ascites) Physical Examination - Vital Signs Temperature: 98.6 F Blood Pressure: 139/71 Pulse: 84 Respirations: 17 Pulse Ox (%): 97 - Physical Exam General: Alert, In no apparent distress, Oriented x3, Cooperative HEENT: Atraumatic, Normocephalic, PERRLA, EOMI Neck: Supple Respiratory: Diminished (in bases) Cardiovascular: Normal pulses Gastrointestinal: Distended (ascites) Neurological: Normal speech, Normal strength at 5/5 x4 extr - Studies Medications List Reviewed: Yes Assessment And Plan - Current Problems (Diagnosis) (1) Decompensated HCV cirrhosis Current Visit: Yes Status: Acute (2) Hematochezia Current Visit: Yes Status: Acute (3) Splenomegaly Current Visit: Yes Status: Acute (4) Ascites Current Visit: Yes Status: Acute (5) Thrombocytopenia Current Visit: No Status: Chronic - Plan REC: 1) re-attempt U/S guided paracentesis tomorrow with 2 units of Platelets 2) send fluid for studies (e.g. cell count, cultures, cytology, Tp/albumin, gram stain) 3) colonoscopy as inpatient or outpatient 4) await liver labs Physician Review: Patient Assessed, Agree with Above Assessment and Plan
[2023-01-27] MEDS: CEFTRIAXONE 1,000 MG in NA CHLORIDE 0.9% 50 ML IVPB SCH (20:38)
[2023-01-27] MEDS: MIDODRINE HCL 5 MG TABLET PO SCH (23:55)
[2023-01-27] MEDS ORDERED: ALBUMIN HUMAN 25% 200 ML IV ONE (23:56)
[2023-01-28] MEDS: ONDANSETRON 4 MG/2 ML VIAL IV PRN ×2 (00:28→08:41)
[2023-01-28] MEDS: FENTANYL CITR 100 MCG/2 ML IV PRN ×5 (01:37→23:14)
--- NOTE | 2023-01-28 03:10 | PN ---
Date of Progress Note: 01/27/2023 Chief Complaint: Anasarca and proteinuria. Subjective: The patient is a 57-year-old woman with history of hepatitis C complicated with liver ci rrhosis, recurrent paracenteses, portal hypertension, upper GI bleeding, diabetes mellitus. She was diagnosed back in 2017 with retinopathy and thrombocytopenia. She was hospitalized for anasarca and ascites. She was found to have elevated BUN and creatinine. She denies nonsteroidal antiinflammator y medication. Denies IV contrast exposure. The patient was treated with lisinopril and diuretics as outpatient. Review of Systems: Denies chest pain or palpitation. Physical Examination: Lungs: Diminished breath sounds at bases. Heart: S1, S2. Abdomen: Soft, benign. Extremities: Edema present. Impression And Plan: 1.Acute kidney injury. The patient was found to have elevated BUN and creatinine. The patient has anasarca and hepatorenal syndrome. Avoid nonsteroidal anti-inflammatory medication. The patient was taken off lisinopril due to worsening of the renal function. The patient is on Lasix. Plan is to m onitor blood pressure and continue diuretic as tolerated. The patient requires midodrine and she rip l need IV albumin after paracentesis. The patient is not a candidate for metformin due to complicate d history of liver cirrhosis. 2.Hypokalemia. Continue to supplement. 3.Anasarca secondary to hypoalbuminemia and fluid overload. Continue treatment with diuretics. Mon itor renal function closely. Adjust diuretic dose to prevent prerenal azotemia and worsening of acute kidney injury. EB/MODL Voice ID: [id number] Report ID: [id number]
[2023-01-28 05:27] LABS: Absolute Lymphocytes (CBC) 0.5 K/uL (0.7-4.9); Hematocrit 23.7 % (36.0-45.0); Lymphocytes % 15.5 % (15.3-44.8); MPV 8.4 fL (7.6-11.3); Platelets 49 thou/uL (152-406); RBC Red Blood Cell Count 2.82 M/uL (3.86-4.86)
[2023-01-28 05:52] LABS: Bilirubin Total 1.2 mg/dL (0.2-1.0); Magnesium 2.2 mg/dL (1.6-2.4); Phosphorus 2.6 mg/dL (2.5-4.9); Potassium 3.3 mEq/L (3.5-5.1)
[2023-01-28] MEDS: INSULIN -REGULAR HUMAN 50 UNIT/0.5 ML ML SQ SCH ×4 (07:30→21:00)
[2023-01-28] MEDS: MIDODRINE HCL 5 MG TABLET PO SCH ×3 (09:00→21:18)
--- NOTE | 2023-01-28 09:25 | RAD REPORT ---
EXAM DESCRIPTION: RAD - Abdomen 1 View (KUB) - 01/28/2023 8:39 am CLINICAL HISTORY: Abdomen pain FINDINGS: The bowel gas pattern is unremarkable. Right upper quadrant calcification compatible with gallstones.
[2023-01-28] MEDS: LACTULOSE 20 GM/30 ML UCUP PO SCH (09:56)
[2023-01-28] MEDS: PANTOPRAZOLE 40MG TABLET PO SCH ×2 (09:57→21:18)
[2023-01-28] MEDS: buPROPion HCL 100 MG TAB PO SCH ×2 (09:57→21:19)
[2023-01-28] MEDS: ATORVASTATIN 40 MG TAB PO SCH (09:57)
[2023-01-28] MEDS: hydrOXYzine HCL 25 MG TAB PO SCH ×3 (09:57→21:18)
[2023-01-28] MEDS: PROPRANOLOL HCL 10 MG TAB PO SCH ×2 (09:57→21:18)
[2023-01-28] MEDS ORDERED: POTASSIUM CL SA 10 MEQ TAB PO ONE (14:05)
--- NOTE | 2023-01-28 15:31 | PN ---
Date of Progress Note: 01/28/2023 Subjective: The patient was admitted to the hospital with anasarca secondary to liver failure. The patient planned for paracentesis tomorrow. The patient is status post EGD, blood transfusion. Physical Examination: Vital Signs: Blood pressure 134/87, pulse of 76, afebrile. The patient had good urine output of 230 0. The patient negative of 1 L. Chest: Clear to auscultation. Heart: S1, S2. Regular. Abdomen: Soft, nontender. Ascites. Extremities: Plus edema. Neurologic: Alert. No focality. Laboratory Data: Hemoglobin 7.8. Sodium 140, potassium 3.3, bicarb 29, BUN 10, creatinine 0.9, calc ium 8.7, phosphorus 2.6, magnesium 2.2, albumin is 4. Serum protein electrophoresis is still pending . P/C ratio . Serology is still pending. Current Medications: The patient on include ceftriaxone, Xifaxan, methocarbamol, midodrin e 7.5 t.i.d., propranolol, Zofran, fentanyl, KCl. Assessment And Plan: 1.Anasarca mostly secondary to cirrhosis of the liver, responds to current diuresis. I am going to place the patient on regular oral Lasix on a daily basis starting today and we will follow up the pat ient. Also, we will start the patient on Aldactone given the cirrhosis history and the hypokalemia, and I am going to go ahead and send for TSH and we will follow up the patient. 2.Hypertension. The patient was started on midodrine as hepatorenal. Continue propranolol. I am g oing to go ahead and decrease the midodrine to b.i.d., add Lasix and spironolactone, and we will foll ow up. 3.Hypokalemia, mostly secondary to secondary to the cirrhosis. Start the patient on spir onolactone and we will supplement. We will follow up. 4.Cirrhosis of the liver. Follow up GI. Plan for paracentesis. 5.Anemia, status post transfusion. We will follow up. HENNY Voice ID: [id number] Report ID: [id number]
[2023-01-28] MEDS: SPIRONOLACTONE 25 MG TABLET PO SCH (15:59)
[2023-01-28] MEDS: FUROSEMIDE 40 MG TABLET PO SCH (15:59)
--- NOTE | 2023-01-28 20:34 | P.PN ---
Subjective Date of Service: 01/28/23 Chief Complaint: Hematochezia, HCV cirrhosis, ascites No acute events overnight. She reports persistent abdominal distention/bloating. Plan for paracentesis today, but was rescheduled to tomorrow given persistent thrombocytopenia. Per IR, they recommended 2 additional units of platelets and plan to have paracentesis tomorrow around 08:00 AM. She denies any chest pain, palpitations, or shortness of breath. She denies any hematemesis, hematochezia, or melena. Review of Systems 10-point ROS is otherwise unremarkable Gastrointestinal: Distention Physical Examination - Vital Signs Temperature: 98.9 F Blood Pressure: 138/97 Pulse: 105 Respirations: 35 Pulse Ox (%): 99 - Studies Medications List Reviewed: Yes Assessment And Plan - Plan - Physical Exam General: Alert, In no apparent distress, Oriented x3 HEENT: Atraumatic, Mucous membr. moist/pink, Sclerae nonicteric Respiratory: Diminished, Crackles/rales (bibasilar) Cardiovascular: Regular rate/rhythm, No murmurs, Edema (1+ BLE) Gastrointestinal: Normal bowel sounds, Soft and benign, No tenderness, Distended Musculoskeletal: No clubbing Integumentary: No rashes Neurological: Normal speech, Normal affect # Ascites and Anasarca secondary to Acute Decompensated Liver Disease from Hepatitis C Cirrhosis # Pancytopenia secondary to Cirrhosis - Consulted Gastroenterology and spoke with Dr. Mathias - recommendations appreciated - Plan for paracentesis tomorrow once platelets > 50,000 - Transfuse for platelets < 50,000 - Chest x-ray = "patchy central airspace opacities more prominent on the left, suggesting multifocal airspace disease." - Suspect pulmonary edema from anasarca - US abdomen = "cirrhotic liver, splenomegaly, and ascites." # Acute Blood Loss Anemia suspect due to above # Hepatitis C Cirrhosis complicated by Esophageal Varices - Consulted Gastroenterology and spoke with Dr. Mathias - recommendations appreciated - S/P EGD on 01/26 = "grade I varices (small, barely visible varices) were present in the distal esophagus. The varices had 3 columns. Moderate diffuse chronic gastritis was seen in the fundus and in the body of the stomach. The gastritis had the following change: portal hypertensive. Moderate diffuse acute gastritis was seen in the antrum. There was no mucosal bleeding. Two cold forceps biopsies were taken from the body and antrum." - Type & Screen - Serial H&H - Hgb: 8.0 -> 6.1 -> 5.7 -> 9.3 -> 7.6 -> 8.1 -> 7.8 - Transfuse for Hgb < 7.0 - 2 large bore IVs - Continue home ceftriaxone, pantoprazole, rifaximin, lactulose, propanolol - Clear liquid diet - advance as tolerated # Hypokalemia # Hypomagnesemia - Replace as needed Jourdan Montalvo M.D.
[2023-01-28] MEDS: CEFTRIAXONE 1,000 MG in NA CHLORIDE 0.9% 50 ML IVPB SCH (21:24)
[2023-01-28] MEDS ORDERED: NA CHLORIDE 0.9% 100 ML ONE (22:34)
[2023-01-29] MEDS ORDERED: NA CHLORIDE 0.9% 50 ML ONE (05:15)
[2023-01-29 07:27] LABS: Absolute Lymphocytes (CBC) 0.6 K/uL (0.7-4.9); Hematocrit 23.8 % (36.0-45.0); Lymphocytes % 12.9 % (15.3-44.8); MCV 84.7 fL (80-100); MPV 7.9 fL (7.6-11.3); Platelets 60 thou/uL (152-406); RBC Red Blood Cell Count 2.82 M/uL (3.86-4.86)
[2023-01-29] MEDS: INSULIN -REGULAR HUMAN 50 UNIT/0.5 ML ML SQ SCH ×4 (07:30→21:00)
[2023-01-29 07:55] LABS: Albumin 3.7 g/dL (3.4-5.0); Bilirubin Direct 0.4 mg/dL (0-0.2); Bilirubin Total 1.2 mg/dL (0.2-1.0); Magnesium 1.8 mg/dL (1.6-2.4); Phosphorus 2.5 mg/dL (2.5-4.9); Thyroid Stimulating Hormone 4.68 uIU/mL (0.358-3.740)
[2023-01-29] MEDS: LACTULOSE 20 GM/30 ML UCUP PO SCH (09:41)
[2023-01-29] MEDS: MIDODRINE HCL 5 MG TABLET PO SCH ×2 (09:42→21:34)
[2023-01-29] MEDS: buPROPion HCL 100 MG TAB PO SCH ×2 (09:44→21:35)
[2023-01-29] MEDS: SPIRONOLACTONE 25 MG TABLET PO SCH (09:44)
[2023-01-29] MEDS: PANTOPRAZOLE 40MG TABLET PO SCH ×2 (09:44→21:36)
[2023-01-29] MEDS: FUROSEMIDE 40 MG TABLET PO SCH (09:44)
[2023-01-29] MEDS: PROPRANOLOL HCL 10 MG TAB PO SCH ×2 (09:45→21:35)
[2023-01-29] MEDS: hydrOXYzine HCL 25 MG TAB PO SCH ×3 (09:45→21:37)
[2023-01-29] MEDS: ATORVASTATIN 40 MG TAB PO SCH (09:52)
--- NOTE | 2023-01-29 10:02 | P.PN ---
Subjective Date of Service: 01/28/23 Chief Complaint: Hematochezia, HCV cirrhosis, ascites Subjective: New changes (Still no U/S guided paracentesis with plts 49K; did not meet 50K criteria.) Physical Examination - Vital Signs Temperature: 97.7 F Blood Pressure: 124/81 Pulse: 78 Respirations: 19 Pulse Ox (%): 97 - Studies Medications List Reviewed: Yes Assessment And Plan - Current Problems (Diagnosis) (1) Decompensated HCV cirrhosis Current Visit: Yes Status: Acute (2) Hematochezia Current Visit: Yes Status: Acute (3) Splenomegaly Current Visit: Yes Status: Acute (4) Ascites Current Visit: Yes Status: Acute (5) Thrombocytopenia Current Visit: No Status: Chronic - Plan REC: 1) re-attempt U/S guided paracentesis tomorrow with 2 units of Platelets 2) send fluid for studies (e.g. cell count, cultures, cytology, Tp/albumin, gram stain) 3) colonoscopy as inpatient or outpatient 4) await liver labs Physician Review: Patient Assessed, Agree with Above Assessment and Plan
--- NOTE | 2023-01-29 10:03 | P.PN ---
Subjective Date of Service: 01/29/23 Chief Complaint: Hematochezia, HCV cirrhosis, ascites Subjective: New changes (Plt count 60K today. Should have paracentesis today.) Review of Systems 10-point ROS is otherwise unremarkable General: Weakness (Improving) Physical Examination - Vital Signs Temperature: 97.7 F Blood Pressure: 124/81 Pulse: 78 Respirations: 19 Pulse Ox (%): 97 - Studies Medications List Reviewed: Yes Assessment And Plan - Current Problems (Diagnosis) (1) Decompensated HCV cirrhosis Current Visit: Yes Status: Acute (2) Hematochezia Current Visit: Yes Status: Acute (3) Splenomegaly Current Visit: Yes Status: Acute (4) Ascites Current Visit: Yes Status: Acute (5) Thrombocytopenia Current Visit: No Status: Chronic - Plan REC: 1) U/S guided paracentesis today 2) send fluid for studies (e.g. cell count, cultures, cytology, Tp/albumin, gram stain) 3) colonoscopy as inpatient or outpatient 4) await liver labs Physician Review: Patient Assessed, Agree with Above Assessment and Plan
[2023-01-29] MEDS ORDERED: POTASSIUM CL SA 10 MEQ TAB PO ONE (11:00)
[2023-01-29] MEDS ORDERED: MAGNESIUM SULFATE 1 gm IVPB 1 GM/100 ML BAG IV ONE (11:10)
[2023-01-29 11:13] LABS: Appearance VERY TURBID (CLEAR); Body Fluid Source PERITONEAL; Body Fluid WBC 178 /mm^3; Color of fluid Red (COLORLESS)
[2023-01-29] MEDS: HYDROCODONE/APAP 5/325 MG TAB PO PRN ×2 (14:08→21:36)
--- NOTE | 2023-01-29 14:28 | RAD REPORT ---
EXAM DESCRIPTION: US - Paracentesis Proc Guidance - 01/29/2023 9:02 am CLINICAL HISTORY: ASCITES COMPARISON: No comparisons FINDINGS: Informed consent was obtained and time-out was performed. Patient's abdomen was prepped and draped in the usual sterile fashion. 1% lidocaine was used for loca l anesthetic purposes. A small skin incision was made. A 5 fr paracentesis catheter was guided into the peroneal cavity unde r sonographic guidance. A small amount of serosanguineous fluid was sent for requested lab studies, 30 mL total. The drainage catheter was then removed. The patient tolerated the procedure well. IMPRESSION: Successful ultrasound-guided diagnostic paracentesis.
[2023-01-29 14:45] LABS: Hepatitis C Virus RNA (PCR)log <1.18 log IU/mL
[2023-01-29] MEDS ORDERED: ALBUMIN HUMAN 25% 100 ML IV ONE (15:10)
--- NOTE | 2023-01-29 15:48 | PN ---
Date of Progress Note: 01/29/2023 Subjective: The patient was admitted to the hospital with cirrhosis, anasarca. The patient status p ost paracentesis yesterday. Tolerated the procedure. Removal of 2 L. The patient was started on Al dactone. Continued on the Lasix. Objective: Vital Signs: Blood pressure stays stable, blood pressure 124/80, pulse of 78, afebrile. Chest: Clear to auscultation. Heart: S1, S2, regular. Abdomen: Ascites. Extremities: No edema. Neurologic: Alert, no focality. Lab: Hemoglobin 7.8. Sodium 139, potassium 3, bicarb 29, BUN 11, creatinine 1, GFR of 61. Calcium of 9, magnesium 1.8, phosphorus 2.5. Current Medications: The patient on include: 1. . 2.Ceftriaxone. 3.Rifaximin. 4.Methocarbamol. 5.Midodrine 7.5 b.i.d. 6.Inderal. 7.Spironolactone. 8.Lasix 40. Assessment And Plan: 1.Acute kidney injury secondary to hepatorenal, recovered. I am going to continue current diuresis. 2.Anasarca secondary to hepatorenal. Hypothyroidism has been ruled out. No significant proteinuria . I am going to continue diuresis. 3.Hypokalemia, hypomagnesemia. We will supplement. Continue spironolactone. 4.Cirrhosis with iron deficiency anemia. As by primary. CHRISTINA/CAROLINA Voice ID: [id number] Report ID: [id number]
--- NOTE | 2023-01-29 16:34 | RAD REPORT ---
EXAM DESCRIPTION: [place] Single View01/29/2023 4:21 pm CLINICAL HISTORY: Chest pain COMPARISON: January 26, 2023 FINDINGS: Mild worsening in patchy right lung opacities. No significant change in mild left lung opacities Heart size is normal IMPRESSION: Mild worsening in right and no significant change in mild left lung opacities probably p neumonia or pulmonary edema
--- NOTE | 2023-01-29 17:22 | P.PN ---
Subjective Date of Service: 01/29/23 Chief Complaint: Hematochezia, HCV cirrhosis, ascites She underwent diagnostic paracentesis this morning without any issues. There is no evidence of SBP per the peritoneal fluid studies. She reports that her symptoms have improved; however, chest x-ray looks slightly worse today. Plan to obtain CT chest. She denies any chest pain, palpitations, or shortness of breath. She denies any hematemesis, hematochezia, or melena. Review of Systems 10-point ROS is otherwise unremarkable Gastrointestinal: Abdominal Pain Physical Examination - Vital Signs Temperature: 97.9 F Blood Pressure: 119/56 Pulse: 80 Respirations: 19 Pulse Ox (%): 97 - Studies Medications List Reviewed: Yes Assessment And Plan - Plan - Physical Exam General: Alert, In no apparent distress, Oriented x3 HEENT: Atraumatic, Mucous membr. moist/pink, Sclerae nonicteric Respiratory: Diminished, Crackles/rales (faint bibasilar) Cardiovascular: Regular rate/rhythm, No murmurs, Edema (1+ BLE) Gastrointestinal: Normal bowel sounds, Soft and benign, No tenderness, Distended Musculoskeletal: No clubbing Integumentary: No rashes Neurological: Normal speech, Normal affect # Ascites and Anasarca secondary to Acute Decompensated Liver Disease from Hepatitis C Cirrhosis # Pancytopenia secondary to Cirrhosis - Consulted Gastroenterology and spoke with Dr. Mathias - recommendations appreciated - S/P paracentesis earlier today, without any issues - Post-paracentesis albumin ordered per GI recs - Chest x-ray = "patchy central airspace opacities more prominent on the left, suggesting multifocal airspace disease." - Repeat chest x-ray = "mild worsening in right and no significant change in mild left lung opacities probably pneumonia or pulmonary edema." - CT chest requested - Suspect pulmonary edema from anasarca - US abdomen = "cirrhotic liver, splenomegaly, and ascites." # Acute Blood Loss Anemia suspect due to above # Hepatitis C Cirrhosis complicated by Esophageal Varices - Consulted Gastroenterology and spoke with Dr. Mathias - recommendations appreciated - S/P EGD on 01/26 = "grade I varices (small, barely visible varices) were present in the distal esophagus. The varices had 3 columns. Moderate diffuse chronic gastritis was seen in the fundus and in the body of the stomach. The gastritis had the following change: portal hypertensive. Moderate diffuse acute gastritis was seen in the antrum. There was no mucosal bleeding. Two cold forceps biopsies were taken from the body and antrum." - Type & Screen - Serial H&H - Hgb: 8.0 -> 6.1 -> 5.7 -> 9.3 -> 7.6 -> 8.1 -> 7.8 -> 7.8 - Transfuse for Hgb < 7.0 - 2 large bore IVs - Continue home ceftriaxone, pantoprazole, rifaximin, lactulose, propanolol # Hypokalemia # Hypomagnesemia - Replace as needed Jourdan Montalvo M.D.
[2023-01-29 17:45] LABS: Hepatitis C Virus RNA (PCR)log <1.18 log IU/mL
--- NOTE | 2023-01-29 19:42 | RAD REPORT ---
EXAM DESCRIPTION: CT - Thorax Wo Con - 01/29/2023 6:50 pm CLINICAL HISTORY: sob COMPARISON: none TECHNIQUE: Computed axial tomography of the chest was obtained. Contrast was not requested. All CT scans are performed using dose optimization technique as appropriate and may include automated exposure control or mA/KV adjustment according to patient size. FINDINGS: The evaluation of mediastinum, tom and vessels is limited secondary to lack of IV contras t administration. Moderate right exzo-sv-hjgeiocl left patchy predominantly ground-glass opacities are present within t he lungs Mild mediastinal lymphadenopathy Small pleural effusions. No pericardial effusion. Mild to moderate compression fractures involve several thoracic vertebral bodies. Marked compression fracture L1 vertebral body with retropulsion of fracture fragment into the spinal canal. Cirrhosis with small to moderate amount of ascites. Cholelithiasis IMPRESSION: Moderate right and cuoy-dg-duqjfbkn left patchy predominantly ground-glass opacities wit hin the lungs may indicate pneumonia or pneumonitis Multiple ybjo-ka-kxhkzcxw compression fractures involving thoracic vertebral bodies. Most superior ac haritha to subacute Marked compression fracture L1 vertebral body with retropulsion of fracture fragment into the spinal canal
[2023-01-29] MEDS: CEFTRIAXONE 1,000 MG in NA CHLORIDE 0.9% 50 ML IVPB SCH (21:39)
[2023-01-30 04:15] LABS: Albumin 3.8 g/dL (3.4-5.0); Phosphorus 2.7 mg/dL (2.5-4.9); Potassium 3.2 mEq/L (3.5-5.1)
[2023-01-30] MEDS: INSULIN -REGULAR HUMAN 50 UNIT/0.5 ML ML SQ SCH ×4 (07:30→21:00)
--- NOTE | 2023-01-30 08:16 | RAD REPORT ---
EXAM DESCRIPTION: [place] Single View01/30/2023 7:30 am CLINICAL HISTORY: hypoxia COMPARISON: January 29, 2023 FINDINGS: Mild worsening in moderate bilateral alveolar lung opacities. Heart is normal size IMPRESSION: Mild worsening in moderate bilateral alveolar lung opacities which may represent pneumon ia or pulmonary edema
[2023-01-30] MEDS ORDERED: POTASSIUM CL SA 10 MEQ TAB PO ONE (09:00)
[2023-01-30] MEDS: MIDODRINE HCL 5 MG TABLET PO SCH ×2 (09:00→21:00)
[2023-01-30 09:48] LABS: Hematocrit 24.2 % (36.0-45.0)
[2023-01-30] MEDS: FUROSEMIDE 40 MG TABLET PO SCH (09:52)
[2023-01-30] MEDS: hydrOXYzine HCL 25 MG TAB PO SCH ×3 (09:52→21:37)
[2023-01-30] MEDS: ATORVASTATIN 40 MG TAB PO SCH (09:53)
[2023-01-30] MEDS: LACTULOSE 20 GM/30 ML UCUP PO SCH (09:53)
[2023-01-30] MEDS: PROPRANOLOL HCL 10 MG TAB PO SCH ×2 (09:53→21:36)
[2023-01-30] MEDS: SPIRONOLACTONE 25 MG TABLET PO SCH (09:53)
[2023-01-30] MEDS: PANTOPRAZOLE 40MG TABLET PO SCH ×2 (09:53→21:37)
[2023-01-30] MEDS: AZITHROMYCIN IV 500 MG in NA CHLORIDE 0.9% 250 ML IVPB SCH (09:54)
[2023-01-30] MEDS: HYDROCODONE/APAP 5/325 MG TAB PO PRN ×2 (10:03→22:04)
[2023-01-30] MEDS: buPROPion HCL 100 MG TAB PO SCH ×2 (10:29→21:35)
[2023-01-30] MEDS: ONDANSETRON 4 MG/2 ML VIAL IV PRN (10:54)
[2023-01-30 14:55] LABS: Albumin, (SPE) 3.2 g/dL (3.8-4.8); Alpha-1-Globulins 0.3 g/dL (0.2-0.3); Alpha-2-Globulins 0.6 g/dL (0.5-0.9); INTERPRETATION REPORT
[2023-01-30] MEDS ORDERED: POTASSIUM 25 MEQ EFFERV TAB PO ONE (16:20)
--- NOTE | 2023-01-30 17:00 | P.PN ---
Subjective Date of Service: 01/30/23 Chief Complaint: Hematochezia, HCV cirrhosis, ascites No new changes since yesterday. Her CXR this morning revealed, "mild worsening in moderate bilateral alveolar lung opacities which may represent pneumonia or pulmonary edema." Clinically, she reports an intermittent dry cough, but is not complaining of any shortness of breath, dyspnea, wheezing, cough, chest pain, or palpitations. Review of Systems 10-point ROS is otherwise unremarkable Respiratory: Cough Physical Examination - Vital Signs Temperature: 98.3 F Blood Pressure: 128/69 Pulse: 76 Respirations: 16 Pulse Ox (%): 91 - Studies Medications List Reviewed: Yes Assessment And Plan - Plan - Physical Exam General: Alert, In no apparent distress, Oriented x3 HEENT: Atraumatic, Mucous membr. moist/pink, Sclerae nonicteric Respiratory: Diminished, Crackles/rales (faint bibasilar) Cardiovascular: Regular rate/rhythm, No murmurs, Edema (1+ BLE) Gastrointestinal: Normal bowel sounds, Soft and benign, No tenderness, Distended Musculoskeletal: No clubbing Integumentary: No rashes Neurological: Normal speech, Normal affect # Ascites and Anasarca secondary to Acute Decompensated Liver Disease from Hepatitis C Cirrhosis # Pancytopenia secondary to Cirrhosis - Consulted Gastroenterology and spoke with Dr. Mathias - recommendations appreciated - S/P paracentesis earlier yesterday without any issues - Chest x-ray = "patchy central airspace opacities more prominent on the left, suggesting multifocal airspace disease." - Repeat chest x-ray = "mild worsening in right and no significant change in mild left lung opacities probably pneumonia or pulmonary edema." - CT chest = "moderate right and ryzk-by-gkkalmgh left patchy predominantly ground-glass opacities within the lungs may indicate pneumonia or pneumonitis. Multiple ezob-ug-pnbodleb compression fractures involving thoracic vertebral bodies. Most superior acute to subacute. Marked compression fracture L1 vertebral body with retropulsion of fracture fragment into the spinal canal" - Procalcitonin requested and broadened antibiotics to azithromycin + ceftriaxone - Suspect pulmonary edema from anasarca - US abdomen = "cirrhotic liver, splenomegaly, and ascites." # Acute Blood Loss Anemia suspect due to above # Hepatitis C Cirrhosis complicated by Esophageal Varices - Consulted Gastroenterology and spoke with Dr. Mathias - recommendations appreciated - S/P EGD on 01/26 = "grade I varices (small, barely visible varices) were present in the distal esophagus. The varices had 3 columns. Moderate diffuse chronic gastritis was seen in the fundus and in the body of the stomach. The gastritis had the following change: portal hypertensive. Moderate diffuse acute gastritis was seen in the antrum. There was no mucosal bleeding. Two cold forceps biopsies were taken from the body and antrum." - Type & Screen - Serial H&H - Hgb: 8.0 -> 6.1 -> 5.7 -> 9.3 -> 7.6 -> 8.1 -> 7.8 -> 7.8 - Transfuse for Hgb < 7.0 - 2 large bore IVs - Continue ceftriaxone, pantoprazole, rifaximin, lactulose, propanolol # Hypokalemia # Hypomagnesemia - Replace as needed Jourdan Montalvo M.D.
[2023-01-30] MEDS ORDERED: FUROSEMIDE 40 MG/4 ML VIAL IV ONE (17:30)
--- NOTE | 2023-01-30 21:37 | PN ---
Date of Progress Note: 01/30/2023 Chief Complaint: Acute kidney injury, hepatorenal syndrome, anasarca. Review of Systems: Patient denies chest pain, palpitation. Physical Examination: Lungs: Clear to auscultation bilaterally. Heart: S1, S2. Abdomen: Soft. Extremities: No edema. Impression And Plan: 1.Acute kidney injury secondary to hepatorenal syndrome. Patient improved. Patient is to continue current diuretics. 2.Anasarca secondary to liver cirrhosis, hepatorenal syndrome. Hypothyroidism was ruled out. No si gnificant proteinuria. Continue diuretic. Monitor renal function. 3.Hypokalemia, hypomagnesemia. Continue to supplement. Continue spironolactone. 4.Cirrhosis, as by Primary Team. LINDA/CAROLINA Voice ID: [id number] Report ID: [id number]
[2023-01-30] MEDS: CEFTRIAXONE 1,000 MG in NA CHLORIDE 0.9% 50 ML IVPB SCH (21:38)
[2023-01-31] MEDS ORDERED: POTASSIUM CL SA 10 MEQ TAB PO ONE (00:48)
[2023-01-31 06:12] LABS: Absolute Lymphocytes (CBC) 0.4 K/uL (0.7-4.9); Hematocrit 23.4 % (36.0-45.0); Lymphocytes % 12.5 % (15.3-44.8); MCV 85.4 fL (80-100); MPV 8.7 fL (7.6-11.3); Platelets 33 thou/uL (152-406); RBC Red Blood Cell Count 2.74 M/uL (3.86-4.86)
[2023-01-31 06:26] LABS: Albumin 3.6 g/dL (3.4-5.0); Magnesium 1.7 mg/dL (1.6-2.4); Phosphorus 2.2 mg/dL (2.5-4.9); Potassium 3.3 mEq/L (3.5-5.1)
[2023-01-31] MEDS: INSULIN -REGULAR HUMAN 50 UNIT/0.5 ML ML SQ SCH ×4 (07:30→20:27)
[2023-01-31 09:07] LABS: White Blood Cell Scan OK (OK)
[2023-01-31 09:08] LABS: Anisocytosis 1+; Blood Morphology Comment NOTED (NOT SEEN); Platelet Estimate DECR; Polychromasia 1+
--- NOTE | 2023-01-31 09:28 | RAD REPORT ---
EXAM DESCRIPTION: [place] Single View01/31/2023 8:45 am CLINICAL HISTORY: Hypoxia, airspace opacities on recent radiographs. Follow-up COMPARISON: Chest Single View dated 01/30/2023; Chest Single View dated 01/29/2023; Abdomen 1 View ([facility]) dated 01/28/2023; Chest Single View dated 01/26/2023 TECHNIQUE: Portable AP view of the chest. FINDINGS: Confluent central predominant airspace opacities persist. More peripheral interstitial opa cification has since improved. No pneumothorax or effusion. The cardiomediastinal contours are unrem arkable. IMPRESSION: Partial improvement as above, findings favor pulmonary edema. Superimposed pneumonia wou ld be difficult to exclude.
[2023-01-31] MEDS: ATORVASTATIN 40 MG TAB PO SCH (09:29)
[2023-01-31] MEDS: buPROPion HCL 100 MG TAB PO SCH ×2 (09:29→20:27)
[2023-01-31] MEDS: FUROSEMIDE 40 MG TABLET PO SCH (09:29)
[2023-01-31] MEDS: PANTOPRAZOLE 40MG TABLET PO SCH ×2 (09:29→20:26)
[2023-01-31] MEDS: PROPRANOLOL HCL 10 MG TAB PO SCH ×2 (09:29→20:23)
[2023-01-31] MEDS: SPIRONOLACTONE 25 MG TABLET PO SCH ×3 (09:29→20:26)
[2023-01-31] MEDS: LACTULOSE 20 GM/30 ML UCUP PO SCH (09:30)
[2023-01-31] MEDS: hydrOXYzine HCL 25 MG TAB PO SCH ×3 (09:30→20:26)
[2023-01-31] MEDS: AZITHROMYCIN IV 500 MG in NA CHLORIDE 0.9% 250 ML IVPB SCH (09:30)
[2023-01-31] MEDS: MIDODRINE HCL 5 MG TABLET PO SCH ×2 (09:31→21:00)
[2023-01-31] MEDS: ONDANSETRON 4 MG/2 ML VIAL IV PRN (11:18)
--- NOTE | 2023-01-31 14:01 | P.PN ---
Subjective Date of Service: 01/31/23 Chief Complaint: Hematochezia, HCV cirrhosis, ascites Subjective: Other (no urinary complaints) Physical Examination - Vital Signs Temperature: 98.8 F Blood Pressure: 136/72 Pulse: 80 Respirations: 16 Pulse Ox (%): 92 - Physical Exam General: Other (chronically ill-appearing) HEENT: Atraumatic, Normocephalic Neck: Supple Respiratory: Other (symmetric chest expansion) Cardiovascular: No rubs, No murmurs Gastrointestinal: Soft and benign, No rebound Musculoskeletal: No clubbing Integumentary: No warmth Neurological: Normal tone Urinary: Other (no bladder distention) External genitalia: Deferred Rectal: Deferred - Studies Medications List Reviewed: Yes Assessment And Plan - Plan 1. Acute kidney injury secondary to hepatorenal syndrome. Cont lasix/dave/midodrine. 2. Anasarca secondary to liver cirrhosis. Increase dave to 50 mg po bid. Lasix 20 mg po bid. Cont midodrine same dose. Strict low Na diet < 2g/d. 3. Hypokalemia. Increase [place] dose as above. 4. Liver cirrhosis, HCV infection. Per other services. Physician Review: Patient Assessed, Agree with Above Assessment and Plan
[2023-01-31 16:38] LABS: Alpha Fetoprotein-Tumor Marker 2.6 ng/mL (<6.1)
[2023-01-31] MEDS: FUROSEMIDE 20 MG TABLET PO SCH (16:42)
--- NOTE | 2023-01-31 18:55 | P.PN ---
Subjective Date of Service: 01/31/23 Chief Complaint: Hematochezia, HCV cirrhosis, ascites She reports that she feels well, but does have shortness of breath with exertion. She remains on 2-3 L of oxygenshe does not use oxygen at home. Chest x-ray seems to be improving with furosemide. Plan to start PO furosemide today and attempt to wean off of oxygen. She denies any wheezing, cough, chest pain, or palpitations. Review of Systems 10-point ROS is otherwise unremarkable Respiratory: SOB with Excertion Physical Examination - Vital Signs Temperature: 98.2 F Blood Pressure: 135/66 Pulse: 82 Respirations: 16 Pulse Ox (%): 94 - Studies Medications List Reviewed: Yes Assessment And Plan - Plan - Physical Exam General: Alert, In no apparent distress, Oriented x3 HEENT: Atraumatic, Mucous membr. moist/pink, Sclerae nonicteric Respiratory: Diminished, Crackles/rales (faint bibasilar) Cardiovascular: Regular rate/rhythm, No murmurs, Edema (1+ BLE) Gastrointestinal: Normal bowel sounds, Soft and benign, No tenderness, Distended Musculoskeletal: No clubbing Integumentary: No rashes Neurological: Normal speech, Normal affect # Ascites and Anasarca secondary to Acute Decompensated Liver Disease from Hepat itis C Cirrhosis # Pancytopenia secondary to Cirrhosis - Consulted Gastroenterology and spoke with Dr. Mathias - recommendations appreciated - S/P paracentesis earlier yesterday without any issues - Chest x-ray = "patchy central airspace opacities more prominent on the left, suggesting multifocal airspace disease." - Repeat chest x-ray = "mild worsening in right and no significant change in mild left lung opacities probably pneumonia or pulmonary edema." - CT chest = "moderate right and [id number] left patchy predominantly ground-glass opacities within the lungs may indicate pneumonia or pneumonitis. Multiple [id number] compression fractures involving thoracic vertebral bodies. Most superior acute to subacute. Marked compression fracture L1 vertebral body with retropulsion of fracture fragment into the spinal canal" - Procalcitonin = 0.13, continue azithromycin + ceftriaxone - Suspect pulmonary edema from anasarca - Started furosemide - US abdomen = "cirrhotic liver, splenomegaly, and ascites." # Acute Blood Loss Anemia suspect due to above # Hepatitis C Cirrhosis complicated by Esophageal Varices - Consulted Gastroenterology and spoke with Dr. Mathias - recommendations appreciated - S/P EGD on 01/26 = "grade I varices (small, barely visible varices) were present in the distal esophagus. The varices had 3 columns. Moderate diffuse chronic gastritis was seen in the fundus and in the body of the stomach. The gastritis had the following change: portal hypertensive. Moderate diffuse acute gastritis was seen in the antrum. There was no mucosal bleeding. Two cold forceps biopsies were taken from the body and antrum." - Serial H&H - Hgb: 8.0 -> 6.1 -> 5.7 -> 9.3 -> 7.6 -> 8.1 -> 7.8 -> 7.8 -> 8.0 -> 7.7 - Transfuse for Hgb < 7.0 - 2 large bore IVs - Continue ceftriaxone, pantoprazole, rifaximin, lactulose, propanolol # Hypokalemia # Hypomagnesemia - Replace as needed Jourdan Montalvo M.D.
[2023-01-31] MEDS: CEFTRIAXONE 1,000 MG in NA CHLORIDE 0.9% 50 ML IVPB SCH (20:28)
[2023-01-31] MEDS ORDERED: POTASSIUM 25 MEQ EFFERV TAB PO ONE (21:00)
[2023-02-01 06:51] LABS: Magnesium 1.7 mg/dL (1.6-2.4); Phosphorus 1.6 mg/dL (2.5-4.9)
[2023-02-01] MEDS: INSULIN -REGULAR HUMAN 50 UNIT/0.5 ML ML SQ SCH ×3 (07:30→16:04)
[2023-02-01] MEDS: LACTULOSE 20 GM/30 ML UCUP PO SCH (08:35)
[2023-02-01] MEDS: AZITHROMYCIN IV 500 MG in NA CHLORIDE 0.9% 250 ML IVPB SCH (08:35)
[2023-02-01] MEDS: ATORVASTATIN 40 MG TAB PO SCH (08:36)
[2023-02-01] MEDS: SPIRONOLACTONE 25 MG TABLET PO SCH (08:36)
[2023-02-01] MEDS: hydrOXYzine HCL 25 MG TAB PO SCH ×2 (08:36→13:10)
[2023-02-01] MEDS: buPROPion HCL 100 MG TAB PO SCH (08:36)
[2023-02-01] MEDS: PANTOPRAZOLE 40MG TABLET PO SCH (08:37)
[2023-02-01] MEDS: MIDODRINE HCL 5 MG TABLET PO SCH (08:37)
[2023-02-01] MEDS: FUROSEMIDE 20 MG TABLET PO SCH ×2 (08:37→16:07)
[2023-02-01] MEDS: PROPRANOLOL HCL 10 MG TAB PO SCH (08:41)
[2023-02-01 08:52] VITALS: O2SAT 95
[2023-02-01] MEDS ORDERED: Rifaximin 550 MG Tab PO SCH (11:00)
--- NOTE | 2023-02-01 14:51 | P.PN ---
Subjective Date of Service: 02/01/23 Chief Complaint: Hematochezia, HCV cirrhosis, ascites Subjective: No new changes Physical Examination - Vital Signs Temperature: 98.1 F Blood Pressure: 137/76 Pulse: 74 Respirations: 14 Pulse Ox (%): 95 - Physical Exam General: Other (appears as her stated age) HEENT: Atraumatic, Normocephalic Neck: Supple Respiratory: Other (symmetric chest expansion) Cardiovascular: No rubs, No murmurs Gastrointestinal: Soft and benign, No guarding, Distended Musculoskeletal: No clubbing Integumentary: No warmth Neurological: Normal speech, Normal tone Urinary: Other (no bladder distention) External genitalia: Deferred Rectal: Deferred - Studies Medications List Reviewed: Yes Assessment And Plan - Plan 1. Acute kidney injury secondary to hepatorenal syndrome. Cont lasix/dave/midodrine. 2. Anasarca secondary to liver cirrhosis. Cont dave 50 mg po bid. Cont Lasix 20 mg po bid. Cont midodrine same dose. Strict low Na diet < 2g/d. 3. Hypokalemia. Increased Dave dose as above. 4. Liver cirrhosis, HCV infection. Per other services. Physician Review: Patient Assessed, Agree with Above Assessment and Plan
[2023-02-01] MEDS ORDERED: POTASS/SODIUM PHOSPHATE 1 PKT POWD.PACK PO ONE (15:00)
--- NOTE | 2023-02-01 18:05 | P.DS ---
Admission Date: 01/25/23 Discharge Date: 02/01/23 Disposition: ROUTINE DISCHARGE Discharge Condition: GOOD Reason for Admission: Hematochezia, HCV cirrhosis, ascites Consultations: 1. Gastroenterology 2. Nephrology Procedures: - 01/26/2023 - Esophagogastroduodenoscopy - 01/29/2023 - Paracentesis Hospital Course: DIAGNOSES: # Ascites and Anasarca secondary to Acute Decompensated Liver Disease from Hepatitis C Cirrhosis # Pancytopenia secondary to Cirrhosis # Acute Blood Loss Anemia suspect due to above # Hepatitis C Cirrhosis complicated by Esophageal Varices # Hypokalemia # Hypomagnesemia HOSPITAL COURSE: Ms. Cheyenne Mcgill is a 57 year old female with a past medical history significant for hepatitis C cirrhosis who was [facility] to [facility] 01/[facility]/2023 for anasarca and ascites. She was admitted to the Medicine service. Upon further evaluation, she was found to have acute decompensated liver disease as well as acute blood loss anemia. Her abdominal ultrasound revealed, "cirrhotic liver, splenomegaly, and ascites." Gastroenterology was consulted and she was evaluated by Dr. Mathias. On 01/26/2023, she underwent an esophagogastroduodenoscopy, which revealed, "grade I varices (small, barely visible varices) were present in the distal esophagus. The varices had 3 columns. Moderate diffuse chronic gastritis was seen in the fundus and in the body of the stomach. The gastritis had the following change: portal hypertensive. Moderate diffuse acute gastritis was seen in the antrum. There was no mucosal bleeding. Two cold forceps biopsies were taken from the body and antrum." She was given two units of pRBCs during her stay, with improvement in her hemoglobin levels. In regards to her anasarca, her chest x- ray was concerning for, "patchy central airspace opacities more prominent on the left, suggesting multifocal airspace disease." She was treated with diuretics and, over the course of her hospitalization, her symptoms improved significantly. For diagnostic purposes, a paracentesis was performed on 01/29/2023, and did not reveal evidence of SBP. She was able to wean off of oxy gen and, today, she ambulated around the nursing station without any issues. She states that she feels well and she would like to be discharged home. Gastroenterology has cleared her for discharge home from their standpoint. Of note, radiology indicated that it would be difficult to exclude pneumonia based on her chest x-ray findings. Clinically, it would seem most likely that her x-ray findings were secondary to pulmonary edema rather than pneumonia. Nevertheless, she did complete a 7-day course of antibiotics during her hospitalization. On 02/01/2023, she was seen on rounds and deemed medically stable for discharge. She was discharged with instructions to schedule follow-up appointments with her PCP (Dr. Gonzalez) and with Gastroenterology (Dr. Mathisa). She was provided prescriptions for furosemide, spironolactone, and midodrine. She and her mother were given the opportunity to ask questions and reported no further questions. Furthermore, all questions were answered to the best of my ability. A copy of this discharge summary will be sent to the above providers to facilitate continuity of care. Today, I personally spent 25 minutes on her case, of which greater than 50% of the time was spent in patient education, counseling, and coordination of care as described above. - Physical Exam General: Alert, In no apparent distress, Oriented x3 HEENT: Atraumatic, Mucous membr. moist/pink, Sclerae nonicteric Respiratory: Diminished, but clear to auscultation bilaterally Cardiovascular: Regular rate/rhythm, No murmurs, Edema (trace BLE) Gastrointestinal: Normal bowel sounds, Soft and benign, No tenderness, Minimally distended Musculoskeletal: No clubbing Integumentary: No rashes Neurological: Normal speech, Normal affect Vital Signs/Physical Exam: Temp Pulse Resp BP Pulse Ox 98.8 F 84 16 153/77 H 93 02/01/23 16:00 02/01/23 16:00 02/01/23 16:00 02/01/23 16:00 02/01/23 16:00 Laboratory Data at Discharge: WBC 3.10 thou/uL (4.3-10.9) L 01/31/23 06:00 Hgb 7.7 g/dL (12.0-15.0) L 01/31/23 06:00 Hct 23.4 % (36.0-45.0) L 01/31/23 06:00 Plt Count 33 thou/uL (152-406) L 01/31/23 06:00 PT 15.2 SECONDS (9.5-12.5) H 01/27/23 07:19 INR 1.38 01/27/23 07:19 APTT 32.3 SECONDS (24.3-36.9) 01/27/23 07:19 Sodium 140 mEq/L (136-145) 02/01/23 02:57 Potassium 4.0 mEq/L (3.5-5.1) D 02/01/23 02:57 BUN 12 mg/dL (7-18) 02/01/23 02:57 Creatinine 0.98 mg/dL (0.55-1.02) 02/01/23 02:57 Glucose 130 mg/dL (74-106) H 02/01/23 02:57 Uric Acid 3.2 mg/dL (2.6-6.0) 01/27/23 07:19 Phosphorus 1.6 mg/dL (2.5-4.9) L 02/01/23 02:57 Magnesium 1.7 mg/dL (1.6-2.4) 02/01/23 02:57 Total Bilirubin 1.2 mg/dL (0.2-1.0) H 01/29/23 07:18 AST 20 U/L (15-37) 01/29/23 07:18 ALT 22 U/L (13-56) 01/29/23 07:18 Alkaline Phosphatase 70 U/L (45-117) 01/29/23 07:18 Home Medications: Gabapentin [Neurontin] 300 mg PO TID 09/28/14 Rifaximin [Xifaxan] 1 tab PO BID 09/28/14 Cholecalciferol (Vitamin D3) [Vitamin D3] 2,000 unit PO DAILY 01/26/23 Diphenhydramine [Benadryl*] 25 mg PO Q6HP PRN 01/26/23 Fluoxetine HCl [Prozac] 40 mg PO DAILY 01/26/23 Lactulose 10 gm PO DAILY 01/26/23 Magnesium Oxide [Mag 0X*] 400 mg PO DAILY 01/26/23 Metformin HCl 1,000 mg PO BID 01/26/23 Pantoprazole [Protonix Tab*] 40 mg PO BID 01/26/23 Propranolol HCl 20 mg PO BID 01/26/23 Simvastatin 80 mg PO DAILY 01/26/23 Tramadol HCl [Ultram] 50 mg PO Q4HP PRN 01/26/23 buPROPion HCL [Wellbutrin*] 100 mg PO BID 01/26/23 hydrOXYzine HCL [Atarax*] 25 mg PO TID 01/26/23 methocarbamoL [Robaxin*] 750 mg PO BIDP PRN 01/26/23 Furosemide [Lasix*] 20 mg PO BIDL #60 tab 02/01/23 Midodrine HCl [Proamatine*] 7.5 mg PO BID #90 tab 02/01/23 Spironolactone [Aldactone*] 50 mg PO BID #120 tab 02/01/23 New Medications: Spironolactone [Aldactone*] 50 mg PO BID #120 tab Furosemide [Lasix*] 20 mg PO BIDL #60 tab Midodrine HCl [Proamatine*] 7.5 mg PO BID #90 tab Physician Discharge Instructions: 1. Please call and schedule a follow-up appointment with your PCP (Dr. Gonzalez) in 3-5 days - Please have your PCP repeat your chest x-ray in 2 weeks to make sure the fluid on your lungs and possible pneumonia has resolved - Your CT scan showed old fractures in your back, a herniated disc, and gallstones. Please discuss with your PCP for further evaluation. - Your rheumatoid factor test returned positive. Please have your PCP provide you with a referral to a payment rep for further testing. - Your thyroid tests were slightly abnormal. Please have your PCP repeat your thyroid bloodwork. 2. Please call and schedule a follow-up appointment with Gastroenterology (Dr. Mathias) in 5-7 days - Please have him follow-up on your low blood counts and bleeding Medication changes: 1. Please take furosemide (Lasix) 20 mg two times per day 2. Please take spironolactone 50 mg two times per day 3. Please take midodrine 7.5 mg two times per day You have been given a 1 month prescription for these medications. Please follow- up with your PCP for medication refills/adjustments Diet: AHA Activity: Ad ilda Followup: Kal Mathias MD [ASSOCIATE-ACTIVE - CAN ADMIT] - Phylicia Gonzalez MD [Primary Care Provider] - Time spent managing pt's care (in minutes): 25
[2023-02-02 06:10] VITALS: BP 137/76; TEMP 98.1
[2023-02-02 20:10] LABS: GLUCOSE, PERITONEAL FLUID 105 mg/dL; TOTAL PROTEIN,PERITONEAL FLUID <3.0 g/dL
== END 2023-02-01 18:47 | disposition home or self-care (01) | DRG 433 ==
LOC: ER 20:27 → 2ND 23:44 → 3RD-ICU 01-26 09:19 → 2ND 01-28 21:36
PROVIDERS: ADMIT Hospitalist; ATTEND Internal Medicine
PROC: 0DB78ZX Excision of Stomach, Pylorus, Via Natural or Artificial Opening Endoscopic, Diagnostic (ICD-10-PCS; 2023-01-26)
PROC: 30233R1 Transfusion of Nonautologous Platelets into Peripheral Vein, Percutaneous Approach (ICD-10-PCS; 2023-01-26)
PROC: 30233N1 Transfusion of Nonautologous Red Blood Cells into Peripheral Vein, Percutaneous Approach (ICD-10-PCS; 2023-01-26)
PROC: 0DB68ZX Excision of Stomach, Via Natural or Artificial Opening Endoscopic, Diagnostic (ICD-10-PCS; principal; 2023-01-26 10:15)
PROC: 0W9G3ZX Drainage of Peritoneal Cavity, Percutaneous Approach, Diagnostic (ICD-10-PCS; 2023-01-29)
DX: K74.60 Unspecified cirrhosis of liver (principal); D61.818 Other pancytopenia; D62 Acute posthemorrhagic anemia; I85.10 Secondary esophageal varices without bleeding; R18.8 Other ascites; K76.6 Portal hypertension; N17.9 Acute kidney failure, unspecified; E46 Unspecified protein-calorie malnutrition; B18.2 Chronic viral hepatitis C; K29.00 Acute gastritis without bleeding; N18.30 Chronic kidney disease, stage 3 unspecified; E11.42 Type 2 diabetes mellitus with diabetic polyneuropathy; D69.6 Thrombocytopenia, unspecified; K64.8 Other hemorrhoids; E88.09 Other disorders of plasma-protein metabolism, not elsewhere classified; E87.6 Hypokalemia; D63.1 Anemia in chronic kidney disease; D50.9 Iron deficiency anemia, unspecified; E11.22 Type 2 diabetes mellitus with diabetic chronic kidney disease; E83.42 Hypomagnesemia; K76.82 Hepatic encephalopathy; E87.70 Fluid overload, unspecified; T47.3X6A Underdosing of saline and osmotic laxatives, initial encounter; F17.210 Nicotine dependence, cigarettes, uncomplicated; R16.1 Splenomegaly, not elsewhere classified; Z79.84 Long term (current) use of oral hypoglycemic drugs; Z91.148 Patient's other noncompliance with medication regimen for other reason; Z79.899 Other long term (current) drug therapy; Z91.128 Patient's intentional underdosing of medication regimen for other reason
CPT/HCPCS: 36415; 36430; 49083; 71045; 71250; 74018; 76700; 80048; 80053; 80069; 80074; 81003; 82042; 82105; 82140; 82248; 82550; 82570; 82607; 82728; 82945; 82947; 83520; 83540; 83615; 83735; 84100; 84132; 84145; 84156; 84157; 84165; 84439; 84443; 84466; 84550; 85014; 85018; 85025; 85044; 85610; 85730; 86021; 86038; 86160; 86225; 86430; 86850; 86900; 86901; 86920; 87070; 87389; 87522; 88108; 88305; 88312; 89050; 94760; 96374; 96375; 99285; J0171; J0696; J1940; J2001; J2405; J2704; J3010; J3475; J7030; J7050; P9016; P9035; P9047; P9100

== ENCOUNTER 2023-03-10 21:37 | Emergency (ER) | payer BC ==
--- OUTSIDE RECORDS SUMMARY | 2023-03-10 21:39 | XMS REPORT | Clinical Summary ---
:1965 Author Organization [facility] MD [facility] Address [address] [place] [id number] Care Team Providers Name Role Phone Unavailable [...] Not on file Results Not on fileafter 03/10/2022
--- OUTSIDE RECORDS SUMMARY | 2023-03-10 21:51 | XMS REPORT | Continuity of Care Document ---
:1965 Author Organization [facility] t Address [address] [facility] [address] [place] [address] Care Team Providers Name Role Phone Asked, No Pcp Primary Care Physician Unavailable Phylicia Gonzalez Attending Clinician Unavailable KOMAL OWEN Attending Clinician Unavailable OLGA JAIN Attending Clinician Unavailable SP PHELPS Attending Clinician Unavailable MERE DONG Attending Clinician Unavailable LYNDSEY PARKER Attending Clinician Unavailable KHOI KWAN Attending Clinician Unavailable Khoi Kwan MD Attending Clinician Doctor Unassigned, [place] Attending Clinician Unavailable Haseeb Siddiqui MD Attending Clinician Lauren Ortiz Attending Clinician Unavailable Michelle Medina Attending Clinician Unavailable Mason NULL, [place] Attending Clinician Dennis FRANZ, Marcus Bernardo Attending Clinician Unavailable PAUL HARGROVE Attending Clinician Unavailable Martir CAMPBELL Zeynep J Attending Clinician Delvin NULL, Paul Attending Clinician Michael NULL, Perri Cotton Attending Clinician Brayden NULL, Komal Wood Attending Clinician [phone] Timothy NULL, Leonardo García Attending Clinician Raúl NULL, Kalia Royal Attending Clinician Reji NULL, Wendy Elizabeth Attending Clinician [phone] Verito NULL, Neela Smyth Attending Clinician Roseann Luna CRNA Attending Clinician ERNESTO ARIAS Attending Clinician Unavailable IRENE WATTS Attending Clinician Unavailable NAJMA COFFMAN Attending Clinician Unavailable ANN LITTLE Attending Clinician Unavailable ERIC MARTINEZ Attending Clinician Unavailable ROMINA ROBLES Attending Clinician Unavailable HAVEN DOLAN Attending Clinician Unavailable CJ OSPINA Attending Clinician Unavailable You Gordillo Attending Clinician ROSE MARIE MEDRANO Attending Clinician Unavailable URBAN QUEVEDO Attending Clinician Unavailable RACHEL ANTON Attending Clinician Unavailable ANNMARIE PRICE Attending Clinician Unavailable JAMEL HERNANDEZ Attending Clinician Unavailable BEV MATHEW Attending Clinician Unavailable DEBBIE ROSE Attending Clinician Unavailable ZAINAB MTZ Attending Clinician Unavailable IGOR MEDINA Attending Clinician Unavailable ALLAN CHOW Attending Clinician Unavailable JAMEL SCHAEFER Attending Clinician Unavailable Adela Jacobsen Attending Clinician Emily Lilly Attending Clinician [phone] Antonino, Conchita L Attending Clinician Unavailable Rachel Anton MD Dacel Attending Clinician [phone] Bill Roa MD Attending Clinician Osman NULL, Gunnar Hooks Attending Clinician [phone] Lawrence Ramos CRNA Attending Clinician Sheikh CHAKA, Hernando Aguirre Attending Clinician Yeni Vila PA-C Attending Clinician [phone] José Luis Dunlap Attending Clinician Unavailable Serina NULL, Vandana De Oliveira Attending Clinician Oracio NULL, Zaida Attending Clinician Keith NULL, Lyndsey Attending Clinician Ajith NULL, Georgina Ferraro Attending Clinician [phone] Halle NULL, Cinthia Attending Clinician Odilia NULL, Asha Attending Clinician Jamel Hernandez MD Attending Clinician Adi NULL, Misael Uribe Attending Clinician [phone] Martir NULL, Maddy Browning Attending Clinician [phone] Madelin NULL, Rosa Elena Brooks Attending Clinician [phone] GEORGE SPENCER Attending Clinician Unavailable Sp Phelps [...] Admitting Clinician NAJMA COFFMAN Admitting Clinician Unavailable GREGORIO LOVE Admitting Clinician Unavailable HAVEN DOLAN Admitting Clinician Unavailable GEORGINA THOMPSON Admitting Clinician Unavailable IGOR MEDINA MURJONATHAN Admitting Clinician Unavailable KIM BATEMAN Admitting Clinician Unavailable BILL ROA Admitting Clinician Unavailable GEORGE SPENCER Admitting Clinician Unavailable JAC RASCON Admitting Clinician Unavailable MARIVEL INGRAM Admitting Clinician Unavailable HASEEB MARTIN Admitting Clinician Unavailable ISAAC CARTAGENA Admitting Clinician Unavailable STEVEN HURTADO Admitting Clinician Unavailable Payers Payer Name Policy Type Policy Number Effective Date Expiration Date S nader BCBS MEDICARE [id number] 2021 ADVANTAGE 00:00:00 HUMANA MEDICARE [id number] 2020 ADV 00:00:00 [employer] MEDICARE [id number] 2020 00:00:00 MEDICAID SSI PENDING 2019 PENDING 00:00:00 BCBS [facility] [id number] 2021 MEDICARE ADV 00:00:00 [facility] 111 [id number] 2021 Common S pirit Advantage HMO 00:00:00 - [facility] MEDICARE A B [id number] 2020 00:00:00 MEDICAID 365 [id number] 2019 2019 VENDOR 00:00:00 00:00:00 Problems Condition Condition Condition Status Onset Resolution Last Treating Co mments Source Name Details Category Date Date Treatment Clinician Date Fall, Fall, Disease Active Univers initial initial 02-07 [place] Closed Closed Disease Active Univers fracture fracture 02-07 [place] of Medical lumbar lumbar Branch spine, spine, sequela sequela Abdomen Abdomen Disease Active [facility] firm on firm on 01-28 [facility] palpation palpation 00:00: Medi iglesia 00 [place] Screening Screening Disease Active [facility] for colon for colon 8 [facility] cancer cancer 00:00: Medical 00 [place] Abnormal Abnormal Disease Active [facility] liver liver 8 [facility] diagnostic diagnostic 00:00: Wi dical imaging imaging 00 [place] Common Common Disease Active [facility] bile duct bile duct 6-27 Luke s stone stone 00:00: Medical 00 [place] Hepatitis Hepatitis Disease Active [facility] C virus C virus 5-10 [facility] infection infection 00:00: [facility] cured cured 00 Center after after antiviral antiviral drug drug therapy therapy Hematemesi Hematemesi Disease Active [facility] s with s with 4-07 [facility] nausea nausea 00:00: Medical 00 [place] Flank pain Flank pain Disease Active [facility] 4-06 [facility] 00:00: Medical 00 [place] Decompensa Decompensa Disease Recurre 2020-[address] gaby HCV gaby HCV nce 0-08 [facility] cirrhosis cirrhosis 00:00: [facility] 00 [place] Thrombocyt Thrombocyt Disease Recurre 2020-[address] openia openia nce 0-06 [facility] 00:00: Medical 00 [place] Rectal Rectal Disease Active 2020-[address] bleeding bleeding 0-06 [facility] 00:00: Medical 00 [place] Portal Portal Disease Recurre [facility] hypertensi hypertensi nce 7-29 [facility]ing kes on on 00:00: Medical 00 Center Secondary Secondary Disease Recurre [facility] esophageal esophageal nce 7-29 [facility] varices varices 00:00: Medical without without 00 Center bleeding bleeding GI bleed GI bleed Disease Active [facility] - [facility] 00:[facility]: Medical 00 Center Hepatitis Hepatitis Disease Active [facility] C 7-23 [facility] 00:00: Medical 00 Center Anemia Anemia Disease Active [facility] 7-23 [facility] 00:00: Medical 00 Center Hematochez Hematochez Disease Active [facility] ia ia 7- [facility] 00:00: Medical 00 Center Acute Acute Disease Active [facility] blood loss blood loss 7-11 Ning kes anemia anemia 00:00: Medical 00 Center Hepatic Hepatic Disease Recurre [facility] encephalop encephalop nce 7-11 [facility] [place]es athy athy 00:00: Medical 00 Center NATACHA (acute NATACHA (acute Disease Recurre [facility] kidney kidney nce 12-10 [facility] injury) injury) 00:00: Medical 00 Center Gastrointe Gastrointe Disease Active C [facility] stinal stinal 12-09 kes hemorrhage hemorrhage 00:00: Me dical with with 00 Center hematemesi hematemesi s s Portal Portal Disease Active Overview: Univer s hypertensi hypertensi 12-04 Formattin ity of on on 00:00: g of this [place] 00 note Medical might be Branch different from the original. Added automatic ally from request for surgery [id number] Esophageal Esophageal Disease Active Overview : Univers varices varices 12-04 Formattin ity o f without without 00:00: g of this [place] bleeding, bleeding, 00 note Medi iglesia unspecifie unspecifie might be Branch d d different esophageal esophageal from the varices varices original. type type Added automatic ally from request for surgery [id number] Encounter Encounter Disease Active Overview: Univers for for 12-04 Formattin ity of screening screening 00:00: [place] other for other 00 note Medi iglesia viral viral might be Branch diseases diseases different from the original. Added automatic ally from request for surgery [id number] Other Other Disease Active Overview: Univer s abnormal abnormal 12-04 Formattin ity of tumor tumor 00:00: g of this [place] markers markers 00 note Medical might be Branch different from the original. Added automatic ally from request for surgery [id number] M54.14 - M54.14 - Diagnosis Active 2021-01-11 Memoria RADICULOPA RADICULOPA 11-29 15:43:00 l THY, THY, 00:01: García THORACIC THORACIC 00 REGION REGION Active 11/29/2020 AN[place]IO [place] R41.3 - R41.3 - Diagnosis Active 2020-12-29 Memoria OTHER OTHER 11-16 15:43:00 l AMNESIA AMNESIA 00:01: García G25.3 - G25.3 - 00 MYOCLONUS MYOCLONUS Active 11/16/2020 ANTONIO [place] Acute Acute Disease Active Univers hepatic hepatic 6-04 ity of encephalop encephalop [place] at[place] at[place] Medical Branch Anxiety Anxiety Disease Active Univers 5-29 ity of 00:00: Medical Branch Pancreatic Pancreatic Disease Active U nivers insufficie insufficie 29 it y of ncy ncy 00:00: Medical [...] 00 PAIN M54.5 PAIN M54.5 Active 08/30/2020 MH OPID [place] LOW BACK LOW BACK Diagnosis Active 2020-10-03 Memoria PAIN PAIN 3-30 15:31:00 l Active 08:00: García 08/29/2020 00 MH SMR [facility] Periodonta Periodonta Disease Active 2019-0 U nivers l abscess l abscess 2-16 ity of 00:00: Medical Branch Hypokalemi Hypokalemi Disease Active 2019-0 U nivers a a 1-30 ity of 00:00: Medical Branch Lethargy Lethargy Disease Active Unive rs 1-29 ity of 00:00: Medical Branch Hematochez Hematochez Disease Active U nivers ia ia 9-15 ity of 00:00: Medical Branch Lower GI Lower GI Disease Active Overview: Un connor bleeding bleeding 9-15 Formattin ity of 00:00: g of this 00 note Medical might be Branch different from the original. Added automatic ally from request for surgery [id number] Gastrointe Gastrointe Disease Active Overview : Univers stinal stinal 9-15 Formattin ity of hemorrhage hemorrhage 00:00: g of this [place] , , 00 note Medical unspecifie unspecifie might be Branch d d different gastrointe gastrointe from the stinal stinal original. hemorrhage hemorrhage Added type type automatic ally from request for surgery [id number] Cirrhosis, Cirrhosis, Disease Active U nivers non-alcoho [...] type automatic ally from request for surgery [id number] Hyperglyce Hyperglyce Disease Active U souravers socorro socorro 8-08 ity of 00:00: [place] 00 [facility] Branch Abdominal Abdominal Disease Active Uni vers pain pain 5-31 ity of 00:00: [place] 00 [facility] Branch Gallstone Gallstone Disease Active Uni vers pancreatit pancreatit 4-16 it y of is is 00:00: [place] 00 [facility] Branch Decompensa Decompensa Disease Active 2015-06 U anshu gaby gaby 0-29 ity of hepatic hepatic 00:00: [place] cirrhosis cirrhosis 00 [facility] Branch Type 2 Type 2 Disease Active 2015-06 Univers diabetes diabetes 0-06 ity of mellitus mellitus 00:00: [place] without without 00 Medical complicati complicati Br anch on on Chronic Chronic Disease Active 2015-06 Univers abdominal abdominal 0-06 ity of pain pain 00:00: [place] 00 Medical Branch 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 0-06 ity of 00:00: [place] 00 [facility] Branch Hepatitis Hepatitis Disease Active Uni vers C C 8-24 ity of 00:00: [place] 00 Medical Branch Hepatosple Hepatosple Disease Active U nivers nomegaly nomegaly 824 ity of 00:00: Medical Branch Thrombocyt Thrombocyt Disease Active U nivyenny openia openia 24 ity of 00:00: [place] Medical Branch Cirrhosis Cirrhosis Disease Active Met [...] without 00 l complicati complicati on on [id number] Thrombocyt Problem Co mmon openia Spirit - CHI [facility] [id number] Anemia in Problem Com mon other Spirit chronic - CHI diseases [facility] [id number] Mixed Problem Common hyperlipid Spirit emia - CHI [facility] [id number] Esophageal Problem Com mon varices Spirit determined - CHI by [facility] [id number] Type 2 Problem Commo n 9102 diabetes Spirit mellitus - CHI with other [facility] kidney Medical complicati Center on Chronic Chronic Problem Common viral viral Spirit hepatitis hepatitis - CH I B without B without delta-agen delta [facility] t agent and Medical without Center coma [id number] Major Problem Common depression Spirit , - CHI recurrent, [facility] Tobacco Smokes 1 Problem Common user pack of Spirit cigarettes - CHI per day [facility] [id number] Other Problem Common chronic Spirit pain - [facility] Transient Problem Resolve 2021-08-12 M emoria ischemic Transient d 22:06:52 l attack ischemic García (disorder) attack (disorder) Resolved Problem 08/12/2021 Medical Group,Misc her Neuro, ANTONIO St R41.3 - R41.3 - Diagnosis Active 2021-08-02 Memoria OTHER OTHER 11:26:00 l AMNESIA AMNESIA García K74.60 - K74.60 - UNSPECIFI UNSPECIFI Active ANTONIO St Knee pain Knee pain Problem Active 2021-08-12 Memoria (finding) (finding) 22:06:52 l Active [place] Problem 08/12/2021 Medical Group,[facility] her Neuro, OPID [place] Recurrent Recurrent Problem Active 2021-08-12 Memoria falls falls 22:06:52 l (finding) (finding) Herm omid Active Problem 08/12/2021 Medical [facility] her Neuro, OPID [place] Amnesia Amnesia Problem Active 2021-08-12 Me moria (finding) (finding) 22:06:52 l Active García Problem 08/12/2021 [facility] her Neuro, OPID [place] Chronic Chronic Problem Active 2021-08-12 Me moria hepatitis hepatitis 22:06:52 l C C García (disorder) (disorder) Active Problem 08/12/2021 Medical [facility] her Neuro, OPID [place] Headache Headache Problem Active 2021-08-12 Memoria (finding) (finding) 22:06:52 l Active [place] Problem 08/12/2021 Medical [facility] her Neuro, OPID [place] Low back Low back Problem Active 2021-08-12 Memoria pain pain 22:06:52 l (disorder) (disorder) He rmann Active Problem 08/12/2021 Medical [facility] her Neuro, OPID [place] Myoclonus Myoclonus Problem Active 2021-08-12 Memoria (finding) (finding) 22:06:52 l Active García Problem 08/12/2021 Medical [facility] her Neuro, OPID [place] Compressio Compressi Problem Active 2021-08-12 Memoria n fracture on 22:06:52 l of fracture [place] thoracic of spine thoracic (disorder) spine (disorder) Active Problem 08/12/2021 Medical [facility] her Neuro, OPID [place] Type II Type II Problem Active 2021-08-12 Me moria diabetes diabetes 22:06:52 l mellitus mellitus Abdi n uncontroll uncontroll ed ed (finding) (finding) Active Problem 08/12/2021 Medical [facility] her Neuro, OPID [place] Diabetes Diabetes Disease Recurre [facility] mellitus, mellitus, nce Luke s type 2 type 2 Medical Center Hepatitis Hepatitis Disease Active [facility] B core B core [facility] antibody antibody Medica l positive positive Center Smoking Smoking Disease Active [facility] Esophageal Esophageal Disease Active U nivers reflux reflux [facility] Diabetes Diabetes Disease Active Unive rs mellitus mellitus [facility] Depression [facility] Marijuana Marijuana Disease Active [facility] Allergies, Adverse Reactions, Alerts Allergy Allergy Status Severity Reaction(s) Onset Inactive Treating Comm ents Source Name Type Date Date Clinician NO KNOWN Allergy Active [facility] ALLERGIE [facility] NO KNOWN Drug Active Univers [facility] Family History Family Member Diagnosis Comments Start Date Stop Date Source Natural father No Known Problem [facility] Natural father Heart disease [facility] Natural mother No Known Problem [facility] Natural mother Diabetes [facility] Natural mother Pancreatitis [facility] Natural sister Diabetes [facility] Social History Social Habit Start Date Stop Date Quantity Comments Source History of Tobacco Current Smoker Co mmon Spirit - Use [facility] Sexual orientation Method ist Hospital History SDOH [facility]Med Medical Center History SDOH [facility] Places Medical Ce nter Lived Gender identity Sikhism Hospital History [facility] o f Alcohol Frequency [facility] History [facility] University o f Alcohol Std Drinks [facility] History [facility] o f Alcohol Binge [facility] Exposure to 2022-08-19 2022-08-29 Not sure University of SARS-CoV-2 (event) 00:00:00 11:52:00 [facility] Alcohol intake 2022-06-29 2022-06-29 Ex-drinker [facility] St Tom es 00:00:00 00:00:00 (finding) Medical Center History SDOH 2022-01-29 2022-01-[address] [facility] [facility] Transport Med 00:00:00 00:00:[address] History [facility] 2022-01-29 2022-01-[address] [facility] Housing Unable to 00:00:00 00:00:00 Medical Center Pay History [facility] 2022-01-29 2022-01-[address] [facility] Housing Homeless 00:00:00 00:00:00 Medical Center Last Year Tobacco Comment 2021-07-03 2021-07-03 She states [facility] 00:[facility]:00 00:00:00 she smokes 4 Medical Cent er cigarettes daily Tobacco use and 2021-07-03 2021-07-03 Smokeless tobacco [facility] [place] exposure 00:00:00 00:00:00 non-user Medical Center Education 2020-11-03 2020-11-[address] [place] [address] 00:00:00 00:00:00 [facility] Social History 2020-08-23 2020-08-23 [facility] 20:12:29 20:12:29 Alcohol Comment 2016-01-24 2016-01-24 former Universit y of 00:00:00 00:00:00 [facility] Cigarettes smoked 2016-01-12 2016-01-[address] current (pack per 00:00:00 00:00:00 Hospita l day) - Reported Cigarette 2016-01-12 2016-01-12 Sikhism pack-years 00:00:00 00:00:00 Hospital History of Social 2016-01-11 2016-01-[address] function 00:00:00 00:00:00 Hospital Sex Ass[birth year] At [birth year] Universit y of 00:00:00 00:00:00 [place] MD [facility] Smoking Status Start Date Stop Date Source Smokes tobacco daily 2021-07-03 00:00:00 [facility] Medications Ordered Filled Start Stop [...] [place] injection 4 00 :00 dose, On Medi iglesia mg Mirella Branch 08/29/22 at 1330, LILLI NaCl 0.9% 2022- No 1000mL at 999 Uni vers (NS) bolus 3-30 03-30 mL/hr, ity of infusion 18:30: 20:41 1,000 mL, Shaun as 1,000 mL 00 :00 IV Medical Infusion, Branch ONCE, 1 dose, On Mirella 08/29/22 at 1330, STAT ondansetron 2022-0 Yes [id number] 4mg Take 1 Univers 4 mg 3-30 tablet by ity of disintegrat 00:00: mouth [place] ing tablet 00 every 4 Medica l (four) Branch hours as needed for Nausea and Vomiting (N/V). polyethylen 0 Yes [id number] 1{packe Take 1 Univers e glycol 3-30 t} Packet by ity of 3350 00:00: mouth [place] (MIRALAX) 00 every 24 Medica l 17 gram (twenty-fo Branch powder ur) hours as needed for Constipati on. magnesium 2022- No [id number] 300mL Take 300 Univers citrate 3-30 03-31 mL by ity of solution 00:00: 04:59 mouth [place] 00 :00 now for 1 Medical dose. Branch magnesium 0 Yes [id number] 400mg Take 400 Univers oxide 420 9-11 mg by ity of mg Tab 00:00: mouth [place] 00 daily. Medical Branch magnesium 2021-0 Yes [id number] 400mg Take 400 Univers oxide 420 9-11 mg by ity of mg Tab 00:00: mouth [place] 00 daily. Medical Branch magnesium 2021-0 Yes [id number] 400mg Take 400 Univers oxide 420 9-11 mg by ity of mg Tab 00:00: mouth [place] 00 daily. Medical Branch magnesium 2021-0 Yes [id number] 400mg Take 400 Univers oxide 420 9-11 mg by ity of mg Tab 00:00: mouth [place] 00 daily. Medical Branch omeprazole 0 Yes 20mg Take 20 mg U nivers 20 mg 9-10 by mouth ity of capsule 17:29: [place] 05 [place] traMADoL 50 2021-0 Yes 50mg Take 50 mg Univers mg tablet 9-10 by mouth ity of 17:29: as needed. [place] 05 Medical Branch methocarbam 2022-0 Yes 750mg Take 750 U nivers oL 750 mg 9-10 mg by ity of tablet 17:29: mouth as [place] 05 needed. Medical Branch lactulose Yes 10g Take 10 g Uni vers 10 gram/15 9-10 by mouth. ity of mL solution 17:29: [place] [address] Medical Branch omeprazole Yes 20mg Take 20 mg U nivers 20 mg 9-10 by mouth ity of capsule 17:29: as needed. [place] [address] Medical Branch traMADoL 50 0 Yes 50mg Take 50 mg Univers mg tablet 9-10 by mouth ity of 17:29: as needed. [place] [address] Medical Branch methocarbam Yes 750mg Take 750 U nivers oL 750 mg 9-10 mg by ity of tablet 17:29: mouth as [place] 05 needed. Medical Branch lactulose Yes 10g Take 10 g Uni vers 10 gram/15 9-10 by mouth. ity of mL solution 17:29: [place] [address] Medical Branch omeprazole Yes 20mg Take 20 mg U nivers 20 mg 9-10 by mouth ity of capsule 17:29: as needed. [place] [address] Medical Branch traMADoL 50 Yes 50mg Take 50 mg Univers mg tablet 9-10 by mouth ity of 17:29: as needed. [place] [address] Medical Branch methocarbam Yes 750mg Take 750 U nivers oL 750 mg 9-10 mg by ity of tablet 17:29: mouth as [place] 05 needed. Medical Branch lactulose Yes 10g Take 10 g Uni vers 10 gram/15 9-10 by mouth. ity of mL solution 17:29: [place] [address] Medical Branch omeprazole Yes 20mg Take 20 mg U nivers 20 mg 9-10 by mouth ity of capsule 17:29: as needed. [address] Branch traMADoL 50 0 Yes 50mg Take 50 mg Univers mg tablet 9-10 by mouth ity of 17:29: as needed. [place] [address] Medical Branch methocarbam Yes 750mg Take 750 U nivers oL 750 mg 9-10 mg by ity of tablet 17:29: mouth as [place] 05 needed. Medical Branch lactulose Yes 10g Take 10 g Uni vers 10 gram/15 9-10 by mouth. ity of mL solution 17:29: [place] [address] Medical Branch omeprazole 2021-0 Yes 20mg Take 20 mg U nivers 20 mg 9-10 by mouth ity of capsule 17:29: as needed. [facility] [place] [address] Branch traMADoL 50 2021-0 Yes 50mg Take 50 mg Univers mg tablet 9-10 by mouth ity of 17:29: as needed. [address] baclofen 5 2021-0 Yes [id number] 5mg Take 1 Univers mg tablet 9-10 tablet by ity o f 00:00: mouth in [place] [address] the Medical morning Branch and 1 tablet at noon and 1 tablet in the evening. gabapentin 2021-0 Yes [id number] 300mg Take 1 Univers 300 mg 9-10 capsule by ity of capsule 00:00: mouth [place] [address] every 8 Medical (eight) Branch hours. lidocaine 5 2021-0 Yes [id number] 1{patch Apply 1 Univers % (700 9-10 } Patch to ity of mg/patch) 00:00: [place] patch 00 the Medical morning. Branch 12 hours on, 12 hours off baclofen 5 2021-0 Yes [id number] 5mg Take 1 Univers mg tablet 9-10 tablet by ity o f 00:00: mouth in [place] the Medical morning Branch and 1 tablet at noon and 1 tablet in the evening. gabapentin 2021-0 Yes [id number] 300mg Take 1 Univers 300 mg 9-10 capsule by ity of capsule 00:00: mouth [place] [address] every 8 Medical (eight) Branch hours. lidocaine 5 2021-0 Yes [id number] 1{patch Apply 1 Univers % (700 9-10 } Patch to ity of mg/patch) 00:00: [place] patch 00 the Medical morning. Branch 12 hours on, 12 hours off baclofen 5 2021-0 Yes [id number] 5mg Take 1 [facility] mg tablet 9-10 tablet by ity o f 00:00: mouth in [place] [address] the Medical morning Branch and 1 tablet at noon and 1 tablet in the evening. gabapentin 2-0 Yes [id number] 300mg Take 1 [facility] 300 mg 9-10 capsule by ity of capsule 00:00: mouth [place] [address] every 8 Medical (eight) Branch hours. lidocaine 5 2021-0 Yes [id number] 1{patch Apply 1 [facility] % (700 9-10 } Patch to ity of mg/patch) 00:00: area(s) in [place] patch 00 the Medical morning. Branch 12 hours on, 12 hours off baclofen 5 2021-0 Yes [id number] 5mg Take 1 [facility] mg tablet 9-10 tablet by ity o f 00:00: mouth in [place] 00 the Medical morning Branch and 1 tablet at noon and 1 tablet in the evening. gabapentin 2021-0 Yes [id number] 300mg Take 1 [facility] 300 mg 9-10 capsule by ity of capsule 00:00: mouth [place] 00 every 8 Medical (eight) Branch hours. lidocaine 5 2021-0 Yes [id number] 1{patch Apply 1 [facility] % (700 9-10 } Patch to ity of mg/patch) 00:00: area(s) in [place] patch 00 the Medical morning. Branch 12 hours on, 12 hours off lactulose 2021-0 Yes 20g Q.[id number] Take [address] [facility] (CHRONULAC) 02-01 [id number] by mouth 3 [facility] gram/15 11:14: 3D (three) Medi iglesia mL (15 mL) 18 times Center solution daily. gabapentin 2021-0 Yes 300mg Q.06524255 Take [address] [facility] (NEURONTIN) - [id number] mg by L ukes 300 MG 11:14: 3D mouth 3 Medical capsule 18 (three) Center times daily. hydrOXYzine 2021-0 Yes 25mg Take [address] [facility] (ATARAX) 25 02 by mouth 3 Ning kes MG tablet 11:14: (three) Medic al 18 times Center daily as needed for Itching. traMADoL 2021-0 Yes 50mg Take [address] [facility] (ULTRAM) 50 -02 by mouth Luke [facility] mg tablet 11:14: every 6 Medic al 18 (six) Center hours as needed for Pain. methocarbam 2022-0 Yes 750mg Take [address] oL 9-02 mg by [facility] (Robaxin-75 11:14: mouth 2 Med ical 0) 750 MG 18 (two) Center tablet times daily as needed (Spasms). diphenhydrA 2021-0 Yes 25mg Take [address] [facility] MINE 9-02 by mouth [facility] (BENADRYL) 11:14: every Medica l 25 mg 18 night as Center tablet needed for Sleep. cholecalcif 0 Yes 2000U QD Take 2,[address] [facility], 9- Units by [facility] vitamin D3, 11:14: mouth Medic al 2,000 unit 18 daily. Center Tab lactulose 0 Yes 20g Q.[id number] Take [address] [facility] (CHRONULAC) 02-01 [id number] by mouth 3 [facility] 10 gram/15 11:14: 3D (three) Medi iglesia mL (15 mL) 18 times Center solution daily. gabapentin 0 Yes 300mg Q.69303036 Take [address] [facility] (NEURONTIN) 02-01 [id number] mg by L ukes 300 MG 11:14: 3D mouth 3 Medical capsule 18 (three) Center times daily. hydrOXYzine 0 Yes 25mg Take [address] [facility] (ATARAX) 25 02 by mouth 3 Ning kes MG tablet 11:14: (three) Medic al 18 times Center daily as needed for Itching. traMADoL 0 Yes 50mg Take [address] [facility] (ULTRAM) 50 02-01 by mouth Luke s mg tablet 11:14: every 6 Medic al 18 (six) Center hours as needed for Pain. methocarbam 0 Yes 750mg Take [address] oL -02 mg by [facility] (Robaxin-75 11:14: mouth 2 Med ical 0) 750 MG 18 (two) Center tablet times daily as needed (Spasms). diphenhydrA 0 Yes 25mg Take [address] [facility] MINE 02-01 by mouth [facility] (BENADRYL) 11:14: every Medica l 25 mg 18 night as Center tablet needed for Sleep. cholecalcif 0 Yes 2000U QD Take 2,[address] [facility], 9- Units by [facility] vitamin D3, 11:14: mouth Medic al 2,000 unit 18 daily. Center Tab hydrocortis 2021-0 2022- No Q.5D Place [facility] one 02-01 09-12 rectally 2 [facility] (ANUSOL-HC) 00:00: 23:59 (two) Medi iglesia 2.5 % 00 :00 times Center rectal daily for cream 10 days. lisinopriL 2022-0 Yes 5mg QD Take [address] [facility] [address] [facility] (PRINIVIL,Z 6-16 by mouth Luke s ESTRIL) 5 00:00: daily. Medica l MG tablet 00 Center lisinopriL 2-0 Yes 5mg QD Take [address] [facility] [address] [facility] (PRINIVIL,Z 6-16 by mouth Luke s ESTRIL) 5 00:00: daily. Medica l MG tablet 00 Center Cephalexin Cephalexin 2021-0 202- No 1{capsu BID Cephalexin 500 MG 500 MG 10-1218 le} 500 MG 00:00: 00:00 00 :00 propranoloL 2-0 Yes 20mg Q.5D Take [address] [facility] (INDERAL) 2-16 by mouth 2 Luke s 20 MG 00:00: (two) Medical tablet 00 times Center daily. pantoprazol 2-0 Yes 40mg Q.5D Take [address] [facility] e 2-16 by mouth 2 [facility] (PROTONIX) 00:00: (two) Medica l 40 MG 00 times Center tablet daily. propranoloL 2022-0 Yes 20mg Q.5D Take [address] [facility] (INDERAL) 2-16 by mouth 2 Luke [facility] 20 MG 00:00: (two) Medical tablet 00 times Center daily. pantoprazol 2-0 Yes 40mg Q.5D Take [address] [facility] e 2-16 by mouth 2 [facility] (PROTONIX) 00:00: (two) Medica l 40 MG 00 times Center tablet daily. glipiZIDE glipiZIDE 0 No 1{table BID glipiZIDE ER 10 MG ER 10 MG -16 t_with_ ER 10 MG 00:00: breakfa 00 st} traMADol traMADol 0 No 1{table QD traMADol HCl 50 MG HCl 50 MG -16 t_as_ne HCl 50 MG 00:00: eded} 00 HumuLIN HumuLIN 0 No BID HumuLIN 70/30 70/30 -16 70/30 KwikPen KwikPen 00:00: KwikPen (70-30) 100 (70-30) 100 00 (70-30) UNIT/ML UNIT/ML 100 UNIT/ML glipiZIDE glipiZIDE No 1{table BID glipiZIDE ER 10 MG ER 10 MG 16 t_with_ ER 10 MG 00:00: breakfa 00 st} traMADol traMADol No 1{table QD traMADol HCl 50 MG HCl 50 MG -16 t_as_ne HCl 50 MG 00:00: eded} 00 HumuLIN HumuLIN No BID HumuLIN 70/30 70/30 -16 70/30 KwikPen KwikPen 00:00: KwikPen (70-30) 100 (70-30) 100 00 (70-30) UNIT/ML UNIT/ML 100 UNIT/ML rifAXIMin Yes Decompensat 550mg Q.5D Take [address] [facility] 550 mg Tab 2-01 ed hepatic tablet L ukes 00:00: cirrhosis (550 mg Medic al 00 (HCC) total) by Center mouth 2 (two) times daily. rifAXIMin Yes Decompensat 550mg Q.5D Take [address] [facility] 550 mg Tab 2- ed hepatic tablet L ukes 00:00: cirrhosis (550 mg Medic al 00 (HCC) total) by Center mouth 2 (two) times daily. FLUoxetine Yes 40mg QD Take [address] (PROzac) 40 1-16 by mouth Luke s MG capsule 00:00: daily . [address] FLUoxetine Yes 40mg QD Take [address] (PROzac) 40 1-16 by mouth Luke s MG capsule 00:00: daily . [address] hydrocortis 2020-06 Yes 1{appli Place [address] [facility] one 1-13 cation} applicatio [facility] (Procto-Sawyer 00:00: n rectally Medical ) 1 % crpe 00 2 (two) Center rectal times cream daily as needed (for pain from hemorrhoid s). hydrocortis 2020-06 Yes 1{appli Place [address] [facility] one 1-13 cation} applicatio [facility] (Procto-Sawyer 00:00: n rectally Medical ) 1 % crpe 00 2 (two) Center rectal times cream daily as needed (for pain from hemorrhoid s). Methocarbam Yes 750 mg = 1 Memoria ol 750 MG 8-23 tab, PO, l Oral Tablet 21:56: BID, PRN He rmann [Robaxin] 00 Spasms, X 30 day, # 60 tab, 2 Refill(s), Pharmacy: [facility], 147.32, cm, 12/27/20 11:32:00 CDT, Height, 54.545, kg, 12/27/20 11:32:00 CDT, Weight Methocarbam 2021-0 Yes 750 mg = 1 Memoria ol 750 MG 8-23 tab, PO, l Oral Tablet 21:56: BID, PRN Delvis rmann [Robaxin] 00 Spasms, X 30 day, # 60 tab, 2 Refill(s), Pharmacy: [facility], 147.32, cm, 12/27/20 11:32:00 CDT, Height, 54.545, kg, 12/27/20 11:32:00 CDT, Weight Methocarbam 2021-0 Yes 750 mg = 1 Memoria ol 750 MG 8-23 tab, PO, l Oral Tablet 21:56: BID, PRN Delvis rmann [Robaxin] 00 Spasms, X 30 day, # 60 tab, 2 Refill(s), Pharmacy: [facility], 147.32, cm, 12/27/20 11:32:00 CDT, Height, 54.545, kg, 12/27/20 11:32:00 CDT, Weight Hydroxyzine 2021-0 Yes 25 mg = 1 M emoria Hydrochlori 8-23 cap, PO, l de 25 MG 21:55: TID, PRN Corine nn Oral 00 Itching, X Capsule 10 day, # 30 cap, 2 Refill(s), Pharmacy: [facility], 147.32, cm, 12/27/20 11:32:00 CDT, Height, 54.545, kg, 12/27/20 11:32:00 CDT, Weight Hydroxyzine 2021-0 Yes 25 mg = 1 M emoria Hydrochlori 8-23 cap, PO, l de 25 MG 21:55: TID, PRN Corine nn Oral 00 Itching, X Capsule 10 day, # 30 cap, 2 Refill(s), Pharmacy: [facility], 147.32, cm, 12/27/20 11:32:00 CDT, Height, 54.545, kg, 12/27/20 11:32:00 CDT, Weight Hydroxyzine Yes 25 mg = 1 M emoria Hydrochlori 8-23 cap, PO, l de 25 MG 21:55: TID, PRN Corine nn Oral 00 Itching, X Capsule 10 day, # 30 cap, 2 Refill(s), Pharmacy: [facility], 147.32, cm, 12/27/20 11:32:00 CDT, Height, 54.545, kg, 12/27/20 11:32:00 CDT, Weight rifAXIMin Yes 550mg Q.5D Take 1 [facility] mg Tab 8-09 tablet [facility] 00:00: (550 mg Medical 00 total) by Center mouth 2 (two) times daily. FLUOXETINE Yes [id number] Take 2 U nivers 20 mg 7-28 tablets by ity of tablet 00:00: mouth once [place] daily Medical Branch FLUOXETINE 0 Yes [id number] Take 2 U nivers 20 mg 7-28 tablets by ity of tablet 00:00: mouth once [place] daily Medical Branch FLUOXETINE 2020-0 Yes [id number] Take 2 U nivers 20 mg 7-28 tablets by ity of tablet 00:00: mouth once [place] daily Medical Branch FLUOXETINE 2020-0 Yes [id number] Take 2 U nivers 20 mg 7-28 tablets by ity of tablet 00:00: mouth once [place] daily Medical Branch simvastatin Yes 20mg QD Take [address] [facility] (ZOCOR) 20 7-25 by mouth [facility] MG tablet 14:17: nightly. Medi iglesia 07 Center metFORMIN 0 Yes 1000mg Take 1,[address] [facility] (GLUCOPHAGE 7-25 mg by [facility] ) 1000 MG 14:17: mouth 2 Medic al tablet 07 (two) Center times daily with breakfast and dinner. lactulose 0 Yes 10g Q.33822609 Take [address] [facility] (CHRONULAC) 7-25 [id number] by mouth 3 [facility] 10 gram/15 14:17: 3D (three) Medi iglesia mL (15 mL) 07 times Center solution daily. gabapentin 0 Yes 300mg Q.[id number] Take [address] [facility] (NEURONTIN) 7-25 [id number] mg by L ukes 300 MG 14:17: [...] Medi iglesia 07 Center diphenhydrA Yes 25mg Q.96903212 Take [address] [facility] MINE 7-25 [id number] by mouth 3 Tom es (BENADRYL) 14:17: [...] QD Take [address] [facility] (NexIUM) 7-25 capsule [facility] 40 MG 00:00: (40 mg Medical capsule 00 total) by Center mouth daily. traMADoL 2020- No 50mg Take [address] [facility] (ULTRAM) 50 -24 01-04 tablet (50 L ukes mg tablet 00:00: 23:59 mg total) Me dical 00 :00 by mouth Center every 6 (six) hours as needed for Pain for up to 10 days. Max Daily Amount: 200 mg rifAXIMin 2020- No 550mg Q.5D Take [address] [facility] 550 mg Tab 7-22 08-09 tablet [facility] 00:00: 00:00 (550 mg Medical 00 :00 total) by Center mouth 2 (two) times daily. cefdinir No 300mg Q.5D Take 1 [facility] (OMNICEF) 12-14 capsule [facility] 300 MG 00:00: 23:59 (300 mg Medical capsule 00 :00 total) by Center mouth 2 (two) times daily for 2 days Antibiotic s to prevent infection. furosemide 2020- No 40mg Q.5D Take [address] [facility] (LASIX) 40 12-13 by mouth 2 Inng kes MG tablet 14:30: 00:00 (two) Medica l 08 :00 times Center daily. spironolact 2020- No 50mg QD Take [address] [facility] one 12-13 by mouth [facility] (ALDACTONE) 14:30: 00:00 daily. Med ical 50 MG 08 :00 Center tablet bisacodyL No 5mg Take [address] [facility] (DULCOLAX) 12-13 by mouth 2 Ning kes 5 mg EC 14:26: 00:00 (two) Medical tablet 10 :00 times Center daily as needed for Constipati on. traMADoL 2020- No 50mg Take [address] [facility] (ULTRAM) 50 12-13 tablet (50 L ukes mg tablet 00:00: 00:00 mg total) Me dical 00 :00 by mouth Center every 6 (six) hours as needed for Pain. Max Daily Amount: 200 mg rifAXIMin 2020- No 550mg Q.5D Take [address] [facility] 550 mg Tab 12-13 tablet [facility] 00:00: 00:00 (550 mg Medical 00 :00 total) by Center mouth 2 (two) times daily To prevent confusion sec to liver disease. SIMVASTATIN Yes [id number] 20mg TAKE 1 [facility] 20 mg 6-22 2 TABLET BY ity of tablet 00:00: MOUTH AT [address] SIMVASTATIN Yes [id number] 20mg TAKE 1 [facility] 20 mg 6-22 TABLET BY ity of tablet 00:00: MOUTH AT [address] SIMVASTATIN 2021-0 Yes [id number] 20mg TAKE 1 [facility] 20 mg 6-22 TABLET BY ity of tablet 00:00: MOUTH AT 00 BEDTIME Medical Branch SIMVASTATIN 2020-0 Yes [id number] 20mg TAKE 1 [facility] 20 mg 6-22 TABLET BY ity of tablet 00:00: MOUTH AT 00 BEDTIME Medical Branch ibuprofen 2020-0 Yes [id number] 600mg Take 1 [facility] 600 mg 6-20 tablet by ity of tablet 00:00: mouth 00 every 6 Medical (six) Branch hours as needed for Pain (scale 4-6). diazePAM 2020-0 Yes [id number] 5mg Take 1 [facility] (VALIUM) 5 6-20 tablet by ity of mg tablet 00:00: mouth (three) Medical times Branch daily as needed for Muscle Spasms. ibuprofen 2020-0 Yes [id number] 600mg Take 1 [facility] 600 mg 6-20 tablet by ity of tablet 00:00: mouth every 6 Medical (six) Branch hours as needed for Pain (scale 4-6). diazePAM 2020-0 Yes [id number] 5mg Take 1 [facility] (VALIUM) 5 6-20 tablet by ity of mg tablet 00:00: mouth (three) Medical times Branch daily as needed for Muscle Spasms. ibuprofen 2020-0 Yes [id number] 600mg Take 1 [facility] 600 mg 6-20 tablet by ity of tablet 00:00: mouth 00 every 6 Medical (six) Branch hours as needed for Pain (scale 4-6). diazePAM 2020-0 Yes [id number] 5mg Take 1 [facility] (VALIUM) 5 6-20 tablet by ity of mg tablet 00:00: mouth (three) Medical times Branch daily as needed for Muscle Spasms. ibuprofen 2020-0 Yes [id number] 600mg Take 1 [facility] 600 mg 6-20 tablet by ity of tablet 00:00: mouth 00 every 6 Medical (six) Branch hours as needed for Pain (scale 4-6). diazePAM 2020-0 Yes [id number] 5mg Take 1 [facility] (VALIUM) 5 6-20 tablet by ity of mg tablet 00:00: mouth (three) Medical times Branch daily as needed for Muscle Spasms. rifaximin 2021-0 Yes 0 Memoria 550 MG Oral 6-16 Refill(s) l Tablet 15:08: [place] [XIFAXAN] rifaximin Yes 0 Memoria 550 MG Oral 6-16 Refill(s) l Tablet 15:08: [place] [XIFAXAN] rifaximin Yes 0 Memoria 550 MG Oral 6-16 Refill(s) l Tablet 15:08: [place] [XIFAXAN] metFORMIN Yes [facility] (GLUCOPHAGE 5-29 [facility] ) 1000 MG 00:00: Medical tablet 00 [place] metFORMIN Yes [facility] (GLUCOPHAGE 5-29 [facility] ) 1000 MG 00:00: Medical tablet 00 [place] hydrOXYzine Yes [id number] 50mg Take 1 Univ ers 50 mg 5-29 capsule by ity of capsule 00:00: mouth as [place] 00 needed for Medical Other Branch (nausea). Indication s: nausea spironolact Yes [id number] 50mg Take 1 [facility] one 50 mg 5-29 tablet by ity o f tablet 00:00: mouth [place] 00 daily. Medical Branch metFORMIN Yes [id number] 1000mg Take 1 [facility] 1,000 mg 5-29 tablet by ity of tablet 00:00: mouth 2 (two) Medical times Branch daily with meals. esomeprazol Yes [id number] 40mg Take 1 [facility] e 40 mg 5-29 capsule by ity of capsule 00:00: mouth [place] 00 daily with Medical breakfast. Branch hydrOXYzine Yes [id number] 50mg Take 1 Univ ers 50 mg 5-29 capsule by ity of capsule 00:00: mouth as [place] 00 needed for Medical Other Branch (nausea). Indication s: nausea spironolact 2020- Yes [id number] 50mg Take 1 [facility] one 50 mg 5-29 tablet by ity o f tablet 00:00: mouth [place] 00 daily. Medical Branch metFORMIN Yes [id number] 1000mg Take 1 [facility] 1,000 mg 5-29 tablet by ity of tablet 00:00: mouth 2 [place] 00 (two) Medical times Branch daily with meals. esomeprazol 2020- Yes [id number] 40mg Take 1 [facility] e 40 mg 5-29 capsule by ity of capsule 00:00: mouth [place] 00 daily with Medical breakfast. Branch hydrOXYzine Yes [id number] 50mg Take 1 Univ ers 50 mg 5-29 capsule by ity of capsule 00:00: mouth as 00 needed for Medical Other Branch (nausea). Indication s: nausea spironolact 2020- Yes [id number] 50mg Take 1 [facility] one 50 mg 5-29 tablet by ity o f tablet 00:00: mouth [place] 00 daily. Medical Branch metFORMIN Yes [id number] 1000mg Take 1 [facility] 1,000 mg 5-29 tablet by ity of tablet 00:00: mouth 2 (two) Medical times Branch daily with meals. esomeprazol Yes [id number] 40mg Take 1 [facility] e 40 mg 5-29 capsule by ity of capsule 00:00: mouth [place] 00 daily with Medical breakfast. Branch hydrOXYzine Yes [id number] 50mg Take 1 Univ ers 50 mg 5-29 capsule by ity of capsule 00:00: mouth as 00 needed for Medical Other Branch (nausea). Indication s: nausea spironolact Yes [id number] 50mg Take 1 [facility] one 50 mg 5-29 tablet by ity o f tablet 00:00: mouth 00 daily. Medical Branch metFORMIN Yes [id number] 1000mg Take 1 [facility] 1,000 mg 5-29 tablet by ity of tablet 00:00: mouth 2 (two) Medical times Branch daily with meals. esomeprazol Yes [id number] 40mg Take 1 [facility] e 40 mg 5-29 capsule by ity of capsule 00:00: mouth [place] 00 daily with Medical breakfast. Branch Methocarbam Yes 750 mg = 1 Memoria ol 750 MG 5-24 tab, PO, l Oral Tablet 19:24: BID, PRN He rmomid [Robaxin] 00 Spasms, X 14 day, # 28 tab, 1 Refill(s), Pharmacy: [facility], 149.86, cm, 10/23/20 14:04:00 CDT, Height, 60.483, kg, 10/23/20 14:04:00 CDT, Weight Methocarbam Yes 750 mg = 1 Memoria ol 750 MG 5-24 tab, PO, l Oral Tablet 19:24: BID, PRN He rmann [Robaxin] 00 Spasms, X 14 day, # 28 tab, 1 Refill(s), Pharmacy: [facility], 149.86, cm, 10/23/20 14:04:00 CDT, Height, 60.483, kg, 10/23/20 14:04:00 CDT, Weight Methocarbam Yes 750 mg = 1 Memoria ol 750 MG 5-24 tab, PO, l Oral Tablet 19:24: BID, PRN He rmann [Robaxin] 00 Spasms, X 14 day, # 28 tab, 1 Refill(s), Pharmacy: [facility], 149.86, cm, 10/23/20 14:04:00 CDT, Height, 60.483, kg, 10/23/20 14:04:00 CDT, Weight furosemide 2020-0 Yes [id number] 40mg Take 1 U nivers (LASIX) 40 5-14 tablet by ity of mg tablet 00:00: mouth [place] 00 every Medical morning Branch and evening. furosemide 0 Yes [id number] 40mg Take 1 U nivers (LASIX) 40 5-14 tablet by ity of mg tablet 00:00: mouth [place] 00 every Medical morning Branch and evening. furosemide 2020-0 Yes [id number] 40mg Take 1 U nivers (LASIX) 40 5-14 tablet by ity of mg tablet 00:00: mouth [place] 00 every Medical morning Branch and evening. furosemide 2020-0 Yes [id number] 40mg Take 1 U nivers (LASIX) 40 5-14 tablet by ity of mg tablet 00:00: mouth [place] 00 every Medical morning Branch and evening. furosemide 2020-0 Yes [id number] 40mg Take 1 U nivers (LASIX) 40 5-14 tablet by ity of mg tablet 00:00: mouth [place] 00 every Medical morning Branch and evening. simvastatin 2020-0 Yes 1{tbl} Take [address] (ZOCOR) 20 4-10 tablet by Luke s MG tablet 00:00: mouth. Medica [address] simvastatin 2020-0 Yes 1{tbl} Take [address] [facility] [...] # 20 tab, 0 Refill(s) buPROPion Yes [id number] 100mg Take 1 U nivers 100 mg 3-27 tablet by ity of tablet 00:00: mouth 2 (two) Medical times Branch daily. propranoloL Yes [id number] 20mg Take 1 [facility] 20 mg 3-27 tablet by ity of tablet 00:00: mouth 2 (two) Medical times Branch daily. buPROPion Yes [id number] 100mg Take 1 U nivers 100 mg 3-27 tablet by ity of tablet 00:00: mouth 2 [place] (two) Medical times Branch daily. propranoloL 2020- Yes [id number] 20mg Take 1 [facility] 20 mg 3-27 tablet by ity of tablet 00:00: mouth 2 (two) Medical times Branch daily. buPROPion 2020-0 Yes [id number] 100mg Take 1 U nivers 100 mg 3-27 tablet by ity of tablet 00:00: mouth (two) Medical times Branch daily. propranoloL 2020-0 Yes [id number] 20mg Take 1 [facility] 20 mg 3-27 tablet by ity of tablet 00:00: mouth (two) Medical times Branch daily. buPROPion 2020-0 Yes [id number] 100mg Take 1 U nivers 100 mg 3-27 tablet by ity of tablet 00:00: mouth (two) Medical times Branch daily. propranoloL 2020-0 Yes [id number] 20mg Take 1 [facility] 20 mg 3-27 tablet by ity of tablet 00:00: mouth (two) Medical times Branch daily. buPROPion 2020-0 Yes [id number] 100mg Take 1 U nivers 100 mg 3-27 tablet by ity of tablet 00:00: mouth (two) Medical times Branch daily. propranoloL 2020-0 Yes [id number] 20mg Take 1 [facility] 20 mg 3-27 tablet by ity of tablet 00:00: mouth (two) Medical times Branch daily. Nexium 1-0 Yes PO, BID, 0 Memor ia 3-24 Refill(s) l 19:30: Benadryl 2020-0 Yes 25 mg, PO, Mem oria 3-24 TID, 0 l 19:30: Refill(s) Nexium 2020-0 Yes PO, BID, 0 Memor ia 3-24 Refill(s) l 19:30: Benadryl 2020-0 Yes 25 mg, PO, Mem oria 3-24 TID, 0 l 19:30: Refill(s) Nexium 1-0 Yes PO, BID, 0 Memor ia 3-24 Refill(s) l 19:30: Benadryl 2020-0 Yes 25 mg, PO, Mem oria 3-24 TID, 0 l 19:30: Refill(s) buPROPion 2020-0 Yes Oral for [facility] (WELLBUTRIN 3-12 90 [facility] ) 100 MG 00:00: Medical tablet 00 Center buPROPion Yes Oral for [facility] (WELLBUTRIN 3-12 90 [facility] ) 100 MG 00:00: Medical tablet 00 Center simvastatin Yes 20 mg = 1 M emoria 20 mg oral 2-25 tab, PO, l tablet 19:45: Bedtime, # Corine nn 00 90 tab, 1 Refill(s) Metformin Yes 1,000 mg, Mem oria 2-25 PO, BID, 0 l 19:45: Refill(s) [place] 00 gabapentin Yes 300 mg = 1 [...] mL 2-25 Refill(s) l oral and 19:45: [place] rectal 00 liquid Amylases Yes 3 cap, PO, Mem oria [id number] UNT / 2-25 TID, 0 l Endopeptida 19:45: Refill(s) [place] ermann [place] [id number] 00 UNT / Lipase [id number] UNT Enteric Coated Capsule [Creon 12] simvastatin [...] tab, PO, l tablet 19:45: Daily, # [place] 00 90 tab, 0 Refill(s) Diphenhydra Yes [...] Amylases Yes 3 cap, PO, Mem oria [id number] UNT / 2-25 TID, 0 l Endopeptida 19:45: Refill(s) H ermann ses [id number] 00 UNT / Lipase [id number] UNT Enteric Coated Capsule [Creon 12] simvastatin Yes 20 mg = 1 M emoria 20 mg oral 2-25 tab, PO, l tablet 19:45: Bedtime, # Corine nn 00 90 tab, 1 Refill(s) Metformin Yes 1,000 mg, Mem oria 2-25 PO, BID, 0 l 19:45: Refill(s) [place] 00 gabapentin Yes 300 mg = 1 [...] emoria 2-25 Daily, 0 l 19:45: Refill(s) [place] 00 propranolol Yes 20 mg = 1 [...] Amylases Yes 3 cap, PO, Mem oria [id number] UNT / 2-25 TID, 0 l Endopeptida 19:45: Refill(s) H ermann ses [id number] UNT / Lipase [id number] UNT Enteric Coated Capsule [Creon 12] lipase-prot 2019-0 Yes [id number] 1{capsu Take 1 [facility] ease-amylas 9-23 le} capsule by it y of e (CREON) 00:00: mouth 3 [place] 12,000-38,0 00 (three) Medic al 00 -60,000 times Branch unit daily with capsule meals. lipase-prot 2019-0 Yes [id number] 1{capsu Take 1 [facility] ease-amylas 9-23 le} capsule by it y of e (CREON) 00:00: mouth 3 [place] 12,000-38,0 00 (three) Medic al 00 -60,000 times Branch unit daily with capsule meals. lipase-prot 2020-0 Yes [id number] 1{capsu Take 1 [facility] ease-amylas 9-23 le} capsule by it y of e (CREON) 00:00: mouth 3 [place] 12,000-38,0 00 (three) Medic al 00 -60,000 times Branch unit daily with capsule meals. lipase-prot Yes [id number] 1{capsu Take 1 [facility] ease-amylas 9-23 le} capsule by it y of e (CREON) 00:00: mouth 3 [place] 12,000-38,0 00 (three) Medic al 00 -60,000 times Branch unit daily with capsule meals. lipase-prot Yes [id number] 1{capsu Take 1 [facility] ease-amylas 9-23 le} capsule by it y of e (CREON) 00:00: mouth 3 [place] 12,000-38,0 00 (three) Medic al 00 -60,000 times Branch unit daily with capsule meals. methocarbam Yes 750mg Q.5D Take 750 M [...] day with injection meals. lactulose Yes 10g Q.33152261 Take 10 g Methodi 10 gram/15 8-[id number] mL solution 16:59: [...] hours as needed for mild pain. traMADol 2016-0 Yes 50mg Q6H Take 50 mg Met [facility]odi (ULTRAM) 50 8-[address] mg tablet 16:59: every 6 Hospi ta 10 (six) l hours as needed for moderate pain. UNKNOWN TO 2016-0 Yes 1{tbl} QD Take 1 [facility] PATIENT 8-[address] 16:59: mouth [facility]ospita 10 nightly. l Cholestero l Medication metFORMIN 2016-0 Yes 1000mg Q.5D Take 1,000 [...] 16:59: mouth [facility]osp[facility] tablet 10 nightly. l metFORMIN 2016-0 Yes 1000mg Q.5D Take [...] 10 (two) l tablet times a day. metFORMIN 2016-0 Yes 1000mg Q.5D Take 1,000 [...] a (70-30) day with injection meals. lactulose 2015- Yes 10g Q.77800890 Take 10 g Methodi 10 gram/15 8-[id number] mL solution 11:59: 3D (three) Hos iban 10 times a l day. omeprazole Yes 20mg QD Take 20 mg M ethodi (PriLOSEC) 8-[address] 20 MG 11:59: daily. Hospita capsule 10 l multivitami Yes 1{tbl} QD Take 1 Me thodi [...] Hospita 10 nightly. l Cholestero l Medication insulin NPH 0 Yes 40U Q.5D Inject 40 M ethodi and regular 8-[address] human 11:59: under the Hospita (HumuLIN 10 skin 2 l 70/30) 100 (two) unit/mL times a (70-30) day with injection meals. lactulose Yes 10g Q.42135891 Take 10 g Methodi 10 gram/15 8-[id number] mouth [address] mL solution 11:59: 3D (three) Hos iban 10 times a l day. omeprazole Yes 20mg QD Take 20 mg M ethodi (PriLOSEC) 8-[address] 20 MG 11:59: daily. Hospita capsule 10 l multivitami Yes 1{tbl} QD Take 1 Me thodi [...] Hospita 10 nightly. l Cholestero l Medication Lisinopril Lisinopril No Lisinopril 5 MG 5 [...] 50 MG t_as_ne HCl 50 MG eded} Lactulose Lactulose 2022- No 15{ml_a QD Lactulose 10 GM/15ML 10 GM/15ML 06-05 s_neede 10 GM/15ML 00:00 d} :00 MagOx 400 MagOx 400 2022- No 1{table QD MagOx 400 400 (240 400 (240 06-05 t_with_ 400 (240 Mg) MG Mg) MG 00:00 food} Mg) MG :00 Methocarbam Methocarbam No BID Methocarba ol 750 MG ol 750 MG 06-05 mol 750 MG 00:00 :00 Xifaxan 550 Xifaxan 550 2021- No Xifaxan MG MG -17 550 MG 00:00 :00 Xifaxan 550 Xifaxan 550 2021- No Xifaxan MG MG -17 550 MG 00:00 :00 Methocarbam Methocarbam No Methocarba ol 750 MG ol 750 MG 05-12 mol 750 MG 00:00 :00 Methocarbam Methocarbam 2021- No Methocarba ol 750 MG ol 750 MG 05-12 mol 750 MG 00:00 :00 Immunizations Ordered Filled Date Status Comments Source Immunization Name Immunization Name Flucelvax - Flucelvax - 2021-08-15 Completed [facility] - multidose vial multidose vial 14:35:00 [facility] Flucelvax - Flucelvax - 2021-08-15 Completed [facility] - multidose vial multidose vial 14:35:00 [facility] Flucelvax - Flucelvax - 2021-08-15 Completed [facility] - multidose vial multidose vial 14:35:00 [facility] Flucelvax - Flucelvax - 2021-08-15 Completed [facility] - multidose vial multidose vial 14:35:00 [facility] Flucelvax - Flucelvax - 2021-08-15 Completed [facility] - multidose vial multidose vial 14:35:00 [facility] Flucelvax - Flucelvax - 2021-08-15 Completed [facility] - multidose vial multidose vial 14:35:00 [facility] Flucelvax - Flucelvax - 2021-08-15 Completed [facility] - multidose vial multidose vial 14:35:00 [facility] Flucelvax - Flucelvax - 2021-08-15 Completed [facility] - multidose vial multidose vial 14:35:00 [facility] Flucelvax - Flucelvax - 2021-08-15 Completed [facility] - multidose vial multidose vial 14:35:00 [facility] Flucelvax - Flucelvax - 2021-08-15 Completed [facility] - multidose vial multidose vial 14:35:00 [facility] Flucelvax - Flucelvax - 2021-08-15 Completed [facility] - multidose vial multidose vial 14:35:00 [facility] Flucelvax - Flucelvax - 2021-08-15 Completed [facility] - multidose vial multidose vial 14:35:00 [facility] Flucelvax - Flucelvax - 2021-08-15 Completed [facility] - multidose vial multidose vial 14:35:00 [facility] Flucelvax - Flucelvax - 2021-08-15 Completed [facility] - multidose vial multidose vial 14:35:00 [facility] Flucelvax - Flucelvax - 2021-08-15 Completed [facility] - multidose vial multidose vial 14:35:00 [facility] Flucelvax - Flucelvax - 2021-08-15 Completed [facility] - multidose vial multidose vial 14:35:00 [facility] Flucelvax - Flucelvax - 2021-08-15 Completed [facility] - multidose vial multidose vial 14:35:00 [facility] Flucelvax - Flucelvax - 2021-08-15 Completed [facility] - multidose vial multidose vial 14:35:00 [facility] Flucelvax - Flucelvax - 2021-08-15 Completed [facility] - multidose vial multidose vial 14:35:00 [facility] Flucelvax - Flucelvax - 2021-08-15 Completed [facility] - multidose vial multidose vial 14:35:00 [facility] Feliz SARS-CoV-2 2020-08-12 Completed Univer sity of Vaccination 00:00:00 [facility] SARS-COV-2 COVID-19 2020-08-12 Completed Unive rsity of FELIZ/J&J VACCINE 00:00:00 [facility] SARS-COV-2 COVID-19 2020-08-12 Completed Unive rsity of FELIZ/J&J VACCINE 00:00:00 [facility] SARS-COV-2 COVID-19 2020-08-12 Completed Unive rsity of FELIZ/J&J VACCINE 00:00:00 [facility] Influenza Virus 2016-02-15 Completed Universit y of Vaccine Quad IM 3+ 00:00:00 [facility] Influenza Virus 2016-02-15 Completed Universit y of Vaccine Quad IM 3+ 00:00:00 [facility] Influenza Virus 2016-02-15 Completed Universit y of Vaccine Quad IM 3+ 00:00:00 [facility] Pneumococcal 13 2016-01-26 Completed Universit y of Conjugate, PCV13 00:00:00 [facility] dical (Prevnar 13) Branch Pneumococcal 13 2016-01-26 Completed Universit y of Conjugate, PCV13 00:00:00 [facility] dical (Prevnar 13) Branch Pneumococcal 13 2016-01-26 Completed Universit y of Conjugate, PCV13 00:00:00 [facility] dical (Prevnar 13) Branch Feliz SARS-CoV-2 Unknown Completed Univer sity of Vaccination [facility] Pneumococcal 13 Unknown Completed Universit y of Conjugate, PCV13 [facility] dical (Prevnar 13) Branch Influenza Virus Unknown Completed Universit y of Vaccine Quad IM 3+ [facility] SARS-COV-2 COVID-19 Unknown Completed Unive rsity of FELIZ/J&J VACCINE [facility] Pneumococcal 13 Unknown Completed Universit y of Conjugate, PCV13 [facility] dical (Prevnar 13) Branch Influenza Virus Unknown Completed Universit y of Vaccine Quad IM 3+ [facility] SARS-COV-2 COVID-19 Unknown Completed Unive rsity of FELIZ/J&J VACCINE [facility] Vital Signs Vital Name Observation Time Observation Value Comments Source HEIGHT 2022-01-28 17:01:00 160 cm WEIGHT 2022-01-28 17:01:00 59.875 kg Systolic blood 2022-08-29 20:30:00 145 mm[Hg] Univer sity of pressure [facility] Diastolic blood 2022-08-29 20:30:00 88 mm[Hg] Unive rsity of pressure [facility] Heart rate 2022-08-29 20:30:00 75 /min Universi ty of [facility] Respiratory rate 2022-08-29 20:30:00 23 /min [facility] in 2022-08-29 20:30:00 99 /min [facility] Arterial blood by [facility] Pulse oximetry Branch Body temperature 2022-08-29 16:53:00 37.39 Mihaela [facility] height 2022-05-22 11:40:00 57.5 [in_i] Common [facility] weight 2022-05-22 11:40:00 132.6 [lb_av] Common [facility] temperature 2022-05-22 11:40:00 97.5 [degF] [facility] bmi 2022-05-22 11:40:00 28.19 kg/m2 [facility] oximetry 2022-05-22 11:40:00 94 % [facility] respiratory rate 2022-05-22 11:40:00 16 /min Comm on [facility] blood pressure 2022-05-22 11:40:00 123 mm[Hg] Common [facility] - systolic [facility] blood pressure 2022-05-22 11:40:00 78 mm[Hg] Common [facility] - diastolic [facility] height 2022-02-20 13:20:00 57.5 [in_i] Common [facility] weight 2022-02-20 13:20:00 132 [lb_av] [facility] temperature 2022-02-20 13:20:00 98.5 [degF] Common [facility] bmi 2022-02-20 13:20:00 28.07 kg/m2 [facility] oximetry 2022-02-20 13:20:00 96 % [facility] respiratory rate 2022-02-20 13:20:00 16 /min Comm on [facility] blood pressure 2022-02-20 13:20:00 126 mm[Hg] Common [facility] - systolic [facility] blood pressure 2022-02-20 13:20:00 72 mm[Hg] Common [facility] - diastolic [facility] HEIGHT 2022-01-28 17:01:00 160 cm WEIGHT 2022-01-28 17:01:00 59.875 kg height 2021-11-15 10:00:00 58 [in_i] [facility] weight 2021-11-15 10:00:00 134 [lb_av] [facility] temperature 2021-11-15 10:00:00 97.4 [degF] [facility] bmi 2021-11-15 10:00:00 28 kg/m2 [facility] oximetry 2021-11-15 10:00:00 97 % [facility] respiratory rate 2021-11-15 10:00:00 16 /min Comm on [facility] blood pressure 2021-11-15 10:00:00 126 mm[Hg] Common [facility] - systolic [facility] blood pressure 2021-11-15 10:00:00 70 mm[Hg] Common [facility] - diastolic [facility] height 2021-10-12 16:20:00 58 [in_i] Common [facility] weight 2021-10-12 16:20:00 128.8 [lb_av] [facility] temperature 2021-10-12 16:20:00 98.3 [degF] Common [facility] bmi 2021-10-12 16:20:00 26.92 kg/m2 [facility] oximetry 2021-10-12 16:20:00 96 % Common [facility] respiratory rate 2021-10-12 16:20:00 16 /min Comm on [facility] blood pressure 2021-10-12 16:20:00 128 mm[Hg] Common [facility] - systolic [facility] blood pressure 2021-10-12 16:20:00 62 mm[Hg] Common [facility] - diastolic [facility] HEIGHT 2021-10-02 10:40:00 147.3 cm WEIGHT 2021-10-02 10:40:00 60.238 kg HEIGHT 2021-10-02 10:40:00 147.3 cm WEIGHT 2021-10-02 10:40:00 60.238 kg height 2021-09-11 15:00:00 58 [in_i] [facility] weight 2021-09-11 15:00:00 135.8 [lb_av] [facility] temperature 2021-09-11 15:00:00 97.5 [degF] [facility] bmi 2021-09-11 15:00:00 28.38 kg/m2 [facility] oximetry 2021-09-11 15:00:00 98 % [facility] respiratory rate 2021-09-11 15:00:00 16 /min Comm on [facility] blood pressure 2021-09-11 15:00:00 121 mm[Hg] Common [facility] - systolic [facility] blood pressure 2021-09-11 15:00:00 67 mm[Hg] Common [facility] - diastolic [facility] HEIGHT 2021-09-04 22:09:00 149.9 cm WEIGHT 2021-09-04 22:09:00 58.968 kg HEIGHT 2021-09-04 22:09:00 149.9 cm WEIGHT 2021-09-04 22:09:00 58.968 kg height 2021-08-15 13:00:00 58 [in_i] Common [facility] weight 2021-08-15 13:00:00 136.2 [lb_av] [facility] temperature 2021-08-15 13:00:00 97.8 [degF] [facility] bmi 2021-08-15 13:00:00 28.46 kg/m2 [facility] oximetry 2021-08-15 13:00:00 95 % [facility] respiratory rate 2021-08-15 13:00:00 16 /min Comm on [facility] blood pressure 2021-08-15 13:00:00 126 mm[Hg] Common [facility] - systolic [facility] blood pressure 2021-08-15 13:00:00 67 mm[Hg] Common [facility] - diastolic [facility] height 2021-08-15 13:40:00 58 [in_i] Common [facility] weight 2021-08-15 13:40:00 136.2 [lb_av] [facility] temperature 2021-08-15 13:40:00 97.8 [degF] [facility] bmi 2021-08-15 13:40:00 28.46 kg/m2 [facility] blood pressure 2021-08-15 13:40:00 126 mm[Hg] [facility] blood pressure 2021-08-15 13:40:00 67 mm[Hg] [facility] - diastolic [facility] HEIGHT 2021-08-12 16:10:00 149.9 cm WEIGHT 2021-08-12 16:10:00 61.5 kg HEIGHT 2021-08-12 16:10:00 149.9 cm WEIGHT 2021-08-12 16:10:00 61.5 kg height 2021-07-18 10:40:00 58 [in_i] [facility] weight 2021-07-18 10:40:00 129.4 [lb_av] [facility] temperature 2021-07-18 10:40:00 97.2 [degF] [facility] bmi 2021-07-18 10:40:00 27.04 kg/m2 [facility] oximetry 2021-07-18 10:40:00 97 % [facility] respiratory rate 2021-07-18 10:40:00 18 /min Comm on [facility] blood pressure 2021-07-18 10:40:00 142 mm[Hg] Common [facility] - systolic [facility] blood pressure 2021-07-18 10:40:00 84 mm[Hg] [facility] - diastolic [facility] HEIGHT 2021-07-03 08:58:00 147.3 cm WEIGHT 2021-07-03 [...] kg Systolic blood 2022-06-29 19:30:00 120 mm[Hg] [facility] Diastolic blood 2022-06-29 19:30:00 92 mm[Hg] [facility] Heart rate 2022-06-29 19:30:00 87 /min [facility] Respiratory rate 2022-06-29 19:30:00 14 /min [facility] Oxygen saturation in 2022-06-29 19:30:00 97 /min [facility] Arterial blood by Medical Ce [facility]ter Pulse oximetry Body temperature 2022-06-29 14:50:00 36.94 Mihaela [facility] Body height 2022-06-29 14:50:00 149.9 cm [facility] Body weight 2022-06-29 14:50:00 61.236 kg [facility] BMI 2022-06-29 14:50:00 27.27 kg/m2 [facility] Systolic (mm Hg) 2021-06-29 20:55:00 José Miguel rial García Diastolic (mm Hg) 2021-06-29 20:55:00 [facility] [place] Heart Rate 2021-06-29 20:55:00 [facility] Respitory Rate 2021-06-29 20:55:00 [facility] Height 2021-06-29 20:55:00 147.32 cm [facility] Weight 2021-06-29 20:55:00 [facility] BMI Calculated 2021-06-29 20:55:00 [facility] Systolic (mm Hg) 2020-12-27 16:28:00 José Miguel rial [place] Diastolic (mm Hg) 2020-12-27 16:28:00 [facility] [place] Heart Rate 2020-12-27 16:28:00 [facility] [place] Respitory Rate 2020-12-27 16:28:00 [facility] Height 2020-12-27 16:28:00 147.32 cm [facility] [place] Weight 2020-12-27 16:28:00 [facility] García BMI Calculated 2020-12-27 16:28:00 [facility] Systolic blood 2020 11:18:00 129 mm[Hg] [facility] Diastolic blood 2020 11:18:00 68 mm[Hg] [facility] Body temperature 2020 11:18:00 36.39 Mihaela [facility] Respiratory rate 2020 11:18:00 86 /min [facility] Oxygen saturation in 2020 11:18:00 99 /min [facility] Arterial blood by Medical Ce [facility]ter Pulse oximetry Heart rate 2020 07:22:00 93 /min [facility] Body height 2020-12-21 14:23:00 147.3 cm [facility] Body weight 2020-12-21 14:23:00 57.153 kg [facility] BMI 2020-12-21 14:23:00 26.33 kg/m2 [facility] Systolic (mm Hg) 2020-11-15 15:02:00 José Miguel [facility] [place] Diastolic (mm Hg) 2020-11-15 15:02:00 [facility] [place] Heart Rate 2020-11-15 15:02:00 [facility] Respitory Rate 2020-11-15 15:02:00 [facility] Height 2020-11-15 15:02:00 147.32 cm [facility] [place] Weight 2020-11-15 15:02:00 [facility] BMI Calculated 2020-11-15 15:02:00 [facility] [place] Systolic (mm Hg) 2020-10-23 19:04:00 José Miguel [facility] Diastolic (mm Hg) 2020-10-23 19:04:00 [facility] Heart Rate 2020-10-23 19:04:00 [facility] [place] Height 2020-10-23 19:04:00 149.86 cm [facility] Weight 2020-10-23 19:04:00 [facility] [place] BMI Calculated 2020-10-23 19:04:00 [facility] [place] Height 2020-08-28 16:36:00 147.32 cm [facility] Weight 2020-08-28 16:36:00 [facility] [place] BMI Calculated 2020-08-28 16:36:00 [facility] Systolic (mm Hg) 2020-08-28 16:36:00 José Miguel [facility] Diastolic (mm Hg) 2020-08-28 16:36:00 [facility] [place] Heart Rate 2020-08-28 16:36:00 [facility] [place] Systolic (mm Hg) 2020-08-23 19:19:00 José Miguel [facility] [place] Diastolic (mm Hg) 2020-08-23 19:19:00 [facility] Heart Rate 2020-08-23 19:19:00 [facility] Respitory Rate 2020-08-23 19:19:00 [facility] [place] Height 2020-08-23 19:19:00 147.32 cm [facility] Weight 2020-08-23 19:19:00 [facility] BMI Calculated 2020-08-23 19:19:00 [facility] [place] Procedures Procedure Date / Time Performing Source Performed Clinician AC PANEL 21 + LACTIC ACID 2022-08-29 Khoi Kwaner sity of 17:40:00 [facility] LIPASE 2022-08-29 Khoi Kwan [place] of 17:38:00 [facility] COMP. METABOLIC PANEL (47832) 2022-08-29 Khoi Kwan iversity of 17:38:00 [facility] CBC WITH DIFF 2022-08-29 Khoi Kwan [place] of 17:38:00 [facility] URINALYSIS 2022-08-29 Khoi Kwan [place] of 17:38:00 [facility] URINE DRUG (IMMUNOASSAY) - 2022-08-29 Khoi Kwan [facility] rsity of COMPREHENSIVE DRUG SCREEN W/O 17:38:00 Te [facility] CONSENT/REFUSAL FOR DIAGNOSIS AND 2022-08-29 [facility] TREATMENT 16:44:59 Unassigned, No [facility] COMPREHENSIVE METABOLIC PANEL 2022-06-29 [facility] Siddiqui [facility] 17:[facility]:00 [facility] CBC W/PLT COUNT & AUTO 2022-06-[address] [facility] DIFFERENTIAL 16:28:00 [facility] PT/APTT 2022-06-[address] [facility] 16:28:00 [facility] CBC W/PLT COUNT & AUTO 2022-06-[address] [facility] DIFFERENTIAL 16:28:00 [facility] XR FOOT 3 VIEWS LEFT 2022-02-[address] [facility] 19:25:00 [facility] BASIC METABOLIC PANEL 2022-02-[address] [facility] 18:46[facility] [facility] CBC W/PLT COUNT & AUTO 2022-02-[address] [facility] DIFFERENTIAL 18:46:00 [facility] B-TYPE NATRIURETIC FACTOR (BNP) 2022-02-[address] [facility] 18:46:00 [facility] HIGH SENSITIVITY TROPONIN I 2022-02-[address] [facility] 18:46:00 [facility] LIPASE 2022-02-[address] [facility] 18:46:00 [facility] HEPATIC FUNCTION PANEL 2022-02-[address] [facility] 18:46:00 [facility] PT/APTT 2022-02-15 Ministerio, Steven M [facility] 18:46:00 [facility] PROTHROMBIN TIME/INR 2022-02-[address] 18:46:00 [facility] CBC W/PLT COUNT & AUTO 2022-02-[address] [facility] DIFFERENTIAL 18:46:00 [facility] ECG 12-LEAD 2022-02-[address] [facility] 18:39:22 [facility] EKG-SCANNED 2022-02-[address] [facility] 00:00:[address] [facility] CBC W/PLT COUNT & AUTO 2022-02-01 Adio, Titilola [facility] DIFFERENTIAL 04:09:00 [facility] HEMOGLOBIN A1C 2022-02-01 Adio, Titilola R [facility] 04:09:00 [facility] CBC W/PLT COUNT & AUTO 2022-02-01 Adio, Titilola R [facility] DIFFERENTIAL 04:09:00 [facility] POCT-GLUCOSE METER 2022-01-31 Adio, Titilola R [facility] 22:09:00 [facility] CBC W/PLT COUNT & AUTO 2022-01-31 Adio, Titilola R [facility] DIFFERENTIAL 15:45:00 [facility] CBC W/PLT COUNT & AUTO 2022-01-31 Adio, Titilola R [facility] DIFFERENTIAL 15:45:00 [facility] REPORT OF PROCEDURE - ENDOSCOPY 2022-01-[address] [facility] URL 10:59:58 [facility] REPORT OF PROCEDURE - ENDOSCOPY 2022-01-[address] [facility] URL 10:50:17 [facility] EGD, WITH VARICEAL BANDING 2022-01-[address] [facility] 09:53:00 [facility] SIGMOIDOSCOPY 2022-01-[address] [facility] 09:53:00 [facility] POCT-GLUCOSE METER 2022-01-31 Adio, Titilola R [facility] 09:52:00 [facility] US ABDOMEN LIMITED 2022-01-[address] [facility] 15:44:00 [facility] CBC W/PLT COUNT & AUTO 2022-01-[address] [facility] DIFFERENTIAL 04:56:00 [facility] COMPREHENSIVE METABOLIC PANEL 2022-01-30 [address] [facility] 04:56:00 [facility] PROTHROMBIN TIME/INR 2022-01-[address] [facility] 04:56:00 [facility] CBC W/PLT COUNT & AUTO 2022-01-[address] [facility] DIFFERENTIAL 04:56:00 [facility] BLOOD CULTURE 2022-01-[address] [facility] 20:03:00 [facility] BLOOD CULTURE 2022-01-29 Dadlani, Apaar [facility] 19:50:00 [facility] XR CHEST 1 VIEW PORTABLE / BEDSIDE 2022-01-29 Claudi[address] r [facility] 17:23:00 [facility] CTA ABDOMEN & PELVIS 2022-01-[address] [facility] 13:20:00 [facility] BASIC METABOLIC PANEL 2022-01-[address] 04:44:00 [facility] CBC W/PLT COUNT & AUTO 2022-01-[address] [facility] DIFFERENTIAL 04:44:00 [facility] IRON, TIBC, % SAT. (WITHOUT 2022-01-[address] [facility] FERRITIN) 04:44:00 [facility] FERRITIN 2022-01-[address] [facility] 04:44:00 [facility] VITAMIN B12 2022-01-[address] [facility] 04:44:00 [facility] CBC W/PLT COUNT & AUTO 2022-01-[address] [facility] DIFFERENTIAL 04:44:00 [facility] SARS-COV2/RT-PCR ([facility]) 2022-01-[address] [facility] 20:39:00 [facility] LACTIC ACID, VENOUS 2022-01-[address] [facility] 20:38:00 [facility] BLOOD CULTURE 2022-01-[address] [facility] 17:22:00 [facility] CBC W/PLT COUNT & AUTO 2022-01-[address] [facility] DIFFERENTIAL 17:20:00 [facility] LACTIC ACID, VENOUS 2022-01-[address] [facility] 17:20:00 [facility] COMPREHENSIVE METABOLIC PANEL 2022-01-[address] [facility] 17:20:00 [facility] PROTHROMBIN TIME/INR 2022-01-[address] [facility] 17:20:00 [facility] APTT 2022-01-[address] [facility] 17:20:00 [facility] CBC W/PLT COUNT & AUTO 2022-01-[address] DIFFERENTIAL 17:20:00 [facility] PREPARE LEUKO-REDUCED PLATELETS [address] [facility] 23:54:00 [facility] PREPARE LEUKO-REDUCED RBC [address] [facility] 14:17:00 [facility] CBC W/PLT COUNT & AUTO 2020 Savannahunigumalathi, [facility] DIFFERENTIAL 05:50:00 [facility] COMPREHENSIVE METABOLIC PANEL 2020 Savannahunigumalathi, [facility] 05:50:00 [facility] PROTHROMBIN TIME/INR 2020 Civunigunta, [facility] 05:50:00 [facility] POCT-GLUCOSE METER 2020-12-23 Civunigunta, [facility] 21:16:00 [facility] POCT-GLUCOSE METER 2020-12-23 Civun[place]un[place], [facility] 16:20:00 [facility] REPORT OF PROCEDURE - ENDOSCOPY 2020-12-[address] [facility] URL 15:42:28 [facility] REPORT OF PROCEDURE - ENDOSCOPY 2020-12-[address] [facility] URL 15:19:48 [facility] COLONOSCOPY 2020-12-[address] [facility] 13:35:00 [facility] ESOPHAGOGASTRODUODENOSCOPY 2020-12-23 Hernando Spencer [facility] (EGD),REMOVAL FOREIGN BODY 13:35:00 [facility] TRANSFUSE LEUKO-REDUCED PLATELETS 2020-12-[address] [facility] 12:42:33 [facility] TYPE AND SCREEN, AUTOMATED 2020-12-23 [facility] 08:04:00 [facility] HEMOGLOBIN AND HEMATOCRIT 2020-12-23 Civundarrennta, [facility] 05:00:00 [facility] CBC W/PLT COUNT & AUTO 2020-12-23 [facility] DIFFERENTIAL 05:00:00 [facility] COMPREHENSIVE METABOLIC PANEL 2020-12-23 [facility] 05:00:00 [facility] PROTHROMBIN TIME/INR 2020-12-23 [facility], [facility] 05:00:00 [facility] MAGNESIUM 2020-12-23 [facility] 05:00:00 [facility] HEMOGLOBIN AND HEMATOCRIT 2020-12-22 [facility] 18:17:00 [facility] POCT-GLUCOSE METER 2020-12-[address] [facility] 05:27:00 [facility] SARS-COV2/RT-PCR ([facility]) 2020-12-[address] [facility] 05:26:00 [facility] CBC W/PLT COUNT & AUTO 2020-12-22 Jose, [facility] DIFFERENTIAL 03:59:00 [facility] BASIC METABOLIC PANEL (7) 2020-12-22 Jose, [facility] 03:59:00 [facility] HEPATIC FUNCTION PANEL 2020-12-22 Jose, [facility] 03:59:00 [facility] PHOSPHORUS 2020-12-22 Jose, [facility] 03:59:00 [facility] MAGNESIUM 2020-12-22 Jose, [facility] 03:59:00 [facility] [facility] POCT-GLUCOSE METER 2020-12-[address] [facility] [facility] LACTIC ACID, VENOUS 2020-12-[address] [facility] 19:03:[address] [facility] PROTHROMBIN TIME/INR 2020-12-[address] [facility] [facility] APTT 2020-12-[address] [facility] 19[facility]03:[address] [facility] AMMONIA 2020-12-[address] [facility] 19[facility]03:[address] [facility] BLOOD CULTURE 2020-12-[address] [facility] 19:02:[address] [facility] BASIC METABOLIC PANEL (7) 2020-12-21 [facility] [facility] HEPATIC FUNCTION PANEL 2020-12-[address] [facility] [facility] CBC W/PLT COUNT & AUTO 2020-12-[address] [facility] DIFFERENTIAL 15:52:[address] [facility] BASIC METABOLIC PANEL (7) 2020-12-20 Plaza, Line [facility] 11:59:00 [facility] HEPATIC FUNCTION PANEL 2020-12-20 Plaza[facility] 11:59:00 [facility] CBC W/PLT COUNT & AUTO 2020-12-20 Plaza, Line [facility] DIFFERENTIAL 11:59:00 [facility] PROTHROMBIN TIME/INR 2020-12-20 Plaza, Line [facility] 11:59:00 [facility] POCT-GLUCOSE METER 2020-12-13 Cleveland Nerig-Courtney [facility] 16:31:00 [facility] POCT-GLUCOSE METER 2020-12-13 Halle Fang-Courtney [facility] 11:41:00 [facility] POCT-GLUCOSE METER 2020-12-13 Halle Fang-Courtney [facility] 07:14:00 [facility] CALCIUM, IONIZED 2020-12-[address] [facility] 03:35:00 [facility] COMPREHENSIVE METABOLIC PANEL 2020-12-[address] [facility] 03:[facility]00 [facility] MAGNESIUM 2020-12-13 Jung, Morgan [facility] 03:35:00 [facility] PHOSPHORUS 2020-12-[address] [facility] 03:35:00 [facility] Center CBC W/PLT COUNT & AUTO 2020-12-[address] [facility] DIFFERENTIAL 03:35:00 [facility] POCT-GLUCOSE METER 2020-12-[address] [facility] 22:16:00 [facility] POCT-GLUCOSE METER 2020-12-[address] [facility] 16:51:00 [facility] HEMOGLOBIN AND HEMATOCRIT 2020-12-12 Ajith, Nejmudin [facility] 15:58:00 [facility] POCT-GLUCOSE METER 2020-12-[address] [facility] 11:39:00 [facility] POCT-GLUCOSE METER 2020-12-[address] [facility] 08:06:00 [facility] CALCIUM, IONIZED 2020-12-[address] [facility] 03:34:00 [facility] COMPREHENSIVE METABOLIC PANEL 2020-12-[address] [facility] 03:34:00 [facility] MAGNESIUM 2020-12-[address] [facility] 03:34:00 [facility] PHOSPHORUS 2020-12-[address] [facility] 03:34:00 [facility] Center CBC W/PLT COUNT & AUTO 2020-12-[address] [facility] DIFFERENTIAL 03:34:00 [facility] PREPARE LEUKO-REDUCED RBC 2020-12-[address] [facility] 23:54:00 [facility] PREPARE LEUKO-REDUCED PLATELETS 2020-12-11 Ajith, Nejmudin [facility] 23:54:00 [facility] POCT-GLUCOSE METER 2020-12-[address] [facility] 21:46:00 [facility] HEMOGLOBIN AND HEMATOCRIT 2020-12-[address] [facility] 18:15:00 [facility] POCT-GLUCOSE METER 2020-12-[address] [facility] 17:50:00 [facility] HEPATITIS B E ANTIGEN 2020-12-[address] [facility] 14:50:00 [facility] HEPATITIS B E ANTIBODY 2020-12-[address] [facility] 14:49:00 [facility] HEPATITIS B SURFACE ANTIBODY 2020-12-[address] [facility] 14:49:00 [facility] POCT-GLUCOSE METER 2020-12-[address] [facility] 12:02:00 [facility] POCT-GLUCOSE METER 2020-12-[address] [facility] 07:59:00 [facility] ACTIN (SMOOTH MUSCLE) ANTIBODY, 2020-12-[address] [facility] IGG 05:11:00 [facility] ANTI-MITOCHONDRIAL AB, REFLEX TO 2020-12-[address] [facility] TITER 05:11:00 [facility] CALCIUM, IONIZED 2020-12-[address] [facility] 05:11:00 [facility] COMPREHENSIVE METABOLIC PANEL 2020-12-[address] [facility]00 [facility] MAGNESIUM 2020-12-[address] [facility] 05:11:00 [facility] PHOSPHORUS 2020-12-[address] [facility] 05:11:00 [facility] CBC W/PLT COUNT & AUTO 2020-12-[address] [facility] DIFFERENTIAL 05:11:00 [facility] MITOCHONDRIAL AB SCREEN 2020-12-[address] [facility] 05:11:00 [facility] MITOCHONDRIAL AB TITER 2020-12-[address] [facility] 05:11:00 [facility] TRANSFUSE LEUKO-REDUCED PLATELETS 2020-12-[address] [facility] 01:55:57 [facility] PREPARE LEUKO-REDUCED PLATELETS 2020-12-[address] [facility] 23:54:00 [facility] HEMOGLOBIN AND HEMATOCRIT 2020-12-[address] [facility] 23:37:00 [facility] POCT-GLUCOSE METER 2020-12-[address] [facility] 21:39:00 [facility] POCT-GLUCOSE METER 2020-12-[address] [facility] 16:25:00 [facility] REPORT OF PROCEDURE - ENDOSCOPY 2020-12-[address] [facility] URL 16:01:18 [facility] UPPER ENDOSCOPY,BANDING 2020-12-[address] [facility] [facility] 15:28:00 [facility] CBC W/PLT COUNT & AUTO 2020-12-[address] [facility] DIFFERENTIAL 13:31:00 [facility] TRANSFUSE LEUKO-REDUCED RED BLOOD 2020-12-10 Ajith Miguel yoo [facility] CELLS 13:23:55 [facility] POCT-GLUCOSE METER 2020-12-[address] [facility] 11:33:00 [facility] POCT-GLUCOSE METER 2020-12-[address] [facility] 07:09:00 [facility] PROTHROMBIN TIME/INR 2020-12-[address] [facility] 05:12:00 [facility] COMPREHENSIVE METABOLIC PANEL 2020-12-[address] [facility] 05:12[facility]00 [facility] HEMOGLOBIN A1C 2020-12-[address] [facility] 05:12:00 [facility] CALCIUM, IONIZED 2020-12-[address] [facility] 05:12:00 [facility] MAGNESIUM 2020-12-[address] [facility] 05:12:00 [facility] PHOSPHORUS 2020-12-[address] [facility] 05:12:00 [facility] CBC W/PLT COUNT & AUTO 2020-12-[address] [facility] DIFFERENTIAL 05:12:00 [facility] TRANSFUSE LEUKO-REDUCED PLATELETS 2020-12-[address] [facility] 01:43:15 [facility] POCT-GLUCOSE METER 2020-12-[address] [facility] 23:28:00 [facility] US ABDOMINAL WITH DOPPLER 2020-12-[address] [facility] 23:15:00 [facility] ABORH, MANUAL 2020-12-[address] [facility] 20:12:00 [facility] HEMOGLOBIN AND HEMATOCRIT 2020-12-09 Odilia, [facility]a [facility] TYPE AND SCREEN, AUTOMATED 2020-12-09 Odilia, Asha [facility] 19:01:00 [facility] BLOOD CULTURE 2020-12-09 Joesph, Tesfai [facility] 17:17:00 [facility] URINE CULTURE 2020-12-09 Joesph, Tesfai [facility] 17:13:00 [facility] URINALYSIS W/ REFLEX URINE CULTURE 2020-12-09 Joesph, Tesfai [facility] 17:13:00 [facility] AMMONIA 2020-12-09 Odilia, Asha [facility] 17:10:00 [facility] BLOOD CULTURE 2020-12-09 Joesph, Tesfai [facility] 17:09:00 [facility] HC LAB HIV-1 AG W/HIV-1&2 AB 2020-12-09 Joesph, Tesfai [facility] 17:09:00 [facility] [id number]\\, SERUM 2020-12-09 Joesph, Tesfai [facility] 17:09:00 [facility] ANTI-NUCLEAR ANTIBODY (AARON) 2020-12-09 Joesph, Tesfai [facility] 17:09:00 [facility] HEPATITIS A ANTIBODY, IGG 2020-12-09 Joesph, Tesfai [facility] 17:09:00 [facility] DRUG SCREEN, URINE, TRANSPLANT 2020-12-09 Joesph, Tesdaniellei [facility] 15:30:00 [facility] MISCELLANEOUS LAB ORDER 2020-12-09 Joesph, Tesfai [facility] 15:22:00 [facility] CBC W/PLT COUNT & AUTO 2020-12-09 Odilia, Asha [facility] DIFFERENTIAL 15:21:00 [facility] COMPREHENSIVE METABOLIC PANEL 2020-12-[address] [facility] 15[facility]00 [facility] HEPATITIS B CORE ANTIBODY, TOTAL 2020-12-09 Joesph, Tesfai [facility] 15:21:00 [facility] HEPATITIS C PCR, QUANTITATIVE 2020-12-09 Joesph, [facility]fai [facility] 15:21:00 [facility] HEPATITIS PANEL, ACUTE 2020-12-09 Joesph, [facility]fai [facility] 15:21:00 [facility] HEPATITIS B PCR, QUANTITATIVE 2020-12-09 Joesph, [facility]fai [facility] 15:21:00 [facility] CARCINOEMBRYONIC ANTIGEN (CEA) 2020-12-09 Joesph, Tesfai [facility] 15:21:00 [facility] CERULOPLASMIN 2020-12-09 Joesph, Tesfai [facility] 15:21:00 [facility] COPPER 2020-12-09 Joesph, Tesfai [facility] 15:21:00 [facility] FERRITIN 2020-12-09 Joesph, Tesfai [facility] 15:21:00 [facility] ACETAMINOPHEN LEVEL 2020-12-09 Joesph, Tesfai [facility] 15:21:00 [facility] ALPHA FETOPROTEIN (AFP), TUMOR 2020-12-09 Joesph, Tesfai [facility]ER 15:21:00 [facility] CARBOHYDRATE ANTIGEN 19-9 (CA 2020-12-09 Joesph, Tesfai [facility] 19-9) 15:21:00 [facility] VITAMIN D, 25-HYDROXY 2020-12-09 Joesph, Tesfai [facility] 15:21:00 [facility] ZINC 2020-12-09 Joesph, Tesfai [facility] 15:21:00 [facility] IRON, TIBC, % SAT. (WITHOUT 2020-12-09 Joesph, Tesfai [facility] FERRITIN) 15:21:00 [facility] Arthroscopy [facility] section [facility] Plan of Care Planned Activity Planned Date Details Comments Source Future Scheduled 2030-12-[address] [facility] 00:00:00 [facility] of [facility] colon (procedure) [code = 985636832] Future Scheduled 2030-12-[address] [facility] Test 00:00:00 [facility] colon (procedure) [code = 462706361] Future Scheduled 2030-12-[address] [facility] Test 00:00:00 [facility] colon (procedure) [code = 485866827] Future Scheduled 2030-12-[address] [facility] Test 00:00:00 malignant [facility] colon (procedure) [code = 042172052] Future Scheduled 2030-12-[address] [facility] 00[facility]00:00 [facility] (procedure) [code = 401017884] Future Scheduled 2024-04-[address] [facility] Test 00[facility]00:00 (procedure) [code = [facility] 08588596] Future Scheduled 2024-04-[address] [facility] Test 00:00:00 (procedure) [code = [facility] 30970152] Future Scheduled 2023-02-17 [facility] 07:04:15 malignant neoplasm of colon (procedure) [code = 642735400] Future Scheduled 2023-02-17 [facility] Test 07:04:15 malignant neoplasm of colon (procedure) [code = 538779311] Future Scheduled 2023-02-17 [facility] Test 07:04:15 malignant neoplasm of colon (procedure) [code = 983210986] Future Scheduled 2023-02-17 COVID-19 VACCINE (#1) [facility] Test 07:04:15 [code = COVID-19 VACCINE (#1)] Future Scheduled 2023-02-17 [facility] Test 07:04:15 malignant neoplasm of cervix (procedure) [code = 078026739] Future Scheduled 2023-02-17 BREAST CANCER [facility] 07:04:15 SCREENING [code = BREAST CANCER SCREENING] Future Scheduled 2023-02-17 [facility] 07:04:15 malignant neoplasm of colon (procedure) [code = 921314817] Future Scheduled 2023-02-17 [facility] 07:04:15 malignant neoplasm of colon (procedure) [code = 659580966] Future Scheduled 2023-02-17 SHINGLES VACCINES (1 [facility] 07:04:15 of 2) [code = SHINGLES VACCINES (1 of 2)] Future Scheduled 2023-02-17 INFLUENZA [facility]ACCINE (#[facility]) [facility] 07:04[facility]15 [code = INFLUENZA VACCINE (#1)] Future Scheduled 2023-01-31 Influenza Vaccine (#1) [facility] 00:00:00 [code = Influenza Medical Ce nter Vaccine (#1)] Future Scheduled 2023-01-31 Influenza Vaccine (#1) [facility] 00:00:00 [code = Influenza Medical Ce nter Vaccine (#1)] Future Scheduled 2023-01-01 [facility] 21:32:06 malignant neoplasm of colon (procedure) [code = 887252198] Future Scheduled 2023-01-01 [facility] 21:32:06 malignant neoplasm of colon (procedure) [code = 141871252] Future Scheduled 2023-01-01 [facility] Test 21:32:06 malignant neoplasm of colon (procedure) [code = 939818980] Future Scheduled 2023-01-01 COVID-19 VACCINE (#1) [facility] Hospital Test 21:32:06 [code = COVID-19 VACCINE (#1)] Future Scheduled 2023-01-01 [facility] 21:32:06 malignant neoplasm of cervix (procedure) [code = 099336892] Future Scheduled 2023-01-01 BREAST CANCER [facility] 21:32:06 SCREENING [code = BREAST CANCER SCREENING] Future Scheduled 2023-01-01 [facility] 21:32:06 malignant neoplasm of colon (procedure) [code = 064037006] Future Scheduled 2023-01-01 [facility] 21:32:06 malignant neoplasm of colon (procedure) [code = 274804695] Future Scheduled 2023-01-01 SHINGLES VACCINES ([address] [facility] Hospital Test 21:32:06 of 2) [code = SHINGLES VACCINES (1 of 2)] Future Scheduled 2023-01-01 ZZZ IN[address]UENZA VACCINE [facility] Hospital Test 21:32:06 [code = ZZZ INFLUENZA VACCINE] Future Scheduled 2022-06-[address] [facility] Test 00:00:00 (12+) [code = Medical Center DEPRESSION SCREENING (12+)] Future Scheduled 2022-06-[address] [facility] Test 00:00:00 (12+) [code = Medical Center DEPRESSION SCREENING (12+)] Future Scheduled 2021-10-[address] [facility] 00:[facility]:00 measurement Medical Center (procedure) [code = 33937173] Future Scheduled 2021-10-[address] [facility] 00:00:00 measurement Medical Center (procedure) [code = 37244541] Future Scheduled 2021-10-[address] [facility] Test 00:00:00 WELLNESS (YEAR 2 or Medical Center FIRST YEAR if no IPPE) [code = MEDICARE ANNUAL WELLNESS (YEAR 2 or FIRST YEAR if no IPPE)] Future Scheduled 2021-10-[address] [facility] Test 00:00:00 WELLNESS (YEAR 2 or Medical Center FIRST YEAR if no IPPE) [code = MEDICARE ANNUAL WELLNESS (YEAR 2 or FIRST YEAR if no IPPE)] Future Scheduled 2021-08-[address] [facility] Test 00:00:00 Counseling and Medical Cente r Screening (12+) [code = Tobacco Cessation Counseling and Screening (12+)] Future Scheduled 2021-08-[address] [facility] Test 00:00:00 Counseling and Medical Cente r Screening (12+) [code = Tobacco Cessation Counseling and Screening (12+)] Future Scheduled 2021-01-31 INFLUENZA VACCINE (#1) [facility] 00:00:00 [code = INFLUENZA Medical Ce nter VACCINE (#1)] Future Scheduled 2020-10-[address] [facility] Test 00:00:00 (procedure) [code = Medical Center 98786956] Future Scheduled 2020-10-07 COVID-19 VACCINE (2 - [facility]00 Booster for Feliz [facility] series) [code = COVID-19 VACCINE (2 - Booster for Feliz series)] Future Scheduled 2020-10-07 COVID-19 VACCINE (2 - [facility] 00:00:00 Booster for Feliz [facility] series) [code = COVID-19 VACCINE (2 [...] PPSV23 if available, else PCV20)] Future Scheduled 2016-03-22 Pneumococcal Vaccine: [facility] 00:00:00 0-64 Years (2 - PPSV23 Medic al Center if available, else PCV20) [code = Pneumococcal Vaccine: 0-64 Years (2 - PPSV23 if available, else PCV20)] Future Scheduled 1988-12-[address] [facility] 00:00:00 malignant neoplasm of [facility]ica [facility] Center cervix (procedure) [code = 482072742] Future Scheduled 1988-12-[address] [facility] Test 00:00:00 malignant neoplasm of [facility] Center cervix (procedure) [code = 038954064] Future Scheduled 1988-12-[address] [facility] Test 00:00:00 malignant neoplasm of [facility] Center cervix (procedure) [code = 391796621] Future Scheduled 1986-12-23 DTAP/TDAP/TD VACCINES CH I [...] 00:00:00 examination Medical Center (regime/therapy) [code = 168885367] Future Scheduled 1977-12-23 Urine screening [facility] Test 00:00:00 protein (procedure) Medical Center [code = 443320590] Future Scheduled 1977-12-[address] EXAM [facility] Test 00:00:00 [code = DIABETIC EYE Medical Center EXAM] Future Scheduled 1977-12-[address] [facility] Test 00:00:00 examination Medical Center (regime/therapy) [code = 141302473] Future Scheduled 1977-12-23 Urine screening for [facility] Test 00:00:00 protein (procedure) Medical Center [code = 413861112] Future Scheduled 1973-12-[address] [facility] Test 00:00:00 0-64 YRS (1 of 1 - Medical C enter PPSV23) [code = PNEUMOCOCCAL VACCINE 0-64 YRS (1 of 1 - PPSV23)] Future Scheduled [address] [facility] 00:00:00 malignant neoplasm of [facility] Center breast (procedure) [code = 210951179] Future Scheduled [address] [facility] Test 00:00:00 malignant neoplasm of [facility] Center breast (procedure) [code = 694910561] Future Scheduled [address] [facility] Test 00:00:00 (combo) [code = CT Medical C enter Colonography (combo)] Future Scheduled [address] [facility] 00:00:00 [facility] [code = 328300616] Future Scheduled [address] [facility] Test 00:00:00 malignant neoplasm of [facility]ica [facility] Center colon (procedure) [code = 410725410] Future Scheduled 1967 Sigmoidoscopy [code = [facility] Sigmoidoscopy] [facility] r Future Scheduled [address] [facility] Test 00:00:00 malignant neoplasm of [facility] Center breast (procedure) [code = 175736397] Future Scheduled [address] [facility] Test 00:00:00 (combo) [code = CT Medical C enter Colonography (combo)] Future Scheduled [address] [facility] 00:00:00 malignant neoplasm of [facility] Center colon (procedure) [code = 175234157] Future Scheduled [address] [facility] Test 00:00:00 malignant neoplasm of [facility]ica [facility] Center colon (procedure) [code = 037035049] Future Scheduled 1967 Sigmoidoscopy [code = [facility]:00 Sigmoidoscopy] Medical Campos r Future Scheduled COVID-19 [facility]INE ([facility] [code = COVID-19 VACCINE (1)] Future Scheduled [facility] Test malignant neoplasm of cervix (procedure) [code = 981817535] Future Scheduled BREAST CANCER [facility] SCREENING [code = BREAST CANCER [...] Date/Time Type Type Clinicians Facility Department ID 2023-02-14 Outpatient Carlos [facility] [id number] Common 09:22:01 Phylicia [id number] [facility] 2022-11-18 Outpatient Carlos [facility] [id number] Common 14:35:01 Phylicia [address]11[address] [facility] 2022-08-23 Outpatient Carlos [facility] [id number] Common 13:15:01 Phylicia [address]15[address] [facility] 2022-08-22 Outpatient Gonzalez, STLMLC STLMLC [id number] Common 10:57:01 Phylicia [facility] 2022-06-21 Outpatient Gonzalez, STLMLC STLMLC [id number] Common 11:23:01 Phylicia [facility] 2022-05-21 Outpatient Gonzalez, STLMLC STLMLC [id number] Common 12:53:01 Phylicia [facility] 2022-05-20 Outpatient Gonzalez, STLMLC STLMLC [id number] Common 14:50:01 [facility] 2022-02-18 Outpatient Gonzalez, STLMLC STLMLC [id number] Common 09:46:01 [facility] 2022-02-07 Outpatient Gonzalez, STLMLC STLMLC [id number] Common 16:35:01 [facility] 2022-01-28 Inpatient ER BRANN, [facility] Emergency [id number] [facility] 18:34:00 CHRISTOPHER 2022-01-21 Outpatient Gonzalez, STLMLC STLMLC [id number] Common 15:59:02 [facility] 2021-11-12 Outpatient Gonzalez, STLMLC STLMLC [id number] Common 13:28:03 Phylicia [facility] 2021-11-07 Outpatient Gonzalez, STLMLC STLMLC [id number] Common 09:53:04 Phylicia [facility] 2021-10-12 Outpatient Gonzalez, STLMLC STLMLC [id number] Common 14:40:01 Phylicia [facility] 2021-08-14 Outpatient Gonzalez, STLMLC STLMLC [id number] Common 09:17:03 Phylicia [facility] 2021-08-13 Outpatient Gonzalez[facility] [id number] Common 15:16:01 Phylicia [facility] 2021-07-19 Outpatient Gonzalez, [facility] [id number] Common 17:19:00 Phylicia [facility] 2021-07-18 Outpatient Gonzalez, [facility] [id number] Common 10:01:04 Phylicia [facility] 2021-04-17 Outpatient SHAHID DUGANEL, [facility] Surgery [id number] [facility] 09:20:49 OLGA 2021-04-02 Outpatient Lele [facility] [id number] Univers 07:49:43 SP ity o f [facility] 2021-04-02 Emergency [facility] [id number] Univers 02:23:15 ity of [facility] 2021-04-01 Emergency [facility] [id number] Univers 23:18:10 ity of [facility] 2021-04-01 Emergency [facility] [id number] Univers 19:20:57 ity of [facility] 2021-03-31 Emergency [facility] [id number] Univers 07:39:48 ity of [facility] 2021-03-31 Emergency [facility] [id number] Univers 06:08:[address] [facility] 2021-03-11 Inpatient ER LUIS ENRIQUE, [facility] G[facility] [id number] [facility] 08:43:11 MAHMOUD 2020-12-09 Inpatient ER KEITH, [facility] G[facility] [id number] [facility] 13:19:00 LYNDSEY 2022-08-29 2022-08-29 Emergency [facility] [id number] Univers 11:54:00 16:40:[address] [facility] 2022-08-29 2022-08-29 [facility] [id number] Univers 11:54:00 16:40:[address] [id number] i ty [facility] [id number] [facility] [id number] [address] 2022-08-29 2022-08-29 Orders Doctor JAMEL [id number] Univers 00:00:00 00:00:00 Only Unassigned, MAGGIE [id number] ity of [place] [facility] [id number] Shaun as [id number] [facility] [address] 2022-06-29 2022-06-29 Emergency ER Artur Haseeb [facility] [id number] 14:51[facility]00 20:24:00 [facility] 2022-06-29 2022-06-29 Emergency Haseeb Siddiqui [facility] [id number] 14:51:00 20:24:00 [facility] 2022-06-29 2022-06-29 Travel [facility] [id number] [facility] 00:00:00 [facility] 2022-06-29 2022-06-29 Travel [facility] [id number] [facility] 00:[facility] 00:00:00 [facility] 2022-05-30 2022-05-30 (TEL) [facility] [id number] mmon 00:00:00 00:00:00 Spirit [facility] 2022-05-22 2022-05-22 OFFICE [facility] [id number] Co mmon 00:00:00 00:00:00 VISIT [facility] PT - CHI LEVEL 4 [facility] 2022-04-26 2022-04-26 Telephone Diana [facility] [id number] [facility] 00[facility]00 [facility] 2022-04-26 2022-04-26 Telephone Diana [facility] [id number] [facility] 00[facility]00[facility]00 [facility] 2022-04-23 2022-04-23 (TEL) [facility] [id number] Co mmon 00:00:00 00:00:00 [facility] 2022-04-04 2022-04-04 (TEL) STLMLC STLC [id number] Co mmon 00:00:00 00:00:00 Spirit - CHI [facility] 2022-02-28 2022-02-28 Documentat Diana [facility] [id number] [facility] 00[facility]00 ion [facility] 2022-02-27 2022-02-27 Documentat Adam [facility] [id number] 00:00[facility]00 00:00:00 [facility] 2022-02-25 2022-02-25 Documentbethanie Medina [facility] [id number] 00:00[facility]00 00:00:00 [facility] 2022-02-25 2022-02-25 Telephone Diana [facility] [id number] 00:[facility] 00[facility]00[facility]00 [facility] 2022-02-22 2022-02-22 Telephone Diana [facility] [id number] 00:[facility] 00:00:00 [facility] 2022-02-21 2022-02-21 (TEL) STLC [facility] [id number] Co mmon 00:00:00 00:00:00 Spirit - CHI [facility] 2022-02-20 2022-02-20 OFFICE STLC STLC [id number] Co mmon 00:00:00 00:00:00 VISIT Migel ESTAB PT - CHI LEVEL 4 [facility] 2022-02-15 2022-02-15 Emergency ER [facility] [id number] 17:52:00 22:30:00 , [facility] 2022-02-15 2022-02-15 Emergency ER SLE Emergency [id number] SLE 17:52:00 17:52:00 2022-02-15 2022-02-15 [facility] [id number] [facility] 00:00:00 [facility] 2022-02-15 2022-02-15 (TEL) [facility] [id number] Co mmon 00:00:00 00:00:00 Spirit - CHI [facility] 2022-02-11 2022-02-11 Transition ROEL Collins 1.2.840.114 [id number] Univers 00:00:00 00:00:00 of Care Marcus SERRANO [id number] [place] [phone] [facility] [address] 2022-02-11 2022-02-11 Patient Doctor JAMEL 1.2.840.114 [id number] Univers 00:00:00 00:00:00 Secure Msg Unassigned, MAGGIE 350.1.13.10 ity of [place] [facility] [id number] Shaun as [phone] [facility] [address] 2022-02-06 2022-02-09 Inpatient X [facility] NO [id number] Univers 20:05:00 17:28:00 PAUL ity of [facility] 2022-02-06 2022-02-09 Hospital Zeynep Mcmahan [facility] 1.2.84 0.114 [id number] Univers 20:05:00 17:28:00 Encounter [facility] 350.1.13.10 it[place] [id number] [facility] [address] (CLC) 2022-02-06 2022-02-09 Inpatient X [facility] NO [id number] Univers 20:05:00 17:28:[address] [facility] 2022-02-07 2022-02-07 Telephone Diana [facility] [id number] 00:[facility]00 00:00:00 [facility] 2022-01-28 2022-02-01 Hospital Perri Spears [facility] [id number] 18:34:00 11:14:00 [facility] Kalia Olsen [facility] 2022-01-31 2022-01-[address] [facility] [id number] 10:00:00 11:00:00 [facility] 2022-01-31 2022-01-31 Anesthesia Neela Sellers [facility] [id number] 10:03:00 10:55:00 Event SebastiáneugenioRoseann [facility] 2022-01-02 2022-01-02 Outpatient EL SLEH SLE [id number] SLEH 00:00:00 00:00:00 2021-12-28 2021-12-28 (TEL) STLMLC STLMLC [id number] Co mmon 00:00:00 00:00:00 [facility] 2021-12-17 2021-12-17 (TEL) STLMLC STLMLC [id number] Co mmon 00:00:00 00:00:00 [facility] 2021-11-26 2021-11-26 Outpatient EL STEFANIE, SLEH SLE [id number] SLE 16:36:52 16:36:52 RISE 2021-11-20 2021-11-20 Outpatient EL STEFANIE, SLEH SLE [id number] SLE 00:00:00 00:00:00 RISE 2021-11-15 2021-11-15 OFFICE STLMLC STLMLC [id number] Co mmon 00:00:00 00:00:00 VISIT [facility] 4 [facility] 2021-11-14 2021-11-14 Outpatient EL COFFMAN, SLE Surgery [id number] SLE 10:33:00 12:55:00 SUNEAL 2021-11-08 2021-11-08 (TEL) STLMLC STLMLC [id number] Co mmon 00:00:00 00:00:00 [facility] 2021-11-07 2021-11-07 Outpatient EL STEFANIE, SLEH SLE [id number] SLEH 08:08:14 08:08:14 RISE 2021-10-12 2021-10-12 OFFICE STLMLC STLMLC [id number] Co mmon 00:00:00 00:00:00 VISIT EST Spir it PT LEVEL 3 - CHI [facility] 2021-10-03 2021-10-03 (TEL) STLMLC STLMLC [id number] Co mmon 00:00:00 00:00:00 Spirit - CHI [facility] 2021-10-02 2021-10-02 Outpatient SHAHID LITTLE, [facility] SLE [id number] SLE 07:55:01 23:59:00 ANN 2021-10-02 2021-10-02 Outpatient SHAHID MARTINEZ, [facility] SLE [id number] SLE 10:31:31 10:31:31 ERIC 2021-10-02 2021-10-02 Outpatient EL [facility] SLE [id number] SLEH 00:00:00 00:00:00 2021-09-18 2021-09-18 (TEL) STLMLC STLMLC [id number] Co mmon 00:00:00 00:00:00 Spirit - CHI [facility] 2021-09-11 2021-09-11 OFFICE STLMLC STLMLC [id number] Co mmon 00:00:00 00:00:00 VISIT Spirit ESTAB PT - CHI LEVEL 4 [facility] 2021-09-04 2021-09-06 Inpatient ER KELSI, [facility] Emergency 20 [id number] SLEH 22:14:00 18:01:00 HAVEN 2021-08-28 2021-08-28 (TEL) STLMLC STLMLC [id number] Co mmon 00:00:00 00:00:00 Spirit - CHI [facility] 2021-08-15 2021-08-15 OFFICE STLMLC STLMLC [id number] Co mmon 00:00:00 00:00:00 VISIT Spirit ESTAB PT - CHI LEVEL 4 [facility] 2021-08-15 2021-08-15 SUB ANNUAL STLMLC STLMLC [id number] Common 00:00:00 00:00:00 MCR Spirit WELLNESS - CHI VISIT [facility] 2021-08-12 2021-08-13 Emergency ER KISHASATORChip, [facility] Emergency [id number] SLEH 16:14:00 00:17:00 CJ 2021-08-10 2021-08-10 Ambulatory nullFlavo MNA [id number] Memoria 20:45:00 20:45:00 Pre-Reg r Neurology 14 l Nela Mariano 2021-08-10 2021-08-10 Ambulatory nullFlavo MNA [id number] Memoria 20:45:00 20:45:00 Pre-Reg r Neurology 14 l Nela Mariano 2021-08-10 2021-08-10 Outpatient MHIE MHIE [id number] Memoria 14:45:00 14:45:00 14 jostin Mariano 2021-08-10 2021-08-10 Outpatient Duy MISCHER MISCHER [id number] 14:45:00 14:45:00 You 14 Kal 2021-08-10 2021-08-10 (TEL) [facility] [id number] Co mmon 00:00:00 00:00:00 [facility] 2021-07-23 2021-07-24 Outpt Diag nullFlavo [facility] [id number] Memoria 16:22:00 05:59:00 Services r Outpatient 04 l Imaging Garc[facility] [place] 2021-07-23 2021-07-24 [place] [id number] Memoria 16:22:00 05:59:00 Services r Outpatient [address] 2021-07-23 2021-07-23 Outpatient Duy, MHOIP MHOIP [id number] 10:22:00 23:59:00 You 04 Kal 2021-07-18 2021-07-18 OFFICE [facility] [id number] Co mmon 00:00:00 00:00:00 VISIT NEW Spir it PT LEVEL 5 - [facility] 2021-07-03 2021-07-03 [facility] [id number] SLE 11:04:13 11:04:13 2021-07-03 2021-07-03 Outpatient EL SIDNEY SLE SLE [id number] SLEH 08:52:29 08:52:29 ANN 2021-06-29 2021-06-30 Outpatient nullFlavo MNA [id number] Memoria 21:00:00 05:59:59 r Neurology 12 jostin [place] 2021-06-29 2021-06-30 Outpatient nullFlavo MNA [id number] Memoria 21:00:00 05:59:59 r Neurology 12 jostin [place] 2021-06-29 2021-06-29 Outpatient JOIE GordilloSCHER DEVANSCHER [id number] 15:00:00 23:59:[address] [place] [address] 2021-06-29 2021-06-29 Outpatient MHIE MHIE [id number] Memoria 15:00:00 15:00:00 12 jostin [place] 2021-05-10 2021-05-12 Phone nullFlavo MHMG [id number] Memoria 21:22:16 05:59:59 Message r Primary 01 [facility] 2021-05-10 2021-05-12 Phone nullFlavo MHMG [id number] Memoria 21:22:16 05:59:59 Message r Primary 01 [facility] 2021-05-10 2021-05-11 Outpatient MHMG MHMG [id number] 15:22:16 23:59:59 2021-04-12 2021-04-14 Outpatient ER QUEVEDO, SLE Emergency [id number] SLEH 17:00:00 13:56:00 URBAN 2021-04-12 2021-04-12 Outpatient EL STEFANIE, [facility] [id number] SLEH 12:58:25 16:59:00 [facility] 2021-04-12 2021-04-12 Outpatient EL STEFANIE, [facility] [id number] SLEH 08:01:59 12:57:00 [facility] 2021-04-12 2021-04-12 [id number] SLEH 08:01:49 12:57:00 [facility] 2021-04-12 2021-04-12 [facility] [id number] SLE 08:01:39 12:57:00 [facility] 2021-04-12 2021-04-12 Out[facility] [id number] SLE 08:01:30 08:00:00 [facility] 2021-04-11 2021-04-11 Outpatient EL STEFANIE SLEChalo SLEH [id number] SLEH 12:47:22 23:59:00 RISE 2021-04-11 2021-04-11 Outpatient EL STEFANIE SLEChalo SLEH [id number] SLEH 12:47:08 23:59:00 RISE 2021-04-11 2021-04-11 Outpatient EL DEE SLEH SLEH [id number] SLEH 11:37:08 11:37:08 ANNMARIE 2021-04-11 2021-04-11 Outpatient EL SLEH SLEH [id number] SLEH 11:19:24 11:19:24 2021-04-11 2021-04-11 Outpatient EL SLEH SLEH [id number] SLEH 07:15:14 07:15:14 2021-04-11 2021-04-11 Outpatient EL SLEH SLEH [id number] SLEH 07:14:55 07:14:55 2021-04-11 2021-04-11 Outpatient EL SLEH SLEH [id number] SLEH 07:14:31 07:14:31 2021-04-11 2021-04-11 Outpatient EL JAMEL HERNANDEZ SLEH SLEH [id number] SLEH 07:14:11 07:14:11 2021-04-11 2021-04-11 Outpatient EL SLEH SLEH [id number] SLEH 07:13:49 07:13:49 2021-04-11 2021-04-11 Outpatient EL STEFANIE SLEChalo SLEH [id number] SLEH 00:00:00 00:00:00 RISE 2021-04-05 2021-04-06 Between nullFlavo MHMG [id number] Memoria 15:08:27 15:08:27 Visit r Primary 04 [facility] 2021-04-05 2021-04-06 Between nullFlavo MHMG [id number] Memoria 15:08:27 15:08:27 Visit r Primary 04 l [facility] 2021-04-05 2021-04-06 Outpatient [facility] [id number] 10:08:27 10:08:27 04 2021-03-23 2021-03-25 Outpatient ER PRIYANKA, [facility] Emergency [id number] SLE 13:26:00 11:59:00 BEV 2021-03-23 2021-03-23 Outpatient EL BIBI, [facility] [id number] SLE 11:33:16 11:33:16 ZAINAB 2021-03-07 2021-03-10 Inpatient ER ADAM, [facility] Emergency 20 [id number] SLE 18:46:00 14:03:00 IGOR 2021-03-08 2021-03-08 Outpatient EL [facility] [id number] SLE 00:00:00 00:00:00 2021-03-07 2021-03-07 Outpatient EL SILVANO, [facility] [id number] SLE 12:14:44 18:45:00 JAMEL 2021-02-19 2021-02-19 Outpatient EL [facility] [id number] SLE 00:00:00 00:00:00 2021-02-14 2021-02-15 Between nullFlavo MG [id number] Memoria 18:53:37 18:53:37 Visit r Primary 03 [facility] 2021-02-14 2021-02-15 Between nullFlavo MHMG [id number] Memoria 18:53:37 18:53:37 Visit r Primary 03 [facility] 2021-02-14 2021-02-15 Outpatient MG MG [id number] 13:53:37 13:53:37 03 2021-02-07 2021-02-07 Outpatient [facility] [id number] SLE 00:00:00 00:00:00 2021-01-30 2021-01-31 Between nullFlavo MHMG [id number] Memoria 21:46:37 21:46:37 Visit r Primary 02 [facility] 2021-01-30 2021-01-31 Between nullFlavo MHMG [id number] Memoria 21:46:37 21:46:37 Visit r Primary 02 [facility] 2021-01-30 2021-01-31 Outpatient MG MG [id number] 16:46:37 16:46:37 02 2021-01-22 2021-01-23 Between nullFlavo MHMG [id number] Memoria 14:35:17 14:35:17 Visit r Primary 01 [facility] 2021-01-22 2021-01-23 Between nullFlavo MHMG [id number] Memoria 14:35:17 14:35:17 Visit r Primary 01 [facility] 2021-01-22 2021-01-23 Outpatient MHMG MHMG [id number] 09:35:17 09:35:17 2021-01-22 2021-01-23 Outpatient nullFlavo MHMG [id number] Memoria 21:00:00 04:59:59 r Primary 13 [facility] 2021-01-22 2021-01-23 Outpatient nullFlavo MHMG [id number] Memoria 21:00:00 04:59:59 r Primary 13 [facility] 2021-01-22 2021-01-22 Outpatient Skylar-Will MHMG MHMG [id number] 16:00:00 23:59:59 is, Adela 13 2021-01-22 2021-01-22 Outpatient MHIE MHIE [id number] Memoria 16:00:00 16:00:00 13 jostin [place] 2021-01-01 2021-01-03 Phone nullFlavo MHMG [id number] Memoria 17:46:17 04:59:59 Message r Primary 00 [facility] 2021-01-01 2021-01-03 Phone nullFlavo MHMG [id number] Memoria 17:46:17 04:59:59 Message r Primary 00 [facility] 2021-01-01 2021-01-02 Outpatient MHMG MHMG [id number] 12:46:17 23:59:59 00 2020-12-27 2020-12-28 Outpatient nullFlavo MNA [id number] Memoria 16:15:00 04:59:59 r Neurology 09 l [place] 2020-12-27 2020-12-28 Outpatient nullFlavo MNA [id number] Memoria 16:15:00 04:59:59 r Neurology 09 l Nela Mariano 2020-12-27 2020-12-27 Outpatient JALYN GordilloSCHANDRÉS [id number] 11:15:00 23:59:59 You Demarco Bowden 2020-12-27 2020-12-27 Outpatient MHIE MHIE [id number] Memoria 11:15:00 11:15:00 09 jostin Mariano 2020-12-21 2020-12-21 Emergency ER [facility] Emergency [id number] SLE 14:14:00 14:14:00 2020-12-20 2020-12-21 Outpatient nullFlavo MNA [id number] Memoria 21:00:00 04:59:59 r Neurology 11 l Nela Mariano 2020-12-20 2020-12-21 Outpatient nullFlavo MNA [id number] Memoria 21:00:00 04:59:59 r Neurology 11 l Nela Mariano 2020-12-20 2020-12-20 Outpatient JALYN GordilloSCHANDRÉS [id number] 16:00:00 23:59:59 You Javy Bowden 2020-12-20 2020-12-20 Outpatient MHIE MHIE [id number] Memoria 16:00:00 16:00:00 11 jostin Mariano 2020-12-20 2020-12-20 Outpatient [facility] [id number] [facility] 00:00:00 00:00:00 2020-12-08 2020-12-08 [facility] ICU [id number] [facility] 00:00:00 00:00:00 Encounter [facility] 2020-12-06 2020-12-07 Outpt Diag nullFlavo [facility] [id number] Memoria 22:19:00 04:59:00 Services r Outpatient 03 l Imaging García [place] 2020-12-06 2020-12-07 [place] [id number] Memoria 22:19:00 04:59:00 Services r Outpatient 03 l Lissa Mariano [place] 2020-12-06 2020-12-06 Outpatient CARSON Gordillo [facility] [id number] 17:19:00 23:59:00 You 03 Kal 2020-12-06 2020-12-06 Ambulatory nullFlavo MNA [id number] Memoria 15:00:00 15:00:00 Pre-Reg r Neurology 10 l Nela Mariano 2020-12-06 2020-12-06 Ambulatory nullFlavo MNA [id number] Memoria 15:00:00 15:00:00 Pre-Reg r Neurology 10 l Nela Mariano 2020-12-06 2020-12-06 Outpatient MHIE SARAHIE [id number] Memoria 10:00:00 10:00:00 10 l García 2020-12-06 2020-12-06 Outpatient JALYN Gordillo [id number] 10:00:00 10:00:00 You Janell Bowden 2020-12-01 2020-12-01 [facility] 1.2.840.114 [id number] 08:35:38 11:02:59 Visit Sp [address] 350.1.13.10 [address] 4.2.7.2.686 CARMEL [id number] AND DELROY [facility] 2020-12-01 2020-12-01 Outpatient R [facility] [id number] Univers 08:45:00 08:45:00 [facility] 2020-11-15 2020-11-16 Outpatient nullFlavo MNA [id number] Memoria 14:30:00 04:59:59 r Neurology 08 l Nela Mariano 2020-11-15 2020-11-16 Outpatient nullFlavo MNA [id number] Memoria 14:30:00 04:59:59 r Neurology 08 l Nela Mariano 2020-11-15 2020-11-15 Outpatient JALYN Gordillo [id number] 09:30:00 23:59:59 You Mickie Bowden 2020-11-15 2020-11-15 Outpatient MHIE MHIE [id number] Memoria 09:30:00 09:30:00 08 jostin Mariano 2020-10-23 2020-10-24 Outpatient nullFlavo MHMG [id number] Memoria 19:00:00 04:59:59 r Primary 06 l [facility] 2020-10-23 2020-10-24 Outpatient nullFlavo MHMG [id number] Memoria 19:00:00 04:59:59 r Primary 06 l [facility] 2020-10-23 2020-10-23 Outpatient Skylar-Will MHMG MHMG [id number] 14:00:00 23:59:59 isAdela 06 2020-10-23 2020-10-23 Outpatient MHIE MHIE [id number] Memoria 14:00:00 14:00:00 06 l [place] 2020-10-18 2020-10-18 Ambulatory nullFlavo MNA [id number] Memoria 19:00:00 19:00:00 Pre-Reg r Neurology 07 l [place] 2020-10-18 2020-10-18 Ambulatory nullFlavo MNA [id number] Memoria 19:00:00 19:00:00 Pre-Reg r Neurology 07 l Nela [place] 2020-10-18 2020-10-18 Outpatient MHIE IE [id number] Memoria 14:00:00 14:00:00 07 jostin [place] 2020-10-18 2020-10-18 Outpatient JALYN Gordillo RUSTSCHER [id number] 14:00:00 14:00:00 You Santiago Bowden 2020-10-17 2020-10-17 Patient Doctor JAMEL 1.2.840.114 [id number] Univers 00:00:00 00:00:00 Secure Msg Unassigned, MAGGIE 350.1.13.10 ity [facility] 4.2.7.2.686 Shaun as [phone] [address] 2020-10-15 2020-10-15 Emergency X AQUILES, [facility] ERT [id number] Univers 13:49:00 18:07:[address] [facility] 2020-10-11 2020-10-11 Ambulatory nullFlavo MNA [id number] Memoria 19:15:00 19:15:00 Pre-Reg r Neurology 05 l [place] 2020-10-11 2020-10-11 Ambulatory nullFlavo MNA [id number] Memoria 19:15:00 19:15:00 Pre-Reg r Neurology 05 l Nela Mariano 2020-10-11 2020-10-11 Outpatient MHIE MHIE [id number] Memoria 14:15:00 14:15:00 05 jostin Mariano 2020-10-11 2020-10-11 Outpatient Duy RUSTSCHANDRÉS RUSTSCHER [id number] 14:15:00 14:15:00 You Rafal Bowden 2020-09-06 2020-09-06 Ambulatory nullFlavo MNA [id number] Memoria 18:00:00 18:00:00 Pre-Reg r Neurology 04 l Nela Mariano 2020-09-06 2020-09-06 Ambulatory nullFlavo MNA [id number] Memoria 18:00:00 18:00:00 Pre-Reg r Neurology 04 l Nela Mariano 2020-09-06 2020-09-06 Outpatient MHIE MHIE [id number] Memoria 13:00:00 13:00:00 04 jostin Mariano 2020-09-06 2020-09-06 Outpatient Duy RUSTSCHER MISCHER [id number] 13:00:00 13:00:00 You See Bowden 2020-08-28 2020-08-29 Outpatient nullFlavo [facility]MG [id number] Memoria 16:30:00 04:59:59 r Primary 03 [facility] 2020-08-28 2020-08-29 Outpatient nullFlavo MHMG [id number] Memoria 16:30:00 04:59:59 r Primary 03 [facility] 2020-08-28 2020-08-28 Outpatient Skylar-Will MHMG MHMG [id number] 11:30:00 23:59:59 isAdela 2020-08-28 2020-08-28 Outpatient MHIE MHIE [id number] Memoria 11:30:00 11:30:00 03 jostin Mariano 2020-08-26 2020-08-26 Outpatient [facility] [id number] Univers 00:00:00 00:00:00 [facility] 2020-08-23 2020-08-24 Outpatient nullFlavo MNA [id number] Memoria 19:15:00 04:59:59 r Neurology 02 l Nela Mariano 2020-08-23 2020-08-24 Outpatient nullFlavo MNA [id number] Memoria 19:15:00 04:59:59 r Neurology 02 l Nela Mariano 2020-08-23 2020-08-23 Outpatient Duy RUSTCAREY RUSTSCHER [id number] 14:15:00 23:59:59 You Krystal [place] 2020-08-23 2020-08-23 Outpatient MHIE MHIE [id number] Memoria 14:15:00 14:15:00 02 jostin [place] 2020-08-12 2020-08-12 Outpatient EL MDA [facility] [id number] MD 12:07:04 12:07:04 Fredyenny yoo 2020-07-27 2020-07-28 Outpatient nullFlavo MHMG [id number] Memoria 19:30:00 05:59:59 r Primary 01 [facility] 2020-07-27 2020-07-28 Outpatient nullFlavo MHMG [id number] Memoria 19:30:00 05:59:59 r Primary 01 [facility] 2020-07-27 2020-07-27 Outpatient Skylar-Will MHMG MHMG [id number] 13:30:00 23:59:59 isAdela 2020-07-27 2020-07-27 Ambulatory nullFlavo [facility] [id number] Memoria 19:30:00 19:30:00 Pre-Reg r Primary 00 [facility] 2020-07-27 2020-07-27 Ambulatory nullFlavo MHMG [id number] Memoria 19:30:00 19:30:00 Pre-Reg r Primary 00 [facility] 2020-07-27 2020-07-27 Outpatient MHIE MHIE [id number] Memoria 13:30:00 13:30:00 01 jostin [place] 2020-07-27 2020-07-27 Outpatient Skylar-Will MHMG MHMG [id number] 13:30:00 13:30:00 is, Adela 2019-07-16 2019-07-18 Outpatient U TARAH [facility] NO [id number] Univers 13:36:00 12:15:00 VIC [facility] 2019-06-30 2019-07-04 Inpatient X JUAN JOSE [facility] NO [id number] Univers 17:39:25 13:45:00 MARIVEL [facility] 2019-04-20 2019-04-21 Emergency X ELFEGO [facility] ERT [id number] Univers 19:26:38 00:10:00 NISHA [facility] 2019-02-14 2019-02-19 Inpatient [place] [facility] [place] [id number] Univers 13:52:02 12:14:00 [facility] 2019-01-21 2019-01-22 Outpatient X [place] [facility] ON [id number] Univers 18:13:19 12:17:00 ISAAC [facility] 2018-09-05 2018-09-05 Emergency X GENESIS [facility] ERT [id number] Univers 15:33:18 23:07:00 STEVEN [facility] 2007-04-06 2007-04-06 Outpatient [facility] [id number] Univers 00:00:00 14:24:00 4 [facility] 2007-03-05 2007-03-05 Outpatient [facility] [id number] Univers 00:00:00 16:59:00 6 [facility] Results Test Description Test [...] 32.0 g/dL 31.6-35.1 RDW-SD (test code = 86322-0) 50.4 fL 39.0-49.9 H RDW-CV (test code = 788-0) 16.0 % 12.0-15.5 H PLT (test code = 777-3) 45 See_Comment LL [Au tomated message] The system which [employer] nerated this result transmit gaby reference range: 166 - 35 8 10*3/?L. The reference range was not used to interpret th is result as normal/abnormal . MPV (test code = 83218-5) No t Measured IPF % (test code = 6.6 % 1.3-7.7 Platelet count measured by [id number]) fluorescence me thod. NRBC/100 WBC (test code = 0.0 See_Comment [ Automated message] The [id number]) system which [employer] nerated this result transmit gaby reference range: 0.0 - 10 .0 /100 WBCs. The reference r mago was not used to interpr et this result as normal/abnor mal. NRBC x10^3 (test code = See_Comment [Au tomated message] The [id number]) system which [employer] nerated this result transmit gaby reference range: 10*3/?L. The reference range was not u sed to interpret this result as normal/abnormal . GRAN MAT (NEUT) % (test code 66.1 % = 770-8) IMM GRAN % (test code = 0.80 % [id number]) LYMPH % (test code = 736-9) 21.7 % MONO % (test code = 5905-5) 9.1 % EOS % (test code = 713-8) 2.1 % BASO % (test code = 706-2) 0.2 % GRAN MAT x10^3(ANC) (test 3.51 10*3/uL 1.88-7.09 code = [id number]) IMM GRAN x10^3 (test code = 0.04 10*3/uL 0.00-0.06 0064238455) LYMPH x10^3 (test code = 1.15 10*3/uL 1.32-3.29 L 731-0) MONO x10^3 (test code = 0.48 10*3/uL 0.33-0.92 742-7) EOS x10^3 (test code = 0.11 10*3/uL 0.03-0.39 711-2) BASO x10^3 (test code = 0.01-0.07 704-7) ELLIPTO/OVAL (test code = 2+ See_Comment A [ Automated message] The 88911-7) system which [employer] nerated this result transmit gaby reference range: (none). The reference range was not u sed to interpret this result as normal/abnormal . POLYCHROMASIA (test code = 2+ See_Comment [Automated message] The 19317-6) system which [employer] nerated this result transmit gaby reference range: 2+. The reference range was not u sed to interpret this result as normal/abnormal . SCHISTOCYTES (test code = 1+ A 800-3) SPHEROCYTES (test code = 1+ A 802-9) Lab Interpretation (test Abnormal code = 40758-7) [facility]. METABOLIC PANEL (48617)2022-08-29 19:03:20 Test Item Value Reference Range Interpretation Comments NA (test code = 142 mmol/L 135-145 [id number]) K (test code = 4.2 mmol/L 3.5-5.0 5066118841) CL (test code = 107 mmol/L 98-108 7770751249) CO2 TOTAL (test code = 25 mmol/L 23-31 2781896355) AGAP (test code = 10 2-16 1636362754) BUN (test code = 8 mg/dL 7-23 5282251363) GLUCOSE (test code = 222 mg/dL 70-110 H 7345821116) CREATININE (test code = 0.62 mg/dL 0.50-1.04 4595157199) TOTAL BILI (test code = 1.3 mg/dL 0.1-1.1 H 2481738213) CALCIUM (test code = 9.1 mg/dL 8.6-10.6 0898647996) T PROTEIN (test code = 7.7 g/dL 6.3-8.2 5204033089) ALBUMIN (test code = 4.2 g/dL 3.5-5.0 9477366596) ALK PHOS (test code = 65 U/L 34-122 5365830401) ALTv (test code = 36 U/L 5-35 H 1742-6) AST(SGOT) (test code = 59 U/L 13-40 H 3934550769) eGFR (test code = 100.3 mL/min/1.73m2 5199853958) JULIAN (test code = JULIAN) Association of [...] tests). Lab Interpretation Abnormal (test code = 21954-9) [facility] Test Item Value Reference Range Interpretation Comments LIPASE (test code = 5341915000) 298 U/L 0-220 H Lab Interpretation (test code = Abnormal 48544-5) [facility] + LACTIC [id number] 18:03:45 Test Item Value Reference Range Interpretation Comments PH (test code = 7.40 7.32-7.42 5486181165) PCO2 TEDDY (test code = 39 See_Comment L [Auto mated [id number]) message] The sy stem which generated this result transmitted reference range : 41 - 51 mmHg. The reference range was not used to interpret this result as normal/abnormal . PO2 TEDDY (test code = 38 See_Comment [Autom ated 3192405046) message] The sy stem which generated this result transmitted reference range : 25 - 40 mmHg. The reference range was not used to interpret this result as normal/abnormal . HCO3 TEDDY (test code = 24 See_Comment [Auto mated 5349008125) message] The sy stem which generated this result transmitted reference range : 24 - 28 mEq/L. The reference range was not used to interpret this result as normal/abnormal . AC VBE(BEAKER) (test -0.5 mEq/L code = 2409602894) THB TEDDY (test code = 8.6 g/dL 12.0-16.0 L 5018458308) %O2HB TEDDY (test code = 82.3 % 52.0-63.0 H 3334685855) %COHB TEDDY (test code = 0.6 % 0.0-1.5 6178462049) %METHB TEDDY (test code = 0.1 % 0.4-1.5 L 9458954871) VOL%O2 TEDDY (test code = Not resulted. 9686938241) NA (test code = 143 mmol/L 135-145 0164312503) K+ (test code = 3.8 mmol/L 3.5-5.0 6882533615) AC CA IONZ (test code = 4.90 mg/dL 4.50-5.30 0700111144) GLUCOSE (test code = 230 mg/dL 70-110 H 7417952442) LACTIC ACID (test code 2.35 mmol/L 0.50-2.20 H COOXE RR = 7212836276) Lab Interpretation Abnormal (test code = 94989-9) [facility] [id number] 18:17:00 Test Item Value Reference Range Interpretation [...] not appl icable for dialysis patien ts Anthropology Department Chair ID - ADMINPT/EOXF0454-27-17 16:56:46 Test Item Value Reference Range Interpretation [...] mechanical heart valves.CBC W/PLT COUNT & AUTO [id number] 16:45:03 Test Item Value Reference Range Interpretation [...] = 2801) RAD, FOOT, MIN 3 VIEWS, [id number] 20:02:00Reason for exam:->ABNORMAL LAB [facility] : 1965 Sex: FFINALREPORT CLINICAL HISTORY: Abnormal lab 3 images of the left foot are submitted without comparison. There is no acute fracture or malalignment. No destructive osseous lesion or radiopaque foreign body is present. Signed: Hi Crowley MDReport Verified Date/Time: 02/15/2022 20:02:45 HIGH SENSITIVITY TROPONIN [id number] 19:45:17 Test Item Value Reference Range Interpretation Comments HIGH SENSITIVITY < pg/ml See_Comment [Automated message] TROPONIN I (test code = The system which 7149584) generated this result transmitted ref erence range: <=17. Th e reference range was not used to interpr et this result as normal/abnormal . Anthropology Department Chair ID - BSThe CPC CODER STAT High Sensitivity Troponin-I results should be used in conjunctionwith other diagnostic information such as ECG, clinical observations and information, and patient symptoms to aid in the diagnosis of NH.B-TYPE NATRIURETIC FACTOR (BNP)2022-02-15 19:45:16 Test Item Value Reference Range Interpretation Comments B-TYPE NATRIURETIC PEPTIDE (BEAKER) 64 pg/mL 0-100 (test code = 700) Anthropology Department Chair ID - BSBASIC METABOLIC [id number] 19:41:54 Test Item Value Reference Range Interpretation [...] not appl icable for dialysis patien ts Anthropology Department Chair ID - BSHEPATIC FUNCTION [id number] 19:41:54 Test Item Value Reference Range Interpretation [...] code = 98 U/L 6-55 H 347) Anthropology Department Chair ID - [id number] 19:41:54 Test Item Value Reference Range Interpretation Comments LIPASE (BEAKER) (test code = 749) 81 U/L 8-78 H Anthropology Department Chair ID - BSPT/LDSU3254-31-14 19:31:34 Test Item Value Reference Range Interpretation Comments PROTIME (BEAKER) (test 15.3 seconds 11.9-14.2 H code = 759) INR (BEAKER) (test 1.28 See_Comment [Automat ed code = 370) message] The Nonoba stem which generated this result transmitted reference [...] 2.5-3.5 for patients with mechanical heart valves.PROTHROMBIN TIME/[id number] 19:30:50 Test Item Value Reference Range Interpretation Comments PROTIME (BEAKER) 15.3 seconds 11.9-14.2 H (test code = 759) INR (BEAKER) (test 1.28 See_Comment [Automat ed message] code = 370) The system [employer] generated this result transmitted ref erence range: <=5.90. The reference range was not used to int erpret this result as normal/abnormal . RECOMMENDED COUMADIN/WARFARIN INR THERAPY RANGESSTANDARD DOSE: 2.0 - 3.0 Includes: PROPHYLAXIS for venous thrombosis, systemic embolization; TREATMENT for venous thrombosis and/or pulmonary embolus.HIGH RISK: Target INR is 2.5-3.5 for patients with mechanical heart valves.CBC W/PLT COUNT & AUTO [id number] 19:23:47 Test Item Value Reference Range Interpretation [...] PERCENT (BEAKER) (test code = 2801) BLOOD [id number] 21:00:55 Test Item Value Reference Range Interpretation Comments CULTURE (BEAKER) (test No growth in 5 days code = 1095) The specimen volume collected for this blood culture was below the optimum (10 mL per bottle or 20 mL total). Use of lower volumes may adversely affect recovery and/or detection times of some organisms.BLOOD [id number] 21:00:55 Test Item Value Reference Range Interpretation Comments CULTURE (BEAKER) (test No growth in 5 days code = 1095) BLOOD [id number] 18:00:48 Test Item Value Reference Range Interpretation Comments CULTURE (BEAKER) (test No growth in 5 days code = 1095) The specimen volume collected for this blood culture was below the optimum (10 mL per bottle or 20 mL total). Use of lower volumes may adversely affect recovery and/or detection times of some organisms.BLOOD [id number] 18:00:48 Test Item Value Reference Range Interpretation Comments CULTURE (BEAKER) (test No growth in 5 days code = 1095) The specimen volume collected for this blood culture was below the optimum (10 mL per bottle or 20 mL total). Use of lower volumes may adversely affect recovery and/or detection times of some organisms.HEMOGLOBIN [id number] 08:29:58 Test Item Value Reference Range Interpretation Comments HEMOGLOBIN A1C 7.3 % See_Comment H [Automated m essage] ELECTROPHORESIS (BEAKER) The system which (test code = 3814) generated this result transmitted ref erence range: <=5.6%. The reference range was not used to int erpret this result as normal/abnormal . "The A1c is measured using a [facility]-certified method. HbA1c value equal to or greater than 6.5% as thediagnosis cutoff for diabetes. An HbA1c value of 5.7- 6.4% indicates increased risk for diabetes (prediabetes)."Anthropology Department Chair ID - ADMCBC W/PLT COUNT & AUTO [id number] 04:43:44 Test Item Value Reference Range Interpretation [...] PERCENT (BEAKER) (test code = 2801) POC-Glucose [id number] 22:21:07 Test Item Value Reference Range Interpretation Comments POC-Glucose Meter (test 214 mg/dL 70-110 H : TE STED AT [facility] code = 1538) [address] [facility], [address] 30: Anthropology Department Chair/Techni sanjeev ID = [id number] for BRANDAN CARBAJAL EY Lab Interpretation (test Abnormal code = 78370-0) [facility] [id number] 22:21:07 Test Item Value Reference Range Interpretation Comments POC-GLUCOSE METER 214 mg/dL 70-110 H : TESTED A T [facility] 6720 (BEAKER) (test code = EDVINKY Lele [facility], 1538) [address]: Anthropology Department Chair/Techni sanjeev ID = [id number] for NGOZI HAYNES CBC W/PLT COUNT & AUTO [id number] 15:54:31 Test Item Value Reference Range Interpretation [...] (BEAKER) (test code = 2801) CT, CTA [id number] 11:04:00GI protocolUnlisted Reason for Exam - Click Yes and Enter Reason Below->YesUnlisted Reason for Exam->[facility]dominal pain [facility] : 1965 Sex: FFINALREPORT [...] MDReport Verified Date/Time: 01/31/2022 11:04:04 Reading Location: [facility] B1 C013Y CT Body Reading Room POCT-GLUCOSE [id number] 10:05:22 Test Item Value Reference Range Interpretation Comments POC-GLUCOSE METER 189 mg/dL 70-110 H : TESTED A T [facility] 67[address] [email or web address] (test code = MICHEL ENGEL MD, 1538) [address]: Anthropology Department Chair/Techni sanjeev ID = [id number] for TO September U/S, ABDOMINAL, [id number] 09:27:00Labs to be ordered:->Body Fluid Culture (w/Gram Stain, C\\T\\S) Labs to be ordered:->Cell Count Reason for exam:->abdominal distention, fever, cirrhosis [facility] : 1965 Sex: FFINALREPORT History: [...] Villafana Verified Date/Time: 01/31/2022 09:27:38 Reading Location: [address] Ultrasound Reading Room COMPREHENSIVE METABOLIC [id number] 06:48:48 Test Item Value Reference Range Interpretation [...] not appl icable for dialysis patien ts Anthropology Department Chair ID - MAGDIEL MPROTHROMBIN TIME/[id number] 05:27:08 Test Item Value Reference Range Interpretation Comments PROTIME (BEAKER) 16.0 seconds 11.9-14.2 H (test code = 759) INR (BEAKER) (test 1.30 See_Comment [Automat ed message] code = 370) The system [employer] generated this result transmitted ref erence range: <=5.90. The reference range was not used to int erpret this result as normal/abnormal . RECOMMENDED COUMADIN/WARFARIN INR THERAPY RANGESSTANDARD DOSE: 2.0 - 3.0 Includes: PROPHYLAXIS for venous thrombosis, systemic embolization; TREATMENT for venous thrombosis and/or pulmonary embolus.HIGH RISK: Target INR is 2.5-3.5 for patients with mechanical heart valves.CBC W/PLT COUNT & AUTO [id number] 05:24:23 Test Item Value Reference Range Interpretation [...] = 2801) RAD, CHEST, 1 VIEW, NON [id number] 22:17:00Reason for exam:->feverShould this be performed at the bedside?->Yes [facility] : 1965 Sex: FFINALREPORT TECHNIQUE: Frontal view of the chest. INDICATION: fever. COMPARISON: 09/04/2021. FINDINGS: LINES/TUBES: None. HEART AND MEDIASTINUM: Cardiomediastinal contour is within normallimits. LUNGS: The lungs are well inflated and clear. No consolidation or pulmonary edema. PLEURA: No pneumothorax. No significant pleural effusion. SOFT TISSUES AND BONES: Unremarkable. IMPRESSION:No acute cardiopulmonary process. Signed: Jose Alberto Catalan MDRepb[facility] Verified Date/Time: 01/29/2022 22:17:14 VITAMIN [id number] 06:18:30 Test Item Value Reference Range Interpretation Comments VITAMIN B12 (BEAKER) (test code = 430 pg/mL 213-816 774) Anthropology Department Chair ID - PIAYA [id number] 06:18:30 Test Item Value Reference Range Interpretation Comments FERRITIN (BEAKER) (test code = 11.30 ng/mL 5.00-275.00 361) Anthropology Department Chair ID - PIAYA LBASIC METABOLIC [id number] 06:10:41 Test Item Value Reference Range Interpretation [...] not appl icable for dialysis patien ts Anthropology Department Chair ID - DENA ABEL, TIBC, % SAT. (WITHOUT FERRITIN)2022-01-29 06:04:58 Test Item Value Reference Range Interpretation Comments IRON (BEAKER) (test code = 547) 49.0 ug/dL 40.0-160.0 TOTAL IRON BINDING CAPACITY 398 ug/dL 250-450 (BEAKER) (test code = 769) IRON % SATURATION (2) (BEAKER) 12 % 20-55 L (test code = 2590) Anthropology Department Chair ID - DENA LCBC W/PLT COUNT & AUTO [id number] 05:35:36 Test Item Value Reference Range Interpretation [...] SARS-Co V-2 (test code = target nucleic 21075-7) acids are not detected in thi s [...] intended for th e qualitative detection of nucleic acid fr om SARS-CoV-2 in a nasopharyngeal swab specimen colle gaby from individual s suspected of COVID-19 [...] Food, Drug and Cosmetic Act, 21 U.S.C. § 360bbb-3(b)(1), unless the authorization is terminated or revoked sooner. Fact Sheet for Healthcare Providers: https://www.[employer]/Documents/Xp ert%20Xpress%20SAR S%20CoV-2/Fact%20S heets/302-3802%20S ARS-COV-2%20HEALTH CARE%20PROVIDERS%2 0FACT%20SHEET.pdf Fact Sheet for Healthcare Patients: https://www.[employer]le[employer]/Documents/Xp ert%20Xpress%20SAR S%20CoV-2/Fact%20S heets/302-3801%20S ARS-COV-2%20PATIEN T%20FACT%20SHEET.p df Lab Interpretation Normal (test code = 11216-8) [facility])2022-01-28 22:48:12 Test Item Value Reference Range Interpretation Comments SARS-COV2/RT-PCR Negative Negative The SARS-Co V-2 target (test code = nucleic acids a re not 0829750) detected in thi s specimen. Negative result [...] revoked sooner. Fact Sheet for Healthcare Providers: https://www.[place] Everywhere m/Documents/Xpert%20Xpress%20SARS%20CoV-2/Fact%20Sheets/302-3802%42JFRD-DOS-9%20 HEALTHCARE%20PROVIDERS%20FACT%20SHEET.pdf Fact Sheet for Healthcare Patients: https://www.[employer]/Documents/Xpert%20Xp ress%20SARS%20CoV-2/Fact%20Sheets/302-3801%10JYZT-JKX-7%20PATIENT%20FACT%20SHEET .pdfLACTIC ACID, [id number] 21:19:53 Test Item Value Reference Range Interpretation Comments LACTATE BLOOD VENOUS (2) (BEAKER) 2.20 mmol/L 0.50-2.20 (test code = 2872) Anthropology Department Chair ID - BSCOMPREHENSIVE METABOLIC [id number] 18:06:50 Test Item Value Reference Range Interpretation [...] not appl icable for dialysis patien ts Anthropology Department Chair ID - BSLACTIC ACID, [id number] 18:01:50 Test Item Value Reference Range Interpretation Comments LACTATE BLOOD VENOUS 2.25 mmol/L 0.50-2.20 H Specime n moderately (2) (BEAKER) (test hemolyzed code = 8202) Anthropology Department Chair ID - BSCBC W/PLT COUNT & AUTO [id number] 17:47:02 Test Item Value Reference Range Interpretation [...] GRANULOCYTES-RELATIVE PERCENT (BEAKER) (test code = 2801) [id number] 17:40:44 Test Item Value Reference Range Interpretation Comments PARTIAL THROMBOPLASTIN TIME 31.5 seconds 22.5-36.0 (BEAKER) (test code = 760) PROTHROMBIN TIME/[id number] 17:39:43 Test Item Value Reference Range Interpretation Comments PROTIME (BEAKER) 15.1 seconds 11.9-14.2 H (test code = 759) INR (BEAKER) (test 1.21 See_Comment [Automat ed message] code = 370) The system [employer] generated this result transmitted ref erence range: <=5.90. The reference range was not used to int erpret this result as normal/abnormal . RECOMMENDED COUMADIN/WARFARIN INR THERAPY RANGESSTANDARD DOSE: 2.0 - 3.0 Includes: PROPHYLAXIS for venous thrombosis, systemic embolization; TREATMENT for venous thrombosis and/or pulmonary embolus.HIGH RISK: Target INR is 2.5-3.5 for patients with mechanical heart valves.BASIC METABOLIC [id number] 13:59:19 Test Item Value Reference Range Interpretation [...] not appl icable for dialysis patien ts Anthropology Department Chair ID - ASTRID EPATIC FUNCTION [id number] 13:59:19 Test Item Value Reference Range Interpretation [...] (test code = 31 U/L 6-55 347) Anthropology Department Chair ID - ASTRID GPROTHROMBIN TIME/[id number] 13:30:02 Test Item Value Reference Range Interpretation Comments PROTIME (BEAKER) 15.4 seconds 11.9-14.2 H (test code = 759) INR (BEAKER) (test 1.30 See_Comment [Automat ed message] code = 370) The system [employer] generated this result transmitted ref erence range: <=5.90. The reference range was not used to int erpret this result as normal/abnormal . RECOMMENDED COUMADIN/WARFARIN INR THERAPY RANGESSTANDARD DOSE: 2.0 - 3.0 Includes: PROPHYLAXIS for venous thrombosis, systemic embolization; TREATMENT for venous thrombosis and/or pulmonary embolus.HIGH RISK: Target INR is 2.5-3.5 for patients with mechanical heart valves.CBC W/PLT COUNT & AUTO [id number] 13:26:02 Test Item Value Reference Range Interpretation [...] PERCENT (BEAKER) (test code = 2801) POCT-GLUCOSE [id number] 11:38:23 Test Item Value Reference Range Interpretation Comments POC-GLUCOSE METER 161 mg/dL 70-110 H : TESTED A T [facility] 7200 (BEAKER) (test code [place] E BLDG A, = 1538) [facility] 7703 0: Anthropology Department Chair/Techni sanjeev ID = [id number] for DEON ASH MR, ABDOMEN, [id number] 15:19:00with liver protocolwith liver protocolUnlisted Reason for Exam - Click Yes and Enter Reason Below-&gt ;YesUnlisted Reason for Exam->Cirrhosis, evaluate liver, rule out liver mass, lesion. Please do with liver protocolwith liver protocol [facility] : 1965 Sex: FFINALREPORT [...] ascites is considered unlikely. Signed: Damon Cormier Verified Date/Time: 10/04/2021 15:19:15 Reading Location: [facility] Diagnostic Imaging Reading Room - [place] [address] ALPHA FETOPROTEIN (AFP), TUMOR [id number] 13:11:37 Test Item Value Reference Range Interpretation Comments ALPHA-FETOPROTEIN (BEAKER) (test 3.3 ng/mL <10.0 code = 1094) Anthropology Department Chair ID - TRACEYBASIC METABOLIC [id number] 12:58:54 Test Item Value Reference Range Interpretation [...] S NOT APPLICABLE FOR DIALYSIS PATIEN TS. Anthropology Department Chair ID - BRADY CHEPATIC FUNCTION [id number] 12:58:54 Test Item Value Reference Range Interpretation [...] (test code = 21 U/L 6-55 347) Anthropology Department Chair ID - BRADY CPROTHROMBIN TIME/[id number] 12:49:27 Test Item Value Reference Range Interpretation Comments PROTIME (BEAKER) 14.9 seconds 11.9-14.2 H (test code = 759) INR (BEAKER) (test 1.19 See_Comment [Automat ed message] code = 370) The system [employer] generated this result transmitted ref erence range: <=5.90. The reference range was not used to int erpret this result as normal/abnormal . RECOMMENDED COUMADIN/WARFARIN INR THERAPY RANGESSTANDARD DOSE: 2.0 - 3.0 Includes: PROPHYLAXIS for venous thrombosis, systemic embolization; TREATMENT for venous thrombosis and/or pulmonary embolus.HIGH RISK: Target INR is 2.5-3.5 for patients with mechanical heart valves.CBC W/PLT COUNT & AUTO [id number] 12:45:28 Test Item Value Reference Range Interpretation [...] PERCENT (BEAKER) (test code = 2801) BLOOD [id number] 01:01:00 Test Item Value Reference Range Interpretation Comments CULTURE (BEAKER) (test No growth in 5 days code = 1095) The specimen volume collected for this blood culture was below the optimum (10 mL per bottle or 20 mL total). Use of lower volumes may adversely affect recovery and/or detection times of some organisms.BLOOD [id number] 01:01:00 Test Item Value Reference Range Interpretation Comments CULTURE (BEAKER) (test No growth in 5 days code = 1095) The specimen volume collected for this blood culture was below the optimum (10 mL per bottle or 20 mL total). Use of lower volumes may adversely affect recovery and/or detection times of some organisms.POCT-GLUCOSE [id number] 09:58:16 Test Item Value Reference Range Interpretation Comments POC-GLUCOSE METER 170 mg/dL 70-110 H : TESTED A T [facility] 6720 (BEAKER) (test code = MICHEL ENGEL MD, 1538) [address]: Anthropology Department Chair/Techni sanjeev ID = [id number] for Gini kadenRenetta COMPREHENSIVE METABOLIC [id number] 07:04:36 Test Item Value Reference Range Interpretation [...] S NOT APPLICABLE FOR DIALYSIS PATIEN TS. Anthropology Department Chair ID - BDNWNGTQPUD0443-69-83 07:04:36 Test Item Value Reference Range Interpretation Comments MAGNESIUM (BEAKER) (test code = 1.6 mg/dL 1.6-2.6 627) Anthropology Department Chair ID - BSPROTHROMBIN TIME/[id number] 06:50:36 Test Item Value Reference Range Interpretation Comments PROTIME (BEAKER) 15.9 seconds 11.9-14.2 H (test code = 759) INR (BEAKER) (test 1.29 See_Comment [Automat ed message] code = 370) The system [employer] generated this result transmitted ref erence range: [...] 0-0 (test code = 413) U/S, ABDOMINAL, [id number] 17:55:00Abdomen limited area? Add comment if clarification is needed.->LiverReason for exam:->perform with doppler to evaluate portal vein patency; evaluating for possible portal cholangiopathy and related thrombosis [facility] : 1965 Sex: FFINALREPORT [...] sonographic evidence for acute cholecystitis. Signed: Isaac Mccauleycarla Verified Date/Time: 09/05/2021 17:55:29 U/S, DUPLEX, [id number] 17:55:00Reason for exam:->perform with doppler to evaluate portal vein patency; evaluating for possible portal cholangiopathy and related thrombosis [facility] : 1965 Sex: FFINALREPORT [...] Signed: Isaac Mccauley Verified Date/Time: 09/05/2021 17:55:29 HEPATOBILIARY [id number] 17:15:00Unlisted Reason for Exam - Click Yes and Enter Reason Below->YesUnlisted Reason for Exam->Evalfor cholecystitis [facility] : 1965 Sex: FFINALREPORT PROCEDURE: HEPATOBILIARY SCAN (unstimulated) CPT CODE: 15463 INDICATION:Abdominal pain PROTOCOL: 5.4 mCi of Tc-99m [...] Date/Time: 09/05/2021 17:15:06 URINALYSIS W/ REFLEX URINE [id number] 15:47:29 Test Item Value Reference Range Interpretation [...] = 1521) SOURCE(BEAKER) (test code = 2795) Anthropology Department Chair ID - [auto]Anthropology Department Chair ID - techCT, CHEST WITH IV CONTRAST- PE TEST DESIGN 2021-09-05 03:12:00Unlisted Reason for Exam - Click Yes and Enter Reason Below->[facility] : 1965 Sex: FFINALREPORT Comparison: [...] evaluation with HIDA scan. Signed: Gregorio Cook MDReport Verified Date/Time: 09/05/2021 03:12:52 CT, [id number] 03:12:00Unlisted Reason for Exam - Click Yes and Enter Reason Below->NoIs this for enterography?->NoWill this procedure require oral contrast?->No [facility] : 1965 Sex: FFINALREPORT Comparison: [...] evaluation with HIDA scan. Signed: Gregorio Cook [facility] Verified Date/Time: 09/05/2021 03:12:52 SARS-COV2/RT-PCR ([facility])2021-09-05 01:09:11 Test Item Value Reference Range Interpretation Comments SARS-COV2/RT-PCR Negative Negative The SARS-Co V-2 target (test code = nucleic acids a re not 6897542) detected in thi s specimen. Negative result [...] revoked sooner. Fact Sheet for Healthcare Providers: https://www.[place] Everywhere m/Documents/Xpert%20Xpress%20SARS%20CoV-2/Fact%20Sheets/302-3802%82HIKA-RXD-8%20 HEALTHCARE%20PROVIDERS%20FACT%20SHEET.pdf Fact Sheet for Healthcare Patients: https://www.[employer]/Documents/Xpert%20Xp ress%20SARS%20CoV-2/Fact%20Sheets/302-3801%65CZZI-VWF-9%20PATIENT%20FACT%20SHEET .pdfTSH/FREE T4 IF [id number] 00:56:26 Test Item Value Reference Range Interpretation Comments THYROID STIMULATING HORMONE 3.139 uIU/mL 0.350-4.940 ([email or web address]) (test code = 772) Anthropology Department Chair ID - BSHIGH SENSITIVITY TROPONIN [id number] 00:41:40 Test Item Value Reference Range Interpretation Comments HIGH SENSITIVITY < pg/ml See_Comment [Automated message] TROPONIN I (test code = The system which 0723123) generated this result transmitted ref erence range: <=17. Th e reference range was not used to interpr et this result as normal/abnormal . Anthropology Department Chair ID - BSThe CPC CODER STAT High Sensitivity Troponin-I results should be used in conjunctionwith other diagnostic information such as ECG, clinical observations and information, and patient symptoms to aid in the diagnosis of NH.B-TYPE NATRIURETIC FACTOR (BNP)2021-09-05 00:40:21 Test Item Value Reference Range Interpretation Comments B-TYPE NATRIURETIC PEPTIDE ([email or web address]) 30 pg/mL 0-100 (test code = 700) Anthropology Department Chair ID - CYDYVOGT5391-57-91 00:36:01 Test Item Value Reference Range Interpretation Comments LIPASE (Thumbs Up) (test code = 749) 112 U/L 8-78 H Anthropology Department Chair ID - BSCOMPREHENSIVE METABOLIC [id number] 00:36:00 Test Item Value Reference Range Interpretation [...] S NOT APPLICABLE FOR DIALYSIS PATIEN TS. Anthropology Department Chair ID - KOVUKAEJUXS1662-28-31 00:36:00 Test Item Value Reference Range Interpretation Comments MAGNESIUM (BEAKER) (test code = 1.6 mg/dL 1.6-2.6 627) Anthropology Department Chair ID - BSLACTIC ACID, [id number] 00:28:36 Test Item Value Reference Range Interpretation Comments LACTATE BLOOD VENOUS (2) (BEAKER) 1.31 mmol/L 0.50-2.20 (test code = 2872) Anthropology Department Chair ID - XGN-[id number] 00:11:19 Test Item Value Reference Range Interpretation [...] within 95-100% range.RAD, CHEST, 1 VIEW, NON [id number] 00:10:00Reason for exam:->ABDOMINAL PAINReason for exam:->RECTAL BLEEDINGShould this be performed at the bedside?->Yes[facility] : 1965 Sex: FFINALREPORT RAD, CHEST, 1 VIEW, NON DEPT CLINICAL HISTORY: ABDOMINAL PAINRECTAL BLEEDING TECHNIQUE: Single view of the chest. COMPARISON: August 12, 2021 IMPRESSION: There are no focal infiltrates or effusions. No pneumothorax. The cardiomediastinal silhouette is unremarkable for AP technique. The osseous structures appear intact. Signed: Tre Cooper MDReport Verified Date/Time: 09/05/2021 00:10:29 PROTHROMBIN TIME/[id number] 00:08:40 Test Item Value Reference Range Interpretation Comments PROTIME (BEAKER) 15.5 seconds 11.9-14.2 H (test code = 759) INR (BEAKER) (test 1.25 See_Comment [Automat ed message] code = 370) The system [employer] generated this result transmitted ref erence range: <=5.90. The reference range was not used to int erpret this result as normal/abnormal . RECOMMENDED COUMADIN/WARFARIN INR THERAPY RANGESSTANDARD DOSE: 2.0 - 3.0 Includes: PROPHYLAXIS for venous thrombosis, systemic embolization; TREATMENT for venous thrombosis and/or pulmonary embolus.HIGH RISK: Target INR is 2.5-3.5 for patients with mechanical heart valves.CBC W/PLT COUNT & AUTO [id number] 00:03:36 Test Item Value Reference Range Interpretation [...] code = 2801) URINALYSIS W/ REFLEX URINE [id number] 21:37:32 Test Item Value Reference Range Interpretation [...] = 1521) SOURCE(BEAKER) (test code = 2795) Anthropology Department Chair ID - [auto]Anthropology Department Chair ID - techCT, CHEST WITH IV CONTRAST- PE TEST DESIGN 2021-08-12 21:29:00Unlisted Reason for Exam - Click Yes and Enter Reason Below->NoSU[facility] : 1965 Sex: FFINALREPORT [...] MDReport Verified Date/Time: 08/12/2021 21:29:40 SENSITIVITY TROPONIN [id number] 20:29:42 Test Item Value Reference Range Interpretation Comments HIGH SENSITIVITY < pg/ml See_Comment [Automated message] TROPONIN I (test code = The system which [id number]) generated this result transmitted ref erence range: <=17. Th e reference range was not used to interpr et this result as normal/abnormal . Anthropology Department Chair ID - DBThe CPC CODER STAT High Sensitivity Troponin-I results should be used in conjunctionwith other diagnostic information such as ECG, clinical observations and information, and patient symptoms to aid in the diagnosis of NH.SARS-COV2/RT-PCR ([facility])2021-08-12 18:48:38 Test Item Value Reference Range Interpretation Comments SARS-COV2/RT-PCR Negative Negative The SARS-Co V-2 target (test code = nucleic acids a re not [id number]) detected in thi s specimen. Negative result [...] revoked sooner. Fact Sheet for Healthcare Providers: https://www.[place] Everywhere m/Documents/Xpert%20Xpress%20SARS%20CoV-2/Fact%20Sheets/302-2554%70LULU-TMN-0%20 HEALTHCARE%20PROVIDERS%20FACT%20SHEET.pdf Fact Sheet for Healthcare Patients: https://www.[employer]/Documents/Xpert%20Xp ress%20SARS%20CoV-2/Fact%20Sheets/302-3801%70KVFW-ESG-6%20PATIENT%20FACT%20SHEET .munL-[id number] 17:19:51 Test Item Value Reference Range Interpretation [...] exclusion of thrombosis is within 95-100% range. PT/[id number] 17:17:52 Test Item Value Reference Range Interpretation [...] mechanical heart valves.RAD, CHEST, 1 VIEW, NON [id number] 17:15:00Reason for exam:->CHEST PAINShould this be performed at the bedside?->Yes[facility] : 1965 Sex: FFINALREPORT INDICATION: CHEST PAIN COMPARISON: 04/11/21 TECHNIQUE: Single frontal view of the chest. FINDINGS: Lungs and pleura: Clear lungs. No effusion.Heart and mediastinum: Normal heart size. Unremarkable mediastinal contours.Osseous structures: No acute abnormality.Other: None. IMPRESSION: No acute intrathoracic abnormality. Signed: Romina Salamancaepcarla Verified Date/Time: 08/12/2021 17:15:07 B-TYPE NATRIURETIC FACTOR (BNP)2021-08-12 17:08:30 Test Item Value Reference Range Interpretation Comments B-TYPE NATRIURETIC PEPTIDE (BEAKER) 215 pg/mL 0-100 H (test code = 700) Anthropology Department Chair ID - PIAYA LHIGH SENSITIVITY TROPONIN [id number] 17:08:09 Test Item Value Reference Range Interpretation Comments HIGH SENSITIVITY < pg/ml See_Comment [Automated message] TROPONIN I (test code = The system which [id number]) generated this result transmitted ref erence range: <=17. Th e reference range was not used to interpr et this result as normal/abnormal . Anthropology Department Chair ID - PIAYA LThe CPC CODER STAT High Sensitivity Troponin-I results should be used in conjunction with other diagnostic information such as ECG, clinical observations and information, and patient symptoms to aid in the diagnosis of NH.COMPREHENSIVE METABOLIC [id number] 17:02:31 Test Item Value Reference Range Interpretation [...] S NOT APPLICABLE FOR DIALYSIS PATIEN TS. Anthropology Department Chair ID - DENA [id number] 17:02:31 Test Item Value Reference Range Interpretation Comments MAGNESIUM (BEAKER) (test code = 1.7 mg/dL 1.6-2.6 627) Anthropology Department Chair ID - DENA [id number] 17:02:31 Test Item Value Reference Range Interpretation Comments LIPASE (BEAKER) (test code = 749) 119 U/L 8-78 H Anthropology Department Chair ID - DENA [id number] 16:59:45 Test Item Value Reference Range Interpretation Comments AMMONIA (BEAKER) (test 67 mol/L 18-72 Speci men slightly code = 348) hemolyzed Anthropology Department Chair ID - DENA LCBC W/PLT COUNT & AUTO [id number] 16:48:21 Test Item Value Reference Range Interpretation [...] = 2801) CBC W/PLT COUNT & AUTO [id number] 13:19:26 Test Item Value Reference Range Interpretation [...] (BEAKER) (test code = 2801) BASIC METABOLIC [id number] 13:08:56 Test Item Value Reference Range Interpretation [...] S NOT APPLICABLE FOR DIALYSIS PATIEN TS. Anthropology Department Chair ID Joaquin VELAZQUEZ WHEPATIC FUNCTION [id number] 13:08:56 Test Item Value Reference Range Interpretation [...] (test code = 32 U/L 6-55 347) Anthropology Department Chair ID Joaquin VELAZQUEZ WPROTHROMBIN TIME/[id number] 13:08:35 Test Item Value Reference Range Interpretation Comments PROTIME (BEAKER) 14.9 seconds 11.9-14.2 H (test code = 759) INR (BEAKER) (test 1.19 See_Comment [Automat ed message] code = 370) The system [employer] generated this result transmitted ref erence range: <=5.90. The reference range was not used to int erpret this result as normal/abnormal . RECOMMENDED COUMADIN/WARFARIN INR THERAPY RANGESSTANDARD DOSE: 2.0 - 3.0 Includes: PROPHYLAXIS for venous thrombosis, systemic embolization; TREATMENT for venous thrombosis and/or pulmonary embolus.HIGH RISK: Target INR is 2.5-3.5 for patients with mechanical heart valves.BLOOD GAS, [id number] 11:39:25 Test Item Value Reference Range Interpretation [...] code = 1819) 21.0 DRUG SCREEN, URINE, [id number] 09:02:51 Test Item Value Reference Range Interpretation Comments SCAN RESULT (test code = See scanned result [id number]) See scanned resultMR, ABDOMEN, [id number] 14:20:00Unlisted Reason for Exam - Click Yes and Enter Reason Below->YesUnlisted Reason for Exam->cirrhosis [facility] : 1965 Sex: FFINALREPORT TECHNIQUE: MRI of the abdomen WITHOUT and WITH intravenous contrast. INDICATION: Unlisted Reason for Examcirrhosis. COMPARISON: CTs dating back to 01/14/2021 FINDINGS: LOWER THORAX: Unremarkable. LIVER: Nodular, cirrhotic liver. [...] or filling defect.SPLEEN: 16.7 cm splenomegaly.PANCREAS: No focalmasses or ductal dilatation. ADRENALS: No adrenal nodules.KIDNEYS/URETERS: [...] 2.A few arterially hyperenhancing observations without washout orpseudocapsule formation measure up to 0.5 cm. LI-RADS [...] further evaluation with ERCP. Signed: Damon Cormier MDReport Verified Date/Time: 04/18/2021 14:20:11 Reading Location:[facility] Diagnostic Imaging Reading Room - [place] [address] ELLANEOUS LAB [id number] 08:34:53 Test Item Value Reference Range Interpretation Comments SCAN RESULT (test code = see scanned result [id number]) see scanned resultPOCT-GLUCOSE [id number] 12:24:48 Test Item Value Reference Range Interpretation Comments POC-GLUCOSE METER 225 mg/dL 70-110 H : TESTED A T [facility] 6720 (BEAKER) (test code = [facility], 1538) [address]: Anthropology Department Chair/Techni sanjeev ID = [id number] for KASSANDRA REGALADO POCT-GLUCOSE [id number] 07:31:47 Test Item Value Reference Range Interpretation Comments POC-GLUCOSE METER 254 mg/dL 70-110 H : TESTED A T [facility] 6720 (BEAKER) (test code = [facility] [employer] [facility], 1538) 38[address]: Anthropology Department Chair/Techni sanjeev ID = [id number] for KASSANDRA REGALADO [id number] 05:54:17 Test Item Value Reference Range Interpretation Comments MAGNESIUM (BEAKER) (test code = 1.7 mg/dL 1.6-2.6 627) Anthropology Department Chair ID - ASTRID [id number] 05:54:17 Test Item Value Reference Range Interpretation Comments PHOSPHORUS (BEAKER) (test code = 3.3 mg/dL 2.3-4.7 604) Anthropology Department Chair ID - ASTRID GCOMPREHENSIVE METABOLIC [id number] 05:54:16 Test Item Value Reference Range Interpretation [...] S NOT APPLICABLE FOR DIALYSIS PATIEN TS. Anthropology Department Chair ID - ASTRID GPROTHROMBIN TIME/[id number] 05:24:25 Test Item Value Reference Range Interpretation Comments PROTIME (BEAKER) 15.5 seconds 11.9-14.2 H (test code = 759) INR (BEAKER) (test 1.25 See_Comment [Automat ed message] code = 370) The system [employer] generated this result transmitted ref erence range: <=5.90. The reference range was not used to int erpret this result as normal/abnormal . RECOMMENDED COUMADIN/WARFARIN INR THERAPY RANGESSTANDARD DOSE: 2.0 - 3.0 Includes: PROPHYLAXIS for venous thrombosis, systemic embolization; TREATMENT for venous thrombosis and/or pulmonary embolus.HIGH RISK: Target INR is 2.5-3.5 for patients with mechanical heart valves.CBC W/PLT COUNT & AUTO [id number] 05:13:34 Test Item Value Reference Range Interpretation [...] PERCENT (BEAKER) (test code = 2801) POCT-GLUCOSE [id number] 20:54:45 Test Item Value Reference Range Interpretation Comments POC-GLUCOSE METER 369 mg/dL 70-110 H : TESTED A T [facility] 6720 (BEAKER) (test code = [facility], 1538) 96324: Anthropology Department Chair/Techni sanjeev ID = [id number] for Co Niki salter POCT-GLUCOSE [id number] 17:44:33 Test Item Value Reference Range Interpretation Comments POC-GLUCOSE METER 73 mg/dL 70-110 : TESTED A T [facility] 6720 (BEAKER) (test code = [facility], 1538) 828[address]: Anthropology Department Chair/Techni sanjeev ID = [id number] for FAIT H QUETA POCT-GLUCOSE [id number] 12:23:38 Test Item Value Reference Range Interpretation Comments POC-GLUCOSE METER 175 mg/dL 70-110 H : TESTED A T [facility] 6720 (BEAKER) (test code = [facility], 1538) [address]2678: Anthropology Department Chair/Techni sanjeev ID = [id number] for FA HANK QUETA POCT-GLUCOSE [id number] 08:14:03 Test Item Value Reference Range Interpretation Comments POC-GLUCOSE METER 173 mg/dL 70-110 H : TESTED A T [facility] 6720 (BEAKER) (test code = [facility], 1538) 99896: Anthropology Department Chair/Techni sanjeev ID = [id number] for FA HANK, QUETA COMPREHENSIVE METABOLIC [id number] 04:34:04 Test Item Value Reference Range Interpretation [...] S NOT APPLICABLE FOR DIALYSIS PATIEN TS. Anthropology Department Chair ID - ASTRID [id number] 04:34:03 Test Item Value Reference Range Interpretation Comments MAGNESIUM (BEAKER) 1.7 mg/dL 1.6-2.6 Specimen slightly (test code = 627) hemolyzed Anthropology Department Chair ID - ASTRID [id number] 04:34:03 Test Item Value Reference Range Interpretation Comments PHOSPHORUS (BEAKER) 4.3 mg/dL 2.3-4.7 Specimen slightly (test code = 604) hemolyzed Anthropology Department Chair ID - ASTRID GPROTHROMBIN TIME/[id number] 04:23:20 Test Item Value Reference Range Interpretation Comments PROTIME (BEAKER) 14.9 seconds 11.9-14.2 H (test code = 759) INR (BEAKER) (test 1.18 See_Comment [Automat ed message] code = 370) The system [employer] generated this result transmitted ref erence range: <=5.90. The reference range was not used to int erpret this result as normal/abnormal . RECOMMENDED COUMADIN/WARFARIN INR THERAPY RANGESSTANDARD DOSE: 2.0 - 3.0 Includes: PROPHYLAXIS for venous thrombosis, systemic embolization; TREATMENT for venous thrombosis and/or pulmonary embolus.HIGH RISK: Target INR is 2.5-3.5 for patients with mechanical heart valves.CBC W/PLT COUNT & AUTO [id number] 04:08:50 Test Item Value Reference Range Interpretation [...] PERCENT (BEAKER) (test code = 2801) POCT-GLUCOSE [id number] 22:28:39 Test Item Value Reference Range Interpretation Comments POC-GLUCOSE METER 133 mg/dL 70-110 H : TESTED A T [facility] 6720 (BEAKER) (test code = MIC[facility], 1538) [address]: Anthropology Department Chair/Techni sanjeev ID = [id number] for CA ANGELINA BLACKBURN SARS-COV2/RT-PCR ([facility])2021-04-12 21:36:05 Test Item Value Reference Range Interpretation Comments SARS-COV2/RT-PCR Negative Negative The SARS-Co V-2 target (test code = nucleic acids a re not [id number]) detected in thi s specimen. Negative result [...] revoked sooner. Fact Sheet for Healthcare Providers: https://www.cepheid.co m/Documents/Xpert%20Xpress%20SARS%20CoV-2/Fact%20Sheets/302-3802%56MQPX-HLS-4%20 HEALTHCARE%20PROVIDERS%20FACT%20SHEET.pdf Fact Sheet for Healthcare Patients: https://www.[employer]/Documents/Xpert%20Xp ress%20SARS%20CoV-2/Fact%20Sheets/302-3801%26VOVM-TQF-3%20PATIENT%20FACT%20SHEET .pdfCOMPREHENSIVE METABOLIC [id number] 18:32:37 Test Item Value Reference Range Interpretation [...] S NOT APPLICABLE FOR DIALYSIS PATIEN TS. Anthropology Department Chair ID - DBOperator ID - DBHIGH SENSITIVITY TROPONIN [id number] 18:25:54 Test Item Value Reference Range Interpretation Comments HIGH SENSITIVITY < pg/ml See_Comment [Automated message] TROPONIN I (test code = The system which [id number]) generated this result transmitted ref erence range: <=17. Th e reference range was not used to interpr et this result as normal/abnormal . Anthropology Department Chair ID - DBThe CPC CODER STAT High Sensitivity Troponin-I results should be used in conjunctionwith other diagnostic information such as ECG, clinical observations and information, and patient symptoms to aid in the diagnosis of NH.[id number] 18:21:14 Test Item Value Reference Range Interpretation Comments LIPASE (BEAKER) (test code = 749) 102 U/L 8-78 H Anthropology Department Chair ID - DBPROTHROMBIN TIME/[id number] 18:16:11 Test Item Value Reference Range Interpretation [...] mechanical heart valves.CBC W/PLT COUNT & AUTO [id number] 18:02:09 Test Item Value Reference Range Interpretation [...] code = 2801) MYOCARD IMAGING, MULTI, PHARM, [id number] 16:04:00Unlisted Reason for Exam - Click Yes and Enter Reason Below->YesUnlisted Reason for Exam->Liver [facility] : 1965 Sex: FFINALREPORT PROCEDURE: MYOCARDIAL PERFUSION SPECT IMAGING (Rest/Stress)CPT CODE: 03702 INDICATION: Cardiac evaluation prior to liver transplant [...] MDReport Verified Date/Time: 04/12/2021 16:04:45 Reading Location: [address] Reading Room [id number] 10:43:26 Test Item Value Reference Range Interpretation Comments T3 TOTAL (BEAKER) (test code = 0.94 ng/mL 0.60-1.81 656) Anthropology Department Chair ID - [id number] 14:22:58 Test Item Value Reference Range Interpretation Comments RPR SCREEN (BEAKER) (test code = Nonreactive Nonreactive 420) CRYPTOCOCCAL [id number] 14:21:41 Test Item Value Reference Range Interpretation Comments CRYPTOCOCCAL ANTIGEN, SERUM Negative Negative, Interference (BEAKER) (test code = 1828) RAD, MANDIBLE, MIN 4 [id number] 13:53:00Reason for Exam:->[facility] : 1965 Sex: FFINALREPORT MANDIBLE [...] MDReport Verified Date/Time: 04/11/2021 13:53:12 Reading Location: [facility] Radiology Reading Room RUBELLA ANTIBODY, [id number] 13:46:29 Test Item Value Reference Range Interpretation Comments RUBELLA IGG QUANTITATION (BEAKER) 53.0 IU/mL <8.0 H (test code = 572) Rubella IgG Result Interpretation: </= 7.0 IU/mL Negative - Presumed non- immune 8.0 - 9.9 IU/mL Equivocal >= 10.0 IU/mL Positive - Presumed immune VARICELLA ZOSTER ANTIBODY, [id number] 13:46:29 Test Item Value Reference Range Interpretation Comments VARICELLA ZOSTER IGG (AL) (BEAKER) 5.6 (test code = 3197) VARICELLA ZOSTER RESULT INTERPRETATIONS: <=0.8 Al Nonreactive: Presumed non- immune to VZV 0.9-1.0Al Equivocal >=1.1 Al Reactive: Presumed immune to VZV CYTOMEGALOVIRUS ANTIBODY, [id number] 13:46:22 Test Item Value Reference Range Interpretation Comments CYTOMEGALOVIRUS, IGG (BEAKER) Positive Negative, Equivocal A (test code = 3429) CMV IgG Result Interpretation: </= 0.8 Al Negative 0.9-1.0 Al Equivocal >/=1.1 Al PositiveEBV ANTIBODY, [id number] 13:46:22 Test Item Value Reference Range Interpretation Comments SHAYY LAMAS VIRAL CAPSID Positive Negative, Equivocal A ANTIGEN IGG (BEAKER) (test code = 3415) Shayy Lamas Viral Capsid Antigen IgG Result Interpretation: </= 0.8 Al Negative 0.9-1.0 Al Equivocal >/= 1.1 Al PositiveEBV ANTIBODY, [id number] 13:46:22 Test Item Value Reference Range Interpretation Comments SHAYY LAMAS VIRAL CAPSID Negative Negative, Equivocal ANTIGEN IGM (BEAKER) (test code = 3418) Shayy Lamas Viral Capsid Antigen IgM Result Interpretation: </= 0.8 Al Negative 0.9-1.0 Al Equivocal >/= 1.1 Al PositiveRAD, CHEST, 2 VIEWS 2021-04-11 13:37:00Reason for Exam:->Liver [facility] : 1965 Sex: FFINALREPORT [...] and L1 compression fractures. Signed: Urban Aparicio MDRepcarla Verified Date/Time: 04/11/2021 13:37:16 Reading Location: [facility] Radiology Reading Room BLOOD GAS, [id number] 11:39:39 Test Item Value Reference Range Interpretation [...] (test code = 1819) 21.0 VITAMIN D, [id number] 10:29:34 Test Item Value Reference Range Interpretation Comments VITAMIN D 25-OH (BEAKER) (test 13.1 ng/mL 6.6-49.9 code = 2764) Effective 03/12/2017: Reference Range ChangeNew: 6.6-49.9 ng/mL Previous: 13.0- 47.8 ng/mLRecommendedVitamin D Target Range: 30.0-40.0 ng/mLOperator ID - DENA LHEMOGLOBIN [id number] 10:20:10 Test Item Value Reference Range Interpretation Comments HEMOGLOBIN A1C (BEAKER) (test code = 6.7 % 4.3-6.1 H 368) CARCINOEMBRYONIC ANTIGEN (CEA)2021-04-11 10:03:38 Test Item Value Reference Range Interpretation Comments CARCINOEMBRYONIC ANTIGEN (BEAKER) 14.5 ng/mL 0.0-5.0 H (test code = 685) Anthropology Department Chair ID - DENA LALPHA FETOPROTEIN (AFP), TUMOR [id number] 10:03:38 Test Item Value Reference Range Interpretation Comments ALPHA-FETOPROTEIN (BEAKER) (test 5.4 ng/mL <10.0 code = 1094) Anthropology Department Chair ID - DENA LURINALYSIS W/ [id number] 09:49:36 Test Item Value Reference Range Interpretation [...] = 1521) SOURCE(BEAKER) (test code = 2795) Anthropology Department Chair ID - [auto]Anthropology Department Chair ID - [id number] 09:08:39 Test Item Value Reference Range Interpretation Comments T4 TOTAL (BEAKER) (test code = 895) 5.9 ug/dL 4.9-11.7 Anthropology Department Chair ID - DENA [id number] 09:08:39 Test Item Value Reference Range Interpretation Comments THYROID STIMULATING HORMONE 2.023 uIU/mL 0.350-4.940 (BEAKER) (test code = 772) Anthropology Department Chair ID - PICRISTINA LPREGNANCY SCREEN, [id number] 08:59:02 Test Item Value Reference Range Interpretation Comments TEST URINE (BEAKER) (test Negative code = 583) [id number] 08:53:55 Test Item Value Reference Range Interpretation Comments TRANSFERRIN (BEAKER) (test code = 248 mg/dL 174-382 541) Anthropology Department Chair ID - EDNA LBILIRUBIN, [id number] 08:50:00 Test Item Value Reference Range Interpretation Comments BILIRUBIN DIRECT (BEAKER) (test 0.3 mg/dL 0.1-0.5 code = 706) Anthropology Department Chair ID - DENA LGAMMA GLUTAMYL TRANSFERASE (GGT)2021-04-11 08:50:00 Test Item Value Reference Range Interpretation Comments GAMMA GLUTAMYL TRANSFERASE (BEAKER) 106 U/L 9-64 H (test code = 364) Anthropology Department Chair ID - DENA LURIC [id number] 08:49:55 Test Item Value Reference Range Interpretation Comments URIC ACID (BEAKER) (test code = 3.6 mg/dL 2.6-7.2 773) Anthropology Department Chair ID - PICRISTINA LLIPID [id number] 08:49:55 Test Item Value Reference Range Interpretation [...] Borderline 130-159 High 160-189 Very High >=190 Anthropology Department Chair YOSEF FERNANDES LCOMPREHENSIVE METABOLIC [id number] 08:49:54 Test Item Value Reference Range Interpretation [...] S NOT APPLICABLE FOR DIALYSIS PATIEN TS. Anthropology Department Chair ID - DENA [id number] 08:49:54 Test Item Value Reference Range Interpretation Comments MAGNESIUM (BEAKER) (test code = 1.8 mg/dL 1.6-2.6 627) Anthropology Department Chair ID - DENA [id number] 08:44:52 Test Item Value Reference Range Interpretation Comments ETHANOL (BEAKER) < mg/dL See_Comment [Automated message] The (test code = 400) system whi ch generated this result tra nsmitted reference range : <=10. The reference r mago was not used to int erpret this result as normal/abnormal . Anthropology Department Chair ID - DENA [id number] 08:32:06 Test Item Value Reference Range Interpretation Comments FIBRINOGEN LEVEL (BEAKER) (test 265 mg/dl 225-434 code = 658) [id number] 08:32:06 Test Item Value Reference Range Interpretation Comments PARTIAL THROMBOPLASTIN TIME 29.0 seconds 22.5-36.0 (BEAKER) (test code = 760) PROTHROMBIN [id number] 08:31:30 Test Item Value Reference Range Interpretation Comments PROTIME (BEAKER) 14.1 seconds 11.9-14.2 (test code = 759) INR (BEAKER) (test 1.11 See_Comment [Automat ed message] code = 370) The system [employer] h generated this result transmitted ref erence range: <=5.90. The reference range was not used to int erpret this result as normal/abnormal . RECOMMENDED COUMADIN/WARFARIN INR THERAPY RANGESSTANDARD DOSE: 2.0 - 3.0 Includes: PROPHYLAXIS for venous thrombosis, systemic embolization; TREATMENT for venous thrombosis and/or pulmonary embolus.HIGH RISK: Target INR is 2.5-3.5 for patients with mechanical heart valves.CBC W/PLT COUNT & AUTO [id number] 08:25:27 Test Item Value Reference Range Interpretation [...] PERCENT (BEAKER) (test code = 2801) CALCIUM, [id number] 08:17:07 Test Item Value Reference Range Interpretation Comments CALCIUM IONIZED (BEAKER) (test 1.20 mmol/L 1.12-1.27 code = 698) PH, BLOOD (BEAKER) (test code = 7.38 1810) COMPREHENSIVE METABOLIC [id number] 09:52:02 Test Item Value Reference Range Interpretation [...] S NOT APPLICABLE FOR DIALYSIS PATIEN TS. Anthropology Department Chair ID - PICRISTINA LOperator ID - PIAYA LPOCT-GLUCOSE [id number] 08:16:36 Test Item Value Reference Range Interpretation Comments POC-GLUCOSE METER 222 mg/dL 70-110 H : TESTED A T [facility] 6720 (BEAKER) (test code = MICHEL ENGEL MD, 1538) 63359: Anthropology Department Chair/Techni sanjeev ID = [id number] for Bess Lares PROTHROMBIN TIME/[id number] 07:26:15 Test Item Value Reference Range Interpretation Comments PROTIME (BEAKER) 15.7 seconds 11.9-14.2 H (test code = 759) INR (BEAKER) (test 1.27 See_Comment [Automat ed message] code = 370) The system [employer] generated this result transmitted ref erence range: <=5.90. The reference range was not used to int erpret this result as normal/abnormal . RECOMMENDED COUMADIN/WARFARIN INR THERAPY RANGESSTANDARD DOSE: 2.0 - 3.0 Includes: PROPHYLAXIS for venous thrombosis, systemic embolization; TREATMENT for venous thrombosis and/or pulmonary embolus.HIGH RISK: Target INR is 2.5-3.5 for patients with mechanical heart valves.CBC W/PLT COUNT & AUTO [id number] 07:19:16 Test Item Value Reference Range Interpretation [...] PERCENT (BEAKER) (test code = 2801) POCT-GLUCOSE [id number] 23:04:19 Test Item Value Reference Range Interpretation Comments POC-GLUCOSE METER 280 mg/dL 70-110 H : TESTED A T [facility] 6720 (BEAKER) (test code = [facility], 1538) [address]: Anthropology Department Chair/Techni sanjeev ID = [id number] for ON UOHA, JAROD POCT-GLUCOSE [id number] 16:00:21 Test Item Value Reference Range Interpretation Comments POC-GLUCOSE METER 166 mg/dL 70-110 H : TESTED A T [facility] 6720 (BEAKER) (test code = [facility], 1538) 875[address]: Anthropology Department Chair/Techni sanjeev ID = [id number] for Bess Lares HEMOGLOBIN AND [id number] 13:22:38 Test Item Value Reference Range Interpretation Comments HEMOGLOBIN (BEAKER) (test code = 10.8 GM/DL 11.2-15.7 L 410) HEMATOCRIT (BEAKER) (test code = 32.9 % 34.1-44.9 L 411) Anthropology Department Chair ID - [id number] [id number] 11:43:51 Test Item Value Reference Range Interpretation Comments HEMOGLOBIN A1C (BEAKER) (test code = 6.4 % 4.3-6.1 H 368) POCT-GLUCOSE [id number] 11:23:09 Test Item Value Reference Range Interpretation Comments POC-GLUCOSE METER 181 mg/dL 70-110 H : TESTED A T [facility] 6720 (BEAKER) (test code = MICHEL Royal [place], 1538) [address]: Anthropology Department Chair/Techni sanjeev ID = [id number] for Bess Lares POCT-GLUCOSE [id number] 07:28:05 Test Item Value Reference Range Interpretation Comments POC-GLUCOSE METER 189 mg/dL 70-110 H : TESTED A T [facility] 6720 (BEAKER) (test code = MICHEL Royal [place], 1538) 269[address]: Anthropology Department Chair/Techni sanjeev ID = [id number] for Bess Lares HEPATIC FUNCTION [id number] 06:10:18 Test Item Value Reference Range Interpretation [...] (test code = 26 U/L 6-55 347) Anthropology Department Chair ID - MAGDIEL [id number] 06:10:17 Test Item Value Reference Range Interpretation Comments MAGNESIUM (BEAKER) (test code = 1.5 mg/dL 1.6-2.6 L 627) Anthropology Department Chair ID - MAGDIEL MBASIC METABOLIC [id number] 06:10:16 Test Item Value Reference Range Interpretation [...] S NOT APPLICABLE FOR DIALYSIS PATIEN TS. Anthropology Department Chair ID - MAGDIEL MPROTHROMBIN TIME/[id number] 05:40:00 Test Item Value Reference Range Interpretation Comments PROTIME (BEAKER) 15.9 seconds 11.9-14.2 H (test code = 759) INR (BEAKER) (test 1.30 See_Comment [Automat ed message] code = 370) The system [employer] generated this result transmitted ref erence range: <=5.90. The reference range was not used to int erpret this result as normal/abnormal . RECOMMENDED COUMADIN/WARFARIN INR THERAPY RANGESSTANDARD DOSE: 2.0 - 3.0 Includes: PROPHYLAXIS for venous thrombosis, systemic embolization; TREATMENT for venous thrombosis and/or pulmonary embolus.HIGH RISK: Target INR is 2.5-3.5 for patients with mechanical heart valves.HEMOGLOBIN AND [id number] 05:35:58 Test Item Value Reference Range Interpretation Comments HEMOGLOBIN (BEAKER) (test code = 10.2 GM/DL 11.2-15.7 L 410) HEMATOCRIT (BEAKER) (test code = 32.0 % 34.1-44.9 L 411) CBC W/PLT COUNT & AUTO [id number] 05:35:56 Test Item Value Reference Range Interpretation [...] PERCENT (BEAKER) (test code = 2801) POCT-GLUCOSE [id number] 23:23:05 Test Item Value Reference Range Interpretation Comments POC-GLUCOSE METER 151 mg/dL 70-110 H : TESTED Pedro T [facility] 6720 (BEAKER) (test code = MICHEL ENG[place], 1538) 594[address]: Anthropology Department Chair/Techni sanjeev ID = [id number] for ON UOHA, JAROD HEMOGLOBIN AND [id number] 23:02:32 Test Item Value Reference Range Interpretation Comments HEMOGLOBIN (MITA) (test code = 10.9 GM/DL 11.2-15.7 L 410) HEMATOCRIT (MITA) (test code = 34.1 % 34.1-44.9 411) Anthropology Department Chair ID - [id number]-GLUCOSE [id number] 19:23:43 Test Item Value Reference Range Interpretation Comments POC-GLUCOSE METER 174 mg/dL 70-110 H : TESTED A T [facility] 6720 (MITA) (test code = MICHEL Lele ENG[place], 1538) 94331: Anthropology Department Chair/Techni sanjeev ID = [id number] for Aisha Britt SARS-COV2/RT-PCR ([facility])2021-03-23 14:56:48 Test Item Value Reference Range Interpretation Comments SARS-COV2/RT-PCR Negative Negative The SARS-Co V-2 target (test code = nucleic acids a re not 8171311) detected in thi s specimen. Negative result [...] revoked sooner. Fact Sheet for Healthcare Providers: https://www.cepheid.co m/Documents/Xpert%20Xpress%20SARS%20CoV-2/Fact%20Sheets/802-8688%54GJKC-LCS-3%20 HEALTHCARE%20PROVIDERS%20FACT%20SHEET.pdf Fact Sheet for Healthcare Patients: https://www.[employer]/Documents/Xpert%20Xp ress%20SARS%20CoV-2/Fact%20Sheets/302-3801%49YBSK-PVH-2%20PATIENT%20FACT%20SHEET .[id number] 14:38:02 Test Item Value Reference Range Interpretation Comments LIPASE (BEAKER) (test code = 749) 89 U/L 8-78 H Anthropology Department Chair ID - EMERSONBASIC METABOLIC [id number] 14:38:01 Test Item Value Reference Range Interpretation [...] S NOT APPLICABLE FOR DIALYSIS PATIEN TS. Anthropology Department Chair ID - EMERSONHEPATIC FUNCTION [id number] 14:38:01 Test Item Value Reference Range Interpretation [...] (test code = 32 U/L 6-55 347) Anthropology Department Chair ID - NEDCBC W/PLT COUNT & AUTO [id number] 14:18:03 Test Item Value Reference Range Interpretation [...] GRANULOCYTES-RELATIVE PERCENT (BEAKER) (test code = 2801) [id number] 14:12:16 Test Item Value Reference Range Interpretation [...] 2.5-3.5 for patients with mechanical heart valves.POCT-GLUCOSE [id number] 15:03:21 Test Item Value Reference Range Interpretation Comments POC-GLUCOSE METER 125 mg/dL 70-110 H : TESTED A T [facility] 6720 (BEAKER) (test code = MICHEL [place], 1538) 81365: Anthropology Department Chair/Techni sanjeev ID = [id number] for SHELLEY WRIGHT BASIC METABOLIC [id number] 10:30:15 Test Item Value Reference Range Interpretation [...] S NOT APPLICABLE FOR DIALYSIS PATIEN TS. Anthropology Department Chair ID - PIAYA LCBC W/PLT COUNT & AUTO [id number] 10:18:28 Test Item Value Reference Range Interpretation [...] PERCENT (BEAKER) (test code = 2801) CT, [id number] 18:39:00Unlisted Reason for Exam - Click Yes and Enter Reason Below->YesUnlisted Reason for Exam->TIPSplanningWill this procedure require oral contrast?->No [facility] : 1965 Sex: FFINALREPORT ABDOMINAL AND PELVIS CT DATED 03/08/2021 COMPARISON: January 14, 2021 CLINICAL INFORMATION: Portal hypertensionTIPS planning TECHNIQUE: Axial images of the abdomen and pelvis were obtained from diaphragm to the pubic symphysis with intravenous contrast. This exam was performed according to our departmental dose-optimization program, which includes automated exposure control,adjustment of the mA and/or kV according to patient size and/or use of interactive reconstruction technique. COMMENT: Liver is cirrhotic in appearance with irregular margins. No abnormal enhancement orsuspicious mass is seen in the liver. Spleen is enlarged measuring approximately 14.5 x 6.6 x 10.17.The splenic, spleen mesenteric, portal, and hepatic veins [...] likely secondary to nondistention. Signed: Steven Murillo MDReport Verified Date/Time: 03/08/2021 18:39:08 Reading Location: [place] [address] Body Reading Room POCT-GLUCOSE [id number] 18:25:50 Test Item Value Reference Range Interpretation Comments POC-GLUCOSE METER 138 mg/dL 70-110 H : TESTED [facility] T [facility] 6720 (Thumbs Up) (test code = [facility], 1538) 38120: Anthropology Department Chair/Techni sanjeev ID = [id number] for WI LLIS, ANAYA POCT-GLUCOSE [id number] 14:11:45 Test Item Value Reference Range Interpretation Comments POC-GLUCOSE METER 207 mg/dL 70-110 H : TESTED A T [facility] 6720 (Thumbs Up) (test code = [facility], 1538) 74390: Anthropology Department Chair/Techni sanjeev ID = [id number] for WI LLIS, NAAYA CBC W/PLT COUNT & AUTO [id number] 05:09:37 Test Item Value Reference Range Interpretation Comments WHITE BLOOD CELL COUNT 2.9 K/ L 3.5-10.5 L (Thumbs Up) (test code = 775) RED BLOOD CELL [...] (BEAKER) (test code = 2801) HEPATIC FUNCTION [id number] 05:06:54 Test Item Value Reference Range Interpretation [...] Specimen slightly (test code = 347) hemolyzed Anthropology Department Chair ID - PIAYA LBASIC METABOLIC [id number] 05:06:53 Test Item Value Reference Range Interpretation [...] S NOT APPLICABLE FOR DIALYSIS PATIEN TS. Anthropology Department Chair ID - PIAYA LPROTHROMBIN TIME/[id number] 04:58:22 Test Item Value Reference Range Interpretation [...] patients with mechanical heart valves.HIGH SENSITIVITY TROPONIN [id number] 22:25:04 Test Item Value Reference Range Interpretation Comments HIGH SENSITIVITY < pg/ml See_Comment [Automated message] TROPONIN I (test code = The system which [id number]) generated this result transmitted ref erence range: <=17. Th e reference range was not used to interpr et this result as normal/abnormal . Anthropology Department Chair ID - CDPThe CPC CODER STAT High Sensitivity Troponin-I results should be used in conjunction with other diagnostic information such as ECG, clinical observations and information, and patient symptoms to aid in the diagnosis of NH.RAD, CHEST, 1 VIEW, NON [id number] 22:13:00Reason for exam:->RECTAL BLEEDINGReason for exam:->HEMATEMESISShould [facility] : 1965 Sex: FFINALREPORT Chest, 1 view. History: Rectal bleeding and hematemesis. Comparison: None available. Findings: The cardiomediastinal silhouette and pulmonary vasculature are within normal limits for a portable exam. The lungs are clear without evidence of consolidation or effusion. The soft tissues and osseous structures are intact. IMPRESSION: No acute cardiopulmonary abnormality. Signed: Gregorio Cookcarla Verified Date/Time: 03/07/2021 22:13:00 [id number] 20:49:29 Test Item Value Reference Range Interpretation Comments AMMONIA (BEAKER) (test code = 348) 36 mol/L 18-72 Anthropology Department Chair ID - EMERSONSARS-COV2/RT-PCR ([facility])2021-03-07 20:32:21 Test Item Value Reference Range Interpretation Comments SARS-COV2/RT-PCR Negative Negative The SARS-Co V-2 target (test code = nucleic acids a re not 0357360) detected in thi s specimen. Negative result [...] revoked sooner. Fact Sheet for Healthcare Providers: https://www.cepheid.co m/Documents/Xpert%20Xpress%20SARS%20CoV-2/Fact%20Sheets/302-3802%02FFIA-OYN-9%20 HEALTHCARE%20PROVIDERS%20FACT%20SHEET.pdf Fact Sheet for Healthcare Patients: https://www.[employer]/Documents/Xpert%20Xp ress%20SARS%20CoV-2/Fact%20Sheets/302-3801%56LQFU-JHV-8%20PATIENT%20FACT%20SHEET .pdfCOMPREHENSIVE METABOLIC [id number] 19:51:17 Test Item Value Reference Range Interpretation Comments TOTAL PROTEIN 7.6 gm/dL 6.0-8.3 Specimen marke dly (BEAKER) (test code = hemoly zed 770) ALBUMIN (BEAKER) 3.7 g/dL 3.5-5.0 Specimen ma rkedly (test code = 1145) hemolyzed ALKALINE PHOSPHATASE 117 U/L 40-150 (BEAKER) (test code = 346) BILIRUBIN TOTAL 0.5 mg/dL 0.2-1.2 Specimen armen herringdlhan (BEAKER) (test code = hemoly zed 377) [...] S NOT APPLICABLE FOR DIALYSIS PATIEN TS. Anthropology Department Chair ID - [id number] 19:51:17 Test Item Value Reference Range Interpretation Comments LIPASE (BEAKER) (test code = 749) 120 U/L 8-78 H Anthropology Department Chair ID - EMERSONPT/[id number] 19:47:57 Test Item Value Reference Range Interpretation [...] mechanical heart valves.CBC W/PLT COUNT & AUTO [id number] 19:37:50 Test Item Value Reference Range Interpretation [...] GRANULOCYTES-RELATIVE PERCENT (BEAKER) (test code = 2801) [id number] 13:29:10 Test Item Value Reference Range Interpretation Comments POC-CREATININE 0.9 mg/dL 0.6-1.3 : TESTED AT [facility] (BEAKER) (test [address], code = 1859) [facility] 7703 0: Anthropology Department Chair/Techni sanjeev ID = [id number] for Rosanna Edward POC-EGFR (BEAKER) 65 mL/min/1.73M2 (test code = 1860) POCT-GLUCOSE [id number] 12:21:00 Test Item Value Reference Range Interpretation Comments POC-GLUCOSE METER 259 mg/dL 70-110 H : TESTED A T [facility] 6720 (BEAKER) (test code = MICHEL Royal [facility], 1538) 86135: Anthropology Department Chair/Techni sanjeev ID = [id number] for ONELIA REGALADO BASIC METABOLIC [id number] 10:39:00 Test Item Value Reference Range Interpretation [...] S NOT APPLICABLE FOR DIALYSIS PATIEN TS. Anthropology Department Chair ID - PIAYA LPOCT-GLUCOSE [id number] 07:22:00 Test Item Value Reference Range Interpretation Comments POC-GLUCOSE METER 208 mg/dL 70-110 H : TESTED A T [facility] 6720 (BEAKER) (test code = MICHEL [place], 1538) 6[address]: Anthropology Department Chair/Techni sanjeev ID = [id number] for ONELIA REGALADO PROTHROMBIN TIME/[id number] 06:25:00 Test Item Value Reference Range Interpretation Comments PROTIME (BEAKER) 16.9 seconds 11.9-14.2 H (test code = 759) INR (BEAKER) (test 1.40 See_Comment [Automat ed message] code = 370) The system [employer] generated this result transmitted ref erence range: <=5.90. The reference range was not used to int erpret this result as normal/abnormal . RECOMMENDED COUMADIN/WARFARIN INR THERAPY RANGESSTANDARD DOSE: 2.0 - 3.0 Includes: PROPHYLAXIS for venous thrombosis, systemic embolization; TREATMENT for venous thrombosis and/or pulmonary embolus.HIGH RISK: Target INR is 2.5-3.5 for patients with mechanical heart valves.CBC W/PLT COUNT & AUTO [id number] 06:18:00 Test Item Value Reference Range Interpretation [...] 417) IMMATURE GRANULOCYTES-RELATIVE 1 % 0-1 PERCENT ([facility]) (test code = 2801) POCT-GLUCOSE [id number] 21:27:00 Test Item Value Reference Range Interpretation Comments POC-GLUCOSE METER 308 mg/dL 70-110 H : Notified RN/MD: ([facility]) (test code = TESTED AT [place] [address] 1538) [facility], [address]: Anthropology Department Chair/Techni sanjeev ID = [id number] for Romina Lomeli POCT-GLUCOSE [id number] 18:07:00 Test Item Value Reference Range Interpretation Comments POC-GLUCOSE METER 294 mg/dL 70-110 H : TESTED A T [facility] 6720 ([facility]) (test code = [facility], 1538) [address]: Anthropology Department Chair/Techni sanjeev ID = [id number] for Jessica CABRERA POCT-GLUCOSE [id number] 13:24:00 Test Item Value Reference Range Interpretation Comments POC-GLUCOSE METER 156 mg/dL 70-110 H : TESTED A T [facility] 6720 ([facility]) (test code = [facility], 1538) [address]: Anthropology Department Chair/Techni sanjeev ID = [id number] for Jessica CABRERA CBC W/PLT COUNT & AUTO [id number] 06:50:00 Test Item Value Reference Range Interpretation [...] (BEAKER) (test code = 2801) BASIC METABOLIC [id number] 06:20:00 Test Item Value Reference Range Interpretation [...] S NOT APPLICABLE FOR DIALYSIS PATIEN TS. Anthropology Department Chair ID - DBPROTHROMBIN TIME/[id number] 05:46:00 Test Item Value Reference Range Interpretation Comments PROTIME (BEAKER) 15.9 seconds 11.9-14.2 H (test code = 759) INR (BEAKER) (test 1.29 See_Comment [Automat ed message] code = 370) The system [employer] generated this result transmitted ref erence range: <=5.90. The reference range was not used to int erpret this result as normal/abnormal . RECOMMENDED COUMADIN/WARFARIN INR THERAPY RANGESSTANDARD DOSE: 2.0 - 3.0 Includes: PROPHYLAXIS for venous thrombosis, systemic embolization; TREATMENT for venous thrombosis and/or pulmonary embolus.HIGH RISK: Target INR is 2.5-3.5 for patients with mechanical heart valves.POCT-GLUCOSE [id number] 05:45:00 Test Item Value Reference Range Interpretation Comments POC-GLUCOSE METER 179 mg/dL 70-110 H : TESTED Pedro T [facility] 6720 (BEEDISON) (test code = MICHEL Royal [facility], 1538) [address]: Anthropology Department Chair/Techni sanjeev ID = [id number] for Ol avanidebpedroIngahan CT, [id number] 18:12:00Unlisted Reason for Exam - Click Yes and Enter Reason Below->NoWill this procedure require oral contrast?->No [facility] : 1965 Sex: FFINALREPORT CT [...] indeterminate compression deformity of L1. Signed: Omid Gaoeport Verified Date/Time: 01/14/2021 18:12:20 Reading Location: [address] Consult Reading Room POCT-GLUCOSE [id number] 17:52:00 Test Item Value Reference Range Interpretation Comments POC-GLUCOSE METER 239 mg/dL 70-110 H : TESTED A T [facility] 6720 (BEAKER) (test code = MICHEL ENGEL [place], 1538) 47[address]: Anthropology Department Chair/Techni sanjeev ID = [id number] for ONELIA REGALADO HEMOGLOBIN AND [id number] 13:32:00 Test Item Value Reference Range Interpretation Comments HEMOGLOBIN (MITA) (test code = 7.5 GM/DL 11.2-15.7 L 410) HEMATOCRIT (MITA) (test code = 24.7 % 34.1-44.9 L 411) Anthropology Department Chair ID - [id number] ID - [id number]-GLUCOSE [id number] 12:20:00 Test Item Value Reference Range Interpretation Comments POC-GLUCOSE METER 226 mg/dL 70-110 H : TESTED A T [facility] 6720 (MITA) (test code = EDVINNE Lele [facility], 1538) 74[address]: Anthropology Department Chair/Techni sanjeev ID = [id number] for ONELIA REGALADO SARS-COV2/RT-PCR ([facility])2021-01-14 10:06:00 Test Item Value Reference Range Interpretation Comments SARS-COV2/RT-PCR (test Negative Not Detected, Negative, code = 3892224) See external report for linked test SARS-COV-[address] [facility] GIN (test code = 7527187) Negative result for this test determines that [...] of the Act.Fact Sheet for Healthcare Prov iders:https://www.CaseRails/sites/default/files/product/documents/Fact_Sheet_HC _Ixypghqqw_Uxrf_ILEN-KcT-2.pdfFact Sheet for Healthcare Patients:https://www.[employer]Rails/sites/default/files/product/docume nts/Uqad_Bpyna_Unvnnyyc_Sbyq_JLXF-XcB-0.pdfPerforming Laboratory:[address], [place] [address]RZIS-CPHKEIS METER 2021-01-14 06:19:00 Test Item Value Reference Range Interpretation Comments POC-GLUCOSE METER 139 mg/dL 70-110 H : Notified RN/MD: (MITA) (test code = TESTED AT [place] [id number] 1538) [facility], [address]: Anthropology Department Chair/Techni sanjeev ID = [id number] for ANSON COSME [id number] 06:10:00 Test Item Value Reference Range Interpretation Comments FERRITIN (BEAKER) (test code = 14.20 ng/mL 5.00-275.00 361) Anthropology Department Chair ID - MAGDIEL MBASIC METABOLIC [id number] 05:50:00 Test Item Value Reference Range Interpretation [...] S NOT APPLICABLE FOR DIALYSIS PATIEN TS. Anthropology Department Chair ID - MAGDIEL DANTE, TIBC, % SAT. (WITHOUT FERRITIN)2021-01-14 05:49:00 Test Item Value Reference Range Interpretation Comments IRON (BEAKER) (test code = 547) 57.0 ug/dL 40.0-160.0 TOTAL IRON BINDING CAPACITY 351 ug/dL 250-450 (BEAKER) (test code = 769) IRON % SATURATION (2) (BEAKER) 16 % 20-55 L (test code = 2590) Anthropology Department Chair ID - MAGDIEL MCBC W/PLT COUNT & AUTO [id number] 05:25:00 Test Item Value Reference Range Interpretation [...] PERCENT (BEAKER) (test code = 2801) POCT-GLUCOSE [id number] 00:46:00 Test Item Value Reference Range Interpretation Comments POC-GLUCOSE METER 197 mg/dL 70-110 H : TESTED A T [facility] 6720 (BEAKER) (test code = [facility], 153) [address]: Anthropology Department Chair/Techni sanjeev ID = [id number] for ANSON COSME HEMOGLOBIN AND [id number] 20:51:00 Test Item Value Reference Range Interpretation Comments HEMOGLOBIN (BEAKER) (test code = 7.1 GM/DL 11.2-15.7 L 410) HEMATOCRIT (BEAKER) (test code = 23.7 % 34.1-44.9 L 411) Anthropology Department Chair ID - [id number] ID - [id number]-GLUCOSE [id number] 17:42:00 Test Item Value Reference Range Interpretation Comments POC-GLUCOSE METER 230 mg/dL 70-110 H : TESTED A T [facility] 6720 (BEAKER) (test code = [facility], 153) [address]: Anthropology Department Chair/Techni sanjeev ID = [id number] for ONELIA REGALADO U/S, ABDOMINAL, [id number] 17:38:00Reason for exam:->cirrhosis, evaluate for ascites [facility] : 1965 Sex: FFINALREPORT TECHNIQUE: Grayscale ultrasound of the four quadrants of the abdomen. INDICATION: cirrhosis, evaluate for ascites. COMPARISON: Ultrasound from 12/09/2020. FINDINGS: No ascites is visualized. Signed: Damon Cormier Verified Date/Time: 01/13/2021 17:38:54 Reading Location: [facility] C013Y [place] Body Reading Room GLOBIN AND [id number] 14:37:00 Test Item Value Reference Range Interpretation Comments HEMOGLOBIN (BEAKER) (test code = 7.9 GM/DL 11.2-15.7 L 410) HEMATOCRIT (BEAKER) (test code = 26.0 % 34.1-44.9 L 411) Anthropology Department Chair ID - [id number]-GLUCOSE [id number] 12:56:00 Test Item Value Reference Range Interpretation Comments POC-GLUCOSE METER 175 mg/dL 70-110 H : TESTED A T [facility] 6720 (BEAKER) (test code = MICHEL Royal [facility], 1538) [address]: Anthropology Department Chair/Techni sanjeev ID = [id number] for ONELIA REGALADO POCT-GLUCOSE [id number] 11:47:00 Test Item Value Reference Range Interpretation Comments POC-GLUCOSE METER 176 mg/dL 70-110 H : TESTED A T [facility] 6720 (BEAKER) (test code EDWAR [facility], = 1538) [address]: Anthropology Department Chair/Techni sanjeev ID = [id number] for Dianelys xiong (pca2), Arlette [id number] 07:14:00 Test Item Value Reference Range Interpretation Comments LIPASE (BEAKER) (test code = 749) 155 U/L 8-78 H Anthropology Department Chair ID - BSBASIC METABOLIC [id number] 06:38:00 Test Item Value Reference Range Interpretation [...] S NOT APPLICABLE FOR DIALYSIS PATIEN TS. Anthropology Department Chair ID - MAGDIEL EPATIC FUNCTION [id number] 06:15:00 Test Item Value Reference Range Interpretation [...] (test code = 21 U/L 6-55 347) Anthropology Department Chair ID - MAGDIEL MPROTHROMBIN TIME/[id number] 05:42:00 Test Item Value Reference Range Interpretation Comments PROTIME (BEAKER) 15.2 seconds 11.9-14.2 H (test code = 759) INR (BEAKER) (test 1.22 See_Comment [Automat ed message] code = 370) The system [employer] generated this result transmitted ref erence range: <=5.90. The reference range was not used to int erpret this result as normal/abnormal . RECOMMENDED COUMADIN/WARFARIN INR THERAPY RANGESSTANDARD DOSE: 2.0 - 3.0 Includes: PROPHYLAXIS for venous thrombosis, systemic embolization; TREATMENT for venous thrombosis and/or pulmonary embolus.HIGH RISK: Target INR is 2.5-3.5 for patients with mechanical heart valves.CBC W/PLT COUNT & AUTO [id number] 05:37:00 Test Item Value Reference Range Interpretation [...] = No growth in 5 days 6463-4) [facility] [id number] 20:01:00 Test Item Value Reference Range Interpretation Comments CULTURE (BEAKER) (test No growth in 5 days code = 1095) BLOOD [id number] 20:01:00 Test Item Value Reference Range Interpretation Comments CULTURE (BEAKER) (test No growth in 5 days code = 1095) Drug screen, urine, nvhecdkpjo2494-58-15 14:34:00See scanned reportCHI In[facility] Medical CenterPrepare Leuko-Red [id number] 23:54:00 Test Item Value Reference Range Interpretation Comments Unit ABO (test code = 4042279) A Pos UNIT NUMBER (test code = [id number] 934-0) Status (test code = 6702327) TX_TIMEINCHART Blood Bank Product (test code PLATELETS = 2263) PRODUCT CODE (test code = I4127F34 933-2) [facility] Center[facility] Leuko-Red [id number] 14:17:00 Test Item Value Reference Range Interpretation Comments CROSSMATCH (test code = COMPATIBLE 2264) Unit ABO (test code = A Pos 3799578) UNIT NUMBER (test code = [id number] 934-0) Status (test code = 8583676) WORK IN PROGRESS Blood Bank Product (test RED BLOOD CELLS code = 2263) PRODUCT CODE (test code = M1078B57 933-2) [facility] CenterComprehenve metabolic [id number] 06:58:00 Test Item Value Reference Range Interpretation Comments Protein, Total (test 6.1 See_Comment [Autom ated code = 2885-2) message] The system which generated this result transmit gaby reference range : 6.0 - 8.3 gm/dL . The reference range was not u sed to interpret th is result as normal/abnormal . Albumin (test code = 3.0 g/dL 3.5-5 L 17494-4) Alkaline Phosphatase 94 U/L 40-150 (test code = 6768-6) Total Bilirubin (test 0.5 mg/dL 0.2-1.2 code = 1974-2) Sodium (test code = 140 meq/L 191-662 7213-2) Potassium (test code 4.2 meq/L 3.5-5.1 = 2823-3) Chloride (test code = 107 meq/L 98-107 2075-0) CO2 (test code = 24 meq/L 22-29 2028-9) BUN (test code = 4 mg/dL 7-21 L 3094-0) Creatinine (test code 0.97 mg/dL 0.57-1.25 = 2160-0) Glucose (test code = 175 mg/dL 70-105 H 2345-7) Calcium (test code = 8.0 mg/dL 8.4-10.2 L 66718-6) AST (test code = 19 U/L 5-34 1920-8) ALT (test code = 16 U/L 6-55 1742-6) EGFR (test code = 60 mL/min/1.73 [place] [address]-8) NOT ACCURATE CREATININE CLEARANCE IN PREDICTING GLOMERULAR FILTRATION RATE . ESTIMATED GFR I S NOT APPLICABLE FOR DIALYSIS PATIEN TS. JULIAN (test code = JULIAN) Anthropology Department Chair ID - MARCUS W Lab Interpretation Abnormal (test code = 34860-8) [facility] CenterCOMPREHENSIVE METABOLIC [id number] 06:58:00 Test Item Value Reference Range Interpretation [...] S NOT APPLICABLE FOR DIALYSIS PATIEN TS. Anthropology Department Chair ID - MARCUS WProthrombin time/[id number] 06:30:00 Test Item Value Reference Interpretation Comments Range Protime (test code = 16.1 See_Comment H [Autom ated 8262-2) message] The system which generated this result transmitted reference range : 11.9 - 14.2 seconds. The reference range was not used to interpret this result as normal/abnormal . INR (test code = 1.31 See_Comment [Automated 7071-6) message] The system which generated this result [...] valves. Lab Interpretation Abnormal (test code = 65546-4) [facility] CenterPROTHROMBIN TIME/[id number] 06:30:00 Test Item Value Reference Range Interpretation Comments PROTIME (BEAKER) 16.1 seconds 11.9-14.2 H (test code = 759) INR (BEAKER) (test 1.31 See_Comment [Automat ed message] code = 370) The system [employer] generated this result transmitted ref erence range: <=5.90. The reference range was not used to int erpret this result as normal/abnormal . RECOMMENDED COUMADIN/WARFARIN INR THERAPY RANGESSTANDARD DOSE: 2.0 - 3.0 Includes: PROPHYLAXIS for venous thrombosis, systemic embolization; TREATMENT for venous thrombosis and/or pulmonary embolus.HIGH RISK: Target INR is 2.5-3.5 for patients with mechanical heart valves.CBC with platelet count + automated [id number] 06:19:00 Test Item Value Reference Range Interpretation Comments WBC (test code = 6690-2) 3.0 See_Comment L [A utomated message] The system [employer] generated this result transmitted ref erence range: 3.5 - 10 .5 K/µL. The refe rence range was not u sed to interpret this result as normal/abnor mal. RBC (test code = 789-8) 2.52 See_Comment L [Au tomated message] The system [employer] generated this result transmitted ref erence range: 3.93 - 5 .22 M/µL. The refe rence range was not u sed to interpret this result as normal/abnor mal. MCHC (test code = 786-4) 31.0 See_Comment L [A utomated message] The system [employer] generated this result transmitted ref erence range: [...] L [Aut omated message] 777-3) The system [employer] generated this result transmitted ref erence range: 150 - 45 0 K/CU MM. The referen ce range was not u sed to interpret this result as normal/abnor mal. MPV (test code = 11.3 fL 9.4-12.3 67231-4) nRBC (test code = 413) 0 See_Comment [Aut omated message] The system [employer] generated this result transmitted ref erence range: [...] See_Comment [Aut omated message] 670) The system [employer] generated this result transmitted ref erence range: 1.56 - 6 .13 K/µL. The refe rence range was not u sed to interpret this result as normal/abnor mal. # Lymphs (test code = 0.62 See_Comment L [Auto mated message] 414) The system [employer] generated this result transmitted ref erence range: 1.18 - 3 .74 K/µL. The refe rence range was not u sed to interpret this result as normal/abnor mal. # Monos (test code = 0.35 See_Comment [Autom ated message] 415) The system [employer] generated this result transmitted ref erence range: 0.24 - 0 .36 K/µL. The refe rence range was not u sed to interpret this result as normal/abnor mal. # Eos (test code = 416) 0.11 See_Comment [Au tomated message] The system [employer] generated this result transmitted ref erence range: 0.04 - 0 .36 K/µL. The refe rence range was not u sed to interpret this result as normal/abnor mal. # Baso (test code = 417) 0.01 See_Comment [A utomated message] The system [employer] generated this result transmitted ref erence range: 0.01 - 0 .08 K/µL. The refe rence range was not u sed to interpret this result as normal/abnor mal. Immature 0 % 0-1 Granulocytes-Relative (test code = 2801) Lab Interpretation (test Abnormal code = 03442-7) [facility] W/PLT COUNT & AUTO [id number] 06:19:00 Test Item Value Reference Range Interpretation [...] PERCENT (BEAKER) (test code = 2801) POC-Glucose [id number] 21:39:00 Test Item Value Reference Range Interpretation Comments POC-Glucose Meter (test 319 mg/dL 70-110 H : TE STED AT [facility] code = 1538) [address] [facility], 770 30: Anthropology Department Chair/Techni sanjeev ID = [id number] for OCTAVIA MAGAÑA Lab Interpretation (test Abnormal code = 08664-5) [facility] CenterPOCT-GLUCOSE [id number] 21:39:00 Test Item Value Reference Range Interpretation Comments POC-GLUCOSE METER 319 mg/dL 70-110 H [facility] (test code = [facility], 1538) [address]: Anthropology Department Chair/Techni sanjeev ID = [id number] for OCTAVIA HOPKINS RA POCT-GLUCOSE [id number] 16:32:00 Test Item Value Reference Range Interpretation Comments POC-GLUCOSE METER 145 mg/dL 70-110 H : [facility] (test code = [facility], 1538) [address]: Anthropology Department Chair/Techni sanjeev ID = [id number] for NILDA MCKINNEY (V), ROMINA Type and screen, [id number] 08:50:00 Test Item Value Reference Range Interpretation Comments ABO/RH AUTOMATED (BEAKER) (test A POSITIVE code = 2260) Ab Scrn (test code = 890-4) NEGATIVE [facility] CenterCOMPREHENSIVE METABOLIC [id number] 06:07:00 Test Item Value Reference Range Interpretation [...] S NOT APPLICABLE FOR DIALYSIS PATIEN TS. Anthropology Department Chair ID - MAGDIEL YGyqudsctq7623-39-42 05:52:00 Test Item Value Reference Range Interpretation Comments Magnesium (test code = 1.4 mg/dL 1.6-2.6 L 99389-4) JULIAN (test code = JULIAN) Anthropology Department Chair ID - MAGDIEL M Lab Interpretation (test Abnormal code = 79452-8) [facility] CenterMAGNESIUM2021-07-24 05:52:00 Test Item Value Reference Range Interpretation Comments MAGNESIUM (BEAKER) (test code = 1.4 mg/dL 1.6-2.6 L 627) Anthropology Department Chair YOSEF VELOZ MPROTHROMBIN TIME/[id number] 05:27:00 Test Item Value Reference Range Interpretation Comments PROTIME (BEAKER) 16.8 seconds 11.9-14.2 H (test code = 759) INR (BEAKER) (test 1.38 See_Comment [Automat ed message] code = 370) The system [employer] generated this result transmitted ref erence range: <=5.90. The reference range was not used to int erpret this result as normal/abnormal . RECOMMENDED COUMADIN/WARFARIN INR THERAPY RANGESSTANDARD DOSE: 2.0 - 3.0 Includes: PROPHYLAXIS for venous thrombosis, systemic embolization; TREATMENT for venous thrombosis and/or pulmonary embolus.HIGH RISK: Target INR is 2.5-3.5 for patients with mechanical heart valves.Hemoglobin and tikxzewygq6484-03-63 05:23:00 Test Item Value Reference Range Interpretation Comments Hemoglobin (test code = 7.0 See_Comment L [Au tomated message] 786-4) The system [employer] generated this result transmitted ref erence range: 11.2 - 1 5.7 GM/DL. The refe rence range was not u sed to interpret this result as normal/abnor mal. Hematocrit (test code = 23.8 % 34.1-44.9 L 4544-3) Lab Interpretation (test Abnormal code = 82462-7) [facility] CenterCB W/PLT COUNT & AUTO [id number] 05:23:00 Test Item Value Reference Range Interpretation [...] (BEAKER) (test code = 2801) HEMOGLOBIN AND [id number] 05:23:00 Test Item Value Reference Range Interpretation Comments HEMOGLOBIN (BEAKER) (test code = 7.0 GM/DL 11.2-15.7 L 410) HEMATOCRIT (BEAKER) (test code = 23.8 % 34.1-44.9 L 411) HEMOGLOBIN AND [id number] 18:32:00 Test Item Value Reference Range Interpretation Comments HEMOGLOBIN (BEAKER) (test code = 8.5 GM/DL 11.2-15.7 L 410) HEMATOCRIT (BEAKER) (test code = 28.2 % 34.1-44.9 L 411) Anthropology Department Chair ID - [id number]-CoV2/RT-PCR (Asymptomatic ONLY)2020-12-22 11:29:00 Test Item Value Reference Range Interpretation Comments SARS-COV2/RT-PCR Negative Not Detected, (test code = Negative, See 05025-9) external report for linked test SARS-COV-2 [facility] GIN PERFORMING LAB (test code = 20858-4) JULIAN (test code = Negative result for [...] of the Act. Fact Sheet for Healthcare Providers:https://www.Duriana.com/sites/default/f raeann/product/documents/F act_Sheet_HC_Providers_L yph_JGPM-AmI-2.pdf Fact Sheet for Healthcare Patients:https://www.WorkHound.com/sites/default/fi les/product/documents/Fa ct_Sheet_Patients_Ly_S ARS-CoV-2.pdf Performing Laboratory:[facility] [place] [address] [facility] ([facility])2020-12-22 11:29:00 Test Item Value Reference Range Interpretation Comments SARS-COV2/RT-PCR (test Negative Not Detected, Negative, code = 2845371) See external report for linked test SARS-COV-[address] [facility] GIN (test code = 6260571) Negative result for this test determines that [...] of the Act.Fact Sheet for Healthcare Prov iders:https://www.CaseRails/sites/default/files/product/documents/Fact_Sheet_HC _Zrgskwkbj_Rewk_BFPQ-BnS-5.pdfFact Sheet for Healthcare Patients:https://www.CaseRails/sites/default/files/product/docume nts/Ofiw_Scbob_Troplktx_Aufx_KLPT-AbC-5.pdfPerforming Laboratory:[facility], [place] [address]UMVS-GLAFJGR METER 2020-12-22 05:38:00 Test Item Value Reference Range Interpretation Comments POC-GLUCOSE METER 142 mg/dL 70-110 H : TESTED A T [facility] 6720 (BEAKER) (test code = EDVINPAUL [facility], 1538) [address]: Anthropology Department Chair/Techni sanjeev ID = [id number] for Fede dougKaylynn chong Basic metabolic [id number] 04:34:00 Test Item Value Reference Range Interpretation Comments Sodium (test code = 137 meq/L 861-939 3378-2) Potassium (test code = 5.1 meq/L 3.5-5.1 2823-3) Chloride (test code = 111 meq/L 98-107 H 2075-0) CO2 (test code = 19 meq/L 22-29 L 2028-9) BUN (test code = 6 mg/dL 7-21 L 3094-0) Creatinine (test code 1.06 mg/dL 0.57-1.25 = 2160-0) Glucose (test code = 138 mg/dL 70-105 H 2345-7) Calcium (test code = 8.3 mg/dL 8.4-10.2 L 15552-8) EGFR (test code = 54 mL/min/1.73 [place] [address]-1) NOT ACCURATE CREATININE CLEARANCE IN PREDICTING GLOMERULAR FILTRATION RATE . ESTIMATED GFR I S NOT APPLICABLE FOR DIALYSIS PATIENTS. JULIAN (test code = JULIAN) Anthropology Department Chair ID - MARCUS Niño Lab Interpretation Abnormal (test code = 68139-7) [facility] CenterHepatic function [id number] 04:34:00 Test Item Value Reference Range Interpretation Comments Protein, Total (test 6.2 See_Comment [Autom ated code = 7885-2) message] The system which generated this result transmit gaby reference range : 6.0 - 8.3 gm/dL . The reference range was not u sed to interpret th is result as normal/abnormal . Albumin (test code = 3.0 g/dL 3.5-5 L 83782-0) Total Bilirubin (test 0.7 mg/dL 0.2-1.2 code = 1975-2) Bilirubin, Direct 0.4 mg/dL 0.1-0.5 (test code = 1967-7) Alkaline Phosphatase 105 U/L 40-150 (test code = 6768-6) AST (test code = 34 U/L 5-34 1920-8) ALT (test code = 26 U/L 6-55 1742-6) JULIAN (test code = JULIAN) Anthropology Department Chair ID - MARCUS W Lab Interpretation Abnormal (test code = 60053-3) [facility] CenterPhosphorus2021-07-23 04:34:00 Test Item Value Reference Range Interpretation Comments Phosphorus (test code = 3.3 mg/dL 2.3-4.7 2777-1) JULIAN (test code = JULIAN) Anthropology Department Chair ID - MARCUS W Lab Interpretation (test Normal code = 52348-5) [facility] CenterBASIC METABOLIC [id number] 04:34:00 Test Item Value Reference Range Interpretation [...] S NOT APPLICABLE FOR DIALYSIS PATIEN TS. Anthropology Department Chair ID - MARCUS FIHTDSZQMU0289-22-68 04:34:00 Test Item Value Reference Range Interpretation Comments MAGNESIUM (BEAKER) (test code = 1.3 mg/dL 1.6-2.6 L 627) Anthropology Department Chair ID - MARCUS [id number] 04:34:00 Test Item Value Reference Range Interpretation Comments PHOSPHORUS (BEAKER) (test code = 3.3 mg/dL 2.3-4.7 604) Anthropology Department Chair ID - MARCUS WHEPATIC FUNCTION [id number] 04:34:00 Test Item Value Reference Range Interpretation [...] (test code = 26 U/L 6-55 347) Anthropology Department Chair ID Joaquin VELAZQUEZ WCBC W/PLT COUNT & AUTO [id number] 04:18:00 Test Item Value Reference Range Interpretation [...] PERCENT (BEAKER) (test code = 2801) POCT-GLUCOSE [id number] 01:24:00 Test Item Value Reference Range Interpretation Comments POC-GLUCOSE METER 121 mg/dL 70-110 H : [facility] ([facility] (test code = MICHEL ENGEL MD, 1538) [address]: Anthropology Department Chair/Techni sanjeev ID = [id number] for Kaylynn Dill [id number] 19:21:00 Test Item Value Reference Range Interpretation Comments PTT (test code = 41081-9) 29.1 See_Comment [ Automated message] The system [employer] generated this result transmitted ref erence range: 22.5 - 3 6.0 seconds. The re ference range was not u sed to interpret this result as normal/abnor mal. Lab Interpretation (test Normal code = 34869-6) [facility] CenterAPTT2021-07-22 19:21:00 Test Item Value Reference Range Interpretation Comments PARTIAL THROMBOPLASTIN TIME 29.1 seconds 22.5-36.0 (BEAKER) (test code = 760) Lactic acid, venous [id number] 19:20:00 Test Item Value Reference Range Interpretation Comments Lactate, Venous (test 1.18 mmol/L 0.5-2.2 Specim en code = 2872) markedly hemolyzed JULIAN (test code = JULIAN) Anthropology Department Chair ID - DB Lab Interpretation Normal (test code = 51820-3) [facility] CenterLACTIC ACID, [id number] 19:20:00 Test Item Value Reference Range Interpretation Comments LACTATE BLOOD VENOUS 1.18 mmol/L 0.50-2.20 Specime n markedly (2) (BEAKER) (test hemolyzed code = 2872) Anthropology Department Chair ID - DBPROTHROMBIN TIME/[id number] 19:19:00 Test Item Value Reference Range Interpretation Comments PROTIME (BEAKER) 15.4 seconds 11.9-14.2 H (test code = 759) INR (BEAKER) (test 1.24 See_Comment [Automat ed message] code = 370) The system [employer] generated this result transmitted ref erence range: <=5.90. The reference range was not used to int erpret this result as normal/abnormal . RECOMMENDED COUMADIN/WARFARIN INR THERAPY RANGESSTANDARD DOSE: 2.0 - 3.0 Includes: PROPHYLAXIS for venous thrombosis, systemic embolization; TREATMENT for venous thrombosis and/or pulmonary embolus.HIGH RISK: Target INR is 2.5-3.5 for patients with mechanical heart valves.[id number] 19:16:00 Test Item Value Reference Range Interpretation Comments Ammonia (test code = 21 See_Comment Specime n 32364-1) moderately hemolyzed [Automated message] The system which generated this result transmit gaby reference range : 18 - 72 µmol/L . The reference range was not u sed to interpret th is result as normal/abnormal . JULIAN (test code = JULIAN) Anthropology Department Chair ID - DB Lab Interpretation Normal (test code = 60361-7) [facility] CenterAMMONIA2021-07-22 19:16:00 Test Item Value Reference Range Interpretation Comments AMMONIA (BEAKER) 21 mol/L 18-72 Specimen mo derately (test code = 348) hemolyzed Anthropology Department Chair ID - DBBASIC METABOLIC [id number] 16:19:00 Test Item Value Reference Range Interpretation [...] S NOT APPLICABLE FOR DIALYSIS PATIEN TS. Anthropology Department Chair ID - DBHEPATIC FUNCTION [id number] 16:19:00 Test Item Value Reference Range Interpretation [...] (test code = 36 U/L 6-55 347) Anthropology Department Chair ID - DBCBC W/PLT COUNT & AUTO [id number] 16:00:00 Test Item Value Reference Range Interpretation [...] (BEAKER) (test code = 2801) BASIC METABOLIC [id number] 14:31:00 Test Item Value Reference Range Interpretation [...] S NOT APPLICABLE FOR DIALYSIS PATIEN TS. Anthropology Department Chair ID - DENA LHEPATIC FUNCTION [id number] 14:31:00 Test Item Value Reference Range Interpretation [...] (test code = 31 U/L 6-55 347) Anthropology Department Chair ID Joaquin FERNANDES LPROTHROMBIN TIME/[id number] 14:12:00 Test Item Value Reference Range Interpretation Comments PROTIME (BEAKER) 15.2 seconds 11.9-14.2 H (test code = 759) INR (BEAKER) (test 1.22 See_Comment [Automat ed message] code = 370) The system [employer] generated this result transmitted ref erence range: <=5.90. The reference range was not used to int erpret this result as normal/abnormal . RECOMMENDED COUMADIN/WARFARIN INR THERAPY RANGESSTANDARD DOSE: 2.0 - 3.0 Includes: PROPHYLAXIS for venous thrombosis, systemic embolization; TREATMENT for venous thrombosis and/or pulmonary embolus.HIGH RISK: Target INR is 2.5-3.5 for patients with mechanical heart valves.CBC W/PLT COUNT & AUTO [id number] 14:08:00 Test Item Value Reference Range Interpretation [...] (BEAKER) (test code = 2801) please check xvslpxliupjloszudg6484-34-43 12:14:00Scan ResultQUEST NON- INTERFACED LABCHI [facility] Medical CenterZinc2021-07-17 19:10:00 Test Item Value Reference Interpretation Comments Range Zinc (test code = 47 See_Comment L This test was 1625818) developed and i ts analytical performance characteristics have been determined by [employer]. It has not been cleared or appr [...] (test code = Performing Lab JULIAN) *MIKE [facility], [address] [place] [phone] Sheri Mccall MD Lab Interpretation Abnormal (test code = 01675-2) [facility] CenterCopper2021-07-17 11:43:00 Test Item Value Reference Range Interpretation Comments Copper (test 118 See_Comment This test was code = developed and i ts 6784490) analytical perf ormance characteristics have been determined by [employer]. It has not been cl eared or approved by theFDA. This assay has been validated pursu ant to the CLIA regula tions and is used for clinical purpos es. [Automated mess age] The system whic [employer] generated this result transmitted ref erence range: 70 - 175 mcg/dL. The ref erence range was not u sed to interpret this result as normal/abnor mal. JULIAN (test code Performing Lab = JULIAN) *MIKE [facility], [address] [place] [phone] Sheri Mccall MD [facility] CenterANTI-MITOCHONDRIAL AB, REFLEX TO [id number] 07:43:00 Test Item Value Reference Range Interpretation Comments SCAN RESULT (test code = 4480013) Anti-Mitochondrial Ab, reflex to [id number] 07:43:00Scan ResultQUEST DIAGNOSTIC INCORPORATEDSaddleback Memorial Medical CenterHepatitis B e antibody 2020-12-14 20:25:00 Test Item Value Reference Range Interpretation Comments Hep Be NONREACTIVE REFERENCE RANG E: Ab(Anti-Hbe) NONREACTIVE For (test code = additional 8842590) information, pl ease refer tohttp://educat ion.[employer] .JumpSoft/ faq/CGE303(This link is being provid ed for informational/e ducat ional purposes only.) JULIAN (test code Performing Lab *QDID = JULIAN) [facility] [address] [place] [id number] Chalo Burnham MD [facility] CenterBLOOD [id number] 20:01:00 Test Item Value Reference Range Interpretation Comments CULTURE (BEAKER) (test No growth in 5 days code = 1095) BLOOD [id number] 20:01:00 Test Item Value Reference Range Interpretation Comments CULTURE (BEAKER) (test No growth in 5 days code = 1095) Mitochondrial Ab [id number] 12:49:00 Test Item Value Reference Range Interpretation Comments Anti-Mitocho NEGATIVE NEGATIVE This test was developed nd Abs (test and its analyti iglesia code = performance 1459666) characteristics havebeen determined by [facility].It h as not been cleared or approved by FDA. This as say has been validatedp ursuant to the CLIA reg ulations and is used for clinical purposes. JULIAN (test Performing Lab EZ code = JULIAN) [email or web address] Application [address] [place] [address] Chip Mckeon MD, PhD, DEBIGlendora Community HospitalMitochondrial Ab [id number] 12:49:00 Test Item Value Reference Range Interpretation Comments Mitochondrial Ab TNP See_Comment Test Not Titer (test code = Performed . 4628366) Screening test Negative or Not Detected. Titer notperformed. [Automated message] The system which generated this result transmitted reference range : <1:20. The reference range was not used to interpret this result as normal/abnormal . JULIAN (test code = Performing Lab EZ JULIAN) [facility] [address] [place] [address] Chip Mckeon MD, PhD, [facility] Encin[facility] HospitalActin (Smooth Muscle) Antibody, [id number] 22:22:00 Test Item Value Reference Range Interpretation [...] (test code Performing Lab EZ = JULIAN) [email or web address] Application [address] [place] [address] Chip Mckeon MD, PhD, DEBIGlendora Community HospitalPOCT-GLUCOSE [id number] 16:42:00 Test Item Value Reference Range Interpretation Comments POC-GLUCOSE METER 195 mg/dL 70-110 H : TESTED A T [facility] 6720 (BEAKER) (test code [facility], = 1538) [address]: Anthropology Department Chair/Techni sanjeev ID = [id number] for JAK SBENEDICTORIA Hepatitis B e [id number] 16:32:00 Test Item Value Reference Range Interpretation Comments Hep Be Ag NONREACTIVE REFERENCE RANG ES: (Antigen) NONREACTIVE For (test code = additional 2400981) information, pl ease refer tohttp://educat ion.[employer]/ faq/OWZ639(This link is being provid ed for informational/e ducat ional purposes only.) JULIAN (test code Performing Lab *QDID = JULIAN) [facility] [address] [place] [address] H Dinesh Burnham MD [facility] CenterCarbohydrate antigen 19-9 (CA 19-9)2020-12-13 14:29:00 Test Item Value Reference Range Interpretation Comments CA 19-9 26 U/mL <34 This test was (test code = performed using the 93321-9) Siemens Chemiluminescen t method.Values o btained from different assay methods cannot be used interchangeably .CA19-9 levels, regardl ess of value, should n ot be interpreted as absoluteevidenc e of the presence or abs ence of disease. JULIAN (test Performing Lab EZ code = JULIAN) [facility] [address] [place] [address] Chip Mckeon MD, PhD, DEBI [facility] CenterSvsdiuOrquskhdalpxj6874-60-23 14:13:00 Test Item Value Reference Range Interpretation Comments Ceruloplasmin (test code 28 mg/dL 18-53 = 3363593) JULIAN (test code = JULIAN) Performing Lab *[facility] [employer] [facility], [address] [place] [phone] Sheri Mccall MD [facility] CenterPOCT-GLUCOSE [id number] 11:53:00 Test Item Value Reference Range Interpretation Comments POC-GLUCOSE METER 308 mg/dL 70-110 H : TESTED A T [facility] 6720 (BEAKER) (test code [facility], = 1538) [address]: Anthropology Department Chair/Techni sanjeev ID = [id number] for HEATHER DUNLAP POCT-GLUCOSE [id number] 07:27:00 Test Item Value Reference Range Interpretation Comments POC-GLUCOSE METER 271 mg/dL 70-110 H : TESTED A T [facility] 6720 (BEAKER) (test code [facility], = 1538) 10651: Anthropology Department Chair/Techni sanjeev ID = [id number] for HEATHER DUNLAP Calcium, [id number] 05:41:00 Test Item Value Reference Range Interpretation Comments Calcium, Ion (test code = 1993-) 1.09 mmol/L 1.12-1.27 L pH, Blood (test code = 35805-4) 7.40 Lab Interpretation (test code = Abnormal 50179-2) [facility] CenterCALCIUM, [id number] 05:41:00 Test Item Value Reference Range Interpretation Comments CALCIUM IONIZED (BEAKER) (test 1.09 mmol/L 1.12-1.27 L code = 698) PH, BLOOD (BEAKER) (test code = 7.40 1810) COMPREHENSIVE METABOLIC [id number] 04:31:00 Test Item Value Reference Range Interpretation [...] S NOT APPLICABLE FOR DIALYSIS PATIEN TS. Anthropology Department Chair ID - MAGDIEL [id number] 04:25:00 Test Item Value Reference Range Interpretation Comments MAGNESIUM (BEAKER) (test code = 1.5 mg/dL 1.6-2.6 L 627) Anthropology Department Chair ID - MAGDIEL [id number] 04:25:00 Test Item Value Reference Range Interpretation Comments PHOSPHORUS (BEAKER) (test code = 2.4 mg/dL 2.3-4.7 604) Anthropology Department Chair ID - MAGDIEL MCBC W/PLT COUNT & AUTO [id number] 03:59:00 Test Item Value Reference Range Interpretation [...] PERCENT (BEAKER) (test code = 2801) POCT-GLUCOSE [id number] 22:27:00 Test Item Value Reference Range Interpretation Comments POC-GLUCOSE METER 329 mg/dL 70-110 H : TESTED A T [facility] 67 ([facility]) (test code = [facility], 153) 15[address]: Anthropology Department Chair/Techni sanjeev ID = [id number] for JAMILA YOUNGER POCT-GLUCOSE [id number] 17:02:00 Test Item Value Reference Range Interpretation Comments POC-GLUCOSE METER 295 mg/dL 70-110 H : Notified RN/MD: ([facility]) (test code = TESTED AT [place] [id number] 1538) [facility], [address]: Anthropology Department Chair/Techni sanjeev ID = [id number] for Ricco BNUDY EUGENIOJANE HEMOGLOBIN AND [id number] 16:35:00 Test Item Value Reference Range Interpretation Comments HEMOGLOBIN (BEAKER) (test code = 7.9 GM/DL 11.2-15.7 L 410) HEMATOCRIT (BEAKER) (test code = 25.0 % 34.1-44.9 L 411) Anthropology Department Chair ID - [id number]-GLUCOSE [id number] 11:51:00 Test Item Value Reference Range Interpretation Comments POC-GLUCOSE METER 300 mg/dL 70-110 H : TESTED A T [facility] 6720 (BEAKER) (test code [facility], = 1538) 05070: Anthropology Department Chair/Techni sanjeev ID = [id number] for HEATHER DUNLAP POCT-GLUCOSE [id number] 08:17:00 Test Item Value Reference Range Interpretation Comments POC-GLUCOSE METER 229 mg/dL 70-110 H : TESTED A T [facility] 6720 (BEAKER) (test code [facility], = 1538) 97094: Anthropology Department Chair/Techni sanjeev ID = [id number] for HEATHER DUNLAP [id number] 06:36:00 Test Item Value Reference Range Interpretation Comments PHOSPHORUS (BEAKER) (test code = 1.5 mg/dL 2.3-4.7 LL 604) Anthropology Department Chair ID - MAGDIEL MOperator ID - DENA LCOMPREHENSIVE METABOLIC [id number] 04:26:00 Test Item Value Reference Range Interpretation [...] S NOT APPLICABLE FOR DIALYSIS PATIEN TS. Anthropology Department Chair ID - MAGDIEL [id number] 04:26:00 Test Item Value Reference Range Interpretation Comments MAGNESIUM (BEAKER) (test code = 1.7 mg/dL 1.6-2.6 627) Anthropology Department Chair ID - MAGDIEL MCALCIUM, [id number] 04:18:00 Test Item Value Reference Range Interpretation Comments CALCIUM IONIZED (BEAKER) (test 1.10 mmol/L 1.12-1.27 L code = 698) PH, BLOOD (BEAKER) (test code = 7.41 1810) CBC W/PLT COUNT & AUTO [id number] 03:57:00 Test Item Value Reference Range Interpretation [...] PERCENT (BEAKER) (test code = 2801) POCT-GLUCOSE [id number] 21:58:00 Test Item Value Reference Range Interpretation Comments POC-GLUCOSE METER 139 mg/dL 70-110 H : TESTED A T [facility] 6720 (BEAKER) (test code = MICHEL Royal [facility], 1538) 19210: Anthropology Department Chair/Techni sanjeev ID = [id number] for ERIC FREGOSO Hepatitis B surface [id number] 18:57:00 Test Item Value Reference Range Interpretation Comments Hep B S Ab (test code <8.0 See_Comment [Auto mated = 88459-7) message] The system which generated this result transmit gaby reference range : <8.0 mIU/mL. e reference range was not used to interpret this result as normal/abnormal . JULIAN (test code = JULIAN) Anthropology Department Chair ID - DB Lab Interpretation Normal (test code = 09945-6) [facility] CenterHEPATITIS B SURFACE [id number] 18:57:00 Test Item Value Reference Range Interpretation Comments HEPATITIS B SURFACE ANTIBODY < mIU/mL <8.0 (BEAKER) (test code = 647) Anthropology Department Chair ID - DBHEMOGLOBIN AND [id number] 18:30:00 Test Item Value Reference Range Interpretation Comments HEMOGLOBIN (MITA) (test code = 7.6 GM/DL 11.2-15.7 L 410) HEMATOCRIT (MITA) (test code = 24.3 % 34.1-44.9 L 411) Anthropology Department Chair ID - [id number] ID - [id number]-GLUCOSE [id number] 18:02:00 Test Item Value Reference Range Interpretation Comments POC-GLUCOSE METER 331 mg/dL 70-110 H : TESTED A T [facility] 6720 (MITA) (test code [facility], = 1538) 33003: Anthropology Department Chair/Techni sanjeev ID = [id number] for HEATHER DUNLAP Hepatitis C PCR, [id number] 15:48:00 Test Item Value Reference Range Interpretation Comments HCV PCR, Quantitative HCV RNA not detected HCV RNA not (test code = 53095-8) detected JULIAN (test code = JULIAN) This test uses a Real-Time Polymerase Chain Reaction (RT-PCR) methodology and was performed using KEZIA® Ampliprep/KEZIA® TaqMan® HCV test kit version 2.0 ([employer]). Reportable range for this assay is 15 - 100,000,000 IU per mL (1.18 - 8.00 Log IU/mL).This test uses a Real-Time Polymerase Chain Reaction (RT-PCR) methodology and was performed using KEZIA® Ampliprep/KEZIA® TaqMan® HCV test kit version 2.0 ([employer]). Reportable range for this assay is 15 - 100,000,000 IU per mL (1.18 - 8.00 Log IU/mL). Lab Interpretation Normal (test code = 31815-0) [facility] CenterHEPATITIS C PCR, [id number] 15:48:00 Test Item Value Reference Range Interpretation Comments HCV RESULT COMPONENT HCV RNA not detected HCV RNA not detected (MITA) (test code = 2699) This test uses a Real-Time Polymerase Chain Reaction (RT-PCR) methodology and was performed using KEZIA Ampliprep/KEZIA TaqMan HCV test kit version 2.0 ([employer]).Reportable range for this assay is 15 - 100,000,000 IU per mL (1.18 - 8.00 Log IU/mL).This test uses a Real-Time Polymerase Chain Reaction (RT-PCR) methodology and was performed using KEZIA Ampliprep/KEZIA TaqMan HCV test kit version 2.0 ([employer]).Reportable range for this assay is 15 - 100,000,000 IU per mL (1.18 - 8.00 Log IU/mL).Hepatitis B PCR, [id number] 13:54:00 Test Item Value Reference Range Interpretation Comments HBV PCR, Quantitative HBV DNA not detected HBV DNA not (test code = 09114-9) detected JULIAN (test code = JULIAN) This test uses a Real-Time Polymerase Chain Reaction (RT-PCR) methodology and was performed using KEZIA® AmpliPrep/KEZIA® TaqMan® HBV Test, v2.0 ([employer] Reportable range for this assay is 20 - 170,000,000 IU per mL (1.30 - 8.23 Log IU/mL). Lab Interpretation Normal (test code = 35961-7) [facility] CenterHEPATITIS B PCR, [id number] 13:54:00 Test Item Value Reference Range Interpretation Comments HBV RESULT COMPONENT HBV DNA not detected HBV DNA not detected (BEAKER) (test code = 2701) This test uses a Real-Time Polymerase Chain Reaction (RT-PCR) methodology and was performed using [employer] AmpliPrep/KEZIA TaqMan HBV Test, v2.0 ([employer]Reportable range for this assay is 20 - 170,000,000 IU per mL (1.30 - 8.23 Log IU/mL).POCT-GLUCOSE [id number] 12:15:00 Test Item Value Reference Range Interpretation Comments POC-GLUCOSE METER 195 mg/dL 70-110 H : TESTED A T [facility] 6720 (BEAKER) (test code [facility], = 1538) 09065: Anthropology Department Chair/Techni sanjeev ID = [id number] for HEATHER DUNLAP Anti-Nuclear Antibody (AARON)2020-12-11 10:19:00 Test Item Value Reference Range Interpretation Comments AARON (test code = 52852-7) Negative Negative JULIAN (test code = JULIAN) Test performed by IFA method.Test performed by IFA method. Lab Interpretation (test Normal code = 56834-6) [facility] CenterANTI-NUCLEAR ANTIBODY (AARON)2020-12-11 10:19:00 Test Item Value Reference Range Interpretation Comments ANTI-NUCLEAR ANTIBODY (AARON) (BEAKER) Negative Negative (test code = 418) Test performed by IFA method.Test performed by IFA method.Urine culture 2020-12-11 08:28:00 Test Item Value Reference Range Interpretation Comments Result (test code = 6463-4) No growth [facility] [id number] 08:12:00 Test Item Value Reference Range Interpretation Comments POC-GLUCOSE METER 262 mg/dL 70-110 H : TESTED A T [facility] 6720 (BEAKER) (test code [facility], = 1538) 72104: Anthropology Department Chair/Techni sanjeev ID = [id number] for HEATHER DUNLAP CALCIUM, [id number] 06:45:00 Test Item Value Reference Range Interpretation Comments CALCIUM IONIZED (BEAKER) (test 1.10 mmol/L 1.12-1.27 L code = 698) PH, BLOOD (BEAKER) (test code = 7.35 1810) COMPREHENSIVE METABOLIC [id number] 06:28:00 Test Item Value Reference Range Interpretation [...] S NOT APPLICABLE FOR DIALYSIS PATIEN TS. Anthropology Department Chair ID - MARCUS [id number] 06:28:00 Test Item Value Reference Range Interpretation Comments MAGNESIUM (BEAKER) (test code = 1.5 mg/dL 1.6-2.6 L 627) Anthropology Department Chair ID Joaquin VELAZQUEZ [id number] 06:28:00 Test Item Value Reference Range Interpretation Comments PHOSPHORUS (BEAKER) (test code = 2.6 mg/dL 2.3-4.7 604) Anthropology Department Chair ID Joaquin VELAZQUEZ WCBC W/PLT COUNT & AUTO [id number] 05:30:00 Test Item Value Reference Range Interpretation [...] (BEAKER) (test code = 2801) HEMOGLOBIN AND [id number] 23:46:00 Test Item Value Reference Range Interpretation Comments HEMOGLOBIN (BEAKER) (test code = 7.9 GM/DL 11.2-15.7 L 410) HEMATOCRIT (BEAKER) (test code = 24.4 % 34.1-44.9 L 411) Anthropology Department Chair ID - [id number]-GLUCOSE [id number] 21:51:00 Test Item Value Reference Range Interpretation Comments POC-GLUCOSE METER 330 mg/dL 70-110 H : TESTED A T [facility] 6720 (BEAKER) (test code = [facility], 153) 53779: Anthropology Department Chair/Techni sanjeev ID = [id number] for ERIC FREGOSO POCT-GLUCOSE [id number] 16:37:00 Test Item Value Reference Range Interpretation Comments POC-GLUCOSE METER 215 mg/dL 70-110 H : TESTED A T [facility] 6720 (BEAKER) (test code = [facility], 1538) 24435: Anthropology Department Chair/Techni sanjeev ID = [id number] for Yolie Feliciano CBC W/PLT COUNT & AUTO [id number] 13:45:00 Test Item Value Reference Range Interpretation [...] PERCENT (BEAKER) (test code = 2801) POCT-GLUCOSE [id number] 12:00:00 Test Item Value Reference Range Interpretation Comments POC-GLUCOSE METER 293 mg/dL 70-110 H : TESTED A T [facility] 6720 (BEAKER) (test code = [facility], 1538) 00268: Anthropology Department Chair/Techni sanjeev ID = [id number] for CLAUDIO FU Hemoglobin [id number] 07:57:00 Test Item Value Reference Range Interpretation Comments Hemoglobin A1C (test code = 4548-4) 7.7 % 4.3-6.1 H Lab Interpretation (test code = Abnormal 49034-3) [facility] CenterHEMOGLOBIN [id number] 07:57:00 Test Item Value Reference Range Interpretation Comments HEMOGLOBIN A1C (BEAKER) (test code = 7.7 % 4.3-6.1 H 368) POCT-GLUCOSE [id number] 07:28:00 Test Item Value Reference Range Interpretation Comments POC-GLUCOSE METER 253 mg/dL 70-110 H : TESTED A T [facility] 6720 (BEAKER) (test code = [facility], 153) 30464: Anthropology Department Chair/Techni sanjeev ID = [id number] for CLAUDIO FU COMPREHENSIVE METABOLIC [id number] 06:23:00 Test Item Value Reference Range Interpretation [...] S NOT APPLICABLE FOR DIALYSIS PATIEN TS. Anthropology Department Chair ID - MARCUS [id number] 06:12:00 Test Item Value Reference Range Interpretation Comments MAGNESIUM (BEAKER) 1.7 mg/dL 1.6-2.6 Specimen slightly (test code = 627) hemolyzed Anthropology Department Chair ID - MARCUS [id number] 06:12:00 Test Item Value Reference Range Interpretation Comments PHOSPHORUS (BEAKER) 2.8 mg/dL 2.3-4.7 Specimen slightly (test code = 604) hemolyzed Anthropology Department Chair ID - MARCUS WCBC W/PLT COUNT & AUTO [id number] 06:09:00 Test Item Value Reference Range Interpretation [...] 2801) Patient actively bleeding as per NODPROTHROMBIN TIME/[id number] 06:00:00 Test Item Value Reference Range Interpretation Comments PROTIME (BEAKER) 16.5 seconds 11.9-14.2 H (test code = 759) INR (MITA) (test 1.35 See_Comment [Automat ed message] code = 370) The system [employer] generated this result transmitted ref erence range: <=5.90. The reference range was not used to int erpret this result as normal/abnormal . RECOMMENDED COUMADIN/WARFARIN INR THERAPY RANGESSTANDARD DOSE: 2.0 - 3.0 Includes: PROPHYLAXIS for venous thrombosis, systemic embolization; TREATMENT for venous thrombosis and/or pulmonary embolus.HIGH RISK: Target INR is 2.5-3.5 for patients with mechanical heart valves.U/S, ABDOMINAL, WITH [id number] 05:50:00cirrhosis history with acute bleed. please check liver dopplers Reason for exam:->cirrhosis history with acute bleed. please check liver dopplers [facility] : 1965 Sex: FFINALREPORT [...] Verified Date/Time: 12/10/2020 05:50:47 US abdominal with [id number] 05:50:00Interface, External Ris In - 12/10/2020 5:53 [...] Steven Green MDReport Verified Date/Time: 12/10/2020 05:50:47 [facility] [id number] 05:36:00 Test Item Value Reference Range Interpretation Comments CALCIUM IONIZED (BEAKER) (test 0.96 mmol/L 1.12-1.27 L code = 698) PH, BLOOD (BEAKER) (test code = 7.39 1810) POCT-GLUCOSE [id number] 23:40:00 Test Item Value Reference Range Interpretation Comments POC-GLUCOSE METER 296 mg/dL 70-110 H : TESTED A T [facility] 6720 (BEAKER) (test code = MICHEL ENGEL MD, 1538) 06104: Anthropology Department Chair/Techni sanjeev ID = [id number] for MICK BROWN, [id number] 20:39:00 Test Item Value Reference Range Interpretation Comments ABO Grouping (test code = 2588) A Rh Factor (test code = 2589) POS [facility] CenterHEMOGLOBIN AND [id number] 19:15:00 Test Item Value Reference Range Interpretation Comments HEMOGLOBIN (BEAKER) (test code = 10.0 GM/DL 11.2-15.7 L 410) HEMATOCRIT (BEAKER) (test code = 31.1 % 34.1-44.9 L 411) Anthropology Department Chair ID - 6000HIV-1 Antigen with HIV-1/2 [id number] 19:10:00 Test Item Value Reference Range Interpretation Comments HIV-1 Antigen with HIV 1&2 Nonreactive Nonreactive Antibody (test code = 94284-5) JULIAN (test code = JULIAN) Anthropology Department Chair ID - EO Lab Interpretation (test Normal code = 16459-5) [facility] CenterHepatitis A antibody, [id number] 19:10:00 Test Item Value Reference Range Interpretation Comments Hep A IgG (test code = Nonreactive Nonreactive 66457-4) JULIAN (test code = JULIAN) Anthropology Department Chair ID - EO Lab Interpretation (test Normal code = 33038-5) [facility] CenterHIV-1 ANTIGEN WITH HIV-1/2 [id number] 19:10:00 Test Item Value Reference Range Interpretation Comments HIV-1 ANTIGEN WITH HIV 1\\T\\2 Nonreactive Nonreactive ANTIBODY (2) (BEAKER) (test code = 2586) Anthropology Department Chair ID - EOHEPATITIS A ANTIBODY, [id number] 19:10:00 Test Item Value Reference Range Interpretation Comments HEPATITIS A IGG ANTIBODY (BEAKER) Nonreactive Nonreactive (test code = 2797) Anthropology Department Chair ID - EOHepatitis panel, [id number] 18:50:00 Test Item Value Reference Range Interpretation Comments Hep A IgM (test code = Nonreactive Nonreactive 19138-4) Hep B C IgM (test code = Nonreactive Nonreactive 75929-8) Hepatitis C Ab (test code = Reactive Nonreactive A 83268-0) HBsAg Screen (test code = Nonreactive Nonreactive 5195-3) JULIAN (test code = JULIAN) Anthropology Department Chair ID - EO Lab Interpretation (test Abnormal code = 46891-1) [facility] CenterHEPATITIS PANEL, [id number] 18:50:00 Test Item Value Reference Range Interpretation Comments HEPATITIS A IGM ANTIBODY (BEAKER) Nonreactive Nonreactive (test code = 498) HEPATITIS B CORE IGM ANTIBODY Nonreactive Nonreactive (BEAKER) (test code = 645) HEPATITIS C ANTIBODY (BEAKER) Reactive Nonreactive A (test code = 367) HEPATITIS B SURFACE ANTIGEN (2) Nonreactive Nonreactive (BEAKER) (test code = 2585) Anthropology Department Chair ID - EOHepatitis B core antibody, [id number] 18:49:00 Test Item Value Reference Range Interpretation Comments Hep B Core Total Ab (test Reactive Nonreactive A code = 52045-2) JULIAN (test code = JULIAN) Anthropology Department Chair ID - EO Lab Interpretation (test Abnormal code = 08763-9) [facility] CenterHEPATITIS B CORE ANTIBODY, [id number] 18:49:00 Test Item Value Reference Range Interpretation Comments HEPATITIS B CORE TOTAL ANTIBODY Reactive Nonreactive A (BEAKER) (test code = 497) Anthropology Department Chair ID - EOCarcinoembryonic Antigen (CEA)2020-12-09 18:42:00 Test Item Value Reference Range Interpretation Comments CEA, SERUM (test code = 11.8 ng/mL 0-5 H 2038-) JULIAN (test code = JULIAN) Anthropology Department Chair ID - EO Lab Interpretation (test Abnormal code = 84420-7) [facility] CenterAlpha fetoprotein (AFP), tumor [id number] 18:42:00 Test Item Value Reference Range Interpretation Comments Alpha-Fetoprotein (test code 3.4 ng/mL <10.0 = 1834-1) JULIAN (test code = JULIAN) Anthropology Department Chair ID - EO Lab Interpretation (test Normal code = 67316-0) [facility] CenterCARCINOEMBRYONIC ANTIGEN (CEA)2020-12-09 18:42:00 Test Item Value Reference Range Interpretation Comments CARCINOEMBRYONIC ANTIGEN (BEAKER) 11.8 ng/mL 0.0-5.0 H (test code = 685) Anthropology Department Chair ID - EOALPHA FETOPROTEIN (AFP), TUMOR [id number] 18:42:00 Test Item Value Reference Range Interpretation Comments ALPHA-FETOPROTEIN (BEAKER) (test 3.4 ng/mL <10.0 code = 1094) Anthropology Department Chair ID - EOVitamin D, 23-[id number] 18:39:00 Test Item Value Reference Range Interpretation Comments Vitamin D 25-Hydroxy 9.7 ng/mL 6.6-49.9 (test code = 2764) JULIAN (test code = JULIAN) Effective 03/12/2017: Reference Range ChangeNew: 6.6-49.9 ng/mL Previous: 13.0-47.8 ng/mL Recommended Vitamin D Target Range: 30.0-40.0 ng/mLOperator ID - EO Lab Interpretation (test Normal code = 15366-9) [facility] CenterVITAMIN D, [id number] 18:39:00 Test Item Value Reference Range Interpretation Comments VITAMIN D 25-OH (BEAKER) (test code 9.7 ng/mL 6.6-49.9 = 2764) Effective 03/12/2017: Reference Range ChangeNew: 6.6-49.9 ng/mL Previous: 13.0- 47.8 ng/mLRecommendedVitamin D Target Range: 30.0-40.0 ng/mLOperator ID - EO Gjqoc-7-xmiqjvlrgnz1276-07-10 18:22:00 Test Item Value Reference Range Interpretation Comments A-1 Antitrypsin (test code = 127.60 mg/dL 90-200 1825-9) JULIAN (test code = JULIAN) Anthropology Department Chair ID - EO Lab Interpretation (test Normal code = 29673-8) [facility] CenterRgfqfbLLCER-8-[id number] 18:22:00 Test Item Value Reference Range Interpretation Comments ALPHA-1 ANTITRYPSIN (BEAKER) 127.60 mg/dL 90.00-200.00 (test code = 502) Anthropology Department Chair ID - [id number] 17:32:00 Test Item Value Reference Range Interpretation Comments AMMONIA (BEAKER) (test code = 348) 97 mol/L 18-72 H Anthropology Department Chair ID - DBUrinalysis w/Microscopic + Reflex to [id number] 17:27:00 Test Item Value Reference Range Interpretation Comments Color, UA (test code Light Yellow = 5778-6) Clarity, UA (test Clear code = 5767-9) Specific [place], UA 1.017 1.001-1.035 (test code = 5811-5) pH, UA (test code = 6.0 5.0-8.0 5803-2) Protein, UA (test 20 mg/dL Negative A code = 06317-2) Glucose, UA (test Negative Negative code = 365) Ketones, UA (test 10 mg/dL Negative A code = 2514-8) Bilirubin, UA (test Negative Negative code = 33706-1) Blood, UA (test code Moderate Negative A = 36456-6) Nitrite, UA (test Negative Negative code = 5802-4) Leukocytes, UA (test Moderate Negative A code = 5799-2) Urobilinogen, UA 0.2 mg/dL 0.2-1 (test code = 39465-7) RBC, UA (test code = 137 See_Comment [Autom ated 25914-7) message] The system which generated this result [...] . Bacteria, UA (test Few code = 77847-9) Mucus (test code = Rare 8247-9) Squam Epithel, UA <1 See_Comment [Automate d (test code = 43615-0) messag e] The system which generated this result transmitted reference range : /HPF. The reference range was not used to interpret this result as normal/abnormal . Hyaline Casts, UA 4 See_Comment [Automate d (test code = 44193-9) messag e] The system which generated this result transmitted reference range : /LPF. The reference range was not used to interpret this result as normal/abnormal . Crystals, Urine (test Occasional code = 60949-8) Specimen Source (test code = 2795) JULIAN (test code = JULIAN) Anthropology Department Chair ID - [auto]Anthropology Department Chair ID - tech Lab Interpretation Abnormal (test code = 98116-2) [facility] CenterURINALYSIS W/ REFLEX URINE [id number] 17:27:00 Test Item Value Reference Range Interpretation [...] code = 1521) SOURCE(BEAKER) (test code = 2575) Anthropology Department Chair ID - [auto]Anthropology Department Chair ID - pdonQrkmmsts4924-58-96 16:11:00 Test Item Value Reference Range Interpretation Comments Ferritin (test code = 30.15 ng/mL 5-275 2276-4) JULIAN (test code = JULIAN) Anthropology Department Chair ID - DB Lab Interpretation (test Normal code = 56240-7) [facility] CenterFERRITIN2021-07-10 16:11:00 Test Item Value Reference Range Interpretation Comments FERRITIN (BEAKER) (test code = 30.15 ng/mL 5.00-275.00 361) Anthropology Department Chair ID - DBAcetaminophen [id number] 15:52:00 Test Item Value Reference Range Interpretation Comments Acetaminophen Level <5.7 10-30 L (test code = 3298-7) JULIAN (test code = JULIAN) Therapeutic Range: 10.0-30.0 µg/mLToxic Levels: >200.0 µg/mL Anthropology Department Chair ID - DB Lab Interpretation (test Abnormal code = 06058-7) [facility] CenterACETAMINOPHEN [id number] 15:52:00 Test Item Value Reference Range Interpretation Comments ACETAMINOPHEN LEVEL (BEAKER) (test < ug/mL 10.0-30.0 L code = 344) Therapeutic Range: 10.0-30.0 g/mLToxic Levels: >200.0 g/mLOperator ID - DB COMPREHENSIVE METABOLIC [id number] 15:52:00 Test Item Value Reference Range Interpretation [...] S NOT APPLICABLE FOR DIALYSIS PATIEN TS. Anthropology Department Chair ID - DBIron, TIBC, % sat. (without ferritin)2020-12-09 15:51:00 Test Item Value Reference Range Interpretation Comments Iron (test code = 2498-4) 160.0 ug/dL 40-160 TIBC (test code = 2500-7) 355 ug/dL 250-450 Iron % Saturation (test code 45 % 20-55 = 2502-3) JULIAN (test code = JULIAN) Anthropology Department Chair ID - DB Lab Interpretation (test Normal code = 07911-0) [facility] % SAT. (WITHOUT FERRITIN)2020-12-09 15:51:00 Test Item Value Reference Range Interpretation Comments IRON (BEAKER) (test code = 547) 160.0 ug/dL 40.0-160.0 TOTAL IRON BINDING CAPACITY 355 ug/dL 250-450 (BEAKER) (test code = 769) IRON % SATURATION (2) (BEAKER) 45 % 20-55 (test code = 2590) Anthropology Department Chair ID - DBCBC W/PLT COUNT & AUTO [id number] 15:32:00 Test Item Value Reference Range Interpretation [...] PERCENT (BEAKER) (test code = 2801) CHEM [id number] 19:53:00 Test Item Value Reference Range Interpretation Comments Glucose Lvl (test code = Glucose Lvl) 223 65-[address] [facility] [id number] 19:53:00 Test Item Value Reference Range Interpretation Comments BUN (test code = BUN) 18 7-[address] [facility] [id number] 19:53:00 Test Item Value Reference Range Interpretation Comments Creatinine Lvl (test code = Creatinine 1.37 0.50-1.05 Lvl) [facility] [id number] 19:53:00 Test Item Value Reference Range Interpretation Comments eGFR NON-AFR. HONDURAN (test code = 44 eGFR NON-AFR. HONDURAN) [facility] [employer] [id number] 19:53:00 Test Item Value Reference Range Interpretation Comments eGFR (test code = eGFR 51 ) [facility] [employer] [id number] 19:53:00 Test Item Value Reference Range Interpretation Comments B/C Ratio (test code = B/C Ratio) 13 6-[address] [facility] [id number] 19:53:00 Test Item Value Reference Range Interpretation Comments Sodium Lvl (test code = Sodium Lvl) 141 135-146 [facility] [employer] [id number] 19:53:00 Test Item Value Reference Range Interpretation Comments Potassium Lvl (test code = Potassium 3.9 3.5-5.3 Lvl) [facility] [employer] [id number] 19:53:00 Test Item Value Reference Range Interpretation Comments Chloride Lvl (test code = Chloride Lvl) 99 98-110 [facility] [employer] [id number] 19:53:00 Test Item Value Reference Range Interpretation Comments CO2 (test code = CO2) 31 20-32 [facility] [employer] [id number] 19:53:00 Test Item Value Reference Range Interpretation Comments Calcium Lvl (test code = Calcium Lvl) 9.6 8.6-10.4 [facility] [employer] [id number] 19:53:00 Test Item Value Reference Range Interpretation Comments Total Protein (test code = Total 7.6 6.1-8.1 Protein) [facility] [employer] [id number] 19:53:00 Test Item Value Reference Range Interpretation Comments Albumin Lvl (test code = Albumin Lvl) 3.9 3.6-5.1 [place] [id number] 19:53:00 Test Item Value Reference Range Interpretation Comments Globulin (test code = Globulin) 3.7 1.9-3.[address] [facility]2021-05-24 19:53:00 Test Item Value Reference Range Interpretation Comments A/G Ratio (test code = A/G Ratio) 1.1 1.0-2.[address] [facility]2021-05-24 19:53:00 Test Item Value Reference Range Interpretation Comments Bili Total (test code = Bili Total) 0.8 0.2-1.[address] [facility]2021-05-24 19:53:00 Test Item Value Reference Range Interpretation Comments Alk Phos (test code = Alk Phos) 95 37-[address] [facility]2021-05-24 19:53:00 Test Item Value Reference Range Interpretation Comments ASPARTATE TRANSAMINASE (test code = 29 10-35 ASPARTATE TRANSAMINASE) [facility]2021-05-24 19:53:00 Test Item Value Reference Range Interpretation Comments ALANINE AMINOTRANSFERASE (test code = 27 6-29 ALANINE AMINOTRANSFERASE) [facility]2021-05-24 19:53:00 Test Item Value Reference Range Interpretation Comments Ammonia (test code = Ammonia) 114 [facility] [id number] 19:53:00 Test Item Value Reference Range Interpretation Comments Hgb A1C (test code = Hgb A1C) 9.[address] [facility]2021-05-24 19:53:00 Test Item Value Reference Range Interpretation Comments Glucose Lvl (test code = Glucose Lvl) 223 65-[address] [facility]2021-05-24 19:53:00 Test Item Value Reference Range Interpretation Comments BUN (test code = BUN) 18 7-[address] [facility]2021-05-24 19:53:00 Test Item Value Reference Range Interpretation Comments Creatinine Lvl (test code = Creatinine 1.37 0.50-1.05 Lvl) [facility]2021-05-24 19:53:00 Test Item Value Reference Range Interpretation Comments eGFR NON-AFR. HONDURAN (test code = 44 eGFR NON-AFR. HONDURAN) [place] [id number] 19:53:00 Test Item Value Reference Range Interpretation Comments eGFR (test code = eGFR 51 ) [place] 476851-05-24 19:53:00 Test Item Value Reference Range Interpretation Comments B/C Ratio (test code = B/C Ratio) 13 6-22 [place] 476851-05-24 19:53:00 Test Item Value Reference Range Interpretation Comments Sodium Lvl (test code = Sodium Lvl) 141 135-[address] [facility]2021-05-24 19:53:00 Test Item Value Reference Range Interpretation Comments Potassium Lvl (test code = Potassium 3.9 3.5-5.3 Lvl) [facility]2021-05-24 19:53:00 Test Item Value Reference Range Interpretation Comments Chloride Lvl (test code = Chloride Lvl) 99 98-[address] [facility]2021-05-24 19:53:00 Test Item Value Reference Range Interpretation Comments CO2 (test code = CO2) 31 20-32 [place] 476851-05-24 19:53:00 Test Item Value Reference Range Interpretation Comments Calcium Lvl (test code = Calcium Lvl) 9.6 8.6-10.[address] [facility]2021-05-24 19:53:00 Test Item Value Reference Range Interpretation Comments Total Protein (test code = Total 7.6 6.1-8.1 Protein) [facility]2021-05-24 19:53:00 Test Item Value Reference Range Interpretation Comments Albumin Lvl (test code = Albumin Lvl) 3.9 3.6-5.[address] [facility]2021-05-24 19:53:00 Test Item Value Reference Range Interpretation Comments Globulin (test code = Globulin) 3.7 1.9-3.7 [place] 476851-05-24 19:53:00 Test Item Value Reference Range Interpretation Comments A/G Ratio (test code = A/G Ratio) 1.1 1.0-2.5 [place] 476851-05-24 19:53:00 Test Item Value Reference Range Interpretation Comments Bili Total (test code = Bili Total) 0.8 0.2-1.2 [place] 476851-05-24 19:53:00 Test Item Value Reference Range Interpretation Comments Alk Phos (test code = Alk Phos) 95 37-[address] [facility]2021-05-24 19:53:00 Test Item Value Reference Range Interpretation Comments ASPARTATE TRANSAMINASE (test code = 29 10-35 ASPARTATE TRANSAMINASE) [place] 476851-05-24 19:53:00 Test Item Value Reference Range Interpretation Comments ALANINE AMINOTRANSFERASE (test code = 27 6-29 ALANINE AMINOTRANSFERASE) [facility]2021-05-24 19:53:00 Test Item Value Reference Range Interpretation Comments Ammonia (test code = Ammonia) 114 [facility]2021-05-24 19:53:00 Test Item Value Reference Range Interpretation Comments Hgb A1C (test code = Hgb A1C) 9.[address] [facility]2021-05-24 19:53:00 Test Item Value Reference Range Interpretation Comments ALANINE AMINOTRANSFERASE (test code = 27 6-29 ALANINE AMINOTRANSFERASE) [facility]2021-05-24 19:53:00 Test Item Value Reference Range Interpretation Comments Ammonia (test code = Ammonia) 114 [facility]2021-05-24 19:53:00 Test Item Value Reference Range Interpretation Comments Hgb A1C (test code = Hgb A1C) 9.5 [facility] [id number] 19:53:00 Test Item Value Reference Range Interpretation Comments Glucose Lvl (test code = Glucose Lvl) 223 65-[address] [facility]2021-05-24 19:53:00 Test Item Value Reference Range Interpretation Comments BUN (test code = BUN) 18 7-25 [place] 476851-05-24 19:53:00 Test Item Value Reference Range Interpretation Comments Creatinine Lvl (test code = Creatinine 1.37 0.50-1.05 Lvl) [facility]2021-05-24 19:53:00 Test Item Value Reference Range Interpretation Comments eGFR NON-AFR. HONDURAN (test code = 44 eGFR NON-AFR. HONDURAN) [facility]2021-05-24 19:53:00 Test Item Value Reference Range Interpretation Comments eGFR (test code = eGFR 51 ) [facility]2021-05-24 19:53:00 Test Item Value Reference Range Interpretation Comments B/C Ratio (test code = B/C Ratio) 13 6-[address] [facility]2021-05-24 19:53:00 Test Item Value Reference Range Interpretation Comments Sodium Lvl (test code = Sodium Lvl) 141 135-146 [place] 476851-05-24 19:53:00 Test Item Value Reference Range Interpretation Comments Potassium Lvl (test code = Potassium 3.9 3.5-5.3 Lvl) [place] 476851-05-24 19:53:00 Test Item Value Reference Range Interpretation Comments Chloride Lvl (test code = Chloride Lvl) 99 98-110 [place] 476851-05-24 19:53:00 Test Item Value Reference Range Interpretation Comments CO2 (test code = CO2) 31 20-32 [place] 476851-05-24 19:53:00 Test Item Value Reference Range Interpretation Comments Calcium Lvl (test code = Calcium Lvl) 9.6 8.6-10.4 [place] 476851-05-24 19:53:00 Test Item Value Reference Range Interpretation Comments Total Protein (test code = Total 7.6 6.1-8.1 Protein) [place] 476851-05-24 19:53:00 Test Item Value Reference Range Interpretation Comments Albumin Lvl (test code = Albumin Lvl) 3.9 3.6-5.1 [place] 476851-05-24 19:53:00 Test Item Value Reference Range Interpretation Comments Globulin (test code = Globulin) 3.7 1.9-3.7 [place] 476851-05-24 19:53:00 Test Item Value Reference Range Interpretation Comments A/G Ratio (test code = A/G Ratio) 1.1 1.0-2.5 [place] 476851-05-24 19:53:00 Test Item Value Reference Range Interpretation Comments Bili Total (test code = Bili Total) 0.8 0.2-1.2 [place] 476851-05-24 19:53:00 Test Item Value Reference Range Interpretation Comments Alk Phos (test code = Alk Phos) 95 37-153 [place] 476851-05-24 19:53:00 Test Item Value Reference Range Interpretation Comments ASPARTATE TRANSAMINASE (test code = 29 10-35 ASPARTATE TRANSAMINASE) [facility]
[2023-03-10 22:45] LABS: Absolute Lymphocytes (CBC) 1.2 K/uL (0.7-4.9); Hematocrit 32.5 % (36.0-45.0); Lymphocytes % 18.3 % (15.3-44.8); MCV 85.8 fL (80-100); MPV 9.8 fL (7.6-11.3); Platelets 54 thou/uL (152-406); RBC Red Blood Cell Count 3.79 M/uL (3.86-4.86)
[2023-03-10 22:49] LABS: Protime INR 1.21
[2023-03-10 22:58] LABS: Albumin 3.3 g/dL (3.4-5.0); Bilirubin Direct 0.2 mg/dL (0-0.2); Bilirubin Indirect, Calculated 0.5 mg/dL (0.2-0.8); Bilirubin Total 0.7 mg/dL (0.2-1.0); Potassium 4.8 mEq/L (3.5-5.1); Protein, Total 8.1 g/dL (6.4-8.2); Troponin High Sensitivity 3.4 pg/mL (<58.9)
[2023-03-10 22:59] LABS: Magnesium 2.4 mg/dL (1.6-2.4)
[2023-03-10] MEDS ORDERED: ONDANSETRON 4 MG/2 ML VIAL ONE (23:18)
[2023-03-10] MEDS ORDERED: MORPHINE 4 MG/ML SYR ONE (23:18)
--- NOTE | 2023-03-11 00:43 | EDPHYS ---
Physician Documentation [facility] Name: Cheyenne Mcgill Age: 57 yrs Sex: Female : 1965 Arrival Date: 03/10/2023 Time: 21:37 Bed 6 Private MD: ED Physician Leonard Alegre HPI: 03/11 00:44 This 57 yrs old Female presents to ER via Wheelchair with complaints of Fall Injury. kb 00:44 Details of fall: The patient fell from an upright position. Onset: The symptoms/episode kb began/occurred 4 day(s) ago. Associated injuries: The patient sustained injury to the chest, pain with breathing, pain with movement. Severity of symptoms: At their worst the symptoms were moderate, in the emergency department the symptoms are unchanged. The patient has not experienced similar symptoms in the past. The patient has not recently seen a physician. Pt reports she had a syncopal episode 4 days ago and has had pain to bilateral lower ribs since then, worse with deep breath and movement. States she has syncopal episodes all of the time that started months ago. States she has seen neurology, but they haven't found the cause. . Historical: - Allergies: 03/10 21:46 No Known Allergies; mb9 - PMHx: 21:46 splenomegaly; low platelets; Hepatitis; Diabetes - NIDDM; cirrhosis of liver; mb9 - PSHx: 21:46 section; mb9 - Immunization history:: Adult Immunizations up to date. - Social history:: Smoking status: Patient reports the use of cigarette tobacco products, smokes one pack cigarettes per day. ROS: 03/11 00:44 Constitutional: Negative for fever, chills, and weight loss, kb Cardiovascular: Positive for lower rib pain, All other systems are negative, Exam: 00:44 Constitutional: This is a well developed, well nourished patient who is awake, alert, kb and in no acute distress. Head/Face: Normocephalic, atraumatic. ENT: Moist Mucous membranes Cardiovascular: Regular rate Respiratory: Respirations even and unlabored. No increased work of breathing. Talking in full sentences Abdomen/GI: Soft, non-tender. Skin: Warm, dry with normal turgor. Normal color. MS/ Extremity: Pulses equal, no cyanosis. Neurovascular intact. Full, normal range of motion. Neuro: Awake and alert, GCS 15, oriented to person, place, time, and situation. Moves all extremities. Normal gait. 00:44 Chest/axilla: Inspection: normal, Palpation: tenderness, that is moderate, of the left lateral posterior chest, right lateral posterior chest, left lateral anterior chest and right lateral anterior chest, that totally reproduces the patient's complaints, Vital Signs: 03/10 21:44 BP 125 / 89; Pulse 85; Resp 18; Temp 98.8; Pulse Ox 95% on R/A; Weight 47.63 kg; Height mb9 4 ft. 11 in. ; Pain 03/11; 23:30 BP 115 / 71; Pulse 90; Resp 19; Pulse Ox 95% ; bp 21:44 Body Mass Index 21.21 (47.63 kg, 149.86 cm) mb9 21:44 Pain Scale: Adult mb9 MDM: 21:43 Patient medically screened. kb 03/11 00:47 Differential diagnosis: closed head injury, contusion, fracture, sprain, strain. Data kb reviewed: vital signs, nurses notes. Consideration of Admission/Observation Escalation of care including admission/observation considered. admission considered, but labs improved since previous admission, pain decreased and pt is comfortable, CT without acute findings. Pt in agreement with outpatient treatment. . Historians other than the Patient: Parent: mother. External Records Reviewed: Inpatient record: discharge summary and labs from previous admission reviewed. . Counseling: I had a detailed discussion with the patient and/or guardian regarding the historical points, exam findings, and any diagnostic results supporting the discharge/admit diagnosis, lab results, radiology results, the need for outpatient follow up, a family practitioner, a neurologist, to return to the emergency department if symptoms worsen or persist or if there are any questions or concerns that arise at home. 03/10 21:54 Order name: Basic Metabolic Panel; Complete Time: 23:19 kb 03/10 21:54 Order name: CBC with Diff; Complete Time: 00:49 kb 03/10 21:54 Order name: Hepatic Function; Complete Time: 23:19 kb 03/10 21:54 Order name: Magnesium; Complete Time: 23:19 kb 03/10 21:54 Order name: Protime (+inr); Complete Time: 22:49 kb 03/10 21:54 Order name: Ptt, Activated; Complete Time: 22:49 kb 03/10 21:54 Order name: Troponin High Sensitivity; Complete Time: 23:19 kb 03/10 22:50 Order name: CBC Smear Scan; Complete Time: 00:49 EDMS 03/10 23:04 Order name: NT PRO-BNP; Complete Time: 23:19 EDMS 03/10 21:54 Order name: CT Traumagram (Head C Spine CAP W Con) kb 03/10 21:54 Order name: EKG; Complete Time: 21:55 kb 03/10 21:54 Order name: Cardiac monitoring; Complete Time: 22:30 kb 03/10 21:54 Order name: EKG - Nurse/Tech; Complete Time: 22:30 kb 03/10 21:54 Order name: IV Saline Lock; Complete Time: 22:30 kb 03/10 21:54 Order name: Labs collected and sent; Complete Time: 22:30 kb 03/10 21:54 Order name: NPO; Complete Time: 22:30 kb 03/10 21:54 Order name: O2 Per Protocol; Complete Time: 22:30 kb 03/10 21:54 Order name: O2 Sat Monitoring; Complete Time: 22:30 kb Administered Medications: 03/10 23:09 Drug: morphine IVP or IV 4 mg IVP once over 4 mins Route: IVP; Infused Over: 4 mins; bp Site: right antecubital; 23:09 Drug: Ondansetron IVP 4 mg IVP once; over 2 minutes Route: IVP; Site: right antecubital;bp Disposition Summary: 03/11/23 00:42 Discharge Ordered Notes: Location: Home kb Condition: Stable kb Diagnosis - Syncope kb - Rib pain kb Followup: kb - With: Emergency Department - When: As needed - Reason: Worsening of condition Followup: kb - With: Private Physician - When: 2 - 3 days - Reason: Recheck today's complaints, Continuance of care, Re-evaluation by your physician Discharge Instructions: - Discharge Summary Sheet kb - Musculoskeletal Pain kb - Syncope, [id number] kb Forms: - Medication Reconciliation Form kb - Thank You Letter kb - Antibiotic Education kb - Prescription Opioid Use kb - Patient Portal Instructions kb - Leadership Thank You Letter kb Signatures: Dispatcher [employer] EDZina Engel, DULCE-C CURRICULUM MANAGER-Bryson Salter, RN RN Lauren Mijares RN RN mb9 Corrections: (The following items were deleted from the chart) :02 23:00 PROBNP+C.HARITHA.SHELLI ordered. EDMS EDMS
--- NOTE | 2023-03-11 00:43 | ER ---
Nurse's Notes [facility] Name: Cheyenne Mcgill Age: 57 yrs Sex: Female : 1965 Arrival Date: 03/10/2023 Time: 21:37 Bed 6 Private MD: Diagnosis: Syncope;Rib pain Presentation: 03/10 21:44 Chief complaint: Patient states: "Friday, I passed out and fell hitting my back and mb9 head. I get dizzy and just pass out all the time. It feels like it's broken or fractured. It hurts when I taken a deep breath". Coronavirus screen: At this time, the client does not indicate any symptoms associated with coronavirus-19. Ebola Screen: No symptoms or risks identified at this time. Initial Sepsis Screen: Does the patient meet any 2 criteria? No. Patient's initial sepsis screen is negative. Does the patient have a suspected source of infection? No. Patient's initial sepsis screen is negative. Risk Assessment: Do you want to hurt yourself or someone else? Patient reports no desire to harm self or others. Onset of symptoms was March 10, 2023. 21:44 Method Of Arrival: Wheelchair mb9 21:44 Acuity: ABDULKADIR 3 mb9 Triage Assessment: 21:47 General: Appears uncomfortable, Behavior is calm, cooperative. Pain: Complains of pain mb9 in back Pain currently is 10 out of 10 on a pain scale. Quality of pain is described as throbbing, Pain began 2-3 days ago. Is continuous. EENT: No signs and/or symptoms were reported regarding the EENT system. Neuro: Level of Consciousness is awake, alert, obeys commands, Oriented to person, place, time, situation, Appropriate for age Reports dizziness. Cardiovascular: Patient's skin is warm and dry. Respiratory: Airway is patent Respiratory effort is even, unlabored, Respiratory pattern is regular, symmetrical. GI: No signs and/or symptoms were reported involving the gastrointestinal system. : No signs and/or symptoms were reported regarding the genitourinary system. Derm: No signs and/or symptoms reported regarding the dermatologic system. Musculoskeletal: Range of motion: intact in all extremities. Historical: - Allergies: 21:46 No Known Allergies; mb9 - PMHx: 21:46 splenomegaly; low platelets; Hepatitis; Diabetes - NIDDM; cirrhosis of liver; mb9 - PSHx: 21:46 section; mb9 - Immunization history:: Adult Immunizations up to date. - Social history:: Smoking status: Patient reports the use of cigarette tobacco products, smokes one pack cigarettes per day. Screenin:31 [facility] ED Fall Risk Assessment (Adult) History of falling in the last 3 months, bp including since admission No falls in past 3 months (0 pts). Abuse screen: Denies threats or abuse. Denies injuries from another. Nutritional screening: No deficits noted. Tuberculosis screening: No symptoms or risk factors identified. Assessment: 21:50 General: SEE TRIAGE NOTE. bp 23:30 Reassessment: PT RETURNED FROM CT. bp 03/11 00:30 Reassessment: Patient appears in no apparent distress at this time. Patient and/or jb4 family updated on plan of care and expected duration. Pain level reassessed. Patient is alert, oriented x 3, equal unlabored respirations, skin warm/dry/pink. 01:26 Reassessment: Patient appears in no apparent distress at this time. Patient and/or jb4 family updated on plan of care and expected duration. Pain level reassessed. Patient is alert, oriented x 3, equal unlabored respirations, skin warm/dry/pink. Pt is able to ambulate with a steady gait. Vital Signs: 03/10 21:44 BP 125 / 89; Pulse 85; Resp 18; Temp 98.8; Pulse Ox 95% on R/A; Weight 47.63 kg; Height mb9 4 ft. 11 in. ; Pain /; 23:30 BP 115 / 71; Pulse 90; Resp 19; Pulse Ox 95% ; bp 21:44 Body Mass Index 21.21 (47.63 kg, 149.86 cm) mb9 21:44 Pain Scale: Adult mb9 ED Course: 21:40 Patient arrived in ED. ag3 21:43 Zina Muñiz FNP-C [facility] kb 21:43 Leonard Alegre MD is Attending Physician. kb 21:46 Triage completed. mb9 21:46 Arm band placed on. mb9 21:53 Bryson Whitten, MARIA M is Primary Nurse. bp 23:00 Inserted saline lock: 22 gauge in right forearm, using aseptic technique. Blood bp collected. 23:31 Patient has correct armband on for positive identification. Bed in low position. Call bp light in reach. Side rails up X2. 23:41 CT Traumagram (Head C Spine CAP W Con) In Process Unspecified. EDMS 03/11 01:26 No provider procedures requiring assistance completed. IV discontinued, intact, jb4 bleeding controlled, No redness/swelling at site. Pressure dressing applied. Administered Medications: 03/10 23:09 Drug: morphine IVP or IV 4 mg IVP once over 4 mins Route: IVP; Infused Over: 4 mins; bp Site: right antecubital; 23:09 Drug: Ondansetron IVP 4 mg IVP once; over 2 minutes Route: IVP; Site: right antecubital;bp Medication: 03/11 01:26 VIS not applicable for this client. jb4 Outcome: 00:42 Discharge ordered by . payam 01:26 Discharged to home ambulatory, via wheelchair, jb4 01:26 Condition: stable 01:26 Discharge instructions given to patient, friend, Instructed on discharge instructions, follow up and referral plans. Demonstrated understanding of instructions, follow-up care, 01:27 Patient left the ED. jb4 Signatures: Dispatcher [employer] EDMS Zina Muñiz, SHARED SERVICES REPRESENTATIVE-C SHARED SERVICES REPRESENTATIVE-Duncan Jefferson RN RN jb4 Bryson Whitten, RN RN bp Lori Mosqueda 3 Lauren Mckeon RN RN mb9
[2023-03-11 00:49] LABS: Anisocytosis 1+; Blood Morphology Comment NOTED (NOT SEEN); Platelet Estimate DECR; White Blood Cell Scan OK (OK)
[2023-03-11 03:04] VITALS: TEMP 98.8; O2SAT 95
[2023-03-11 03:26] VITALS: BP 115/71
--- NOTE | 2023-03-11 11:40 | EKG ---
Test Date: 2023-03-10 Test Time: 22:24:42 Piano Regulator: SUYAPA MEASUREMENT RESULTS: Intervals: Rate: 87 [place]: 178 QRSD: 84 QT: 450 QTc: 541 [place]: P: 73 [place]: 178 QRS: 73 T: 73 INTERPRETIVE STATEMENTS: Normal sinus rhythm ST & T wave abnormality, consider lateral ischemia Prolonged QT Abnormal ECG Compared to ECG 06/12/2021 20:58:46 ST (T wave) deviation now present Possible ischemia now present Prolonged QT interval now present Electronically Signed On 03-11-23 11:38:54 CDT by Manuel Mojica
--- NOTE | 2023-03-11 14:39 | RAD REPORT ---
EXAM DESCRIPTION: CT - Head C Spine Rey Melton - 03/11/2023 6:55 am CLINICAL HISTORY: The patient is 57 years old and is Female; PAIN TECHNIQUE: Axial computed tomography images of the head/brain and cervical spine with intravenous co ntrast. Sagittal and coronal reformatted images were created and reviewed. This CT exam was perfo rmed using one or more of the following dose reduction techniques: automated exposure control, adju stment of the mA and/or kV according to patient size, and/or use of iterative reconstruction techniqu e. COMPARISON: No relevant prior studies available. FINDINGS: BRAIN: Unremarkable. No hemorrhage. No edema. Normal enhancement. VENTRICLES: Unremarkable. No ventriculomegaly. SKULL: No acute fracture. SINUSES: Unremarkable as visualized. No acute sinusitis. MASTOID AIR CELLS: Unremarkable as visualized. No mastoid effusion. VERTEBRAE: See below. DISCS/SPINAL CANAL/NEURAL FORAMINA: Intervertebral disc space narrowing with anterior osteophyte formation at C3-C4 is present. Mild versus of the endplates at these levels is noted. The remaining i ntervertebral disc spaces are maintained. Mild neural foraminal narrowing secondary to posterior disc osteophyte complex at C3-C4 is present. There is no significant canal stenosis. SOFT TISSUES: The soft tissues are normal. LUNG APICES: Unremarkable as visualized. IMPRESSION: 1. No acute intracranial findings. 2. No fracture or malalignment of the cervical spine. EXAM DESCRIPTION: CT Chest, Abdomen and Pelvis With Intravenous Contrast CLINICAL HISTORY: The patient is 57 years old and is Female; PAIN TECHNIQUE: Axial computed tomography images of the chest, abdomen and pelvis with intravenous contra st. Sagittal and coronal reformatted images were created and reviewed. This CT exam was performed using one or more of the following dose reduction techniques: automated exposure control, adjustme nt of the mA and/or kV according to patient size, and/or use of iterative reconstruction technique. COMPARISON: CT of the abdomen and pelvis June 12, 2021. FINDINGS: CHEST: LUNGS: The lungs are clear of focal opacity, mass, or consolidation. PLEURAL SPACE: Unremarkable. No significant effusion. No pneumothorax. HEART: No cardiomegaly. No pericardial effusion. ABDOMEN: LIVER: The liver is cirrhotic with a nodular contour. GALLBLADDER AND BILE DUCTS: Calcified gallstones are present within the gallbladder. There is no ductal dilatation or gallbladder wall thickening. PANCREAS: No ductal dilation. No mass. SPLEEN: The spleen is enlarged. ADRENALS: Unremarkable. No mass. KIDNEYS AND URETERS: Unremarkable. The kidneys enhance symmetrically. No obstructing renal or ure teral calculus is seen. No hydronephrosis or hydroureter. No perinephric fluid or stranding. STOMACH AND BOWEL: The stomach is distended with food contents. The small bowel is relatively nor mal in caliber. A moderate amount stool is present throughout the colon. There is no mucosal thickeni ng or evidence of obstruction. PELVIS: APPENDIX: The appendix is normal in caliber without surrounding inflammation. BLADDER: The bladder is well distended. REPRODUCTIVE: Unremarkable as visualized. CHEST, ABDOMEN and PELVIS: INTRAPERITONEAL SPACE: Unremarkable. No significant fluid collection. No free air. BONES/JOINTS: Chronic compression deformity of the superior endplate of T1, T3, T4, and T11 is pr esent. Chronic vertebral plana of L1 is noted with moderate retropulsion, the appearances prior exam. Chronic Schmorl's node superior endplate of L4 with sclerosis is present. The remaining vertebral danny dy heights are relatively maintained. There is no acute fracture visualized axial and appendicular skeleton. SOFT TISSUES: The soft tissues are normal. VASCULATURE: Several prominent varices in the region of the esophagus are present. No aortic an eurysm. LYMPH NODES: Unremarkable. No enlarged lymph nodes. IMPRESSION: 1. Cholelithiasis without CT evidence to suggest cholecystitis. 2. Cirrhotic liver and splenomegaly. 3. Moderate stool burden without obstruction. Electronically signed by: Alise Haas MD 03/11/2023 12:02 AM CDT Due to temporary technical issues with the PACS/Fluency reporting system, reports are being signed by the in house radiologists without review as a courtesy to insure prompt reporting. The interpreting radiologist is fully responsible for the content of the report.
== END 2023-03-11 01:27 | disposition home or self-care (01) ==
LOC: ER 21:37
DX: R55 Syncope and collapse (principal); R07.81 Pleurodynia; E11.9 Type 2 diabetes mellitus without complications; K74.60 Unspecified cirrhosis of liver; Z72.0 Tobacco use
CPT/HCPCS: 36415; 70450; 71260; 72125; 74177; 80048; 80076; 83735; 83880; 84484; 85025; 85610; 85730; 93005; 96374; 96375; 99284; J2405; Q9967

== ENCOUNTER 2023-03-29 10:51 | Emergency (ER) | payer BC ==
--- OUTSIDE RECORDS SUMMARY | 2023-03-29 10:55 | XMS REPORT | Clinical Summary ---
:1965 Author Organization [facility] Address [address] [place] [id number] Care Team Providers Name Role Phone Unavailable Primary Care Provider Unavailable Allergies Not on File Medications Not on file Active Problems Not on file Immunizations Name Administration Dates Next Due Feliz SARS-CoV-2 Vaccination 08/12/2020 Social History Tobacco Use Types Packs/Day Years Used Date Smoking Tobacco: Never Assessed Sex and Gender Information Value Date Recorded Sex Assigned at Not on file Gender Identity Not on file Sexual Orientation Not on file Last Filed Vital Signs Not on file Plan of Treatment Not on file Results Not on fileafter 03/29/2022
--- OUTSIDE RECORDS SUMMARY | 2023-03-29 11:07 | XMS REPORT | Continuity of Care Document ---
:1965 Author Organization [facility] t Address [address] [facility] [address] [place] [address] Care Team Providers Name Role Phone Asked, No Pcp Primary Care Physician Unavailable Phylicia Gonzalez Attending Clinician Unavailable KOMAL OWEN Attending Clinician Unavailable OLGA JAIN Attending Clinician Unavailable SP PHELPS Attending Clinician Unavailable MERE DONG Attending Clinician Unavailable LYNDSEY PARKER Attending Clinician Unavailable KHOI KWAN Attending Clinician Unavailable Khoi Kwan MD Attending Clinician Doctor Unassigned, [place] Attending Clinician Unavailable Haseeb Siddiqui MD Attending Clinician Lauren Ortiz Attending Clinician Unavailable Michelle Medina Attending Clinician Unavailable Mason NULL, [place] Attending Clinician Dennis FRANZ, Marcus Bernardo Attending Clinician Unavailable PAUL HARGROVE Attending Clinician Unavailable Martir CAMPBELL Zeynep J Attending Clinician Delvin NULL, Paul Attending Clinician Michael NULL, Perri Cotton Attending Clinician Brayden NULL, Komal Wood Attending Clinician [phone] Timothy NULL, Leonardo García Attending Clinician Raúl NULL, Kalia Royal Attending Clinician Reji NULL, Wendy Elizabeth Attending Clinician [phone] Verito NULL, Neela Smyth Attending Clinician Roseann Luna CRNA Attending Clinician ERNESTO ARIAS Attending Clinician Unavailable IRENE WATTS Attending Clinician Unavailable NAJMA COFFMAN Attending Clinician Unavailable ANN LITTLE Attending Clinician Unavailable ERIC MARTINEZ Attending Clinician Unavailable ROMINA ROBLES Attending Clinician Unavailable HAVEN DOLAN Attending Clinician Unavailable CJ OSPINA Attending Clinician Unavailable oYu Gordillo Attending Clinician ROSE MARIE MEDRANO Attending [...] Jacobsen Attending Clinician Emily Lilly Attending Clinician [phone] Antonino, Conchita L Attending Clinician Unavailable Rachel Anton MD Dacel Attending Clinician [phone] Bill Roa MD Attending Clinician Osman NULL, Gunnar Hooks Attending Clinician [phone] Lawrence Ramos CRNA Attending Clinician Sheikh CHAKA, Hernando Aguirre Attending Clinician Yeni Vila PA-C Attending Clinician [phone] José Luis Dunlap Attending Clinician Unavailable Serina NLUL, Vandana De Oliveira Attending Clinician Oracio NULL, Zaida Attending Clinician Pablo NULL, Lyndsey Attending Clinician Ajith NULL, Georgina Ferraro Attending Clinician [phone] Halle NULL, Cinthia Attending Clinician Odilia NULL, Asha Attending Clinician Jamel Hernandez MD Attending Clinician Adi NULL, Misael Uribe Attending Clinician [phone] Martir NULL, Maddy Browning Attending Clinician [phone] Madelin NULL, Rosa Elena Brooks Attending Clinician [phone] GEORGE SPENCER Attending Clinician Unavailable Sp Phelps [...] Unavailable MARIVEL INGRAM Admitting Clinician Unavailable HASEEB MARTNI Admitting Clinician Unavailable ISAAC CARTAGENA Admitting Clinician Unavailable STEVEN HURTADO Admitting Clinician Unavailable Payers Payer Name Policy Type Policy Number Effective Date Expiration Date S nader BCBS MEDICARE [id number] 2021 ADVANTAGE 00:00:00 [employer] MEDICARE [id number] 2020 ADV 00:00:00 [employer] MEDICARE [id number] 2020 00:00:00 MEDICAID SSI PENDING 2019 PENDING 00:00:00 BCBS [facility] [id number] 2021 MEDICARE ADV 00:00:00 [facility] 111 [id number] 2021 Common S pirit Advantage HMO 00:00:00 - [facility] MEDICARE A B [id number] 2020 00:00:00 MEDICAID 365 [id number] 2019 2019 VENDOR 00:00:00 00:00:00 Problems Condition [...] [facility] palpation palpation 00:00: Medi iglesia 00 [place] Screening Screening Disease Active [facility] for colon for colon 8 [facility] cancer cancer 00:00: Medical 00 [place] Abnormal Abnormal Disease Active [facility] t liver liver 8 [facility] diagnostic diagnostic 00:00: Ne dical imaging imaging 00 [place] Common Common Disease Active [facility] bile duct bile duct 6-27 [facility] stone stone 00:00: Medical 00 [place] Hepatitis Hepatitis Disease Active [facility] C virus C virus 5-10 [facility] infection infection 00:00: [facility] cured cured 00 Center after after antiviral antiviral drug drug therapy therapy Hematemesi Hematemesi Disease Active C [facility] s with s with 4-07 [facility] nausea nausea 00:00: Medical 00 [place] Flank pain Flank pain Disease Active [facility] 4-06 [facility] 00:00: Medical 00 [place] Decompensa Decompensa Disease Recurre 2020-[address] gaby HCV gaby HCV nce 0-08 [facility] cirrhosis cirrhosis 00:00: [facility] 00 [place] Thrombocyt Thrombocyt Disease Recurre 2020-[address] openia openia nce 0-06 [facility] 00:00: Medical 00 [place] Rectal Rectal Disease Active 2020-[address] bleeding bleeding 0-06 [facility] 00:00: Medical 00 [place] Portal Portal Disease Recurre [facility] hypertensi [...] [facility] kidney kidney nce 12-10 [facility] injury) injury) 00:00: Medical 00 Center Gastrointe [...] Added automatic ally from request for surgery [id number] Esophageal Esophageal Disease Active Overview : Univers varices varices 12-04 Formattin ity o f without without 00:00: g of this [place] bleeding, bleeding, 00 note Medi iglesia unspecifie unspecifie might be Branch d d different esophageal esophageal from the varices varices original. type type Added automatic ally from request for surgery [id number] Encounter Encounter Disease Active Overview: Univers for for 12-04 Formattin ity of screening screening 00:00: g of this [place] for other for other 00 note Medi iglesia viral viral might be Branch diseases diseases different from the original. Added automatic ally from request for surgery [id number] Other Other Disease Active Overview: Univer s abnormal abnormal 12-04 Formattin ity of tumor tumor 00:00: g of this [place] markers markers 00 note Medical might be Branch different from the original. 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 hemorrhage hemorrhage Added type type automatic ally from request for surgery [id number] Cirrhosis, Cirrhosis, Disease Active U nivers non-alcoho [...] type automatic ally from request for surgery [id number] Hyperglyce Hyperglyce Disease Active U souravers socorro socorro 8-08 ity of 00:00: [place] 00 [facility] Branch Abdominal Abdominal Disease Active Uni vers pain pain 5-31 ity of 00:00: [place] 00 [facility] Branch Gallstone Gallstone Disease Active Uni vers pancreatit pancreatit 4-16 it y of is is 00:00: [place] 00 [facility] Branch Decompensa Decompensa Disease Active 2015-06 U anshu gaby gaby 0-29 ity of hepatic hepatic 00:00: [place] cirrhosis cirrhosis 00 [facility] Branch Type 2 Type 2 Disease Active 2015-06 Univers diabetes diabetes 0-06 ity of mellitus mellitus 00:00: [place] without without 00 Medical complicati complicati Br anch on on Chronic Chronic Disease Active 2015-06 Univers abdominal abdominal 0-06 ity of pain pain 00:00: [place] 00 Medical Branch 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 0-06 ity of 00:00: [place] 00 [facility] Branch Hepatitis Hepatitis Disease Active Uni vers C C 8-24 ity of 00:00: [place] 00 Medical Branch Hepatosple Hepatosple Disease Active U nivers nomegaly nomegaly 824 ity of 00:00: Medical Branch Thrombocyt Thrombocyt Disease Active U nivyenny openia openia 24 ity of 00:00: [place] Medical Branch Cirrhosis Cirrhosis Disease Active Met [...] without 00 l complicati complicati on on [id number] Thrombocyt Problem Co mmon openia Spirit - CHI [facility] [id number] Anemia in Problem Com mon other Spirit chronic - CHI diseases [facility] [id number] Mixed Problem Common hyperlipid Spirit emia - CHI [facility] [id number] Esophageal Problem Com mon varices Spirit determined - CHI by [facility] [id number] Type 2 Problem Commo n 9102 diabetes Spirit mellitus - CHI with other [facility] kidney Medical complicati Center on Chronic Chronic Problem Common viral viral Spirit hepatitis hepatitis - CH I B without B without delta-agen delta [facility] t agent and Medical without Center coma [id number] Major Problem Common depression Spirit , - CHI recurrent, [facility] Tobacco Smokes 1 Problem Common user pack of Spirit cigarettes - CHI per day [facility] [id number] Other Problem Common chronic Spirit pain - CHI [facility] Transient Problem Resolve 2021-08-12 M emoria ischemic Transient d 22:06:52 l attack ischemic Phenix (disorder) attack (disorder) Resolved Problem 08/12/2021 Medical Group,Misc her Neuro, ANTONIO St R41.3 - R41.3 - Diagnosis Active 2021-08-02 Memoria OTHER OTHER 11:26:00 l AMNESIA AMNESIA García K74.60 - K74.60 - UNSPECIFI UNSPECIFI Active ANTONIO [facility] Knee pain Knee pain Problem Active 2021-08-12 Memoria (finding) (finding) 22:06:52 l Active [place]ix Problem 08/12/2021 Medical Group,[facility] her Neuro, OPID [place] Recurrent Recurrent Problem Active 2021-08-12 Memoria falls falls 22:06:52 l (finding) (finding) Herm omid Active Problem 08/12/2021 Medical [facility] her Neuro, [place] Amnesia Amnesia Problem Active 2021-08-12 Me moria (finding) (finding) 22:06:52 l Active García Problem 08/12/2021 [facility] her Neuro, [place] Chronic Chronic Problem Active 2021-08-12 Me moria hepatitis hepatitis 22:06:52 l C C García (disorder) (disorder) Active Problem 08/12/2021 Medical [facility] her Neuro, [place] Headache Headache Problem Active 2021-08-12 Memoria (finding) (finding) 22:06:52 l Active Phenix Problem 08/12/2021 Medical [facility] her Neuro, [place] Low back Low back Problem Active 2021-08-12 Memoria pain pain 22:06:52 l (disorder) (disorder) He rmann Active Problem 08/12/2021 Medical [facility] her Neuro, [place] Myoclonus Myoclonus Problem Active 2021-08-12 Memoria (finding) (finding) 22:06:52 l Active Phenix Problem 08/12/2021 Medical [facility] her Neuro, [place] Compressio Compressi Problem Active 2021-08-12 Memoria n fracture on 22:06:52 l of fracture García thoracic of spine thoracic (disorder) spine (disorder) Active Problem 08/12/2021 Medical [facility] her Neuro, [place] Type II Type II Problem Active 2021-08-12 Me moria diabetes diabetes 22:06:52 l mellitus mellitus Abdi n uncontroll uncontroll ed ed (finding) (finding) Active Problem 08/12/2021 Medical [facility] her Neuro, [place] Diabetes Diabetes Disease Recurre [facility] mellitus, mellitus, nce Luke s type 2 type 2 Medical Center Hepatitis Hepatitis Disease Active [facility] B core B core [facility] antibody antibody Medica l positive positive Center Smoking Smoking Disease Active [facility] Esophageal Esophageal Disease Active U nivers reflux reflux [facility] Diabetes Diabetes Disease Active Unive rs mellitus mellitus [facility] Depression [facility]arijuana Marijuana Disease Active [facility] Allergies, Adverse Reactions, Alerts Allergy Allergy Status Severity Reaction(s) Onset Inactive Treating Comm ents Source Name Type Date Date Clinician NO KNOWN Allergy Active [facility] ALLERGIE [facility] NO KNOWN Drug Active Univers ALLERG[facility] Family History Family Member Diagnosis Comments Start Date Stop Date Source Natural father No Known Problem [facility] Natural father Heart disease [facility] Natural mother No Known Problem [facility] Natural mother Diabetes [facility] Natural mother Pancreatitis [facility] Natural sister Diabetes [facility] Social History Social Habit Start Date Stop Date Quantity Comments Source History of Tobacco Current Smoker Co mmon Spirit - Use [facility] Sexual orientation [facility] MD [facility] History SD[facility] Non-Med Medical Center History SDOH [facility] Places Medical Ce nter Lived History SDOH University o f Alcohol Frequency [facility] edical [place] History SDWI University o f Alcohol Std Drinks [facility] History [facility] University o f Alcohol Binge [facility] Gender identity [facility] Exposure to 2022-08-19 2022-08-29 Not sure University SARS-CoV-2 (event) 00:00:00 11:52:00 [facility] Alcohol intake 2022-06-29 2022-06-29 Ex-drinker [facility] St Tom es 00:00:00 00:00:00 (finding) Medical Center History NEOH 2022-01-29 2022-01-[address] [facility] Transport Med 00:00:00 00:00:[address] History SDWI 2022-01-29 2022-01-[address] [facility] Housing Unable to 00:00:00 00:00:00 Medical Center Pay History [facility] 2022-01-29 2022-01-[address] [facility] Housing Homeless 00:00:00 00:00:00 Medical Center Last Year Tobacco Comment 2021-07-03 2021-07-03 She states that [place] [place] 00:00:00 00:00:00 she smokes 4 Medical Cent er cigarettes daily Tobacco use and 2021-07-03 2021-07-03 Smokeless tobacco [facility] [place] exposure 00:00:00 00:00:00 non-user Medical Center Education 2020-11-03 2020-11-[address] [place] [address] 00:00:00 00:00:00 [facility] Social History 2020-08-23 2020-08-23 [facility] 20:12:29 20:12:29 Alcohol Comment 2016-01-24 2016-01-24 former Universit y of 00:00:00 00:00:00 [facility] Cigarettes smoked 2016-01-12 2016-01-[address] current (pack per 00:00:00 00:00:00 Hospita l day) - Reported Cigarette 2016-01-12 2016-01-12 [facility] pack-years 00:00:00 00:00:00 Hospital History of Social 2016-01-11 2016-01-[address] function 00:00:00 00:00:00 Hospital Sex Ass[birth year] At [birth year] Universit y of 00:00:00 00:00:00 Oniel [facility] Smoking Status Start Date Stop Date Source Smokes tobacco daily 2021-07-03 00:00:00 [facility] Medications Ordered Filled Start Stop Current [...] 08/29/22 at 1330, STAT ondansetron 0 Yes [id number] 4mg Take 1 Univers 4 mg 3-30 tablet by ity of disintegrat 00:00: mouth [place] ing tablet 00 every 4 Medica l (four) Branch hours as needed for Nausea and Vomiting (N/V). polyethylen Yes [id number] 1{packe Take 1 Univers e glycol 3-30 t} Packet by ity of 3350 00:00: mouth [place] (MIRALAX) 00 every 24 Medica l 17 gram (twenty-fo Branch powder ur) hours as needed for Constipati on. magnesium 2022- No [id number] 300mL Take 300 Univers citrate 3-30 03-31 mL by ity of solution 00:00: 04:59 mouth [place] 00 :00 now for 1 Medical dose. Branch magnesium 2021-0 Yes [id number] 400mg Take 400 Univers oxide 420 9-11 mg by ity of mg Tab 00:00: mouth [place] 00 daily. Medical Branch magnesium 2021-0 Yes [id number] 400mg Take 400 Univers oxide 420 9-11 mg by ity of mg Tab 00:00: mouth [place] 00 daily. Medical Branch magnesium 2021-0 Yes [id number] 400mg Take 400 Univers oxide 420 9-11 mg by ity of mg Tab 00:00: mouth [place] 00 daily. Medical Branch magnesium 2021-0 Yes [id number] 400mg Take 400 Univers oxide 420 9-11 [...] as needed. [place] 05 Medical Branch methocarbam 0 Yes 750mg Take 750 U nivers oL 750 mg 9-10 mg by ity of tablet 17:29: mouth as [place] needed. Medical Branch lactulose 0 Yes 10g Take 10 g Uni vers 10 gram/15 9-10 by mouth. ity of mL solution 17:29: [place] [address] Medical Branch omeprazole 0 Yes 20mg Take 20 mg U nivers 20 mg 9-10 by mouth ity of capsule 17:29: as needed. [place] [address] Medical Branch traMADoL 50 0 Yes 50mg Take 50 mg Univers mg tablet 9-10 by mouth ity of 17:29: as needed. [place] [address] Medical Branch methocarbam 0 Yes 750mg Take 750 U nivers oL 750 mg 9-10 mg by ity of tablet 17:29: mouth as [place] needed. Medical Branch lactulose 0 Yes 10g Take 10 g Uni vers 10 gram/15 9-10 by mouth. ity of mL solution 17:29: [place] [address] Medical Branch omeprazole Yes 20mg Take 20 mg U nivers 20 mg 9-10 by mouth ity of capsule 17:29: as needed. [address] Branch traMADoL 50 0 Yes 50mg Take 50 mg Univers mg tablet 9-10 by mouth ity of 17:29: as needed. [place] [address] Medical Branch methocarbam Yes 750mg Take 750 U nivers oL 750 mg 9-10 mg by ity of tablet 17:29: mouth as [place] needed. Medical Branch lactulose 0 Yes 10g Take 10 g Uni vers 10 gram/15 9-10 by mouth. ity of mL solution 17:29: [place] [address] Medical Branch omeprazole Yes 20mg Take 20 mg U nivers 20 mg 9-10 by mouth ity of capsule 17:29: as needed. [address] Branch traMADoL 50 0 Yes 50mg Take 50 mg Univers mg tablet 9-10 by mouth ity of 17:29: as needed. [place] [address] Medical Branch methocarbam 0 Yes 750mg Take 750 U nivers oL 750 mg 9-10 mg by ity of tablet 17:29: mouth as [place] needed. Medical Branch lactulose 2022-0 Yes 10g Take 10 g Uni vers 10 gram/15 9-10 by mouth. ity of mL solution 17:29: [address] Branch omeprazole 2021-0 Yes 20mg Take 20 mg U nivers 20 mg 9-10 by mouth ity of capsule 17:29: as needed. [facility] [address] Branch traMADoL 50 2021-0 Yes 50mg Take 50 mg Univers mg tablet 9-10 by mouth ity of 17:29: as needed. [address] baclofen 5 2021-0 Yes [id number] 5mg Take 1 Univers mg tablet 9-10 tablet by ity o f 00:00: mouth in [place] [address] the Medical morning Branch and 1 tablet at noon and 1 tablet in the evening. gabapentin 2021-0 Yes [id number] 300mg Take 1 Univers 300 mg 9-10 capsule by ity of capsule 00:00: mouth [place] [address] every 8 Medical (eight) Branch hours. lidocaine 5 2021-0 Yes [id number] 1{patch Apply 1 Univers % (700 9-10 } Patch to ity of mg/patch) 00:00: area[place] in [place] patch 00 the Medical morning. Branch 12 hours on, 12 hours off baclofen 5 2021-0 Yes [id number] 5mg Take 1 Univers mg tablet 9-10 tablet by ity o f 00:00: mouth in [place] [address] the Medical morning Branch and 1 tablet at noon and 1 tablet in the evening. gabapentin 2021-0 Yes [id number] 300mg Take 1 Univers 300 mg 9-10 capsule by ity of capsule 00:00: mouth [place] [address] every 8 Medical (eight) Branch hours. lidocaine 5 2021-0 Yes [id number] 1{patch Apply 1 Univers % (700 9-10 } Patch to ity of mg/patch) 00:00: [place] patch 00 the Medical morning. Branch 12 hours on, 12 hours off baclofen 5 2021-0 Yes [id number] 5mg Take 1 Univers mg tablet 9-10 tablet by ity o f 00:00: mouth in [place] [address] the Medical morning Branch and 1 tablet at noon and 1 tablet in the evening. gabapentin 2021-0 Yes [id number] 300mg Take 1 Univers 300 mg 9-10 capsule by ity of capsule 00:00: mouth [place] 00 every 8 Medical (eight) Branch hours. lidocaine 5 2021-0 Yes [id number] 1{patch Apply 1 Univers % (700 9-10 } Patch to ity of mg/patch) 00:00: [place] in [place] patch 00 the Medical morning. Branch 12 hours on, 12 hours off baclofen 5 2021-0 Yes [id number] 5mg Take 1 Univers mg tablet 9-10 tablet by ity o f 00:00: mouth in [place] 00 the Medical morning Branch and 1 tablet at noon and 1 tablet in the evening. gabapentin 2021-0 Yes [id number] 300mg Take 1 Univers 300 mg 9-10 capsule by ity of capsule 00:00: mouth [place] 00 every 8 Medical (eight) Branch hours. lidocaine 5 2021-0 Yes [id number] 1{patch Apply 1 Univers % (700 9-10 } Patch to ity of mg/patch) 00:00: area([place] in [place] patch 00 the Medical morning. Branch 12 hours on, 12 hours off lactulose 2021-0 Yes 20g Q.[id number] Take [address] (CHRONULAC) 02-01 [id number] by mouth 3 [facility]ukes 10 gram/15 11:14: 3D (three) Medi iglesia mL (15 mL) 18 times Center solution daily. gabapentin 2021-0 Yes 300mg Q.[id number] Take [address] (NEURONTIN) - [id number] mg by L ukes 300 MG 11:14: 3D mouth 3 Medical capsule 18 (three) Center times daily. hydrOXYzine 2021-0 Yes 25mg Take [address] (ATARAX) 25 -02 by mouth 3 Ning kes MG tablet [...] as Center tablet needed for Sleep. cholecalcif 202-0 Yes 2000U QD Take 2,[address] david, 9-02 Units by Lukes vitamin D3, 11:14: mouth Medic al 2,000 unit 18 daily. Center Tab lactulose 202-0 Yes 20g Q.[id number] Take [address] (CHRONULAC) - [id number] by mouth 3 Lukes 10 gram/15 11:14: 3D (three) Medi iglesia mL (15 mL) 18 times Center solution daily. gabapentin 202-0 Yes 300mg Q.[id number] Take [address] (NEURONTIN) - [id number] mg by L ukes 300 MG 11:14: 3D mouth 3 Medical capsule 18 (three) Center times daily. hydrOXYzine 2021-0 Yes 25mg Take [address] (ATARAX) 25 -02 by mouth 3 Ning kes MG tablet 11:14: (three) Medic al 18 times Center daily as needed for Itching. traMADoL 2021-0 Yes 50mg Take [address] (ULTRAM) 50 -02 by mouth Luke s mg tablet 11:14: every 6 Medic al 18 (six) Center hours as needed for Pain. methocarbam 2021-0 Yes 750mg Take [address] oL 9-02 mg by Lukes (Robaxin-75 11:14: mouth 2 Med ical 0) 750 MG 18 (two) Center tablet times daily as needed (Spasms). diphenhydrA 2021-0 Yes 25mg Take [address] MINE 9-02 by mouth Lukes (BENADRYL) 11:14: every Medica l 25 mg 18 night as Center tablet needed for Sleep. cholecalcif 2022-0 Yes 2000U QD Take 2,[address] david, 9-02 Units by Lukes vitamin D3, 11:14: mouth Medic al 2,000 unit 18 daily. Center Tab lactulose 2022-0 Yes 20g Q.[id number] Take [address] (CHRONULAC) 9- [id number] by mouth 3 Lukes 10 gram/15 11:14: 3D (three) Medi iglesia mL (15 mL) 18 times Center solution daily. gabapentin 202-0 Yes 300mg Q.[id number] Take [address] (NEURONTIN) 02-01 [id number] mg by L ukes 300 MG 11:14: 3D mouth 3 Medical capsule 18 (three) Center times daily. hydrOXYzine 2022-0 Yes 25mg Take [address] (ATARAX) 25 02 by mouth 3 Ning kes MG tablet 11:14: (three) Medic al 18 times Center daily as needed for Itching. traMADoL 2021-0 Yes 50mg Take [address] (ULTRAM) 50 02 by mouth Luke s mg tablet 11:14: every 6 Medic al 18 (six) Center hours as needed for Pain. methocarbam 2021-0 Yes 750mg Take [address] oL -02 mg by Lukes (Robaxin-75 11:14: mouth 2 Med ical 0) 750 MG 18 (two) Center tablet times daily as needed (Spasms). diphenhydrA 2021-0 Yes 25mg Take [address] MINE 02-01 by mouth Lukes (BENADRYL) 11:14: every Medica l 25 mg 18 night as Center tablet needed for Sleep. cholecalcif 2021-0 Yes 2000U QD Take 2,[address] david, - Units by Lukes vitamin D3, 11:14: mouth Medic al 2,000 unit 18 daily. Center Tab hydrocortis 2022-0 2022- No Q.5D [facility] one 02-01 09-12 rectally 2 Lukes (ANUSOL-HC) 00:00: 23:59 (two) Medi iglesia 2.5 % 00 :00 times Center rectal daily for cream 10 days. lisinopriL 2022-0 Yes 5mg QD Take [address] [facility] [address] [facility] (PRINIVIL,Z 6-16 by mouth Luke s ESTRIL) 5 00:00: daily. Medica l MG tablet 00 Center lisinopriL 2022-0 Yes 5mg QD Take [address] [facility] [address] [facility] (PRINIVIL,Z 6-16 by mouth Luke s ESTRIL) 5 00:00: daily. Medica l MG tablet 00 Center lisinopriL 2022-0 Yes 5mg QD Take 5 [...] MG 00 times Center tablet daily. propranoloL 2-0 Yes 20mg Q.5D Take 20 [...] HumuLIN 0 No BID HumuLIN 70/30 70/30 2-16 70/30 KwikPen KwikPen 00:00: KwikPen (70-30) 100 (70-30) 100 00 (70-30) UNIT/ML UNIT/ML 100 UNIT/ML glipiZIDE glipiZIDE No 1{table BID glipiZIDE ER 10 MG ER 10 MG 16 t_with_ ER 10 MG 00:00: breakfa 00 st} traMADol traMADol No 1{table QD traMADol HCl 50 MG HCl 50 MG 16 t_as_ne HCl 50 MG 00:00: eded} 00 HumuLIN HumuLIN No BID HumuLIN 70/30 70/30 16 70/30 KwikPen KwikPen 00:00: KwikPen (70-30) 100 [...] Luke s MG capsule 00:00: daily . [facility] [place] FLUoxetine Yes 40mg QD Take [address] (PROzac) 40 1-16 by mouth Luke s MG capsule 00:00: daily . [facility] [place] FLUoxetine Yes 40mg QD Take [address] (PROzac) 40 1-16 by mouth Luke s MG capsule 00:00: daily . [facility] [place] hydrocortis 2020-06 Yes 1{appli Place 1 [facility] [...] day, # 60 tab, 2 Refill(s), Pharmacy: [facility], 147.32, cm, 12/27/20 11:32:00 CDT, Height, 54.545, kg, 12/27/20 11:32:00 CDT, Weight Methocarbam 2020-0 Yes 750 mg = 1 Memoria ol 750 MG 8-23 tab, PO, l Oral Tablet 21:56: BID, PRN He rmann [Robaxin] 00 Spasms, X 30 day, # 60 tab, 2 Refill(s), Pharmacy: [facility], 147.32, cm, 12/27/20 11:32:00 CDT, Height, 54.545, kg, 12/27/20 11:32:00 CDT, Weight Methocarbam 2020-0 Yes 750 mg = 1 Memoria ol 750 MG 8-23 tab, PO, l Oral Tablet 21:56: BID, PRN He rmann [Robaxin] 00 Spasms, X 30 day, # 60 tab, 2 Refill(s), Pharmacy: [facility], 147.32, cm, 12/27/20 11:32:00 CDT, Height, 54.545, kg, 12/27/20 11:32:00 CDT, Weight Methocarbam 2020-0 Yes 750 mg = 1 Memoria ol 750 MG 8-23 tab, PO, l Oral Tablet 21:56: BID, PRN Delvis winters [Robaxin] 00 Spasms, X 30 day, # 60 tab, 2 Refill(s), Pharmacy: [facility], 147.32, cm, 12/27/20 11:32:00 CDT, Height, 54.545, kg, 12/27/20 11:32:00 CDT, Weight Hydroxyzine 2020-0 Yes 25 mg = 1 M emoria Hydrochlori 8-23 cap, PO, l de 25 MG 21:55: TID, PRN Corine nn Oral 00 Itching, X Capsule 10 day, # 30 cap, 2 Refill(s), Pharmacy: [facility], 147.32, cm, 12/27/20 11:32:00 CDT, Height, 54.545, kg, 12/27/20 11:32:00 CDT, Weight Hydroxyzine 2020-0 Yes 25 mg = 1 M emoria Hydrochlori 8-23 cap, PO, l de 25 MG 21:55: TID, PRN Corine nn Oral 00 Itching, X Capsule 10 day, # 30 cap, 2 Refill(s), Pharmacy: [facility], 147.32, cm, 12/27/20 11:32:00 CDT, Height, 54.545, kg, 12/27/20 11:32:00 CDT, Weight Hydroxyzine 2020-0 Yes 25 mg = 1 M emoria Hydrochlori 8-23 cap, PO, l de 25 MG 21:55: TID, PRN Corine nn Oral 00 Itching, X Capsule 10 day, # 30 cap, 2 Refill(s), Pharmacy: [facility], 147.32, cm, 12/27/20 11:32:00 CDT, Height, 54.545, kg, 12/27/20 11:32:00 CDT, Weight Hydroxyzine 2021-0 Yes 25 mg = 1 M emoria Hydrochlori 8-23 cap, PO, l de 25 MG 21:55: TID, PRN Corine nn Oral 00 Itching, X Capsule 10 day, # 30 cap, 2 Refill(s), Pharmacy: [facility], 147.32, cm, 12/27/20 11:32:00 CDT, Height, 54.545, kg, 12/27/20 11:32:00 CDT, Weight rifAXIMin 0 Yes 550mg Q.5D Take 1 [facility] mg Tab 8-09 tablet [facility] 00:[facility]: (550 mg Medical 00 total) by Center mouth 2 (two) times daily. FLUOXETINE Yes [id number] Take 2 U nivers 20 mg 7-28 tablets by ity of tablet 00:00: mouth once [place] daily Medical Branch FLUOXETINE Yes [id number] Take 2 U nivers 20 mg 7-28 tablets by ity of tablet 00:00: mouth once [place] daily Medical Branch FLUOXETINE Yes [id number] Take 2 U nivers 20 mg 7-28 tablets by ity of tablet 00:00: mouth once [place] daily Medical Branch FLUOXETINE Yes [id number] Take 2 U nivers 20 mg 7-28 tablets by ity of tablet 00:00: mouth once [place] daily Medical Branch simvastatin Yes 20mg QD Take [address] [facility] (ZOCOR) 20 7-25 by mouth [facility] MG tablet 14:17: nightly. Medi [place] 07 Center metFORMIN Yes 1000mg Take 1,[address] [facility] (GLUCOPHAGE 7-25 mg by [facility] ) 1000 MG 14:17: mouth 2 Medic al tablet 07 (two) Center times daily with breakfast and dinner. lactulose 0 Yes 10g Q.[id number] Take [address] [facility] (CHRONULAC) 7-25 [id number] by mouth 3 [facility] 10 gram/15 14:17: 3D (three) Medi [place] mL (15 mL) 07 times Center solution daily. gabapentin 0 Yes 300mg Q.[id number] Take [address] [facility] (NEURONTIN) 7-25 [id number] mg by L ukes 300 MG 14:17: 3D mouth 3 Medical capsule 07 (three) Center times daily. propranoloL 2020-0 Yes 20mg Q.5D Take [address] [facility] (INDERAL) 7-25 by mouth 2 Luke s 20 MG 14:17: (two) Medical tablet 07 times Center daily. FLUoxetine 2021-0 Yes 40mg QD Take [address] (PROzac) 40 7-25 by mouth Luke s MG capsule 14:17: daily . Medi [place] 07 Center diphenhydrA Yes 25mg Q.[id number] Take [address] [facility] MINE 7-25 [id number] by mouth 3 Tom es (BENADRYL) 14:17: [...] Take [address] [facility] e (NexIUM) 12-24- by mouth Luke s 40 MG 08:30: 00:00 daily. Medical capsule 42 :00 [place] esomeprazol Yes 40mg QD Take [address] [facility] (NexIUM) -25 capsule [facility] 40 MG 00:00: (40 mg Medical capsule 00 total) by Center mouth daily. traMADoL 2020- No 50mg Take [address] [facility] (ULTRAM) 50 12-24-04 tablet (50 L ukes mg tablet 00:00: 23:59 mg total) Me dical 00 :00 by mouth Center every 6 (six) hours as needed for Pain for up to 10 days. Max Daily Amount: 200 mg rifAXIMin 2020- No 550mg Q.5D Take [address] [facility] 550 mg Tab 12-21-09 tablet [facility] 00:00: 00:00 (550 mg Medical 00 :00 total) by Center mouth 2 (two) times daily. 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 SIMVASTATIN Yes [id number] 20mg TAKE 1 [facility] 20 mg 6-22 2 TABLET BY ity of tablet 00:00: MOUTH AT [address] SIMVASTATIN 2020- Yes [id number] 20mg TAKE 1 [facility] 20 mg 6-22 TABLET BY ity of tablet 00:00: MOUTH AT [address] SIMVASTATIN Yes [id number] 20mg TAKE 1 [facility] 20 mg 6-22 TABLET BY ity of tablet 00:00: MOUTH AT [address] SIMVASTATIN Yes [id number] 20mg TAKE 1 [facility] 20 mg 6-22 TABLET BY ity of tablet 00:00: MOUTH AT [address] ibuprofen Yes [id number] 600mg Take 1 [facility] 600 mg 6-20 tablet by ity of tablet 00:00: mouth [place] 00 every 6 Medical (six) Branch hours as needed for Pain (scale 4-6). diazePAM 2021-0 Yes [id number] 5mg Take 1 [facility] (VALIUM) 5 6-20 tablet by ity of mg tablet 00:00: mouth 3 [place] 00 (three) Medical times Branch daily as needed for Muscle Spasms. ibuprofen 2020-0 Yes [id number] 600mg Take 1 [facility] 600 mg 6-20 tablet by ity of tablet 00:00: mouth [place] 00 every 6 Medical (six) Branch hours as needed for Pain (scale 4-6). diazePAM 2021-0 Yes [id number] 5mg Take 1 [facility] (VALIUM) 5 6-20 tablet by ity of mg tablet 00:00: mouth 3 (three) Medical times Branch daily as needed for Muscle Spasms. ibuprofen 2020-0 Yes [id number] 600mg Take 1 [facility] 600 mg 6-20 tablet by ity of tablet 00:00: mouth [place] 00 every 6 Medical (six) Branch hours as needed for Pain (scale 4-6). diazePAM 2021-0 Yes [id number] 5mg Take 1 [facility] (VALIUM) 5 6-20 tablet by ity of mg tablet 00:00: mouth 3 (three) Medical times Branch daily as needed for Muscle Spasms. ibuprofen 2020-0 Yes [id number] 600mg Take 1 [facility] 600 mg 6-20 tablet by ity of tablet 00:00: mouth [place] 00 every 6 Medical (six) Branch hours as needed for Pain (scale 4-6). diazePAM 2021-0 Yes [id number] 5mg Take 1 [facility] (VALIUM) 5 6-20 tablet by ity of mg tablet 00:00: mouth 3 (three) Medical times Branch daily as needed for Muscle Spasms. rifaximin 2021-0 Yes 0 Memoria 550 MG Oral 6-16 Refill(s) l Tablet 15:08: Phenix [XIFAXAN] 00 rifaximin 2021-0 Yes 0 Memoria 550 MG Oral 6-16 Refill(s) l Tablet 15:08: Phenix [XIFAXAN] 00 rifaximin 2021-0 Yes 0 Memoria 550 MG Oral 6-16 Refill(s) l Tablet 15:08: Phenix [XIFAXAN] 00 rifaximin Yes 0 Memoria 550 MG Oral 6-16 Refill(s) l Tablet 15:08: García [XIFAXAN] metFORMIN [address] [facility] (GLUCOPHAGE 5-29 [facility] ) 1000 MG 00:00: Medical tablet 00 [place] metFORMIN Yes [facility] (GLUCOPHAGE 5-29 [facility] ) 1000 MG 00:00: Medical tablet 00 [place] metFORMIN Yes [facility] (GLUCOPHAGE 5-29 [facility] ) 1000 MG 00:00: Medical tablet 00 [place] hydrOXYzine 0 Yes [id number] 50mg Take 1 Univ ers 50 mg 5-29 capsule by ity of capsule 00:00: mouth as [place] 00 needed for Medical Other Branch (nausea). Indication s: nausea spironolact Yes [id number] 50mg Take 1 Univers one 50 mg 5-29 tablet by ity o f tablet 00:00: mouth [place] 00 daily. Medical Branch metFORMIN Yes [id number] 1000mg Take 1 [facility] 1,000 mg 5-29 tablet by ity of tablet 00:00: mouth 2 (two) Medical times Branch daily with meals. esomeprazol Yes [id number] 40mg Take 1 Univers e 40 mg 5-29 capsule by ity of capsule 00:00: mouth [place] 00 daily with Medical breakfast. Branch hydrOXYzine Yes [id number] 50mg Take 1 Univ ers 50 mg 5-29 capsule by ity of capsule 00:00: mouth as [place] 00 needed for Medical Other Branch (nausea). Indication s: nausea spironolact Yes [id number] 50mg Take 1 [facility] one 50 mg 5-29 tablet by ity o f tablet 00:00: mouth [place] 00 daily. Medical Branch metFORMIN Yes [id number] 1000mg Take 1 [facility] 1,000 mg 5-29 tablet by ity of tablet 00:00: mouth 2 [place] 00 (two) Medical times Branch daily with meals. esomeprazol 0 Yes [id number] 40mg Take 1 Univers e 40 mg 5-29 capsule by ity of capsule 00:00: mouth [place] 00 daily with Medical breakfast. Branch hydrOXYzine 2020-0 Yes [id number] 50mg Take 1 Univ ers 50 mg 5-29 capsule by ity of capsule 00:00: mouth as 00 needed for Medical Other Branch (nausea). Indication s: nausea spironolact Yes [id number] 50mg Take 1 [facility] one 50 mg 5-29 tablet by ity o f tablet 00:00: mouth [place] 00 daily. Medical Branch metFORMIN Yes [id number] 1000mg Take 1 [facility] 1,000 mg 5-29 tablet by ity of tablet 00:00: mouth 2 (two) Medical times Branch daily with meals. esomeprazol Yes [id number] 40mg Take 1 [facility] e 40 mg 5-29 capsule by ity of capsule 00:00: mouth [place] 00 daily with Medical breakfast. Branch hydrOXYzine Yes [id number] 50mg Take 1 Univ ers 50 mg 5-29 capsule by ity of capsule 00:00: mouth as 00 needed for Medical Other Branch (nausea). Indication s: nausea spironolact Yes [id number] 50mg Take 1 [facility] one 50 mg 5-29 tablet by ity o f tablet 00:00: mouth [place] 00 daily. Medical Branch metFORMIN Yes [id number] 1000mg Take 1 [facility] 1,000 mg 5-29 tablet by ity of tablet 00:00: mouth 2 (two) Medical times Branch daily with meals. esomeprazol Yes [id number] 40mg Take 1 [facility] e 40 mg 5-29 capsule by ity of capsule 00:00: mouth [place] 00 daily with Medical breakfast. Branch Methocarbam Yes 750 mg = 1 Memoria ol 750 MG 5-24 tab, PO, l Oral Tablet 19:24: BID, PRN He rmann [Robaxin] 00 Spasms, X 14 day, # 28 tab, 1 Refill(s), Pharmacy: [facility], 149.86, cm, 10/23/20 14:04:00 CDT, Height, 60.483, kg, 10/23/20 14:04:00 CDT, Weight Methocarbam Yes 750 mg = 1 Memoria ol 750 MG 5-24 tab, PO, l Oral Tablet 19:24: BID, PRN He rmann [Robaxin] 00 Spasms, X 14 day, # 28 tab, 1 Refill(s), Pharmacy: [facility], 149.86, cm, 10/23/20 14:04:00 CDT, Height, 60.483, kg, 10/23/20 14:04:00 CDT, Weight Methocarbam 2020-0 Yes 750 mg = 1 Memoria ol 750 MG 5-24 tab, PO, l Oral Tablet 19:24: BID, PRN He rmann [Robaxin] 00 Spasms, X 14 day, # 28 tab, 1 Refill(s), Pharmacy: [facility], 149.86, cm, 10/23/20 14:04:00 CDT, Height, 60.483, kg, 10/23/20 14:04:00 CDT, Weight Methocarbam 2020-0 Yes 750 mg = 1 Memoria ol 750 MG 5-24 tab, PO, l Oral Tablet 19:24: BID, PRN He rmann [Robaxin] 00 Spasms, X 14 day, # 28 tab, 1 Refill(s), Pharmacy: [facility], 149.86, cm, 10/23/20 14:04:00 CDT, Height, 60.483, kg, 10/23/20 14:04:00 CDT, Weight furosemide 2020-0 Yes [id number] 40mg Take 1 U nivers (LASIX) 40 5-14 tablet by ity of mg tablet 00:00: mouth [place] 00 every Medical morning Branch and evening. furosemide 2020-0 Yes [id number] 40mg Take 1 U nivers (LASIX) 40 5-14 tablet by ity of mg tablet 00:00: mouth [place] 00 every Medical morning Branch and evening. furosemide 2020-0 Yes [id number] 40mg Take 1 U nivers (LASIX) 40 5-14 tablet by ity of mg tablet 00:00: mouth [place] 00 every Medical morning Branch and evening. furosemide 2020-0 Yes [id number] 40mg Take 1 U nivers (LASIX) 40 5-14 tablet by ity of mg tablet 00:00: mouth [place] 00 every Medical morning Branch and evening. furosemide 2020-0 Yes [id number] 40mg Take 1 U nivers (LASIX) 40 5-14 tablet by ity of mg tablet 00:00: mouth [place] 00 every Medical morning Branch and evening. simvastatin Yes 1{tbl} Take [address] (ZOCOR) 20 4-10 tablet by Luke s MG tablet 00:00: mouth. Medica [address] simvastatin Yes 1{tbl} Take [address] (ZOCOR) 20 4-10 tablet by Luke s MG tablet 00:00: mouth. Medica [address] simvastatin Yes 1{tbl} Take [address] (ZOCOR) 20 4-10 tablet by Luke s MG tablet 00:00: mouth. Medica l [address] [place] [address] buPROPion Yes 100 mg = 1 Me [...] 20 tab, 0 Refill(s) buPROPion 2020-0 Yes [id number] 100mg Take 1 U nivers 100 mg 3-27 tablet by ity of tablet 00:00: mouth [place] (two) Medical times Branch daily. propranoloL 2020-0 Yes [id number] 20mg Take 1 [facility] 20 mg 3-27 tablet by ity of tablet 00:00: mouth [place] (two) Medical times Branch daily. buPROPion 2020-0 Yes [id number] 100mg Take 1 U nivers 100 mg 3-27 tablet by ity of tablet 00:00: mouth (two) Medical times Branch daily. propranoloL 2020-0 Yes [id number] 20mg Take 1 [facility] 20 mg 3-27 tablet by ity of tablet 00:00: mouth [place] (two) Medical times Branch daily. buPROPion 2020-0 Yes [id number] 100mg Take 1 U nivers 100 mg 3-27 tablet by ity of tablet 00:00: mouth [place] (two) Medical times Branch daily. propranoloL 2020-0 Yes [id number] 20mg Take 1 [facility] 20 mg 3-27 tablet by ity of tablet 00:00: mouth [place] (two) Medical times Branch daily. buPROPion 2020-0 Yes [id number] 100mg Take 1 U nivers 100 mg 3-27 tablet by ity of tablet 00:00: mouth (two) Medical times Branch daily. propranoloL 2020-0 Yes [id number] 20mg Take 1 [facility] 20 mg 3-27 tablet by ity of tablet 00:00: mouth [place] (two) Medical times Branch daily. buPROPion 2020-0 Yes [id number] 100mg Take 1 U nivers 100 mg 3-27 tablet by ity of tablet 00:00: mouth [place] (two) Medical times Branch daily. propranoloL 2020-0 Yes [id number] 20mg Take 1 [facility] 20 mg 3-27 tablet by ity of tablet 00:00: mouth [place] 00 (two) Medical times Branch daily. Nexium [...] 3-24 TID, 0 l 19:30: Refill(s) buPROPion Yes Oral for [facility] (WELLBUTRIN 3-12 90 [facility] ) 100 MG 00:00: Medical tablet 00 [place] buPROPion Yes Oral for [facility] (WELLBUTRIN 3-12 90 [facility] ) 100 MG 00:00: Medical tablet 00 [place] buPROPion Yes Oral for [facility] (WELLBUTRIN 3-12 90 [facility] ) 100 MG 00:00: Medical tablet [place] simvastatin Yes 20 mg = 1 M [...] emoria 2-25 Daily, 0 l 19:45: Refill(s) Phenix 00 propranolol Yes 20 mg = 1 [...] Amylases Yes 3 cap, PO, Mem oria [id number] UNT / 2-25 TID, 0 l Endopeptida 19:45: Refill(s) H ermann ses [id number] UNT / Lipase [id number] UNT Enteric Coated Capsule [Creon 12] simvastatin Yes 20 mg = 1 M emoria 20 mg oral 2-25 tab, PO, l tablet 19:45: Bedtime, # Corine nn 00 90 tab, 1 Refill(s) Metformin Yes 1,000 mg, Mem oria 2-25 PO, BID, 0 l 19:45: Refill(s) Phenix 00 gabapentin Yes 300 mg = 1 [...] tab, PO, l tablet 19:45: Daily, # Phenix 00 90 tab, 0 Refill(s) Diphenhydra Yes [...] mL 2-25 Refill(s) l oral and 19:45: Phenix rectal 00 liquid Amylases Yes 3 cap, PO, Mem oria [id number] UNT / 2-25 TID, 0 l Endopeptida 19:45: Refill(s) H ermann ses [id number] 00 UNT / Lipase [id number] UNT Enteric Coated Capsule [Creon 12] simvastatin Yes 20 mg = 1 M emoria 20 mg oral 2-25 tab, PO, l tablet 19:45: Bedtime, # Corine nn 00 90 tab, 1 Refill(s) Metformin Yes 1,000 mg, Mem oria 2-25 PO, BID, 0 l 19:45: Refill(s) Phenix 00 gabapentin Yes 300 mg = 1 [...] emoria 2-25 Daily, 0 l 19:45: Refill(s) Phenix 00 propranolol Yes 20 mg = 1 [...] mL 2-25 Refill(s) l oral and 19:45: Phenix rectal 00 liquid Amylases Yes 3 cap, PO, Mem oria [id number] UNT / 2-25 TID, 0 l Endopeptida 19:45: Refill(s) H ermann ses [id number] 00 UNT / Lipase [id number] UNT Enteric Coated Capsule [Creon 12] simvastatin Yes 20 mg = 1 M emoria 20 mg oral 2-25 tab, PO, l tablet 19:45: Bedtime, # Corine nn 00 90 tab, 1 Refill(s) Metformin Yes 1,000 mg, Mem oria 2-25 PO, BID, 0 l 19:45: Refill(s) Phenix 00 gabapentin Yes 300 mg = 1 [...] Amylases Yes 3 cap, PO, Mem oria [id number] UNT / 2-25 TID, 0 l Endopeptida 19:45: Refill(s) H ermann ses [id number] 00 UNT / Lipase [id number] UNT Enteric Coated Capsule [Creon 12] lipase-prot Yes [id number] 1{capsu Take 1 [facility] ease-amylas 9-23 le} capsule by it y of e (CREON) 00:00: mouth 3 [place] 12,000-38,0 00 (three) Medic al 00 -60,000 times Branch unit daily with capsule meals. lipase-prot Yes [id number] 1{capsu Take 1 [facility] ease-amylas 9-23 le} capsule by it y of e (CREON) 00:00: mouth 3 [place] 12,000-38,0 00 (three) Medic al 00 -60,000 times Branch unit daily with capsule meals. lipase-prot Yes [id number] 1{capsu Take 1 [facility] ease-amylas 9-23 le} capsule by it y of e (CREON) 00:00: mouth 3 [place] 12,000-38,0 00 (three) Medic al 00 -60,000 times Branch unit daily with capsule meals. lipase-prot Yes [id number] 1{capsu Take 1 [facility] ease-amylas 9-23 le} capsule by it y of e (CREON) 00:00: mouth 3 [place] 12,000-38,0 00 (three) Medic al 00 -60,000 times Branch unit daily with capsule meals. lipase-prot Yes [id number] 1{capsu Take 1 [facility] ease-amylas 9-23 le} capsule by it y of e (CREON) 00:00: mouth 3 [place] 12,000-38,0 00 (three) Medic al 00 -60,000 times Branch unit daily with capsule meals. gabapentin Yes 600mg QD Take 600 Me thodi (NEURONTIN) 8-[address] 600 MG 16:59: mouth [facility] tablet 10 nightly. l methocarbam 0 Yes 750mg Q.5D Take 750 M ethodi ol 8-[address] (ROBAXIN) 16:59: mouth 2 Hospi ta 750 MG 10 (two) l tablet times a day. insulin NPH 0 Yes 40U Q.5D Inject 40 M ethodi and regular 8-[address] human 16:59: under the Hospita (HumuLIN 10 skin 2 l 70/30) 100 (two) unit/mL times a (70-30) day with injection meals. lactulose 0 Yes 10g Q.[id number] Take 10 g Methodi 10 gram/15 8-[id number] mouth [address] mL solution 16:59: 3D (three) Hos iban 10 times a l day. omeprazole 0 Yes 20mg QD Take 20 mg M ethodi (PriLOSEC) 8-[address] 20 MG 16:59: daily. Hospita capsule 10 l multivitami 2015-0 Yes 1{tbl} QD Take 1 Me thodi n 8-[address] (THERAGRAN) 16:59: mouth Hospi ta tablet 10 daily. l ibuprofen 0 Yes 800mg Q6H Take 800 Met hodi [...] 16:59: mouth [facility] capsule 10 daily. l metFORMIN 2016-0 Yes 1000mg [...] l tablet times a day. insulin NPH 0 Yes 40U Q.5D Inject 40 M ethodi and regular 8-[address] human 11:59: under the Hospita (HumuLIN 10 skin 2 l 70/30) 100 (two) unit/mL times a (70-30) day with injection meals. lactulose 2016-0 Yes 10g Q.53240685 Take 10 g Methodi 10 gram/15 8-[id number] mouth [address] mL solution 11:59: 3D (three) Hos iban 10 times a l day. omeprazole 2015-0 Yes 20mg QD Take 20 mg M ethodi (PriLOSEC) 8-[address] 20 MG 11:59: daily. Hospita capsule 10 l multivitami 0 Yes 1{tbl} QD Take 1 Me thodi n 8-[address] (THERAGRAN) 11:59: mouth Hospi ta tablet 10 daily. l ibuprofen 0 Yes 800mg Q6H Take 800 Met hodi (ADVIL,MOTR 8-[address] IN) 800 MG 11:59: mouth Hospit a tablet 10 every 6 l (six) hours as needed for mild pain. traMADol 0 Yes 50mg Q6H Take 50 mg Met hodi (ULTRAM) 50 8-[address] mg tablet 11:59: every 6 Hospi ta 10 (six) l hours as needed for moderate pain. UNKNOWN TO Yes 1{tbl} QD Take 1 Met hodi PATIENT 8-[address] 11:59: mouth [facility]ospita 10 nightly. l Cholestero l Medication insulin NPH 2016-0 Yes 40U Q.5D Inject 40 M ethodi and regular 8-[address] human 11:59: under the Hospita (HumuLIN 10 skin 2 l 70/30) 100 (two) unit/mL times a (70-30) day with injection meals. lactulose 2016-0 Yes 10g Q.[id number] Take 10 g Methodi 10 gram/15 8-14 [id number] mouth [address] mL solution 11:59: [...] with injection meals. lactulose 2016-0 Yes 10g Q.[id number] Take 10 g Methodi 10 gram/15 8-14 [id number] mouth [address] mL solution 11:59: [...] l Cholestero l Medication FLUoxetine FLUoxetine No FLUoxetine HCl 40 MG [...] 5 MG t} 5 MG Lactulose Lactulose 3- No 15{ml_a QD Lactulose 10 GM/15ML 10 [...] Xifaxan 550 2021- No Xifaxan MG MG 05-17 550 MG 00:00 :00 Methocarbam Methocarbam No Methocarba ol 750 MG ol 750 MG 05-12 mol 750 MG 00:00 :00 Methocarbam Methocarbam 2021- No Methocarba ol 750 MG ol 750 MG 05-12 mol 750 MG 00:00 :00 Immunizations Ordered Filled Date Status Comments Source Immunization Name Immunization Name Flucelvax - Flucelvax - 2021-08-15 Completed [facility] - multidose vial multidose vial 14:35:00 [facility] Flucelvax - Flucelvax - 2021-08-15 Completed [facility] t - multidose vial multidose vial 14:35:00 [facility] Flucelvax - Flucelvax - 2021-08-15 Completed [facility] Spiri t - multidose vial multidose vial 14:35:00 [facility] Flucelvax - Flucelvax - 2021-08-15 Completed Common Spiri t - multidose vial multidose vial 14:35:00 [facility] Flucelvax - Flucelvax - 2021-08-15 Completed Common Spiri t - multidose vial multidose vial 14:35:00 [facility] Flucelvax - Flucelvax - 2021-08-15 Completed Common Spiri t - multidose vial multidose vial 14:35:00 [facility] Flucelvax - Flucelvax - 2021-08-15 Completed Common Spiri t - multidose vial multidose vial 14:35:00 [facility] Flucelvax - Flucelvax - 2021-08-15 Completed Common Spiri t - multidose vial multidose vial 14:35:00 [facility] Flucelvax - Flucelvax - 2021-08-15 Completed Common Spiri t - multidose vial multidose vial 14:35:00 [facility] Flucelvax - Flucelvax - 2021-08-15 Completed Common Spiri t - multidose vial multidose vial 14:35:00 [facility] Flucelvax - Flucelvax - 2021-08-15 Completed Common Spiri t - multidose vial multidose vial 14:35:00 [facility] Flucelvax - Flucelvax - 2021-08-15 Completed Common Spiri t - multidose vial multidose vial 14:35:00 [facility] Flucelvax - Flucelvax - 2021-08-15 Completed Common Spiri t - multidose vial multidose vial 14:35:00 [facility] Flucelvax - Flucelvax - 2021-08-15 Completed Common Spiri t - multidose vial multidose vial 14:35:00 [facility] Flucelvax - Flucelvax - 2021-08-15 Completed Common Spiri t - multidose vial multidose vial 14:35:00 [facility] Flucelvax - Flucelvax - 2021-08-15 Completed Common Spiri t - multidose vial multidose vial 14:35:00 [facility] Flucelvax - Flucelvax - 2021-08-15 Completed Common Spiri t - multidose vial multidose vial 14:35:00 [facility] Flucelvax - Flucelvax - 2021-08-15 Completed Common Spiri t - multidose vial multidose vial 14:35:00 [facility] Flucelvax - Flucelvax - 2021-08-15 Completed Common Spiri t - multidose vial multidose vial 14:35:00 [facility] Flucelvax - Flucelvax - 2021-08-15 Completed Common Spiri t - multidose vial multidose vial 14:35:00 [facility] SARS-CoV-2 2020-08-12 Completed Univer sity of Vaccination 00:00:00 [place] [facility] SARS-COV-2 COVID-19 2020-08-12 Completed Unive rsity of FELIZ/J&J VACCINE 00:00:00 [facility] SARS-COV-2 COVID-19 2020-08-12 Completed Unive rsity of FELIZ/J&J VACCINE 00:00:00 [facility] SARS-COV-2 COVID-19 2020-08-12 Completed Unive rsity of FELIZ/J&J VACCINE 00:00:00 [facility] Influenza Virus 2016-02-15 Completed Universit y of Vaccine Quad IM 3+ 00:00:00 [facility] Influenza Virus 2016-02-15 Completed Universit y of Vaccine Quad IM 3+ 00:00:00 [facility] Influenza Virus 2016-02-15 Completed Universit y of Vaccine Quad IM 3+ 00:00:00 [facility] Pneumococcal 13 2016-01-26 Completed [facility]it y of Conjugate, PCV13 00:00:00 [facility] dical (Prevnar 13) Branch Pneumococcal 13 2016-01-26 Completed [facility]it [facility] of Conjugate, PCV13 00:00:00 [facility] dical (Prevnar 13) Branch Pneumococcal 13 2016-01-26 Completed Universit y of Conjugate, PCV13 00:00:00 [facility] dical (Prevnar 13) Branch Feliz SARS-CoV-2 Unknown Completed Univer sity of Vaccination [place] [facility] Feliz SARS-CoV-2 Unknown Completed Univer sity of Vaccination [facility] Pneumococcal 13 Unknown Completed Universit y of Conjugate, PCV13 [facility] dical (Prevnar 13) Branch Influenza Virus Unknown Completed Universit y of Vaccine Quad IM 3+ [facility] SARS-COV-2 COVID-19 Unknown Completed Unive rsity of FELIZ/J&J VACCINE [facility] Pneumococcal 13 Unknown Completed Universit y of Conjugate, PCV13 [facility] dical (Prevnar 13) Branch Influenza Virus Unknown Completed Universit y of Vaccine Quad IM 3+ [facility] SARS-COV-2 COVID-19 Unknown Completed Unive rsity of FELIZ/J&J VACCINE [facility] Vital Signs Vital Name Observation Time Observation Value Comments Source HEIGHT 2022-01-28 17:01:00 160 cm WEIGHT 2022-01-28 17:01:00 59.875 kg Systolic blood 2022-08-29 20:30:00 145 mm[Hg] Univer sity of pressure [facility] Diastolic blood 2022-08-29 20:30:00 88 mm[Hg] Unive rsity of [facility] Heart rate 2022-08-29 20:30:00 75 /min Universi [facility] Respiratory rate 2022-08-29 20:30:00 23 /min [facility] Oxygen saturation in 2022-08-29 20:30:00 99 /min [facility] Arterial blood by [facility] Pulse oximetry Branch Body temperature 2022-08-29 16:53:00 37.39 Mihaela [facility] height 2022-05-22 11:40:00 57.5 [in_i] [facility] weight 2022-05-22 11:40:00 132.6 [lb_av] [facility] temperature 2022-05-22 11:40:00 97.5 [degF] [facility] bmi 2022-05-22 11:40:00 28.19 kg/m2 [facility] oximetry 2022-05-22 11:40:00 94 % [facility] respiratory rate 2022-05-22 11:40:00 16 /min Comm on [facility] blood pressure 2022-05-22 11:40:00 123 mm[Hg] Common [facility] - systolic [facility] blood pressure 2022-05-22 11:40:00 78 mm[Hg] Common [facility] - diastolic [facility] height 2022-02-20 13:20:00 57.5 [in_i] Common [facility] weight 2022-02-20 13:20:00 132 [lb_av] [facility] temperature 2022-02-20 13:20:00 98.5 [degF] Common [facility] Center bmi 2022-02-20 13:20:00 28.07 kg/m2 Common [facility] oximetry 2022-02-20 13:20:00 96 % [facility] respiratory rate 2022-02-20 13:20:00 16 /min Comm on [facility] blood pressure 2022-02-20 13:20:00 126 mm[Hg] Common [facility] - systolic [facility] blood pressure 2022-02-20 13:20:00 72 mm[Hg] Common [facility] - diastolic [facility] HEIGHT 2022-01-28 17:01:00 160 cm WEIGHT 2022-01-28 17:01:00 59.875 kg height 2021-11-15 10:00:00 58 [in_i] [facility] weight 2021-11-15 10:00:00 134 [lb_av] [facility] temperature 2021-11-15 10:00:00 97.4 [degF] [facility] bmi 2021-11-15 10:00:00 28 kg/m2 [facility] oximetry 2021-11-15 10:00:00 97 % [facility] respiratory rate 2021-11-15 10:00:00 16 /min Comm on [facility] blood pressure 2021-11-15 10:00:00 126 mm[Hg] Common [facility] - systolic [facility] blood pressure 2021-11-15 10:00:00 70 mm[Hg] Common [facility] - diastolic [facility] height 2021-10-12 16:20:00 58 [in_i] Common [facility] weight 2021-10-12 16:20:00 128.8 [lb_av] Common [facility] temperature 2021-10-12 16:20:00 98.3 [degF] [facility] bmi 2021-10-12 16:20:00 26.92 kg/m2 [facility] oximetry 2021-10-12 16:20:00 96 % [facility] respiratory rate 2021-10-12 16:20:00 16 /min Comm on [facility] blood pressure 2021-10-12 16:20:00 128 mm[Hg] Common [facility] - systolic [facility] blood pressure 2021-10-12 16:20:00 62 mm[Hg] Common [facility] - diastolic [facility] HEIGHT 2021-10-02 10:40:00 147.3 cm WEIGHT 2021-10-02 10:40:00 60.238 kg HEIGHT 2021-10-02 10:40:00 147.3 cm WEIGHT 2021-10-02 10:40:00 60.238 kg height 2021-09-11 15:00:00 58 [in_i] [facility] weight 2021-09-11 15:00:00 135.8 [lb_av] [facility] temperature 2021-09-11 15:00:00 97.5 [degF] Common [facility] bmi 2021-09-11 15:00:00 28.38 kg/m2 [facility] oximetry 2021-09-11 15:00:00 98 % [facility] respiratory rate 2021-09-11 15:00:00 16 /min Comm on [facility] blood pressure 2021-09-11 15:00:00 121 mm[Hg] Common [facility] - systolic [facility] blood pressure 2021-09-11 15:00:00 67 mm[Hg] Common [facility] - diastolic [facility] HEIGHT 2021-09-04 22:09:00 149.9 cm WEIGHT 2021-09-04 22:09:00 58.968 kg HEIGHT 2021-09-04 22:09:00 149.9 cm WEIGHT 2021-09-04 22:09:00 58.968 kg height 2021-08-15 13:00:00 58 [in_i] Common [facility] weight 2021-08-15 13:00:00 136.2 [lb_av] [facility] temperature 2021-08-15 13:00:00 97.8 [degF] [facility] bmi 2021-08-15 13:00:00 28.46 kg/m2 [facility] oximetry 2021-08-15 13:00:00 95 % [facility] respiratory rate 2021-08-15 13:00:00 16 /min Comm on [facility] blood pressure 2021-08-15 13:00:00 126 mm[Hg] Common [facility] - systolic [facility] blood pressure 2021-08-15 13:00:00 67 mm[Hg] Common [facility] - diastolic [facility] height 2021-08-15 13:40:00 58 [in_i] Common [facility] weight 2021-08-15 13:40:00 136.2 [lb_av] [facility] temperature 2021-08-15 13:40:00 97.8 [degF] [facility] bmi 2021-08-15 13:40:00 28.46 kg/m2 [facility] blood pressure 2021-08-15 13:40:00 126 mm[Hg] Common [facility] - systolic [facility] blood pressure 2021-08-15 13:40:00 67 mm[Hg] [facility] HEIGHT 2021-08-12 16:10:00 149.9 cm WEIGHT 2021-08-12 16:10:00 61.5 kg HEIGHT 2021-08-12 16:10:00 149.9 cm WEIGHT 2021-08-12 16:10:00 61.5 kg height 2021-07-18 10:40:00 58 [in_i] [facility] weight 2021-07-18 10:40:00 129.4 [lb_av] Common [facility] temperature 2021-07-18 10:40:00 97.2 [degF] Common [facility] - [facility] bmi 2021-07-18 10:40:00 27.04 kg/m2 Common [facility] [place] oximetry 2021-07-18 10:40:00 97 % [facility] [place] respiratory rate 2021-07-18 10:40:00 18 /min Comm on [facility] blood pressure 2021-07-18 10:40:00 142 mm[Hg] [facility] - systolic [facility] blood pressure 2021-07-18 10:40:00 84 mm[Hg] Common [facility] - diastolic [facility] HEIGHT 2021-07-03 08:58:00 147.3 cm WEIGHT 2021-07-03 [...] blood 2022-06-29 19:30:00 120 mm[Hg] [facility] Diastolic blood 2022-06-29 19:30:00 92 mm[Hg] [facility] Heart rate 2022-06-29 19:30:00 87 /min [facility] Respiratory rate 2022-06-29 19:30:00 14 /min [facility] Oxygen saturation in 2022-06-29 19:30:00 97 /min [facility] Arterial blood by Medical Ce nter Pulse oximetry Body temperature 2022-06-29 14:50:00 36.94 Mihaela [facility] Body height 2022-06-29 14:50:00 149.9 cm [facility] Body weight 2022-06-29 14:50:00 61.236 kg [facility] BMI 2022-06-29 14:50:00 27.27 kg/m2 [facility] Systolic (mm Hg) 2021-06-29 20:55:00 José Miguel [facility] Diastolic (mm Hg) 2021-06-29 20:55:00 Mem orial García Heart Rate 2021-06-29 20:55:00 [facility] Respitory Rate 2021-06-29 20:55:00 Memori al García Height 2021-06-29 20:55:00 147.32 cm [facility] Weight 2021-06-29 20:55:00 [facility] BMI Calculated 2021-06-29 20:55:00 Memori al [facility] Systolic (mm Hg) 2020-12-27 16:28:00 José Miguel [facility] Diastolic (mm Hg) 2020-12-27 16:28:00 Mem [facility] Heart Rate 2020-12-27 16:28:00 [facility] Respitory Rate 2020-12-27 16:28:00 Memori al [facility] Height 2020-12-27 16:28:00 147.32 [facility] 2020-12-27 16:28:00 [facility] García BMI Calculated 2020-12-27 16:28:00 [facility] Systolic blood 2020 11:18:00 129 mm[Hg] [facility] Diastolic blood 2020 11:18:00 68 mm[Hg] [facility] Body temperature 2020 11:18:00 36.39 Mihaela [facility] Respiratory rate 2020 11:18:00 86 /min [facility] Oxygen saturation in 2020 11:18:00 99 /min [facility] Arterial blood by Medical Ce [facility]ter Pulse oximetry Heart rate 2020 07:22:00 93 /min [facility] Body height 2020-12-21 14:23:00 147.3 cm [facility] Body weight 2020-12-21 14:23:00 57.153 kg [facility] BMI 2020-12-21 14:23:00 26.33 kg/m2 [facility] Systolic (mm Hg) 2020-11-15 15:02:00 José Miguel [facility] Diastolic (mm Hg) 2020-11-15 15:02:00 Mem [facility] Heart Rate 2020-11-15 15:02:00 [facility] Respitory Rate 2020-11-15 15:02:00 Memori al [facility] Height 2020-11-15 15:02:00 147.32 cm [facility] Weight 2020-11-15 15:02:00 [facility] BMI Calculated 2020-11-15 15:02:00 Mem[facility] Systolic (mm Hg) 2020-10-23 19:04:00 José Miguel [facility] Diastolic (mm Hg) 2020-10-23 19:04:00 Mem o[facility] Heart Rate 2020-10-23 19:04:00 [facility] Height 2020-10-23 19:04:00 149.86 cm [facility] Weight 2020-10-23 19:04:00 [facility] BMI Calculated 2020-10-23 19:04:00 [facility] Height 2020-08-28 16:36:00 147.32 cm [facility] Weight 2020-08-28 16:36:00 [facility] BMI Calculated 2020-08-28 16:36:00 [facility] Systolic (mm Hg) 2020-08-28 16:36:00 José Miguel [facility] Diastolic (mm Hg) 2020-08-28 16:36:00 Mem [facility] Heart Rate 2020-08-28 16:36:00 [facility] Systolic (mm Hg) 2020-08-23 19:19:00 José Miguel rial [facility] Diastolic (mm Hg) 2020-08-23 19:19:00 [facility] Heart Rate 2020-08-23 19:19:00 [facility] Respitory Rate 2020-08-23 19:19:00 Memori al [facility] Height 2020-08-23 19:19:00 147.32 cm [facility] Weight 2020-08-23 19:19:00 [facility] BMI Calculated 2020-08-23 19:19:00 Memori al Garc[facility] Procedures Procedure Date / Time Performing Source Performed Clinician AC PANEL 21 + LACTIC ACID 2022-08-29 Khoi Kwan sity of 17:40:00 [facility] LIPASE 2022-08-29 Khoi Kwan Boyd of 17:38:00 [facility] COMP. METABOLIC PANEL (79817) 2022-08-29 Khoi Kwan iversity of 17:38:00 [facility] CBC WITH DIFF 2022-08-29 Khoi Kwan Boyd of 17:38:00 [facility] URINALYSIS 2022-08-29 Khoi Kwan Boyd of 17:38:00 [facility] URINE DRUG (IMMUNOASSAY) - 2022-08-29 Khoi Kwan [facility] rsity of COMPREHENSIVE DRUG SCREEN W/O 17:38:00 Te [facility] CONSENT/REFUSAL FOR DIAGNOSIS AND 2022-08-29 [facility] 16:44:59 Unassigned, No [facility] COMPREHENSIVE METABOLIC PANEL 2022-06-29 [facility]iddiqui [facility] 17:51:00 [facility] CBC W/PLT COUNT & AUTO 2022-06-[address] [facility] DIFFERENTIAL 16:28:00 [facility] PT/APTT 2022-06-[address] [facility] 16:28:00 [facility] CBC W/PLT COUNT & AUTO 2022-06-[address] [facility] DIFFERENTIAL 16:28:00 [facility] XR FOOT 3 VIEWS LEFT 2022-02-[address] [facility] 19:25:00 [facility] BASIC METABOLIC PANEL 2022-02-[address] [facility] 18:46:00 [facility] CBC W/PLT COUNT & AUTO 2022-02-[address] [facility] DIFFERENTIAL 18:46:00 [facility] B-TYPE NATRIURETIC FACTOR (BNP) 2022-02-[address] [facility] 18:46:00 [facility] HIGH SENSITIVITY TROPONIN I 2022-02-[address] [facility] 18:46:00 [facility] LIPASE 2022-02-[address] [facility] 18:46:00 [facility] HEPATIC FUNCTION PANEL 2022-02-[address] [facility] 18:46:00 [facility] PT/APTT 2022-02-[address] [facility] 18:46:00 [facility] Center PROTHROMBIN TIME/INR 2022-02-[address] [facility] 18:46:00 [facility] CBC W/PLT COUNT & AUTO 2022-02-[address] DIFFERENTIAL 18:46:00 [facility] ECG 12-LEAD 2022-02-[address] [facility] 18:39:22 [facility] EKG-SCANNED 2022-02-[address] [facility] 00:00:00 Scanning [facility] CBC W/PLT COUNT & AUTO 2022-02-01 Adio, Titilola R [facility] DIFFERENTIAL 04:09:00 [facility] HEMOGLOBIN A1C 2022-02-01 Adio, Titilola R [facility] 04:09:00 [facility] CBC W/PLT COUNT & AUTO 2022-02-01 Adio, Titilola R [facility] DIFFERENTIAL 04:09:00 [facility] POCT-GLUCOSE METER 2022-01-31 Adio, Titilola R [facility] 22:09:00 [facility] CBC W/PLT COUNT & AUTO 2022-01-31 Adio, Titilola R [facility] DIFFERENTIAL 15:45:00 [facility] CBC W/PLT COUNT & AUTO 2022-01-31 Adio, Titilola R [facility] DIFFERENTIAL 15:45:00 [facility] REPORT OF PROCEDURE - ENDOSCOPY 2022-01-[address] [facility] URL 10:59:58 [facility] REPORT OF PROCEDURE - ENDOSCOPY 2022-01-[address] [facility] URL 10:50:17 [facility] EGD, WITH VARICEAL BANDING 2022-01-[address] [facility] 09:53:00 [facility] SIGMOIDOSCOPY 2022-01-[address] [facility] 09:53:00 [facility] POCT-GLUCOSE METER 2022-01-31 Adio, Titilola R [facility] 09:52:00 [facility] US ABDOMEN LIMITED 2022-01-[address] [facility] 15:44:00 [facility] CBC W/PLT COUNT & AUTO 2022-01-30 Ali, Hiba Ricky [facility] DIFFER[facility] 04:56:00 [facility] COMPREHENSIVE METABOLIC PANEL 2022-01-30 [address] [facility] 04:56:00 [facility] PROTHROMBIN TIME/INR 2022-01-[address] [facility] 04:56:00 [facility] CBC W/PLT COUNT & AUTO 2022-01-30 Timothy, Leonardo García [facility] DIFFER[facility] 04:56:00 [facility] BLOOD CULTURE 2022-01-[address] [facility] 20:03:00 [facility] BLOOD CULTURE 2022-01-29 Dadlani, Apaar [facility] 19:50:00 [facility] XR CHEST 1 VIEW PORTABLE / BEDSIDE 2022-01-29 Claudi[address]quelyn r [facility] 17:23:00 [facility] CTA ABDOMEN & PELVIS 2022-01-[address] [facility] 13:20:00 [facility] BASIC METABOLIC PANEL 2022-01-[address] [facility] 04:44:00 [facility] CBC W/PLT COUNT & AUTO 2022-01-[address] [facility] DIFFERENTIAL 04:44:00 [facility] IRON, TIBC, % SAT. (WITHOUT 2022-01-[address] [facility] FERRITIN) 04:44:00 [facility] FERRITIN 2022-01-[address] [facility] 04:44:00 [facility] VITAMIN B12 2022-01-[address] [facility] 04:44:00 [facility] CBC W/PLT COUNT & AUTO 2022-01-[address] [facility] DIFFER[facility] 04:44:00 [facility] SARS-COV2/RT-PCR ([facility]) 2022-01-[address] [facility] 20:39:00 [facility] LACTIC ACID, VENOUS 2022-01-[address] [facility] 20:38:00 [facility] BLOOD CULTURE 2022-01-[address] [facility] 17:22:00 [facility] CBC W/PLT COUNT & AUTO 2022-01-[address] [facility] DIFFERENTIAL 17:20:00 [facility] LACTIC ACID, VENOUS 2022-01-[address] [facility] 17:20:00 [facility] COMPREHENSIVE METABOLIC PANEL 2022-01-[address] [facility] 17:20:00 [facility] PROTHROMBIN TIME/INR 2022-01-[address] [facility] 17:20:00 [facility] APTT 2022-01-[address] [facility] 17:20:00 [facility] CBC W/PLT COUNT & AUTO 2022-01-[address] [facility] DIFFERENTIAL 17:20:00 [facility] PREPARE LEUKO-REDUCED PLATELETS 2020 Jay Jay Marcelinosascha [facility] 23:54:00 [facility] PREPARE LEUKO-REDUCED RBC [address] [facility] 14:17:00 [facility] CBC W/PLT COUNT & AUTO 2020 Civunconnera, [facility] DIFFERENTIAL 05:50:00 [facility] COMPREHENSIVE METABOLIC PANEL 2020 Savannahuneric, [facility] 05:50:00 [facility] PROTHROMBIN TIME/INR 2020 Civunigunta, [facility] 05:50:00 [facility] POCT-GLUCOSE METER 2020-12-23 Savannahunigunta, [facility] 21:16:00 [facility] POCT-GLUCOSE METER 2020-12-[address] [facility] 16:20:00 [facility] REPORT OF PROCEDURE - ENDOSCOPY 2020-12-[address] [facility] URL 15:42:28 [facility] REPORT OF PROCEDURE - ENDOSCOPY 2020-12-[address] [facility] URL 15:19:48 [facility] COLONOSCOPY 2020-12-[address] [facility] 13:35:00 [facility] ESOPHAGOGASTRODUODENOSCOPY 2020-12-23 Hernando Spencer [facility] (EGD),REMOVAL FOREIGN BODY 13:35:00 [facility] TRANSFUSE LEUKO-REDUCED PLATELETS 2020-12-[address] [facility] 12:42:33 [facility] TYPE AND SCREEN, AUTOMATED 2020-12-23 Marcelino Goyal [facility] 08:04:00 [facility] HEMOGLOBIN AND HEMATOCRIT 2020-12-[address] [facility] 05:00:00 [facility] CBC W/PLT COUNT & AUTO 2020-12-[address] [facility] DIFFER[facility] 05:00:00 [facility] COMPREHENSIVE METABOLIC PANEL 2020-12-23 [facility] 05:00:00 [facility] PROTHROMBIN TIME/INR 2020-12-[address] [facility] [facility] 05:00:00 [facility] MAGNESIUM 2020-12-[address] [facility] 05:00:00 [facility] HEMOGLOBIN AND HEMATOCRIT 2020-12-[address] [facility] 18:17:00 [facility] POCT-GLUCOSE METER 2020-12-[address] [facility] 05:27:00 [facility] SARS-COV2/RT-PCR ([facility]) 2020-12-[address] [facility] 05:26:00 [facility] CBC W/PLT COUNT & AUTO 2020-12-22 Jose, Ellims [facility] DIFFERENTIAL 03:59:00 [facility] BASIC METABOLIC PANEL (7) 2020-12-22 Jose, Ellims [facility] 03:59:00 [facility] HEPATIC FUNCTION PANEL 2020-12-22 Jose, [facility] 03:59:00 [facility] PHOSPHORUS 2020-12-22 Jose, [facility] 03:59:00 [facility] MAGNESIUM 2020-12-22 Jose, [facility] 03:59:00 [facility] POCT-GLUCOSE METER 2020-12-[address] [facility] 01:12:00 [facility] LACTIC ACID, VENOUS 2020-12-21 Bicette, Richina [facility] 19:03:00 [facility] PROTHROMBIN TIME/INR 2020-12-[address] [facility] 19:03:00 [facility] APTT 2020-12-[address] [facility] 19:03:00 [facility] AMMONIA 2020-12-[address] [facility] 19:03:00 [facility] BLOOD CULTURE 2020-12-[address] [facility] 19:02:00 [facility] BASIC METABOLIC PANEL (7) 2020-12-21 [facility] 15:52:00 [facility] HEPATIC FUNCTION PANEL 2020-12-[address] [facility] 15:52:00 [facility] CBC W/PLT COUNT & AUTO 2020-12-[address] [facility] DIFFER[facility] 15:52:00 [facility] BASIC METABOLIC PANEL (7) 2020-12-20 Plaza, Line [facility] 11:59:00 [facility] HEPATIC FUNCTION PANEL 2020-12-20 Plaza, [facility] 11:59:00 [facility] CBC W/PLT COUNT & AUTO 2020-12-20 [place], Line [facility] DIFFERENTIAL 11:59:00 [facility] PROTHROMBIN TIME/INR 2020-12-20 Plaza, Line [facility] 11:59:00 [facility] POCT-GLUCOSE METER 2020-12-13 Cleveland Nerig-Courtney [facility] 16:31:00 [facility] POCT-GLUCOSE METER 2020-12-13 Halle Fang-Courtney [facility] 11:41:00 [facility] POCT-GLUCOSE METER 2020-12-13 Halle Fang-Courtney [facility] 07:14:00 [facility] CALCIUM, IONIZED 2020-12-[address] [facility] 03:35:00 [facility] COMPREHENSIVE METABOLIC PANEL 2020-12-[address] [facility] 03:35:00 [facility] MAGNESIUM 2020-12-[address] [facility] 03:35:00 [facility] PHOSPHORUS 2020-12-[address] [facility] 03:35:00 [facility] CBC W/PLT COUNT & AUTO 2020-12-[address] DI[facility] 03:35:00 [facility] POCT-GLUCOSE METER 2020-12-[address] [facility] 22:16:00 [facility] POCT-GLUCOSE METER 2020-12-[address] [facility] 16:51:00 [facility] HEMOGLOBIN AND HEMATOCRIT 2020-12-[address] [facility] 15:58:00 [facility] POCT-GLUCOSE METER 2020-12-[address] [facility] 11:39:00 [facility] POCT-GLUCOSE METER 2020-12-[address] [facility] 08:06:00 [facility] CALCIUM, IONIZED 2020-12-[address] [facility] 03:34:00 [facility] COMPREHENSIVE METABOLIC PANEL 2020-12-[address] [facility] 03:34:00 [facility] MAGNESIUM 2020-12-[address] [facility] 03:34:00 [facility] PHOSPHORUS 2020-12-[address] [facility] 03:34:00 [facility] CBC W/PLT COUNT & AUTO 2020-12-[address] [facility] DIFFERENTIAL 03:34:00 [facility] PREPARE LEUKO-REDUCED RBC 2020-12-[address] [facility] 23:54:00 [facility] PREPARE LEUKO-REDUCED PLATELETS 2020-12-[address] [facility] 23:54:00 [facility] POCT-GLUCOSE METER 2020-12-[address] [facility] 21:46:00 [facility] HEMOGLOBIN AND HEMATOCRIT 2020-12-[address] [facility] 18:15:00 [facility] POCT-GLUCOSE METER 2020-12-[address] [facility] 17:50:00 [facility] HEPATITIS B E ANTIGEN 2020-12-[address] [facility] 14:50:00 [facility] HEPATITIS B E ANTIBODY 2020-12-[address] [facility] 14:49:00 [facility] HEPATITIS B SURFACE ANTIBODY 2020-12-[address] [facility] 14:49:00 [facility] POCT-GLUCOSE METER 2020-12-[address] [facility] 12:02:00 [facility] POCT-GLUCOSE METER 2020-12-[address] [facility] 07:59:00 [facility] ACTIN (SMOOTH MUSCLE) ANTIBODY, 2020-12-[address] [facility] IGG 05:11:00 [facility] ANTI-MITOCHONDRIAL AB, REFLEX TO 2020-12-[address] [facility] TITER 05:11:00 [facility] CALCIUM, IONIZED 2020-12-[address] [facility] 05:11:00 [facility] COMPREHENSIVE METABOLIC PANEL 2020-12-[address] [facility] 05:11:00 [facility] MAGNESIUM 2020-12-[address] [facility] 05:11:00 [facility] PHOSPHORUS 2020-12-[address] [facility] 05:11:00 [facility] CBC W/PLT COUNT & AUTO 2020-12-[address] [facility] DIFFERENTIAL 05:11:00 [facility] MITOCHONDRIAL AB SCREEN 2020-12-[address] [facility] 05:11:00 [facility] MITOCHONDRIAL AB TITER 2020-12-[address] [facility] 05:11:00 [facility] TRANSFUSE LEUKO-REDUCED PLATELETS 2020-12-[address] [facility] 01:55:57 [facility] PREPARE LEUKO-REDUCED PLATELETS 2020-12-[address] [facility] 23:54:00 [facility] HEMOGLOBIN AND HEMATOCRIT 2020-12-[address] [facility] 23:37:00 [facility] POCT-GLUCOSE METER 2020-12-[address] [facility] 21:39:00 [facility] POCT-GLUCOSE METER 2020-12-[address] [facility] 16:25:00 [facility] REPORT OF PROCEDURE - ENDOSCOPY 2020-12-[address] [facility] URL 16:01:18 [facility] UPPER ENDOSCOPY,BANDING 2020-12-[address] [facility] 15:28:00 [facility] CBC W/PLT COUNT & AUTO 2020-12-[address] [facility] DIFFERENTIAL 13:31:00 [facility] TRANSFUSE LEUKO-REDUCED RED BLOOD 2020-12-10 Miguel Thompson fredo [facility] CELLS 13:23:55 [facility] POCT-GLUCOSE METER 2020-12-[address] [facility] 11:33:00 [facility] POCT-GLUCOSE METER 2020-12-[address] [facility] 07:09:00 [facility] PROTHROMBIN TIME/INR 2020-12-[address] [facility] 05:12:00 [facility] COMPREHENSIVE METABOLIC PANEL 2020-12-[address] [facility] 05:12:00 [facility] HEMOGLOBIN A1C 2020-12-[address] [facility] 05:12:00 [facility] CALCIUM, IONIZED 2020-12-[address] [facility] 05:12:00 [facility] MAGNESIUM 2020-12-[address] [facility] 05:12:00 [facility] PHOSPHORUS 2020-12-[address] [facility] 05:12:00 [facility] CBC W/PLT COUNT & AUTO 2020-12-[address] [facility] DIFFERENTIAL 05:12:00 [facility] TRANSFUSE LEUKO-REDUCED PLATELETS 2020-12-[address] [facility] 01:43:15 [facility] POCT-GLUCOSE METER 2020-12-[address] [facility] 23:28:00 [facility] US ABDOMINAL WITH DOPPLER 2020-12-[address] [facility] 23:15:00 [facility] ABORH, MANUAL 2020-12-[address] [facility] 20:12:00 [facility] HEMOGLOBIN AND HEMATOCRIT 2020-12-09 Richiendagus, Asha [facility] 19:09:00 [facility] TYPE AND SCREEN, AUTOMATED 2020-12-09 Odilia, Asha [facility] 19:01:00 [facility] BLOOD CULTURE 2020-12-09 Joesph, Tesfai [facility] 17:17:00 [facility] URINE CULTURE 2020-12-09 Joesph, Tesfai [facility] 17:13:00 [facility] URINALYSIS W/ REFLEX URINE CULTURE 2020-12-09 Joesph, Tesfai [facility] 17:13:00 [facility] AMMONIA 2020-12-09 Amaliaagus, Asha [facility] 17:10:00 [facility] BLOOD CULTURE 2020-12-09 Joesph, Tesfai [facility] 17:09:00 [facility] HC LAB HIV-1 AG W/HIV-1&2 AB 2020-12-09 Joesph, Tesfai [facility] 17:09:00 [facility] PDLAQ-5-APRZLQLQBUO\\, SERUM 2020-12-09 Joesph, Tesfai [facility] 17:09:00 [facility] ANTI-NUCLEAR ANTIBODY (AARON) 2020-12-09 Joesph, Tesfai [facility] 17:09:00 [facility] HEPATITIS A ANTIBODY, IGG 2020-12-09 Joesph, Tesfai [facility] 17:09:00 [facility] DRUG SCREEN, URINE, TRANSPLANT 2020-12-09 Joesph, Tesfai [facility] 15:30:00 [facility] MISCELLANEOUS LAB ORDER 2020-12-09 Joesph, [facility]fai [facility] 15:22:00 [facility] CBC W/PLT COUNT & AUTO 2020-12-09 Odilia, Asha [facility] DIFFERENTIAL 15:21:00 [facility] COMPREHENSIVE METABOLIC PANEL 2020-12-[address] [facility] 15:21:00 [facility] HEPATITIS B CORE ANTIBODY, TOTAL 2020-12-09 Joesph, Tesfai [facility] 15:21:00 [facility] HEPATITIS C PCR, QUANTITATIVE 2020-12-09 Joesph, [facility]fai [facility] 15:21:00 [facility] HEPATITIS PANEL, ACUTE 2020-12-09 Joesph, [facility]fai [facility] 15:21:00 [facility] HEPATITIS B PCR, QUANTITATIVE 2020-12-09 Joesph, [facility]fai [facility] 15:21:00 [facility] CARCINOEMBRYONIC ANTIGEN (CEA) 2020-12-09 Joesph, Tesfai [facility] 15:21:00 [facility] CERULOPLASMIN 2020-12-09 Joesph, Tesfai [facility] 15:21:00 [facility] COPPER 2020-12-09 Joesph, Tesfai [facility] 15:21:00 [facility] FERRITIN 2020-12-09 Joesph, Tesfai [facility] 15:21:00 [facility] ACETAMINOPHEN LEVEL 2020-12-09 Joesph, Tesfai [facility] 15:21:00 [facility] ALPHA FETOPROTEIN (AFP), TUMOR 2020-12-09 Joesph, Alisonfai [facility] MARKER 15:21:00 [facility] CARBOHYDRATE ANTIGEN 19-9 (CA 2020-12-09 Joesph, Tesfai [facility] 19-9) 15:21:00 [facility] VITAMIN D, 25-HYDROXY 2020-12-09 Joesph, Tesfai [facility] 15:21:00 [facility] ZINC 2020-12-09 Joesph, Tesfai [facility] 15:21:00 [facility] IRON, TIBC, % SAT. (WITHOUT 2020-12-09 Joesph, Tesfai [facility] FERRITIN) 15:21:00 [facility] Arthroscopy [facility] section [facility] Plan of Care Planned Activity Planned Date Details Comments Source Future Scheduled 2030-12-[address] [facility] 00[facility]00[facility] colon (procedure) [code = 084560054] Future Scheduled 2030-12-[address] [facility] 00:00:00 [facility] colon (procedure) [code = 403731750] Future Scheduled 2030-12-[address] [facility] 00:00:00 [facility] colon (procedure) [code = 462184349] Future Scheduled 2030-12-[address] [facility] 00:00:00 [facility] colon (procedure) [code = 313692195] Future Scheduled 2030-12-[address] [facility] 00:00:00 [facility] colon (procedure) [code = 495821342] Future Scheduled 2030-12-[address] [facility] 00:00:00 [facility] colon (procedure) [code = 603605956] Future Scheduled 2030-12-[address] [facility] 00:00:00 [facility] colon (procedure) [code = 920081488] Future Scheduled 2024-04-[address] [facility] 00:00:00 (procedure) [code = [facility] 54352769] Future Scheduled 2024-04-[address] [facility] 00:00:00 (procedure) [code = [facility] 59161712] Future Scheduled 2024-04-[address] [facility] 00:00:00 (procedure) [code = [facility] 93955421] Future Scheduled 2023-03-26 Screening for [facility] Test 18:06:35 malignant neoplasm of colon (procedure) [code = 206810944] Future Scheduled 2023-03-26 Screening for [facility] Test 18:06:35 malignant neoplasm of colon (procedure) [code = 152458177] Future Scheduled 2023-03-26 Screening for [facility] Test 18:06:35 malignant neoplasm of colon (procedure) [code = 422294025] Future Scheduled 2023-03-26 COVID-19 [facility] (#[facility] 18:06:35 [code = COVID-19 VACCINE (#1)] Future Scheduled 2023-03-26 Screening for [facility] Test 18:06:35 malignant neoplasm of cervix (procedure) [code = 086172841] Future Scheduled 2023-03-26 BREAST CANCER [facility] Test 18:06:35 SCREENING [code = BREAST CANCER SCREENING] Future Scheduled 2023-03-26 Screening for [facility] Test 18:06:35 malignant neoplasm of colon (procedure) [code = 815248997] Future Scheduled 2023-03-26 Screening for [facility] Test 18:06:35 malignant neoplasm of colon (procedure) [code = 495596689] Future Scheduled 2023-03-26 SHINGLES VACCINES (1 [facility] 18:06:35 of 2) [code = SHINGLES VACCINES (1 of 2)] Future Scheduled 2023-03-26 [facility] 18:06:35 [code = INFLUENZA VACCINE (#1)] Future Scheduled 2023-02-17 Screening for [facility] Test 07:04:15 malignant neoplasm of colon (procedure) [code = 225400636] Future Scheduled 2023-02-17 Screening for [facility] Test 07:04:15 malignant neoplasm of colon (procedure) [code = 277806665] Future Scheduled 2023-02-17 Screening for [facility] Test 07:04:15 malignant neoplasm of colon (procedure) [code = 196160287] Future Scheduled 2023-02-17 COVID-19 VACCINE (#[facility] 07:04:15 [code = COVID-19 VACCINE (#1)] Future Scheduled 2023-02-17 Screening for [facility] Test 07:04:15 malignant neoplasm of cervix (procedure) [code = 834579162] Future Scheduled 2023-02-17 BREAST CANCER [facility] Test 07:04:15 SCREENING [code = BREAST CANCER SCREENING] Future Scheduled 2023-02-17 Screening for [facility] Test 07:04:15 malignant neoplasm of colon (procedure) [code = 063415901] Future Scheduled 2023-02-17 Screening for [facility] Test 07:04:15 malignant neoplasm of colon (procedure) [code = 652284268] Future Scheduled 2023-02-17 SHINGLES VACCINES (1 [facility] 07:04:15 of 2) [code = SHINGLES VACCINES (1 of 2)] Future Scheduled 2023-02-17 [facility]ACCINE (#[facility] 07:04:15 [code = INFLUENZA VACCINE [...] Vaccine (#1)] Future Scheduled 2023-01-01 Screening for [facility] Test 21:32:06 malignant neoplasm of colon (procedure) [code = 048278835] Future Scheduled 2023-01-01 Screening for [facility] Test 21:32:06 malignant neoplasm of colon (procedure) [code = 196270462] Future Scheduled 2023-01-01 Screening for [facility] Test 21:32:06 malignant neoplasm of colon (procedure) [code = 220691399] Future Scheduled 2023-01-01 COVID-19 VACCINE (#1) [facility] Test 21:32:06 [code = COVID-19 VACCINE (#1)] Future Scheduled 2023-01-01 Screening for [facility] Test 21:32:06 malignant neoplasm of cervix (procedure) [code = 300638616] Future Scheduled 2023-01-01 BREAST CANCER [facility] Test 21:32:06 SCREENING [code = BREAST CANCER SCREENING] Future Scheduled 2023-01-01 Screening for [facility] Test 21:32:06 malignant neoplasm of colon (procedure) [code = 711852963] Future Scheduled 2023-01-01 Screening for [facility] Test 21:32:06 malignant neoplasm of colon (procedure) [code = 700357379] Future Scheduled 2023-01-01 SHINGLES VACCINES (1 [facility] 21:32:06 of 2) [code = SHINGLES VACCINES (1 of 2)] Future Scheduled 2023-01-01 ZZZ INFLUENZA VACCINE [facility] Test 21:32:06 [code = ZZZ INFLUENZA [...] 00:00:00 measurement Medical Center (procedure) [code = 77533105] Future Scheduled 2021-10-[address] [facility] (procedure) [code = 13431110] Future Scheduled 2021-10-[address] [facility] 00[facility] measurement [facility] Center (procedure) [code = 35186089] Future Scheduled 2021-10-[address] [facility] 00:00:00 (procedure) [code = [facility] 46307789] Future Scheduled 2020-10-07 COVID-19 VACCINE ([facility]) [code = COVID-19 VACCINE (2 - [facility] for [facility] series)] Future Scheduled 2020-10-07 COVID-19 VACCINE (2 [facility] series) [code = COVID-19 VACCINE (2 - [facility] series)] Future Scheduled 2020-10-07 COVID-19 VACCINE (2 - [facility]) [code = COVID-19 VACCINE (2 - [facility] for [facility] series)] Future Scheduled 2020-09-30 Medicare IPPE (WELCOME [facility] 00:00:00 TO MEDICARE) [code = [facility] Medicare IPPE (WELCOME TO MEDICARE)] [...] [facility] Center cervix (procedure) [code = 868818399] Future Scheduled 1988-12-[address] [facility] 00:00:00 [facility] cervix (procedure) [code = 819106146] Future Scheduled 1988-12-[address] [facility] 00:00:00 [facility] cervix (procedure) [code = 951979944] Future Scheduled 1988-12-[address] [facility] 00:00:00 [facility] cervix (procedure) [code = 779996446] Future Scheduled 1986-12-23 DTAP/TDAP/TD VACCINES [facility] I [...] 00:00:00 examination Medical Center (regime/therapy) [code = 809460746] Future Scheduled 1977-12-23 Urine screening for [facility] 00:00:00 protein (procedure) Medical Center [code = 512481834] Future Scheduled 1977-12-[address] EXAM [facility] Test 00:00:00 [code = DIABETIC EYE Medical Center EXAM] Future Scheduled 1977-12-[address] [facility] 00:00:00 examination Medical Center (regime/therapy) [code = 071984165] Future Scheduled 1977-12-23 Urine screening for [facility] 00:00:00 protein (procedure) Medical Center [code = 452369717] Future Scheduled 1977-12-[address]YE EXAM [facility] Test 00:00:00 [code = DIABETIC EYE Medical Center EXAM] Future Scheduled 1977-12-[address] [facility] 00:00:00 examination Medical Center (regime/therapy) [code = 751863339] Future Scheduled 1977-12-23 Urine screening for [facility] 00:00:00 protein (procedure) Medical Center [code = 455294180] Future Scheduled 1973-12-[address] [facility] Test 00:00:00 0-64 YRS (1 of 1 - Medical C enter PPSV23) [code = PNEUMOCOCCAL VACCINE 0-64 YRS (1 of 1 - PPSV23)] Future Scheduled [address] [facility] 00:00:00 [facility] breast (procedure) [code = 453365449] Future Scheduled [address] [facility] 00:00:00 [facility] breast (procedure) [code = 785873284] Future Scheduled [address] [facility] 00:00:00 (combo) [code = CT Medical C enter Colonography (combo)] Future Scheduled [address] [facility] 00[facility]00:00 malignant [facility]oplasm [facility] colon (procedure) [code = 567476927] Future Scheduled [address] [facility] 00:00:00 [facility] colon (procedure) [code = 942518435] Future Scheduled 1967 Sigmoidoscopy [code = [facility] S[facility]oscopy[facility] Future Scheduled [address] [facility] 00:00:00 [facility] breast (procedure) [code = 010925757] Future Scheduled [address] [facility] 00:00:00 (combo) [code = CT Medical C enter Colonography (combo)] Future Scheduled [address] [facility] 00:00:00 malignant [facility]oplasm [facility] colon (procedure) [code = 708246571] Future Scheduled [address] [facility] 00:00:00 malignant [facility]oplasm [facility] colon (procedure) [code = 370471073] Future Scheduled 1967 Sigmoidoscopy [facility]code [facility] S[facility]oscopy] [facility] Future Scheduled [address] [facility] 00:00:00 [facility] breast (procedure) [code = 920299844] Future Scheduled [address] [facility] 00:00:00 (combo) [code = CT Medical C enter Colonography (combo)] Future Scheduled [address] [facility] 00:00:00 malignant [facility]oplasm [facility] colon (procedure) [code = 684046794] Future Scheduled [address] [facility] 00:00:00 malignant [facility]oplasm [facility] colon (procedure) [code = 092083907] Future Scheduled 1967 Sigmoidoscopy [code = [facility] Sigmoidoscopy] [facility] Future Scheduled COVID-19 [facility]ACCINE (1) [facility] [code = COVID-19 VACCINE (1)] Future Scheduled Screening for [facility] Test malignant neoplasm of cervix (procedure) [code = 689068109] Future Scheduled BREAST CANCER [facility] Test SCREENING [code = BREAST CANCER [...] Date/Time Type Type Clinicians Facility Department ID 2023-03-28 Outpatient Gonzalez, STLMLC STLMLC [id number] Common 11:00:00 [facility] [id number] [facility] 2023-02-14 Outpatient Gonzalez, STLMLC STLMLC [id number] Common 09:22:01 [facility] [address] [facility] 2022-11-18 Outpatient Gonzalez, STLMLC STLMLC [id number] Common 14:35:01 [facility] [address] [facility] 2022-08-23 Outpatient Gonzalez, STLMLC STLMLC [id number] Common 13:15:01 [facility] [address] [facility] 2022-08-22 Outpatient Gonzalez, STLMLC STLMLC [id number] Common 10:57:01 [facility] [address] [facility] 2022-06-21 Outpatient Gonzalez, STLMLC STLMLC [id number] Common 11:23:01 [facility] [address] [facility] 2022-05-21 Outpatient Gonzalez, STLMLC STLMLC [id number] Common 12:53:01 [facility] 2022-05-20 Outpatient Gonzalez, STLMLC STLMLC [id number] Common 14:50:01 [facility] 2022-02-18 Outpatient Gonzalez, STLMLC STLMLC [id number] Common 09:46:01 [facility] 2022-02-07 Outpatient Gonzalez, STLMLC STLMLC [id number] Common 16:35:01 [facility] 2022-01-28 Inpatient ER BRANN, [facility] [id number] [facility] 18:34:00 CHRISTOPHER 2022-01-21 Outpatient Gonzalez, STLMLC STLMLC [id number] Common 15:59:02 Phylicia [facility] 2021-11-12 Outpatient Gonzalez, STLMLC STLMLC [id number] Common 13:28:03 Phylicia [facility] 2021-11-07 Outpatient Gonzalez, STLMLC STLMLC [id number] Common 09:53:04 Phylicia [facility] 2021-10-12 Outpatient Gonzalez, STLMLC STLMLC [id number] Common 14:40:01 Phylicia [facility] 2021-08-14 Outpatient Gonzalez, STLMLC STLMLC [id number] Common 09:17:03 Phylicia [facility] 2021-08-13 Outpatient Gonzalez, STLMLC STLMLC [id number] Common 15:16:01 Phylicia [facility] 2021-07-19 Outpatient Gonzalez, STLMLC STLMLC [id number] Common 17:19:00 Phylicia [facility] 2021-07-18 Outpatient Gonzalez, STLMLC STLMLC [id number] Common 10:01:04 Phylicia [facility] 2021-04-17 Outpatient SHAHID JAIN, [facility] Surgery [id number] SLE 09:20:49 OLGA 2021-04-02 Outpatient Lele PHEPLS [facility] DANIEL [id number] Univers 07:49:43 SP martiny o f [facility] 2021-04-02 Emergency [facility] [id number] Univers 02:23:15 ity of [facility] 2021-04-01 Emergency [facility] [id number] Univers 23:18:10 ity [facility] 2021-04-01 Emergency [facility] [id number] Univers 19:20:57 ity [facility] 2021-03-31 Emergency [facility] [id number] Univers 07:39:48 ity of [facility] 2021-03-31 Emergency [facility] [id number] Univers 06:08:00 ity of [facility] 2021-03-11 Inpatient ER PHILLIP DONG Gastro [id number] [facility] 08:43:11 MERE 2020-12-09 Inpatient ER PHILLIP PARKER Gastro [id number] [facility] 13:19:00 LYNDSEY 2022-08-29 2022-08-29 Emergency X KWAN, [facility] ERT [id number] Univers 11:54:00 16:40:00 KHOI ity of [facility] 2022-08-29 2022-08-29 [facility] [id number] Univers 11:54:00 16:40:00 Khoi SYL [id number] i ty of [place] [id number] [facility] [id number] [facility] 0[address] Branch 2022-08-29 2022-08-29 Orders Doctor JAMEL [id number] Univers 00:00:00 00:00:00 Only Unassigned, MAGGIE [id number] [facility] [id number] Shaun [id number] [facility] 009 Branch 2022-06-29 2022-06-[address] [facility] [id number] 14:51:00 20:24:00 [facility] 2022-06-29 2022-06-[address] [facility] [id number] 14:51:00 20:24:00 [facility] 2022-06-29 2022-06-29 Travel [facility] [id number] [facility] 00:[facility] 00:00:00 [facility] 2022-06-29 2022-06-29 Travel [facility] [id number] [facility] 00:[facility] 00:00:00 [facility] 2022-05-30 2022-05-30 (TEL) [facility] [id number] Co mmon 00:00:00 00:00:00 Spirit - [facility] 2022-05-22 2022-05-22 OFFICE STLMLC STLMLC [id number] Co mmon 00:00:00 00:00:00 VISIT Migel [facility] LEVEL 4 [facility] 2022-04-26 2022-04-26 Telephone [facility] [id number] 00:00[facility]00 00:00:00 [facility] 2022-04-26 2022-04-26 Telephone Diana, [facility] [id number] [id number] 00:00[facility] 00:00:00 [facility] 2022-04-23 2022-04-23 (TEL) STLMLC STLMLC [id number] Co mmon 00:00:00 00:00:00 [facility] 2022-04-04 2022-04-04 (TEL) STLMLC STLMLC [id number] Co mmon 00:00:00 00:00:00 [facility] 2022-02-28 2022-02-28 Documentat Diana, [facility] [id number] [facility] 00:[facility] 00:00:00 [facility] 2022-02-27 2022-02-[address] [facility] [id number] [id number] 00:00:00 00:00:00 [facility] 2022-02-25 2022-02-[address] [facility] [id number] 00:00:00 00:00:00 [facility] 2022-02-25 2022-02-25 Telephone Diana, [facility] [id number] 00:00:00 00:00:00 [facility] 2022-02-22 2022-02-22 Telephone Diana, [facility] [id number] 00:00[facility]00 00:00:00 [facility] 2022-02-21 2022-02-21 (TEL) [facility] [id number] Co mmon 00:00:00 00:00:00 [facility] Joaquin ARCIINEGA [facility] 2022-02-20 2022-02-20 [facility] [id number] Co mmon 00:00:00 00:00:00 VISIT Migel [facility] - [facility] LEVEL 4 Henry [facility] 2022-02-15 2022-02-[address] [facility] [id number] 17:52:00 22:30:00 , [place] [facility] 2022-02-15 2022-02-15 Emergency ER SLE Emergency [id number] SLE 17:52:00 17:52:00 2022-02-15 2022-02-15 Travel [facility] [id number] [facility] 00[facility]:00 [facility] 2022-02-15 2022-02-15 (TEL) [facility] [id number] Co mmon 00:00:00 00:00:00 [facility] 2022-02-11 2022-02-11 Transition ROEL Collins 1.2.840.114 [id number] Univers 00:00:00 00:00:00 of Care Marcusnatanael RIGGSY 350.1.13.10 [place] [phone] [facility] [address] Branch 2022-02-11 2022-02-11 Patient Doctor JAMEL 1.2.840.114 [id number] Univers 00:00:00 00:00:00 Secure Msg Unassigned, MAGGIE 350.1.13.10 ity of [place] [facility] [id number] Shaun as [phone] [facility] 019 Branch 2022-02-06 2022-02-09 Inpatient X DELVIN [facility] NO [id number] Univers 20:05:00 17:28:00 PAUL ity of [facility] 2022-02-06 2022-02-09 Hospital Zeynep Mcmahan [facility] 1.2.84 0.114 [id number] Univers 20:05:00 17:28:00 Encounter Paul [facility].13.10 [facility] [id number] Barbie COOK [phone] [place] [id number] Branch ([facility] 2022-02-06 2022-02-09 Inpatient X DELVIN [facility] [id number] Univers 20:05:00 17:28:00 PAUL ithan [facility] 2022-02-07 2022-02-07 Telephone Diana, [facility] [id number] 00:[facility] 00:00:00 [facility] 2022-01-28 2022-02-[address] [facility] [id number] 18:34:00 11:14:00 Encounter Komal Owen [facility], [facility] 2022-01-31 2022-01-[address] [facility] [id number] 10:00:00 11:00:00 [facility] 2022-01-31 2022-01-[address] [facility] [id number] 10:03:00 10:55:00 Event Roseann Luna [facility] 2022-01-02 2022-01-02 [facility] [id number] SLE 00:00:00 00:00:00 2021-12-28 2021-12-28 (TEL) [facility] [id number] Co mmon 00:00:00 00:00:00 [facility] 2021-12-17 2021-12-17 (TEL) [facility] [id number] Co mmon 00:00:00 00:00:00 [facility] 2021-11-26 2021-11-26 Outpatient EL STEFANIE, SLE SLE [id number] SLE 16:36:52 16:36:52 RISE 2021-11-20 2021-11-20 Outpatient EL STEFANIE, SLEH SLEH [id number] SLEH 00:00:00 00:00:00 RISE 2021-11-15 2021-11-15 OFFICE STLMLC STLMLC [id number] Co mmon 00:00:00 00:00:00 VISIT Migel ESTAB PT - CHI LEVEL 4 [facility] 2021-11-14 2021-11-14 Outpatient SHAHID COFFMAN, SLE Surgery [id number] SLEH 10:33:00 12:55:00 SUNEAL 2021-11-08 2021-11-08 (TEL) STLMLC STLMLC [id number] Co mmon 00:00:00 00:00:00 [facility] 2021-11-07 2021-11-07 Outpatient SHAHID WATTS SLE SLE [id number] SLEH 08:08:14 08:08:14 RISE 2021-10-12 2021-10-12 OFFICE STLMLC STLMLC [id number] Co mmon 00:00:00 00:00:00 VISIT EST Spir it PT LEVEL 3 [facility] 2021-10-03 2021-10-03 (TEL) STLMLC STLMLC [id number] Co mmon 00:00:00 00:00:00 [facility] 2021-10-02 2021-10-02 Outpatient SHAHID LITTLE SLE SLE [id number] SLEH 07:55:01 23:59:00 ANN 2021-10-02 2021-10-02 Outpatient SHAHID MARTINEZ SLE SLEH [id number] SLEH 10:31:31 10:31:31 ERIC 2021-10-02 2021-10-02 Outpatient EL SLE SLEH [id number] SLEH 00:00:00 00:00:00 2021-09-18 2021-09-18 (TEL) STLMLC STLMLC [id number] Co mmon 00:00:00 00:00:00 [facility] 2021-09-11 2021-09-11 OFFICE STLMLC STLMLC [id number] Co mmon 00:00:00 00:00:00 VISIT Spirit [facility] PT - CHI LEVEL 4 [facility] 2021-09-04 2021-09-06 Inpatient ER KELSI, [facility] Emergency 20 [id number] SLE 22:14:00 18:01:00 HAVEN 2021-08-28 2021-08-28 (TEL) STLMLC STLMLC [id number] Co mmon 00:00:00 00:00:00 Spirit - CHI [facility] 2021-08-15 2021-08-15 OFFICE STLMLC STLMLC [id number] Co mmon 00:00:00 00:00:00 VISIT Spirit ESTAB PT - CHI LEVEL 4 [facility] 2021-08-15 2021-08-15 SUB ANNUAL STLMLC STLMLC [id number] Common 00:00:00 00:00:00 MCR Spirit WELLNESS - CHI VISIT [facility] 2021-08-12 2021-08-13 Emergency ER BHAVESH, [facility] Emergency [id number] [facility] 16:14:00 00:17:00 CJ 2021-08-10 2021-08-10 Ambulatory nullFlavo ALA [id number] Memoria 20:45:00 20:45:00 Pre-Reg r Neurology 14 l Nela García 2021-08-10 2021-08-10 Ambulatory nullFlavo MNA [id number] Memoria 20:45:00 20:45:00 Pre-Reg r Neurology 14 l Nela García 2021-08-10 2021-08-10 Outpatient MHIE IE [id number] Memoria 14:45:00 14:45:00 14 jostin Mariano 2021-08-10 2021-08-10 [id number] 14:45:00 14:45:00 Youryanne Bowden 2021-08-10 2021-08-10 (TEL) STLMLC STLMLC [id number] Co mmon 00:00:00 00:00:00 Spirit - [facility]I [facility] 2021-07-23 2021-07-24 Outpt Diag nullFlavo [facility] [id number] Memoria 16:22:00 05:59:00 Services r Outpatient [address] 2021-07-23 2021-07-24 Outpt Diag nullFlavo [facility] [id number] Memoria 16:22:00 05:59:00 Services r Outpatient 04 l Lissa [facility] 2021-07-23 2021-07-23 Outpatient DuyCARSON MHOIP [id number] 10:22:00 23:59:00 You See Bowden 2021-07-18 2021-07-18 OFFICE STLMLC STLMLC [id number] Co mmon 00:00:00 00:00:00 VISIT NEW Spir it PT LEVEL 5 - CHI [facility] 2021-07-03 2021-07-03 Outpatient EL [facility] SLE [id number] SLE 11:04:13 11:04:13 2021-07-03 2021-07-03 Outpatient EL SIDNEY [facility] SLE [id number] SLEH 08:52:29 08:52:29 ANN 2021-06-29 2021-06-30 Outpatient nullFlavo MNA [id number] Memoria 21:00:00 05:59:59 r Neurology 12 l Nela Mariano 2021-06-29 2021-06-30 Outpatient nullFlavo MNA [id number] Memoria 21:00:00 05:59:59 r Neurology 12 l Nela Mariano 2021-06-29 2021-06-29 Outpatient JALYN Gordillo [facility] [id number] 15:00:00 23:59:59 You Vika Bowden 2021-06-29 2021-06-29 Outpatient MHIE MHIE [id number] Memoria 15:00:00 15:00:00 12 jostin García 2021-05-10 2021-05-12 Phone nullFlavo MHMG [id number] Memoria 21:22:16 05:59:59 Message r Primary 01 [facility] 2021-05-10 2021-05-12 Phone nullFlavo MHMG [id number] Memoria 21:22:16 05:59:59 Message r Primary 01 [facility] 2021-05-10 2021-05-11 Outpatient MHMG MHMG [id number] 15:22:16 23:59:59 2021-04-12 2021-04-14 Outpatient ER QUEVEDO, SLE Emergency [id number] SLEH 17:00:00 13:56:00 URBAN 2021-04-12 2021-04-12 Outpatient EL STEFANIE, SLEH SLEH [id number] SLEH 12:58:25 16:59:00 RISE 2021-04-12 2021-04-12 Outpatient EL STEFANIE SLEChalo SLE [id number] SLEH 08:01:59 12:57:00 RISE 2021-04-12 2021-04-12 Outpatient EL STEFANIE, SLEH SLE [id number] SLEH 08:01:49 12:57:00 RISE 2021-04-12 2021-04-12 Outpatient EL STEFANIE, SLEChalo SLE [id number] SLEH 08:01:39 12:57:00 RISE 2021-04-12 2021-04-12 Outpatient EL STEFANIE SLEChalo SLE [id number] SLEH 08:01:30 08:00:00 RISE 2021-04-11 2021-04-11 Outpatient EL STEFANIE, SLE SLE [id number] SLEH 12:47:22 23:59:00 RISE 2021-04-11 2021-04-11 Outpatient EL STEFANIE SLEChalo SLE [id number] SLEH 12:47:08 23:59:00 RISE 2021-04-11 2021-04-11 Outpatient EL PHILLIP PRICE SLE [id number] SLEH 11:37:08 11:37:08 ANNMARIE 2021-04-11 2021-04-11 Outpatient EL SLEH SLEH [id number] SLEH 11:19:24 11:19:24 2021-04-11 2021-04-11 Outpatient EL SLEH SLEH [id number] SLEH 07:15:14 07:15:14 2021-04-11 2021-04-11 Outpatient EL SLEH SLEH [id number] SLEH 07:14:55 07:14:55 2021-04-11 2021-04-11 Outpatient EL SLE SLEH [id number] SLEH 07:14:31 07:14:31 2021-04-11 2021-04-11 Outpatient EL JAMEL HERNANDEZ [facility] SLEH [id number] SLEH 07:14:11 07:14:11 2021-04-11 2021-04-11 Outpatient EL SLE SLE [id number] SLEH 07:13:49 07:13:49 2021-04-11 2021-04-11 Outpatient EL STEFANIE SLE SLE [id number] SLEH 00:00:00 00:00:00 RISE 2021-04-05 2021-04-06 Between nullFlavo MHMG [id number] Memoria 15:08:27 15:08:27 Visit r Primary 04 [facility] 2021-04-05 2021-04-06 Between nullFlavo MHMG [id number] Memoria 15:08:27 15:08:27 Visit r Primary 04 [facility] 2021-04-05 2021-04-06 Outpatient MG MG [id number] 10:08:27 10:08:27 04 2021-03-23 2021-03-25 Outpatient ER PRIYANKA, [facility] Emergency [id number] SLEH 13:26:00 11:59:00 BEV 2021-03-23 2021-03-23 Outpatient EL BIBI, [facility] [id number] SLEH 11:33:16 11:33:16 ZAINAB 2021-03-07 2021-03-10 Inpatient ER GADICHERLA, [facility] Emergency 20 [id number] SLEH 18:46:00 14:03:00 IGOR 2021-03-08 2021-03-08 Outpatient EL SLE SLE [id number] SLE 00:00:00 00:00:00 2021-03-07 2021-03-07 Outpatient EL SILVANO, [facility] SLE [id number] SLEH 12:14:44 18:45:00 JAMEL 2021-02-19 2021-02-19 Outpatient EL SLE SLE [id number] SLEH 00:00:00 00:00:00 2021-02-14 2021-02-15 Between nullFlavo MHMG [id number] Memoria 18:53:37 18:53:37 Visit r Primary 03 [facility] 2021-02-14 2021-02-15 Between nullFlavo MHMG [id number] Memoria 18:53:37 18:53:37 Visit r Primary 03 [facility] 2021-02-14 2021-02-15 Outpatient MHMG MHMG [id number] 13:53:37 13:53:37 03 2021-02-07 2021-02-07 Outpatient SLEH SLEH [id number] SLEH 00:00:00 00:00:00 2021-01-30 2021-01-31 Between nullFlavo MHMG [id number] Memoria 21:46:37 21:46:37 Visit r Primary 02 [facility] 2021-01-30 2021-01-31 Between nullFlavo MHMG [id number] Memoria 21:46:37 21:46:37 Visit r Primary 02 [facility] 2021-01-30 2021-01-31 Outpatient MHMG MHMG [id number] 16:46:37 16:46:37 02 2021-01-22 2021-01-23 Between nullFlavo MHMG [id number] Memoria 14:35:17 14:35:17 Visit r Primary 01 [facility] 2021-01-22 2021-01-23 Between nullFlavo MHMG [id number] Memoria 14:35:17 14:35:17 Visit r Primary 01 [facility] 2021-01-22 2021-01-23 Outpatient MHMG MHMG [id number] 09:35:17 09:35:17 2021-01-22 2021-01-23 Outpatient nullFlavo MHMG [id number] Memoria 21:00:00 04:59:[address] [facility] 2021-01-22 2021-01-23 Outpatient nullFlavo MHMG [id number] Memoria 21:00:00 04:59:[address] [facility] 2021-01-22 2021-01-22 Outpatient Skylar-Will MHMG MHMG [id number] 16:00:00 23:59:59 isAdela 13 2021-01-22 2021-01-22 Outpatient MHIE MHIE [id number] Memoria 16:00:00 16:00:00 13 jostin Phenix 2021-01-01 2021-01-03 Phone nullFlavo MHMG [id number] Memoria 17:46:17 04:59:59 Message r Primary 00 l [facility] 2021-01-01 2021-01-03 Phone nullFlavo MHMG [id number] Memoria 17:46:17 04:59:59 Message r Primary 00 l [facility] 2021-01-01 2021-01-02 Outpatient MHMG MG [id number] 12:46:17 23:59:59 00 2020-12-27 2020-12-28 Outpatient nullFlavo MNA [id number] Memoria 16:15:00 04:59:59 r Neurology 09 l Nela Phenix 2020-12-27 2020-12-28 Outpatient nullFlavo MNA [id number] Memoria 16:15:00 04:59:59 r Neurology 09 l Nela Phenix 2020-12-27 2020-12-27 Outpatient JALYN Gordillo [facility] [id number] 11:15:00 23:59:59 You Demarco Kal 2020-12-27 2020-12-27 Outpatient MHIE MHIE [id number] Memoria 11:15:00 11:15:00 09 jostin Mariano 2020-12-21 2020-12-21 Emergency ER SLEH Emergency [id number] SLEH 14:14:00 14:14:00 2020-12-20 2020-12-21 Outpatient nullFlavo MNA [id number] Memoria 21:00:00 04:59:59 r Neurology 11 l Nela Phenix 2020-12-20 2020-12-21 Outpatient nullFlavo MNA [id number] Memoria 21:00:00 04:59:59 r Neurology 11 l Nela Grigsbyann 2020-12-20 2020-12-20 Outpatient JOIE GordilloSCHCASTILLO [facility]ISCHER [id number] 16:00:00 23:59:59 You 11 Kal 2020-12-20 2020-12-20 Outpatient MHIE MHIE [id number] Memoria 16:00:00 16:00:00 11 l García 2020-12-20 2020-12-[address] [facility] [id number] SLE 00:00:00 00:00:00 2020-12-08 2020-12-08 [facility] [id number] 00:00[facility]00 00:00:00 Encounter [facility] 2020-12-06 2020-12-07 Outpt Diag nullFlavo [facility] [id number] Memoria 22:19:00 04:59:00 Services r Outpatient 03 l Imaging García [place] 2020-12-06 2020-12-07 Outpt Diag nullFlavo [facility] [id number] Memoria 22:19:00 04:59:00 Services r Outpatient 03 l Imaging García [place] 2020-12-06 2020-12-06 Outpatient CARSON Gordillo LUKEP [id number] 17:19:00 23:59:00 You 03 Kal 2020-12-06 2020-12-06 Ambulatory nullFlavo MNA [id number] Memoria 15:00:00 15:00:00 Pre-Reg r Neurology 10 l Nela García 2020-12-06 2020-12-06 Ambulatory nullFlavo MNA [id number] Memoria 15:00:00 15:00:00 Pre-Reg r Neurology 10 l Nela Mariano 2020-12-06 2020-12-06 Outpatient STONE RITTER [id number] Memoria 10:00:00 10:00:00 10 l García 2020-12-06 2020-12-06 Outpatient JALYN Gordillo MISCHCASTILLO [id number] 10:00:00 10:00:00 You 10 Kal 2020-12-01 2020-12-01 Office MARLENA Phelps 1.2.840.114 [id number] 08:35:38 11:02:59 Visit Sp ARORA 350.1.13.10 [place] 4.2.7.2.686 GORMAN [phone] [facility] 2020-12-01 2020-12-01 Outpatient R [facility] [id number] Univers 08:45:00 08:45:00 ity [facility] 2020-11-15 2020-11-16 Outpatient nullFlavo MNA [id number] Memoria 14:30:00 04:59:59 r Neurology 08 l Nela Grigsbyann 2020-11-15 2020-11-16 Outpatient nullFlavo MNA [id number] Memoria 14:30:00 04:59:59 r Neurology 08 l Nela García 2020-11-15 2020-11-15 Outpatient JALYN Gordillo MHMISCHER [id number] 09:30:00 23:59:59 You Mickie Bowden 2020-11-15 2020-11-15 Outpatient MHIE MHIE [id number] Memoria 09:30:00 09:30:00 08 jostin Phenix 2020-10-23 2020-10-24 Outpatient nullFlavo MHMG [id number] Memoria 19:00:00 04:59:59 r Primary 06 l [facility] 2020-10-23 2020-10-24 Outpatient nullFlavo MHMG [id number] Memoria 19:00:00 04:59:59 r Primary 06 l [facility] 2020-10-23 2020-10-23 Outpatient Skylar-Will MHMG MHMG [id number] 14:00:00 23:59:59 is, Adela 06 2020-10-23 2020-10-23 Outpatient MHIE MHIE [id number] Memoria 14:00:00 14:00:00 06 jostin García 2020-10-18 2020-10-18 Ambulatory nullFlavo MNA [id number] Memoria 19:00:00 19:00:00 Pre-Reg r Neurology 07 l [place] García 2020-10-18 2020-10-18 Ambulatory nullFlavo MNA [id number] Memoria 19:00:00 19:00:00 Pre-Reg r Neurology 07 l [place] García 2020-10-18 2020-10-18 Outpatient MHIE MHIE [id number] Memoria 14:00:00 14:00:00 07 jostin García 2020-10-182020-10-18 Outpatient JALYN Gordillo [id number] 14:00:00 14:00:00 You Santiago Bowden 2020-10-17 2020-10-17 Patient Doctor JAMEL 1.2.840.114 [id number] Univers 00:00:00 00:00:00 Secure Msg Unassigned, MAGGIE 350.1.13.[address] [facility] [facility] 4.2.7.2.686 Shaun as [phone] [address] 2020-10-15 2020-10-15 Emergency X KWAN, [facility] ERT [id number] Univers 13:49:00 18:07:00 KHOI ciara [facility] 2020-10-11 2020-10-11 Ambulatory nullFlavo MNA [id number] Memoria 19:15:00 19:15:00 Pre-Reg r Neurology 05 l Nela Mariano 2020-10-11 2020-10-11 Ambulatory nullFlavo MNA [id number] Memoria 19:15:00 19:15:00 Pre-Reg r Neurology 05 l Nela Mariano 2020-10-11 2020-10-11 Outpatient MHIE MHIE [id number] Memoria 14:15:00 14:15:00 05 jostin García 2020-10-11 2020-10-11 Outpatient JALYN GordilloSCHCASTILLO [id number] 14:15:00 14:15:00 You Rafal Bowden 2020-09-06 2020-09-06 Ambulatory nullFlavo MNA [id number] Memoria 18:00:00 18:00:00 Pre-Reg r Neurology 04 l Nela Mariano 2020-09-06 2020-09-06 Ambulatory nullFlavo MNA [id number] Memoria 18:00:00 18:00:00 Pre-Reg r Neurology 04 l Nela Mariano 2020-09-06 2020-09-06 Outpatient MHIE MHIE [id number] Memoria 13:00:00 13:00:00 04 jostin García 2020-09-06 2020-09-06 Outpatient JALYN GordilloSCHCASTILLO [id number] 13:00:00 13:00:00 You See Kal 2020-08-28 2020-08-29 Outpatient nullFlavo MHMG [id number] Memoria 16:30:00 04:59:59 r Primary 03 jostin [facility] 2020-08-28 2020-08-29 Outpatient nullFlavo MHMG [id number] Memoria 16:30:00 04:59:[address] [facility] 2020-08-28 2020-08-28 Outpatient Skylar-Will MHMG MHMG [id number] 11:30:00 23:59:59 isAdela 2020-08-28 2020-08-28 Outpatient MHIE MHIE [id number] Memoria 11:30:00 11:30:00 03 jostin Mariano 2020-08-26 2020-08-26 Outpatient [facility] [id number] Univers 00:00:00 00:00:00 [facility] 2020-08-23 2020-08-24 Outpatient nullFlavo MNA [id number] Memoria 19:15:00 04:59:59 r Neurology 02 l Nela Mariano 2020-08-23 2020-08-24 Outpatient nullFlavo MNA [id number] Memoria 19:15:00 04:59:59 r Neurology 02 l Nela Mariano 2020-08-23 2020-08-23 Outpatient JALYN Gordillo MHMISCHER [id number] 14:15:00 23:59:59 You Krystal Bowden 2020-08-23 2020-08-23 Outpatient MHIE MHIE [id number] Memoria 14:15:00 14:15:00 02 jostin Mariano 2020-08-12 2020-08-12 Outpatient [facility] [id number] MD 12:07:04 12:07:04 Fred yoo 2020-07-27 2020-07-28 Outpatient nullFlavo MHMG [id number] Memoria 19:30:00 05:59:[address] [facility] 2020-07-27 2020-07-28 Outpatient nullFlavo MHMG [id number] Memoria 19:30:00 05:59:59 r Primary 01 l [facility] 2020-07-27 2020-07-27 Outpatient Skylar-Will MHMG MHMG [id number] 13:30:00 23:59:59 isAdela 2020-07-27 2020-07-27 Ambulatory nullFlavo MHMG [id number] Memoria 19:30:00 19:30:00 Pre-Reg r Primary 00 l [facility] 2020-07-27 2020-07-27 Ambulatory nullFlavo MHMG [id number] Memoria 19:30:00 19:30:00 Pre-Reg r Primary 00 l [facility] 2020-07-27 2020-07-27 Outpatient MHIE MHIE [id number] Memoria 13:30:00 13:30:00 01 l [place] 2020-07-27 2020-07-27 Outpatient Skylar-Will MHMG MHMG [id number] 13:30:00 13:30:00 Adela brewer 2019-07-16 2019-07-18 Outpatient U TARAH [facility] NO [id number] Univers 13:36:00 12:15:00 VIC [facility] 2019-06-30 2019-07-04 Inpatient X JUAN JOSE [facility] NO [id number] Univers 17:39:25 13:45:00 MARIVEL [facility] 2019-04-20 2019-04-21 Emergency X ELFEGO [facility] ERT [id number] Univers 19:26:38 00:10:00 NISHA [facility] 2019-02-14 2019-02-19 Inpatient X [place]EE[place] [facility] [place] [place] [id number] Univers 13:52:02 12:14:00 [facility] 2019-01-21 2019-01-22 Outpatient X MITZI, [facility] NO [id number] Univers 18:13:19 12:17:00 ISAAC [facility] 2018-09-05 2018-09-05 Emergency X GENESIS [facility] ERT [id number] Univers 15:33:18 23:07:00 STEVEN [facility] 2007-04-06 2007-04-06 Outpatient [facility] [id number] Univers 00:00:00 14:24:00 4 [facility] 2007-03-05 2007-03-05 Outpatient [facility] [id number] Univers 00:00:00 16:59:00 6 [facility] Results Test Description Test Time [...] 32.0 g/dL 31.6-35.1 RDW-SD (test code = 32748-4) 50.4 fL 39.0-49.9 H RDW-CV (test code = 788-0) 16.0 % 12.0-15.5 H PLT (test code = 777-3) 45 See_Comment LL [Au tomated message] The system which ge nerated this result transmit gaby reference range: 166 - 35 8 10*3/?L. The reference range was not used to interpret th is result as normal/abnormal . MPV (test code = 02739-1) No t Measured IPF % (test code = 6.6 % 1.3-7.7 Platelet count measured by [id number]) fluorescence me thod. NRBC/100 WBC (test code = 0.0 See_Comment [ Automated message] The [id number]) system which [employer] nerated this result transmit gaby reference range: 0.0 - 10 .0 /100 WBCs. The reference r mago was not used to interpr et this result as normal/abnor mal. NRBC x10^3 (test code = See_Comment [Au tomated message] The 2279262723) system which [employer] nerated this result transmit gaby reference range: 10*3/?L. The reference range was not u sed to interpret this result as normal/abnormal . GRAN MAT (NEUT) % (test code 66.1 % = 770-8) IMM GRAN % (test code = 0.80 % 9911111096) LYMPH % (test code = 736-9) 21.7 % MONO % (test code = 5905-5) 9.1 % EOS % (test code = 713-8) 2.1 % BASO % (test code = 706-2) 0.2 % GRAN MAT x10^3(ANC) (test 3.51 10*3/uL 1.88-7.09 code = 9649800579) IMM GRAN x10^3 (test code = 0.04 10*3/uL 0.00-0.06 5094079076) LYMPH x10^3 (test code = 1.15 10*3/uL 1.32-3.29 L 731-0) MONO x10^3 (test code = 0.48 10*3/uL 0.33-0.92 742-7) EOS x10^3 (test code = 0.11 10*3/uL 0.03-0.39 711-2) BASO x10^3 (test code = 0.01-0.07 704-7) ELLIPTO/OVAL (test code = 2+ See_Comment A [ Automated message] The 63519-2) system which [employer] nerated this result transmit gaby reference range: (none). The reference range was not u sed to interpret this result as normal/abnormal . POLYCHROMASIA (test code = 2+ See_Comment [Automated message] The 78724-6) system which [employer] nerated this result transmit gaby reference range: 2+. The reference range was not u sed to interpret this result as normal/abnormal . SCHISTOCYTES (test code = 1+ A 800-3) SPHEROCYTES (test code = 1+ A 802-9) Lab Interpretation (test Abnormal code = 68200-7) [facility]. METABOLIC PANEL (22552)2022-08-29 19:03:20 Test Item Value Reference Range Interpretation Comments NA (test code = 142 mmol/L 135-145 0957177503) K (test code = 4.2 mmol/L 3.5-5.0 4297827210) CL (test code = 107 mmol/L 98-108 2390635867) CO2 TOTAL (test code = 25 mmol/L 23-31 2164853458) AGAP (test code = 10 2-16 3276485970) BUN (test code = 8 mg/dL 7-23 1319098770) GLUCOSE (test code = 222 mg/dL 70-110 H 0467756782) CREATININE (test code = 0.62 mg/dL 0.50-1.04 1762653934) TOTAL BILI (test code = 1.3 mg/dL 0.1-1.1 H 8441426465) CALCIUM (test code = 9.1 mg/dL 8.6-10.6 9989253179) T PROTEIN (test code = 7.7 g/dL 6.3-8.2 4070151259) ALBUMIN (test code = 4.2 g/dL 3.5-5.0 9529646617) ALK PHOS (test code = 65 U/L 34-122 9224565321) ALTv (test code = 36 U/L 5-35 H 1742-6) AST(SGOT) (test code = 59 U/L 13-40 H 5909603501) eGFR (test code = 100.3 mL/min/1.73m2 9162954895) JULIAN (test code = JULIAN) Association of [...] tests). Lab Interpretation Abnormal (test code = 76969-1) [facility] Test Item Value Reference Range Interpretation Comments LIPASE (test code = 2867074697) 298 U/L 0-220 H Lab Interpretation (test code = Abnormal 36521-1) [facility] + LACTIC [id number] 18:03:45 Test Item Value Reference Range Interpretation Comments PH (test code = 7.40 7.32-7.42 4590912380) PCO2 TEDDY (test code = 39 See_Comment L [Auto mated [id number]) message] The sy stem which generated this result transmitted reference range : 41 - 51 mmHg. The reference range was not used to interpret this result as normal/abnormal . PO2 TEDDY (test code = 38 See_Comment [Autom ated [id number]) message] The sy stem which generated this result transmitted reference range : 25 - 40 mmHg. The reference range was not used to interpret this result as normal/abnormal . HCO3 TEDDY (test code = 24 See_Comment [Auto mated 1648730551) message] The sy stem which generated this result transmitted reference range : 24 - 28 mEq/L. The reference range was not used to interpret this result as normal/abnormal . AC VBE(BEAKER) (test -0.5 mEq/L code = 4218478439) THB TEDDY (test code = 8.6 g/dL 12.0-16.0 L 4765820628) %O2HB TEDDY (test code = 82.3 % 52.0-63.0 H 5348264013) %COHB TEDDY (test code = 0.6 % 0.0-1.5 7654206369) %METHB TEDDY (test code = 0.1 % 0.4-1.5 L 8794220630) VOL%O2 TEDDY (test code = Not resulted. 9924646279) NA (test code = 143 mmol/L 135-145 4781444091) K+ (test code = 3.8 mmol/L 3.5-5.0 8410111769) AC CA IONZ (test code = 4.90 mg/dL 4.50-5.30 [id number]) GLUCOSE (test code = 230 mg/dL 70-110 H [id number]) LACTIC ACID (test code 2.35 mmol/L 0.50-2.20 H COOXE RR = [id number]) Lab Interpretation Abnormal (test code = 21554-7) [facility] [id number] 18:17:00 Test Item Value Reference Range Interpretation [...] not appl icable for dialysis patien ts Shuttle Inspector ID - ADMINPT/[id number] 16:56:46 Test Item Value Reference Range Interpretation [...] mechanical heart valves.CBC W/PLT COUNT & AUTO [id number] 16:45:03 Test Item Value Reference Range Interpretation [...] = 2801) RAD, FOOT, MIN 3 VIEWS, [id number] 20:02:00Reason for exam:->ABNORMAL LAB [facility] : 1965 Sex: FFINALREPORT CLINICAL HISTORY: Abnormal lab 3 images of the left foot are submitted without comparison. There is no acute fracture or malalignment. No destructive osseous lesion or radiopaque foreign body is present. Signed: Hi Crowley MDReport Verified Date/Time: 02/15/2022 20:02:45 HIGH SENSITIVITY TROPONIN [id number] 19:45:17 Test Item Value Reference Range Interpretation Comments HIGH SENSITIVITY < pg/ml See_Comment [Automated message] TROPONIN I (test code = The system which [id number]) generated this result transmitted ref erence range: <=17. Th e reference range was not used to interpr et this result as normal/abnormal . Shuttle Inspector ID - BSThe LEARNING COORDINATOR STAT High Sensitivity Troponin-I results should be used in conjunctionwith other diagnostic information such as ECG, clinical observations and information, and patient symptoms to aid in the diagnosis of VT.B-TYPE NATRIURETIC FACTOR (BNP)2022-02-15 19:45:16 Test Item Value Reference Range Interpretation Comments B-TYPE NATRIURETIC PEPTIDE (BEAKER) 64 pg/mL 0-100 (test code = 700) Shuttle Inspector ID - BSBASIC METABOLIC [id number] 19:41:54 Test Item Value Reference Range Interpretation [...] eGFR (test code = mL/min/1.73 values Stage D escription 1092) sq m Result G1 Hortensia l [...] not appl icable for dialysis patien ts Shuttle Inspector ID - BSHEPATIC FUNCTION [id number] 19:41:54 Test Item Value Reference Range Interpretation [...] code = 98 U/L 6-55 H 347) Shuttle Inspector ID - [id number] 19:41:54 Test Item Value Reference Range Interpretation Comments LIPASE (BEAKER) (test code = 749) 81 U/L 8-78 H Shuttle Inspector ID - BSPT/[id number] 19:31:34 Test Item Value Reference Range Interpretation [...] 2.5-3.5 for patients with mechanical heart valves.PROTHROMBIN TIME/[id number] 19:30:50 Test Item Value Reference Range Interpretation Comments PROTIME (BEAKER) 15.3 seconds 11.9-14.2 H (test code = 759) INR (BEAKER) (test 1.28 See_Comment [Automat ed message] code = 370) The system [employer] h generated this result transmitted ref erence range: <=5.90. The reference range was not used to int erpret this result as normal/abnormal . RECOMMENDED COUMADIN/WARFARIN INR THERAPY RANGESSTANDARD DOSE: 2.0 - 3.0 Includes: PROPHYLAXIS for venous thrombosis, systemic embolization; TREATMENT for venous thrombosis and/or pulmonary embolus.HIGH RISK: Target INR is 2.5-3.5 for patients with mechanical heart valves.CBC W/PLT COUNT & AUTO [id number] 19:23:47 Test Item Value Reference Range Interpretation [...] PERCENT (BEAKER) (test code = 2801) BLOOD [id number] 21:00:55 Test Item Value Reference Range Interpretation Comments CULTURE (BEAKER) (test No growth in 5 days code = 1095) The specimen volume collected for this blood culture was below the optimum (10 mL per bottle or 20 mL total). Use of lower volumes may adversely affect recovery and/or detection times of some organisms.BLOOD [id number] 21:00:55 Test Item Value Reference Range Interpretation Comments CULTURE (BEAKER) (test No growth in 5 days code = 1095) BLOOD [id number] 18:00:48 Test Item Value Reference Range Interpretation Comments CULTURE (BEAKER) (test No growth in 5 days code = 1095) The specimen volume collected for this blood culture was below the optimum (10 mL per bottle or 20 mL total). Use of lower volumes may adversely affect recovery and/or detection times of some organisms.BLOOD [id number] 18:00:48 Test Item Value Reference Range Interpretation Comments CULTURE (BEAKER) (test No growth in 5 days code = 1095) The specimen volume collected for this blood culture was below the optimum (10 mL per bottle or 20 mL total). Use of lower volumes may adversely affect recovery and/or detection times of some organisms.HEMOGLOBIN [id number] 08:29:58 Test Item Value Reference Range Interpretation Comments HEMOGLOBIN A1C 7.3 % See_Comment H [Automated m essage] ELECTROPHORESIS (BEAKER) The system which (test code = 3811) generated this result transmitted ref erence range: <=5.6%. The reference range was not used to int erpret this result as normal/abnormal . "The A1c is measured using a NGSP-certified method. HbA1c value equal to or greater than 6.5% as thediagnosis cutoff for diabetes. An HbA1c value of 5.7- 6.4% indicates increased risk for diabetes (prediabetes)."Shuttle Inspector ID - ADMCBC W/PLT COUNT & AUTO [id number] 04:43:44 Test Item Value Reference Range Interpretation [...] PERCENT (BEAKER) (test code = 2801) POC-Glucose [id number] 22:21:07 Test Item Value Reference Range Interpretation Comments POC-Glucose Meter (test 214 mg/dL 70-110 H : TE STED AT [facility] code = 1538) [address] [facility], 770 30: Shuttle Inspector/Techni sanjeev ID = [id number] for BRANDAN CARBAJAL EY Lab Interpretation (test Abnormal code = 20763-0) [facility] [id number] 22:21:07 Test Item Value Reference Range Interpretation Comments POC-GLUCOSE METER 214 mg/dL 70-110 H : TESTED A T [facility] 6720 (BEAKER) (test code = MICHEL Royal [place], 1538) [address]: Shuttle Inspector/Techni sanjeev ID = [id number] for NGOZI HAYNES CBC W/PLT COUNT & AUTO [id number] 15:54:31 Test Item Value Reference Range Interpretation [...] (BEAKER) (test code = 2801) CT, CTA [id number] 11:04:00GI protocolUnlisted Reason for Exam - Click Yes and Enter Reason Below->YesUnlisted Reason for Exam->Abdominal pain [facility] : 1965 Sex: FFINALREPORT TECHNIQUE: [...] MDReport Verified Date/Time: 01/31/2022 11:04:04 Reading Location: [facility] C013Y CT Body Reading Room POCT-GLUCOSE [id number] 10:05:22 Test Item Value Reference Range Interpretation Comments POC-GLUCOSE METER 189 mg/dL 70-110 H : TESTED A T [facility] 6720 (BEAKER) (test code = MICHEL Royal [place], 1538) [address]: Shuttle Inspector/Techni sanjeev ID = [id number] for TO RREG, SEPTEMBER U/S, ABDOMINAL, [id number] 09:27:00Labs to be ordered:->Body Fluid Culture (w/Gram Stain, C\\T\\S) Labs to be ordered:->Cell Count Reason for exam:->abdominal distention, fever, cirrhosis [facility] : 1965 Sex: FFINALREPORT [...] Villafana Verified Date/Time: 01/31/2022 09:27:38 Reading Location: [address] Ultrasound Reading Room COMPREHENSIVE METABOLIC [id number] 06:48:48 Test Item Value Reference Range Interpretation [...] not appl icable for dialysis patien ts Shuttle Inspector ID - MAGDIEL MPROTHROMBIN TIME/[id number] 05:27:08 Test Item Value Reference Range Interpretation Comments PROTIME (BEAKER) 16.0 seconds 11.9-14.2 H (test code = 759) INR (BEAKER) (test 1.30 See_Comment [Automat ed message] code = 370) The system [employer] generated this result transmitted ref erence range: <=5.90. The reference range was not used to int erpret this result as normal/abnormal . RECOMMENDED COUMADIN/WARFARIN INR THERAPY RANGESSTANDARD DOSE: 2.0 - 3.0 Includes: PROPHYLAXIS for venous thrombosis, systemic embolization; TREATMENT for venous thrombosis and/or pulmonary embolus.HIGH RISK: Target INR is 2.5-3.5 for patients with mechanical heart valves.CBC W/PLT COUNT & AUTO [id number] 05:24:23 Test Item Value Reference Range Interpretation [...] = 2801) RAD, CHEST, 1 VIEW, NON [id number] 22:17:00Reason for exam:->feverShould this be performed at the bedside?->Yes [facility] : 1965 Sex: FFINALREPORT [...] Catalan MDReport Verified Date/Time: 01/29/2022 22:17:14 VITAMIN [id number] 06:18:30 Test Item Value Reference Range Interpretation Comments VITAMIN B12 (BEAKER) (test code = 430 pg/mL 213816 774) Shuttle Inspector ID - DENA [id number] 06:18:30 Test Item Value Reference Range Interpretation Comments FERRITIN (BEAKER) (test code = 11.30 ng/mL 5.00-275.00 361) Shuttle Inspector ID - DENA LBASIC METABOLIC [id number] 06:10:41 Test Item Value Reference Range Interpretation [...] not appl icable for dialysis patien ts Shuttle Inspector ID Joaquin ROMAN, TIBC, % SAT. (WITHOUT FERRITIN)2022-01-29 06:04:58 Test Item Value Reference Range Interpretation Comments IRON (BEAKER) (test code = 547) 49.0 ug/dL 40.0-160.0 TOTAL IRON BINDING CAPACITY 398 ug/dL 250-450 (BEAKER) (test code = 769) IRON % SATURATION (2) (BEAKER) 12 % 20-55 L (test code = 2590) Shuttle Inspector YOSEF FERNANDES LCBC W/PLT COUNT & AUTO [id number] 05:35:36 Test Item Value Reference Range Interpretation [...] SARS-Co V-2 (test code = target nucleic 10556-0) acids are not detected in thi s [...] SARS-CoV-2 in a nasopharyngeal swab specimen collec gbay from individual s suspected of COVID-19 by [...] revoked sooner. Fact Sheet for Healthcare Providers: https://www.[employer]/Documents/Xp ert%20Xpress%20SAR S%20CoV-2/Fact%20S heets/302-3802%20S ARS-COV-2%20HEALTH CARE%20PROVIDERS%2 0FACT%20SHEET.pdf Fact Sheet for Healthcare Patients: https://www.[employer]/Documents/Xp ert%20Xpress%20SAR S%20CoV-2/Fact%20S heets/302-3801%20S ARS-COV-2%20PATIEN T%20FACT%20SHEET.p df Lab Interpretation Normal (test code = 84145-4) [facility])2022-01-28 22:48:12 Test Item Value Reference Range Interpretation Comments SARS-COV2/RT-PCR Negative Negative The SARS-Co V-2 target (test code = nucleic acids a re not 7225842) detected in thi s specimen. Negative result [...] individuals suspected of CO VID-19 by [facility]. This test has been [...] revoked sooner. Fact Sheet for Healthcare Providers: https://www.[employer]/Documents/Xpert%20Xpress%20SARS%20CoV-2/Fact%20Sheets/302-3802%95PPBE-DLC-6%2 0HEALTHCARE%20PROVIDERS%20FACT%20SHEET.pdf Fact Sheet for Healthcare Patients: https://www.[employer]/Documents/Xpert%20X press%20SARS%20CoV-2/Fact%20Sheets/302-3801%95PROX-SWV-7%20PATIENT%20FACT%20SHEE T.pdfLACTIC ACID, [id number] 21:19:53 Test Item Value Reference Range Interpretation Comments LACTATE BLOOD VENOUS (2) (BEAKER) 2.20 mmol/L 0.50-2.20 (test code = 2872) Shuttle Inspector ID - BSCOMPREHENSIVE METABOLIC [id number] 18:06:50 Test Item Value Reference Range Interpretation [...] eGFR (test code = 1092) mL/min/1.73 values S tage Description sq m Result G1 Hortensia l [...] not appl icable for dialysis patien ts Shuttle Inspector ID - BSLACTIC ACID, [id number] 18:01:50 Test Item Value Reference Range Interpretation Comments LACTATE BLOOD VENOUS 2.25 mmol/L 0.50-2.20 H Specime n moderately (2) (BEAKER) (test hemolyzed code = 3556) Shuttle Inspector ID - BSCBC W/PLT COUNT & AUTO [id number] 17:47:02 Test Item Value Reference Range Interpretation [...] GRANULOCYTES-RELATIVE PERCENT (BEAKER) (test code = 2801) [id number] 17:40:44 Test Item Value Reference Range Interpretation Comments PARTIAL THROMBOPLASTIN TIME 31.5 seconds 22.5-36.0 (BEAKER) (test code = 760) PROTHROMBIN TIME/[id number] 17:39:43 Test Item Value Reference Range Interpretation Comments PROTIME (BEAKER) 15.1 seconds 11.9-14.2 H (test code = 759) INR (BEAKER) (test 1.21 See_Comment [Automat ed message] code = 370) The system [employer] generated this result transmitted ref erence range: <=5.90. The reference range was not used to int erpret this result as normal/abnormal . RECOMMENDED COUMADIN/WARFARIN INR THERAPY RANGESSTANDARD DOSE: 2.0 - 3.0 Includes: PROPHYLAXIS for venous thrombosis, systemic embolization; TREATMENT for venous thrombosis and/or pulmonary embolus.HIGH RISK: Target INR is 2.5-3.5 for patients with mechanical heart valves.BASIC METABOLIC [id number] 13:59:19 Test Item Value Reference Range Interpretation [...] not appl icable for dialysis patien ts Shuttle Inspector ID - ASTRID GHEPATIC FUNCTION [id number] 13:59:19 Test Item Value Reference Range Interpretation [...] (test code = 31 U/L 6-55 347) Shuttle Inspector ID - ASTRID GPROTHROMBIN TIME/[id number] 13:30:02 Test Item Value Reference Range Interpretation Comments PROTIME (BEAKER) 15.4 seconds 11.9-14.2 H (test code = 759) INR (BEAKER) (test 1.30 See_Comment [Automat ed message] code = 370) The system [employer] generated this result transmitted ref erence range: <=5.90. The reference range was not used to int erpret this result as normal/abnormal . RECOMMENDED COUMADIN/WARFARIN INR THERAPY RANGESSTANDARD DOSE: 2.0 - 3.0 Includes: PROPHYLAXIS for venous thrombosis, systemic embolization; TREATMENT for venous thrombosis and/or pulmonary embolus.HIGH RISK: Target INR is 2.5-3.5 for patients with mechanical heart valves.CBC W/PLT COUNT & AUTO [id number] 13:26:02 Test Item Value Reference Range Interpretation [...] PERCENT (BEAKER) (test code = 2801) POCT-GLUCOSE [id number] 11:38:23 Test Item Value Reference Range Interpretation Comments POC-GLUCOSE METER 161 mg/dL 70-110 H : TESTED A [facility] 7200 (BEEDISON) (test code DANIA Vasquez, = 1538) [facility] 7703 0: Shuttle Inspector/Techni sanjeev ID = [id number] for DEON ASH MR, ABDOMEN, [id number] 15:19:00with liver protocolwith liver protocolUnlisted Reason for Exam - Click Yes and Enter Reason Below-&gt ;YesUnlisted Reason for Exam->Cirrhosis, evaluate liver, rule out liver mass, lesion. Please do with liver protocolwith liver protocol [facility] : 1965 Sex: FFINALREPORT TECHNIQUE: [...] MDReport Verified Date/Time: 10/04/2021 15:19:15 Reading Location: [facility] Diagnostic Imaging Reading Room - [place] [address] ALPHA FETOPROTEIN (AFP), TUMOR [id number] 13:11:37 Test Item Value Reference Range Interpretation Comments ALPHA-FETOPROTEIN (BEAKER) (test 3.3 ng/mL <10.0 code = 1094) Shuttle Inspector ID - DBBASIC METABOLIC [id number] 12:58:54 Test Item Value Reference Range Interpretation [...] S NOT APPLICABLE FOR DIALYSIS PATIEN TS. Shuttle Inspector ID - BRADY CHEPATIC FUNCTION [id number] 12:58:54 Test Item Value Reference Range Interpretation [...] (test code = 21 U/L 6-55 347) Shuttle Inspector ID - BRADY CPROTHROMBIN TIME/[id number] 12:49:27 Test Item Value Reference Range Interpretation Comments PROTIME (BEAKER) 14.9 seconds 11.9-14.2 H (test code = 759) INR (BEAKER) (test 1.19 See_Comment [Automat ed message] code = 370) The system [employer] generated this result transmitted ref erence range: <=5.90. The reference range was not used to int erpret this result as normal/abnormal . RECOMMENDED COUMADIN/WARFARIN INR THERAPY RANGESSTANDARD DOSE: 2.0 - 3.0 Includes: PROPHYLAXIS for venous thrombosis, systemic embolization; TREATMENT for venous thrombosis and/or pulmonary embolus.HIGH RISK: Target INR is 2.5-3.5 for patients with mechanical heart valves.CBC W/PLT COUNT & AUTO [id number] 12:45:28 Test Item Value Reference Range Interpretation [...] PERCENT (BEAKER) (test code = 2801) BLOOD [id number] 01:01:00 Test Item Value Reference Range Interpretation Comments CULTURE (BEAKER) (test No growth in 5 days code = 1095) The specimen volume collected for this blood culture was below the optimum (10 mL per bottle or 20 mL total). Use of lower volumes may adversely affect recovery and/or detection times of some organisms.BLOOD [id number] 01:01:00 Test Item Value Reference Range Interpretation Comments CULTURE (BEAKER) (test No growth in 5 days code = 1095) The specimen volume collected for this blood culture was below the optimum (10 mL per bottle or 20 mL total). Use of lower volumes may adversely affect recovery and/or detection times of some organisms.POCT-GLUCOSE [id number] 09:58:16 Test Item Value Reference Range Interpretation Comments POC-GLUCOSE METER 170 mg/dL 70-110 H : TESTED A T [facility] 6720 (BEAKER) (test code = MICHEL Lele [place], 1538) [address]: Shuttle Inspector/Techni sanjeev ID = [id number] for Renetta Auguste COMPREHENSIVE METABOLIC [id number] 07:04:36 Test Item Value Reference Range Interpretation [...] S NOT APPLICABLE FOR DIALYSIS PATIEN TS. Shuttle Inspector ID - [id number] 07:04:36 Test Item Value Reference Range Interpretation Comments MAGNESIUM (BEAKER) (test code = 1.6 mg/dL 1.6-2.6 627) Shuttle Inspector ID - BSPROTHROMBIN TIME/[id number] 06:50:36 Test Item Value Reference Range Interpretation Comments PROTIME (BEAKER) 15.9 seconds 11.9-14.2 H (test code = 759) INR (BEAKER) (test 1.29 See_Comment [Automat ed message] code = 370) The system [employer] generated this result transmitted ref erence range: [...] 0-0 (test code = 413) U/S, ABDOMINAL, [id number] 17:55:00Abdomen limited area? Add comment if clarification is needed.->LiverReason for exam:->perform with doppler to evaluate portal vein patency; evaluating for possible portal cholangiopathy and related thrombosis [facility] : 1965 [...] evidence for acute cholecystitis. Signed: Isaac Mccauley MDRtri Verified Date/Time: 09/05/2021 17:55:29 U/S, DUPLEX, [id number] 17:55:00Reason for exam:->perform with doppler to evaluate portal vein patency; evaluating for possible portal cholangiopathy and related thrombosis [facility] : 1965 Sex: FFINALREPORT CLINICAL [...] Isaac Mccauley Verified Date/Time: 09/05/2021 17:55:29 HEPATOBILIARY [id number] 17:15:00Unlisted Reason for Exam - Click Yes and Enter Reason Below->YesUnlisted Reason for Exam->Evalfor cholecystitis [facility] : 1965 Sex: FFINALREPORT PROCEDURE: HEPATOBILIARY SCAN (unstimulated) CPT CODE: 19584 INDICATION:Abdominal pain PROTOCOL: 5.4 mCi of Tc-99m mebrofenin was injected intravenously. Images of the upper abdomen were obtained for approximately 70 minutes after tracer injection. FINDINGS: Initial tracer uptake into the liver is physiological. Subsequent tracer clearance from the liver is mildly delayed. There is good visualization of the extrahepatic biliary duct and the gallbladder, and the tracer appears appropriately in the small bowel. IMPRESSION:1. Diffuse hepatocellular dysfunction.2. Otherwise normal hepatobiliary scan. No evidence of acute cholecystitis. Signed: Ricky Hendrix MDReport Verified Date/Time: 09/05/2021 17:15:06 URINALYSIS W/ REFLEX URINE [id number] 15:47:29 Test Item Value Reference Range Interpretation [...] = 1521) SOURCE(BEAKER) (test code = 2795) Shuttle Inspector ID - [auto]Shuttle Inspector ID - techCT, CHEST WITH IV CONTRAST- PE TEST DESIGN 2021-09-05 03:12:00Unlisted Reason for Exam - Click Yes and Enter Reason Below->No[facility] : 1965 [...] evaluation with HIDA scan. Signed: Gregorio Cook [facility] Verified Date/Time: 09/05/2021 03:12:52 CT, [id number] 03:12:00Unlisted Reason for Exam - Click Yes and Enter Reason Below->NoIs this for enterography?->NoWill this procedure require oral contrast?->No [facility] : 1965 Sex: [...] Gregorio Cook Verified Date/Time: 09/05/2021 03:12:52 SARS-COV2/RT-PCR ([facility])2021-09-05 01:09:11 Test Item Value Reference Range Interpretation Comments SARS-COV2/RT-PCR Negative Negative The SARS-Co V-2 target (test code = nucleic acids a re not 6714618) detected in thi s specimen. Negative result [...] revoked sooner. Fact Sheet for Healthcare Providers: https://www.[employer] m/Documents/Xpert%20Xpress%20SARS%20CoV-2/Fact%20Sheets/3023802%12GSMD-YTC-4%20 HEALTHCARE%20PROVIDERS%20FACT%20SHEET.pdf Fact Sheet for Healthcare Patients: https://www.[employer]/Documents/Xpert%20Xp ress%20SARS%20CoV-2/Fact%20Sheets/3023801%00PVMQ-GPT-1%20PATIENT%20FACT%20SHEET .pdfTSH/FREE T4 IF [id number] 00:56:26 Test Item Value Reference Range Interpretation Comments THYROID STIMULATING HORMONE 3.139 uIU/mL 0.350-4.940 (BEAKER) (test code = 772) Shuttle Inspector ID - BSHIGH SENSITIVITY TROPONIN [id number] 00:41:40 Test Item Value Reference Range Interpretation Comments HIGH SENSITIVITY < pg/ml See_Comment [Automated message] TROPONIN I (test code = The system which 7808167) generated this result transmitted ref erence range: <=17. Th e reference range was not used to interpr et this result as normal/abnormal . Shuttle Inspector ID - BSThe LEARNING COORDINATOR STAT High Sensitivity Troponin-I results should be used in conjunctionwith other diagnostic information such as ECG, clinical observations and information, and patient symptoms to aid in the diagnosis of VT.B-TYPE NATRIURETIC FACTOR (BNP)2021-09-05 00:40:21 Test Item Value Reference Range Interpretation Comments B-TYPE NATRIURETIC PEPTIDE (BEAKER) 30 pg/mL 0-100 (test code = 700) Shuttle Inspector ID - [id number] 00:36:01 Test Item Value Reference Range Interpretation Comments LIPASE (BEAKER) (test code = 749) 112 U/L 8-78 H Shuttle Inspector ID - BSCOMPREHENSIVE METABOLIC [id number] 00:36:00 Test Item Value Reference Range Interpretation [...] S NOT APPLICABLE FOR DIALYSIS PATIEN TS. Shuttle Inspector ID - [id number] 00:36:00 Test Item Value Reference Range Interpretation Comments MAGNESIUM (BEAKER) (test code = 1.6 mg/dL 1.6-2.6 627) Shuttle Inspector ID - BSLACTIC ACID, [id number] 00:28:36 Test Item Value Reference Range Interpretation Comments LACTATE BLOOD VENOUS (2) (BEAKER) 1.31 mmol/L 0.50-2.20 (test code = 2872) Shuttle Inspector ID - [id number] 00:11:19 Test Item Value Reference Range Interpretation [...] within 95-100% range.RAD, CHEST, 1 VIEW, NON [id number] 00:10:00Reason for exam:->ABDOMINAL PAINReason for exam:->RECTAL BLEEDINGShould this be performed at the bedside?->Yes[facility] : 1965 Sex: FFINALREPORT RAD, CHEST, 1 VIEW, NON DEPT CLINICAL HISTORY: ABDOMINAL PAINRECTAL BLEEDING TECHNIQUE: Single view of the chest. COMPARISON: August 12, 2021 IMPRESSION: There are no focal infiltrates or effusions. No pneumothorax. The cardiomediastinal silhouette is unremarkable for AP technique. The osseous structures appear intact. Signed: Tre Cooper Verified Date/Time: 09/05/2021 00:10:29 PROTHROMBIN TIME/[id number] 00:08:40 Test Item Value Reference Range Interpretation Comments PROTIME (BEAKER) 15.5 seconds 11.9-14.2 H (test code = 759) INR (BEAKER) (test 1.25 See_Comment [Automat ed message] code = 370) The system [employer] generated this result transmitted ref erence range: <=5.90. The reference range was not used to int erpret this result as normal/abnormal . RECOMMENDED COUMADIN/WARFARIN INR THERAPY RANGESSTANDARD DOSE: 2.0 - 3.0 Includes: PROPHYLAXIS for venous thrombosis, systemic embolization; TREATMENT for venous thrombosis and/or pulmonary embolus.HIGH RISK: Target INR is 2.5-3.5 for patients with mechanical heart valves.CBC W/PLT COUNT & AUTO [id number] 00:03:36 Test Item Value Reference Range Interpretation [...] code = 2801) URINALYSIS W/ REFLEX URINE [id number] 21:37:32 Test Item Value Reference Range Interpretation [...] = 1521) SOURCE(BEAKER) (test code = 2795) Shuttle Inspector ID - [auto]Shuttle Inspector ID - techCT, CHEST WITH IV CONTRAST- PE TEST DESIGN 2021-08-12 21:29:00Unlisted Reason for Exam - Click Yes and Enter Reason Below->[facility]LE[facility]ON : 1965 [...] MDReport Verified Date/Time: 08/12/2021 21:29:40 SENSITIVITY TROPONIN [id number] 20:29:42 Test Item Value Reference Range Interpretation Comments HIGH SENSITIVITY < pg/ml See_Comment [Automated message] TROPONIN I (test code = The system which [id number]) generated this result transmitted ref erence range: <=17. Th e reference range was not used to interpr et this result as normal/abnormal . Shuttle Inspector ID - DBThe LEARNING COORDINATOR STAT High Sensitivity Troponin-I results should be used in conjunctionwith other diagnostic information such as ECG, clinical observations and information, and patient symptoms to aid in the diagnosis of VT.SARS-COV2/RT-PCR ([facility])2021-08-12 18:48:38 Test Item Value Reference Range Interpretation Comments SARS-COV2/RT-PCR Negative Negative The SARS-Co V-2 target (test code = nucleic acids a re not [id number]) detected in thi s specimen. Negative result [...] revoked sooner. Fact Sheet for Healthcare Providers: https://www.[employer] m/Documents/Xpert%20Xpress%20SARS%20CoV-2/Fact%20Sheets/302-3802%28PETM-TRC-8%20 HEALTHCARE%20PROVIDERS%20FACT%20SHEET.pdf Fact Sheet for Healthcare Patients: https://www.[employer]/Documents/Xpert%20Xp ress%20SARS%20CoV-2/Fact%20Sheets/3023801%19XUZY-MXF-5%20PATIENT%20FACT%20SHEET .mkuF-[id number] 17:19:51 Test Item Value Reference Range Interpretation [...] exclusion of thrombosis is within 95-100% range. PT/[id number] 17:17:52 Test Item Value Reference Range Interpretation [...] mechanical heart valves.RAD, CHEST, 1 VIEW, NON [id number] 17:15:00Reason for exam:->CHEST PAINShould this be performed at the bedside?->Yes[facility] : 1965 Sex: FFINALREPORT INDICATION: CHEST PAIN COMPARISON: 04/11/21 TECHNIQUE: Single frontal view of the chest. FINDINGS: Lungs and pleura: Clear lungs. No effusion.Heart and mediastinum: Normal heart size. Unremarkable mediastinal contours.Osseous structures: No acute abnormality.Other: None. IMPRESSION: No acute intrathoracic abnormality. Signed: Romina Salamanca [facility] Verified Date/Time: 08/12/2021 17:15:07 B-TYPE NATRIURETIC FACTOR (BNP)2021-08-12 17:08:30 Test Item Value Reference Range Interpretation Comments B-TYPE NATRIURETIC PEPTIDE (PELONAKER) 215 pg/mL 0-100 H (test code = 700) Shuttle Inspector ID - PIAYA LHIGH SENSITIVITY TROPONIN [id number] 17:08:09 Test Item Value Reference Range Interpretation Comments HIGH SENSITIVITY < pg/ml See_Comment [Automated message] TROPONIN I (test code = The system which [id number]) generated this result transmitted ref erence range: <=17. Th e reference range was not used to interpr et this result as normal/abnormal . Shuttle Inspector ID - PIAYA LThe LEARNING COORDINATOR STAT High Sensitivity Troponin-I results should be used in conjunction with other diagnostic information such as ECG, clinical observations and information, and patient symptoms to aid in the diagnosis of VT.COMPREHENSIVE METABOLIC [id number] 17:02:31 Test Item Value Reference Range Interpretation [...] S NOT APPLICABLE FOR DIALYSIS PATIEN TS. Shuttle Inspector ID - PIAYA [id number] 17:02:31 Test Item Value Reference Range Interpretation Comments MAGNESIUM (BEAKER) (test code = 1.7 mg/dL 1.6-2.6 627) Shuttle Inspector ID - DENA [id number] 17:02:31 Test Item Value Reference Range Interpretation Comments LIPASE (BEAKER) (test code = 749) 119 U/L 8-78 H Shuttle Inspector ID - DENA [id number] 16:59:45 Test Item Value Reference Range Interpretation Comments AMMONIA (BEAKER) (test 67 mol/L 18-72 Speci men slightly code = 348) hemolyzed Shuttle Inspector ID - DENA LCBC W/PLT COUNT & AUTO [id number] 16:48:21 Test Item Value Reference Range Interpretation [...] = 2801) CBC W/PLT COUNT & AUTO [id number] 13:19:26 Test Item Value Reference Range Interpretation [...] (BEAKER) (test code = 2801) BASIC METABOLIC [id number] 13:08:56 Test Item Value Reference Range Interpretation [...] S NOT APPLICABLE FOR DIALYSIS PATIEN TS. Shuttle Inspector ID - MARCUS WHEPATIC FUNCTION [id number] 13:08:56 Test Item Value Reference Range Interpretation [...] (test code = 32 U/L 6-55 347) Shuttle Inspector ID Joaquin VELAZQUEZ WPROTHROMBIN TIME/[id number] 13:08:35 Test Item Value Reference Range Interpretation Comments PROTIME (BEAKER) 14.9 seconds 11.9-14.2 H (test code = 759) INR (BEAKER) (test 1.19 See_Comment [Automat ed message] code = 370) The system [employer] generated this result transmitted ref erence range: <=5.90. The reference range was not used to int erpret this result as normal/abnormal . RECOMMENDED COUMADIN/WARFARIN INR THERAPY RANGESSTANDARD DOSE: 2.0 - 3.0 Includes: PROPHYLAXIS for venous thrombosis, systemic embolization; TREATMENT for venous thrombosis and/or pulmonary embolus.HIGH RISK: Target INR is 2.5-3.5 for patients with mechanical heart valves.BLOOD GAS, [id number] 11:39:25 Test Item Value Reference Range Interpretation [...] code = 1819) 21.0 DRUG SCREEN, URINE, [id number] 09:02:51 Test Item Value Reference Range Interpretation Comments SCAN RESULT (test code = See scanned result [id number]) See scanned resultMR, ABDOMEN, [id number] 14:20:00Unlisted Reason for Exam - Click Yes and Enter Reason Below->YesUnlisted Reason for Exam->cirrhosis [facility] : 1965 Sex: FFINALREPORT [...] Damon Cormier Verified Date/Time: 04/18/2021 14:20:11 Reading Location:[facility] Diagnostic Imaging Reading Room - [place] [address] ELLANEOUS LAB [id number] 08:34:53 Test Item Value Reference Range Interpretation Comments SCAN RESULT (test code = see scanned result [id number]) see scanned resultPOCT-GLUCOSE [id number] 12:24:48 Test Item Value Reference Range Interpretation Comments POC-GLUCOSE METER 225 mg/dL 70-110 H : TESTED A T [facility] 6720 (FriendFeedAKER) (test code = [facility], 1538) 94[address]: Shuttle Inspector/Techni sanjeev ID = [id number] for MA RTINEZ, KASSANDRA POCT-GLUCOSE [id number] 07:31:47 Test Item Value Reference Range Interpretation Comments POC-GLUCOSE METER 254 mg/dL 70-110 H : TESTED A T [facility] 6720 (BEAKER) (test code = [facility], 1538) [address]17[address]: Shuttle Inspector/Techni sanjeev ID = [id number] for MA RTINEZ, KASSANDRA [id number] 05:54:17 Test Item Value Reference Range Interpretation Comments MAGNESIUM (BEAKER) (test code = 1.7 mg/dL 1.6-2.6 627) Shuttle Inspector ID - ASTRID [id number] 05:54:17 Test Item Value Reference Range Interpretation Comments PHOSPHORUS (BEAKER) (test code = 3.3 mg/dL 2.3-4.7 604) Shuttle Inspector ID - ASTRID GCOMPREHENSIVE METABOLIC [id number] 05:54:16 Test Item Value Reference Range Interpretation [...] S NOT APPLICABLE FOR DIALYSIS PATIEN TS. Shuttle Inspector ID - ASTRID GPROTHROMBIN TIME/[id number] 05:24:25 Test Item Value Reference Range Interpretation Comments PROTIME (BEAKER) 15.5 seconds 11.9-14.2 H (test code = 759) INR (BEAKER) (test 1.25 See_Comment [Automat ed message] code = 370) The system [employer] generated this result transmitted ref erence range: <=5.90. The reference range was not used to int erpret this result as normal/abnormal . RECOMMENDED COUMADIN/WARFARIN INR THERAPY RANGESSTANDARD DOSE: 2.0 - 3.0 Includes: PROPHYLAXIS for venous thrombosis, systemic embolization; TREATMENT for venous thrombosis and/or pulmonary embolus.HIGH RISK: Target INR is 2.5-3.5 for patients with mechanical heart valves.CBC W/PLT COUNT & AUTO [id number] 05:13:34 Test Item Value Reference Range Interpretation [...] PERCENT (BEAKER) (test code = 2801) POCT-GLUCOSE [id number] 20:54:45 Test Item Value Reference Range Interpretation Comments POC-GLUCOSE METER 369 mg/dL 70-110 H : TESTED A T [facility] 6720 (BEAKER) (test code = [facility], [facility]) 25882: Shuttle Inspector/Techni sanjeev ID = [id number] for Co [place], Niki POCT-GLUCOSE [id number] 17:44:33 Test Item Value Reference Range Interpretation Comments POC-GLUCOSE METER 73 mg/dL 70-110 : TESTED A T [facility] 6720 (BEAKER) (test code = [facility], [facility]8) 8[address]: Shuttle Inspector/Techni sanjeev ID = [id number] for FAIT H, QUETA POCT-GLUCOSE [id number] 12:23:38 Test Item Value Reference Range Interpretation Comments POC-GLUCOSE METER 175 mg/dL 70-110 H : TESTED A T [facility] 6720 (BEAKER) (test code = [facility], 1538) 76605: Shuttle Inspector/Techni sanjeev ID = [id number] for FA ITH, QUETA POCT-GLUCOSE [id number] 08:14:03 Test Item Value Reference Range Interpretation Comments POC-GLUCOSE METER 173 mg/dL 70-110 H : TESTED A T [facility] 6720 (BEAKER) (test code = [facility], [facility]8) 50098: Shuttle Inspector/Techni sanjeev ID = [id number] for QUETA VILLASEÑOR COMPREHENSIVE METABOLIC [id number] 04:34:04 Test Item Value Reference Range Interpretation [...] S NOT APPLICABLE FOR DIALYSIS PATIEN TS. Shuttle Inspector ID - ASTRID [id number] 04:34:03 Test Item Value Reference Range Interpretation Comments MAGNESIUM (BEAKER) 1.7 mg/dL 1.6-2.6 Specimen slightly (test code = 627) hemolyzed Shuttle Inspector ID - ASTRID [id number] 04:34:03 Test Item Value Reference Range Interpretation Comments PHOSPHORUS (BEAKER) 4.3 mg/dL 2.3-4.7 Specimen slightly (test code = 604) hemolyzed Shuttle Inspector ID - ASTRID GPROTHROMBIN TIME/[id number] 04:23:20 Test Item Value Reference Range Interpretation Comments PROTIME (BEAKER) 14.9 seconds 11.9-14.2 H (test code = 759) INR (BEAKER) (test 1.18 See_Comment [Automat ed message] code = 370) The system [employer] generated this result transmitted ref erence range: <=5.90. The reference range was not used to int erpret this result as normal/abnormal . RECOMMENDED COUMADIN/WARFARIN INR THERAPY RANGESSTANDARD DOSE: 2.0 - 3.0 Includes: PROPHYLAXIS for venous thrombosis, systemic embolization; TREATMENT for venous thrombosis and/or pulmonary embolus.HIGH RISK: Target INR is 2.5-3.5 for patients with mechanical heart valves.CBC W/PLT COUNT & AUTO [id number] 04:08:50 Test Item Value Reference Range Interpretation [...] PERCENT (BEAKER) (test code = 2801) POCT-GLUCOSE [id number] 22:28:39 Test Item Value Reference Range Interpretation Comments POC-GLUCOSE METER 133 mg/dL 70-110 H : TESTED A T [facility] 6720 (BEAKER) (test code = [facility], 1538) [address]: Shuttle Inspector/Techni sanjeev ID = [id number] for CA RBAJAL, ANGELINA SARS-COV2/RT-PCR ([facility])2021-04-12 21:36:05 Test Item Value Reference Range Interpretation Comments SARS-COV2/RT-PCR Negative Negative The SARS-Co V-2 target (test code = nucleic acids a re not [id number]) detected in thi s specimen. Negative result [...] revoked sooner. Fact Sheet for Healthcare Providers: https://www.[employer] m/Documents/Xpert%20Xpress%20SARS%20CoV-2/Fact%20Sheets/3023802%90SKJR-YUZ-8%20 HEALTHCARE%20PROVIDERS%20FACT%20SHEET.pdf Fact Sheet for Healthcare Patients: https://www.[employer]/Documents/Xpert%20Xp ress%20SARS%20CoV-2/Fact%20Sheets/3023801%19YIRT-JAV-4%20PATIENT%20FACT%20SHEET .pdfCOMPREHENSIVE METABOLIC [id number] 18:32:37 Test Item Value Reference Range Interpretation [...] S NOT APPLICABLE FOR DIALYSIS PATIEN TS. Shuttle Inspector ID - DBOperator ID - DBHIGH SENSITIVITY TROPONIN [id number] 18:25:54 Test Item Value Reference Range Interpretation Comments HIGH SENSITIVITY < pg/ml See_Comment [Automated message] TROPONIN I (test code = The system which [id number]) generated this result transmitted ref erence range: <=17. Th e reference range was not used to interpr et this result as normal/abnormal . Shuttle Inspector ID - DBThe LEARNING COORDINATOR STAT High Sensitivity Troponin-I results should be used in conjunctionwith other diagnostic information such as ECG, clinical observations and information, and patient symptoms to aid in the diagnosis of VT.[id number] 18:21:14 Test Item Value Reference Range Interpretation Comments LIPASE (BEAKER) (test code = 749) 102 U/L 8-78 H Shuttle Inspector ID - DBPROTHROMBIN TIME/[id number] 18:16:11 Test Item Value Reference Range Interpretation [...] mechanical heart valves.CBC W/PLT COUNT & AUTO [id number] 18:02:09 Test Item Value Reference Range Interpretation [...] code = 2801) MYOCARD IMAGING, MULTI, PHARM, [id number] 16:04:00Unlisted Reason for Exam - Click Yes and Enter Reason Below->YesUnlisted Reason for Exam->Liver transplant evaluation [facility] : 1965 Sex: FFINALREPORT PROCEDURE: MYOCARDIAL PERFUSION SPECT IMAGING (Rest/Stress)CPT CODE: 78456 INDICATION: Cardiac evaluation prior to liver transplant [...] MDReport Verified Date/Time: 04/12/2021 16:04:45 Reading Location: [address] Reading Room [id number] 10:43:26 Test Item Value Reference Range Interpretation Comments T3 TOTAL (BEAKER) (test code = 0.94 ng/mL 0.60-1.81 656) Shuttle Inspector ID - [id number] 14:22:58 Test Item Value Reference Range Interpretation Comments RPR SCREEN (BEAKER) (test code = Nonreactive Nonreactive 420) CRYPTOCOCCAL [id number] 14:21:41 Test Item Value Reference Range Interpretation Comments CRYPTOCOCCAL ANTIGEN, SERUM Negative Negative, Interference (BEAKER) (test code = 1828) RAD, MANDIBLE, MIN 4 [id number] 13:53:00Reason for Exam:->Liver transplant evaluation [facility]LE[facility] : 1965 Sex: FFINALREPORT MANDIBLE [...] MDReport Verified Date/Time: 04/11/2021 13:53:12 Reading Location: [facility] [address] Radiology Reading Room RUBELLA ANTIBODY, [id number] 13:46:29 Test Item Value Reference Range Interpretation Comments RUBELLA IGG QUANTITATION (BEAKER) 53.0 IU/mL <8.0 H (test code = 572) Rubella IgG Result Interpretation: </= 7.0 IU/mL Negative - Presumed non- immune 8.0 - 9.9 IU/mL Equivocal >= 10.0 IU/mL Positive - Presumed immune VARICELLA ZOSTER ANTIBODY, [id number] 13:46:29 Test Item Value Reference Range Interpretation Comments VARICELLA ZOSTER IGG (AL) (BEAKER) 5.6 (test code = 3197) VARICELLA ZOSTER RESULT INTERPRETATIONS: <=0.8 Al Nonreactive: Presumed non- immune to VZV 0.9-1.0Al Equivocal >=1.1 Al Reactive: Presumed immune to VZV CYTOMEGALOVIRUS ANTIBODY, [id number] 13:46:22 Test Item Value Reference Range Interpretation Comments CYTOMEGALOVIRUS, IGG (BEAKER) Positive Negative, Equivocal A (test code = 3429) CMV IgG Result Interpretation: </= 0.8 Al Negative 0.9-1.0 Al Equivocal >/=1.1 Al PositiveEBV ANTIBODY, [id number] 13:46:22 Test Item Value Reference Range Interpretation Comments SHAYY LAMAS VIRAL CAPSID Positive Negative, Equivocal A ANTIGEN IGG (BEAKER) (test code = 3415) Shayy Lamas Viral Capsid Antigen IgG Result Interpretation: </= 0.8 Al Negative 0.9-1.0 Al Equivocal >/= 1.1 Al PositiveEBV ANTIBODY, [id number] 13:46:22 Test Item Value Reference Range Interpretation Comments SHAYY LAMAS VIRAL CAPSID Negative Negative, Equivocal ANTIGEN IGM (BEAKER) (test code = 3418) Shayy Lamas Viral Capsid Antigen IgM Result Interpretation: </= 0.8 Al Negative 0.9-1.0 Al Equivocal >/= 1.1 Al PositiveRAD, CHEST, 2 VIEWS 2021-04-11 13:37:00Reason for Exam:->Liver transplant evaluation [facility] : 1965 Sex: [...] and L1 compression fractures. Signed: Urban Aparicio Verified Date/Time: 04/11/2021 13:37:16 Reading Location: [facility] [address] Radiology Reading Room BLOOD GAS, [id number] 11:39:39 Test Item Value Reference Range Interpretation [...] (test code = 1819) 21.0 VITAMIN D, [id number] 10:29:34 Test Item Value Reference Range Interpretation Comments VITAMIN D 25-OH (BEAKER) (test 13.1 ng/mL 6.6-49.9 code = 2764) Effective 03/12/2017: Reference Range ChangeNew: 6.6-49.9 ng/mL Previous: 13.0- 47.8 ng/mLRecommendedVitamin D Target Range: 30.0-40.0 ng/mLOperator ID - DENA LHEMOGLOBIN [id number] 10:20:10 Test Item Value Reference Range Interpretation Comments HEMOGLOBIN A1C (BEAKER) (test code = 6.7 % 4.3-6.1 H 368) CARCINOEMBRYONIC ANTIGEN (CEA)2021-04-11 10:03:38 Test Item Value Reference Range Interpretation Comments CARCINOEMBRYONIC ANTIGEN (BEAKER) 14.5 ng/mL 0.0-5.0 H (test code = 685) Shuttle Inspector ID - DENA LALPHA FETOPROTEIN (AFP), TUMOR [id number] 10:03:38 Test Item Value Reference Range Interpretation Comments ALPHA-FETOPROTEIN (BEAKER) (test 5.4 ng/mL <10.0 code = 1094) Shuttle Inspector ID - DENA LURINALYSIS W/ [id number] 09:49:36 Test Item Value Reference Range Interpretation [...] = 1521) SOURCE(BEAKER) (test code = 2795) Shuttle Inspector ID - [auto]Shuttle Inspector ID - [id number] 09:08:39 Test Item Value Reference Range Interpretation Comments T4 TOTAL (BEAKER) (test code = 895) 5.9 ug/dL 4.9-11.7 Shuttle Inspector ID - DENA [id number] 09:08:39 Test Item Value Reference Range Interpretation Comments THYROID STIMULATING HORMONE 2.023 uIU/mL 0.350-4.940 (BEAKER) (test code = 772) Shuttle Inspector ID - DENA LPREGNANCY SCREEN, [id number] 08:59:02 Test Item Value Reference Range Interpretation Comments TEST URINE (BEAKER) (test Negative code = 583) [id number] 08:53:55 Test Item Value Reference Range Interpretation Comments TRANSFERRIN (BEAKER) (test code = 248 mg/dL 174-382 541) Shuttle Inspector ID - DENA LBILIRUBIN, [id number] 08:50:00 Test Item Value Reference Range Interpretation Comments BILIRUBIN DIRECT (BEAKER) (test 0.3 mg/dL 0.1-0.5 code = 706) Shuttle Inspector ID - DENA LGAMMA GLUTAMYL TRANSFERASE (GGT)2021-04-11 08:50:00 Test Item Value Reference Range Interpretation Comments GAMMA GLUTAMYL TRANSFERASE (BEAKER) 106 U/L 9-64 H (test code = 364) Shuttle Inspector ID - DENA LURIC [id number] 08:49:55 Test Item Value Reference Range Interpretation Comments URIC ACID (BEAKER) (test code = 3.6 mg/dL 2.6-7.2 773) Shuttle Inspector ID - DENA LLIPID [id number] 08:49:55 Test Item Value Reference Range Interpretation [...] Borderline 130-159 High 160-189 Very High >=190 Shuttle Inspector ID - DENA LCOMPREHENSIVE METABOLIC [id number] 08:49:54 Test Item Value Reference Range Interpretation [...] S NOT APPLICABLE FOR DIALYSIS PATIEN TS. Shuttle Inspector ID - DENA [id number] 08:49:54 Test Item Value Reference Range Interpretation Comments MAGNESIUM (BEAKER) (test code = 1.8 mg/dL 1.6-2.6 627) Shuttle Inspector ID - DENA [id number] 08:44:52 Test Item Value Reference Range Interpretation Comments ETHANOL (BEAKER) < mg/dL See_Comment [Automated message] The (test code = 400) system [employer] generated this result tra nsmitted reference range : <=10. The reference r mago was not used to int erpret this result as normal/abnormal . Shuttle Inspector ID - DENA [id number] 08:32:06 Test Item Value Reference Range Interpretation Comments FIBRINOGEN LEVEL (BEAKER) (test 265 mg/dl 225-434 code = 658) [id number] 08:32:06 Test Item Value Reference Range Interpretation Comments PARTIAL THROMBOPLASTIN TIME 29.0 seconds 22.5-36.0 (BEAKER) (test code = 760) PROTHROMBIN TIME/[id number] 08:31:30 Test Item Value Reference Range Interpretation Comments PROTIME (BEAKER) 14.1 seconds 11.9-14.2 (test code = 759) INR (BEAKER) (test 1.11 See_Comment [Automat ed message] code = 370) The system [employer] generated this result transmitted ref erence range: <=5.90. The reference range was not used to int erpret this result as normal/abnormal . RECOMMENDED COUMADIN/WARFARIN INR THERAPY RANGESSTANDARD DOSE: 2.0 - 3.0 Includes: PROPHYLAXIS for venous thrombosis, systemic embolization; TREATMENT for venous thrombosis and/or pulmonary embolus.HIGH RISK: Target INR is 2.5-3.5 for patients with mechanical heart valves.CBC W/PLT COUNT & AUTO [id number] 08:25:27 Test Item Value Reference Range Interpretation [...] PERCENT (BEAKER) (test code = 2801) CALCIUM, [id number] 08:17:07 Test Item Value Reference Range Interpretation Comments CALCIUM IONIZED (BEAKER) (test 1.20 mmol/L 1.12-1.27 code = 698) PH, BLOOD (BEAKER) (test code = 7.38 1810) COMPREHENSIVE METABOLIC [id number] 09:52:02 Test Item Value Reference Range Interpretation [...] S NOT APPLICABLE FOR DIALYSIS PATIEN TS. Shuttle Inspector ID - DENA LOperator ID - JAHAIRACRISTINA LPOCT-GLUCOSE [id number] 08:16:36 Test Item Value Reference Range Interpretation Comments POC-GLUCOSE METER 222 mg/dL 70-110 H : [facility] (BEAKER) (test code = [facility], 1538) 15[address]: Shuttle Inspector/Techni sanjeev ID = [id number] for Bess Lares PROTHROMBIN TIME/[id number] 07:26:15 Test Item Value Reference Range Interpretation Comments PROTIME (BEAKER) 15.7 seconds 11.9-14.2 H (test code = 759) INR (BEAKER) (test 1.27 See_Comment [Automat ed message] code = 370) The system [employer] generated this result transmitted ref erence range: <=5.90. The reference range was not used to int erpret this result as normal/abnormal . RECOMMENDED COUMADIN/WARFARIN INR THERAPY RANGESSTANDARD DOSE: 2.0 - 3.0 Includes: PROPHYLAXIS for venous thrombosis, systemic embolization; TREATMENT for venous thrombosis and/or pulmonary embolus.HIGH RISK: Target INR is 2.5-3.5 for patients with mechanical heart valves.CBC W/PLT COUNT & AUTO [id number] 07:19:16 Test Item Value Reference Range Interpretation [...] PERCENT (BEAKER) (test code = 2801) POCT-GLUCOSE [id number] 23:04:19 Test Item Value Reference Range Interpretation Comments POC-GLUCOSE METER 280 mg/dL 70-110 H : TESTED Pedro Wade [facility] 6720 (BEAKER) (test code = [facility], 1538) [address]: Shuttle Inspector/Techni sanjeev ID = [id number] for ON UOHA, JAROD POCT-GLUCOSE [id number] 16:00:21 Test Item Value Reference Range Interpretation Comments POC-GLUCOSE METER 166 mg/dL 70-110 H : TESTED A T [facility] 6720 (BEAKER) (test code = [facility], 1538) 787[address]: Shuttle Inspector/Techni sanjeev ID = [id number] for Bess Lares HEMOGLOBIN AND [id number] 13:22:38 Test Item Value Reference Range Interpretation Comments HEMOGLOBIN (BEAKER) (test code = 10.8 GM/DL 11.2-15.7 L 410) HEMATOCRIT (BEAKER) (test code = 32.9 % 34.1-44.9 L 411) Shuttle Inspector ID - 6000HEMOGLOBIN [id number] 11:43:51 Test Item Value Reference Range Interpretation Comments HEMOGLOBIN A1C (BEAKER) (test code = 6.4 % 4.3-6.1 H 368) POCT-GLUCOSE [id number] 11:23:09 Test Item Value Reference Range Interpretation Comments POC-GLUCOSE METER 181 mg/dL 70-110 H : TESTED A T [facility] 6720 (BEAKER) (test code = [facility], 1538) 10336: Shuttle Inspector/Techni sanjeev ID = [id number] for Bess Lares POCT-GLUCOSE [id number] 07:28:05 Test Item Value Reference Range Interpretation Comments POC-GLUCOSE METER 189 mg/dL 70-110 H : TESTED A T [facility] 6720 (BEAKER) (test code = [facility], 1538) 91266: Shuttle Inspector/Techni sanjeev ID = [id number] for Bess Lares HEPATIC FUNCTION [id number] 06:10:18 Test Item Value Reference Range Interpretation [...] (test code = 26 U/L 6-55 347) Shuttle Inspector YOSEF VELOZ [id number] 06:10:17 Test Item Value Reference Range Interpretation Comments MAGNESIUM (BEAKER) (test code = 1.5 mg/dL 1.6-2.6 L 627) Shuttle Inspector ID - MAGDIEL MBASIC METABOLIC [id number] 06:10:16 Test Item Value Reference Range Interpretation [...] S NOT APPLICABLE FOR DIALYSIS PATIEN TS. Shuttle Inspector ID Joaquin VELOZ MPROTHROMBIN TIME/[id number] 05:40:00 Test Item Value Reference Range Interpretation Comments PROTIME (BEAKER) 15.9 seconds 11.9-14.2 H (test code = 759) INR (BEAKER) (test 1.30 See_Comment [Automat ed message] code = 370) The system [employer] generated this result transmitted ref erence range: <=5.90. The reference range was not used to int erpret this result as normal/abnormal . RECOMMENDED COUMADIN/WARFARIN INR THERAPY RANGESSTANDARD DOSE: 2.0 - 3.0 Includes: PROPHYLAXIS for venous thrombosis, systemic embolization; TREATMENT for venous thrombosis and/or pulmonary embolus.HIGH RISK: Target INR is 2.5-3.5 for patients with mechanical heart valves.HEMOGLOBIN AND [id number] 05:35:58 Test Item Value Reference Range Interpretation Comments HEMOGLOBIN (BEAKER) (test code = 10.2 GM/DL 11.2-15.7 L 410) HEMATOCRIT (BEAKER) (test code = 32.0 % 34.1-44.9 L 411) CBC W/PLT COUNT & AUTO [id number] 05:35:56 Test Item Value Reference Range Interpretation [...] PERCENT (BEAKER) (test code = 2801) POCT-GLUCOSE [id number] 23:23:05 Test Item Value Reference Range Interpretation Comments POC-GLUCOSE METER 151 mg/dL 70-110 H : TESTED A T [facility] 6720 (BEAKER) (test code = [facility], 1538) 118[address]: Shuttle Inspector/Techni sanjeev ID = [id number] for ON UOHA, JAROD HEMOGLOBIN AND [id number] 23:02:32 Test Item Value Reference Range Interpretation Comments HEMOGLOBIN (BEAKER) (test code = 10.9 GM/DL 11.2-15.7 L 410) HEMATOCRIT (BEAKER) (test code = 34.1 % 34.1-44.9 411) Shuttle Inspector ID - [id number]-GLUCOSE [id number] 19:23:43 Test Item Value Reference Range Interpretation Comments POC-GLUCOSE METER 174 mg/dL 70-110 H : TESTED A T [facility] 6720 (BEAKER) (test code = [facility], 1538) [address]: Shuttle Inspector/Techni sanjeev ID = [id number] for Al Aisha diaz SARS-COV2/RT-PCR ([facility])2021-03-23 14:56:48 Test Item Value Reference Range Interpretation Comments SARS-COV2/RT-PCR Negative Negative The SARS-Co V-2 target (test code = nucleic acids a re not 2227939) detected in thi s specimen. Negative result [...] revoked sooner. Fact Sheet for Healthcare Providers: https://www.[employer] om/Documents/Xpert%20Xpress%20SARS%20CoV-2/Fact%20Sheets/302-3802%22QZSU-AXV-6%2 0HEALTHCARE%20PROVIDERS%20FACT%20SHEET.pdf Fact Sheet for Healthcare Patients: https://www.[employer]G/Documents/Xpert%20X press%20SARS%20CoV-2/Fact%20Sheets/302-3801%84XTTD-LKL-1%20PATIENT%20FACT%20SHEE T.mqfYWONCD5936-33-07 14:38:02 Test Item Value Reference Range Interpretation Comments LIPASE (BEAKER) (test code = 749) 89 U/L 8-78 H Shuttle Inspector ID - EMERSONBASIC METABOLIC [id number] 14:38:01 Test Item Value Reference Range Interpretation [...] S NOT APPLICABLE FOR DIALYSIS PATIEN TS. Shuttle Inspector ID - [facility] CREEKHEPATIC FUNCTION [id number] 14:38:01 Test Item Value Reference Range Interpretation [...] (test code = 32 U/L 6-55 347) Shuttle Inspector ID - KATEDGARCB W/PLT COUNT & AUTO [id number] 14:18:03 Test Item Value Reference Range Interpretation [...] GRANULOCYTES-RELATIVE PERCENT (BEAKER) (test code = 2801) [id number] 14:12:16 Test Item Value Reference Range Interpretation [...] 2.5-3.5 for patients with mechanical heart valves.POCT-GLUCOSE [id number] 15:03:21 Test Item Value Reference Range Interpretation Comments POC-GLUCOSE METER 125 mg/dL 70-110 H : TESTED A T [facility] 6720 (BEAKER) (test code = [facility] [place], 1538) 6[address]: Shuttle Inspector/Techni sanjeev ID = [id number] for MO SHELLEY SUTTON BASIC METABOLIC [id number] 10:30:15 Test Item Value Reference Range Interpretation [...] S NOT APPLICABLE FOR DIALYSIS PATIEN TS. Shuttle Inspector ID - PIAYA LCBC W/PLT COUNT & AUTO [id number] 10:18:28 Test Item Value Reference Range Interpretation [...] PERCENT (BEAKER) (test code = 2801) CT, [id number] 18:39:00Unlisted Reason for Exam - Click Yes and Enter Reason Below->YesUnlisted Reason for Exam->TIPSplanningWill this procedure require oral contrast?->No [facility] : 1965 Sex: FFINALREPORT [...] Murillo Verified Date/Time: 03/08/2021 18:39:08 Reading Location: [address] Body Reading Room POCT-GLUCOSE [id number] 18:25:50 Test Item Value Reference Range Interpretation Comments POC-GLUCOSE METER 138 mg/dL 70-110 H : TESTED A T [facility] 6720 (BEAKER) (test code = MICHEL Royal [facility], 1538) 48481: Shuttle Inspector/Techni sanjeev ID = [id number] for WI LLIS, ANAYA POCT-GLUCOSE [id number] 14:11:45 Test Item Value Reference Range Interpretation Comments POC-GLUCOSE METER 207 mg/dL 70-110 H : TESTED A T [facility] 6720 (BEAKER) (test code = MICHEL Royal [facility], 1538) 24196: Shuttle Inspector/Techni sanjeev ID = [id number] for WI LLIS, ANAYA CBC W/PLT COUNT & AUTO [id number] 05:09:37 Test Item Value Reference Range Interpretation [...] (BEAKER) (test code = 2801) HEPATIC FUNCTION [id number] 05:06:54 Test Item Value Reference Range Interpretation [...] Specimen slightly (test code = 347) hemolyzed Shuttle Inspector ID - PIAYA LBASIC METABOLIC [id number] 05:06:53 Test Item Value Reference Range Interpretation [...] S NOT APPLICABLE FOR DIALYSIS PATIEN TS. Shuttle Inspector ID - PIAYA LPROTHROMBIN TIME/[id number] 04:58:22 Test Item Value Reference Range Interpretation Comments PROTIME (BEAKER) 14.7 seconds 11.9-14.2 H (test code = 759) INR (BEAKER) (test 1.17 See_Comment [Automat ed message] code = 370) The system [employer] generated this result transmitted ref erence range: <=5.90. The reference range was not used to int erpret this result as normal/abnormal . RECOMMENDED COUMADIN/WARFARIN INR THERAPY RANGESSTANDARD DOSE: 2.0 - 3.0 Includes: PROPHYLAXIS for venous thrombosis, systemic embolization; TREATMENT for venous thrombosis and/or pulmonary embolus.HIGH RISK: Target INR is 2.5-3.5 for patients with mechanical heart valves.HIGH SENSITIVITY TROPONIN [id number] 22:25:04 Test Item Value Reference Range Interpretation Comments HIGH SENSITIVITY < pg/ml See_Comment [Automated message] TROPONIN I (test code = The system which [id number]) generated this result transmitted ref erence range: <=17. Th e reference range was not used to interpr et this result as normal/abnormal . Shuttle Inspector ID - CDPThe LEARNING COORDINATOR STAT High Sensitivity Troponin-I results should be used in conjunction with other diagnostic information such as ECG, clinical observations and information, and patient symptoms to aid in the diagnosis of VT.RAD, CHEST, 1 VIEW, NON [id number] 22:13:00Reason for exam:->RECTAL BLEEDINGReason for exam:->HEMATEMESISShould this be performed [facility]?->YesCH[facility] : 1965 Sex: FFINALREPORT Chest, 1 view. History: Rectal bleeding and hematemesis. Comparison: None available. Findings: The cardiomediastinal silhouette and pulmonary vasculature are within normal limits for a portable exam. The lungs are clear without evidence of consolidation or effusion. The soft tissues and osseous structures are intact. IMPRESSION: No acute cardiopulmonary abnormality. Signed: Gregorio Cook [facility] Verified Date/Time: 03/07/2021 22:13:00 [id number] 20:49:29 Test Item Value Reference Range Interpretation Comments AMMONIA (BEAKER) (test code = 348) 36 mol/L 18-72 Shuttle Inspector ID - EMERSONSARS-COV2/RT-PCR ([facility])2021-03-07 20:32:21 Test Item Value Reference Range Interpretation Comments SARS-COV2/RT-PCR Negative Negative The SARS-Co V-2 target (test code = nucleic acids a re not 9719314) detected in thi s specimen. Negative result [...] revoked sooner. Fact Sheet for Healthcare Providers: https://www.[employer] m/Documents/Xpert%20Xpress%20SARS%20CoV-2/Fact%20Sheets/3023802%86JASL-SIX-7%20 HEALTHCARE%20PROVIDERS%20FACT%20SHEET.pdf Fact Sheet for Healthcare Patients: https://www.[employer]/Documents/Xpert%20Xp ress%20SARS%20CoV-2/Fact%20Sheets/3023801%46SJSA-HNR-9%20PATIENT%20FACT%20SHEET .pdfCOMPREHENSIVE METABOLIC [id number] 19:51:17 Test Item Value Reference Range Interpretation Comments TOTAL PROTEIN 7.6 gm/dL 6.0-8.3 Specimen markrolly dlhan (BEAKER) (test code = hemoly zed 770) ALBUMIN (BEAKER) 3.7 g/dL 3.5-5.0 Specimen ma rkedly (test code = 1145) hemolyzed ALKALINE PHOSPHATASE 117 U/L 40-150 (BEAKER) (test code = 346) BILIRUBIN TOTAL 0.5 mg/dL 0.2-1.2 Specimen mar kedlhan (BEAKER) (test code = hemoly zed 377) [...] S NOT APPLICABLE FOR DIALYSIS PATIEN TS. Shuttle Inspector ID - LJKFYBSHKHBGK9786-02-69 19:51:17 Test Item Value Reference Range Interpretation Comments LIPASE (BEAKER) (test code = 749) 120 U/L 8-78 H Shuttle Inspector ID - EMERSONPT/SYUD7167-24-22 19:47:57 Test Item Value Reference Range Interpretation [...] mechanical heart valves.CBC W/PLT COUNT & AUTO [id number] 19:37:50 Test Item Value Reference Range Interpretation [...] GRANULOCYTES-RELATIVE PERCENT (BEAKER) (test code = 2801) [id number] 13:29:10 Test Item Value Reference Range Interpretation Comments POC-CREATININE 0.9 mg/dL 0.6-1.3 : TESTED AT [facility] (BEAKER) (test [address], code = 1859) [facility] 7703 0: Shuttle Inspector/Techni sanjeev ID = [id number] for Rosanna Edward POC-EGFR (BEAKER) 65 mL/min/1.73M2 (test code = 1860) POCT-GLUCOSE [id number] 12:21:00 Test Item Value Reference Range Interpretation Comments POC-GLUCOSE METER 259 mg/dL 70-110 H : TESTED A T [facility] 6720 (BEAKER) (test code = MICHEL R [facility], 1538) 73812: Shuttle Inspector/Techni sanjeev ID = [id number] for CHRISTINA CRISTIANONELIA Ortiz BASIC METABOLIC [id number] 10:39:00 Test Item Value Reference Range Interpretation [...] S NOT APPLICABLE FOR DIALYSIS PATIEN TS. Shuttle Inspector ID - PIAYA LPOCT-GLUCOSE [id number] 07:22:00 Test Item Value Reference Range Interpretation Comments POC-GLUCOSE METER 208 mg/dL 70-110 H : TESTED A T [facility] 6720 (BEAKER) (test code = MICHEL Royal [place], 1538) [address]: Shuttle Inspector/Techni sanjeev ID = [id number] for ONELIA REGALADO PROTHROMBIN TIME/[id number] 06:25:00 Test Item Value Reference Range Interpretation Comments PROTIME (BEAKER) 16.9 seconds 11.9-14.2 H (test code = 759) INR (BEAKER) (test 1.40 See_Comment [Automat ed message] code = 370) The system [employer] generated this result transmitted ref erence range: <=5.90. The reference range was not used to int erpret this result as normal/abnormal . RECOMMENDED COUMADIN/WARFARIN INR THERAPY RANGESSTANDARD DOSE: 2.0 - 3.0 Includes: PROPHYLAXIS for venous thrombosis, systemic embolization; TREATMENT for venous thrombosis and/or pulmonary embolus.HIGH RISK: Target INR is 2.5-3.5 for patients with mechanical heart valves.CBC W/PLT COUNT & AUTO [id number] 06:18:00 Test Item Value Reference Range Interpretation [...] PERCENT (BEAKER) (test code = 2801) POCT-GLUCOSE [id number] 21:27:00 Test Item Value Reference Range Interpretation Comments POC-GLUCOSE METER 308 mg/dL 70-110 H : Notified RN/MD: ([facility]) (test code = TESTED AT [place] [address] 1537) [facility], [address]: Shuttle Inspector/Techni sanjeev ID = [id number] for Romina Lomeli POCT-GLUCOSE [id number] 18:07:00 Test Item Value Reference Range Interpretation Comments POC-GLUCOSE METER 294 mg/dL 70-110 H : [facility] ([facility]) (test code = [facility], 153) [address]: Shuttle Inspector/Techni sanjeev ID = [id number] for Jessica CABRERA POCT-GLUCOSE [id number] 13:24:00 Test Item Value Reference Range Interpretation Comments POC-GLUCOSE METER 156 mg/dL 70-110 H : TESTED A T [facility] 6720 ([facility]) (test code = [facility], 1538) [address]: Shuttle Inspector/Techni sanjeev ID = [id number] for Jessica CABRERA CBC W/PLT COUNT & AUTO [id number] 06:50:00 Test Item Value Reference Range Interpretation [...] (BEAKER) (test code = 2801) BASIC METABOLIC [id number] 06:20:00 Test Item Value Reference Range Interpretation [...] S NOT APPLICABLE FOR DIALYSIS PATIEN TS. Shuttle Inspector ID - DBPROTHROMBIN TIME/[id number] 05:46:00 Test Item Value Reference Range Interpretation Comments PROTIME (BEAKER) 15.9 seconds 11.9-14.2 H (test code = 759) INR (BEAKER) (test 1.29 See_Comment [Automat ed message] code = 370) The system [employer] generated this result transmitted ref erence range: <=5.90. The reference range was not used to int erpret this result as normal/abnormal . RECOMMENDED COUMADIN/WARFARIN INR THERAPY RANGESSTANDARD DOSE: 2.0 - 3.0 Includes: PROPHYLAXIS for venous thrombosis, systemic embolization; TREATMENT for venous thrombosis and/or pulmonary embolus.HIGH RISK: Target INR is 2.5-3.5 for patients with mechanical heart valves.POCT-GLUCOSE [id number] 05:45:00 Test Item Value Reference Range Interpretation Comments POC-GLUCOSE METER 179 mg/dL 70-110 H : TESTED Pedro Wade [facility] 6720 (MITA) (test code = MICHEL [place], 1538) [address]: Shuttle Inspector/Techni sanjeev ID = [id number] for Brittni Ly CT, [id number] 18:12:00Unlisted Reason for Exam - Click Yes and Enter Reason Below->NoWill this procedure require oral contrast?->No [facility] : 1965 Sex: FFINALREPORT CT [...] Gao Verified Date/Time: 01/14/2021 18:12:20 Reading Location: [address] Ortho Consult Reading Room POCT-GLUCOSE [id number] 17:52:00 Test Item Value Reference Range Interpretation Comments POC-GLUCOSE METER 239 mg/dL 70-110 H : TESTED A T [facility] 6720 (BEWorkpop) (test code = [facility], 1538) [address]: Shuttle Inspector/Techni sanjeev ID = [id number] for ONELIA REGALADO HEMOGLOBIN AND [id number] 13:32:00 Test Item Value Reference Range Interpretation Comments HEMOGLOBIN (BEAKER) (test code = 7.5 GM/DL 11.2-15.7 L 410) HEMATOCRIT (BEAKER) (test code = 24.7 % 34.1-44.9 L 411) Shuttle Inspector ID - [id number] ID - [id number]-GLUCOSE [id number] 12:20:00 Test Item Value Reference Range Interpretation Comments POC-GLUCOSE METER 226 mg/dL 70-110 H : [facility] (BEAKER) (test code = [facility], 1538) [address]: Shuttle Inspector/Techni sanjeev ID = [id number] for ONELIA REGALADO SARS-COV2/RT-PCR ([facility])2021-01-14 10:06:00 Test Item Value Reference Range Interpretation Comments SARS-COV2/RT-PCR (test Negative Not Detected, Negative, code = 1318211) See external report for linked test SARS-COV-2 PERFORMING LAB [facility] GIN (test code = 0497670) Negative result for this test determines that [...] of the Act.Fact Sheet for Healthcare Prov iders:https://www.OSOYOU.com.com/sites/default/files/product/documents/Fact_Sheet_HC _Zcyrdggzb_Sgcm_MJQP-UhZ-0.pdfFact Sheet for Healthcare Patients:https://www.[employer]YOU.com.com/sites/default/files/product/docume nts/Dymk_Jvdwt_Hjaesnth_Exep_BDXK-LlB-9.pdfPerforming Laboratory:[facility], [place] [address]HAYX-OGAROKP METER 2021-01-14 06:19:00 Test Item Value Reference Range Interpretation Comments POC-GLUCOSE METER 139 mg/dL 70-110 H : Notified RN/MD: (MITA) (test code = TESTED AT [facility] 6747 3006) [facility], [address]: Shuttle Inspector/Techni sanjeev ID = [id number] for ANSON COSME [id number] 06:10:00 Test Item Value Reference Range Interpretation Comments FERRITIN (BEAKER) (test code = 14.20 ng/mL 5.00-275.00 361) Shuttle Inspector ID - MAGDIEL MBASIC METABOLIC [id number] 05:50:00 Test Item Value Reference Range Interpretation [...] S NOT APPLICABLE FOR DIALYSIS PATIEN TS. Shuttle Inspector ID - MAGDIEL DANTE, TIBC, % SAT. (WITHOUT FERRITIN)2021-01-14 05:49:00 Test Item Value Reference Range Interpretation Comments IRON (BEAKER) (test code = 547) 57.0 ug/dL 40.0-160.0 TOTAL IRON BINDING CAPACITY 351 ug/dL 250-450 (BEAKER) (test code = 769) IRON % SATURATION (2) (BEAKER) 16 % 20-55 L (test code = 2590) Shuttle Inspector ID - MAGDIEL MCBC W/PLT COUNT & AUTO [id number] 05:25:00 Test Item Value Reference Range Interpretation [...] % 0-1 PERCENT (BEAKER) (test code = 2803) POCT-GLUCOSE [id number] 00:46:00 Test Item Value Reference Range Interpretation Comments POC-GLUCOSE METER 197 mg/dL 70-110 H : TESTED A T [facility] 6720 (BEAKER) (test code = MICHEL Royal [facility], 1538) [address]: Shuttle Inspector/Techni sanjeev ID = [id number] for NASON COSME HEMOGLOBIN AND [id number] 20:51:00 Test Item Value Reference Range Interpretation Comments HEMOGLOBIN (BEAKER) (test code = 7.1 GM/DL 11.2-15.7 L 410) HEMATOCRIT (BEAKER) (test code = 23.7 % 34.1-44.9 L 411) Shuttle Inspector ID - [id number] ID - [id number]-GLUCOSE [id number] 17:42:00 Test Item Value Reference Range Interpretation Comments POC-GLUCOSE METER 230 mg/dL 70-110 H : TESTED A T [facility] 6720 (BEAKER) (test code = MICHEL Royal [facility], 1538) [address]: Shuttle Inspector/Techni sanjeev ID = [id number] for ONELIA REGALADO U/S, ABDOMINAL, [id number] 17:38:00Reason for exam:->cirrhosis, evaluate for ascites [facility] : 1965 Sex: FFINALREPORT TECHNIQUE: Grayscale ultrasound of the four quadrants of the abdomen. INDICATION: cirrhosis, evaluate for ascites. COMPARISON: Ultrasound from 12/09/2020. FINDINGS: No ascites is visualized. Signed: Damon Cormier Verified Date/Time: 01/13/2021 17:38:54 Reading Location: [address] Body Reading Room GLOBIN AND [id number] 14:37:00 Test Item Value Reference Range Interpretation Comments HEMOGLOBIN (BEAKER) (test code = 7.9 GM/DL 11.2-15.7 L 410) HEMATOCRIT (BEAKER) (test code = 26.0 % 34.1-44.9 L 411) Shuttle Inspector ID - [id number]-GLUCOSE [id number] 12:56:00 Test Item Value Reference Range Interpretation Comments POC-GLUCOSE METER 175 mg/dL 70-110 H : TESTED A T [facility] 6720 (BEAKER) (test code = MICHEL Royal [facility], 1538) [address]: Shuttle Inspector/Techni sanjeev ID = [id number] for ONELIA REGALADO POCT-GLUCOSE [id number] 11:47:00 Test Item Value Reference Range Interpretation Comments POC-GLUCOSE METER 176 mg/dL 70-110 H : TESTED A T [facility] 6720 (BEAKER) (test code [facility], = 1538) [address]: Shuttle Inspector/Techni sanjeev ID = [id number] for Dianelys xiong (pca2), Arlette [id number] 07:14:00 Test Item Value Reference Range Interpretation Comments LIPASE (BEAKER) (test code = 749) 155 U/L 8-78 H Shuttle Inspector ID - BSBASIC METABOLIC [id number] 06:38:00 Test Item Value Reference Range Interpretation [...] S NOT APPLICABLE FOR DIALYSIS PATIEN TS. Shuttle Inspector ID - MAGDIEL MHEPATIC FUNCTION [id number] 06:15:00 Test Item Value Reference Range Interpretation [...] (test code = 21 U/L 6-55 347) Shuttle Inspector ID - MAGDIEL MPROTHROMBIN TIME/[id number] 05:42:00 Test Item Value Reference Range Interpretation Comments PROTIME (BEAKER) 15.2 seconds 11.9-14.2 H (test code = 759) INR (BEAKER) (test 1.22 See_Comment [Automat ed message] code = 370) The system [employer] generated this result transmitted ref erence range: <=5.90. The reference range was not used to int erpret this result as normal/abnormal . RECOMMENDED COUMADIN/WARFARIN INR THERAPY RANGESSTANDARD DOSE: 2.0 - 3.0 Includes: PROPHYLAXIS for venous thrombosis, systemic embolization; TREATMENT for venous thrombosis and/or pulmonary embolus.HIGH RISK: Target INR is 2.5-3.5 for patients with mechanical heart valves.CBC W/PLT COUNT & AUTO [id number] 05:37:00 Test Item Value Reference Range Interpretation [...] = No growth in 5 days 6463-4) [facility] [id number] 20:01:00 Test Item Value Reference Range Interpretation Comments CULTURE (BEAKER) (test No growth in 5 days code = 1095) BLOOD [id number] 20:01:00 Test Item Value Reference Range Interpretation Comments CULTURE (BEAKER) (test No growth in 5 days code = 1095) Drug screen, urine, [id number] 14:34:00See scanned reportMendocino State HospitalPrepare Leuko-Red [id number] 23:54:00 Test Item Value Reference Range Interpretation Comments Unit ABO (test code = 0622694) A Pos UNIT NUMBER (test code = [id number] 934-0) Status (test code = 0329270) [place]_TIMEINCHART Blood Bank Product (test code PLATELETS = 2263) PRODUCT CODE (test code = M2526B35 933-2) [facility] Hospital[facility] Leuko-Red [id number] 14:17:00 Test Item Value Reference Range Interpretation Comments CROSSMATCH (test code = COMPATIBLE 2264) Unit ABO (test code = A Pos 7125247) UNIT NUMBER (test code = [id number] 934-0) Status (test code = 5046753) WORK IN PROGRESS Blood Bank Product (test RED BLOOD CELLS code = 2263) PRODUCT CODE (test code = O1735Z87 933-2) [facility] HospitalComprehensive metabolic [id number] 06:58:00 Test Item Value Reference Range Interpretation Comments Protein, Total (test 6.1 See_Comment [Autom ated code = 2885-2) message] The system which generated this result transmit gaby reference range : 6.0 - 8.3 gm/dL . The reference range was not u sed to interpret th is result as normal/abnormal . Albumin (test code = 3.0 g/dL 3.5-5 L 10843-8) Alkaline Phosphatase 94 U/L 40-150 (test code = 6768-6) Total Bilirubin (test 0.5 mg/dL 0.2-1.2 code = 1975-2) Sodium (test code = 140 meq/L 437-297 5252-2) Potassium (test code 4.2 meq/L 3.5-5.1 = 2823-3) Chloride (test code = 107 meq/L 98-107 5-0) CO2 (test code = 24 meq/L 22-29 8-9) BUN (test code = 4 mg/dL 7-21 L 3094-0) Creatinine (test code 0.97 mg/dL 0.57-1.25 = 2160-0) Glucose (test code = 175 mg/dL 70-105 H 2345-7) Calcium (test code = 8.0 mg/dL 8.4-10.2 L 12647-9) AST (test code = 19 U/L 5-34 1920-8) ALT (test code = 16 U/L 6-55 1742-6) EGFR (test code = 60 mL/min/1.73 [place] [address]-3) NOT ACCURATE CREATININE CLEARANCE IN PREDICTING GLOMERULAR FILTRATION RATE . ESTIMATED GFR I S NOT APPLICABLE FOR DIALYSIS PATIEN TSMassiel JULIAN (test code = JULIAN) Shuttle Inspector ID - MARCUS W Lab Interpretation Abnormal (test code = 16704-0) [facility] HospitalCOMPREHENSIVE METABOLIC [id number] 06:58:00 Test Item Value Reference Range Interpretation [...] S NOT APPLICABLE FOR DIALYSIS PATIEN TS. Shuttle Inspector ID - MARCUS WProthrombin time/[id number] 06:30:00 Test Item Value Reference Interpretation Comments Range Protime (test code = 16.1 See_Comment H [Autom ated 9552-2) message] The system which generated this result transmitted reference range : 11.9 - 14.2 seconds. The reference range was not used to interpret this result as normal/abnormal . INR (test code = 1.31 See_Comment [Automated 3015-6) message] The system which generated this result [...] valves. Lab Interpretation Abnormal (test code = 87051-9) [facility] HospitalPROTHROMBIN TIME/[id number] 06:30:00 Test Item Value Reference Range Interpretation Comments PROTIME (BEAKER) 16.1 seconds 11.9-14.2 H (test code = 759) INR (BEAKER) (test 1.31 See_Comment [Automat ed message] code = 370) The system [employer] generated this result transmitted ref erence range: <=5.90. The reference range was not used to int erpret this result as normal/abnormal . RECOMMENDED COUMADIN/WARFARIN INR THERAPY RANGESSTANDARD DOSE: 2.0 - 3.0 Includes: PROPHYLAXIS for venous thrombosis, systemic embolization; TREATMENT for venous thrombosis and/or pulmonary embolus.HIGH RISK: Target INR is 2.5-3.5 for patients with mechanical heart valves.CBC with platelet count + automated [id number] 06:19:00 Test Item Value Reference Range Interpretation Comments WBC (test code = 6690-2) 3.0 See_Comment L [A utomated message] The system [employer] generated this result transmitted ref erence range: 3.5 - 10 .5 K/L. The refe rence range was not u sed to interpret this result as normal/abnor mal. RBC (test code = 789-8) 2.52 See_Comment L [Au tomated message] The system [employer] generated this result transmitted ref erence range: 3.93 - 5 .22 M/L. The refe rence range was not u sed to interpret this result as normal/abnor mal. MCHC (test code = 786-4) 31.0 See_Comment L [A utomated message] The system [employer] generated this result transmitted ref erence range: [...] L [Aut omated message] 777-3) The system [employer] generated this result transmitted ref erence range: 150 - 45 0 K/CU MM. The referen ce range was not u sed to interpret this result as normal/abnor mal. MPV (test code = 11.3 fL 9.4-12.3 46398-5) nRBC (test code = 413) 0 See_Comment [Aut omated message] The system [employer] generated this result transmitted ref erence range: [...] See_Comment [Aut omated message] 670) The system [employer] generated this result transmitted ref erence range: 1.56 - 6 .13 K/L. The refe rence range was not u sed to interpret this result as normal/abnor mal. # Lymphs (test code = 0.62 See_Comment L [Auto mated message] 414) The system Hipui generated this result transmitted ref erence range: 1.18 - 3 .74 K/L. The refe rence range was not u sed to interpret this result as normal/abnor mal. # Monos (test code = 0.35 See_Comment [Autom ated message] 415) The system [employer] generated this result transmitted ref erence range: 0.24 - 0 .36 K/L. The refe rence range was not u sed to interpret this result as normal/abnor mal. # Eos (test code = 416) 0.11 See_Comment [Au tomated message] The system Hip[employer] generated this result transmitted ref erence range: 0.04 - 0 .36 K/L. The refe rence range was not u sed to interpret this result as normal/abnor mal. # Baso (test code = 417) 0.01 See_Comment [A utomated message] The system [employer] generated this result transmitted ref erence range: 0.01 - 0 .08 K/L. The refe rence range was not u sed to interpret this result as normal/abnor mal. Immature 0 % 0-1 Granulocytes-Relative (test code = 2801) Lab Interpretation (test Abnormal code = 43482-5) [facility] W/PLT COUNT & AUTO [id number] 06:19:00 Test Item Value Reference Range Interpretation [...] PERCENT (BEAKER) (test code = 2801) POC-Glucose [id number] 21:39:00 Test Item Value Reference Range Interpretation Comments POC-Glucose Meter (test 319 mg/dL 70-110 H : TE STED AT [facility] code = 1538) 6720 [facility], 770 30: Shuttle Inspector/Techni sanjeev ID = [id number] for OCTAVIA MAGAÑA Lab Interpretation (test Abnormal code = 47098-6) [facility] [id number] 21:39:00 Test Item Value Reference Range Interpretation Comments POC-GLUCOSE METER 319 mg/dL 70-110 H : TESTED A T [facility] 6720 (BEAKER) (test code = [facility], 1538) [address]: Shuttle Inspector/Techni sanjeev ID = [id number] for OCTAVIA HOPKINS RA POCT-GLUCOSE [id number] 16:32:00 Test Item Value Reference Range Interpretation Comments POC-GLUCOSE METER 145 mg/dL 70-110 H : TESTED A T [facility] 6720 (BEAKER) (test code = [facility], 1538) [address]: Shuttle Inspector/Techni sanjeev ID = [id number] for KE ITH (V), ROMINA Type and screen, [id number] 08:50:00 Test Item Value Reference Range Interpretation Comments ABO/RH AUTOMATED (BEAKER) (test A POSITIVE code = 2260) Ab Scrn (test code = 890-4) NEGATIVE [facility]COM[facility] METABOLIC [id number] 06:07:00 Test Item Value Reference Range Interpretation [...] S NOT APPLICABLE FOR DIALYSIS PATIEN TS. Shuttle Inspector ID - MAGDIEL WJomqtexrl7407-65-78 05:52:00 Test Item Value Reference Range Interpretation Comments Magnesium (test code = 1.4 mg/dL 1.6-2.6 L 56754-1) JULIAN (test code = JULIAN) Shuttle Inspector ID Joaquin VELOZ M Lab Interpretation (test Abnormal code = 99958-7) [facility]MAGN[facility]IUM2021-07-24 05:52:00 Test Item Value Reference Range Interpretation Comments MAGNESIUM (BEAKER) (test code = 1.4 mg/dL 1.6-2.6 L 627) Shuttle Inspector ID Joaquin VELOZ MPROTHROMBIN TIME/[id number] 05:27:00 Test Item Value Reference Range Interpretation Comments PROTIME (BEAKER) 16.8 seconds 11.9-14.2 H (test code = 759) INR (BEAKER) (test 1.38 See_Comment [Automat ed message] code = 370) The system Hipui generated this result transmitted ref erence range: <=5.90. The reference range was not used to int erpret this result as normal/abnormal . RECOMMENDED COUMADIN/WARFARIN INR THERAPY RANGESSTANDARD DOSE: 2.0 - 3.0 Includes: PROPHYLAXIS for venous thrombosis, systemic embolization; TREATMENT for venous thrombosis and/or pulmonary embolus.HIGH RISK: Target INR is 2.5-3.5 for patients with mechanical heart valves.Hemoglobin and xcifnankwx7435-93-09 05:23:00 Test Item Value Reference Range Interpretation Comments Hemoglobin (test code = 7.0 See_Comment L [Au tomated message] 786-4) The system Hipui generated this result transmitted ref erence range: 11.2 - 1 5.7 GM/DL. The refe rence range was not u sed to interpret this result as normal/abnor mal. Hematocrit (test code = 23.8 % 34.1-44.9 L 4544-3) Lab Interpretation (test Abnormal code = 69917-8) [facility] W/PLT COUNT & AUTO [id number] 05:23:00 Test Item Value Reference Range Interpretation [...] (BEAKER) (test code = 2801) HEMOGLOBIN AND [id number] 05:23:00 Test Item Value Reference Range Interpretation Comments HEMOGLOBIN (BEAKER) (test code = 7.0 GM/DL 11.2-15.7 L 410) HEMATOCRIT (BEAKER) (test code = 23.8 % 34.1-44.9 L 411) HEMOGLOBIN AND [id number] 18:32:00 Test Item Value Reference Range Interpretation Comments HEMOGLOBIN (BEAKER) (test code = 8.5 GM/DL 11.2-15.7 L 410) HEMATOCRIT (BEAKER) (test code = 28.2 % 34.1-44.9 L 411) Shuttle Inspector ID - [id number]-CoV2/RT-PCR (Asymptomatic ONLY)2020-12-22 11:29:00 Test Item Value Reference Range Interpretation Comments SARS-COV2/RT-PCR Negative Not Detected, (test code = Negative, See 18125-1) external report for linked test SARS-COV-2 [facility] (test code = 75211-4) JULIAN (test code = Negative result for [...] of the Act. Fact Sheet for Healthcare Providers:https://www.[employer]/sites/default/f raeann/product/documents/F act_Sheet_HC_Providers_L bms_TPBO-LwK-5.pdf Fact Sheet for Healthcare Patients:https://www.[employer]/sites/default/fi les/product/documents/Fa ct_Sheet_Patients_Lyra_S ARS-CoV-2.pdf Performing Laboratory:[facility], [place] [address] [place], [place] [address]ARS-COV2/RT-PCR ([facility])2020-12-22 11:29:00 Test Item Value Reference Range Interpretation Comments SARS-COV2/RT-PCR (test Negative Not Detected, Negative, code = 8848327) See external report for linked test SARS-COV-2 PERFORMING LAB [facility] GIN (test code = 1912651) Negative result for this test determines that [...] of the Act.Fact Sheet for Healthcare Prov iders:https://www.[employer]/sites/default/files/product/documents/Fact_Sheet_HC _Ctmweblih_Ypan_LDOB-QsM-1.pdfFact Sheet for Healthcare Patients:https://www.[employer]/sites/default/files/product/docume nts/Yxuf_Emkrp_Zfpwmdhi_Vqbe_UQXH-XhQ-5.pdfPerforming Laboratory:[facility], [place] [address]NSRJ-EKWTOCN METER 2020-12-22 05:38:00 Test Item Value Reference Range Interpretation Comments POC-GLUCOSE METER 142 mg/dL 70-110 H : TESTED A T [facility] 6720 (MITA) (test code = MICHEL Royal [facility], 1538) [address]: Shuttle Inspector/Techni sanjeev ID = [id number] for Fede camachocastilloKaylynn Basic metabolic [id number] 04:34:00 Test Item Value Reference Range Interpretation Comments Sodium (test code = 137 meq/L 503-776 8652-2) Potassium (test code = 5.1 meq/L 3.5-5.1 2823-3) Chloride (test code = 111 meq/L 98-107 H 2075-0) CO2 (test code = 19 meq/L 22-29 L 2028-9) BUN (test code = 6 mg/dL 7-21 L 3094-0) Creatinine (test code 1.06 mg/dL 0.57-1.25 = 2160-0) Glucose (test code = 138 mg/dL 70-105 H 2345-7) Calcium (test code = 8.3 mg/dL 8.4-10.2 L 67812-9) EGFR (test code = 54 mL/min/1.73 [place] [address]-7) NOT ACCURATE CREATININE CLEARANCE IN PREDICTING GLOMERULAR FILTRATION RATE . ESTIMATED GFR I S NOT APPLICABLE FOR DIALYSIS PATIENTS. JULIAN (test code = JULIAN) Shuttle Inspector ID - MARCUS W Lab Interpretation Abnormal (test code = 75617-7) [facility] HospitalHepatic function [id number] 04:34:00 Test Item Value Reference Range Interpretation Comments Protein, Total (test 6.2 See_Comment [Autom ated code = 2885-2) message] The system which generated this result transmit gaby reference range : 6.0 - 8.3 gm/dL . The reference range was not u sed to interpret th is result as normal/abnormal . Albumin (test code = 3.0 g/dL 3.5-5 L 13953-2) Total Bilirubin (test 0.7 mg/dL 0.2-1.2 code = 1975-2) Bilirubin, Direct 0.4 mg/dL 0.1-0.5 (test code = 1968-7) Alkaline Phosphatase 105 U/L 40-150 (test code = 6768-6) AST (test code = 34 U/L 5-34 1920-8) ALT (test code = 26 U/L 6-55 1742-6) JULIAN (test code = JULIAN) Shuttle Inspector ID - MARCUS W Lab Interpretation Abnormal (test code = 70291-7) [facility] HospitalPhosphorus2021-07-23 04:34:00 Test Item Value Reference Range Interpretation Comments Phosphorus (test code = 3.3 mg/dL 2.3-4.7 2777-1) JULIAN (test code = JULIAN) Shuttle Inspector ID - MARCUS W Lab Interpretation (test Normal code = 50401-4) [facility] HospitalBASIC METABOLIC [id number] 04:34:00 Test Item Value Reference Range Interpretation [...] S NOT APPLICABLE FOR DIALYSIS PATIEN TS. Shuttle Inspector ID - MARCUS [id number] 04:34:00 Test Item Value Reference Range Interpretation Comments MAGNESIUM (BEAKER) (test code = 1.3 mg/dL 1.6-2.6 L 627) Shuttle Inspector ID Joaquin VELAZQUEZ [id number] 04:34:00 Test Item Value Reference Range Interpretation Comments PHOSPHORUS (BEAKER) (test code = 3.3 mg/dL 2.3-4.7 604) Shuttle Inspector ID Joaquin VELAQZUEZ WHEPATIC FUNCTION [id number] 04:34:00 Test Item Value Reference Range Interpretation [...] (test code = 26 U/L 6-55 347) Shuttle Inspector YOSEF VELAZQUEZ WCBC W/PLT COUNT & AUTO [id number] 04:18:00 Test Item Value Reference Range Interpretation [...] PERCENT (BEAKER) (test code = 2801) POCT-GLUCOSE [id number] 01:24:00 Test Item Value Reference Range Interpretation Comments POC-GLUCOSE METER 121 mg/dL 70-110 H : TESTED A T [facility] 6720 (BEAKER) (test code = MIC[place], 1538) [address]: Shuttle Inspector/Techni sanjeev ID = [id number] for Kaylynn Dill [id number] 19:21:00 Test Item Value Reference Range Interpretation Comments PTT (test code = 25206-3) 29.1 See_Comment [ Automated message] The system Hipui generated this result transmitted ref erence range: 22.5 - 3 6.0 seconds. The re ference range was not u sed to interpret this result as normal/abnor mal. Lab Interpretation (test Normal code = 47385-0) [facility] HospitalAPTT2021-07-22 19:21:00 Test Item Value Reference Range Interpretation Comments PARTIAL THROMBOPLASTIN TIME 29.1 seconds 22.5-36.0 (BEAKER) (test code = 760) Lactic acid, venous [id number] 19:20:00 Test Item Value Reference Range Interpretation Comments Lactate, Venous (test 1.18 mmol/L 0.5-2.2 Specim en code = 2872) markedly hemolyzed JULIAN (test code = JULIAN) Shuttle Inspector ID - DB Lab Interpretation Normal (test code = 91900-4) [facility] HospitalLACTIC ACID, [id number] 19:20:00 Test Item Value Reference Range Interpretation Comments LACTATE BLOOD VENOUS 1.18 mmol/L 0.50-2.20 Specime n markedly (2) (BEAKER) (test hemolyzed code = 2872) Shuttle Inspector ID - DBPROTHROMBIN TIME/[id number] 19:19:00 Test Item Value Reference Range Interpretation Comments PROTIME (BEAKER) 15.4 seconds 11.9-14.2 H (test code = 759) INR (BEAKER) (test 1.24 See_Comment [Automat ed message] code = 370) The system [employer] generated this result transmitted ref erence range: <=5.90. The reference range was not used to int erpret this result as normal/abnormal . RECOMMENDED COUMADIN/WARFARIN INR THERAPY RANGESSTANDARD DOSE: 2.0 - 3.0 Includes: PROPHYLAXIS for venous thrombosis, systemic embolization; TREATMENT for venous thrombosis and/or pulmonary embolus.HIGH RISK: Target INR is 2.5-3.5 for patients with mechanical heart valves.[id number] 19:16:00 Test Item Value Reference Range Interpretation Comments Ammonia (test code = 21 See_[place] n [address]-7) moderately hemolyzed [Automated message] The system which generated this result transmit gaby reference range : 18 - 72 mol/L . The reference range was not u sed to interpret th is result as normal/abnormal . JULIAN (test code = JULIAN) Shuttle Inspector ID - DB Lab Interpretation Normal (test code = 59565-1) [facility] HospitalAMMONIA2021-07-22 19:16:00 Test Item Value Reference Range Interpretation Comments AMMONIA (BEAKER) 21 mol/L 18-72 Specimen mo derately (test code = 348) hemolyzed Shuttle Inspector ID - DBBASIC METABOLIC [id number] 16:19:00 Test Item Value Reference Range Interpretation [...] S NOT APPLICABLE FOR DIALYSIS PATIEN TS. Shuttle Inspector ID - DBHEPATIC FUNCTION [id number] 16:19:00 Test Item Value Reference Range Interpretation [...] (test code = 36 U/L 6-55 347) Shuttle Inspector ID - DBCBC W/PLT COUNT & AUTO [id number] 16:00:00 Test Item Value Reference Range Interpretation [...] (BEAKER) (test code = 2801) BASIC METABOLIC [id number] 14:31:00 Test Item Value Reference Range Interpretation [...] S NOT APPLICABLE FOR DIALYSIS PATIEN TS. Shuttle Inspector ID - PIAYA LHEPATIC FUNCTION [id number] 14:31:00 Test Item Value Reference Range Interpretation [...] (test code = 31 U/L 6-55 347) Shuttle Inspector ID - PICRISTINA LPROTHROMBIN TIME/[id number] 14:12:00 Test Item Value Reference Range Interpretation Comments PROTIME (BEAKER) 15.2 seconds 11.9-14.2 H (test code = 759) INR (BEAKER) (test 1.22 See_Comment [Automat ed message] code = 370) The system Hip[employer] generated this result transmitted ref erence range: <=5.90. The reference range was not used to int erpret this result as normal/abnormal . RECOMMENDED COUMADIN/WARFARIN INR THERAPY RANGESSTANDARD DOSE: 2.0 - 3.0 Includes: PROPHYLAXIS for venous thrombosis, systemic embolization; TREATMENT for venous thrombosis and/or pulmonary embolus.HIGH RISK: Target INR is 2.5-3.5 for patients with mechanical heart valves.CBC W/PLT COUNT & AUTO [id number] 14:08:00 Test Item Value Reference Range Interpretation [...] (BEAKER) (test code = 2801) please check [id number] 12:14:00Scan ResultQUEST NON- INTERFACED LABMendocino State HospitalZinc2021-07-17 19:10:00 Test Item Value Reference Interpretation Comments Range Zinc (test code = 47 See_Comment L This test was 8008299) developed and i ts analytical performance characteristics have been determined by [employer]. It has not been cleared or appr [...] (test code = Performing Lab JULIAN) *MIKE [facility], [address] [place] [phone] Sheri Mccall MD Lab Interpretation Abnormal (test code = 19564-7) [facility] HospitalCopper2021-07-17 11:43:00 Test Item Value Reference Range Interpretation Comments Copper (test 118 See_Comment This test was code = developed and i ts ) analytical perf ormance characteristics have been determined by [employer]. It has not been cl eared or approved by theFDA. This assay has been validated pursu ant to the CLIA regula tions and is used for clinical purpos es. [Automated mess age] The system [employer] h generated this result transmitted ref erence range: 70 - 175 mcg/dL. The ref erence range was not u sed to interpret this result as normal/abnor mal. JULIAN (test code Performing Lab = JULIAN) *MIKE [facility], [address] [place] [phone] Sheri Mccall MD [facility] HospitalANTI-MITOCHONDRIAL AB, REFLEX TO [id number] 07:43:00 Test Item Value Reference Range Interpretation Comments SCAN RESULT (test code = 5986758) Anti-Mitochondrial Ab, reflex to [id number] 07:43:00Scan ResultQUEST DIAGNOSTIC INCORPORATEDMendocino State HospitalHepatitis B e antibody 2020-12-14 20:25:00 Test Item Value Reference Range Interpretation Comments Hep Be NONREACTIVE REFERENCE RANG E: Ab(Anti-Hbe) NONREACTIVE For (test code = additional 3563863) information, pl ease refer tohttp://educat ion.[facility] .mytrax/ faq/VBY518(This link is being provid ed for informational/e ducat ional purposes only.) JULIAN (test code Performing Lab *QDID = JULIAN) [facility] [address] [place] [address] Chalo Burnham MD [facility] HospitalBLOOD [id number] 20:01:00 Test Item Value Reference Range Interpretation Comments CULTURE (BEAKER) (test No growth in 5 days code = 1095) BLOOD [id number] 20:01:00 Test Item Value Reference Range Interpretation Comments CULTURE (BEAKER) (test No growth in 5 days code = 1095) Mitochondrial Ab [id number] 12:49:00 Test Item Value Reference Range Interpretation Comments Anti-Mitocho NEGATIVE NEGATIVE This test was developed nd Abs (test and its analyti iglesia code = performance 6018630) characteristics havebeen determined by [facility].It h as not been cleared or approved by FDA. This as say has been validatedp ursuant to the CLIA reg ulations and is used for clinical purposes. JULIAN (test Performing Lab EZ code = JULIAN) [facility] [address] [place] [address] Gab Mckeon MD, PhD, DEBI [facility] HospitalMitochondrial Ab [id number] 12:49:00 Test Item Value Reference Range Interpretation Comments Mitochondrial Ab TNP See_Comment Test Not Titer (test code = Performed . 8853294) Screening test Negative or Not Detected. Titer notperformed. [Automated message] The system which generated this result transmitted reference range : <1:20. The reference range was not used to interpret this result as normal/abnormal . JULIAN (test code = Performing Lab EZ JULIAN) [facility] [address] [place] [address] Gab Mckeon MD, PhD, DEBI [facility] HospitalActin (Smooth Muscle) Antibody, [id number] 22:22:00 Test Item Value Reference Range Interpretation Comments Anti-Smooth <20 See Note: U Reference Range :<20 Muscle Ab NEGATIVE> OR = 20 (test code = POSITIVE Antibo dies 3713703) recognizing act in are the main compon [...] (test code Performing Lab EZ = JULIAN) [facility] [address] [place] [address] Gab Mckeon MD, PhD, DEBI [facility] HospitalPOCT-GLUCOSE [id number] 16:42:00 Test Item Value Reference Range Interpretation Comments POC-GLUCOSE METER 195 mg/dL 70-110 H : TESTED A T [facility] 6720 (BEAKER) (test code [facility], = 1538) [address]: Shuttle Inspector/Techni sanjeev ID = [id number] for HEATHER DUNLAP Hepatitis B e [id number] 16:32:00 Test Item Value Reference Range Interpretation Comments Hep Be Ag NONREACTIVE REFERENCE RANG ES: (Antigen) NONREACTIVE For (test code = additional 0909396) information, pl ease refer tohttp://educat ion.[facility] .mytrax/ faq/QVX743(This link is being provid ed for informational/e ducat ional purposes only.) JULIAN (test code Performing Lab *QDID = JULIAN) [facility] [address] [place] [address] Chalo Burnham MD [facility] HospitalCarbohydrate antigen 19-9 (CA 19-9)2020-12-13 14:29:00 Test Item Value Reference Range Interpretation Comments CA 19-9 26 U/mL <34 This test was (test code = performed using the 36933-3) Siemens Chemiluminescen t method.Values o btained from different assay methods cannot be used interchangeably .CA19-9 levels, regardl ess of value, should n ot be interpreted as absoluteevidenc e of the presence or abs ence of disease. JULIAN (test Performing Lab EZ code = JULIAN) [facility] [address] [place] [address] Gab Mckeon MD, PhD, DEBI [facility] HospitalHaarjyNboxtsiunkymp3780-48-59 14:13:00 Test Item Value Reference Range Interpretation Comments Ceruloplasmin (test code 28 mg/dL 18-53 = 6391142) JULIAN (test code = JULIAN) Performing Lab *MIKE [facility], [address] [place] [phone] Sheri Mccall MD [facility] HospitalPOCT-GLUCOSE [id number] 11:53:00 Test Item Value Reference Range Interpretation Comments POC-GLUCOSE METER 308 mg/dL 70-110 H : TESTED A T [facility] 6720 (BEAKER) (test code [facility], = 1538) [address]: Shuttle Inspector/Techni sanjeev ID = [id number] for LEWI S, [place] POCT-GLUCOSE [id number] 07:27:00 Test Item Value Reference Range Interpretation Comments POC-GLUCOSE METER 271 mg/dL 70-110 H : TESTED A T [facility] 6720 (BEAKER) (test code [facility], = 1538) [address]: Shuttle Inspector/Techni sanjeev ID = [id number] for LEWI S, [place] Calcium, [id number] 05:41:00 Test Item Value Reference Range Interpretation Comments Calcium, Ion (test code = 1994-3) 1.09 mmol/L 1.12-1.27 L pH, Blood (test code = 51835-6) 7.40 Lab Interpretation (test code = Abnormal 06014-2) [facility] HospitalCALCIUM, [id number] 05:41:00 Test Item Value Reference Range Interpretation Comments CALCIUM IONIZED (BEAKER) (test 1.09 mmol/L 1.12-1.27 L code = 698) PH, BLOOD (BEAKER) (test code = 7.40 1810) COMPREHENSIVE METABOLIC [id number] 04:31:00 Test Item Value Reference Range Interpretation [...] S NOT APPLICABLE FOR DIALYSIS PATIEN TS. Shuttle Inspector ID - MAGDIEL [id number] 04:25:00 Test Item Value Reference Range Interpretation Comments MAGNESIUM (BEAKER) (test code = 1.5 mg/dL 1.6-2.6 L 627) Shuttle Inspector ID - MAGDIEL [id number] 04:25:00 Test Item Value Reference Range Interpretation Comments PHOSPHORUS (BEAKER) (test code = 2.4 mg/dL 2.3-4.7 604) Shuttle Inspector ID - MAGDIEL MCBC W/PLT COUNT & AUTO [id number] 03:59:00 Test Item Value Reference Range Interpretation [...] PERCENT (BEAKER) (test code = 2801) POCT-GLUCOSE [id number] 22:27:00 Test Item Value Reference Range Interpretation Comments POC-GLUCOSE METER 329 mg/dL 70-110 H : TESTED A T [facility] 6720 (BEAKER) (test code = [facility], 1538) [address]: Shuttle Inspector/Techni sanjeev ID = [id number] for JAMILA YOUNGER POCT-GLUCOSE [id number] 17:02:00 Test Item Value Reference Range Interpretation Comments POC-GLUCOSE METER 295 mg/dL 70-110 H : Notified RN/MD: ([facility]) (test code = TESTED AT [facility] 6720 1538) [facility], [address]: Shuttle Inspector/Techni sanjeev ID = [id number] for Ricco BUNDY HEMOGLOBIN AND [id number] 16:35:00 Test Item Value Reference Range Interpretation Comments HEMOGLOBIN (BEAKER) (test code = 7.9 GM/DL 11.2-15.7 L 410) HEMATOCRIT (BEAKER) (test code = 25.0 % 34.1-44.9 L 411) Shuttle Inspector ID - [id number]-GLUCOSE [id number] 11:51:00 Test Item Value Reference Range Interpretation Comments POC-GLUCOSE METER 300 mg/dL 70-110 H : [facility] (BEAKER) (test code [facility], = 1538) [address]: Shuttle Inspector/Techni sanjeev ID = [id number] for LEWI S, [place] POCT-GLUCOSE [id number] 08:17:00 Test Item Value Reference Range Interpretation Comments POC-GLUCOSE METER 229 mg/dL 70-110 H : TESTED A T [facility] 6720 (BEAKER) (test code [facility], = 1538) [address]: Shuttle Inspector/Techni sanjeev ID = [id number] for LEWI S, [place] [id number] 06:36:00 Test Item Value Reference Range Interpretation Comments PHOSPHORUS (BEAKER) (test code = 1.5 mg/dL 2.3-4.7 LL 604) Shuttle Inspector ID - MAGDIEL Hernandez ID - DENA LCOMPREHENSIVE METABOLIC [id number] 04:26:00 Test Item Value Reference Range Interpretation [...] S NOT APPLICABLE FOR DIALYSIS PATIEN TS. Shuttle Inspector ID - MAGDIEL [id number] 04:26:00 Test Item Value Reference Range Interpretation Comments MAGNESIUM (BEAKER) (test code = 1.7 mg/dL 1.6-2.6 627) Shuttle Inspector ID - MAGDIEL MCALCIUM, [id number] 04:18:00 Test Item Value Reference Range Interpretation Comments CALCIUM IONIZED (BEAKER) (test 1.10 mmol/L 1.12-1.27 L code = 698) PH, BLOOD (BEAKER) (test code = 7.41 1810) CBC W/PLT COUNT & AUTO [id number] 03:57:00 Test Item Value Reference Range Interpretation [...] PERCENT (BEAKER) (test code = 2801) POCT-GLUCOSE [id number] 21:58:00 Test Item Value Reference Range Interpretation Comments POC-GLUCOSE METER 139 mg/dL 70-110 H : TESTED A T [facility] 6720 (BEAKER) (test code = MICHEL Royal [facility], 1538) [address]: Shuttle Inspector/Techni sanjeev ID = [id number] for ERIC FREGOSO Hepatitis B surface [id number] 18:57:00 Test Item Value Reference Range Interpretation Comments Hep B S Ab (test code <8.0 See_Comment [Auto mated = 83501-6) message] The system which generated this result transmit gaby reference range : <8.0 mIU/mL. e reference range was not used to interpret this result as normal/abnormal . UJLIAN (test code = JULIAN) Shuttle Inspector ID - DB Lab Interpretation Normal (test code = 55788-3) [facility] [id number] 18:57:00 Test Item Value Reference Range Interpretation Comments HEPATITIS B SURFACE ANTIBODY < mIU/mL <8.0 (BEAKER) (test code = 647) Shuttle Inspector ID - DBHEMOGLOBIN AND [id number] 18:30:00 Test Item Value Reference Range Interpretation Comments HEMOGLOBIN (BEAKER) (test code = 7.6 GM/DL 11.2-15.7 L 410) HEMATOCRIT (BEAKER) (test code = 24.3 % 34.1-44.9 L 411) Shuttle Inspector ID - [id number] ID - [id number]-GLUCOSE [id number] 18:02:00 Test Item Value Reference Range Interpretation Comments POC-GLUCOSE METER 331 mg/dL 70-110 H : TESTED A T [facility] 6720 (BEAKER) (test code [facility]WAR [facility], = 1538) 49386: Shuttle Inspector/Techni sanjeev ID = [id number] for HEATHER DUNLAP Hepatitis C PCR, [id number] 15:48:00 Test Item Value Reference Range Interpretation Comments HCV PCR, Quantitative HCV RNA not detected HCV RNA not (test code = 73012-8) detected JULIAN (test code = JULIAN) This test uses a Real-Time Polymerase Chain Reaction (RT-PCR) methodology and was performed using [employer] Ampliprep/KEZIA TaqMan HCV test kit version 2.0 ([employer]). Reportable range for this assay is 15 - 100,000,000 IU per mL (1.18 - 8.00 Log IU/mL).This test uses a Real-Time Polymerase Chain Reaction (RT-PCR) methodology and was performed using [employer] Ampliprep/KEZIA TaqMan HCV test kit version 2.0 ([employer]). Reportable range for this assay is 15 - 100,000,000 IU per mL (1.18 - 8.00 Log IU/mL). Lab Interpretation Normal (test code = 94523-7) [facility], [id number] 15:48:00 Test Item Value Reference Range Interpretation Comments HCV RESULT COMPONENT HCV RNA not detected HCV RNA not detected (BEAKER) (test code = 2699) This test uses a Real-Time Polymerase Chain Reaction (RT-PCR) methodology and was performed using [employer] Ampliprep/KEZIA TaqMan HCV test kit version 2.0 ([employer]).Reportable range for this assay is 15 - 100,000,000 IU per mL (1.18 - 8.00 Log IU/mL).This test uses a Real-Time Polymerase Chain Reaction (RT-PCR) methodology and was performed using [employer] Ampliprep/KEZIA TaqMan HCV test kit version 2.0 ([employer]).Reportable range for this assay is 15 - 100,000,000 IU per mL (1.18 - 8.00 Log IU/mL).Hepatitis B PCR, [id number] 13:54:00 Test Item Value Reference Range Interpretation Comments HBV PCR, Quantitative HBV DNA not detected HBV DNA not (test code = 28316-4) detected JULIAN (test code = JULIAN) This test uses a Real-Time Polymerase Chain Reaction (RT-PCR) methodology and was performed using [employer] AmpliPrep/KEZIA TaqMan HBV Test, v2.0 ([employer] Reportable range for this assay is 20 - 170,000,000 IU per mL (1.30 - 8.23 Log IU/mL). Lab Interpretation Normal (test code = 70874-4) [facility], [id number] 13:54:00 Test Item Value Reference Range Interpretation Comments HBV RESULT COMPONENT HBV DNA not detected HBV DNA not detected (BEAKER) (test code = 2701) This test uses a Real-Time Polymerase Chain Reaction (RT-PCR) methodology and was performed using [employer] AmpliPrep/KEZIA TaqMan HBV Test, v2.0 ([employer]Reportable range for this assay is 20 - 170,000,000 IU per mL (1.30 - 8.23 Log IU/mL).POCT-GLUCOSE [id number] 12:15:00 Test Item Value Reference Range Interpretation Comments POC-GLUCOSE METER 195 mg/dL 70-110 H : TESTED A T [facility] 6720 (BEAKER) (test code [facility], = 1538) 08627: Shuttle Inspector/Techni sanjeev ID = [id number] for LEWI S, [place] Anti-Nuclear Antibody (AARON)2020-12-11 10:19:00 Test Item Value Reference Range Interpretation Comments AARON (test code = 52022-8) Negative Negative JULIAN (test code = JULIAN) Test performed by IFA method.Test performed by IFA method. Lab Interpretation (test Normal code = 38046-8) [facility]CLE[facility] ANTIBODY (AARON)2020-12-11 10:19:00 Test Item Value Reference Range Interpretation Comments ANTI-NUCLEAR ANTIBODY (AARON) (BEAKER) Negative Negative (test code = 418) Test performed by IFA method.Test performed by IFA method.Urine culture 2020-12-11 08:28:00 Test Item Value Reference Range Interpretation Comments Result (test code = 6463-4) No growth [facility]PO[facility] [id number] 08:12:00 Test Item Value Reference Range Interpretation Comments POC-GLUCOSE METER 262 mg/dL 70-110 H : TESTED Pedro T [facility] 6720 (BEAKER) (test code [facility], = 1538) 02841: Shuttle Inspector/Techni sanjeev ID = [id number] for LEWI S, [place] CALCIUM, [id number] 06:45:00 Test Item Value Reference Range Interpretation Comments CALCIUM IONIZED (BEAKER) (test 1.10 mmol/L 1.12-1.27 L code = 698) PH, BLOOD (AKER) (test code = 7.35 1810) COMPREHENSIVE METABOLIC [id number] 06:28:00 Test Item Value Reference Range Interpretation [...] S NOT APPLICABLE FOR DIALYSIS PATIEN TS. Shuttle Inspector ID - MARCUS [id number] 06:28:00 Test Item Value Reference Range Interpretation Comments MAGNESIUM (BEAKER) (test code = 1.5 mg/dL 1.6-2.6 L 627) Shuttle Inspector ID - MARCUS [id number] 06:28:00 Test Item Value Reference Range Interpretation Comments PHOSPHORUS (BEAKER) (test code = 2.6 mg/dL 2.3-4.7 604) Shuttle Inspector ID - MARCUS WCBC W/PLT COUNT & AUTO [id number] 05:30:00 Test Item Value Reference Range Interpretation [...] (BEAKER) (test code = 2801) HEMOGLOBIN AND [id number] 23:46:00 Test Item Value Reference Range Interpretation Comments HEMOGLOBIN (BEAKER) (test code = 7.9 GM/DL 11.2-15.7 L 410) HEMATOCRIT (BEAKER) (test code = 24.4 % 34.1-44.9 L 411) Shuttle Inspector ID - [id number]-GLUCOSE [id number] 21:51:00 Test Item Value Reference Range Interpretation Comments POC-GLUCOSE METER 330 mg/dL 70-110 H : TESTED A T [facility] 6720 (BEAKER) (test code = [facility], 1538) 62001: Shuttle Inspector/Techni sanjeev ID = [id number] for RA MINERHan ERIC POCT-GLUCOSE [id number] 16:37:00 Test Item Value Reference Range Interpretation Comments POC-GLUCOSE METER 215 mg/dL 70-110 H : TESTED A T [facility] 6720 (BEAKER) (test code = [facility], 1538) 49329: Shuttle Inspector/Techni sanjeev ID = [id number] for Yolie Feliciano CBC W/PLT COUNT & AUTO [id number] 13:45:00 Test Item Value Reference Range Interpretation [...] PERCENT (BEAKER) (test code = 2801) POCT-GLUCOSE [id number] 12:00:00 Test Item Value Reference Range Interpretation Comments POC-GLUCOSE METER 293 mg/dL 70-110 H : TESTED A T [facility] 6720 (BEAKER) (test code = [facility] [place] [place], 1538) 76609: Shuttle Inspector/Techni sanjeev ID = [id number] for CLAUDIO FU Hemoglobin [id number] 07:57:00 Test Item Value Reference Range Interpretation Comments Hemoglobin A1C (test code = 4548-4) 7.7 % 4.3-6.1 H Lab Interpretation (test code = Abnormal 48709-4) [facility]MOGLOBIN [id number] 07:57:00 Test Item Value Reference Range Interpretation Comments HEMOGLOBIN A1C (BEAKER) (test code = 7.7 % 4.3-6.1 H 368) POCT-GLUCOSE [id number] 07:28:00 Test Item Value Reference Range Interpretation Comments POC-GLUCOSE METER 253 mg/dL 70-110 H : TESTED A T [facility] 6720 (BEAKER) (test code = MICHEL [place] [facility], 1538) 50833: Shuttle Inspector/Techni sanjeev ID = [id number] for CLAUDIO FU COMPREHENSIVE METABOLIC [id number] 06:23:00 Test Item Value Reference Range Interpretation [...] S NOT APPLICABLE FOR DIALYSIS PATIEN TS. Shuttle Inspector ID - MARCUS [id number] 06:12:00 Test Item Value Reference Range Interpretation Comments MAGNESIUM (BEAKER) 1.7 mg/dL 1.6-2.6 Specimen slightly (test code = 627) hemolyzed Shuttle Inspector YOSEF VELAZQUEZ [id number] 06:12:00 Test Item Value Reference Range Interpretation Comments PHOSPHORUS (BEAKER) 2.8 mg/dL 2.3-4.7 Specimen slightly (test code = 604) hemolyzed Shuttle Inspector YOSEF VELAZQUEZ WCBC W/PLT COUNT & AUTO [id number] 06:09:00 Test Item Value Reference Range Interpretation [...] 2801) Patient actively bleeding as per NODPROTHROMBIN TIME/[id number] 06:00:00 Test Item Value Reference Range Interpretation Comments PROTIME (BEAKER) 16.5 seconds 11.9-14.2 H (test code = 759) INR (BEAKER) (test 1.35 See_Comment [Automat ed message] code = 370) The system [employer] generated this result transmitted ref erence range: <=5.90. The reference range was not used to int erpret this result as normal/abnormal . RECOMMENDED COUMADIN/WARFARIN INR THERAPY RANGESSTANDARD DOSE: 2.0 - 3.0 Includes: PROPHYLAXIS for venous thrombosis, systemic embolization; TREATMENT for venous thrombosis and/or pulmonary embolus.HIGH RISK: Target INR is 2.5-3.5 for patients with mechanical heart valves.U/S, ABDOMINAL, WITH [id number] 05:50:00cirrhosis history with acute bleed. please check liver dopplers Reason for exam:->cirrhosis history with acute bleed. please check liver dopplers [facility] : 1965 Sex: FFINALREPORT [...] Verified Date/Time: 12/10/2020 05:50:47 US abdominal with [id number] 05:50:00Interface, External Ris In - 12/10/2020 5:53 [...] hepatic and portal vasculature. Signed: Steven Green [facility] Verified Date/Time: 12/10/2020 05:50:47 [facility] [id number] 05:36:00 Test Item Value Reference Range Interpretation Comments CALCIUM IONIZED (BEAKER) (test 0.96 mmol/L 1.12-1.27 L code = 698) PH, BLOOD (BEAKER) (test code = 7.39 1810) POCT-GLUCOSE [id number] 23:40:00 Test Item Value Reference Range Interpretation Comments POC-GLUCOSE METER 296 mg/dL 70-110 H : [facility] (BEAKER) (test code = [facility] [place], 1538) 91043: Shuttle Inspector/Techni sanjeev ID = [id number] for LADI NORRISMICK, [id number] 20:39:00 Test Item Value Reference Range Interpretation Comments ABO Grouping (test code = 2588) A Rh Factor (test code = 2589) POS [facility] HospitalHEMOGLOBIN AND [id number] 19:15:00 Test Item Value Reference Range Interpretation Comments HEMOGLOBIN (BEAKER) (test code = 10.0 GM/DL 11.2-15.7 L 410) HEMATOCRIT (BEAKER) (test code = 31.1 % 34.1-44.9 L 411) Shuttle Inspector ID - [id number] Antigen with HIV-1/2 [id number] 19:10:00 Test Item Value Reference Range Interpretation Comments HIV-1 Antigen with HIV 1&2 Nonreactive Nonreactive Antibody (test code = 66814-6) JULIAN (test code = JULIAN) Shuttle Inspector ID - EO Lab Interpretation (test Normal code = 96813-7) [facility] HospitalHepatitis A antibody, [id number] 19:10:00 Test Item Value Reference Range Interpretation Comments Hep A IgG (test code = Nonreactive Nonreactive 43198-9) JULIAN (test code = JULIAN) Shuttle Inspector ID - EO Lab Interpretation (test Normal code = 12679-4) [facility] ANTIGEN WITH HIV-1/2 [id number] 19:10:00 Test Item Value Reference Range Interpretation Comments HIV-1 ANTIGEN WITH HIV 1\\T\\2 Nonreactive Nonreactive ANTIBODY (2) (BEAKER) (test code = 2586) Shuttle Inspector ID - EOHEPATITIS A ANTIBODY, [id number] 19:10:00 Test Item Value Reference Range Interpretation Comments HEPATITIS A IGG ANTIBODY (BEAKER) Nonreactive Nonreactive (test code = 2797) Shuttle Inspector ID - EOHepatitis panel, [id number] 18:50:00 Test Item Value Reference Range Interpretation Comments Hep A IgM (test code = Nonreactive Nonreactive 51632-7) Hep B C IgM (test code = Nonreactive Nonreactive 70979-0) Hepatitis C Ab (test code = Reactive Nonreactive A 06516-3) HBsAg Screen (test code = Nonreactive Nonreactive 5195-3) JULIAN (test code = JULIAN) Shuttle Inspector ID - EO Lab Interpretation (test Abnormal code = 64197-7) [facility]HEPAT[facility]IS PANEL, [id number] 18:50:00 Test Item Value Reference Range Interpretation Comments HEPATITIS A IGM ANTIBODY (BEAKER) Nonreactive Nonreactive (test code = 498) HEPATITIS B CORE IGM ANTIBODY Nonreactive Nonreactive (BEAKER) (test code = 645) HEPATITIS C ANTIBODY (BEAKER) Reactive Nonreactive A (test code = 367) HEPATITIS B SURFACE ANTIGEN (2) Nonreactive Nonreactive (BEAKER) (test code = 2585) Shuttle Inspector ID - EOHepatitis B core antibody, [id number] 18:49:00 Test Item Value Reference Range Interpretation Comments Hep B Core Total Ab (test Reactive Nonreactive A code = 43235-9) JULIAN (test code = JULIAN) Shuttle Inspector ID - EO Lab Interpretation (test Abnormal code = 08386-4) [facility] CORE ANTIBODY, [id number] 18:49:00 Test Item Value Reference Range Interpretation Comments HEPATITIS B CORE TOTAL ANTIBODY Reactive Nonreactive A (BEAKER) (test code = 497) Shuttle Inspector ID - EOCarcinoembryonic Antigen (CEA)2020-12-09 18:42:00 Test Item Value Reference Range Interpretation Comments CEA, SERUM (test code = 11.8 ng/mL 0-5 H 2038-6) JULIAN (test code = JULIAN) Shuttle Inspector ID - EO Lab Interpretation (test Abnormal code = 71456-8) [facility] HospitalAlpha fetoprotein (AFP), tumor [id number] 18:42:00 Test Item Value Reference Range Interpretation Comments Alpha-Fetoprotein (test code 3.4 ng/mL <10.0 = 1834-1) JULIAN (test code = JULIAN) Shuttle Inspector ID - EO Lab Interpretation (test Normal code = 05439-1) [facility] HospitalCARCINOEMBRYONIC ANTIGEN (CEA)2020-12-09 18:42:00 Test Item Value Reference Range Interpretation Comments CARCINOEMBRYONIC ANTIGEN (BEAKER) 11.8 ng/mL 0.0-5.0 H (test code = 685) Shuttle Inspector ID - EOALPHA FETOPROTEIN (AFP), TUMOR [id number] 18:42:00 Test Item Value Reference Range Interpretation Comments ALPHA-FETOPROTEIN (BEAKER) (test 3.4 ng/mL <10.0 code = 1094) Shuttle Inspector ID - EOVitamin D, 58-[id number] 18:39:00 Test Item Value Reference Range Interpretation Comments Vitamin D 25-Hydroxy 9.7 ng/mL 6.6-49.9 (test code = 2764) JULIAN (test code = JULIAN) Effective 03/12/2017: Reference Range ChangeNew: 6.6-49.9 ng/mL Previous: 13.0-47.8 ng/mL Recommended Vitamin D Target Range: 30.0-40.0 ng/mLOperator ID - EO Lab Interpretation (test Normal code = 05619-0) [facility] HospitalVITAMIN D, [id number] 18:39:00 Test Item Value Reference Range Interpretation Comments VITAMIN D 25-OH (BEAKER) (test code 9.7 ng/mL 6.6-49.9 = 2764) Effective 03/12/2017: Reference Range ChangeNew: 6.6-49.9 ng/mL Previous: 13.0- 47.8 ng/mLRecommendedVitamin D Target Range: 30.0-40.0 ng/mLOperator ID - EO Txyco-6-ryviuvzeonn7014-07-10 18:22:00 Test Item Value Reference Range Interpretation Comments A-1 Antitrypsin (test code = 127.60 mg/dL 90-200 1825-9) JULIAN (test code = JULIAN) Shuttle Inspector ID - EO Lab Interpretation (test Normal code = 58385-7) [facility] HospitalBhvdifGTGVM-8-[id number] 18:22:00 Test Item Value Reference Range Interpretation Comments ALPHA-1 ANTITRYPSIN (BEAKER) 127.60 mg/dL 90.00-200.00 (test code = 502) Shuttle Inspector ID - [id number] 17:32:00 Test Item Value Reference Range Interpretation Comments AMMONIA (BEAKER) (test code = 348) 97 mol/L 18-72 H Shuttle Inspector ID - DBUrinalysis w/Microscopic + Reflex to [id number] 17:27:00 Test Item Value Reference Range Interpretation Comments Color, UA (test code Light Yellow = 5778-6) Clarity, UA (test Clear code = 5767-9) Specific [place], UA 1.017 1.001-1.035 (test code = 5811-5) pH, UA (test code = 6.0 5.0-8.0 5803-2) Protein, UA (test 20 mg/dL Negative A code = 16189-8) Glucose, UA (test Negative Negative code = 365) Ketones, UA (test 10 mg/dL Negative A code = 2514-8) Bilirubin, UA (test Negative Negative code = 47084-1) Blood, UA (test code Moderate Negative A = 91585-7) Nitrite, UA (test Negative Negative code = 5802-4) Leukocytes, UA (test Moderate Negative A code = 5799-2) Urobilinogen, UA 0.2 mg/dL 0.2-1 (test code = 62305-6) RBC, UA (test code = 137 See_Comment [Autom ated 03925-3) message] The system which generated this result [...] . Bacteria, UA (test Few code = 51206-6) Mucus (test code = Rare 8247-9) Squam Epithel, UA <1 See_Comment [Automate d (test code = 11965-8) messag e] The system which generated this result transmitted reference range : /HPF. The reference range was not used to interpret this result as normal/abnormal . Hyaline Casts, UA 4 See_Comment [Automate d (test code = 34441-0) messag e] The system which generated this result transmitted reference range : /LPF. The reference range was not used to interpret this result as normal/abnormal . Crystals, Urine (test Occasional code = 51555-8) Specimen Source (test code = 2795) JULIAN (test code = JULIAN) Shuttle Inspector ID - [auto]Shuttle Inspector ID - tech Lab Interpretation Abnormal (test code = 24316-8) [facility] HospitalURINALYSIS W/ REFLEX URINE [id number] 17:27:00 Test Item Value Reference Range Interpretation [...] = 1521) SOURCE(BEAKER) (test code = 2795) Shuttle Inspector ID - [auto]Shuttle Inspector ID - [id number] 16:11:00 Test Item Value Reference Range Interpretation Comments Ferritin (test code = 30.15 ng/mL 5-275 2276-4) JULIAN (test code = JULIAN) Shuttle Inspector ID - DB Lab Interpretation (test Normal code = 86390-8) [facility] HospitalFERRITIN2021-07-10 16:11:00 Test Item Value Reference Range Interpretation Comments FERRITIN (BEAKER) (test code = 30.15 ng/mL 5.00-275.00 361) Shuttle Inspector ID - DBAcetaminophen [id number] 15:52:00 Test Item Value Reference Range Interpretation Comments Acetaminophen Level <5.7 10-30 L (test code = 3298-7) JULIAN (test code = JULIAN) Therapeutic Range: 10.0-30.0 g/mLToxic Levels: >200.0 g/mL Shuttle Inspector ID - DB Lab Interpretation (test Abnormal code = 56406-7) [facility] HospitalACETAMINOPHEN [id number] 15:52:00 Test Item Value Reference Range Interpretation Comments ACETAMINOPHEN LEVEL (BEAKER) (test < ug/mL 10.0-30.0 L code = 344) Therapeutic Range: 10.0-30.0 g/mLToxic Levels: >200.0 g/mLOperator ID - DB COMPREHENSIVE METABOLIC [id number] 15:52:00 Test Item Value Reference Range Interpretation [...] S NOT APPLICABLE FOR DIALYSIS PATIEN TS. Shuttle Inspector ID - DBIron, TIBC, % sat. (without ferritin)2020-12-09 15:51:00 Test Item Value Reference Range Interpretation Comments Iron (test code = 2498-4) 160.0 ug/dL 40-160 TIBC (test code = 2500-7) 355 ug/dL 250-450 Iron % Saturation (test code 45 % 20-55 = 2502-3) JULIAN (test code = JULIAN) Shuttle Inspector ID - DB Lab Interpretation (test Normal code = 16956-0) [facility] HospitalIRON, TIBC, % SAT. (WITHOUT FERRITIN)2020-12-09 15:51:00 Test Item Value Reference Range Interpretation Comments IRON (BEAKER) (test code = 547) 160.0 ug/dL 40.0-160.0 TOTAL IRON BINDING CAPACITY 355 ug/dL 250-450 (BEAKER) (test code = 769) IRON % SATURATION (2) (BEAKER) 45 % 20-55 (test code = 2590) Shuttle Inspector ID - DBCBC W/PLT COUNT & AUTO [id number] 15:32:00 Test Item Value Reference Range Interpretation [...] PERCENT (BEAKER) (test code = 2801) CHEM [id number] 19:53:00 Test Item Value Reference Range Interpretation Comments Glucose Lvl (test code = Glucose Lvl) 223 65-139 [employer] [id number] 19:53:00 Test Item Value Reference Range Interpretation Comments BUN (test code = BUN) 18 - [employer] [id number] 19:53:00 Test Item Value Reference Range Interpretation Comments Creatinine Lvl (test code = Creatinine 1.37 0.50-1.05 Lvl) [employer] [id number] 19:53:00 Test Item Value Reference Range Interpretation Comments eGFR NON-AFR. [place] (test code = 44 eGFR NON-AFR. [place]) [employer] [id number] 19:53:00 Test Item Value Reference Range Interpretation Comments eGFR (test code = eGFR 51 ) [employer] [id number] 19:53:00 Test Item Value Reference Range Interpretation Comments B/C Ratio (test code = B/C Ratio) 13 6-22 [employer] [id number] 19:53:00 Test Item Value Reference Range Interpretation Comments Sodium Lvl (test code = Sodium Lvl) 141 135-146 [facility]2021-05-24 19:53:00 Test Item Value Reference Range Interpretation Comments Potassium Lvl (test code = Potassium 3.9 3.5-5.3 Lvl) [facility]2021-05-24 19:53:00 Test Item Value Reference Range Interpretation Comments Chloride Lvl (test code = Chloride Lvl) 99 98-110 [place] 292101-05-24 19:53:00 Test Item Value Reference Range Interpretation Comments CO2 (test code = CO2) 31 20-32 [place] 292101-05-24 19:53:00 Test Item Value Reference Range Interpretation Comments Calcium Lvl (test code = Calcium Lvl) 9.6 8.6-10.4 [place] 292101-05-24 19:53:00 Test Item Value Reference Range Interpretation Comments Total Protein (test code = Total 7.6 6.1-8.1 Protein) [place] 292101-05-24 19:53:00 Test Item Value Reference Range Interpretation Comments Albumin Lvl (test code = Albumin Lvl) 3.9 3.6-5.1 [place] 292101-05-24 19:53:00 Test Item Value Reference Range Interpretation Comments Globulin (test code = Globulin) 3.7 1.9-3.7 [place] 292101-05-24 19:53:00 Test Item Value Reference Range Interpretation Comments A/G Ratio (test code = A/G Ratio) 1.1 1.0-2.5 [place] 292101-05-24 19:53:00 Test Item Value Reference Range Interpretation Comments Bili Total (test code = Bili Total) 0.8 0.2-1.2 [place] 292101-05-24 19:53:00 Test Item Value Reference Range Interpretation Comments Alk Phos (test code = Alk Phos) 95 37-153 [place] 292101-05-24 19:53:00 Test Item Value Reference Range Interpretation Comments ASPARTATE TRANSAMINASE (test code = 29 10-35 ASPARTATE TRANSAMINASE) [place] 292101-05-24 19:53:00 Test Item Value Reference Range Interpretation Comments ALANINE AMINOTRANSFERASE (test code = 27 6-29 ALANINE AMINOTRANSFERASE) [place] 292101-05-24 19:53:00 Test Item Value Reference Range Interpretation Comments Ammonia (test code = Ammonia) 114 [facility] [id number] 19:53:00 Test Item Value Reference Range Interpretation Comments Hgb A1C (test code = Hgb A1C) 9.5 [facility]2021-05-24 19:53:00 Test Item Value Reference Range Interpretation Comments Glucose Lvl (test code = Glucose Lvl) 223 65-139 [facility]2021-05-24 19:53:00 Test Item Value Reference Range Interpretation Comments BUN (test code = BUN) 18 7-25 [facility]2021-05-24 19:53:00 Test Item Value Reference Range Interpretation Comments Creatinine Lvl (test code = Creatinine 1.37 0.50-1.05 Lvl) [facility]2021-05-24 19:53:00 Test Item Value Reference Range Interpretation Comments eGFR NON-AFR. [place] (test code = 44 eGFR NON-AFR. [place]) [facility]2021-05-24 19:53:00 Test Item Value Reference Range Interpretation Comments eGFR (test code = eGFR 51 ) [facility]2021-05-24 19:53:00 Test Item Value Reference Range Interpretation Comments B/C Ratio (test code = B/C Ratio) 13 - [facility]2021-05-24 19:53:00 Test Item Value Reference Range Interpretation Comments Sodium Lvl (test code = Sodium Lvl) 141 135-146 [facility]2021-05-24 19:53:00 Test Item Value Reference Range Interpretation Comments Potassium Lvl (test code = Potassium 3.9 3.5-5.3 Lvl) [facility]2021-05-24 19:53:00 Test Item Value Reference Range Interpretation Comments Chloride Lvl (test code = Chloride Lvl) 99 98-110 [facility]2021-05-24 19:53:00 Test Item Value Reference Range Interpretation Comments CO2 (test code = CO2) 31 20-32 [facility]2021-05-24 19:53:00 Test Item Value Reference Range Interpretation Comments Calcium Lvl (test code = Calcium Lvl) 9.6 8.6-10.4 [place] 292101-05-24 19:53:00 Test Item Value Reference Range Interpretation Comments Total Protein (test code = Total 7.6 6.1-8.1 Protein) [facility]2021-05-24 19:53:00 Test Item Value Reference Range Interpretation Comments Albumin Lvl (test code = Albumin Lvl) 3.9 3.6-5.1 [place] [address]-05-24 19:53:00 Test Item Value Reference Range Interpretation Comments Globulin (test code = Globulin) 3.7 1.9-3.7 [facility]2021-05-24 19:53:00 Test Item Value Reference Range Interpretation Comments A/G Ratio (test code = A/G Ratio) 1.1 1.0-2.5 [facility]2021-05-24 19:53:00 Test Item Value Reference Range Interpretation Comments Bili Total (test code = Bili Total) 0.8 0.2-1.2 [place] 292101-05-24 19:53:00 Test Item Value Reference Range Interpretation Comments Alk Phos (test code = Alk Phos) 95 37-153 [facility]2021-05-24 19:53:00 Test Item Value Reference Range Interpretation Comments ASPARTATE TRANSAMINASE (test code = 29 10-35 ASPARTATE TRANSAMINASE) [facility]2021-05-24 19:53:00 Test Item Value Reference Range Interpretation Comments ALANINE AMINOTRANSFERASE (test code = 27 6-29 ALANINE AMINOTRANSFERASE) [facility]2021-05-24 19:53:00 Test Item Value Reference Range Interpretation Comments Ammonia (test code = Ammonia) 114 [facility] [id number] 19:53:00 Test Item Value Reference Range Interpretation Comments Hgb A1C (test code = Hgb A1C) 9.5 [facility]2021-05-24 19:53:00 Test Item Value Reference Range Interpretation Comments Glucose Lvl (test code = Glucose Lvl) 223 65-139 [facility]2021-05-24 19:53:00 Test Item Value Reference Range Interpretation Comments BUN (test code = BUN) 18 7-25 [place] 292101-05-24 19:53:00 Test Item Value Reference Range Interpretation Comments Creatinine Lvl (test code = Creatinine 1.37 0.50-1.05 Lvl) [facility]2021-05-24 19:53:00 Test Item Value Reference Range Interpretation Comments eGFR NON-AFR. [place] (test code = 44 eGFR NON-AFR. [place]) [place] 292101-05-24 19:53:00 Test Item Value Reference Range Interpretation Comments eGFR (test code = eGFR 51 ) [place] 292101-05-24 19:53:00 Test Item Value Reference Range Interpretation Comments B/C Ratio (test code = B/C Ratio) 13 6-22 [place] 292101-05-24 19:53:00 Test Item Value Reference Range Interpretation Comments Sodium Lvl (test code = Sodium Lvl) 141 135-146 [place] 292101-05-24 19:53:00 Test Item Value Reference Range Interpretation Comments Potassium Lvl (test code = Potassium 3.9 3.5-5.3 Lvl) [place] 292101-05-24 19:53:00 Test Item Value Reference Range Interpretation Comments Chloride Lvl (test code = Chloride Lvl) 99 98-110 [place] 292101-05-24 19:53:00 Test Item Value Reference Range Interpretation Comments CO2 (test code = CO2) 31 20-32 [place] 292101-05-24 19:53:00 Test Item Value Reference Range Interpretation Comments Calcium Lvl (test code = Calcium Lvl) 9.6 8.6-10.4 [place] 292101-05-24 19:53:00 Test Item Value Reference Range Interpretation Comments Total Protein (test code = Total 7.6 6.1-8.1 Protein) [facility]2021-05-24 19:53:00 Test Item Value Reference Range Interpretation Comments Albumin Lvl (test code = Albumin Lvl) 3.9 3.6-5.1 [place] 292101-05-24 19:53:00 Test Item Value Reference Range Interpretation Comments Globulin (test code = Globulin) 3.7 1.9-3.7 [place] 292101-05-24 19:53:00 Test Item Value Reference Range Interpretation Comments A/G Ratio (test code = A/G Ratio) 1.1 1.0-2.5 [place] 292101-05-24 19:53:00 Test Item Value Reference Range Interpretation Comments Bili Total (test code = Bili Total) 0.8 0.2-1.2 [place] 292101-05-24 19:53:00 Test Item Value Reference Range Interpretation Comments Alk Phos (test code = Alk Phos) 95 37-153 [place] 292101-05-24 19:53:00 Test Item Value Reference Range Interpretation Comments ASPARTATE TRANSAMINASE (test code = 29 10-35 ASPARTATE TRANSAMINASE) [facility]2021-05-24 19:53:00 Test Item Value Reference Range Interpretation Comments ALANINE AMINOTRANSFERASE (test code = 27 6-29 ALANINE AMINOTRANSFERASE) [place] [address]2101-05-24 19:53:00 Test Item Value Reference Range Interpretation Comments Ammonia (test code = Ammonia) 114 [place] [id number] 19:53:00 Test Item Value Reference Range Interpretation Comments Hgb A1C (test code = Hgb A1C) 9.5 [facility]2021-05-24 19:53:00 Test Item Value Reference Range Interpretation Comments ALANINE AMINOTRANSFERASE (test code = 27 6-29 ALANINE AMINOTRANSFERASE) [facility]2021-05-24 19:53:00 Test Item Value Reference Range Interpretation Comments Ammonia (test code = Ammonia) 114 [place] 503931-05-24 19:53:00 Test Item Value Reference Range Interpretation Comments Hgb A1C (test code = Hgb A1C) 9.5 [place] [address]2101-05-24 19:53:00 Test Item Value Reference Range Interpretation Comments Glucose Lvl (test code = Glucose Lvl) 223 65-139 [place] 292101-05-24 19:53:00 Test Item Value Reference Range Interpretation Comments BUN (test code = BUN) 18 7-25 [place] 292101-05-24 19:53:00 Test Item Value Reference Range Interpretation Comments Creatinine Lvl (test code = Creatinine 1.37 0.50-1.05 Lvl) [facility]2021-05-24 19:53:00 Test Item Value Reference Range Interpretation Comments eGFR NON-AFR. [place] (test code = 44 eGFR NON-AFR. [place]) [facility]2021-05-24 19:53:00 Test Item Value Reference Range Interpretation Comments eGFR (test code = eGFR 51 ) [facility]2021-05-24 19:53:00 Test Item Value Reference Range Interpretation Comments B/C Ratio (test code = B/C Ratio) 13 6-22 [place] [address]2101-05-24 19:53:00 Test Item Value Reference Range Interpretation Comments Sodium Lvl (test code = Sodium Lvl) 141 135-146 [place] [address]2101-05-24 19:53:00 Test Item Value Reference Range Interpretation Comments Potassium Lvl (test code = Potassium 3.9 3.5-5.3 Lvl) [place] [address]2101-05-24 19:53:00 Test Item Value Reference Range Interpretation Comments Chloride Lvl (test code = Chloride Lvl) 99 98-110 [facility]2021-05-24 19:53:00 Test Item Value Reference Range Interpretation Comments CO2 (test code = CO2) 31 20-32 [place] [address]2101-05-24 19:53:00 Test Item Value Reference Range Interpretation Comments Calcium Lvl (test code = Calcium Lvl) 9.6 8.6-10.4 [place] [address]2101-05-24 19:53:00 Test Item Value Reference Range Interpretation Comments Total Protein (test code = Total 7.6 6.1-8.1 Protein) [facility]2021-05-24 19:53:00 Test Item Value Reference Range Interpretation Comments Albumin Lvl (test code = Albumin Lvl) 3.9 3.6-5.1 [place] [address]2101-05-24 19:53:00 Test Item Value Reference Range Interpretation Comments Globulin (test code = Globulin) 3.7 1.9-3.7 [place] 292101-05-24 19:53:00 Test Item Value Reference Range Interpretation Comments A/G Ratio (test code = A/G Ratio) 1.1 1.0-2.5 [place] [address]2101-05-24 19:53:00 Test Item Value Reference Range Interpretation Comments Bili Total (test code = Bili Total) 0.8 0.2-1.2 [place] [address]2101-05-24 19:53:00 Test Item Value Reference Range Interpretation Comments Alk Phos (test code = Alk Phos) 95 37-153 [facility] [id number] 19:53:00 Test Item Value Reference Range Interpretation Comments ASPARTATE TRANSAMINASE (test code = 29 10-35 ASPARTATE TRANSAMINASE) [facility]
--- NOTE | 2023-03-29 11:50 | RAD REPORT ---
EXAM DESCRIPTION: RAD - Wrist Right 3 View - 03/29/2023 11:28 am CLINICAL HISTORY: PAIN COMPARISON: No comparisons FINDINGS/IMPRESSION: No acute fracture. No malalignment. No significant focal degenerative changes.
--- NOTE | 2023-03-29 14:32 | EDPHYS ---
Physician Documentation [facility] Name: Cheyenne Mcgill Age: 57 yrs Sex: Female : 1965 Arrival Date: 03/29/2023 Time: 10:51 Bed IW1 Private MD: ED Physician Dhruv Fong HPI: 03/30 09:24 This 57 yrs old Female presents to ER via Wheelchair with complaints of wrist pain. sb4 09:24 The patient or guardian complains of injury, pain. The complaints affect the right sb4 wrist. Context: The problem was sustained at home, resulted from a fall. Onset: The symptoms/episode began/occurred 3 day(s) ago. Treatment prior to arrival includes: no previous treatment. Modifying factors: The symptoms are alleviated by nothing. the symptoms are aggravated by movement. Associated signs and symptoms: The patient has no apparent associated signs or symptoms. Severity of symptoms: in the emergency department the symptoms a " 10" out of "10". The patient has not experienced similar symptoms in the past. The patient has not recently seen a physician. Historical: - Allergies: 03/29 11:03 No Known Drug Allergies; hb - PMHx: 11:03 cirrhosis of liver; low platelets; splenomegaly; Diabetes - NIDDM; Hepatitis; hb - PSHx: 11:03 section; hb - Immunization history:: Adult Immunizations up to date. - Social history:: Smoking status: Patient reports the use of cigarette tobacco products, smokes one-half pack cigarettes per day. ROS: 03/30 09:24 Constitutional: Negative for fever, chills, and weight loss, sb4 MS/extremity: Positive for injury or acute deformity, decreased range of motion, pain, of the right wrist, All other systems are negative, Exam: 09:24 Constitutional: This is a well developed, well nourished patient who is awake, alert, sb4 and in no acute distress. Head/Face: Normocephalic, atraumatic. Eyes: Extra-ocular motions intact. Periorbital areas with no swelling, redness, or edema. ENT: Mucous membranes moist. Cardiovascular: Regular rate and rhythm with a normal S1 and S2. Respiratory: Lungs have equal breath sounds bilaterally, clear to auscultation and percussion. No rales, rhonchi or wheezes noted. No increased work of breathing, no retractions or nasal flaring. Abdomen/GI: Soft, non-tender, no distension. Skin: Warm, dry with normal turgor. Normal color with no rashes, no lesions, and no evidence of cellulitis. Neuro: Awake and alert, GCS 15, oriented to person, place, time, and situation. Motor strength 5/5 in all extremities. Sensory grossly intact. 09:24 Musculoskeletal/extremity: ROM: limited active range of motion due to pain, limited passive range of motion due to pain, Circulation is intact in all extremities. Pulses: are normal with no appreciated deficits, Perfusion: the patient is normally perfused throughout, Perfusion: the extremity is normally perfused throughout, Sensation intact. Vital Signs: 03/29 11:02 BP 136 / 79; Pulse 55; Resp 16; Temp 98.4; Pulse Ox 97% on R/A; Weight 48.08 kg; Height hb 4 ft. 11 in. ; Pain 10/10; Head Cir 59; 11:02 Body Mass Index 21.41 (48.08 kg, 149.86 cm) hb 11:02 Head Circumference 59 cm - Percentile 0.0 % hb 11:02 Pain Scale: Adult hb MDM: 11:05 Patient medically screened. sb4 03/30 09:24 Differential diagnosis: dislocation, open fracture, closed fracture, contusion, sb4 abrasion, tendonitis. Data reviewed: vital signs, nurses notes, radiologic studies, and as a result, I will discharge patient. Counseling: I had a detailed discussion with the patient and/or guardian regarding the historical points, exam findings, and any diagnostic results supporting the discharge/admit diagnosis, radiology results, to return to the emergency department if symptoms worsen or persist or if there are any questions or concerns that arise at home. ED course: patient eloped before i could discuss radiology findings and provide a splint/other supportive care. 03/29 11:04 Order name: Wrist Right 3 View XRAY; Complete Time: 11:51 hb Administered Medications: No medications were administered Disposition Summary: 03/29/23 14:32 Discharge Ordered Notes: Location: Home sb4 Problem: new sb4 Symptoms: are unchanged sb4 Condition: Stable sb4 Diagnosis - Other specified sprain of right wrist sb4 Followup: sb4 - With: Emergency Department - When: As needed - Reason: Trouble breathing, Worsening of condition Forms: - Medication Reconciliation Form sb4 - Thank You Letter sb4 - Antibiotic Education sb4 - Prescription Opioid Use sb4 - Patient Portal Instructions sb4 - Leadership Thank You Letter sb4 Addendum: 16:43 I was immediately available for consultation during this patient's visit. I did not e c2 personally see the patient or guide the patient's care.. Signatures: Dispatcher [employer] Nishi Benítez RN RN hb Brown, Sophia, PA-C PA-C sb4 Dhruv Fong MD MD ec2
--- NOTE | 2023-03-29 14:32 | ER ---
Nurse's Notes [facility] Name: Cheyenne Mcgill Age: 57 yrs Sex: Female : 1965 Arrival Date: 03/29/2023 Time: 10:51 Bed IW1 Private MD: Diagnosis: Other specified sprain of right wrist Presentation: 03/29 11:02 Chief complaint: Fell from recliner while asleep 3 days ago, c/o right wrist pain hb 10/10. Coronavirus screen: At this time, the client does not indicate any symptoms associated with coronavirus-19. Ebola Screen: No symptoms or risks identified at this time. Initial Sepsis Screen: Does the patient meet any 2 criteria? No. Patient's initial sepsis screen is negative. Does the patient have a suspected source of infection? No. Patient's initial sepsis screen is negative. Risk Assessment: Do you want to hurt yourself or someone else? Patient reports no desire to harm self or others. Onset of symptoms was March 26, 2023. 11:02 Method Of Arrival: Wheelchair hb 11:02 Acuity: ABDULKADIR 4 hb Historical: - Allergies: 11:03 No Known Drug Allergies; hb - PMHx: 11:03 cirrhosis of liver; low platelets; splenomegaly; Diabetes - NIDDM; Hepatitis; hb - PSHx: 11:03 section; hb - Immunization history:: Adult Immunizations up to date. - Social history:: Smoking status: Patient reports the use of cigarette tobacco products, smokes one-half pack cigarettes per day. Vital Signs: 11:02 BP 136 / 79; Pulse 55; Resp 16; Temp 98.4; Pulse Ox 97% on R/A; Weight 48.08 kg; Height hb 4 ft. 11 in. ; Pain 10/10; Head Cir 59; 11:02 Body Mass Index 21.41 (48.08 kg, 149.86 cm) hb 11:02 Head Circumference 59 cm - Percentile 0.0 % hb 11:02 Pain Scale: Adult hb ED Course: 10:55 Patient arrived in ED. im 11:03 Triage completed. hb 11:03 Arm band placed on. hb 11:05 Katerine Medina PA-C is PHCP. sb4 11:05 Dhruv Fong MD is Attending Physician. sb4 11:30 Wrist Right 3 View XRAY In Process Unspecified. EDMS Administered Medications: No medications were administered Outcome: 14:32 Discharge ordered by . [email or web address] 15:17 Patient left the ED. manuel Signatures: Dispatcher [employer] EDMS Nishi Mojica, RN RN Daniel Bhakta RN RN justin7 Katerine Medina, PA-Lia PA-Lia sb4 Heidy Corrales
[2023-03-29 15:22] VITALS: BP 136/79; TEMP 98.4; O2SAT 97
== END 2023-03-29 15:17 | disposition home or self-care (01) ==
LOC: ER 10:51
DX: S63.591A Other specified sprain of right wrist, initial encounter (principal); F17.210 Nicotine dependence, cigarettes, uncomplicated
CPT/HCPCS: 99281

== ENCOUNTER → 2023-07-01 | Emergency (ER) | payer BC ==
[~2023-07-01] MED LIST: CEFTRIAXONE 1000 MG/VIAL ONE; FENTANYL CITR 100 MCG/2 ML ONE; NA CHLORIDE 0.9% 50 ML ONE; ONDANSETRON 4 MG/2 ML VIAL ONE; PANTOPRAZOLE 40 MG INJ ONE
--- OUTSIDE RECORDS SUMMARY | 2023-07-01 17:14 | XMS REPORT | Clinical Summary ---
Author Name Unknown Organization [facility] Address [address] [place] [address] Care Team Providers Care Transcript Clerk Name Role Phone Unavailable Primary Care Provider Unavailabl e Immunizations Name Administration Dates Next Due Feliz SARS-CoV-2 Vaccination 08/12/2020 Social History Tobacco Use Types Packs/Day Years Used Date Smoking Tobacco: Never Assessed Sex and Gender Information Value Date Recorded Sex Assigned at Not on file Gender Identity Not on file Sexual Orientation Not on file Plan of Treatment Not on file
--- NOTE | 2023-07-01 18:35 | RAD REPORT ---
EXAM DESCRIPTION: RAD - Chest Single View - 07/01/2023 6:28 pm CLINICAL HISTORY: COUGH Chest pain. COMPARISON: Chest Single View dated 01/31/2023; Chest Single View dated 01/30/2023; Chest Single View d ated 01/29/2023; Abdomen 1 View (KUB) dated 01/28/2023 FINDINGS: Portable technique limits examination quality. The lungs are grossly clear. The heart is normal in size. No displaced fractures. IMPRESSION: No acute intrathoracic process suspected.
[2023-07-01 19:57] LABS: MPV 8.9 fL (7.6-11.3)
[2023-07-01 20:06] LABS: Protime INR 1.3
[2023-07-01 20:09] LABS: Albumin 3.2 g/dL (3.4-5.0); Bilirubin Direct 0.3 mg/dL (0-0.2); Bilirubin Indirect, Calculated 0.3 mg/dL (0.2-0.8); Bilirubin Total 0.6 mg/dL (0.2-1.0); Magnesium 1.9 mg/dL (1.6-2.4); Potassium 4.7 mEq/L (3.5-5.1); Protein, Total 7.8 g/dL (6.4-8.2)
[2023-07-01 20:12] LABS: Absolute Lymphocytes (CBC) 0.6 K/uL (0.7-4.9); Hematocrit 24.5 % (36.0-45.0); Lymphocytes % 27.5 % (15.3-44.8); MCV 80.1 fL (80-100); RBC Red Blood Cell Count 3.06 M/uL (3.86-4.86)
--- NOTE | 2023-07-01 20:13 | ER ---
Nurse's Notes [facility] Name: Cheyenne Mcgill Age: 57 yrs Sex: Female : 1965 Arrival Date: 07/01/2023 Time: 17:11 Bed 13 Private MD: Cristian Tamayo R Diagnosis: Anemia, unspecified;Other cirrhosis of liver;Chronic viral hepatitis C;Other ascites-MODERATE TO TENSE;Secondary thrombocytopenia-CIRRHOSIS;Abnormal coagulation profile Presentation: 07/01 17:19 Chief complaint: Patient states: Pt sent to ED by PCP for low hemoglobin and platelet tl4 counts. Pt states she has ongoing rectal bleeding. Pt states she has also had bleeding from mouth and nose x 2 weeks. Pt has distended abdomen which she states is result of rectal exam yesterday. Coronavirus screen: At this time, the client does not indicate any symptoms associated with coronavirus-19. Ebola Screen: No symptoms or risks identified at this time. Initial Sepsis Screen: Does the patient meet any 2 criteria? No. Patient's initial sepsis screen is negative. Does the patient have a suspected source of infection? No. Patient's initial sepsis screen is negative. Risk Assessment: Do you want to hurt yourself or someone else? Patient reports no desire to harm self or others. Onset of symptoms was June 30, 2023. 17:19 Method Of Arrival: Ambulatory tl4 17:19 Acuity: ABDULKADIR 3 tl4 Triage Assessment: 17:27 General: Appears uncomfortable, Behavior is calm, cooperative. Pain: Complains of pain tl4 in abdomen. EENT: No deficits noted. No signs and/or symptoms were reported regarding the EENT system. Neuro: No deficits noted. Cardiovascular: No deficits noted. Respiratory: No deficits noted. GI: Abdomen is distended, Reports rectal bleeding. : No deficits noted. No signs and/or symptoms were reported regarding the genitourinary system. Derm: No deficits noted. No signs and/or symptoms reported regarding the dermatologic system. 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 - Social history:: Smoking status: Patient reports the use of cigarette tobacco products, smokes one-half pack cigarettes per day. Screenin:40 [facility] ED Fall Risk Assessment (Adult) History of falling in the last 3 months, jw7 including since admission No falls in past 3 months (0 pts) Confusion or Disorientation No (0 pts) Intoxicated or Sedated No (0 pts) Impaired Gait No (0 pts) Mobility Assist Device Used No (0 pt) Altered Elimination Yes (1 pt) Score/Fall Risk Level 0 - 2 = Low Risk Oriented to surroundings, Maintained a safe environment, Educated pt \T\ family on fall prevention, incl call for assistance when getting out of bed. Abuse screen: Denies threats or abuse. Denies injuries from another. Nutritional screening: No deficits noted. Tuberculosis screening: No symptoms or risk factors identified. Assessment: 19:00 General: See Triage Assessment. jw7 20:00 General: Pt c/o pain to abdomen rated 8/10, Provider Notified. . jw7 20:33 Reassessment: Patient appears in no apparent distress at this time. No changes from jw7 previously documented assessment. Patient and/or family updated on plan of care and expected duration. Pain level reassessed. Patient is alert, oriented x 3, equal unlabored respirations, skin warm/dry/pink. 21:30 Reassessment: Patient appears in no apparent distress at this time. No changes from jw7 previously documented assessment. Patient and/or family updated on plan of care and expected duration. Pain level reassessed. Patient is alert, oriented x 3, equal unlabored respirations, skin warm/dry/pink. 22:30 Reassessment: Patient appears in no apparent distress at this time. Patient and/or jw7 family updated on plan of care and expected duration. Pain level reassessed. Patient is alert, oriented x 3, equal unlabored respirations, skin warm/dry/pink. Patient states feeling better. Patient states symptoms have improved. 23:20 General: Transfer Report given to Receiving Nurse at [facility] . jw7 Vital Signs: 17:19 BP 149 / 82; Pulse 85; Resp 16; Temp 98.5; Pulse Ox 100% on R/A; Weight 54.43 kg; tl4 Height 4 ft. 11 in. ; Pain 10/10; 20:33 BP 135 / 88; Pulse 76; Resp 16 S; Pulse Ox 100% on R/A; jw7 21:30 BP 125 / 54; Pulse 80; Resp 18 S; Pulse Ox 100% on R/A; jw7 22:30 BP 123 / 72; Pulse 92; Resp 16 S; Pulse Ox 100% on R/A; jw7 17:19 Body Mass Index 24.24 (54.43 kg, 149.86 cm) tl4 17:19 Pain Scale: Adult tl4 Bobby Coma Score: 20:04 Eye Response: spontaneous(4). Motor Response: obeys commands(6). Verbal Response: anita oriented(5). Total: 15. ED Course: 17:13 Patient arrived in ED. rg4 17:14 Cristian Tamayo MD is Private Physician. rg4 17:19 Leonard Alegre MD is Attending Physician. anita 17:26 Triage completed. tl4 17:26 Arm band placed on right wrist. tl4 18:30 XRAY Chest (1 view) In Process Unspecified. EDMS 19:39 Sarah Perrin, MARIA M is Primary Nurse. jw7 19:39 Initial lab(s) drawn, by [facility], sent to lab. EKG done, by ED staff, reviewed by Leonard Alegre MD T\T\S collected, blood band applied to patient. Inserted saline lock: 22 gauge in right antecubital area, using aseptic technique. Blood collected. 19:40 Patient has correct armband on for positive identification. Bed in low position. Call [facility] light in reach. 20:30 Dr. Alegre initiated transfer to [facility], spoke with Mary Ross. 20:55 Pt accepted for transfer to [facility] Rm: [id number] Chacko, Afaq \T\ 2042 per Mary Ross. wm 22:07 LJ accepted for transport with ETA as soon as they are down with another call. 23:19 Provided Education on: need for transfer. 7 23:19 No provider procedures requiring assistance completed. Patient transferred, IV remains [address] Administered Medications: 19:39 Drug: Pantoprazole IVP 40 mg IVP once Route: IVP; Site: right antecubital; jw7 23:09 Follow up: Response: No adverse reaction jw7 20:44 Drug: fentaNYL (PF) IVP 25 mcg IVP once Route: IVP; Site: right antecubital; jw7 23:09 Follow up: Response: No adverse reaction; Marked relief of symptoms jw7 20:44 Drug: Ondansetron IVP 4 mg IVP once; over 2 minutes Route: IVP; Site: right antecubital;jw7 23:09 Follow up: Response: No adverse reaction jw7 20:44 Drug: Rocephin IV 1 grams IV at per protocol once; Given slow IV push per pharmacy jw7 instructions Route: IV; Rate: per protocol; Site: right antecubital; 23:08 Follow up: Response: No adverse reaction; IV Status: Completed infusion; IV Intake: [id number] 22:08 Drug: fentaNYL (PF) IVP 25 mcg IVP once Route: IVP; Site: right antecubital; jw7 23:09 Follow up: Response: No adverse reaction; Marked relief of symptoms jw7 Medication: 23:19 VIS not applicable for this client. jw7 Intake: 23:08 IV: 50ml; Total: 50ml. jw7 Outcome: 20:13 ER care complete, transfer ordered by . anita 23:19 Transferred by ground EMS to [facility] jw7 23:19 Condition: stable 23:19 Instructed on the need for transfer, Demonstrated understanding of instructions, 23:20 Patient left the ED. jw7 Signatures: Dispatcher [employer] EDLeonard Almeida MD MD cha Garcia, Rubi rg4 Crystal Palomo Jodi, RN RN jw7 Rodrigo Marvin tl4 Corrections: (The following items were deleted from the chart) 23:08 21:30 Reassessment: Patient appears in no apparent distress at this time. Patient jw7 and/or family updated on plan of care and expected duration. Pain level reassessed. Patient is alert, oriented x 3, equal unlabored respirations, skin warm/dry/pink. jw7 23:08 22:30 Reassessment: Patient appears in no apparent distress at this time. No changes jw7 from previously documented assessment. Patient and/or family updated on plan of care and expected duration. Pain level reassessed. Patient is alert, oriented x 3, equal unlabored respirations, skin warm/dry/pink. jw7 23:12 22:45 BP 126 / 68; Pulse 88bpm; Resp 17bpm; Spontaneous; Pulse Ox 100% RA; jw7 jw7
--- NOTE | 2023-07-01 20:13 | EDPHYS ---
Physician Documentation [facility] Name: Cheyenne Mcgill Age: 57 yrs Sex: Female : 1965 Arrival Date: 07/01/2023 Time: 17:11 Bed 13 Private MD: Cristian Tamayo R ED Physician Leonard Alegre HPI: 07/01 20:04 This 57 yrs old Female presents to ER via Ambulatory with complaints of anita Abnormal Lab Results. 20:04 The patient presents with abdominal pain abdominal distention in the upper abdomen, in anita the lower abdomen. Onset: The symptoms/episode began/occurred 5 day(s) ago. HX OF CIRRHOSIS. Onset: The symptoms/episode began/occurred 3 day(s) ago. The symptoms do not radiate. Associated signs and symptoms: none. The symptoms are described as crampy. Severity of pain: At its worst the pain was mild in the emergency department the pain is unchanged. Severity of symptoms: At their worst the symptoms were moderate in the emergency department the symptoms are unchanged. 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 - Social history:: Smoking status: Patient reports the use of cigarette tobacco products, smokes one-half pack cigarettes per day. ROS: 20:04 Constitutional: Negative for fever, chills, and weight loss, Eyes: Negative for injury, anita pain, redness, and discharge, ENT: Negative for injury, pain, and discharge, Neck: Negative for injury, pain, and swelling, Cardiovascular: Negative for chest pain, palpitations, and edema, Respiratory: Negative for shortness of breath, cough, wheezing, and pleuritic chest pain, Back: Negative for injury and pain, : Negative for injury, bleeding, discharge, and swelling, Skin: Negative for injury, rash, and discoloration, Neuro: Negative for headache, weakness, numbness, tingling, and seizure, Psych: Negative for depression, anxiety, suicide ideation, homicidal ideation, and hallucinations, Allergy/Immunology: Negative for hives, rash, and allergies, Endocrine: Negative for neck swelling, polydipsia, polyuria, polyphagia, and marked weight changes, Hematologic/Lymphatic: Negative for swollen nodes, abnormal bleeding, and unusual bruising, 20:04 Abdomen/GI: Positive for abdominal pain, abdominal distension, 20:04 MS/extremity: Positive for pain, swelling, of the right leg and left leg, Exam: 20:04 Constitutional: This is a well developed, well nourished patient who is awake, alert, anita and in no acute distress. Head/Face: Normocephalic, atraumatic. Eyes: Pupils equal round and reactive to light, extra-ocular motions intact. Lids and lashes normal. Conjunctiva and sclera are non-icteric and not injected. Cornea within normal limits. Periorbital areas with no swelling, redness, or edema. ENT: Nares patent. No nasal discharge, no septal abnormalities noted. Tympanic membranes are normal and external auditory canals are clear. Oropharynx with no redness, swelling, or masses, exudates, or evidence of obstruction, uvula midline. Mucous membranes moist. Neck: Trachea midline, no thyromegaly or masses palpated, and no cervical lymphadenopathy. Supple, full range of motion without nuchal rigidity, or vertebral point tenderness. No Meningismus. Chest/axilla: Normal chest wall appearance and motion. Nontender with no deformity. No lesions are appreciated. Cardiovascular: Regular rate and rhythm with a normal S1 and S2. No gallops, murmurs, or rubs. Normal PMI, no JVD. No pulse deficits. Respiratory: Lungs have equal breath sounds bilaterally, clear to auscultation and percussion. No rales, rhonchi or wheezes noted. No increased work of breathing, no retractions or nasal flaring. Back: No spinal tenderness. No costovertebral tenderness. Full range of motion. Skin: Warm, dry with normal turgor. Normal color with no rashes, no lesions, and no evidence of cellulitis. Neuro: Awake and alert, GCS 15, oriented to person, place, time, and situation. Cranial nerves II-XII grossly intact. Motor strength 5/5 in all extremities. Sensory grossly intact. Cerebellar exam normal. Normal gait. 20:04 ECG was reviewed by the Attending Physician. 20:04 Abdomen/GI: Inspection: distension, that is moderate, Bowel sounds: normal, Palpation: mild abdominal tenderness, in all quadrants, Rectal exam: hemorrhoid(s), external, tenderness, Hernia: not appreciated, 20:04 Musculoskeletal/extremity: ROM: no acute changes, Circulation is intact in all extremities. Sensation intact. Compartment Syndrome exam of affected extremity: is normal. Weight bearing: able to fully bear weight, DVT Exam: negative Homans' sign noted on exam, no appreciated bluish discoloration, no erythema, no increased warmth, pain, swelling, tenderness, Vital Signs: 17:19 BP 149 / 82; Pulse 85; Resp 16; Temp 98.5; Pulse Ox 100% on R/A; Weight 54.43 kg; tl4 Height 4 ft. 11 in. ; Pain 10/10; 20:33 BP 135 / 88; Pulse 76; Resp 16 S; Pulse Ox 100% on R/A; jw7 21:30 BP 125 / 54; Pulse 80; Resp 18 S; Pulse Ox 100% on R/A; jw7 22:30 BP 123 / 72; Pulse 92; Resp 16 S; Pulse Ox 100% on R/A; jw7 17:19 Body Mass Index 24.24 (54.43 kg, 149.86 cm) tl4 17:19 Pain Scale: Adult tl4 Bobby Coma Score: 20:04 Eye Response: spontaneous(4). Motor Response: obeys commands(6). Verbal Response: anita oriented(5). Total: 15. MDM: 17:19 Patient medically screened. anita 20:08 Differential Diagnosis altered mental status. Differential diagnosis: gastritis, GI anita Bleed, non-specific abd pain, pancreatitis, Peptic Ulcer Disease, Ureterolithiasis, urinary tract infection. Data reviewed: vital signs, nurses notes, lab test result(s), EKG, radiologic studies, plain films. Consideration of Admission/Observation Escalation of care including admission/observation considered. I considered the following discharge prescriptions or medication management in the emergency department Medications were administered in the Emergency Department. See MAR. Independent interpretation of the following test(s) in the Emergency Department EKG: See my EKG interpretation above. Test considered but Not performed: CT: NO CT ABD PELVIS. Historians other than the Patient: Parent: MOM, WELL INFORMED. Care significantly affected by the following chronic conditions: Diabetes, Liver Disease, CIRRHOSIS, SPLENOMEGALY, LOW PLATELETS. 07/01 17:34 Order name: Basic Metabolic Panel; Complete Time: 20:13 [facility] 07/01 17:34 Order name: CBC with Diff [facility] 07/01 17:34 Order name: LFT's; Complete Time: 20:13 [facility] 07/01 17:34 Order name: Magnesium; Complete Time: 20:13 [facility] 07/01 17:34 Order name: NT PRO-BNP; Complete Time: 20:13 [facility] 07/01 17:34 Order name: PT-INR; Complete Time: 20:13 [facility] 07/01 17:34 Order name: Troponin HS; Complete Time: 20:13 [facility] 07/01 17:34 Order name: AMMONIA; Complete Time: 20:13 [facility] 07/01 17:34 Order name: Type And Screen; Complete Time: 20:40 [facility] 07/01 21:45 Order name: CBC Smear Scan EDMS 07/01 17:34 Order name: XRAY Chest (1 view); Complete Time: 19:52 [facility] 07/01 17:34 Order name: EKG; Complete Time: 17:35 [facility] 07/01 17:34 Order name: Cardiac monitoring; Complete Time: 19:40 [facility] 07/01 17:34 Order name: EKG - Nurse/Tech; Complete Time: 19:40 [facility] 07/01 17:34 Order name: IV Saline Lock; Complete Time: 19:40 [facility] 07/01 17:34 Order name: Labs collected and sent; Complete Time: 19:40 [facility] 07/01 17:34 Order name: O2 Per Protocol; Complete Time: 19:40 [facility] 07/01 17:34 Order name: O2 Sat Monitoring; Complete Time: 19:40 [facility] EC:04 Rate is 77 beats/min. Rhythm is regular. QRS [place] is Normal. ND interval is normal. QRS anita interval is normal. QT interval is normal. No Q waves. T waves are Normal. No ST changes noted. Clinical impression: NSR w/ Non-specific ST/T Changes and No evidence of ischemia. Interpreted by me. Reviewed by me. Administered Medications: 19:39 Drug: Pantoprazole IVP 40 mg IVP once Route: IVP; Site: right antecubital; jw7 23:09 Follow up: Response: No adverse reaction jw7 20:44 Drug: fentaNYL (PF) IVP 25 mcg IVP once Route: IVP; Site: right antecubital; jw7 23:09 Follow up: Response: No adverse reaction; Marked relief of symptoms jw7 20:44 Drug: Ondansetron IVP 4 mg IVP once; over 2 minutes Route: IVP; Site: right antecubital;jw7 23:09 Follow up: Response: No adverse reaction jw7 20:44 Drug: Rocephin IV 1 grams IV at per protocol once; Given slow IV push per pharmacy jw7 instructions Route: IV; Rate: per protocol; Site: right antecubital; 23:08 Follow up: Response: No adverse reaction; IV Status: Completed infusion; IV Intake: [id number] 22:08 Drug: fentaNYL (PF) IVP 25 mcg IVP once Route: IVP; Site: right antecubital; jw7 23:09 Follow up: Response: No adverse reaction; Marked relief of symptoms jw7 Disposition Summary: 07/01/23 20:13 Transfer Ordered Notes: Transfer Location: [facility] anita Reason: Higher level of care anita Condition: Fair anita Problem: new anita Symptoms: have improved anita Accepting Physician: TO [facility](07/01/23 23:20) jw7 Diagnosis - Anemia, unspecified anita - Other cirrhosis of liver anita - Chronic viral hepatitis C anita - Other ascites - MODERATE TO TENSE anita - Secondary thrombocytopenia - CIRRHOSIS anita - Abnormal coagulation profile anita Forms: - Medication Reconciliation Form anita - SBAR form anita Signatures: Dispatcher [employer] EDLeonard Almeida MD MD cha Waits, Jodi, RN RN jw7 Rodrigo Marvin 4 Corrections: (The following items were deleted from the chart) 20:15 20:13 TO [facility] anita anita 22:11 17:35 Urinalysis+U.LAB.BRZ ordered. EDAK EDMS 23:20 20:15 TO [facility] anita jw7
[2023-07-01 20:16] LABS: Platelets 26 thou/uL (152-406)
[2023-07-01 21:44] LABS: Anisocytosis SLIGHT; Blood Morphology Comment NOTED (NOT SEEN); Platelet Estimate DECR; White Blood Cell Scan OK (OK)
[2023-07-01 21:45] LABS: Polychromasia 1+
[2023-07-02 11:56] VITALS: BP 123/72; TEMP 98.5; O2SAT 100
--- NOTE | 2023-07-03 13:27 | EKG ---
Test Date: 2023-07-01 Test Time: 19:29:02 Mental Health Specialist: ROZINA MEASUREMENT RESULTS: Intervals: Rate: 77 OK: 126 QRSD: 80 QT: 390 QTc: 441 [place]: P: 41 OK: 126 QRS: 79 T: 100 INTERPRETIVE STATEMENTS: Normal sinus rhythm Cannot rule out Anterior infarct, age undetermined Abnormal ECG Compared to ECG 03/10/2023 22:24:42 Myocardial infarct finding now present ST (T wave) deviation no longer present Possible ischemia no longer present Prolonged QT interval no longer present Electronically Signed On 07-03-23 13:23:07 [employer] by Manuel Mojica
== END ==
LOC: ER 17:11
DX: R18.8 Other ascites (principal); D64.9 Anemia, unspecified; K74.69 Other cirrhosis of liver; B18.2 Chronic viral hepatitis C; D69.59 Other secondary thrombocytopenia; R79.1 Abnormal coagulation profile; F17.210 Nicotine dependence, cigarettes, uncomplicated; E11.9 Type 2 diabetes mellitus without complications
CPT/HCPCS: 36415; 71045; 80048; 80076; 82140; 83735; 83880; 84484; 85025; 85610; 86850; 86900; 86901; 93005; C9113; J0696; J2405; J3010